=== PATIENT | male | born 1935 | race Caucasian/White ===

== ENCOUNTER 2022-05-08 09:27 | Outpatient (RCR) | payer MEDICARE, OTHER, SELFPAY | END 2022-05-19 23:59 | disposition home or self-care (01) | LOC: CCIC 09:27 | PROVIDERS: PCP Family Medicine; Visit Provider Internal Medicine Hematology & Oncology | DX: D45 Polycythemia vera (principal); C67.9 Malignant neoplasm of bladder, unspecified | CPT/HCPCS: 99212; 99214 ==

== ENCOUNTER 2022-05-30 08:09 | Outpatient (CLI) | payer MEDICARE, OTHER, SELFPAY ==
[2022-05-30 14:01] LABS: Chloride* 105 mmol/L (96-114)
[2022-05-30 14:02] LABS: Albumin* 3.6 g/dL (3.3-5.0); Potassium* 4.9 mmol/L (3.6-5.1); Sodium* 139 mmol/L (135-149)
[2022-05-30 14:04] LABS: Creatinine* 1.1 mg/dL (0.5-1.5); Estimated Glomerular Filt Rate 66 ml/min
[2022-05-30 14:05] LABS: Alanine Aminotransferase* 25 U/L (4-50); Alkaline Phosphatase* 104 U/L (40-150); Aspartate Amino Transferase* 36 U/L (12-35); Bilirubin Total* 0.4 mg/dL (0.1-1.5); Blood Urea Nitrogen* 37 mg/dL (7-30); Calcium* 8.6 mg/dL (8.4-10.6); Carbon Dioxide* 27 mmol/L (20-32); Glucose* 96 mg/dL (60-115); Lactate Dehydrogenase* 739 U/L (313-618)
== END 2022-05-30 08:10 | disposition home or self-care (01) ==
LOC: LKVREF 08:09
PROVIDERS: PCP Family Medicine; Visit Provider Internal Medicine Hematology & Oncology
DX: D45 Polycythemia vera (principal)
CPT/HCPCS: 80053; 83615

== ENCOUNTER 2022-05-31 08:50 | Outpatient (RCR) | payer MEDICARE, OTHER, SELFPAY ==
--- NOTE | 2022-05-30 13:08 | ONC.NURNOTE ---
Noted Hg 7.[address] Edwards today who saw patient in the clinic recommendation for transfusion discussed lasix as patient is currently on 20 mg daily with notable LE edema, O2 sats in his clinic were 90% at rest, history CHF Dr Edwards recommends that he take his lasix in am before coming in for transfusion and bring in a 2nd dose to take after the transfusion Dr Edwards will be contacting patient about changing his current lasix dose orders entered by Rachael Gavin for transfusion tomorrow and lasix to reflect Dr Lopes recommendation This was called to Miesha and mattie made for tomorrow am instructed to take today's dose of lasix and repeat dose again in am before coming for transfusion and to bring a 2nd dose to take after the transfusion Miesha was informed that she would need to manage the urinary catheters while he is here
[2022-05-31 10:11] VITALS: BP 112/52; PULSE 80; TEMP 36.8
[2022-05-31 11:15] VITALS: BP 117/50; PULSE 73; RESP 16; O2SAT 90
[2022-05-31 11:34] VITALS: BP 135/67; PULSE 71; RESP 16; TEMP 36.9; O2SAT 92
[2022-05-31 11:39] VITALS: BP 119/64; PULSE 71; RESP 16; TEMP 36.9
[2022-05-31 12:24] VITALS: BP 129/71; PULSE 71; RESP 16; TEMP 36.9
[2022-05-31 14:15] VITALS: BP 132/68; PULSE 74; RESP 16; TEMP 36.9
[2022-06-06 21:21] LABS: Basophils Absolute Auto 0.06 K/uL (0.00-0.30); Basophils Percent Auto 0.7 % (0.0-3.0); Eosinophils Absolute Auto 0.17 K/uL (0.00-0.50); Eosinophils Percent Auto 2.1 % (0.0-7.0); Hematocrit 30.2 % (37.0-53.0); Hemoglobin* 8.9 gm/dL (13.5-17.5); Immature Granulocytes Abs Auto 0.06 K/uL (0.00-0.30); Lymphocytes Percent Auto 4.5 % (20-44); Mean Corpuscular HGB Conc 30 gm/dL (32-36); Mean Corpuscular Hemoglobin 32 pg (26-34); Mean Corpuscular Volume 107 fL (80-100); Monocytes Percent Auto 4.9 % (0.0-11.0); Neutrophils Percent Auto 87.1 % (42.0-72.0); Platelet Count* 400 K/uL (140-440); RDW Coefficient of Variation % 18.3 % (11.5-15.5); Red Blood Count 2.82 m/uL (4.30-5.90); White Blood Count* 8.23 K/uL (4.50-11.00)
[2022-06-06 21:26] LABS: Slide Review Reflex Yes
[2022-06-06 21:32] LABS: Slide Review Acceptable Review (Acceptable)
--- NOTE | 2022-06-27 10:00 | ONC.NURNOTE ---
Lab results reviewed by Dr Little and called to Miesha no dose changes in Hydrea Hg stable patient saw Dr Edwards yesterday next lab in [facility] for 4 weeks
[2022-08-21 18:22] LABS: Lactate Dehydrogenase* 715 U/L (313-618)
--- NOTE | 2022-09-16 11:34 | ONC.NURNOTE ---
Oncology Transfer: Miesha reports that hospice is not being pursued at this time Miesha wants Henok to continue to follow with cardiology and oncology and states that Henok is doing well Miesha requests to continue with Dr Little as a [place] provider- they currently see other [place] specialists Due for follow up in October and appt made with Dr Allan- and Miesha was informed that Henok will then see Dr Little when he returns for subsequent appts Hydrea will be monitored and refilled as is currently being done at the [facility]
--- NOTE | 2022-10-25 15:00 | ONC.NURNOTE ---
Noted CBC and other labs (per PCP) drawn today Hg 8.1 today with elevated platelets will review with Dr Allan on Friday regarding platelets and hydrea dose confirmed that Henok continues on 1500 mg hydrea/day Henok has a PCP appt on Friday at [facility]- our office will place order for CBC recheck on Friday to be drawn at clinic if Hg is lower and if Henok is symptomatic- will discuss with [facility] provider to order transfusion
--- NOTE | 2022-10-25 16:01 | PC.NURSE ---
Dr. Edwards called back to [facility] in response to CLARA Oliver's VM. was informed that repeat CBC orders were placed and are due to be drawn at his clinic on 10/29/2022. understands. He did inquire about the UA and who the ordering provider was and what the follow-up was for that. RN shared that Dr. Nely William was the ordering provider. will follow-up on those results. CLARA Oliver will follow-up on CBC results next week.
--- NOTE | 2022-10-29 11:21 | ONC.NURNOTE ---
CBC results noted Credit Rating Checker spoke to Miesha: Henok's fatigue has improved since starting on antibiotics on Friday, he does not have any SOB was seen by Dr Edwards today platelets noted will discuss w/provider next lab draw to monitor plts and hg confirmed taking 3 hydrea daily takes a low dose ASA daily will be out of town 11/09/22-11/17/22 Jerry appt 11/19/22
== END 2022-11-27 23:59 | disposition home or self-care (01) ==
LOC: CCIC 08:50
PROVIDERS: PCP Family Medicine; Visit Provider Internal Medicine Hematology & Oncology
DX: D45 Polycythemia vera (principal)
CPT/HCPCS: 36415; 36430; 80048; 83615; 83880; 84439; 84443; 85025; 86850; 86900; 86901; 86922; P9016

== ENCOUNTER 2022-06-06 11:20 | Outpatient (CLI) | payer MEDICARE, OTHER, SELFPAY ==
[2022-06-06 14:00] LABS: Chloride* 99 mmol/L (96-114)
[2022-06-06 14:01] LABS: Potassium* 4.6 mmol/L (3.6-5.1); Sodium* 136 mmol/L (135-149)
[2022-06-06 14:03] LABS: Estimated Glomerular Filt Rate 74 ml/min
[2022-06-06 14:04] LABS: Blood Urea Nitrogen* 29 mg/dL (7-30); Calcium* 8.5 mg/dL (8.4-10.6); Carbon Dioxide* 30 mmol/L (20-32); Glucose* 152 mg/dL (60-115)
== END 2022-06-06 11:21 | disposition home or self-care (01) ==
LOC: LKVREF 11:20
PROVIDERS: PCP Family Medicine; Visit Provider Family Medicine
DX: N18.31 Chronic kidney disease, stage 3a (principal); I50.40 Unspecified combined systolic (congestive) and diastolic (congestive) heart failure; D64.9 Anemia, unspecified
CPT/HCPCS: 80048

== ENCOUNTER 2022-06-19 13:45 | Emergency (ER) | payer MEDICARE, OTHER, SELFPAY ==
[2022-06-19 14:01] VITALS: BP 123/68; PULSE 74; RESP 18; TEMP 36.8; O2SAT 96
--- NOTE | 2022-06-19 14:16 | ED_ITS ---
HPI - General Adult General Time Seen by Provider: 14:16 Date Seen: 06/19/22 Chief complaint: Urogenital Problems, Male Stated complaint: Swollen Penis w Neph Bag Time Seen by Provider: 06/19/22 13:49 Source: patient and family Mode of arrival: ambulatory History of Present Illness HPI narrative: Henok is a 87-year-old male from home past medical history includes recent diagnosis of bladder cancer status post radiation and Villarreal placement, heart failure with preserved ejection fraction, chronic kidney disease stage 3, hypertension diabetes mellitus, polycythemia vera presents emerged department with with a urogenital problem. According to patient and patient had a Villarreal catheter placed last February and was removed on May 20, since then has catheterized him every 6-7 hours, she usually gets 200-300 mL of urine. Patient had a cystoscopy last Friday at [facility], they had a difficulty time forming the cystoscopy and were unable to complete. Patient has had increasing worsening lower extremity edema swelling around the scrotum and penis area. Per she states that it is getting difficult to retract his foreskin due to the edema. She is still able to catheterize him. Swelling is worse during the evening gets better in the morning. Usually takes Lasix 40 mg orally daily. Unsure when his last echocardiogram was. Patient states that his breathing has been stable, he denies any orthopnea, chest pain or shortness of breath. Patient and for concern due to the increasing edema. Related Data Home Medications Medication Instructions Recorded Confirmed acetaminophen 325 mg tablet mg PO PRN 05/08/22 05/08/22 acetaminophen 650 mg 1,300 mg PO BID 05/08/22 05/08/22 tablet,extended release amlodipine 2.5 mg tablet mg PO DAILY 05/08/22 05/08/22 aspirin 81 mg tablet,delayed 81 mg PO QDAY 05/08/22 05/08/22 release (Adult Aspirin Regimen) bupropion HCl 300 mg 24 hr tablet, 300 mg PO DAILY 05/08/22 05/08/22 extended release cholecalciferol (vitamin D3) 50 2,000 unit PO .Every 48 Hours 05/08/22 05/08/22 mcg (2,000 unit) tablet glipizide 10 mg tablet, extended 10 mg PO DAILY 05/08/22 05/08/22 release 24 hr hydroxyurea 500 mg capsule (Hydrea) 1,500 mg PO QDAY 05/08/22 05/08/22 nitroglycerin 0.4 mg sublingual 0.4 mg sublingual PRN 05/08/22 05/08/22 tablet omeprazole 20 mg tablet,delayed 20 mg PO QDAY 05/08/22 05/08/22 release Previous Rx's Medication Instructions Recorded furosemide 20 mg tablet 20 mg PO BID #60 tabs 05/31/22 Allergies Allergy/AdvReac Type Severity Reaction Status Date / Time penicillin V Allergy Unknown Verified 05/30/22 07:56 Beta Best AdvReac Intermediate Bradycardia Uncoded 05/30/22 07:56 Review of Systems Status of ROS: Reports: 10 or more systems reviewed and unremarkable except as noted in History and below [facility] Medical History (Updated 06/19/22 @ 16:24 by Agustin Howard MD) Anemia Back pain Bladder cancer CHF (congestive heart failure) Diabetes Hypertension Polycythemia vera Social History Smoking Status: Never smoker How often do you have a drink containing alcohol: monthly or less AUDIT-C Alcohol total score: 1 Non-prescribed substance use: denies use Exam Narrative: Exam Narrative: General: No obvious distress HEENT: Pupils equal round and reactive to light, no periorbital edema Neck: Supple, no JVD : Lungs mild bibasilar crackles, otherwise normal Heart: Normal sinus rhythm S1-S2 Abdomen: Mildly distended in the lower abdomen, bowel sounds present nontender to palpation, no fluid wave Left flank: Nephrostomy bag in place, draining clear urine Muscle skeletal: +3 pitting edema from his feet to his hips bilateral Urogenital: Increased circumferential edema of the says prepuce, able to retract the foreskin, glans penis normal Scrotum normal Neuro: Alert awake and oriented x3 Const: Vital Signs, click to edit/add: Vital Signs - 24 hr 06/19/22 14:01 06/19/22 15:03 06/19/22 15:15 Temperature 98.2 F Pulse Rate [Right Pulse Oximeter] 74 75 Respiratory Rate 18 24 Blood Pressure [Ri ght Upper Arm] 123/68 137/84 Pulse Oximetry 96 88 96 Oxygen Delivery Me thod Room Air Room Air Nasal Cannula Course Course Hospital Course: 2:30 PM: AIDET performed. Workup will include IV peripheral, CBC, CMP, NT proBNP, XR chest PA and lateral, 20 mg IV Lasix, to look for more worsening heart failure and fluid retention causing his symptoms. Patient and in agreement. No signs of any paraphimosis, symptoms likely due to increased peripheral edema secondary to heart failure. Reevaluation(s) Reevaluation #1: Patient and were updated on his imaging, urinalysis and lab results. XR chest PA and lateral did not show any acute cardiopulmonary process. This was read by myself, hemoglobin stable at 8.0, creatinine normal at 1.0, metabolic panel otherwise unchanged from previous, sodium mildly low at 131. NT proBNP elevated at 4740, consistent with his worsening peripheral edema. He was given IV diuresis 20 mg Lasix and did well, he had good urinary output, his symptoms improved, plan to discharge, followup appointment was made with his primary care provider on 06/21, plan to increase his Lasix 40 mg b.i.d. until that time. Patient's urinalysis was pending, reasons to return were given. vitals were stable on discharge. Time: 16:25 Vital Signs Vital signs: Initial Vital Signs Temperature 98.2 F 06/19/22 14:01 Temperature Source Temporal Artery Scan 06/19/22 14:01 Pulse Rate 74 06/19/22 14:01 Respiratory Rate 18 06/19/22 14:01 Blood Pressure 123/68 06/19/22 14:01 Blood Pressure Mean 86 06/19/22 14:01 Blood Pressure Position Sitting 06/19/22 14:01 Pulse Oximetry 96 06/19/22 14:01 Oxygen Delivery Method 06/19/22 14:01 Vital Signs Temperature 98.2 F 06/19/22 14:01 Pulse Rate 74 06/19/22 14:01 Respiratory Rate 18 06/19/22 14:01 Blood Pressure 123/68 06/19/22 14:01 Pulse Oximetry 96 06/19/22 14:01 Oxygen Delivery Method 06/19/22 14:01 Temperature 98.2 F 06/19/22 14:01 Pulse Rate 75 06/19/22 15:03 Respiratory Rate 24 06/19/22 15:03 Blood Pressure 137/84 06/19/22 15:03 Pulse Oximetry 96 06/19/22 15:15 Oxygen Delivery Method 06/19/22 15:15 Medical Decision Making Lab Data Labs: Lab Results 06/19/22 06/19/22 06/19/22 Range/Units 14:26 14:26 16:05 WBC 7.30 (4.50-11.00) K/uL RBC 2.62 L (4.30-5.90) m/uL Hgb 8.0 L (13.5-17.5) gm/dL Hct 27.2 L (37.0-53.0) % MCV 104 H (80-100) fL MCH 31 (26-34) pg MCHC 29 L (32-36) gm/dL RDW Coeff of Christel 18.0 H (11.5-15.5) % Plt Count 405 (140-440) K/uL Neut % (Auto) 90.2 H (42.0-72.0) % Lymph % (Auto) 3.3 L (20-44) % [place] % (Auto) 3.8 (0.0-11.0) % Eos % (Auto) 1.2 (0.0-7.0) % Baso % (Auto) 0.5 (0.0-3.0) % Neut # (Auto) 6.60 (1.7-7.0) K/uL Lymph # (Auto) 0.20 L (0.90-2.90) K/uL [place] # (Auto) 0.30 (0.00-0.90) K/UL Eos # (Auto) 0.09 (0.00-0.50) K/uL Baso # (Auto) 0.04 (0.00-0.30) K/uL Abs Immat Gran (auto) 0.07 (0.00-0.30) K/uL Sodium 131 L (135-149) mmol/L Potassium 4.6 (3.6-5.1) mmol/L Chloride 98 (96-114) mmol/L Carbon Dioxide 26 (20-32) mmol/L BUN 34 H (7-30) mg/dL Creatinine 1.0 (0.5-1.5) mg/dL Estimated GFR 74 ml/min Glucose 166 H (60-115) mg/dL Calcium 8.2 L (8.4-10.6) mg/dL Total Bilirubin 0.6 (0.1-1.5) mg/dL AST 26 (12-35) U/L ALT 20 (4-50) U/L Alkaline Phosphatase 115 (40-150) U/L NT-Pro-B Natriuret Pep 4740 H (0-450) PG/mL Total Protein 5.9 L (6.0-8.3) g/dL Albumin 3.3 (3.3-5.0) g/dL Urine Color Yellow (Yellow) Urine Appearance Cloudy A (Clear) Urine pH 6.0 (5.0-8.5) Ur Specific [place] 1.015 (1.000-1.030) Urine Protein 1+ A (Negative) Urine Glucose (UA) Negative (Negative) Urine Ketones Negative (Negative) Urine Blood 1+ A (Negative) Urine Nitrite Negative (Negative) Urine Bilirubin Negative (Negative) Urine Urobilinogen 0.2 (0.2-1.0) Ur Leukocyte Esterase 1+ A (Negative) Urine RBC 2-5 A (0-2) Urine WBC 2-5 (0-5) Ur Squamous Epith Cells Few (None-Few) Urine Bacteria Few A (None) Discharge Plan Discharge Clinical Impression: Edema of penis, Bilateral edema of lower extremity, History of CHF (congestive heart failure) Patient Disposition: Home, Self-Care Condition: Improved Instructions: Edema (ED) Additional Instructions: Follow up appointment scheduled at the [facility] on 06/21 with a 9:30am arrival time. To take Lasix 40 mg twice daily until follow up appointment. Activity Level: Activity as Tolerated Prescriptions: No Action nitroglycerin 0.4 mg tablet, sublingual 0.4 mg sublingual PRN hydroxyurea [Hydrea] 500 mg capsule 1,500 mg PO QDAY cholecalciferol (vitamin D3) 50 mcg (2,000 unit) tablet 2,000 unit PO .Every 48 Hours Rx Instructions: EVERY OTHER DAY acetaminophen 650 mg tablet extended release 1,300 mg PO BID omeprazole 20 mg tablet,delayed release (DR/EC) 20 mg PO QDAY aspirin [Adult Aspirin Regimen] 81 mg tablet,delayed release (DR/EC) 81 mg PO QDAY acetaminophen 325 mg tablet PO PRN bupropion HCl 300 mg tablet extended release 24 hr 300 mg PO DAILY amlodipine 2.5 mg tablet PO DAILY glipizide 10 mg tablet extended release 24hr 10 mg PO DAILY furosemide 20 mg tablet 20 mg PO BID Qty: 60 1RF Follow Up/Referrals: Slava Edwards MD [Primary Care Provider] - Stand Alone Forms: [employer] Info Instructions
--- NOTE | 2022-06-19 14:17 | CRLHL7_ITS ---
For Patients: As a result of the Century Cures Act, medical imaging exams and procedure reports are released immediately into your electronic medical record. You may view this report before your referring provider. If you have questions, please contact your health care provider. INDICATION: Worsening heart failure and edema COMPARISON: There are no prior studies for comparison TECHNIQUE: Two views of the chest were acquired FINDINGS: TUBES AND LINES: None. HEART AND MEDIASTINUM: Top normal size cardiac silhouette. LUNGS AND PLEURAL SPACES: No evidence of heart failure. Linear opacities in the right midlung and right base favor atelectasis or scarring over an acute inflammatory process.Probable chronic pleural thickening at the right base. OSSEOUS STRUCTURES: Age-appropriate appearance. No acute focal finding. IMPRESSION: No evidence of heart failure. Opacities in the right midlung and right base favor atelectasis or scarring over an acute inflammatory process. Dictated by Bassam Adams MD @ 06/19/2022 2:49:24 PM (Electronically Signed)
[2022-06-19 14:42] LABS: Basophils Absolute Auto 0.04 K/uL (0.00-0.30); Basophils Percent Auto 0.5 % (0.0-3.0); Eosinophils Absolute Auto 0.09 K/uL (0.00-0.50); Eosinophils Percent Auto 1.2 % (0.0-7.0); Hematocrit 27.2 % (37.0-53.0); Immature Granulocytes Abs Auto 0.07 K/uL (0.00-0.30); Lymphocytes Percent Auto 3.3 % (20-44); Mean Corpuscular HGB Conc 29 gm/dL (32-36); Mean Corpuscular Hemoglobin 31 pg (26-34); Mean Corpuscular Volume 104 fL (80-100); Monocytes Percent Auto 3.8 % (0.0-11.0); Neutrophils Percent Auto 90.2 % (42.0-72.0); Platelet Count* 405 K/uL (140-440); Red Blood Count 2.62 m/uL (4.30-5.90)
[2022-06-19 14:48] LABS: Slide Review Reflex No
[2022-06-19] MEDS: FUROSEMIDE 10 MG/ML inj 20 MG IVP (14:53)
[2022-06-19 15:03] VITALS: BP 137/84; PULSE 75; RESP 24; O2SAT 88
[2022-06-19 15:14] LABS: Albumin* 3.3 g/dL (3.3-5.0); Chloride* 98 mmol/L (96-114); Potassium* 4.6 mmol/L (3.6-5.1); Sodium* 131 mmol/L (135-149)
[2022-06-19 15:15] VITALS: O2SAT 96
[2022-06-19 15:16] LABS: Estimated Glomerular Filt Rate 74 ml/min
[2022-06-19 15:17] LABS: Alanine Aminotransferase* 20 U/L (4-50); Alkaline Phosphatase* 115 U/L (40-150); Aspartate Amino Transferase* 26 U/L (12-35); Bilirubin Total* 0.6 mg/dL (0.1-1.5); Blood Urea Nitrogen* 34 mg/dL (7-30); Carbon Dioxide* 26 mmol/L (20-32); Glucose* 166 mg/dL (60-115); Total Protein* 5.9 g/dL (6.0-8.3)
[2022-06-19 15:18] LABS: Calcium* 8.2 mg/dL (8.4-10.6)
[2022-06-19 15:26] LABS: NT Pro B Type NatriureticPept* 4740 PG/mL (0-450)
--- NOTE | 2022-06-19 15:53 | ED.NURSE ---
pt up to br via wheelchair. pt had bm. did say he peed a small amount but did not get sample. states he does not feel like he needs to be cathed at this time.
--- NOTE | 2022-06-19 15:56 | ED.NURSE ---
1515: pt o2 sats 86-88% RA. states pt has o2 at home but only uses it when he is sob. pt denies sob, pt placed on 1 L o2, sats 96%. pt heartrate decreased to 30's, placed on heart monitor and shows bigemeny. then returned to sr 70's. states it does that. pt asymptomatic. dr. william updated.
--- NOTE | 2022-06-19 16:13 | ED.NURSE ---
Pt voided approx 100mLs into urinal. UA sent to lab.
[2022-06-19 16:21] LABS: Appearance Urine Cloudy (Clear); Bilirubin Urine Negative (Negative); Blood Urine 1+ (Negative); Color Urine Yellow (Yellow); Glucose Urine Negative (Negative); Ketones Urine Negative (Negative); Leukocyte Esterase Urine 1+ (Negative); Nitrite Urine Negative (Negative); Protein Urine 1+ (Negative); Specific Gravity Urine 1.015 (1.000-1.030); Urobilinogen Urine 0.2 (0.2-1.0)
--- NOTE | 2022-06-19 16:34 | ED.NURSE ---
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 states that is getting worse. unable to get 15 FR cath in pt. 12 FR used for 300 cc clear yellow urine. per swelling in penis has improved, no difficulty pushing foreskin back which was having difficulty with.
[2022-06-19 16:35] VITALS: BP 129/78; PULSE 102; O2SAT 90
[2022-06-19 16:39] LABS: Bacteria Urine Few; Squamous Epithelial Cell Urine Few (None-Few)
== END 2022-06-19 16:41 | disposition home or self-care (01) ==
PROVIDERS: Emergency Provider Student in an Organized Health Care Education/Training Program; PCP Family Medicine
DX: N48.89 Other specified disorders of penis (principal); R60.0 Localized edema
CPT/HCPCS: 36415; 71046; 80053; 81003; 81015; 83880; 85025; 87086; 87186; 96374; 99283; 99284; J1940

== ENCOUNTER 2022-06-21 10:05 | Outpatient (CLI) | payer MEDICARE, OTHER, SELFPAY ==
[2022-06-21 14:40] LABS: Chloride* 100 mmol/L (96-114)
[2022-06-21 14:41] LABS: Potassium* 4.5 mmol/L (3.6-5.1); Sodium* 137 mmol/L (135-149)
[2022-06-21 14:43] LABS: Estimated Glomerular Filt Rate 74 ml/min
[2022-06-21 14:44] LABS: Blood Urea Nitrogen* 30 mg/dL (7-30); Calcium* 8.4 mg/dL (8.4-10.6); Carbon Dioxide* 30 mmol/L (20-32); Glucose* 183 mg/dL (60-115)
== END 2022-06-21 10:06 | disposition home or self-care (01) ==
PROVIDERS: PCP Family Medicine; Visit Provider Family Medicine
DX: N39.0 Urinary tract infection, site not specified (principal); I13.0 Hypertensive heart and chronic kidney disease with heart failure and stage 1 through stage 4 chronic kidney disease, or unspecified chronic kidney disease; I50.9 Heart failure, unspecified; N17.9 Acute kidney failure, unspecified; N18.9 Chronic kidney disease, unspecified; D64.9 Anemia, unspecified; E87.1 Hypo-osmolality and hyponatremia; E11.22 Type 2 diabetes mellitus with diabetic chronic kidney disease
CPT/HCPCS: 80048; 87086

== ENCOUNTER 2022-06-27 21:09 | Emergency (ER) | payer MEDICARE, OTHER, SELFPAY ==
[2022-06-27 21:19] VITALS: BP 129/68; PULSE 75; RESP 18; TEMP 37.2; O2SAT 92; BMI 25.4
--- NOTE | 2022-06-27 21:41 | ED.GENADULT ---
HPI - General Adult General Chief complaint: Extremity Pain/Injury, Lower Stated complaint: Groin/leg pain Time Seen by Provider: 06/27/22 21:17 History of Present Illness HPI narrative: This 87-year-old male comes in reporting pain in his left upper in her thigh. This was mild yesterday and he awoke at 4:00 a.m. this morning with rather severe pain. He took methocarbamol and symptoms improved. He ambulated throughout the day with persistent pain but not very intense. Now as evening as coming his pain is intensified. He does not have any injury event or strenuous activity to bring this about. 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 He had radiation in this tumor is shrunk and the flow of urine is restored. He does self-catheterize but denies having any dysuria symptoms. He does not have any abdominal pain or flank pain. He does not report any fevers. Related Data Home Medications Medication Instructions Recorded Confirmed acetaminophen 325 mg tablet mg PO PRN 05/08/22 06/21/22 acetaminophen 650 mg 1,300 mg PO BID 05/08/22 06/27/22 tablet,extended release amlodipine 2.5 mg tablet mg PO DAILY 05/08/22 06/21/22 aspirin 81 mg tablet,delayed 81 mg PO QDAY 05/08/22 06/27/22 release (Adult Aspirin Regimen) bupropion HCl 300 mg 24 hr tablet, 300 mg PO DAILY 05/08/22 06/27/22 extended release cholecalciferol (vitamin D3) 50 2,000 unit PO .Every 48 Hours 05/08/22 06/27/22 mcg (2,000 unit) tablet glipizide 10 mg tablet, extended 10 mg PO DAILY 05/08/22 06/27/22 release 24 hr hydroxyurea 500 mg capsule (Hydrea) 1,500 mg PO QDAY 05/08/22 06/27/22 nitroglycerin 0.4 mg sublingual 0.4 mg sublingual PRN 05/08/22 06/21/22 tablet omeprazole 20 mg tablet,delayed 20 mg PO QDAY 05/08/22 06/27/22 release furosemide 40 mg tablet 40 mg PO BID 06/21/22 06/27/22 finasteride 5 mg tablet mg 06/27/22 methocarbamol 500 mg tablet mg 06/27/22 tamsulosin 0.4 mg capsule mg PO 06/27/22 Previous Rx's Medication Instructions Recorded furosemide 20 mg tablet 20 mg PO BID #60 tabs 05/31/22 sulfamethoxazole 800 1 tab PO BID #14 tabs 06/21/22 mg-trimethoprim 160 mg tablet (Bactrim DS) Allergies Allergy/AdvReac Type Severity Reaction Status Date / Time penicillin V Allergy Unknown Verified 06/27/22 21:22 Beta Best AdvReac Intermediate Bradycardia Uncoded 06/21/22 09:37 Review of Systems Status of ROS: Reports: 10 or more systems reviewed and unremarkable except as noted in History and below Narrative: Constitutional: No fevers, no weight gain or loss. Eyes: No discharge. No vision changes. HENT: No congestion, no sore throat, no ear pain. Cardiovascular: No chest pain, no palpitations. Respiratory: No shortness of breath, no wheezes, no cough. Gastrointestinal: No abdominal pain, no vomiting, no diarrhea. Genitourinary: No dysuria, no hematuria. Musculoskeletal: Normal range of motion. Pain is located in the musculature of the adductors of the left upper leg. Skin: No rashes, no pruritis. Neurological: No dizziness, weakness, sensory change, speech change. Endo/Heme/Allergies: No bruising or bleeding. No polydipsia. Pysch: no suicidality, no anxiety, no insomnia. All other systems reviewed and are negative. [facility] Medical History (Updated 06/27/22 @ 21:50 by Mike Vega MD) Anemia Back pain Bladder cancer CHF (congestive heart failure) Diabetes Hypertension Polycythemia vera Social History Smoking Status: Never smoker How often do you have a drink containing alcohol: monthly or less AUDIT-C Alcohol total score: 1 Non-prescribed substance use: denies use Exam Narrative: Exam Narrative: Constitutional: Well-developed, well-nourished, no acute distress. HEENT: Normocephalic, atraumatic. Neck: Normal range of motion. Nontender. Supple. Heart: Regular. No murmurs. Normal rate. Intact distal pulses. Lungs: Clear to auscultation. No chest discomfort. No wheezes, rhonchi, or rales. Abdomen: Normal bowel sounds. Nontender. No rebound tenderness. No tenderness when palpating over the low abdomen. Genitalia: Deferred. Back: No midline tenderness. Normal range of motion. Extremities: Normal range of motion. No sign of injury. No leg swelling. Tenderness when palpating in the abductors of the left upper leg. No pain or swelling in the inguinal region. Skin: Intact. No rash. Warm. No erythema or pallor. Neurologic: No altered sensation. No weakness. Alert and oriented. Psychiatric: No suicidality. No anxiety or depression. No insomnia. Nursing notes and vitals signs are reviewed. Const: Vital Signs, click to edit/add: Vital Signs - 24 hr 06/27/22 21:19 Temperature 98.9 F Pulse Rate [Right Pulse Oximeter] 75 Respiratory Rate 18 Blood Pressure [Le ft Upper Arm] 129/68 Pulse Oximetry 92 Oxygen Delivery Me thod Room Air Course Vital Signs Vital signs: Initial Vital Signs Temperature 98.9 F 06/27/22 21:19 Temperature Source Temporal Artery Scan 06/27/22 21:19 Pulse Rate 75 06/27/22 21:19 Respiratory Rate 18 06/27/22 21:19 Blood Pressure 129/68 06/27/22 21:19 Blood Pressure Mean 88 06/27/22 21:19 Blood Pressure Position Supine 06/27/22 21:19 Pulse Oximetry 92 06/27/22 21:19 Oxygen Delivery Method 06/27/22 21:19 Vital Signs Temperature 98.9 F 06/27/22 21:19 Pulse Rate 75 06/27/22 21:19 Respiratory Rate 18 06/27/22 21:19 Blood Pressure 129/68 06/27/22 21:19 Pulse Oximetry 92 06/27/22 21:19 Oxygen Delivery Method 06/27/22 21:19 Temperature 98.9 F 06/27/22 21:19 Pulse Rate 75 06/27/22 21:19 Respiratory Rate 18 06/27/22 21:19 Blood Pressure 129/68 06/27/22 21:19 Pulse Oximetry 92 06/27/22 21:19 Oxygen Delivery Method 06/27/22 21:19 Medical Decision Making MDM Narrative Medical decision making narrative: This patient comes in with pain in the musculature of his left upper leg as described above. He does not have any flank pain or abdominal pain. He does not have any signs of dysuria. There was no particular injury event or strenuous activity to bring this about. He is not exhibiting signs or symptoms suspicious for a blood clot. He is not on any anticoagulants. I discussed lab and imaging options with the patient and his and in a process of shared decision making these were declined. He did receive a intramuscular injection of morphine 10 mg. I did also provide a prescription for [place] tablets. I describe signs and symptoms that would indicate a need for return and re-evaluation. Discharge Plan Discharge Clinical Impression: Left leg pain Patient Disposition: Home, Self-Care Condition: Stable Additional Instructions: Take medication as needed and indicated. Follow up with MD or return if persistent or worsening symptoms happen. Prescriptions: No Action nitroglycerin 0.4 mg tablet, sublingual 0.4 mg sublingual PRN hydroxyurea [Hydrea] 500 mg capsule 1,500 mg PO QDAY cholecalciferol (vitamin D3) 50 mcg (2,000 unit) tablet 2,000 unit PO .Every 48 Hours Rx Instructions: EVERY OTHER DAY acetaminophen 650 mg tablet extended release 1,300 mg PO BID omeprazole 20 mg tablet,delayed release (DR/EC) 20 mg PO QDAY aspirin [Adult Aspirin Regimen] 81 mg tablet,delayed release (DR/EC) 81 mg PO QDAY acetaminophen 325 mg tablet PO PRN bupropion HCl 300 mg tablet extended release 24 hr 300 mg PO DAILY amlodipine 2.5 mg tablet PO DAILY glipizide 10 mg tablet extended release 24hr 10 mg PO DAILY furosemide 40 mg tablet 40 mg PO BID sulfamethoxazole-trimethoprim [Bactrim DS] 800-160 mg tablet 1 tab PO BID Qty: 14 0RF methocarbamol 500 mg tablet Label Comments: TAKE 1 TABLET BY MOUTH 4 TIMES DAILY NEEDED tamsulosin 0.4 mg capsule PO Label Comments: TAKE 1 CAPSULE BY MOUTH ONCE DAILY finasteride 5 mg tablet Label Comments: TAKE 1 TABLET BY MOUTH ONCE DAILY furosemide 20 mg tablet 20 mg PO BID Qty: 60 1RF Follow Up/Referrals: Slava Edwards MD [Primary Care Provider] - Stand Alone [email or web address] Info Instructions
[2022-06-27] MEDS: MORPHINE 10 MG/ML inj IM (21:48)
[2022-06-27 22:00] VITALS: BP 124/66
== END 2022-06-27 22:30 | disposition home or self-care (01) ==
PROVIDERS: Emergency Provider Emergency Medicine Emergency Medical Services; PCP Family Medicine
DX: M79.652 Pain in left thigh (principal)
CPT/HCPCS: 96372; 99283; 99284; J2270

== ENCOUNTER 2022-07-12 10:10 | Outpatient (CLI) | payer MEDICARE, SELFPAY ==
[2022-07-12 12:40] LABS: Chloride* 102 mmol/L (96-114); Sodium* 136 mmol/L (135-149)
[2022-07-12 12:43] LABS: Blood Urea Nitrogen* 31 mg/dL (7-30); Carbon Dioxide* 27 mmol/L (20-32); Estimated Glomerular Filt Rate 74 ml/min
[2022-07-12 12:44] LABS: Calcium* 8.6 mg/dL (8.4-10.6); Glucose* 205 mg/dL (60-115)
[2022-07-16 09:44] LABS: Lactate Dehydrogenase* 653 U/L (313-618)
== END 2022-07-12 10:11 | disposition home or self-care (01) ==
LOC: LKVREF 10:12
PROVIDERS: PCP Family Medicine; Visit Provider Family Medicine
DX: E87.1 Hypo-osmolality and hyponatremia (principal); E87.5 Hyperkalemia; I10 Essential (primary) hypertension; N17.9 Acute kidney failure, unspecified; N18.9 Chronic kidney disease, unspecified
CPT/HCPCS: 80048; 83615

== ENCOUNTER 2022-07-31 10:07 | Inpatient (IN) | payer MEDICARE, OTHER, SELFPAY ==
[2022-07-31] VITALS (23 sets, daily range): BP systolic 78–124; BP diastolic 55–106; PULSE 35–82; RESP 16–25; TEMP 36.2–36.7; O2SAT 23–96; BMI 25.4; BMI 27.5
--- NOTE | 2022-07-31 11:03 | ED.GENADULT ---
HPI - General Adult General Time Seen by Provider: 11:04 Date Seen: 07/31/22 Chief complaint: Arrhythmia/Palpitations Stated complaint: Low heartrate Time Seen by Provider: 07/31/22 11:00 Source: patient and RN notes reviewed Mode of arrival: ambulatory Limitations: no limitations History of Present Illness HPI narrative: Patient is an 87-year-old male that was nauseated, short of breath and a low pulse in the 20s to 30s since yesterday. His states that the been having problems with his heart not functioning well and his pulse going anywhere from low to high. She believes this is a complication of the COVID vaccination. She reports he had COVID infection in November and was hospitalized here. They discovered bladder cancer during that hospitalization. He was treated with radiation at [facility] in February for this. He did go home in November with supplemental oxygen after COVID but really has not had to use it since February. He is on Lasix daily, she will sometimes give him an extra 20 mg tablets when she starts notice seen fluid development in the scrotum and penis. She states she started to notice that today. He was complaining of being more short of breath today, noticed seen fluid overload and then stated his stomach did not feel as well. This bothered her. He has had no vomiting. He denies any abdominal pain. He admits that he is feeling short of breath today. At home his pulse was in the 20s and his oxygen was in the 80s. He is in the low 80s to mid 80s on oximetry on arrival here. Denies any chest pain. Related Data Home Medications Medication Instructions Recorded Confirmed acetaminophen 325 mg tablet 650 mg PO PRN 05/08/22 07/15/22 acetaminophen 650 mg 1,300 mg PO BID 05/08/22 07/15/22 tablet,extended release amlodipine 2.5 mg tablet 2.5 mg PO DAILY 05/08/22 07/31/22 aspirin 81 mg tablet,delayed 81 mg PO QDAY 05/08/22 07/31/22 release (Adult Aspirin Regimen) bupropion HCl 300 mg 24 hr tablet, 300 mg PO DAILY 05/08/22 07/31/22 extended release cholecalciferol (vitamin D3) 50 2,000 unit PO .Every 48 Hours 05/08/22 07/31/22 mcg (2,000 unit) tablet glipizide 10 mg tablet, extended 10 mg PO DAILY 05/08/22 07/31/22 release 24 hr nitroglycerin 0.4 mg sublingual 0.4 mg sublingual PRN 05/08/22 07/15/22 tablet omeprazole 20 mg tablet,delayed 20 mg PO QDAY 05/08/22 07/15/22 release finasteride 5 mg tablet 5 mg 06/27/22 07/15/22 methocarbamol 500 mg tablet mg 06/27/22 07/15/22 tamsulosin 0.4 mg capsule 0.4 mg PO 06/27/22 07/15/22 Previous Rx's Medication Instructions Recorded furosemide 20 mg tablet 20 mg PO BID #60 tabs 07/15/22 hydroxyurea 500 mg capsule (Hydrea) 1,500 mg PO QDAY #300 caps 07/17/22 Allergies Allergy/AdvReac Type Severity Reaction Status Date / Time penicillin V Allergy Unknown Verified 07/31/22 10:38 Beta Best AdvReac Intermediate Bradycardia Uncoded 07/15/22 10:49 Review of Systems Status of ROS: Reports: 10 or more systems reviewed and unremarkable except as noted in History and below [facility] Medical History Anemia Back pain Bladder cancer CHF (congestive heart failure) 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 Depression (08/29/11) Diabetes Gout Hearing loss (08/29/11) Hydronephrosis of left kidney Hypertension Hyponatremia Ischemic cardiomyopathy Left hand paresthesia Lightheadedness Major depressive disorder in partial remission Mass of urinary bladder 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 Sundowning Type 2 diabetes mellitus Unsteady gait UTI (urinary tract infection) Wide-complex tachycardia Social History Highest level of school completed/degree received: 12th grade, no diploma Smoking Status: Never smoker Do you use any of these nicotine containing products: None Second hand tobacco smoke exposure: No How often do you have a drink containing alcohol: monthly or less How many standard drinks containing alcohol do you have on a typical day: 1 or 2 How often do you have six or more drinks on one occasion: Never AUDIT-C Alcohol total score: 1 Non-prescribed substance use: denies use Caffeine: Yes (1 pop) service: No Exam Const: Vital Signs, click to edit/add: Vital Signs - 24 hr 07/31/22 11:15 07/31/22 11:30 07/31/22 11:45 Temperature Pulse Rate [Right Pulse Oximeter] 79 73 Pulse Rate [Right Radial] Respiratory Rate 24 23 Blood Pressure [Ri ght Arm] Blood Pressure [Ri ght Upper Arm] 96/70 119/60 Pulse Oximetry 84 L 94 23 L Oxygen Delivery Me thod Room Air Room Air 07/31/22 12:00 07/31/22 12:38 07/31/22 12:50 Temperature Pulse Rate [Right Pulse Oximeter] 82 80 80 Pulse Rate [Right Radial] Respiratory Rate 22 22 21 Blood Pressure [Ri ght Arm] Blood Pressure [Ri ght Upper Arm] 113/55 L 122/106 H 119/74 Pulse Oximetry 95 80 L 95 Oxygen Delivery Me thod Room Air Room Air Room Air 07/31/22 13:00 07/31/22 13:07 07/31/22 16:22 Temperature 97.2 F L Pulse Rate [Right Pulse Oximeter] 78 71 Pulse Rate [Right Radial] 39 L Respiratory Rate 25 H 22 22 Blood Pressure [Ri ght Arm] 124/65 Blood Pressure [Ri ght Upper Arm] 78/58 L 115/62 Pulse Oximetry 96 95 95 Oxygen Delivery Me thod Room Air Room Air Room Air 07/31/22 13:30 07/31/22 14:00 07/31/22 14:30 Temperature Pulse Rate [Right Pulse Oximeter] 38 L 78 39 L Pulse Rate [Right Radial] Respiratory Rate 22 22 Blood Pressure [Ri ght Arm] Blood Pressure [Ri ght Upper Arm] 107/91 H 114/87 122/94 H Pulse Oximetry 95 93 95 Oxygen Delivery Me thod 07/31/22 15:00 07/31/22 16:55 07/31/22 17:00 Temperature Pulse Rate [Right Pulse Oximeter] 38 L Pulse Rate [Right Radial] Respiratory Rate 20 22 Blood Pressure [Ri ght Arm] Blood Pressure [Ri ght Upper Arm] 120/70 Pulse Oximetry 92 95 95 Oxygen Delivery Me thod Room Air Documenting provider has reviewed patient's vital signs: yes Common normals: no apparent distress, average body habitus, oriented x3, no limitations and alert General appearance: cooperative, comfortable, well kempt and frail appearing HENMT: Common normals: normocephalic, head/scalp atraumatic, hearing grossly normal bilaterally (Does have hearing aid), external ears normal, external nose normal, nasal mucous membranes and turbinates normal, moist oral mucous membranes, oropharynx normal, dentition normal and gingiva normal Head and scalp: normocephalic and atraumatic Nose: external nose normal and nasal mucous membranes and turbinates normal External ear: external ears normal Eye: Common normals: PERRL, EOMs intact bilaterally, conjunctivae normal and no scleral icterus Conjunctiva: conjunctiva(e) normal Pupil: PERRL Neck & C-Spine: Common normals: full ROM, no lymphadenopathy, supple, no meningeal signs and thyroid normal Thyroid: thyroid normal Resp: Common normals: normal respiratory effort, no retractions, no use of accessory muscles and clear to auscultation bilaterally Auscultation: clear to auscultation bilaterally Cardio: Common normals: regular rhythm, S1 normal heart sound, S2 normal heart sound, no gallops and no clicks Rate: bradycardic Rhythm: regular rhythm Heart sounds: S1 normal and S2 normal Other: By the time I am examining him, his pulse rate is back to normal in the 70s on the monitor, is showing it in the 70s is nursing staff had him hooked up to cardiac monitoring by that time. However, clinically he still sounds slow. Subsequent EKG looks to be a bigeminy rhythm and likely is responsible for the pulse in the 70s to 80s, perfusing pulse is under 40s by my review. GI: Common normals: Normal to inspection, nondistended, normoactive bowel sounds present, soft to palpation, non-tender, no hepatosplenomegaly and no masses Palpation: soft and no hepatosplenomegaly Extremity: Common normals: full ROM, normal capillary refill, no joint enlargement and no calf tenderness Other: Has about 1 to 2+ pre tibial pitting edema Neuro: Common normals: oriented x3, moves all extremities, no focal motor deficits and no sensory deficits noted Sensorium/orientation: alert Meningeal signs: no meningeal signs Psych: Appearance: well kempt Skin: Narrative: Has some scarring on his face from presumed previous skin cancer removal. No acute lesions or rashes. Course Course Hospital Course: We will have him on cardiac monitoring and pulse oximetry. We did need to give supplemental oxygen 2 L. he has Terence-tachy arrhythmias. He does seem like he is in congestive heart failure. Will get appropriate labs, portable chest x-ray, continue monitoring him on pulse oximetry and cardiac monitoring. It sounds as if they have maybe seen Cardiology at [facility] as well as [place]. I have reviewed with patient and his that the bed status is extremely tenuous throughout [facility]. It is my understanding that [facility] took a recent cardiac patient from us. I did work yesterday and there was truly no availability but will certainly contact places once we have more information. Reevaluation(s) Reevaluation #1: Patient's heart rate still remains low, 30s to 40s on auscultation. Monitor is still showing bigeminy. He is sitting up, does not feel short of breath with the oxygen on. He certainly is in some right heart failure. Will give him 20 mg IV Lasix, his did confirm she gave him 40 oral this morning. ProBNP is elevated at 6000 range. Unfortunately there are no beds in the [facility] system, the [facility] system, [facility], [facility], [facility], no further beds at [facility], thus I am going to try to talk to Cardiology at [facility] per his 's request. Will also confirm that they have looked at [facility] system as well. Time: 13:02 Consultations Consultation #1: Flora ELIZABETH at [facility] has taken a consult request for cardiology. We did fax down EKGs, sent labs and chest x-ray. Did hear back from Dr. Ortiz at 1:48 p.m. from Cardiology. 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 He has a known nonischemic cardiomyopathy. They are able to wait list him as they have no beds at this point. Will put him in our hospital but she requests that if he is decompensating that we let her know so that they can try to accommodate him quicker. She states their CCU beds are quite tight at this point as well. He does not need CCU at this time but we will let her know if it is changing. I have subsequently talked to our hospitalist Dr. Hopson. She will assume care in the interim until [facility] is ready to accept this patient. I will subsequently be letting the patient and his know. Will also check on his urine output status after the IV Lasix. Time: 13:09 Vital Signs Vital signs: Initial Vital Signs Temperature 97.5 F L 07/31/22 10:28 Temperature Source Temporal Artery Scan 07/31/22 10:28 Pulse Rate 39 L 07/31/22 10:28 Respiratory Rate 16 07/31/22 10:28 Blood Pressure 118/55 L 07/31/22 10:28 Blood Pressure Mean 76 07/31/22 10:28 Blood Pressure Position Sitting 07/31/22 10:28 Pulse Oximetry 85 L 07/31/22 10:28 Oxygen Delivery Method 07/31/22 10:28 Vital Signs Temperature 97.5 F L 07/31/22 10:28 Pulse Rate 39 L 07/31/22 10:28 Respiratory Rate 16 07/31/22 10:28 Blood Pressure 118/55 L 07/31/22 10:28 Pulse Oximetry 85 L 07/31/22 10:28 Oxygen Delivery Method 07/31/22 10:28 Temperature 97.6 F 08/01/22 07:00 Pulse Rate 67 08/01/22 07:51 Respiratory Rate 20 08/01/22 07:00 Blood Pressure 118/96 H 08/01/22 07:00 Pulse Oximetry 93 08/01/22 11:00 Oxygen Delivery Method 08/01/22 11:00 Oxygen Flow Rate 2 08/01/22 11:00 Medical Decision Making Lab Data Lab results reviewed: Yes I reviewed the patient's lab results Labs: Lab Results 07/31/22 07/31/22 07/31/22 Range/Units 11:26 11:35 11:35 WBC 8.07 (4.50-11.00) K/uL RBC 2.63 L (4.30-5.90) m/uL Hgb 8.0 L (13.5-17.5) gm/dL Hct 27.4 L (37.0-53.0) % MCV 104 H (80-100) fL MCH 30 (26-34) pg MCHC 29 L (32-36) gm/dL RDW Coeff of Christel 19.7 H (11.5-15.5) % Plt Count 490 H (140-440) K/uL Neut % (Auto) 90.1 H (42.0-72.0) % Lymph % (Auto) 4.3 L (20-44) % Mcculloch % (Auto) 3.7 (0.0-11.0) % Eos % (Auto) 0.9 (0.0-7.0) % Baso % (Auto) 0.5 (0.0-3.0) % Neut # (Auto) 7.30 H (1.7-7.0) K/uL Lymph # (Auto) 0.30 L (0.90-2.90) K/uL Mcculloch # (Auto) 0.30 (0.00-0.90) K/UL Eos # (Auto) 0.07 (0.00-0.50) K/uL Baso # (Auto) 0.04 (0.00-0.30) K/uL Abs Immat Gran (auto) 0.04 (0.00-0.30) K/uL Diff Slide Review Acceptable Review (Acceptable) VBG pH (7.32-7.43) VBG pCO2 (40-50) mmHG VBG pO2 (25-47) mmHG VBG HCO3 (21-28) mmol/L Sodium 136 (135-149) mmol/L Potassium 4.7 (3.6-5.1) mmol/L Chloride 101 (96-114) mmol/L Carbon Dioxide 25 (20-32) mmol/L BUN 45 H (7-30) mg/dL Creatinine 1.4 (0.5-1.5) mg/dL Estimated Creat Clear 38.58 Estimated GFR 49 ml/min Glucose 157 H (60-115) mg/dL Lactate (0.5-1.9) mmol/L Calcium 8.8 (8.4-10.6) mg/dL Magnesium 2.0 (1.5-2.6) mg/dL Total Bilirubin 0.6 (0.1-1.5) mg/dL AST 22 (12-35) U/L ALT 23 (4-50) U/L Alkaline Phosphatase 132 (40-150) U/L C-Reactive Protein < 0.5 L (0.5-1.0) mg/dL NT-Pro-B Natriuret Pep 6600 H (0-450) PG/mL Total Protein 6.3 (6.0-8.3) g/dL Albumin 4.0 (3.3-5.0) g/dL SARS-CoV-2 (PCR) Negative SARS-CoV-2 (Negative) Influenza Type A (PCR) Negative PCR FLU A (Negative) Influenza Type B (PCR) Negative PCR FLU B (Negative) RSV (PCR) Negative PCR RSV (Negative) POC Troponin I (0.01-0.04) ng/ml 07/31/22 07/31/22 Range/Units 11:35 11:35 WBC (4.50-11.00) K/uL RBC (4.30-5.90) m/uL Hgb (13.5-17.5) gm/dL Hct (37.0-53.0) % MCV (80-100) fL MCH (26-34) pg MCHC (32-36) gm/dL RDW Coeff of Christel (11.5-15.5) % Plt Count (140-440) K/uL Neut % (Auto) (42.0-72.0) % Lymph % (Auto) (20-44) % Mcculloch % (Auto) (0.0-11.0) % Eos % (Auto) (0.0-7.0) % Baso % (Auto) (0.0-3.0) % Neut # (Auto) (1.7-7.0) K/uL Lymph # (Auto) (0.90-2.90) K/uL Mcculloch # (Auto) (0.00-0.90) K/UL Eos # (Auto) (0.00-0.50) K/uL Baso # (Auto) (0.00-0.30) K/uL Abs Immat Gran (auto) (0.00-0.30) K/uL Diff Slide Review (Acceptable) VBG pH 7.389 (7.32-7.43) VBG pCO2 45 (40-50) mmHG VBG pO2 54.3 H (25-47) mmHG VBG HCO3 27 (21-28) mmol/L Sodium (135-149) mmol/L Potassium (3.6-5.1) mmol/L Chloride (96-114) mmol/L Carbon Dioxide (20-32) mmol/L BUN (7-30) mg/dL Creatinine (0.5-1.5) mg/dL Estimated Creat Clear Estimated GFR ml/min Glucose (60-115) mg/dL Lactate 1.7 (0.5-1.9) mmol/L Calcium (8.4-10.6) mg/dL Magnesium (1.5-2.6) mg/dL Total Bilirubin (0.1-1.5) mg/dL AST (12-35) U/L ALT (4-50) U/L Alkaline Phosphatase (40-150) U/L C-Reactive Protein (0.5-1.0) mg/dL NT-Pro-B Natriuret Pep (0-450) PG/mL Total Protein (6.0-8.3) g/dL Albumin (3.3-5.0) g/dL SARS-CoV-2 (PCR) (Negative) Influenza Type A (PCR) (Negative) Influenza Type B (PCR) (Negative) RSV (PCR) (Negative) POC Troponin I 0.01 (0.01-0.04) ng/ml Imaging Data Chest x-ray: Attestation: I have reviewed the pertinent imaging results. My impression: A my preliminary review, no acute infiltrate or congestive heart failure seen. Await Radiology over-read. Radiologist's impression: Patient: BLAKE SUTTON Facility:?[facility] Patient ID:?[id number] Site Patient ID:?[id number]. Site :?[id number] Study:?XRay Chest -07/31/2022 11:48:31 AM Ordering Physician:Kong Gomez Final Report: INDICATION: Low heart rate TECHNIQUE: Chest 1 view COMPARISON: 06/19/2022 FINDINGS: Cardiovascular and mediastinum: Cardiac silhouette enlarged. Tortuosity aorta. Central pulmonary vessels are similar. Lungs and pleural spaces: Stable scarring within the left lung base and right midlung zone. No acute infiltrate. No acute CHF or pleural effusion. No pneumothorax. Bones and soft tissues: Degenerative changes. IMPRESSION: No acute findings. Dictated by Luis Miguel Beaver MD @ 07/31/2022 12:04:41 PM (Electronic Signature) ECG Data Attestation: I personally reviewed and interpreted this ECG as follows: (Two EKGs reviewed, sinus bradycardia in a bigeminy, heart rate under 40. QT corrected 490 milliseconds and 486 milliseconds on these EKGs. ) Prior ECG tracings: not available for review Critical Care Time Critical Care Time Critical Care Time: No Discharge Plan Discharge Clinical Impression: Congestive heart failure, Bradycardia Patient Disposition: Admitted As Inpatient Condition: Unchanged
--- NOTE | 2022-07-31 11:26 | CRLHL7_ITS ---
For Patients: As a result of the Cures Act, medical imaging exams and procedure reports are released immediately into your electronic medical record. You may view this report before your referring provider. If you have questions, please contact your health care provider. INDICATION: Low heart rate TECHNIQUE: Chest 1 view COMPARISON: 06/19/2022 FINDINGS: Cardiovascular and mediastinum: Cardiac silhouette enlarged. Tortuosity aorta. Central pulmonary vessels are similar. Lungs and pleural spaces: Stable scarring within the left lung base and right midlung zone. No acute infiltrate. No acute CHF or pleural effusion. No pneumothorax. Bones and soft tissues: Degenerative changes. IMPRESSION: No acute findings. Dictated by Luis Miguel Beaver MD @ 07/31/2022 12:04:41 PM (Electronically Signed)
--- OUTSIDE RECORDS SUMMARY | 2022-07-31 11:32 | XMS_ITS | Encounter Summary ---
:1935 Author Organization [facility] Address [address] [place] [id number] Care Team Providers Name Role Phone Elsewhere, Pcp Primary Care Provider Unavailable Reason for Visit Outpatient (Routine) - Closed Specialty Diagnoses / Procedures Referred By Contact Refer red To Contact Diagnoses Malignant Neoplasm Of Bladder (HCC) Claude Loaiza, [facility], [facility] Procedures Cystoscopy (specific provider) P.AJluis-C. [address] [place] [phone] Referral ID Status Reason Start Date Expiration Date Visits Requ ested Visits Authorized [id number] Closed 06/14/2022 06/14/2023 1 1 Encounter Details Date Type Department Care Team Description 06/14/2022 Procedure visit Department of Urology Gibran Ruvalcabaant Neoplasm Of in Jj Batista M.D. Bladder (HCC) [place] [address] [facility] [id number] [phone] Social History Tobacco Use Types Packs/Day Years Used Date Smoking Tobacco: Never Smokeless Tobacco: Never Alcohol Use Standard Drinks/Week Comments Defer 0 (1 standard drink = 0.6 oz pure alcoho l) Alcohol Habits Answer Date Recorded How often do you have a drink containing alcohol? Monthly or less 05/17/2022 How many drinks containing alcohol do you have on a Patient refused 05/17/2022 typical day when you are drinking? How often do you have six or more drinks on one Patient refu sed 05/17/2022 occasion? Comment: Not asked Social Isolation Answer Date Recorded In a typical week, how many times do you More than three alcides es a week 05/17/2022 talk on the phone with family, friends, or neighbors? How often do you get together with friends Three times a wee k 05/17/2022 or relatives? How often do you attend nondenominational or Patient refused 2021 orthodox services? Do you belong to any clubs or No 05/17/2022 organizations such as nondenominational groups, [employer], [employer] or athletic groups, or school groups? How often do you attend meetings of the Patient refused 05/17/2022 clubs or organizations you belong to? Are you now , , , 05/17/2022 , never or living with a partner? Physical Activity Answer Date Recorded On average, how many days per week do you engage in moderate to 0 days 05/17/2022 strenuous exercise (like walking fast, running, jogging, dancing, swimming, biking, or other activities that cause a light or heavy sweat)? On average, how many minutes do you engage in exercise at th is 0 min 05/17/2022 level? Stress Answer Date Recorded Do you feel stress - tense, restless, nervous, or Only a lit tle 05/17/2022 anxious, or unable to sleep at night because your mind is troubled all the time - these days? Intimate Partner Violence Answer Date Recorded Within the last year, have you been afraid of your partner o r No 05/17/2022 ex-partner? Within the last year, have you been humiliated or emotionall y No 05/17/2022 abused in other ways by your partner or ex-partner? Within the last year, have you been kicked, hit, slapped, or No 05/17/2022 otherwise physically hurt by your partner or ex-partner? Within the last year, have you been raped or forced to have any No 05/17/2022 kind of sexual activity by your partner or ex-partner? Food Insecurity Answer Date Recorded Within the past 12 months, you worried that your food would Never true 05/17/2022 run out before you got money to buy more. Within the past 12 months, the food you bought just didn't N ever true 05/17/2022 last and you didn't have money to get more. Transportation Needs Answer Date Recorded In the past 12 months, has lack of transportation kept No 05/17/2022 you from medical appointments or from getting medications? In the past 12 months, has lack of transportation kept Patie nt refused 05/17/2022 you from meetings, work, or getting things needed for daily living? Housing Stability Answer Date Recorded In the last 12 months, was there a time when you were Patien t refused 05/17/2022 not able to pay the mortgage or rent on time? In the last 12 months, how many places have you lived? 1 05/17/2022 In the last 12 months, was there a time when you did No 05/17/2022 not [address] to sleep or slept in a care home (including now)? Education Answer Date Recorded What is the highest level of school you have completed or 12 th grade 05/17/2022 the highest degree you have received? 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 [address] [place] [phone] (Octavio christensen) 08/20/2022 Appointment Radiology Claude Loaiza MPAS, P.A.-C. [address] [place] [address] [phone] (Octavio christensen) 08/22/2022 Virtual Visit Urology Gibran Ruvalcaba M.D. [address] [place] [address] [phone] (Octavio christensen) documented as of this encounter Procedures Procedure Name Priority Date/Time Associated Comments Diagnosis AR INJ ANTEGRD Routine 06/14/2022 2:29 PM Malignant Neoplasm R esults for this NFROSGRM&/URTGRM CDT Of Bladder (HCC) procedu re are in EXIST the results section. URO CYSTOSCOPY Routine 06/14/2022 2:29 PM Malignant Neoplasm R esults for this (SPECIFIC PROVIDER) CDT Of Bladder (HCC) proc edure are in the results section. documented in this encounter Results URO Nephrostogram (06/14/2022 2:29 PM CDT) Specimen (Source) Anatomical Location Collection Method / Collectio n Time Received Time / Laterality Volume Narrative Gibran Ruvalcaba M.D. - 06/14/2022 2: 50 PM CDT Gibran Ruvalcaba M.D. ? 06/14/2022 ??2:53 PM URO Nephrostogram Date/Time: 06/14/2022 2:50 PM Performed by: Gibran Ruvalcaba M.D. Authorized by: Claude Loaiza MPAS, P.A.-C. Claude ZELAYA, P.A.-C. UROLOGY ORDERABLES Cystoscopy (specific provider) (06/14/2022 2:29 PM CDT) Specimen (Source) Anatomical Location Collection Method / Collectio n Time Received Time / Laterality Volume Narrative Gibran Ruvalcaba M.D. - 06/14/2022 2: 53 PM CDT Gibran Ruvalcaba M.D. ? 06/14/2022 ??2:55 PM Cystoscopy (specific provider) Date/Time: 06/14/2022 2:53 PM Performed by: Gibran Ruvalcaba M.D. Authorized by: Claude Loaiza MPAS, P.A.-C. Claude ZELAYA, P.A.-C. UROLOGY ORDERABLES documented in this encounter Visit Diagnoses Diagnosis Malignant Neoplasm Of Bladder (HCC) Malignant Neoplasm Of Bladder (HCC) - Pr imary documented in this encounter Care Teams Civil Litigation Attorney Relationship Specialty Start Date End Date Elsewhere, Pcp PCP - General Internal Medicine 01/14/22 documented as of this encounter
--- OUTSIDE RECORDS SUMMARY | 2022-07-31 11:32 | XMS_ITS | Encounter Summary ---
:1935 [address] [facility] Address [address] [place] [address] Care Team Providers Name Role Phone Elsewhere, Pcp Primary Care Provider Unavailable Encounter Details Date Type Department Care Team Description 05/17/2022 Hospital Encounter Department of Armida Botello nephrosis; Laboratory Medicine L, FRANCHISE SALES MANAGER, Malignhema t Neoplasm Of Bladder (HCC) and Pathology, C.N.P., [facility] [address] [place] [address] [place] [phone] [place], [place] [phone] (Work) [phone] Social History Tobacco Use Types Packs/Day Years Used Date Smoking Tobacco: Never Smokeless Tobacco: Never Alcohol Habits Answer Date Recorded How often [...] or relatives? How often do you attend religion or Patient refused 2021 worship services? Do you belong to any clubs or No 05/17/2022 organizations such as religion groups, unions, fraternal or athletic groups, or school groups? How [...] place to sleep or slept in a alf (including now)? Education Answer Date Recorded What is the highest level of school you have completed or 12 th grade 05/17/2022 the highest degree you have received? 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 aspirin [address] tablet Take 1 tablet by 0 2015 mouth daily. buPROPion XL (WELLBUTRIN Take 300 mg by mouth 0 XL) 300 mg 24 hr tablet daily. cholecalciferol (VITAMIN Take 50 mcg by mouth 0 D3) 50 mcg (2,000 Unit) daily. tablet furosemide (LASIX) 20 mg Take 40 mg by mouth 0 tablet 2 (two) times a day. glipiZIDE (GLUCOTROL XL) 10 Take 10 mg by mouth 0 mg 24 hr tablet daily with breakfast. hydroxyurea (HYDREA) 500 mg Take 3-4 capsules by mouth daily. 1500 mg on Fri- 0 10/27/2017 capsule 2000 mg on Fri-Fri lisinopriL Take 2.5 mg by mouth 0 (PRINIVIL,ZESTRIL) 2.5 mg daily. tablet methocarbamol (ROBAXIN) 750 TAKE 1 TO 2 TABLETS 3 06/04/2019 mg tablet BY MOUTH EVERY 6 TO 8 HOURS NEEDED FOR MUSCLE SPASM nitroglycerin (NITROSTAT) Place 0.4 mg under 0 0.4 mg SL tablet the tongue every 5 (five) minutes as needed for chest pain. omeprazole (PriLOSEC) 20 mg Take 1 capsule by 0 0 02/12/2016 capsule mouth daily. trospium (SANCTURA) 20 mg Take 1 tablet (20 mg 30 tablet 0 02/22/2022 tablet total) by mouth 2 (two) times a day as needed (bladder spasms). documented as of this encounter Plan of Treatment Upcoming Encounters Date Type Specialty Care Team Description 08/20/2022 Appointment Radiology Claude Loaiza MPAS, P.A.-C. [address] [place], [place] [phone] (Wo rk) 08/20/2022 Appointment Radiology Claude Loaiza MPAS, P.A.-C. [address] [place], [place] [phone] (Wo rk) 08/22/2022 Virtual Visit Urology Gibran Ruvalcaba M.D. [address] [place], [place] [phone] (Wo rk) documented as of this encounter Procedures Procedure Name Priority Date/Time Associated Comments Diagnosis CREATININE WITH Routine 05/17/2022 3:02 PM Hydronephrosi s Results for this EGFR, S/P CDT Malignant Neoplasm procedure are in Of Bladder (HCC) the results section. documented in this encounter Results (ABNORMAL) Creatinine with Estimated GFR (05/17/2022 3:02 PM CDT) athologist Signature Creatinine 1.30 0.74 - 05/17/2022 DTL 1.35 mg/dL 4:03 PM CDT eGFR-Non 50 (L) >=60 05/17/2022 DTL Black/ mL/min/BSA 4:03 PM CDT [place] Islander Comment: ----ADDITIONAL INFORMATION---- Estimated GFR calculated using the 2009 CKD_EPI creatinine equation. eGFR-Black/ 58 (L) >=60 mL/min/BSA 2021 4:03 PM CDT DTL Comment: ----ADDITIONAL INFORMATION---- Estimated GFR calculated using the 2009 CKD_EPI creatinine equation. Specimen Anatomical Collection Method Collection Time Receive d Time (Source) Location / / Volume Laterality Blood (Blood, 05/17/2022 3:02 PM 05/17/20 3:43 Venous) CDT PM CDT Armida Botello APRN, C.N.P., D.N.P. LAB BLOOD ADD-ON Performing Organization Address City/State/ZIP Code Phon e Number [facility] - [address] [place], [place] [address] [facility] [place] [address] [facility] [address] documented in this encounter Visit Diagnoses Diagnosis Hydronephrosis Malignant Neoplasm Of Bladder (HCC) documented in this encounter Care Teams Advertising Sales Manager Relationship Specialty Start Date End Date Elsewhere, Pcp PCP - General Internal Medicine 01/14/22 documented as of this encounter
--- OUTSIDE RECORDS SUMMARY | 2022-07-31 11:32 | XMS_ITS | Encounter Summary ---
:1935 Author Organization [facility] Address [address] [place] [address] Care Team Providers Name Role Phone Elsewhere, Pcp Primary Care Provider Unavailable Reason for Referral Outpatient (Routine) - Closed Specialty Diagnoses / Procedures Referred By Contact Refer red To Contact Radiology Diagnoses Malignant Neoplasm Of Bladder (HCC) Nura David IV [facility] Procedures IR Nephrostomy Tube Exchange Left M.D. 200 [place], [place] [phone] Referral ID Status Reason Start Date Expiration Date Visits Requ ested Visits Authorized [id number] Closed 02/22/2022 02/22/2023 1 1 Reason for Visit Outpatient (Routine) - Closed Specialty Diagnoses / Procedures Referred By Contact Refer red To Contact Radiology Diagnoses Malignant Neoplasm Of Bladder (HCC) Nura David IV [facility] Procedures IR Nephrostomy Tube Exchange Left M.D. 200 [place], [place] [phone] Referral ID Status Reason Start Date Expiration Date Visits Requ ested Visits Authorized [id number] Closed 02/22/2022 02/22/2023 1 1 Encounter Details Date Type Department Care Team Description 05/20/2022 Hospital Encounter Department of Fr diana David IV, M.D. 200 [place] [phone] Malignant Neoplasm Radiology in Bryon Wu M.D., Ph.D. [address] [place] [phone] Of Bladder (HCC) [place], [place] [address] [place] [phone] Social History Tobacco Use Types Packs/Day Years Used Date Smoking Tobacco: Never Smokeless Tobacco: Never Tobacco Cessation: Counseling Given: Not Answered Alcohol Use Standard Drinks/Week Comments Defer 0 [...] or relatives? How often do you attend confucianism or Patient refused 2021 hindu services? Do you belong to any clubs or No 05/17/2022 organizations such as confucianism groups, unions, fraternal or athletic groups, or [...] place to sleep or slept in a halfway (including now)? Education Answer Date Recorded What is the highest level of school you have completed or 12 th grade 05/17/2022 the highest degree you have received? 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 1500 mg on Fri-Th 0 10/27/2017 capsule 2000 mg on Fri-Fri omeprazole (PriLOSEC) 20 mg Take 1 capsule by 0 0 02/12/2016 capsule mouth daily. lisinopriL Take 2.5 mg by mouth 0 (PRINIVIL,ZESTRIL) 2.5 mg daily. tablet methocarbamol (ROBAXIN) 750 TAKE 1 TO 2 TABLETS 3 06/04/2019 mg tablet BY MOUTH EVERY 6 TO 8 HOURS NEEDED FOR MUSCLE SPASM nitroglycerin (NITROSTAT) Place 0.4 mg under 0 0.4 mg SL tablet the tongue every 5 (five) minutes as needed for chest pain. trospium (SANCTURA) 20 mg Take 1 tablet (20 mg 30 tablet 0 02/22/2022 tablet total) by mouth 2 (two) times a day as needed (bladder spasms). documented as of this encounter Procedure Notes Bryon Wu M.D., Ph.D. - 05/20/2022 1:49 PM CDT PATIENT DISPOSITION Return to Outpatient Unit for recovery. Discharge patient when discharge criteria met. POST-PROCEDURE DIAGNOSIS Left nephrostomy tube exchange PROCEDURE PERFORMED AND DESCRIPTION Routine exchange 10F left percutaneous nephrostomy tube. Drain to gravity bag drainage. Routine exchange in 10-12 weeks. PROCEDURE DETAILS See Radiology Report SPECIMENS REMOVED Prior 10F tube in entirety FINDINGS See Report PRIMARY PROCEDURALIST Bryce ASSISTANTS None COMPLICATIONS None. DRAINS None. IMPLANTS None. ANESTHESIA Moderate Sedation. FLUIDS See MAR ESTIMATED BLOOD LOSS <5ml CURRENT MEDICATIONS No Medication Changes FOLLOW-UP LETTER None. MAY RETURN TO WORK Not applicable PATIENT INSTRUCTIONS For your next scheduled appointment documented in this encounter Plan of Treatment Upcoming Encounters Date Type Specialty Care Team Description 08/20/2022 Appointment Radiology Claude Loaiza MPAS, P.A.-C. [address] [place] [phone] (Octavio christensen) 08/20/2022 Appointment Radiology Claude Loaiza MPAS, P.A.-C. [address] [place] [phone] (Octavio christensen) 08/22/2022 Virtual Visit Urology Gibran Ruvalcaba M.D. [address] [place] [phone] (Octavio christensen) documented as of this encounter Procedures Procedure Name Priority Date/Time Associated Comments Diagnosis IR NEPHROSTOMY TUBE RAD - Routine 05/20/2022 12:46 Malignant Res ults for this EXCHANGE LEFT (most inpatients PM CDT Neoplasm Of procedure are in and all Bladder (HCC) the results outpatients) section. documented in this encounter Results IR Nephrostomy Tube Exchange Left (05/20/2022 12:46 PM CDT) Anatomical Region Laterality Modality Genito Urinary, Vascular Interventional RST LOS, Left X-Ray Angiography Vascular Interventional ARZ LOS, Vascular Interventional FLA LOS Specimen (Source) Anatomical Collection Method Collection Time Re ceived Time Location / / Volume Laterality 05/20/2022 4:28 PM CDT Impressions 05/20/2022 5:48 PM CDT Routine exchange 10 Croatian left percutaneous nephrostomy tube. Drain to gravity bag drainage. Routine exchange in 10-12 week s. NR Narrative 05/20/2022 5:48 PM CDT EXAM: IR NEPHROSTOMY TUBE EXCHANGE LEFT CLINICAL HISTORY: 86-year-old male with left nephrostomy tube placed on 02/18/2022. Patient presents for first exchange. TECHNIQUE: Patient placed prone on the f luoroscopy table. Left flank and nephrostomy tube prepped and draped in sterile fashion. 1% lidoca ine used for local anesthesia. Fluoroscopic bank and savings securities trader image demonstrates unchanged position of the l eft 10 Croatian percutaneous nephrostomy tube. Injection of contrast demonstrated a locking loop wit hin the markedly dilated left renal pelvis with high-grade narrowing at the left UPJ. Drain removed in its entirety over a guidewire and a new 10 Croatian locking loop catheter advanced with lock ing loop formed in the left renal pelvis. Completion left nephrostogram demonstrated satisfactory position and function. Drain secured to skin with 2-0 Prolene anchor suture and connected to g ravity bag drainage. Sterile dressing applied. No immediate complication. PREPROCEDURE: Patient seen, evaluated, h istory reviewed, and approved for sedation. Airway, heart, and lung exam satisfactory for sedation. Discussed risks, benefits, alternatives for procedure, and/or sedation. The roles and responsib ilities of care team members, residents, and fellows were discussed. Patient understands informati on and questions answered. Informed consent obtained from the patient. Immediately prior to starti ng the procedure, in the presence of the assisting personnel, a procedural pause was conduc kathleen to verify correct patient identity and verification of procedure to be performed, and as applic able, correct side and site, correct patient position, availability of implants, special equipm ent, or special requirements, and all image and specimen identification data. INTRAPROCEDURE: Moderate sedation was ad ministered by sedation nurse under my supervision. The patient was continuously monitored with real time oxygen saturation, heart rate, ECG rhythm strip and blood pressure throughout administra tion of the sedation and performance of the procedure. The total intra-procedural sedation time was : 5 minutes. Estimated blood loss: minimal.. Procedure Note Bryon Wu M.D., Ph.D. - 022 EXAM: IR NEPHROSTOMY TUBE EXCHANGE LEFT CLINICAL HISTORY: 86-year-old male with left nephrostomy tube placed on 02/18/2022. Patient presents for first exchange. TECHNIQUE: Patient placed prone on the f luoroscopy table. Left flank and nephrostomy tube prepped and draped in sterile fashion. 1% lidoca ine used for local anesthesia. Fluoroscopic bank and savings securities trader image demonstrates unchanged position of the l eft 10 Croatian percutaneous nephrostomy tube. Injection of contrast demonstrated a locking loop wit hin the markedly dilated left renal pelvis with high-grade narrowing at the left UPJ. Drain removed in its entirety over a guidewire and a new 10 Croatian locking loop catheter advanced with lock ing loop formed in the left renal pelvis. Completion left nephrostogram demonstrated satisfactory position and function. Drain secured to skin with 2-0 Prolene anchor suture and connected to g ravity bag drainage. Sterile dressing applied. No immediate complication. PREPROCEDURE: Patient seen, evaluated, h istory reviewed, and approved for sedation. Airway, heart, and lung exam satisfactory for sedation. Discussed risks, benefits, alternatives for procedure, and/or sedation. The roles and responsib ilities of care team members, residents, and fellows were discussed. Patient understands informati on and questions answered. Informed consent obtained from the patient. Immediately prior to starti ng the procedure, in the presence of the assisting personnel, a procedural pause was conduc kathleen to verify correct patient identity and verification of procedure to be performed, and as applic able, correct side and site, correct patient position, availability of implants, special equipm ent, or special requirements, and all image and specimen identification data. INTRAPROCEDURE: Moderate sedation was ad ministered by sedation nurse under my supervision. The patient was continuously monitored with real time oxygen saturation, heart rate, ECG rhythm strip and blood pressure throughout administra tion of the sedation and performance of the procedure. The total intra-procedural sedation time was : 5 minutes. Estimated blood loss: minimal.. IMPRESSION: Routine exchange 10 Croatian left percutan eous nephrostomy tube. Drain to gravity bag drainage. Routine exchange in 10-12 week s. NR Nura David IV, M.D. IMJunie IR PROCEDURES documented in this encounter Visit Diagnoses Diagnosis Malignant Neoplasm Of Bladder (HCC) documented in this encounter Administered Medications Inactive Administered Medications - up to 3 most recent administrations Medication Order MAR Action Action Date Dose Rate Site ciprofloxacin in D5W IVPB 400 New Bag 05/20/2022 12:16 PM 400 mg 200 mL/hr mg (CIPRO) CDT 400 mg, intravenous, at 200 mL/hr, Administer over 60 Minutes, Once, On Fri05/20/22 at 1145, For 1 dose, Preprocedure (RAD), Administer within 2 hours prior to surgical incision, Drug Monitoring Program: Pharmacist to adjust medication dosing based on indication and drug clearance factors., Indications: Prophylaxis, surgical fentaNYL injection 25 mcg (SUBLIMAZE) Given 05/20/2022 12:41 PM CDT 25 mcg 25 mcg, intravenous, Every 2 min PRN, sedation, Administer over 1 minute immediately prior to the procedure. May repeat every 2 minutes to a maximum of 200 mcg, until pain score of 3 or less, or until the patient meets the pain comfort goal, or RASS 0 to -2. Do not give if respiratory rate is less than 8 breaths/minute., Starting on Fri05/20/22 at 1231, Intraprocedure (RAD) iohexoL 300 mg iodine/mL solution (OMNIP AQUE) Given 05/20/2022 12:42 PM CDT 20 mL Code/trauma/sedation medication, Starting on Fri05/20/22 at 1242 lidocaine-sodium bicarbonate (buffered) Given 05/20/2022 12:44 P M CDT 3 mL 0.9%-8.4% injection infiltration, Code/trauma/sedation medication, Starting on Fri05/20/22 at 1244 metroNIDAZOLE in NaCl (iso-osm) New Bag 05/20/2022 12:45 PM CD T 500 mg 200 mL/hr IVPB 500 mg (FLAGYL) 500 mg, intravenous, at 200 mL/hr, Administer over 30 Minutes, Once, On Fri05/20/22 at 1145, For 1 dose, Intraprocedure (RAD), Administer within 1 hour prior to surgical incision, Indications: Prophylaxis, surgical midazolam (PF) injection 0.5 mg (VERSED) Given 05/20/2022 12:40 PM CDT 0.5 mg 0.5 mg, intravenous, Every 2 min PRN, sedation, RASS -1, Starting on Fri05/20/22 at 1231, Intraprocedure (RAD), May repeat every 2 minutes for a maximum of 5 mg. Do not give if respiratory rate is less than 8 breaths/minute. documented in this encounter Active and Recently Administered Medications Times are shown in CDT. Scheduled Medication Order 05/18/2022 05/19/2022 05/20/2022 ciprofloxacin in D5W IVPB 400 mg (CIPRO) (COMPLETED) 1216 (New Bag - Provider: Ramonita Bell R.N.) 400 mg, intravenous, at 200 mL/hr, Admin ister over 60 Minutes, Once, On Fri05/20/22 at 1145, For 1 dose, Preprocedure (RAD), Administer within 2 hours prior to surgical incision, Drug Monitoring Program: Pharmacist to adjust medication dosing based on indication and drug clearance factors., Indications: Prophylaxis, surgical metroNIDAZOLE in NaCl (iso-osm) IVPB 500 mg (FLAGYL) (COMPLETED) 1245 (New Bag - Provider: Bhavana Chow R.N.) 500 mg, intravenous, at 200 mL/hr, Admin ister over 30 Minutes, Once, On Fri05/20/22 at 1145, For 1 dose, Intraprocedure (RAD), Administer within 1 hour prior to surgical incision, Indications: Prophylaxis, surgical PRN Medication Order 05/18/2022 05/19/2022 05/20/2022 fentaNYL injection 25 mcg (SUBLIMAZE) (CANCELED) 1241 (Given - Provider: Bhavnaa Chow R.N.) 25 mcg, intravenous, Every 2 min PRN, se dation, Administer over 1 minute immediately prior to the procedure. May repeat every 2 minutes to a maximum of 200 mcg, until pain score of 3 or less, or until t he patient meets the pain comfort goal, or RASS 0 to -2. Do not give if respiratory rate is less than 8 breaths/minute., Starting on Fri05/20/22 at 1231, Intraprocedure (RAD) iohexoL 300 mg iodine/mL solution (OMNIPAQUE) (COMPLETED) 1242 (Given - Provider: Bryon Wu M.D., Ph.D.) Code/trauma/sedation medication, Starting on Fri05/20/22 at 1242 lidocaine-sodium bicarbonate (buffered) 0.9%-8.4% injection (COM PLETED) 1244 (Given - Provider: Bryon Wu M.D., Ph.D.) infiltration, Code/trauma/sedation medication, Starting on Fri at 1244 midazolam (PF) injection 0.5 mg (VERSED) (CANCELED) 1240 (Given - Provider: Bhavana Chow R.N.) 0.5 mg, intravenous, Every 2 min PRN, se dation, RASS -1, Starting on Fri05/20/22 at 1231, Intraprocedure (RAD), May repeat every 2 minutes for a maximum of 5 mg. Do not give if respiratory rate is less than 8 breaths/minute. documented in this encounter Care Teams Soda Dispenser Relationship Specialty Start Date End Date Elsewhere, Pcp PCP - General Internal Medicine 01/14/22 documented as of this encounter
--- OUTSIDE RECORDS SUMMARY | 2022-07-31 11:32 | XMS_ITS ---
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 Past Plans No past plan information found. Radiation Treatments Plan Last Treated Elapsed Days Fractions Prescribed Prescribed Total On Treated Fraction Dose Dose [id number] 04/19/2022 17 6 of 6 600 cGy 3,600 cGy Reference Point Last Treated On Elapsed Days Session Dose Total Dos e [id number] 04/19/2022 17 600 cGy 3,600 cGy Lifetime Dose Tracking Chemical Lifetime Dose Automatic Entry Manual Entry Radiation 58.28 mGy 58.28 mGy 0 mGy Fluoro Time 3.3 minutes 3.3 minutes 0 minutes DAP (uGy-m2) 625.85 uGy-m2 625.85 uGy-m2 0 uGy-m2
--- OUTSIDE RECORDS SUMMARY | 2022-07-31 11:32 | XMS_ITS | Encounter Summary ---
:1935 Author Organization [facility] Address [address] [place] [address] Care Team Providers Name Role Phone Elsewhere, Pcp Primary Care Provider Unavailable Reason for Visit Reason Comments Appointment Cancelled Encounter Details Date Type Department Care Team Description 05/21/2022 Clinical Communication Department of Adonay Klein Urology in Bassam Ayala M.D. Cancelled [address] [place] [phone] [employer], [place] [phone] (Work) [phone] Social History Tobacco Use Types Packs/Day Years [...] or relatives? How often do you attend presybeterian or Patient refused 2021 baptist services? Do you belong to any clubs or No 05/17/2022 organizations such as presybeterian groups, unions, fraternal or athletic groups, or [...] place to sleep or slept in a fdc (including now)? Education Answer Date Recorded What is the highest level of school you have completed or 12 th grade 05/17/2022 the highest degree you have received? 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 They received a text message saying Mr. Chery missed an appointment on 05/17/22. Patient's said education for cath was provided at the cath appt at 1:15 and nurse told them they did not need to return at 3:30 for the education appointment and it would be cancelled. documented in this encounter Plan of Treatment Upcoming Encounters Date Type Specialty Care Team Description 08/20/2022 Appointment Radiology Claude Loaiza MPAS, P.A.-C. [address] [place] [phone] (Octavio christensen) 08/20/2022 Appointment Radiology Claude Loaiza MPAS, P.A.-C. [address] [place] [phone] (Octavio christensen) 08/22/2022 Virtual Visit Urology Gibran Ruvalcaba M.D. [address] [place] [phone] (Octavio christensen) documented as of this encounter Visit Diagnoses Not on filedocumented in this encounter Care Teams Resp Therapist Relationship Specialty Start Date End Date Elsewhere, Pcp PCP - General Internal Medicine 01/14/22 documented as of this encounter
--- OUTSIDE RECORDS SUMMARY | 2022-07-31 11:32 | XMS_ITS | Encounter Summary ---
:1935 Author Organization [facility] Address [address] [place] [address] Care Team Providers Name Role Phone Elsewhere, Pcp Primary Care Provider Unavailable Reason for Referral Outpatient (Routine) - Authorized Specialty Diagnoses / Procedures Referred By Contact Refer red To Contact Urology Claude Loaiza M PAS, P.A.-C. [facility] [address] [place] [address] Referral ID Status Reason Start Date Expiration Date Visits V isits Requested Authorized [id number] Authorized 06/14/2022 06/13/2025 1 1 Scheduling Instructions Phone visit to discuss results of CTU an d follow up RI/CAT/PET Scan (Routine) - Authorized Specialty Diagnoses / Procedures Referred By Contact Refer red To Contact Radiology Diagnoses Malignant Neoplasm Of Bladder (HCC) Claude Loaiza MPAS, [facility] Procedures CT Urogram without and with IV Contrast PBe. [address] [place] [address] Referral ID Status Reason Start Date Expiration Date Visits V isits Requested Authorized [id number] Authorized 06/14/2022 06/14/2023 1 1 utpatient (Routine) - Authorized Specialty Diagnoses / Procedures Referred By Contact Refer red To Contact Radiology Diagnoses Malignant Neoplasm Of Bladder (HCC) Claude Loaiza MPAS, [facility] Procedures IR Nephrostomy Tube Check Left P.A.-C. [address] [place] [phone] Referral ID Status Reason Start Date Expiration Date Visits V isits Requested Authorized [id number] Authorized 06/14/2022 06/14/2023 1 1 Reason for Visit Outpatient (Routine) - Closed Specialty Diagnoses / Procedures Referred By Contact Refer red To Contact Diagnoses Malignant Neoplasm Of Bladder (HCC) Claude Loaiza MPAS, [facility] Procedures Cystoscopy (specific provider) P.A.-C. [address] [place] [address] Referral ID Status Reason Start Date Expiration Date Visits Requ ested Visits Authorized [id number] Closed 06/14/2022 06/14/2023 1 1 Encounter Details Date Type Department Care Team Description 06/14/2022 Procedure visit Department of Urology Gibran Ruvalcaba Neoplasm [place] Bladder (HCC) (Primary [place] [address] [facility] Dx) [address] [place] [id number] Social History Tobacco Use Types Packs/Day Years [...] or relatives? How often do you attend anabaptist or Patient refused 2021 quaker services? Do you belong to any clubs or No 05/17/2022 organizations such as anabaptist groups, unions, fraternal or athletic groups, or [...] place to sleep or slept in a jail (including now)? Education Answer Date Recorded What is the highest level of school you have completed or 12 th grade 05/17/2022 the highest degree you have received? 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 - 06/14/2022 1:30 PM CDT Patient was seen for a cystoscopy procedure. Cystoscope CYF-VH #[id number] was used during today's cystoscopy procedure. Accessories used: cystoscope reusable (sterilized) stop cock Load number from processing via [employer]: [id number] With Nephrostogram and urethral dilation, consent was obtained. documented in this encounter Procedure Notes Gibran Ruvalcaba M.D. - 06/14/2022 1:30 PM CDTAssociated Order(s): URO Nephrostogram Pre-Procedure Diagnose(s): Malignant Neoplasm Of Bladder (HCC) URO Nephrostogram Date/Time: 06/14/2022 2:50 PM Performed by: Gibran Ruvalcaba M.D. Authorized by: Claude Loaiza, [facility]. Performed a left nephrostogram. Instilled easily contrast into the point where the patient felt ???full. There was not any antegrade flow thus we waited 5 minutes and an additional 5 for total of 10 minutes still do not see any antegrade flow. He did not have any discomfort during this time So I did give the option of leaving the capped and returning in an hour versus hooking the neph bag back and the latter was chosen. I have asked my team to schedule a exchange of the neph tube and attempt another nephrostogram in approximately 3 months. He does not need to see us at the time and we can communicate via phone rather than making them an additional appointment/trip/visit. Periprocedural antibiotics provided Gibran Ruvalcaba M.D. - 06/14/2022 1:30 PM CDTAssociated Order(s): Cystoscopy (specific provider) Pre-Procedure Diagnose(s): Malignant Neoplasm Of Bladder (HCC) Cystoscopy (specific provider) Date/Time: 06/14/2022 2:53 PM Performed by: Gibran Ruvalcaba M.D. Authorized by: Claude Loaiza MPAS, P.A.-C. Attempted cystoscopy. Place appropriate gel. 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 I took the meatal dilator almost to the hub with some discomfort and tried to Repass the flexible scope in the would not traverse. I did give the option of using some urethral sounds and the family elected not to proceed. They will continue with the same CIC regimen and hopefully the prostate medical therapy could help with some spontaneous voiding. Follow up p.r.n. with this documented in this encounter Plan of Treatment Upcoming Encounters Date Type Specialty Care Team Description 08/20/2022 Appointment Radiology Claude Loaiza MPAS, P.A.-C. [address] [place], [place] [phone] ([place] ) 08/20/2022 Appointment Radiology Claude Loaiza MPAS, P.A.-C. [address] [place], [place] [phone] ([facility]) 08/22/2022 Virtual Visit Urology Gibran Ruvalcaba M.D. [address] [place], [place] [phone] ( rk) Scheduled Orders Name Type Priority Associated Order Schedule Diagnoses IR Nephrostomy Tube Imaging RAD - Routine (most Malignant Neop lasm Expected: Check Left inpatients and all Of Bladder (HCC) 08/20, outpatients) Expires: 09/14/2023 CT Urogram without Imaging RAD - Routine (most Malignant Neopl asm Expected: and with IV Contrast inpatients and all Of Bladder (HC C) 08/20/2022, outpatients) Expires: 09/14/2023 Scheduled Referrals Name Type Priority Associated Diagnoses Order [facility] Urology office Outpatient Referral Routine Expect ed: visit (clinic) 08/22/2022 (Approximate), Expires: 09/14/2023 documented as of this encounter Procedures Procedure Name Priority Date/Time Associated Comments Diagnosis URO CYSTOSCOPY Routine 06/14/2022 2:29 PM Malignant Neoplasm R esults for this (SPECIFIC PROVIDER) CDT Of Bladder (HCC) proc edure are in the results section. NE INJ ANTEGRD Routine 06/14/2022 2:29 PM Malignant Neoplasm R esults for this NFROSGRM&/URTGRM CDT Of Bladder (HCC) procedu re are in EXIST the results section. 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
--- OUTSIDE RECORDS SUMMARY | 2022-07-31 11:32 | XMS_ITS | Clinical Summary ---
:1935 Author Organization [facility] Address [address] [place] [id number] Care Team Providers Name Role Phone Elsewhere, Pcp Primary Care Provider Unavailable Source Comments Patient records contain information from all sites at [facility]. For routine questions regarding patient records, call [phone] during business hours, M-F 8:00 AM - 5:00 PM Central Time. Record requests for emergency care only can be directed to [phone] at any time.[facility] Allergies Active Allergy Reactions Severity Noted Date Comments Beta-Blockers Other (see comments) 12/27/2021 Bradyc ardia (Beta-Adrenergic Blocking Agts) Penicillins Anaphylaxis, Other (see High 05/24/2015 comments) Medications Medication Sig Dispensed Refills Start Date End Date Status aspirin [address] tablet Take 1 tablet by 0 6 Active mouth daily. hydroxyurea (HYDREA) Take 3-4 capsules by mouth daily. 1500 mg on - 0 10/27/2017 Active 500 mg capsule 2000 mg on Fri-Fri omeprazole (PriLOSEC) Take 1 capsule 0 02/12/2016 Active 20 mg capsule by mouth daily. methocarbamol (ROBAXIN) TAKE 1 TO 2 3 06/04/2019 Active 750 mg tablet TABLETS BY MOUTH EVERY 6 TO 8 HOURS NEEDED FOR MUSCLE SPASM glipiZIDE (GLUCOTROL Take 10 mg by 0 Active XL) 10 mg 24 hr tablet mouth daily with breakfast. lisinopriL Take 2.5 mg by 0 Acti ve (PRINIVIL,ZESTRIL) 2.5 mouth daily. mg tablet cholecalciferol Take 50 mcg by 0 Active (VITAMIN D3) 50 mcg mouth daily. (2,000 Unit) tablet amLODIPine (NORVASC) Take 2.5 mg by 0 Active 2.5 mg tablet mouth daily. furosemide (LASIX) 20 Take 40 mg by 0 Active mg tablet mouth 2 (two) times a day. nitroglycerin Place 0.4 mg 0 Act giles (NITROSTAT) 0.4 mg SL under the tongue tablet every 5 (five) minutes as needed for chest pain. buPROPion XL Take 300 mg by 0 Ac tive (WELLBUTRIN XL) 300 mg mouth daily. 24 hr tablet trospium (SANCTURA) 20 Take 1 tablet 30 tablet 0 02/22/2022 Active mg tablet (20 mg total) by mouth 2 (two) times a day as needed (bladder spasms). tamsulosin (FLOMAX) 0.4 Take 1 capsule 90 capsule 3 06/14/2022 Active mg 24 hr capsule (0.4 mg total) by mouth daily. finasteride (PROSCAR) 5 Take 1 tablet (5 90 tablet 3 2 Active mg tablet mg total) by mouth daily. 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 Julia Murguia M.D. 07/01/2022 Clinical Urology Gibran Ruvalcaba Communication Ashtyn aGrdner 06/19/2022 Clinical Urology Gibran Ruvalcaba Communication Ashtyn Gardner 06/14/2022 Procedure visit Urology Gibran Ruvalcaba Malignant Ne oplasm Of Ashtyn Gardner Bladder (HCC) (Primary Dx) 06/14/2022 Procedure visit UrologGibran Ash Malignant Ne oplasm Of Ashtyn Gardner Bladder (HCC) 06/14/2022 Comprehensive Visit Urology Gibran Ruvalcaba Malignhema t Neoplasm Of Ashtyn Gardner Bladder (HCC) (Primary Dx) 06/03/2022 Procedure visit Urology Rosmery, Stricture Ur ethral Postoperative Male (Primary Dx); Armida Dubois APRN, Hydronephrosi s; C.N.P., D.N.P. Malignant Neoplasm Of Bladder (HCC) Lo Sewell APRN, C.N.P., D.N.P. 05/23/2022 Hospital Encounter Radiology Rosmery, Hydroneph rosis Armida Dubois APRN, C.N.P., D.N.P. 05/21/2022 Clinical Urology Ernie, Appointment Can celled Communication Bassam Ayala M.D. 05/20/2022 Hospital Encounter Radiology Frankie, Malignant Neoplasm Of Nura A IV, Bladder (HCC) Bryon Romo M.D., Ph.D. 05/20/2022 Orders Only Urology Frankie, Malignant Neopl asm Of Nura A IV, Bladder ([facility]) Ashtyn (Primary Dx) 05/17/2022 Hospital Encounter Laboratory Rosmery, Hydroneph rosis; Medicine Armida Dubois APRN, Malignant Polo plasm Of Bladder (HCC) C.N.P., D.N.P. 05/17/2022 Hospital Encounter Laboratory Rosmery, Hydroneph rosis; Medicine Armida Dubois APRN, Malignant Polo plasm Of Bladder (HCC) C.N.P., D.N.P. 05/17/2022 Procedure visit Urology Rosmery, Hydronephros is; Armida Dubois APRN, Malignant Polo plasm Of Bladder (HCC); C.N.P., D.N.P. Retention Urinary Lalita Dewitt, R.N. 05/17/2022 Office Visit Urology Ernie, Malignant Neopl asm Of Bladder (HCC) (Primary Dx); Bassam Ayala M.D. 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 05/02/2022 Clinical Radiology Dori, Corbin Layton, R.N. from Last 3 Months Social History Tobacco Use Types Packs/Day Years [...] or relatives? How often do you attend sikhism or Patient refused 2021 zoroastrianism services? Do you belong to any clubs or No 05/17/2022 organizations such as sikhism groups, unions, fraternal or athletic groups, or [...] place to sleep or slept in a senior care (including now)? Education Answer Date Recorded What is the highest level of school you have completed or 12 th grade 05/17/2022 the highest degree you have received? 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 Last Filed Vital Signs Vital Sign Reading Time Taken Comments Blood Pressure 98/54 07/02/2022 9:23 AM CDT Pulse 89 07/02/2022 9:38 AM CDT Temperature 36.9 ??C (98.4 ??F) 07/02/2022 8:57 AM CDT Respiratory Rate 26 07/02/2022 9:38 AM CDT Oxygen Saturation 88% 07/02/2022 9:38 AM baseline pe r pt and CDT family Inhaled Oxygen - - Concentration Weight 77.3 kg (170 lb 6.7 07/02/2022 7:23 AM oz) CDT Height 175.3 cm (5' 9.02) 02/19/2022 11:16 AM CDT Body Mass Index 25.15 02/19/2022 11:16 AM CDT Plan of Treatment Upcoming Encounters Date Type Specialty Care Team Description 08/20/2022 Appointment Radiology Claude Loaiza, GARCIA, P.A.-C. [address] [place], [place] [phone] (Wo rk) 08/20/2022 Appointment Radiology Claude Loaiza MPAS P.A.-C. [address] [place], [place] [phone] (Wo rk) 08/22/2022 Virtual Visit Urology Gibran Ruvalcaba M.D. [address] [place], [place] [phone] (Wo rk) Health Maintenance Due Date Last Done Comments Diabetic Office Visit with Foot 1935 Exam Dilated Eye Exam 1935 Hemoglobin A1C 1935 Office Visit for Blood Pressure 1935 Check / Re-check Urine Albumin 1935 Pneumococcal vaccine (65+ years) 1941 (1 - PCV) Zoster Vaccines (1 of 2) 03/30/2014 02/02/2014 DTaP,Tdap,and Td Vaccines (1 - 12/08/2019 12/07/2019 Tdap) COVID-19 Vaccine (3 - Moderna risk 03/09/2021 02/09/2021, 0 01/10/2021 series) Depression Screening (Annual 10/20/2021 PHQ-2) Influenza Vaccine (#1) 2022 07/26/2019, 07/20/2018, 07/15/2017, Additional history exists Potassium Level 02/22/2023 02/22/2022, 02/21/2022, 02/20/2022, Additional history exists Sodium Level 02/22/2023 02/22/2022, 02/21/2022, 02/20/2022, Additional history exists Creatinine Level 05/17/2023 05/17/2022, 02/22/2022, 02/21/2022, Additional history exists Fall Risk Screen (Annual) Completed 07/02/2022 Procedures Procedure Name Priority Date/Time Associated Diagnosis Comme nts IR NEPHROSTOMY RAD - Routine 07/02/2022 8:44 Malignant Neoplasm Res ults for TUBE EXCHANGE LEFT (most inpatients AM CDT Of Bladder ( HCC) this procedure and all Hydronephrosis are in the outpatients) results section. ID INJ ANTEGRD Routine 06/14/2022 2:29 Malignant Neoplasm Resu lts for NFROSGRM&/URTGRM PM CDT Of Bladder (HCC) this pr ocedure EXIST are in the results section. URO CYSTOSCOPY Routine 06/14/2022 2:29 Malignant Neoplasm Resu lts for (SPECIFIC PM CDT Of Bladder (HCC) this proced ure PROVIDER) are in the results section. URO CYSTOSCOPY Routine 06/03/2022 8:51 Hydronephrosis Results for (GENERAL) AM CDT Malignant Neoplasm this proc edure Of Bladder (HCC) are in the results section. CT UROGRAM WITHOUT RAD - Routine 05/23/2022 8:05 Hydronephrosis Res ults for AND WITH IV (most inpatients AM CDT this proced ure CONTRAST and all are in the outpatients) results section. IR NEPHROSTOMY RAD - Routine 05/20/2022 Malignant Neoplasm Result s for TUBE EXCHANGE LEFT (most inpatients 12:46 PM CDT Of Bladder (HCC) t his procedure and all are in the outpatients) results section. CREATININE WITH Routine 05/17/2022 3:02 Hydronephrosis Results for EGFR, S/P PM CDT Malignant Neoplasm this proc edure Of Bladder (HCC) are in the results section. from Last 3 Months Results IR Nephrostomy Tube Exchange Left (07/02/2022 8:44 AM CDT)Only the most recent of2 resultswithin the time period is included. Anatomical Region Laterality Modality Genito Urinary, Vascular Interventional RST LOS, Left X-Ray Angiography Vascular Interventional ARZ LOS, Vascular Interventional FLA LOS Specimen (Source) Anatomical Collection Method Collection Time Re ceived Time Location / / Volume Laterality 07/02/2022 10:08 AM CDT Impressions 07/02/2022 10:11 AM CDT Nephrostomy tube upsize, repositioning and replacement. Hooked to bag drainage. Recommend exchange in 12 weeks. NR Narrative 07/02/2022 10:11 AM CDT EXAM: IR NEPHROSTOMY TUBE EXCHANGE LEFT CLINICAL HISTORY: Nephrostomy tube not d raining. TECHNIQUE: Prone positioning. Fluoroscop ic senior interior designer image demonstrates the likely malpositioning of the left nephrostomy tube. Contrast injectio n refluxes only to the skin. Nephrostomy tube was prepared and draped in sterile fashion. 1 percent lidocaine was used for local anesthesia. Nephrostomy tube was cut and removed over a Glidewire and a Berenstein catheter was used to manipulate back into the kidney. Contrast injection filled a dila kathleen ureter. Over a torque wire, a new 12 St Helenian by 25 cm pigtail catheter was advanced and formed in the left renal pelvis. Contrast injection confirmed positioning and patency. The catheter wa s secured skin with 2-0 Prolene and hooked to bag drainage. No immediate complication. PREPROCEDURE: Patient seen, evaluated, [...] The total intra-procedural sedation time was : 9 minutes. Procedure Note Beatriz Leblanc M.D. - 07/02/2022Format ting of this note might be different from the original. EXAM: IR NEPHROSTOMY TUBE EXCHANGE LEFT CLINICAL HISTORY: Nephrostomy tube not d raining. TECHNIQUE: Prone positioning. Fluoroscop ic senior interior designer image demonstrates the likely malpositioning of the left nephrostomy tube. Contrast injectio n refluxes only to the skin. Nephrostomy tube was prepared and draped in sterile fashion. 1 percent lidocaine was used for local anesthesia. Nephrostomy tube was cut and removed over a Glidewire and a Berenstein catheter was used to manipulate back into the kidney. Contrast injection filled a dila kathleen ureter. Over a torque wire, a new 12 St Helenian by 25 cm pigtail catheter was advanced and formed in the left renal pelvis. Contrast injection confirmed positioning and patency. The catheter wa s secured skin with 2-0 Prolene and hooked to bag drainage. No immediate complication. PREPROCEDURE: Patient seen, evaluated, [...] The total intra-procedural sedation time was : 9 minutes. IMPRESSION: Nephrostomy tube upsize, repositioning a nd replacement. Hooked to bag drainage. Recommend exchange in 12 weeks. NR Gibran Ruvalcaba M.D. IMG IR PROCEDURES Cystoscopy (specific provider) (06/14/2022 2:29 PM CDT) Specimen (Source) Anatomical Location Collection Method / Collectio n Time Received Time / Laterality Volume Narrative Gibran Ruvalcaba M.D. - 06/14/2022 2: 53 PM CDT Gibran Ruvalcaba M.D. ? 06/14/2022 ??2:55 PM Cystoscopy (specific provider) Date/Time: 06/14/2022 2:53 PM Performed by: Gibran Ruvalcaba M.D. Authorized by: Claude Loaiza MPAS, P.A.-C. Claude ZELAYA P.A.-C. UROLOGY ORDERABLES URO Nephrostogram (06/14/2022 2:29 PM CDT) Specimen (Source) Anatomical Location Collection Method / Collectio n Time Received Time / Laterality Volume Narrative Gibran Ruvalcaba M.D. - 06/14/2022 2: 50 PM CDT Gibran Ruvalcaba M.D. ? 06/14/2022 ??2:53 PM URO Nephrostogram Date/Time: 06/14/2022 2:50 PM Performed by: Gibran Ruvalcaba M.D. Authorized by: Claude Loaiza MPAS, P.A.-C. Claude ZELAYA P.A.-C. UROLOGY ORDERABLES URO Cystoscopy (general) (06/03/2022 8:51 AM CDT) Specimen (Source) Anatomical Location Collection Method / Collectio n Time Received Time / Laterality Volume Narrative Lo Sewell APRN, C.N.PJluis, D.N.P. - 06/03/2022 8:51 AM CDT Lo Sewell APRN C.N.PJluis, D.N.P. ? 06/04/2022 ??9:48 AM URO Cystoscopy (general) Date/Time: 06/03/2022 8:51 AM Performed by: Lo Sewell APRN, C .N.P., D.N.P. Authorized by: Armida Botello D.N.P. , R.N. Care team members present 1. Lo Sewell APRN C.N.P., D.N. P. 2. Aby Jackson, L.P.N. Additional procedures performed: cystosc opy ?? PROCEDURE DETAILS The patient was brought to the cystoscop y suite and placed in the lithotomy position. The patient was prep ped and draped in the standard fashion. ??A FLEXIBLE CYSTOSCOPE was ins erted through the urethra. 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 Unable to transverse cystosco pe related to notable discomfort. Given patient discomfort the procedure w as evacuated. Cystoscope was removed. ??He is currently performing in termittent catheterization with 14 St Helenian catheter. IMPRESSION: #[address] ricture PLAN: Recommend continuing intermittent catheterization vs. Indwelling Villarreal catheter. The ordering provider is responsible for reviewing results of the procedure and communicating the f indings to the patient. Consult with Dr. Ruvalcaba 06/14/2022 CONSENT Consent obtained: verbal Consent given by: patient The benefits, risks and alternatives to the procedure and the potential need for sedation or anesthesia as well as the names, roles, and responsibilities of healthcare team memb ers performing significant interventional tasks were discussed with the patient and/or decision maker. UNIVERSAL PROTOCOL All relevant documentation and testing w ere reviewed and available. All required blood products, implants, devic es and or special equipment were made available as applicable. Pre-proced ure verification was conducted and the correct site was marked if required. A fire risk assessment was done as applicable. The procedural time-out t o verify correct patient, correct side/site, and procedure was conducted p rior to performing the procedure and confirmed in a procedural pause. PRE-PROCEDURE DETAILS Procedure purpose: ??Diagnostic Appropriate hand hygiene, gown, cap, mas k, protective eyewear, sterile gloves, skin preparation, sterile drape, and strict aseptic technique were utilized as applicable for the procedure .: yes ?? Site preparation: ??Povidone-iodine SEDATION / ANESTHESIA Anesthesia method: none POST-PROCEDURE DETAILS Procedure completed successfully: yes ?? Complications: no apparent complications ?? Armida Botello APRN, C.N.P., D.N.P. UROLOGY ORDERABL ES CT Urogram without and with IV Contrast (05/23/2022 8:05 AM CDT) Anatomical Region Laterality Modality Abdomen, Pelvis, Abdominal RST LOS, N/A Comp uted Tomography, Computed Abdominal ARZ LOS, Abdominal FLA LOS Solomon ography Specimen (Source) Anatomical Collection Method Collection Time Re ceived Time Location / / Volume Laterality 05/23/2022 7:39 AM CDT Impressions 05/23/2022 9:03 AM CDT 1. Previously noted 8 x 1 cm lesion in the left lateral to posterior wall of the bladder had decreased in size, and now seen as area of mucosal hyperenhancement. 2. New marked circumferential thickening of the upper pole infundibulum in the left kidney. This is probably reactive changes to the nephros samuel and continued follow-up is recommended. 3. No evidence of metastasis in the abdo men or pelvis Narrative 05/23/2022 9:03 AM CDT EXAM: ??CT UROGRAM WITHOUT AND WITH IV CONTRAST COMPARISON: ??CT dated 02/11/2022 FINDINGS: Interval placement placement of left nep hrostomy. Previously noted moderate degree of pyelocaliectasis and ureterectasis on th e left has improved. No urinary calculi. Multiple cysts in both kidneys. The upper pole infundibulum in the left kidney shows marked circumferential thickening measuring 1.7 x 0.6 cm (series 7 image 60, series 13 i mage 37). This is new since prior CT. This is probably reactive changes to the nephrostomy and continued follow-up is recommended. 1.0 cm segment of the left distal ureter including UVJ is circumferentially thickened likely involved by the bladder tumor. This is u nchanged from the prior study. Otherwise left ureter is negative. Right renal collecting system and ureter are negative. Previously noted 8 x 6 x 1 cm enhancing mass in the left lateral to posterior wall of the bladder has decreased in thickness, and now seen as area of increased mucosal enhancement (series 7 image 123). Diffuse bladder wall thickening. P rostatic enlargement. No significant adenopathy in the abdomen or pelvis. The liver shows diffusely heterogeneous enhancement suggestive of diffuse liver parenchymal disease. Spleen measures 13 cm, upper limit of normal. ??Portal vein and hepatic veins are patent. No suspicious focal masses seen in the liver. Gallstone. Stable diffuse thickening of the adrenal glands. Pancreas is unremarkable. Diffuse vascular calcifications. Normal caliber small bowel and colon. Diffuse degenerative changes in the spine. Lumbar curve. Emphysematous changes both lower lungs. Small right pleural effusion. Atelectasis and scarring in both lower lungs. Procedure Note Luis Carlos Hamilton M.D. - 05/23/2022Forma tting of this note might be different from the original. EXAM: CT UROGRAM WITHOUT AND WITH IV CON TRAST COMPARISON: CT dated 02/11/2022 FINDINGS: Interval placement placement of left nep hrostomy. Previously noted moderate degree of pyelocaliectasis and ureterectasis on th e left has improved. No urinary calculi. Multiple cysts in both kidneys. The upper pole infundibulum in the left kidney shows marked circumferential thickening measuring 1.7 x 0.6 cm (series 7 image 60, series 13 i mage 37). This is new since prior CT. This is probably reactive changes to the nephrostomy and continued follow-up is recommended. 1.0 cm segment of the left distal ureter including UVJ is circumferentially thickened likely involved by the bladder tumor. This is u nchanged from the prior study. Otherwise left ureter is negative. Right renal collecting system and ureter are negative. Previously noted 8 x 6 x 1 cm enhancing mass in the left lateral to posterior wall of the bladder has decreased in thickness, and now seen as area of increased mucosal enhancement (series 7 image 123). Diffuse bladder wall thickening. P rostatic enlargement. No significant adenopathy in the abdomen or pelvis. The liver shows diffusely heterogeneous enhancement suggestive of diffuse liver parenchymal disease. Spleen measures 13 cm, upper limit of normal. Portal vein and hepatic veins ar e patent. No suspicious focal masses seen in the liver. Gallstone. Stable diffuse thickening of the adrenal glands. Pancreas is unremarkable. Diffuse vascular calcifications. Normal caliber small bowel and colon. Diffuse degenerative changes in the spine. Lumbar curve. Emphysematous changes both lower lungs. Small right pleural effusion. Atelectasis and scarring in both lower lungs. IMPRESSION: 1. Previously noted 8 x 1 cm lesion in t he left lateral to posterior wall of the bladder had decreased in size, and now seen as area of mucosal hyperenhancement. 2. New marked circumferential thickening of the upper pole infundibulum in the left kidney. This is probably reactive changes to the nephros samuel and continued follow-up is recommended. 3. No evidence of metastasis in the abdo men or pelvis Armida Botello APRN, C.N.P., D.N.P. IMG CT PROCEDURE S (ABNORMAL) Creatinine with Estimated GFR (05/17/2022 3:02 PM CDT) athologist Signature Creatinine 1.30 0.74 - 05/17/2022 DTL 1.35 mg/dL 4:03 PM CDT eGFR-Non 50 (L) >=60 05/17/2022 DTL Black/ mL/min/BSA 4:03 PM CDT Samoan Comment: ----ADDITIONAL INFORMATION---- Estimated GFR calculated using [...] Organization Address City/State/ZIP Code Phon e Number [facility] - [address] [place], [place] [address] [facility] [address] [facility] [address] from Last 3 Months Insurance Payer Benefit Plan / Subscriber ID Effective Phone Address T ype Group Dates MEDICARE MEDICARE A AND [id number] 2002-Prese [id number] [place] [address] [facility] [id number] 2000-Prese [phone] [id number] [place] [address] Advance Directives For more information, please contact: [phone] Latest Code Status on File Code Status Date Activated Date Inactivated Comments DNR/DNI 02/20/2022 1:42 PM 02/22/2022 10:39 PM DNR/DNI 02/20/2022 1:42 PM 02/20/2022 1:42 PM Care Teams Optical Glass Inspector Relationship Specialty Start Date End Date Elsewhere, Pcp PCP - General Internal Medicine 01/14/22
--- OUTSIDE RECORDS SUMMARY | 2022-07-31 11:32 | XMS_ITS | Encounter Summary ---
:1935 Author Organization [facility] Address [address] [place] [address] Care Team Providers Name Role Phone Elsewhere, Pcp Primary Care Provider Unavailable Reason for Visit Outpatient (Routine) - Closed Specialty Diagnoses / Procedures Referred By Contact Refer red To Contact Diagnoses Hydronephrosis Malignant Neoplasm Of Bladder (HCC) Armida Botello APRN, [facility] Procedures URO Cystoscopy (general) C.N.P., D.N.P. [address] [place] [phone] Referral ID Status Reason Start Date Expiration Date Visits Requ ested Visits Authorized [id number] Closed 05/17/2022 05/17/2023 1 1 Encounter Details Date Type Department Care Team Description 06/03/2022 Procedure visit Department of Armida Botello APRN, C.N.P., D.N.P. [address] [place] [phone] Stricture Urethral Postoperative Male (P rimary Dx); Urology in Lo Sewell APRN, C.N.P., D.N.P. [address] [place] [phone] Hydronephrosis; [place], [place] Malignant Neoplasm Of Bladde r (HCC) [address] [place] [phone] Social History Tobacco Use Types Packs/Day Years [...] or relatives? How often do you attend rastafari or Patient refused 2021 mandaeism services? Do you belong to any clubs or No 05/17/2022 organizations such as rastafari groups, unions, fraternal or athletic groups, or [...] place to sleep or slept in a mcc (including now)? Education Answer Date Recorded What is the highest level of school you have completed or 12 th grade 05/17/2022 the highest degree you have received? 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 - 06/03/2022 8:00 AM CDT Patient was seen for a cystoscopy procedure. Cystoscope CYF-VH #[id number] was used during today's cystoscopy procedure. Accessories used: cystoscope reusable (sterilized) stop cock Load number from processing via [employer]: [id number] documented in this encounter Procedure Notes Lo Sewell, EDWARD, C.N.P., D.N.P. - 06/03/2022 8:00 AM CDTAssociated Order(s): URO Cystoscopy (general) Pre-Procedure Diagnose(s): Hydronephrosis; Malignant Neoplasm Of Bladder (HCC) Post-Procedure Diagnose(s): Hydronephrosis; Malignant Neoplasm Of Bladder (HCC) URO Cystoscopy (general) Date/Time: 06/03/2022 8:51 AM Performed by: Lo Sewell APRN, C.N.PJluis, Lanny.N.P. Authorized by: Armida Botello D.N.PJluis, R.N. Care team members present 1. Lo Sewell APRN, C.N.P., Lanny.N.P. 2. Aby Jackson L.P.N. Additional procedures performed: cystoscopy PROCEDURE DETAILS The patient was brought to the cystoscopy suite and placed in the lithotomy position. The patient was prepped and draped in the standard fashion. A FLEXIBLE CYSTOSCOPE was inserted through the urethra.Urethroscopy demonstrated dense #13- #14 Burundian distal penile urethral stricture. Unable to transverse cystoscope related to notable discomfort. Given patient discomfort the procedure was evacuated. Cystoscope was removed. He is currently performing intermittent catheterization with 14 Burundian catheter. IMPRESSION: #1 Distal penile urethral stricture PLAN: Recommend continuing intermittent catheterization vs. Indwelling Villarreal catheter. The ordering provider is responsible for reviewing results of the procedure and communicating the findings to the patient. Consult with Dr. Ruvalcaba 06/14/2022 CONSENT Consent obtained: verbal Consent given by: patient The benefits, risks and alternatives to the procedure and the potential need for sedation or anesthesia as well as the names, roles, and responsibilities of healthcare team members performing significant interventional tasks were discussed with the patient and/or decision maker. UNIVERSAL PROTOCOL All relevant documentation and testing were reviewed and available. All required blood products, implants, devices and or special equipment were made available as applicable. Pre-procedure verificationwas conducted and the correct site was marked if required. A fire risk assessment was done as applicable. The procedural time-out to verify correct patient, correct side/site, and procedure was conducted prior to performing the procedure and confirmed in a procedural pause. PRE-PROCEDURE DETAILS Procedure purpose: Diagnostic Appropriate hand hygiene, gown, cap, mask, protective eyewear, sterile gloves, skin preparation, sterile drape, and strict aseptic technique were utilized as applicable for the procedure.: yes Site preparation: Povidone-iodine SEDATION / ANESTHESIA Anesthesia method: none POST-PROCEDURE DETAILS Procedure completed successfully: yes Complications: no apparent complications documented in this encounter Plan of Treatment Upcoming Encounters Date Type Specialty Care Team Description 08/20/2022 Appointment Radiology Claude Loaiza MPAS, P.A.-C. [address] [place] [phone] (Wo rk) 08/20/2022 Appointment Radiology Claude Loaiza MPAS, P.A.-C. [address] [place] [phone] (Wo rk) 08/22/2022 Virtual Visit Urology Gibran Ruvalcaba M.D. [address] [place] [phone] (Wo rk) documented as of this encounter Procedures Procedure Name Priority Date/Time Associated Comments Diagnosis URO CYSTOSCOPY Routine 06/03/2022 8:51 AM Hydronephrosi s Results for this (GENERAL) CDT Malignant Neoplasm procedure are in Of Bladder (HCC) the results section. documented in this encounter Results URO Cystoscopy (general) (06/03/2022 8:51 AM CDT) Specimen (Source) Anatomical Location Collection Method / Collectio n Time Received Time / Laterality Volume Narrative Lo Sewell APRN, C.N.P., D.N.P. - 06/03/2022 8:51 AM CDT Lo Sewell APRN, C.NJluisPJluis, D.N.P. ? 06/04/2022 ??9:48 AM URO Cystoscopy (general) Date/Time: 06/03/2022 8:51 AM Performed by: Lo Sewell APRN, C .N.P., Lanny.N.P. Authorized by: Armida Botello, Lanny.N.PJluis , R.N. Care team members present 1. Lo Sewell APRN, YolisN.PJluis, Lanny.N. P. 2. Aby Jackson, AlfredoN. Additional procedures performed: cystosc opy ?? PROCEDURE DETAILS The patient was brought to the cystoscop y suite and placed in the lithotomy position. The patient was prep ped and draped in the standard fashion. ??A FLEXIBLE CYSTOSCOPE was ins erted through the urethra. Urethroscopy demonstrated dense #13-#14 Burundian distal penile urethral stricture. Unable to transverse cystosco pe related to notable discomfort. Given patient discomfort the procedure w as evacuated. Cystoscope was removed. ??He is currently performing in termittent catheterization with 14 Burundian catheter. IMPRESSION: #[address] [...] Botello APRN, C.N.P., D.N.P. UROLOGY ORDERABL ES documented in this encounter Visit Diagnoses Diagnosis Stricture Urethral Postoperative Male - Primary Hydronephrosis Malignant Neoplasm Of Bladder (HCC) documented in this encounter Care Teams Filling And Stapling Machine Operator Relationship Specialty Start Date End Date Elsewhere, Pcp PCP - General Internal Medicine 01/14/22 documented as of this encounter
--- OUTSIDE RECORDS SUMMARY | 2022-07-31 11:32 | XMS_ITS | Encounter Summary ---
:1935 Author Organization [facility] Address [address] [place] [address] Care Team Providers Name Role Phone Elsewhere, Pcp Primary Care Provider Unavailable Encounter Details Date Type Department Care Team Description 06/19/2022 Clinical Communication Department of Urology Analisa Ruvalcaba in [facility] lonny Gardner M.D. 200 [facility] 200 [place] [phone] Social History Tobacco Use Types Packs/Day Years [...] or relatives? How often do you attend restoration or Patient refused 2021 sabianist services? Do you belong to any clubs or No 05/17/2022 organizations such as restoration groups, unions, fraternal or athletic groups, or [...] place to sleep or slept in a [facility] (including now)? Education Answer Date Recorded What is the highest level of school you have completed or 12 th grade 05/17/2022 the highest degree you have received? 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 - 06/19/2022 12:46 PM CDT I agree, I looked at his recent nephrostogram and the curl seems to be in an appropriate position Thanks Ajay Telephone Encounter - Bhavana Blum R.N. - 06/19/2022 8:51 AM CDT I called the patient and his . They report no urine drainage from the nephrostomy since 06/18/22 but she's been able to I/O cath with 300, 250 urine output. The patient denies pressure, pain, discomfort, fever/chills/nausea/vomiting. They had a urogram doneon 06/14/22 and were advised the dye might be sticky and encouraged the patient to drink a lot of water and watch for changes in drainage. He denies and tugging/pulling of the tubing, utilizes a diuretic but still no drainage. Miesha had flushes so I had her attempt to flush the the neph line with 3-4mL's NS, she said it went in with no resistance and patient had no pain or discomfort with the instillation. She secured the neph tube to the collection bag and stated nothing drained but there was liquid in the tubing. I advised this might be from the NS she pushed in. With absence of pain or pressure with/without flushing I advised the patient push his water intake over the next few hours, try different positions like walking around/sitting/standing to see if any urine will drain. If after increasing fluids, doing position and dressing changes and still no drainage advised to go to their local ED for further evaluation. Also advised if any pain/pressure develops to go to their local ED. Patient and verbalized understanding and no further questions at this time. Telephone Encounter - Stella Salas - 06/19/2022 7:11 AM CDT Callers Name: Miesha Reason for call: She is calling today because [facility]s Nephrostomy doesn't seem to be draining. She said there has been nothing out of the neph bag since yesterday morning around 10 am. She was able to I/O him and got 300 out of his bladder last night and then this morning she got about 250 out again. She said she noticed his legs were pretty swollen last night. Down a little bit this morning. She is concerned if they should go the [facility] in [place]? Would a nurse be able to return a call to them please? Does caller have Auth on file: Ok to respond via portal: No Best Number to be reached at: [phone] Best time of day to call: Pharmacy info if needed: documented in this encounter Plan of Treatment Upcoming Encounters Date Type Specialty Care Team Description 08/20/2022 Appointment Radiology Claude Loaiza MPAS, P.A.-C. [address] [place] [phone] (Octavio christensen) 08/20/2022 Appointment Radiology Claude Loaiza MPAS, P.A.-C. [address] [place] [phone] (Octavio christensen) 08/22/2022 Virtual Visit Urology Gibran Ruvalcaba M.D. [address] [place] [phone] (Wo rk) documented as of this encounter Visit Diagnoses Not on filedocumented in this encounter Care Teams Optical Instrument Repairer Relationship Specialty Start Date End Date Elsewhere, Pcp PCP - General Internal Medicine 01/14/22 documented as of this encounter
--- OUTSIDE RECORDS SUMMARY | 2022-07-31 11:32 | XMS_ITS | Encounter Summary ---
:1935 Author Organization [facility] Address [address] [place] [phone] Care Team Providers Name Role Phone Elsewhere, Pcp Primary Care Provider Unavailable Encounter Details Date Type Department Care Team Description 05/17/2022 Hospital Encounter Department of Armida Botello nephrosis; Laboratory Medicine L, ORDER MAKE UP CLERK, Malignhema t Neoplasm Of Bladder (HCC) and Pathology, C.N.P., [facility] in [address] [place] [address] [place] [phone] [place], [place] [phone] (Work) [phone] Social History Tobacco Use Types Packs/Day Years [...] you attend confucianism or Patient refused 2021 anglican services? Do you belong to any clubs [...] place to sleep or slept in a long term (including now)? Education Answer Date Recorded What is the highest level of school you have completed or 12 th grade 05/17/2022 the highest degree you have received? 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 [address] [place] [phone] (Wo rk) 08/20/2022 Appointment Radiology Claude Loaiza MPAS, P.A.-C. [address] [place] [phone] (Wo rk) 08/22/2022 Virtual Visit Urology Gibran Ruvalcaba M.D. [address] [place] [phone] (Wo rk) documented as of this encounter Visit Diagnoses Diagnosis Hydronephrosis Malignant Neoplasm Of Bladder (HCC) documented in this encounter Care Teams Haul Cane Brakeman Relationship Specialty Start Date End Date Elsewhere, Pcp PCP - General Internal Medicine 01/14/22 documented as of this encounter
--- OUTSIDE RECORDS SUMMARY | 2022-07-31 11:32 | XMS_ITS | Encounter Summary ---
:1935 Author Organization [facility] Address [address] [place] [address] Care Team Providers Name Role Phone Elsewhere, Pcp Primary Care Provider Unavailable Reason for Visit Reason Comments Urinary Retention Outpatient (Routine) - Closed Specialty Diagnoses / Procedures Referred By Contact Refer red To Contact Diagnoses Hydronephrosis Malignant Neoplasm Of Bladder (HCC) Retention Urinary [facility] Procedures URO Urethral cath removal & voiding trial (UCO/VT) C.N.P., D.N.P. [address] [place] [phone] Referral ID Status Reason Start Date Expiration Date Visits Requ ested Visits Authorized [id number] Closed 05/17/2022 05/17/2023 1 1 Encounter Details Date Type Department Care Team Description 05/17/2022 Procedure visit Department of Urology Armida Botello APRN, C.N.P., D.N.P. [address] [place] [phone] Hydronephrosis; in [place], Lalita Dewitt R.N. [address] [place] [phone] Malignant Neoplasm Of Bladder (HCC); [place] [facility] [address] [place] [phone] Social History Tobacco Use Types Packs/Day Years [...] or relatives? How often do you attend restorationist or Patient refused 2021 yazdanism services? Do you belong to any clubs or No 05/17/2022 organizations such as restorationist groups, unions, [employer] or athletic groups, or school groups? How [...] place to sleep or slept in a nursing home (including now)? Education Answer Date Recorded What is the highest level of school you have completed or 12 th grade 05/17/2022 the highest degree you have received? 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 - 05/17/2022 1:15 PM CDT CHIEF COMPLAINT Reason for visit, urinary catheter removal post: hayward catheter placement by Dr. Bassam Klein on March 22, 2022. IMPRESSION/REPORT/PLAN Nursing Intervention: Patient instilled with 240 mL's sterile normal saline prior to catheter removal. Patient able to void drops mL's pink urine with an ultrasound PVR of 240 mL's. Patient tolerated procedure fairly well. Patient education: Teach patient self catheterization. CHIEF COMPLAINT/REASON FOR VISIT Intermittent self-catheterization teaching IMPRESSION/REPORT/PLAN Patient is here for intermittent self-catheterization teaching as ordered by Dr Bassam Klein. Patient instructed on schedule for intermittent self- catheterization as ordered: Every 6 hours. Supplies sent with patient: Male Self-Catheter Pamplet and Supplies to perform self-catheterization SIC Order Indication: Chronic urinary retention Frequency: 4-6 times per day Duration: Permanently Catheter Size: 14F Catheter Type: Straight, Male Lubricant: 2/month Dispense: 2/month Physician: Your Healthcare Provider documented in this encounter Plan of Treatment Upcoming Encounters Date Type Specialty Care Team Description 08/20/2022 Appointment Radiology Claude Loaiza MPAS, P.A.-C. [address] [place] [phone] (Wo rk) 08/20/2022 Appointment Radiology Claude Loaiza MPAS P.A.-C. [address] [place] [phone] (Wo rk) 08/22/2022 Virtual Visit Urology Gibran Ruvalcaba M.D. [address] [place] [phone] (Wo rk) documented as of this encounter Visit Diagnoses Diagnosis Hydronephrosis Malignant Neoplasm Of Bladder (HCC) Retention Urinary documented in this encounter Care Teams Real Estate Asset Manager Relationship Specialty Start Date End Date Elsewhere, Pcp PCP - General Internal Medicine 01/14/22 documented as of this encounter
--- OUTSIDE RECORDS SUMMARY | 2022-07-31 11:32 | XMS_ITS | Encounter Summary ---
:1935 Author Organization [facility] Address 200 [place] [address] Care Team Providers Name Role Phone Elsewhere, Pcp Primary Care Provider Unavailable Reason for Referral Outpatient (Routine) - Authorized Specialty Diagnoses / Procedures Referred By Contact Refer red To Contact Radiology Diagnoses Malignant Neoplasm Of Bladder (HCC) Nura David IV [facility] Procedures IR Nephrostomy Tube Exchange Left M.D. 200 [place] [phone] Referral ID Status Reason Start Date Expiration Date Visits V isits Requested Authorized [id number] Authorized 05/20/2022 05/20/2023 1 1 Encounter Details Date Type Department Care Team Description 05/20/2022 Orders Only Department of Urology Nura David Malignant Neoplasm Of in [facility] Becky COBIAN M.D. Bladder (HCC) (Primary [place] 200 [facility] Dx) 200 [place] [phone] Social History Tobacco Use Types Packs/Day Years [...] or relatives? How often do you attend denominational or Patient refused 2021 spiritism services? Do you belong to any clubs or No 05/17/2022 organizations such as denominational groups, unions, fraRithmio or athletic groups, or school groups? 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 [address] [place] [phone] (Octavio christensen) 08/20/2022 Appointment Radiology Claude Loaiza MPAS, P.A.-C. [address] [place] [address] [phone] (Octavio christensen) 08/22/2022 Virtual Visit Urology Gibran Ruvalcaba M.D. [address] [place] [address] [phone] (Octavio christensen) Scheduled Orders Name Type Priority Associated Order Schedule Diagnoses IR Nephrostomy Tube Imaging RAD - Routine (most Malignant Neop lasm Expected: Exchange Left inpatients and all Of Bladder (HCC) 10/2021 outpatients) (Approximate), Expires: 08/20/2023 documented as of this encounter Visit Diagnoses Diagnosis Malignant Neoplasm Of Bladder (HCC) - Pr imary documented in this encounter Care Teams Parts And Service Manager Relationship Specialty Start Date End Date Elsewhere, Pcp PCP - General Internal Medicine 01/14/22 documented as of this encounter
--- OUTSIDE RECORDS SUMMARY | 2022-07-31 11:32 | XMS_ITS | Encounter Summary ---
:1935 Author Organization [facility] Address [address] [place] [phone] Care Team Providers Name Role Phone Elsewhere, Pcp Primary Care Provider Unavailable Reason for Visit Outpatient (Routine) - Closed Specialty Diagnoses / Procedures Referred By Contact Refer red To Contact Radiology Diagnoses Malignant Neoplasm Of Bladder (HCC) Hydronephrosis Gibran Ruvalcaba M.D. [facility] Procedures IR Nephrostomy Tube Exchange Left IR Nephrostomy Tube Check Left [address] [place], [place] [phone] Referral ID Status Reason Start Date Expiration Date Visits Requ ested Visits Authorized [id number] Closed 07/01/2022 07/01/2023 1 1 Encounter Details Date Type Department Care Team Description 07/02/2022 Hospital Encounter Department of Gibran Ruvalcaba M.D. [address] [place] [phone] Malignant Neoplasm Of Bladder (HCC); Radiology in Beatriz Leblanc M.D. [address] [place] [phone] Hydronephrosis Blade Batista Madison, M.D. [address] [place] [phone] [id number] [place] [address] Social History Tobacco Use Types Packs/Day Years [...] or relatives? How often do you attend uatsdin or Patient refused 2021 anglican services? Do you belong to any clubs or No 05/17/2022 organizations such as uatsdin groups, unions, [employer] or athletic groups, or school groups? How [...] place to sleep or slept in a residential (including now)? Education Answer Date Recorded What is the highest level of school you have completed or 12 th grade 05/17/2022 the highest degree you have received? 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 - 07/02/2022 9:16 AM CDT Instructions After Sedation or Anesthesia After you have sedation or anesthesia, it is common to have lapses of memory, slowed reaction time and impaired judgment. Do not drive or operate motorized vehicles or equipment for the rest of the day. This is for your safety and the safety of others. Air travel by yourself on the day of your procedure is not advised. For the rest of the day: Rest. Do not return to work or school. Do not take on responsibility for children or anyone who depends on your care. Do not use exercise equipment or take part in rough play or sports. Do not drink alcoholic beverages. Sedation or anesthesia medication also may increase your risk of falling. Use caution and ask for help when you walk or move around. You may want to have someone help you for the rest of the day. You may resume your usual diet when you feel able to do so, unless you are told otherwise. Contact your health care provider if you have: The following side effects longer than 24 hours: Ongoing dizziness. Persistent nausea or repeated vomiting. Signs of infection, which may include: Temperature of 100.4 degrees Fahrenheit (38 degrees Celsius) or higher. Chills. An Increase in swelling, tenderness, or redness at the site. Increased pain or pain not helped by pain medication. A bad-smelling odor from the site New drainage or an increase in drainage coming from the site A change in skin color at the site. This change may be a shade of red, purple or brown, depending onyour skin color. AttachmentsThe following attachments cannot be sent through Care Everywhere.Care of Your Nephrostomy or Nephroureteral Tube (Lao)documented in this encounter Medications at Time of Discharge Medication Sig Dispensed Refills Start Date End Date amLODIPine (NORVASC) 2.5 mg Take 2.5 mg by 0 tablet mouth daily. aspirin [address] tablet Take 1 tablet by 0 2015 mouth daily. furosemide (LASIX) 20 mg Take 40 mg by mouth 0 tablet 2 (two) times a day. glipiZIDE (GLUCOTROL XL) 10 Take 10 mg by mouth 0 mg 24 hr tablet daily with breakfast. lisinopriL Take 2.5 mg by 0 (PRINIVIL,ZESTRIL) 2.5 mg mouth daily. tablet buPROPion XL (WELLBUTRIN Take 300 mg by 0 XL) 300 mg 24 hr tablet mouth daily. cholecalciferol (VITAMIN Take 50 mcg by 0 D3) 50 mcg (2,000 Unit) mouth daily. tablet finasteride (PROSCAR) 5 mg Take 1 tablet (5 mg 90 tablet 3 06/14/2022 tablet total) by mouth daily. hydroxyurea (HYDREA) 500 mg Take 3-4 capsules by mouth daily. 1500 mg on Fri- 0 10/27/2017 capsule 2000 mg on Fri-Fri methocarbamol (ROBAXIN) 750 TAKE 1 TO 2 TABLETS 3 06/04/2019 mg tablet BY MOUTH EVERY 6 TO 8 HOURS NEEDED FOR MUSCLE SPASM nitroglycerin (NITROSTAT) Place 0.4 mg under 0 0.4 mg SL tablet the tongue every 5 (five) minutes as needed for chest pain. omeprazole (PriLOSEC) 20 mg Take 1 capsule by 0 0 02/12/2016 capsule mouth daily. tamsulosin (FLOMAX) 0.4 mg Take 1 capsule (0.4 90 capsule 3 06/14/2022 24 hr capsule mg total) by mouth daily. trospium (SANCTURA) 20 mg Take 1 tablet (20 30 tablet 0 03/2022 tablet mg total) by mouth 2 (two) times a day as needed (bladder spasms). documented as of this encounter Procedure Notes Julia Murguia M.D. - 07/02/2022 8:52 AM CDT PATIENT DISPOSITION Return to Outpatient Unit for recovery. Discharge patient when discharge criteria met. POST-PROCEDURE DIAGNOSIS Left nephrostomy tube exchange PROCEDURE PERFORMED AND DESCRIPTION Exchange and upsize of 10 Fr to 12 Fr left percutaneous nephrostomy tube. PROCEDURE DETAILS See Radiology Report SPECIMENS REMOVED None FINDINGS See radiology report PRIMARY PROCEDURALIST Deana Murguia COMPLICATIONS None. DRAINS As above. IMPLANTS None. ANESTHESIA Moderate Sedation. FLUIDS See MAR ESTIMATED BLOOD LOSS <5ml CURRENT MEDICATIONS No Medication Changes FOLLOW-UP LETTER None. MAY RETURN TO WORK Not applicable PATIENT INSTRUCTIONS Drain to gravity bag drainage. Routine exchange in 10-12 weeks. documented in this encounter Plan of Treatment Upcoming Encounters Date Type Specialty Care Team Description 08/20/2022 Appointment Radiology Claude Loaiza MPAS, P.A.-CJluis [address] [place] [phone] (Wo rk) 08/20/2022 Appointment Radiology Claude Loaiza MPAS, P.A.-C. [address] [place] [phone] (Wo rk) 08/22/2022 Virtual Visit Urology Gibran Ruvalcaba M.D. [address] [place] [phone] (Wo rk) documented as of this encounter Procedures Procedure Name Priority Date/Time Associated Comments Diagnosis IR NEPHROSTOMY TUBE RAD - Routine 07/02/2022 8:44 Malignant Resu lts for this EXCHANGE LEFT (most inpatients AM CDT Neoplasm Of procedure are in and all Bladder (HCC) the results outpatients) Hydronephrosis section. documented in this encounter Results IR Nephrostomy Tube Exchange Left (07/02/2022 8:44 AM CDT) Anatomical Region Laterality Modality Genito Urinary, [...] d raining. TECHNIQUE: Prone positioning. Fluoroscop ic experimental display builder image demonstrates the likely malpositioning of the [...] Over a torque wire, a new 12 Trinidadian by 25 cm pigtail catheter was advanced [...] d raining. TECHNIQUE: Prone positioning. Fluoroscop ic experimental display builder image demonstrates the likely malpositioning of the [...] Over a torque wire, a new 12 Trinidadian by 25 cm pigtail catheter was advanced [...] Recommend exchange in 12 weeks. NR Gibran FRIEDMAN IR PROCEDURES documented in this encounter Visit Diagnoses Diagnosis Malignant Neoplasm Of Bladder (HCC) Hydronephrosis documented in this encounter Administered Medications Inactive Administered Medications - up to 3 most recent administrations Medication Order MAR Action Action Date Dose Rate Site fentaNYL injection 25 mcg Given 07/02/2022 8:40 AM CDT 25 mcg (SUBLIMAZE) 25 mcg, intravenous, Every 2 min PRN, sedation, Administer over 1 minute immediately prior to the procedure. May repeat every 2 minutes to a maximum of 200 mcg, until pain score of 3 or less, or until the patient meets the pain comfort goal, or RASS 0 to -2. Do not give if respiratory rate is less than 8 breaths/minute., Starting on Fri07/02/22 at 0803, Preprocedure (RAD) Given 07/02/2022 8:36 AM CDT 25 mcg Given 07/02/2022 8:35 AM CDT 25 mcg flumazeniL injection 0.2 mg (ROMAZICON) 0.2 mg, intravenous, Once as needed, rev ersal, Starting on Fri07/02/22 at 0803, For 1 dose, Preprocedure (RAD), Administer o nce if patient has a RASS score of -4, -5 and has a respiratory rate less than 8 breaths/minute. iohexoL 300 mg iodine/mL solution (OMNIP AQUE) Given 07/02/2022 8:43 AM CDT 20 mL Code/trauma/sedation medication, Starting on Fri07/02/22 at 0843 levoFLOXacin in D5W IVPB 500 mg New Bag 07/02/2022 8:12 AM CDT 500 mg 100 mL/hr (LEVAQUIN) 500 mg (rounded from 773 mg = 10 mg/kg ? 77.3 kg Dosing weight), intravenous, at 100 mL/hr, Administer over 60 Minutes, Once, On Fri07/02/22 at 0815, For 1 dose, Preprocedure (RAD), Administer within 2 hours prior to surgical incision, Drug Monitoring Program: Pharmacist to adjust medication dosing based on indication and drug clearance factors., Indications: Prophylaxis, surgical lidocaine-sodium bicarbonate (buffered) Given 07/02/2022 8:43 AM CDT 9 mL 0.9%-8.4% injection infiltration, Code/trauma/sedation medication, Starting on Fri07/02/22 at 0843 metroNIDAZOLE in NaCl (iso-osm) New Bag 07/02/2022 8:45 AM CDT 500 mg 200 mL/hr IVPB 500 mg (FLAGYL) 500 mg, intravenous, at 200 mL/hr, Administer over 30 Minutes, Once, On Fri07/02/22 at 0815, For 1 dose, Intraprocedure (RAD), Administer within 1 hour prior to surgical incision, Indications: Prophylaxis, surgical midazolam (PF) injection 0.5 mg (VERSED) Given 07/02/2022 8:36 AM CDT 0.5 mg 0.5 mg, intravenous, Once as needed, sedation, Starting on Fri07/02/22 at 0803, For 1 dose, Preprocedure (RAD) midazolam (PF) injection 0.5 mg (VERSED) Given 07/02/2022 8:36 AM CDT 0.5 mg 0.5 mg, intravenous, Every 2 min PRN, sedation, Starting on Fri07/02/22 at 0803, Preprocedure (RAD), If RASS greater than -3, give additional dose(s) of 0.5 mg IV every 2 minutes for a maximum of 5 mg. Do not give if respiratory rate is less than 8 breaths/minute. NaCl 0.9% infusion 20 mL/hr, intravenous, Once as needed, t o keep vein open, Starting on Fri07/02/22 at 0803, For 1 dose, Preprocedure (RAD) naloxone injection 0.2 mg (NARCAN) 0.2 mg, intravenous, Once as needed, respiratory depre ssion, Starting on Fri07/02/22 at 0803, For 1 dose, Preprocedur e (RAD), Administer once if patient has a RASS score of -4, -5 and has a respiratory rate less t gross 8 breaths/minute. sodium chloride 0.9 % injection 10 mL 10 mL, intravenous, As needed, line care, Starting on Fri07/02/22 at 0803, Preprocedure (RAD), Peripheral Intraveno us Catheter and Rapid Infusion Catheter, prior to blood sampling, post blood transfusion or pos t blood sampling sodium chloride 0.9 % injection 3 mL 3 mL, intravenous, As needed, line care, Starting on T 07/02/22 at 0803, Preprocedure (RAD), Prior to and following infusion an d between multiple consecutive infusions: sodium chloride 0.9 % injection sodium chloride 0.9 % injection 3 mL 3 mL, intravenous, Every 12 hours scheduled, First dos e on Fri07/02/22 at 0900, Preprocedure (RAD), Peripheral Intraveno us Catheter and Rapid Infusion Catheter, when no infusion to maintain patency documented in this encounter Active and Recently Administered Medications Times are shown in CDT. Scheduled Medication Order 06/30/2022 07/01/2022 07/02/2022 levoFLOXacin in D5W IVPB 500 mg (LEVAQUIN) (COMPLETED) 811 (New Bag - Provider: Marla Castaneda R.N.) 500 mg (rounded from 773 mg = 10 mg/kg ? 77.3 kg Dosing weight), intravenous, at 100 mL/hr, Administer over 60 Minutes, Once, On Fri07/02/22 at 0815, For 1 dose, Preprocedure (RAD), Administer within 2 hours prior to surgical incision, Drug Monitoring Program: Pharmacist to adjust medication dosing based on indication and drug clearance factors., Indications: Prophylaxis, surgical metroNIDAZOLE in NaCl (iso-osm) IVPB 500 mg (FLAGYL) (COMPLETED) 0845 (New Bag - Provider: Negrita Persaud R.N.) 500 mg, intravenous, at 200 mL/hr, Admin ister over 30 Minutes, Once, On Fri07/02/22 at 0815, For 1 dose, Intraprocedure (RAD), Administer within 1 hour prior to surgical incision, Indications: Prophylaxis, surgical sodium chloride 0.9 % injection 3 mL 0900 (Due) 3 mL, intravenous, Every 12 hours schedu led, First dose on Fri07/02/22 at 0900, Preprocedure (RAD), Peripheral Intravenous Catheter and Rapid Infusion Catheter, when no infusion to maintain patency PRN Medication Order 06/30/2022 07/01/2022 07/02/2022 fentaNYL injection 25 mcg (SUBLIMAZE) 0835 (Given - Provider: Negrita Persaud R.N.)0836 (Given - Provider: Negrita Persaud R.N.)0840 (Given - Provider: Negrita Persaud R.N.) 25 mcg, intravenous, Every 2 min [...] is less than 8 breaths/minute., Starting on Fri07/02/22 at 0803, Preprocedure (RAD) flumazeniL injection 0.2 mg (ROMAZICON) 0.2 mg, intravenous, Once as needed, rev ersal, Starting on Fri07/02/22 at 0803, For 1 dose, Preprocedure (RAD), Administer once if patient has a RASS score of - 4, -5 and has a respiratory rate less than 8 breaths/minute. iohexoL 300 mg iodine/mL solution (OMNIPAQUE) (COMPLETED) 842 (Given - Provider: Beatriz Leblanc M.D.) Code/trauma/sedation medication, Starting on Fri07/02/22 at 0843 lidocaine-sodium bicarbonate (buffered) 0.9%-8.4% injection (COM PLETED) 842 (Given - Provider: Beatriz Leblanc M.D.) infiltration, Code/trauma/sedation medication, Starting on T 07/02/22 at 0843 midazolam (PF) injection 0.5 mg (VERSED) (COMPLETED) 835 (Given - Provider: Negrita Persaud R.N.) 0.5 mg, intravenous, Once as needed, sed ation, Starting on Fri07/02/22 at 0803, For 1 dose, Preprocedure (RAD) midazolam (PF) injection 0.5 mg (VERSED) 835 (Given - Provider: Negrita Persaud R.N.) 0.5 mg, intravenous, Every 2 min PRN, se dation, Starting on Fri07/02/22 at 0803, Preprocedure (RAD), If RASS greater than -3, give additional dose(s) of 0.5 mg IV every 2 minutes for a maximum of 5 mg. Do not give if respiratory rate is less than 8 breaths/minute. NaCl 0.9% infusion 20 mL/hr, intravenous, Once as needed, t o keep vein open, Starting on Fri07/02/22 at 0803, For 1 dose, Preprocedure (RAD) naloxone injection 0.2 mg (NARCAN) 0.2 mg, intravenous, Once as needed, res piratory depression, Starting on Fri07/02/22 at 08, For 1 dose, Preprocedure (RAD), Administer once if patient has a RASS score of -4, -5 and has a respiratory rate less than 8 breaths/minute. sodium chloride 0.9 % injection 10 mL 10 mL, intravenous, As needed, line care , Starting on Fri07/02/22 at 0803, Preprocedure (RAD), Peripheral Intravenous Catheter and Rapid Infusion Catheter, prior to blood sampling, post blood transfusion or post blood sampling sodium chloride 0.9 % injection 3 mL 3 mL, intravenous, As needed, line care, Starting on Fri07/02/22 at 0803, Preprocedure (RAD), Prior to and following infusion and between multiple consecutive infusions: sodium chloride 0.9 % injection documented in this encounter Care Teams Bereavement Coordinator Relationship Specialty Start Date End Date Elsewhere, Pcp PCP - General Internal Medicine 01/14/22 documented as of this encounter
--- OUTSIDE RECORDS SUMMARY | 2022-07-31 11:32 | XMS_ITS | Encounter Summary ---
:1935 Author Organization [facility] Address [address] [place] [address] Care Team Providers Name Role Phone Elsewhere, Pcp Primary Care Provider Unavailable Reason for Referral MRI/CAT/PET Scan (Routine) - Closed Specialty Diagnoses / Procedures Referred By Contact Refer red To Contact Radiology Diagnoses Hydronephrosis Armida Botello APRNA.[facility] Procedures CT Urogram without and with IV Contrast C.N.P., D.N.P. [address] [place], [place] [address] Referral ID Status Reason Start Date Expiration Date Visits Requ ested Visits Authorized [id number] Closed 05/17/2022 05/17/2023 1 1 Reason for Visit MRI/CAT/PET Scan (Routine) - Closed Specialty Diagnoses / Procedures Referred By Contact Refer red To Contact Radiology Diagnoses Hydronephrosis Armida Botello APRNA.[facility] Procedures CT Urogram without and with IV Contrast C.N.P., D.N.P. [address] [place] [phone] Referral ID Status Reason Start Date Expiration Date Visits Requ ested Visits Authorized [id number] Closed 05/17/2022 05/17/2023 1 1 Encounter Details Date Type Department Care Team Description 05/23/2022 Hospital Encounter Department of Rosmery, Armida Callands nephrosis Radiology, [place] EDWARD Dubois C.N.P., [facility] [place] [address] [facility] [address] [place] [phone] Social History Tobacco Use Types Packs/Day Years [...] you attend restorationist or Patient refused 2021 buddhism services? Do you belong to any clubs or No 05/17/2022 organizations such as restorationist groups, unions, fraternal or athletic groups, or [...] place to sleep or slept in a detention (including now)? Education Answer Date Recorded What is the highest level of school you have completed or 12 th grade 05/17/2022 the highest degree you have received? 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 [address] [place], [place] [phone] (Octavio christensen) 08/20/2022 Appointment Claude Manzanares MPAS, P.A.-C. [address] [place], [place] [phone] (Wo rk) 08/22/2022 Virtual Visit Urology Gibran Ruvalcaba M.D. [address] [place], [place] [phone] (Wo rk) documented as of this encounter Procedures Procedure Name Priority Date/Time Associated Diagnosis Comme nts CT UROGRAM RAD - Routine 05/23/2022 8:05 Hydronephrosis Results f or WITHOUT AND WITH (most inpatients AM CDT this pr ocedure IV CONTRAST and all are in the outpatients) results section. documented in this encounter Results CT Urogram without and with IV Contrast [...] APRN, C.N.P., D.N.P. IMG CT PROCEDURE S documented in this encounter Visit Diagnoses Diagnosis Hydronephrosis documented in this encounter Administered Medications Inactive Administered Medications - up to 3 most recent administrations Medication Order MAR Action Action Date Dose Rate Site iohexoL 350 mg iodine/mL solution Given 05/23/2022 7:38 AM CDT 1 00 mL 100 mL (OMNIPAQUE) 100 mL, intravenous, Once in imaging, contrast, Starting on Lise 05/23/22 at 0738, For 1 dose sodium chloride 0.9 % flush 1-250 mL Given 05/23/2022 7:29 AM CDT 190 mL 1-250 mL, intravenous, Once, On Lise 05/23/22 at 0700, For 1 dose, Imaging Protocol Orders documented in this encounter Care Teams Computer Hardware Technician Relationship Specialty Start Date End Date Elsewhere, Pcp PCP - General Internal Medicine 01/14/22 documented as of this encounter
--- OUTSIDE RECORDS SUMMARY | 2022-07-31 11:32 | XMS_ITS | Encounter Summary ---
:1935 Author Organization [facility] Address [address] [place] [address] Care Team Providers Name Role Phone Elsewhere, Pcp Primary Care Provider Unavailable Reason for Referral Outpatient (Routine) - Closed Specialty Diagnoses / Procedures Referred By Contact Refer red To Contact Diagnoses Malignant Neoplasm Of Bladder (HCC) Claude Loaiza MPAS, [facility] Procedures URO Nephrostogram P.A.-C. [address] [place] [address] Referral ID Status Reason Start Date Expiration Date Visits Requ ested Visits Authorized [id number] Closed 06/14/2022 06/14/2023 1 1 utpatient (Routine) - Closed Specialty Diagnoses / Procedures Referred By Contact Refer red To Contact Diagnoses Malignant Neoplasm Of Bladder (HCC) Claude Loaiza MPAS, [facility] Procedures Cystoscopy (specific provider) P.A.-C. [address] [place], [place] [phone] Referral ID Status Reason Start Date Expiration Date Visits Requ ested Visits Authorized [id number] Closed 06/14/2022 06/14/2023 1 1 Reason for Visit Outpatient (Routine) - Closed Specialty Diagnoses / Procedures Referred By Contact Refer red To Contact Urology Armida Botello, EDWARD, C.N.P., [facility] D.N.P. [address] [place] [address] Referral ID Status Reason Start Date Expiration Date Visits Requ ested Visits Authorized [id number] Closed 05/17/2022 05/17/2023 1 1 Encounter Details Date Type Department Care Team Description 06/14/2022 Comprehensive Visit Department of Gibran Ruvalcaba Neoplasm Urology in [place] Gardner Of Bladder (HCC) [place], [place] 200 [facility] (Primary Dx) [address] [place] [phone] Social History Tobacco Use Types Packs/Day Years [...] or relatives? How often do you attend spiritism or Patient refused 2021 hoahaoism services? 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 - 06/14/2022 9:00 AM CDT SUBJECTIVE REQUESTING PROVIDER Armida Botello D.N.P., R.N. REASON FOR CONSULT Non muscle invasive bladder cancer HISTORY OF PRESENT ILLNESS Mr. Chery is a pleasant 87 y.o. who presents today for further evaluation of their diagnosis of high-grade T1 urothelial carcinoma. 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 Patient was originally evaluated in the emergency department locally on 01/24/2022 for shortness of breath and back pain. Through numerous tests, it was noted that he had a posterior LEFT bladder wall mass with possible obstruction at the LEFT UVJ and moderate hydroureteronephrosis on the LEFT. He wasseen by a local urologist and had a cystoscopy performed which showed a large bladder mass in the LEFT lateral bladder wall that completely covered the LEFT UO. Patient was not a candidate for TURBT given his low ejection fraction and significant comorbidities. The patient met with our chief team on 02/08/2022 for further recommendations. At that time, we feltit was important to completely stage his suspected urothelial carcinoma. We obtained a CT urogram (no evidence of upper tract urothelial lesions or abdominal/pelvic metastatic disease/lymphadenopathy), percutaneous biopsy of the bladder mass, and placed a nephrostomy tube given his LEFT-sided obstruction. Biopsy revealed high-grade T1 with muscle present and uninvolved. Postprocedural course complicated by significant gross hematuria requiring multi day hospital and several blood transfusions. Ultimately hematuria resolved and he was discharged on 02/22/2022. He was dismissed with indwelling Villarreal catheter due to urinary retention. Patient was seen in [facility] clinic forfurther evaluation of this urinary retention and was recommended to see a provider that can perform Rezum to assess whether or not he would be a candidate to improve his bladder emptying. Other outlet procedures were deferred given his significant cardiovascular history and poor candidacy for general anesthesia. Was also recommended to maintain his indwelling urethral catheter and nephrostomy tube. The patient also met with Radiation Oncology on 03/06/2022 for discussion of palliative radiation therapy to his bladder mass. Patient was recommended palliative radiation therapy to the bladder tumor to a dose of 36 Gy in 6 fractions and likely 30 Gy in 5 fractions to the whole bladder and prostate ad ministered either twice weekly are once weekly. The patient did not want to go through with this until they new whether or not he would be a candidate for Rezum therapy. The patient met with Dr. Klein on 03/21/2022 to assess for his candidacy of Rezum. They originallyplanned for a Rezum procedure to be performed on 04/24/2022 depending on the UDS the following day. Unfortunately, the UDS demonstrated an a contractile bladder and was not recommended Rezum given the l ow success rates. Ultimately, he was recommended to proceed with palliative radiotherapy and initiated this on 04/02/2022, finishing it on 04/19/2022. The patient met with Dr. Klein's team again on 05/17/2022 for further discussion of management. They were frustrated that he still had a catheter in place. Given this, patient was recommended to attempt UCO voiding trial with CIC teaching if he was not able to void. Patient was also internally referred with cystoscopy, urine cytology, CT urogram, and office visit for a visit with a bladder cancer provider. Patient was not able to void on UCO, and was taught CIC. Patient had his nephrostomy tube exchanged on 05/20/2022. Cystoscopy on 06/03 was not able to be completed given a urethral stricture. CT urogram demonstratesregression in his previously noted 8 x 1 cm lesion in the bladder that is now seen as an area of mucosal hyperenhancement. No evidence of metastatic disease in the abdomen or pelvis. Patient presents today for further consultation on his bladder cancer. The patient's main concerns today are regarding his LEFT nephrostomy tube, urethral stricture, and what the expectations are for proper follow-up for his bladder cancer after palliative radiation therapy. They want to know whether or not future cystoscopies are necessary/indicated. The following portions of the patient's history were reviewed and updated as appropriate: allergies,current medications, family history, medical history, social history, surgical history, and problem list. REVIEW OF SYSTEMS ENT: Positive for difficulty hearing. Cardiovascular: Positive for swelling in the legs or feet. The following systems were negative: Constitutional, Skin, Eyes, Respiratory, Gastrointestinal, Genitourinary, Hematologic, Musculoskeletal, Neurological, Psychiatric Past Medical History: Diagnosis Date Atherosclerotic Heart Disease Of [place] Coronary Artery Without Angina Pectoris Cardiomyopathy Dilated (HCC) Chronic Kidney Disease Congestive Heart Failure (HCC) Depression Diabetes Mellitus NOS Gout Hypertension Essential Primary Impairment Cognitive Mild Keratosis Actinic Loss Hearing Bilateral Malignant Neoplasm Of Bladder (HCC) Malignant Neoplasm Of Skin Squamous Cell Carcinoma Polycythemia Vera (HCC) Regurgitation Tricuspid Past Surgical History: Procedure Laterality Date MOHS SURGERY OTHER CONVERTED SHX (SEE COMMENT) N/A 02/12/2016 >1. Mohs micrographic surgery with intermediate layered closure. OTHER CONVERTED SHX (SEE COMMENT) N/A 05/24/2015 >1. CO2 laser vaporization. 2. Shave biopsy with curettage and cryotherapy. OTHER CONVERTED SHX (SEE COMMENT) N/A 12/10/2017 >1. Chemical destruction. 2. Liquid nitrogen cryotherapy. OTHER CONVERTED SHX (SEE COMMENT) N/A 10/27/2017 >1. Mohs micrographic surgery with complex layered closure. No family history on file. OBJECTIVE PHYSICAL EXAM General: Well-appearing, in no acute apparent distress. Neuro: Alert and orientated x3. Psych: Maintained eye contact throughout conversation. Skin: No rashes in the areas examined. Eyes: No scleral icterus. Lungs: Normal respiratory effort upon inspiration. Musculoskeletal: Normal gait noted with ambulation. Abdomen: Appears soft, nondistended. LEFT nephrostomy tube in place. LABORATORY Lab Results Component Value Date HGB 7.6 (L) 02/22/2022 CREATININE 1.30 05/17/2022 ALKPHOS 124 02/20/2022 AST 14 02/20/2022 ALT 16 02/20/[address] Urogram without and with IV Contrast Result Date: 05/23/2022 Impression: 1. Previously noted 8 x 1 cm lesion in the left lateral to posterior wall of the bladder had decreased in size, and now seen as area of mucosal hyperenhancement. 2. New marked circumferential thickening of the upper pole infundibulum in the left kidney. This is probably reactive changes to the nephrostomy and continued follow-up is recommended. 3. No evidence of metastasis in the abdomen or pelvis ASSESSMENT / PLAN #1 Malignant Neoplasm Of Bladder (HCC) It was my pleasure to meet Mr. Chery, his , and his ghobechs-[id number] in clinic today in conjunction with Dr. Ruvalcaba. We personally reviewed his most recent laboratory work, imaging, and medical records. We discussed his diagnosis and prognosis in detail. Given that he is not a surgical candidate, we explained to them that the goal of care for him is palliative care by reducing symptomatology and keeping his bladder cancer under control. He has already received palliative radiation and his CT urogram demonstrates improvement of his previously seen bladder tumor. There still appears to be enhancing tissue around the LEFT UO/distal ureter which could represent residual tumor. As of now, the patient is asymptomatic from his bladder, but is complaining of nephrostomy tube discomfort. The main goals that they have are to remove the nephrostomy tube, treat his urethral stricture and potentially perform a cystoscopy, and determine adequate follow-up for him. They have been self catheterizing 3-4 times daily with adequate output, however they do feel as though it is getting more difficult to pass the catheter through the stricture. This is why they would like to have this treated. Weexplained to them that even if we were to do a cystoscopy and look inside the bladder, this ultimately would not change our recommendations for management given that he is not able to undergo any sort of surgery or procedure under anesthesia. They would also like to know if there is anything that they can do to treat his prostate size. To address his nephrostomy tube and urethral stricture, we will have him perform a nephrostogram here in clinic with Dr. Ruvalcaba today in conjunction with a special cystoscopy with urethral dilation. The goal of the nephrostogram will be to assess if his tumor has regressed enough to allow for urine passage through the distal urethra and ureteral orifice. If his nephrostogram demonstrates adequate drainage of urine, then we will cap his nephrostomy tube to assess how his urine drains and consider removal. We are not optimistic that this will work. Regarding the cystoscopy, they would like to do thisfor peace of mind to assess for tumor response after radiation. They are understanding that if we doa cystoscopy, this likely would not change any recommendations regardless of what we see. We explained the risks and benefits of this procedure to the patient in great detail. We explained that he might need to have an indwelling catheter for the short term after having his urethra dilated. We explained that this process might be very uncomfortable while he is awake. He will otherwise continue CIC 3-4 times daily to keep this area patent. We also explained that we will not perform a procedure to place an indwelling ureteral stent given that this would require anesthesia to exchange. It will either be long-term nephrostomy tube exchangesor nephrostomy tube removal if he has adequate urine drainage. Regarding his prostate, we will start him on dual therapy with Flomax as well as finasteride. We hada long discussion with them regarding the potential benefits of this and that these medications verywell may not impact his urinary function at all. I explained the risks/side effects of these medications. I also explained that finasteride can take upwards of 6-12 months to take its full effect to shrink his prostate. The goal of utilize these medications would be to aid in allowing him to spontaneously void and shrink his prostate for better catheter passage. For follow-up, there is no strict follow-up regimen for him as long as he remains asymptomatic and has adequate urine drainage with self catheterization and nephrostomy tube placement/left UO patency. We explained that there would be no role for serial cystoscopies given that we would not surgically treat him anyway. If he were to become symptomatic in the future, we would consider repeating a CT urogram to assess for change. Otherwise, he will continue to self-catheterize as he has been and follow-up with us for routine nephrostomy tube exchanges if this remains in place. All questions were addressed today and the patient has no further concerns. Plan: 1. Special cystoscopy and urethral dilation with Dr. Ruvalcaba. LEFT nephrostogram with this visit in clinic today. One dose of Cipro was ordered prior to this. 2. Initiation of Flomax and finasteride 3. Continue CIC 3-4 times daily. 4. Follow-up with us as needed and for routine nephrostomy tube exchange if indicated. *ADDENDUM* Urethral dilation was unable to be performed today given patient discomfort. LEFT nephrostogram did not show patency down into the bladder, consistent with continued malignant obstruction. Patient was recommended to continue with his nephrostomy tube with interval exchange every 3 months and CIC 3-4 times daily. We will follow-up with a repeat CT urogram when he returns for his nephrostomy tube exchange. We will have the radiologist's cap his nephrostomy tube before/during his CT urogram. They will also perform a nephrostogram at that time by nephrostomy tube exchange. We will call the patient withthe interval results on the repeat CT urogram via phone visit. Signed by: GARCIA Blackman P.A.-C. 06/14/2022 8:12 AM CDT I personally spent 45 minutes in care for the patient today. This includes both kokh-tq-blmb and gkqiblx-gp-bmtj time. documented in this encounter Plan of Treatment Upcoming Encounters Date Type Specialty Care Team Description 08/20/2022 Appointment Radiology Claude Loaiza MPAS, P.A.-C. [address] [place] [phone] (Octavio christensen) 08/20/2022 Appointment Radiology Claude Loaiza MPAS, P.A.-C. [address] [place] [phone] (Wo fermin) 08/22/2022 Virtual Visit Urology Gibran Ruvalcaba M.D. [address] [place] [phone] (Wo fermin) documented as of this encounter Results URO Nephrostogram (06/14/2022 2:29 PM CDT) Specimen (Source) Anatomical Location Collection Method / Collectio n Time Received Time / Laterality Volume Narrative Gibran Ruvalcaba M.D. - 06/14/2022 2: 50 PM CDT Gibran Ruvalcaba M.D. ? 06/14/2022 ??2:53 PM URO Nephrostogram Date/Time: 06/14/2022 2:50 PM Performed by: Gibran Ruvalcaba M.D. Authorized by: Claude Loaiza MPAS, P.A.-C. Ramonita SequeiraAJluis-C. UROLOGY ORDERABLES Cystoscopy (specific provider) (06/14/2022 2:29 PM CDT) Specimen (Source) Anatomical Location Collection Method / Collectio n Time Received Time / Laterality Volume Narrative Gibran Ruvalcaba M.D. - 06/14/2022 2: 53 PM CDT Gibran Ruvalcaba M.D. ? 06/14/2022 ??2:55 PM Cystoscopy (specific provider) Date/Time: 06/14/2022 2:53 PM Performed by: Gibran Ruvalcaba M.D. Authorized by: Claude Loaiza MPAS P.A.-CJluis Claued ZELAYA P.A.-C. UROLOGY ORDERABLES documented in this encounter Visit Diagnoses Diagnosis Malignant Neoplasm Of Bladder (HCC) - Pr imary Malignant Neoplasm Of Bladder (HCC) - Pr imary documented in this encounter Care Teams Air Quality Chemist Relationship Specialty Start Date End Date Elsewhere, Pcp PCP - General Internal Medicine 01/14/22 documented as of this encounter
--- OUTSIDE RECORDS SUMMARY | 2022-07-31 11:32 | XMS_ITS | Encounter Summary ---
:1935 Author Organization [facility] Address [address] [place] [id number] Care Team Providers Name Role Phone Elsewhere, Pcp Primary Care Provider Unavailable Reason for Referral Outpatient (Routine) - Closed Specialty Diagnoses / Procedures Referred By Contact Refer red To Contact Radiology Diagnoses Malignant Neoplasm Of Bladder (HCC) Hydronephrosis Gibran Ruvalcaba M.D. [facility] Procedures IR Nephrostomy Tube Exchange Left IR Nephrostomy Tube Check Left [address] [place] [phone] Referral ID Status Reason Start Date Expiration Date Visits Requ ested Visits Authorized [id number] Closed 07/01/2022 07/01/2023 1 1 Encounter Details Date Type Department Care Team Description 07/01/2022 Clinical Communication Department of Urology Analisa Ruvalcaba in [facility] lonny Gardner M.D. 200 [facility] 200 [place] [phone] Social History Tobacco Use Types Packs/Day Years [...] or relatives? How often do you attend jainism or Patient refused 2021 roman catholic services? Do you belong to any clubs or No 05/17/2022 organizations such as jainism groups, unions, fraTripware or athletic groups, or school groups? How [...] place to sleep or slept in a fpc (including now)? Education Answer Date Recorded What is the highest level of school you have completed or 12 th grade 05/17/2022 the highest degree you have received? 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 - 07/01/2022 9:05 AM CDT Relayed details of patient's appointments to his . Fasting instructions were discussed. The patient and his will contact our team if there are further issues or questions. Telephone Encounter - Melanie Soto R.N. - 07/01/2022 8:29 AM CDT SUBJECTIVE CHIEF COMPLAINT / REASON FOR CALL Neph Tube Issue Information Discussed Mr. Chery has a left nephrostomy tube. This was last exchanged 05/20. His calls today with continuing issues with his nephrostomy tube draining, previous contacted on 06/19. She has flushed the nephrostomy tube without success and notes there has been very minimal urine since . Mr. Chery does not have fever, chills, nausea, vomiting, or worsening pain including back ache. PLAN Disposition/Recommendation: scheduling left nephrostomy tube check , patient will begin fasting until the appointment is scheduled. Information/Education: patient/caller able to teach back Caller agreeable to plan of care: yes The following references were used: nursing clinical judgement Telephone Encounter - Karoline Dumont - 07/01/2022 8:03 AM CDT Patient's , Miesha, called. She stated the neph tube is not running at all and is requesting a call back at [phone]. documented in this encounter Plan of Treatment Upcoming Encounters Date Type Specialty Care Team Description 08/20/2022 Appointment Radiology Claude Loaiza MPAS, P.A.-C. [address] [place] [phone] (Wo rk) 08/20/2022 Appointment Radiology Claude Loaiza MPAS, P.A.-C. [address] [place] [phone] (Wo rk) 08/22/2022 Virtual Visit Urology Gibran Ruvalcaba M.D. [address] [place] [phone] (Wo rk) documented as of this encounter Results IR Nephrostomy Tube Exchange [...] d raining. TECHNIQUE: Prone positioning. Fluoroscop ic marketing automation specialist image demonstrates the likely malpositioning of the [...] Over a torque wire, a new 12 Irish by 25 cm pigtail catheter was advanced [...] d raining. TECHNIQUE: Prone positioning. Fluoroscop ic marketing automation specialist image demonstrates the likely malpositioning of the [...] Over a torque wire, a new 12 Irish by 25 cm pigtail catheter was advanced [...] drainage. Recommend exchange in 12 weeks. NR Gibrna FRIEDMAN IR PROCEDURES documented in this encounter Visit Diagnoses Diagnosis Malignant Neoplasm Of Bladder (HCC) - Pr imary Hydronephrosis Malignant Neoplasm Of Bladder (HCC) Hydronephrosis documented in this encounter Care Teams Bun Panner Relationship Specialty Start Date End Date Elsewhere, Pcp PCP - General Internal Medicine 01/14/22 documented as of this encounter
--- OUTSIDE RECORDS SUMMARY | 2022-07-31 11:33 | XMS_ITS | Encounter Summary ---
:1935 Author Organization [facility] Address [address] [place] [address] Care Team Providers Name Role Phone Elsewhere, Pcp Primary Care Provider Unavailable Encounter Details Date Type Department Care Team Description 03/26/2022 Orders Only Department of [facility] Story N eoplasm Of Bladder (HCC) (Primary Dx); Radiology in A, R.N. Negative COVID-19 Test (Contact With And (Suspected) Exposure To COVID-19); [place], [place] [address] [facility] Encounter For Preprocedural Laboratory E xamination (COVID-19) [address] [place] [id number] Social History Tobacco Use Types Packs/Day Years [...] or relatives? How often do you attend lutheran or Patient refused 2021 gnosticist services? Do you belong to any clubs or No 05/17/2022 organizations such as lutheran groups, unions, fraternal or athletic groups, or [...] slept in a nursing home (including now)? 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 [address] [place] [phone] (Wo rk) 08/20/2022 Appointment Radiology Claude oLaiza MPAS, P.A.-C. [address] [place] [phone] (Wo rk) 08/22/2022 Virtual Visit Urology Gibran Ruvalcaba M.D. [address] [place] [phone] (Wo rk) Scheduled Orders Name Type Priority Associated Diagnoses Order S chedule CBC without Differential Lab Routine Malignant Neopla sm Of Expected: 04/01/2022, Bladder (HCC) Expires: 06/26 Basic Metabolic Panel Lab Routine Malignant Neoplasm Of Expected: 04/01/2022, Bladder (HCC) Expires: 03/26 documented as of this encounter Visit Diagnoses Diagnosis Malignant Neoplasm Of Bladder (HCC) - Pr imary Negative COVID-19 Test (Contact With And (Suspected) Exposure To COVID-19) Encounter For Preprocedural Laboratory E xamination (COVID-19) documented in this encounter Care Teams Guest Experience Representative Relationship Specialty Start Date End Date Elsewhere, Pcp PCP - General Internal Medicine 01/14/22 documented as of this encounter
--- OUTSIDE RECORDS SUMMARY | 2022-07-31 11:33 | XMS_ITS | Encounter Summary ---
:1935 Author Organization [facility] Address [address] [place] [address] Care Team Providers Name Role Phone Elsewhere, Pcp Primary Care Provider Unavailable Encounter Details Date Type Department Care Team Description 04/05/2022 Hospital Encounter Department of Radiation Calin Anderson, Oncology in [address] [place] [address] [phone] Social History Tobacco Use Types Packs/Day Years [...] or relatives? How often do you attend mormon or Patient refused 2021 cheondoism services? Do you belong to any clubs or No 05/17/2022 organizations such as mormon groups, unions, fraternal or athletic groups, or [...] slept in a care home (including now)? 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 [address] [place] [address] [phone] (Wo rk) 08/20/2022 Appointment Radiology Claude Loaiza MPAS, P.A.-C. [address] [place], [place] [address] [phone] (Wo rk) 08/22/2022 Virtual Visit Urology Gibran Ruvalcaba M.D. [address] [place], [place] [address] [phone] (Wo rk) documented as of this encounter Visit Diagnoses Not on filedocumented in this encounter Care Teams Account Installer Relationship Specialty Start Date End Date Elsewhere, Pcp PCP - General Internal Medicine 01/14/22 documented as of this encounter
--- OUTSIDE RECORDS SUMMARY | 2022-07-31 11:33 | XMS_ITS | Encounter Summary ---
:1935 Author Organization [facility] Address [address] [place] [address] Care Team Providers Name Role Phone Elsewhere, Pcp Primary Care Provider Unavailable Reason for Referral Outpatient (Routine) - Authorized Specialty Diagnoses / Procedures Referred By Contact Refer red To Contact Nura David IV, M.D. [facility] 200 [place] [address] Referral ID Status Reason Start Date Expiration Date Visits V isits Requested Authorized [id number] Authorized 04/29/2022 04/29/20[address] Bassam Klein calendar Encounter Details Date Type Department Care Team Description 04/29/2022 Orders Only Department of Urology in [place] David is A [place], [place] Ashtyn COBIAN 200 [facility] 200 [place] [address] [place], [place] [phone] (Wo rk) Social History Tobacco Use Types Packs/Day Years [...] or relatives? How often do you attend zoroastrianism or Patient refused 2021 amish services? Do you belong to any clubs or No 05/17/2022 organizations such as zoroastrianism groups, unions, fraEngrade or athletic groups, or school groups? How [...] place to sleep or slept in a custodial (including now)? 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 [address] [place] [phone] (Wo rk) 08/20/2022 Appointment Radiology Claude Loaiza MPAS, P.A.-C. [address] [place] [phone] (Wo rk) 08/22/2022 Virtual Visit Urology Gibran Ruvalcaba M.D. [address] [place] [address] [phone] (Wo rk) Scheduled Referrals Name Type Priority Associated Diagnoses Order S chedule NonF2F phone Outpatient Referral Routine Expected : visit 04/29/2022 (Approximate), Expires: 2022 documented as of this encounter Visit Diagnoses Not on filedocumented in this encounter Care Teams Grocery Checker Relationship Specialty Start Date End Date Elsewhere, Pcp PCP - General Internal Medicine 01/14/22 documented as of this encounter
--- OUTSIDE RECORDS SUMMARY | 2022-07-31 11:33 | XMS_ITS | Encounter Summary ---
:1935 Author Organization [facility] Address [address] [place] [address] Care Team Providers Name Role Phone Elsewhere, Pcp Primary Care Provider Unavailable Encounter Details Date Type Department Care Team Description 05/02/2022 Clinical Communication Department of Heladio Meadows Radiology, Didier Layton R.N. [facility], in [address] [place] [phone] [place], [place] [phone] (Work) [phone] Social History Tobacco Use Types Packs/Day Years [...] you attend denominational or Patient refused 2021 advent services? Do you belong to any clubs or No 05/17/2022 organizations such as denominational groups, unions, fraternal or athletic groups, or [...] place to sleep or slept in a group home (including now)? 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 - 05/02/2022 9:23 AM CDT We received a notification from [facility] appointment coordinators indicating that Mr. Chery has decided to cancel his scheduled suprapubic catheter placement. I called the [facility] appointment coordinators to verify this information. The procedure is canceled for now. documented in this encounter Plan of Treatment Upcoming Encounters Date Type Specialty Care Team Description 08/20/2022 Appointment Radiology Claude Loaiza MPAS, P.A.-C. [address] [place] [phone] (Wo rk) 08/20/2022 Appointment Radiology Claude Loaiza MPAS, P.A.-C. [address] [place] [phone] (Wo rk) 08/22/2022 Virtual Visit Urology Gibran Ruvalcaba M.D. [address] [place] [phone] (Wo rk) documented as of this encounter Visit Diagnoses Not on filedocumented in this encounter Care Teams Educational Speech Language Clinician Relationship Specialty Start Date End Date Elsewhere, Pcp PCP - General Internal Medicine 01/14/22 documented as of this encounter
--- OUTSIDE RECORDS SUMMARY | 2022-07-31 11:33 | XMS_ITS | Encounter Summary ---
:1935 Author Organization [facility] Address [address] [place] [address] Care Team Providers Name Role Phone Elsewhere, Pcp Primary Care Provider Unavailable Encounter Details Date Type Department Care Team Description 03/26/2022 Orders Only Department of Urology in Kimberly Sethi M .D., [place], [place] Ph.D. 200 [place] [address] Social History Tobacco Use Types Packs/Day Years [...] or relatives? How often do you attend adventist or Patient refused 2021 denominational services? Do you belong to any clubs or No 05/17/2022 organizations such as adventist groups, unions, fraternal or athletic groups, or [...] to sleep or slept in a senior living (including now)? 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 [address] [place] [phone] (Wo rk) 08/20/2022 Appointment Radiology Claude Loaiza MPAS P.A.-C. [address] [place] [phone] (Wo rk) 08/22/2022 Virtual Visit Urology Gibran Ruvalcaba M.D. [address] [place] [phone] (Wo rk) documented as of this encounter Visit Diagnoses Not on filedocumented in this encounter Care Teams Power Press Operator Relationship Specialty Start Date End Date Elsewhere, Pcp PCP - General Internal Medicine 01/14/22 documented as of this encounter
--- OUTSIDE RECORDS SUMMARY | 2022-07-31 11:33 | XMS_ITS | Encounter Summary ---
:1935 Author Organization [facility] Address [address] [place] [address] Care Team Providers Name Role Phone Elsewhere, Pcp Primary Care Provider Unavailable Reason for Visit Reason Comments Procedure Encounter Details Date Type Department Care Team Description 03/27/2022 Clinical Communication Department of Manny Anderson Radiation Oncology giselle Dubois M.D. [facility] [address] [place] [address] [address] [place] [phone] Social History Tobacco Use Types Packs/Day Years [...] or relatives? How often do you attend jehovah's witness or Patient refused 2021 evangelical services? Do you belong to any clubs or No 05/17/2022 organizations such as jehovah's witness groups, unions, fraternal or athletic groups, or [...] place to sleep or slept in a penitentiary (including now)? 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 - 03/27/2022 8:24 AM CDT DIAGNOSIS 1. Malignant Neoplasm Of Bladder (HCC) REASON FOR ENCOUNTER Telephone call. INTERVAL HISTORY Henok Chery is an 86 y.o. male with the above diagnosis. 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 #2??Hematuria secondary to #1?? #3??Urinary obstruction secondary to??#1??requiring Villarreal catheter placement and nephrostomy tube placement?? 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 I had a call from the patient's spouse. She informed me that Urology has scheduled a suprapubic catheter placement for the patient next Friday. Unfortunately, we are ready simulated him yesterday withhis Villarreal catheter in place. This will likely delay his radiotherapy, at a minimum necessitating repe at simulation. We will communicate with the Urology service about timing--whether we proceed with suprapubic catheter placement next week or delay until it after his radiotherapy is complete. We will contact the patient's spouse later today once we have more information. She verbalized satisfaction with this plan. Signed by: Manny Anderson M.D. 03/27/2022 8:27 AM CDT documented in this encounter Plan of Treatment Upcoming Encounters Date Type Specialty Care Team Description 08/20/2022 Appointment Radiology Claude Loaiza, Eduardo ZELAYA [address] [place], [place] [address] [phone] (Wo rk) 08/20/2022 Appointment Radiology Claude Loaiza MPAS, P.A.-C. 200 [place], [place] [phone] (Wo rk) 08/22/2022 Virtual Visit Urology Gibran Ruvalcaba M.D. 200 [place], [place] [phone] (Wo rk) documented as of this encounter Visit Diagnoses Diagnosis Malignant Neoplasm Of Bladder (HCC) - Pr imary documented in this encounter Care Teams Bus Info Consultant Relationship Specialty Start Date End Date Elsewhere, Pcp PCP - General Internal Medicine 01/14/22 documented as of this encounter
--- OUTSIDE RECORDS SUMMARY | 2022-07-31 11:33 | XMS_ITS | Encounter Summary ---
:1935 Author Organization [facility] Address [address] [place] [address] Care Team Providers Name Role Phone Elsewhere, Pcp Primary Care Provider Unavailable Reason for Visit Outpatient (Routine) - Canceled Specialty Diagnoses / Procedures Referred By Contact Refer red To Contact Radiology Diagnoses Retention Urinary Chronic Kimberly Sethi M.D., [facility] Procedures IR Genitourinary Procedure Ph.D. 200 [place] [address] Referral ID Status Reason Start Date Expiration Date Visits V isits Requested Authorized [id number] Canceled 03/25/2022 03/25/2023 1 1 Encounter Details Date Type Department Care Team Description 04/02/2022 Hospital Encounter Department of Kimberly Sethi M.D., Ph.D. Canceled (Patient: Radiology in Shoaib Poe M.D. [address] [place] [phone] Request) [place], [place] [address] [place] [phone] Social History Tobacco Use Types Packs/Day Years [...] or relatives? How often do you attend jewish or Patient refused 2021 lutheran services? Do you belong to any clubs or No 05/17/2022 organizations such as jewish groups, unions, fraternal or athletic groups, or [...] or slept in a alf (including now)? 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 [address] [place], [place] [phone] (Octavio rk) 08/20/2022 Appointment Radiology Claude Loaiza MPAS, P.A.-C. [address] [place], [place] [address] [phone] (Octavio rk) 08/22/2022 Virtual Visit Urology Gibran Ruvalcaba M.D. [address] [place], [place] [address] [phone] (Octavio rk) documented as of this encounter Visit Diagnoses Not on filedocumented in this encounter Care Teams Supervisor In Circuit Testing Relationship Specialty Start Date End Date Elsewhere, Pcp PCP - General Internal Medicine 01/14/22 documented as of this encounter
--- OUTSIDE RECORDS SUMMARY | 2022-07-31 11:33 | XMS_ITS | Encounter Summary ---
:1935 Author Organization [facility] Address [address] [place] [address] Care Team Providers Name Role Phone Elsewhere, Pcp Primary Care Provider Unavailable Encounter Details Date Type Department Care Team Description 04/19/2022 Documentation Department of Radiation [facility]anny Anderson[facility] [address] [place] [phone] (Wo rk) Social History Tobacco Use Types [...] or relatives? How often do you attend religious or Patient refused 2021 denominational services? Do you belong to any clubs or No 05/17/2022 organizations such as religious groups, unions, fraternal or athletic groups, or [...] place to sleep or slept in a intermediate (including now)? 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 - 04/19/2022 11:59 PM CDT DIAGNOSIS: 1. Malignant Neoplasm Of Bladder (HCC) Attending Physician: Manny Anderson M.D. ([id number]) Treatment Intent: Curative Concomitant Therapy: None Single Plan Treatment Course: 1xBladder Plan ID Fractions Dose / Fraction (cGy) Dose Treated (cGy) Dose Planned (cGy) First Treatment Last Treatment Elapsed Days [id number] 3600 04/02/2022 04/19/2022 17 Course Summary 04/02/2022 04/19/2022 17 Radiation Modality: Photons CLINICAL SUMMARY Mr. Henok Chery completed radiation treatment as planned without interruptions. The course oftreatment was tolerated well. The patient experienced zero toxicities during radiation treatment. TREATMENT RESPONSE: Response to treatment will be determined by post-treatment imaging and/or laboratory work. RECOMMENDED FOLLOW UP: Urology. He will follow up with our colleagues in Urology who saw him originally because of his multiple urologic on going needs with respect to nephrostomy tubes and a suprapubic catheter. Signed by: Renetta Koch R.N., 05/03/2022 2:46 PM CDT [facility] [address] [place] [phone] documented in this encounter Plan of Treatment Upcoming Encounters Date Type Specialty Care Team Description 08/20/2022 Appointment Radiology Claude Loaiza, MPAS, P.A.-C. [address] [place], [place] [phone] (Wo rk) 08/20/2022 Appointment Radiology Claude Loaiza MPAS, Eduardo [address] [place], [place] [phone] (Wo rk) 08/22/2022 Virtual Visit Urology Gibran Ruvalcaba M.D. [address] [place], [place] [phone] (Wo rk) documented as of this encounter Visit Diagnoses Diagnosis Malignant Neoplasm Of Bladder (HCC) - Pr imary documented in this encounter Care Teams Chucking Machine Set Up Operator Relationship Specialty Start Date End Date Elsewhere, Pcp PCP - General Internal Medicine 01/14/22 documented as of this encounter
--- OUTSIDE RECORDS SUMMARY | 2022-07-31 11:33 | XMS_ITS | Encounter Summary ---
:1935 Author Organization [facility] Address [address] [place] [address] Care Team Providers Name Role Phone Elsewhere, Pcp Primary Care Provider Unavailable Reason for Referral Outpatient (Routine) - Closed Specialty Diagnoses / Procedures Referred By Contact Refer red To Contact Urology Manny Anderson M .D. Alamiri, Jamal M, M.BJluis, [address] [facility] B.., [place] [address] [address] [facility] [place] [address] Phone: Fax: Referral ID Status Reason Start Date Expiration Date Visits Requ ested Visits Authorized [id number] Closed 04/16/2022 04/16/2023 1 1 Radiation Therapy (Routine) - Authorized Specialty Diagnoses / Procedures Referred By Contact Refer red To Contact Diagnoses Malignant Neoplasm Of Bladder (HCC) Manny Anderson M.D. [facility] Procedures Management Visit [address] [place] [phone] Referral ID Status Reason Start Date Expiration Date Visits V isits Requested Authorized [id number] Authorized 03/05/2022 03/05/2023 10 10 Reason for Visit Radiation Therapy (Routine) - Authorized Specialty Diagnoses / Procedures Referred By Contact Refer red To Contact Diagnoses Malignant Neoplasm Of Bladder (HCC) Manny Anderosn M.D. [facility] Procedures Management Visit [address] [place] [address] Referral ID Status Reason Start Date Expiration Date Visits V isits Requested Authorized [id number] Authorized 03/05/2022 03/05/2023 10 10 Encounter Details Date Type Department Care Team Description 04/16/2022 Hospital Encounter Department of Manny Anderson Neoplasm Radiation Oncology Ashtyn Dubois Of Bladder (HCC) in [place], [address] [place], [place] [address] [facility] [address] [place], [place] [phone] (Work) [phone] Social History Tobacco Use Types Packs/Day Years [...] you attend religion or Patient refused 2021 yarsanism services? 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 documented as of this encounter Progress Notes Manny Anderson M.D. - 04/16/2022 2:30 PM CDT SUBJECTIVE REASON FOR VISIT Evaluation for side effects while receiving radiation treatment for 1. Malignant Neoplasm Of Bladder (HCC) SUPERVISED BY: Dr. Anderson HISTORY OF PRESENT ILLNESS Mr. Henok Chery is an 86 y.o. 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 He is now receiving twice weekly radiation therapy. Treatment Course: 1xBladder Plan ID Fractions Dose / Fraction (cGy) Dose Treated (cGy) Dose Planned (cGy) First Treatment Last Treatment Elapsed Days [id number] 600 2400 3600 04/02/2022 04/16/2022 14 Course Summary 04/02/2022 04/16/2022 14 Oncology History Malignant Neoplasm Of Bladder (HCC) 07/13/2021 Other PSA 1.14 ng/mL 01/24/2022 Other The patient presented to the [facility] ED with a chief complaint of increased shortness of breath and back pain. Laboratory workup showed anemia, 9.7, and creatinine of 1, stable. He had a urinalysis which was concerning for microscopic hematuria. He was admitted for diuresis. 01/24/[address] scan of the abdomen and pelvis demonstrated an irregular soft tissue thickening of the posteriorleft wall of the urinary bladder consistent with a neoplastic process. This was obstructing the leftUVJ resulting in moderate left- sided hydronephrosis. Moderately enlarged prostate gland was protruding into the bladder base. Small right-sided pleural effusion. 01/25/[address] scan of the chest was negative for pulmonary embolism. Emphysema with bulla formation in the lung bases. Small right-sided pleural effusion and tiny left- sided effusion. Mild passive atelectasis inthe left lower lobe due to the pleural effusion as well as subsegmental atelectasis or scarring in both upper lobes. Mild splenomegaly. Cholelithiasis. 01/29/2022 Surgery and Procedures Cystoscopy was performed by Dr. Kurtis Bach at [facility] and demonstrated a large medial lobe of the prostate, 3 cm, with papillary bladder mass, 5 cm, the left bladder wall obstructing the left UO. The patient reported a history of gross hematuria for months and difficulty emptying his bladder. Discussed that the patient ideally would need TURBT and bilateral retrogrades. Patient will need to see his label stitcher for surgical clearance, he is a poor candidate for surgery. 02/08/2022 Other Urology consultation at [facility] with Dr. David Day who recommended proceeding with CT urogram. If CT urogram is positive for pelvic lymphadenopathy, will obtain biopsy of lymph node. If CT urogram was negative for lymphadenopathy, will obtain biopsy of the bladder with nephrostomy tube placement at the same time. 02/11/[address] urogram demonstrated an irregular enhancing mass along the left urinary bladder extending over the left UVJ with upstream moderate left hydronephrosis and ureterectasis. No abnormal enhancement, soft tissue masses, or wall thickening of the left renal collecting system or ureter. No specific CT fin dings to suggest extravesical extension. No adenopathy in the abdomen or pelvis. Bilateral renal cysts. Right renal collecting system and ureter were negative. Prostatic enlargement. Slightly nodular configuration of the liver suggests cirrhosis. 02/18/2022 Biopsy/Pathology CT-guided left bladder mass biopsy was performed. Placement of 10 F left nephrostomy tube was also performed. PATHOLOGY: A. Soft Tissue, Bladder mass, fine needle aspiration (smears/core biopsy): Positive for malignancy. Superficial fragments of high grade papillary urothelial carcinoma with foci suspicious for lamina propria invasion. Muscularis propria is present and uninvolved. 02/18/2022 Other 02/18/2022 through 02/22/2022: Following the procedure the patient was kept inpatient due to decreased hemoglobin and hematuria. Blood transfusions were given. The patient was referred for Radiation Oncology consultation for consideration of palliative radiation therapy. Urology hospital discharge note: Evaluated by Medicine and Cardiology with conclusion being that patient is high- risk surgical candidate due to cardiovascular comorbidities. Patient and family would like to take as conservative approach as possible in terms of avoiding surgery if at all possible. Have expressed desire for DNR/DNI. 02/27/2022 Other Urology appointment with Dr. David. The patient failed voiding trial. Plan to maintain indwelling urethral catheter and nephrostomy tube. Referral to [facility] provider. 03/12/2022 - Radiation Therapy Radiation Therapy Treatment Details (Noted on 03/05/2022) Site: Bladder Technique: No technique specified Goal: Curative Planned Treatment Start Date: 03/12/2022 The patient was seen and examined today with Dr. Anderson. The patient reports no discomfort at tip of penis or with his catheter. He denies clots in his urine. Minimal hematuria is improving overall and none today. He denies fevers or foul smelling discharge from catheter. He continues to notice pain to back near nephrostomy tube placement; this has been present since nephrostomy tube placement. He denies diarrhea, fevers, rectal discomfort or bladder spasms. PATIENT REPORTED SYMPTOM SCREEN FATIGUE (Scale: 0 = no fatigue; 10 = worst fatigue you can imagine): 0 PAIN (Scale: 0 = no pain; 10 = worst pain you can imagine): 0 OVERALL QUALITY OF LIFE (Scale: 0 = as bad as can be; 10 = as good as can be): 5 OBJECTIVE Temp 36.3 ??C (Temporal) Wt 81.3 kg BMI 26.46 kg/m?? PHYSICAL EXAM General: Alert and oriented in no apparent distress. 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 #2??Hematuria secondary to #1?? #3??Urinary obstruction secondary to??#1??requiring Villarreal catheter placement and nephrostomy tube placement?? 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 #6 Intensity modulated radiotherapy to the bladder and prostate initiated on April 02, 2022 and administered twice weekly; anticipated completion on April 19, 2022 The patient is tolerating radiation treatment well overall. Patient is receiving radiation therapy twice a week (on Tuesdays and Fridays). He is scheduled for suprapubic catheter with Interventional Radiology on May 07, 2022. On May 20, 2022 he is scheduled for nephrostomy tube exchange. We will not order formal follow up in Radiation Oncology. We will place return order for Urology follow up on our [facility]. He will contact us with any questions or concerns. We will continue with radiation treatment as planned. Patient and his , Miesha stated a full understanding to the plan of care discussed today. Toxicities reviewed with Dr. Anderson today. Signed by: Renetta Koch R.N. 04/16/2022 3:24 PM CDT I saw and evaluated the patient and participated in the andrade portions of the service. I reviewed the documentation of Renetta Koch R.N. and agree with the findings and plan. The patient appears well onexam. He is tolerating treatment well. He will follow up with our colleagues in Urology who saw him originally because of his multiple urologic on going needs with respect to nephrostomy tubes and a suprapubic catheter. The patient and his verbalized satisfaction with this plan. Signed by: Manny Anderson M.D. 04/16/2022 6:46 PM CDT [facility] [address] [place] [address] documented in this encounter Plan of Treatment Upcoming Encounters Date Type Specialty Care Team Description 08/20/2022 Appointment Radiology Cladue Loaiza MPAS, P.A.-C. [address] [place] [phone] (Wo rk) 08/20/2022 Appointment Radiology Claude Loaiza MPAS, P.A.-C. [address] [place] [phone] (Wo rk) 08/22/2022 Virtual Visit Urology Gibran Ruvalcaba M.D. [address] [place] [phone] (Wo rk) Scheduled Orders Name Type Priority Associated Diagnoses Order S chedule Management Visit Radiation Oncology Routine Malignant Neoplasm Once for 1 Of Bladder (HCC) Occurrences starting 04/16/2022 unti l 04/16/2022 Scheduled Referrals Name Type Priority Associated Diagnoses Order S chedule Return to provider Outpatient Referral Routine Ex pected: in another 04/16/2022 specialty (Approximate), Expires: 07/17/2023 documented as of this encounter Visit Diagnoses Diagnosis Malignant Neoplasm Of Bladder (HCC) documented in this encounter Care Teams Business Agent Relationship Specialty Start Date End Date Elsewhere, Pcp PCP - General Internal Medicine 01/14/22 documented as of this encounter
--- OUTSIDE RECORDS SUMMARY | 2022-07-31 11:33 | XMS_ITS | Encounter Summary ---
:1935 Author Organization [facility] Address [address] [place] [address] Care Team Providers Name Role Phone Elsewhere, Pcp Primary Care Provider Unavailable Reason for Referral Outpatient (Routine) - Closed Specialty Diagnoses / Procedures Referred By Contact Refer red To Contact Radiation Oncology Iris Mishra P.A.-C., ROSA Castellanos [facility] [address] [place] [phone] Referral ID Status Reason Start Date Expiration Date Visits Requ ested Visits Authorized [id number] Closed 03/25/2022 03/25/2023 1 1 Reason for Visit Outpatient (Routine) - Closed Specialty Diagnoses / Procedures Referred By Contact Refer red To Contact Radiation Oncology Iris Mishra P.A.-C., [facility] [address] [place] [phone] Referral ID Status Reason Start Date Expiration Date Visits Requ ested Visits Authorized [id number] Closed 03/25/2022 03/25/2023 1 1 Encounter Details Date Type Department Care Team Description 03/26/2022 Hospital Encounter Department of Manny Anderson Neoplasm Radiation Oncology Ashtyn Dubois Of Bladder (HCC) in [address] (Primary Dx) [place], [place] [address] [facility] [address] [place], [place] [phone] (Work) [phone] Social History Tobacco Use Types Packs/Day Years [...] or relatives? How often do you attend buddhism or Patient refused 2021 islam services? Do you belong to any clubs or No 05/17/2022 organizations such as buddhism groups, unions, [employer] or athletic groups, or school groups? How [...] or slept in a fpc (including now)? 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 - 03/26/2022 2:00 PM CDT RADIATION ONCOLOGY FOLLOW-UP VISIT Supervising Oil Well Perforator Operator: Dr. Manny Anderson Home address: [address] [place] [phone] SUBJECTIVE History of present illness Mr. Henok Chery is a 86 y.o. 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 Please see documentation by me on 03/06/2022 for initial consultation. The patient's oncologic history is as follows: Oncology History Malignant Neoplasm Of Bladder (HCC) 07/13/2021 Other PSA 1.14 ng/mL 01/24/2022 Other The patient presented to the [facility] ED with a chief complaint of increased [...] was performed by Dr. Kurtis Bach at [facility] and demonstrated a large medial lobe of the prostate, 3 cm, with papillary bladder mass, 5 cm, the left bladder wall obstructing the left UO. The patient reported a history of gross hematuria for months and difficulty emptying his bladder. Discussed that the patient ideally would need TURBT and bilateral retrogrades. 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 02/08/2022 Other Urology consultation at [facility] with Dr. David Day who recommended proceeding [...] urethral catheter and nephrostomy tube. Referral to [facility] provider. 03/12/2022 - Radiation Therapy Radiation Therapy Treatment Details (Noted on 03/05/2022) Site: Bladder Technique: No technique specified Goal: Curative Planned Treatment Start Date: 03/12/2022 Prior history of radiation None. Interval history Since the patient was last seen in radiation oncology, he was evaluated by Drs. Bradshaw and Dwayne from urology for consideration of Rezum procedure. He underwent a urodynamic study that demonstrated an acontractile bladder. In the clinic today, Mr. Henok Chery reports no significant change in his symptomatology. He continues to have pink-tinged urine without clots. He continues to have discomfort around the tip of hispenis and yellowish discharge around the outside of the catheter. Patient reported symptom screen Fatigue (scale: 0 = no fatigue; 10 = worst fatigue you can imagine): 4 Pain (scale: 0 = no pain; 10 = worst pain you can imagine): 4 Overall quality of life (scale: 0 = as bad as can be; 10 = as good as can be): 4 Past medical history Pertinent past medical history, past surgical history, medications, allergies, social history, and family history were reviewed. Review of systems Review of systems as noted in HPI. OBJECTIVE Vitals Weight: 79.2 kg, Temperature: 98.2 degrees Farenheit and Blood pressure: 136/51 mmHg Physical exam ECO Constitutional: Pleasant, in no acute distress, normal weight, ambulates without an assistive device. Procedures Urodynamic study on 03/21/2022: No recorded first sensation. Normal bladder capacity and compliance. Voids with Valsalva effort only with no demonstrable detrusor contraction with an elevated postvoid residual. Findings consistent with an acontractile bladder. 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 Henok Chery is a 86 y.o. 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 I have reviewed the pertinent history, laboratory, and imaging studies. The patient was hopeful to complete a Rezum procedure to reduce his prostatic obstruction; however, he is not a good candidate after demonstrating an acontractile bladder on urodynamics study. In this setting, we will proceed with palliative radiation. I reviewed options for multiple palliative regimens ranging from 3 to 20 fractions. The patient was not interested in more aggressive doses that potentially could provide more durable local control. We will plan on treating to 3600 cGy in 6 fractions delivered once or twice per we ek. We would plan on treating the whole bladder and the prostate given the proximity of the tumor tothe prostate and uncertainty within the area. The patient further is interested in pursuing a suprapubic catheter and is in contact with urology. We discussed the logistics of radiation simulation, planning, and daily treatment. We also reviewed the acute and late toxicities associated with treatment. The patient displayed understanding of the risks and benefits and was agreeable to proceed. We will plan for CT simulation today, 03/26/2022, and in itiation of treatment on approximately 03/29/2022. All questions were answered to the patient's satisfaction. Our departmental contact information was provided to the patient who was encouraged to contact the Department of Radiation Oncology with further questions or concerns. Dr. Manny Anderson is the tax consultant; please see attestation for further details. Harrison Lennon M.D., M.S. Associated attestation - Manny Anderson M.D. - 03/26/2022 4:46 PM CDT I saw and evaluated the patient and participated in the andrade portions of the service. I reviewed the documentation of Harrison Lennon M.D. and agree with his findings and plan. In brief, Mr. Henok Chery is an 86 y.o. 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 Unfortunately, the Rezum procedure was deemed unlikely to be successful, so he has not gone forward with that. His is quite frustrated about this and that the resultant delay. 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 We had him scheduled for a planning CT that same day but they chose to wait. They acknowledged this. I again recommend palliative radiotherapy to a dose of 36 Gy in 6 fractions given twice weekly. The patient and his have concerns about follow-up after that. We will figure out if his follow-up visit with me, his primary physician, Dr. Edwards, or with one of our medical oncology colleagues at [facility] at the end of his treatment course. The patient and his spouse verbally stated that they would like to proceed with treatment. The consent form was signed. He will undergo CT simulation today. We will endeavor to begin treatment on April 02, 2022. The patient and his spouse verbalized satisfaction with this plan. I spent a total of 10 minutes with the patient, 10 minutes of which were spent in counseling and coordinating care. Signed by: Manny Anderson M.D. 03/26/2022 4:46 PM CDT [facility] [address] [place] [address] documented in this encounter Plan of Treatment Upcoming Encounters Date Type Specialty Care Team Description 08/20/2022 Appointment Radiology Claude Loaiza MPAS, P.A.-C. [address] [place] [phone] (Octavio christensen) 08/20/2022 Appointment Radiology Claude Loaiza MPAS, P.A.-C. [address] [place] [phone] (Octavio christensen) 08/22/2022 Virtual Visit Urology Gibran Ruvalcaba M.D. [address] [place], [place] [phone] (Octavio christensen) Scheduled Referrals Name Type Priority Associated Order Schedule Diagnoses Radiation Oncology Outpatient Referral Routine On ce for 1 office visit Occurrences sta rting (clinic) 03/26/2022 unti l 03/26/2022 documented as of this encounter Visit Diagnoses Diagnosis Malignant Neoplasm Of Bladder (HCC) - Pr imary documented in this encounter Care Teams Distributor Cleaner Relationship Specialty Start Date End Date Elsewhere, Pcp PCP - General Internal Medicine 01/14/22 documented as of this encounter
--- OUTSIDE RECORDS SUMMARY | 2022-07-31 11:33 | XMS_ITS | Encounter Summary ---
:1935 Author Organization [facility] Address [address] [place] [address] Care Team Providers Name Role Phone Elsewhere, Pcp Primary Care Provider Unavailable Encounter Details Date Type Department Care Team Description 04/19/2022 Hospital Encounter Department of Radiation Calin Anderson, Oncology in [address] [address] [place] [phone] Social History Tobacco Use Types Packs/Day Years [...] you attend buddhism or Patient refused 2021 rastafari services? Do you belong to any clubs or No 05/17/2022 organizations such as buddhism groups, unions, fraternal or athletic groups, or [...] place to sleep or slept in a fci (including now)? 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 [address] [place] [phone] (Wo rk) 08/20/2022 Appointment Radiology Claude Loaiza MPAS, P.A.-C. [address] [place], [place] [phone] (Wo rk) 08/22/2022 Virtual Visit Urology Gibran Ruvalcaba M.D. [address] [place], [place] [phone] (Wo rk) documented as of this encounter Visit Diagnoses Not on filedocumented in this encounter Care Teams Primary Education Professor Relationship Specialty Start Date End Date Elsewhere, Pcp PCP - General Internal Medicine 01/14/22 documented as of this encounter
--- OUTSIDE RECORDS SUMMARY | 2022-07-31 11:33 | XMS_ITS | Encounter Summary ---
:1935 Author Organization [facility] Address [address] [place] [address] Care Team Providers Name Role Phone Elsewhere, Pcp Primary Care Provider Unavailable Encounter Details Date Type Department Care Team Description 04/12/2022 Hospital Encounter Department of Radiation Calin Anderson, Oncology in [address] [place] [address] [id number] [phone] Social History Tobacco Use Types Packs/Day Years [...] or relatives? How often do you attend jain or Patient refused 2021 mu-ism services? Do you belong to any clubs or No 05/17/2022 organizations such as jain groups, unions, fraternal or athletic groups, or [...] place to sleep or slept in a assisted (including now)? 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 [address] [place] [address] [phone] (Wo rk) 08/20/2022 Appointment Radiology Claude Loaiza MPAS, P.A.-C. [address] [place], [place] [phone] (Wo rk) 08/22/2022 Virtual Visit Urology Girban Ruvalcaba M.D. [address] [place], [place] [phone] (Wo rk) documented as of this encounter Visit Diagnoses Not on filedocumented in this encounter Care Teams Doctor Of Dental Medicine Relationship Specialty Start Date End Date Elsewhere, Pcp PCP - General Internal Medicine 01/14/22 documented as of this encounter
--- OUTSIDE RECORDS SUMMARY | 2022-07-31 11:33 | XMS_ITS | Encounter Summary ---
:1935 Author Organization [facility] Address [address] [place] [id number] Care Team Providers Name Role Phone Elsewhere, Pcp Primary Care Provider Unavailable Reason for Visit Reason Comments Neph Tube Question Encounter Details Date Type Department Care Team Description 05/09/2022 Clinical Communication Department of Bassam Knight ph Tube Question [facility], [address] [place] [address] [place] [phone] [place], [place] [phone] (Work) [phone] Social History Tobacco Use Types Packs/Day Years [...] or relatives? How often do you attend temple or Patient refused 2021 voodoo services? Do you belong to any clubs or No 05/17/2022 organizations such as temple groups, unions, fraternal or athletic groups, or [...] slept in a long term (including now)? 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 - 05/09/2022 2:54 PM CDT SUBJECTIVE CHIEF COMPLAINT / REASON FOR CALL Neph Tube Question Information Discussed Left nephrostomy tube. Called and spoke with Zaida, the patient's home health nurse. She states that the patient has been having some sediment in the urine and also some white stringy stuff. Patient does not have fever, chills, foul smelling urine, no drainage at the site, no pain. No blood in the urine or clots. The tubeis draining fine. I advised that the nurse attempt to flush the nephrostomy tube to ensure that it was not potentially going to plug up with mucous or sediment. We reviewed this procedure. I advised that if symptoms change or worsen to let us know. Understanding was indicated. PLAN Disposition/Recommendation: notified provider and awaiting recommendations and recommended continue engagement in self-management activities Information/Education: not applicable Caller agreeable to plan of care: yes The following references were used: Supervised by Shayna Lozada RN ([phone]) Telephone Encounter - Shelley Heath - 05/09/2022 2:34 PM CDT Zaida, a nurse with [facility] called to ask about some sediment that is in Mr. Chery's neph tube bag. She says it's kind of white in color and stringy looking. She's not sure if that's normal or something to be concerned about. She says he doesn't have any signs of any infection. She can be reached at [phone]. Thanks! documented in this encounter Plan of Treatment Upcoming Encounters Date Type Specialty Care Team Description 08/20/2022 Appointment Radiology Claude Loaiza MPAS PJluisA.-C. [address] [place] [address] [phone] (Wo rk) 08/20/2022 Appointment Radiology Claude Loaiza MPAS P.A.-CJluis [address] [place] [address] [phone] (Wo rk) 08/22/2022 Virtual Visit Urology Gibran Ruvalcaba M.D. [address] [place] [address] [phone] (Wo rk) documented as of this encounter Visit Diagnoses Not on filedocumented in this encounter Care Teams Softwood Faller Relationship Specialty Start Date End Date Elsewhere, Pcp PCP - General Internal Medicine 01/14/22 documented as of this encounter
--- OUTSIDE RECORDS SUMMARY | 2022-07-31 11:33 | XMS_ITS | Encounter Summary ---
:1935 Author Organization [facility] Address [address] [place] [address] Care Team Providers Name Role Phone Elsewhere, Pcp Primary Care Provider Unavailable Encounter Details Date Type Department Care Team Description 03/27/2022 Clinical Communication Department of Urology Lisbeth Nguyen in [facility] [phone] [address] [facility] ([facility] [place] [address] Social History Tobacco Use Types Packs/Day Years [...] or relatives? How often do you attend bahai or Patient refused 2021 jewish services? Do you belong to any clubs or No 05/17/2022 organizations such as bahai groups, unions, fraternal or athletic groups, or [...] place to sleep or slept in a usp (including now)? 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 [address] [place] [address] [phone] (Wo rk) 08/20/2022 Appointment Radiology Claude Loaiza MPAS P.AJluis-C. [address] [place] [address] [phone] (Wo rk) 08/22/2022 Virtual Visit Urology Gibran Ruvalcaba M.D. [address] [place] [address] [phone] (Wo rk) documented as of this encounter Visit Diagnoses Not on filedocumented in this encounter Care Teams Field Contact Person Relationship Specialty Start Date End Date Elsewhere, Pcp PCP - General Internal Medicine 01/14/22 documented as of this encounter
--- OUTSIDE RECORDS SUMMARY | 2022-07-31 11:33 | XMS_ITS | Encounter Summary ---
:1935 Author Organization [facility] Address [address] [place] [address] Care Team Providers Name Role Phone Elsewhere, Pcp Primary Care Provider Unavailable Encounter Details Date Type Department Care Team Description 03/26/2022 Clinical Communication Department of Radiology Harmony Starks in [facility] lonny A, R.N. [address] [place] [address] [address] [place] [phone] Social History Tobacco Use Types Packs/Day Years [...] or relatives? How often do you attend episcopal or Patient refused 2021 druze services? Do you belong to any clubs or No 05/17/2022 organizations such as episcopal groups, unions, fraternal or athletic groups, or [...] or slept in a jail (including now)? 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 Sethi to schedule Mr. Chery for Suprapubic catheter placement. I have Mr. Chery scheduled to undergo Suprapubic catheter placement at [facility] with Dr. Poe on 04/02/2022. The patient is scheduled to report to [facility], [facility] Anthony Art MD the morning of the procedure. ??? Patient is not on blood thinners. ??? Patient is diabetic. ??? Villarreal catheter and left nephrostomy tube currently in place. ??? COVID 19 PCR testing to be completed on: 04/01/2022. ??? Urology nurse education scheduled on 04/01/2022. ??? CENTERLESS GRINDER SET UP OPERATOR needed for procedure. This procedure is scheduled as an outpatient procedure. Dr. Sethi's team to notify the patient of these appointments. Labs: 02/22/2022, which may be reviewed in the patient's EMR. New labs scheduled to be drawn 04/01/2022 EC02/18/2022, which may be reviewed in the patient's EMR. Addendum:03/28/22 11:00 AM CDT I received a request from the urology team to reschedule Mr. Chery's suprapubic catheter placement. I have Mr. Chery rescheduled to undergo Suprapubic catheter placement at [facility] with Dr. Wu on 05/07/2022. The patient is scheduled to report to [facility], [facility] Anthony Art MD at 9:00 a.m. the morning of the procedure. ??? COVID 19 PCR testing to be completed on: 05/03/2022. ??? CENTERLESS GRINDER SET UP OPERATOR needed for procedure. documented in this encounter Plan of Treatment Upcoming Encounters Date Type Specialty Care Team Description 08/20/2022 Appointment Radiology Claude Loaiza, GARCIA, P.A.-C. [address] [place] [address] [phone] (Wo rk) 08/20/2022 Appointment Radiology Claude Loaiza MPAS, P.A.-C. [address] [place] [phone] (Wo rk) 08/22/2022 Virtual Visit Urology Gibran Ruvalcaba M.D. [address] [place] [address] [phone] (Wo rk) documented as of this encounter Visit Diagnoses Not on filedocumented in this encounter Care Teams Emergency Services Director Relationship Specialty Start Date End Date Elsewhere, Pcp PCP - General Internal Medicine 01/14/22 documented as of this encounter
--- OUTSIDE RECORDS SUMMARY | 2022-07-31 11:33 | XMS_ITS | Encounter Summary ---
:1935 Author Organization [facility] Address [address] [place] [address] Care Team Providers Name Role Phone Elsewhere, Pcp Primary Care Provider Unavailable Reason for Referral Radiation Therapy (Routine) - Authorized Specialty Diagnoses / Procedures Referred By Contact Refer red To Contact Diagnoses Malignant Neoplasm Of Bladder (HCC) Manny Anderson M.D. [facility] Procedures Management Visit [address] [place] [phone] Referral ID Status Reason Start Date Expiration Date Visits V isits Requested Authorized [id number] Authorized 03/05/2022 03/05/2023 10 10 Reason for Visit Radiation Therapy (Routine) - Authorized Specialty Diagnoses / Procedures Referred By Contact Refer red To Contact Diagnoses Malignant Neoplasm Of Bladder (HCC) [facility]. [facility] Procedures Management Visit [address] [place], [place] [phone] Referral ID Status Reason Start Date Expiration Date Visits V isits Requested Authorized [id number] Authorized 03/05/2022 03/05/2023 10 10 Encounter Details Date Type Department Care Team Description 04/02/2022 Hospital Encounter Department of Manny Anderson Neoplasm Radiation Oncology Ashtyn Dubois Of Bladder (HCC) in [place], [address] [place], [place] 1821 [facility] [address] [place], [place] [phone] (Work) [phone] Social History Tobacco Use Types Packs/Day Years [...] or relatives? How often do you attend orthodox or Patient refused 2021 hindu services? 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 - 04/02/2022 2:30 PM CDT SUBJECTIVE REASON FOR VISIT Evaluation for side effects while receiving radiation treatment for 1. Malignant Neoplasm Of Bladder (HCC) SUPERVISED BY: Manny Anderson M.D. ([id number]) HISTORY OF PRESENT ILLNESS Mr. Henok Chery is an 86 y.o. 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 He is now receiving twice weekly radiation therapy. Treatment Course: 1xBladder Plan ID Fractions Dose / Fraction (cGy) Dose Treated (cGy) Dose Planned (cGy) First Treatment Last Treatment Elapsed Days [id number] 04/02/2022 04/02/2022 0 Course Summary 04/02/2022 04/02/2022 0 The patient was seen and examined today with Dr. Anderson. The patient reports no discomfort at tip of penis or with his catheter. He denies clots in his urine. Minimal hematuria is noted. He denies fevers or foul smelling discharge from catheter. He continuesto have yellow discharge around outside of catheter. He continues to notice pain to back near nephrostomy tube placement; this has been present since nephrostomy tube placement. PATIENT REPORTED SYMPTOM SCREEN FATIGUE (Scale: 0 = no fatigue; 10 = worst fatigue you can imagine): 0 PAIN (Scale: 0 = no pain; 10 = worst pain you can imagine): 0 OVERALL QUALITY OF LIFE (Scale: 0 = as bad as can be; 10 = as good as can be): 5 OBJECTIVE BP (!) 125/39 (BP Location: Right arm, Patient Position: Sitting, Cuff Size: Regular) Temp 36.1 ??C (Temporal) Wt 79.9 kg BMI 26.00 kg/m?? PHYSICAL EXAM General: Alert and oriented [...] twice a week (on Tuesdays and Fridays). We will continue to see him in weekly management visits. He will contact us with any questions or concerns. We will continue with radiation treatment as planned. Signed by: Renetta Koch R.N. 04/02/2022 2:24 PM CDT I saw and evaluated the patient and participated in the andrade portions of the service. I reviewed the documentation of Renetta Koch R.N. and agree with the findings and plan. The patient appears well onexam. He is here today with his Miesha. He tolerated treatment well today. We went over his cone beam CT localization imaging together. He understands that he will see my partner Dr. Glass next week in my absence. I will see him again the following week and arrange for follow-up. He will continue with twice weekly treatment as planned. Signed by: Manny Anderson M.D. 04/02/2022 3:55 PM CDT [facility] [address] [place] [phone] documented in this encounter Plan of Treatment Upcoming Encounters Date Type Specialty Care Team Description 08/20/2022 Appointment Radiology Claude Loaiza MPAS, P.A.-C. [address] [place], [place] [address] [phone] (Octavio christensen) 08/20/2022 Appointment Radiology Claude Loaiza MPAS, P.A.-C. [address] [place], [place] [address] [phone] (Octavio christensen) 08/22/2022 Virtual Visit Urology Gibran Ruvalcaba M.D. [address] [place], [place] 55 [phone] (Octavio christensen) Scheduled Orders Name Type Priority Associated Diagnoses Order S chedule Management Visit Radiation Oncology Routine Malignant Neoplasm Once for 1 Of Bladder (HCC) Occurrences starting 04/02/2022 unti l 04/02/2022 documented as of this encounter Visit Diagnoses Diagnosis Malignant Neoplasm Of Bladder (HCC) documented in this encounter Care Teams Emergency Response Technician Relationship Specialty Start Date End Date Elsewhere, Pcp PCP - General Internal Medicine 01/14/22 documented as of this encounter
--- OUTSIDE RECORDS SUMMARY | 2022-07-31 11:33 | XMS_ITS | Encounter Summary ---
:1935 Author Organization [facility] Address [address] [place] [address] Care Team Providers Name Role Phone Elsewhere, Pcp Primary Care Provider Unavailable Encounter Details Date Type Department Care Team Description 03/27/2022 Clinical Communication Department of Harrison Lennon, Radiation Oncology in [place] [address] [place] [address] 1821 [place] [phone] Social History Tobacco Use Types Packs/Day Years [...] you attend confucianism or Patient refused 2021 nondenominational services? Do you belong to any clubs [...] or slept in a mcfp (including now)? 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 - 03/27/2022 4:49 PM CDT Radiation Oncology 03/27/22 Henok Chery Phone Call: I spoke to the patient's on the phone today. I discussed that Dr. Sethi and I had reviewed the best coordination of the patient's upcoming treatments. We planned for palliative radiation to start 04/02 and finished on 04/19. The patient should then wait 2-4 weeks for healing and undergo suprapubic catheter placement in mid- to late-April. Dr. Sethi will coordinate the suprapubic catheter placement. The patient's was upset that she had arranged appointments for the suprapubic catheter placement already that now needed to be moved. She expressed a possible desire for a second opinion from outside of [place]. I informed her that we will keep the appointments as outlined above but can change them if they desire. Harrison Lennon M.D., M.S. documented in this encounter Plan of Treatment Upcoming Encounters Date Type Specialty Care Team Description 08/20/2022 Appointment Radiology Claude Loaiza MPAS, P.A.-C. [address] [place], [place] 55 [phone] (Octavio christensen) 08/20/2022 Appointment Radiology Claude Loaiza MPAS, P.A.-C. [address] [place], [place] 55 [phone] (Octavio christensen) 08/22/2022 Virtual Visit Urology Gibran Ruvalcaba M.D. [address] [place], [place] [phone] (Wo rk) documented as of this encounter Visit Diagnoses Not on filedocumented in this encounter Care Teams Instructional Facilitator Relationship Specialty Start Date End Date Elsewhere, Pcp PCP - General Internal Medicine 01/14/22 documented as of this encounter
--- OUTSIDE RECORDS SUMMARY | 2022-07-31 11:33 | XMS_ITS | Encounter Summary ---
:1935 Author Organization [facility] Address [address] [place] [address] Care Team Providers Name Role Phone Elsewhere, Pcp Primary Care Provider Unavailable Reason for Referral MRI/CAT/PET Scan (Routine) - Closed Specialty Diagnoses / Procedures Referred By Contact Refer red To Contact Radiology Diagnoses Hydronephrosis Armida Botello APRN, [facility] Procedures CT Urogram without and with IV Contrast C.N.P., D.N.P. [address] [place], [place] [address] Referral ID Status Reason Start Date Expiration Date Visits Requ ested Visits Authorized [id number] Closed 05/17/2022 05/17/2023 1 1 utpatient (Routine) - Closed Specialty Diagnoses / Procedures Referred By Contact Refer red To Contact Diagnoses Hydronephrosis Malignant Neoplasm Of Bladder (HCC) Armida Botello APRN, [facility] Procedures URO Cystoscopy (general) C.N.P., D.N.P. [address] [place] [address] Referral ID Status Reason Start Date Expiration Date Visits Requ ested Visits Authorized [id number] Closed 05/17/2022 05/17/2023 1 1 utpatient (Routine) - Closed Specialty Diagnoses / Procedures Referred By Contact Refer red To Contact Urology Armida Botello APRN, C.N.P., [facility] D.N.P. [address] [place] [phone] Referral ID Status Reason Start Date Expiration Date Visits Requ ested Visits Authorized [id number] Closed 05/17/2022 05/17/2023 1 1 utpatient (Routine) - Closed Specialty Diagnoses / Procedures Referred By Contact Refer red To Contact Diagnoses Hydronephrosis Malignant Neoplasm Of Bladder (HCC) Retention Urinary Armida Botello APRN, [facility] Procedures URO Urethral cath removal & voiding trial (UCO/VT) Aram.N.Ramonita, D.N.P. [address] [place] [phone] Referral ID Status Reason Start Date Expiration Date Visits Requ ested Visits Authorized [id number] Closed 05/17/2022 05/17/2023 1 1 Reason for Visit Outpatient (Routine) - Closed Specialty Diagnoses / Procedures Referred By Contact Refer red To Contact Urology Manny Anderson M .D. Alamiri, Jamal M, M.B., [address] [place] [address] B.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 How often do you attend latter-day or Patient refused 2021 scientologist services? Do you belong to any clubs or No 05/17/2022 organizations such as latter-day groups, unions, fraternal or athletic groups, or [...] or slept in a penitentiary (including now)? Education Answer Date Recorded What is the highest level of school you have completed or 12 th grade 05/17/2022 the highest degree you have received? 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 - 05/17/2022 11:00 AM CDT SUBJECTIVE REQUESTING PROVIDER Manny Anderson M.D. CHIEF COMPLAINT / REASON FOR VISIT Follow-up Patient seen on Dr. Klein's calendar HISTORY OF PRESENT ILLNESS Mr. Chery is a 86 y.o. male who presents today in follow-up. He presents in a wheelchair today accompanied by his and aqgpeemw-rp-gko. This is a patient of the chief Urology Service. 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 At that time it was felt that he was not a candidate for TURBT as his ejection fraction is quite reduced at 20-25%. Post percutaneous biopsy his hospital course was complicated by severe grosshematuria requiring multiple blood transfusions in a prolonged hospital stay. He also underwent percutaneous nephrostomy tube placement on 02/18/2022 as there was left- sided hydroureteronephrosis secondary to presumed obstruction from his bladder tumor. It was recommended he undergo 6 palliative radiotherapy sessions which were completed 04/19/2022. Patient was seen by Dr. Klein and Dr. Bradshaw 03/21/2022 for urinary retention. At that time it was recommended he undergo a formal urodynamic study and possibly Rezum outlet procedure. 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 In review of this with the patient and his family today patient's reports that she does not believe the results of the urodynamic study as he was emptying his bladder well prior to his procedures in February. Patient and his family present today with multiple complaints. They report unclear communication as to what his options and next steps are. They are requesting a trial of voiding to remove his urethralcatheter. Previously patient was set up for an SP tube however they would like to avoid that if at all possible. The urethral catheter is quite uncomfortable for the patient and both his hvnofuir-ln-fsj and report he was able to urinate well on his own prior to his percutaneous biopsy. In addition, they report they are unsure as to how they are supposed to be monitoring the success of radiation therapy. They would be interested in removing his nephrostomy tube in the future. Per their report and my review of the patient's chart there is no evidence of metastatic disease. The following portions of the patient's history were reviewed and updated as appropriate: allergies,current medications, family history, medical history, social history, surgical history and problem list. REVIEW OF SYSTEMS ENT: Positive for difficulty hearing. Cardiovascular: Positive for swelling in the legs or feet. The following systems were negative: Constitutional, Skin, Eyes, Respiratory, Gastrointestinal, Genitourinary, Hematologic, Musculoskeletal, Neurological, Psychiatric OBJECTIVE PHYSICAL EXAMINATION Constitutional: He is oriented to person, place, and time. He appears well-developed. HENT: Head: Normocephalic and atraumatic. Eyes: Conjunctivae are normal. Pulmonary/Chest: Effort normal. Neurological: He is alert and oriented to person, place, and time. Skin: Skin is warm. Psychiatric: He has a normal mood and affect. His behavior is normal. DIAGNOSTICS Laboratory: Lab Results Component Value Date NA 137 02/22/2022 CL 101 02/22/2022 BUN 29 (H) 02/22/2022 HGB 7.6 (L) 02/22/2022 HCT 25.0 (L) 02/22/2022 WBC 9.5 02/22/2022 Lab Results Component Value Date/Time CREATININE 1.38 (H) 02/22/2022 03:59 AM CREATININE 1.42 (H) 02/21/2022 03:46 AM CREATININE 1.35 02/20/2022 03:30 AM CREATININE 1.25 02/19/2022 03:33 AM CREATININE 1.09 02/07/2022 09:26 AM CREATININE 1.01 01/14/2022 05:03 PM Imaging: No results found. ASSESSMENT / PLAN #1 Malignant neoplasm of the bladder #2 Hydroureteronephrosis requiring nephrostomy tube management #3 History of urinary retention Dr. Klein and I met with the patient and his family today in the clinic. Patient and his family were understandably frustrated at today's visit. We apologized for the miscommunication the patient andhis family felt they had encountered. We discussed that he can proceed with a trial of voiding in the clinic today. Discussed that should he not be able to void or is unable to complete self catheterization we would have his urethral catheter replaced. Patient and his family voiced understanding about this and were willing to learn CIC. patti placed orders for voiding trial and CIC education today. In regard to further management of his known bladder cancer. Dr. Klein suggested referral to 1 of the bladder oncologic surgeons within our department. I have placed orders for a cystoscopy, urine cytology, and updated CT urogram after completion of his radiologic therapy and office visit with 1 of our oncologic surgeons per Dr. Klein's recommendation. Scheduling will help us group these in orderfor this to be most convenient for the patient. Discussed that they should talk with the bladder cancer provider they meet about possible removal of the nephrostomy tube. Discussed that that is done inInterventional Radiology. Plan: -uco with void trial and CIC Education today -cystoscopy, urine cytology, CT urogram and office visit with bladder cancer provider Bassam Klein M.D. - 05/17/2022 11:00 AM CDT I have personally reviewed the past medical history, pertinent review of systems, family history, surgical history and physical exam. I have met with and evaluated the patient. I have discussed the case with my clinical team and I agree with the plan and action as outlined by my team documented in this encounter Plan of Treatment Upcoming Encounters Date Type Specialty Care Team Description 08/20/2022 Appointment Radiology Claude Loaiza MPAS P.A.-CJluis [address] [place] [phone] (Octavio christensen) 08/20/2022 Appointment Radiology Claude Loaiza MPAS, P.A.-C. [address] [place] [phone] (Octavio christensen) 08/22/2022 Virtual Visit Urology Gibran Ruvalcaba M.D. [address] [place] [phone] (Octavio christensen) Scheduled Orders Name Type Priority Associated Diagnoses Order S chedule URO Urethral cath Procedure Routine Hydronephrosis Expected: removal & voiding Malignant Neoplasm Of 0 05/17/2022, Expires: trial (UCO/VT) Bladder (HCC) 08/17/2023 Retention Urinary Scheduled Referrals Name Type Priority Associated Diagnoses Order S [facility] Urology office Outpatient Referral Routine Expect ed: visit (clinic) 05/17/2022 (Approximate), Expires: 08/17/2023 documented as of this encounter Results URO Cystoscopy (general) (06/03/2022 8:51 AM CDT) Specimen (Source) Anatomical Location Collection Method / Collectio n Time Received Time / Laterality Volume Narrative Lo Sewell APRN, C.N.P., D.N.P. - 06/03/2022 8:51 AM CDT Lo Sewell APRN, C.N.P., D.N.P. ? 06/04/2022 ??9:48 AM URO Cystoscopy (general) Date/Time: 06/03/2022 8:51 AM Performed by: Lo Sewell APRN, C .N.P., D.N.P. Authorized by: Armida Botello, Lanny.N.P. , R.N. Care team members present 1. Lo Sewell APRN, C.N.P., D.N. P. 2. Aby Jackson, L.P.N. Additional procedures performed: cystosc opy ?? PROCEDURE DETAILS The patient was brought to the cystoscop y suite and placed in the lithotomy position. The patient was prep ped and draped in the standard fashion. ??A FLEXIBLE CYSTOSCOPE was ins erted through the urethra. 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 Unable to transverse cystosco pe related to notable discomfort. Given patient discomfort the procedure w as evacuated. Cystoscope was removed. ??He is currently performing in termittent catheterization with 14 Cameroonian catheter. 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
--- OUTSIDE RECORDS SUMMARY | 2022-07-31 11:33 | XMS_ITS | Encounter Summary ---
:1935 Author Organization [facility] Address [address] [place] [address] Care Team Providers Name Role Phone Elsewhere, Pcp Primary Care Provider Unavailable Reason for Visit Reason Comments Appointment Pre-visit Testing Orders Encounter Details Date Type Department Care Team Description 03/26/2022 Clinical Communication Department of Adonay Sethi; Urology in [place], Pre-visit Test aidee Batista, Ph.D. Orders [place] [address] [place] [address] Social History Tobacco Use Types Packs/Day Years [...] or relatives? How often do you attend worship or Patient refused 2021 anabaptist services? Do you belong to any clubs or No 05/17/2022 organizations such as worship groups, unions, fraternal or athletic groups, or [...] place to sleep or slept in a long-term (including now)? 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 If you can please call her back., Thank you. Telephone Encounter - Jeff Ibarra - 03/26/2022 4:16 PM CDT Pts Lucille calls today very frustrated as pt has been scheduled for appts and an IR procedure for 04/01 & 04/02 unaware this was happening. Pt has an appt to do Radiation Therapy in [place] 04/02. Lucille states they cannot do that all . Lucille would like a call to discuss what is happening @ [phone]. Thank you. documented in this encounter Plan of Treatment Upcoming Encounters Date Type Specialty Care Team Description 08/20/2022 Appointment Radiology Claude Loaiza MPAS, PJluisA.-C. [address] [place], [place] [phone] (Octavio christensen) 08/20/2022 Appointment Radiology Claude Loaiza MPAS, P.A.-C. [address] [place] [phone] (Octavio christensen) 08/22/2022 Virtual Visit Urology Gibran Ruvalcaba M.D. [address] [place], [place] [phone] (Octavio christensen) documented as of this encounter Visit Diagnoses Not on filedocumented in this encounter Care Teams Veneer Sorter Relationship Specialty Start Date End Date Elsewhere, Pcp PCP - General Internal Medicine 01/14/22 documented as of this encounter
--- OUTSIDE RECORDS SUMMARY | 2022-07-31 11:33 | XMS_ITS | Encounter Summary ---
:[address] [facility] Address [address] [place] [address] Care Team Providers Name Role Phone Elsewhere, Pcp Primary Care Provider Unavailable Encounter Details Date Type Department Care Team Description 04/09/2022 Hospital Encounter Department of Radiation Calin Anderson, Oncology in [address] [place] [address] [phone] Social History Tobacco Use Types Packs/Day Years [...] or relatives? How often do you attend mormonism or Patient refused 2021 orthodoxy services? Do you belong to any clubs or No 05/17/2022 organizations such as mormonism groups, unions, fraternal or athletic groups, or [...] place to sleep or slept in a longterm (including now)? 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 [address] [place] [address] [phone] (Wo rk) 08/20/2022 Appointment Radiology Claude Loaiza MPAS, P.A.-C. [address] [place], [place] [phone] (Wo rk) 08/22/2022 Virtual Visit Urology Gibran Ruvalcaba M.D. [address] [place], [place] [phone] (Wo rk) documented as of this encounter Visit Diagnoses Not on filedocumented in this encounter Care Teams Microsoft Architect Relationship Specialty Start Date End Date Elsewhere, Pcp PCP - General Internal Medicine 01/14/22 documented as of this encounter
--- OUTSIDE RECORDS SUMMARY | 2022-07-31 11:33 | XMS_ITS | Encounter Summary ---
:1935 Author Organization [facility] Address [address] [place] [address] Care Team Providers Name Role Phone Elsewhere, Pcp Primary Care Provider Unavailable Encounter Details Date Type Department Care Team Description 04/16/2022 Hospital Encounter Department of Radiation Calin Anderson, Oncology in [address] [place] [phone] Social History Tobacco Use Types Packs/Day Years [...] or relatives? How often do you attend sikh or Patient refused 2021 latter day services? Do you belong to any clubs or No 05/17/2022 organizations such as sikh groups, unions, fraternal or athletic groups, or [...] place to sleep or slept in a [place] [facility] [place] (including now)? 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 [address] [place] [address] [phone] (Wo rk) 08/20/2022 Appointment Radiology Claude Loaiza MPAS, P.A.-C. [address] [place], [place] [phone] (Wo rk) 08/22/2022 Virtual Visit Urology Gibran Ruvalcaba M.D. [address] [place], [place] [phone] (Wo rk) documented as of this encounter Visit Diagnoses Not on filedocumented in this encounter Care Teams Cardiopulmonary Technologist Relationship Specialty Start Date End Date Elsewhere, Pcp PCP - General Internal Medicine 01/14/22 documented as of this encounter
--- OUTSIDE RECORDS SUMMARY | 2022-07-31 11:33 | XMS_ITS | Encounter Summary ---
:1935 Author Organization [facility] Address [address] [place] [address] Care Team Providers Name Role Phone Elsewhere, Pcp Primary Care Provider Unavailable Encounter Details Date Type Department Care Team Description 04/02/2022 Hospital Encounter Department of Radiation Calin Anderson, Oncology in [address] [place] [phone] Social History Tobacco Use Types Packs/Day Years [...] or relatives? How often do you attend hinduism or Patient refused 2021 jain services? 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 [address] [place] [address] [phone] (Wo rk) 08/20/2022 Appointment Radiology Claude Loaiza MPAS, P.A.-C. [address] [place], [place] [phone] (Wo rk) 08/22/2022 Virtual Visit Urology Gibran Ruvalcaba M.D. [address] [place], [place] [phone] (Wo rk) documented as of this encounter Visit Diagnoses Not on filedocumented in this encounter Care Teams Training Development Specialist Relationship Specialty Start Date End Date Elsewhere, Pcp PCP - General Internal Medicine 01/14/22 documented as of this encounter
--- OUTSIDE RECORDS SUMMARY | 2022-07-31 11:33 | XMS_ITS | Encounter Summary ---
:1935 Author Organization [facility] Address [address] [place] [address] Care Team Providers Name Role Phone Elsewhere, Pcp Primary Care Provider Unavailable Reason for Referral Radiation Therapy (Routine) - Closed Specialty Diagnoses / Procedures Referred By Contact Refer red To Contact Diagnoses Malignant Neoplasm Of Bladder (HCC) Manny Anderson M.D. [facility] Region Procedures Initial Rad Onc Treatment Planning CT Simulation Initial Rad Onc Treatment Planning CT Simulation [address] [place] [address] Referral ID Status Reason Start Date Expiration Date Visits Requ ested Visits Authorized [id number] Closed 03/05/2022 03/05/2023 1 1 Reason for Visit Radiation Therapy (Routine) - Closed Specialty Diagnoses / Procedures Referred By Contact Refer red To Contact Diagnoses Malignant Neoplasm Of Bladder (HCC) Manny Anderson M.D. [facility] Region Procedures Initial Rad Onc Treatment Planning CT Simulation Initial Rad Onc Treatment Planning CT Simulation [address] [place], [place] [address] Referral ID Status Reason Start Date Expiration Date Visits Requ ested Visits Authorized [id number] Closed 03/05/2022 03/05/2023 1 1 Encounter Details Date Type Department Care Team Description 03/26/2022 Hospital Encounter Department of Manny Anderson Neoplasm Radiation Oncology L, M.D. Of Bladder (HCC) in [facility] [address] [place], [place] [address] [facility] [address] [place], [place] [phone] (Work) [phone] Social History Tobacco Use Types Packs/Day Years [...] or relatives? How often do you attend gnosticist or Patient refused 2021 quaker services? 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 Authorized by: Manny Anderson M.D. Simulation was performed under physician supervision based on physician order in preparation for radiation therapy. Physician was immediately available to provide assistance and direction throughout the procedure. Written consent for treatment was completed or confirmed. The patient was appropriately identified and placed in the treatment position using the necessary immobilization to ensure a reproducible treatment position. Reference sykes were placed to facilitate marking of isocenter. Area scanned:Pelvis Contrast used for the simulation procedure: None Patient position: Head first supine Custom immobilization: Vac-osorio Motion management: None Bolus: No CT guidance: Following positioning of the patient, a series of slices was obtained to be utilized intreatment planning. CT images were transferred to the [employer] treatment planning system, after a reference isocenter was determined and marked. Segmentation and treatment planning will take place priorto treatment delivery. Patient set up and imaging was appropriate and completed without incident. Process Control Tech use:No documented in this encounter Plan of Treatment Upcoming Encounters Date Type Specialty Care Team Description 08/20/2022 Appointment Radiology Claude Loaiza MPAS, P.A.-CJluis [address] [place] [phone] (Wo rk) 08/20/2022 Appointment Radiology Claude Loaiza MPAS, P.A.-C. [address] [place] [address] [phone] (Wo rk) 08/22/2022 Virtual Visit Urology Gibran Ruvalcaba M.D. [address] [place] [address] [phone] (Wo rk) documented as of this encounter Procedures Procedure Name Priority Date/Time Associated Comments Diagnosis INITIAL RAD ONC Routine 03/26/2022 3:27 PM Malignant Neoplasm Results for this TREATMENT PLANNING CDT Of Bladder (HCC) proce dure are in CT SIMULATION the results section. documented in this encounter Results Initial Rad Onc Treatment Planning CT Simulation (03/26/2022 3:27 PM CDT) Specimen (Source) Anatomical Location Collection Method / Collectio n Time Received Time / Laterality Volume Narrative [place] - 03/26/2022 3:27 PM CDT Manasa Willett, RTT ? 03/26/2022 ??3:29 PM Initial Rad Onc Treatment Planning CT Si mulation Date/Time: 03/26/2022 3:27 PM Performed by: Manny Anderson M.D. Authorized by: Manny Anderson M.D. Manny Anderson M.D. RADIATION ONCOLOGY ORDERABLE S Performing Organization Address City/State/ZIP Code Phon e Number [facility] na documented in this encounter Visit Diagnoses Diagnosis Malignant Neoplasm Of Bladder (HCC) documented in this encounter Care Teams Roof Technician Relationship Specialty Start Date End Date Elsewhere, Pcp PCP - General Internal Medicine 01/14/22 documented as of this encounter
--- OUTSIDE RECORDS SUMMARY | 2022-07-31 11:33 | XMS_ITS | Encounter Summary ---
:1935 Author Organization [facility] Address [address] [place] [address] Care Team Providers Name Role Phone Elsewhere, Pcp Primary Care Provider Unavailable Reason for Referral Radiation Therapy (Routine) - Authorized Specialty Diagnoses / Procedures Referred By Contact Refer red To Contact Diagnoses Malignant Neoplasm Of Bladder (HCC) Manny Anderson M.D. [facility] Procedures Management Visit [address] [place], [place] [address] Referral ID Status Reason Start Date Expiration Date Visits V isits Requested Authorized [id number] Authorized 03/05/2022 03/05/2023 10 10 Reason for Visit Radiation Therapy (Routine) - Authorized Specialty Diagnoses / Procedures Referred By Contact Refer red To Contact Diagnoses Malignant Neoplasm Of Bladder (HCC) Manny Anderson M.D. [facility] Procedures Management Visit [address] [place], [place] [phone] Referral ID Status Reason Start Date Expiration Date Visits V isits Requested Authorized [id number] Authorized 03/05/2022 03/05/2023 10 10 Encounter Details Date Type Department Care Team Description 04/09/2022 Hospital Encounter Department of Isidro Anderson M.D. [address] [place] [phone] Malignant Neoplasm Radiation Oncology Heladio Del Real M.D. [address] [place] [address] Of Bladder (HCC) in [place], [place] [address] [place] [address] Social History Tobacco Use Types Packs/Day Years [...] you attend orthodox or Patient refused 2021 denominational services? 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 - 04/09/2022 9:00 AM CDT SUBJECTIVE REASON FOR VISIT Evaluation for side effects while receiving radiation treatment for 1. Malignant Neoplasm Of Bladder (HCC) SUPERVISED BY: Dr. Del Real HISTORY OF PRESENT ILLNESS Mr. Henok Chery is an 86 y.o. 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 He is now receiving twice weekly radiation therapy. Treatment Course: 1xBladder Plan ID Fractions Dose / Fraction (cGy) Dose Treated (cGy) Dose Planned (cGy) First Treatment Last Treatment Elapsed Days [id number] 04/02/2022 04/09/2022 7 Course Summary 04/02/2022 04/09/2022 7 The patient was seen and examined today with Dr. Del Real. The patient reports no discomfort at tip of penis or with his catheter. He denies clots in his urine. Minimal hematuria is improving overall. He denies fevers or foul smelling discharge from catheter. He continues to notice pain to back near nephrostomy tube placement; this has been present since nephrostomy tube placement. He denies diarrhea or fevers. PATIENT REPORTED SYMPTOM SCREEN FATIGUE (Scale: 0 = no fatigue; 10 = worst fatigue you can imagine): 0 PAIN (Scale: 0 = no pain; 10 = worst pain you can imagine): 0 OVERALL QUALITY OF LIFE (Scale: 0 = as bad as can be; 10 = as good as can be): 5 OBJECTIVE BP (!) 109/45 (BP Location: Right arm, Patient Position: Sitting, Cuff Size: Regular) Pulse (!) 58 Temp 36 ??C (Temporal) Wt 77.5 kg BMI 25.22 kg/m?? PHYSICAL EXAM General: Alert and oriented [...] as planned. Signed by: Renetta Koch R.N. 04/09/2022 9:33 AM CDT I have reviewed the notes of Renetta Koch. I examined the patient. Pertinent findings: None; patient has indwelling catheter. Patient is tolerating treatment extremely well. We will proceed with planned radiation therapy see again next week. Patient advised of the following COVID safety advice from the [facility]: Stay home if you can and avoid any non-essential travel. Avoid social gatherings. Practice social distancing by keeping at least 6 feet -- about two arm lengths -- away from others if you must go out in public. Wash your hands often with soap and water for at least 20 seconds, especially after being in a public place, or after blowingyour nose, coughing or sneezing. If soap and water are not readily available, use a hand quotation clerk with at least 60% alcohol. Avoid touching your eyes, nose and mouth. Clean and disinfect household surfaces daily and high- touch surfaces frequently throughout the day. documented in this encounter Plan of Treatment Upcoming Encounters Date Type Specialty Care Team Description 08/20/2022 Appointment Radiology Claude Loaiza MPAS, P.A.-C. [address] [place] [phone] (Octavio christensen) 08/20/2022 Appointment Radiology Claude Loaiza MPAS PJluisA.-C. [address] [place] [address] [phone] (Octavio christensen) 08/22/2022 Virtual Visit Urology Gibran Ruvalcaba M.D. [address] [place] [address] [phone] (Octavio christensen) Scheduled Orders Name Type Priority Associated Diagnoses Order S chedule Management Visit Radiation Oncology Routine Malignant Neoplasm Once for 1 Of Bladder (HCC) Occurrences starting 04/09/2022 unti l 04/09/2022 documented as of this encounter Visit Diagnoses Diagnosis Malignant Neoplasm Of Bladder (HCC) documented in this encounter Care Teams Farmworker Brooder Farm Relationship Specialty Start Date End Date Elsewhere, Pcp PCP - General Internal Medicine 01/14/22 documented as of this encounter
--- OUTSIDE RECORDS SUMMARY | 2022-07-31 11:34 | XMS_ITS | Encounter Summary ---
:1935 Author Organization [facility] Address [address] [place] [address] Care Team Providers Name Role Phone Elsewhere, Pcp Primary Care Provider Unavailable Reason for Referral Outpatient (Routine) - Authorized Specialty Diagnoses / Procedures Referred By Contact Refer red To Contact Urology Kimberly Sethi M.D., Ph.D. [address] [address] Referral ID Status Reason Start Date Expiration Date Visits V isits Requested Authorized [id number] Authorized 03/25/2022 03/25/2023 1 1 Encounter Details Date Type Department Care Team Description 03/25/2022 Orders Only Department of Urology Kimberly Sethi Rete ntion Urinary in [facility] lonny Chamorro, Ph.D. Chronic (Primary Dx) [address] [place] [phone] Social History Tobacco Use Types Packs/Day Years [...] or relatives? How often do you attend mandaeism or Patient refused 2021 muslim services? Do you belong to any clubs or No 05/17/2022 organizations such as mandaeism groups, unions, fraternal or athletic groups, or [...] slept in a senior care (including now)? 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 [address] [place] [address] [phone] (Wo rk) 08/20/2022 Appointment Radiology Claude Loaiza MPAS, P.A.-C. [address] [place] [address] [phone] (Octavio rk) 08/22/2022 Virtual Visit Urology Gibran Ruvalcaba M.D. 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
--- OUTSIDE RECORDS SUMMARY | 2022-07-31 11:34 | XMS_ITS | Encounter Summary ---
:1935 Author Organization [facility] Address [address] [place] [address] Care Team Providers Name Role Phone Elsewhere, Pcp Primary Care Provider Unavailable Reason for Visit Reason Comments Rx Prior Authorization MARTY DENIED TROSPIUM CHLORIDE 20 MG TAB Encounter Details Date Type Department Care Team Description 03/05/2022 Clinical Communication Pharmacy Prior Vladimir George Rx Prior [phone] Authorization (MARTY DENIED TROSPIUM CHLORIDE 20 MG TAB) Social History Tobacco Use Types Packs/Day Years [...] or relatives? How often do you attend congregation or Patient refused 2021 shinto services? 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 The patient's health insurer has denied prior authorization for TROSPIUM CHLORIDE 20 MG TAB. A quick view of the denial reason is in this communication message. To view the electronic denial message: 1. Go to Snapshot 2. Go to the purple Medications box 3. Click on the blue Prior Authorizations link 4. Under Denied, click on the blue medication link to open and view the attachment. As the prescriber, your options are: ??? Appeal the decision by contacting the insurer directly. We have not received a denial letter containing appeal information at this time. ??? Write a new Rx for an alternative medication therapy. ??? Release the Rx to the pharmacy so the patient can pay out of pocket if they desire. To Release Rx: Open this encounter, go to Meds & Orders, click on the medication, and click the blue ???Release Rx?? button. PLEASE NOTE: If the ???Release Rx?? button is not visible, the Rx has already been released to the pharmacy. If you have questions, please reply via QuickNote to Zuleima STEARNS. Thank you, The [facility] Team documented in this encounter Plan of Treatment Upcoming Encounters Date Type Specialty Care Team Description 08/20/2022 Appointment Radiology Claude Loaiza MPAS, P.A.-C. [address] [place], [place] [phone] (Octavio christensen) 08/20/2022 Appointment Radiology Claude Loaiza MPAS, P.A.-C. [address] [place], [place] [phone] (Octavio christensen) 08/22/2022 Virtual Visit Urology Gibran Ruvalcaba M.D. [address] [place] [address] [phone] (Octavio christensen) documented as of this encounter Visit Diagnoses Not on filedocumented in this encounter Care Teams Cycle Analyst Relationship Specialty Start Date End Date Elsewhere, Pcp PCP - General Internal Medicine 01/14/22 documented as of this encounter
--- OUTSIDE RECORDS SUMMARY | 2022-07-31 11:34 | XMS_ITS | Encounter Summary ---
:1935 Author Organization [facility] Address [address] [place] [address] Care Team Providers Name Role Phone Elsewhere, Pcp Primary Care Provider Unavailable Reason for Referral Outpatient (Routine) - Closed Specialty Diagnoses / Procedures Referred By Contact Refer red To Contact Radiation Oncology Diagnoses Malignant Neoplasm Of Bladder (HCC) Cori Reece M.D. [facility] [address] [place] [phone] Referral ID Status Reason Start Date Expiration Date Visits Requ ested Visits Authorized [id number] Closed 02/26/2022 02/26/2023 1 1 Encounter Details Date Type Department Care Team Description 02/26/2022 Orders Only Department of Urology Cori Reece, Annamaria guzman Urinary (Primary Dx); in [place]ista Malignant Neoplasm Of Bladder (HCC) [place] [address] [facility] [address] [place] [phone] Social History Tobacco Use Types Packs/Day Years [...] or relatives? How often do you attend latter day or Patient refused 2021 anglican services? Do you belong to any clubs or No 05/17/2022 organizations such as latter day groups, unions, [employer]ul [employer]ing. or athletic groups, or school groups? 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 [address] [place] [address] [phone] (Octavio christensen) 08/20/2022 Appointment Radiology Claude Loaiza MPAS, P.A.-C. [address] [place] [address] [phone] (Octavio christensen) 08/22/2022 Virtual Visit Urology Gibran Ruvalcaba M.D. 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
--- OUTSIDE RECORDS SUMMARY | 2022-07-31 11:34 | XMS_ITS | Encounter Summary ---
:1935 Author Organization [facility] Address [address] [place] [address] Care Team Providers Name Role Phone Elsewhere, Pcp Primary Care Provider Unavailable Reason for Referral Radiation Therapy (Routine) - Closed Specialty Diagnoses / Procedures Referred By Contact Refer red To Contact Diagnoses Malignant Neoplasm Of Bladder (HCC) Manny Anderson M.D. [facility] Procedures Initial Rad Onc Treatment Planning CT Simulation Initial Rad Onc Treatment Planning CT Simulation [address] [place] [phone] Referral ID Status Reason Start Date Expiration Date Visits Requ ested Visits Authorized [id number] Closed 03/05/2022 03/05/2023 1 1 Outpatient (Routine) - Authorized Specialty Diagnoses / Procedures Referred By Contact Refer red To Contact Social Work Manny Anderson M .D. [facility] [address] [place] [phone] Referral ID Status Reason Start Date Expiration Date Visits V isits Requested Authorized [id number] Authorized 03/05/2022 03/05/2023 6 6 Outpatient (Routine) - Authorized Specialty Diagnoses / Procedures Referred By Contact Refer red To Contact Radiation Oncology Manny Anderson M .D. [facility] [address] [place] [phone] Referral ID Status Reason Start Date Expiration Date Visits V isits Requested Authorized [id number] Authorized 03/05/2022 03/05/2023 10 10 Radiation Therapy (Routine) - Authorized Specialty Diagnoses / Procedures Referred By Contact Refer red To Contact Diagnoses Malignant Neoplasm Of Bladder (HCC) Manny Anderson M.D. [facility] Procedures Management Visit [address] [place], [place] [phone] Referral ID Status Reason Start Date Expiration Date Visits V isits Requested Authorized [id number] Authorized 03/05/2022 03/05/2023 10 10 Radiation Therapy (Routine) - Authorized Specialty Diagnoses / Procedures Referred By Contact Refer red To Contact Diagnoses Malignant Neoplasm Of Bladder (HCC) Manny Anderson M.D. [facility] Procedures Prior Auth Rad Tx [address] [place], [place] [phone] Referral ID Status Reason Start Date Expiration Date Visits V isits Requested Authorized [id number] Authorized 03/05/2022 03/05/2023 1 1 Encounter Details Date Type Department Care Team Description 03/05/2022 Orders Only Department of Manny Anderson N eoplasm Of Radiation Oncology in [place] Bladder (HCC) (Primary [place] [address] [facility] Dx) [address] [place] [phone] Social History Tobacco Use Types Packs/Day [...] or relatives? How often do you attend gnosticism or Patient refused 2021 nondenominational services? Do you belong to any clubs or No 05/17/2022 organizations such as gnosticism groups, unions, NE[employer] or athletic groups, or school groups? 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 [address] [place] [phone] (Octavio christensen) 08/20/2022 Appointment Radiology Claude Loaiza MPAS, P.A.-CJluis [address] [place] [phone] (Octavio christensen) 08/22/2022 Virtual Visit Urology Gibran Ruvalcaba M.D. [address] [place] [address] [phone] (Octavio christensen) Scheduled Orders Name Type Priority Associated Order Schedule Diagnoses Prior Auth Rad Tx Radiation Oncology Routine Malignant Neoplas m Ordered: 03/05/2022 Of Bladder (HCC) Management Visit Radiation Oncology Routine Malignant Neoplasm 10 Occurrences Of Bladder (HCC) starting until 3 Scheduled Referrals Name Type Priority Associated Order Schedule Diagnoses Radiation Oncology Outpatient Referral Routine 10 Occurrences nurse visit starting 2021 (clinic) until 5 Social Work office Outpatient Referral Routine 6 Occurrences visit (clinic) starting 02/17 until 3 documented as of this encounter Results Initial Rad Onc Treatment Planning CT Simulation (03/26/2022 3:27 PM CDT) Specimen (Source) Anatomical Location Collection Method / Collectio n Time Received Time / Laterality Volume Narrative JAUN DIEGO LAZCANO - 03/26/2022 3:27 PM CDT Manasa Willett, RTT ? 03/26/2022 ??3:29 PM Initial Rad Onc Treatment Planning CT Si mulation Date/Time: 03/26/2022 3:27 PM Performed by: Manny Anderson M.D. Authorized by: Manny Anderson M.D. Manny Anderson M.D. RADIATION ONCOLOGY ORDERABLE S Performing Organization Address City/State/ZIP Code Phon e Number [facility] documented in this encounter Visit Diagnoses Diagnosis Malignant Neoplasm Of Bladder (HCC) - Pr imary Malignant Neoplasm Of Bladder (HCC) documented in this encounter Care Teams Spring Up Supervisor Relationship Specialty Start Date End Date Elsewhere, Pcp PCP - General Internal Medicine 01/14/22 documented as of this encounter
--- OUTSIDE RECORDS SUMMARY | 2022-07-31 11:34 | XMS_ITS | Encounter Summary ---
:1935 Author Organization [facility] Address [address] [place] [address] Care Team Providers Name Role Phone Elsewhere, Pcp Primary Care Provider Unavailable Encounter Details Date Type Department Care Team Description 02/26/2022 Orders Only Pharmacy Prior Auth [address] [phone] Social History Tobacco Use Types Packs/Day Years [...] you attend mormonism or Patient refused 2021 oriental orthodox services? 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 [address] [place] [phone] (Wo rk) 08/20/2022 Appointment Radiology Claude Loaiza MPAS P.A.-C. [address] [place] [address] [phone] (Wo rk) 08/22/2022 Virtual Visit Urology Gibran Ruvalcaba M.D. [address] [place] [address] [phone] (Wo rk) documented as of this encounter Visit Diagnoses Not on filedocumented in this encounter Care Teams Manager Personal Relationship Specialty Start Date End Date Elsewhere, Pcp PCP - General Internal Medicine 01/14/22 documented as of this encounter
--- OUTSIDE RECORDS SUMMARY | 2022-07-31 11:34 | XMS_ITS | Encounter Summary ---
:1935 Author Organization [facility] Address [address] [place] [address] Care Team Providers Name Role Phone Elsewhere, Pcp Primary Care Provider Unavailable Encounter Details Date Type Department Care Team Description 02/25/2022 Clinical Communication Department of Urology Provider, Unknown in [place], [place] [address] [place] [address] Social History Tobacco Use Types Packs/Day Years [...] or relatives? How often do you attend oriental orthodox or Patient refused 2021 religion services? 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 documented in this encounter Plan of Treatment Upcoming Encounters Date Type Specialty Care Team Description 08/20/2022 Appointment Radiology Claude Loaiza MPAS, P.A.-C. [address] [place], [place] [phone] (Wo rk) 08/20/2022 Appointment Radiology Claude Loaiza MPAS, P.A.-C. [address] [place] [address] [phone] (Wo rk) 08/22/2022 Virtual Visit Urology Gibran Ruvalcaba M.D. [address] [place] [phone] (Wo rk) documented as of this encounter Visit Diagnoses Not on filedocumented in this encounter Care Teams Trimming Assembler Relationship Specialty Start Date End Date Elsewhere, Pcp PCP - General Internal Medicine 01/14/22 documented as of this encounter
--- OUTSIDE RECORDS SUMMARY | 2022-07-31 11:34 | XMS_ITS | Encounter Summary ---
:1935 Author Organization [facility] Address [address] [place] [address] Care Team Providers Name Role Phone Elsewhere, Pcp Primary Care Provider Unavailable Encounter Details Date Type Department Care Team Description 03/21/2022 Hospital Encounter Department of Adrian David Urinary; Laboratory Medicine Mirlande Arias IV Neoplasm Of Bladder (HCC) and [facility]ology[facility] [address] [place] [phone] [place] [address] [place], [place] (Work) [phone] Social History Tobacco Use Types Packs/Day [...] or relatives? How often do you attend roman catholic or Patient refused 2021 scientology services? 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 [address] [place] [phone] (Wo rk) 08/20/2022 Appointment Radiology Claude Loaiza, GARCIA, PJluisAJluis-C. [address] [place], [place] [phone] (Wo rk) 08/22/2022 Virtual Visit Urology Gibran Ruvalcaba M.D. [address] [place], [place] [phone] (Wo rk) documented as of this encounter Visit Diagnoses Diagnosis Retention Urinary Malignant Neoplasm Of Bladder (HCC) documented in this encounter Care Teams Tool Crib Supervisor Relationship Specialty Start Date End Date Elsewhere, Pcp PCP - General Internal Medicine 01/14/22 documented as of this encounter
--- OUTSIDE RECORDS SUMMARY | 2022-07-31 11:34 | XMS_ITS | Encounter Summary ---
:1935 Author Organization [facility] Address [address] [place] [phone] Care Team Providers Name Role Phone Elsewhere, Pcp Primary Care Provider Unavailable Reason for Visit Reason Comments Urinary Retention UCO/VT Outpatient (Routine) - Closed Specialty Diagnoses / Procedures Referred By Contact Refer red To Contact Diagnoses Retention Urinary Cori Reece M.D. [facility] Procedures URO Urethral cath removal & voiding trial (UCO/VT) [address] [place] [phone] Referral ID Status Reason Start Date Expiration Date Visits Requ ested Visits Authorized [id number] Closed 02/22/2022 02/22/2023 1 1 Encounter Details Date Type Department Care Team Description 02/27/2022 Procedure visit Department of Urology Bao Reece M.D. [address] [place] [phone] Retention Urinary in [facility] Manasa Justice R.N. [address] [place] [phone] [place] [address] [phone] Social History Tobacco Use Types Packs/Day Years [...] or relatives? How often do you attend synagogue or Patient refused 2021 orthodox services? Do you belong to any clubs or No 05/17/2022 organizations such as synagogue groups, unions, fraThe Bucket [employer] or athletic groups, or school groups? How [...] or slept in a detention (including now)? 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 - 02/27/2022 10:00 AM CDT CHIEF COMPLAINT Reason for visit, urinary catheter removal post: Left nephrostomy tube placement and percutaneous bladder mass biopsy with Interventional Radiology followed by hematuria and retention on February 18, 2022. IMPRESSION/REPORT/PLAN Nursing Intervention: Patient instilled with 250 mL's sterile normal saline prior to catheter removal. Patient able to void 3 mL's clear pink urine with an ultrasound PVR of 579 mL's. To note: patient did have a fair amount of pus at the tip of his penis. Upon assessment, it was noted that there is a small area of macerated tissue on the underside of his penis. Notified service and a UA/UC was ordered and collected. Patient denies fever/chills. Patient tolerated procedure well. CHIEF COMPLAINT Henok Chery is here for indwelling hayward catheter re-insertion following a failed UCO/VT. Spoke with Dr. Conor Lakhani regarding results and he recommends placing a 18 fr coude catheter. IMPRESSION/REPORT/PLAN Nursing Intervention: 18F Coude Red Rubber inserted without difficulty. 10 mL's in balloon. clear pink urine returned. Catheter was connected to leg bag and provided patient with night bag to take home. Secured catheterwith StatLock. See flowsheets for additional details. Plan: Patient has a follow up appointment with Dr. Conor Lakhani this afternoon. The patient was provided with the following: home supplies Patient tolerated visit well. No further questions or concerns at this time. Patient dismissed. documented in this encounter Plan of Treatment Upcoming Encounters Date Type Specialty Care Team Description 08/20/2022 Appointment Radiology Claude Loaiza MPAS P.A.-C. [address] [place] [address] [phone] (Wo rk) 08/20/2022 Appointment Radiology Claude Loaiza MPAS PBe. [address] [place] [address] [phone] (Wo rk) 08/22/2022 Virtual Visit Urology Gibran Ruvalcaba M.D. [address] [place] [address] [phone] (Wo rk) documented as of this encounter Procedures Procedure Name Priority Date/Time Associated Comments Diagnosis DIPSTICK, U Routine 02/27/2022 11:20 Results for this AM CDT procedure are i n the results section. MICROSCOPIC AUTOMATED Routine 02/27/2022 11:20 Re sults for this AM CDT procedure are i n the results section. BACTERIAL CULTURE, Routine 02/27/2022 11:20 Retention Urinary Results for this AEROBIC + SUSC, URINE AM CDT proced ure are in the results section. PH, U Routine 02/27/2022 11:20 Results for this AM CDT procedure are i n the results section. OSMOLALITY, U Routine 02/27/2022 11:20 Results fo r this AM CDT procedure are i n the results section. URINALYSIS WITH Routine 02/27/2022 11:20 Retention Urinary Res ults for this MICROSCOPIC AM CDT procedure are i n the results section. documented in this encounter Results (ABNORMAL) Dipstick, Urine (02/27/2022 11:20 AM CDT) [facility] Method Time Signature Hemoglobin, Large (A) Negative 02/27/2022 DTL QL, U 11:58 AM CDT Leukocyte Moderate (A) Negative 02/27/2022 DTL Esterase, U 11:58 AM CDT Nitrite, U Negative Negative 02/27/2022 DTL 11:58 AM CDT Ketone, U Negative Negative 02/27/2022 DTL mg/dL 11:58 AM CDT Glucose, U Negative Negative 02/27/2022 DTL mg/dL 11:58 AM CDT Specimen Anatomical Collection Method Collection Time Receive d Time (Source) Location / / Volume Laterality Urine 02/27/2022 11:20 02/27/2022 AM CDT 11:29 AM CDT Conor Lakhani M.D. LAB URINE ORDERABLES Performing Organization Address City/State/ZIP Code Phon e Number [facility] - [address] [place] [address] [place] [phone] [facility] pH, Urine (02/27/2022 11:20 AM CDT) athologist Signature pH, U 5.7 4.5 - 8.0 02/27/2022 12:07 DTL PM CDT Specimen Anatomical Collection Method Collection Time Receive d Time (Source) Location / / Volume Laterality Urine 02/27/2022 11:20 02/27/2022 AM CDT 11:29 AM CDT Conor Lakhani M.D. LAB URINE ORDERABLES Performing Organization Address City/State/ZIP Code Phon e Number [facility] - [address] [place], [place] [address] [place] [address] [facility] Osmolality, Urine (02/27/2022 11:20 AM CDT) P athologist Signature Osmolality, U 288 150 - 1150 02/27/2022 DTL mOsm/kg 12:07 PM CDT Specimen Anatomical Collection Method Collection Time Receive d Time (Source) Location / / Volume Laterality Urine 02/27/2022 11:20 02/27/2022 AM CDT 11:29 AM CDT Conor Lakhani M.D. LAB URINE ORDERABLES Performing Organization Address City/[facility] Phon e Number [facility] - [address] [place], [place] [address] [place] [address] [facility] [address] [facility] (ABNORMAL) Microscopic Automated (02/27/2022 11:20 AM CDT) Patholo gist Method Time Signature Microscopy Abnormal 02/27/2022 DTL 11:58 AM CDT RBC >100 (A) <3 /hpf 02/27/2022 DTL 11:58 AM CDT Dysmorphic RBC <25 <25 % 02/27/2022 DTL 11:58 AM CDT WBC 11-20 (A) /hpf 02/27/2022 DTL 11:58 AM CDT Comment: ----REFERENCE VALUE---- 1-3 ??(Males) 1-10 (Females) Specimen Anatomical Collection Method Collection Time Receive d Time (Source) Location / / Volume Laterality Urine 02/27/2022 11:20 02/27/2022 AM CDT 11:29 AM CDT Conor Lakhani M.D. LAB URINE ORDERABLES Performing Organization Address City/[facility] Phon e Number [facility] - 200 [place], [place] [address] [place] [address] [facility] 200 [facility] Bacterial Culture, Aerobic + Susc, Urine (02/27/2022 11:20 AM CDT) [facility] Mobi Tech Method Time Signature Urine Culture No growth 02/28/2022 DTL after 1 day 8:02 AM CDT of incubation. Specimen (Source) Anatomical Collection Method Collection Time Re ceived Time Location / / Volume Laterality Urine (Urine, 02/27/2022 11:20 02/27/2022 Indwelling AM CDT 12:10 PM CDT Catheter) Comment: Specimen Source Site: Urine Conor Gopalakrishna M.D. LAB MICROBIOLOGY - GENERAL O RDERABLES Performing Organization Address City/[facility] Phon e Number [facility] - [address] [place], [place] [address] [facility] [place] [address] [facility] [address] [facility] Urinalysis with Microscopic: Urine, Catheter (02/27/2022 11:20 AM CDT) [facility] gist Method Time Signature Source Urine, Urine, 02/27/2022 DTL Catheter 11:29 AM CDT Color, U Colorless 02/27/2022 DTL 11:29 AM CDT Clarity, U Clear 02/27/2022 DTL 11:29 AM CDT Protein, U 8 <26 mg/dL 02/27/2022 DTL 12:01 PM CDT Protein/Osmol 0.28 <0.42 02/27/2022 DTL ality ratio 12:07 PM CDT Predicted 24 278 mg/24 h 02/27/2022 DTL Hr Protein 12:07 PM CDT Predicted 88-875 mg/24 h 02/27/2022 DTL Range 12:07 PM CDT Specimen Anatomical Collection Method Collection Time Receive d Time (Source) Location / / Volume Laterality Urine (Urine, 02/27/2022 11:20 02/27/2022 Catheter) AM CDT 11:29 AM CDT Conor Lakhani M.D. LAB URINE ORDERABLES Performing Organization Address [facility] Phon e Number [facility] - [address] [place], [place] [address] [facility] [place] [address] [facility] [address] documented in this encounter Visit Diagnoses Diagnosis Retention Urinary documented in this encounter Care Teams Transportation Planner Relationship Specialty Start Date End Date Elsewhere, Pcp PCP - General Internal Medicine 01/14/22 documented as of this encounter
--- OUTSIDE RECORDS SUMMARY | 2022-07-31 11:34 | XMS_ITS | Encounter Summary ---
:1935 Author Organization [facility] Address [address] [place] [address] Care Team Providers Name Role Phone Elsewhere, Pcp Primary Care Provider Unavailable Encounter Details Date Type Department Care Team Description 03/24/2022 Orders Only Department of Urology Kimberly Sethi Rete ntion Urinary in [facility] lonny Chamorro, Ph.D. Chronic (Primary Dx) [address] [place] [phone] Social History Tobacco Use Types Packs/Day Years [...] or relatives? How often do you attend christian or Patient refused 2021 rastafarian services? Do you belong to any clubs or No 05/17/2022 organizations such as christian groups, unions, fraternal or athletic groups, or [...] or slept in a residential (including now)? 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 [address] [place] [address] [phone] (Wo rk) 08/20/2022 Appointment Radiology Claude Loaiza MPAS, P.A.-C. [address] [place] [address] [phone] (Wo rk) 08/22/2022 Virtual Visit Urology Gibran Ruvalcaba M.D. [address] [place], [place] [phone] (Wo rk) Scheduled Orders Name Type Priority Associated Diagnoses Order S chedule Prothrombin Time (PT) Lab Routine Retention Urinary E xpected: 03/24/2022 Chronic (Approximate), Expires: 2022 APTT (Activated Partial Lab Routine Retention Urinary Expected: 03/24/2022 Thromboplastin Time) Chronic (Approx imate), Expires: 2022 CBC without Differential Lab Routine Retention Urinar y Expected: 03/24/2022 Chronic (Approximate), Expires: 2022 Basic Metabolic Panel Lab Routine Retention Urinary E xpected: 03/24/2022 Chronic (Approximate), Expires: 2022 documented as of this encounter Visit Diagnoses Diagnosis Retention Urinary Chronic - Primary documented in this encounter Care Teams Beater And Pulper Feeder Relationship Specialty Start Date End Date Elsewhere, Pcp PCP - General Internal Medicine 01/14/22 documented as of this encounter
--- OUTSIDE RECORDS SUMMARY | 2022-07-31 11:34 | XMS_ITS | Encounter Summary ---
:1935 Author Organization [facility] Address [address] [place] [address] Care Team Providers Name Role Phone Elsewhere, Pcp Primary Care Provider Unavailable Encounter Details Date Type Department Care Team Description 03/22/2022 Clinical Communication Department of Urology Flakita Bradshaw in Sherly Batista M.D. [address] [place] [phone] Social History Tobacco Use Types Packs/Day Years [...] you attend buddhism or Patient refused 2021 rastafarian services? 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 [address] [place] [address] [phone] (Wo rk) 08/20/2022 Appointment Radiology Claude Loaiza MPAS, P.A.-C. [address] [place] [address] [phone] (Wo rk) 08/22/2022 Virtual Visit Urology Gibran Ruvalcaba M.D. [address] [place] [address] [phone] (Wo rk) documented as of this encounter Visit Diagnoses Not on filedocumented in this encounter Care Teams Global Cto Relationship Specialty Start Date End Date Elsewhere, Pcp PCP - General Internal Medicine 01/14/22 documented as of this encounter
--- OUTSIDE RECORDS SUMMARY | 2022-07-31 11:34 | XMS_ITS | Encounter Summary ---
:1935 Author Organization [facility] Address [address] [place] [address] Care Team Providers Name Role Phone Elsewhere, Pcp Primary Care Provider Unavailable Reason for Visit Outpatient (Routine) - Closed Specialty Diagnoses / Procedures Referred By Contact Refer red To Contact Diagnoses Benign Prostatic Hyperplasia Hypertrophy With Obstruction Flakita Bradshaw M.D. Procedures URO Urodynamic study (with flow) [address] [place] [phone] Referral ID Status Reason Start Date Expiration Date Visits Requ ested Visits Authorized [id number] Closed 03/21/2022 03/21/2023 1 1 Encounter Details Date Type Department Care Team Description 03/22/2022 Procedure visit Department of Flakita Bradshaw M.D. [address] [place] [phone] Benign Prostatic Urology in Bassam Klein M.D. [address] [place] [address] [phone] Hyperplasia [place], [place] Kush Dumont [address] [place] [address] [phone] Hypertrophy With [address] [facility] Obstruction [place] [phone] Social History Tobacco Use Types Packs/Day Years [...] or relatives? How often do you attend zoroastrian or Patient refused 2021 presybeterian services? Do you belong to any clubs or No 05/17/2022 organizations such as zoroastrian groups, unions, fraStyloola or athletic groups, or school groups? 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 Flow study prior to procedure: No Amount of urine drained from bladder prior to study: 12 mls Catheter: 6 Czech Position: Sitting Fill rate: 25 ml/min EMG electrodes placed: Yes Abdominal catheter: Rectal Amount of urine drained from bladder post-study: 558 mls Patient tolerated procedure well. documented in this encounter Procedure Notes Bassam Klein M.D. - 03/22/2022 10:30 AM CDTAssociated Order(s): URO URODYNAMIC STUDY (WITH FLOW) REASON FOR VISIT: Urodynamics: The patient here for a complex urodynamics via calibrated electronic equipment and a residual urine check by ultrasound. Prior to the study the patient was catheterized for 12 cc. The patient was filled with a standard fill rate of 50 cc/min. EMG pads were present and functioningappropriately. There was no recorded 1st sensation. The study was stopped as per protocol at 500 cc infused volume Throughout the study the patient was asked to cough Valsalva. These maneuvers did not provoke any uninhibited detrusor contractions nor stress urine incontinence. There was no evidence of detrusor instability throughout the entire study. At 500 cc infused volume the study was stopped as per protocol and the patient was given permission to void. There was no demonstrable detrusor contraction and the patient voided only drops with a postvoid residual recorded at 558 cc. INTERPRETATION & IMPRESSION: 1. No recorded first sensation. 2. Normal bladder capacity. 3. Normal bladder compliance to volumes filled. 4. No evidence of detrusor instability 5. No evidence of stress incontinence. 6. EMG activity reduced appropriately during the voiding phase and there was no evidence for detrusor-sphincter dyssynergia. 7. During the voiding phase the patient voids with a Valsalva effort only with no demonstrable detrusor contraction and was only able to void drops with an elevated postvoid residual on the pressure flow. It should be noted that prior to study the patient presented with a postvoid residual of 12 cc. 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 . documented in this encounter Plan of Treatment Upcoming Encounters Date Type Specialty Care Team Description 08/20/2022 Appointment Radiology Claude Loaiza MPAS PJluisAJluis-C. [address] [place] [address] [phone] (Octavio christensen) 08/20/2022 Appointment Radiology Claude Loaiza MPAS, P.AJluis-C. [address] [place] [address] [phone] (Wo fermin) 08/22/2022 Virtual Visit Urology Gibran Ruvalcaba M.D. [address] [place] [address] [place] [phone] (Wo rk) documented as of this encounter Procedures Procedure Name Priority Date/Time Associated Diagnosis Comme nts URO URODYNAMIC STUDY Routine 03/22/2022 10:30 Benign Prostatic Results for this (WITH FLOW) AM CDT Hyperplasia procedure are i n Hypertrophy With the results Obstruction section. documented in this encounter Results URO Urodynamic study (with flow) (03/22/2022 10:30 AM CDT) Specimen (Source) Anatomical Location Collection Method / Collectio n Time Received Time / Laterality Volume Narrative Bassam Klein M.D. - 03/22/2022 10: 30 AM CDT Bassam Klein M.D. ? 03/22/2022 12:43 PM REASON FOR VISIT: Urodynamics: The patient here for a comp steph urodynamics via calibrated electronic equipment and a re sidual urine check by ultrasound. Prior to the study the patient was nathanael terized for 12 cc. The patient was filled with a standard f ill rate of 50 cc/min. ?? EMG pads were present and functioning ap propriately. ??There was no recorded 1st sensation. ??The study w as stopped as per protocol at 500 cc infused volume Throughout the study the patient was ask ed to cough Valsalva. ?? These maneuvers did not provoke any unin hibited detrusor contractions nor stress urine incontinen ce. There was no evidence of detrusor instab ility throughout the entire study. ?? At 500 cc infused volume the study was s topped as per protocol and the patient was given permission to void. ??There was no demonstrable detrusor contraction and th e patient voided only drops with a postvoid residual recorded at 558 cc. INTERPRETATION & IMPRESSION: ?? 1. ??No recorded first sensation. ?? 2. ??Normal bladder capacity. ?? 3. ??Normal bladder compliance to volume s filled. ?? 4. ??No evidence of detrusor instability 5. ??No evidence of stress incontinence. ?? 6. EMG activity reduced appropriately du ring the voiding phase and there was no evidence for detrusor-s phincter dyssynergia. ?? 7. ??During the voiding phase the patien t voids with a Valsalva effort only with no demonstrable detruso r contraction and was only able to void drops with an elevated postvoid residual on the pressure flow. ??It should be noted that prior to study the patient presented with a postvoid residu al of 12 cc. ??The findings are consistent with an acontrac tile bladder on this study with no evidence of bladder outlet obstruction. . ? Flakita Bradshaw M.D. UROLOGY ORDERABLES documented in this encounter Visit Diagnoses Diagnosis Benign Prostatic Hyperplasia Hypertrophy With Obstruction documented in this encounter Care Teams Portal Developer Relationship Specialty Start Date End Date Elsewhere, Pcp PCP - General Internal Medicine 01/14/22 documented as of this encounter
--- OUTSIDE RECORDS SUMMARY | 2022-07-31 11:34 | XMS_ITS | Encounter Summary ---
:1935 Author Organization [facility] Address [address] [place] [address] Care Team Providers Name Role Phone Elsewhere, Pcp Primary Care Provider Unavailable Encounter Details Date Type Department Care Team Description 03/08/2022 Clinical Communication Department of Harrison Lennon, Radiation Oncology in [place], M.S. [facility] [address] [place] [address] [place] [phone] Social History Tobacco Use Types Packs/Day Years [...] you attend gnosticism or Patient refused 2021 presybeterian services? 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 - 03/08/2022 4:33 PM CDT Radiation Oncology 03/08/22 Henok Chery Phone Call: I spoke to the patient's on the phone today. I discussed multiple conversations that I have hadwith multiple urologists today. I reviewed that the Rezum procedure likely could not be performed after radiation but that the Urolift procedure could. I reviewed the general recommendation that radiation be performed first to stop the bleeding and prevent tumor progression but that it remains an early stage cancer and that palliative radiation could wait. The patient's expressed that they would like to wait to see if the urology appointment could bemoved up to earlier. I reiterated that they could contact us if they change their mind or wish to move radiation sooner. Harrison Lennon M.D., M.S. documented in this encounter Plan of Treatment Upcoming Encounters Date Type Specialty Care Team Description 08/20/2022 Appointment Radiology Claude Loaiza MPAS, P.A.-C. [address] [place] [address] [phone] (Wo rk) 08/20/2022 Appointment Radiology Claude Loaiza MPAS, P.A.-C. [address] [place] [address] [phone] (Wo rk) 08/22/2022 Virtual Visit Urology Gibran Ruvalcaba M.D. [address] [place] [address] [phone] (Wo rk) documented as of this encounter Visit Diagnoses Not on filedocumented in this encounter Care Teams Tool And Die Inspector Relationship Specialty Start Date End Date Elsewhere, Pcp PCP - General Internal Medicine 01/14/22 documented as of this encounter
--- OUTSIDE RECORDS SUMMARY | 2022-07-31 11:34 | XMS_ITS | Encounter Summary ---
:1935 Author Organization [facility] Address [address] [place] [address] Care Team Providers Name Role Phone Elsewhere, Pcp Primary Care Provider Unavailable Encounter Details Date Type Department Care Team Description 02/22/2022 Orders Only Department of Urology Chasidy Lakhani Neoplasm Of in [place], [facility] lonny Perdomo M.D. Bladder (HCC) (Primary [address] [place]x) [place] [id number] Social History Tobacco Use Types Packs/Day Years [...] or relatives? How often do you attend shinto or Patient refused 2021 gnosticism services? 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 [address] [place] [address] [phone] (Wo rk) 08/22/2022 Virtual Visit Urology Gibran Ruvalcaba M.D. 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
--- OUTSIDE RECORDS SUMMARY | 2022-07-31 11:34 | XMS_ITS | Encounter Summary ---
:1935 Author Organization [facility] Address [address] [place] [id number] Care Team Providers Name Role Phone Elsewhere, Pcp Primary Care Provider Unavailable Reason for Referral Outpatient (Routine) - Closed Specialty Diagnoses / Procedures Referred By Contact Refer red To Contact Urology Diagnoses Retention Urinary Nura David IV Hendricks Trupti Chamorro [address] [place] [phone] Referral ID Status Reason Start Date Expiration Date Visits Requ ested Visits Authorized [id number] Closed 02/27/2022 02/27/2023 1 1 Scheduling Instructions PLEASE SCHEDULE WITH JACQUELINE OR PROVIDER WHO CAN DO REZUM CONSULTATION Reason for Visit Reason Comments Post-op Outpatient (Routine) - Closed Specialty Diagnoses / Procedures Referred By Contact Refer justen To Contact Urology Cori Reece M.D . [facility] [address] [place] [phone] Referral ID Status Reason Start Date Expiration Date Visits Requ ested Visits Authorized [id number] Closed 02/22/2022 02/22/2023 1 1 Encounter Details Date Type Department Care Team Description 02/27/2022 Office Visit Department of Urology Lamont Lakhani Urinary in [place] M.D. (Primary Dx) [address] [phone] Social History Tobacco Use Types Packs/Day [...] many times do you More than three alcidse es a week 05/17/2022 talk on the phone with family, friends, or neighbors? How often do you get together with friends Three times a wee k 05/17/2022 or relatives? How often do you attend mandaeism or Patient refused 2021 buddhist services? 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 - 02/27/2022 3:[address] [facility] clinic note Subjective Mr. 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 Postprocedural course complicated by significant gross hematuria requiring multi day hospital and several bloodtransfusions. Ultimately hematuria resolved and he was discharged on 02/22/2022. He was dismissed with indwelling Villarreal catheter due to urinary retention. He returns to clinic today to discuss bladder drainage management options. Earlier today, he failed voiding trial. He voided 3 cc with post void bladder scan 579 cc. An 18 Kazakh coude catheter was replaced. On my visit with the patient, he is accompanied by his and [id number]. He reports overall doing fine. The primary question is what to regarding bladder drainage. Also had a question about some seemingly purulent drainage noted on catheter removal. He denies nausea, vomiting, fevers, chills. Objective On exam, patient is awake, alert, oriented, not in distress. There is an 18 Kazakh Villarreal catheter draining clear thin fruit punch red urine, very small sediment in the tubing. No significant clots. The left-sided nephrostomy tube is draining clear yellow urine. On examination of the penis, patient is uncircumcised. Upon retraction of the foreskin, I do not appreciate any sores on the glans. There is some fibrinous exudate coming around the catheter, but no active nor copious drainage. Assessment Patient overall doing well. Hematuria is within acceptable limits - clear, thin, draining well. Apparently more red than it has been today, likely due to catheter exchange. No concern for urethral infection at this time. I think the discharge they noted was some sloughed off skin combined with moisture beneath the foreskin. I instructed them on catheter hygiene practices.Also instructed them to monitor for systemic infectious symptoms such as fevers, chills, vomiting, altered mental status. Had a long discussion with the patient and his family regarding bladder management options. Given his poor surgical candidacy and their decision to avoid general anesthesia, there were 3 main options: 1) continue indwelling urethral catheter indefinitely 2) transition to suprapubic catheter 3) consultation for consideration of Rezum treatment Did note that SPT would include risk of bleeding, as puncture would need ot be made in bladder. Thisturned them off to the idea of SPT. They were interested in Rezum. I noted that it often does not require anesthesia. I explained he would have an indwelling catheter for at least several days to a couple of weeks after Rezum, and ultimately may not be able to become independent from indwelling catheter despite Rezum. Also noted the irri tative voiding symptoms that occur following Rezum. They are interested in consultation with Rezum provider to learn more. Plan - Maintain indwelling urethral catheter - Maintain nephrostomy tube - Referral to Rezu provider (order placed, scheduling team messaged) documented in this encounter Plan of Treatment Upcoming Encounters Date Type Specialty Care Team Description 08/20/2022 Appointment Radiology Claude Loaiza, GARCIA P.A.-C. [address] [place] [address] [phone] (Wo rk) 08/20/2022 Appointment Radiology Claude Loaiza MPAS P.A.-C. [address] [place] [address] [phone] (Wo rk) 08/22/2022 Virtual Visit Urology Gibran Ruvalcaba M.D. [address] [place] [address] [phone] (Wo rk) Scheduled Referrals Name Type Priority Associated Diagnoses [facility] - General - Outpatient Referral Routine Retention Urin anita Expected: urinary retention 02/27/2022 consult (clinic) (Approximat e), Expires: 05/30/2023 documented as of this encounter Visit Diagnoses Diagnosis Retention Urinary - Primary documented in this encounter Care Teams Liner Worker Relationship Specialty Start Date End Date Elsewhere, Pcp PCP - General Internal Medicine 01/14/22 documented as of this encounter
--- OUTSIDE RECORDS SUMMARY | 2022-07-31 11:34 | XMS_ITS | Encounter Summary ---
:[address] [facility] Address [address] [place] [id number] Care Team Providers Name Role Phone Elsewhere, Pcp Primary Care Provider Unavailable Reason for Visit Reason Comments Treatment Questions Encounter Details Date Type Department Care Team Description 03/12/2022 Clinical Communication Department of [facility] in , Ashtyn Perdomo [place], [place] [address] [place] [phone] Social History Tobacco Use Types Packs/Day Years [...] or relatives? How often do you attend muslim or Patient refused 2021 rastafari services? 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 - 03/12/2022 2:[address] Rosen is unfortunately completely booked as he is preparing for jail. Another [facility] provider may be available sooner though. I'm including the [facility] scheduling team on this chain to see if thisis feasible. Telephone Encounter - Marlene Barlow - 03/12/2022 12:40 PM CDT Mr. Tapia, his , Miesha, and Desiree (friend) call in. They have been in touch with Dr. Anderson's office in Rad Onc. They are being told that he has reached out to someone in Urology via email to figure out a plan for Mr. Chery. They want to do the Rezum procedure prior to Radiation. He's sc heduled to see Dr. Rosen for a consult on 04/15. They do not want to wait this long and are hoping that they can just set up a procedure soon. Please contact them back at [phone] to discuss the plan with them. Thanks! documented in this encounter Plan of Treatment Upcoming Encounters Date Type Specialty Care Team Description 08/20/2022 Appointment Radiology Claude Loaiza MPAS, PJluisA.-C. [address] [place] [address] [phone] (Wo rk) 08/20/2022 Appointment Radiology Claude Loaiza MPAS PTarun-C. [address] [place] [address] [phone] (Wo rk) 08/22/2022 Virtual Visit Urology Gibran Ruvalcaba M.D. [address] [place], [place] [phone] (Wo rk) documented as of this encounter Visit Diagnoses Not on filedocumented in this encounter Care Teams Fulfillment Associate Relationship Specialty Start Date End Date Elsewhere, Pcp PCP - General Internal Medicine 01/14/22 documented as of this encounter
--- OUTSIDE RECORDS SUMMARY | 2022-07-31 11:34 | XMS_ITS | Encounter Summary ---
:1935 Author Organization [facility] Address [address] [place] [address] Care Team Providers Name Role Phone Elsewhere, Pcp Primary Care Provider Unavailable Reason for Referral Outpatient (Routine) - Closed Specialty Diagnoses / Procedures Referred By Contact Refer red To Contact Radiation Oncology Iris Mishra P.A.-C., [facility] [address] [place] [phone] Referral ID Status Reason Start Date Expiration Date Visits Requ ested Visits Authorized [id number] Closed 03/25/2022 03/25/2023 1 1 Encounter Details Date Type Department Care Team Description 03/25/2022 Orders Only Department of Radiation [facility] Of [facility] in [place], Eduardo, M.S. Bladder (HCC) (Primary [place] [address] [facility] Dx) [address] [place] [phone] Social History Tobacco Use Types Packs/Day Years [...] or relatives? How often do you attend baptist or Patient refused 2021 scientology services? 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 [address] [place] [phone] (Octavio christensen) 08/20/2022 Appointment Radiology Claude Loaiza MPAS, P.A.-C. [address] [place] [phone] (Octavio christensen) 08/22/2022 Virtual Visit Urology Gibran Ruvalcaba M.D. [address] [place] [phone] (Octavio christensen) Scheduled Referrals Name Type Priority Associated Diagnoses Order S jermain Radiation Oncology Outpatient Referral Routine Ex pected: office visit 03/26/2022 (clinic) (Approximate), Expires: 03/25/2023 documented as of this encounter Visit Diagnoses Diagnosis Malignant Neoplasm Of Bladder (HCC) - Pr imary documented in this encounter Care Teams Letter Carrier Relationship Specialty Start Date End Date Elsewhere, Pcp PCP - General Internal Medicine 01/14/22 documented as of this encounter
--- OUTSIDE RECORDS SUMMARY | 2022-07-31 11:34 | XMS_ITS | Encounter Summary ---
:1935 Author Organization [facility] Address [address] [place] [address] Care Team Providers Name Role Phone Elsewhere, Pcp Primary Care Provider Unavailable Reason for Referral Outpatient (Routine) - Closed Specialty Diagnoses / Procedures Referred By Contact Refer red To Contact Diagnoses Benign Prostatic Hyperplasia Hypertrophy With Obstruction Flakita Bradshaw M.D. Procedures URO Urodynamic study (with flow) [address] [place] [phone] Referral ID Status Reason Start Date Expiration Date Visits Requ ested Visits Authorized [id number] Closed 03/21/2022 03/21/2023 1 1 Reason for Visit Outpatient (Routine) - Closed Specialty Diagnoses / Procedures Referred By Contact Refer justen To Contact Urology Diagnoses Retention Urinary Nura David IV [facility] Ashtyn [address] [place] [address] Referral ID Status Reason Start Date Expiration Date Visits Requ ested Visits Authorized [id number] Closed 02/27/2022 02/27/2023 1 1 Encounter Details Date Type Department Care Team Description 03/21/2022 Comprehensive Visit Department of Bassam Klein gn Prostatic Hyperplasia Hypertrophy With Obstruction (Primary Dx); Urology in S, M.D. Retention Urinary [place], [address] [place], [place] 200 [facility] [address] [place], [place] [phone] (Work) [phone] Social History Tobacco Use Types Packs/Day Years [...] or relatives? How often do you attend hoahaoism or Patient refused 2021 mandaen services? 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 - 03/21/2022 1:30 PM CDT I have personally reviewed the past medical history, pertinent review of systems, family history, surgical history and physical exam. I have discussed the case with my clinical team and I agree with the plan and action as outlined by my team. AT Flakita Bradshaw M.D. - 03/21/2022 1:30 PM CDT SUBJECTIVE REFERRAL SOURCE The patient is being seen in consultation at the request of Nura David IV, M.D. [address] [place] [address] CHIEF COMPLAINT Urinary retention Supervised by Dr. Klein HISTORY OF PRESENT ILLNESS Mr. Chery is a pleasant 86 y.o. male who presents today for evaluation of urinary retention. He is accompanied today by his and lrynwpeq-rh-erv. For further details regarding his bladder cancer history, please refer to consultation note dated 02/08/2022. Briefly, he was diagnosed with high-grade T1 urothelial carcinoma on percutaneous biopsy from 02/18/2022. He has been evaluated by radiation oncology and will be undergoing palliative radiation therapy. Patient had left-sided hydroureteronephrosis on imaging secondary to obstruction from his bladder tumor. He underwent percutaneous nephrostomy tube placement on 02/18/2022. His postprocedural course was complicated by significant gross hematuria requiring multiple blood transfusions in prolonged hospital stay. Unfortunately, he was unableto void once his catheter was removed and he was dismissed with a catheter in place. Patient denies any prior history of acute urinary retention requiring prolonged catheterization. He denies any sensation of incomplete bladder emptying. He did endorse weak stream, hesitancy, intermittency. Denies any history of urinary incontinence. He currently has a [address] He denied any significant hematuria over the last month. Denies any frequent urinary tract infections. He states that he has been evaluated locally with a cystoscopy in the office for his bladder cancer, which he tolerated well. Never taken any medications for BPH. 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 MEDICATIONS Current Outpatient Medications: ??? amLODIPine (NORVASC) 2.5 mg tablet, Take 2.5 mg by mouth daily., Disp: , Rfl: ??? aspirin [address] tablet, Take 1 tablet by mouth daily., Disp: , Rfl: ??? buPROPion XL (WELLBUTRIN XL) 300 mg 24 hr tablet, Take 300 mg by mouth daily., Disp: , Rfl: ??? cholecalciferol (VITAMIN D3) 50 mcg (2,000 Unit) tablet, Take 50 mcg by mouth daily., Disp: , Rfl: ??? furosemide (LASIX) 20 mg tablet, Take 40 mg by mouth 2 (two) times a day., Disp: , Rfl: ??? glipiZIDE (GLUCOTROL XL) 10 mg 24 hr tablet, Take 10 mg by mouth daily with breakfast., Disp: , Rfl: ??? hydroxyurea (HYDREA) 500 mg capsule, Take 3-4 capsules by mouth daily. 1500 mg on Fri- 2000mg on Fri-Fri, Disp: , Rfl: ??? lisinopriL (PRINIVIL,ZESTRIL) 2.5 mg tablet, Take 2.5 mg by mouth daily., Disp: , Rfl: ??? methocarbamol (ROBAXIN) 750 mg tablet, TAKE 1 TO 2 TABLETS BY MOUTH EVERY 6 TO 8 HOURS NEEDEDFOR MUSCLE SPASM, Disp: , Rfl: 3 ??? nitroglycerin (NITROSTAT) 0.4 mg SL tablet, Place 0.4 mg under the tongue every 5 (five) minutesas needed for chest pain., Disp: , Rfl: ??? omeprazole (PriLOSEC) 20 mg capsule, Take 1 capsule by mouth daily., Disp: , Rfl: ??? trospium (SANCTURA) 20 mg tablet, Take 1 tablet (20 mg total) by mouth 2 (two) times a day as needed (bladder spasms)., Disp: 30 tablet, Rfl: 0 ALLERGIES Allergies Allergen Reactions ??? Penicillins Anaphylaxis and Other (see comments) ??? Beta-Blockers (Beta-Adrenergic Blocking Agts) Other (see comments) Bradycardia SOCIAL HISTORY Social History Socioeconomic History ??? Marital status: Spouse name: Not on file ??? Number of children: Not on file ??? Years of education: Not on file ??? Highest education level: Not on file Occupational History ??? Not on file Tobacco Use ??? Smoking status: Never Smoker ??? Smokeless tobacco: Never Used Substance and Sexual Activity ??? Alcohol use: Not on file ??? Drug use: Not on file ??? Sexual activity: Not on file Other Topics Concern ??? Not on file Social History Narrative ??? Not on file Social Determinants of Health Financial Resource Strain: Not on file Food Insecurity: Not on file Transportation Needs: Not on file Physical Activity: Not on file Stress: Not on file Social Connections: Not on file Intimate Partner Violence: Not on file Housing Stability: Not on file FAMILY HISTORY No family history on file. SYSTEMS REVIEW Constitutional: Positive for fatigue. Genitourinary: Positive for difficulty urinating. The following systems were negative: CV, Respiratory, GI, Musculoskeletal, Neuro OBJECTIVE PHYSICAL EXAMINATION Constitutional: He is oriented to person, place, and time. He appears well-developed. HENT: Head: Normocephalic. Eyes: Conjunctivae are normal. Pulmonary/Chest: Effort normal. Abdominal: Abdomen appears normal. Musculoskeletal: Patient is in a wheelchair. Neurological: He is alert and oriented to person, place, and time. Skin: Skin is warm and dry. Psychiatric: He has a normal mood and affect. His behavior is normal. Genitourinary: Villarreal catheter in place draining aj urine. Left nephrostomy tube draining clear urine. LABS Lab Results Component Value Date NA 137 02/22/2022 CL 101 02/22/2022 BUN 29 (H) 02/22/2022 HGB 7.6 (L) 02/22/2022 HCT 25.0 (L) 02/22/2022 WBC 9.5 02/22/2022 Lab Results Component Value Date/Time CREATININE 1.38 (H) 02/22/2022 03:59 AM CREATININE 1.42 (H) 02/21/2022 03:46 AM CREATININE 1.35 02/20/2022 03:30 AM CREATININE 1.09 02/07/2022 09:26 AM CREATININE 1.01 01/14/2022 05:03 PM No components found for: PSAPSA No results found for: PSA MICROBIOLOGY/CULTURE DATA Microbiology Results (last 30 days) Procedure Component Value - Date/Time Bacterial Culture, Aerobic + Susc, Urine [[id number]] Collected: 02/27/22 1120 Lab Status: Final result Specimen: Urine, Indwelling Catheter Updated: 02/28/22 08 Urine Culture No growth after 1 day of incubation. SARS Coronavirus 2, PCR Rapid, V [[id number]] Collected: 02/20/22 1939 Lab Status: Final result Specimen: Varies Updated: 02/20/222003 SARS CoV-2, PCR, Rapid, V Undetected Comment: ----ADDITIONAL INFORMATION---- This RT-PCR test was performed using the Simran SARS-CoV-2 and Influenza A/B Reagent assay from [employer], which has received Emergency Use Authorization(EUA) by the U.S. Food and Drug Administration. Fact sheets for this Emergency Use Authorization (EUA) assay can be found at the following links: For Healthcare Providers: https://www.fda.gov/media/767259/download For Patients: https://www.PlayerL[employer].gov/media/704079/download SARS Coronavirus 2, Source, Rapid Swab, Nasopharynx Comment: REVISED RESULTS PATHOLOGY No results found for this or any previous visit (from the past 720 hour(s)). IMAGING AND TESTS US Urinary Bladder Result Date: 02/21/2022 Impression: A Villarreal catheter has been placed. Small amount of avascular echogenic material dependently in the bladder posterior to the Villarreal catheter, which likely represents clotted blood. Irregular wall thickening of the bladder most prominent posteriorly on the left consistent with patient's biopsy-proven urothelial carcinoma. Echo Transthoracic (TTE) Result Date: 02/21/2022 Impression: Intravenous Lumason ultrasound enhancement agent(s) administered to enhance endocardial border definition. LEFT VENTRICLE:Severely enlarged left ventricular chamber size. Prominent left ventricular trabeculation. Calculated 2-D biplane volumetric left ventricular ejection fraction 25%. Left ventricular cardiac index 3.3 l/min/m2. Generalized left ventricular hypokinesis with regional variability. Elevated left ventricular filling pressure. RIGHT VENTRICLE:Moderate-severely enlarged rightventricular chamber size. Mild- moderately reduced right ventricular systolic function. Estimated right ventricular systolic pressure 50 mmHg (right atrial pressure of 15 mmHg). Estimated pulmonary artery mean pressure 36 mmHg assuming right atrial pressure of 15 mmHg. ATRIA:Severely enlarged left atrial size. Left atrial volume index 69 ml/m2. Severely enlarged right atrial size by visual estimate. CARDIAC VALVES:Trileaflet aortic valve. Thickened aortic valve. No aortic valve regurgitation. Thickened mitral valve. Mild-moderate mitral valve regurgitation. Normal pulmonary valve. Trivial pulmonary valve regurgitation. Thickened tricuspid valve. Severe tricuspid valve regurgitation. Tricuspid regurgitant volume (PISA) 68 ml. Tricuspid regurgitation ERO (PISA) 0.79 cm2. OTHER ECHO FINDINGS:Enlargedinferior vena cava size with reduced inspiratory collapse (<50%). Doppler evidence of systolic reversal in the hepatic veins. Abdominal aorta incompletely visualized. Normal abdominal aorta Doppler flow pattern. No atrial level shunt by color flow imaging. No intracardiac mass or thrombus, but the left atrial appendage cannot be visualized adequately with transthoracic echo to exclude thrombus in this location. No pericardial effusion. Attempts were made to optimize the echocardiographic images and two or more left ventricular segments were not visualized adequately to evaluate cardiac structure. The patient's current allergies and medications have been screened. Imaging enhancement agent administered per Echocardiography Contrast Administration Protocol Reference Document [id number]. Patient met an inclusion criterion and did not have contraindications in screening sections. LUNG FINDINGS:Lung ultrasound performed. Mild interstitial process (1-3 B-line(s) per zone) in both lungs. For the complete report, see the Order-Level Documents. ASSESSMENT / PLAN IMPRESSION/REPORT/PLAN #1 Retention Urinary #2 Benign Prostatic Hyperplasia Hypertrophy With Obstruction #3 High-grade T1 urothelial carcinoma #4 Left hydronephrosis in the setting of malignant obstruction, now status post percutaneous nephrostomy tube placement #5 CHF w/ EF 20-25% It was my pleasure to meet Mr. Chery, his , and his ersffkeb-ek-sry in clinic today for further discussion of urinary retention. I have personally reviewed his CT imaging and have discussed theresults with the patient. His prostate size based on imaging is approximately 65 cc. There is a small median lobe present. We discussed options for surgical treatment of BPH in the setting of urinary retention. Ultimately, success rates of surgical options are based on bladder function. Given his significant cardiac comorbidities, the patient would not be fit for a general anesthetic, and therefore we narrowed our discussion to office Rezum. The risks and benefits of the Rezum convective water vaportherapy were discussed with the patient. Risks include but are not limited to worsening of urinary symptoms (typically for a few weeks), possible need for catheterization, urinary infection, sepsis, hematuria and dysuria. Chances of de nichole retrograde ejaculation are 10-20%, ED rates thus far have been zero. 85% of men in urinary retention are able to void after the Rezum procedure. Retreatment ratesare 8% at 5 years including medications and surgery. He is aware that he would have a catheter in place for 3-4 weeks after the procedure. In order to best characterize his chance of success with resume, we discussed proceeding with urodynamics testing to assess bladder function. We will call the patient with the results. He is tentatively scheduled for office Rezum with Dr. Villarreal on 04/24/2022. If his urodynamic study demonstrates hypercontractile or a contractile bladder, patient may cancel this appointment and pursue immediate radiation treatment. Otherwise, he would like to delay radiation until after Rezum. PLAN: - UDS - Office Rezum 04/24 - Rezum education Signed by: Flakita Bradshaw M.D. 03/21/2022 3:58 PM CDT documented in this encounter Plan of Treatment Upcoming Encounters Date Type Specialty Care Team Description 08/20/2022 Appointment Radiology Claude Loaiza MPAS P.A.-C. [address] [place], [place] [phone] (Octavio christensen) 08/20/2022 Appointment Radiology Claude Loaiza MPAS P.A.-C. [address] [place] [phone] (Octavio rk) 08/22/2022 Virtual Visit Urology Gibran Ruvalcaba M.D. [address] [place], [place] [phone] (Octavio christensen) documented as of this encounter Results URO Urodynamic study (with [...] Diagnosis Benign Prostatic Hyperplasia Hypertrophy With Obstruction - Primary Retention Urinary Benign Prostatic Hyperplasia Hypertrophy With Obstruction documented in this encounter Care Teams Programmer Operator Numerical Control Relationship Specialty Start Date End Date Elsewhere, Pcp PCP - General Internal Medicine 01/14/22 documented as of this encounter
--- OUTSIDE RECORDS SUMMARY | 2022-07-31 11:34 | XMS_ITS | Encounter Summary ---
:1935 Author Organization [facility] Address [address] [place] [address] Care Team Providers Name Role Phone Elsewhere, Pcp Primary Care Provider Unavailable Encounter Details Date Type Department Care Team Description 03/22/2022 Clinical Communication Department of Urology Flakita Bradshaw in Sherly Batista M.D. [address] [place] [phone] Social History Tobacco Use Types Packs/Day Years [...] you attend gnosticist or Patient refused 2021 temple services? Do you belong to any clubs [...] or slept in a mcc (including now)? 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 - 03/22/2022 3:18 PM CDT I had an extensive discussion with the patient's over the phone regarding his urodynamics testing results. 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 As we had discussed in the office yesterday, with an acontractile bladder, Rezum has a very low likelihood of success in leaving him catheter free. Ultimately the patient's goals are to remove the catheter. Therefore, we will plan to cancel the Rezum and patient will proceed with radiation therapy. Understandably, she was very frustrated with these results. She is interested in a suprapubic catheter as Dr. David had discussed. I informed her that I will send a message to the chief team to coordinate if appropriate. Flakita Bradshaw M.D. documented in this encounter Plan of Treatment Upcoming Encounters Date Type Specialty Care Team Description 08/20/2022 Appointment Radiology Claude Loaiza MPAS, P.A.-CJluis [address] [place] [phone] (Octavio christensen) 08/20/2022 Appointment Radiology Claude Loaiza MPAS, P.A.-C. [address] [place] [phone] (Octavio christensen) 08/22/2022 Virtual Visit Urology Gibran Ruvalcaba M.D. [address] [place] [phone] (Octavio christensen) documented as of this encounter Visit Diagnoses Not on filedocumented in this encounter Care Teams Mine Foreman Relationship Specialty Start Date End Date Elsewhere, Pcp PCP - General Internal Medicine 01/14/22 documented as of this encounter
--- OUTSIDE RECORDS SUMMARY | 2022-07-31 11:34 | XMS_ITS | Encounter Summary ---
:1935 Author Organization [facility] Address [address] [place] [address] Care Team Providers Name Role Phone Elsewhere, Pcp Primary Care Provider Unavailable Encounter Details Date Type Department Care Team Description 03/21/2022 Hospital Encounter Department of Adrian David Urinary; Laboratory Medicine Mirlande Arias IV Neoplasm Of Bladder (HCC) and PathologyAshtyn [address] [place] [address], [address] [facility] [address] [place] [phone] [place] [address] (Work) [place], [place] [phone] (Fax) [phone] Social History Tobacco Use Types Packs/Day Years [...] you attend confucianism or Patient refused 2021 confucianist services? 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 [address] [place], [place] [phone] (Wo rk) 08/20/2022 Appointment Radiology Claude Loaiza MPAS, PBe. [address] [place], [place] [phone] (Wo rk) 08/22/2022 Virtual Visit Urology Gibran Ruvalcaba M.D. [address] [place], [place] [phone] (Wo rk) documented as of this encounter Procedures Procedure Name Priority Date/Time Associated Comments Diagnosis NH OSMOLALITY ASSAY Routine 03/21/2022 12:08 Resu lts for this URINE PM CDT procedure are i n the results section. DIPSTICK, U Routine 03/21/2022 12:08 Results for this PM CDT procedure are i n the results section. PH, RANDOM, U Routine 03/21/2022 12:08 Results fo r this PM CDT procedure are i n the results section. MICROSCOPIC MANUAL Routine 03/21/2022 12:08 Resul ts for this PM CDT procedure are i n the results section. URINALYSIS WITH Routine 03/21/2022 12:08 Retention Urina ry Results for this MICROSCOPIC PM CDT Malignant Neoplasm procedure are in Of Bladder (HCC) the results section. documented in this encounter Results (ABNORMAL) Dipstick, Urine (03/21/2022 12:08 PM CDT) [facility] gist Method Time Signature Hemoglobin, Large (A) Negative 03/21/2022 DTL QL, U 12:14 PM CDT Leukocyte Small (A) Negative 03/21/2022 DTL Esterase, U 12:14 PM CDT Nitrite, U Positive (A) Negative 03/21/2022 DTL 12:14 PM CDT Ketone, U 5 (A) Negative 03/21/2022 DTL mg/dL 12:14 PM CDT Glucose, U Negative Negative 03/21/2022 DTL mg/dL 12:14 PM CDT Specimen Anatomical Collection Method Collection Time Receive d Time (Source) Location / / Volume Laterality Urine 03/21/2022 12:08 03/21/2022 PM CDT 12:08 PM CDT Nura David IV, M.D. LAB URINE ORDERABLES Performing Organization Address City/[facility]/ZIP Code Phon e Number [facility] - [address] Osmolality, Urine (03/21/2022 12:08 PM CDT) P athologist Signature Osmolality, U 429 150 - 1150 03/21/2022 DTL mOsm/kg 12:38 PM CDT Specimen Anatomical Collection Method Collection Time Receive d Time (Source) Location / / Volume Laterality Urine 03/21/2022 12:08 03/21/2022 PM CDT 12:08 PM CDT Nura David IV, M.D. LAB URINE ORDERABLES Performing Organization Address City/[facility]/ZIP Code Phon e Number [facility] - [address] pH, Random, Urine (03/21/2022 12:08 PM CDT) P athologist Signature pH, Random, U 6.7 4.5 - 8.0 03/21/2022 DTL 12:38 PM CDT Specimen Anatomical Collection Method Collection Time Receive d Time (Source) Location / / Volume Laterality Urine 03/21/2022 12:08 03/21/2022 PM CDT 12:08 PM CDT Nura David IV, M.D. LAB URINE ORDERABLES Performing Organization Address City/[facility]/ZIP Code Phon e Number [facility] - [address] (ABNORMAL) Microscopic Manual (03/21/2022 12:08 PM CDT) Analysis Performed At Patho logist Time Signature Microscopy Abnormal 03/21/2022 DTL 1:24 PM CDT RBC >100 (A) <3 /hpf 03/21/2022 DTL 1:24 PM CDT Dysmorphic RBC <25 <25 % 03/21/2022 DTL 1:24 PM CDT WBC 4-10 (A) /hpf 03/21/2022 DTL 1:24 PM CDT Comment: ----REFERENCE VALUE---- 1-3 ??(Males) 1-10 (Females) Renal Epithelial Cells 4-10 (A) /hpf 03/21/2022 1:24 P M CDT DTL Transitional Epithelial Cells 4-10 (A) /hpf 03/21/2022 1:24 PM CDT DTL Bacteria Present (A) 03/21/2022 1:24 PM CDT DTL Specimen Anatomical Collection Method Collection Time Receive d Time (Source) Location / / Volume Laterality Urine 03/21/2022 12:08 03/21/2022 PM CDT 12:08 PM CDT Nura David IV, M.D. LAB URINE ORDERABLES Performing Organization Address City/State/ZIP Code Phon e Number [facility] - [address] [place] [phone] [facility] [place] [address] Laboratories-[facility] [address] [facility] (ABNORMAL) Urinalysis with Microscopic: Urine, Midstream (03/21/2022 12:08 PM CDT) [facility] Method Time Signature Source Urine, Urine, 03/21/2022 DTL Midstream 12:08 PM CDT Color, U Yellow 03/21/2022 DTL 12:08 PM CDT Clarity, U Clear 03/21/2022 DTL 12:08 PM CDT Protein, U 433 (H) <26 mg/dL 03/21/2022 DTL 2:20 PM CDT Protein/Osmol 10.09 (H) <0.42 03/21/2022 DTL ality ratio 2:20 PM CDT Predicted 24 8526 mg/24 h 03/21/2022 DTL Hr Protein 2:20 PM CDT Predicted [id number] mg/24 h 03/21/2022 DTL Range 2:20 PM CDT Specimen Anatomical Collection Method Collection Time Receive d Time (Source) Location / / Volume Laterality Urine (Urine, 03/21/2022 12:08 03/21/2022 Midstream) PM CDT 12:08 PM CDT Nura David IV, M.D. LAB URINE ORDERABLES Performing Organization Address City/State/ZIP Code Phon e Number [facility] - [address] [place], [place] [address] [facility] [place] [address] Laboratories-[facility] [address] documented in this encounter Visit Diagnoses Diagnosis Retention Urinary Malignant Neoplasm Of Bladder (HCC) documented in this encounter Care Teams Community Engagement Representative Relationship Specialty Start Date End Date Elsewhere, Pcp PCP - General Internal Medicine 01/14/22 documented as of this encounter
--- OUTSIDE RECORDS SUMMARY | 2022-07-31 11:34 | XMS_ITS | Encounter Summary ---
:[address] [facility] Address [address] [place] [address] Care Team Providers Name Role Phone Elsewhere, Pcp Primary Care Provider Unavailable Encounter Details Date Type Department Care Team Description 02/26/2022 Clinical Communication Department of Urology Lisbeth Nguyen in [facility] [phone] [address] [facility] (Work) [place] [address] Social History Tobacco Use Types Packs/Day Years [...] you attend nondenominational or Patient refused 2021 jehovah's witness services? Do you belong to any clubs or No 05/17/2022 organizations such as nondenominational groups, unions, fraternal or athletic groups, or [...] or slept in a halfway (including now)? 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 [address] [place] [address] [phone] (Wo rk) 08/20/2022 Appointment Radiology Claude Loaiza MPAS P.AJluis-C. [address] [place] [address] [phone] (Wo rk) 08/22/2022 Virtual Visit Urology Gibran Ruvalcaba M.D. [address] [place] [address] [phone] (Wo rk) documented as of this encounter Visit Diagnoses Not on filedocumented in this encounter Care Teams Rn Field Case Manager Relationship Specialty Start Date End Date Elsewhere, Pcp PCP - General Internal Medicine 01/14/22 documented as of this encounter
--- OUTSIDE RECORDS SUMMARY | 2022-07-31 11:34 | XMS_ITS | Encounter Summary ---
:[address] [facility] Address [address] [place] [address] Care Team Providers Name Role Phone Elsewhere, Pcp Primary Care Provider Unavailable Encounter Details Date Type Department Care Team Description 03/24/2022 Clinical Communication Department of Urology Hector Sethi, in [facility] lonny Chamorro, Ph.D. [address] [place] [phone] Social History Tobacco Use Types Packs/Day Years [...] you attend denominational or Patient refused 2021 zoroastrianism services? 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 - 03/24/2022 8:33 AM CDT Images from the original note were not included. Flakita Bradshaw M.D. 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 They are interested in proceeding with SPT as you had discussed your post hospital follow-up. Please arrange if appropriate. Thanks! Will place order for IR consult with pre-visit labs for consideration of SPT placement. Following visit, if appropriate, we will coordinate timing of SPT placement, urethral catheter removal, and SPT education with our Urology nurses. documented in this encounter Plan of Treatment Upcoming Encounters Date Type Specialty Care Team Description 08/20/2022 Appointment Radiology Claude Loaiza MPAS, P.A.-C. [address] [place] [address] [phone] (Octavio christensen) 08/20/2022 Appointment Radiology Claude Loaiza MPAS, P.A.-C. [address] [place] [address] [phone] (Octavio rk) 08/22/2022 Virtual Visit Urology Gibran Ruvalcaba M.D. [address] [place] [address] [phone] (Octavio christensen) documented as of this encounter Visit Diagnoses Not on filedocumented in this encounter Care Teams Manager Flight Operations Relationship Specialty Start Date End Date Elsewhere, Pcp PCP - General Internal Medicine 01/14/22 documented as of this encounter
--- OUTSIDE RECORDS SUMMARY | 2022-07-31 11:34 | XMS_ITS | Encounter Summary ---
:1935 Author Organization [facility] Address [address] [place] [address] Care Team Providers Name Role Phone Elsewhere, Pcp Primary Care Provider Unavailable Reason for Referral Outpatient (Routine) - Closed Specialty Diagnoses / Procedures Referred By Contact Refer red To Contact Radiology Diagnoses Malignant Neoplasm Of Bladder (HCC) Nura David IV [facility] Procedures IR Nephrostomy Tube Exchange Left M.D. [address] [place] [address] Referral ID Status Reason Start Date Expiration Date Visits Requ ested Visits Authorized [id number] Closed 02/22/2022 02/22/2023 1 1 Encounter Details Date Type Department Care Team Description 02/22/2022 Orders Only Department of Urology Nura Davdi Malignant Neoplasm Of in [facility] Becky COBIAN M.D. Bladder (HCC) (Primary [place] 200 [facility] Dx) [address] [place] [phone] Social History Tobacco Use Types Packs/Day Years [...] or relatives? How often do you attend adventism or Patient refused 2021 jain services? Do you belong to any clubs or No 05/17/2022 organizations such as adventism groups, [employer], fraRaftOut or athletic groups, or school groups? 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 [address] [place] [address] [phone] (Octavio christensen) 08/20/2022 Appointment Radiology Claude Loaiza MPAS, P.A.-C. [address] [place] [address] [phone] (Octavio christensen) 08/22/2022 Virtual Visit Urology Gibran Ruvalcaba M.D. [address] [place] [address] [phone] (Octavio christensen) documented as of this encounter Results IR Nephrostomy Tube Exchange Left (05/20/2022 12:46 PM CDT) Anatomical Region Laterality Modality Genito Urinary, Vascular Interventional RST LOS, Left X-Ray Angiography Vascular Interventional ARZ LOS, Vascular Interventional FLA LOS Specimen (Source) Anatomical Collection Method Collection Time Re ceived Time Location / / Volume Laterality 05/20/2022 4:28 PM CDT Impressions 05/20/2022 5:48 PM CDT Routine exchange 10 Tongan left percutaneous nephrostomy tube. Drain to gravity [...] lidoca ine used for local anesthesia. Fluoroscopic commercial estimator image demonstrates unchanged position of the l eft 10 Tongan percutaneous nephrostomy tube. Injection of contrast demonstrated a locking loop wit hin the markedly dilated left renal pelvis with high-grade narrowing at the left UPJ. Drain removed in its entirety over a guidewire and a new 10 Tongan locking loop catheter advanced with lock ing [...] lidoca ine used for local anesthesia. Fluoroscopic commercial estimator image demonstrates unchanged position of the l eft 10 Tongan percutaneous nephrostomy tube. Injection of contrast demonstrated a locking loop wit hin the markedly dilated left renal pelvis with high-grade narrowing at the left UPJ. Drain removed in its entirety over a guidewire and a new 10 Tongan locking loop catheter advanced with lock ing [...] blood loss: minimal.. IMPRESSION: Routine exchange 10 Tongan left percutan eous nephrostomy tube. Drain to gravity bag drainage. Routine exchange in 10-12 week s. NR Nura David IV, M.D. G IR PROCEDURES documented in this encounter Visit Diagnoses Diagnosis Malignant Neoplasm Of Bladder (HCC) - Pr imary Malignant Neoplasm Of Bladder (HCC) documented in this encounter Care Teams Backend Python Developer Relationship Specialty Start Date End Date Elsewhere, Pcp PCP - General Internal Medicine 01/14/22 documented as of this encounter
--- OUTSIDE RECORDS SUMMARY | 2022-07-31 11:34 | XMS_ITS | Encounter Summary ---
:1935 Author Organization [facility] Address [address] [place] [address] Care Team Providers Name Role Phone Elsewhere, Pcp Primary Care Provider Unavailable Reason for Referral Outpatient (Routine) - Closed Specialty Diagnoses / Procedures Referred By Contact Refer red To Contact Radiation Oncology Diagnoses Malignant Neoplasm Of Bladder (HCC) Cori Reece M.D. [address] [address] Referral ID Status Reason Start Date Expiration Date Visits Requ ested Visits Authorized [id number] Closed 02/26/2022 02/26/2023 1 1 Reason for Visit Outpatient (Routine) - Closed Specialty Diagnoses / Procedures Referred By Contact Refer red To Contact Radiation Oncology Diagnoses Malignant Neoplasm Of Bladder (HCC) Cori Reece M.D. [address] [address] Referral ID Status Reason Start Date Expiration Date Visits Requ ested Visits Authorized [id number] Closed 02/26/2022 02/26/2023 1 1 Encounter Details Date Type Department Care Team Description 03/06/2022 Hospital Encounter Department of Manny Anderson Neoplasm Radiation Oncology Ashtyn Dubois Of Bladder (HCC) in [address] (Primary Dx) [place], [place] [address] [facility] [address] [place], [place] [phone] (Work) [phone] Social History Tobacco Use Types Packs/Day Years [...] or relatives? How often do you attend congregational or Patient refused 2021 sikhism services? Do you belong to any clubs or No 05/17/2022 organizations such as congregational groups, unions, fraFast FiBR or athletic groups, or school groups? 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 documented as of this encounter Consult Notes Harrison Lennon M.D., M.S. - 03/06/2022 9:00 AM CDT RADIATION ONCOLOGY CONSULTATION Supervising Campaign Coordinator: Dr. Manny Anderson Referring Provider: Cori Reece M.D. Primary Care Provider: Dr. Yamila English Home address: [address] [place] [phone] SUBJECTIVE History of present illness Mr. Henok Chery is a 86 y.o. 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 The patient's oncologic history is as follows: Oncology History Malignant Neoplasm Of Bladder (HCC) 07/13/2021 Other PSA 1.14 ng/mL 01/24/2022 Other The patient presented to the [facility] ED with a chief complaint [...] retrogrades. Patient will need to see his childcare director for surgical clearance, he is a poor candidate for surgery. 02/08/2022 Other Urology consultation at [facility] with Dr. David Day who recommended proceeding [...] urethral catheter and nephrostomy tube. Referral to [facility] provider. 03/12/2022 - Radiation Therapy Radiation Therapy Treatment Details (Noted on 03/05/2022) Site: Bladder Technique: No technique specified Goal: Curative Planned Treatment Start Date: 03/12/2022 In the clinic today, Mr. Henok Chery defers most questions and responses to his and [id number]. He reports feeling fine but when prompted describes irritation with the indwelling catheter. The catheter has been draining red-tinged urine since his biopsy. He does not have any fevers or c hills but notices yellowish discharge from around the outside of the tubing. He does have some discomfort at the tip of his penis. He is fairly sedentary at home. Over the last few weeks he has lost about 30 lbs, much of which he suspects from edema of the lower extremities. Patient reported symptom screen Fatigue (scale: 0 = no fatigue; 10 = worst fatigue you can imagine): 0 Pain (scale: 0 = no pain; 10 = worst pain you can imagine): 2 Overall quality of life (scale: 0 = as bad as can be; 10 = as good as can be): 6 Past medical history Pertinent past medical history, past surgical history, medications, allergies, social history, and family history were reviewed. Pertinent past medical history includes hypertension, diabetes, CAD, HFrEF (25% 01/2022), CKD, polycythemia vera, prior cutaneous squamous cell carcinoma. The patient does not have a history of lupus, scleroderma or ulcerative colitis. The patient has no implanted medical devices. Social history is significant for never smoker. Prior history of radiation None. Review of systems Review of systems as noted in HPI. OBJECTIVE Vitals Weight: 77.3 kg, Temperature: 97.0 degrees Farenheit, Pulse: 75 beats per minute and Blood pressure:105/60 mmHg Physical exam ECO Constitutional: Pleasant, in no acute distress, normal weight, ambulates with a walker. Respiratory: CTAB, no r/r/w, normal work of breathing on room air Cardiovascular: Systolic murmur, regular rate and rhythm Musculoskeletal: No ESTEFANY b/l ASSESSMENT AND PLAN #1 Stage I (cT1, cN0, cM0) high-grade papillary urothelial carcinoma, status post biopsy on February 18, 2022 #2 Hematuria secondary to #1 #3 Urinary obstruction secondary to #1 requiring Villarreal catheter placement and nephrostomy tube placement #4 Nonischemic cardiomyopathy with an ejection fraction of 20-25% Mr. Henok Chery is a 86 y.o. 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 I have reviewed the pertinent history, laboratory, and imaging studies. The patient has early stage disease but due to medical comorbidities is not even a candidate for a TURBT. He and his family desire for palliative treatment, seeking to minimize toxicities, including time spent with treatment. In this setting, we recommended treating the bladder to 3600 cGy in 6 fractions delivered once or twice per week. We would plan on treating the whole bladder and the prostate given the proximity of the tumor to the prostate and uncertainty within the area. We discussed the logistics of radiation simulation, planning, and daily treatment. We also reviewed the acute and late toxicities associated with treatment including urinary frequency and urgency, dysuria, possible hematuria, bowel frequency and urgency, diarrhea, gaseous bloating and discomfort,??skin irritation, fatigue, urinary incontinence, stool incontinence, rectal bleeding, rectal narrowing resulting in smaller caliber stools, hip arthritis, dry ejaculate, and a very small risk of secondary malignancy. The patient and his family displayed understanding of the risks and benefits. A concern from the patient was that radiation may preclude him from undergoing a Rezum procedure to potentially alleviate his urinary obstruction. We reviewed that we suspect his urinary obstruction isfrom the bladder tumor and prostatic hypertrophy. We further described that he may not have significant improvement with one or both of the procedures, and he may still have a catheter present for the rest of his life. We identified the patient's active bleeding and tumor obstruction as medically taking preference, but the patient's [id number] wished to hear from urology as to whether radiation is a contraindication to Rezum prior to making any definite decisions regarding radiotherapy. I have reached out to Dr. Rosen from urology as well as his colleagues regarding radiotherapy as acontraindication for Rezum. I will contact the patient regarding the response, and we will plan for CT simulation in the next few days with initiation of treatment a few days after that. We discussed pl anning for treatments on Tuesdays and Fridays, dropping to once weekly if the patient is unable to tolerate the biweekly regimen. At this schedule, the patient would finish in early March. He is scheduled to see Dr. Rosen on April 15. This would herminia several weeks prior to procedural inflammation, allowing the worst of acute inflammation from radiation to subside. All questions were answered to the patient's satisfaction. Our departmental contact information was provided to the patient who was encouraged to contact the Department of Radiation Oncology with further questions or concerns. Dr. Manny Anderson is the hematology oncology consultant; please see attestation for further details. Harrison Lennon M.D., M.S. Associated attestation - Manny Anderson M.D. - 03/06/2022 11:36 PM CDT I saw and evaluated the patient and participated in the andrade portions of the service. I reviewed the documentation of Harrison Lennon M.D. and agree with his findings and plan. In brief, Mr. Henok Chery is an 86 y.o. 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 We areasked by Dr. Reece to evaluate the patient for radiotherapy. His oncologic history is well detailedin Dr. Lennon' note. He has an indwelling Villarreal catheter and nephrostomy tube. The catheter is quite bothersome to him. He is highly motivated to have it removed. He continues to have hematuria. His ECOGperformance status is 2 -3. OBJECTIVE PHYSICAL EXAM General: Patient is awake, alert, and oriented to person, place, and time. No apparent distress. He is here today with his Miesha and his [id number] Patricia. He has a Villarreal catheter in place that is draining pink- tinged urine. DIAGNOSTICS I reviewed the patient's pathology reports and imaging. ASSESSMENT / PLAN #1 Stage I (cT1, cN0, cM0) high-grade papillary urothelial carcinoma, status post biopsy on February 18, 2022 #2 Hematuria secondary to #1 #3 Urinary obstruction secondary to #1 requiring Villarreal catheter placement and nephrostomy tube placement #4 Nonischemic cardiomyopathy with an ejection fraction of 20-25% I had a detailed discussion with the patient and his family members regarding the risks, benefits, and alternatives of radiotherapy in this setting. His has met with Urology and is not considered a satisfactory candidate even for a TURBT because of his high cardiovascular risk. Given this and his renal insufficiency, he also likely not a candidate for concurrent chemotherapy. Hence, I recommend palliative radiotherapy alone to the bladder tumor to a dose of 36 Gy in 6 fractions and likely 30 Gy in 5fractions to the whole bladder and prostate administered either twice weekly or once weekly. I recommend utilization of intensity modulated radiotherapy (IMRT), so as to spare the adjacent small bowel,large bowel, rectum, and hips from high radiation dose. I discussed the logistics as well as the acute and chronic side effects of treatment in detail. For a complete listing of these, please see Dr. Lennon' note. The patient and his family members do not want to proceed with radiotherapy if it will make him ineligible for the Rezum procedure for which he is scheduled to meet with Dr. Rosen on April 15, 2022. We were unable to reach our colleagues in Urology to discuss this further, so the patient will return in the near future for a CT simulation after we have clarified this. My thanks to Drs. Reece and Jerry for the opportunity to participate in this patient's care. I spent a total of 30 minutes with the patient, 30 minutes of which were spent in counseling and coordinating care. Signed by: Manny Anderson M.D. 03/06/2022 11:36 PM CDT [facility] [address] [place] [address] documented in this encounter Miscellaneous Notes Addendum Note - Vicki eHctor C.NTarun - 03/06/2022 9:00 AM CDT Encounter addended by: Vicki Hector C.NTarun on: 03/07/2022 7:09 AM Actions taken: Letter saved documented in this encounter Plan of Treatment Upcoming Encounters Date Type Specialty Care Team Description 08/20/2022 Appointment Radiology Claude Loaiza MPAS, P.A.-C. [address] [place] [address] [phone] (Octavio christensen) 08/20/2022 Appointment Radiology Claude Loaiza MPAS, P.A.-C. [address] [place] [address] [phone] (Octavio christensen) 08/22/2022 Virtual Visit Urology Gibran Ruvalcaba M.D. [address] [place] [address] [phone] (Octavio christensen) Scheduled Referrals Name Type Priority Associated Order Schedule Diagnoses Radiation Oncology Outpatient Referral Routine Malignant Neopl asm Once for 1 - Palliative / Of Bladder (HCC) Occurrenc es metastatic consult starting 03/06/2022 (clinic) until 2 documented as of this encounter Visit Diagnoses Diagnosis Malignant Neoplasm Of Bladder (HCC) - Pr imary documented in this encounter Care Teams Quill Picking Machine Operator Relationship Specialty Start Date End Date Elsewhere, Pcp PCP - General Internal Medicine 01/14/22 documented as of this encounter
--- OUTSIDE RECORDS SUMMARY | 2022-07-31 11:35 | XMS_ITS | Encounter Summary ---
:1935 Author Organization [facility] Address [address] [place] [phone] Care Team Providers Name Role Phone Elsewhere, Pcp Primary Care Provider Unavailable Encounter Details Date Type Department Care Team Description 02/13/2022 Clinical Communication Department of Urology David Aguero in [place], Juan., B.Ch., [place] B.A.O. [address] [facility] [address] [place] [phone] Social History Tobacco Use Types Packs/Day Years [...] or relatives? How often do you attend faith or Patient refused 2021 restorationism services? 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 - 02/14/2022 8:45 AM CDT Addended by: DAVID AGUERO on: 02/14/2022 08:45 AM Modules accepted: Orders Telephone Encounter - David Aguero M.B., Delia, B.A.O. - 02/14/2022 8:44 AM CDT Spoke with over the phone informed her that nephrostomy tube will be in place until his bladdercancer is managed and it has to be exchanged every 3 months. She expressed understanding and had no questions. We are going to schedule the COVID test in [place] documented in this encounter Plan of Treatment Upcoming Encounters Date Type Specialty Care Team Description 08/20/2022 Appointment Radiology Claude Loaiza MPAS, P.A.-C. [address] [place], [place] [phone] (Octavio christensen) 08/20/2022 Appointment Radiology Claude Loaiza MPAS, P.A.-C. [address] [place], [place] [phone] (Octavio christensen) 08/22/2022 Virtual Visit Urology Gibran Ruvalcaba M.D. [address] [place], [place] [phone] (Wo rk) documented as of this encounter Results SARS Coronavirus-2 RNA, V Asymptomatic (02/15/2022 9:22 AM CDT) [facility] Method Time Signature SARS-CoV-2 Swab, 02/15/2022 MKTO Specimen Nasopharynx 10:28 PM Source CDT SARS CoV-2 Undetected Undetected 02/15/2022 MKTO RNA, TMA 10:28 PM CDT Comment: SARS-CoV-2 RNA absent. This result does not rule out COVID-19 in the patient, as the sensitivity of the test depends o n the timing of the specimen collection and the quality of the specim en. Result should be correlated with patient's history and clinical presentat ion. ----ADDITIONAL INFORMATION---- This molecular amplification test was pe rformed using the Aptima SARS-CoV-2 assay ([employer] on the Modebos tem under emergency use authorization (EUA) by the U.S. Food and Drug Administ ration. Fact sheets for this EUA assay can be fo und at the following links: For Healthcare Providers: https://www.fd a.gov/media/166301/download For Patients: https://www.fda.gov/media/ 376868/download Specimen Anatomical Collection Method Collection Time Receive d Time (Source) Location / / Volume Laterality Varies 02/15/2022 9:22 AM 3:08 (Nasopharynx) CDT PM CDT David Sevilla, B.Ch., B.A.O. LAB MICROBIOLOGY - GENERAL ORDERABLES Performing Organization Address City/State/ZIP Code Phon e Number [facility]- [address] [place] [id number] [facility] [place] [address] documented in this encounter Visit Diagnoses Diagnosis Hydronephrosis - Primary Mass Bladder documented in this encounter Care Teams Cytology Technologist Relationship Specialty Start Date End Date Elsewhere, Pcp PCP - General Internal Medicine 01/14/22 documented as of this encounter
--- OUTSIDE RECORDS SUMMARY | 2022-07-31 11:35 | XMS_ITS | Encounter Summary ---
:1935 Author Organization [facility] Address [address] [place] [address] Care Team Providers Name Role Phone Elsewhere, Pcp Primary Care Provider Unavailable Reason for Visit Reason Comments Triage Encounter Details Date Type Department Care Team Description 02/15/2022 Clinical Communication Department of Diamond Cleaner, [facility] Cardiovascular Medicine Ashtyn Kumar in [facility] [address] [place] [phone] Social History Tobacco Use Types Packs/Day [...] you attend denominational or Patient refused 2021 episcopal services? 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 Internal/external: URO surg, [place], [id number] ?? Goal or summary: Schedule in CV ?? Requested date: February ?? Additional comments: Please Review documented in this encounter Plan of Treatment Upcoming Encounters Date Type Specialty Care Team Description 08/20/2022 Appointment Radiology Claude Laoiza MPAS, P.A.-C. [address] [place] [phone] (Wo rk) 08/20/2022 Appointment Radiology Claude Loaiza MPAS, P.A.-C. [address] [place] [phone] (Wo rk) 08/22/2022 Virtual Visit Urology Gibran Ruvalcaba M.D. [address] [place] [phone] (Wo rk) documented as of this encounter Visit Diagnoses Not on filedocumented in this encounter Additional Health Concerns Infection Onset Date Last Indicated Resolved Time COVID19 Pending 02/15/2022 02/15/2022 02/15/2022 10:28 PM CDT COVID19 Pending 02/20/2022 02/20/2022 02/20/2022 8:04 PM CDT documented as of this encounter Care Teams Merchandise Presentation Manager Relationship Specialty Start Date End Date Elsewhere, Pcp PCP - General Internal Medicine 01/14/22 documented as of this encounter
--- OUTSIDE RECORDS SUMMARY | 2022-07-31 11:35 | XMS_ITS | Encounter Summary ---
:1935 Author Organization [facility] Address [address] [place] [address] Care Team Providers Name Role Phone Elsewhere, Pcp Primary Care Provider Unavailable Reason for Referral Outpatient (Routine) - Closed Specialty Diagnoses / Procedures Referred By Contact Refer red To Contact Radiology Diagnoses Hydronephrosis David Day M.B., [facility] Procedures IR Nephrostomy Tube Placement Left B.ChJluis, B.A.O. [address] [place] [address] Referral ID Status Reason Start Date Expiration Date Visits Requ ested Visits Authorized [id number] Closed 02/12/2022 02/12/2023 1 1 Reason for Visit Outpatient (Routine) - Closed Specialty Diagnoses / Procedures Referred By Contact Refer red To Contact Radiology Diagnoses Hydronephrosis David Day M.B., [facility] Procedures IR Nephrostomy Tube Placement Left B.ChJluis, B.A.O. [address] [place], [place] [phone] Referral ID Status Reason Start Date Expiration Date Visits Requ ested Visits Authorized [id number] Closed 02/12/2022 02/12/2023 1 1 Encounter Details Date Type Department Care Team Description 02/18/2022 Hospital Encounter Department of [place] Day M.B., B.Tj., B.A.O. [address] [place] [phone] Hydronephrosis Radiology in Dannielle Gonsalves M.D. [address] [place] [phone] [place], [place] Saeid Stanton M.D. [address] [place] [phone] [address] [place] [address] Social History Tobacco Use Types [...] you attend mormon or Patient refused 2021 christian services? 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 aspirin [address] tablet Take 1 tablet by 0 2015 mouth daily. buPROPion XL (WELLBUTRIN Take 300 mg by 0 XL) 300 mg 24 hr tablet mouth daily. cholecalciferol (VITAMIN Take 50 mcg by 0 D3) 50 mcg (2,000 Unit) mouth daily. tablet furosemide (LASIX) 20 mg Take 40 mg by mouth 0 tablet 2 (two) times a day. glipiZIDE (GLUCOTROL XL) Take 10 mg by mouth 0 10 mg 24 hr tablet daily with breakfast. hydroxyurea (HYDREA) 500 Take 3-4 capsules by mouth daily. 1 500 mg on Fri- 0 10/27/2017 mg capsule 2000 mg on Fri-Fri lisinopriL Take 2.5 mg by 0 (PRINIVIL,ZESTRIL) 2.5 mg mouth daily. tablet methocarbamol (ROBAXIN) TAKE 1 TO 2 TABLETS 3 750 mg tablet BY MOUTH EVERY 6 TO 8 HOURS NEEDED FOR MUSCLE SPASM nitroglycerin (NITROSTAT) Place 0.4 mg under 0 0.4 mg SL tablet the tongue every 5 (five) minutes as needed for chest pain. omeprazole (PriLOSEC) 20 Take 1 capsule by 0 01/19 mg capsule mouth daily. trospium (SANCTURA) 20 mg Take 1 tablet (20 30 tablet 0 03/2022 tablet mg total) by mouth 2 (two) times a day as needed (bladder spasms). sulfamethoxazole-trimethop Take 1 tablet by 6 tablet 0 07/202203/01/2022 rim (BACTRIM DS) 800-160 mouth 2 (two) times mg per tablet a day for 3 days. sulfamethoxazole-trimethop Take 1 tablet by 14 tablet 0 07/202202/22/2022 rim (BACTRIM DS) 800-160 mouth 2 (two) times mg per tablet a day for 3 days. trospium (SANCTURA) 20 mg Take 1 tablet (20 30 tablet 3 03/202202/22/2022 tablet mg total) by mouth 2 (two) times a day before breakfast and dinner. documented as of this encounter Procedure Notes Saeid Stanton M.D. - 02/18/2022 10:00 AM CDT PATIENT DISPOSITION Discharge to home. POST-PROCEDURE DIAGNOSIS Left hydronephrosis PROCEDURE PERFORMED AND DESCRIPTION 10 F Left nephrostomy tube placement PROCEDURE DETAILS See Radiology Report SPECIMENS REMOVED Urine sample sent for laboratory analysis FINDINGS As expected PRIMARY PROCEDURALIST Dr. Dannielle Gonsalves ([id number]) ASSISTANTS Dr. Stanton ([id number]) COMPLICATIONS None. DRAINS Left nephrostomy tube 10F IMPLANTS Reference implant document. ANESTHESIA Moderate Sedation. FLUIDS See MAR ESTIMATED BLOOD LOSS <5ml CURRENT MEDICATIONS No Medication Changes FOLLOW-UP LETTER None. MAY RETURN TO WORK Not applicable PATIENT INSTRUCTIONS For your next scheduled appointment. Nephrostomy tube exchange in 12 weeks. documented in this encounter Plan of Treatment Upcoming Encounters Date Type Specialty Care Team Description 08/20/2022 Appointment Radiology Claude Loaiza MPAS PJluisA.-CJluis [address] [place] [phone] (Octavio christensen) 08/20/2022 Appointment Radiology Claude Loaiza MPAS, P.A.-C. [address] [place] [phone] (Octavio christensen) 08/22/2022 Virtual Visit Urology Gibran Ruvalcaba M.D. [address] [place] [phone] (Octavio christensen) documented as of this encounter Procedures Procedure Name Priority Date/Time Associated Diagnosis Comme nts IR NEPHROSTOMY RAD - Routine 02/18/2022 Hydronephrosis Results fo r TUBE PLACEMENT (most inpatients 10:44 AM CDT this proc edure LEFT and all are in the outpatients) results section. BACTERIAL CULTURE, Timed 02/18/2022 Results f or AEROBIC + SUSC 10:42 AM CDT this procedur e are in the results section. GRAM STAIN Timed 02/18/2022 Results for 10:42 AM CDT this procedure are in the results section. FUNGAL CULTURE, Timed 02/18/2022 Results for ROUTINE 10:42 AM CDT this procedure are in the results section. BACTERIAL CULTURE, Timed 02/18/2022 Results f or ANAEROBIC + SUSC 10:42 AM CDT this proced ure are in the results section. ADULT OXYGEN Routine 02/18/2022 9:52 THERAPY AM CDT documented in this encounter Results IR Nephrostomy Tube Placement Left (02/18/2022 10:44 AM CDT) Anatomical Region Laterality Modality Genito Urinary, Vascular Interventional RST LOS, Left X-Ray Angiography Vascular Interventional ARZ LOS, Vascular Interventional FLA LOS Specimen (Source) Anatomical Collection Method Collection Time Re ceived Time Location / / Volume Laterality 02/18/2022 11:04 AM CDT Impressions 02/18/2022 12:54 PM CDT 1. ??Placement of 10F left nephrostomy tube, connected to bag drainage. 2. ??A small urine sample was sent for t he requested microbiologic analysis. 3. ??Exchange in 12 weeks. ?? EP Narrative 02/18/2022 12:54 PM CDT EXAM: IR NEPHROSTOMY TUBE PLACEMENT LEFT CLINICAL HISTORY: 86-year-old male with history of recently discovered left bladder wall mass and marked left hydronephrosis. TECHNIQUE: Patient placed supine on the fluoroscopy table and the left flank prepped and draped in the usual sterile fashion. Under ultraso und guidance, a 22-gauge needle was advanced into an upper pole calyx. Return of clear urine upon c alyceal entry. Needle entry confirmed with a gentle contrast injection. Contrast flowed down the left ureter. Image stored. An 0.018 wire was then advanced into the renal collecting system. The tract w as then converted with an AccuStick set and the 0.[address] as a safety wire. An 0.035 soft angled Glidewire was advanced down the left ureter. A 10F x 25 cm MCL locking loop catheter wa s then advanced into the left kidney with loop formed in the center of the renal pelvis. Final contra st injection demonstrated satisfactory position and function of the nephrostomy tube. A small sample of urine was collected and sent for requested microbiologic testing. The nephrostomy tube was gently flushed with sterile saline. The tube was then secured to the skin with a single 2-0 Prolene ancho r suture and connected to gravity bag drainage. No immediate complications. PREPROCEDURE: Patient seen, evaluated, h istory reviewed, [...] The total intra-procedural sedation time was : 14 minutes. Procedure Note Dannielle Gonsalves M.D. - 02/18/2022Form atting of this note might be different from the original. EXAM: IR NEPHROSTOMY TUBE PLACEMENT LEFT CLINICAL HISTORY: 86-year-old male with history of recently discovered left bladder wall mass and marked left hydronephrosis. TECHNIQUE: Patient placed supine on the fluoroscopy table and the left flank prepped and draped in the usual sterile fashion. Under ultraso und guidance, a 22-gauge needle was advanced into an upper pole calyx. Return of clear urine upon c alyceal entry. Needle entry confirmed with a gentle contrast injection. Contrast flowed down the left ureter. Image stored. An 0.018 wire was then advanced into the renal collecting system. The tract w as then converted with an AccuStick set and the 0.[address] as a safety wire. An 0.035 soft angled Glidewire was advanced down the left ureter. A 10F x 25 cm MCL locking loop catheter wa s then advanced into the left kidney with loop formed in the center of the renal pelvis. Final contra st injection demonstrated satisfactory position and function of the nephrostomy tube. A small sample of urine was collected and sent for requested microbiologic testing. The nephrostomy tube was gently flushed with sterile saline. The tube was then secured to the skin with a single 2-0 Prolene ancho r suture and connected to gravity bag drainage. No immediate complications. PREPROCEDURE: Patient seen, evaluated, h istory reviewed, [...] The total intra-procedural sedation time was : 14 minutes. IMPRESSION: 1. Placement of 10F left nephrostomy tub e, connected to bag drainage. 2. A small urine sample was sent for the requested microbiologic analysis. 3. Exchange in 12 weeks. EP David Sevilla, B.Tj., B.A.O. IMG IR PROCEDURES Fungal Culture, Routine (02/18/2022 10:42 AM CDT) [facility] Method Time Signature Fungal No growth 03/14/2022 DTL Culture, after 24 1:01 PM CDT Routine days of incubation. Specimen Anatomical Collection Method Collection Time Receive d Time (Source) Location / / Volume Laterality Fluid (Kidney, 02/18/2022 10:42 2 Left) AM CDT 12:34 PM CDT Comment: Specimen Source Site: Fluid Crow KennedyCh., B.A.O. LAB MICROBIOLOGY - GENERAL ORDERABLES Performing Organization Address City/[facility]/ZIP Code Phon e Number [facility] - [address] [place], [place] [address] [facility] [place] [address] Laboratories-[address] Bacterial Culture, Anaerobic + Susc (02/18/2022 10:42 AM CDT) [facility] Method Time Signature Bacterial No growth 03/04/2022 DTL Culture, after 14 11:37 AM CDT Anaerobic + days of Susc incubation. Specimen Anatomical Collection Method Collection Time Receive d Time (Source) Location / / Volume Laterality Fluid (Kidney, 02/18/2022 10:42 2 Left) AM CDT 12:34 PM CDT Comment: Specimen Source Site: Fluid David Sevilla B.Ch., B.A.O. LAB MICROBIOLOGY - GENERAL ORDERABLES Performing Organization Address City/[facility]/ZIP Code Phon e Number [facility] - [address] [place], [place] [address] [facility] [place] [address] Laboratories-[address] Gram Stain (02/18/2022 10:42 AM CDT) [facility] Method Time Signature Gram Stain No organisms 02/18/2022 DTL seen. 2:40 PM CDT Specimen Anatomical Collection Method Collection Time Receive d Time (Source) Location / / Volume Laterality Fluid (Kidney, 02/18/2022 10:42 2 Left) AM CDT 12:34 PM CDT Comment: Specimen Source Site: Fluid Crow KennedyCh., B.A.O. LAB MICROBIOLOGY - GENERAL ORDERABLES Performing Organization Address City/[facility]/ZIP Code Phon e Number [facility] - [address] [place] [address] [phone] [address] Bacterial Culture, Aerobic + Susc (02/18/2022 10:42 AM CDT) [facility] gist Method Time Signature Bacterial No growth 02/23/2022 DT Culture, after 5 8:30 AM CDT Aerobic + Susc days of incubation. Specimen Anatomical Collection Method Collection Time Receive d Time (Source) Location / / Volume Laterality Fluid (Kidney, 02/18/2022 10:42 2 Left) AM CDT 12:34 PM CDT Comment: Specimen Source Site: Fluid David Sevilla, B.Tj., B.A.O. LAB MICROBIOLOGY - GENERAL ORDERABLES Performing Organization Address City/State/ZIP Code Phon e Number [address] [address] documented in this encounter Visit Diagnoses Diagnosis Hydronephrosis documented in this encounter Administered Medications Inactive Administered Medications - up to 3 most recent administrations Medication Order MAR Action Action Date Dose Rate Site acetaminophen tablet 1,000 mg Given 02/18/2022 12:18 PM CDT 1,00 0 mg (TYLENOL) 1,000 mg, oral, Every 6 hours PRN, mild pain or score 1-3 of 10, moderate pain or score 4-6 of 10, Starting on Fri02/18/22 at 0854, (not to exceed 4 grams in 24 hours) fentaNYL injection 25 mcg (SUBLIMAZE) Given 02/18/2022 10:22 AM CDT 25 mcg 25 mcg, intravenous, Every 2 min PRN, sedation, or pain before and during sedation procedure, Starting on Fri02/18/22 at 0952, Intraprocedure (RAD), Administer over 1 minute immediately prior to the procedure. May repeat every 2 minutes to a maximum of 200 mcg, until pain score of 3 or less from baseline. Do not give if respiratory rate is less than 8 breaths/minute iohexoL 300 mg iodine/mL solution (OMNIP AQUE) Given 02/18/2022 10:42 AM CDT 40 mL Code/trauma/sedation medication, Starting on Fri02/18/22 at 1042 lactated ringers New Bag 02/18/2022 10:14 AM CDT 20 mL/hr 20 mL/hr 20 mL/hr, intravenous, Once as needed, to keep vein open, Starting on Fri02/18/22 at 0751, For 1 dose, Intraprocedure (RAD) lidocaine-sodium bicarbonate (buffered) Given 02/18/2022 10:43 A M CDT 5 mL 0.9%-8.4% injection infiltration, Code/trauma/sedation medication, Starting on Fri02/18/22 at 1043 midazolam (PF) injection 0.5 mg (VERSED) Given 02/18/2022 10:23 AM CDT 0.5 mg 0.5 mg, intravenous, Once as needed, sedation, Starting on Fri02/18/22 at 0751, For 1 dose, Intraprocedure (RAD) documented in this encounter Care Teams Marketing Writer Relationship Specialty Start Date End Date Elsewhere, Pcp PCP - General Internal Medicine 01/14/22 documented as of this encounter
--- OUTSIDE RECORDS SUMMARY | 2022-07-31 11:35 | XMS_ITS | Encounter Summary ---
:1935 Author Organization [facility] Address [address] [place] [address] Care Team Providers Name Role Phone Elsewhere, Pcp Primary Care Provider Unavailable Reason for Referral MRI/CAT/PET Scan (Routine) - Closed Specialty Diagnoses / Procedures Referred By Contact Refer red To Contact Radiology Diagnoses Malignant Neoplasm Of Bladder (HCC) David Day M.B., [facility] Procedures CT Urogram without and with IV Contrast B.Ch., B.A.O. 200 [place], [place] [phone] Referral ID Status Reason Start Date Expiration Date Visits Requ ested Visits Authorized [id number] Closed 02/08/2022 02/08/2023 1 1 Reason for Visit MRI/CAT/PET Scan (Routine) - Closed Specialty Diagnoses / Procedures Referred By Contact Refer red To Contact Radiology Diagnoses Malignant Neoplasm Of Bladder (HCC) David Day M.B., [facility] Procedures CT Urogram without and with IV Contrast B.Ch., B.A.O. [address] [place] [phone] Referral ID Status Reason Start Date Expiration Date Visits Requ ested Visits Authorized [id number] Closed 02/08/2022 02/08/2023 1 1 Encounter Details Date Type Department Care Team Description 02/11/2022 Hospital Encounter Department of Barb, David Malign ant Neoplasm Radiology, Juan Bridges., B.Ch., Of [facility] in B[place], [place] 200 [facility] [address] [place] [phone] Social History Tobacco Use Types Packs/Day Years [...] or relatives? How often do you attend cheondoism or Patient refused 2021 quaker services? 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 hydroxyurea (HYDREA) 500 Take 3-4 capsules by mouth daily. 1 500 mg on Mon-Th 0 10/27/2017 mg capsule 2000 mg on Fri-Fri methocarbamol (ROBAXIN) TAKE 1 TO 2 TABLETS 3 750 mg tablet BY MOUTH EVERY 6 TO 8 HOURS NEEDED FOR MUSCLE SPASM omeprazole (PriLOSEC) 20 Take 1 capsule by 0 01/19 mg capsule mouth daily. ammonium lactate Apply sparingly to 140 g 0 02/16/2019 02/18/2022 (AMLACTIN) 12 % cream thickened area on right 3rd finger 1-2 times daily as needed. glipiZIDE (GLUCOTROL XL) daily. 0 05/22/2018 02/18/2022 5 mg 24 hr tablet lisinopril-hydroCHLOROthi daily. 0 03/27/2018 02/18/2022 azide (PRINZIDE,ZESTORETIC) 10-12.5 mg per tablet documented as of this encounter Plan of Treatment Upcoming Encounters Date Type Specialty Care Team Description 08/20/2022 Appointment Radiology Claude Loaiza, GARCIA, P.A.-C. [address] [place] [phone] (Wo rk) 08/20/2022 Appointment Radiology Claude Loaiza MPAS, P.A.-C. [address] [place] [address] [phone] (Wo rk) 08/22/2022 Virtual Visit Urology Gibran Ruvalcaba M.D. [address] [place] [address] [phone] (Wo rk) documented as of this encounter Procedures Procedure Name Priority Date/Time Associated Comments Diagnosis CT UROGRAM RAD - Routine 02/11/2022 4:03 Malignant Results for this WITHOUT AND WITH (most inpatients PM CDT Neoplasm Of procedu re are in IV CONTRAST and all Bladder (HCC) the results outpatients) section. documented in this encounter Results CT Urogram without and with IV Contrast (02/11/2022 4:03 PM CDT) Anatomical Region Laterality Modality Abdomen, Pelvis, Abdominal RST LOS, N/A Comp uted Tomography, Computed Abdominal ARZ LOS, Abdominal FLA LOS Solomon ography Specimen (Source) Anatomical Collection Method Collection Time Re ceived Time Location / / Volume Laterality 02/11/2022 2:59 PM CDT Impressions 02/11/2022 4:11 PM CDT 1. Mass worrisome for urothelial neoplasm along the left bladder wall obstructing the left UVJ with resultant hydronephrosis and ureterectas is. 2. No specific findings to suggest upper tract urothelial neoplasm. 3. Slightly nodular configuration of the liver suggests cirrhosis. 4. Spleen size upper limits of normal. Narrative 02/11/2022 4:11 PM CDT EXAM: ??CT UROGRAM WITHOUT AND WITH IV CONTRAST COMPARISON: ??Outside CT 01/24/2022 FINDINGS: ??Irregular enhancing mass gilda ng the left urinary bladder extending over the left UVJ with upstream moderate left hydronephrosis an d ureterectasis despite delayed imaging, only portions of the dilated left renal collecting system and ureter are opacified. However, there is no abnormal enhancement, soft tissue masses, or wall thickening of the left renal collecting system or ureter. No specific CT findings to suggest extra vesical extension. No adenopathy in the abdomen or pelvis. Bilateral renal cysts. Right renal colle cting system and ureter are negative. Prostatic enlargement. Slightly nodular configuration of the li jaylin suggests cirrhosis. Spleen size upper limits of normal measuring 13 cm in greatest craniocaudal dimension. Emphysematous changes both lower lungs. Small right pleural effusion. Atelectasis and scarring in both lower lungs. Procedure Note Pam Ellison M.D. - 02/11/2022Form atting of this note might be different from the original. EXAM: CT UROGRAM WITHOUT AND WITH IV CON TRAST COMPARISON: Outside CT 01/24/2022 FINDINGS: Irregular enhancing mass along the left urinary bladder extending over the left UVJ with upstream moderate left hydronephrosis an d ureterectasis despite delayed imaging, only portions of the dilated left renal collecting system and ureter are opacified. However, there is no abnormal enhancement, soft tissue masses, or wall thickening of the left renal collecting system or ureter. No specific CT findings to suggest extra vesical extension. No adenopathy in the abdomen or pelvis. Bilateral renal cysts. Right renal colle cting system and ureter are negative. Prostatic enlargement. Slightly nodular configuration of the li jaylin suggests cirrhosis. Spleen size upper limits of normal measuring 13 cm in greatest craniocaudal dimension. Emphysematous changes both lower lungs. Small right pleural effusion. Atelectasis and scarring in both lower lungs. IMPRESSION: 1. Mass worrisome for urothelial neoplas m along the left bladder wall obstructing the left UVJ with resultant hydronephrosis and ureterectas is. 2. No specific findings to suggest upper tract urothelial neoplasm. 3. Slightly nodular configuration of the liver suggests cirrhosis. 4. Spleen size upper limits of normal. David Giovanna Barb Sevilla, Delia, B.A.O. IMG CT PROCEDURES documented in this encounter Visit Diagnoses Diagnosis Malignant Neoplasm Of Bladder (HCC) documented in this encounter Administered Medications Inactive Administered Medications - up to 3 most recent administrations Medication Order MAR Action Action Date Dose Rate Site iohexoL 300 mg iodine/mL solution Given 02/11/2022 2:53 PM CDT 1 40 mL 1-200 mL (OMNIPAQUE) 1-200 mL, intravenous, Once in imaging, contrast, Starting on Fri02/11/22 at 1425, For 1 dose, Imaging Protocol Orders, Dose per Radiant Medication Guidelines sodium chloride 0.9 % flush 1-250 mL Given 02/11/2022 2:53 PM CDT 190 mL 1-250 mL, intravenous, Once, On Fri02/11/22 at 1430, For 1 dose, Imaging Protocol Orders documented in this encounter Care Teams Continuity Coordinator Relationship Specialty Start Date End Date Elsewhere, Pcp PCP - General Internal Medicine 01/14/22 documented as of this encounter
--- OUTSIDE RECORDS SUMMARY | 2022-07-31 11:35 | XMS_ITS | Encounter Summary ---
:1935 Author Organization [facility] Address [address] [place] [phone] Care Team Providers Name Role Phone Elsewhere, Pcp Primary Care Provider Unavailable Encounter Details Date Type Department Care Team Description 02/08/2022 Ancillary Procedure Department of David Day Neoplasm Radiology in M, Roel, B.Ch., Of Bladder ( HCC) [place], [place] B.A.O. [address] [facility] [address] [place] [phone] Social History Tobacco Use Types Packs/Day Years [...] you attend orthodox or Patient refused 2021 scientology services? Do [...] place to sleep or slept in a correction (including now)? 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 [address] [place] [phone] (Wo rk) 08/20/2022 Appointment Radiology Claude Loaiza MPAS, P.A.-C. [address] [place] [phone] (Wo rk) 08/22/2022 Virtual Visit Urology Gibran Ruvalcaba M.D. [address] [place] [phone] (Wo rk) documented as of this encounter Procedures Procedure Name Priority Date/Time Associated Comments Diagnosis INTERPRETATION OF RAD - Routine 02/08/2022 10:09 Malignant Resul ts for OUTSIDE CT CHEST (most inpatients AM CDT Neoplasm Of this pr ocedure and all Bladder (HCC) are in the outpatients) results section. documented in this encounter Results Interpretation of Outside CT Chest (02/08/2022 10:09 AM CDT) Anatomical Region Laterality Modality Chest, Thoracic RST LOS, Thoracic ARZ LOS, Thoracic N/A Computed Tomography FLA LOS, Other, Body Specimen (Source) Anatomical Collection Method Collection Time Re ceived Time Location / / Volume Laterality 02/08/2022 10:14 AM CDT Impressions 02/08/2022 10:29 AM CDT No definite evidence of metastatic disease. Moderate emphysema. Cardiovascular findings may reflect mild congestive failure. Narrative 02/08/2022 10:29 AM CDT EXAM: ??INTERPRETATION OF OUTSIDE CT CHEST COMPARISON: ??None FINDINGS: ??Outside CT examination of th e chest with intravenous contrast from 01/25/2022. No discrete pulmonary nodules are seen. A few small foci of endobronchial plugging are present. Moderate emphysema. Scattered probable p arenchymal scarring. Small right and trace left pleural effus ions. Enlarged cardiac chambers with predominant biatrial enlargement. Aortic and coronary artery vascular calcification. Reflux of contrast into hepatic veins can be seen with poor cardiac func tion. Mild dilatation of the main pulmonary artery. Procedure Note Luis Miguel Jean M.D., Ph.D. - 02/08/2022 EXAM: INTERPRETATION OF OUTSIDE CT CHEST COMPARISON: None FINDINGS: Outside CT examination of the chest with intravenous contrast from 01/25/2022. No discrete pulmonary nodules are seen. A few small foci of endobronchial plugging are present. Moderate emphysema. Scattered probable p arenchymal scarring. Small right and trace left pleural effus ions. Enlarged cardiac chambers with predominant biatrial enlargement. Aortic and coronary artery vascular calcification. Reflux of contrast into hepatic veins can be seen with poor cardiac func tion. Mild dilatation of the main pulmonary artery. IMPRESSION: No definite evidence of metastatic disea se. Moderate emphysema. Cardiovascular findings may reflect mild congestive failure. David Sevilla, B.Ch., B.A.O. 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
--- OUTSIDE RECORDS SUMMARY | 2022-07-31 11:35 | XMS_ITS | Encounter Summary ---
:1935 Author Organization [facility] Address [address] [place] [address] Care Team Providers Name Role Phone Elsewhere, Pcp Primary Care Provider Unavailable Encounter Details Date Type Department Care Team Description 02/15/2022 Clinical Communication Department of Urology David Day in [place], Juan., B.Ch., [place] B.A.O. [address] [place] [address] [address] [place] [phone] Social History Tobacco Use Types Packs/Day Years [...] or relatives? How often do you attend buddhist or Patient refused 2021 muslim services? 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 - 02/15/2022 2:01 PM CDT Spoke with the daughter over the phone. Patient has seen his local ward service supervisor today and he clearedhim for general anesthesia. Informed the patient and his family that if he wants to have the procedure TURBT to be done here at [facility] he will still require to have clearance by our cardiology team given his comorbidities. After discussion. Patient this family elected to continue with planned procedure left nephrostomy tube placement and percutaneous biopsy of the bladder. At the same time, theywould like us to place a consult for Cardiology in anticipation for hopefully clearing him for a procedure in the future based on the biopsy results. I informed them that I will place a urology consultfor clearance for general anesthesia. Telephone Encounter - Nasreen Waller - 02/15/2022 1:46 PM CDT Patient's daughter, Desiree Chery, calls in and said Henok just met with the cardiologists and theyhave new news about him being able to handle a surgical procedure. They would like you to call them to discuss further and possibly cancelling the biopsy scheduled for Friday. Desiree can be reached at [phone]. documented in this encounter Plan of Treatment Upcoming Encounters Date Type Specialty Care Team Description 08/20/2022 Appointment Radiology Kandler, ClaudeGARCIA Esquivel P.A.-C. [address] [place], [place] [phone] (Wo rk) 08/20/2022 Appointment Radiology Claude Loaiza MPAS, P.A.-C. [address] [place], [place] [phone] (Wo rk) 08/22/2022 Virtual Visit Urology Gibran Ruvalcaba M.D. [address] [place], [place] [phone] (Wo rk) documented as of this encounter Visit Diagnoses Diagnosis Hematuria - Primary documented in this encounter Additional Health Concerns Infection Onset Date Last Indicated Resolved Time COVID19 Pending 02/15/2022 02/15/2022 02/15/2022 10:28 PM CDT COVID19 Pending 02/20/2022 02/20/2022 02/20/2022 8:04 PM CDT documented as of this encounter Care Teams Wind Farm Support Specialist Relationship Specialty Start Date End Date Elsewhere, Pcp PCP - General Internal Medicine 01/14/22 documented as of this encounter
--- OUTSIDE RECORDS SUMMARY | 2022-07-31 11:35 | XMS_ITS | Encounter Summary ---
:1935 Author Organization [facility] Address [address] [place] [address] Care Team Providers Name Role Phone Elsewhere, Pcp Primary Care Provider Unavailable Encounter Details Date Type Department Care Team Description 02/15/2022 Hospital Encounter Department of David Day Hydron ephrosis; Laboratory Medicine in Roel Heredia, B.Ch., [facility] B.A.O [address] [facility] [address] [place] [phone] Social History Tobacco Use Types Packs/Day Years [...] you attend religion or Patient refused 2021 shinto services? 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 [address] [place] [phone] (Octavio christensen) 08/20/2022 Appointment Radiology Claude Loaiza MPAS, P.A.-C. [address] [place], [place] 55 [phone] (Octavio christensen) 08/22/2022 Virtual Visit Urology Gibran Ruvalcaba M.D. [address] [place], [place] [phone] (Wo rk) documented as of this encounter Procedures Procedure Name Priority Date/Time Associated Diagnosis Comme nts SARS CORONAVIRUS-2 Routine 02/15/2022 9:22 AM Hydronephr osis Results for this RNA, V CDT Mass Bladder procedure are i n the results section. documented in this encounter Results SARS Coronavirus-2 RNA, V Asymptomatic (02/15/2022 9:22 AM CDT) [facility] Method Time Signature SARS-CoV-2 Swab, 02/15/2022 MKTO [...] pe rformed using the Aptima SARS-CoV-2 assay ([employer] on the [employer] tem under emergency use authorization (EUA) by the U.S. Food and Drug Administ ration. Fact sheets for this EUA assay can be fo und at the following links: For Healthcare Providers: https://www.fd a.gov/media/163340/download For Patients: https://www.fda.gov/media/ 278718/download Specimen Anatomical Collection Method Collection Time Receive d Time (Source) Location / / Volume Laterality Varies 02/15/2022 9:22 AM 3:08 (Nasopharynx) CDT PM CDT David Sevilla BChano., B.A.O. LAB MICROBIOLOGY - GENERAL ORDERABLES Performing Organization Address City/State/ZIP Code Phon e Number [facility]- [address] [place] [id number] [facility] [place] [address] System in [address] documented in this encounter Visit Diagnoses Diagnosis Hydronephrosis Mass Bladder documented in this encounter Additional Health Concerns Infection Onset Date Last Indicated Resolved Time COVID19 Pending 02/15/2022 02/15/2022 02/15/2022 10:28 PM CDT documented as of this encounter Care Teams Manager Marketing Communication Relationship Specialty Start Date End Date Elsewhere, Pcp PCP - General Internal Medicine 01/14/22 documented as of this encounter
--- OUTSIDE RECORDS SUMMARY | 2022-07-31 11:35 | XMS_ITS | Encounter Summary ---
:1935 Author Organization [facility] Address [address] [place] [id number] Care Team Providers Name Role Phone Elsewhere, Pcp Primary Care Provider Unavailable Reason for Referral Medication Prior Authorization - Denied Specialty Diagnoses / Procedures Referred By Contact Refer red To Contact Nura David IV, M.D. [address] [place] [phone] Referral ID Status Reason Start Date Expiration Date Visits Requ ested Visits Authorized [id number] Denied 1 1 Outpatient (Routine) - Closed Specialty Diagnoses / Procedures Referred By Contact Refer red To Contact Diagnoses Retention Urinary Cori Reece M.D. [facility] Procedures URO Urethral cath removal & voiding trial (UCO/VT) [address] [place] [phone] Referral ID Status Reason Start Date Expiration Date Visits Requ ested Visits Authorized [id number] Closed 02/22/2022 02/22/2023 1 1 utpatient (Routine) - Closed Specialty Diagnoses / Procedures Referred By Contact Refer red To Contact Urology Cori Reece M.D . [facility] [address] [place] [phone] Referral ID Status Reason Start Date Expiration Date Visits Requ ested Visits Authorized [id number] Closed 02/22/2022 02/22/2023 1 1 Scheduling Instructions [facility] Reason for Visit MRI/CAT/PET Scan (Routine) - Closed Specialty Diagnoses / Procedures Referred By Contact Refer red To Contact Radiology Diagnoses Mass Bladder David Day M.B., [facility] Procedures CT Abdomen and/or Pelvis Biopsy CT Biopsy Other B.Ch., B.A.O. [address] [place] [phone] Referral ID Status Reason Start Date Expiration Date Visits Requ ested Visits Authorized [id number] Closed 02/12/2022 02/12/2023 1 1 Encounter Details Date Type Department Care Team Description 02/18/2022 - Hospital Encounter [facility] Richmond Day M.B., B.Ch., B.A.O. [address] [place] [phone] Malignant Neoplasm Of Bladder (HCC) (Idalia wolfe Dx); 02/22/2022 [facility] Kevin Prajapati M.D., M.P.H. [address] [place] [phone] Mass Bladder; [facility], Sixth Floor [address] [place] [phone] Social History Tobacco Use Types Packs/Day Years [...] you attend [employer] or Patient refused 2021 worship services? 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 - 02/22/2022 6:48 PM CDT DISCHARGE SUMMARY BRIEF OVERVIEW Hospital: [facility] Discharge Provider: Kevin Villarreal M.D. Primary Team: T Urology Surgery - Chief Becky Calhoun Primary Care Providers: Elsewhere, Pcp (General) No address on file Primary Care Provider Phone Number: None Primary Care Provider Fax Number: None Other Providers: None Admission Date: 02/18/2022 Discharge Date: 02/22/2022 PRINCIPAL DIAGNOSIS Malignant Neoplasm Of Bladder (HCC) SECONDARY DIAGNOSES Principal Problem: Malignant Neoplasm Of Bladder (HCC) Active Problems: Retention Urinary Resolved Problems: * No resolved hospital problems. * DISCHARGE DISPOSITION Home-Health Care [facility] [6] ACTIVE ISSUES REQUIRING FOLLOW UP - [facility] outpatient clinic visit on Tuesday 02/27 with uro flow, and catheter removal with voiding trial.You will be contacted with exact times when these are scheduled. OUTPATIENT FOLLOW UP Scheduled Appointments 03/25/2022 10:30 AM Yolis Prescott M.D. Radiation Oncology For appointment details refer to your Patient Appointment Guide. TEST RESULTS PENDING AT DISCHARGE Pending Labs None DETAILS OF HOSPITAL STAY REASON FOR ADMISSION Mass Bladder Malignant Neoplasm Of Bladder (HCC) HOSPITAL COURSE PROCEDURE: Patient underwent LEFT nephrostomy tube placement and percutaneous bladder mass biopsy with Interventional Radiology in an uncomplicated fashion. HOSPITAL COURSE: S/p left PCN tube placement and percutaneous biopsy of bladder mass with Interventional Radiology 02/18/2022. Path HG T1, muscle present and uninvolved. 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 Kept inpatient due to decreased hemoglobin and hematuria. 5/ Blood transfusion given and CBI started. / significant clot burden irrigated from catheter. Hb remained stable. 02/21 Hb down to 7.1 from 8.8. Transfused. Otherwise stable. Evaluated by Medicine and Cardiology with conclusion being that patient is high- risk surgical candidate due to cardiovascular comorbidities. Patient and family would like to take as conservative approach as possible in terms of avoiding surgery if at all possible. Have expressed desire for DNR/DNI. Fortunately, we were able to wean off CBI on 02/22 without need for further intervention. Patient unable to void spontaneously, so dismissed with indwelling catheter. DISCHARGE EXAM: General: resting comfortably in bed, Alert and oriented x 3 Heart: regular rate Lung: normal respiratory rate; not in respiratory distress Abd: soft, non distended, non tender : left nephrostomy tube draining clear yellow urine. Hayward catheter draining peach clear urine Extremities: warm, well perfused Neuro: no gross deficits DISCHARGE LABS: Hb 7.6 stable Cr 1.3 CONSULTS ORDERED DURING THIS ADMISSION IP CONSULT TO CARDIOLOGY IP CONSULT TO CARE MANAGEMENT CONDITION AT DISCHARGE stable Discharge instructions were provided to the patient and caregiver(s). documented in this encounter Discharge Instructions Discharge Instr - ActivityRajni Hernandez APRN, C.N.Zuleima., M.S.N. - 02/15/2022 3:08 PM CDT Medications: -Hold aspirin 24 hours post-procedure, then resume as indicated. Care for the site: Keep dressing in place over site for 24 hours. 24 hours after procedure, it is okay to shower. Remove the dressing, clean and rinse the puncture site gently with soap and water and dry thoroughly. Reapply a Band-Aid to the puncture site or leave open to air. Do not submerge puncture site in water such as tub bathing or swimming until completely healed. Activity: No vigorous activities for 24-48 hours. Seeking emergency care: Contact your health care provider immediately or seek emergency care for the following symptoms: A temperature of 101 degrees Fahrenheit (38.3 degrees Celsius) or higher Chills Severe abdominal pain Drainage that has blood in it for more than 24 hours. For nonemergent questions or concerns: If you have questions related to the procedure, please contact the [facility] winder contort operator ([phone]) and ask to be connected to the non-vascular interventional radiology fellow diamond saw operator AttachmentsThe following attachments cannot be sent through Care Everywhere. Sulfamethoxazole (By mouth) (Malawian)Trospium (By mouth) (Malawian)documented in this encounter Medications at Time of Discharge Medication Sig Dispensed Refills Start Date End Date aspirin [address] tablet Take 1 tablet by 0 2015 mouth daily. trospium (SANCTURA) 20 mg Take 1 tablet (20 30 tablet 0 03/2022 tablet mg total) by mouth 2 (two) times a day as needed (bladder spasms). amLODIPine (NORVASC) 2.5 Take 2.5 mg by 0 mg tablet mouth daily. buPROPion XL (WELLBUTRIN Take 300 [...] 0 10/27/2017 mg capsule 2000 mg on lisinopriL Take 2.5 mg by 0 (PRINIVIL,ZESTRIL) [...] by 0 01/19 mg capsule mouth daily. sulfamethoxazole-trimethop Take 1 tablet by 6 tablet 0 07/202203/01/2022 rim (BACTRIM DS) 800-160 mouth 2 (two) times mg per tablet a day for 3 days. documented as of this encounter Progress Notes Nura David IV, M.D. - 02/22/2022 2:12 PM CDT Had a long discussion with the patient and his family regarding the patient's diagnosis in next steps. Discussed that his percutaneous bladder mass biopsy demonstrated high-grade T1, muscle present and uninvolved. Did discuss that, while muscle was present and not involved in the specimen, that does notnecessarily guarantee nonmuscle invasive disease, as there are other non-sampled areas that may contain muscle invasion. Nevertheless, would approach this as high-grade T1. We reviewed the patient's and family's wishes to avoid invasive interventions for the treatment of his bladder cancer and hematuria. While the standard initial management for HG T1 bladder cancer wouldbe TURBT, the patient and his family have expressed their strong desire to avoid this treatment modality given the patient's high risk for perioperative complications and even mortality. We did discuss other options for management, mainly palliative radiation therapy. We discussed this would be palliative in nature and that an additional goal would be to treat his gross hematuria. We noted that, with the obstructing bladder mass remaining in place, patient will likely require chronic nephrostomy tube. Discussed this will need exchange every 3 months. Lastly, we did discuss that the patient may have ongoing issues with urinary retention and make required definite Hayward catheterization. The patient and patient's family had an excellent grasp of our discussion. The patient and his family agree have elected to pursue palliative radiation. PLAN - Discharge today with indwelling Hayward catheter due to retention. - Radiation oncology consultation is scheduled for 03/25/2022. - Orders placed for nephrostomy tube exchange in 3 months. - Orders placed for Chief clinic [facility] visit Tuesday 02/27 to touch base and attempt UCO. Florencio David IV, M.D. Ken Gilbert, Pharm.DJluis, R.Ph. - 02/22/2022 9:18 AM CDT Pharmacist Progress Note Reason for admission: Mass Bladder [N32.89] Malignant Neoplasm Of Bladder (HCC) [C67.9] Patient Active Problem List Diagnosis ??? Hypertension And Chronic Kidney Disease Stage 1 To 4 ??? Diabetes Mellitus NOS ??? Malignant Neoplasm Of Bladder (HCC) OBJECTIVE Home medications: ??? Held: amlodipine, aspirin, furosemide, glipizide, lisinopril ??? Changed: omeprazole to pantoprazole Patient own medications: none Prophylaxis: Heparin 5000 units TID LABS: Scr 1.38, other lytes wnl. ASSESSMENT / PLAN 1. CV: BP 120s/50s. Amlodipine, furosemide, lisinopril remain on hold. 2. NEPH: CrCl 44 ml/min. Meds reviewed. Changes to medications anticipated at discharge: SAM Gilbert PharmJluisDJluis, R.Ph. ura Howard IV, M.D. - 02/22/2022 4:47 AM CDT Subjective S/p left PCN tube placement and percutaneous biopsy of bladder mass with Interventional Radiology 02/18/2022. AF VSS overnight on 2 L/min nasal cannula This morning, patient reports having slept well. Urine charted as pink clear with CBI slow rate overnight. Objective AF VSS - bradycardic PO 500 cc 1 unit pRBC Urine CBI BM x3 Exam: - neph tube draining clear yellow urine no clots - abdomen and flanks are unremarkable - urine in hayward catheter draining fruit punch with small clot urine on slow CBI Hemoglobin: 7.6 < 8 < 8 < transfusion 1 unit pRBC < 7.1 < 8.8 < 8.1 < Transfusio n 1 unit pRBC < 7.4 < 7.9 < 9.6 (pre-procedure) White blood cell count 9.4 < 10.4 < 11.7 < 9.3 Creatinine 1.38 < 1.42 < 1.35 < 1.2 Assessment: S/p left PCN tube placement and percutaneous biopsy of bladder mass with Interventional Radiology 02/18/2022. Path HG T1, muscle present and uninvolved. 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 Kept inpatient due to decreased hemoglobin and hematuria. 5/3 Blood transfusion given and CBI started. 5/4 significant clot burden irrigated from catheter. Hb remained stable. 5/5 Hb down to 7.1 from 8.8. Transfused. Otherwise stable. Evaluated by Medicine and Cardiology with conclusion being that patient is high- risk surgical candidate due to cardiovascular comorbidities. Patient and family would like to take as conservative approach as possible in terms of avoiding surgery if at all possible. Have expressed desire for DNR/DNI. Will consider inpatient Radiation Oncology consultation for palliative radiation if unable to control hematuria with CBI. PLAN: - continue CBI as needed - will discuss potential inpatient Radiation Oncology consultation today - trend Hb daily - avoid IVF given risk of fluid overload with low LVEF Diet: regular IVF: saline locked Antibiotics: none Catheter: yes Home meds restarted: hydroxyurea, Wellbutrin, PPI Home meds held: Lasix, Robaxin, ASA 81, nitroglycerin Nura David IV, M.D. - 02/21/2022 3:46 AM CDT Subjective S/p left PCN tube placement and percutaneous biopsy of bladder mass with Interventional Radiology 02/18/2022. AF VSS overnight on 1-2 L/min nasal cannula This morning, patient reports discomfort associated with catheter. Objective AF VSS PO 500 cc IVF 450 cc Urine CBI Exam: - neph tube draining clear peach-colored urine no clots - abdomen and flanks are unremarkable - urine in hayward catheter draining clear fruit punch urine on moderate CBI Hemoglobin: 7.1 < 8.8 < 8.1 < Transfusion 1 unit pRBC < 7.4 < 7.9 < 9.6 (pre-procedure) White blood cell count 10.4 < 11.7 < 9.3 Creatinine 1.42 < 1.35 < 1.2 Assessment: S/p left PCN tube placement and percutaneous biopsy of bladder mass with Interventional Radiology 02/18/2022. 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 Kept inpatient due to decreased hemoglobin and hematuria. 5/3 Blood transfusion given and CBI started. 02/20 significant clot burden irrigated from catheter. Hb remained stable. 02/21 Hb down to 7.1 from 8.8. Otherwise stable. PLAN: - will manually irrigate catheter again today - continue CBI. If he is not off of CBI by 02/21, would consider going to OR 02/21 for palliative cystoscopy, clot evacuation, fulguration, TURBT, possible left ureteral stent, proceed as indicated - trend Hb every 12 hours - gentle IVF while PO intake low Diet: regular IVF: 50 cc/hr Antibiotics: none Catheter: yes Home meds restarted: hydroxyurea, Wellbutrin, PPI Home meds held: Lasix, Robaxin, ASA 81, nitroglycerin AT Nura David IV, M.D. - 02/20/2022 2:49 PM CDT I returned to the patient's bedside for discussion with him and his family. Patient is hemodynamically normal. Urine is now clear light pink with no clots on moderate CBI drip. Hemoglobin returned stable at 8.8. Hepatic function panel and coagulation studies were reassuring may within normal limits. Added nice discussion with the patient's family. The patient was sleeping during this time. We discussed the patient's current status. His hematuria has improved on CBI. His hemoglobin remained stable. We were able to irrigate out a significant amount of clots earlier in the day. At this time, our goal is to continue to manage his hematuria with CBI and hopefully avoid the operating room. We will give him at least another 24 hours on bladder irrigation. If he has not improved on bladder irrigation by tomorrow afternoon, we will plan on operating room for palliative cystoscopy,clot evacuation, transurethral resection of bladder tumor, possible left ureteral stent placement, possible multiple trips to the operating room in the next 90 days, proceed as indicated on Friday02/22/22. He is NPO at midnight tonight only in case his status changes and he requires OR sooner. Regarding goals of care, we did have a discussion about his code status. Specifically, we reviewed his discussion with my Medicine colleagues regarding his DNR/DNI status. The patient's family reinforced their desire for DNR/DNI. I did discuss that this code status would need to be temporarily reversed to full code in the perioperative period, which they understand and agree with. We reviewed what the potential surgical procedure would entail, including resection of bleeding bladder tumor followed by visually complete resection if safe. We did note that general anesthesia with paralysis may be required given the nature of the surgery and the risk for bladder perforation. I noted the significant risk of undergoing anesthesia in the setting of his heart disease and other comorbidities. They acknowledge that it is higher risk and are glad that they had this discussion about goals of care. They agree with the plan as described above. As outlined by my Medicine consult colleagues, patient's wishes via surrogate decision maker include: 1. DNR/DNI ?? 2. No escalation to ICU cares; if illness becomes critical and unsustainable on general care floors - prefer to forgo ICU for life sustaining measures and optimize time being well and not sick ?? 3. If patient did undergo surgery and was unable to be extubated beyond expected operative course, preference to compassionately extubate PLAN: - continue CBI - Hb every 12 hours - if urine not clear on CBI by end of day 02/21, will plan on OR 02/22 for palliative cystoscopy, clot evacuation, transurethral resection of bladder tumor, possible left ureteral stent placement, possiblemultiple trips to the operating room in the next 90 days, proceed as indicated Florencio David IV, M.D. Leonel Forman Pharm.DJluis, R.Ph. - 02/20/2022 1:33 PM CDT Pharmacist Progress Note Reason for admission: Mass Bladder [N32.89] Malignant Neoplasm Of Bladder (HCC) [C67.9] Patient Active Problem List Diagnosis ??? Hypertension And Chronic Kidney Disease Stage 1 To 4 ??? Diabetes Mellitus NOS ??? Malignant Neoplasm Of Bladder (HCC) OBJECTIVE Home medications: ??? Held: amlodipine, aspirin, furosemide, glipizide, lisinopril ??? Changed: omeprazole to pantoprazole Patient own medications: none Prophylaxis: Heparin 5000 units TID ASSESSMENT / PLAN 1. Medications, labs, notes reviewed. Changes to medications anticipated at discharge: TBD Leonel Forman PharmCasey., R.Ph. Nura David IV, M.D. - 02/20/2022 3:49 AM CDT Subjective S/p left PCN tube placement and percutaneous biopsy of bladder mass with Interventional Radiology 02/18/2022. AF VSS overnight on 1-2 L/min nasal cannula This morning, patient reports discomfort associated with catheter. Objective AF VSS PO 600 Urine CBI Exam: - neph tube draining merlot red urine - abdomen and flanks are unremarkable - urine in hayward catheter merlot red Hemoglobin: 8.1 < Transfusion 1 unit pRBC < 7.4 < 7.9 < 9.6 (pre-procedure) White blood cell count 11.7 < 9.3 Creatinine 1.35 < 1.2 Assessment: S/p left PCN tube placement and percutaneous biopsy of bladder mass with Interventional Radiology 02/18/2022. 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 Kept inpatient due to decreased hemoglobin and hematuria. 5/3 Blood transfusion given and CBI started. PLAN: - CBI - we will manually irrigate today - will order SCDs and hold subcu heparin today to see if this helps w/ bleeding - trend Hb BID Diet: regular IVF: saline locked Antibiotics: none Catheter: yes Home meds restarted: hydroxyurea, Wellbutrin, PPI Home meds held: Lasix, Robaxin, ASA 81, nitroglycerin Nura David IV, M.D. - 02/19/2022 7:16 AM CDT Subjective S/p left PCN tube placement and percutaneous biopsy of bladder mass with Interventional Radiology 02/18/2022. Eating a done at this morning. Sitting up in bed. Appears well. Not very conversive. Nurse at bedside reports urine has been bright red. No clots seen. Objective AF VSS Exam: - neph tube draining clear tea-colored urine - no urine is available for my review - abdomen and flanks are unremarkable Hemoglobin: 7.9 from 9.6 White blood cell count 9.3 Creatinine 1.2 Assessment: S/p left PCN tube placement and percutaneous biopsy of bladder mass with Interventional Radiology 02/18/2022. 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 Given report of bright red blood per urine and drop in hemoglobin, will monitor this morning. Will repeat hemoglobin at 9:30 a.m. if hemoglobin is stable and bladder is emptying well and hematuria is acceptable, patient may dismiss. PLAN: - Hb at 0930 AM - monitor vitals and hematuria - possible dismissal this afternoon if Hb stable documented in this encounter H&P Notes Cori Reece M.D. - 02/18/2022 2:24 PM CDT Urology chief service H&P SUBJECTIVE Mr. Chery is a 86 years old gentleman with history of chronic kidney disease, congestive heart failure and cardiomyopathy with reduced ejection fraction of 20%-25%, polycythemia vera, hypertension,hearing loss, squamous cell carcinoma of the skin, depression, obesity, type 2 diabetes, gout. He has a large bladder mass causing obstruction of the left ureteral orifice with severe upstream hydroureteronephrosis. He is now s/p left PCN tube placement and percutaneous biopsy of bladder mass with Interventional Radiology today. Claire-procedural course thus far unremarkable. He denies nausea, vomiting. Pain is well controlled onoral medications. He ordered lunch, and was able to tolerate some of his diet, but states that he isstill not very hungry. OBJECTIVE: Vitals: BP 135/65 Pulse (!) 47 Temp 36.5 ??C (Oral) Resp 15 Ht 175.3 cm Wt 80.1 kg SpO2 98% BMI 26.08 kg/m?? Exam: General: No acute distress, awake, alert, oriented Heart: Regular rate Lungs: Normal effort and respiratory rate Abdomen: Soft, non-tender, non-distended, non-peritonitic. Left nephrostomy tube with dressing in place : Deferred ASSESSMENT: S/p routine left PCN tube placement and percutaneous biopsy of bladder mass with Interventional Radiology today. Periprocedural course thus far unremarkable. Will monitor overnight. Given significant comorbidities, will check AM labs. PLAN: - overnight observation - AM CBC, BMP - home meds restarted: hydroxyurea - home meds held: lisinopril-HCTZ - Future plan: Cardiology consultation pending for preoperative clearance for TURBT Please page Chief Urology at [phone] from 7 AM - 5 PM or at [phone] after hours with any questions/concerns. Cori Reece M.D. documented in this encounter Consult Notes Braden Gan M.D. - 02/21/2022 4:57 PM CDTAssociated Order(s): IP CONSULT TO CARDIOLOGY CARDIOLOGY CONSULT NOTE DEMOGRAPHIC INFORMATION Patient Name: Henok Chery Birthdate: 1935 Age: 86 y.o. Sex: male Address: [address] [place] [phone] CHIEF COMPLAINT/PURPOSE OF VISIT - Pre-operative evaluation HISTORY OF PRESENT ILLNESS Henok Chery is a 86 y.o. 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 Chery was recently diagnosed in December with nonischemic cardiomyopathy. At that time, he had a coronary angiogram done which showed mild left main disease, mild to moderate LAD disease, mild to moderate circ disease, and a small non dominant RCA with moderate severe disease. Right heart catheterization showed a right atrial pressure of 17, PA pressure of 53/29 with a mean pressure of 40, pulmonary capillary wedge pressure of 30, and a cardiac index of 2.53. The patient was then started on diuresis with Lasix. He has not tolerated beta- blockers in the past due to hypotension, has not tolerated YISSEL inhibitors due to renal dysfunction. Cardiology Service was consulted for preoperative evaluation prior to transurethral bladder tumor resection. Mr. Chery underwent percutaneous L nephrostomy tube placement and bladder mass biopsy with Interventional Radiology on February 18, 2022. In speaking with the patient today, he has been asymptomatic froma cardiac perspective. He denies having any chest pain or heart failure symptoms. Of note, the patient received 1 unit of packed RBCs transfusion today. ROS 10-point ROS was done and was negative except for what was mentioned above. HOME CARDIAC MEDICATIONS - Aspirin 81 mg daily - Amlodipine 2.5 mg daily - Lasix 20 mg twice daily ALLERGIES Allergies Allergen Reactions ??? Penicillins Anaphylaxis and Other (see comments) ??? Beta-Blockers (Beta-Adrenergic Blocking Agts) Other (see comments) Bradycardia VITALS Blood pressure (!) 120/49, pulse (!) 42, temperature 36.2 ??C, temperature source Oral, resp.rate 18, height 175.3 cm, weight 78.6 kg, SpO2 94 %. PHYSICAL EXAM General appearance: not in acute distress Neck: elevated JVP Heart: Holosystolic murmur in the left lower sternal border Lungs: bilateral air entry, no crackles or wheezing Abdomen: soft and non-tender Extremities: non-edematous DIAGNOSTICS Results from last 7 days Lab Units 02/21/22 1208 02/21/22 0346 02/20/22 1213 02/20/22 0330 02/19/22 0934 02/19/22 0333 WBC x10(9)/L -- 10.4* -- 11.7* -- 9.3 HEMOGLOBIN g/dL 8.0* 7.1* 8.8* 8.1* < > 7.9* HEMATOCRIT % -- 23.4* -- 25.7* -- 27.2* MCV fL -- 106.4* -- 102.4* -- 107.1* PLATELETS AUTO x10(9)/L -- 366* -- 428* -- 434* < > = values in this interval not displayed. Results from last 7 days Lab Units 02/21/22 0346 02/20/22 0330 02/19/22 0333 CREATININE mg/dL 1.42* 1.35 1.25 TTE (02/21/2022): 1. Severely enlarged left ventricular chamber size, generalized hypokinesis with regional variability, calculated 2-D biplane volumetric ejection fraction 25%. 2. Elevated left ventricular filling pressure. 3. Moderate-severely enlarged right ventricular chamber size, mild-moderately reduced systolic function, estimated right ventricular systolic pressure 50 mmHg (right atrial pressure of 15 mmHg). 4. Severe tricuspid valve regurgitation, ERO (PISA) 0.79 cm2, regurgitant volume (PISA) 68 ml . Tricuspid annulus dilatation. There is also evidence of increased pulmonary vascular resistance. 5. No pericardial effusion. 6. Enlarged inferior vena cava size with reduced inspiratory collapse (<50%). 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 Chery is compensated on physical examination with no increased oxygen requirements, crackles, or lower extremity edema. He has elevated JVP in the setting of severe tricuspid regurgitation. Ejection fraction on transthoracic echocardiography is unchanged as compared to before, 22-25%. He has not tolerated heart failure medications in the past including beta-blockers and YISSEL inhibitors. He is on Lasix 20 mg twice daily as outpatient and has not been on any diuretic while in the hospital. We recommend resumption of diuresis since he has been requiring blood transfusions. Per the ACC/AHA guidelines, although signs and/or symptoms of decompensated HF confer the highest risk, severely decreased (<30%) left ventricular ejection fraction (LVEF) itself is an independent contributor to perioperative outcome and a long-term risk factor for in patients with HF undergoing elevated- risk noncardiac surgery. Survival after surgery for those with a LVEF ?29% is significantly worse than for those with a LVEF >29%. Therefore, we cannot say that the patient is risk-free but he is medically optimized as much as possible to have a non-cardiac procedure done. Case was discussed and staffed with Dr. Louis. Please page the [facility] consult service in case of questions or concerns. Braden Gan M.D. 02/21/22 Damaris Gooden, RJluisN. - 02/21/2022 1:03 PM CDT Discharge Planning Assessment SUBJECTIVE Assessment Information Referral Source: flexible shaft winder Referral Reason: Discharge Planning Primary Language: Malawian Sweeper Driver Services Used: No Person(s) present during interview: Person(s) Present During Interview: patient and Spouse - Yvette Milton- Ralph History of Present Illness #1 Malignant Neoplasm Of Bladder (HCC) Social History Marital Status: Finance/Insurance Primary insurance: MEDICARE A AND B Secondary insurance: [employer] Does the patient have any financial concerns? no benefits: No Advance Directives Advance Directives: N/A Advance Directives Status: N/A OBJECTIVE Baseline Functional Status Baseline Activities of Daily Living Dressing: Independent Feeding: Independent Bathing: Needs assistance Grooming: Independent Toileting: Independent Behavior: Appropriate Communication: Talks, Understands speaking, Understands Malawian Shopping: Needs assistance Transportation: Support from family Medication Management: Needs assistance Housekeeping: Needs assistance Meal Prep: Needs assistance Managing Finances: Needs assistance Assistive Devices: Walker - four wheeled, Scooter Services/Resources: Home health Agency Name: [facility] Provided: retirement, PT Baseline Services/Resources Primary care clinic and provider: ELSEWHERE, PCP Services/Resources: Home health Additional Resources: NA Anticipated Needs Functional Status: None Assistive Devices: Walker - four wheeled, Oxygen, Scooter, Tub/shower chair/bench Services/Resources: Home health Agency Name: [facility] Provided: retirement, PT Transportation Needs: Support from family Does the patient need discharge transport arranged?: No Anticipated Discharge Destination: Home-Health Care [facility] ASSESSMENT / PLAN Plan Assessment: The flexible shaft winder met with Henok Chery to discuss his current hospitalization and home going needs. The patient was accompanied by , Miesha. The patient's was a reliable historian. The role of flexible shaft winder was reviewed. The patient's reviewed his prior level of care and support system. The patient receives support from his and children. The patient's described his living environment as a home with bedroom and bathroom on same floor with level entry. Housekeeping, grocery shopping, meal prep, and other household responsibilities have previously been completed by patient's . flexible shaft winder discussed the patient's potential needs at dismissal based on their home setting, previous needs and responsibilities, homebound status, and relevant assessments with the patient's . The patient will be safe and supported to return home with spouse when medically ready. Support will be provided by . The patient's demonstrated understanding when discussing his home going plans and anticipated needs. Patient's states her and patient live together in a one-story home in [place], [place]. Patient'swife states patient utilizes a walker for longer distances but is able to mobilize independently within the home. Patient's states patient was receiving home healthcare prior to this hospital admission for PT once per week and fci once per week. Patient's states patient is also on home oxygen at baseline. Both of theses services have been reconnected below. Patient's has nofurther questions or concerns regarding discharge at this time. At this time, the care team anticipates the patient requires the following service(s) to be reconnected: home healthcare and oxygen. The patient's identified the following as their current vendor(s): [facility] and home oxygen is provided by [employer]. The patient's reports understanding that he will dismiss from the hospital when medically stable. Pending hospital course and medical readiness, no barriers to dismissal have been identified at this time. Plan: The patient's agrees with the following plan. 1. Patient's anticipated discharge disposition is: Home with Home Healthcare and Home oxygen . Thesehave both been reconnected below. 2. Transportation upon dismissal will be provided by family--. 3. flexible shaft winder recommended reaching out to family, friends, and neighbors for assistance. 4. flexible shaft winder provided information regarding the dismissal process. 5. flexible shaft winder placed or requested the following hospital-based consult orders and/or referrals:None. 6. flexible shaft winder will continue to assess for homegoing needs with the interdisciplinary team. 7. flexible shaft winder encouraged the patient to reach out with any questions/concerns. Patient to discharge with home health care. Home Medical Care - Admitted Since 02/18/2022 Service Provider Selected Services Address Phone Fax Patient Preferred [facility] [address] [facility] [address] [phone] -- Contact: Intake NURSING: - Complete documentation in the Discharge Navigator including Nursing Report Info and Facility/NextLevel of Care Info - Call report and arrange for the patient???s first visit. - Send required packet of dismissal information with patient, including After Visit Summary and advance directive. PRIMARY SERVICE: - Please provide a non-[facility] home health order for resumption of previous services by home health care on the After Visit Summary. If additional services are needed, please provide order. - Communicate with the patient???s local primary care provider by telephone for writing of home care orders. This needs to be done to help prevent discharge delays. A copy of the After Visit Summary needs to be sent there as well. CASE MANAGEMENT: -Reviewed patient's insurance coverage for the services noted above. The Miesha appear(s) to have an understanding of this. -Will continue to follow and assist if needs arise. Oxygen Reconnect: Durable Medical Equipment - Admitted Since 02/18/2022 Service Provider Selected Services Address Phone Fax Patient Preferred [facility] Durable Medical Equipment [address] [id number] -- Contact: Intake Respiratory Equipment : Concentrator and E-tanks Oxygen provider reports patient???s current orders are for 2 liters continuous. NURSING: - Arrange transportation oxygen tank if needed. - If new oxygen requirements are needed, assist primary service with new prescription and fax to provider. PRIMARY SERVICE: - Complete and sign new oxygen prescription if needed. CASE MANAGEMENT: -Reviewed patient's insurance coverage for the services noted above. The Miesha appear(s) to have an understanding of this. -Will continue to follow and assist if needs arise. Signed by: Damaris Gooden R.N. 02/21/2022 documented in this encounter Nursing Notes Shelley Baker R.N. - 02/22/2022 6:34 PM CDT Problem: SAFETY ADULT Goal: Maintain a safe environment Outcome: Adequate for Discharge Problem: SAFETY ADULT - RISK FOR FALL AND OR FALL INJURY Goal: Patient remains free from fall/fall injury Outcome: Adequate for Discharge Problem: PAIN - ADULT Goal: PT VERBALIZES/DEMONSTRATES ADEQUATE COMFORT LEVEL OR BASELINE Outcome: Adequate for Discharge Problem: KNOWLEDGE DEFICIT Goal: Patient/family/caregiver demonstrates understanding of disease process, treatment plan, medications, and discharge instructions Outcome: Adequate for Discharge Problem: INFECTION - ADULT Goal: Absence of infection during hospitalization Outcome: Adequate for Discharge Problem: SKIN/TISSUE INTEGRITY Goal: Skin/Tissue integrity maintained or improved Outcome: Adequate for Discharge Goal: Oral and Nasal mucous membranes remain intact Outcome: Adequate for Discharge Problem: DISCHARGE PLANNING Goal: Patient discharge needs identified Outcome: Adequate for Discharge Shift Goals: Identify possible barriers to meeting goals/advancing plan of care: none End of Shift Summary:Patient discharging home with family. Neph Tube Ed and supplies have been givenand completed. Family has no questions. Has the 24 hour number to call if any questions are to arise. documented in this encounter Miscellaneous Notes Documentation Clarification - Nura David IV, M.D. - 02/20/2022 5:19 PM CDT PROVIDER RESPONSE TEXT: To clarify, the appropriate diagnosis supported by the clinical indicators: Anemia due to Hematuria <LCI> QUERY TEXT: DOCUMENTATION CLARIFICATION REQUEST Please clarify/specify the appropriate diagnosis supported in the clinical indicators below. [[Anemia due to Hematuria]] Other (explain) Clinically unable to determine (explain) Clinical Indicators/Risk Factors/Treatment: S/p left PCN tube placement and percutaneous biopsy of bladder mass with Interventional Radiology 02/18/2022. - PN, 5-[address] David 02/07/22 09:26 -Hemoglobin: 9.6 Admit to Inpatient Order from Outpatient: 5-3 @ 1259 02/19/22 09:34 - 02/20/22 03:30 -Hemoglobin: 7.8 > 7.4 > 8.1 PN, 5-[address] David: Hemoglobin: 8.1 < Transfusion 1 unit pRBC < 7.4 < 7.9 < 9.6 (pre-procedure) Exam: neph tube draining merlot red urine, urine in hayward catheter merlot red Kept inpatient due to decreased hemoglobin and hematuria. Please contact me if you have questions. Thank you, LAURA Iniguez, RN, ENAN, MAGDALENAS, CCS, CRC Clinical Documentation Roller Print Tender Query created by: LAURA Iniguez, RN, CPN, CCDS, CCS, CRC 02/20/2022 08:21 AM CDT </LCI> ACP (Advance Care Planning) - Judy Schumacher M.D., M.S. - 02/20/2022 1:39 PM CDT Advance Care Planning This goals of care conversation involved the following parties: Patient participation: unable to participate, reported delirium Patient medical decision makers: and son at bedside The primary urology team discussed medical considerations for urgent surgery with the Medicine Consult team this afternoon. 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 Medical optimization prior to surgery is not strongly indicated at this time as his volume status appears compensated by clinical and objective assessment. I laid eyes on patient to evaluate what appears to be his baseline volume status (no increase in O2,no significant lower extremity edema, no significant orthopnea). Elevated JVP with known tricuspid valve regurgitation. No indication for optimization of volume status prior to urgent surgery - particularly with significant blood loss anemia and ongoing bleeding. Patient was asleep and unable to participate in our encounter; and son were at bedside. Offered compassionate informed consent of his severe systemic illness in the setting of an ongoing bleed refractory to medical management and the associated medical risk associated with general anesthesia. With the understanding of his ongoing severe systemic illness, offered a framework for risk and benefit discussions with surgical team and encouraged evaluation of all surgical and non surgical options. Therapies offered may be fewer in patient's with unstable illnesses (I.e. friable malignancy with medically refractory blood loss) and may seem overwhelming and challenging to comprehend. Encouraged patient's and son (surrogate medical decision makers) to view this conversation through the le ns of patient personal and quality of life preference rather than medically necessary lens that may be implied by various treatment options. offered that fortunately herself and son were able to have detailed conversations RE medical treatment and quality of life preferences with patient when he was able to participate in discussions with more clarity. On behalf of the patient's previously discussed care preferences - patient's surrogate decision makers stated the followin. DNR/DNI 2. No escalation to ICU cares; if illness becomes critical and unsustainable on general care floors - prefer to forgo ICU for life sustaining measures and optimize time being well and not sick 3. If patient did undergo surgery and was unable to be extubated beyond expected operative course, preference to compassionately extubate Updated urology team. ?? Encourage informed surgical consent be provided + discussions of all treatment options and - if none ideally aligned with patient preferences - reasonable palliative outpatient options. ?? Recommend ongoing discussions RE patient preferences per surgical team through hospital course. ?? Recommend considering epidural vs general anesthesia with anesthesiology team given known heart failure and if this may optimize intraoperative or post- surgical outcomes. ?? Update code status to DNR/DNI We appreciate the opportunity to facilitate care for this patient in challenging illness circumstance and offer framework and guidance for his medical decision making surrogates . Please do not hesitate to contact the medicine consult service if a medicine question arises through his hospital course [phone]. Judy Schumacher MD MS Internal Medicine, PGY3 General Internal Medicine Consults [phone] Hospital Course - Nura David IV, M.D. - 02/18/2022 7:28 AM CDT PROCEDURE: Patient underwent LEFT nephrostomy tube placement and percutaneous bladder mass biopsy with Interventional Radiology in an uncomplicated fashion. HOSPITAL COURSE: S/p left PCN tube placement and percutaneous biopsy of bladder mass with Interventional Radiology 02/18/2022. Path HG T1, muscle present and uninvolved. 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 Kept inpatient due to decreased hemoglobin and hematuria. 5/ Blood transfusion given and CBI started. / significant clot burden irrigated from catheter. Hb remained stable. 02/21 Hb down to 7.1 from 8.8. Transfused. Otherwise stable. Evaluated by Medicine and Cardiology with conclusion being that patient is high- risk surgical candidate due to cardiovascular comorbidities. Patient and family would like to take as conservative approach as possible in terms of avoiding surgery if at all possible. Have expressed desire for DNR/DNI. Fortunately, we were able to wean off CBI on 02/22 without need for further intervention. Patient unable to void spontaneously, so dismissed with indwelling catheter. DISCHARGE EXAM: General: resting comfortably in bed, Alert and oriented x 3 Heart: regular rate Lung: normal respiratory rate; not in respiratory distress Abd: soft, non distended, non tender : left nephrostomy tube draining clear yellow urine. Hayward catheter draining peach clear urine Extremities: warm, well perfused Neuro: no gross deficits DISCHARGE LABS: Hb 7.6 stable Cr 1.3 documented in this encounter Plan of Treatment Upcoming Encounters Date Type Specialty Care Team Description 08/20/2022 Appointment Radiology Claude Loaiza MPAS, P.A.-C. [address] [place] [address] [phone] (Wo rk) 08/20/2022 Appointment Radiology Claude Loaiza MPAS, P.A.-C. [address] [place] [address] [phone] (Wo rk) 08/22/2022 Virtual Visit Urology Gibran Ruvalcaba M.D. [address] [place] [address] [phone] (Wo rk) Pending Results Name Type Priority Associated Diagnoses Date/Ti me Prepare Red Blood Blood Bank Routine 02/19/2022 3:33 PM CDT Cells, 1 Units Prepare Red Blood Blood Bank Routine 02/19/2022 3:33 PM CDT Cells, 1 Units Scheduled Orders Name Type Priority Associated Diagnoses Order S chedule URO Urethral cath Procedure Routine Retention Urinary Expec kathleen: 02/27/2022, removal & voiding Expires: 0 05/25/2023 trial (UCO/VT) Scheduled Referrals Name Type Priority Associated Diagnoses Order S chedule Urology office Outpatient Referral Routine Expect ed: visit (clinic) 02/27/2022, Expires: 05/25/2023 documented as of this encounter Procedures Procedure Name Priority Date/Time Associated Comments Diagnosis GLUCOSE POCT, B Routine 02/22/2022 4:35 Results f or this PM CDT procedure are i n the results section. GLUCOSE POCT, B Routine 02/22/2022 11:26 Results for this AM CDT procedure are i n the results section. GLUCOSE POCT, B Routine 02/22/2022 7:17 Results f or this AM CDT procedure are i n the results section. CBC WITHOUT Routine 02/22/2022 3:59 Results for this DIFFERENTIAL, B AM CDT procedure ar e in the results section. BASIC METABOLIC Routine 02/22/2022 3:59 Results f or this PANEL, S/P AM CDT procedure are i n the results section. GLUCOSE POCT, B Routine 02/21/2022 9:39 Results f or this PM CDT procedure are i n the results section. HEMOGLOBIN, B Timed 02/21/2022 6:21 Results for this PM CDT procedure are i n the results section. GLUCOSE POCT, B Routine 02/21/2022 5:09 Results f or this PM CDT procedure are i n the results section. US URINARY BLADDER RAD - Routine 02/21/2022 2:35 Resul ts for this (most inpatients PM CDT procedure a re in and all the results outpatients) section. HEMOGLOBIN, B Timed 02/21/2022 12:08 Results fo r this PM CDT procedure are i n the results section. GLUCOSE POCT, B Routine 02/21/2022 11:38 Results for this AM CDT procedure are i n the results section. (TTE) 2D ECHO Routine 02/21/2022 10:59 Results fo r this DOPPLER COLOR AND AM CDT procedure are in CONTRAST the results section. GLUCOSE POCT, B Routine 02/21/2022 8:58 Results f or this AM CDT procedure are i n the results section. ADULT OXYGEN Routine 02/21/2022 8:01 THERAPY AM CDT ADULT OXYGEN Routine 02/21/2022 8:01 THERAPY AM CDT TRANSFUSE RED BLOOD Routine 02/21/2022 6:10 CELLS AM CDT CBC WITHOUT Routine 02/21/2022 3:46 Results for this DIFFERENTIAL, B AM CDT procedure ar e in the results section. BASIC METABOLIC Routine 02/21/2022 3:46 Results f or this PANEL, S/P AM CDT procedure are i n the results section. ADULT OXYGEN Routine 02/20/2022 8:01 THERAPY PM CDT ADULT OXYGEN Routine 02/20/2022 8:01 THERAPY PM CDT SARS CORONAVIRUS 2, Routine 02/20/2022 7:39 Resul ts for this PCR RAPID, V PM CDT procedure are i n the results section. GLUCOSE POCT, B Routine 02/20/2022 7:12 Results f or this PM CDT procedure are i n the results section. GLUCOSE POCT, B Routine 02/20/2022 12:19 Results for this PM CDT procedure are i n the results section. HEPATIC FUNCTION Routine 02/20/2022 12:13 Results for this PANEL, S PM CDT procedure are i n the results section. PROTHROMBIN TIME Routine 02/20/2022 12:13 Results for this (PT), P PM CDT procedure are i n the results section. FIBRINOGEN, P Routine 02/20/2022 12:13 Results fo r this PM CDT procedure are i n the results section. HEMOGLOBIN, B Timed 02/20/2022 12:13 Results fo r this PM CDT procedure are i n the results section. GLUCOSE POCT, B Routine 02/20/2022 9:23 Results f or this AM CDT procedure are i n the results section. ADULT OXYGEN Routine 02/20/2022 8:02 THERAPY AM CDT ADULT OXYGEN Routine 02/20/2022 8:02 THERAPY AM CDT CBC WITHOUT Routine 02/20/2022 3:30 Results for this DIFFERENTIAL, B AM CDT procedure ar e in the results section. BASIC METABOLIC Routine 02/20/2022 3:30 Results f or this PANEL, S/P AM CDT procedure are i n the results section. GLUCOSE POCT, B Routine 02/19/2022 9:09 Results f or this PM CDT procedure are i n the results section. ADULT OXYGEN Routine 02/19/2022 8:01 THERAPY PM CDT ADULT OXYGEN Routine 02/19/2022 8:01 THERAPY PM CDT GLUCOSE POCT, B Routine 02/19/2022 5:10 Results f or this PM CDT procedure are i n the results section. TRANSFUSE RED BLOOD Routine 02/19/2022 5:08 CELLS PM CDT HEMOGLOBIN, B Timed 02/19/2022 3:33 Results for this PM CDT procedure are i n the results section. PREPARE RED BLOOD Routine 02/19/2022 3:33 CELLS PM CDT PREPARE RED BLOOD Routine 02/19/2022 3:33 CELLS PM CDT TYPE AND SCREEN Routine 02/19/2022 3:33 Results f or this PM CDT procedure are i n the results section. GLUCOSE POCT, B Routine 02/19/2022 11:21 Results for this AM CDT procedure are i n the results section. HEMOGLOBIN, B Timed 02/19/2022 9:34 Results for this AM CDT procedure are i n the results section. GLUCOSE POCT, B Routine 02/19/2022 8:06 Results f or this AM CDT procedure are i n the results section. CBC WITHOUT Routine 02/19/2022 3:33 Results for this DIFFERENTIAL, B AM CDT procedure ar e in the results section. BASIC METABOLIC Routine 02/19/2022 3:33 Results f or this PANEL, S/P AM CDT procedure are i n the results section. GLUCOSE POCT, B Routine 02/19/2022 1:44 Results f or this AM CDT procedure are i n the results section. ADULT OXYGEN Routine 02/18/2022 8:01 THERAPY PM CDT ADULT OXYGEN Routine 02/18/2022 8:01 THERAPY PM CDT GLUCOSE POCT, B Routine 02/18/2022 5:14 Results f or this PM CDT procedure are i n the results section. ECG STAT 02/18/2022 1:25 Results for this PM CDT procedure are i n the results section. ADULT OXYGEN Routine 02/18/2022 1:19 THERAPY PM CDT ADULT OXYGEN Routine 02/18/2022 1:19 THERAPY PM CDT GLUCOSE POCT, B Routine 02/18/2022 12:39 Results for this PM CDT procedure are i n the results section. CT ABDOMEN AND/OR RAD - Routine 02/18/2022 8:54 Mass Bladder Result s for this PELVIS BIOPSY (most inpatients AM CDT procedure are in and all the results outpatients) section. ADULT OXYGEN Routine 02/18/2022 8:01 THERAPY AM CDT CYTOLOGY FINE Timed 02/18/2022 8:00 Results for this NEEDLE ASPIRATION AM CDT procedure are in (INCLUDES CORE the results BIOPSIES section. ADULT OXYGEN Routine 02/18/2022 7:51 THERAPY AM CDT GLUCOSE POCT, B Routine 02/18/2022 7:25 Results f or this AM CDT procedure are i n the results section. documented in this encounter Results (ABNORMAL) Glucose, POCT (02/22/2022 4:35 PM CDT) Analysis Performed At Patho logist Time Signature Glucose, POCT, 196 (H) 70 - 140 02/22/2022 PCLX B mg/dL 4:37 PM CDT Site Capillary 02/22/2022 PCLX 4:37 PM CDT Last Intake 3-4 hours 02/22/2022 PCLX 4:37 PM CDT Specimen Anatomical Collection Method Collection Time Receive d Time (Source) Location / / Volume Laterality Blood 02/22/2022 4:35 PM 4:37 CDT PM CDT Unknown Provider LAB POCT ORDERABLES-MANUAL Performing Organization Address City/[facility] Phon e Number POC [facility] [address] [place] [address] [place] [address] [place] [facility] [address] (ABNORMAL) Glucose, POCT (02/22/2022 11:26 AM CDT) Analysis Performed At Patho logist Time Signature Glucose, POCT, 190 (H) 70 - 140 02/22/2022 PCLX B mg/dL 11:30 AM CDT Site Capillary 02/22/2022 PCLX 11:30 AM CDT Last Intake 3-4 hours 02/22/2022 PCLX 11:30 AM CDT Specimen Anatomical Collection Method Collection Time Receive d Time (Source) Location / / Volume Laterality Blood 02/22/2022 11:26 02/22/2022 AM CDT 11:30 AM CDT Unknown Provider LAB POCT ORDERABLES-MANUAL Performing Organization Address City/[facility] Phon e Number POC [facility] [address] [place] [address] [place] [address] [place] [facility] [address] Glucose, POCT (02/22/2022 7:17 AM CDT) Analysis Performed At Patho logist Time Signature Glucose, POCT, 125 70 - 140 02/22/2022 PCLX B mg/dL 7:19 AM CDT Site Capillary 02/22/2022 PCLX 7:19 AM CDT Last Intake 3-4 hours 02/22/2022 PCLX 7:19 AM CDT Specimen Anatomical Collection Method Collection Time Receive d Time (Source) Location / / Volume Laterality Blood 02/22/2022 7:17 AM 7:19 CDT AM CDT Unknown Provider LAB POCT ORDERABLES-MANUAL Performing Organization Address City/[facility] Phon e Number [facility] [address] [place] [address] [facility]CLX [facility] [place] [address] [facility] [address] [facility] (ABNORMAL) CBC without Differential (02/22/2022 3:59 AM CDT) Patholo gist Method Time Signature Hemoglobin 7.6 (L) 13.2 - 02/22/2022 DTL 16.6 g/dL 4:44 AM CDT Hematocrit 25.0 (L) 38.3 - 02/22/2022 DTL 48.6 % 4:44 AM CDT Erythrocytes 2.37 (L) 4.35 - 02/22/2022 DTL 5.65 4:44 AM CDT x10(12)/L MCV 105.5 (H) 78.2 - 02/22/2022 DTL 97.9 fL 4:44 AM CDT RBC Distrib Width 21.5 (H) 11.8 - 02/22/2022 DTL 14.5 % 4:44 AM CDT Platelet Count 304 135 - 317 02/22/2022 DTL x10(9)/L 4:44 AM CDT Leukocytes 9.5 3.4 - 9.6 02/22/2022 DTL x10(9)/L 4:44 AM CDT Specimen Anatomical Collection Method Collection Time Receive d Time (Source) Location / / Volume Laterality Blood (Blood, 02/22/2022 3:59 AM 02/23/20 4:30 Venous) CDT AM CDT Cori Reece M.D. LAB BLOOD ADD-ON Performing Organization Address City/State/ZIP Code Phon e Number [facility] - [address] [place], [place] [address] [facility] [place] [place] [address] [facility] [address] [facility] (ABNORMAL) Basic Metabolic Panel (02/22/2022 3:59 AM CDT) Analysis Performed At Patho logist Time Signature Potassium, S 4.6 3.6 - 5.2 02/22/2022 DTL mmol/L 5:02 AM CDT Sodium, S 137 135 - 145 02/22/2022 DTL mmol/L 5:02 AM CDT Chloride, S 101 98 - 107 02/22/2022 DTL mmol/L 5:02 AM CDT Bicarbonate, S 28 22 - 29 02/22/2022 DTL mmol/L 5:02 AM CDT Anion Gap 8 7 - 15 02/22/2022 DTL 5:02 AM CDT BUN (Blood Urea 29 (H) 8 - 24 02/22/2022 DTL Nitrogen), S mg/dL 5:02 AM CDT Creatinine 1.38 (H) 0.74 - 02/22/2022 DTL 1.35 mg/dL 5:02 AM CDT eGFR-Non 47 (L) >=60 02/22/2022 DTL Black/ mL/min/BSA 5:02 AM CDT Maltese Comment: ----ADDITIONAL INFORMATION---- Estimated GFR calculated using the 2009 CKD_EPI creatinine equation. eGFR-Black/ 54 (L) >=60 mL/min/BSA 2021 5:02 AM CDT DTL Comment: ----ADDITIONAL INFORMATION---- Estimated GFR calculated using the 2009 CKD_EPI creatinine equation. Calcium, Total, S 8.7 (L) 8.8 - 10.2 mg/dL 02/22/2022 5:02 AM CDT DTL Glucose, S 129 70 - 140 mg/dL 02/22/2022 5:02 AM CDT D TL Specimen Anatomical Collection Method Collection Time Receive d Time (Source) Location / / Volume Laterality Blood (Blood, 02/22/2022 3:59 AM 02/23/20 4:46 Venous) CDT AM CDT Cori Reece M.D. LAB BLOOD ADD-ON Performing Organization Address City/State/ZIP Code Phon e Number [facility] - [address] [place], [place] [address] [facility] [place] [address] [facility] [address] Glucose, POCT (02/21/2022 9:39 PM CDT) Analysis Performed At Patho logist Time Signature Glucose, POCT, 125 70 - 140 02/21/2022 PCLX B mg/dL 9:44 PM CDT Site Capillary 02/21/2022 PCLX 9:44 PM CDT Last Intake > 4 hours 02/21/2022 PCLX 9:44 PM CDT Specimen Anatomical Collection Method Collection Time Receive d Time (Source) Location / / Volume Laterality Blood 02/21/2022 9:39 PM 9:44 CDT PM CDT Unknown Provider LAB POCT ORDERABLES-MANUAL Performing Organization Address City/[facility] Phon e Number POC [facility] [address] [place] [address] PCLX [facility] [place] [address] [facility] [address] [facility] (ABNORMAL) Hemoglobin (02/21/2022 6:21 PM CDT) athologist Signature Hemoglobin 8.0 (L) 13.2 - 16.6 02/21/2022 DTL g/dL 6:38 PM CDT Specimen Anatomical Collection Method Collection Time Receive d Time (Source) Location / / Volume Laterality Blood (Blood, 02/21/2022 6:21 PM 02/22/20 6:32 Venous) CDT PM CDT Cori Reece M.D. LAB BLOOD ADD-ON Performing Organization Address City/[facility] Phon e Number [facility] - [address] [place] [address] [facility] [place] [address] [facility] [address] (ABNORMAL) Glucose, POCT (02/21/2022 5:09 PM CDT) Analysis Performed At Patho logist Time Signature Glucose, POCT, 205 (H) 70 - 140 02/21/2022 PCLX B mg/dL 5:18 PM CDT Site Capillary 02/21/2022 PCLX 5:18 PM CDT Last Intake 3-4 hours 02/21/2022 PCLX 5:18 PM CDT Specimen Anatomical Collection Method Collection Time Receive d Time (Source) Location / / Volume Laterality Blood 02/21/2022 5:09 PM 5:18 CDT PM CDT Unknown Provider LAB POCT ORDERABLES-MANUAL Performing Organization Address City/[facility]/ZIP Code Phon e Number POC [facility] [address] [place] [address] PCLX [facility] [place] [address] [place] POC [address] [facility] US Urinary Bladder (02/21/2022 2:35 PM CDT) Anatomical Region Laterality Modality Body, Ultrasound RST LOS, Ultrasound ARZ LOS, Ultrasound FLA Ultrasound LOS Specimen (Source) Anatomical Collection Method Collection Time Re ceived Time Location / / Volume Laterality 02/21/2022 3:01 PM CDT Impressions 02/21/2022 3:06 PM CDT A Hayward catheter has been placed. Small amount of avascular echogenic material dependently in the bladder posterior to the Hayward catheter, which likely represents clotted blood. Irregular wall thickening of the bladder most prominent posteriorly on the left consistent with patient's biopsy-proven urothelial carci noma. Narrative 02/21/2022 3:06 PM CDT EXAM: US URINARY BLADDER COMPARISON: CT 02/18/2022 Procedure Note Andrey Mercedes M.D. - 02/21/2022Format ting of this note might be different from the original. EXAM: US URINARY BLADDER COMPARISON: CT 02/18/2022 IMPRESSION: A Hayward catheter has been placed. Small amount of avascular echogenic material dependently in the bladder posterior to the Hayward catheter, which likely represents clotted blood. Irregular wall thickening of the bladder most prominent posteriorly on the left consistent with patient's biopsy-proven urothelial carci noma. Nura David IV, M.D. IMG US PROCEDURES (ABNORMAL) Hemoglobin (02/21/2022 12:08 PM CDT) P athologist Signature Hemoglobin 8.0 (L) 13.2 - 16.6 02/21/2022 DTL g/dL 12:54 PM CDT Specimen Anatomical Collection Method Collection Time Receive d Time (Source) Location / / Volume Laterality Blood (Blood, 02/21/2022 12:08 02/21/2022 Venous) PM CDT 12:45 PM CDT Cori Reece M.D. LAB BLOOD ADD-ON Performing Organization Address City/[facility]/ZIP Code Phon e Number [facility] - [address] [place], [place] [address] [facility] [place] [address] [facility] 200 [facility] (ABNORMAL) Glucose, POCT (02/21/2022 11:38 AM CDT) Analysis Performed At Patho logist Time Signature Glucose, POCT, 166 (H) 70 - 140 02/21/2022 PCLX B mg/dL 11:41 AM CDT Site Capillary 02/21/2022 PCLX 11:41 AM CDT Last Intake 3-4 hours 02/21/2022 PCLX 11:41 AM CDT Specimen Anatomical Collection Method Collection Time Receive d Time (Source) Location / / Volume Laterality Blood 02/21/2022 11:38 02/21/2022 AM CDT 11:41 AM CDT Unknown Provider LAB POCT ORDERABLES-MANUAL Performing Organization Address City/State/ZIP Code Phon e Number POC [facility] [address] [place] [address] PCLX [facility] [place] [address] [place] POC [address] [facility] (TTE) 2D ECHO DOPPLER COLOR AND CONTRAST (02/21/2022 10:59 AM CDT) Patholo gist Method Time Signature Ejection Fraction 25 MC CV EIMS LV Mass Index 131 MC CV EIMS LV End-Diastolic 69 MC CV EIMS Diameter LV End-Systolic 59 MC CV EIMS Diameter LV End-Diastolic 284 MC CV EIMS Volume LV End-Systolic 212 MC CV EIMS Volume MV E Velocity 1.10 MC CV EIMS MV e' Velocity 0.07 MC CV EIMS Medial MV e' Velocity 0.08 MC CV EIMS Lateral MV E/e' Medial 15.70 MC CV EIMS MV E/e' Lateral 13.80 MC CV EIMS Left ventricular 34 MC CV EIMS stroke volume index Cardiac Output 6.47 MC CV EIMS Cardiac Index 3.30 MC CV EIMS LV Interventricular 8 MC CV EIMS Septal Wall Thickness LV Posterior Wall 9 MC CV EIMS Thickness LV Relative Wall 26 MC CV EIMS Thickness TAPSE 22 MC CV EIMS TR Vmax 2.95 MC CV EIMS RA Pressure 15 MC CV EIMS RV Systolic Pressure 50 MC CV EIM S AV mean gradient 6 MC CV EIMS Aortic valve area 2.12 MC CV EIMS Aortic Valve 0.51 MC CV EIMS Dimensionless Index TV Regurgitant 68 MC CV EIMS Volume LA Volume Index 69 MC CV EIMS Aortic Valve 1.60 MC CV EIMS Systolic Peak Velocity Anatomical Region Laterality Modality Echocardiography Specimen (Source) Anatomical Collection Method Collection Time Re ceived Time Location / / Volume Laterality 02/21/2022 9:14 AM CDT Impressions 02/21/2022 4:17 PM CDT Intravenous Lumason ultrasound enhancement agent(s) administered to enhance endocardial border definition. LEFT VENTRICLE:Severely enlarged left ve ntricular chamber size. Prominent left ventricular trabeculation. Calculated 2-D biplane volumetric left ventricular ejection fraction 25%. Left ventricular cardi ac index 3.3 l/min/m2. Generalized left ventricular hypokinesis with regional variability. E levated left ventricular filling pressure. RIGHT VENTRICLE:Moderate-severely enlarg ed right ventricular chamber size. Mild- moderately reduced right ventricular systolic function. Estimated right ventricular systolic pressure 50 mmHg (right atria l pressure of 15 mmHg). Estimated pulmon anita artery mean pressure 36 mmHg assuming right atr ial pressure of 15 mmHg. ATRIA:Severely enlarged left atrial size . Left atrial volume index 69 ml/m2. Severely enlarged right atrial size by visual estimate. CARDIAC VALVES:Trileaflet aortic valve. Thickened aortic valve. No aortic valve regurgitation. Thickened mitral valve. Mild-moderate mitral valve regurgitation. Normal pulmonary valve. Trivial pulmonary valve regurgitation. Thickened tricuspi d valve. Severe tricuspid valve regurgitation. Tr icuspid regurgitant volume (PISA) 68 ml. Tricuspid regurgitation ERO (PISA) 0.79 cm2. OTHER ECHO FINDINGS:Enlarged inferior ve na cava size with reduced inspiratory collapse (<50%). Doppler evidence of systolic reversal in the hepatic veins. Abdominal aorta incompletely visualized. Nor mal abdominal aorta Doppler flow pattern . No atrial level shunt by color flow imaging. No in tracardiac mass or thrombus, but the left atrial appendage cannot be visualized adequately with transthoracic echo to exclude thrombus in this location. No ??claire cardial effusion. Attempts were made to optimize the echocardiographic images and two or more left ventricular segments were not visualized adequately to evaluate cardiac structure. The patient's current allergies and medications have been screened. Imaging enhancement agent administered per Echocardiography Contrast Administration Protocol Reference Document [id number]. Patient met an inclusion criterion and did not have contraindications in screening sections. LUNG FINDINGS:Lung ultrasound performed. Mild interstitial process (1-3 B- line(s) per zone) in both lungs. For the complete report, see the Order-L evel Documents. Narrative 02/21/2022 4:17 PM CDT For the complete report, see the Order-Level Documents. Final Impressions 1. Severely enlarged left ventricular ch aj size, generalized hypokinesis with regional variability, calculated 2-D biplane volumetric ejection fraction 25%. 2. Elevated left ventricular filling pre ssure. 3. Moderate-severely enlarged right vent ricular chamber size, mild-moderately reduced systolic function, estimated right ventricular systolic pressure 50 mmHg (right atrial pressure of 15 mmHg). 4. Severe tricuspid valve regurgitation, ERO (PISA) 0.79 cm2, regurgitant volume (PISA) 68 ml . Tricuspid annulus dilatation. There is also evidence of increased pulmonary vascular resistance. 5. No ??pericardial effusion. 6. Enlarged inferior vena cava size with reduced inspiratory collapse (<50%). Procedure Note Sharonda Aldana M.B.B.S. - 02/21/2022Forma tting of this note might be different from the original. For the complete report, see the Order-L evel Documents. Final Impressions 1. Severely enlarged left ventricular ch aj size, generalized hypokinesis with regional variability, calculated 2-D biplane volumetric ejection fraction 25%. 2. Elevated left ventricular filling pre ssure. 3. Moderate-severely enlarged right vent ricular chamber size, mild-moderately reduced systolic function, estimated right ventricular systolic pressure 50 mmHg (right atrial pressure of 15 mmHg). 4. Severe tricuspid valve regurgitation, ERO (PISA) 0.79 cm2, regurgitant volume (PISA) 68 ml . Tricuspid annulus dilatation. There is also evidence of increased pulmonary vascular resistance. 5. No pericardial effusion. 6. Enlarged inferior vena cava size with reduced inspiratory collapse (<50%). Findings Intravenous Lumason ultrasound enhanceme nt agent(s) administered to enhance endocardial border definition. LEFT VENTRICLE:Severely enlarged left ve ntricular chamber size. Prominent left ventricular trabeculation. Calculated 2-D biplane volumetric left ventricular ejection fraction 25%. Left ventricular cardiac index 3.3 l/min/m2. Generalized left ventricular h ypokinesis with regional variability. Elevated left ventricular filling pressure. RIGHT VENTRICLE:Moderate-severely enlarg ed right ventricular chamber size. Mild- moderately reduced right ventricular systolic function. Estimated right ventricular systolic pressure 50 mmHg (right atrial pressure of 15 mmHg). Estimated pulmonary artery mean p ressure 36 mmHg assuming right atrial pressure of 15 mmHg. ATRIA:Severely enlarged left atrial size . Left atrial volume index 69 ml/m2. Severely enlarged right atrial size by visual estimate. CARDIAC VALVES:Trileaflet aortic valve. Thickened aortic valve. No aortic valve regurgitation. Thickened mitral valve. Mild-moderate mitral valve regurgitation. Normal pulmonary valve. Trivial pulmonary valve regurgitation. Thickened tricuspid valve . Severe tricuspid valve regurgitation. Tricuspid regurgitant volume (PISA) 68 ml. Tricuspid regurgitation ERO (PISA) 0.79 cm2. OTHER ECHO FINDINGS:Enlarged inferior ve na cava size with reduced inspiratory collapse (<50%). Doppler evidence of systolic reversal in the hepatic veins. Abdominal aorta incompletely visualized. Normal abdominal aorta Doppler flow pattern. No atrial le negrita shunt by color flow imaging. No intracardiac mass or thrombus, but the left atrial appendage cannot be visualized adequately with transthoracic echo to exclude thrombus in this location. No pericardial effusion. Attem pts were made to optimize the echocardiographic images and two or more left ventricular segments were not visualized adequately to evaluate cardiac structure. The patient's current allergies and medications have b een screened. Imaging enhancement agent administered per Echocardiography Contrast Administration Protocol Reference Document [id number]. Patient met an inclusion criterion and did not have contraindications in screening sections. LUNG FINDINGS:Lung ultrasound performed. Mild interstitial process (1-3 B- line(s) per zone) in both lungs. For the complete report, see the Order-L evel Documents. Braden Gan M.D. CV ECHO PROCEDURES Transfuse Red Blood Cells : (02/21/2022 9:04 AM CDT) Nura David IV, M.D. BLOOD TRANSFUSION ORDERAB LES Transfuse Red Blood Cells : , 1 Units (02/21/2022 9:04 AM CDT) Nura David IV, M.D. BLOOD TRANSFUSION ORDERAB LES Glucose, POCT (02/21/2022 8:58 AM CDT) Analysis Performed At [facility] Time Signature Glucose, POCT, 119 70 - 140 02/21/2022 PCLX B mg/dL 9:08 AM CDT Site Capillary 02/21/2022 PCLX 9:08 AM CDT Last Intake > 4 hours 02/21/2022 PCLX 9:08 AM CDT Specimen Anatomical Collection Method Collection Time Receive d Time (Source) Location / / Volume Laterality Blood 02/21/2022 8:58 AM 9:08 CDT AM CDT Unknown Provider LAB POCT ORDERABLES-MANUAL Performing Organization Address City/State/ZIP Code Phon e Number POC [facility] [address] [place] [address] PCLX [facility] [place] [address] [place] POC [address] (ABNORMAL) Basic Metabolic Panel (02/21/2022 3:46 AM CDT) Analysis Performed At Patho logist Time Signature Potassium, S 4.8 3.6 - 5.2 02/21/2022 DTL mmol/L 5:14 AM CDT Sodium, S 135 135 - 145 02/21/2022 DTL mmol/L 5:14 AM CDT Chloride, S 98 98 - 107 02/21/2022 DTL mmol/L 5:14 AM CDT Bicarbonate, S 27 22 - 29 02/21/2022 DTL mmol/L 5:14 AM CDT Anion Gap 10 7 - 15 02/21/2022 DTL 5:14 AM CDT BUN (Blood Urea 36 (H) 8 - 24 02/21/2022 DTL Nitrogen), S mg/dL 5:14 AM CDT Creatinine 1.42 (H) 0.74 - 02/21/2022 DTL 1.35 mg/dL 5:14 AM CDT eGFR-Non 45 (L) >=60 02/21/2022 DTL Black/ mL/min/BSA 5:14 AM CDT Maltese Comment: ----ADDITIONAL INFORMATION---- Estimated GFR calculated using the 2009 CKD_EPI creatinine equation. eGFR-Black/ 52 (L) >=60 mL/min/BSA 2021 5:14 AM CDT DTL Comment: ----ADDITIONAL INFORMATION---- Estimated GFR calculated using the 2009 CKD_EPI creatinine equation. Calcium, Total, S 8.9 8.8 - 10.2 mg/dL 02/21/2022 5:14 AM CDT DTL Glucose, S 97 70 - 140 mg/dL 02/21/2022 5:14 AM CDT D TL Specimen Anatomical Collection Method Collection Time Receive d Time (Source) Location / / Volume Laterality Blood (Blood, 02/21/2022 3:46 AM 02/22/20 4:53 Venous) CDT AM CDT Nura David IV, M.D. LAB BLOOD ADD-ON Performing Organization Address City/[facility] Phon e Number [facility] - [address] [place], [place] [address] [facility] [place] [address] [facility] [address] [facility] (ABNORMAL) CBC without Differential (02/21/2022 3:46 AM CDT) [facility] Method Time Signature Hemoglobin 7.1 (L) 13.2 - 02/21/2022 DTL 16.6 g/dL 4:50 AM CDT Hematocrit 23.4 (L) 38.3 - 02/21/2022 DTL 48.6 % 4:50 AM CDT Erythrocytes 2.20 (L) 4.35 - 02/21/2022 DTL 5.65 4:50 AM CDT x10(12)/L MCV 106.4 (H) 78.2 - 02/21/2022 DTL 97.9 fL 4:50 AM CDT RBC Distrib Width 21.7 (H) 11.8 - 02/21/2022 DTL 14.5 % 4:50 AM CDT Platelet Count 366 (H) 135 - 317 02/21/2022 DTL x10(9)/L 4:50 AM CDT Leukocytes 10.4 (H) 3.4 - 9.6 02/21/2022 DTL x10(9)/L 4:50 AM CDT Specimen Anatomical Collection Method Collection Time Receive d Time (Source) Location / / Volume Laterality Blood (Blood, 02/21/2022 3:46 AM 02/22/20 4:40 Venous) CDT AM CDT Nura David IV, M.D. LAB BLOOD ADD-ON Performing Organization Address City/[facility] Phon e Number [facility] - [address] [place], [place] [address] [facility] [place] [id number] [place], [place] [address] [address] [facility] SARS Coronavirus 2, PCR Rapid, V (02/20/2022 7:39 PM CDT) [facility] gist Method Time Signature SARS CoV-2, Undetected Undetected 02/20/2022 [facility] PCR, Rapid, V 8:04 PM CDT Comment: ----ADDITIONAL INFORMATION---- This RT-PCR test was performed using the Simran SARS-CoV-2 and Influenza A/B Reagent assay from [employer], which has received Emergency Use Authori zation(EUA) by the U.S. Food and Drug Administration . Fact sheets for this Emergency Use Autho rization (EUA) assay can be found at the following link s: For Healthcare Providers: https://www.fda.gov/media/799414/downloa d For Patients: https://www.fda.gov/media/470027/downloa d SARS Coronavirus 2, Source, Rapid Swab, Nasopharynx 02/20/2022 7:39 PM CDT [facility] Comment: REVISED RESULTS Specimen Anatomical Collection Method Collection Time Receive d Time (Source) Location / / Volume Laterality Varies 02/20/2022 7:39 PM 7:39 CDT PM CDT Nura David IV, M.D. LAB MICROBIOLOGY - GENERA L ORDERABLES Performing Organization Address City/State/ZIP Code Phon e Number [facility] - [address] [place] [address] [place] [address] [facility] [place] [address] [facility] Glucose, POCT (02/20/2022 7:12 PM CDT) Analysis Performed At Path logist Time Signature Glucose, POCT, 93 70 - 140 02/20/2022 PCLX B mg/dL 7:28 PM CDT Site Capillary 02/20/2022 PCLX 7:28 PM CDT Last Intake > 4 hours 02/20/2022 PCLX 7:28 PM CDT Specimen Anatomical Collection Method Collection Time Receive d Time (Source) Location / / Volume Laterality Blood 02/20/2022 7:12 PM 7:28 CDT PM CDT Unknown Provider LAB POCT ORDERABLES-MANUAL Performing Organization Address City/State/ZIP [facility] Phon e Number POC [facility] [address] [place] [address] [place] [address] [place] P[facility] [address] [facility] (ABNORMAL) Glucose, POCT (02/20/2022 12:19 PM CDT) Analysis Performed At Patho logist Time Signature Glucose, POCT, 186 (H) 70 - 140 02/20/2022 PCLX B mg/dL 12:24 PM CDT Site Capillary 02/20/2022 PCLX 12:24 PM CDT Last Intake 2-3 hours 02/20/2022 PCLX 12:24 PM CDT Specimen Anatomical Collection Method Collection Time Receive d Time (Source) Location / / Volume Laterality Blood 02/20/2022 12:19 02/20/2022 PM CDT 12:24 PM CDT Unknown Provider LAB POCT ORDERABLES-MANUAL Performing Organization Address [facility]/ZIP [facility] Phon e Number [facility] [address] [place] [address] [place] [address] [place] P[place] [address] [facility] Fibrinogen (02/20/2022 12:13 PM CDT) P athologist Signature Fibrinogen, P 287 200 - 393 02/20/2022 DTL mg/dL 1:24 PM CDT Specimen Anatomical Collection Method Collection Time Receive d Time (Source) Location / / Volume Laterality Blood (Blood, 02/20/2022 12:13 02/20/2022 Venous) PM CDT 12:42 PM CDT Nura David IV, M.D. LAB BLOOD ADD-ON Performing Organization Address City/State/ZIP Code Phon e Number [facility] - [address] [place], [place] [address] [facility] [place] [place] [address] [facility] [place] [address] (ABNORMAL) Prothrombin Time (PT) (02/20/2022 12:13 PM CDT) Patholo gist Method Time Signature Prothrombin 15.4 (H) 9.4 - 12.5 02/20/2022 DTL Time, P sec 1:24 PM CDT INR 1.4 0.9 - 1.1 02/20/2022 DTL 1:24 PM CDT Comment: ----ADDITIONAL INFORMATION---- Standard intensity warfarin therapeutic range: 2.0 to 3.0 ?? High intensity warfarin therapeutic rang e: 2.5 to 3.5 Specimen Anatomical Collection Method Collection Time Receive d Time (Source) Location / / Volume Laterality Blood (Blood, 02/20/2022 12:13 02/20/2022 Venous) PM CDT 12:42 PM CDT Nura David IV, M.D. LAB BLOOD ADD-ON Performing Organization Address City/[facility] Phon e Number [facility] - [address] [place], [place] [address] [facility] [place] [address] (ABNORMAL) Hepatic Function Panel (02/20/2022 12:13 PM CDT) [facility] Method Time Signature Bilirubin, Total, S 1.1 <=1.2 02/20/2022 DTL mg/dL 1:06 PM CDT Bilirubin, Direct, S 0.4 (H) 0.0 - 0.3 02/20/2022 DTL mg/dL 1:06 PM CDT Aspartate 14 8 - 48 02/20/2022 DTL Aminotransferase U/L 1:06 PM CDT (AST), S Alanine 16 7 - 55 02/20/2022 DTL Aminotransferase U/L 1:06 PM CDT (ALT), S Alkaline 124 40 - 129 02/20/2022 DTL Phosphatase, S U/L 1:06 PM CDT Albumin, S 4.1 3.5 - 5.0 02/20/2022 DTL g/dL 1:06 PM CDT Protein, Total, S 6.6 6.3 - 7.9 02/20/2022 DTL g/dL 1:06 PM CDT Specimen Anatomical Collection Method Collection Time Receive d Time (Source) Location / / Volume Laterality Blood (Blood, 02/20/2022 12:13 02/20/2022 Venous) PM CDT 12:49 PM CDT Nura David IV, M.D. LAB BLOOD ADD-ON Performing Organization Address City/[facility] Code Phon e Number [facility] - [address] [place], [place] [address] [place] [id number] [place] [address] [address] [facility] (ABNORMAL) Hemoglobin (02/20/2022 12:13 PM CDT) P athologist Signature Hemoglobin 8.8 (L) 13.2 - 16.6 02/20/2022 DTL g/dL 12:56 PM CDT Specimen Anatomical Collection Method Collection Time Receive d Time (Source) Location / / Volume Laterality Blood (Blood, 02/20/2022 12:13 02/20/2022 Venous) PM CDT 12:43 PM CDT Nura David IV, M.D. LAB BLOOD ADD-ON Performing Organization Address City/[facility] Code Phon e Number [facility] - [id number] [place] [address] 200 [facility] (ABNORMAL) Glucose, POCT (02/20/2022 9:23 AM CDT) Analysis Performed At Patho logist Time Signature Glucose, POCT, 193 (H) 70 - 140 02/20/2022 PCLX B mg/dL 9:26 AM CDT Site Capillary 02/20/2022 PCLX 9:26 AM CDT Last Intake 1-2 hours 02/20/2022 PCLX 9:26 AM CDT Specimen Anatomical Collection Method Collection Time Receive d Time (Source) Location / / Volume Laterality Blood 02/20/2022 9:23 AM 9:26 CDT AM CDT Unknown Provider LAB POCT ORDERABLES-MANUAL Performing Organization Address City/[facility] Phon e Number [facility] [address] [place] [address] [place] [address] [place] [facility] [address] [place] [address] (ABNORMAL) Basic Metabolic Panel (02/20/2022 3:30 AM CDT) athologist Signature Potassium, S 4.8 3.6 - 5.2 02/20/2022 DTL mmol/L 4:50 AM CDT Sodium, S 136 135 - 145 02/20/2022 DTL mmol/L 4:50 AM CDT Chloride, S 99 98 - 107 02/20/2022 DTL mmol/L 4:50 AM CDT Bicarbonate, S 25 22 - 29 02/20/2022 DTL mmol/L 4:50 AM CDT Anion Gap 12 7 - 15 02/20/2022 DTL 4:50 AM CDT BUN (Blood Urea 38 (H) 8 - 24 02/20/2022 DTL Nitrogen), S mg/dL 4:50 AM CDT Creatinine 1.35 0.74 - 02/20/2022 DTL 1.35 mg/dL 4:50 AM CDT eGFR-Non 48 (L) >=60 02/20/2022 DTL Black/ mL/min/BSA 4:50 AM CDT M[place]ese Comment: ----ADDITIONAL INFORMATION---- Estimated GFR calculated using the 2009 CKD_EPI creatinine equation. eGFR-Black/ 55 (L) >=60 mL/min/BSA 2021 4:50 AM CDT DTL Comment: ----ADDITIONAL INFORMATION---- Estimated GFR calculated using the 2009 CKD_EPI creatinine equation. Calcium, Total, S 8.9 8.8 - 10.2 mg/dL 02/20/2022 4:50 AM CDT DTL Glucose, S 131 70 - 140 mg/dL 02/20/2022 4:50 AM CDT D TL Specimen Anatomical Collection Method Collection Time Receive d Time (Source) Location / / Volume Laterality Blood (Blood, 02/20/2022 3:30 AM 02/21/20 4:35 Venous) CDT AM CDT Nura David IV, M.D. LAB BLOOD ADD-ON Performing Organization Address City/State/ZIP Code Phon e Number [facility] - [address] [place], [place] [address] [facility] [place] [address] Laboratories-[facility] [place] [address] (ABNORMAL) CBC without Differential (02/20/2022 3:30 AM CDT) [facility] Method Time Signature Hemoglobin 8.1 (L) 13.2 - 02/20/2022 DTL 16.6 g/dL 4:22 AM CDT Hematocrit 25.7 (L) 38.3 - 02/20/2022 DTL 48.6 % 4:22 AM CDT Erythrocytes 2.51 (L) 4.35 - 02/20/2022 DTL 5.65 4:22 AM CDT x10(12)/L MCV 102.4 (H) 78.2 - 02/20/2022 DTL 97.9 fL 4:22 AM CDT RBC Distrib Width 21.8 (H) 11.8 - 02/20/2022 DTL 14.5 % 4:22 AM CDT Platelet Count 428 (H) 135 - 317 02/20/2022 DTL x10(9)/L 4:22 AM CDT Leukocytes 11.7 (H) 3.4 - 9.6 02/20/2022 DTL x10(9)/L 4:22 AM CDT Specimen Anatomical Collection Method Collection Time Receive d Time (Source) Location / / Volume Laterality Blood (Blood, 02/20/2022 3:30 AM 02/21/20 4:15 Venous) CDT AM CDT Nura David IV, M.D. LAB BLOOD ADD-ON Performing Organization Address City/State/[facility] Code Phon e Number [facility] - [address] [place], [place] [address] [facility] [place] [address] [facility] [place] [address] [facility] Transfuse Red Blood Cells : (02/19/2022 9:29 PM CDT) Nura David IV, M.D. BLOOD TRANSFUSION ORDERAB LES Transfuse Red Blood Cells : , 1 Units (02/19/2022 9:29 PM CDT) Nura David IV, M.D. BLOOD TRANSFUSION ORDERAB LES (ABNORMAL) Glucose, POCT (02/19/2022 9:09 PM CDT) Analysis Performed At Patho logist Time Signature Glucose, POCT, 195 (H) 70 - 140 02/19/2022 PCLX B mg/dL 9:13 PM CDT Site Capillary 02/19/2022 PCLX 9:13 PM CDT Last Intake 2-3 hours 02/19/2022 PCLX 9:13 PM CDT Specimen Anatomical Collection Method Collection Time Receive d Time (Source) Location / / Volume Laterality Blood 02/19/2022 9:09 PM 9:13 CDT PM CDT Unknown Provider LAB POCT ORDERABLES-MANUAL Performing Organization Address City/[facility]/ZIP Code Phon e Number POC [facility] [address] [place] [address] PCLX [facility] [place] [address] [place] P[place] [address] [facility] (ABNORMAL) Glucose, POCT (02/19/2022 5:10 PM CDT) Analysis Performed At Patho logist Time Signature Glucose, POCT, 176 (H) 70 - 140 02/19/2022 PCLX B mg/dL 5:13 PM CDT Site Capillary 02/19/2022 PCLX 5:13 PM CDT Last Intake 2-3 hours 02/19/2022 PCLX 5:13 PM CDT Specimen Anatomical Collection Method Collection Time Receive d Time (Source) Location / / Volume Laterality Blood 02/19/2022 5:10 PM 2 5:13 CDT PM CDT Unknown Provider LAB POCT ORDERABLES-MANUAL Performing Organization Address City/[facility] Phon e Number [facility] [address] [place] [address] [place] [address] [place] POC [address] [facility] (ABNORMAL) Hemoglobin (02/19/2022 3:33 PM CDT) P athologist Signature Hemoglobin 7.4 (L) 13.2 - 16.6 02/19/2022 DTL g/dL 4:29 PM CDT Specimen Anatomical Collection Method Collection Time Receive d Time (Source) Location / / Volume Laterality Blood (Blood, 02/19/2022 3:33 PM 02/20/20 22 4:18 Venous) CDT PM CDT Nura David IV, M.D. LAB BLOOD ADD-ON Performing Organization Address City/State/ZIP Code Phon e Number [facility] - [address] [place], [place] [address] [facility] [place] [address] [facility] [place] [address] [facility] Type and Screen (with reflex Antibody ID) (02/19/2022 3:33 PM CDT) Patholo gist Method Time Signature ABORh A Pos Not 02/19/2022 STRM applicable 4:20 PM CDT Antibody Negative Negative 02/19/2022 STRM Screen 4:38 PM CDT Type & Screen 02/22/2022 02/19/2022 STRM Expiration 23:59 4:20 PM CDT Testing Lynne DEFAULT 02/19/2022 STRM Location 3:47 PM CDT Specimen Anatomical Collection Method Collection Time Receive d Time (Source) Location / / Volume Laterality Blood (Blood, 02/19/2022 3:33 PM 02/20/20 3:47 Venous) CDT PM CDT Nura David IV, M.D. LAB BLOOD BANK TEST ORDER RAFFY Performing Organization Address City/[facility]/ZIP [facility] Phon e Number [facility] - [address] [place], [place] [address] [facility] [place] [place] [address] [facility] [address] (ABNORMAL) Glucose, POCT (02/19/2022 11:21 AM CDT) Analysis Performed At Patho logist Time Signature Glucose, POCT, 211 (H) 70 - 140 02/19/2022 PCLX B mg/dL 11:24 AM CDT Site Capillary 02/19/2022 PCLX 11:24 AM CDT Last Intake 2-3 hours 02/19/2022 PCLX 11:24 AM CDT Specimen Anatomical Collection Method Collection Time Receive d Time (Source) Location / / Volume Laterality Blood 02/19/2022 11:21 02/19/2022 AM CDT 11:25 AM CDT Unknown Provider LAB POCT ORDERABLES-MANUAL Performing Organization Address City/[facility]/ZIP [facility] Phon e Number POC [facility] [address] [place] [address] [place] [address] [place] P[place] [address] (ABNORMAL) Hemoglobin (02/19/2022 9:34 AM CDT) P athologist Signature Hemoglobin 7.8 (L) 13.2 - 16.6 02/19/2022 DTL g/dL 11:01 AM CDT Specimen Anatomical Collection Method Collection Time Receive d Time (Source) Location / / Volume Laterality Blood (Blood, 02/19/2022 9:34 AM 02/20/20 22 Venous) CDT 10:00 AM CDT Nura David IV, M.D. LAB BLOOD ADD-ON Performing Organization Address City/[facility]/ZIP Code Phon e Number [facility] - [address] [place], [place] [address] [facility] [place] [address] [facility] [place] [address] [facility] (ABNORMAL) Glucose, POCT (02/19/2022 8:06 AM CDT) Analysis Performed At Patho logist Time Signature Glucose, POCT, 224 (H) 70 - 140 02/19/2022 PCLX B mg/dL 8:10 AM CDT Site Capillary 02/19/2022 PCLX 8:10 AM CDT Last Intake <1 hour 02/19/2022 PCLX 8:10 AM CDT Specimen Anatomical Collection Method Collection Time Receive d Time (Source) Location / / Volume Laterality Blood 02/19/2022 8:06 AM 8:10 CDT AM CDT Unknown Provider LAB POCT ORDERABLES-MANUAL Performing Organization Address [facility] Phon e Number POC [facility] [address] [place] [address] [place] [address] [place] P[place] [address] [facility] (ABNORMAL) CBC without Differential (02/19/2022 3:33 AM CDT) Patholo gist Method Time Signature Hemoglobin 7.9 (L) 13.2 - 02/19/2022 DTL 16.6 g/dL 4:05 AM CDT Hematocrit 27.2 (L) 38.3 - 02/19/2022 DTL 48.6 % 4:05 AM CDT Erythrocytes 2.54 (L) 4.35 - 02/19/2022 DTL 5.65 4:05 AM CDT x10(12)/L MCV 107.1 (H) 78.2 - 02/19/2022 DTL 97.9 fL 4:05 AM CDT RBC Distrib Width 20.6 (H) 11.8 - 02/19/2022 DTL 14.5 % 4:05 AM CDT Platelet Count 434 (H) 135 - 317 02/19/2022 DTL x10(9)/L 4:05 AM CDT Leukocytes 9.3 3.4 - 9.6 02/19/2022 DTL x10(9)/L 4:05 AM CDT Specimen Anatomical Collection Method Collection Time Receive d Time (Source) Location / / Volume Laterality Blood (Blood, 02/19/2022 3:33 AM 02/20/20 3:59 Venous) CDT AM CDT Cori Reece M.D. LAB BLOOD ADD-ON Performing Organization Address City/State/ZIP Code Phon e Number [facility] - [address] [place], [place] [address] [facility] [place] [address] [facility] [place] [address] (ABNORMAL) Basic Metabolic Panel (02/19/2022 3:33 AM CDT) P athologist Signature Potassium, S 4.6 3.6 - 5.2 02/19/2022 DTL mmol/L 4:30 AM CDT Sodium, S 138 135 - 145 02/19/2022 DTL mmol/L 4:30 AM CDT Chloride, S 103 98 - 107 02/19/2022 DTL mmol/L 4:30 AM CDT Bicarbonate, S 28 22 - 29 02/19/2022 DTL mmol/L 4:30 AM CDT Anion Gap 7 7 - 15 02/19/2022 DTL 4:30 AM CDT BUN (Blood Urea 39 (H) 8 - 24 02/19/2022 DTL Nitrogen), S mg/dL 4:30 AM CDT Creatinine 1.25 0.74 - 02/19/2022 DTL 1.35 mg/dL 4:30 AM CDT eGFR-Non 53 (L) >=60 02/19/2022 DTL Black/ mL/min/BSA 4:30 AM CDT Maltese Comment: ----ADDITIONAL INFORMATION---- Estimated GFR calculated using the 2009 CKD_EPI creatinine equation. eGFR-Black/ 61 >=60 mL/min/BSA 2021 4:30 AM CDT DTL Comment: ----ADDITIONAL INFORMATION---- Estimated GFR calculated using the 2009 CKD_EPI creatinine equation. Calcium, Total, S 8.9 8.8 - 10.2 mg/dL 02/19/2022 4:30 AM CDT DTL Glucose, S 145 (H) 70 - 140 mg/dL 02/19/2022 4:30 AM CDT D TL Specimen Anatomical Collection Method Collection Time Receive d Time (Source) Location / / Volume Laterality Blood (Blood, 02/19/2022 3:33 AM 02/20/20 4:14 Venous) CDT AM CDT Cori Reece M.D. LAB BLOOD ADD-ON Performing Organization Address City/[facility] Phon e Number [facility] - [address] [place], [place] [address] [facility] [place] [address] [facility] [address] [facility] (ABNORMAL) Glucose, POCT (02/19/2022 1:44 AM CDT) Analysis Performed At Patho logist Time Signature Glucose, POCT, 157 (H) 70 - 140 02/19/2022 PCLX B mg/dL 1:50 AM CDT Site Capillary 02/19/2022 PCLX 1:50 AM CDT Specimen Anatomical Collection Method Collection Time Receive d Time (Source) Location / / Volume Laterality Blood 02/19/2022 1:44 AM 2 1:51 CDT AM CDT Unknown Provider LAB POCT ORDERABLES-MANUAL Performing Organization Address [facility] Phon e Number POC [facility] [address] [place] [address] [place] [address] [place] [address] [facility] (ABNORMAL) Glucose, POCT (02/18/2022 5:14 PM CDT) Analysis Performed At Patho logist Time Signature Glucose, POCT, 165 (H) 70 - 140 02/18/2022 PCLX B mg/dL 5:20 PM CDT Site Capillary 02/18/2022 PCLX 5:20 PM CDT Last Intake 2-3 hours 02/18/2022 PCLX 5:20 PM CDT Specimen Anatomical Collection Method Collection Time Receive d Time (Source) Location / / Volume Laterality Blood 02/18/2022 5:14 PM 2 5:20 CDT PM CDT Unknown Provider LAB POCT ORDERABLES-MANUAL Performing Organization Address City/[facility] Phon e Number POC [facility] [address] [place] [address] [place] [address] [place] [facility] [address] ECG 12 Lead (02/18/2022 1:25 PM CDT) P athologist Signature Ventricular Rate 69 BPM MUSE ECG/Min FL Interval 168 ms MUSE QRSD Interval 102 ms MUSE QT Interval 454 ms MUSE QTC Interval 486 ms MUSE P [place] 71 degrees MUSE R [place] -8 degrees MUSE T Wave [place] 97 degrees MUSE Specimen Anatomical Collection Method Collection Time Receive d Time (Source) Location / / Volume Laterality 02/18/2022 1:25 PM 1:29 CDT PM CDT Impressions MUSE - 02/18/2022 1:29 PM CDT Sinus rhythm Premature ventricular complexes Nonspecific T wave abnormality Prolonged QT When compared with ECG of 14-JAN-2022 19 :39, Vent. rate has decreased BY ??37 BPM Premature ventricular complexes are no l onger in a series Reviewed by VENKATESH Davalos Narrative This result has an attachment that is no t available. Procedure Note Wade Winston M.D. - 02/18/2022Formatt ing of this note might be different from the original. IMPRESSION: Sinus rhythm Premature ventricular complexes Nonspecific T wave abnormality Prolonged QT When compared with ECG of 14-JAN-2022 19 :39, Vent. rate has decreased BY 37 BPM Premature ventricular complexes are no l onger in a series Reviewed by VENKATESH Davalos Cori Reece M.D. ECG ORDERABLES Performing Organization Address City/State/ZIP Code Phon e Number MUSE MUSE NA Glucose, POCT (02/18/2022 12:39 PM CDT) Analysis Performed At Patho logist Time Signature Glucose, POCT, 117 70 - 140 02/18/2022 PCLX B mg/dL 12:58 PM CDT Site Capillary 02/18/2022 PCLX 12:58 PM CDT Specimen Anatomical Collection Method Collection Time Receive d Time (Source) Location / / Volume Laterality Blood 02/18/2022 12:39 02/18/2022 PM CDT 12:59 PM CDT Unknown Provider LAB POCT ORDERABLES-MANUAL Performing Organization Address City/State/ZIP Code Phon e Number POC [facility] [address] [place] [address] [place] [address] [facility] [address] Abdomen and/or Pelvis Biopsy (02/18/2022 8:54 AM CDT) Anatomical Region Laterality Modality Abdomen, Pelvis, Abdominal RST LOS, Comp uted Tomography, Computed Vascular Interventional ARZ LOS, Tomogra phy Procedure FLA LOS, Abdominal FLA LOS, Procedural Specimen (Source) Anatomical Collection Method Collection Time Re ceived Time Location / / Volume Laterality 02/18/2022 9:11 AM CDT Impressions 02/18/2022 10:[address]-guided left bladder mass biopsy. EP Narrative 02/18/2022 10:29 AM CDT EXAM: CT ABDOMEN AND/OR PELVIS BIOPSY PRE-PROCEDURE: Patient seen, evaluated, history reviewe d, and approved for sedation. Airway, heart, and lung exam satisfactory for sedation. Discussed ris ks, benefits, alternatives for procedure, and/or sedation. The roles and responsibilities of care t eam members, residents, and fellows were discussed. Patient understands information and questions an swered. Informed consent obtained from the patient. Immediately prior to starting the proced ure, in the presence of the assisting personnel, a procedural pause was conducted to verify correct patient identity and verification of procedure to be performed, and as applicable, correct side and site, correct patient position, availability of implants, special equipment, or special requirements, and all image and specimen identification data. INTRAPROCEDURE: Moderate sedation was ad ministered by sedation nurse under my supervision. The patient was continuously monitored with real time oxygen saturation, heart rate, ECG rhythm strip and blood pressure throughout administra tion of the sedation and performance of the procedure. The total intra-procedural sedation time was : 22 minutes. ?? TECHNIQUE: Sterile;1% lidocaine for loca l anesthesia and CT Guidance. The patient was prepared in the supine position. Utilizing coaxial t echnique, a 17-gauge introducer was carefully advanced to the target. 6 samples were taken utilhemanthi shereen an 18-gauge biopsy device. ?? TARGET LOCATION: Left bladder mass BIOPSY INSTRUMENT: intermediate Ba rd NUMBER OF SAMPLES OBTAINED: 6 COMPLICATION: None ? BLOOD LOSS: Minimal PATIENT INSTRUCTIONS: Patient may be dis missed from the radiology department when dismissal criteria met. POST-PROCEDURE DIAGNOSIS: Left bladder m ass Procedure Note Lindsey Ordaz M.D. - 02/18/2022Forma tting of this note might be different from the original. EXAM: CT ABDOMEN AND/OR PELVIS BIOPSY PRE-PROCEDURE: Patient seen, evaluated, history reviewe d, and approved for sedation. Airway, heart, and lung exam satisfactory for sedation. Discussed ris ks, benefits, alternatives for procedure, and/or sedation. The roles and responsibilities of care t eam members, residents, and fellows were discussed. Patient understands information and questions an swered. Informed consent obtained from the patient. Immediately prior to starting the proced ure, in the presence of the assisting personnel, a procedural pause was conducted to verify correct patient identity and verification of procedure to be performed, and as applicable, correct side and site, correct patient position, availability of implants, special equipment, or special requirements, and all image and specimen identification data. INTRAPROCEDURE: Moderate sedation was ad ministered by sedation nurse under my supervision. The patient was continuously monitored with real time oxygen saturation, heart rate, ECG rhythm strip and blood pressure throughout administra tion of the sedation and performance of the procedure. The total intra-procedural sedation time was : 22 minutes. TECHNIQUE: Sterile;1% lidocaine for loca l anesthesia and CT Guidance. The patient was prepared in the supine position. Utilizing coaxial t echnique, a 17-gauge introducer was carefully advanced to the target. 6 samples were taken utilizi ng an 18-gauge biopsy device. TARGET LOCATION: Left bladder mass BIOPSY INSTRUMENT: /[address] NUMBER OF SAMPLES OBTAINED: 6 COMPLICATION: None BLOOD LOSS: Minimal PATIENT INSTRUCTIONS: Patient may be dis missed from the radiology department when dismissal criteria met. POST-PROCEDURE DIAGNOSIS: Left bladder m ass IMPRESSION: CT-guided left bladder mass biopsy. EP David Sevilla, B.Tj., B.A.O. IMG CT PROCEDURES (ABNORMAL) Cytology Fine Needle Aspiration (including core biopsies) (02/18/2022 8:00 AM CDT) Component Value Ref Test Analysis Performed At [facility] [employer] Method Time Signature (A) 02/20/2022 DTL 3:00 PM CDT Report Collin Paz M.D. 02/20/2022 DTL electronically 3:00 PM CDT signed by I verify that I have examined all relevant slides/materials for the specimen(s) and rendered or confirmed the diagnosis. Seen in consultation with: Tess Zhu M.D. (A) Gross Description Received 6 alcohol-fixed smears and tissue. 02/20/2022 DTL 3:00 PM CDT Additionally, received in formalin labeled with the patient's name, medical record number and bladder, mass are three light gr-red soft tissue cores and seven fragments, ranging from 0.1-1.5 cm in length. ??Specimens are submitted en toto in cassette A1. Grossed by DONITA. (A) Source A. Soft Tissue, 02/20/2022 DTL Bladder mass, 3:00 PM CDT fine needle aspiration (A) Interpretation A. Soft Tissue, Bladder mass, fine needle aspiration 02/20/2022 DTL (smears/core biopsy): Positive for malignancy. 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 Muscularis propria is present and uninvolved. Immunostains performed on block A1 show that the tumor cells are positive for GATA3, Uroplakin-2, and P40. (A) Specimen Anatomical Collection Method Collection Time Receive d Time (Source) Location / / Volume Laterality Varies (Bladder) 02/18/2022 8:00 AM 02/18 9:24 CDT AM CDT Narrative This result has an attachment that is no t available. David Sevilla, B.Tj., B.A.O. LAB SURG PATH SHERRI FLORES Performing Organization Address City/State/ZIP Code Phon e Number [facility] - [address] [place], [place] [address] [facility] [place] [address] Laboratories-[facility] [address] Glucose, POCT (02/18/2022 7:25 AM CDT) Analysis Performed At [facility] logis Time Signature Glucose, POCT, 112 70 - 140 02/18/2022 PCLX B mg/dL 12:58 PM CDT Site Capillary 02/18/2022 PCLX 12:58 PM CDT Specimen Anatomical Collection Method Collection Time Receive d Time (Source) Location / / Volume Laterality Blood 02/18/2022 7:25 AM 2 CDT 12:59 PM CDT Unknown Provider LAB POCT ORDERABLES-MANUAL Performing Organization Address City/State/ZIP Code Phon e Number POC [facility] [address] [place] [address] PCLX 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 Given 02/22/2022 9:30 AM CDT 1,000 mg Given 02/20/2022 9:05 AM CDT 1,000 mg alum-mag hydroxide-simeth 200-200-20 mg/ 5 mL suspension 30 mL (MAALOX) 30 mL, oral, 4 times daily PRN, indigestion, Starting on Fri02/18/22 at 1318 belladonna alkaloids-opium 16.2-30 mg Given 02/20/2022 6:46 AM CDT 1 suppository suppository 1 suppository (B&O SUPPRETTS) 1 suppository, rectal, Every 8 hours PRN, bladder spasms, Starting on Fri02/19/22 at 1829 Given 02/19/2022 10:38 PM CDT 1 suppository buPROPion XL 24 hr tablet 300 mg (WELLBUTRIN Given 03/2022 7:42 AM CDT 300 mg XL) 300 mg, oral, Daily, First dose on Fri02/20/22 at 0900, Swallow whole. Do NOT crush, chew, or split tablet. Given 02/21/2022 8:49 AM CDT 300 mg Given 02/20/2022 2:16 PM CDT 300 mg ciprofloxacin in D5W IVPB 400 mg New Bag 02/18/2022 9:49 AM CD T 400 mg 200 mL/hr (CIPRO) 400 mg, intravenous, at 200 mL/hr, Administer over 60 Minutes, Once, On Fri02/18/22 at 0930, For 1 dose, Preprocedure (RAD), Administer within 2 hours prior to surgical incision, Drug Monitoring Program: Pharmacist to adjust medication dosing based on indication and drug clearance factors., Indications: Prophylaxis, surgical diazePAM tablet 2 mg (VALIUM) Given 02/20/2022 4:08 AM CDT 2 mg 2 mg, oral, Once, On Fri02/20/22 at 0415, For 1 dose, Bladder spasm diazePAM tablet 5 mg (VALIUM) Given 02/20/2022 10:38 AM CDT 5 mg 5 mg, oral, Once, On Fri02/20/22 at 1045, For 1 dose fentaNYL injection 25 mcg (SUBLIMAZE) Given 02/18/2022 10:42 AM CDT 25 mcg 25 mcg, intravenous, Every 2 min PRN, sedation, or pain before and during sedation procedure, Starting on Fri02/18/22 at 0751, Intraprocedure (RAD), Administer over 1 minute immediately prior to the procedure. May repeat every 2 minutes to a maximum of 200 mcg, until pain score of 3 or less from baseline. Do not give if respiratory rate is less than 8 breaths/minute Given 02/18/2022 10:27 AM CDT 25 mcg Given 02/18/2022 8:36 AM CDT 25 mcg heparin (porcine) Given 02/20/2022 6:47 AM CDT 5,000 Units Left Upper Arm injection 5,000 Units (Back) 5,000 Units, subcutaneous, Every 8 hours scheduled, First dose on Fri02/18/22 at 1400 Given 02/19/2022 9:02 PM CDT 5,000 Units Left Upper Arm (Back) Given 02/19/2022 3:28 PM CDT 5,000 Units Left Upper Arm (Back) heparin (porcine) Given 02/22/2022 1:14 PM CDT 5,000 Units Left Upper Arm injection 5,000 Units (Back) 5,000 Units, subcutaneous, Every 8 hours scheduled, First dose on Fri02/20/22 at 1400 Given 02/22/2022 6:24 AM CDT 5,000 Units Left Upper Arm (Back) Given 02/21/2022 9:28 PM CDT 5,000 Units Left Upper Arm (Back) hydroxyurea capsule 1,500 mg (HYDREA) Given 02/21/2022 8:52 AM CDT 1,500 mg 1,500 mg, oral, User Specified (Once per day on Fri), First dose (after last reorder) on Fri02/20/22 at 0900, HAZARDOUS - Handle with care. Swallow whole. Do NOT crush, chew or open capsule. Given 02/20/2022 9:05 AM CDT 1,500 mg hydroxyurea capsule 2,000 mg (HYDREA) Given 02/22/2022 7:53 AM CDT 2,000 mg 2,000 mg, oral, User Specified (Once per day on Fri), First dose on Fri02/22/22 at 0900, HAZARDOUS - Handle with care. Swallow whole. Do NOT crush, chew or open capsule. insulin aspart U-100 Given 02/21/2022 5:10 PM CDT 2 Units Right Upper Arm injection 0-7 Units (Back ) (NovoLOG FlexPen) 0-7 Units, subcutaneous, 3 times daily, First dose on Fri02/18/22 at 1700, Insulin Scale: Mild Correction Scale, 180 - 219: 2 units, 220 - 259: 3 units, 260 - 299: 4 units, 300 - 339: 5 units, 340 - 379: 6 units, 380 - 399: 7 units, Greater than 399: Call service writing Insulin orders Given 02/20/2022 1:17 PM CDT 2 Units Left Upper Arm (Back) Given 02/20/2022 9:27 AM CDT 2 Units Left Upper Arm (Back) lactated ringers New Bag 02/20/2022 2:27 PM CDT 50 mL/hr 50 mL/hr 50 mL/hr, intravenous, Continuous, Starting on Fri02/20/22 at 1415, For 10 hours lactated ringers New Bag 02/21/2022 5:35 AM CDT 75 mL/hr 75 mL/hr 50 mL/hr, intravenous, Continuous, Starting on Fri02/21/22 at 0000 New Bag 02/20/2022 11:23 PM CDT 75 mL/hr 75 mL/hr lidocaine 10 mg/mL (1 %) injection Given 02/18/2022 8:53 6 mL Abdominal (XYLOCAINE) AM CDT Tissue Code/trauma/sedation medication, Starting on Fri02/18/22 at 0853 lidocaine HCL 2 % topical jelly 1 Given 02/19/2022 2:29 PM CDT 1 application application (GLYDO) 1 application, urethral, Once, On Fri02/19/22 at 1400, For 1 dose, Urinary System Administration: Surface anesthesia for pediatric urethra: 0.2 mL/kg (maximum 5 mL for females, maximum 15 mL for males) Surface anesthesia of male urethra: 300 mg (15 mL) instilled into urethra or until patient has feeling of tension; may administer another dose of not more than 300 mg (15 mL) for adequate anesthesia. Prior to sounding or cystoscopy, a total dose of 600 mg (30 mL) is usually required. Prior to catheterization, a smaller dose of 100 to 200 mg (5 to 10 mL) is usually sufficient. MAX 600 mg per 12-hour period. Surface anesthesia of female urethra: 60 to 100 mg (3 to 5 mL) instilled into urethra; if desired, additional jelly may be applied with a cotton swab. MAX 600 mg per 12-hour period. melatonin tablet 5 mg 5 mg, oral, Bedtime PRN, sleep, Starting on Fri02/19/22 at 1658 metroNIDAZOLE in NaCl (iso-osm) New Bag 02/18/2022 9:39 AM CDT 500 mg 200 mL/hr IVPB 500 mg (FLAGYL) 500 mg, intravenous, at 200 mL/hr, Administer over 30 Minutes, Once, On Fri02/18/22 at 0930, For 1 dose, Intraprocedure (RAD), Administer within 1 hour prior to surgical incision, Indications: Prophylaxis, surgical midazolam (PF) injection 0.5 mg (VERSED) Given 02/18/2022 10:38 AM CDT 0.5 mg 0.5 mg, intravenous, Every 2 min PRN, sedation, RASS -1, Starting on Fri02/18/22 at 0751, Intraprocedure (RAD), May repeat every 2 minutes for a maximum of 5 mg. Do not give if respiratory rate is less than 8 breaths/minute. Given 02/18/2022 10:29 AM CDT 0.5 mg Given 02/18/2022 8:38 AM CDT 0.5 mg NaCl 0.9 % irrigation solution 3,000 mL New Bag 02/20/2022 2:43 PM CDT 3,000 mL 3,000 mL, irrigation, Continuous, Starting on Fri02/19/22 at 1500, FOR BLADDER IRRIGATION ONLY, NOT FOR IV USE New Bag 02/19/2022 3:27 PM CDT 3,000 mL NaCl 0.9 % irrigation solution 3,000 mL New Bag 02/22/2022 6:58 AM CDT 3,000 mL 3,000 mL, irrigation, Continuous, Starting on Fri02/19/22 at 1500, FOR BLADDER IRRIGATION ONLY, NOT FOR IV USE New Bag 02/21/2022 11:42 AM CDT 3,000 mL New Bag 02/21/2022 11:41 AM CDT 3,000 mL naloxone injection 0.2 mg (NARCAN) 0.2 mg, intravenous, As needed, respirat ory depression, Starting on Fri02/18/22 at 1316, For RASS Score -4 or less, respiratory rate of l ess than 8 breaths/min. Notify provider/service and rapid response team (if av ailable at institution). ondansetron (PF) injection 4 mg (ZOFRAN) 4 mg, intravenous, Every 6 hours PRN, na usea, vomiting, Starting on Fri02/18/22 at 1318 oxyCODONE IR tablet 10 mg (ROXICODONE) Given 02/20/2022 9:13 AM CDT 10 mg 10 mg, oral, Every 4 hours PRN, severe pain or score 7-10 of 10, May use if patient can take oral meds and other analgesics are ineffective, Starting on Fri02/18/22 at 1318 oxyCODONE IR tablet 5 mg (ROXICODONE) 5 mg, oral, Every 4 hours PRN, moderate pain or score 4-6 of 10, May use if patient can take oral meds and other analgesics are ineffective, Starting on Fri02/18/[address] tablet 40 mg (PROTONIX) Given 02/22/2022 6:24 AM CDT 40 mg 40 mg, oral, Daily before breakfast, First dose on Fri02/20/22 at 0700, pantoprazole 40 mg oral daily was interchanged for omeprazole 20 or 40 mg oral daily Swallow whole. Do NOT crush, chew, or split tablet. Given 02/21/2022 7:36 AM CDT 40 mg Given 02/20/2022 6:47 AM CDT 40 mg polyethylene glycol powder packet 17 g Given 02/20/2022 9:04 AM CDT 17 g (MIRALAX) 17 g, oral, Daily PRN, constipation, Starting on Fri02/18/22 at 1318, Ordered sequence of administration: polyethylene glycol, then bisacodyl until BM achieved. Avoid mixing with starch-based thickened liquids. Given 02/19/2022 3:40 PM CDT 17 g sennosides-docusate sodium 8.6-50 mg per Given 02/22/2022 7:42 A M CDT 1 tablet tablet 1 tablet (SENOKOT-S) 1 tablet, oral, 2 times daily, First dose on Fri02/18/22 at 2100, Do not give if patient has diarrhea. Given 02/21/2022 8:49 AM CDT 1 tablet Given 02/20/2022 8:39 PM CDT 1 tablet simethicone chewable tablet 80 mg (MYLIC ON) 80 mg, oral, 4 times daily PRN, flatulence, Starting o n 02/19/22 at 1658 sodium chloride 0.9 % injection 10 mL 10 mL, intravenous, As needed, line care, Starting on Fri02/18/22 at 0918, Preprocedure (RAD), Peripheral Intraveno us Catheter and Rapid Infusion Catheter, prior to blood sampling, post blood transfusion or pos t blood sampling sodium chloride 0.9 % injection 10 mL 10 mL, intravenous, As needed, line care, Starting on Fri02/18/22 at 0918, Preprocedure (RAD), Peripheral Intraveno us Catheter and Rapid Infusion Catheter, prior to blood sampling, post blood transfusion or pos t blood sampling sodium chloride 0.9 % injection 10 mL Given 02/21/2022 8:51 AM CDT 10 mL 10 mL, intravenous, As needed, line care, Starting on Fri02/18/22 at 1316, Peripheral Intravenous Catheter and Rapid Infusion Catheter, prior to blood sampling, post blood transfusion or post blood sampling sodium chloride 0.9 % injection 10 mL Given 02/21/2022 10:39 AM CDT 10 mL 10 mL, intravenous, As needed, line care, Starting on Lise 02/21/22 at 1037, Prior to and following infusion and between multiple consecutive infusions: sodium chloride 0.9 % injection sodium chloride 0.9 % injection 3 mL 3 mL, intravenous, As needed, line care, Starting on M on 02/18/22 at 0918, Preprocedure (RAD), Prior to and following infusion an d between multiple consecutive infusions: sodium chloride 0.9 % injection sodium chloride 0.9 % injection 3 mL Given 02/22/2022 7:48 AM CDT 3 mL 3 mL, intravenous, Every 12 hours scheduled, First dose on Fri02/18/22 at 2100, Preprocedure (RAD), Peripheral Intravenous Catheter and Rapid Infusion Catheter, when no infusion to maintain patency Given 02/21/2022 9:35 PM CDT 3 mL Given 02/21/2022 9:45 AM CDT 3 mL sodium chloride 0.9 % injection 3 mL 3 mL, intravenous, As needed, line care, Starting on M on 02/18/22 at 0918, Preprocedure (RAD), Prior to and following infusion an d between multiple consecutive infusions: sodium chloride 0.9 % injection sodium chloride 0.9 % injection 3 mL Given 02/21/2022 9:35 PM CDT 3 mL 3 mL, intravenous, Every 12 hours scheduled, First dose on Fri02/18/22 at 2100, Preprocedure (RAD), Peripheral Intravenous Catheter and Rapid Infusion Catheter, when no infusion to maintain patency Given 02/20/2022 8:40 PM CDT 3 mL Given 02/18/2022 9:00 PM CDT 3 mL sodium chloride 0.9 % injection 3 mL 3 mL, intravenous, As needed, line care, Starting on Fri02/18/22 at 1316, Prior to and following infusion and between multi ple consecutive infusions: sodium chloride 0.9 % injection sodium chloride 0.9 % injection 3 mL Given 02/21/2022 9:28 PM CDT 3 mL 3 mL, intravenous, Every 12 hours scheduled, First dose on Fri02/18/22 at 2100, Peripheral Intravenous Catheter and Rapid Infusion Catheter, when no infusion to maintain patency Given 02/20/2022 8:39 PM CDT 3 mL Given 02/18/2022 10:00 PM CDT 3 mL sulfur hexafluoride microspheres injection Given 02/21/2022 10:39 AM CDT 2.5 mL (LUMASON) intravenous, As needed, contrast, Starting on Lise 02/21/22 at 1037, See protocol. Reconstitute each 25 mg vial with 5 mL NS. traMADoL tablet 50 mg (ULTRAM) Given 02/22/2022 6:56 PM CDT 50 mg 50 mg, oral, Every 6 hours PRN, moderate pain or score 4-6 of 10, Starting on 02/18/22 at 1318 Given 02/22/2022 12:33 PM CDT 50 mg Given 02/20/2022 10:37 AM CDT 50 mg trospium tablet 20 mg (SANCTURA) Given 02/22/2022 6:56 PM CDT 20 mg 20 mg, oral, 2 times daily PRN, bladder spasms, Starting on Fri02/18/22 at 1318, Administer with water at least 1 hr prior to meals., Restriction Criteria (Pharmacy will review and approve if criteria met): Use in patients 65 years of age or older Given 02/21/2022 9:28 PM CDT 20 mg Given 02/20/2022 2:16 PM CDT 20 mg documented in this encounter Active and Recently Administered Medications Times are shown in CDT. Scheduled Medication Order 02/20/2022 02/21/2022 02/22/2022 buPROPion XL 24 hr tablet 300 mg (WELLBUTRIN XL) 1416 (Given - Provider: Josephine Sánchez RHuong.) 0849 (Given - Provider: Maria D Spencer RHuong.) 0742 (Gi austyn - Provider: Shelley Baker RGuy) 300 mg, oral, Daily, First dose on Fri at 0900, Swallow whole. Do NOT crush, chew, or split tablet. diazePAM tablet 2 mg (VALIUM) (COMPLETED) 0408 (Given - Provider: Kwesi Mortensen R.N.) 2 mg, oral, Once, On Fri02/20/22 at 0415, For 1 dose, Bladder spa sm diazePAM tablet 5 mg (VALIUM) (COMPLETED) 1038 (Given - Provider: Maria D García R.N.) 5 mg, oral, Once, On Fri02/20/22 at 1045, For 1 dose heparin (porcine) injection 5,000 Units (CANCELED) 064 7 (Given - Provider: Kwesi Mortensen R.N.) 5,000 Units, subcutaneous, Every 8 hours scheduled, First dose on Fri02/18/22 at 1400 heparin (porcine) injection 5,000 Units 1417 (Given - Provider: Josephine Sánchez R.N.)2144 (Given - Provider: Josephine Sánchez R.N.) 0849 (Given - Provider: Maria D Spencer R.N.)1522 (Given - Provider: Maria D Spencer R.N.)2128 (Given - Provider: Riley Paiz R.N.) 0624 (Given - Provider: Riley Paiz R.N.)1314 (Given - Provider: Shelley Baker R.N.) 5,000 Units, subcutaneous, Every 8 hours scheduled, First dose on Fri02/20/22 at 1400 hydroxyurea capsule 1,500 mg (HYDREA) 0905 (Given - Pr ovider: Austen Barry R.N.) 0852 (Given - Provider: Maria D Spencer R.N.) 1,500 mg, oral, User Specified (Once per day on Fri), First dose (after last reorder) on Fri02/20/22 at 0900, HAZARDOUS - Handle with care. Swallow whole. Do NOT crush, chew or open capsule. hydroxyurea capsule 2,000 mg (HYDREA) 0753 (Given - Provider: Shelley Baker RJluisNJluis) 2,000 mg, oral, User Specified (Once per day on Fri), First dose on Fri02/22/22 at 0900, HAZARDOUS - Handle with care. Swallow whole. Do NOT crush, chew or open capsule. insulin aspart U-100 injection 0-7 Units (NovoLOG Flex Pen) 0927 (Given - Provider: Austen Barry R.N.)1317 (Given - Provider: Josephine L Sánchez, R.N.)1913 (Not Given - Provider: Josephine Sánchez R.N. - Reason: Other) 0859 (Not Given - Provider: Maria D Spencer R.N. - Reason: Order parameters not met - Comment: RMG 119)1139 (Not Given - Provider: Maria D Spencer R.N. - Reason: Order parameters not met - Comment: RMG 166) 0719 (Not Given - Provider: Shelley Baker R.N. - Reason: Order parameters not met)1130 (Not Given - Provider: Shelley Baker R.N. - Reason: Patient/family refused) 0-7 Units, subcutaneous, 3 times daily, First dose on Fri02/18/22 at 1700, Insulin Scale: Mild Correction Scale, 180 - 219: 2 units, 220 - 259: 3 units, 260 - 299: 4 units, 300 - 339: 5 units, 340 - 379: 171 0 (Given - Provider: Maria D Spencer R.N. - Comment: RMG 205) 1636 (Not Given - Provider: Shelley Baker R.N. - Reason: Patient/family refused) 6 units, 380 - 399: 7 units, Greater th an 399: Call service writing Insulin orders pantoprazole DR tablet 40 mg (PROTONIX) 0647 (Given - Provider: Kwesi Mortensen RGuy) 0736 (Given - Provider: Rio Corral R.N.) 0624 (Given - Provider: Riley Paiz RGuy) 40 mg, oral, Daily before breakfast, Fir st dose on Fri02/20/22 at 0700, pantoprazole 40 mg oral daily was interchanged for omeprazole 20 or 40 mg oral daily Swallow whole. Do NOT crush, chew, or split tablet. sennosides-docusate sodium 8.6-50 mg per tablet 1 tabl et (SENOKOT-S) 0905 (Given - Provider: Austen Barry R.N.)2038 (Given - Provider: Josephine Sánchez R.N.) 0849 (Given - Provider: Maria D Spencer R.N.)2127 (Not Given - Provider: Riley Paiz R.N. - Reason: Patient/family refused) 0742 (Given - Provider: Shelley Baker RJluisNJluis) 1 tablet, oral, 2 times daily, First dos e on Fri02/18/22 at 2100, Do not give if patient has diarrhea. sodium chloride 0.9 % injection 3 mL 0913 (Not Given - Provider: Maria D García RJluisNJluis - Reason: Other)2039 (Given - Provider: Josephine Sánchez R.N.) 0945 (Given - Provider: Maria D Spencer RJluisN.)2134 (Given - Provider: Riley Paiz RJluisNJluis) 0748 (Given - Provider: Shelley Moreno lt R.NJluis) 3 mL, intravenous, Every 12 hours schedu led, First dose on Fri02/18/22 at 2100, Preprocedure (RAD), Peripheral Intravenous Catheter and Rapid Infusion Catheter, when no infusion to maintain patency sodium chloride 0.9 % injection 3 mL (CANCELED) 0913 ( Not Given - Provider: Maria D García RGuy - Reason: Other)2039 (Given - Provider: Josephine Sánchez R.N.) 0900 (Not Given - Provider: Maria D washington RJluisNJluis - Reason: Order parameters not met)2134 (Given - Provider: Riley Paiz R.N.) 3 mL, intravenous, Every 12 hours schedu led, First dose on Fri02/18/22 at 2100, Preprocedure (RAD), Peripheral Intravenous Catheter and Rapid Infusion Catheter, when no infusion to maintain patency sodium chloride 0.9 % injection 3 mL (CANCELED) 0912 ( Not Given - Provider: Maria D García RGuy - Reason: Other)2038 (Given - Provider: Josephine Sánchez R.N.) 1034 (Not Given - Provider: Maria D [place] RJluisN. - Reason: Order parameters not met)2127 (Given - Provider: Riley Paiz RJluisNJluis) 3 mL, intravenous, Every 12 hours schedu led, First dose on Fri02/18/22 at 2100, Peripheral Intravenous Catheter and Rapid Infusion Catheter, when no infusion to maintain patency Continuous Medication Order 02/20/2022 02/21/2022 02/22/2022 lactated ringers () 1427 (New Bag - Provider: Keyonna Sánchez R.N.)2322 (Stopped - Provider: Rio Corral R.N.) 50 mL/hr, intravenous, Continuous, Starting on 02/20 at 1415, For 10 hours lactated ringers (CANCELED) 2323 (New Bag - Provider: Jonna Corral R.N.) 0535 (New Bag - Provider: Sheron Cuevas R.N.)0617 (Stopped - Provider: Sheron Cuevas R.N. - Comment: For blood admin)0644 (Due: Rate/Dose Change) 50 mL/hr, intravenous, Continuous, Starting on Lise 02/21/22 at 000 0 NaCl 0.9 % irrigation solution 3,000 mL (CANCELED) 144 3 (New Bag - Provider: Bassam Sánchez) 3,000 mL, irrigation, Continuous, Starti ng on Fri02/19/22 at 1500, FOR BLADDER IRRIGATION ONLY, NOT FOR IV USE NaCl 0.9 % irrigation solution 3,000 mL (CANCELED) 080 3 (New Bag - Provider: Rolf Tobias)0924 (New Bag - Provider: Rolf Tobias)1151 (New Bag - Provider: Sarah Juan)2200 (New Bag - Provider: Morgan Mccloud) 0146 (New Bag - Provider: Morgan Mccloud)1141 (New Bag - Provider: Rogelio Gil)1142 (New Bag - Provider: Rogelio Gil) 0658 (New Bag - Provider: Rogelio lemus) 3,000 mL, irrigation, Continuous, Starti ng on Fri02/19/22 at 1500, FOR BLADDER IRRIGATION ONLY, NOT FOR IV USE PRN Medication Order 02/20/2022 02/21/2022 02/22/2022 acetaminophen tablet 1,000 mg (TYLENOL) 0206 (Given - Provider: Kwesi Mortensen R.N.)0905 (Given - Provider: Austen Barry R.N.) 0930 (Given - Provider: Shelley Baker R.N.)1856 (Given - Provider: Shelley Baker R.N.) 1,000 mg, oral, Every 6 hours PRN, mild pain or score 1-3 of 10, Starting on Fri02/18/22 at 1318, For mild pain, give acetaminophen before tramadol. alum-mag hydroxide-simeth 200-200-20 mg/5 mL suspension 30 mL (M AALOX) 30 mL, oral, 4 times daily PRN, indigestion, Starting on 02/18 at 1318 belladonna alkaloids-opium 16.2-30 mg suppository 1 charles ppository (B&O SUPPRETTS) 0646 (Given - Provider: Kwesi Mortensen R.N.) 1 suppository, rectal, Every 8 hours PRN , bladder spasms, Starting on Fri02/19/22 at 1829 melatonin tablet 5 mg 5 mg, oral, Bedtime PRN, sleep, Starting on Fri02/19/22 at 1658 naloxone injection 0.2 mg (NARCAN) 0.2 mg, intravenous, As needed, respirat ory depression, Starting on Fri02/18/22 at 1316, For RASS Score -4 or less, respiratory rate of less than 8 breaths/min. Notify provider/service and rapid response team (if available at institution). ondansetron (PF) injection 4 mg (ZOFRAN) 4 mg, intravenous, Every 6 hours PRN, na usea, vomiting, Starting on Fri02/18/22 at 1318 oxyCODONE IR tablet 10 mg (ROXICODONE)(Linked Group 1) 0913 (Given - Provider: Austen Barry R.N.) 10 mg, oral, Every 4 hours PRN, severe p ain or score 7-10 of 10, May use if patient can take oral meds and other analgesics are ineffective, Starting on Fri02/18/22 at 1318 oxyCODONE IR tablet 5 mg (ROXICODONE)(Linked Group 1) 0913 (See Alternative - Provider: Austen Barry R.N.) 5 mg, oral, Every 4 hours PRN, moderate pain or score 4-6 of 10, May use if patient can take oral meds and other analgesics are ineffective, Starting on Fri02/18/22 at 1318 polyethylene glycol powder packet 17 g (MIRALAX) 0904 (Given - Provider: Austen Barry RGuy) 17 g, oral, Daily PRN, constipation, Sta rting on Fri02/18/22 at 1318, Ordered sequence of administration: polyethylene glycol, then bisacodyl until BM achieved. Avoid mixing with starch-based thickened liquids. simethicone chewable tablet 80 mg (MYLICON) 80 mg, oral, 4 times daily PRN, flatulence, Starting on Fri at 1658 sodium chloride 0.9 % injection 10 mL 10 mL, intravenous, As needed, line care , Starting on Fri02/18/22 at 0918, Preprocedure (RAD), Peripheral Intravenous Catheter and Rapid Infusion Catheter, prior to blood sampling, post blood transfusion or post blood sampling sodium chloride 0.9 % injection 10 mL 10 mL, intravenous, As needed, line care , Starting on Fri02/18/22 at 0918, Preprocedure (RAD), Peripheral Intravenous Catheter and Rapid Infusion Catheter, prior to blood sampling, post blood transfusion or post blood sampling sodium chloride 0.9 % injection 10 mL 08 51 (Given - Provider: Maria D Spencer RGuy) 10 mL, intravenous, As needed, line care , Starting on Fri02/18/22 at 1316, Peripheral Intravenous Catheter and Rapid Infusion Catheter, prior to blood sampling, post blood transfusion or post blood sampling sodium chloride 0.9 % injection 10 mL 10 39 (Given - Provider: VENKATESH Roman) 10 mL, intravenous, As needed, line care , Starting on Lise 02/21/22 at 1037, Prior to and following infusion and between multiple consecutive infusions: sodium chloride 0.9 % injection sodium chloride 0.9 % injection 3 mL 3 mL, intravenous, As needed, line care, Starting on Fri02/18/22 at 0918, Preprocedure (RAD), Prior to and following infusion and between multiple consecutive infusions: sodium chloride 0.9 % injection sodium chloride 0.9 % injection 3 mL 3 mL, intravenous, As needed, line care, Starting on Fri02/18/22 at 0918, Preprocedure (RAD), Prior to and following infusion and between multiple consecutive infusions: sodium chloride 0.9 % injection sodium chloride 0.9 % injection 3 mL 3 mL, intravenous, As needed, line care, Starting on Fri02/18/22 at 1316, Prior to and following infusion and between multiple consecutive infusions: sodium chloride 0.9 % injection sulfur hexafluoride microspheres injection (LUMASON) 1039 (Given - Provider: VENKATESH Roman) intravenous, As needed, contrast, Starti ng on Lise 02/21/22 at 1037, See protocol. Reconstitute each 25 mg vial with 5 mL NS. traMADoL tablet 50 mg (ULTRAM) 0207 (Given - Provider: Kwesi Mortensen RJluisN.)1037 (Given - Provider: Maria D García R.N.) 1233 (Given - Provider: Eulalia Suh RJluisNJluis)1856 (Given - Provider: Shelley Baker R.NJluis) 50 mg, oral, Every 6 hours PRN, moderate pain or score 4-6 of 10, Starting on Fri02/18/22 at 1318 trospium tablet 20 mg (SANCTURA) 0206 (Given - Provide r: Kwesi Mortensen RHuong.)1416 (Given - Provider: Josephine Sánchez R.N.) 2128 (Given - Provider: Riley Paiz RJluisNJluis) 1856 (Given - Provider: Shelley Moreno lt R.N.) 20 mg, oral, 2 times daily PRN, bladder spasms, Starting on Fri02/18/22 at 1318, Administer with water at least 1 hr prior to meals., Restriction Criteria (Pharmacy will review and approve if criteria met): Use in patients 65 years of age or older Linked Groups Order Group 1: oxyCODONE IR tablet 5 mg (ROXICODONE)Jump to med 5 mg, oral, Every 4 hours PRN, moderate pain or score 4-6 of 10, May use if patient can take oral meds and other analgesics are ineffective, Starting on Fri02/18/22 at 1318 Or oxyCODONE IR tablet 10 mg (ROXICODONE)Jump to med 10 mg, oral, Every 4 hours PRN, severe p ain or score 7-10 of 10, May use if patient can take oral meds and other analgesics are ineffective, Starting on 02/18/22 at 1318 documented in this encounter Additional Health Concerns Infection Onset Date Last Indicated Resolved Time COVID19 Pending 02/20/2022 02/20/2022 02/20/2022 8:04 PM CDT documented as of this encounter Care Teams 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
--- OUTSIDE RECORDS SUMMARY | 2022-07-31 11:35 | XMS_ITS | Encounter Summary ---
:1935 Author Organization [facility] Address [address] [place] [address] Care Team Providers Name Role Phone Elsewhere, Pcp Primary Care Provider Unavailable Encounter Details Date Type Department Care Team Description 02/07/2022 Hospital Encounter Department of Laboratory Calin Day, Mass Bladder Medicine in [place], Juan., B.Ch., [place] B.A.O. [address] [place] [phone] Social History Tobacco Use Types Packs/Day Years [...] or relatives? How often do you attend christianity or Patient refused 2021 taoism services? Do you belong to any clubs or No 05/17/2022 organizations such as christianity groups, unions, fraternal or athletic groups, or [...] place to sleep or slept in a prison (including now)? 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 [address] [place] [address] [phone] (Wo rk) 08/20/2022 Appointment Radiology Claude Loaiza MPAS, P.A.-C. [address] [place] [address] [phone] (Octavio rk) 08/22/2022 Virtual Visit Urology Gibran Ruvalcaba M.D. [address] [place] [address] [phone] (Wo rk) documented as of this encounter Procedures Procedure Name Priority Date/Time Associated Comments Diagnosis BACTERIAL CULTURE, Routine 02/07/2022 9:26 AM Mass Bladder Res ults for this AEROBIC + SUSC, URINE CDT proced ure are in the results section. URINALYSIS WITH Routine 02/07/2022 9:26 AM Mass Bladder Result s for this MICROSCOPIC CDT procedure are i n the results section. documented in this encounter Results (ABNORMAL) Bacterial Culture, Aerobic + Susc, Urine (02/07/2022 9:26 AM CDT) Analysis Performed At Patho logist Time Signature Urine Culture Mixed 02/08/2022 [facility] jonatan. (A) 11:51 AM CDT Specimen Anatomical Collection Method Collection Time Receive d Time (Source) Location / / Volume Laterality Urine (Urine, 02/07/2022 9:26 AM 02/08/20 3:07 Midstream) CDT PM CDT Comment: Specimen Source Site: Urine David Sevilla, B.Ch., B.A.O. LAB MICROBIOLOGY - GENERAL ORDERABLES Performing Organization Address City/State/ZIP Code Phon e Number [facility]- [address] [place] [address] [place] [address] (ABNORMAL) Urinalysis with Microscopic: Urine, Midstream (02/07/2022 9:26 AM CDT) Analysis Performed At Patho logist Time Signature Source Urine, Urine, 02/07/2022 [facility] Midstream 9:26 AM CDT Clarity Bloody (A) Clear 02/07/2022 [facility] 10:56 AM CDT Color Yellow 02/07/2022 [facility] 10:56 AM CDT Comment: ----REFERENCE VALUE---- Colorless Yellow Deysi Blood Large (A) Negative 02/07/2022 10:56 AM CDT NPCL Nitrite Negative Negative 02/07/2022 10:56 AM CDT NP[facility] Leukocyte Esterase Trace (A) Negative 02/07/2022 10:56 AM C DT NP[facility] Protein 100 (A) mg/dL 02/07/2022 10:56 AM CDT NPCL Comment: ----REFERENCE VALUE---- Negative Trace Glucose Negative Negative mg/dL 02/07/2022 10:56 AM CDT N PCL Ketones, QI(U) Negative Negative mg/dL 02/07/2022 10:56 AM CDT NPCL Bilirubin Negative Negative 02/07/2022 10:56 AM CDT NPCL pH 7.0 5.0 - 8.0 02/07/2022 10:56 AM CDT NPCL Specific [place] 1.020 1.001 - 1.035 02/07/2022 10:56 AM CDT NPCL Urobilinogen 2.0 (A) 0.2 - 1.0 mg/dL 02/07/2022 10:56 AM C DT NPCL White Blood Cells 31-40 (A) /hpf 02/07/2022 10:46 AM CD T NPRG Comment: ----REFERENCE VALUE---- Males: 0-3 Females: 0-10 Unknown: 0-10 Red Blood Cells >100 (A) 0 - 2 /hpf 02/07/2022 10:46 AM CDT NPRG Dysmorphic Red Blood Cells <=25 <=25 % 02/07/2022 10 :46 AM CDT NPRG Squamous Cells Occ-3 /hpf 02/07/2022 10:46 AM CDT N PRG Transitional Cells Occ-3 (A) None Seen /hpf 02/07/2022 10:46 AM CDT NPRG Bacteria Present (A) None Seen 02/07/2022 10:46 AM CDT NPRG Specimen Anatomical Collection Method Collection Time Receive d Time (Source) Location / / Volume Laterality Urine (Urine, 02/07/2022 9:26 AM 02/08/20 9:26 Midstream) CDT AM CDT David Sevilla, B.Tj., B.A.O. LAB URINE ORDERABL ES Performing Organization Address City/State/ZIP Code Phon e Number [facility]- [address] [facility] [place] [facility] [place] [address] [facility] NPCL [facility] [address] [facility] [address] [place] [address] [facility] [address] documented in this encounter Visit Diagnoses Diagnosis Mass Bladder documented in this encounter Care Teams Concrete Tile Machine Operator Relationship Specialty Start Date End Date Elsewhere, Pcp PCP - General Internal Medicine 01/14/22 documented as of this encounter
--- OUTSIDE RECORDS SUMMARY | 2022-07-31 11:35 | XMS_ITS | Encounter Summary ---
:1935 Author Organization [facility] Address [address] [place] [address] Care Team Providers Name Role Phone Elsewhere, Pcp Primary Care Provider Unavailable Reason for Referral MRI/CAT/PET Scan (Routine) - Closed Specialty Diagnoses / Procedures Referred By Contact Refer red To Contact Radiology Diagnoses Malignant Neoplasm Of Bladder (HCC) David Day M.B., [facility] Procedures CT Urogram without and with IV Contrast B.Ch., B.A.O. [address] [place] [address] Referral ID Status Reason Start Date Expiration Date Visits Requ ested Visits Authorized [id number] Closed 02/08/2022 02/08/2023 1 1 Reason for Visit Appointment Request (Routine) - Closed Specialty Diagnoses / Procedures Referred By Contact Refer red To Contact Urology Diagnoses Mass Bladder Referral ID Status Reason Start Date Expiration Date Visits Requ ested Visits Authorized [id number] Closed 01/30/2022 01/30/2023 1 1 Encounter Details Date Type Department Care Team Description 02/08/2022 Comprehensive Visit Department of David Day Neoplasm Urology in Roel Heredia, Of Bladder (HCC ) [place], [place] B.Ch., B.A.O. 200 [facility] 200 [place] [phone] Social History Tobacco Use Types Packs/Day Years [...] or relatives? How often do you attend mu-ism or Patient refused 2021 restoration services? Do you belong to any clubs or No 05/17/2022 organizations such as mu-ism groups, unions, fraPerkHub or athletic groups, or school groups? 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 - 02/08/2022 9:30 AM CDT SUBJECTIVE REQUESTING PROVIDER No ref. provider found REASON FOR CONSULT Urothelial carcinoma HISTORY OF PRESENT ILLNESS Mr. 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 He recently presented to the emergency department on January 24, 2022 with increased shortness of breath, and back pain. Laboratory workup showed anemia 9.7 and creatinine of 1 (stable) Had a urinalysis which was concerning for microscopic hematuria. He was admitted to the hospital for diuresis. He had aCT scan of the chest, abdomen and pelvis given his back pain. This showed right- sided pleural effusion and irregular thickening of the posterior left bladder wall with possible obstruction at the left UVJ with moderate left-sided hydroureteronephrosis. There was ne pelvic lymphadenopathy. CT chest wasnegative for PE. There was emphysematous changes noted. Based on out side report no suspicious pulmonary nodules. He had an MRI of the lumbar spine which showed degenerative disease, spinal canal narrowing. He was seen by a local urologist last week. He had a cystoscopy showed a large bladder mass on the left bladder wall and the left ureteral orifice was not able to be identified. Also he was noted to have gross hematuria that time. She recommended undergoing TURBT however his low ejection fraction and comorbidities she requested to have a cardiology clearance. Patient currently denies any flank pain. Denies any fevers or chills. He denies any constitutional symptoms. He was sitting on a wheelchair acquiring supplemental oxygen. He does have urinary symptoms feel of incomplete bladder emptying however he is not bothersome by it. He does have gross hematuria. He denies any dysuria, urgency, frequency. He had an outside cardiac echo done in December 07, 2021 showed an ejection fraction of 20-25%. He also had COVID infection in the past 6 months., at some point he required oxygen support. He is currently being followed by his local assistant professor and taking Lasix for diuresis. On December 2021 he underwent angiogram. Following this patient developed elevated creatinine of 5.2 this subsequently recovered. UA: Microscopic hematuria, pyuria, Positive for bacteria present Lab: Hb 9.6, Plt 523, Creatinine 1.09 Antiplatelets anticoagulation: Aspirin 81 mg Past medical history: Congestive heart failure with ejection fraction 20-25% CKD Hypertensive cardiac myopathy Hypertension Coronary artery disease Cognitive impairment Depression Type 2 diabetes Polycythemia vera Gout Hearing loss COVID-19 infection Past Surgical hx: None Family history: No family history of malignancy Lower Urinary Symptoms Lower Urinary Sx: hematuria (+) nocturia (+) difficulty urinating (+) General Oncologic Symptoms hematuria (+) ECO - in bed >50% of the day The following portions of the patient's history were reviewed and updated as appropriate: allergies,current medications, family history, medical history, social history, surgical history and problem list. REVIEW OF SYSTEMS Genitourinary: Positive for difficulty urinating and hematuria. OBJECTIVE There were no vitals filed for this visit. PHYSICAL EXAM URO Physical Exam General: resting on a wheel chair requiring oxygen supplementation Head: normocephalic, atraumatic Eyes: extraocular muscles intact with anicteric sclerae Lungs: non-labored respirations on room air Rectum: normal sphincter tone Extremities: no edema Psych: appropriate mood and affect Neuro: ambulates with a normal gait Skin: no obvious skin lesions LABORATORY Lab Results Component Value Date HGB 9.6 (L) 02/07/2022 CREATININE 1.09 02/07/2022 ALKPHOS 152 (H) 02/07/2022 AST 15 01/14/2022 ALT 16 01/14/2022 IMAGING No results found. Testing Cystoscopy: ASSESSMENT / PLAN #1 Left bladder mass #2 Left hydronephrosis #3 Congestive heart failure with ejection fraction 20-25% I had the pleasure meeting Mr. Chery in clinic today for evaluation. I have reviewed his outsidemedical records in detail. He has multiple comorbidities including congestive heart failure with an ejection fraction of 20%. He was found to have a bladder mass with left hydronephrosis. His kidney function is currently stable with a creatinine of 1.0. He has intermittent flank pain however he deniesany signs of infection. I discussed in detail the management bladder mass with patient which would include a transurethral resection of the bladder tumor. However, given his comorbidities and current congestive heart failure requiring oxygen supplementation he is unable to undergo general anesthesia. Therefore, I recommended a CT urogram for accurate staging of urothelial cancer. If this shows positive for pelvic lymphadenopathy we will obtain a perc biopsy of the lymph node. However, if there is nosignificant lymphadenopathy we will obtain a perc biopsy of his bladder. In regards to his left hydronephrosis, he is currently asymptomatic and creatinine stable and likely partially obstructed. I recommending having a nephrostomy tube placed for decompression. Patient would like to defer this until he has his CT urogram obtained, and would like to have his biopsy and nephrostomy tube placed at the s keisha time which is very reasonable. In the meantime, he develops any fevers, chills he understands that he needs to present to the emergency department for evaluation and treatment of a left nephrostomytube. Plan: -CT urogram -If CT urogram positive for pelvic lymphadenopathy, will obtain perc biopsy of lymph node. -If CT Urogram is negative for lymphadenopathy, will obtain per biopsy of the bladder with nephrostomy tube placement at the same time. - Cancel office cystoscopy next week Signed by: Roel Shepard, Delia, B.A.O. 02/07/2022 5:51 PM CDT documented in this encounter Plan of Treatment Upcoming Encounters Date Type Specialty Care Team Description 08/20/2022 Appointment Radiology Claude Loaiza MPAS, P.A.-C. [address] [place] [address] [phone] (Octavio christensen) 08/20/2022 Appointment Radiology Claude Loaiza MPAS, P.A.-C. [address] [place] [address] [phone] (Octavio rk) 08/22/2022 Virtual Visit Urology Gibran Ruvalcaba M.D. [address] [place] [address] [phone] (Octavio christensen) documented as of this encounter Results CT Urogram without and [...] Spleen size upper limits of normal. David Sevilla, Vera., B.A.O. IMG CT PROCEDURES Interpretation of Outside CT Chest (02/08/2022 10:09 [...] may reflect mild congestive failure. David Sevilla, Vera., B.A.O. 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
--- OUTSIDE RECORDS SUMMARY | 2022-07-31 11:35 | XMS_ITS | Encounter Summary ---
:[address] [facility] Address [address] [place] [address] Care Team Providers Name Role Phone Elsewhere, Pcp Primary Care Provider Unavailable Reason for Referral MRI/CAT/PET Scan (Routine) - Closed Specialty Diagnoses / Procedures Referred By Contact Refer red To Contact Radiology Diagnoses Mass Bladder Jeanna Aguero M.B., [facility] Procedures CT Abdomen and/or Pelvis Biopsy CT Biopsy Other B.Ch., B.A.O. [address] [place] [address] Referral ID Status Reason Start Date Expiration Date Visits Requ ested Visits Authorized [id number] Closed 02/12/2022 02/12/2023 1 1 utpatient (Routine) - Closed Specialty Diagnoses / Procedures Referred By Contact Refer red To Contact Radiology Diagnoses Hydronephrosis Jeanna Aguero M.B., [facility] Procedures IR Nephrostomy Tube Placement Left B.Ch., B.A.O. [address] [place] [phone] Referral ID Status Reason Start Date Expiration Date Visits Requ ested Visits Authorized [id number] Closed 02/12/2022 02/12/2023 1 1 Encounter Details Date Type Department Care Team Description 02/12/2022 Clinical Communication Department of Urology Jeanna Aguero in [place], B.Tj., [place] B.A.O. [address] [facility] [address] [place] [phone] Social History Tobacco Use Types Packs/Day Years [...] you attend confucianism or Patient refused 2021 zoroastrian services? Do you belong to any clubs [...] or slept in a fdc (including now)? 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 - 02/12/2022 3:17 PM CDT Addended by: JEANNA AGUERO on: 02/12/2022 03:17 PM Modules accepted: Orders Telephone Encounter - Jeanna Aguero M.B., Delia, B.A.O. - 02/12/2022 3:04 PM CDT Spoke with patient, , and daughter over the phone. I discussed with them the CT urogram results which showed no pelvic lymphadenopathy. There is still the left bladder mass causing partial obstruction of the UVJ with left hydronephrosis. Patient currently has mild intermittent flank pain. At this t [facility], we would recommend patient have a nephrostomy tube placed for the left kidney and obtain a percutaneous biopsy of the bladder wall given that he has an ejection fraction of 20 and he would not be able to tolerate anesthesia. They expressed understanding and they would like to proceed with this recommendation. We are going to schedule his procedure with intervention Radiology next week given thathe has multiple appointments to be done locally by his tree scout this week. They are aware that if he develops any worsening flank pain with fevers or chills he will presented to local emergency department for nephrostomy tube placement. He will also require overnight stay after nephrostomy tube buck cement for observation. They expressed understanding and would like to proceed. Telephone Encounter - Jeanna Aguero M.B., Delia, B.A.O. - 02/12/2022 9:26 AM CDT Can you let them know that I will call them today after 11 am Telephone Encounter - Leslie Edward - 02/12/2022 8:33 AM CDT Pts daughter Viri is calling wanting to schedule a time for a phone call or video visit to go over results from yesterday. Is there a time that you could call or orders that could be placed for a phone or vv? They would like to go over them today or tomorrow after 11AM if possible. Their best callback number is: [phone] Thank you! documented in this encounter Plan of Treatment Upcoming Encounters Date Type Specialty Care Team Description 08/20/2022 Appointment Radiology Claude Loaiza MPAS, P.A.-CJluis [address] [place] [address] [phone] (Wo rk) 08/20/2022 Appointment Radiology Claude Loaiza MPAS, P.A.-Aram. [address] [place] [address] [phone] (Wo rk) 08/22/2022 Virtual Visit Urology Gibran Ruvalcaba M.D. [address] [place] [address] [phone] (Wo rk) documented as of this encounter Results IR Nephrostomy Tube Placement [...] analysis. 3. Exchange in 12 weeks. EP Jeanna Heredia Barb Sevilla, BMi, B.A.O. IMG IR PROCEDURES CT Abdomen and/or Pelvis Biopsy (02/18/2022 8:54 [...] taken utilizi ng an 18-gauge biopsy device. ?? TARGET LOCATION: [...] taken utilhemanthi shereen an 18-gauge biopsy device. TARGET LOCATION: Left bladder mass BIOPSY INSTRUMENT: intermediate Ba rd NUMBER OF SAMPLES OBTAINED: 6 COMPLICATION: None BLOOD LOSS: Minimal PATIENT INSTRUCTIONS: Patient may be dis missed from the radiology department when dismissal criteria met. POST-PROCEDURE DIAGNOSIS: Left bladder m ass IMPRESSION: CT-guided left bladder mass biopsy. EP Jeanna Sevilla, B.Ch., B.A.O. IMG CT PROCEDURES documented in this encounter Visit Diagnoses Diagnosis Hydronephrosis - Primary Mass Bladder Hydronephrosis Malignant Neoplasm Of Bladder (HCC) - Pr imary Mass Bladder Retention Urinary documented in this encounter Care Teams Instructional Technology Coordinator Relationship Specialty Start Date End Date Elsewhere, Pcp PCP - General Internal Medicine 01/14/22 documented as of this encounter
--- OUTSIDE RECORDS SUMMARY | 2022-07-31 11:35 | XMS_ITS | Encounter Summary ---
:1935 Author Organization [facility] Address [address] [place] [address] Care Team Providers Name Role Phone Elsewhere, Pcp Primary Care Provider Unavailable Encounter Details Date Type Department Care Team Description 02/13/2022 Clinical Communication Department of Urology David Day in [place], Juan., B.Ch., [place] B.A.O. [address] [facility] [address] [place] [phone] Social History Tobacco Use Types Packs/Day Years [...] or relatives? How often do you attend voodoo or Patient refused 2021 sabianism services? 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 [address] [place] [address] [phone] (Wo rk) 08/20/2022 Appointment Radiology Claude Loaiza MPAS, P.A.-C. [address] [place] [address] [phone] (Wo rk) 08/22/2022 Virtual Visit Urology Gibran Ruvalcaba M.D. [address] [place] [address] [phone] (Wo rk) documented as of this encounter Visit Diagnoses Diagnosis Hydronephrosis - Primary documented in this encounter Care Teams Architect Manager Relationship Specialty Start Date End Date Elsewhere, Pcp PCP - General Internal Medicine 01/14/22 documented as of this encounter
--- OUTSIDE RECORDS SUMMARY | 2022-07-31 11:35 | XMS_ITS | Encounter Summary ---
:1935 Author Organization [facility] Address [address] [place] [address] Care Team Providers Name Role Phone Elsewhere, Pcp Primary Care Provider Unavailable Encounter Details Date Type Department Care Team Description 02/14/2022 Clinical Communication Department of Urology Lisbeth Nguyen in [facility] [phone] [address] [facility] (Work) [place] [address] Social History Tobacco Use Types Packs/Day Years [...] or relatives? How often do you attend hindu or Patient refused 2021 confucianist services? Do you belong to any clubs or No 05/17/2022 organizations such as hindu groups, unions, fraternal or athletic groups, or [...] SECTION CUTTER documented as of this encounter Plan of Treatment Upcoming Encounters Date Type Specialty Care Team Description 08/20/2022 Appointment Radiology Claude Loaiza MPAS PTarun-C. [address] [place] [address] [phone] (Wo rk) 08/20/2022 Appointment Radiology Claude Loaiza MPAS P.AJluis-C. [address] [place] [address] [phone] (Wo rk) 08/22/2022 Virtual Visit Urology Gibran Ruvalcaba M.D. [address] [place] [address] [phone] (Wo rk) documented as of this encounter Visit Diagnoses Not on filedocumented in this encounter Care Teams Bed Manager Relationship Specialty Start Date End Date Elsewhere, Pcp PCP - General Internal Medicine 01/14/22 documented as of this encounter
--- OUTSIDE RECORDS SUMMARY | 2022-07-31 11:36 | XMS_ITS | Encounter Summary ---
:1935 Author Organization [facility] Address [address] [place] [address] Care Team Providers Name Role Phone Unavailable Primary Care Provider Unavailable Reason for Visit Appointment Request (Routine) - Closed Specialty Diagnoses / Procedures Referred By Contact Refer red To Contact Nephrology and Slava Edwards Hypertension Ashtyn [address] [place] [address] Referral ID Status Reason Start Date Expiration Date Visits Requ ested Visits Authorized [id number] Closed 08/03/2020 08/03/2021 1 1 Encounter Details Date Type Department Care Team Description 08/23/2020 External Outreach Division of Nida Castro on And Nephrology and Ross Chiu Jr., Chronic Kidn ey Hypertension in D.O. Disease Stage 1 To 4 [place], [place] [address] [facility] [address] [place] [phone] Social History Tobacco Use Types Packs/Day Years [...] or relatives? How often do you attend advent or Patient refused 2021 mosque services? 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 - 08/23/2020 4:00 PM CST NO show [place] CKD FIXER documented in this encounter Plan of Treatment Upcoming Encounters Date Type Specialty Care Team Description 08/20/2022 Appointment Radiology Claude Loaiza MPAS, Ulises.-CJluis [address] [place] [address] [phone] (Wo fermin) 08/20/2022 Appointment Radiology Claude Loaiza MPAS, P.A.-CJluis [address] [place] [address] [phone] (Wo rk) 08/22/2022 Virtual Visit Urology Gibrna Ruvalcaba M.D. [address] [place] [address] [phone] (Wo rk) documented as of this encounter Visit Diagnoses Diagnosis Hypertension And Chronic Kidney Disease Stage 1 To 4 documented in this encounter
--- OUTSIDE RECORDS SUMMARY | 2022-07-31 11:36 | XMS_ITS | Encounter Summary ---
:1935 Author Organization [facility] Address [address] [place] [address] Care Team Providers Name Role Phone Unavailable Primary Care Provider Unavailable Reason for Referral Outpatient (Routine) - Closed Specialty Diagnoses / Procedures Referred By Contact Refer red To Contact Dermatology Aashish Pandey M.D . [facility] Region [address] [place] [address] Referral ID Status Reason Start Date Expiration Date Visits Requ ested Visits Authorized [id number] Closed 08/03/2019 08/02/2020 1 1 Reason for Visit Reason Comments Follow-up Appointment Request (Routine) - Closed Specialty Diagnoses / Procedures Referred By Contact Refer red To Contact Dermatology Referral ID Status Reason Start Date Expiration Date Visits Requ ested Visits Authorized [id number] Closed 05/25/2019 05/24/2020 1 Encounter Details Date Type Department Care Team Description 08/03/2019 Office Visit Department of Aashish Pandey, Keratosis Actinic (Primary Dx); Dermatology in [place] Cancer Skin Squamous Cell Personal Histo [place], [place] [address] [place] [phone] Social History Tobacco Use Types Packs/Day Years [...] you attend uatsdin or Patient refused 2021 jainism services? Do you belong to any clubs or No 05/17/2022 organizations such as uatsdin groups, unions, fraJapan Carlife Assist or athletic groups, or school groups? How [...] place to sleep or slept in a skilled nursing (including now)? 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 - 08/03/2019 8:00 AM CDT SUBJECTIVE CHIEF COMPLAINT/REASON FOR VISIT 1. Recheck actinic keratoses 2. Recheck Mohs surgery site for squamous cell carcinoma involving left pre-auricular HISTORY OF THE PRESENT ILLNESS Henok Chery is a pleasant 84 y.o. 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 At our last visit on 06/29/19, we treated 10 actinic keratoses involving the face with liquid nitrogen cryotherapy. 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 Juarez at [facility]. 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 The largest of his squamous cell carcinomas involving his left cheek was initially treated with CO2 laser in [place] and then Mohs surgery thereafter. He also has a history of multiple actinic keratoses involving his face and underwent 40% TCA peel for the actinic keratoses and actinic damage involving his face at [facility] in on 12/10/17??under the care of Dr. Hare. MEDICAL HISTORY 1. 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 Hare??at [facility] on 10/27/17 2. 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 Juarez at [facility] OBJECTIVE PHYSICAL EXAMINATION General: Awake, alert, in no acute distress, and with appropriate affect. Skin: Examination of the left pre-auricular reveals no evidence for recurrence of squamous cell carcinoma. The recent Mohs surgery site is healing well with no evidence for infection. Examination of the face and upper extremities reveals actinic keratoses, including the face x20, right ear helix x2, left ear helix x2, right hand x3, right arm x1 and left hand x1. ASSESSMENT/PLAN #1 Face and upper extremities: Actinic keratosis x29 CONSENT Discussed the risks, benefits, alternatives, and the necessity of other members of the healthcare team participating in the procedure. All questions answered and consent given. PROCEDURE INFORMATION Given the precancerous nature of this lesion(s), treatment is medically indicated. After discussion of the risks, benefits and alternatives to treatment with cryotherapy, informed consent was obtained.We treated a total of 29 lesion(s) with two 28-04-hlchhp freeze-thaw cycles of liquid nitrogen cryoth erapy. The patient tolerated the procedure well. Aftercare instructions were provided in written andverbal form to the patient. Should any of these lesions recur, the patient should return for biopsy or further evaluation. We discussed Efudex cream as another treatment option, the patient defers at this time. Follow up in September for recheck of actinic keratoses. #2 Left pre-auricular: History of invasive well-differentiated squamous cell carcinoma, status post Mohs surgery on 07/27/[address] Juarez at [facility] No clinical evidence of local recurrence today. Recommended monthly self-skin examinations to evaluate for new, changing, symptomatic, or otherwise worrisome lesions. Signs and symptoms of skin cancer discussed. Photoprotection was recommended. We previously discussed the importance of getting annual full skin checks, however the patient has not been interested in getting one. Follow up immediately if any new or changing lesions are noted. PATIENT EDUCATION: Ready to learn. No apparent learning barriers were identified. Learning preferences include listening. Explained diagnosis and treatment plan; patient/guardian of patient expressed understanding of thecontent. By signing my name below, I, Davion Beard, attest that this documentation has been prepared under thedirection and in the presence of Aashish Pandey M.D. Electronically Signed: cookie Kelly. 08/03/2019. 8:14 AM. IAashish M.D., personally performed the services described in this documentation. All medical record entries made by the scribe were at my direction and in my presence. I have reviewed the chart and discharge instructions (if applicable) and agree that the record reflects my personal performance and is accurate and complete. Aashish Pandey M.D. . 08/03/2019. 8:54 AM. documented in this encounter Plan of Treatment Upcoming Encounters Date Type Specialty Care Team Description 08/20/2022 Appointment Radiology Claude Loaiza MPAS, P.A.-C. [address] [place], [place] [phone] (Wo rk) 08/20/2022 Appointment Radiology Claude Loaiza MPAS, P.AJluis-Aram. 200 [place], [place] [phone] (Wo rk) 08/22/2022 Virtual Visit Urology Gibran Ruvalcaba M.D. [address] [place], [place] [phone] (Wo rk) Scheduled Referrals Name Type Priority Associated Order Schedule Diagnoses Dermatology office Outpatient Referral Routine Ex pected: visit (clinic) 08/03/2019 (Approximate), Expires: 08/03/2022 documented as of this encounter Visit Diagnoses Diagnosis Keratosis Actinic - Primary Cancer Skin Squamous Cell Personal Histo ry documented in this encounter
--- OUTSIDE RECORDS SUMMARY | 2022-07-31 11:36 | XMS_ITS | Encounter Summary ---
:1935 Author Organization [facility] Address [address] [place] [address] Care Team Providers Name Role Phone Unavailable Primary Care Provider Unavailable Encounter Details Date Type Department Care Team Description 06/07/2019 Orders Only Department of Aashish Pandey, [place] (Primary Dermatology in [place] ) [address] [address] [phone] Social History Tobacco Use Types Packs/Day Years [...] you attend gnosticism or Patient refused 2021 evangelical services? 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 [address] [place] [address] [phone] (Wo rk) 08/20/2022 Appointment Radiology Claude Loaiza MPAS, P.A.-C. [address] [place] [address] [phone] (Wo rk) 08/22/2022 Virtual Visit Urology Gibran Ruvalcaba M.D. [address] [place] [address] [phone] (Wo rk) Scheduled Orders Name Type Priority Associated Diagnoses Order S chedule Dermatology misc minor Dermatology Routine Lesion Skin Expec kathleen: 06/29/2019 procedure (Approximate), Expires: 2021 documented as of this encounter Visit Diagnoses Diagnosis Lesion Skin - Primary documented in this encounter
--- OUTSIDE RECORDS SUMMARY | 2022-07-31 11:36 | XMS_ITS | Encounter Summary ---
:1935 Author Organization [facility] Address [address] [place] [address] Care Team Providers Name Role Phone Unavailable Primary Care Provider Unavailable Reason for Referral Outpatient (Routine) - Closed Specialty Diagnoses / Procedures Referred By Contact Refer red To Contact Dermatology Aashish Pandey M.D . [facility] Region [address] [place] [phone] Referral ID Status Reason Start Date Expiration Date Visits Requ ested Visits Authorized Closed 05/01/2020 05/01/2021 1 1 Scheduling Instructions Return visit in 2-3 months. 30 minutes Reason for Visit Reason Comments Skin Check Encounter Details Date Type Department Care Team Description 05/01/2020 Office Visit Department of Aashish Pandey, Keratosis Actinic Dermatology in [place] (Primary Dx) [place], [place] [address] [phone] Social History Tobacco Use Types Packs/Day Years [...] you attend hoahaoism or Patient refused 2021 roman catholic services? Do you belong to any clubs or No 05/17/2022 organizations such as hoahaoism groups, unions, fraBlockTrail or athletic groups, or school groups? 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 - 05/01/2020 8:15 AM CDT SUBJECTIVE CHIEF COMPLAINT / REASON FOR VISIT Skin cancer recheck HISTORY OF PRESENT ILLNESS Mr. Henok Chery is a 84 y.o. male who presents today for a full skin cancer screening examination. The patient has a history of multiple nonmelanoma skin cancers involving his face. The patient denies a personal or family history for melanoma. No areas of concern today. Allergies Allergen Reactions ??? Penicillins Anaphylaxis MEDICAL HISTORY 1. 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 Hare??at [facility] on 10/27/17 2. Squamous cell carcinoma in [...] Invasive well-differentiated squamous cell carcinoma involving left pre- auricular, status post Mohs surgery on 07/27/[address] Juarez at [facility] 6. Negative for melanoma FAMILY HISTORY No family history for melanoma. OBJECTIVE PHYSICAL EXAMINATION General: Awake, alert, in no acute distress, and with appropriate affect. Eyes: No scleral injection or icterus. No eyelid abnormalities. Lymph: No lymphadenopathy on examination of head and neck or axilla Skin: Examination of his scalp, face, ears, distal arms and hands were done in clinic today. No evidence for recurrence of his multiple nonmelanoma skin cancers involving his face, ears, or left forearm. Examination of his skin today reveals a total of 57 actinic keratoses including 2 involving the right lateral eyebrow, 3 involving the right upper cheek, 4 involving the right preauricular area, 4 involving the right ear helix, 6 involving the right central cheek, 5 on the nasal bridge, 4 on the forehead, 5 on the left preauricular area, 4 involving the left cheek, 3 on the left jawline, 2 involving the left lateral nasal bridge, 5 involving the left ear helix. He also has 1 AK involving the [id number] dorsal finger and 1 involving the right 4th dorsal finger, 2 involving the left dorsal hand, 1 involving left dorsal 2nd finger, and 3 involving the mustache/vermilion border area and 1 involving the left lateral vermilion border of the upper lip. Otherwise he has multiple benign nevi and lentigines involving his face and distal arms. No evidence for recurrence of previous nonmelanoma skin cancers. ASSESSMENT / PLAN #1 Multiple actinic keratoses CONSENT Discussed the risks, benefits, alternatives, and the necessity of other members of the healthcare team participating in the procedure. All questions answered and consent given. PROCEDURE INFORMATION Given the precancerous nature of this lesion(s), treatment is medically indicated. After discussion of the risks, benefits and alternatives to treatment with cryotherapy, informed consent was obtained.We treated a total of 57 lesion(s) with two 20-second freeze-thaw cycles of liquid nitrogen cryotherapy. The patient tolerated the procedure well. Aftercare instructions were provided in written and verbal form to the patient. Should any of these lesions recur, the patient should return for biopsy or further evaluation. Follow-up in 2-3 months. #2 History of multiple nonmelanoma skin cancers No evidence for recurrence. Follow up in 2-3 months or immediately if any new or changing lesions are noted. PATIENT EDUCATION: Ready to learn. No apparent learning barriers were identified. Learning preferences include listening. Explained diagnosis and treatment plan; patient/guardian of patient expressed understanding of thecontent. documented in this encounter Plan of Treatment Upcoming Encounters Date Type Specialty Care Team Description 08/20/2022 Appointment Radiology Claude Loaiza MPAS, P.A.-C. [address] [place] [address] [phone] (Wo rk) 08/20/2022 Appointment Radiology Claude Loaiza MPAS, P.A.-C. [address] [place] [address] [phone] (Wo rk) 08/22/2022 Virtual Visit Urology Gibran Ruvalcaba M.D. [address] [place] [address] [phone] (Wo rk) Scheduled Referrals Name Type Priority Associated Order Schedule Diagnoses Dermatology office Outpatient Referral Routine Ex pected: visit (clinic) 08/01/2020 (Approximate), Expires: 05/01/2023 documented as of this encounter Visit Diagnoses Diagnosis Keratosis Actinic - Primary documented in this encounter
--- OUTSIDE RECORDS SUMMARY | 2022-07-31 11:36 | XMS_ITS | Encounter Summary ---
:1935 Author Organization [facility] Address [address] [place] [address] Care Team Providers Name Role Phone Unavailable Primary Care Provider Unavailable Reason for Visit Appointment Request (Routine) - Closed Specialty Diagnoses / Procedures Referred By Contact Refer red To Contact Procedures Aashish Pandey M.D. [facility] 1-[address] sites [address] [place] [address] [phone] Referral ID Status Reason Start Date Expiration Date Visits Requ ested Visits Authorized [id number] Closed 07/12/2019 07/11/2020 1 Encounter Details Date Type Department Care Team Description 07/27/2019 Procedure visit Department of Khadar Juarez, Keratosi s Actinic (Primary Dx); Dermatology in M.D. Malignant Neoplasm Of Face Squamous Cell [place], [place] [address] [facility] [address] [place] [phone] Social History Tobacco Use Types Packs/Day Years [...] you attend sikh or Patient refused 2021 caodaism services? 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 - 07/27/2019 8:00 AM CDT PREOP INDICATION: REMOVAL. Date of Surgery: 07/27/2019 Surgeon: Dr. Juarez Circular Knitter Helper: Dr. Heath Location: [facility] Floor:16 Room:[facility] Visit Type: Outpatient PostOp Diagnosis: Invasive well-differentiated squamous cell carcinoma Anatomic Location: Left preauricular cheek Preoperative size: 0.8 x 0.9 cm [facility] number: [id number] Procedure: Mohs micrographic surgery with intermediate layered closure Prior to the procedure, final verification of the patient identity and correct marked surgical site was performed. Procedural pause conducted to verify: correct patient identity, procedure to be performed and as applicable, correct side and site, correct patient position, and availability of implants, special equipment or special requirements. INFORMED CONSENT Discussed the risks, benefits, alternatives, and the necessity of other members of the healthcare team participating in the procedure. All questions answered and consent given. PATIENT EDUCATION Ready to learn, no apparent learning barriers were identified; learning preferences include listening. Explained diagnosis and treatment plan; patient expressed understanding of the content. Preoperative medications: None The anesthesia used was 1% lidocaine and 0.25% bupivacaine with 1:200,000 epinephrine. The skin was prepped in a sterile fashion with Hibiclens. Histologic tumor-free margins were obtained in 1 stages (2 blocks) by standard Mohs micrographic techniques with the Mohs surgeon performing both the surgery and pathology. Postoperative size: 1.0 x 1.0 cm. Anesthesia with 1% lidocaine with 1:200,000 epinephrine and another sterile prep were performed. An intermediate layered closure was planned, and Burow's triangles were excised from opposite poles of the defect in the direction of the skin tension lines. Hemostasis was obtained with electrocoagulation. The wound edges were closed with 5 Monocryl subcutaneous sutures and Dermabond in lieu of skin sutures. Postoperative length: 3.0 cm. Estimated blood loss: Minimal. Complications: None. Wound care: Routine. Postoperative medications: None documented in this encounter Consult Notes Shelley Heath M.D. - 07/27/2019 8:00 AM CDT Referral Aashish Pandey M.D. Chief Complaint Invasive well-differentiated squamous cell carcinoma, left preauricular cheek Supervised by Dr. Juarez HISTORY OF PRESENT ILLNESS is a very pleasant 84 y.o. male who presents today for treatment of an invasive well-differentiated squamous cell carcinoma of the left preauricular cheek. This was initially biopsied in May of 2019, showing a squamous cell carcinoma. He also had a biopsy from the right nasal sidewall which showed a squamous cell carcinoma. When he re-presented to Dr. Pandey in early June, the sites were re-biopsied per patient request. The 1 on the right nasal sidewall showed no residual squamous cell carcinoma and instead showed Demodex folliculitis. The area on the left preauricular cheek however showed invasive well-differentiated squamous cell carcinoma. Would also like us to evaluate other scaly areas on his face. The dermatologic surgery preoperative information sheet was reviewed. He has a prior history multiple nonmelanoma skin cancers, diabetes, hypertension, polycythemia vera. He takes aspirin. He does not use tobacco and occasionally uses alcohol. The patient denies history of heart disease, pacemaker, def ibrillator, lung disease, liver disease, stroke, infectious diseases (including hepatitis B, hepatitis C, or HIV), diabetes, organ transplant, bleeding or health problems. The patient denies artificialjoints or other implants. PHYSICAL EXAM Vitals: BP 112/66, HR 67 General: No acute distress. Pleasant and cooperative. Alert and oriented. Skin: Limited examination was performed per request. On the left preauricular cheek is a 0.8 x 0.9 cm scar. He has scattered diffuse actinic damage on his face particularly the cheeks. Lymph: No palpable lymphadenopathy in the parotid, submandibular, cervical, or supraclavicular regions bilaterally. IMPRESSION/REPORT/PLAN #1 Invasive well-differentiated squamous cell carcinoma, left preauricular cheek We discussed with the patient our recommendation for Mohs micrographic surgery to treat this today. We discussed the risks of pain, infection, bleeding, dysesthesia, lesion recurrence, activity limitations. The patient understands that there will be a scar at this site. We discussed potential reconstru ction/wound healing options. The patient elected to proceed with Mohs surgery today. Please see the operative note for further detail. #2 Diffuse actinic damage Given the diffuse nature of his actinic damage, we recommend field therapy. He had a TCA peel the past with some mild benefit. We recommend consideration of Efudex topically twice daily for 3 weeks to treat the pre cancerous lesions. He will plan to do this under the direction of Dr. Pandey once his Mohs site has healed. PROCEDURAL PAUSE Procedural pause conducted to verify: correct patient identity, procedure to be performed, and as applicable, correct side and site, correct patient position, and availability of implants, special equipment, or special requirements. PATIENT EDUCATION Ready to learn. No apparent learning barriers were identified. Learning preferences include listening. Explained diagnosis and treatment plan; patient/guardian of patient expressed understanding of thecontent. INFORMED CONSENT Discussed the risks, benefits, alternatives, and the necessity of other members of the healthcare team participating in the procedure. All questions answered and consent given. Associated attestation - Khadar Juarez M.D. - 07/27/2019 1:04 PM CDT I was present during all critical and andrade portions of the procedure(s) and immediately available to furnish services the entire duration. See resident note for details. documented in this encounter Plan of Treatment Upcoming Encounters Date Type Specialty Care Team Description 08/20/2022 Appointment Radiology Claude Loaiza MPAS, P.A.-C. [address] [place] [address] [phone] (Wo rk) 08/20/2022 Appointment Radiology Claude Loaiza MPAS, P.A.-C. [address] [place] [address] [phone] (Wo rk) 08/22/2022 Virtual Visit Urology Gibran Ruvalcaba M.D. [address] [place] [address] [phone] (Wo rk) documented as of this encounter Visit Diagnoses Diagnosis Keratosis Actinic - Primary Malignant Neoplasm Of Face Squamous Cell documented in this encounter Administered Medications Inactive Administered Medications - up to 3 most recent administrations Medication Order MAR Action Action Date Dose Rate Site ovdonzbxemj-iuypjeaoa-VTCPLPZovfn Given 07/27/2019 9:35 AM CDT 2 mL 0.25%-1%-1:200,000 injection 2-25 mL 2-25 mL, injection, As needed, may repeat if the patient complains of pain/discomfort at the site up to 50 mL for entire procedure, Starting on Fri07/27/19 at 0837 lidocaine-EPINEPHrine 1%-1:200,000 injection Given 07/27/2019 8: 30 AM CDT 6 mL 2-50 mL (XYLOCAINE W/EPI) 2-50 mL, injection, As needed, may repeat if the patient complains of pain/discomfort at the site up to 50 mL for entire procedure, Starting on Fri07/27/19 at 0837 documented in this encounter
--- OUTSIDE RECORDS SUMMARY | 2022-07-31 11:36 | XMS_ITS | Encounter Summary ---
:1935 Author Organization [facility] Address [address] [place] [address] Care Team Providers Name Role Phone Unavailable Primary Care Provider Unavailable Reason for Referral Appointment Request (Routine) - Closed Specialty Diagnoses / Procedures Referred By Contact Refer red To Contact Procedures Aashish Pandey M.D. 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 Do you belong to any clubs or No 05/17/2022 organizations such as buddhist groups, unions, fraDiningCircle or athletic groups, or school groups? 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 [address] [place] [address] [phone] (Octavio christensen) 08/20/2022 Appointment Radiology Claude Loaiza MPAS, P.A.-C. [address] [place] [address] [phone] (Octavio christensen) 08/22/2022 Virtual Visit Urology Gibran Ruvalcaba M.D. 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
--- OUTSIDE RECORDS SUMMARY | 2022-07-31 11:36 | XMS_ITS | Encounter Summary ---
:1935 Author Organization [facility] Address [address] [place] [address] Care Team Providers Name Role Phone Unavailable Primary Care Provider Unavailable Encounter Details Date Type Department Care Team Description 07/27/2019 Ancillary Procedure Department of Dermatology Social History Tobacco Use Types Packs/Day Years [...] or relatives? How often do you attend tenriism or Patient refused 2021 congregation services? 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 [address] [place] [address] [phone] (Wo rk) 08/20/2022 Appointment Radiology Claude Loaiza MPAS, P.A.-C. [address] [place] [address] [phone] (Wo rk) 08/22/2022 Virtual Visit Urology Gibran Ruvalcaba M.D. [address] [place], [place] [phone] (Wo rk) documented as of this encounter Procedures Procedure Name Priority Date/Time Associated Comments Diagnosis DERMATOLOGY IMAGE Routine 07/27/2019 12:05 Result s for this EXAM PM CDT procedure are i n the results section. documented in this encounter Results cheek, left preauricular 11 Mohs micrographic surgery-Dermatology Image Exam (07/27/2019 12:05 PM CDT) Specimen (Source) Anatomical Collection Method Collection Time Re ceived Time Location / / Volume Laterality 07/27/2019 12:00 PM CDT Narrative [facility] - 07/27/2019 12:21 PM CDT This order has been created and auto-finalized to support the import of images acquired without order. The clini anna documentation to support these images can be found on the encounter thomas t produced images. Provider Not In System IMG NON RAD IMAGING PROCEDUR ES Performing Organization Address City/State/ZIP Code Phon e Number I[facility] NA documented in this encounter Visit Diagnoses Not on filedocumented in this encounter
--- OUTSIDE RECORDS SUMMARY | 2022-07-31 11:36 | XMS_ITS | Encounter Summary ---
:1935 Author Organization [facility] Address [address] [place] [address] Care Team Providers Name Role Phone Unavailable Primary Care Provider Unavailable Encounter Details Date Type Department Care Team Description 06/29/2019 Ancillary Procedure Department of Dermatology Social History [...] you attend spiritism or Patient refused 2021 baptist services? 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 [address] [place] [address] [phone] (Wo rk) 08/20/2022 Appointment Radiology Claude Loaiza MPAS, P.A.-C. [address] [place] [address] [phone] (Wo rk) 08/22/2022 Virtual Visit Urology Gibran Ruvalcaba M.D. [address] [place] [address] [phone] (Wo rk) documented as of this encounter Procedures Procedure Name Priority Date/Time Associated Comments Diagnosis DERMATOLOGY IMAGE Routine 06/29/2019 9:10 AM Resu lts for this EXAM CDT procedure are i n the results section. documented in this encounter Results cheek, left preauricular 11-Dermatology Image Exam (06/29/2019 9:10 AM CDT) Specimen (Source) Anatomical Collection Method Collection Time Re ceived Time Location / / Volume Laterality 06/29/2019 9:05 AM CDT Narrative [facility] - 06/29/2019 9:11 AM CDT This order has been created and [...]
--- OUTSIDE RECORDS SUMMARY | 2022-07-31 11:36 | XMS_ITS | Encounter Summary ---
:1935 Author Organization [facility] Address [address] [place] [address]67 Care Team Providers Name Role Phone Unavailable Primary Care Provider Unavailable Encounter Details Date Type Department Care Team Description 04/19/2019 Ancillary Procedure Department of Dermatology Social History [...] or relatives? How often do you attend scientologist or Patient refused 2021 oriental orthodox services? 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 [address] [place] [address] [phone] (Wo rk) 08/20/2022 Appointment Radiology Claude Loaiza MPAS, P.A.-C. [address] [place] [address] [phone] (Wo rk) 08/22/2022 Virtual Visit Urology Gibran Ruvalcaba M.D. [address] [place] [address] [phone] (Wo rk) documented as of this encounter Procedures Procedure Name Priority Date/Time Associated Comments Diagnosis DERMATOLOGY IMAGE Routine 04/19/2019 9:20 AM Resu lts for this EXAM CDT procedure are i n the results section. documented in this encounter Results nose, right nasal sidewall 18-Dermatology Image Exam (04/19/2019 9:20 AM CDT) Specimen (Source) Anatomical Collection Method Collection Time Re ceived Time Location / / Volume Laterality 04/19/2019 9:20 AM CDT Narrative [facility] - 04/19/2019 9:23 AM CDT This order has been created [...]
--- OUTSIDE RECORDS SUMMARY | 2022-07-31 11:36 | XMS_ITS | Encounter Summary ---
:1935 Author Organization [facility] Address [address] [place] [address] Care Team Providers Name Role Phone Unavailable Primary Care Provider Unavailable Encounter Details Date Type Department Care Team Description 08/02/2019 Clinical Communication Department of Shanta Pena V., Dermatology in [address] [phone] Social History Tobacco Use Types Packs/Day Years [...] or relatives? How often do you attend moravian or Patient refused 2021 christian services? 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 - 08/02/2019 11:37 AM CDT noted Telephone Encounter - aHily Reddy - 08/02/2019 11:00 AM CDT Patient's said that they will be here for the appt tomorrow, 08/03. Telephone Encounter - Shanta Pena R.N. - 08/02/2019 10:27 AM CDT Attempted to call patient to confirm appointment. No answer left voicemail for patient to return phone call. documented in this encounter Plan of Treatment Upcoming Encounters Date Type Specialty Care Team Description 08/20/2022 Appointment Radiology Claude Loaiza MPAS, Karlene-CJluis [address] [place] [address] [phone] (cOtavio christensen) 08/20/2022 Appointment Radiology Claude Loaiza MPAS, P.A.-C. [address] [place] [address] [phone] (Octavio christensen) 08/22/2022 Virtual Visit Urology Gibran Ruvalcaba M.D. [address] [place], [place] [phone] (Octavio christensen) documented as of this encounter Visit Diagnoses Not on filedocumented in this encounter
--- OUTSIDE RECORDS SUMMARY | 2022-07-31 11:36 | XMS_ITS | Encounter Summary ---
:1935 Author Organization [facility] Address [address] [place] [address] Care Team Providers Name Role Phone Unavailable Primary Care Provider Unavailable Encounter Details Date Type Department Care Team Description 07/31/2020 Clinical Communication Department of Aashish Pandey, Dermatology in [place], [place] [address] [place] [phone] Social History Tobacco Use Types Packs/Day Years [...] you attend baptist or Patient refused 2021 latter day services? [...] place to sleep or slept in a chcf (including now)? 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 To secure an appointment, please respond with your appointment time preferences (e.g. day of week, time of day, etc.) that would be close to the expected date that was requested. You can also reach us at your clinic appointment line if you would prefer to schedule this over the phone between 7 am-6 pm, Friday-Friday. [place]: [phone] [place]: [phone] [place]: [phone] [place]: [phone] [place]: [phone] [place]: [phone] [facility]: [phone] Andres Laurent [place], [place], [facility]: [phone] [place]:[phone] [place]: [phone] Thank you for trusting your health care to [facility]. documented in this encounter Plan of Treatment Upcoming Encounters Date Type Specialty Care Team Description 08/20/2022 Appointment Radiology Claude Loaiza MPAS, P.A.-C. [address] [place] [address] [phone] (Octavio christensen) 08/20/2022 Appointment Radiology Claude Loaiza MPAS, P.A.-C. [address] [place] [address] [phone] (Octavio christensen) 08/22/2022 Virtual Visit Urology Girban Ruvalcaba M.D. [address] [place] [address] [phone] (Wo rk) documented as of this encounter Visit Diagnoses Not on filedocumented in this encounter
--- OUTSIDE RECORDS SUMMARY | 2022-07-31 11:36 | XMS_ITS | Encounter Summary ---
:1935 Author Organization [facility] Address [address] [place] [address] Care Team Providers Name Role Phone Unavailable [...] you attend lutheran or Patient refused 2021 baptism services? 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 [address] [place] [address] [phone] (Wo rk) 08/20/2022 Appointment Radiology Claude Loaiza MPAS, P.A.-C. [address] [place] [address] [phone] (Wo rk) 08/22/2022 Virtual Visit Urology Gibran Ruvalcaba M.D. [address] [facility], [place] 55 [phone] (Wo rk) documented as of this encounter Procedures Procedure Name Priority Date/Time Associated Comments Diagnosis DERMATOLOGY IMAGE Routine 07/27/2019 12:00 Result s for this EXAM PM CDT procedure are i n the results section. documented in this encounter Results cheek, left preauricular 11 Mohs micrographic surgery-Dermatology Image Exam (07/27/2019 12:00 PM CDT) Specimen (Source) Anatomical Collection Method Collection Time Re ceived Time Location / / Volume Laterality 07/27/2019 12:00 PM CDT Narrative [facility] - 07/27/2019 12:20 PM CDT This order has been created [...]
--- OUTSIDE RECORDS SUMMARY | 2022-07-31 11:36 | XMS_ITS | Encounter Summary ---
:1935 Author Organization [facility] Address [address] [place] [address] Care Team Providers Name Role Phone Unavailable Primary Care Provider Unavailable Reason for Visit Reason Onset Date Comments biopsy results 06/07/2019 Encounter Details Date Type Department Care Team Description 06/07/2019 Clinical Communication Department of Becky Trinidad biopsy results Medicine, Franck Newby M.D. [facility], in [address] [place] [phone] [place] [address] [place], [place] (Work) [phone] Social History Tobacco Use Types Packs/Day Years [...] you attend sikhism or Patient refused 2021 islam services? 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 Please call her at [phone] documented in this encounter Plan of Treatment Upcoming Encounters Date Type Specialty Care Team Description 08/20/2022 Appointment Radiology Claude Loaiza MPAS, P.A.-C. [address] [place] [address] [phone] (Wo rk) 08/20/2022 Appointment Radiology Claude Loaiza MPAS, P.A.-C. [address] [place] [address] 55 [phone] (Wo rk) 08/22/2022 Virtual Visit Urology Gibran Ruvalcaba M.D. [address] [place] [address] [phone] (Wo rk) documented as of this encounter Visit Diagnoses Not on filedocumented in this encounter
--- OUTSIDE RECORDS SUMMARY | 2022-07-31 11:36 | XMS_ITS | Encounter Summary ---
:1935 Author Organization [facility] Address [address] [place] [address] Care Team Providers Name Role Phone Unavailable Primary Care Provider Unavailable Reason for Visit Reason Comments Biopsy Encounter Details Date Type Department Care Team Description 05/25/2019 Procedure visit Department of Aashish Pandey Tumor Skin Uncertain Behavior (Primary Dx); Dermatology in [place] M.D. Keratosis Actinic; [place], [place] [address] [facility] Keratosis Seborrheic Inflamed [address] [place] [id number] Social History Tobacco Use Types Packs/Day Years [...] or relatives? How often do you attend islam or Patient refused 2021 uatsdin services? 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 - 05/25/2019 10:30 AM CDT SUBJECTIVE CHIEF COMPLAINT/REASON FOR VISIT Return for biopsy of the right mid lateral nasal bridge HISTORY OF THE PRESENT ILLNESS Henok Chery is a pleasant 83 y.o. male accompanied by his who follows up for a shave biopsy of the right mid lateral nasal bridge to rule out basal cell carcinoma versus squamous cell carcinoma. 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 The largest of his squamous cell carcinomas involving his left cheek was initially treated with CO2 laser in [place] and then Mohs surgery thereafter. 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 Hare. Additionally, the patient has concern for an irritated lesion involving the right forehead that he frequently picks at as well as some lesions above the upper lip. MEDICAL HISTORY 1. 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 Hare??at [facility] on 10/27/17 2. 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 OBJECTIVE PHYSICAL EXAMINATION General: Awake, alert, in no acute distress, and with appropriate affect. Skin: Examination of the right mid lateral nasal bridge reveals a 5 mm x 6 mm pearly papule with central erosion and slight telangiectasia. Examination of the right forehead reveals an irritated seborrheic keratosis versus irritated verrucal keratosis. Examination of the face reveals actinic keratosesincluding the right infraorbital x2, left ear helix x1, left amish x1, left upper cheek x2, right nasal tip x2, right ear helix x2, and mustache area above the upper lip x4. Examination of the left preauricular reveals a 4 mm x 5 mm slightly pearly papule. ASSESSMENT/PLAN #1 Right mid lateral nasal bridge/sidewall: Rule out nodular basal cell carcinoma We recommend a shave biopsy of the right mid lateral nasal bridge. Photograph taken 04/19/19 with patient's verbal consent. We will correspond as to the results and if any further treatment is needed. PROCEDURAL PAUSE: Procedural pause conducted to verify: correct patient identity, procedure to be performed, and as applicable, correct side and site, correct patient position, and availability of implants, special equipment, or special requirements. PROCEDURE DETAILS: Shave biopsy. We explained the potential diagnosis and recommended that we obtain a biopsy. The risks and benefitsof the procedure were discussed, and the patient consented to these procedures. The patient denies any allergies to local anesthetics. Using 1% lidocaine with epinephrine for local anesthesia, a shave biopsy was obtained from the right mid lateral nasal bridge. Biopsy submitted to Dermatopathology forH&E. Special stains will be performed as indicated. The bleeding was well controlled with application of aluminum chloride. Dressing was applied, and wound care instructions were explained. Biopsy results and any further recommendations will be communicated to the patient by letter. Patient given pamphlet [id number]. Discussed the risks, benefits, alternatives, and the necessity of other members of the healthcare team participating in the procedure. All questions answered and consent given. #2 Left preauricular: Rule out basal cell carcinoma versus poultry picker's papule We recommend a shave biopsy of the left preauricular. Photograph taken today with patient's verbal consent. We will correspond as to the results and if any further treatment is needed. PROCEDURAL PAUSE: Procedural pause conducted to verify: correct patient identity, procedure to be performed, and as applicable, correct side and site, correct patient position, and availability of implants, special equipment, or special requirements. PROCEDURE DETAILS: Shave biopsy. We explained the potential diagnosis and recommended that we obtain a biopsy. The risks and benefitsof the procedure were discussed, and the patient consented to these procedures. The patient denies any allergies to local anesthetics. Using 1% lidocaine with epinephrine for local anesthesia, a shave biopsy was obtained from the left preauricular. Biopsy submitted to Dermatopathology for H&E. Special stains will be performed as indicated. The bleeding was well controlled with application of aluminum chloride. Dressing was applied, and wound care instructions were explained. Biopsy results and any further recommendations will be communicated to the patient by letter. Patient given pamphlet [id number]. Discussed the risks, benefits, alternatives, and the necessity of other members of the healthcare team participating in the procedure. All questions answered and consent given. #3 Face: Actinic keratosis x14 CONSENT Discussed the risks, benefits, alternatives, and the necessity of other members of the healthcare team participating in the procedure. All questions answered and consent given. PROCEDURE INFORMATION Given the precancerous nature of this lesion(s), treatment is medically indicated. After discussion of the risks, benefits and alternatives to treatment with cryotherapy, informed consent was obtained.We treated a total of 14 lesion(s) with two 34-00-xdlfkl freeze-thaw cycles of liquid nitrogen cryoth erapy. The patient tolerated the procedure well. Aftercare instructions were provided in written andverbal form to the patient. Should any of these lesions recur, the patient should return for biopsy or further evaluation. Follow up in 1-2 months for recheck if these areas do not complete resolve. #4 Right forehead: Irritated seborrheic keratosis versus irritated verrucal keratosis CONSENT Discussed the risks, benefits, alternatives, and the necessity of other members of the healthcare team participating in the procedure. All questions answered and consent given. PROCEDURE INFORMATION After discussion of the risks, benefits and alternatives to treatment with cryotherapy, informed consent was obtained. We treated a total of 1 lesion(s) with two 11-92-jxbzwr freeze-thaw cycles of liquid nitrogen cryotherapy. The patient tolerated the procedure well. Aftercare instructions were provided in written and verbal form to the patient. Should any of these lesions recur, the patient should return for biopsy or further evaluation. Follow up in 1-2 months for recheck if these areas do not complete resolve. PATIENT EDUCATION: Ready to learn. No apparent learning barriers were identified. Learning preferences include listening. Explained diagnosis and treatment plan; patient/guardian of patient expressed understanding of thecontent. By signing my name below, I, Alexus Jesus, attest that this documentation has been prepared under thedirection and in the presence of Aashish Pandey M.D. Electronically Signed: cookie Elena. 05/25/2019. 10:35 AM . IAashish M.D., personally performed the services described in this documentation. All medical record entries made by the scribe were at my direction and in my presence. I have reviewed the chart and discharge instructions (if applicable) and agree that the record reflects my personal performance and is accurate and complete. Aashish Pandey M.D. . 05/25/2019. 11:40 AM. documented in this encounter Miscellaneous Notes Result Encounter Note - Aashish Pandey M.D. - 05/25/2019 10:30 AM CDT I called patient with results of the skin biopsies. I discussed that the skin biopsies taken from the left preauricular area and the right lateral nasal bridge were both read out as squamous cell carcinoma, superficially transected. I have recommended Mohs surgery at [facility]. Patient is very adamant about not going down to [facility] and would like me to treat these lesions. I discussed with him that the optimal treatment is the Mohs surgery and he understands but does not want to go havethis done. Subsequently, he will return to [place] where we will do further shave biopsies on both sites as a debulking measure in if the pathology comes back as amenable to curettage and cryotherapy we will proceed with that treatment. If after the debulking biopsies, the tumor extends deeper then I will refer him for Mohs again. He understands and likes this approach as he is not willing to [place] surgery at this time. [facility]. documented in this encounter Plan of Treatment Upcoming Encounters Date Type Specialty Care Team Description 08/20/2022 Appointment Radiology Claude Loaiza MPAS, P.A.-C. [address] [place] [address] [phone] (Wo rk) 08/20/2022 Appointment Radiology Claude Loaiza MPAS, P.A.-C. [address] [place] [address] [phone] (Wo rk) 08/22/2022 Virtual Visit Urology Gibran Ruvalcaba M.D. [address] [place] [address] [phone] (Wo rk) documented as of this encounter Procedures Procedure Name Priority Date/Time Associated Comments Diagnosis DERMATOPATHOLOGY CONSULT Routine 05/25/2019 10:51 Tumor Skin Results for this AM CDT Uncertain Behavior procedure are in the results section. documented in this encounter Results Dermatopathology Consult (05/25/2019 10:51 AM CDT) Component Value Ref Test Analysis Performed Pathologis t Range Method Time At Signature Gross A: ??Received in formalin labeled with the patient's name, 05/28/2019 Description: medical record number, and left preauricular cheek i s a 5:01 PM CDT 0.7 x 0.6 x 0.1 cm pale estrella skin shave biopsy. ??There is a 0.5 x 0.5 cm pale estrella-brown, slightly raised, firm lesion with irregular borders eccentrically located on the skin surface. ??The specimen is bisected and submitted entirely in cassette A1. Grossed by AV. B: ??Received in formalin labeled with the patient's name, medical record number, and right nasal sidewall, mid lateral nasal bridge is a 0.8 x 0.5 x 0.1 cm pale estrella skin shave biopsy. ??There is a 0.5 x 0.4 cm pale bcz-fdtlze-ixbqa, slightly raised, firm lesion with irregular borders encompassing nearly the entire skin surface. ??The specimen is bisected and submitted entirely in cassette B1. Grossed by AVJluis Report Karissa ZamanJluis 05/28/2019 electronically Macario Cisneros 5:01 PM CDT signed by 05/28/2019 5:01 PM CDT Interpetation FINAL DIAGNOSIS 05/28/2019 A. ??DermPath Consult Wet Tissue; Left preauricular cheek, 5:01 PM CDT Skin shave biopsy: ??Squamous cell carcinoma, superficially transected B. ??DermPath Consult Wet Tissue; Right nasal sidewall, mid lateral nasal bridge, Skin shave biopsy: ??Squamous cell carcinoma, superficially transected Specimen Anatomical Collection Method Collection Time Receive d Time (Source) Location / / Volume Laterality Tissue 05/25/2019 10:51 2019 9:10 AM CDT AM CDT Narrative This result has an attachment that is no t available. Aashish Pandey M.D. LAB PATH DERM ORDERABLES Performing Organization Address City/State/ZIP Code Phon e Number [facility] - [address] documented in this encounter Visit Diagnoses Diagnosis Tumor Skin Uncertain Behavior - Primary Keratosis Actinic Keratosis Seborrheic Inflamed documented in this encounter Administered Medications Inactive Administered Medications - up to 3 most recent administrations Medication Order MAR Action Action Date Dose Rate Site lidocaine-EPINEPHrine 1 %-1:100,000 Given 05/25/2019 11:00 AM CD T 1 mL injection 1 mL (XYLOCAINE W/EPI) 1 mL, infiltration, Once, On Fri05/25/19 at 1100, For 1 dose documented in this encounter
--- OUTSIDE RECORDS SUMMARY | 2022-07-31 11:36 | XMS_ITS | Encounter Summary ---
:1935 Author Organization [facility] Address [address] [place] [id number] Care Team Providers Name Role Phone Unavailable Primary Care Provider Unavailable Reason for Referral Outpatient (Routine) - Closed Specialty Diagnoses / Procedures Referred By Contact Refer red To Contact Dermatology Aashish Pandey M.D . 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 [facility] [address] [place] [phone] Referral ID Status Reason Start Date Expiration Date Visits Requ ested Visits Authorized [id number] Closed 08/03/2019 08/02/2020 1 1 Encounter Details Date Type Department Care Team Description 10/04/2019 Office Visit Department of Aashish Pandey Nevi Multi ple (Primary Dx); Dermatology in [place] Keratosis Actin; [place], [place] [address] [place] [address] Keratosis Seborrheic; [address] [place] [address] Cancer Skin Squamous Cell [place] [phone] Social History Tobacco Use Types Packs/Day Years [...] you attend gnosticist or Patient refused 2021 baptist services? 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 - 10/04/2019 10:00 AM CST SUBJECTIVE CHIEF COMPLAINT/REASON FOR VISIT Recheck actinic keratoses HISTORY OF THE PRESENT ILLNESS Henok Chery is a pleasant 84 y.o. male who presents for a recheck of actinic keratoses. During our last visit on 08/03/19, we treated 29 actinic keratoses involving the face and upper extremities with liquid nitrogen cryotherapy. 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 Juarez at [facility]. He denies a personal or family history for melanoma. The patient has no other concerns today. MEDICAL HISTORY 1. 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 Hare??at [facility] on 10/27/17 2. Squamous cell carcinoma [...] surgery on 07/27/[address] Juarez at [facility] 6. Negative for melanoma FAMILY HISTORY Negative for melanoma OBJECTIVE PHYSICAL EXAMINATION General: Awake, alert, in no acute distress, and with appropriate affect. Skin: Examination of the face and upper extremities reveals actinic keratoses, including the right zoroastrianism x2, right cheek x2, right ear antihelix x3, right ear helix x2, left cheek x7, left infra-orbital x1, left ear helix x1, right 3rd finger x1 and left forearm x1. Examination of the face and upper extremities reveals multiple benign-appearing nevi, lentigines and seborrheic keratoses. Examination underneath the left lower eyelid reveals an actinic keratosis with some irritation and minimal yellowdrainage. His does state he picks at that area with his finger a lot. No lymphadenopathy on examination of head and neck. No recurrence of previous nonmelanoma skin cancers. ASSESSMENT/PLAN #1 Face and upper extremities: Actinic keratosis x20 CONSENT Discussed the risks, benefits, alternatives, and the necessity of other members of the healthcare team participating in the procedure. All questions answered and consent given. PROCEDURE INFORMATION Given the precancerous nature of this lesion(s), treatment is medically indicated. After discussion of the risks, benefits and alternatives to treatment with cryotherapy, informed consent was obtained.We treated a total of 20 lesion(s) with two 07-89-gjlbqn freeze-thaw cycles of liquid nitrogen cryoth erapy. The patient tolerated the procedure well. Aftercare instructions were provided in written andverbal form to the patient. Should any of these lesions recur, the patient should return for biopsy or further evaluation. Follow up in 1-2 months for recheck if these areas do not complete resolve. #2 Underneath left lower eyelid margin: Irritated actinic keratosis with probable early secondary infection from picking This lesion looks like an irritated actinic keratoses was possible early infection from him picking at it. I have advised him not to pick at it and I have started him on Bactroban ointment 3 times daily for 7 days. The importance of avoiding getting it in the I was emphasized and they understand. Theywill apply it sparingly to just inferior to the left eye. The patient was recommended to apply Bactroban over the involved area three times daily for the next five- seven days. Follow up in 1 month for a recheck, immediately if worsening. #3 Face and upper extremities: Multiple nevi and lentigines The ABCDE criteria for melanoma was reviewed with the patient. None of the patient's nevi reach the clinical threshold for biopsy. I recommend continued sun protection, self-skin examinations, and observation. Should any of the patient's nevi change in size, color, texture, or shape or develop symptoms such as itching or bleeding, I recommend an immediate return visit for reassessment. Follow up in 6months or immediately if any new or changing lesions are noted. #4 Face and upper extremities: Seborrheic keratosis The benign nature of the skin lesion(s) was discussed with the patient. No treatment is required. I recommend continued observation. Should symptoms or changes develop related to this condition, I would recommend a return visit for reassessment. PATIENT EDUCATION: Ready to learn. No apparent learning barriers were identified. Learning preferences include listening. Explained diagnosis and treatment plan; patient/guardian of patient expressed understanding of thecontent. By signing my name below, Davion Dubon, attest that this documentation has been prepared under thedirection and in the presence of Aashish Pandey M.D. Electronically Signed: cookie Kelly. 10/04/2019. 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 Aashish Dubon M.D., personally performed the services described in this documentation. All medical record entries made by the scribe were at my direction and in my presence. I have reviewed the chart and discharge instructions (if applicable) and agree that the record reflects my personal performance and is accurate and complete. Aashish Pandey M.D. . 10/04/2019. 10:17 AM CAN FILLING AND CLOSING MACHINE TENDER. 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 [address] [place] [address] [phone] (Wo rk) 08/20/2022 Appointment Radiology Claude Loaiza MPAS, P.A.-C. [address] [place] [address] [phone] (Wo rk) 08/22/2022 Virtual Visit Urology Gibran Ruvalcaba M.D. [address] [place] [address] [phone] (Wo fermin) Scheduled Referrals Name Type Priority Associated Order Schedule Diagnoses Dermatology office Outpatient Referral Routine Ex pected: visit (clinic) 11/02/2019 (Approximate), Expires: 10/04/2022 documented as of this encounter Visit Diagnoses Diagnosis Nevi Multiple - Primary Keratosis Actinic Keratosis Seborrheic Cancer Skin Squamous Cell Personal Histo ry documented in this encounter
--- OUTSIDE RECORDS SUMMARY | 2022-07-31 11:36 | XMS_ITS | Encounter Summary ---
:1935 Author Organization [facility] Address [address] [place] [address] Care Team Providers Name Role Phone Elsewhere, Pcp Primary Care Provider Unavailable Encounter Details Date Type Department Care Team Description 02/07/2022 Hospital Encounter Department of Laboratory Calin Day, Mass Bladder Medicine in [place], Juan., B.Ch., [place] B.A.O. [address] [place] [phone] Social History Tobacco Use Types Packs/Day Years [...] you attend nondenominational or Patient refused 2021 worship services? 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 [address] [place] [address] [phone] (Wo rk) 08/20/2022 Appointment Radiology Claude Loaiza MPAS, P.A.-C. [address] [place] [address] [phone] (Octavio rk) 08/22/2022 Virtual Visit Urology Gibran Ruvalcaba M.D. [address] [place] [address] [phone] (Wo rk) documented as of this encounter Procedures Procedure Name Priority Date/Time Associated Diagnosis Comme nts CBC WITH Routine 02/07/2022 9:26 AM Mass Bladder Results f or this DIFFERENTIAL, B CDT procedure ar e in the results section. ALKALINE Routine 02/07/2022 9:26 AM Mass Bladder Results f or this PHOSPHATASE, S/P CDT procedure a re in the results section. ALBUMIN, S/P Routine 02/07/2022 9:26 AM Mass Bladder Results f or this CDT procedure are i n the results section. BASIC METABOLIC Routine 02/07/2022 9:26 AM Mass Bladder Result s for this PANEL, S/P CDT procedure are i n the results section. documented in this encounter Results (ABNORMAL) Alkaline Phosphatase (02/07/2022 9:26 AM CDT) athologist Signature Alkaline 152 (H) 40 - 129 02/07/2022 NPR[facility] Phosphatase, P U/L 11:13 AM CDT Specimen Anatomical Collection Method Collection Time Receive d Time (Source) Location / / Volume Laterality Blood (Blood, 02/07/2022 9:26 AM 02/08/20 22 Venous) CDT 10:21 AM CDT David Sevilla, B.Ch., B.A.O. LAB BLOOD ADD-ON Performing Organization Address City/State/ZIP Code Phon e Number [facility] [address] [place], [place] [address] [place] [place] [address] [facility] [address] [place] (ABNORMAL) Basic Metabolic Panel (02/07/2022 9:26 AM CDT) athologist Signature Potassium, P 4.5 3.6 - 5.2 02/07/2022 [facility] mmol/L 11:13 AM CDT Sodium, P 139 135 - 145 02/07/2022 [facility] mmol/L 11:13 AM CDT Chloride, P 98 98 - 107 02/07/2022 [facility] mmol/L 11:13 AM CDT Bicarbonate, P 31 (H) 22 - 29 02/07/2022 [facility] mmol/L 11:13 AM CDT Anion Gap, P 10 7 - 15 02/07/2022 [facility] 11:13 AM CDT BUN (Blood Urea 32 (H) 8 - 24 02/07/2022 NPR[facility] Nitrogen), P mg/dL 11:13 AM CDT Creatinine 1.09 0.74 - 02/07/2022 [facility] 1.35 mg/dL 11:13 AM CDT eGFR-Black/Afri 72 >=60 02/07/2022 [facility] can Cambodian mL/min/BSA 11:13 AM CDT Comment: ----ADDITIONAL INFORMATION---- Estimated GFR calculated using the 2009 CKD_EPI creatinine equation. eGFR Non-Black/ 62 >=60 mL/min/BSA 02/07/2022 11:13 AM CDT NPRG Comment: ----ADDITIONAL INFORMATION---- Estimated GFR calculated using the 2009 CKD_EPI creatinine equation. Calcium, Total, P 9.0 8.8 - 10.2 mg/dL 02/07/2022 11:1 3 AM CDT NPRG Glucose, P 201 (H) 70 - 140 mg/dL 02/07/2022 11:13 AM CDT NPRG Specimen Anatomical Collection Method Collection Time Receive d Time (Source) Location / / Volume Laterality Blood (Blood, 02/07/2022 9:26 AM 02/08/20 Venous) CDT 10:21 AM CDT David Sevilla, B.Ch., B.A.O. LAB BLOOD ADD-ON Performing Organization Address City/State/ZIP Code Phon e Number [facility] [address] [place], [place] [address] [place] [address] [place] [address] [facility] [address] Albumin (02/07/2022 9:26 AM CDT) athologist Signature Albumin, P 3.9 3.5 - 5.0 02/07/2022 NPR[facility] g/dL 11:13 AM CDT Specimen Anatomical Collection Method Collection Time Receive d Time (Source) Location / / Volume Laterality Blood (Blood, 02/07/2022 9:26 AM 02/08/20 22 Venous) CDT 10:21 AM CDT David M Barb Sevilla, BChano., B.A.O. LAB BLOOD ADD-ON Performing Organization Address City/State/ZIP Code Phon e Number [facility]- [address] [place], [place] [address] [facility] [place] [address] (ABNORMAL) CBC with Differential, Blood (02/07/2022 9:26 AM CDT) [facility] Method Time Signature Hemoglobin 9.6 (L) 13.2 - 02/07/2022 MKTO 16.6 g/dL 3:23 PM CDT Hematocrit 33.8 (L) 38.3 - 02/07/2022 MKTO 48.6 % 3:23 PM CDT Erythrocytes 3.10 (L) 4.35 - 02/07/2022 MKTO 5.65 3:23 PM CDT x10(12)/L MCV 109.0 (H) 78.2 - 02/07/2022 MKTO 97.9 fL 3:23 PM CDT RBC Distrib Width 20.1 (H) 11.8 - 02/07/2022 MKTO 14.5 % 3:23 PM CDT Platelet Count 523 (H) 135 - 317 02/07/2022 MKTO x10(9)/L 3:23 PM CDT Leukocytes 6.5 3.4 - 9.6 02/07/2022 MKTO x10(9)/L 3:23 PM CDT Neutrophils 5.81 1.56 - 02/07/2022 MKTO 6.45 3:23 PM CDT x10(9)/L Lymphocytes 0.33 (L) 0.95 - 02/07/2022 MKTO 3.07 3:23 PM CDT x10(9)/L Monocytes 0.22 (L) 0.26 - 02/07/2022 MKTO 0.81 3:23 PM CDT x10(9)/L Eosinophils 0.10 0.03 - 02/07/2022 MKTO 0.48 3:23 PM CDT x10(9)/L Basophils 0.04 0.01 - 02/07/2022 MKTO 0.08 3:23 PM CDT x10(9)/L Specimen Anatomical Collection Method Collection Time Receive d Time (Source) Location / / Volume Laterality Blood (Blood, 02/07/2022 9:26 AM 02/08/20 3:09 Venous) CDT PM CDT David Sevilla, B.Tj., B.A.O. LAB BLOOD ADD-ON Performing Organization Address City/State/ZIP Code Phon e Number [facility]- [address] [place] [address] [place] [address] [address] documented in this encounter Visit Diagnoses Diagnosis Mass Bladder documented in this encounter Care Teams Intake Counselor Relationship Specialty Start Date End Date Elsewhere, Pcp PCP - General Internal Medicine 01/14/22 documented as of this encounter
--- OUTSIDE RECORDS SUMMARY | 2022-07-31 11:36 | XMS_ITS | Encounter Summary ---
:1935 Author Organization [facility] Address [address] [place] [address] Care Team Providers Name Role Phone Unavailable [...] or relatives? How often do you attend confucianist or Patient refused 2021 muslim services? 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 [address] [place] [address] [phone] (Wo rk) 08/20/2022 Appointment Radiology Claude Loaiza MPAS, P.A.-C. [address] [place] [address] [phone] (Wo rk) 08/22/2022 Virtual Visit Urology Gibran Ruvalcaba M.D. [address] [place], [place] [phone] (Wo rk) documented as of this encounter Procedures Procedure Name Priority Date/Time Associated Comments Diagnosis DERMATOLOGY IMAGE Routine 07/27/2019 12:15 Result s for this EXAM PM CDT procedure are i n the results section. documented in this encounter Results cheek, left preauricular 11 Mohs micrographic surgery-Dermatology Image Exam (07/27/2019 12:15 PM CDT) Specimen (Source) Anatomical Collection Method [...]
--- OUTSIDE RECORDS SUMMARY | 2022-07-31 11:36 | XMS_ITS | Encounter Summary ---
:1935 Author Organization [facility] Address [address] [place] [address] Care Team Providers Name Role Phone Unavailable [...] you attend congregation or Patient refused 2021 anglican services? 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 [address] [place] [address] [phone] (Wo rk) 08/20/2022 Appointment Radiology Claude Loaiza MPAS, P.A.-C. [address] [place] [address] [phone] (Wo rk) 08/22/2022 Virtual Visit Urology Gibran Ruvalcaba M.D. [address] [place] [address] [phone] (Wo rk) documented as of this encounter Procedures Procedure Name Priority Date/Time Associated Comments Diagnosis DERMATOLOGY IMAGE Routine 06/29/2019 9:05 AM Resu lts for this EXAM CDT procedure are i n the results section. documented in this encounter Results nose, right nasal sidewall 18-Dermatology Image Exam (06/29/2019 9:05 AM CDT) Specimen (Source) Anatomical Collection Method Collection Time Re ceived Time Location / / Volume Laterality 06/29/2019 9:05 AM CDT Narrative [facility] - 06/29/2019 9:07 AM CDT This order has been created [...]
--- OUTSIDE RECORDS SUMMARY | 2022-07-31 11:36 | XMS_ITS | Encounter Summary ---
:1935 Author Organization [facility] Address [address] [place] [address] Care Team Providers Name Role Phone Unavailable [...] or relatives? How often do you attend pentecostal or Patient refused 2021 congregation services? Do you belong to any clubs or No 05/17/2022 organizations such as pentecostal groups, unions, fraternal or athletic groups, or [...] place to sleep or slept in a snf (including now)? 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 [address] [place] [address] [phone] (Wo rk) 08/20/2022 Appointment Radiology Claude Loaiza MPAS, P.A.-C. [address] [place] [address] [phone] (Wo rk) 08/22/2022 Virtual Visit Urology Gibran Ruvalcaba M.D. [address] [place], [place] [phone] (Wo rk) documented as of this encounter Procedures Procedure Name Priority Date/Time Associated Comments Diagnosis DERMATOLOGY IMAGE Routine 07/27/2019 12:10 Result s for this EXAM PM CDT procedure are i n the results section. documented in this encounter Results cheek, left preauricular 11 Mohs micrographic surgery-Dermatology Image Exam (07/27/2019 12:10 PM CDT) Specimen (Source) Anatomical Collection Method [...]
--- OUTSIDE RECORDS SUMMARY | 2022-07-31 11:36 | XMS_ITS | Encounter Summary ---
:1935 Author Organization [facility] Address [address] [place] [address] Care Team Providers Name Role Phone Unavailable Primary Care Provider Unavailable Reason for Visit Reason Comments Biopsy Encounter Details Date Type Department Care Team Description 06/29/2019 Procedure visit Department of Aashish Pandey (Primary Dx); Dermatology in Franck Newby M.D. Keratosis [address] [phone] Social History Tobacco Use Types Packs/Day Years [...] you attend hinduism or Patient refused 2021 advent services? 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 - 06/29/2019 9:00 AM CDT SUBJECTIVE CHIEF COMPLAINT/REASON FOR VISIT Return for biopsies involving right mid lateral nasal bridge and left preauricular area HISTORY OF THE PRESENT ILLNESS Henok Chery is a pleasant 84 y.o. male accompanied by his who presents for repeat shave biopsies involving the right mid lateral nasal bridge and left preauricular. The patient had biopsiesperformed previously on 05/25/19. Dermatopathology report came back as squamous cell carcinomas for both locations, superficially transected. I called the patient with results of skin biopsies and recommended Mohs surgery at [facility]. The patient was very adamant about not going down to [facility] and would like me to treat these lesions. I discussed with him that the optimal treatment is theMohs surgery, and he understands but does not want to go have this done. He is here today for further shave biopsies on both sites as a debulking measure and to get further pathology to see if they areamenable for further treatment with curettage and cryotherapy once pathology comes back. 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 The largest of his squamous cell carcinomas involving his left cheek was initially treated with CO2 laser in [place] and then Mohs surgery thereafter. He also has a history of multiple actinic keratoses involving his face and underwent 40% TCA peel for the actinic keratoses and actinic damage involving his face at [facility] in on 12/10/17??under the care of Dr. Hare. MEDICAL HISTORY 1. 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 Hare??at [facility] on 10/27/17 2. 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 Squamous cell carcinoma involving left preauricular, superficially transected per dermatopathology report 05/28/19 OBJECTIVE PHYSICAL EXAMINATION General: Awake, alert, in no acute distress, and with appropriate affect. Skin: Limited exam performed today. Examination of the right mid lateral nasal bridge reveals a 5 mmx 5 mm shave biopsy scar. No obvious lesion present. Examination of the left preauricular reveals a 3 mm x 3 mm skin-colored slightly firm papule. Examination of the face reveals actinic keratoses, including right infraorbital x2, left infraorbital x3, right upper cheek x2, right upper lip x1 and leftcheek x2. ASSESSMENT/PLAN #1 Right mid lateral nasal bridge/sidewall: Squamous cell carcinoma, superficially transected As discussed above, I had recommended Mohs surgery which he refused to go down to [place] to have this done. Subsequently, we recommend a deep shave biopsy of the right mid lateral nasal bridge for further pathology . Photograph taken today with patient's verbal consent. We will correspond as to theresults and if any further treatment is needed. If the pathology comes back as amenable to cryotherapy and curettage, we will proceed with that treatment. If, after the biopsy the tumor extends deeper,then I will again refer him for Mohs surgery again. The patient understands and likes this approach,as he is not willing to travel to [facility] at this time. PROCEDURAL PAUSE: Procedural pause conducted to verify: [...] lidocaine with epinephrine for local anesthesia, a deep shave biopsy was obtained from the right mid lateral nasal bridge. Biopsy submitted to Dermatopathology for H&E. Special stains will be performed as indicated. The bleeding was well controlled with application of aluminum chloride. Dressing was applied, and wound care instructions were explained. Biopsy results and any further recommendations will be communicated to the patient by letter. Patient given pamphlet [id number]. Discussed the risks, benefits, alternatives, and the necessity of other members of the healthcare team participating in the procedure. All questions answered and consent given. #2 Left preauricular: Squamous cell carcinoma, superficially transected As noted above, we had recommended Mohs surgery for this squamous cell carcinoma. However, he refused to go to [place] to have the Mohs surgery done. Subsequently, we recommend a deep shave biopsy ofthe left preauricular area as a debulking measure and to obtain more pathology. Photograph taken today with patient's verbal consent. We will correspond as to the results and if any further treatment is needed. If the pathology comes back as amenable to cryotherapy and curettage, we will proceed with that treatment. If, after the debulking biopsy the tumor extends deeper, then I will again refer him for Mohs surgery. The patient understands and likes this approach, as he is not willing to travel to [facility] at this time. PROCEDURAL PAUSE: Procedural pause conducted to verify: [...] lidocaine with epinephrine for local anesthesia, a deep shave biopsy was obtained from the left preauricular area. Biopsy submitted to Dermatopathology for H&E. Special stains will be performed as indicated. The bleeding was well controlled with application of aluminum chloride. Dressing was applied, and wound care instructions were explained. Biopsy results and any further recommendations will be communicated to the patient by letter. Patient given pamphlet [id number]. Discussed the risks, benefits, alternatives, and the necessity of other members of the healthcare team participating in the procedure. All questions answered and consent given. #3 Face: Actinic keratosis x10 CONSENT Discussed the risks, benefits, alternatives, and the necessity of other members of the healthcare team participating in the procedure. All questions answered and consent given. PROCEDURE INFORMATION Given the precancerous nature of this lesion(s), treatment is medically indicated. After discussion of the risks, benefits and alternatives to treatment with cryotherapy, informed consent was obtained.We treated a total of 10 lesion(s) with two 10-second freeze-thaw cycles of liquid nitrogen cryotherapy. The [...] Aashish Pandey M.D. Electronically Signed: cookie Kelly. 06/29/2019. 9:08 AM. IAashish M.D., personally performed the services described in this documentation. All medical record entries made by the scribe were at my direction and in my presence. I have reviewed the chart and discharge instructions (if applicable) and agree that the record reflects my personal performance and is accurate and complete. Aashish Pandey M.D. . 06/29/2019. 9:13 AM. documented in this encounter Miscellaneous Notes Result Encounter Note - Aashish Pandey M.D. - 06/29/2019 9:00 AM CDT I spoke to Henok and his regarding the biopsy results. 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 He knowswhat to expect with the Mohs surgery and subsequently I have placed an order to have this done. I have asked him to follow up with me in the next few months and he states he already has an appointment.They requested that the [place] appointment office call them with regards to the Mohs surgery date and time and I told him I would put that on the request. I have asked them to call me if they have not heard back from our appointment office in [place] within a week or if the surgery date is more than 4-6 weeks from now. They are appreciative of the phone call. All questions answered. documented in this encounter Plan of Treatment Upcoming Encounters Date Type Specialty Care Team Description 08/20/2022 Appointment Radiology Claude Loaiza MPAS, PJluisA.-C. [address] [place] [address] [phone] (Otcavio christensen) 08/20/2022 Appointment Radiology Claude Loaiza MPAS P.A.-C. [address] [place] [address] [phone] (Octavio christensen) 08/22/2022 Virtual Visit Urology Gibran Ruvalcaba M.D. [address] [place] [address] [phone] (Octavio christensen) documented as of this encounter Procedures Procedure Name Priority Date/Time Associated Comments Diagnosis DERMATOPATHOLOGY CONSULT Routine 06/29/2019 9:10 Lesion Skin Results for this AM CDT procedure are i n the results section. documented in this encounter Results Dermatopathology Consult (06/29/2019 9:10 AM CDT) Component Value Ref Test Analysis Performed Pathologis t Range Method Time At Signature Gross A: ?? Received in formalin labeled with the patient's name, 07/07/2019 Description: medical record number, and right nasal sidewall is a 0.8 1:53 PM CDT x 0.3 x 0.1 cm pale estrella skin shave biopsy. ??There is a 0.6 x 0.3 cm pale estrella-brown, slightly raised, firm lesion with ill-defined borders encompassing nearly the entire skin surface. The specimen is submitted en toto in cassette A1. Grossed by AV. B: ?? Received in formalin labeled with the patient's name, medical record number, and left pre-auricular cheek is a 0.9 x 0.5 x 0.1 cm pale estrella skin shave biopsy. ??There is a 0.4 x 0.4 cm pale estrella-brown, slightly raised, firm lesion with irregular borders eccentrically located on the skin surface and abutting the periphery. ??The specimen is bisected and submitted entirely in cassette B1. Grossed by AV. Antonio Polk 07/07/2019 electronically Ashtyn Corral 1:53 PM CDT signed by 07/07/2019 1:53 PM CDT Interpetation FINAL DIAGNOSIS 07/07/2019 A. ??DermPath Consult Wet Tissue; Right nasal sidewall , 1:53 PM CDT Skin shave biopsy: ??Demodex folliculitis COMMENT Clinical photo reviewed. ??Multiple tissue levels examined. PAS-D is negative for fungal microorganisms. B. ??DermPath Consult Wet Tissue; Left preauricular cheek , Skin shave biopsy: ??Invasive well-differentiated squamous cell carcinoma, involving deep biopsy border Specimen Anatomical Collection Method Collection Time Receive d Time (Source) Location / / Volume Laterality Tissue 06/29/2019 9:10 AM 9 CDT 10:43 AM CDT Narrative This result has an attachment that is no t available. Aashish Pandey M.D. LAB PATH DERM ORDERABLES Performing Organization Address City/State/ZIP Code Phon e Number [facility] - [address] [place], [place] [address] [facility] documented in this encounter Visit Diagnoses Diagnosis Lesion Skin - Primary Keratosis Actinic documented in this encounter Administered Medications Inactive Administered Medications - up to 3 most recent administrations Medication Order MAR Action Action Date Dose Rate Site lidocaine-EPINEPHrine 1 %-1:100,000 Given 06/29/2019 9:30 AM CDT 1 mL injection 1 mL (XYLOCAINE W/EPI) 1 mL, infiltration, Once, On Fri06/29/19 at 0915, For 1 dose documented in this encounter
--- OUTSIDE RECORDS SUMMARY | 2022-07-31 11:36 | XMS_ITS | Encounter Summary ---
:1935 Author Organization [facility] Address [address] [place] [address] Care Team Providers Name Role Phone Elsewhere, Pcp Primary Care Provider Unavailable Encounter Details Date Type Department Care Team Description 01/14/2022 Documentation Division of Nephrology and Alicia Jeffrey Hypertension in [place], Ashtyn, Ph.D. [address] [place] [phone] (Wo rk) Social History Tobacco Use Types [...] you attend congregational or Patient refused 2021 synagogue services? 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 [address] [place] [address] [phone] (Wo rk) 08/20/2022 Appointment Radiology Claude Loaiza MPAS, P.A.-C. [address] [place] [address] [phone] (Wo rk) 08/22/2022 Virtual Visit Urology Gibran Ruvalcaba M.D. [address] [place] [address] [phone] (Wo rk) documented as of this encounter Visit Diagnoses Not on filedocumented in this encounter Care Teams Buyers' Agent Relationship Specialty Start Date End Date Elsewhere, Pcp PCP - General Internal Medicine 01/14/22 documented as of this encounter
--- OUTSIDE RECORDS SUMMARY | 2022-07-31 11:36 | XMS_ITS | Encounter Summary ---
:1935 Author Organization [facility] Address [address] [place] [address] Care Team Providers Name Role Phone Elsewhere, Pcp Primary Care Provider Unavailable Reason for Visit Reason Comments Abnormal Lab Encounter Details Date Type Department Care Team Description 01/14/2022 Emergency [facility] Samanta Barfield Hema turia (Primary Dx) Emergency Department M.D. [address] [place] [address] [address] [place] [phone] Social History Tobacco Use Types Packs/Day Years [...] you attend mandaeism or Patient refused 2021 confucianism services? 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 - 01/14/2022 7:36 PM CDT Your creatinine here today was normal. As we discussed, your doctor should continue to look into the cause for the blood in your urine. Butthis can be done as an outpatient. Please continue to follow-up with them. If he have any new concerns, please return. documented in this encounter Medications at Time [...] per tablet documented as of this encounter ED Notes Samanta Barfield M.D. - 01/14/2022 7:30 PM CDT SUBJECTIVE CHIEF COMPLAINT/REASON FOR VISIT Abnormal Lab HISTORY OF PRESENT ILLNESS This is an 86-year-old gentleman referred here because of an elevated creatinine that was found using a point of care test at [place]. Patient had an angiogram last Friday without any intervention and subsequently was noted to have an elevated creatinine of 5.2. On Friday. He went back to clinic today and notes that his creatinine was rechecked and it was 5.9. He was referred here for further evaluation. Patient denies any complaints. He states he has been feeling at his baseline. He had the angiogram because of shortness of breath and this has been moderately improved. Notes he has been urinating normally. REVIEW OF SYSTEMS Constitutional: Negative for chills and fever. HENT: Negative for sore throat. Eyes: Negative for visual disturbance. Respiratory: Positive for shortness of breath (At baseline). Negative for cough. Cardiovascular: Negative for chest pain. Gastrointestinal: Negative for abdominal pain, diarrhea and vomiting. Endocrine: Negative for polyuria. Genitourinary: Negative for frequency. Musculoskeletal: Negative for arthralgias. Neurological: Negative for headaches. Hematological: Does not bruise/bleed easily. Psychiatric/Behavioral: Negative for confusion. OBJECTIVE Initial Vitals Temperature Pulse Rate Heart Rate Resp Rate Blood Pressure SpO2 01/14/22 1615 01/14/22 1615 01/14/22 1920 01/14/22 1615 01/14/22 1615 01/14/22 1615 36.8 ??C 78 89 18 136/76 95 % Pain Score -- PHYSICAL EXAMINATION Constitutional: Nursing note and vitals reviewed. No distress. HENT: Head: Atraumatic. Nose: Nose normal. Mouth/Throat: Mucous membranes are moist. Eyes: Conjunctivae are normal. Pupils are equal, round, and reactive to light. Neck: Neck supple. No JVD present. Cardiovascular: Normal rate and regular rhythm. Murmur (Soft holosystolic murmur) heard. Pulmonary/Chest: Effort normal and breath sounds normal. There is normal air entry. No tachypnea. Norespiratory distress. He has no wheezes. He has no rhonchi. He has no rales. Abdominal: Soft. exhibits no distension. There is no abdominal tenderness. Musculoskeletal: General: No deformity. Normal range of motion. Cervical back: Neck supple. Neurological: Alert and oriented to person, place, and time. He has normal sensation and normal strength. He is not disoriented. No cranial nerve deficit. GCS eye subscore is 4. GCS verbal subscore is 5. GCS motor subscore is 6. Normal speech. He exhibits normal muscle tone. Coordination normal. Skin: Skin is warm and dry. Psychiatric: Behavior is normal. ASSESSMENT/PLAN IMPRESSION AND PLAN Patient referred here because of rising creatinine after an angiogram. In intake, the patient had labs drawn and his creatinine was noted to be 1.0. We spoke to the clinic that referred him. They note that the initial lab was checked on a point of care machine. It was subsequently recent to the hospital lab and was noted to be 0.8. I discussed the fact that are creatinine was 1.0. They also noted that he had 3+ blood with microscopic hematuria in his urine. I discussed with them that this could be followed up as an outpatient anddoes not require emergency department evaluation. Who will repeat the creatinine here now in ensure that it is normal. If it is normal, I am reassuring the patient and encouraging him to follow up with his primary provider in [place] where he can continue to have the hematuria workup. ED Course as of 01/14/221950Jan 14, 2022 1950 Family is questioning whether we really need to repeat the labs. This story is consistent with a lab error with a point of care machine that was used given that the hospital result was consistent with a are some with a normal creatinine. Patient will be dismissed. He was noted to have multiple PVCs on as the monitor however the patient is completely asymptomatic. He had an echocardiogram as wellas an angiogram just recently. Family is aware of these and is comfortable with dismissal. Final Diagnoses: as of 01/14/221950 Hematuria Samanta Barfield M.D. 01/14/221933 Samanta Barfield M.D. 01/14/221935 Deysi Kuhn R.N. - 01/14/2022 4:14 PM CDT From ATC note- Pt was seen in clinic by PCP last Friday for f/u from angiogram. Had elevated creatinine at that time, Pt was hydrated over the week, and had a re-check today. Creatinine continues to rise. ?? Deysi Kuhn R.N. 01/14/22 1615 documented in this encounter Plan of Treatment Upcoming Encounters Date Type Specialty Care Team Description 08/20/2022 Appointment Radiology Claude Loaiza MPAS, P.A.-C. [address] [place] [phone] (Octavio rk) 08/20/2022 Appointment Radiology Claude Loaiza MPAS, P.A.-C. [address] [place] [address] [phone] (Octavio rk) 08/22/2022 Virtual Visit Urology Gibran Ruvalcaba M.D. [address] [place] [address] [phone] (Octavio rk) documented as of this encounter Procedures Procedure Name Priority Date/Time Associated Diagnosis Comme nts ECG STAT 01/14/2022 7:39 PM Results f or this CDT procedure are i n the results section. HEPATIC FUNCTION STAT 01/14/2022 5:03 PM Resul ts for this PANEL, S CDT procedure are i n the results section. CBC WITH STAT 01/14/2022 5:03 PM Results f or this DIFFERENTIAL, B CDT procedure ar e in the results section. LIPASE, S/P STAT 01/14/2022 5:03 PM Results f or this CDT procedure are i n the results section. LACTATE, B/P STAT 01/14/2022 5:03 PM Results f or this CDT procedure are i n the results section. BASIC METABOLIC STAT 01/14/2022 5:03 PM Result s for this PANEL, S/P CDT procedure are i n the results section. ECG STAT 01/14/2022 4:25 PM Results f or this CDT procedure are i n the results section. documented in this encounter Results ECG 12 Lead (01/14/2022 7:39 PM CDT) P athologist Signature Ventricular Rate 106 BPM MUSE ECG/Min QRSD Interval 98 ms MUSE QT Interval 354 ms MUSE QTC Interval 470 ms MUSE R [place] -8 degrees MUSE T Wave [place] 111 degrees MUSE Specimen Anatomical Collection Method Collection Time Receive d Time (Source) Location / / Volume Laterality 01/14/2022 7:39 PM 8:02 CDT PM CDT Impressions MUSE - 01/14/2022 8:03 PM CDT Probable Sinus tachycardia with 1st degree A-V block Premature ventricular complexes singly, paired, and in a series Nonspecific ST abnormality When compared with ECG of 14-JAN-2022 16 :25, Vent. rate has increased by 37 BPM Premature ventricular complexes are now present Reviewed by VENKATESH Lizarraga Narrative This result has an attachment that is no t available. Procedure Note Rose Marie Gilbert M.D., Ph.D. - 01/14/2022Fo rmatting of this note might be different from the original. IMPRESSION: Probable Sinus tachycardia with 1st degr ee A-V block Premature ventricular complexes singly, paired, and in a series Nonspecific ST abnormality When compared with ECG of 14-JAN-2022 16 :25, Vent. rate has increased by 37 BPM Premature ventricular complexes are now present Reviewed by VENKATESH Lizarraga Samanta Barfield M.D. ECG ORDERABLES Performing Organization Address City/State/ZIP Code Phon e Number MUSE MUSE NA Lactate (01/14/2022 5:03 PM CDT) P athologist Signature Lactate, P 0.9 0.5 - 2.2 01/14/2022 DTL mmol/L 6:07 PM CDT Specimen Anatomical Collection Method Collection Time Receive d Time (Source) Location / / Volume Laterality Blood (Blood, 01/14/2022 5:03 PM 01/15/20 5:36 Venous) CDT PM CDT Samanta Barfield M.D. LAB BLOOD NON ADD-ON Performing Organization Address City/State/ZIP Code Phon e Number [facility] - [address] [place], [place] [address] [place] [address] [address] (ABNORMAL) CBC with Differential, Blood (01/14/2022 5:03 PM CDT) Patholo gist Method Time Signature Hemoglobin 10.4 (L) 13.2 - 01/14/2022 STMA 16.6 g/dL 5:32 PM CDT Hematocrit 33.7 (L) 38.3 - 01/14/2022 STMA 48.6 % 5:32 PM CDT Erythrocytes 3.22 (L) 4.35 - 01/14/2022 STMA 5.65 5:32 PM CDT x10(12)/L MCV 104.7 (H) 78.2 - 01/14/2022 STMA 97.9 fL 5:32 PM CDT RBC Distrib Width 19.2 (H) 11.8 - 01/14/2022 STMA 14.5 % 5:32 PM CDT Platelet Count 397 (H) 135 - 317 01/14/2022 STMA x10(9)/L 5:32 PM CDT Leukocytes 6.5 3.4 - 9.6 01/14/2022 STMA x10(9)/L 5:32 PM CDT Neutrophils 5.58 1.56 - 01/14/2022 DHPM 6.45 6:10 PM CDT x10(9)/L Lymphocytes 0.41 (L) 0.95 - 01/14/2022 DHPM 3.07 6:10 PM CDT x10(9)/L Monocytes 0.28 0.26 - 01/14/2022 DHPM 0.81 6:10 PM CDT x10(9)/L Eosinophils 0.13 0.03 - 01/14/2022 DHPM 0.48 6:10 PM CDT x10(9)/L Basophils 0.07 0.01 - 01/14/2022 DHPM 0.08 6:10 PM CDT x10(9)/L Specimen Anatomical Collection Method Collection Time Receive d Time (Source) Location / / Volume Laterality Blood (Blood, 01/14/2022 5:03 PM 01/15/20 22 5:21 Venous) CDT PM CDT Samanta Barfield M.D. LAB BLOOD ADD-ON Performing Organization Address City/[facility] Phon e Number [facility] - [address] [place], [place] [address] [address] [place], [place] [id number] [place] [address] DH[facility] [place], [place] [id number] [place] [address] Lipase (01/14/2022 5:03 PM CDT) P athologist Signature Lipase, S 17 13 - 60 U/L 01/14/2022 6:03 DTL PM CDT Specimen Anatomical Collection Method Collection Time Receive d Time (Source) Location / / Volume Laterality Blood (Blood, 01/14/2022 5:03 PM 01/15/20 22 5:37 Venous) CDT PM CDT Samanta Barfield M.D. LAB BLOOD ADD-ON Performing Organization Address City/[facility] Phon e Number [facility] - [address] [place], [place] [address] [address] [place], [place] [phone] [place] [address] (ABNORMAL) Hepatic Function Panel (01/14/2022 5:03 PM CDT) Patholo gist Method Time Signature Bilirubin, Total, S 0.5 <=1.2 01/14/2022 DTL mg/dL 6:03 PM CDT Bilirubin, Direct, S 0.2 0.0 - 0.3 01/14/2022 DTL mg/dL 6:03 PM CDT Aspartate 15 8 - 48 01/14/2022 DTL Aminotransferase U/L 6:03 PM CDT (AST), S Alanine 16 7 - 55 01/14/2022 DTL Aminotransferase U/L 6:03 PM CDT (ALT), S Alkaline 97 40 - 129 01/14/2022 DTL Phosphatase, S U/L 6:03 PM CDT Albumin, S 4.2 3.5 - 5.0 01/14/2022 DTL g/dL 6:03 PM CDT Protein, Total, S 6.1 (L) 6.3 - 7.9 01/14/2022 DTL g/dL 6:03 PM CDT Specimen Anatomical Collection Method Collection Time Receive d Time (Source) Location / / Volume Laterality Blood (Blood, 01/14/2022 5:03 PM 01/15/20 5:37 Venous) CDT PM CDT Samanta Barfield M.D. LAB BLOOD ADD-ON Performing Organization Address City/State/ZIP Code Phon e Number [facility] - [address] [place], [place] [address] [place] [address] [facility] [address] [facility] (ABNORMAL) Basic Metabolic Panel (01/14/2022 5:03 PM CDT) P athologist Signature Potassium, P 4.8 3.6 - 5.2 01/14/2022 DTL mmol/L 6:09 PM CDT Sodium, P 136 135 - 145 01/14/2022 DTL mmol/L 6:09 PM CDT Chloride, P 102 98 - 107 01/14/2022 DTL mmol/L 6:09 PM CDT Bicarbonate, P 25 22 - 29 01/14/2022 DTL mmol/L 6:09 PM CDT Anion Gap, P 9 7 - 15 01/14/2022 DTL 6:09 PM CDT BUN (Blood Urea 22 8 - 24 01/14/2022 DTL Nitrogen), P mg/dL 6:09 PM CDT Creatinine 1.01 0.74 - 01/14/2022 DTL 1.35 mg/dL 6:09 PM CDT eGFR-Black/Afric 79 >=60 01/14/2022 DTL an Pakistani mL/min/BSA 6:09 PM CDT Comment: ----ADDITIONAL INFORMATION---- Estimated GFR calculated using the 2009 CKD_EPI creatinine equation. eGFR Non-Black/ 68 >=60 mL/min/BSA 6:09 PM CDT DTL Comment: ----ADDITIONAL INFORMATION---- Estimated GFR calculated using the 2009 CKD_EPI creatinine equation. Calcium, Total, P 8.4 (L) 8.8 - 10.2 mg/dL 01/14/2022 6:09 PM CDT DTL Glucose, P 166 (H) 70 - 140 mg/dL 01/14/2022 6:09 PM CDT D TL Specimen Anatomical Collection Method Collection Time Receive d Time (Source) Location / / Volume Laterality Blood (Blood, 01/14/2022 5:03 PM 01/15/20 5:36 Venous) CDT PM CDT Samanta Barfield M.D. LAB BLOOD ADD-ON Performing Organization Address City/State/ZIP Code Phon e Number [facility] - [address] [place], [place] [address] [place] [address] [facility] 200 [facility] ECG 12 Lead (01/14/2022 4:25 PM CDT) P athologist Signature Ventricular Rate 69 BPM MUSE ECG/Min ME Interval 238 ms MUSE QRSD Interval 102 ms MUSE QT Interval 428 ms MUSE QTC Interval 459 ms MUSE P [place] 65 degrees MUSE R [place] -3 degrees MUSE T Wave [place] 83 degrees MUSE Specimen Anatomical Collection Method Collection Time Receive d Time (Source) Location / / Volume Laterality 01/14/2022 4:25 PM 4:29 CDT PM CDT Impressions MUSE - 01/14/2022 4:29 PM CDT Normal sinus rhythm with 1st degree A-V block Premature ventricular complexes Nonspecific T wave abnormality No previous ECGs available Reviewed by VENKATESH Ohara Narrative This result has an attachment that is no t available. Procedure Note Rose Marie Gilbert M.D., Ph.D. - 01/14/2022Fo rmatting of this note might be different from the original. IMPRESSION: Normal sinus rhythm with 1st degree A-V block Premature ventricular complexes Nonspecific T wave abnormality No previous ECGs available Reviewed by VENKATESH Ohara Samanta Barfield M.D. ECG ORDERABLES Performing Organization Address City/State/ZIP Code Phon e Number MUSE MUSE NA documented in this encounter Visit Diagnoses Diagnosis Hematuria - Primary documented in this encounter Administered Medications Inactive Administered Medications - up to 3 most recent administrations Medication Order MAR Action Action Date Dose Rate Site sodium chloride 0.9 % injection 10 mL 10 mL, intravenous, As needed, line care, Starting on Fri01/14/22 at 1618, Peripheral Intravenous Catheter and Rapid Infusion Cat heter, prior to blood sampling, post blood transfusion or post blood samplin g sodium chloride 0.9 % injection 3 mL 3 mL, intravenous, As needed, line care, Starting on Fri01/14/22 at 1618, Prior to and following infusion and between multi ple consecutive infusions: sodium chloride 0.9 % injection sodium chloride 0.9 % injection 3 mL 3 mL, intravenous, Every 12 hours scheduled, First dos e on Fri01/14/22 at 2100, Peripheral Intravenous Catheter and Rapi d Infusion Catheter, when no infusion to maintain patency documented in this encounter Active and Recently Administered Medications Times are shown in CDT. Scheduled Medication Order 01/12/2022 01/13/2022 01/14/2022 sodium chloride 0.9 % injection 3 mL 3 mL, intravenous, Every 12 hours schedu led, First dose on Fri01/14/22 at 2100, Peripheral Intravenous Catheter and Rapid Infusion Catheter, when no infusion to maintain patency PRN Medication Order 01/12/2022 01/13/2022 01/14/2022 sodium chloride 0.9 % injection 10 mL 10 mL, intravenous, As needed, line care , Starting on Fri01/14/22 at 1618, Peripheral Intravenous Catheter and Rapid Infusion Catheter, prior to blood sampling, post blood transfusion or post blood sampling sodium chloride 0.9 % injection 3 mL 3 mL, intravenous, As needed, line care, Starting on Fri01/14/22 at 1618, Prior to and following infusion and between multiple consecutive infusions: sodium chloride 0.9 % injection documented in this encounter Care Teams Dag Sprayer Relationship Specialty Start Date End Date Elsewhere, Pcp PCP - General Internal Medicine 01/14/22 documented as of this encounter
--- OUTSIDE RECORDS SUMMARY | 2022-07-31 11:36 | XMS_ITS | Encounter Summary ---
:1935 Author Organization [facility] Address [address] [place] [address] Care Team Providers Name Role Phone Unavailable Primary Care Provider Unavailable Encounter Details Date Type Department Care Team Description 06/05/2021 Orders Only [facility] PCP [facility] Gordon Grant, D.O. [address] [place] [address] (Wo rk) Social History Tobacco Use Types [...] attend roman catholic or Patient refused 2021 yazidi services? 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 [address] [place] [phone] (Wo rk) 08/20/2022 Appointment Radiology Claude Loaiza MPAS, PJluisA.-C. [address] [place] [phone] (Wo rk) 08/22/2022 Virtual Visit Urology Gibran Ruvalcaba M.D. [address] [place] [phone] (Wo rk) documented as of this encounter Visit Diagnoses Not on filedocumented in this encounter
--- OUTSIDE RECORDS SUMMARY | 2022-07-31 11:36 | XMS_ITS | Encounter Summary ---
:1935 Author Organization [facility] Address [address] [place] [address] Care Team Providers Name Role Phone Elsewhere, Pcp Primary Care Provider Unavailable Reason for Referral Outpatient (Routine) - Closed Specialty Diagnoses / Procedures Referred By Contact Refer red To Contact Urology Diagnoses Malignant Neoplasm Of Bladder (HCC) Slava Edwards M.D. [facility] [address] [place] [address] Referral ID Status Reason Start Date Expiration Date Visits Requ ested Visits Authorized [id number] Closed 01/30/2022 01/30/2023 1 1 Encounter Details Date Type Department Care Team Description 01/30/2022 [facility] Slava Edwards ignant Neoplasm Of AND MIRTHA Pena M.D. Bladder (HCC) [address] [place] [address] (Primary Dx) [place] [address] [place], [place] [phone] Social History Tobacco Use Types Packs/Day Years [...] you attend uatsdin or Patient refused 2021 methodist services? Do you belong to any clubs or No 05/17/2022 organizations such as uatsdin groups, unions, fraAltatech or athletic groups, or school groups? 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 [address] [place] [phone] (Octavio christensen) 08/20/2022 Appointment Radiology Claude Loaiza MPAS, P.A.-C. [address] [place] [address] [phone] (Octavio christensen) 08/22/2022 Virtual Visit Urology Gibran Ruvalcaba M.D. [address] [place] [address] [phone] (Octavio christensen) Scheduled Referrals Name Type Priority Associated Diagnoses Order S chedule Urology Referral Outpatient Referral Routine Malignant Neoplas m Of Expected: Bladder (HCC) 01/30/2022 (Approximate), Expires: 05/01/2023 documented as of this encounter Visit Diagnoses Diagnosis Malignant Neoplasm Of Bladder (HCC) - Pr imary documented in this encounter Care Teams Fur Dresser Relationship Specialty Start Date End Date Elsewhere, Pcp PCP - General Internal Medicine 01/14/22 documented as of this encounter
--- OUTSIDE RECORDS SUMMARY | 2022-07-31 11:36 | XMS_ITS | Encounter Summary ---
:[address] [facility] Address [address] [place] [address] Care Team Providers Name Role Phone Elsewhere, Pcp Primary Care Provider Unavailable Encounter Details Date Type Department Care Team Description 01/30/2022 Clinical Communication Department of Urology David Day in [place], Juan., B.Ch., [place] B.A.O. [address] [facility] [address] [place] [phone] Social History Tobacco Use Types Packs/Day Years [...] you attend sikhism or Patient refused 2021 protestant services? 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 [address] [place] [address] [phone] (Wo rk) 08/20/2022 Appointment Radiology Claude Loaiza MPAS, P.A.-C. [address] [place] [address] [phone] (Wo rk) 08/22/2022 Virtual Visit Urology Gibran Ruvalcaba M.D. [address] [place] [address] [phone] (Wo rk) documented as of this encounter Results (ABNORMAL) Alkaline Phosphatase (02/07/2022 9:26 AM CDT) P athologist Signature Alkaline 152 (H) 40 - 129 02/07/2022 NPRG Phosphatase, P U/L 11:13 AM CDT Specimen Anatomical Collection Method Collection Time Receive d Time (Source) Location / / Volume Laterality Blood (Blood, 02/07/2022 9:26 AM 02/08/20 22 Venous) CDT 10:21 AM CDT David Sevilla, B.Ch., B.A.O. LAB BLOOD ADD-ON Performing Organization Address City/State/ZIP Code Phon e Number [facility]- [address] [place], [place] [address] [address] [facility] [place] [address] [facility] [address] (ABNORMAL) Basic Metabolic Panel (02/07/2022 9:26 AM CDT) P athologist Signature Potassium, P 4.5 3.6 - [...] CDT eGFR-Black/Afri 72 >=60 02/07/2022 NPRG can [place] mL/min/BSA 11:13 AM CDT Comment: ----ADDITIONAL INFORMATION---- [...] Address City/State/ZIP Code Phon e Number [facility]- [address] [place], [place] [address] [place] [address] [place] [address] Albumin (02/07/2022 9:26 AM CDT) P athologist Signature Albumin, P 3.9 3.5 - 5.0 02/07/2022 NPRG g/dL 11:13 AM CDT Specimen Anatomical Collection Method Collection Time Receive d Time (Source) Location / / Volume Laterality Blood (Blood, 02/07/2022 9:26 AM 02/08/20 22 Venous) CDT 10:21 AM CDT David Sevilla, B.Ch., B.A.O. LAB BLOOD ADD-ON Performing Organization Address City/State/ZIP Code Phon e Number [facility]- [address] [place] [address] [address] [facility] [place] [address] (ABNORMAL) CBC with Differential, Blood (02/07/2022 9:26 AM CDT) Patholo gist Method Time Signature Hemoglobin 9.6 (L) 13.2 [...] 3:09 Venous) CDT PM CDT David Sevilla, B.Ch., B.A.O. LAB BLOOD ADD-ON Performing Organization Address City/State/ZIP Code Phon e Number [facility]- [address] [place] [address] [place] [address] System in [place] [address] [facility] documented in this encounter Visit Diagnoses Diagnosis Mass Bladder - Primary documented in this encounter Care Teams Storage Solutions Architect Relationship Specialty Start Date End Date Elsewhere, Pcp PCP - General Internal Medicine 01/14/22 documented as of this encounter
--- OUTSIDE RECORDS SUMMARY | 2022-07-31 11:37 | XMS_ITS | Encounter Summary ---
:1935 Author Organization [facility] Address [address] [place] [address] Care Team Providers Name Role Phone Unavailable Primary Care Provider Unavailable Encounter Details Date Type Department Care Team Description 02/12/2016 Hospital Encounter HX RST DERM SURG OP [facility] Ra yandel Hare M.D. [address] [place] [phone] (Wo rk) Social History Tobacco Use Types Packs/Day Years Used Date Smoking Tobacco: Never Assessed Alcohol Habits Answer Date Recorded How often [...] you attend christianity or Patient refused 2021 temple services? 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 Pulse 58 02/12/2016 3:21 PM CDT Vital sign result from Clinical Notes. Temperature - - Respiratory Rate - - Oxygen Saturation - - Inhaled Oxygen Concentration - - Weight - - Height - - Body Mass Index - - documented in this encounter Medications at Time of Discharge Medication Sig Dispensed Refills Start Date End Date aspirin [address] tablet Take 1 tablet by mouth 0 02/12/2016 daily. omeprazole (PriLOSEC) 20 Take 1 capsule by 0 01/19 mg capsule mouth daily. documented as of this encounter Plan of Treatment Upcoming Encounters Date Type Specialty Care Team Description 08/20/2022 Appointment Radiology Claude Loaiza MPAS, P.A.-C. [address] [place] [address] [phone] (Wo rk) 08/20/2022 Appointment Radiology Claude Loaiza MPAS, P.A.-C. [address] [place] [address] [phone] (Wo rk) 08/22/2022 Virtual Visit Urology Gibran Ruvalcaba M.D. [address] [place] [address] [phone] (Wo rk) documented as of this encounter Visit Diagnoses Not on filedocumented in this encounter
--- OUTSIDE RECORDS SUMMARY | 2022-07-31 11:37 | XMS_ITS | Encounter Summary ---
:1935 Author Organization [facility] Address [address] [place] [address] Care Team Providers Name Role Phone Unavailable Primary Care Provider Unavailable Encounter Details Date Type Department Care Team Description 12/10/2017 Telemedicine Department of Dermatology Social History Tobacco Use [...] or relatives? How often do you attend pentecostalism or Patient refused 2021 spiritism services? 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 [address] [place], [place] [phone] (Wo rk) 08/20/2022 Appointment Radiology Claude Loaiza MPAS, P.A.-C. [address] [place], [place] [phone] (Wo rk) 08/22/2022 Virtual Visit Urology Gibran Ruvalcaba M.D. [address] [place], [place] [phone] (Wo rk) documented as of this encounter Procedures Procedure Name Priority Date/Time Associated Comments Diagnosis DERMATOLOGY IMAGE Routine 12/10/2017 12:00 Result s for this EXAM PM RELAY ASSOCIATE procedure are i n the results section. documented in this encounter Results DERMATOLOGY IMAGE EXAM (12/10/2017 12:00 PM RELAY ASSOCIATE) Specimen (Source) Anatomical Collection Method Collection Time Re ceived Time Location / / Volume Laterality 12/10/2017 12:00 PM RELAY ASSOCIATE Narrative IIMS - 12/10/2017 3:55 PM RELAY ASSOCIATE This order has been created and auto-finalized [...]
--- OUTSIDE RECORDS SUMMARY | 2022-07-31 11:37 | XMS_ITS | Encounter Summary ---
:1935 Author Organization [facility] Address [address] [place] [address] Care Team Providers Name Role Phone Unavailable Primary Care Provider Unavailable Encounter Details Date Type Department Care Team Description 10/27/2017 Telemedicine Department of Dermatology Social History Tobacco [...] you attend pentecostalism or Patient refused 2021 mu-ism services? 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 [address] [place], [place] [phone] (Wo rk) 08/20/2022 Appointment Radiology Claude Loaiza MPAS, P.A.-C. [address] [place], [place] [phone] (Wo rk) 08/22/2022 Virtual Visit Urology Gibran Ruvalcaba M.D. [address] [place], [place] [phone] (Wo rk) documented as of this encounter Procedures Procedure Name Priority Date/Time Associated Comments Diagnosis DERMATOLOGY IMAGE Routine 10/27/2017 12:00 Result s for this EXAM PM EPIC AMBULATORY ANALYST procedure are i n the results section. documented in this encounter Results DERMATOLOGY IMAGE EXAM (10/27/2017 12:00 PM EPIC AMBULATORY ANALYST) Specimen (Source) Anatomical Location Collection Method / Collectio n Time Received Time / Laterality Volume Narrative IIMS - 10/27/2017 4:43 PM EPIC AMBULATORY ANALYST This order has been created and auto-finalized [...]
--- OUTSIDE RECORDS SUMMARY | 2022-07-31 11:37 | XMS_ITS | Encounter Summary ---
:1935 Author Organization [facility] Address [address] [place] [address] Care Team Providers Name Role Phone Unavailable Primary Care Provider Unavailable Encounter Details Date Type Department Care Team Description 10/27/2017 Hospital Encounter HX RST DERM SURG OP [facility] Ra yandel Hare M.D. [address] [place] [phone] (Wo rk) Social History Tobacco Use Types [...] you attend zoroastrianism or Patient refused 2021 rastafarian services? 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 Pulse 71 10/27/2017 8:00 AM PROCESS IMPROVEMENT ENGINEER Vital sign result from Clinical Notes. Temperature - - Respiratory Rate - - Oxygen Saturation - - Inhaled Oxygen Concentration - - Weight - - Height - - Body Mass Index - - documented in this encounter Medications at Time of Discharge Medication Sig Dispensed Refills Start Date End Date aspirin [address] tablet Take 1 tablet by mouth 0 02/12/2016 daily. hydroxyurea (HYDREA) 500 Take 3-4 capsules by mouth daily. 1 500 mg on Mon-Th 0 10/27/2017 mg capsule 2000 mg on Fri-Fri omeprazole (PriLOSEC) 20 Take 1 capsule by 0 01/19 mg capsule mouth daily. documented as of this encounter Plan of Treatment Upcoming Encounters Date Type Specialty Care Team Description 08/20/2022 Appointment Radiology Claude Loaiza MPAS, P.A.-C. [address] [place] [phone] (Octavio christensen) 08/20/2022 Appointment Radiology Claude Loaiza MPAS, P.A.-C. [address] [place] [address] [phone] (Octavio christensen) 08/22/2022 Virtual Visit Urology Gibran Ruvalcaba M.D. [address] [place] [address] [phone] (Octavio christensen) documented as of this encounter Visit Diagnoses Not on filedocumented in this encounter
--- OUTSIDE RECORDS SUMMARY | 2022-07-31 11:37 | XMS_ITS | Encounter Summary ---
:1935 Author Organization [facility] Address [address] [place] [address] Care Team Providers Name Role Phone Unavailable [...] or relatives? How often do you attend yazidi or Patient refused 2021 presybeterian services? 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 [address] [place], [place] 55 [phone] (Wo rk) 08/20/2022 Appointment Radiology Claude Loaiza MPAS, P.A.-C. [address] [place], [place] 55 [phone] (Wo rk) 08/22/2022 Virtual Visit Urology Gibran Ruvalcaba M.D. [address] [place], [place] [phone] (Wo rk) documented as of this encounter Procedures Procedure Name Priority Date/Time Associated Comments Diagnosis DERMATOLOGY IMAGE Routine 10/27/2017 12:05 Result s for this EXAM PM TRANSFORMATION ANALYST procedure are i n the results section. documented in this encounter Results DERMATOLOGY IMAGE EXAM (10/27/2017 12:05 PM TRANSFORMATION ANALYST) Specimen (Source) Anatomical Location Collection Method / Collectio n Time Received Time / Laterality Volume Narrative IIMS - 10/27/2017 4:43 PM TRANSFORMATION ANALYST This order has been created and [...]
--- OUTSIDE RECORDS SUMMARY | 2022-07-31 11:37 | XMS_ITS | Encounter Summary ---
:1935 Author Organization [facility] Address [address] [place] [address] Care Team Providers Name Role Phone Unavailable [...] or relatives? How often do you attend mosque or Patient refused 2021 taoism services? 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 [address] [place], [place] [phone] (Wo rk) 08/20/2022 Appointment Radiology Claude Loaiza MPAS, P.A.-C. [address] [place], [place] [phone] (Wo rk) 08/22/2022 Virtual Visit Urology Gibran Ruvalcaba M.D. [address] [place], [place] [phone] (Wo rk) documented as of this encounter Procedures Procedure Name Priority Date/Time Associated Comments Diagnosis DERMATOLOGY IMAGE Routine 10/27/2017 12:15 Result s for this EXAM PM TEXTILE KNITTER procedure are i n the results section. documented in this encounter Results DERMATOLOGY IMAGE EXAM (10/27/2017 12:15 PM TEXTILE KNITTER) Specimen (Source) Anatomical Location Collection Method / Collectio n Time Received Time / Laterality Volume Narrative IIMS - 10/27/2017 4:43 PM TEXTILE KNITTER This order has been created and auto-finalized [...]
--- OUTSIDE RECORDS SUMMARY | 2022-07-31 11:37 | XMS_ITS | Encounter Summary ---
:1935 Author Organization [facility] Address [address] [place] [address] Care Team Providers Name Role Phone Unavailable Primary Care Provider Unavailable Encounter Details Date Type Department Care Team Description 12/10/2017 Hospital Encounter HX RST DERM SURG OP [facility] Ra yandel Hare M.D. [address] [place] [phone] (Wo rk) Social History Tobacco Use Types [...] you attend worship or Patient refused 2021 buddhism services? 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 Pulse 66 12/10/2017 1:15 PM THERAPEUTIC MENTOR Vital sign result from Clinical Notes. Temperature [...] Radiology Claude Loaiza MPAS, P.A.-C. [address] [place] [address] [phone] (Octavio christensen) 08/20/2022 Appointment Radiology Claude Loaiza MPAS, P.A.-C. [address] [place] [address] [phone] (Octavio christensen) 08/22/2022 Virtual Visit Urology Gibran Ruvalcaba M.D. [address] [place] [address] [phone] (Octavio christensen) documented as of this encounter Visit Diagnoses Not on filedocumented in this encounter
--- OUTSIDE RECORDS SUMMARY | 2022-07-31 11:37 | XMS_ITS | Encounter Summary ---
:1935 Author Organization [facility] Address [address] [place] [address] Care Team Providers Name Role Phone Unavailable Primary Care Provider Unavailable Reason for Visit Reason Comments Skin Check Outpatient (Routine) - Closed Specialty Diagnoses / Procedures Referred By Contact Refer red To Contact Dermatology Aashish Pandey M.D . [facility] [address] [place] [phone] Referral ID Status Reason Start Date Expiration Date Visits Requ ested Visits Authorized [id number] Closed 02/16/2019 02/16/2020 1 1 Encounter Details Date Type Department Care Team Description 04/19/2019 Office Visit Department of Aashish Pandey, Tumor Skin Uncertain Behavior (Primary Dx); Dermatology in [place] Keratosis [address] [phone] Social History Tobacco Use Types Packs/Day Years [...] you attend bahai or Patient refused 2021 latter-day services? 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 - 04/19/2019 9:00 AM CDT SUBJECTIVE CHIEF COMPLAINT/REASON FOR VISIT Recheck actinic keratoses HISTORY OF THE PRESENT ILLNESS Henok Chery is a pleasant 83 y.o. male who follows up for recheck of actinic keratoses. During our most recent visit on 11/24/18, I treated 33 actinic keratoses involving his face with liquid nitrogen cryotherapy. 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 Hare. 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 The largest of his squamous cell carcinomas involving his left cheek was initially treated with CO2 laser in [place] and then Mohs surgery thereafter. MEDICAL HISTORY 1. 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 Hare??at [facility] on 10/27/17 2. 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 Skin: Limited skin exam of scalp, face, ears, distal arms and hands done in clinic today. He has 14 actinic keratoses involving his face, 2 involving his nasal bridge, 1 involving his left ear helix, 3involving his right ear helix, 2 above the right upper lip, 3 involving the right dorsal hand in 2 involving the left dorsal hand for a total of 27 actinic keratosis. Examination of the right mid lateral nasal bridge reveals a 4.5 x 4.5 mm pearly papule with slight crusting. ASSESSMENT/PLAN #1 Face, ears and hands: Actinic keratosis x27 lesions. CONSENT Discussed the risks, benefits, alternatives, and the necessity of other members of the healthcare team participating in the procedure. All questions answered and consent given. ?? PROCEDURE INFORMATION Given the precancerous nature of this lesion(s), treatment is medically indicated. After discussion of the risks, benefits and alternatives to treatment with cryotherapy, informed consent was obtained.We treated a total of 27 lesion(s) with two 21-47-ggnbpg freeze-thaw cycles of liquid nitrogen cryoth erapy. The patient tolerated the procedure well. Aftercare instructions were provided in written andverbal form to the patient. Should any of these lesions recur, the patient should return for biopsy or further evaluation. Follow up in 1-2 months for recheck if these do not completely resolve. #2 Right medial??infraorbital area, left eyebrow, right upper cheek, right nasal dorsum, and left dorsal second finger: History of squamous cell carcinoma status post Mohs surgery by Dr. Hare??at [facility] on 10/27/17 ?? No evidence for recurrence of squamous cell carcinoma on clinical exam today. Follow-up immediately if any changes or evidence for recurrence. #3 Right mid lateral nasal bridge: Rule out BCC versus SCC Photograph taken today. He will return to our Procedure Clinic on May 25 for shave biopsy and submission for pathology. PATIENT EDUCATION: Ready to learn. No apparent learning barriers were identified. Learning preferences include listening. Explained diagnosis and treatment plan; patient/guardian of patient expressed understanding of thecontent. documented in this encounter Plan of Treatment Upcoming Encounters Date Type Specialty Care Team Description 08/20/2022 Appointment Radiology Claude Loaiza MPAS P.A.-C. [address] [place], [place] [phone] (Wo rk) 08/20/2022 Appointment Radiology Claude Loaiza MPAS P.A.-C. [address] [place], [place] [phone] (Wo rk) 08/22/2022 Virtual Visit Urology Gibran Ruvalcaba M.D. [address] [place], [place] [phone] (Wo rk) Scheduled Orders Name Type Priority Associated Diagnoses Order S chedule Dermatology misc minor Dermatology Routine Tumor Skin [place] in Expected: procedure Behavior 05/25/2019 (Approximate), Expires: 2021 documented as of this encounter Visit Diagnoses Diagnosis Tumor Skin Uncertain Behavior - Primary Keratosis Actinic documented in this encounter
--- OUTSIDE RECORDS SUMMARY | 2022-07-31 11:37 | XMS_ITS | Encounter Summary ---
:1935 Author Organization [facility] Address [address] [place] [address] Care Team Providers Name Role Phone Unavailable Primary Care Provider Unavailable Reason for Visit Reason Onset Date Comments Derm schedule 09/14/2018 Encounter Details Date Type Department Care Team Description 09/14/2018 Clinical Communication Department of [facility] Becky Pandey [facility], [place] [facility], in [address] [address] [place], [place] [phone] (Work) [phone] Social History Tobacco Use Types Packs/Day Years Used Date Smoking Tobacco: Unknown Smokeless Tobacco: Never Alcohol Habits Answer Date [...] or relatives? How often do you attend judaism or Patient refused 2021 restoration services? Do you belong to any clubs or No 05/17/2022 organizations such as judaism groups, unions, fraternal or athletic groups, or [...] place to sleep or slept in a retirement (including now)? 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 - 09/15/2018 5:48 PM CST Discussed with Dr. Pandey and he would like to open a procedure appointment slot on Friday11/24/18 at 8am to see this patient. Will ask the Appointment Office to reach out to the patient to schedule this appointment. PRESSMAN Telephone Encounter - Brii Heller - 09/14/2018 9:25 AM CST Pt. Was seen by Katherin today 09/14. Says he needs to be seen in 2 to 3 months. But first available isn't until 01/05. Which is about 3 and a half months. Please let me know when to schedule this patient and I will call him to get it scheduled. PRESSMAN documented in this encounter Plan of Treatment Upcoming Encounters Date Type Specialty Care Team Description 08/20/2022 Appointment Radiology Claude Loaiza, MPAS, P.A.-C. [address] [place] [address] [phone] (Wo rk) 08/20/2022 Appointment Radiology Claude Loaiza, GARCIA, PJluisAJluis-Aram. [address] [place], [place] [phone] (Wo rk) 08/22/2022 Virtual Visit Urology Gibran Ruvalcaba M.D. [address] [place], [place] [phone] (Wo rk) documented as of this encounter Visit Diagnoses Not on filedocumented in this encounter
--- OUTSIDE RECORDS SUMMARY | 2022-07-31 11:37 | XMS_ITS | Encounter Summary ---
:1935 Author Organization [facility] Address [address] [place] [address] Care Team Providers Name Role Phone Unavailable Primary Care Provider Unavailable Reason for Referral Outpatient (Routine) - Closed Specialty Diagnoses / Procedures Referred By Contact Refer red To Contact Dermatology Aashish Pandey M.D . [address] [phone] Referral ID Status Reason Start Date Expiration Date Visits Requ ested Visits Authorized [id number] Closed 11/24/2018 11/24/2019 1 1 Scheduling Instructions Recheck a Ks and squamous cell carcinoma FridayFebruary 16 8-830 a.m. 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 [facility] Region [address] [place] [phone] Referral ID Status Reason Start Date Expiration Date Visits Requ ested Visits Authorized [id number] Closed 09/14/2018 09/14/2019 1 1 Encounter Details Date Type Department Care Team Description 11/24/2018 Office Visit Department of Aashish Pandey, Keratosis Actinic (Primary Dx); Dermatology in [place] Keratosis Seborrhe[place]; [place], [place] [address] [place] [address] Cancer Skin Squamous [place] [address] [phone] Social History Tobacco Use Types Packs/Day Years [...] you attend restorationist or Patient refused 2021 sabianist services? 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 - 11/24/2018 8:00 AM CST CHIEF COMPLAINT/REASON FOR VISIT Skin cancer recheck HISTORY OF PRESENT ILLNESS Mr. Henok Chery is a 83 y.o. 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 During our most recent visit on 09/14/18, I treated multiple actinic keratoses involving his face with liquid nitrogen cryotherapy. 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 Hare. During our most recent visit, we discussed that if the actinic keratoses do not resolve with continued treatment with liquid nitrogen cryotherapy, we could consider restarting fluorouracil topical. The patient has used this in the past and tolerated it well. 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 The largest of his squamous cell carcinomas involving his left cheek was initially treated with CO2 laser in [place] and then Mohs surgery thereafter. ?? Allergies Allergen Reactions ??? Penicillins Anaphylaxis PAST MEDICAL HISTORY 1. 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 Hare at [facility] on 10/27/17 2. 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 PHYSICAL EXAM General: Awake, alert, in no acute distress, and with appropriate affect. Skin: Examination of the face and upper extremities reveals actinic keratoses including the foreheadx 4, right cheek x 3, nasal bridge and nose x 8, left upper cheek x 4, left cheek x 6, right ear lobe x 1, left ear x 2, left medial second finger x 1, lower lip x 3, and right upper lip x 1. Examination of the left dorsal second finger reveals no evidence of recurrence of squamous cell carcinoma. Examination of the arms reveals seborrheic keratoses and dry skin. He will be due for his next full skincancer screening examination in May 2019. Lymph: No lymphadenopathy on examination of head and neck today. IMPRESSION/REPORT/PLAN #1 Face and extremities: Actinic keratosis x 33 CONSENT Discussed the risks, benefits, alternatives, and the necessity of other members of the healthcare team participating in the procedure. All questions answered and consent given. ?? PROCEDURE INFORMATION Given the precancerous nature of this lesion(s), treatment is medically indicated. After discussion of the risks, benefits and alternatives to treatment with cryotherapy, informed consent was obtained.We treated a total of 33 lesion(s) with two 76-20-tvomti freeze-thaw cycles of liquid nitrogen cryoth erapy, with the exception of those actinic keratoses involving the lips which were treated with two 5-10-second freeze-thaw cycles of liquid nitrogen cryotherapy in consideration of location. The patient tolerated the procedure well. Aftercare instructions were provided in written and verbal form to the patient. Should any of these lesions recur, the patient should return for biopsy or further evaluation. Follow up in 1-2 months for recheck if these do not completely resolve. Otherwise, follow up inon 02/16/19 for recheck of actinic keratoses. No evidence for skin cancers today. #2 Arms: Seborrheic Keratosis The benign nature of the skin lesion(s) was discussed with the patient. No treatment is required. I recommend continued observation. Should symptoms or changes develop related to this condition, I would recommend a return visit for reassessment. #3 Right medial infraorbital area, left eyebrow, right upper cheek, right nasal dorsum, and left dorsal second finger: History of squamous cell carcinoma status post Mohs surgery by Dr. Hare at [facility] on 10/27/17 No evidence for recurrence of squamous cell carcinoma on clinical exam today. Follow-up immediately if any changes or evidence for recurrence. PATIENT EDUCATION Ready to learn. No apparent learning barriers were identified. Learning preferences include listening. Explained diagnosis and treatment plan; patient/guardian of patient expressed understanding of thecontent. By signing my name below, I, Alexus Lee, attest that this documentation has been prepared under thedirection and in the presence of Aashish Pandey M.D.. Electronically Signed: cookie Elena. 11/24/2018. 8:14 AM . Aashish Dubon M.D., personally performed the services described in this documentation. All medical record entries made by the scribe were at my direction and in my presence. I have reviewed the chart and discharge instructions (if applicable) and agree that the record reflects my personal performance and is accurate and complete. Aashish Pandey M.D. . 11/24/2018. 8:32 AM. E CRUSHER OPERATOR documented in this encounter Plan of Treatment Upcoming Encounters Date Type Specialty Care Team Description 08/20/2022 Appointment Radiology Claude Loaiza, GARCIA, P.A.-C. [address] [place] [phone] (Wo rk) 08/20/2022 Appointment Radiology Claude Loaiza MPAS, P.A.-C. [address] [place] [address] [phone] (Wo rk) 08/22/2022 Virtual Visit Urology Gibran Ruvalcaba M.D. [address] [place] [phone] (Wo rk) Scheduled Referrals Name Type Priority Associated Order Schedule Diagnoses Dermatology office Outpatient Referral Routine Ex pected: visit (clinic) 02/16/2019 (Approximate), Expires: 11/24/2021 documented as of this encounter Visit Diagnoses Diagnosis Keratosis Actinic - Primary Keratosis Seborrheic Cancer Skin Squamous Cell Personal Histo ry documented in this encounter
--- OUTSIDE RECORDS SUMMARY | 2022-07-31 11:37 | XMS_ITS | Encounter Summary ---
:1935 Author Organization [facility] Address [address] [place] [address] Care Team Providers Name Role Phone Unavailable Primary Care Provider Unavailable Reason for Visit Reason Comments Skin Check Encounter Details Date Type Department Care Team Description 06/02/2018 Office Visit Department of Aashish Pandey, Keratosis Actinic (Primary Dx); Dermatology in [place] Multiple; [place], [place] [address] [facility] Keratosis Seborrheic; [address] [place] [address] Cancer Skin Squamous [place] [phone] Social History Tobacco Use Types Packs/Day Years [...] you attend tenriism or Patient refused 2021 restorationist services? 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 - 06/02/2018 3:15 PM CDT CHIEF COMPLAINT Skin cancer screening exam HISTORY OF THE PRESENT ILLNESS Henok Chery is a pleasant 83 y.o. male with a history of multiple squamous cell carcinomas and actinic keratoses involving his face who presents for a skin cancer screening exam. 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 Hare. 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 The squamous cell carcinoma involving his left cheek was treated initially with CO2 laser in [place] and then Mohs surgery thereafter. He also has a history of squamous cell carcinomas involving his right infraorbital area, left eyebrow, and right nasal dorsum, all treated with Mohs surgery at [facility] in October 2017. Today he has one area behind his left ear which he wanted examined. His remarked the patienthas a lesion on the second digit of his right hand which he picks at frequently. He also has a history for squamous cell carcinoma involving his left index finger. He denies any personal or family history for melanoma. He does not use sunscreen. 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 Skin: I have examined the scalp, face, neck, chest, abdomen, back, bilateral upper extremities, and bilateral lower extremities. Examination reveals multiple actinic keratoses involving the right preauricular x 2, right ear helix x 3, right cheek x 2, right lateral nasal bridge x 2, left lateral nasalbridge x 2, left cheek x 3, left preauricular x 1, left ear helix x 2, right upper central border oflip x 1. Examination of the face reveals no evidence for recurrence of previous non-melanoma skin cancer. Examination of the right dorsal second finger near MCP joint reveals an actinic keratosis versus callus. He does pick at the lesion a lot. Examination of the arms, chest and back reveals multiple benign nevi and pigmented seborrheic keratoses. IMPRESSION AND PLAN #1 Face: Actinic keratosis CONSENT Discussed the risks, benefits, alternatives, and the necessity of other members of the healthcare team participating in the procedure. All questions answered and consent given. ?? PROCEDURE INFORMATION Given the precancerous nature of this lesion(s), treatment is medically indicated. After discussion of the risks, benefits and alternatives to treatment with cryotherapy, informed consent was obtained.We treated a total of 18 lesion(s) with two 20-second freeze-thaw cycles of liquid nitrogen cryotherapy. The patient tolerated the procedure well. Aftercare instructions were provided in written and verbal form to the patient. Should any of these lesions recur, the patient should return for biopsy or further evaluation. Follow up in 1-2 months for recheck if these do not completely resolve. #2 Right dorsal second finger: actinic keratosis versus callus I will treat this as an actinic keratosis. It is probably made worse by the patient picking at this lesion. CONSENT Discussed the risks, benefits, alternatives, and the necessity of other members of the healthcare team participating in the procedure. All questions answered and consent given. ?? PROCEDURE INFORMATION Given this mostly likely represents a precancerous lesion, treatment is medically indicated. After discussion of the risks, benefits and alternatives to treatment with cryotherapy, informed consent wasobtained. We treated a total of 1 lesion with two 20-second freeze-thaw cycles of liquid nitrogen cryotherapy. The patient tolerated the procedure well. Aftercare instructions were provided in written and verbal form to the patient. Should any of these lesions recur, the patient should return for biopsy or further evaluation. Follow up in 1-2 months for recheck if these do not completely resolve. Otherwise return in three months. #3 Multiple nevi The ABCDE criteria for melanoma was reviewed with the patient. None of the patient's nevi reach the clinical threshold for biopsy. I recommend continued sun protection, self-skin examinations, and observation. Should any of the patient's nevi change in size, color, texture, or shape or develop symptoms such as itching or bleeding, I recommend an immediate return visit for reassessment. Otherwise return in three months. #4 Arms, chest and back: Seborrheic Keratosis The benign nature of the skin lesion(s) was discussed with the patient. No treatment is required. I recommend continued observation. Should symptoms or changes develop related to this condition, I would recommend a return visit for reassessment. #5 Face: History of multiple squamous cell carcinomas No evidence for recurrence of squamous cell carcinomas on examination today. Follow-up immediately if any evidence for recurrence. PATIENT EDUCATION Ready to learn. No apparent learning barriers were identified. Learning preferences include listening. Explained diagnosis and treatment plan; patient/guardian of patient expressed understanding of thecontent. By signing my name below, I, Sathya Jackson, attest that this documentation has been prepared underthe direction and in the presence of Aashish Pandey M.D.. Electronically Signed: cookie Tafoya. 06/02/2018. 1:29 PM . I, Aashish Pandey M.D., personally performed the services described in this documentation. All medical record entries made by the scribe were at my direction and in my presence. I have reviewed the chart and discharge instructions (if applicable) and agree that the record reflects my personal performance and is accurate and complete. Aashish Pandey M.D. . 06/02/2018. 4:01 PM. documented in this encounter Plan of Treatment Upcoming Encounters Date Type Specialty Care Team Description 08/20/2022 Appointment Radiology Claude Loaiza MPAS, P.A.-C. 200 [place], [place] [phone] (Wo rk) 08/20/2022 Appointment Radiology Claude Loaiza MPAS, P.A.-C. [address] [place], [place] [phone] (Wo rk) 08/22/2022 Virtual Visit Urology Gibran Ruvalcaba M.D. [address] [place], [place] [phone] (Wo rk) documented as of this encounter Visit Diagnoses Diagnosis Keratosis Actinic - Primary Nevi Multiple Keratosis Seborrheic Cancer Skin Squamous Cell Personal Histo ry documented in this encounter
--- OUTSIDE RECORDS SUMMARY | 2022-07-31 11:37 | XMS_ITS | Encounter Summary ---
:1935 Author Organization [facility] Address [address] [place] [address] Care Team Providers Name Role Phone Unavailable Primary Care Provider Unavailable Reason for Referral Outpatient (Routine) - Closed Specialty Diagnoses / Procedures Referred By Contact Refer red To Contact Dermatology Aashish Pandey M.D . [address] [phone] Referral ID Status Reason Start Date Expiration Date Visits Requ ested Visits Authorized [id number] Closed 02/16/2019 02/16/2020 1 1 Reason for Visit Reason Comments Follow-up AK's on face and arms Outpatient (Routine) - Closed Specialty Diagnoses / Procedures Referred By Contact Refer red To Contact Dermatology Aashish Pandey M.D . [facility] Region [address] [place] [phone] Referral ID Status Reason Start Date Expiration Date Visits Requ ested Visits Authorized [id number] Closed 11/24/2018 11/24/2019 1 1 Encounter Details Date Type Department Care Team Description 02/16/2019 Office Visit Department of Aashish Pandey, Cancer [place] Squamous Cell Personal History (Primary Dx); Dermatology in [place] Keratosis [address] [phone] Social History Tobacco Use Types Packs/Day Years [...] you attend zoroastrianism or Patient refused 2021 jain services? Do you belong to any clubs or No 05/17/2022 organizations such as zoroastrianism groups, unions, fraWebalo or athletic groups, or school groups? 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 - 02/16/2019 8:00 AM CDT CHIEF COMPLAINT Recheck actinic keratoses HISTORY OF THE PRESENT ILLNESS Henok Chery is a pleasant 83 y.o. male accompanied by his who follows up for recheck of actinic keratoses. During our most recent visit on 11/24/18, I treated 33 actinic keratoses involving his face with liquid nitrogen cryotherapy. 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 Hare. 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 The largest of his squamous cell carcinomas involving his left cheek was initially treated with CO2 laser in [place] and then Mohs surgery thereafter. PAST MEDICAL HISTORY 1. 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 Hare at [facility] on 10/27/17 2. 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 Skin: Examination of the face and scalp reveals actinic keratoses including the right cheek x 6, right ear helix x 2, right ear pre helix x 1, nose x 4, right glabellar forehead x 1, left cheek x 7, and left ear helix x 1. Examination of the lower left ear reveals a pigmented actinic keratosis. Examination of the right third finger MCP joint reveals a 1 cm x 0.7 cm lichenified plaque. The patient picks at this frequently. Examination of the left cheek reveals scar with no evidence of recurrence of squamous cell carcinoma. Examination of the right nasal dorsum reveals no evidence of recurrence of squamous cell carcinoma.Examination of the left dorsal second finger reveals no evidence of recurrence of squamous cell carcinoma. Examination of the face otherwise reveals no evidence of recurrence of squamous cell carcinoma. IMPRESSION AND PLAN #1 Face and scalp: Actinic keratosis x 23 On clinical examination, the patient has a lichenified plaque involving the right third finger MCP joint, which he frequently picks at. 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 I recommend treatment with liquid nitrogen cryotherapy today, followed by starting Lac- Hydrin cream to involved areas 1 to 2 times daily. CONSENT Discussed the risks, benefits, alternatives, and the necessity of other members of the healthcare team participating in the procedure. All questions answered and consent given. ?? PROCEDURE INFORMATION Given the precancerous nature of this lesion(s), treatment is medically indicated. After discussion of the risks, benefits and alternatives to treatment with cryotherapy, informed consent was obtained.We treated a total of 23 lesion(s) with two 01-08-nrvdsn freeze-thaw cycles of liquid nitrogen cryoth erapy. The patient tolerated the procedure well. Aftercare instructions were provided in written andverbal form to the patient. Should any of these lesions recur, the patient should return for biopsy or further evaluation. Follow up in 1-2 months for recheck if these do not completely resolve. Otherwise recheck in 2 months. #2 Right medial infraorbital area, left eyebrow, right upper cheek, right nasal dorsum, and left dorsal second finger: History of squamous cell carcinoma status post Mohs surgery by Dr. Hare at [facility] on 10/27/17 No evidence for recurrence [...] Aashish Pandey M.D. Electronically Signed: cookie Elena. 02/16/2019. 8:06 AM . IAashish M.D., personally performed the services described in this documentation. All medical record entries made by the scribe were at my direction and in my presence. I have reviewed the chart and discharge instructions (if applicable) and agree that the record reflects my personal performance and is accurate and complete. Aashish Pandey M.D. . 02/16/2019. 8:53 AM. documented in this encounter Plan of Treatment Upcoming Encounters Date Type Specialty Care Team Description 08/20/2022 Appointment Radiology Claude Loaiza, GARCIA, P.A.-C. [address] [place], [place] [phone] (Wo rk) 08/20/2022 Appointment Radiology Claude Loaiza, GARCIA, P.A.-C. [address] [place], [place] [phone] (Wo rk) 08/22/2022 Virtual Visit Urology Gibran Ruvalcaba M.D. [address] [place], [place] [phone] (Wo rk) Scheduled Referrals Name Type Priority Associated Order Schedule Diagnoses Dermatology office Outpatient Referral Routine Ex pected: visit (clinic) 02/16/2019 (Approximate), Expires: 02/16/2022 documented as of this encounter Visit Diagnoses Diagnosis Cancer Skin Squamous Cell Personal Histo ry - Primary Keratosis Actinic documented in this encounter
--- OUTSIDE RECORDS SUMMARY | 2022-07-31 11:37 | XMS_ITS | Encounter Summary ---
:1935 Author Organization [facility] Address [address] [place] [address] Care Team Providers Name Role Phone Unavailable [...] or relatives? How often do you attend amish or Patient refused 2021 druze services? 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 [address] [place], [place] [phone] (Wo rk) 08/20/2022 Appointment Radiology Claude Loaiza MPAS, P.A.-C. [address] [place], [place] 55 [phone] (Wo rk) 08/22/2022 Virtual Visit Urology Gibran Ruvalcaba M.D. [address] [place], [place] 55 [phone] (Wo rk) documented as of this encounter Procedures Procedure Name Priority Date/Time Associated Comments Diagnosis DERMATOLOGY IMAGE Routine 10/27/2017 12:20 Result s for this EXAM PM MEDICAL PHOTOGRAPHER procedure are i n the results section. documented in this encounter Results DERMATOLOGY IMAGE EXAM (10/27/2017 12:20 PM MEDICAL PHOTOGRAPHER) Specimen (Source) Anatomical Location Collection Method / Collectio n Time Received Time / Laterality Volume Narrative IIMS - 10/27/2017 4:43 PM MEDICAL PHOTOGRAPHER This order has been created and auto-finalized [...]
--- OUTSIDE RECORDS SUMMARY | 2022-07-31 11:37 | XMS_ITS | Encounter Summary ---
:1935 Author Organization [facility] Address [address] [place] [address] Care Team Providers Name Role Phone Unavailable [...] you attend nondenominational or Patient refused 2021 pentecostalism services? 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 [address] [place], [place] [phone] (Wo rk) 08/20/2022 Appointment Radiology Claude Loaiza MPAS, P.A.-C. [address] [place], [place] [phone] (Wo rk) 08/22/2022 Virtual Visit Urology Gibran Ruvalcaba M.D. [address] [place], [place] [phone] (Wo rk) documented as of this encounter Procedures Procedure Name Priority Date/Time Associated Comments Diagnosis DERMATOLOGY IMAGE Routine 10/27/2017 12:10 Result s for this EXAM PM BRIQUETTE OPERATOR procedure are i n the results section. documented in this encounter Results DERMATOLOGY IMAGE EXAM (10/27/2017 12:10 PM BRIQUETTE OPERATOR) Specimen (Source) Anatomical Location Collection Method / Collectio n Time Received Time / Laterality Volume Narrative IIMS - 10/27/2017 4:43 PM BRIQUETTE OPERATOR This order has been created and auto-finalized [...]
--- OUTSIDE RECORDS SUMMARY | 2022-07-31 11:37 | XMS_ITS | Encounter Summary ---
:1935 Author Organization [facility] Address [address] [place] [address] Care Team Providers Name Role Phone Unavailable Primary Care Provider Unavailable Encounter Details Date Type Department Care Team Description 04/13/2019 Clinical Communication Department of Shanta Pena V., Dermatology in [address] [phone] Social History Tobacco Use Types Packs/Day Years [...] you attend christianity or Patient refused 2021 episcopalian services? 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 - 04/13/2019 5:37 PM CDT Attempted to call patient to see if patient would be willing to change the time of their appointment. Spoke with patient and they would like to keep their appointment time. documented in this encounter Plan of Treatment Upcoming Encounters Date Type Specialty Care Team Description 08/20/2022 Appointment Radiology Claude Loaiza MPAS, P.A.-C. [address] [place] [phone] (Octavio christensen) 08/20/2022 Appointment Radiology Claude Loaiza MPAS, P.A.-C. [address] [place] [phone] (Octavio christensen) 08/22/2022 Virtual Visit Urology Gibran Ruvalcaba M.D. [address] [place] [phone] (Octavio christensen) documented as of this encounter Visit Diagnoses Not on filedocumented in this encounter
--- OUTSIDE RECORDS SUMMARY | 2022-07-31 11:37 | XMS_ITS | Encounter Summary ---
:1935 Author Organization [facility] Address [address] [place] [address] Care Team Providers Name Role Phone Unavailable Primary Care Provider Unavailable Encounter Details Date Type Department Care Team Description 05/24/2015 Hospital Encounter HX RST DERM SURG OP REPLACED BY [facility] Ra yandel Hare M.D. [address] [place] [phone] (Wo rk) Social History Tobacco Use Types [...] you attend baptist or Patient refused 2021 restorationism services? 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 Pulse 69 05/24/2015 7:55 AM CDT Vital sign result from Clinical Notes. Temperature - - Respiratory Rate - - Oxygen Saturation - - Inhaled Oxygen Concentration - - Weight - - Height - - Body Mass Index - - documented in this encounter Plan of Treatment Upcoming Encounters Date Type Specialty Care Team Description 08/20/2022 Appointment Radiology Claude Loaiza MPAS, P.A.-C. [address] [place] [phone] (Wo rk) 08/20/2022 Appointment Radiology Claude Loaiza MPAS, P.A.-C. [address] [place] [phone] (Wo rk) 08/22/2022 Virtual Visit Urology Gibran Ruvalcaba M.D. [address] [place] [phone] (Wo rk) documented as of this encounter Visit Diagnoses Not on filedocumented in this encounter
--- OUTSIDE RECORDS SUMMARY | 2022-07-31 11:37 | XMS_ITS | Encounter Summary ---
:1935 Author Organization [facility] Address [address] [place] [address] Care Team Providers Name Role Phone Unavailable [...] you attend hinduism or Patient refused 2021 rastafarian services? 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 [address] [place], [place] [phone] (Wo rk) 08/20/2022 Appointment Radiology Claude Loaiza MPAS, P.A.-C. [address] [place], [place] [phone] (Wo rk) 08/22/2022 Virtual Visit Urology Gibran Ruvalcaba M.D. [address] [place], [place] [phone] (Wo rk) documented as of this encounter Procedures Procedure Name Priority Date/Time Associated Comments Diagnosis DERMATOLOGY IMAGE Routine 10/27/2017 12:25 Result s for this EXAM PM INTERACTIVE DESIGNER procedure are i n the results section. documented in this encounter Results DERMATOLOGY IMAGE EXAM (10/27/2017 12:25 PM INTERACTIVE DESIGNER) Specimen (Source) Anatomical Location Collection Method / Collectio n Time Received Time / Laterality Volume Narrative IIMS - 10/27/2017 4:45 PM INTERACTIVE DESIGNER This order has been created and auto-finalized [...]
--- OUTSIDE RECORDS SUMMARY | 2022-07-31 11:37 | XMS_ITS | Encounter Summary ---
:1935 Author Organization [facility] Address [address] [place] [address] Care Team Providers Name Role Phone Unavailable Primary Care Provider Unavailable Reason for Referral Outpatient (Routine) - Closed Specialty Diagnoses / Procedures Referred By Contact Refer red To Contact Dermatology Aashish Pandey M.D . [facility] Region [address] [place] [address] Referral ID Status Reason Start Date Expiration Date Visits Requ ested Visits Authorized [id number] Closed 09/14/2018 09/14/2019 1 1 R MANAGER Reason for Visit Reason Comments Actinic Keratosis Encounter Details Date Type Department Care Team Description 09/14/2018 Office Visit Department of Aashish Pandey, Keratosis Actinic (Primary Dx); Dermatology in [place] Keratosis Seborrheic; [place], [place] [address] [facility] Cancer Skin Squamous Cell Personal Histo ry [address] [place] [phone] Social History Tobacco Use Types Packs/Day Years [...] you attend pentecostalism or Patient refused 2021 christianity services? Do you belong to any clubs or No 05/17/2022 organizations such as pentecostalism groups, unions, fraZipdial or athletic groups, or school groups? 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 - 09/14/2018 8:00 AM CST CHIEF COMPLAINT Actinic keratoses involving face HISTORY OF THE PRESENT ILLNESS Henok Chery is a pleasant 83 y.o. 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 During our most recent visit on 06/02/18, I treated multiple actinic keratoses involving his face with liquid nitrogen cryotherapy. 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 Hare. 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 The patient does not use sunscreen. The largest of his squamous cell carcinomas involving his left cheek was initially treated with CO2 laser in [place] and then Mohs surgery thereafter. He has also had squamous cell carcinomas as noted above involving his face and more specifically the right infraorbital area, left eyebrow, and right nasal dorsum all treated with Mohs surgery [place] in October 2017. PAST MEDICAL HISTORY 1. 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 Lymph: No lymphadenopathy. Skin: Examination of the face and hands reveals multiple actinic keratoses including the right ear x2, left ear x 4, face x 15, nose x 4, left index finger near PIP joint x 2, right third finger near PIP joint x 1, right fifth finger x 1. Examination of the left ear reveals an seborrheic keratosis versus pigmented actinic keratosis. Examination of the right second finger at the PIP joint reveals a 4.5 x 5 mm slightly hyperkeratotic papule. No evidence of recurrence for squamous cell carcinoma involving the face or finger. Examination of the arms reveals some benign nevi, seborrheic keratoses, and dry skin. IMPRESSION AND PLAN #1 Face: Actinic keratosis [...] a total of 29 lesion(s) with two 15-second freeze-thaw cycles of liquid nitrogen cryotherapy. In consideration of location, one lesions underneath the right infraorbital and two lesions underneath the left infraorbital were treated with two 10-second freeze-thaw cycles of liquid nitrogen cryotherapy. The patient tolerated the procedure well. Aftercare instructions were provided in written and verbal form to the patient. Should any of these lesions recur, the patient should return for biopsy or further evaluation. Follow up in 1-2 months for recheck if these do not completely resolve. Follow up in 2-3 months for recheck of actinic keratoses. We discussed that if the actinic keratoses do not resolve with continued treatment with liquid nitrogen cryotherapy, we can consider restarting fluorouracil topical in the future. The patient has used this in the past and tolerated it well. We discussed side effects including but not limited to increased irritation. #2 Face: Seborrheic Keratosis The benign nature of the skin lesion(s) was discussed with the patient. No treatment is required. I recommend continued observation. Should symptoms or changes develop related to this condition, I would recommend a return visit for reassessment. #3 Multiple nevi The ABCDE criteria for melanoma was reviewed with the patient. None of the patient's nevi reach the clinical threshold for biopsy. I recommend continued sun protection, self-skin examinations, and observation. Should any of the patient's nevi change in size, color, texture, or shape or develop symptoms such as itching or bleeding, I recommend an immediate return visit for reassessment. #4 Face, left index finger: History of multiple squamous cell carcinomas ?? No evidence for recurrence of squamous cell carcinomas on examination today. Follow-up immediately if any evidence for recurrence. PATIENT EDUCATION Ready to learn. No apparent learning barriers were identified. Learning preferences include listening. Explained diagnosis and treatment plan; patient/guardian of patient expressed understanding of thecontent. By signing my name below, I, Alexus Lee, attest that this documentation has been prepared under the direction and in the presence of Aashish Pandey M.D.. Electronically Signed: cookie Boo. 09/14/2018. 8:03 AM . I, Aashish Pandey M.D., personally performed the services described in this documentation. All medical record entries made by the scribe were at my direction and in my presence. I have reviewed the chart and discharge instructions (if applicable) and agree that the record reflects my personal performance and is accurate and complete. Aashish Pandey M.D. . 09/14/2018. 8:26 AM. R MANAGER documented in this encounter Plan of Treatment Upcoming Encounters Date Type Specialty Care Team Description 08/20/2022 Appointment Radiology Claude Loaiza MPAS, P.A.-C. [address] [place] [phone] (Wo rk) 08/20/2022 Appointment Radiology Claude Loaiza MPAS, P.A.-C. [address] [place] [phone] (Wo rk) 08/22/2022 Virtual Visit Urology Gibran Ruvalcaba M.D. [address] [place], [place] [phone] (Wo rk) Scheduled Referrals Name Type Priority Associated Order Schedule Diagnoses Dermatology office Outpatient Referral Routine Ex pected: visit (clinic) 12/15/2018 (Approximate), Expires: 09/14/2021 documented as of this encounter Visit Diagnoses Diagnosis Keratosis Actinic - Primary Keratosis Seborrheic Cancer Skin Squamous Cell Personal Histo ry documented in this encounter
--- OUTSIDE RECORDS SUMMARY | 2022-07-31 11:39 | XMS_ITS | Clinical Summary ---
:1935 [facility] Address [address] [place] [address] Care Team Providers Name Role Phone Yamila English MD Primary Care Provider Source Comments You are receiving this document as you are listed as the primary care provider,follow-up provider, or the patient has been referred to you for consultation.This is in compliance with the Medicare and Medicaid EHR Incentive Program,which states Providers who transition their patient to another setting of careor provider of care or refers their patient to another provider of care shouldprovide summarycare record for each transition of care or referral. [employer] Allergies Active Allergy Reactions Severity Noted Date Comments Penicillins 05/02/2019 Medications Medication Sig Dispensed Refills Start Date End Date Status ammonium lactate 0 02/16/2019 Ac tive (AMLACTIN) 12 % cream GLIPIZIDE XL 5 MG 24 Take 5 mg by 2 03/23/2019 Active hour release tablet mouth daily. hydroxyurea (HYDREA) 0 03/01/2019 Active 500 MG capsule lisinopril-hydrochlorot Take 1 Tablet by 2 9 Active hiazide mouth daily. (PRINZIDE;ZESTORETIC) 10-12.5 MG tablet Active Problems No known active problems Social History Tobacco Use Types Packs/Day Years Used Date Smoking Tobacco: Never Smokeless Tobacco: Never Sex Assigned at Date Recorded Not on file Last Filed Vital Signs Vital Sign Reading Time Taken Comments Blood Pressure 130/79 05/02/2019 4:34 PM CDT Pulse - - Temperature 36.4 ??C (97.5 ??F) 05/02/2019 4:34 PM CDT Respiratory Rate - - Oxygen Saturation - - Inhaled Oxygen Concentration - - Weight 87.5 kg (193 lb) 05/02/2019 4:34 PM CDT Height 177.8 cm (5' 10) 05/02/2019 4:34 PM CDT Body Mass Index 27.69 05/02/2019 4:34 PM CDT Plan of Treatment Health Maintenance Due Date Last Done Comments Medicare Annual Wellness 1935 Visit COVID-19 Vaccine (#1) 1935 Pneumococcal 65+ Yrs (1 - 2002 PCV) Zoster/Shingles (2 of 3) 03/30/2014 02/02/2014 DTaP/Tdap/Td (1 - Tdap) 12/08/2019 12/07/2019 Influenza (#1) 2022 07/26/2019, 07/20/2018, 07/15/2017, Additional history exists HepA Aged Out 08/24/2014, 02/02/2014 No longer eligible based on patient 's age to complete this topic HepB Aged Out No longer eligib le based on patient 's age to complete this topic Hib Aged Out No longer eligib le based on patient 's age to complete this topic IPV (Polio) Aged Out No longer eligib le based on patient 's age to complete this topic MCV4 Aged Out No longer eligib le based on patient 's age to complete this topic Insurance Payer Benefit Plan / Subscriber ID Effective Phone Address T ype Group Dates MEDICARE MEDICARE [id number] 2012-Prese Med icare nt MISC INS [facility] [place] [place] COMMERCIAL [id number] 2012-Prese [employer] [place] [address] Care Teams 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
--- OUTSIDE RECORDS SUMMARY | 2022-07-31 11:39 | XMS_ITS | Clinical Summary ---
:1935 Author Organization [facility] [place] [address] Care Team Providers Name Role Phone Slava Edwards MD Primary Care Provider Allergies Active Allergy Reactions Severity Noted Date Comments Beta-Blockers (Beta-Adrenergic Blocking Bradycardia 0 12/27/2021 Agts) Penicillins *Unknown 12/27/2021 Medications Medication Sig Dispensed Refills Start Date End Date Status HYDROXYUREA ORAL Take 1,500-2,000 0 Active mg by mouth once daily. 2000 mg Friday, Friday, Friday; 1500 mg Friday, Friday, Friday, aspirin chewable 81 mg Chew 81 mg by 0 Active chewable tablet mouth once daily with a meal. omeprazole 20 mg tablet Take 20 mg by 0 Active mouth once daily. glipiZIDE (GLUCOTROL) Take 10 mg by 0 Active 10 mg tablet mouth once daily before a meal. cholecalciferol, Take 2,000 mg by 0 Active vitamin D3, (VITAMIN D3 mouth once every ORAL) other day. buPROPion (WELLBUTRIN Take 300 mg by 0 Active XL) 300 mg mouth every Extended-Release tablet morning. nitroglycerin Place 1 Tablet 25 Tablet 3 01/08/2022 Active (NITROSTAT) 0.4 mg (0.4 mg) under sublingual the tongue every tabletIndications: 5 minutes if Hyperlipidemia LDL goal needed for Chest <70 Pain. furosemide (LASIX) 20 Take 1 Tablet (20 30 Tablet 3 03/08/2022 Active mg tabletIndications: mg) by mouth once Acute systolic heart daily if needed. failure (HC) amLODIPine (NORVASC) Take 1 Tablet 90 Tablet 0 03/08/2022 Active 2.5 mg (2.5 mg) by mouth tabletIndications: once daily. 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 01/08/2022 Dilated cardiomyopathy 12/07/2021 Overview: LVEF 20-25% per TTE 12/07/2021 - etiology unclear Moderate tricuspid regurgitation 12/07/2021 Social History Tobacco Use Types Packs/Day Years Used Date Never Assessed Sex Assigned at Date Recorded Not on file Obstetrics History Last Filed Vital Signs Vital Sign Reading Time Taken Comments Blood Pressure 105/51 03/08/2022 3:13 PM CDT Pulse 63 03/08/2022 3:13 PM CDT Temperature 36.6 ??C (97.9 ??F) 01/08/2022 3:30 PM CDT Respiratory Rate 14 03/08/2022 3:13 PM CDT Oxygen Saturation 92% 01/08/2022 3:30 PM CDT Inhaled Oxygen Concentration - - Weight 76.2 kg (168 lb) 03/08/2022 3:13 PM CDT Height 175.3 cm (5' 9) 01/08/2022 9:00 AM CDT Body Mass Index 24.81 01/08/2022 9:00 AM CDT Plan of Treatment Health Maintenance Due Date Last Done Comments Pneumococcal series for age 65+ (1 - PCV) 1943 Tdap 1948 Depression screening for age 12+ 1949 BMI (ht and wt on same day) for age 18+ 1955 Zoster (shingles) series for age 50+ (1 of 1956 2) Tetanus booster 1957 Medicare Wellness for age 65+ 2002 COVID-19 vaccine series (3 - Moderna risk 03/09/20212020, 01/10/2021 series) Influenza for age 65+ 06/20/2022 Results Not on filefrom Last 3 Months Insurance Payer Benefit Plan / Subscriber ID Effective Dates Phone Addre ss Type Group MEDICARE PART B MEDICARE PART B [id number] 2002-Present ATTN: CLAIMS - HB USE ONLY HB ONLY [address] [place] [address] MEDICARE - PB MEDICARE PB [id number] 2002-Present ATT N: CLAIMS USE ONLY ONLY [address] [facility] [place] [address] [employer] [id number] 2015-Presen [address] [place] [address] Advance Directives Documents on File Type Date Recorded 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
--- OUTSIDE RECORDS SUMMARY | 2022-07-31 11:39 | XMS_ITS | Encounter Summary ---
:1935 Author [facility] Address [address] [place] [address] Care Team Providers Name Role Phone Yamila English MD Primary Care Provider Reason for Visit Procedure/Equipment (Routine) - Incomplete Specialty Diagnoses / Procedures Referred By Contact Refer red To Contact Diagnoses Pain of right hip joint Right knee pain, unspecified chronicity Bryon Richardson MD Procedures XR Pelvis W Rt Lateral Hip [address] [place] [address] Referral ID Status Reason Start Date Expiration Date Visits V isits Requested Authorized [id number] Incomplete 05/02/2019 07/31/2020 1 1 Encounter Details Date Type Department Care Team Description 05/02/2019 Ancillary [facility] Radiology Bryon Richardson, Pain of right hip joint; Procedure [address] Right knee pain, unspecified chronicity Drive [address] [address] [phone] Social History Tobacco Use Types Packs/Day Years Used Date Smoking Tobacco: Never Smokeless Tobacco: Never Sex Assigned at Date Recorded Not on file documented as of this encounter Plan of Treatment Not on filedocumented as of this encounter Procedures Procedure Name Priority Date/Time Associated Diagnosis Comme nts XR PELVIS W RT Routine 05/02/2019 5:19 PM Pain of right hip Re sults for this LATERAL HIP CDT joint procedure are in Right knee pain, the results unspecified section. chronicity documented in this encounter Results XR Pelvis W Rt Lateral Hip (05/02/2019 5:19 PM CDT) Anatomical Region Laterality Modality Pelvis, Hip Digital Radiography Specimen (Source) Anatomical Collection Method Collection Time Re ceived Time Location / / Volume Laterality 05/02/2019 4:56 PM CDT Impressions 05/02/2019 5:26 PM CDT COMPARISON: ??None. FINDINGS: ??AP view the pelvis and singl e view of the right hip. No significant joint space narrowing or degenerative change in either hip or the SI joints. Moderate to severe degenerative change in the visualized lower lumbar spine with prob able scoliosis. No acute osseous abnormality. Procedure Note Bryon Olvera MD - 05/02/2019Format ting of this note might be different from the original. IMPRESSION COMPARISON: None. FINDINGS: AP view the pelvis and single view of the right hip. No significant joint space narrowing or degenerative change in either hip or the SI joints. Moderate to severe degenerative change in the visualized lower lumbar spine with probable scolios is. No acute osseous abnormality. Bryon Richardson MD RAD GD documented in this encounter Visit Diagnoses Diagnosis Pain of right hip joint Right knee pain, unspecified chronicity documented in this encounter Care Teams Media Specialist Relationship Specialty Start Date End Date Yamila English MD PCP - General 10/11/[address] [place] [address] documented as of this encounter
--- OUTSIDE RECORDS SUMMARY | 2022-07-31 11:40 | XMS_ITS | Encounter Summary ---
:1935 Author Organization [facility] Address [address] [place] [address] Care Team Providers Name Role Phone Yamila English MD Primary Care Provider Reason for Visit Procedure/Equipment (Routine) - Incomplete Specialty Diagnoses / Procedures Referred By Contact Refer red To Contact Diagnoses Pain of right hip joint Right knee pain, unspecified chronicity Bryon Richardson MD Procedures XR Knee Rt 3 Views [address] [facility] [facility] [address] [place] [address] Referral ID Status Reason Start Date Expiration Date Visits V isits Requested Authorized [id number] Incomplete 05/02/2019 07/31/2020 1 1 Encounter Details Date Type Department Care Team Description 05/02/2019 Ancillary [facility] Bryon Richardson, Pain of right hip joint; Procedure [address] Right knee pain, unspecified chronicity Drive [address] [facility] [place] [address] [phone] Social History Tobacco Use Types Packs/Day Years Used Date Smoking Tobacco: Never Smokeless Tobacco: Never Sex Assigned at Date Recorded Not on file documented as of this encounter Plan of Treatment Not on filedocumented as of this encounter Procedures Procedure Name Priority Date/Time Associated Diagnosis Comme nts XR KNEE LT 1-2 VIEWS Routine 05/02/2019 5:19 PM Pain of right hip Results for this COMPARISON CDT joint procedure are in Right knee pain, the results unspecified section. chronicity XR KNEE RT 3 VIEWS Routine 05/02/2019 5:19 PM Pain of right hi p Results for this CDT joint procedure are in Right knee pain, the results unspecified section. chronicity documented in this encounter Results XR Knee Lt 1-2 Views Comparison (05/02/2019 5:19 PM CDT) Anatomical Region Laterality Modality Lower Extremity, Knee Digital Radiograph y Specimen (Source) Anatomical Collection Method Collection Time Re ceived Time Location / / Volume Laterality 05/02/2019 4:55 PM CDT Impressions 05/02/2019 5:24 PM CDT COMPARISON: ??10/11/2013. FINDINGS: ?? Right knee: 3 views. Severe lateral comp artment degenerative change with joint space narrowing, xuki-ti-zxfl articulation and osteophyte formation, similar. Mild joint space narrowing and osteophyte for mation the medial compartment, similar. Mild undersurface patellar spur formation without significant patellofemoral degenerative change. No significant joint effusion. No acute osseous abnormality. Left knee: 2 views. Mild joint space yelitza rowing in the medial and lateral compartments with osteophyte formation, similar. No significant patellofemoral joint space narrowing. No acute osseous abnormality. Procedure Note Bryon Olvera MD - 05/02/2019Format ting of this note might be different from the original. IMPRESSION COMPARISON: 10/11/2013. FINDINGS: Right knee: 3 views. Severe lateral comp artment degenerative change with joint space narrowing, xnpc-we-eosr articulation and osteophyte formation, similar. Mild joint space narrowing and osteophyte formation the medial compartment, similar. Mild undersurface patellar spur formation without significant patellofemoral degenerative change. No significant joint effusion. No acute osseous abnormality. Left knee: 2 views. Mild joint space yelitza rowing in the medial and lateral compartments with osteophyte formation, similar. No significant patellofemoral joint space narrowing. No acute osseous abnormality. Bryon Richardson MD RAD GD XR Knee Rt 3 Views (05/02/2019 5:19 PM CDT) Anatomical Region Laterality Modality Lower Extremity, Knee Digital Radiograph y Specimen (Source) Anatomical Collection Method Collection Time Re ceived Time Location / / Volume Laterality 05/02/2019 4:55 PM CDT Impressions 05/02/2019 5:24 PM CDT COMPARISON: ??10/11/2013. FINDINGS: ?? Right knee: 3 views. Severe lateral comp artment degenerative change with joint space narrowing, haet-my-oodw articulation and osteophyte formation, similar. Mild joint space narrowing and osteophyte for mation the medial compartment, similar. Mild undersurface patellar spur formation without significant patellofemoral degenerative change. No significant joint effusion. No acute osseous abnormality. Left knee: 2 views. Mild joint space yelitza rowing in the medial and lateral compartments with osteophyte formation, similar. No significant patellofemoral joint space narrowing. No acute osseous abnormality. Procedure Note Bryon Olvera MD - 05/02/2019Format ting of this note might be different from the original. IMPRESSION COMPARISON: 10/11/2013. FINDINGS: Right knee: 3 views. Severe lateral comp artment degenerative change with joint space narrowing, vvao-cf-oigk articulation and osteophyte formation, similar. Mild joint space narrowing and osteophyte formation the medial compartment, similar. Mild undersurface patellar spur formation without significant patellofemoral degenerative change. No significant joint effusion. No acute osseous abnormality. Left knee: 2 views. Mild joint space yelitza rowing in the medial and lateral compartments with osteophyte formation, similar. No significant patellofemoral joint space narrowing. No acute osseous abnormality. Bryon Richardson MD RAD GD documented in this encounter Visit Diagnoses Diagnosis Pain of right hip joint Right knee pain, unspecified chronicity documented in this encounter Care Teams Revenue Field Agent Relationship Specialty Start Date End Date Yamila English MD PCP - General 10/11/[address] [place] [address] documented as of this encounter
--- OUTSIDE RECORDS SUMMARY | 2022-07-31 11:40 | XMS_ITS | Encounter Summary ---
:1935 Author Organization [facility] Address [address] [place] [address] Care Team Providers Name Role Phone Yamila English MD Primary Care Provider Encounter Details Date Type Department Care Team Description 10/11/2013 Imaging [facility] Knee pain [address] [place], [place] [address] Social History Tobacco Use Types Packs/Day Years Used Date Smoking Tobacco: Never Assessed Sex Assigned at Date Recorded Not on file documented as of this encounter Plan of Treatment Not on filedocumented as of this encounter Procedures Procedure Name Priority Date/Time Associated Comments Diagnosis XR KNEE LT 1-2 VIEWS Routine 10/11/2013 12:05 PM Knee pain Results for this COMPARISON RELOCATION MANAGER procedure are i n the results section. XR KNEE RT 3 VIEWS Routine 10/11/2013 12:05 PM Knee pain Re sults for this RELOCATION MANAGER procedure are i n the results section. documented in this encounter Results XR Knee Lt 1-2 Views Comparison (10/11/2013 12:05 PM RELOCATION MANAGER) Anatomical Region Laterality Modality Lower Extremity, Knee Other Specimen (Source) Anatomical Location Collection Method / Collectio n Time Received Time / Laterality Volume Narrative 10/14/2013 8:05 PM RELOCATION MANAGER Three views of the right knee: INDICATION: Pain. FINDINGS: Lateral compartment and patell ofemoral compartment joint space narrowing and osteophyte formation. Two views of the left knee: INDICATION: Pain. FINDINGS: Patellofemoral compartment massiel nt space narrowing. Procedure Note David Francisco MD - 04/06/2016Formatt ing of this note might be different from the original. Three views of the right knee: INDICATION: Pain. FINDINGS: Lateral compartment and patell ofemoral compartment joint space narrowing and osteophyte formation. Two views of the left knee: INDICATION: Pain. FINDINGS: Patellofemoral compartment massiel nt space narrowing. David CHOE XR Knee Rt 3 Views (10/11/2013 12:05 PM RELOCATION MANAGER) Anatomical Region Laterality Modality Lower Extremity, Knee Other Specimen (Source) Anatomical Location Collection Method / Collectio n Time Received Time / Laterality Volume Narrative 10/14/2013 8:05 PM RELOCATION MANAGER Three views of the right knee: INDICATION: Pain. FINDINGS: Lateral compartment and patell ofemoral compartment joint space narrowing and osteophyte formation. Two views of the left knee: INDICATION: Pain. FINDINGS: Patellofemoral compartment massiel nt space narrowing. Procedure Note David Francisco MD - 04/06/2016Formatt ing of this note might be different from the original. Three views of the right knee: INDICATION: Pain. FINDINGS: Lateral compartment and patell ofemoral compartment joint space narrowing and osteophyte formation. Two views of the left knee: INDICATION: Pain. FINDINGS: Patellofemoral compartment massiel nt space narrowing. David CHOE documented in this encounter Visit Diagnoses Diagnosis Knee pain Pain in joint, lower leg documented in this encounter Care Teams Double End Production Grinder Relationship Specialty Start Date End Date Yamila English MD PCP - General 10/11/[address] [place] [address] documented as of this encounter
--- OUTSIDE RECORDS SUMMARY | 2022-07-31 11:40 | XMS_ITS | Encounter Summary ---
:1935 Author Organization [facility] Address [address] [place] [address] Care Team Providers Name Role Phone Yamila English MD Primary Care Provider Reason for Referral Procedure/Equipment (Routine) - Incomplete Specialty Diagnoses / Procedures Referred By Contact Refer red To Contact Diagnoses Pain of right hip joint Right knee pain, unspecified chronicity Bryon Richardson MD Procedures XR Pelvis W Rt Lateral Hip [address] [facility] [address] [place] [address] Referral ID Status Reason Start Date Expiration Date Visits V isits Requested Authorized [id number] Incomplete 05/02/2019 07/31/2020 1 1 Procedure/Equipment (Routine) - Incomplete Specialty Diagnoses / Procedures Referred By Contact Refer red To Contact Diagnoses Pain of right hip joint Right knee pain, unspecified chronicity Bryon Richardson MD Procedures XR Knee Lt 1-2 Views Comparison [address] [facility] [address] [place] [address] Referral ID Status Reason Start Date Expiration Date Visits V isits Requested Authorized [id number] Incomplete 05/02/2019 07/31/2020 1 1 Procedure/Equipment (Routine) - Incomplete Specialty Diagnoses / Procedures Referred By Contact Refer red To Contact Diagnoses Pain of right hip joint Right knee pain, unspecified chronicity Bryon Richardson MD Procedures XR Knee Rt 3 Views [address] [facility] [place] [address] Referral ID Status Reason Start Date Expiration Date Visits V isits Requested Authorized [id number] Incomplete 05/02/2019 07/31/2020 1 1 Reason for Visit Reason Comments Knee Pain or Injury right Encounter Details Date Type Department Care Team Description 05/02/2019 Office Visit [facility] Bryon Richardson, Low [place] k pain radiating to right leg (Primary Dx); Urgent Care MD Pain of right hip joint; [address] [facility] Right knee pain, unspecified chronicity; [place] [address] [facility] [place] Posterior right knee pain; [phone] Hip injury, right, initial encounter [phone] (Wo rk) Social History Tobacco Use Types Packs/Day Years Used Date Smoking Tobacco: Never Smokeless Tobacco: Never Sex Assigned at Date Recorded Not on file documented as of this encounter Last Filed [...] Mass Index 27.69 05/02/2019 4:34 PM CDT documented in this encounter Patient Instructions Patient InstructionsLejagjit, Bertin Chaves, MA - 05/02/2019 4:[address] Bryon Richardson MD Sports & Orthopaedic Medicine [facility] Medication Requests: Prescriptions are not filled on Weekends or on Weekdays after 3:00PM For all medication refills: Request a refill using MyChart or contact your Pharmacy [facility] Nurse Line: Please contact [facility] Nurse line for all medical requests and questions at [phone] MRI Scheduling: To schedule an MRI at [facility] please call [phone] Paperwork Requests: Questions regarding FMLA or disability paperwork please call [phone] Phone lines are answered 8AM to 5PM Friday - Friday Workers??? Compensation: Please contact our department for any Work Comp concerns at Email: [email or web address] Right osteo arthritis knee Make appointment for injection in may Right lumbar radiculopathy Call back for MRI documented in this encounter Progress Notes Bryon Richardson MD - 05/02/2019 12:00 PM CDT NAME: BLAKE SUTTON MR#: [id number] CSN: [id number] AUTHENTICATING CLINICIAN: Bryon Richardson MD CONFIRM #: [id number] LOC: 711 CLINIC PROGRESS NOTE DATE OF VISIT: 05/02/2019 : 1935 SUBJECTIVE: This is an 83-year-old male who was brought in by his family for pain along the back of his right hip which radiates into the back of his right knee and lower leg after he stumbled when he tripped a couple of days ago. He has known lateral compartment osteoarthritis of the right knee and has had previous cortisone in February of this year. He is getting some numbness and tingling and pain that radiates from the back of his hip into his right leg. REVIEW OF SYSTEMS: No fevers, chills, joint pain or swelling in other joints. He continues getting some numbness and tingling in the right leg but no bowel or bladder incontinence. CURRENT MEDICATIONS/ALLERGIES: Reviewed on EMR. PAST MEDICAL HISTORY: Right knee osteoarthritis, polycythemia vera, diabetes, skin cancer. SOCIAL HISTORY: He is retired. He does not exercise regularly but does walk and ride a bike occasionally. He denies tobacco. PHYSICAL EXAMINATION: VITAL SIGNS: Temperature 97.5, height 5 feet 10 inches, weight 193 pounds. Blood pressure is 130/79.Pain 7 to 8 OUT OF 10. GENERAL: He is alert and pleasant, in no acute distress. Musculoskeletal: He ambulates favoring his right knee and leg. On inspection of the right knee, there are no overlying skin changes. He has tenderness mainly posteriorly and laterally. Motion is somewhat limited secondary to pain over these areas. On inspection of his low back, there are no overlying skin changes or alignment abnormalities. He has tenderness along the paraspinous muscles of the SI joint and sciatic notch. Motion is somewhat limited with flexion, extension, lateral bending, and axial rotation. Straight leg raise is positive for pain but no numbness or tingling. He has normal sensation and deep tendon reflexes. RADIOLOGY REVIEW: X-rays, 3 views of the right knee with 2 views of the left for comparison compared to 10/11/2013, studies are read as severe lateral compartment degenerative changes with joint space narrowing, ahsh-ro-migd articulation and osteophyte formation, similar. Mild joint space narrowing and osteophyte format ion of the medial compartment, similar. Mild undersurface patellar spur formation without significant patellofemoral degenerative change. No significant joint effusion. No osseous abnormality. Left knee mild joint space narrowing in the medial and lateral compartments with osteophyte formation, similar. No significant patellofemoral joint space narrowing. No acute osseous abnormality. This was read by Bryon Olvera MD. X-rays, AP of the pelvis and right lateral hip series, are read as no significant joint space narrowing or degenerative change in either hip or the SI joints. Moderate to severe degenerative change in the visualized lower lumbar spine with probable scoliosis. No acute osseous abnormality. This is read by Bryon Olvera MD. ASSESSMENT: Right low back hip and leg symptoms exacerbated from a trip but no fall earlier this week, consistent with lumbar radiculopathy in a patient with underlying knee and hip osteoarthritis. PLAN: Reviewed the x-ray findings and diagnoses with the patient and his and son. We discussed the possibility of advanced imaging with an MRI of the lumbar spine to evaluate for disk disease leading tonerve root impingement. He will consider this. He also will consider repeating a cortisone injectionfor his right knee. He just had one 2 months ago, so we will wait on this for another month. He is here with his family, understands the plan. He will continue with other symptomatic management as he has been in the meantime. BILL:CHRISTINA C: R:05/02/19 18:12 CONFIRM#:[id number] documented in this encounter Plan of Treatment Not on filedocumented as of this encounter Results XR Pelvis W Rt [...] Bryon Richardson MD RAD GD XR Knee Lt 1-2 Views Comparison (05/02/2019 5:19 PM CDT) Anatomical Region Laterality Modality Lower Extremity, Knee Digital Radiograph y Specimen (Source) Anatomical Collection Method Collection Time Re ceived Time Location / / Volume Laterality 05/02/2019 4:55 PM CDT Impressions 05/02/2019 5:24 PM CDT COMPARISON: ??10/11/2013. FINDINGS: ?? Right knee: 3 views. Severe lateral comp artment degenerative change with joint space narrowing, ggdn-mq-irql articulation and osteophyte formation, similar. Mild joint [...] artment degenerative change with joint space narrowing, scps-dz-xont articulation and osteophyte formation, similar. Mild joint [...] artment degenerative change with joint space narrowing, gynz-bw-gbcg articulation and osteophyte formation, similar. Mild joint [...] artment degenerative change with joint space narrowing, iorg-el-lcrn articulation and osteophyte formation, similar. Mild joint [...] documented in this encounter Visit Diagnoses Diagnosis Low back pain radiating to right leg - P rimary Lumbago Pain of right hip joint Right knee pain, unspecified chronicity Posterior right knee pain Hip injury, right, initial encounter Pain of right hip joint Right knee pain, unspecified chronicity Pain of right hip joint Right knee pain, unspecified chronicity documented in this encounter Care Teams Housekeeper Relationship Specialty Start Date End Date Yamila English MD PCP - General 10/11/[address] [place] [address] documented as of this encounter
--- OUTSIDE RECORDS SUMMARY | 2022-07-31 11:40 | XMS_ITS | Encounter Summary ---
:1935 Author Organization [facility] Address [address] [address] Care Team Providers Name Role Phone Yaneth English MD Primary Care Provider Reason for Visit Reason Comments INJURY, HIP Back Pain INJURY, KNEE Encounter Details Date Type Department Care Team Description 10/11/2013 Office Visit [facility] David Francisco, Emeka finn joint disease of knee (Primary Dx); Urgent Care Knee pain [address] [facility] [address] [place] [address] [place], [place] [address] [phone] (Wo rk) Social History Tobacco Use Types Packs/Day Years Used Date Smoking Tobacco: Never Assessed Sex Assigned at Date Recorded Not on file documented as of this encounter Last Filed Vital Signs Vital Sign Reading Time Taken Comments Blood Pressure 120/86 10/11/2013 11:23 AM PLATE DRYING MACHINE TENDER Pulse - - Temperature 37.1 ??C (98.8 ??F) 10/11/2013 11:23 AM PLATE DRYING MACHINE TENDER Respiratory Rate - - Oxygen Saturation - - Inhaled Oxygen Concentration - - Weight 93.9 kg (207 lb) 10/11/2013 11:23 AM PLATE DRYING MACHINE TENDER Height 168.9 cm (5' 6.5) 10/11/2013 11:23 AM PLATE DRYING MACHINE TENDER Body Mass Index 32.91 10/11/2013 11:23 AM PLATE DRYING MACHINE TENDER documented in this encounter Patient Instructions Patient InstructionsLiberty Cedeño - 10/11/2013 1:[address] David Francisco MD Sports & Orthopaedic Medicine [facility] Senior Accounting Analyst: Colette Loges Please fax all paperwork correspondence to [phone] [facility] Nurse Line: [phone] Please contact [facility] Nurse line for all requests and questions. Please contact your Pharmacy for all medication refill requests E DRYING MACHINE TENDER documented in this encounter Progress Notes David Francisco MD - 10/11/2013 9:46 PM CST Progress Notes signed by David Francisco MD at 10/14/132013 Author: David Francisco MD Service: (none) Author Type: Physician Filed: 10/14/132013 Note Time: 10/12/13828 Status: Signed Raw Finish Mill Operator: David Francisco MD (Physician) NAME: BLAKE SUTTON MR#: [id number] CSN: [id number] AUTHENTICATING CLINICIAN: David Francisco MD CONFIRM #: [id number] LOC: 711 CLINIC PROGRESS NOTE DATE OF VISIT: 10/11/2013 : 1935 CHIEF COMPLAINT: Knee pain. HISTORY OF PRESENT ILLNESS: This 78-year-old male presents for evaluation of knee pain that has been on and off for years, he thinks maybe 2-10 years. There was no recent trauma or injury. He has recently been to a chiropractor. He has got some pain with walking. REVIEW OF SYSTEMS: No fever, rash, numbness or tingling. PAST MEDICAL HISTORY: Negative for diabetes. PAST SURGICAL HISTORY: No surgery on his knee. SOCIAL HISTORY: He is a nonsmoker. PHYSICAL EXAM: Temperature 97.9. Skin normal. Capillary refill normal. Neurologic normal. Evaluation of his right knee reveals a knee effusion. Tender to palpation along the patellar retinaculum and lateral joint line. The extensor mechanism is intact. Range of motion is 120 degrees of knee flexion to 0 degrees of knee extension. Ligamentous exam is normal. IMAGING: Three views of the right knee were obtained. INDICATION: Pain. FINDINGS: Lateral compartment and patellofemoral compartment joint space narrowing and osteophyte formation. Two views of the left knee: INDICATION: Pain. FINDINGS: Patellofemoral compartment joint space narrowing. ASSESSMENT: Right knee osteoarthritis. PLAN: Educated the patient regarding his condition and management. After a discussion of the risks and benefits he wished to proceed with a cortisone injection. PROCEDURE: His right knee was prepped in the normal sterile fashion using aseptic technique and 9 mL of 1% lidocaine and 40 mg triamcinolone were injected into his right knee without difficulty. There were no immediate complications. He can followup on an as needed basis. He was given some instructions on activity modifications and symptomatic treatment. He verbalized understanding. CWM:URIEL C: R:10/11/13 21:57 CONFIRM#:[id number] E DRYING MACHINE TENDER documented in this encounter Plan of Treatment Not on filedocumented as of this encounter Visit Diagnoses Diagnosis Degenerative joint disease of knee - Idalia yaneth Osteoarthrosis, unspecified whether gene ralized or localized, lower leg Knee pain Pain in joint, lower leg documented in this encounter Care Teams Extension Associate Relationship Specialty Start Date End Date Yaneth English MD PCP - General 10/11/[address] [place] [address] documented as of this encounter
--- OUTSIDE RECORDS SUMMARY | 2022-07-31 11:40 | XMS_ITS | Encounter Summary ---
:1935 Author Organization [facility] Address [address], [place] [address] Care Team Providers Name Role Phone Unavailable Primary Care Provider Unavailable Reason for Visit Reason Onset Date Comments Refill 02/13/2011 Encounter Details Date Type Department Care Team Description 02/13/2011 [facility]ill [facility] Bryon Villatoro MD Refill [facility] [address] [facility] [place] [address] [place] [address] [phone] Social History Tobacco Use Types Packs/Day Years Used Date Smoking Tobacco: Never Assessed Sex Assigned at Date Recorded Not on file documented as of this encounter Plan of Treatment Not on filedocumented as of this encounter Visit Diagnoses Not on filedocumented in this encounter
[2022-07-31 11:45] LABS: HCO3 VBG 27 mmol/L (21-28); Lactate* 1.7 mmol/L (0.5-1.9); PCO2 VBG 45 mmHG (40-50); PO2 VBG 54.3 mmHG (25-47); pH VBG 7.389 (7.32-7.43)
[2022-07-31 11:47] LABS: Basophils Absolute Auto 0.04 K/uL (0.00-0.30); Basophils Percent Auto 0.5 % (0.0-3.0); Eosinophils Absolute Auto 0.07 K/uL (0.00-0.50); Eosinophils Percent Auto 0.9 % (0.0-7.0); Hematocrit 27.4 % (37.0-53.0); Immature Granulocytes Abs Auto 0.04 K/uL (0.00-0.30); Lymphocytes Percent Auto 4.3 % (20-44); Mean Corpuscular HGB Conc 29 gm/dL (32-36); Mean Corpuscular Hemoglobin 30 pg (26-34); Mean Corpuscular Volume 104 fL (80-100); Monocytes Percent Auto 3.7 % (0.0-11.0); Neutrophils Percent Auto 90.1 % (42.0-72.0); Platelet Count* 490 K/uL (140-440); RDW Coefficient of Variation % 19.7 % (11.5-15.5); Red Blood Count 2.63 m/uL (4.30-5.90); Slide Review Reflex Yes; White Blood Count* 8.07 K/uL (4.50-11.00)
[2022-07-31 11:48] LABS: Slide Review Acceptable Review (Acceptable)
[2022-07-31 12:13] LABS: Chloride* 101 mmol/L (96-114)
[2022-07-31 12:14] LABS: Potassium* 4.7 mmol/L (3.6-5.1); Sodium* 136 mmol/L (135-149)
[2022-07-31 12:16] LABS: Aspartate Amino Transferase* 22 U/L (12-35); Bilirubin Total* 0.6 mg/dL (0.1-1.5); Carbon Dioxide* 25 mmol/L (20-32); Creatinine* 1.4 mg/dL (0.5-1.5); Est. Creatinine Clearance* 38.58; Estimated Glomerular Filt Rate 49 ml/min; Total Protein* 6.3 g/dL (6.0-8.3); Troponin, Point-of-Care* 0.01 ng/ml (0.01-0.04)
[2022-07-31 12:17] LABS: Alanine Aminotransferase* 23 U/L (4-50); Alkaline Phosphatase* 132 U/L (40-150); Blood Urea Nitrogen* 45 mg/dL (7-30); Calcium* 8.8 mg/dL (8.4-10.6); Glucose* 157 mg/dL (60-115)
[2022-07-31 12:25] LABS: PCR FLU A Negative PCR FLU A (Negative); PCR FLU B Negative PCR FLU B (Negative); PCR RSV Negative PCR RSV (Negative); SARS PCR* Negative SARS-CoV-2 (Negative)
[2022-07-31 12:25] LABS: NT Pro B Type NatriureticPept* 6600 PG/mL (0-450)
[2022-07-31 12:34] LABS: C Reactive Protein* < 0.5 mg/dL (0.5-1.0)
[2022-07-31] MEDS: FUROSEMIDE 10 MG/ML inj 20 MG IVP (14:14)
--- NOTE | 2022-07-31 14:20 | ED.NURSE ---
angelica powell rn aware of admission. and petra aware of need to transfer. did get iv lasix.
--- NOTE | 2022-07-31 14:46 | ED.NURSE ---
heart rate has been counting his bigeminal pvcs. perfusion-pulse oximeter was 1/2 of his heart rate. bp has been stable. deies pain.
--- NOTE | 2022-07-31 14:52 | W.PC.EDHO ---
Primary Language: Preferred Language: Orientation Status: [] Alert & Oriented [] Slight Confusion [] Known Dx Dementia Transfers By: [] Assist of 1 [] Assist of 2 [] Lift Active Medications Discontinued Medications Generic Name Dose Route Start Last Admin Trade Name Eric PRN Reason Stop Dose Admin Furosemide 20 mg 07/31/22 12:48 07/31/22 14:14 Furosemide 10 Mg/Ml Inj IVP 07/31/22 12:49 20 mg ONCE ONE Administration Description of Symptoms ED Triage Present Problem patient has been having heart rate going low as 29 Description and is all over. feeling sob, tired, and pulse ox 80's% room air. placed O2 on which has at home helped to recover. 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 COVID and pnx in February sent home with O2 ED Triage Date of Onset of 07/31/22 Symptoms IV Insertion/Site Date of IV Line Insertion [ 07/31/22 Left Forearm] Oxygen Administration Pulse Oximetry 95 Pulse Oximetry 96 Pulse Oximetry 95 Pulse Oximetry 80 Pulse Oximetry 95 Pulse Oximetry 23 Pulse Oximetry 94 Pulse Oximetry 84 Pulse Oximetry 85 Oxygen Delivery Method Room Air Oxygen Delivery Method Room Air Oxygen Delivery Method Room Air Oxygen Delivery Method Room Air Oxygen Delivery Method Room Air Oxygen Delivery Method Room Air Oxygen Delivery Method Room Air Oxygen Delivery Method Room Air Cardiac Monitoring EKG Method SpaceLabs EKG Method 12 Lead Cardiac Ectopy Frequent PVCs,Bigeminal PVCs
--- OUTSIDE RECORDS SUMMARY | 2022-07-31 15:44 | XMS_ITS | Clinical Summary ---
:[address] [facility] Address [address] [place] [address] Care Team Providers Name Role Phone Elsewhere, Pcp Primary Care Provider Unavailable Source Comments Patient records contain information from all sites at [facility]. For routine questions regarding patient records, call [phone] during business hours, M-F 8:00 AM - 5:00 PM Central Time. Record requests for emergency care only can be directed to [phone] at any time.[facility] Allergies Active Allergy Reactions Severity Noted Date [...] Encounters Date Type Specialty Care Team Description 07/31/2022 Hospital Encounter Michelle Ortiz M.D. 07/02/2022 Hospital Encounter Radiology Gibran Ruvalcaba Malignant Neoplasm Of Bladder (HCC); Ashtyn Gardner Hydronephrosis Beatriz Leblanc M.D. [place], [place], M.D. 07/01/2022 Clinical Urology Gibran Ruvalcaba Communication Ashtyn Gardner 06/19/2022 Clinical Urology Gibran Ruvalcaba Communication Ashtyn Gardner 06/14/2022 Procedure visit Urology Gibran Ruvalcaba Malignant Ne oplasm Of Ashtyn Gardner Bladder (HCC) (Primary Dx) 06/14/2022 Procedure visit Urology Gibran Ruvalcaba Malignant Ne oplasm Of Ashtyn Gardner Bladder ([facility]) 06/14/2022 Comprehensive Visit Urology Gibran Ruvalcaba t Neoplasm Of Ashtyn Gardner Bladder ([facility]) (Primary Dx) 06/03/2022 Procedure visit Urology Armida Botello Stricture Urethral Postoperative Male (Primary Dx); L, AMORTIZATION SCHEDULE CLERK, Hydronephrosis; C.N.P., D.N.P. Malignant Neoplasm Of Bladder (HCC) Lo Sewell S, AMORTIZATION SCHEDULE CLERK, C.N.P., D.N.P. 05/23/2022 Hospital Encounter Radiology Armida Botello Hydron ephrosis L, AMORTIZATION SCHEDULE CLERK, C.N.P., D.N.P. 05/21/2022 Clinical Urology Bassam Klein Appointment Cancelled Communication Ashtyn Ayala 05/20/2022 Hospital Encounter Radiology Frankie, Malignant Neoplasm Of Nura A IV, Bladder ([facility]) Bryon Romo M.D., Ph.D. 05/20/2022 Orders Only Urology Frankie, Malignant Neopl asm Of Nura A IV, Bladder ([facility]) Ashtyn (Primary Dx) 05/17/2022 Hospital Encounter Laboratory Armida Botello Hydron ephrosis; Medicine L, AMORTIZATION SCHEDULE CLERK, Malignant Neopl asm Of Bladder (HCC) C.N.P., D.N.P. 05/17/2022 Hospital Encounter Laboratory Armida Botello Hydron ephrosis; Medicine L, AMORTIZATION SCHEDULE CLERK, Malignant Neopl asm Of Bladder ([facility]) C.N.P., D.N.P. 05/17/2022 Procedure visit Urology Armida Botello Hydroneph rosis; L, AMORTIZATION SCHEDULE CLERK, Malignant Neopl asm Of Bladder (HCC); C.N.P., D.N.P. Retention Urinary Lalita Dewitt R.N. 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 from Last 3 Months Social History [...] you attend moravian or Patient refused 2021 jew services? Do you belong to any clubs [...] or slept in a retirement (including now)? Education Answer Date Recorded What is the highest level of school you have completed or 12 th grade 05/17/2022 the highest degree you have received? Sex Assigned at Date Recorded Male 09/10/2018 8:41 AM CPAS Last Filed Vital Signs Vital Sign Reading [...] Description 08/20/2022 Appointment Radiology Claude Loaiza MPAS PJluisAJluis-CJluis [address] [place], [place] [phone] (Wo rk) 08/20/2022 Appointment Radiology Claude Loaiza MPAS, P.AJluis-C. [address] [place] [phone] (Wo rk) 08/22/2022 Virtual Visit Urology Gibran Ruvalcaba M.D. [address] [place], [place] [phone] (Wo rk) Health Maintenance [...] Name Priority Date/Time Associated Diagnosis Comme nts OUTSIDE DX CHEST Routine 07/31/2022 Results for 11:55 AM CDT this procedure are in the results section. IR NEPHROSTOMY RAD - Routine 07/02/2022 8:44 Malignant Neoplasm Res ults for TUBE EXCHANGE LEFT (most inpatients AM CDT Of Bladder ( HCC) this procedure and all Hydronephrosis are in the outpatients) results section. OUTSIDE DX CHEST Routine 06/19/2022 2:30 Results for PM CDT this procedure are in the results section. [place] INJ ANTEGRD Routine 06/14/2022 2:29 Malignant Neoplasm [...] results section. from Last 3 Months Results XR chest 1V portable-Outside Chest Xray (07/31/2022 11:55 AM CDT)Only the most recent of2 resultswithin the time period is included. Specimen (Source) Anatomical Collection Method Collection Time Re ceived Time Location / / Volume Laterality 07/31/2022 11:52 AM CDT Narrative [facility] - 07/31/2022 1:11 PM CDT This order has been created and auto-finalized to support the import of outside images. If available, original i nterpretation can be found on the Media Tab in Chart Review, in Document V iewer, or as an image in QREADS. If a re-interpretation or overread is re quired please follow defined workflow. ?? Provider Not In System IMG DIAGNOSTIC IMAGING [facility] Performing Organization Address City/State/ZIP Code Phon e Number I[facility] NA IR Nephrostomy Tube Exchange Left (07/02/2022 8:44 [...] d raining. TECHNIQUE: Prone positioning. Fluoroscop ic drier take off tender image demonstrates the likely malpositioning of the [...] Over a torque wire, a new 12 [place] by 25 cm pigtail catheter was advanced [...] d raining. TECHNIQUE: Prone positioning. Fluoroscop ic drier take off tender image demonstrates the likely malpositioning of the [...] Over a torque wire, a new 12 [place] by 25 cm pigtail catheter was advanced [...] Ruvalcaba M.D. Authorized by: Claude Loaiza MPAS, P.A.-CJluis Claude ZELAYA P.A.-C. UROLOGY ORDERABLES URO Cystoscopy (general) (06/03/2022 8:51 AM CDT) Specimen (Source) Anatomical Location Collection Method / Collectio n Time Received Time / Laterality Volume Narrative Lo Sewell APRN, C.NRichelle, EdwigeN.P. - 06/03/2022 8:51 AM CDT Lo Sewell APRN, C.N.P., EdwigeNUrsula. ? 06/04/2022 ??9:48 AM URO Cystoscopy (general) Date/Time: 06/03/2022 8:51 AM Performed by: Lo Sewell APRN, C .N.P., EdwigeNJluisP. Authorized by: Armida Botello D.N.PJluis , R.N. Care team members present 1. Lo Sewell APRN, C.N.P., EdwigeNJluis Dewey. 2. Aby Jackson, LJluisPJluisN. Additional procedures performed: cystosc opy ?? PROCEDURE DETAILS The patient was brought to the cystoscop y suite and placed in the lithotomy position. The patient was prep ped and draped in the standard fashion. ??A FLEXIBLE CYSTOSCOPE was ins erted through the urethra. 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 Unable to transverse cystosco pe related to notable discomfort. Given patient discomfort the procedure w as evacuated. Cystoscope was removed. ??He is currently performing in termittent catheterization with 14 Citizen [place] catheter. IMPRESSION: #[address] [...] metastasis in the abdo men or pelvis Aram Guthrie APRN.N.PJluis, D.N.P. IMG CT PROCEDURE S (ABNORMAL) Creatinine with Estimated GFR (05/17/2022 3:02 PM CDT) athologist Signature Creatinine 1.30 0.74 - 05/17/2022 DTL 1.35 mg/dL 4:03 PM CDT eGFR-Non 50 (L) >=60 05/17/2022 DTL Black/ mL/min/BSA 4:03 PM CDT Lithuanian Comment: ----ADDITIONAL INFORMATION---- Estimated GFR calculated using the 2009 CKD_EPI creatinine equation. eGFR-Black/ 58 (L) >=60 mL/min/BSA 2021 4:03 PM CDT DTL Comment: ----ADDITIONAL INFORMATION---- Estimated GFR calculated using the 2009 CKD_EPI creatinine equation. Specimen Anatomical Collection Method Collection Time Receive d Time (Source) Location / / Volume Laterality Blood (Blood, 05/17/2022 3:02 PM 05/17/20 3:43 Venous) CDT PM CDT Aram Guthrie APRN.N.P., D.N.P. LAB BLOOD ADD-ON Performing Organization Address City/State/ZIP Code Phon e Number [facility] - [address] [place], [place] [address] [facility] [place] [address] Laboratories-[facility] [address] from Last 3 Months Insurance Payer Benefit Plan / Subscriber ID Effective Phone Address T ype Group Dates MEDICARE MEDICARE A AND [id number] 2002-Prese [id number] [place] [address] [employer] [id number] 2002-Prese [phone] [id number] [place] [address] Advance Directives For more information, please contact: [phone] Latest Code Status on File Code Status Date Activated Date Inactivated Comments DNR/DNI 02/20/2022 1:42 PM 02/22/2022 10:39 PM DNR/DNI 02/20/2022 1:42 PM 02/20/2022 1:42 PM Care Teams Electrical Experimental Mechanic Relationship Specialty Start Date End Date Elsewhere, Pcp PCP - General Internal Medicine 01/14/22
--- OUTSIDE RECORDS SUMMARY | 2022-07-31 15:44 | XMS_ITS ---
:1935 Author Organization [facility] Address [address] [place] [address] Care Team Providers Name Role Phone Elsewhere, [...] Prescribed Total On Treated Fraction Dose Dose [id number] 04/19/2022 17 6 of 6 600 cGy 3,600 cGy Reference Point Last Treated On Elapsed Days Session Dose Total Dos e [id number] 04/19/2022 17 600 cGy 3,600 cGy Lifetime Dose Tracking Chemical Lifetime Dose Automatic Entry Manual Entry Radiation 58.28 mGy 58.28 mGy 0 mGy Fluoro Time 3.3 minutes 3.3 minutes 0 minutes DAP (uGy-m2) 625.85 uGy-m2 625.85 uGy-m2 0 uGy-m2
--- OUTSIDE RECORDS SUMMARY | 2022-07-31 15:45 | XMS_ITS | Encounter Summary ---
:1935 Author Organization [facility] Address [address] [place] [address] Care Team Providers Name Role Phone Elsewhere, Pcp Primary Care Provider Unavailable Encounter Details Date Type Department Care Team Description 06/19/2022 Clinical Communication Department of Urology Analisa Ruvalcaba in [facility] lonny Gardner M.D. 200 [facility] [address] [place] [phone] Social History Tobacco Use Types Packs/Day Years [...] or relatives? How often do you attend sabianism or Patient refused 2021 taoist services? Do you belong to any clubs or No 05/17/2022 organizations such as sabianism groups, unions, fraternal or athletic groups, or [...] a [place] [facility] (including now)? Education Answer Date Recorded What is the highest level of school you have completed or 12 th grade 05/17/2022 the highest degree you have received? 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 Would a nurse be able to return a call to them please? Does caller have Auth on file: Ok to respond via portal: No Best Number to be reached at: [phone] Best time of day to call: Pharmacy info if needed: documented in this encounter Plan of Treatment Upcoming Encounters Date Type Specialty Care Team Description 08/20/2022 Appointment Radiology Claude Loaiza MPAS, P.A.-C. [address] [place] [phone] (Octavio christensen) 08/20/2022 Appointment Radiology Claude Loaiza MPAS, P.A.-C. [address] [place] [phone] (Octavio christensen) 08/22/2022 Virtual Visit Urology Gibran Ruvalcaba M.D. [address] [place] [phone] (Wo rk) documented as of this encounter Visit Diagnoses Not on filedocumented in this encounter Care Teams Salon Leader Relationship Specialty Start Date End Date Elsewhere, Pcp PCP - General Internal Medicine 01/14/22 documented as of this encounter
--- OUTSIDE RECORDS SUMMARY | 2022-07-31 15:45 | XMS_ITS | Encounter Summary ---
:1935 Author Organization [facility] Address [address] [place] [address] Care Team Providers Name Role Phone Elsewhere, Pcp Primary Care Provider Unavailable Reason for Visit Outpatient (Routine) - Closed Specialty Diagnoses / Procedures Referred By Contact Refer red To Contact Diagnoses Malignant Neoplasm Of Bladder (HCC) Claude Loaiza, [facility], [facility] Procedures Cystoscopy (specific provider) P.AJluis-C. [address] [place] [phone] Referral ID Status Reason Start Date Expiration Date Visits Requ ested Visits Authorized [id number] Closed 06/14/2022 06/14/2023 1 1 Encounter Details Date Type Department Care Team Description 06/14/2022 Procedure visit Department of Urology Gibran Ruvalcabaant Neoplasm Of in Jj Batista M.D. Bladder (HCC) [place] [address] [facility] [place] [phone] Social History Tobacco Use Types Packs/Day Years [...] you attend jewish or Patient refused 2021 shinto services? Do you belong to any clubs or No 05/17/2022 organizations such as jewish groups, [employer], [employer] or athletic groups, or school groups? 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 [address] [place] [phone] (Octavio christensen) 08/20/2022 Appointment Radiology Claude Loaiza MPAS, P.A.-C. [address] [place] [phone] (Octavio christensen) 08/22/2022 Virtual Visit Urology Gibran Ruvalcaba M.D. [address] [place] [phone] (Octavio christensen) documented as of this encounter Procedures Procedure Name Priority Date/Time Associated Comments Diagnosis [place] INJ ANTEGRD Routine 06/14/2022 2:29 PM Malignant [...] imary documented in this encounter Care Teams Cloth Measurer Relationship Specialty Start Date End Date Elsewhere, Pcp PCP - General Internal Medicine 01/14/22 documented as of this encounter
--- OUTSIDE RECORDS SUMMARY | 2022-07-31 15:45 | XMS_ITS | Encounter Summary ---
:1935 Author Organization [facility] Address [address] [place] [address] Care Team Providers Name Role Phone Elsewhere, Pcp Primary Care Provider Unavailable Reason for Referral Outpatient (Routine) - Closed Specialty Diagnoses / Procedures Referred By Contact Refer red To Contact Urology Manny Anderson M .D. Alamiri, Jamal M, M.BJluis, [address] [facility] [address], [place] [address] [address] [facility] [place] [address] Phone: Fax: Referral ID Status Reason Start Date Expiration Date Visits Requ ested Visits Authorized [id number] Closed 04/16/2022 04/16/2023 1 1 Radiation Therapy (Routine) - Authorized Specialty Diagnoses / Procedures Referred By Contact Refer red To Contact Diagnoses Malignant Neoplasm Of Bladder (HCC) Manny Anderson M.D. [facility] Procedures Management Visit [address] [place] [phone] Referral ID Status Reason Start Date Expiration Date Visits V isits Requested Authorized [id number] Authorized 03/05/2022 03/05/2023 10 10 Reason for Visit Radiation Therapy (Routine) - Authorized Specialty Diagnoses / Procedures Referred By Contact Refer red To Contact Diagnoses Malignant Neoplasm Of Bladder (HCC) Manny Anderson M.D. [facility] Procedures Management Visit [address] [place] [address] Referral ID Status Reason Start Date Expiration Date Visits V isits Requested Authorized [id number] Authorized 03/05/2022 03/05/2023 10 10 Encounter Details Date Type Department Care Team Description 04/16/2022 Hospital Encounter Department of Manny Anderson Neoplasm Radiation Oncology Ashtyn Dubois Of Bladder (HCC) in [place], [address] [place], [place] [address] [facility] [address] [place], [place] [phone] (Work) [phone] Social History Tobacco Use Types Packs/Day Years [...] you attend mu-ism or Patient refused 2021 uatsdin services? 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 Kurtis Bach at [facility] and demonstrated a large medial lobe of the prostate, 3 cm, with papillary bladder mass, 5 cm, the left bladder wall obstructing the left UO. The patient reported a history of gross hematuria for months and difficulty emptying his bladder. Discussed that the patient ideally would need TURBT and bilateral retrogrades. Patient will need to see his opthalmic tech for surgical clearance, he is a poor candidate for surgery. 02/08/2022 Other Urology consultation at [facility] with Dr. David Day who recommended proceeding [...] urethral catheter and nephrostomy tube. Referral to [facility] provider. 03/12/2022 - Radiation Therapy Radiation [...] order for Urology follow up on our [facility]. He will contact us with any questions [...] Manny Anderson M.D. 04/16/2022 6:46 PM CDT [facility] [address] [place] [address] documented in this encounter Plan of Treatment Upcoming Encounters Date Type Specialty Care Team Description 08/20/2022 Appointment Radiology Claude Loaiza MPAS, P.A.-C. [address] [place] [phone] (Wo rk) 08/20/2022 Appointment Radiology Claude Loaiza MPAS, P.A.-C. [address] [place] [phone] (Wo rk) 08/22/2022 Virtual Visit Urology Gibran Ruvalcaba M.D. [address] [place] [phone] (Wo rk) Scheduled Orders Name [...] (HCC) documented in this encounter Care Teams Solution Analyst Relationship Specialty Start Date End Date Elsewhere, Pcp PCP - General Internal Medicine 01/14/22 documented as of this encounter
--- OUTSIDE RECORDS SUMMARY | 2022-07-31 15:45 | XMS_ITS | Encounter Summary ---
:1935 Author Organization [facility] Address [address] [place] [address] Care Team Providers Name Role Phone Elsewhere, Pcp Primary Care Provider Unavailable Encounter Details Date Type Department Care Team Description 05/17/2022 Hospital Encounter Department of Armida Botello nephrosis; Laboratory Medicine L, AUTOMOBILE BUMPER STRAIGHTENER, Malignhema t Neoplasm Of Bladder (HCC) and Pathology, C.N.P., D.N.PFormerly [facility] in [address] [place] [address] [place] [phone] [place], [place] [phone] (Work) [phone] Social History Tobacco Use Types Packs/Day Years [...] or relatives? How often do you attend jew or Patient refused 2021 confucianist services? Do you belong to any clubs or No 05/17/2022 organizations such as jew groups, unions, fraternal or athletic groups, or [...] at Date Recorded Male 09/10/2018 8:41 AM MEDIA INTERN documented as of this encounter Medications at [...] Radiology Claude Loaiza MPAS, P.A.-C. [address] [place], [place] [phone] (Wo rk) 08/20/2022 Appointment Radiology Claude Loaiza MPAS, P.A.-C. [address] [place], [place] [phone] (Wo rk) 08/22/2022 Virtual Visit Urology Gibran Ruvalcaba M.D. [address] [place], [place] [phone] (Wo rk) documented as [...] 05/17/2022 DTL Black/ mL/min/BSA 4:03 PM CDT Mozambican Comment: ----ADDITIONAL INFORMATION---- Estimated GFR calculated using [...] Organization Address City/State/ZIP Code Phon e Number [facility] - [address] [place], [place] [address] [facility] [place] [address] Laboratories-[facility] [address] documented in this encounter Visit Diagnoses Diagnosis Hydronephrosis Malignant Neoplasm Of Bladder (HCC) documented in this encounter Care Teams Cage/Vault Supervisor Relationship Specialty Start Date End Date Elsewhere, Pcp PCP - General Internal Medicine 01/14/22 documented as of this encounter
--- OUTSIDE RECORDS SUMMARY | 2022-07-31 15:45 | XMS_ITS | Encounter Summary ---
:1935 Author Organization [facility] Address [address] [place] [address] Care Team Providers Name Role Phone Elsewhere, Pcp Primary Care Provider Unavailable Reason for Referral Outpatient (Routine) - Authorized Specialty Diagnoses / Procedures Referred By Contact Refer red To Contact Urology Claude Loaiza M PAS, P.A.-C. [facility] [address] [place] [address] Referral ID Status Reason Start Date Expiration Date Visits V isits Requested Authorized [id number] Authorized 06/14/2022 06/13/2025 1 1 Scheduling Instructions Phone visit to discuss results of CTU an d follow up RI/CAT/PET Scan (Routine) - Authorized Specialty Diagnoses / Procedures Referred By Contact Refer red To Contact Radiology Diagnoses Malignant Neoplasm Of Bladder (HCC) Claude Loaiza MPAS, [facility] Procedures CT Urogram without and with IV Contrast PBe. [address] [place] [address] Referral ID Status Reason Start Date Expiration Date Visits V isits Requested Authorized [id number] Authorized 06/14/2022 06/14/2023 1 1 utpatient (Routine) - Authorized Specialty Diagnoses / Procedures Referred By Contact Refer red To Contact Radiology Diagnoses Malignant Neoplasm Of Bladder (HCC) Claude Loaiza MPAS, [facility] Procedures IR Nephrostomy Tube Check Left P.A.-C. [address] [place] [phone] Referral ID Status Reason Start Date Expiration Date Visits V isits Requested Authorized [id number] Authorized 06/14/2022 06/14/2023 1 1 Reason for Visit Outpatient (Routine) - Closed Specialty Diagnoses / Procedures Referred By Contact Refer red To Contact Diagnoses Malignant Neoplasm Of Bladder (HCC) Claude Loaiza MPAS, [facility] Procedures Cystoscopy (specific provider) P.A.-C. [address] [place] [address] Referral ID Status Reason Start Date Expiration Date Visits Requ ested Visits Authorized [id number] Closed 06/14/2022 06/14/2023 1 1 Encounter Details Date Type Department Care Team Description 06/14/2022 Procedure visit Department of Urology Gibran Ruvalcaba Neoplasm Of in [place] Bladder (HCC) (Primary [place] 200 [facility] Dx) 200 [place] [phone] Social History Tobacco Use Types Packs/Day Years [...] you attend religion or Patient refused 2021 mormonism services? 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 - 06/14/2022 1:30 PM CDT Patient was seen for a cystoscopy procedure. Cystoscope CYF-VH #[id number] was used during today's cystoscopy procedure. Accessories used: cystoscope reusable (sterilized) stop cock Load number from processing via [employer]: [id number] With Nephrostogram and urethral dilation, consent was obtained. documented in this encounter Procedure Notes Gibran Ruvalcaba M.D. - 06/14/2022 1:30 PM CDTAssociated Order(s): URO Nephrostogram Pre-Procedure Diagnose(s): Malignant Neoplasm Of Bladder (HCC) URO Nephrostogram Date/Time: 06/14/2022 2:50 PM Performed by: Gibran Ruvalcaba M.D. Authorized by: Claude Loaiza, [facility], P.A.-C. Performed a left nephrostogram. Instilled easily [...] patient is receiving CIC with a 14 Swazi straight will continue this. I took the [...] Claude Loaiza MPAS, P.A.-C. [address] [place], [place] [phone] (Wo ) 08/20/2022 Appointment Radiology Claude Loaiza MPAS, P.A.-C. [address] [place], [place] [phone] ([facility]) 08/22/2022 Virtual Visit Urology Gibran Ruvalcaba M.D. [address] [place], [place] [phone] ( rk) Scheduled Orders [...] Name Type Priority Associated Diagnoses Order S [facility] Urology office Outpatient Referral Routine Expect ed: visit (clinic) 08/22/2022 (Approximate), Expires: 09/14/2023 documented as of this encounter Procedures Procedure Name Priority Date/Time Associated Comments Diagnosis URO CYSTOSCOPY Routine 06/14/2022 2:29 PM Malignant Neoplasm R esults for this (SPECIFIC PROVIDER) CDT Of Bladder (HCC) proc edure are in the results section. DE INJ ANTEGRD Routine 06/14/2022 2:29 PM Malignant [...] dose documented in this encounter Care Teams Battery Tester Relationship Specialty Start Date End Date Elsewhere, Pcp PCP - General Internal Medicine 01/14/22 documented as of this encounter
--- OUTSIDE RECORDS SUMMARY | 2022-07-31 15:45 | XMS_ITS | Encounter Summary ---
:1935 Author Organization [facility] Address [address] [place] [address] Care Team Providers Name Role Phone Elsewhere, Pcp Primary Care Provider Unavailable Reason for Referral MRI/CAT/PET Scan (Routine) - Closed Specialty Diagnoses / Procedures Referred By Contact Refer red To Contact Radiology Diagnoses Hydronephrosis Armida Botello APRN, [facility] Procedures CT Urogram without and with IV Contrast C.N.P., D.N.P. [address] [place], [place] [phone] Referral ID Status Reason Start Date Expiration Date Visits Requ ested Visits Authorized [id number] Closed 05/17/2022 05/17/2023 1 1 utpatient (Routine) - Closed Specialty Diagnoses / Procedures Referred By Contact Refer red To Contact Diagnoses Hydronephrosis Malignant Neoplasm Of Bladder (HCC) Armida Botello APRN, [facility] Procedures URO Cystoscopy (general) C.N.P., D.N.P. [address] [place] [address] Referral ID Status Reason Start Date Expiration Date Visits Requ ested Visits Authorized [id number] Closed 05/17/2022 05/17/2023 1 1 utpatient (Routine) - Closed Specialty Diagnoses / Procedures Referred By Contact Refer red To Contact Urology Armida Botello APRN, C.N.P., [facility] D.N.P. [address] [place] [phone] Referral ID Status Reason Start Date Expiration Date Visits Requ ested Visits Authorized [id number] Closed 05/17/2022 05/17/2023 1 1 utpatient (Routine) - Closed Specialty Diagnoses / Procedures Referred By Contact Refer red To Contact Diagnoses Hydronephrosis Malignant Neoplasm Of Bladder (HCC) Retention Urinary Armida Botello APRN, [facility] Procedures URO Urethral cath removal & voiding trial (UCO/VT) Aram.N.Ramonita, D.N.P. [address] [place] [phone] Referral ID Status Reason Start Date Expiration Date Visits Requ ested Visits Authorized [id number] Closed 05/17/2022 05/17/2023 1 1 Reason for Visit Outpatient (Routine) - Closed Specialty Diagnoses / Procedures Referred By Contact Refer red To Contact Urology Manny [place] M .D. Alamiri, Jamal M, M.B., [address] [place] [address] [place] [address] [address] [place] [address] [place] [phone] Phone: Fax: Referral ID Status Reason Start Date Expiration Date Visits Requ ested Visits Authorized [id number] Closed 04/16/2022 04/16/2023 1 1 Encounter Details Date Type Department Care Team Description 05/17/2022 Office Visit Department of Urology Bassam Klein ignant Neoplasm Of Bladder (HCC) (Primary Dx); in [place], Ashtyn Ayala Hydronephrosis; [place] [address] [facility] Retention Urinary; [address] [place], [place] Diabetes Mellitus Type 2 Wit h Other Diabetic Kidney Complication Hyperglycemic (HCC) [place] [phone] Social History Tobacco Use Types Packs/Day Years [...] you attend bahai or Patient refused 2021 catholic services? 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 - 05/17/2022 11:00 AM CDT SUBJECTIVE REQUESTING PROVIDER Manny [place] M.D. CHIEF COMPLAINT / REASON FOR VISIT Follow-up Patient seen on Dr. Klein's calendar HISTORY OF PRESENT ILLNESS Mr. Chery is a 86 y.o. male who presents today in follow-up. He presents in a wheelchair today accompanied by his and bpaqxstu-zb-dmh. This is a patient of the chief [...] uncomfortable for the patient and both his ujztyltx-sm-gpu and report he was able to urinate [...] Appointment Radiology Claude Loaiza MPAS P.A.-CJluis [address] [place] [phone] (Octavio christensen) 08/20/2022 Appointment Radiology Claude Loaiza MPAS, P.A.-C. [address] [place] [phone] (Octavio christensen) 08/22/2022 Virtual Visit Urology Gibran Ruvalcaba M.D. [address] [place] [phone] (Octavio christensen) Scheduled Orders Name Type Priority Associated Diagnoses Order S chedule URO Urethral cath Procedure Routine Hydronephrosis Expected: removal & voiding Malignant Neoplasm Of 0 05/17/2022, Expires: trial (UCO/VT) Bladder (HCC) 08/17/2023 Retention Urinary Scheduled Referrals Name Type Priority Associated Diagnoses Order S [facility] Urology office Outpatient Referral Routine Expect ed: visit (clinic) 05/17/2022 (Approximate), Expires: 08/17/2023 documented as of this encounter Results URO Cystoscopy (general) (06/03/2022 8:51 AM CDT) Specimen (Source) Anatomical Location Collection Method / Collectio n Time Received Time / Laterality Volume Narrative Lo eSwell APRN, C.N.P., D.N.P. - 06/03/2022 8:51 AM [...] through the urethra. 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 Unable to transverse cystosco pe related to notable discomfort. Given patient discomfort the procedure w as evacuated. Cystoscope was removed. ??He is currently performing in termittent catheterization with 14 Georgian catheter. 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
--- OUTSIDE RECORDS SUMMARY | 2022-07-31 15:45 | XMS_ITS | Encounter Summary ---
:[address] [facility] Address [address] [place] [address] Care Team Providers Name Role Phone Elsewhere, Pcp Primary Care Provider Unavailable Reason for Referral MRI/CAT/PET Scan (Routine) - Closed Specialty Diagnoses / Procedures Referred By Contact Refer red To Contact Radiology Diagnoses [facility] CT Urogram without and with IV Contrast C.N.P., D.N.P. [address] [place], [place] [phone] Referral ID Status Reason Start Date Expiration Date Visits Requ ested Visits Authorized [id number] Closed 05/17/2022 05/17/2023 1 1 Reason for Visit MRI/CAT/PET Scan (Routine) - Closed Specialty Diagnoses / Procedures Referred By Contact Refer red To Contact Radiology Diagnoses [facility]rosis [facility] CT Urogram without and with IV Contrast C.N.P., D.N.P. [address] [place] [phone] Referral ID Status Reason Start Date Expiration Date Visits Requ ested Visits Authorized [id number] Closed 05/17/2022 05/17/2023 1 1 Encounter Details Date Type Department Care Team Description 05/23/2022 Hospital Encounter Department of Rosmery, Armida Hague nephrosis Radiology, Trevett EDWARD Dubois C.N.P., [facility] [place] [address] [facility] [address] [place] [phone] Social History Tobacco Use Types Packs/Day Years [...] you attend uatsdin or Patient refused 2021 gnosticist services? Do you belong to any clubs or No 05/17/2022 organizations such as uatsdin groups, unions, fraternal or athletic groups, or [...] or slept in a fci (including now)? Education Answer Date Recorded What is the highest level of school you have completed or 12 th grade 05/17/2022 the highest degree you have received? 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 [address] [place], [place] [phone] (Octavio christensen) 08/20/2022 Appointment Claude Manzanares MPAS, P.A.-C. [address] [place], [place] [phone] (Wo rk) 08/22/2022 Virtual Visit Urology Gibran Ruvalcaba M.D. [address] [place], [place] [phone] (Wo rk) documented as [...] Orders documented in this encounter Care Teams Set Off Press Operator Relationship Specialty Start Date End Date Elsewhere, Pcp PCP - General Internal Medicine 01/14/22 documented as of this encounter
--- OUTSIDE RECORDS SUMMARY | 2022-07-31 15:45 | XMS_ITS | Encounter Summary ---
:1935 Author Organization [facility] Address [address] [place] [phone] Care Team Providers Name Role Phone Elsewhere, Pcp Primary Care Provider Unavailable Reason for Visit Reason Comments Urinary Retention Outpatient (Routine) - Closed Specialty Diagnoses / Procedures Referred By Contact Refer red To Contact Diagnoses Hydronephrosis Malignant Neoplasm Of Bladder (HCC) Retention Urinary [facility] Procedures URO Urethral cath removal & voiding trial (UCO/VT) C.N.P., D.N.P. [address] [place] [phone] Referral ID Status Reason Start Date Expiration Date Visits Requ ested Visits Authorized [id number] Closed 05/17/2022 05/17/2023 1 1 Encounter Details Date Type Department Care Team Description 05/17/2022 Procedure visit Department of Urology Armida Botello APRN, C.N.P., D.N.P. [address] [place] [phone] Hydronephrosis; in [place], Lalita Dewitt R.N. [address] [place] [phone] Malignant Neoplasm Of Bladder (HCC); [place] Retention Urinary [address] [place] [phone] Social History Tobacco Use Types Packs/Day Years [...] you attend worship or Patient refused 2021 taoist services? Do you belong to any clubs or No 05/17/2022 organizations such as worship groups, unions, [employer] or athletic groups, or school groups? How [...] or slept in a prison (including now)? Education Answer Date Recorded What is the highest level of school you have completed or 12 th grade 05/17/2022 the highest degree you have received? 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 [address] [place] [phone] (Wo rk) 08/20/2022 Appointment Radiology Claude Loaiza MPAS P.A.-C. [address] [place] [phone] (Wo rk) 08/22/2022 Virtual Visit Urology Gibran Ruvalcaba M.D. [address] [place] [phone] (Wo rk) documented as of this encounter Visit Diagnoses Diagnosis Hydronephrosis Malignant Neoplasm Of Bladder (HCC) Retention Urinary documented in this encounter Care Teams Superintendent Track Relationship Specialty Start Date End Date Elsewhere, Pcp PCP - General Internal Medicine 01/14/22 documented as of this encounter
--- OUTSIDE RECORDS SUMMARY | 2022-07-31 15:45 | XMS_ITS | Encounter Summary ---
:1935 Author Organization [facility] Address [address] [place] [address] Care Team Providers Name Role Phone Elsewhere, Pcp Primary Care Provider Unavailable Encounter Details Date Type Department Care Team Description 05/02/2022 Clinical Communication Department of Heladio Meadows Radiology, Didier Layton R.N. [facility], in [address] [place] [phone] [place], [place] [phone] (Work) [phone] Social History Tobacco Use Types Packs/Day Years [...] you attend shinto or Patient refused 2021 worship services? 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 - 05/02/2022 9:23 AM CDT We received a notification from [facility] appointment coordinators indicating that Mr. Chery has decided to cancel his scheduled suprapubic catheter placement. I called the [facility] appointment coordinators to verify this information. The procedure is canceled for now. documented in this encounter Plan of Treatment Upcoming Encounters Date Type Specialty Care Team Description 08/20/2022 Appointment Radiology Claude Loaiza MPAS, P.A.-C. [address] [place] [phone] (Wo rk) 08/20/2022 Appointment Radiology Claude Loaiza MPAS, P.A.-C. [address] [place] [phone] (Wo rk) 08/22/2022 Virtual Visit Urology Gibran Ruvalcaba M.D. [address] [place] [phone] (Wo rk) documented as of this encounter Visit Diagnoses Not on filedocumented in this encounter Care Teams Sales Operations Relationship Specialty Start Date End Date Elsewhere, Pcp PCP - General Internal Medicine 01/14/22 documented as of this encounter
--- OUTSIDE RECORDS SUMMARY | 2022-07-31 15:45 | XMS_ITS | Encounter Summary ---
:1935 Author Organization [facility] Address [address] [place] [address] Care Team Providers Name Role Phone Elsewhere, Pcp Primary Care Provider Unavailable Encounter Details Date Type Department Care Team Description 04/19/2022 Documentation Department of Radiation Manny Anedrson[facility] [address] [place] [phone] (Wo rk) Social History Tobacco Use Types [...] you attend tenriism or Patient refused 2021 zoroastrianism services? 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 - 04/19/2022 11:59 PM CDT DIAGNOSIS: 1. Malignant Neoplasm Of Bladder (HCC) Attending Physician: Manny [place] M.D. ([phone]) Treatment Intent: Curative Concomitant Therapy: None Single Plan Treatment Course: 1xBladder Plan ID Fractions Dose / Fraction (cGy) Dose Treated (cGy) Dose Planned (cGy) First Treatment Last Treatment Elapsed Days [id number] 04/02/2022 04/19/2022 17 Course [...] Renetta Koch R.N., 05/03/2022 2:46 PM CDT [facility] [address] [place] [phone] documented in this encounter Plan of Treatment Upcoming Encounters Date Type Specialty Care Team Description 08/20/2022 Appointment Radiology Claude Loaiza, MPAS, P.A.-C. [address] [place], [place] [phone] (Wo rk) 08/20/2022 Appointment Radiology Claude Loaiza MPAS, Eduardo [address] [place], [place] [phone] (Wo rk) 08/22/2022 Virtual Visit Urology Gibran Ruvalcaba M.D. [address] [place], [place] [phone] (Wo rk) documented as of this encounter Visit Diagnoses Diagnosis Malignant Neoplasm Of Bladder (HCC) - Pr imary documented in this encounter Care Teams Professor Of Marketing Relationship Specialty Start Date End Date Elsewhere, Pcp PCP - General Internal Medicine 01/14/22 documented as of this encounter
--- OUTSIDE RECORDS SUMMARY | 2022-07-31 15:45 | XMS_ITS | Encounter Summary ---
:1935 Author Organization [facility] Address [address] [place] [address] Care Team Providers Name Role Phone Elsewhere, Pcp Primary Care Provider Unavailable Reason for Visit Outpatient (Routine) - Closed Specialty Diagnoses / Procedures Referred By Contact Refer red To Contact Diagnoses Hydronephrosis Malignant Neoplasm Of Bladder (HCC) Armida Botello APRN, [facility] Procedures URO Cystoscopy (general) C.N.P., D.N.P. [address] [place] [phone] Referral ID Status Reason Start Date Expiration Date Visits Requ ested Visits Authorized [id number] Closed 05/17/2022 05/17/2023 1 1 Encounter Details Date Type Department Care Team Description 06/03/2022 Procedure visit Department of Armida Botello APRN, C.N.P., D.N.P. [address] [place] [phone] Stricture Urethral Postoperative Male (P rimary Dx); Urology in [place] APRN, C.N.P., D.N.P. [address] [place] [phone] Hydronephrosis; [place], [place] Malignant Neoplasm Of Bladde r (HCC) [address] [place] [phone] Social History Tobacco Use Types Packs/Day Years [...] you attend gnosticism or Patient refused 2021 religion services? 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 - 06/03/2022 8:00 AM CDT Patient was seen for a cystoscopy procedure. Cystoscope CYF-VH #[id number] was used during today's cystoscopy procedure. Accessories used: cystoscope reusable (sterilized) stop cock Load number from processing via [employer]: [id number] documented in this encounter Procedure Notes Lo [...] through the urethra.Urethroscopy demonstrated dense #13- #14 Tajik distal penile urethral stricture. Unable to transverse cystoscope related to notable discomfort. Given patient discomfort the procedure was evacuated. Cystoscope was removed. He is currently performing intermittent catheterization with 14 Tajik catheter. IMPRESSION: #1 Distal penile urethral stricture [...] Appointment Radiology Claude Loaiza MPAS, P.A.-C. [address] [place] [phone] (Wo rk) 08/20/2022 Appointment Radiology Claude Loaiza MPAS, P.A.-C. [address] [place] [phone] (Wo rk) 08/22/2022 Virtual Visit Urology Gibran Ruvalcaba M.D. [address] [place] [phone] (Wo rk) documented as of [...] through the urethra. Urethroscopy demonstrated dense #13-#14 Tajik distal penile urethral stricture. Unable to transverse cystosco pe related to notable discomfort. Given patient discomfort the procedure w as evacuated. Cystoscope was removed. ??He is currently performing in termittent catheterization with 14 Tajik catheter. IMPRESSION: #[address] [...] (HCC) documented in this encounter Care Teams Loading Checker Relationship Specialty Start Date End Date Elsewhere, Pcp PCP - General Internal Medicine 01/14/22 documented as of this encounter
--- OUTSIDE RECORDS SUMMARY | 2022-07-31 15:45 | XMS_ITS | Encounter Summary ---
:1935 Author Organization [facility] Address 200 [place] [address] Care Team Providers Name Role Phone Elsewhere, Pcp Primary Care Provider Unavailable Reason for Referral Outpatient (Routine) - Closed Specialty Diagnoses / Procedures Referred By Contact Refer red To Contact Radiology Diagnoses Malignant Neoplasm Of Bladder (HCC) Nura David IV [facility] Procedures IR Nephrostomy Tube Exchange Left M.D. 200 [place], [place] [address] Referral ID Status Reason Start Date Expiration Date Visits Requ ested Visits Authorized [id number] Closed 02/22/2022 02/22/2023 1 1 Reason for Visit Outpatient (Routine) - Closed Specialty Diagnoses / Procedures Referred By Contact Refer red To Contact Radiology Diagnoses Malignant Neoplasm Of Bladder (HCC) Nura David IV [facility] Procedures IR Nephrostomy Tube Exchange Left M.D. 200 [place], [place] [address] Referral ID Status Reason Start Date Expiration Date Visits Requ ested Visits Authorized [id number] Closed 02/22/2022 02/22/2023 1 1 Encounter Details Date Type Department Care Team Description 05/20/2022 Hospital Encounter Department of Fr diana David IV, M.D. 200 [place] [phone] Malignant Neoplasm Radiology in Bryon Wu M.D., Ph.D. [address] [place] [address] Of Bladder (HCC) [place], [place] [address] [place] [phone] Social History Tobacco Use Types Packs/Day Years [...] or relatives? How often do you attend protestant or Patient refused 2021 yazdanism services? Do you belong to any clubs or No 05/17/2022 organizations such as protestant groups, unions, fraternal or athletic groups, or [...] slept in a skilled nursing (including now)? Education Answer Date Recorded What is the highest level of school you have completed or 12 th grade 05/17/2022 the highest degree you have received? 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 [address] [place] [phone] (Octavio christensen) 08/20/2022 Appointment Radiology Claude Loaiza MPAS, P.A.-C. [address] [place] [address] [phone] (Octavio christensen) 08/22/2022 Virtual Visit Urology Gibran Ruvalcaba M.D. [address] [place] [phone] (Octavio christensen) documented as of [...] 05/20/2022 5:48 PM CDT Routine exchange 10 Niuean left percutaneous nephrostomy tube. Drain to gravity [...] lidoca ine used for local anesthesia. Fluoroscopic scout leaser image demonstrates unchanged position of the l eft 10 Niuean percutaneous nephrostomy tube. Injection of contrast demonstrated a locking loop wit hin the markedly dilated left renal pelvis with high-grade narrowing at the left UPJ. Drain removed in its entirety over a guidewire and a new 10 Niuean locking loop catheter advanced with lock ing [...] lidoca ine used for local anesthesia. Fluoroscopic scout leaser image demonstrates unchanged position of the l eft 10 Niuean percutaneous nephrostomy tube. Injection of contrast demonstrated a locking loop wit hin the markedly dilated left renal pelvis with high-grade narrowing at the left UPJ. Drain removed in its entirety over a guidewire and a new 10 Niuean locking loop catheter advanced with lock ing [...] blood loss: minimal.. IMPRESSION: Routine exchange 10 Niuean left percutan eous nephrostomy tube. Drain to [...] mcg (SUBLIMAZE) (CANCELED) 1241 (Given - Provider: Bhavana Chow R.N.) 25 mcg, intravenous, Every 2 [...] breaths/minute. documented in this encounter Care Teams Log Processor Operator Relationship Specialty Start Date End Date Elsewhere, Pcp PCP - General Internal Medicine 01/14/22 documented as of this encounter
--- OUTSIDE RECORDS SUMMARY | 2022-07-31 15:45 | XMS_ITS | Encounter Summary ---
:1935 Author Organization [facility] Address [address] [place] [address] Care Team Providers Name Role Phone Elsewhere, Pcp Primary Care Provider Unavailable Reason for Visit Outpatient (Routine) - Closed Specialty Diagnoses / Procedures Referred By Contact Refer red To Contact Radiology Diagnoses Malignant Neoplasm Of Bladder (HCC) Hydronephrosis Gibran Ruvalcaba M.D. [facility] Procedures IR Nephrostomy Tube Exchange Left IR Nephrostomy Tube Check Left 200 [place], [place] [phone] Referral ID Status Reason Start Date Expiration Date Visits Requ ested Visits Authorized [id number] Closed 07/01/2022 07/01/2023 1 1 Encounter Details Date Type Department Care Team Description 07/02/2022 Hospital Encounter Department of Gibran Ruvalcaba M.D. 200 [place] [phone] Malignant Neoplasm Of Bladder (HCC); Radiology in Beatriz Leblanc M.D. 200 [place] [address] Hydronephrosis Blade Batista Madison, M.D. 200 [place] [address] [place] [address] [place] [address] Social History Tobacco Use Types [...] or relatives? How often do you attend quaker or Patient refused 2021 mosque services? Do you belong to any clubs or No 05/17/2022 organizations such as quaker groups, unions, fraOpenNews or athletic groups, or school groups? 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 [address] [place] [address] [phone] (Wo rk) 08/22/2022 Virtual Visit Urology Gibran Ruvalcaba M.D. [address] [place] [phone] (Wo rk) documented as of [...] d raining. TECHNIQUE: Prone positioning. Fluoroscop ic plastic die maker apprentice image demonstrates the likely malpositioning of the [...] Over a torque wire, a new 12 Mongolian by 25 cm pigtail catheter was advanced [...] d raining. TECHNIQUE: Prone positioning. Fluoroscop ic plastic die maker apprentice image demonstrates the likely malpositioning of the [...] Over a torque wire, a new 12 Mongolian by 25 cm pigtail catheter was advanced [...] injection documented in this encounter Care Teams Assisted Living Assistant Relationship Specialty Start Date End Date Elsewhere, Pcp PCP - General Internal Medicine 01/14/22 documented as of this encounter
--- OUTSIDE RECORDS SUMMARY | 2022-07-31 15:45 | XMS_ITS | Encounter Summary ---
:1935 Author Organization [facility] Address 200 [place] [address] Care Team Providers Name Role Phone Elsewhere, Pcp Primary Care Provider Unavailable Reason for Referral Outpatient (Routine) - Authorized Specialty Diagnoses / Procedures Referred By Contact Refer red To Contact Radiology Diagnoses Malignant Neoplasm Of Bladder (HCC) Nura David IV [facility] Procedures IR Nephrostomy Tube Exchange Left M.D. 200 [place] [address] Referral ID Status Reason Start Date Expiration Date Visits V isits Requested Authorized [id number] Authorized 05/20/2022 05/20/2023 1 1 Encounter Details Date Type Department Care Team Description 05/20/2022 Orders Only Department of Urology Nura David Malignant Neoplasm Of in [facility] Becky COBIAN M.D. Bladder (HCC) (Primary [place] 200 [facility] D[facility]) 200 [place] [address] [phone] Social History Tobacco Use Types Packs/Day Years [...] attend latter day or Patient refused 2021 adventist services? Do you belong to any clubs or No 05/17/2022 organizations such as latter day groups, unions, fraTRIA Beauty or athletic groups, or school groups? 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 [address] [place] [phone] (Octavio christensen) 08/20/2022 Appointment Radiology Claude Loaiza MPAS, P.A.-C. [address] [place] [phone] (Octavio christensen) 08/22/2022 Virtual Visit Urology Gibran Ruvalcaba M.D. [address] [place] [phone] (Octavio christensen) Scheduled Orders Name Type Priority Associated Order Schedule Diagnoses IR Nephrostomy Tube Imaging RAD - Routine (most Malignant Neop lasm Expected: Exchange Left inpatients and all Of Bladder (HCC) 10/2021 outpatients) (Approximate), Expires: 08/20/2023 documented as of this encounter Visit Diagnoses Diagnosis Malignant Neoplasm Of Bladder (HCC) - Pr imary documented in this encounter Care Teams Program Director/Morning Show Host Relationship Specialty Start Date End Date Elsewhere, Pcp PCP - General Internal Medicine 01/14/22 documented as of this encounter
--- OUTSIDE RECORDS SUMMARY | 2022-07-31 15:45 | XMS_ITS | Encounter Summary ---
:1935 Author Organization [facility] Address [address] [place] [address] Care Team Providers Name Role Phone Elsewhere, Pcp Primary Care Provider Unavailable Reason for Referral Outpatient (Routine) - Authorized Specialty Diagnoses / Procedures Referred By Contact Refer red To Contact Nura David IV, M.D. [facility] 200 [place] [address] Referral ID Status Reason Start Date Expiration Date Visits V isits Requested Authorized [id number] Authorized 04/29/2022 04/29/2023 [address] Bassam Klein calendar Encounter Details Date Type Department Care Team Description 04/29/2022 Orders Only Department of Urology in [place] David is [place], [place] Ashtyn COBIAN 200 [facility] 200 [place] [address] [place], [place] [phone] (Wo rk) Social History Tobacco Use Types [...] you attend mosque or Patient refused 2021 lutheran services? Do you belong to any clubs or No 05/17/2022 organizations such as mosque groups, unions, fraripplrr inc or athletic groups, or school groups? 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 [address] [place] [phone] (Wo rk) 08/20/2022 Appointment Radiology Claude Loaiza MPAS, P.A.-C. [address] [place] [address] [phone] (Wo rk) 08/22/2022 Virtual Visit Urology Gibran Ruvalcaba M.D. [address] [place] [phone] (Wo rk) Scheduled Referrals Name Type Priority Associated Diagnoses Order S chedule NonF2F phone Outpatient Referral Routine Expected : visit 04/29/2022 (Approximate), Expires: 2022 documented as of this encounter Visit Diagnoses Not on filedocumented in this encounter Care Teams Manager Distribution Relationship Specialty Start Date End Date Elsewhere, Pcp PCP - General Internal Medicine 01/14/22 documented as of this encounter
--- OUTSIDE RECORDS SUMMARY | 2022-07-31 15:45 | XMS_ITS | Encounter Summary ---
:1935 Author Organization [facility] Address [address] [place] [address] Care Team Providers Name Role Phone Elsewhere, Pcp Primary Care Provider Unavailable Encounter Details Date Type Department Care Team Description 07/31/2022 Hospital Encounter [facility] Bed Planning Selvin Ortiz M.D. [address] [place] [address] (Wo rk) Social History Tobacco Use Types [...] you attend anabaptist or Patient refused 2021 jainism services? Do [...] place to sleep or slept in a half-way (including now)? Education Answer Date Recorded What is the highest level of school you have completed or 12 th grade 05/17/2022 the highest degree you have received? 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 [address] [place], [place] [phone] (Wo rk) 08/20/2022 Appointment Radiology Claude Loaiza MPAS, P.A.-C. [address] [place], [place] [phone] (Wo rk) 08/22/2022 Virtual Visit Urology Gibran Ruvalcaba M.D. [address] [place] [phone] (Wo rk) documented as of this encounter Visit Diagnoses Not on filedocumented in this encounter Care Teams Security Manager Relationship Specialty Start Date End Date Elsewhere, Pcp PCP - General Internal Medicine 01/14/22 documented as of this encounter
--- OUTSIDE RECORDS SUMMARY | 2022-07-31 15:45 | XMS_ITS | Encounter Summary ---
:1935 Author Organization [facility] Address [address] [place] [address] Care Team Providers Name Role Phone Elsewhere, Pcp Primary Care Provider Unavailable Encounter Details Date Type Department Care Team Description 04/19/2022 Hospital Encounter Department of Radiation Calin Anderson, Oncology in [address] [place] [phone] Social History Tobacco Use Types Packs/Day Years [...] or relatives? How often do you attend orthodoxy or Patient refused 2021 catholic services? 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 [address] [place] [phone] (Wo rk) 08/20/2022 Appointment Radiology Claude Loaiza MPAS, P.A.-C. [address] [place], [place] [phone] (Wo rk) 08/22/2022 Virtual Visit Urology Gibran Ruvalcaba M.D. [address] [place], [place] [phone] (Wo rk) documented as of this encounter Visit Diagnoses Not on filedocumented in this encounter Care Teams Safety Representative Relationship Specialty Start Date End Date Elsewhere, Pcp PCP - General Internal Medicine 01/14/22 documented as of this encounter
--- OUTSIDE RECORDS SUMMARY | 2022-07-31 15:45 | XMS_ITS | Encounter Summary ---
:1935 Author Organization [facility] Address [address] [place] [address] Care Team Providers Name Role Phone Elsewhere, Pcp Primary Care Provider Unavailable Reason for Visit Reason Comments Neph Tube Question Encounter Details Date Type Department Care Team Description 05/09/2022 Clinical Communication Department of Bassam Knight ph Tube [facility] [address] [place] [address] [place] [address] [place], [place] [phone] (Work) [phone] Social History Tobacco Use Types Packs/Day Years [...] you attend gnosticism or Patient refused 2021 roman catholic services? 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 Chery's neph tube bag. She says it's kind of white in color and stringy looking. She's not sure if that's normal or something to be concerned about. She says he doesn't have any signs of any infection. She can be reached at [phone]. Thanks! documented in this encounter Plan of Treatment Upcoming Encounters Date Type Specialty Care Team Description 08/20/2022 Appointment Radiology Claude Loaiza MPAS PJluisA.-C. [address] [place] [phone] (Wo rk) 08/20/2022 Appointment Radiology Claude Loaiza MPAS P.A.-CJluis [address] [place] [phone] (Wo rk) 08/22/2022 Virtual Visit Urology Gibran Ruvalcaba M.D. [address] [place] [phone] (Wo rk) documented as of this encounter Visit Diagnoses Not on filedocumented in this encounter Care Teams Airplane Pilot Helper Relationship Specialty Start Date End Date Elsewhere, Pcp PCP - General Internal Medicine 01/14/22 documented as of this encounter
--- OUTSIDE RECORDS SUMMARY | 2022-07-31 15:45 | XMS_ITS | Encounter Summary ---
:[address] [facility] Address [address] [place] [address] Care Team Providers Name Role Phone Elsewhere, Pcp Primary Care Provider Unavailable Reason for Referral Outpatient (Routine) - Closed Specialty Diagnoses / Procedures Referred By Contact Refer red To Contact Radiology Diagnoses Malignant Neoplasm Of Bladder (HCC) Hydronephrosis Gibran Ruvalcaba M.D. [facility] Procedures IR Nephrostomy Tube Exchange Left IR Nephrostomy Tube Check Left 200 [place] [address] Referral ID Status Reason Start Date Expiration Date Visits Requ ested Visits Authorized [id number] Closed 07/01/2022 07/01/2023 1 1 Encounter Details Date Type Department Care Team Description 07/01/2022 Clinical Communication Department of Urology Analisa Ruvalcaba in [facility] lonny Gardner M.D. 200 [facility] 200 [place] [phone] Social History Tobacco Use Types Packs/Day Years [...] you attend hindu or Patient refused 2021 taoism services? Do you belong to any clubs or No 05/17/2022 organizations such as hindu groups, unions, fraCellectis or athletic groups, or school groups? 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 documented in this encounter Plan of Treatment Upcoming Encounters Date Type Specialty Care Team Description 08/20/2022 Appointment Radiology Claude Loaiza MPAS, P.A.-C. [address] [place] [address] [phone] (Wo rk) 08/20/2022 Appointment Radiology Claude Loaiza MPAS, P.A.-C. [address] [place] [address] 55 [phone] (Wo rk) 08/22/2022 Virtual Visit Urology Gibran Ruvalcaba M.D. [address] [place] [address] [phone] (Wo rk) documented as of [...] d raining. TECHNIQUE: Prone positioning. Fluoroscop ic boat builder image demonstrates the likely malpositioning of [...] Over a torque wire, a new 12 Malagasy by 25 cm pigtail catheter was advanced [...] d raining. TECHNIQUE: Prone positioning. Fluoroscop ic boat builder image demonstrates the likely malpositioning of [...] Over a torque wire, a new 12 Malagasy by 25 cm pigtail catheter was advanced [...] Hydronephrosis documented in this encounter Care Teams Motorcycle Designer Relationship Specialty Start Date End Date Elsewhere, Pcp PCP - General Internal Medicine 01/14/22 documented as of this encounter
--- OUTSIDE RECORDS SUMMARY | 2022-07-31 15:45 | XMS_ITS | Encounter Summary ---
:1935 Author Organization [facility] Address [address] [place] [address] Care Team Providers Name Role Phone Elsewhere, Pcp Primary Care Provider Unavailable Reason for Referral Outpatient (Routine) - Closed Specialty Diagnoses / Procedures Referred By Contact Refer red To Contact Diagnoses Malignant Neoplasm Of Bladder (HCC) Claude Loaiza MPAS, [facility] Procedures URO Nephrostogram P.A.-C. 200 [place] [address] Referral ID Status Reason Start Date Expiration Date Visits Requ ested Visits Authorized [id number] Closed 06/14/2022 06/14/2023 1 1 utpatient (Routine) - Closed Specialty Diagnoses / Procedures Referred By Contact Refer red To Contact Diagnoses Malignant Neoplasm Of Bladder (HCC) Claude Loaiza MPAS, [facility] Procedures Cystoscopy (specific provider) P.A.-C. 200 [place], [place] [address] Referral ID Status Reason Start Date Expiration Date Visits Requ ested Visits Authorized [id number] Closed 06/14/2022 06/14/2023 1 1 Reason for Visit Outpatient (Routine) - Closed Specialty Diagnoses / Procedures Referred By Contact Refer red To Contact Urology Armida Botello, EDWARD, C.N.P., [facility] D.N.P. [address] [place] [address] Referral ID Status Reason Start Date Expiration Date Visits Requ ested Visits Authorized [id number] Closed 05/17/2022 05/17/2023 1 1 Encounter Details Date Type Department Care Team Description 06/14/2022 Comprehensive Visit Department of Gibran Ruvlacaba Neoplasm Urology in Ashtyn Gardner Of Bladder (HCC) [place], [place] 200 [facility] (Primary Dx) 200 [place] [phone] Social History Tobacco Use Types Packs/Day [...] you attend sabianism or Patient refused 2021 protestant services? 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 Chery, his , and his hwubbvww-rn-pug in clinic today in conjunction with Dr. [...] for the patient today. This includes both injs-jq-omok and ebxyevg-ab-mvee time. documented in this encounter Plan of Treatment Upcoming Encounters Date Type Specialty Care Team Description 08/20/2022 Appointment Radiology Claude Loaiza MPAS, P.A.-C. [address] [place] [phone] (Octavio christensen) 08/20/2022 Appointment Radiology Claude Loaiza MPAS, P.A.-C. [address] [place] [address] [phone] (Wo fermin) 08/22/2022 Virtual Visit Urology Gibran Ruvalcaba M.D. [address] [place] [address] [phone] (Wo fermin) documented as of [...] M.D. Authorized by: Claude Loaiza MPAS P.A.-CJluis Claude ZELAYA P.A.-C. UROLOGY ORDERABLES documented in this encounter Visit Diagnoses Diagnosis Malignant Neoplasm Of Bladder (HCC) - Pr imary Malignant Neoplasm Of Bladder (HCC) - Pr imary documented in this encounter Care Teams Customer Experience Analyst Relationship Specialty Start Date End Date Elsewhere, Pcp PCP - General Internal Medicine 01/14/22 documented as of this encounter
--- OUTSIDE RECORDS SUMMARY | 2022-07-31 15:45 | XMS_ITS | Encounter Summary ---
:1935 Author Organization [facility] Address [address] [place] [address] Care Team Providers Name Role Phone Elsewhere, Pcp Primary Care Provider Unavailable Encounter Details Date Type Department Care Team Description 05/17/2022 Hospital Encounter Department of Armida Botello nephrosis; Laboratory Medicine L, RN DISCHARGE, Malignhema t Neoplasm Of Bladder (HCC) and Pathology, C.N.P., D[facility] in [address] [place] [address] [place] [address] [place], [place] [phone] (Work) [phone] Social History Tobacco Use Types Packs/Day Years [...] or relatives? How often do you attend caodaism or Patient refused 2021 samaritan services? Do you belong to any clubs or No 05/17/2022 organizations such as caodaism groups, unions, fraternal or athletic groups, or [...] or slept in a custodial (including now)? Education Answer Date Recorded What is the highest level of school you have completed or 12 th grade 05/17/2022 the highest degree you have received? 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 [address] [place] [phone] (Wo rk) 08/20/2022 Appointment Radiology Claude Loaiza MPAS, P.A.-C. [address] [place] [address] [phone] (Wo rk) 08/22/2022 Virtual Visit Urology Gibran Ruvalcaba M.D. [address] [place] [address] [phone] (Wo rk) documented as of this encounter Visit Diagnoses Diagnosis Hydronephrosis Malignant Neoplasm Of Bladder (HCC) documented in this encounter Care Teams Security Systems Technician Relationship Specialty Start Date End Date Elsewhere, Pcp PCP - General Internal Medicine 01/14/22 documented as of this encounter
--- OUTSIDE RECORDS SUMMARY | 2022-07-31 15:45 | XMS_ITS | Encounter Summary ---
:1935 Author Organization [facility] Address [address] [place] [address] Care Team Providers Name Role Phone Elsewhere, Pcp Primary Care Provider Unavailable Reason for Visit Reason Comments Appointment Cancelled Encounter Details Date Type Department Care Team Description 05/21/2022 Clinical Communication Department of Adonay Klein Urology in Bassam Ayala M.D. Cancelled [address] [place] [phone] [place], [place] [phone] (Work) [phone] Social History Tobacco Use Types Packs/Day Years [...] you attend pentecostal or Patient refused 2021 jew services? 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 [address] [place] [address] [phone] (Octavio christensen) 08/20/2022 Appointment Radiology Claude Loaiza MPAS, P.A.-C. [address] [place] [address] [phone] (Octavio christensen) 08/22/2022 Virtual Visit Urology Gibran Ruvalcaba M.D. [address] [place] [address] [phone] (Octavio christensen) documented as of this encounter Visit Diagnoses Not on filedocumented in this encounter Care Teams Psychologist Developmental Relationship Specialty Start Date End Date Elsewhere, Pcp PCP - General Internal Medicine 01/14/22 documented as of this encounter
--- OUTSIDE RECORDS SUMMARY | 2022-07-31 15:46 | XMS_ITS | Encounter Summary ---
:1935 Author Organization [facility] Address [address] [place] [address] Care Team Providers Name Role Phone Elsewhere, Pcp Primary Care Provider Unavailable Encounter Details Date Type Department Care Team Description 03/26/2022 Orders Only Department of Urology in Kimberly Sethi M .D., [place], [place] Ph.D. [address] [place] [phone] Social History Tobacco Use Types Packs/Day [...] you attend restoration or Patient refused 2021 taoism services? 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 [address] [place] [address] [phone] (Wo rk) 08/20/2022 Appointment Radiology Claude Loaiza MPAS P.A.-C. [address] [place] [address] [phone] (Wo rk) 08/22/2022 Virtual Visit Urology Gibran Ruvalcaba M.D. [address] [place] [address] [phone] (Wo rk) documented as of this encounter Visit Diagnoses Not on filedocumented in this encounter Care Teams Barn And Property Manager Relationship Specialty Start Date End Date Elsewhere, Pcp PCP - General Internal Medicine 01/14/22 documented as of this encounter
--- OUTSIDE RECORDS SUMMARY | 2022-07-31 15:46 | XMS_ITS | Encounter Summary ---
:1935 Author Organization [facility] Address [address] [place] [address] Care Team Providers Name Role Phone Elsewhere, Pcp Primary Care Provider Unavailable Reason for Visit Outpatient (Routine) - Canceled Specialty Diagnoses / Procedures Referred By Contact Refer red To Contact Radiology Diagnoses Retention Urinary Chronic Kimberly Sethi M.D., [facility] Procedures IR Genitourinary Procedure Ph.D. 200 [place] [address] Referral ID Status Reason Start Date Expiration Date Visits V isits Requested Authorized [id number] Canceled 03/25/2022 03/25/2023 1 1 Encounter Details Date Type Department Care Team Description 04/02/2022 Hospital Encounter Department of Kimberly Sethi M.D., Ph.D. Canceled (Patient: Radiology in Shoaib Poe M.D. [address] [place] [phone] Request) [place], [place] [address] [place] [phone] Social History Tobacco Use Types Packs/Day Years [...] attend oriental orthodox or Patient refused 2021 taoism services? 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 [address] [place], [place] 55 [phone] (Octavio rk) 08/20/2022 Appointment Radiology Claude Loaiza MPAS, P.A.-C. [address] [place], [place] 55 [phone] (Octavio rk) 08/22/2022 Virtual Visit Urology Gibran Ruvalcaba M.D. [address] [place], [place] 55 [phone] (Octavio rk) documented as of this encounter Visit Diagnoses Not on filedocumented in this encounter Care Teams Rail Loader Relationship Specialty Start Date End Date Elsewhere, Pcp PCP - General Internal Medicine 01/14/22 documented as of this encounter
--- OUTSIDE RECORDS SUMMARY | 2022-07-31 15:46 | XMS_ITS | Encounter Summary ---
:1935 Author Organization [facility] Address [address] [place] [address] Care Team Providers Name Role Phone Elsewhere, Pcp Primary Care Provider Unavailable Reason for Referral Outpatient (Routine) - Closed Specialty Diagnoses / Procedures Referred By Contact Refer red To Contact Radiation Oncology Iris Mishra P.A.-C., [facility] [address] [place] [phone] Referral ID Status Reason Start Date Expiration Date Visits Requ ested Visits Authorized [id number] Closed 03/25/2022 03/25/2023 1 1 Reason for Visit Outpatient (Routine) - Closed Specialty Diagnoses / Procedures Referred By Contact Refer red To Contact Radiation Oncology Iris Mishra P.A.-C., [facility] [address] [place] [phone] Referral ID Status Reason Start Date Expiration Date Visits Requ ested Visits Authorized [id number] Closed 03/25/2022 03/25/2023 1 1 Encounter Details Date Type Department Care Team Description 03/26/2022 Hospital Encounter Department of Manny Anderson Neoplasm Radiation Oncology Ashtyn Dubois Of Bladder (HCC) in [address] (Primary Dx) [place], [place] 1821 [facility] [address] [place], [place] [phone] (Work) [phone] Social History Tobacco Use Types Packs/Day Years [...] many times do you More than three alcieds es a week 05/17/2022 talk on the phone with family, friends, or neighbors? How often do you get together with friends Three times a wee k 05/17/2022 or relatives? How often do you attend baptist or Patient refused 2021 mosque services? Do you belong to any clubs or No 05/17/2022 organizations such as baptist groups, unions, fraIperia or athletic groups, or school groups? How [...] at Date Recorded Male 09/10/2018 8:41 AM CLIENT SUCCESS MANAGER documented as of this encounter Last [...] PM CDT RADIATION ONCOLOGY FOLLOW-UP VISIT Supervising Semiconductor Engineer: Dr. Manny Anderson Home address: [address] [place] [phone] SUBJECTIVE History of present illness Mr. Henok [...] 01/24/2022 Other The patient presented to the [facility] ED with a chief complaint of [...] was performed by Dr. Kurtis Bach at [facility] and demonstrated a large medial lobe of the prostate, 3 cm, with papillary bladder mass, 5 cm, the left bladder wall obstructing the left UO. The patient reported a history of gross hematuria for months and difficulty emptying his bladder. Discussed that the patient ideally would need TURBT and bilateral retrogrades. 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 02/08/2022 Other Urology consultation at [facility] with Dr. David Day who recommended proceeding [...] or concerns. Dr. Manny Anderson is the energy consultant; please see attestation for further details. [...] one of our medical oncology colleagues at [facility] at the end of his [...] Manny Anderson M.D. 03/26/2022 4:46 PM CDT [facility] [address] [place] [address] documented in this encounter Plan of Treatment Upcoming Encounters Date Type Specialty Care Team Description 08/20/2022 Appointment Radiology Claude Loaiza MPAS, P.A.-C. [address] [place] [address] [phone] (Octavio christensen) 08/20/2022 Appointment Radiology Claude Loaiza MPAS, P.A.-C. [address] [place] [address] [phone] (Octavio christensen) 08/22/2022 Virtual Visit Urology Gibran Ruvalcaba M.D. 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
--- OUTSIDE RECORDS SUMMARY | 2022-07-31 15:46 | XMS_ITS | Encounter Summary ---
:1935 Author Organization [facility] Address [address] [place] [address] Care Team Providers Name Role Phone Elsewhere, Pcp Primary Care Provider Unavailable Encounter Details Date Type Department Care Team Description 03/22/2022 Clinical Communication Department of Urology Flakita Bardshaw in Sherly Batista M.D. [address] [place] [phone] Social History Tobacco Use Types Packs/Day Years [...] you attend baptist or Patient refused 2021 rastafarian services? 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MINISTRATOR documented as of this encounter Miscellaneous Notes [...] Appointment Radiology Claude Loaiza MPAS, P.A.-CJluis [address] [place] [address] [phone] (Octavio christensen) 08/20/2022 Appointment Radiology Claude Loaiza MPAS, P.A.-C. [address] [place] [address] [phone] (Octavio christensen) 08/22/2022 Virtual Visit Urology Gibran Ruvalcaba M.D. [address] [place] [address] [phone] (Octavio christensen) documented as of this encounter Visit Diagnoses Not on filedocumented in this encounter Care Teams Provider Scribe Relationship Specialty Start Date End Date Elsewhere, Pcp PCP - General Internal Medicine 01/14/22 documented as of this encounter
--- OUTSIDE RECORDS SUMMARY | 2022-07-31 15:46 | XMS_ITS | Encounter Summary ---
:[address] [facility] Address [address] [place] [address] Care Team Providers Name Role Phone Elsewhere, Pcp Primary Care Provider Unavailable Encounter Details Date Type Department Care Team Description 03/22/2022 Clinical Communication Department of Urology Flakita Bradshaw in Sherly Batista M.D. [address] [place] [phone] Social History Tobacco Use Types Packs/Day Years [...] or relatives? How often do you attend druze or Patient refused 2021 samaritan services? 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 [address] [place] [address] [phone] (Wo rk) 08/20/2022 Appointment Radiology Claude Loaiza MPAS, P.A.-C. [address] [place] [address] [phone] (Wo rk) 08/22/2022 Virtual Visit Urology Gibran Ruvalcaba M.D. [address] [place] [address] [phone] (Wo rk) documented as of this encounter Visit Diagnoses Not on filedocumented in this encounter Care Teams Help Desk Support Relationship Specialty Start Date End Date Elsewhere, Pcp PCP - General Internal Medicine 01/14/22 documented as of this encounter
--- OUTSIDE RECORDS SUMMARY | 2022-07-31 15:46 | XMS_ITS | Encounter Summary ---
:1935 Author Organization [facility] Address [address] [place] [address] Care Team Providers Name Role Phone Elsewhere, Pcp Primary Care Provider Unavailable Reason for Referral Outpatient (Routine) - Authorized Specialty Diagnoses / Procedures Referred By Contact Refer red To Contact Urology Kimberly Sethi M.D., Ph.D. [address] [phone] Referral ID Status Reason Start Date Expiration Date Visits V isits Requested Authorized [id number] Authorized 03/25/2022 03/25/2023 1 1 Encounter Details Date Type Department Care Team Description 03/25/2022 Orders Only Department of Urology Kimberly Sethi Rete ntion Urinary in [facility] lonny Chamorro, Ph.D. Chronic (Primary Dx) [address] [place] [phone] Social History Tobacco Use Types Packs/Day Years [...] you attend orthodox or Patient refused 2021 pentecostal services? Do you belong to any clubs [...] at Date Recorded Male 09/10/2018 8:41 AM ANALYTICAL LEAD documented as of this encounter Plan of Treatment Upcoming Encounters Date Type Specialty Care Team Description 08/20/2022 Appointment Radiology Claude Loaiza, GARCIA, P.A.-C. [address] [place] [address] [phone] (Wo rk) 08/20/2022 Appointment Radiology Claude Loaiza MPAS, P.A.-C. [address] [place] [address] [phone] (Octavio rk) 08/22/2022 Virtual Visit Urology Gibran Ruvalcaba M.D. [address] [place] [address] [phone] (Octavio rk) Scheduled Referrals Name Type Priority Associated Diagnoses Order S jermain Urology nurse Outpatient Referral Routine Expecte d: visit (clinic) 03/25/2022 (Approximate), Expires: 06/25/2023 documented as of this encounter Visit Diagnoses Diagnosis Retention Urinary Chronic - Primary documented in this encounter Care Teams Wool Hat Hydraulicker Relationship Specialty Start Date End Date Elsewhere, Pcp PCP - General Internal Medicine 01/14/22 documented as of this encounter
--- OUTSIDE RECORDS SUMMARY | 2022-07-31 15:46 | XMS_ITS | Encounter Summary ---
:1935 Author Organization [facility] Address [address] [place] [address] Care Team Providers Name Role Phone Elsewhere, Pcp Primary Care Provider Unavailable Encounter Details Date Type Department Care Team Description 04/16/2022 Hospital Encounter Department of Radiation Calin Anderson, Oncology in [address] [place] [phone] Social History Tobacco Use Types Packs/Day Years [...] you attend zoroastrian or Patient refused 2021 catholic services? 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 [address] [place] [address] [phone] (Wo rk) 08/20/2022 Appointment Radiology Claude Loaiza MPAS, P.A.-C. [address] [place], [place] 55 [phone] (Wo rk) 08/22/2022 Virtual Visit Urology Gibran Ruvalcaba M.D. [address] [place], [place] 55 [phone] (Wo rk) documented as of this encounter Visit Diagnoses Not on filedocumented in this encounter Care Teams Racing Secretary Relationship Specialty Start Date End Date Elsewhere, Pcp PCP - General Internal Medicine 01/14/22 documented as of this encounter
--- OUTSIDE RECORDS SUMMARY | 2022-07-31 15:46 | XMS_ITS | Encounter Summary ---
:1935 Author Organization [facility] Address [address] [place] [address] Care Team Providers Name Role Phone Elsewhere, Pcp Primary Care Provider Unavailable Encounter Details Date Type Department Care Team Description 04/09/2022 Hospital Encounter Department of Radiation Calin Anderson, Oncology in [address] [place] [phone] Social History Tobacco Use Types Packs/Day Years [...] or relatives? How often do you attend yazdanism or Patient refused 2021 evangelical services? Do you belong to any clubs or No 05/17/2022 organizations such as yazdanism groups, unions, fraternal or athletic groups, or [...] at Date Recorded Male 09/10/2018 8:41 AM RIVETER HAND documented as of this encounter Medications at [...] Radiology Claude Loaiza, MPAS, P.A.-C. [address] [place] [address] [phone] (Wo rk) 08/20/2022 Appointment Radiology Claude Loaiza MPAS, P.A.-C. [address] [place], [place] 55 [phone] (Wo rk) 08/22/2022 Virtual Visit Urology Gibran Ruvalcaba M.D. [address] [place], [place] 55 [phone] (Wo rk) documented as of this encounter Visit Diagnoses Not on filedocumented in this encounter Care Teams Ecommerce Project Manager Relationship Specialty Start Date End Date Elsewhere, Pcp PCP - General Internal Medicine 01/14/22 documented as of this encounter
--- OUTSIDE RECORDS SUMMARY | 2022-07-31 15:46 | XMS_ITS | Encounter Summary ---
:1935 Author Organization [facility] Address [address] [place] [address] Care Team Providers Name Role Phone Elsewhere, Pcp Primary Care Provider Unavailable Reason for Visit Reason Comments Appointment Pre-visit Testing Orders Encounter Details Date Type Department Care Team Description 03/26/2022 Clinical Communication Department of Adonay Sethi; Urology in Ashtyn Harris, Pre-visit Test aidee Batista, Ph.D. Orders [place] [id number] [place] [address] Social History Tobacco Use Types Packs/Day Years [...] you attend denominational or Patient refused 2021 orthodoxy services? 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 UNCLAIMED PROPERTY MANAGER documented as of this encounter Miscellaneous [...] an appt to do Radiation Therapy in [place] 04/02. Lucille states they cannot do that all . Lucille would like a call to discuss what is happening @ [phone]. Thank you. documented in this encounter Plan of Treatment Upcoming Encounters Date Type Specialty Care Team Description 08/20/2022 Appointment Radiology Claude Loaiza MPAS, PJluisA.-C. [address] [place], [place] 55 [phone] (Octavio christensen) 08/20/2022 Appointment Radiology Claude Loaiza MPAS, P.A.-C. [address] [place] [address] [phone] (Octavio christensen) 08/22/2022 Virtual Visit Urology Gibran Ruvalcaba M.D. [address] [place], [place] 55 [phone] (Octavio christensen) documented as of this encounter Visit Diagnoses Not on filedocumented in this encounter Care Teams Litigation Legal Assistant Relationship Specialty Start Date End Date Elsewhere, Pcp PCP - General Internal Medicine 01/14/22 documented as of this encounter
--- OUTSIDE RECORDS SUMMARY | 2022-07-31 15:46 | XMS_ITS | Encounter Summary ---
:1935 Author Organization [facility] Address [address] [place] [address] Care Team Providers Name Role Phone Elsewhere, Pcp Primary Care Provider Unavailable Encounter Details Date Type Department Care Team Description 03/24/2022 Clinical Communication Department of Urology Hector Sethi, in [facility] lonny Chamorro, Ph.D. [address] [place] [phone] Social History Tobacco Use Types Packs/Day Years [...] you attend confucianism or Patient refused 2021 church services? Do you belong to any clubs [...] at Date Recorded Male 09/10/2018 8:41 AM PERCHER documented as of this encounter Miscellaneous Notes [...] Appointment Radiology Claude Loaiza MPAS, P.A.-C. [address] [place] [address] [phone] (Octavio christensen) 08/20/2022 Appointment Radiology Claude Loaiza MPAS, P.A.-C. [address] [place] [address] [phone] (Octavio rk) 08/22/2022 Virtual Visit Urology Gibran Ruvalcaba M.D. [address] [place] [address] 55 [phone] (Octavio christensen) documented as of this encounter Visit Diagnoses Not on filedocumented in this encounter Care Teams Squadron Worker Relationship Specialty Start Date End Date Elsewhere, Pcp PCP - General Internal Medicine 01/14/22 documented as of this encounter
--- OUTSIDE RECORDS SUMMARY | 2022-07-31 15:46 | XMS_ITS | Encounter Summary ---
:1935 Author Organization [facility] Address [address] [place] [address] Care Team Providers Name Role Phone Elsewhere, Pcp Primary Care Provider Unavailable Encounter Details Date Type Department Care Team Description 03/27/2022 Clinical Communication Department of Harrison Lennon, Radiation Oncology in [place], [facility] [address] [place] [address] 1821 [place] [phone] Social History Tobacco Use Types Packs/Day Years [...] or relatives? How often do you attend yazidism or Patient refused 2021 voodoo services? Do you belong to any clubs or No 05/17/2022 organizations such as yazidism groups, unions, fraternal or athletic groups, or [...] at Date Recorded Male 09/10/2018 8:41 AM SLURRY TANK TENDER documented as of this encounter Miscellaneous [...] for a second opinion from outside of [place]. I informed her that we will keep the appointments as outlined above but can change them if they desire. Harrison Lennon M.D., M.S. documented in this encounter Plan of Treatment Upcoming Encounters Date Type Specialty Care Team Description 08/20/2022 Appointment Radiology Claude Loaiza MPAS, P.A.-C. [address] [place], [place] 55 [phone] (Octavio christensen) 08/20/2022 Appointment Radiology Claude Loaiza MPAS, P.A.-C. [address] [place], [place] 55 [phone] (Octavio christensen) 08/22/2022 Virtual Visit Urology Gibran Ruvalcaba M.D. [address] [place], [place] 55 [phone] (Wo rk) documented as of this encounter Visit Diagnoses Not on filedocumented in this encounter Care Teams Supervisor Beam Department Relationship Specialty Start Date End Date Elsewhere, Pcp PCP - General Internal Medicine 01/14/22 documented as of this encounter
--- OUTSIDE RECORDS SUMMARY | 2022-07-31 15:46 | XMS_ITS | Encounter Summary ---
:1935 Author Organization [facility] Address [address] [place] [address] Care Team Providers Name Role Phone Elsewhere, Pcp Primary Care Provider Unavailable Encounter Details Date Type Department Care Team Description 03/26/2022 Orders Only Department of Harmony Story N eoplasm Of Bladder (HCC) (Primary Dx); Radiology in A, R.N. Negative COVID-19 Test (Contact With And (Suspected) Exposure To COVID-19); [place], [place] [address] [facility] Encounter For Preprocedural Laboratory E xamination (COVID-19) [address] [place] [phone] Social History Tobacco Use Types Packs/Day Years [...] or relatives? How often do you attend baptism or Patient refused 2021 latter-day services? 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 [address] [place] [address] [phone] (Wo rk) 08/20/2022 Appointment Radiology Claude Loaiza MPAS, P.A.-C. [address] [place] [address] [phone] (Wo rk) 08/22/2022 Virtual Visit Urology Gibran Ruvalcaba M.D. [address] [place] [address] [phone] (Wo rk) Scheduled Orders Name [...] (COVID-19) documented in this encounter Care Teams Sports Coordinator Relationship Specialty Start Date End Date Elsewhere, Pcp PCP - General Internal Medicine 01/14/22 documented as of this encounter
--- OUTSIDE RECORDS SUMMARY | 2022-07-31 15:46 | XMS_ITS | Encounter Summary ---
:1935 Author Organization [facility] Address [address] [place] [address] Care Team Providers Name Role Phone Elsewhere, Pcp Primary Care Provider Unavailable Encounter Details Date Type Department Care Team Description 03/24/2022 Orders Only Department of Urology Kimberly Sethi Rete ntion Urinary in [facility] lonny Chamorro, Ph.D. Chronic (Primary Dx) [address] [place] [phone] Social History Tobacco Use Types Packs/Day Years [...] you attend hindu or Patient refused 2021 scientology services? 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 ROOM WORKER documented as of this encounter Plan of Treatment Upcoming Encounters Date Type Specialty Care Team Description 08/20/2022 Appointment Radiology Claude Loaiza, GARCIA, P.A.-C. [address] [place] [address] [phone] (Wo rk) 08/20/2022 Appointment Radiology Claude Loaiza MPAS, P.A.-C. [address] [place] [address] [phone] (Wo rk) 08/22/2022 Virtual Visit Urology Gibran Ruvalcaba M.D. [address] [place], [place] [phone] (Wo rk) Scheduled Orders [...] Primary documented in this encounter Care Teams Products Mechanical Design Engineer Relationship Specialty Start Date End Date Elsewhere, Pcp PCP - General Internal Medicine 01/14/22 documented as of this encounter
--- OUTSIDE RECORDS SUMMARY | 2022-07-31 15:46 | XMS_ITS | Encounter Summary ---
:1935 Author Organization [facility] Address [address] [place] [address] Care Team Providers Name Role Phone Elsewhere, Pcp Primary Care Provider Unavailable Encounter Details Date Type Department Care Team Description 04/05/2022 Hospital Encounter Department of Radiation Calin Anderson, Oncology in [address] [place] [phone] Social History Tobacco Use Types Packs/Day Years [...] or relatives? How often do you attend scientology or Patient refused 2021 latter-day services? Do you belong to any clubs or No 05/17/2022 organizations such as scientology groups, unions, fraternal or athletic groups, or [...] at Date Recorded Male 09/10/2018 8:41 AM SIMONIZER documented as of this encounter Medications at [...] Loaiza, MPAS, P.A.-C. [address] [place] [address] [phone] (Wo rk) 08/20/2022 Appointment Radiology Claude Loaiza MPAS, P.A.-C. [address] [place], [place] [phone] (Wo rk) 08/22/2022 Virtual Visit Urology Gibran Ruvalcaba M.D. [address] [place], [place] [phone] (Wo rk) documented as of this encounter Visit Diagnoses Not on filedocumented in this encounter Care Teams Helpdesk Technician Relationship Specialty Start Date End Date Elsewhere, Pcp PCP - General Internal Medicine 01/14/22 documented as of this encounter
--- OUTSIDE RECORDS SUMMARY | 2022-07-31 15:46 | XMS_ITS | Encounter Summary ---
:1935 Author Organization [facility] Address [address] [place] [address] Care Team Providers Name Role Phone Elsewhere, Pcp Primary Care Provider Unavailable Reason for Referral Radiation Therapy (Routine) - Authorized Specialty Diagnoses / Procedures Referred By Contact Refer red To Contact Diagnoses Malignant Neoplasm Of Bladder (HCC) Manny Anderson M.D. [facility] Procedures Management Visit [address] [place], [place] [phone] Referral ID Status Reason Start Date Expiration Date Visits V isits Requested Authorized [id number] Authorized 03/05/2022 03/05/2023 10 10 Reason for Visit Radiation Therapy (Routine) - Authorized Specialty Diagnoses / Procedures Referred By Contact Refer red To Contact Diagnoses Malignant Neoplasm Of Bladder (HCC) Manny Anderson M.D. [facility] Procedures Management Visit [address] [place], [place] [address] Referral ID Status Reason Start Date Expiration Date Visits V isits Requested Authorized [id number] Authorized 03/05/2022 03/05/2023 10 10 Encounter Details Date Type Department Care Team Description 04/09/2022 Hospital Encounter Department of Isidro Anderson M.D. [address] [place] [phone] Malignant Neoplasm Radiation Oncology Heladio Del Real M.D. [address] [place] [address] Of Bladder (HCC) in [place], [place] [address] [place] [address] Social History Tobacco Use Types [...] you attend moravian or Patient refused 2021 christianity services? 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 Avoid touching your eyes, nose and mouth. Clean and disinfect household surfaces daily and high- touch surfaces frequently throughout the day. documented in this encounter Plan of Treatment Upcoming Encounters Date Type Specialty Care Team Description 08/20/2022 Appointment Radiology Claude Loaiza MPAS, P.A.-C. [address] [place] [address] [phone] (Octavio christensen) 08/20/2022 Appointment Radiology Claude Loaiza MPAS PJluisA.-C. [address] [place] [address] [phone] (Octavio christensen) 08/22/2022 Virtual Visit Urology Gibran Ruvalcaba M.D. [address] [place] [address] [phone] (Octavio christensen) Scheduled Orders Name Type Priority Associated Diagnoses Order S chedule Management Visit Radiation Oncology Routine Malignant Neoplasm Once for 1 Of Bladder (HCC) Occurrences starting 04/09/2022 unti l 04/09/2022 documented as of this encounter Visit Diagnoses Diagnosis Malignant Neoplasm Of Bladder (HCC) documented in this encounter Care Teams Youth Specialist Relationship Specialty Start Date End Date Elsewhere, Pcp PCP - General Internal Medicine 01/14/22 documented as of this encounter
--- OUTSIDE RECORDS SUMMARY | 2022-07-31 15:46 | XMS_ITS | Encounter Summary ---
:1935 Author Organization [facility] Address [address] [place] [address] Care Team Providers Name Role Phone Elsewhere, Pcp Primary Care Provider Unavailable Reason for Referral Radiation Therapy (Routine) - Authorized Specialty Diagnoses / Procedures Referred By Contact Refer red To Contact Diagnoses Malignant Neoplasm Of Bladder (HCC) Manny Anderson M.D. [facility] Procedures Management Visit [address] [place] [phone] Referral ID Status Reason Start Date Expiration Date Visits V isits Requested Authorized [id number] Authorized 03/05/2022 03/05/2023 10 10 Reason for Visit Radiation Therapy (Routine) - Authorized Specialty Diagnoses / Procedures Referred By Contact Refer red To Contact Diagnoses Malignant Neoplasm Of Bladder (HCC) [facility]. [facility] Procedures Management Visit [address] [place], [place] [phone] Referral ID Status Reason Start Date Expiration Date Visits V isits Requested Authorized [id number] Authorized 03/05/2022 03/05/2023 10 10 Encounter Details Date Type Department Care Team Description 04/02/2022 Hospital Encounter Department of Manny Anderson Neoplasm Radiation Oncology Ashtyn Dubois Of Bladder (HCC) in [place], [address] [place], [place] [address] [facility] [address] [place], [place] [phone] (Work) [phone] Social History Tobacco Use Types Packs/Day Years [...] you attend worship or Patient refused 2021 church services? 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 ([id number]) HISTORY OF PRESENT ILLNESS Mr. Henok Chery is an 86 y.o. 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 He is now receiving twice weekly radiation therapy. Treatment Course: 1xBladder Plan ID Fractions Dose / Fraction (cGy) Dose Treated (cGy) Dose Planned (cGy) First Treatment Last Treatment Elapsed Days [id number] [phone] 04/02/2022 04/02/2022 0 Course Summary 04/02/2022 04/02/2022 [...] Manny Anderson M.D. 04/02/2022 3:55 PM CDT [facility] [address] [place] [phone] documented in this encounter Plan of Treatment Upcoming Encounters Date Type Specialty Care Team Description 08/20/2022 Appointment Radiology Claude Loaiza MPAS, P.A.-C. [address] [place], [place] [phone] (Octavio christensen) 08/20/2022 Appointment Radiology Claude Loaiza MPAS, P.A.-C. [address] [place], [place] [phone] (Octavio christensen) 08/22/2022 Virtual Visit Urology Gibran Ruvalcaba M.D. [address] [place], [place] [phone] (Octavio christensen) Scheduled Orders Name Type Priority Associated Diagnoses Order S chedule Management Visit Radiation Oncology Routine Malignant Neoplasm Once for 1 Of Bladder (HCC) Occurrences starting 04/02/2022 unti l 04/02/2022 documented as of this encounter Visit Diagnoses Diagnosis Malignant Neoplasm Of Bladder (HCC) documented in this encounter Care Teams Manager Quality Improvement Relationship Specialty Start Date End Date Elsewhere, Pcp PCP - General Internal Medicine 01/14/22 documented as of this encounter
--- OUTSIDE RECORDS SUMMARY | 2022-07-31 15:46 | XMS_ITS | Encounter Summary ---
:1935 Author Organization [facility] Address [address] [place] [address] Care Team Providers Name Role Phone Elsewhere, Pcp Primary Care Provider Unavailable Encounter Details Date Type Department Care Team Description 03/27/2022 Clinical Communication Department of Urology Lisbeth Nguyen in [facility] [phone] [address] [facility] (Work) [place] [address] Social History Tobacco Use Types Packs/Day Years [...] you attend pentecostalism or Patient refused 2021 church services? 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 [address] [place] [address] [phone] (Wo rk) 08/20/2022 Appointment Radiology Claude Loaiza MPAS P.AJluis-C. [address] [place] [address] [phone] (Wo rk) 08/22/2022 Virtual Visit Urology Gibran Ruvalcaba M.D. [address] [place] [address] [phone] (Wo rk) documented as of this encounter Visit Diagnoses Not on filedocumented in this encounter Care Teams Ancillary Services Manager Relationship Specialty Start Date End Date Elsewhere, Pcp PCP - General Internal Medicine 01/14/22 documented as of this encounter
--- OUTSIDE RECORDS SUMMARY | 2022-07-31 15:46 | XMS_ITS | Encounter Summary ---
:1935 Author Organization [facility] Address [address] [place] [address] Care Team Providers Name Role Phone Elsewhere, Pcp Primary Care Provider Unavailable Reason for Referral Outpatient (Routine) - Closed Specialty Diagnoses / Procedures Referred By Contact Refer red To Contact Radiation Oncology Iris Mishra P.A.-C., [facility] [address] [place] [phone] Referral ID Status Reason Start Date Expiration Date Visits Requ ested Visits Authorized [id number] Closed 03/25/2022 03/25/2023 1 1 Encounter Details Date Type Department Care Team Description 03/25/2022 Orders Only Department of Radiation [facility] Of Oncology in [place], Eduardo, M.S. Bladder (HCC) (Primary [place] [address] [place] Dx) [address] [place] [phone] Social History Tobacco Use Types Packs/Day Years [...] you attend jainism or Patient refused 2021 buddhism services? Do you belong to any clubs or No 05/17/2022 organizations such as jainism groups, unions, fraternal or athletic groups, or [...] Date Recorded Male 09/10/2018 8:41 AM CLINICAL VETERINARIAN documented as of this encounter Plan of Treatment Upcoming Encounters Date Type Specialty Care Team Description 08/20/2022 Appointment Radiology Claude Loaiza MPAS, P.A.-C. [address] [place] [address] [phone] (Octavio christensen) 08/20/2022 Appointment Radiology Claude Loaiza MPAS, P.A.-C. [address] [place] [address] [phone] (Octavio christensen) 08/22/2022 Virtual Visit Urology Gibran Ruvalcaba M.D. [address] [place] [address] [phone] (Octavio christensen) Scheduled Referrals Name Type Priority Associated Diagnoses Order S jermain Radiation Oncology Outpatient Referral Routine Ex pected: office visit 03/26/2022 (clinic) (Approximate), Expires: 03/25/2023 documented as of this encounter Visit Diagnoses Diagnosis Malignant Neoplasm Of Bladder (HCC) - Pr imary documented in this encounter Care Teams Research Clerk Relationship Specialty Start Date End Date Elsewhere, Pcp PCP - General Internal Medicine 01/14/22 documented as of this encounter
--- OUTSIDE RECORDS SUMMARY | 2022-07-31 15:46 | XMS_ITS | Encounter Summary ---
:1935 Author Organization [facility] Address [address] [place] [address] Care Team Providers Name Role Phone Elsewhere, Pcp Primary Care Provider Unavailable Encounter Details Date Type Department Care Team Description 03/26/2022 Clinical Communication Department of Radiology Harmony Starks in [facility] lonny A, R.N. [address] [place] [address] [address] [place] [phone] Social History Tobacco Use Types Packs/Day Years [...] you attend jain or Patient refused 2021 methodist services? 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 Sethi to schedule Mr. Chery for Suprapubic catheter placement. I have Mr. Chery scheduled to undergo Suprapubic catheter placement at [facility] with Dr. Poe on 04/02/2022. The patient is scheduled to report to [facility], [facility] Anthony Art MD the morning of the procedure. ??? Patient is not on blood thinners. ??? Patient is diabetic. ??? Villarreal catheter and left nephrostomy tube currently in place. ??? COVID 19 PCR testing to be completed on: 04/01/2022. ??? Urology nurse education scheduled on 04/01/2022. ??? AUTO DISMANTLER needed for procedure. This procedure is scheduled [...] rescheduled to undergo Suprapubic catheter placement at [facility] with Dr. Wu on 05/07/2022. The patient is scheduled to report to [facility], [facility] Anthony Art MD at 9:00 a.m. the morning of the procedure. ??? COVID 19 PCR testing to be completed on: 05/03/2022. ??? AUTO DISMANTLER needed for procedure. documented in this encounter Plan of Treatment Upcoming Encounters Date Type Specialty Care Team Description 08/20/2022 Appointment Radiology Claude Loaiza, GARCIA, P.A.-C. [address] [place] [address] [phone] (Wo rk) 08/20/2022 Appointment Radiology Claude Loaiza MPAS, P.A.-C. [address] [place] [address] [phone] (Wo rk) 08/22/2022 Virtual Visit Urology Gibran Ruvalcaba M.D. [address] [place] [address] [phone] (Wo rk) documented as of this encounter Visit Diagnoses Not on filedocumented in this encounter Care Teams Mixing Plant Dumper Relationship Specialty Start Date End Date Elsewhere, Pcp PCP - General Internal Medicine 01/14/22 documented as of this encounter
--- OUTSIDE RECORDS SUMMARY | 2022-07-31 15:46 | XMS_ITS | Encounter Summary ---
:1935 Author Organization [facility] Address [address] [place] [address] Care Team Providers Name Role Phone Elsewhere, Pcp Primary Care Provider Unavailable Encounter Details Date Type Department Care Team Description 04/12/2022 Hospital Encounter Department of Radiation Calin Anderson, Oncology in [address] [place] [phone] Social History Tobacco Use Types Packs/Day Years [...] you attend druze or Patient refused 2021 sikhism services? 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 [address] [place] [address] [phone] (Wo rk) 08/20/2022 Appointment Radiology Claude Laoiza MPAS, P.A.-C. [address] [place], [place] [phone] (Wo rk) 08/22/2022 Virtual Visit Urology Gibran Ruvalcaba M.D. [address] [place], [place] [phone] (Wo rk) documented as of this encounter Visit Diagnoses Not on filedocumented in this encounter Care Teams Management Lecturer Relationship Specialty Start Date End Date Elsewhere, Pcp PCP - General Internal Medicine 01/14/22 documented as of this encounter
--- OUTSIDE RECORDS SUMMARY | 2022-07-31 15:46 | XMS_ITS | Encounter Summary ---
:1935 Author Organization [facility] Address [address] [place] [address] Care Team Providers Name Role Phone Elsewhere, Pcp Primary Care Provider Unavailable Encounter Details Date Type Department Care Team Description 04/02/2022 Hospital Encounter Department of Radiation Calin Anderson, Oncology in [address] [place] [phone] Social History Tobacco Use Types Packs/Day Years [...] you attend latter-day or Patient refused 2021 sabianism services? Do [...] or slept in a half-way (including now)? Sex Assigned at Date Recorded Male 09/10/2018 8:41 AM PLATE PREPARER documented as of this encounter Medications at [...] Radiology Claude Loaiza, MPAS, P.A.-C. [address] [place] [address] [phone] (Wo rk) 08/20/2022 Appointment Radiology Claude Loaiza MPAS, P.A.-C. [address] [place], [place] [phone] (Wo rk) 08/22/2022 Virtual Visit Urology Gibran Ruvalcaba M.D. [address] [place], [place] [phone] (Wo rk) documented as of this encounter Visit Diagnoses Not on filedocumented in this encounter Care Teams Re Recording Mixer Relationship Specialty Start Date End Date Elsewhere, Pcp PCP - General Internal Medicine 01/14/22 documented as of this encounter
--- OUTSIDE RECORDS SUMMARY | 2022-07-31 15:46 | XMS_ITS | Encounter Summary ---
:1935 Author Organization [facility] Address [address] [place] [address] Care Team Providers Name Role Phone Elsewhere, Pcp Primary Care Provider Unavailable Reason for Visit Outpatient (Routine) - Closed Specialty Diagnoses / Procedures Referred By Contact Refer red To Contact Diagnoses Benign Prostatic Hyperplasia Hypertrophy With Obstruction Flakita Bradshaw M.D. Procedures URO Urodynamic study (with flow) [address] [place] [phone] Referral ID Status Reason Start Date Expiration Date Visits Requ ested Visits Authorized [id number] Closed 03/21/2022 03/21/2023 1 1 Encounter Details Date Type Department Care Team Description 03/22/2022 Procedure visit Department of Flakita Bradshaw M.D. [address] [place] [phone] Benign Prostatic Urology in Bassam Klein M.D. [address] [place] [address] [phone] Hyperplasia [place] Kush Dumont [address] [place] [phone] Hypertrophy With [address] [facility] Obstruction [place] [phone] Social History Tobacco Use Types Packs/Day Years [...] or relatives? How often do you attend episcopalian or Patient refused 2021 moravian services? Do you belong to any clubs or No 05/17/2022 organizations such as episcopalian groups, unions, fraAVIA or athletic groups, or school groups? 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 Flow study prior to procedure: No Amount of urine drained from bladder prior to study: 12 mls Catheter: 6 Korean Position: Sitting Fill rate: 25 ml/min EMG [...] Appointment Radiology Claude Loaiza MPAS PJluisAJluis-C. [address] [place] [address] [phone] (Octavio christensen) 08/20/2022 Appointment Radiology Claude Loaiza MPAS, P.AJluis-C. [address] [place] [address] [phone] (Wo fermin) 08/22/2022 Virtual Visit Urology Gibran Ruvalcaba M.D. [address] [place] [address] [place] [phone] (Wo rk) documented as [...] Obstruction documented in this encounter Care Teams Dye Weigher Helper Relationship Specialty Start Date End Date Elsewhere, Pcp PCP - General Internal Medicine 01/14/22 documented as of this encounter
--- OUTSIDE RECORDS SUMMARY | 2022-07-31 15:46 | XMS_ITS | Encounter Summary ---
:1935 Author Organization [facility] Address [address] [place] [address] Care Team Providers Name Role Phone Elsewhere, Pcp Primary Care Provider Unavailable Reason for Visit Reason Comments Procedure Encounter Details Date Type Department Care Team Description 03/27/2022 Clinical Communication Department of Manny Anderson Radiation Oncology giselle Dubois M.D. [facility] [address] [place] [address] 1821 [place] [phone] Social History Tobacco Use Types Packs/Day Years [...] you attend latter-day or Patient refused 2021 hinduism services? 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 200 [place], [place] [phone] (Wo rk) 08/22/2022 Virtual Visit Urology Gibran Ruvalcaba M.D. 200 [place], [place] [phone] (Wo rk) documented as of this encounter Visit Diagnoses Diagnosis Malignant Neoplasm Of Bladder (HCC) - Pr imary documented in this encounter Care Teams Artificial Flowers Dyer Relationship Specialty Start Date End Date Elsewhere, Pcp PCP - General Internal Medicine 01/14/22 documented as of this encounter
--- OUTSIDE RECORDS SUMMARY | 2022-07-31 15:46 | XMS_ITS | Encounter Summary ---
:1935 Author Organization [facility] Address [address] [place] [address] Care Team Providers Name Role Phone Elsewhere, Pcp Primary Care Provider Unavailable Reason for Referral Radiation Therapy (Routine) - Closed Specialty Diagnoses / Procedures Referred By Contact Refer red To Contact Diagnoses Malignant Neoplasm Of Bladder (HCC) Manny Anderson M.D. [facility] Region Procedures Initial Rad Onc Treatment Planning CT Simulation Initial Rad Onc Treatment Planning CT Simulation [address] [place] [address] Referral ID Status Reason Start Date Expiration Date Visits Requ ested Visits Authorized [id number] Closed 03/05/2022 03/05/2023 1 1 Reason for Visit Radiation Therapy (Routine) - Closed Specialty Diagnoses / Procedures Referred By Contact Refer red To Contact Diagnoses Malignant Neoplasm Of Bladder (HCC) Manny Anderson M.D. [facility] Region Procedures Initial Rad Onc Treatment Planning CT Simulation Initial Rad Onc Treatment Planning CT Simulation [address] [place], [place] [address] Referral ID Status Reason Start Date Expiration Date Visits Requ ested Visits Authorized [id number] Closed 03/05/2022 03/05/2023 1 1 Encounter Details Date Type Department Care Team Description 03/26/2022 Hospital Encounter Department of Manny Anderson Neoplasm Radiation Oncology L, M.D. Of Bladder (HCC) in [facility] [address] [place], [place] [address] [facility] [address] [place], [place] [phone] [address] (Work) [phone] Social History Tobacco Use Types Packs/Day Years [...] you attend faith or Patient refused 2021 uatsdin services? 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 CT images were transferred to the [employer] treatment planning system, after a reference isocenter was determined and marked. Segmentation and treatment planning will take place priorto treatment delivery. Patient set up and imaging was appropriate and completed without incident. Real Estate Manager use:No documented in this encounter Plan of Treatment Upcoming Encounters Date Type Specialty Care Team Description 08/20/2022 Appointment Radiology Claude Loaiza MPAS, P.A.-CJluis [address] [place] [address] [phone] (Wo rk) 08/20/2022 Appointment Radiology Claude Loaiza MPAS, P.A.-C. [address] [place] [address] [phone] (Wo rk) 08/22/2022 Virtual Visit Urology Gibran Ruvalcaba M.D. [address] [place] [address] [phone] (Wo rk) documented as of [...] Time Received Time / Laterality Volume Narrative [facility] - 03/26/2022 3:27 PM CDT Manasa Willett, RTT ? 03/26/2022 ??3:29 PM Initial Rad Onc Treatment Planning CT Si mulation Date/Time: 03/26/2022 3:27 PM Performed by: Manny Anderson M.D. Authorized by: Manny Anderson M.D. Manny Anderson M.D. RADIATION ONCOLOGY ORDERABLE S Performing Organization Address City/State/ZIP Code Phon e Number [facility] na documented in this encounter Visit Diagnoses Diagnosis Malignant Neoplasm Of Bladder (HCC) documented in this encounter Care Teams Horticultural Therapist Relationship Specialty Start Date End Date Elsewhere, Pcp PCP - General Internal Medicine 01/14/22 documented as of this encounter
--- OUTSIDE RECORDS SUMMARY | 2022-07-31 15:47 | XMS_ITS | Encounter Summary ---
:1935 Author Organization [facility] Address [address] [place] [address] Care Team Providers Name Role Phone Elsewhere, Pcp Primary Care Provider Unavailable Reason for Referral Outpatient (Routine) - Closed Specialty Diagnoses / Procedures Referred By Contact Refer red To Contact Radiation Oncology Diagnoses Malignant Neoplasm Of Bladder (HCC) Cori Reece M.D. [address] [address] Referral ID Status Reason Start Date Expiration Date Visits Requ ested Visits Authorized [id number] Closed 02/26/2022 02/26/2023 1 1 Reason for Visit Outpatient (Routine) - Closed Specialty Diagnoses / Procedures Referred By Contact Refer red To Contact Radiation Oncology Diagnoses Malignant Neoplasm Of Bladder (HCC) Cori Reece M.D. [address] [address] Referral ID Status Reason Start Date Expiration Date Visits Requ ested Visits Authorized [id number] Closed 02/26/2022 02/26/2023 1 1 Encounter Details Date Type Department Care Team Description 03/06/2022 Hospital Encounter Department of Manny Anderson Neoplasm Radiation Oncology Ashtyn Dubois Of Bladder (HCC) in [address] (Primary Dx) [place], [place] [address]21 [facility] [address] [place], [place] [phone] (Work) [phone] Social History Tobacco Use Types Packs/Day Years [...] you attend synagogue or Patient refused 2021 zoroastrian services? Do you belong to any clubs or No 05/17/2022 organizations such as synagogue groups, unions, [employer] or athletic groups, or school groups? 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 Manny Anderson Referring Provider: Cori Reece M.D. Primary Care Provider: Dr. Yamila English Home address: [address] [place] [phone] SUBJECTIVE History of present illness Mr. Henok [...] 01/24/2022 Other The patient presented to the [facility] ED with a chief complaint of [...] performed by Dr. Kurtis Bach at [facility] and demonstrated a large medial lobe of the prostate, 3 cm, with papillary bladder mass, 5 cm, the left bladder wall obstructing the left UO. The patient reported a history of gross hematuria for months and difficulty emptying his bladder. Discussed that the patient ideally would need TURBT and bilateral retrogrades. 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 02/08/2022 Other Urology consultation at [facility] with Dr. David Day who recommended proceeding [...] most questions and responses to his and ezycofoq-ov-uhw. He reports feeling fine but when prompted [...] as medically taking preference, but the patient's plxwyxes-wn-rck wished to hear from urology as to [...] or concerns. Dr. Manny Anderson is the commercial sales consultant; please see attestation for further details. [...] here today with his Miesha and his eyribvsh-xp-frr Patricia. He has a Villarreal catheter in [...] Manny Anderson M.D. 03/06/2022 11:36 PM CDT [facility] [address] [place] [address] documented in this encounter Miscellaneous Notes Addendum Note - Vicki Hector C.NTarun - 03/06/2022 9:00 AM CDT Encounter addended by: Vicki Hector C.NTarun on: 03/07/2022 7:09 AM Actions taken: Letter saved documented in this encounter Plan of Treatment Upcoming Encounters Date Type Specialty Care Team Description 08/20/2022 Appointment Radiology Claude Loaiza MPAS, P.A.-C. [address] [place] [address] [phone] (Octavio christensen) 08/20/2022 Appointment Radiology Claude Loaiza MPAS, P.A.-C. [address] [place] [address] [phone] (Octavio christensen) 08/22/2022 Virtual Visit Urology Gibran Ruvalcaba M.D. [address] [place] [address] [phone] (Octavio christensen) Scheduled Referrals Name Type Priority Associated Order Schedule Diagnoses Radiation Oncology Outpatient Referral Routine Malignant Neopl asm Once for 1 - Palliative / Of Bladder (HCC) Occurrenc es metastatic consult starting 03/06/2022 (clinic) until 2 documented as of this encounter Visit Diagnoses Diagnosis Malignant Neoplasm Of Bladder (HCC) - Pr imary documented in this encounter Care Teams Crossbar Frame Wirer Relationship Specialty Start Date End Date Elsewhere, Pcp PCP - General Internal Medicine 01/14/22 documented as of this encounter
--- OUTSIDE RECORDS SUMMARY | 2022-07-31 15:47 | XMS_ITS | Encounter Summary ---
:1935 Author Organization [facility] Address [address] [place] [address] Care Team Providers Name Role Phone Elsewhere, Pcp Primary Care Provider Unavailable Encounter Details Date Type Department Care Team Description 02/25/2022 Clinical Communication Department of Urology Provider, Unknown in [place], [place] [address] [place] [address] Social History Tobacco Use Types Packs/Day Years [...] you attend uatsdin or Patient refused 2021 jewish services? 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 documented in this encounter Plan of Treatment Upcoming Encounters Date Type Specialty Care Team Description 08/20/2022 Appointment Radiology Claude Loaiza MPAS, P.A.-C. [address] [place], [place] 55 [phone] (Wo rk) 08/20/2022 Appointment Radiology Claude Loaiza MPAS, P.A.-C. [address] [place] [address] [phone] (Wo rk) 08/22/2022 Virtual Visit Urology Gibran Ruvalcaba M.D. [address] [place] [address] [phone] (Wo rk) documented as of this encounter Visit Diagnoses Not on filedocumented in this encounter Care Teams Journeyman Molder Relationship Specialty Start Date End Date Elsewhere, Pcp PCP - General Internal Medicine 01/14/22 documented as of this encounter
--- OUTSIDE RECORDS SUMMARY | 2022-07-31 15:47 | XMS_ITS | Encounter Summary ---
:1935 Author Organization [facility] Address [address] [place] [address] Care Team Providers Name Role Phone Elsewhere, Pcp Primary Care Provider Unavailable Reason for Referral Outpatient (Routine) - Closed Specialty Diagnoses / Procedures Referred By Contact Refer red To Contact Urology Diagnoses Retention Urinary Nura David IV [place] Trupti Chamorro [address] [place] [address] Referral ID Status Reason Start Date Expiration Date Visits Requ ested Visits Authorized [id number] Closed 02/27/2022 02/27/2023 1 1 Scheduling Instructions PLEASE SCHEDULE WITH JACQUELINE OR PROVIDER WHO CAN DO REZUM CONSULTATION Reason for Visit Reason Comments Post-op Outpatient (Routine) - Closed Specialty Diagnoses / Procedures Referred By Contact Refer justen To Contact Urology Cori Reece M.D . [facility] [address] [place] [phone] Referral ID Status Reason Start Date Expiration Date Visits Requ ested Visits Authorized [id number] Closed 02/22/2022 02/22/2023 1 1 Encounter Details Date Type Department Care Team Description 02/27/2022 Office Visit Department of Urology Lamont Lakhani Urinary in [place] (Primary Dx) [address] [address] Social History Tobacco Use Types [...] or relatives? How often do you attend taoism or Patient refused 2021 nondenominational services? 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 - 02/27/2022 3:00 PM CDT Urology [facility] clinic note Subjective Mr. Chery is an [...] void bladder scan 579 cc. An 18 Moroccan coude catheter was replaced. On my visit with the patient, he is accompanied by his and zmifpfxh-bg-pwj. He reports overall doing fine. The primary question is what to regarding bladder drainage. Also had a question about some seemingly purulent drainage noted on catheter removal. He denies nausea, vomiting, fevers, chills. Objective On exam, patient is awake, alert, oriented, not in distress. There is an 18 Moroccan Villarreal catheter draining clear thin fruit punch [...] Appointment Radiology Claude Loaiza, GARCIA P.A.-C. [address] [place] [address] [phone] (Wo rk) 08/20/2022 Appointment Radiology Claude Loaiza MPAS P.A.-C. [address] [place] [address] [phone] (Wo rk) 08/22/2022 Virtual Visit Urology Gibran Ruvalcaba M.D. [address] [place] [address] [phone] (Wo rk) Scheduled Referrals Name Type Priority Associated Diagnoses [facility] - General - Outpatient Referral Routine Retention Urin anita Expected: urinary retention 02/27/2022 consult (clinic) (Approximat e), Expires: 05/30/2023 documented as of this encounter Visit Diagnoses Diagnosis Retention Urinary - Primary documented in this encounter Care Teams Death Claim Examiner Relationship Specialty Start Date End Date Elsewhere, Pcp PCP - General Internal Medicine 01/14/22 documented as of this encounter
--- OUTSIDE RECORDS SUMMARY | 2022-07-31 15:47 | XMS_ITS | Encounter Summary ---
:1935 Author Organization [facility] Address [address] [place] [address] Care Team Providers Name Role Phone Elsewhere, Pcp Primary Care Provider Unavailable Reason for Visit Reason Comments Treatment Questions Encounter Details Date Type Department Care Team Description 03/12/2022 Clinical Communication Department of [facility] in , Ashtyn Perdomo [place], [place] [address] [place] [phone] Social History Tobacco Use Types Packs/Day Years [...] you attend yazdanism or Patient refused 2021 jainism services? 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 - 03/12/2022 2:[address] Rosen is unfortunately completely booked as he is preparing for long term. Another OPC provider may be available sooner [...] procedure soon. Please contact them back at [phone] to discuss the plan with them. Thanks! documented in this encounter Plan of Treatment Upcoming Encounters Date Type Specialty Care Team Description 08/20/2022 Appointment Radiology Claude Loaiza MPAS, PJluisA.-C. [address] [place] [address] [phone] (Wo rk) 08/20/2022 Appointment Radiology Claude Loaiza MPAS PTarun-C. [address] [place] [address] [phone] (Wo rk) 08/22/2022 Virtual Visit Urology Gibran Ruvalcaba M.D. [address] [place], [place] 55 [phone] (Wo rk) documented as of this encounter Visit Diagnoses Not on filedocumented in this encounter Care Teams Rn Advice Relationship Specialty Start Date End Date Elsewhere, Pcp PCP - General Internal Medicine 01/14/22 documented as of this encounter
--- OUTSIDE RECORDS SUMMARY | 2022-07-31 15:47 | XMS_ITS | Encounter Summary ---
:1935 Author Organization [facility] Address [address] [place] [address] Care Team Providers Name Role Phone Elsewhere, Pcp Primary Care Provider Unavailable Encounter Details Date Type Department Care Team Description 02/26/2022 Orders Only Pharmacy Prior Auth [address] [phone] Social History Tobacco Use Types Packs/Day Years [...] you attend quaker or Patient refused 2021 gnosticism services? 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 [address] [place] [phone] (Wo rk) 08/20/2022 Appointment Radiology Claude Loaiza MPAS P.A.-C. [address] [place] [address] [phone] (Wo rk) 08/22/2022 Virtual Visit Urology Gibran Ruvalcaba M.D. [address] [place] [address] [phone] (Wo rk) documented as of this encounter Visit Diagnoses Not on filedocumented in this encounter Care Teams Enrollment Coordinator Relationship Specialty Start Date End Date Elsewhere, Pcp PCP - General Internal Medicine 01/14/22 documented as of this encounter
--- OUTSIDE RECORDS SUMMARY | 2022-07-31 15:47 | XMS_ITS | Encounter Summary ---
:1935 Author Organization [facility] Address [address] [place] [address] Care Team Providers Name Role Phone Elsewhere, Pcp Primary Care Provider Unavailable Encounter Details Date Type Department Care Team Description 03/21/2022 Hospital Encounter Department of Adrian David Urinary; Laboratory Medicine Mirlande Arias IV Neoplasm Of Bladder (HCC) and PathologyAshtyn [address] [place] [address], [address] [facility] [address] [place] [phone] [place] [address] (Work) [place], [place] [phone] (Fax) [phone] Social History Tobacco Use Types Packs/Day Years [...] or relatives? How often do you attend restorationism or Patient refused 2021 jain services? 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 [address] [place], [place] 55 [phone] (Wo rk) 08/20/2022 Appointment Radiology Claude Loaiza MPAS, PBe. [address] [place], [place] 55 [phone] (Wo rk) 08/22/2022 Virtual Visit Urology Gibran Ruvalcaba M.D. [address] [place], [place] 55 [phone] (Wo rk) documented as of this encounter Procedures Procedure Name Priority Date/Time Associated Comments Diagnosis OH OSMOLALITY ASSAY Routine 03/21/2022 12:08 Resu lts [...] (ABNORMAL) Dipstick, Urine (03/21/2022 12:08 PM CDT) [facility] gist Method Time Signature Hemoglobin, Large [...] M.D. LAB URINE ORDERABLES Performing Organization Address City/[facility]/ZIP Code Phon e Number [facility] - [address] Osmolality, Urine (03/21/2022 12:08 PM CDT) P athologist Signature Osmolality, U 429 150 - 1150 03/21/2022 DTL mOsm/kg 12:38 PM CDT Specimen Anatomical Collection Method Collection Time Receive d Time (Source) Location / / Volume Laterality Urine 03/21/2022 12:08 03/21/2022 PM CDT 12:08 PM CDT Nura David IV, M.D. LAB URINE ORDERABLES Performing Organization Address City/[facility]/ZIP Code Phon e Number [facility] - [address] pH, Random, Urine (03/21/2022 12:08 PM CDT) P athologist Signature pH, Random, U 6.7 4.5 - 8.0 03/21/2022 DTL 12:38 PM CDT Specimen Anatomical Collection Method Collection Time Receive d Time (Source) Location / / Volume Laterality Urine 03/21/2022 12:08 03/21/2022 PM CDT 12:08 PM CDT Nura David IV, M.D. LAB URINE ORDERABLES Performing Organization Address City/[facility]/ZIP Code Phon e Number [facility] - [address] (ABNORMAL) Microscopic Manual (03/21/2022 12:08 PM [...] Number [facility] - [address] [place] [address] [facility] [place] [address] Laboratories-[facility] [address] [facility] (ABNORMAL) Urinalysis with Microscopic: Urine, Midstream (03/21/2022 12:08 PM CDT) [facility] Method Time Signature Source Urine, Urine, 03/21/2022 DTL Midstream 12:08 PM CDT Color, U Yellow 03/21/2022 DTL 12:08 PM CDT Clarity, U Clear 03/21/2022 DTL 12:08 PM CDT Protein, U 433 (H) <26 mg/dL 03/21/2022 DTL 2:20 PM CDT Protein/Osmol 10.09 (H) <0.42 03/21/2022 DTL ality ratio 2:20 PM CDT Predicted 24 8526 mg/24 h 03/21/2022 DTL Hr Protein 2:20 PM CDT Predicted 2706-05813 mg/24 h 03/21/2022 DTL Range 2:20 PM CDT Specimen Anatomical Collection Method Collection Time Receive d Time (Source) Location / / Volume Laterality Urine (Urine, 03/21/2022 12:08 03/21/2022 Midstream) PM CDT 12:08 PM CDT Nura David IV, M.D. LAB URINE ORDERABLES Performing Organization Address City/State/ZIP Code Phon e Number [facility] - [address] [place], [place] [address] [facility] [place] [address] Laboratories-[facility] [address] documented in this encounter Visit Diagnoses Diagnosis Retention Urinary Malignant Neoplasm Of Bladder (HCC) documented in this encounter Care Teams Senior Research Consultant Relationship Specialty Start Date End Date Elsewhere, Pcp PCP - General Internal Medicine 01/14/22 documented as of this encounter
--- OUTSIDE RECORDS SUMMARY | 2022-07-31 15:47 | XMS_ITS | Encounter Summary ---
:1935 Author Organization [facility] Address [address] [place] [address] Care Team Providers Name Role Phone Elsewhere, Pcp Primary Care Provider Unavailable Encounter Details Date Type Department Care Team Description 02/26/2022 Clinical Communication Department of Urology Lisbeth Nguyen in [facility] [phone] [address] [facility] (Work) [place] [address] Social History Tobacco Use Types Packs/Day Years [...] you attend muslim or Patient refused 2021 islam services? 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 [address] [place] [address] [phone] (Wo rk) 08/20/2022 Appointment Radiology Claude Loaiza MPAS P.AJluis-C. [address] [place] [address] 55 [phone] (Wo rk) 08/22/2022 Virtual Visit Urology Gibran Ruvalcaba M.D. [address] [place] [address] [phone] (Wo rk) documented as of this encounter Visit Diagnoses Not on filedocumented in this encounter Care Teams Automobile Drivers Relationship Specialty Start Date End Date Elsewhere, Pcp PCP - General Internal Medicine 01/14/22 documented as of this encounter
--- OUTSIDE RECORDS SUMMARY | 2022-07-31 15:47 | XMS_ITS | Encounter Summary ---
:1935 Author Organization [facility] Address [address] [place] [address] Care Team Providers Name Role Phone Elsewhere, Pcp Primary Care Provider Unavailable Reason for Referral Outpatient (Routine) - Closed Specialty Diagnoses / Procedures Referred By Contact Refer red To Contact Radiology Diagnoses Malignant Neoplasm Of Bladder (HCC) Nura David IV [facility] Procedures IR Nephrostomy Tube Exchange Left M.D. [address] [place] [address] Referral ID Status Reason Start Date Expiration Date Visits Requ ested Visits Authorized [id number] Closed 02/22/2022 02/22/2023 1 1 Encounter Details Date Type Department Care Team Description 02/22/2022 Orders Only Department of Urology Nura David Malignant Neoplasm Of in [facility] Becky COBIAN M.D. Bladder (HCC) (Primary [place] 200 [facility] Dx) [address] [place] [phone] Social History Tobacco Use Types Packs/Day Years [...] No 05/17/2022 organizations such as jew groups, [employer], fraSoompi or athletic groups, or school groups? 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 [address] [place] [phone] (Octavio christensen) 08/20/2022 Appointment Radiology Claude Loaiza MPAS, P.A.-C. [address] [place] [address] [phone] (Octavio christensen) 08/22/2022 Virtual Visit Urology Gibran Ruvalcaba M.D. [address] [place] [address] [phone] (Octavio christensen) documented as of [...] 05/20/2022 5:48 PM CDT Routine exchange 10 Bahamian left percutaneous nephrostomy tube. Drain to gravity [...] lidoca ine used for local anesthesia. Fluoroscopic infectious disease physician image demonstrates unchanged position of the l eft 10 Bahamian percutaneous nephrostomy tube. Injection of contrast demonstrated a locking loop wit hin the markedly dilated left renal pelvis with high-grade narrowing at the left UPJ. Drain removed in its entirety over a guidewire and a new 10 Bahamian locking loop catheter advanced with lock ing [...] lidoca ine used for local anesthesia. Fluoroscopic infectious disease physician image demonstrates unchanged position of the l eft 10 Bahamian percutaneous nephrostomy tube. Injection of contrast demonstrated a locking loop wit hin the markedly dilated left renal pelvis with high-grade narrowing at the left UPJ. Drain removed in its entirety over a guidewire and a new 10 Bahamian locking loop catheter advanced with lock ing [...] blood loss: minimal.. IMPRESSION: Routine exchange 10 Bahamian left percutan eous nephrostomy tube. Drain to gravity bag drainage. Routine exchange in 10-12 week s. NR Nura David IV, M.D. G IR PROCEDURES documented in this encounter Visit Diagnoses Diagnosis Malignant Neoplasm Of Bladder (HCC) - Pr imary Malignant Neoplasm Of Bladder (HCC) documented in this encounter Care Teams Clerical Receptionist Relationship Specialty Start Date End Date Elsewhere, Pcp PCP - General Internal Medicine 01/14/22 documented as of this encounter
--- OUTSIDE RECORDS SUMMARY | 2022-07-31 15:47 | XMS_ITS | Encounter Summary ---
:1935 Author Organization [facility] Address [address] [place] [address] Care Team Providers Name Role Phone Elsewhere, Pcp Primary Care Provider Unavailable Reason for Referral Outpatient (Routine) - Closed Specialty Diagnoses / Procedures Referred By Contact Refer red To Contact Radiation Oncology Diagnoses Malignant Neoplasm Of Bladder (HCC) Cori Reece M.D. [facility] [address] [place] [phone] Referral ID Status Reason Start Date Expiration Date Visits Requ ested Visits Authorized [id number] Closed 02/26/2022 02/26/2023 1 1 Encounter Details Date Type Department Care Team Description 02/26/2022 Orders Only Department of Urology Cori Reece, Annamaria guzman Urinary (Primary Dx); in Ashtyn Batista Malignant Neoplasm Of Bladder (HCC) [place] [address] [facility] [address] [place] [phone] [phone] Social History Tobacco Use Types Packs/Day Years [...] you attend christian or Patient refused 2021 anabaptist services? Do you belong to any clubs or No 05/17/2022 organizations such as christian groups, unions, fraChairish or athletic groups, or school groups? 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 [address] [place] [address] [phone] (Octavio christensen) 08/20/2022 Appointment Radiology Claude Loaiza MPAS, P.A.-C. [address] [place] [address] [phone] (Octavio christensen) 08/22/2022 Virtual Visit Urology Gibran Ruvalcaba M.D. 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
--- OUTSIDE RECORDS SUMMARY | 2022-07-31 15:47 | XMS_ITS | Encounter Summary ---
:1935 Author Organization [facility] Address [address] [place] [address] Care Team Providers Name Role Phone Elsewhere, Pcp Primary Care Provider Unavailable Reason for Referral Outpatient (Routine) - Closed Specialty Diagnoses / Procedures Referred By Contact Refer red To Contact Diagnoses Benign Prostatic Hyperplasia Hypertrophy With Obstruction Flakita Bradshaw M.D. Procedures URO Urodynamic study (with flow) [address] [place] [phone] Referral ID Status Reason Start Date Expiration Date Visits Requ ested Visits Authorized [id number] Closed 03/21/2022 03/21/2023 1 1 Reason for Visit Outpatient (Routine) - Closed Specialty Diagnoses / Procedures Referred By Contact Refer justen To Contact Urology Diagnoses Retention Urinary Nura David IV [facility] Ashtyn [address] [place] [address] Referral ID Status Reason Start Date Expiration Date Visits Requ ested Visits Authorized [id number] Closed 02/27/2022 02/27/2023 1 1 Encounter Details Date Type Department Care Team Description 03/21/2022 Comprehensive Visit Department of Bassam Klein gn Prostatic Hyperplasia Hypertrophy With Obstruction (Primary Dx); Urology in S, M.D. Retention Urinary [place], [address] [place], [place] 200 [facility] [address] [place], [place] [phone] (Work) [phone] Social History Tobacco Use Types Packs/Day Years [...] you attend amish or Patient refused 2021 baptist services? 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 [address] [place] [address] CHIEF COMPLAINT Urinary retention Supervised by Dr. Klein HISTORY OF PRESENT ILLNESS Mr. Chery is a pleasant 86 y.o. male who presents today for evaluation of urinary retention. He is accompanied today by his and [id number]. For further details regarding his bladder cancer [...] urinary incontinence. He currently has a 16 Citizen [place] catheter in place. He denied any significant [...] Date/Time Bacterial Culture, Aerobic + Susc, Urine [[id number]] Collected: 02/27/22 1120 Lab Status: Final result Specimen: Urine, Indwelling Catheter Updated: 02/28/22 08 Urine Culture No growth after 1 day of incubation. SARS Coronavirus 2, PCR Rapid, V [[id number]] Collected: 02/20/22 1939 Lab Status: Final result [...] at the following links: For Healthcare Providers: https://www.fda.gov/media/225881/download For Patients: https://www.SecureWaters.gov/media/932026/download SARS Coronavirus 2, Source, Rapid Swab, Nasopharynx [...] per Echocardiography Contrast Administration Protocol Reference Document [id number]. Patient met an inclusion criterion and did [...] meet Mr. Chery, his , and his [id number] in clinic today for further discussion of [...] Radiology Claude Loaiza MPAS P.A.-C. [address] [place], [place] [phone] (Octavio christensen) 08/20/2022 Appointment Radiology Claude Loaiza MPAS P.A.-C. [address] [place] [address] [phone] (Octavio rk) 08/22/2022 Virtual Visit Urology Gibran Ruvalcaba M.D. [address] [place], [place] 55 [phone] (Octavio christensen) documented as [...] Obstruction documented in this encounter Care Teams Pocket Builder Relationship Specialty Start Date End Date Elsewhere, Pcp PCP - General Internal Medicine 01/14/22 documented as of this encounter
--- OUTSIDE RECORDS SUMMARY | 2022-07-31 15:47 | XMS_ITS | Encounter Summary ---
:1935 Author Organization [facility] Address [address] [place] [address] Care Team Providers Name Role Phone Elsewhere, Pcp Primary Care Provider Unavailable Reason for Visit Reason Comments Rx Prior Authorization MARTY DENIED TROSPIUM CHLORIDE 20 MG TAB Encounter Details Date Type Department Care Team Description 03/05/2022 Clinical Communication Pharmacy Prior Vladimir [facility] Rx Prior [phone] Authorization (MARTY DENIED TROSPIUM CHLORIDE 20 MG [...] or relatives? How often do you attend mandaen or Patient refused 2021 temple services? 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 [address] [place], [place] [phone] (Octavio christensen) 08/20/2022 Appointment Radiology Claude Loaiza MPAS, P.A.-C. [address] [place], [place] [phone] (Octavio christensen) 08/22/2022 Virtual Visit Urology Gibran Ruvalcaba M.D. [address] [place] [phone] (Octavio christensen) documented as of this encounter Visit Diagnoses Not on filedocumented in this encounter Care Teams Svp Digital Ad Sales Relationship Specialty Start Date End Date Elsewhere, Pcp PCP - General Internal Medicine 01/14/22 documented as of this encounter
--- OUTSIDE RECORDS SUMMARY | 2022-07-31 15:47 | XMS_ITS | Encounter Summary ---
:1935 Author Organization [facility] Address [address] [place] [address] Care Team Providers Name Role Phone Elsewhere, Pcp Primary Care Provider Unavailable Encounter Details Date Type Department Care Team Description 02/22/2022 Orders Only Department of Urology Chasidy Lakhani Neoplasm Of in [place], [facility] lonny Perdomo M.D. Bladder (HCC) (Primary [address] [place] [phone] Social History Tobacco Use Types Packs/Day Years [...] you attend quaker or Patient refused 2021 uatsdin services? 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 [address] [place] [address] [phone] (Wo rk) 08/22/2022 Virtual Visit Urology Gibran Ruvalcaba M.D. [address] [place] [phone] (Wo rk) documented as of this encounter Visit Diagnoses Diagnosis Malignant Neoplasm Of Bladder (HCC) - Pr imary documented in this encounter Care Teams Utilities Estimator And Drafter Relationship Specialty Start Date End Date Elsewhere, Pcp PCP - General Internal Medicine 01/14/22 documented as of this encounter
--- OUTSIDE RECORDS SUMMARY | 2022-07-31 15:47 | XMS_ITS | Encounter Summary ---
:1935 [address] [facility] Address [address] [place] [address] Care Team Providers Name Role Phone Elsewhere, Pcp Primary Care Provider Unavailable Reason for Referral Radiation Therapy (Routine) - Closed Specialty Diagnoses / Procedures Referred By Contact Refer red To Contact Diagnoses Malignant Neoplasm Of Bladder (HCC) Manny Anderson M.D. [facility] Procedures Initial Rad Onc Treatment Planning CT Simulation Initial Rad Onc Treatment Planning CT Simulation [address] [place] [phone] Referral ID Status Reason Start Date Expiration Date Visits Requ ested Visits Authorized [id number] Closed 03/05/2022 03/05/2023 1 1 Outpatient (Routine) - Authorized Specialty Diagnoses / Procedures Referred By Contact Refer red To Contact Social Work Manny Anderson M .D. [facility] [address] [place] [phone] Referral ID Status Reason Start Date Expiration Date Visits V isits Requested Authorized [id number] Authorized 03/05/2022 03/05/2023 6 6 Outpatient (Routine) - Authorized Specialty Diagnoses / Procedures Referred By Contact Refer red To Contact Radiation Oncology Manny Anderson M .D. [facility] [address] [place] [phone] Referral ID Status Reason Start Date Expiration Date Visits V isits Requested Authorized [id number] Authorized 03/05/2022 03/05/2023 10 10 Radiation Therapy (Routine) - Authorized Specialty Diagnoses / Procedures Referred By Contact Refer red To Contact Diagnoses Malignant Neoplasm Of Bladder (HCC) Manny Anderson M.D. [facility] Procedures Management Visit [address] [place], [place] [phone] Referral ID Status Reason Start Date Expiration Date Visits V isits Requested Authorized [id number] Authorized 03/05/2022 03/05/2023 10 10 Radiation Therapy (Routine) - Authorized Specialty Diagnoses / Procedures Referred By Contact Refer red To Contact Diagnoses Malignant Neoplasm Of Bladder (HCC) Manny Anderson M.D. [facility] Procedures Prior Auth Rad Tx [address] [place], [place] [address] Referral ID Status Reason Start Date Expiration Date Visits V isits Requested Authorized [id number] Authorized 03/05/2022 03/05/2023 1 1 Encounter Details Date Type Department Care Team Description 03/05/2022 Orders Only Department of Manny Anderson N eoplasm Of Radiation Oncology in Ashtyn Dubois Bladder (HCC) (Primary [place], [place] [address] [facility] Dx) [address] [place] [phone] Social History Tobacco Use Types Packs/Day [...] you attend restoration or Patient refused 2021 rastafari services? Do you belong to any clubs or No 05/17/2022 organizations such as restoration groups, unions, Hupu or athletic groups, or school groups? 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 [address] [place] [phone] (Octavio christensen) 08/20/2022 Appointment Radiology Claude Loaiza MPAS, P.A.-CJluis [address] [place] [phone] (Octavio christensen) 08/22/2022 Virtual Visit Urology Gibran Ruvalcaba M.D. [address] [place] [address] [phone] (Octavio christensen) Scheduled Orders Name [...] Time Received Time / Laterality Volume Narrative JUAN DIEGO LAZCANO - 03/26/2022 3:27 PM CDT Manasa Willett, RTT ? 03/26/2022 ??3:29 PM Initial Rad Onc Treatment Planning CT Si mulation Date/Time: 03/26/2022 3:27 PM Performed by: Manny Anderson M.D. Authorized by: Manny Anderson M.D. Manny Anderson M.D. RADIATION ONCOLOGY ORDERABLE S Performing Organization Address City/State/ZIP Code Phon e Number [facility] documented in this encounter Visit Diagnoses Diagnosis Malignant Neoplasm Of Bladder (HCC) - Pr imary Malignant Neoplasm Of Bladder (HCC) documented in this encounter Care Teams Grease Refining Supervisor Relationship Specialty Start Date End Date Elsewhere, Pcp PCP - General Internal Medicine 01/14/22 documented as of this encounter
--- OUTSIDE RECORDS SUMMARY | 2022-07-31 15:47 | XMS_ITS | Encounter Summary ---
:1935 Author Organization [facility] Address [address] [place] [address] Care Team Providers Name Role Phone Elsewhere, Pcp Primary Care Provider Unavailable Encounter Details Date Type Department Care Team Description 03/08/2022 Clinical Communication Department of Harrison Lennon, Radiation Oncology in [place], [facility]. [facility] [address] [place] [address] [address] [place] [phone] Social History Tobacco Use Types Packs/Day Years [...] you attend adventist or Patient refused 2021 faith services? 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 [address] [place] [phone] (Wo rk) 08/20/2022 Appointment Radiology Claude Loaiza MPAS, P.A.-C. [address] [place] [phone] (Wo rk) 08/22/2022 Virtual Visit Urology Gibran Ruvalcaba M.D. [address] [place] [phone] (Wo rk) documented as of this encounter Visit Diagnoses Not on filedocumented in this encounter Care Teams Cripple Chaser Relationship Specialty Start Date End Date Elsewhere, Pcp PCP - General Internal Medicine 01/14/22 documented as of this encounter
--- OUTSIDE RECORDS SUMMARY | 2022-07-31 15:47 | XMS_ITS | Encounter Summary ---
:1935 Author Organization [facility] Address [address] [place] [address] Care Team Providers Name Role Phone Elsewhere, Pcp Primary Care Provider Unavailable Encounter Details Date Type Department Care Team Description 03/21/2022 Hospital Encounter Department of Adrian David Urinary; Laboratory Medicine Mirlande Arias IV Neoplasm Of Bladder (HCC) and PathologyAshtyn [facility] in [address] [place] [phone] [place] [address] [place], [place] (Work) [phone] Social History Tobacco Use [...] you attend presybeterian or Patient refused 2021 sikh services? 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 [address] [place] [phone] (Wo rk) 08/20/2022 Appointment Radiology Claude Loaiza, GARCIA, PJluisAJluis-C. [address] [place], [place] [phone] (Wo rk) 08/22/2022 Virtual Visit Urology Gibran Ruvalcaba M.D. [address] [place], [place] [phone] (Wo rk) documented as of this encounter Visit Diagnoses Diagnosis Retention Urinary Malignant Neoplasm Of Bladder (HCC) documented in this encounter Care Teams Material Assistant Relationship Specialty Start Date End Date Elsewhere, Pcp PCP - General Internal Medicine 01/14/22 documented as of this encounter
--- OUTSIDE RECORDS SUMMARY | 2022-07-31 15:47 | XMS_ITS | Encounter Summary ---
:1935 Author Organization [facility] Address [address] [place] [address] Care Team Providers Name Role Phone Elsewhere, Pcp Primary Care Provider Unavailable Reason for Visit Reason Comments Urinary Retention UCO/VT Outpatient (Routine) - Closed Specialty Diagnoses / Procedures Referred By Contact Refer red To Contact Diagnoses Retention Urinary Cori Reece M.D. [facility] Procedures URO Urethral cath removal & voiding trial (UCO/VT) [address] [place] [phone] Referral ID Status Reason Start Date Expiration Date Visits Requ ested Visits Authorized [id number] Closed 02/22/2022 02/22/2023 1 1 Encounter Details Date Type Department Care Team Description 02/27/2022 Procedure visit Department of Urology Bao Reece M.D. [address] [place] [phone] Retention Urinary in [facility] Manasa Justice R.N. [address] [place] [phone] [place] [address] [phone] Social History Tobacco Use Types Packs/Day Years [...] you attend jainism or Patient refused 2021 mandaen services? Do you belong to any clubs or No 05/17/2022 organizations such as jainism groups, unions, fraWallarm or athletic groups, or school groups? 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 [address] [place] [address] [phone] (Wo rk) 08/20/2022 Appointment Radiology Claude Loaiza MPAS PBe. [address] [place] [address] [phone] (Wo rk) 08/22/2022 Virtual Visit Urology Gibran Ruvalcaba M.D. [address] [place] [address] [phone] (Wo rk) documented as of [...] (ABNORMAL) Dipstick, Urine (02/27/2022 11:20 AM CDT) [facility] gist Method Time Signature Hemoglobin, Large (A) [...] Organization Address City/State/ZIP Code Phon e Number [facility] - [address] [place] [address] [place] [address] [facility] pH, Urine (02/27/2022 11:20 AM CDT) athologist Signature pH, U 5.7 4.5 - 8.0 02/27/2022 12:07 DTL PM CDT Specimen Anatomical Collection Method Collection Time Receive d Time (Source) Location / / Volume Laterality Urine 02/27/2022 11:20 02/27/2022 AM CDT 11:29 AM CDT Conor Lakhani M.D. LAB URINE ORDERABLES Performing Organization Address City/State/ZIP Code Phon e Number [facility] - [address] [place], [place] [address] [place] [address] [facility] Osmolality, Urine (02/27/2022 11:20 AM CDT) P athologist Signature Osmolality, U 288 150 - 1150 02/27/2022 DTL mOsm/kg 12:07 PM CDT Specimen Anatomical Collection Method Collection Time Receive d Time (Source) Location / / Volume Laterality Urine 02/27/2022 11:20 02/27/2022 AM CDT 11:29 AM CDT Conor Lakhani M.D. LAB URINE ORDERABLES Performing Organization Address City/[facility] Phon e Number [facility] - [address] [place], [place] [address] [place] [address] Laboratories-[facility] [address] [facility] (ABNORMAL) Microscopic Automated (02/27/2022 11:20 [...] M.D. LAB URINE ORDERABLES Performing Organization Address City/[facility] Phon e Number [facility] - 200 [place], [place] [address] [place] [address] Laboratories-[facility] 200 [facility] Bacterial Culture, Aerobic + Susc, Urine (02/27/2022 11:20 AM CDT) [facility] [employer] Method Time Signature Urine Culture No growth 02/28/2022 DTL after 1 day 8:02 AM CDT of incubation. Specimen (Source) Anatomical Collection Method Collection Time Re ceived Time Location / / Volume Laterality Urine (Urine, 02/27/2022 11:20 02/27/2022 Indwelling AM CDT 12:10 PM CDT Catheter) Comment: Specimen Source Site: Urine Conor Gopalakrishna M.D. LAB MICROBIOLOGY - GENERAL O RDERABLES Performing Organization Address City/[facility] Phon e Number [facility] - [address] [place], [place] [address] [facility] [place] [address] Laboratories-[facility] [address] [facility] Urinalysis with Microscopic: Urine, Catheter (02/27/2022 11:20 AM CDT) [facility] gist Method Time Signature Source Urine, [...] M.D. LAB URINE ORDERABLES Performing Organization Address [facility] Phon e Number [facility] - [address] [place], [place] [address] [facility] [place] [address] Laboratories-[facility] [address] documented in this encounter Visit Diagnoses Diagnosis Retention Urinary documented in this encounter Care Teams Applications Support Specialist Relationship Specialty Start Date End Date Elsewhere, Pcp PCP - General Internal Medicine 01/14/22 documented as of this encounter
--- OUTSIDE RECORDS SUMMARY | 2022-07-31 15:48 | XMS_ITS | Encounter Summary ---
:1935 Author Organization [facility] Address [address] [place] [address] Care Team Providers Name Role Phone Elsewhere, Pcp Primary Care Provider Unavailable Encounter Details Date Type Department Care Team Description 01/14/2022 Documentation Division of Nephrology and Alicia Jeffrey Hypertension in [place], Ashtyn, Ph.D. [address] [place] [phone] (Wo rk) Social History Tobacco Use Types [...] you attend mandaeism or Patient refused 2021 jew services? 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 [address] [place] [address] [phone] (Wo rk) 08/20/2022 Appointment Radiology Claude Loaiza MPAS, P.A.-C. [address] [place] [address] [phone] (Wo rk) 08/22/2022 Virtual Visit Urology Gibran Ruvalcaba M.D. [address] [place] [address] [phone] (Wo rk) documented as of this encounter Visit Diagnoses Not on filedocumented in this encounter Care Teams Golf Club Weigher Relationship Specialty Start Date End Date Elsewhere, Pcp PCP - General Internal Medicine 01/14/22 documented as of this encounter
--- OUTSIDE RECORDS SUMMARY | 2022-07-31 15:48 | XMS_ITS | Encounter Summary ---
:1935 Author Organization [facility] Address [address] [place] [address] Care Team Providers Name Role Phone Elsewhere, Pcp Primary Care Provider Unavailable Encounter Details Date Type Department Care Team Description 02/07/2022 Hospital Encounter Department of Laboratory Calin Day, Mass Bladder Medicine in [place], Juan., B.Ch., [place] B.A.O. [address] [place] [phone] Social History Tobacco Use Types Packs/Day Years [...] you attend buddhism or Patient refused 2021 adventist services? 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 RN COMPLEX CARE documented as of this encounter Medications at [...] Appointment Radiology Claude Loaiza MPAS, P.A.-C. [address] [place] [address] [phone] (Wo rk) 08/20/2022 Appointment Radiology Claude Loaiza MPAS, P.A.-C. [address] [place] [address] [phone] (Octavio rk) 08/22/2022 Virtual Visit Urology Gibran Ruvalcaba M.D. [address] [place] [address] [phone] (Wo rk) documented as of this [...] Organization Address City/State/ZIP Code Phon e Number [facility]- [address] [place], [place] [address] [place] [address] [facility] [address] [place] (ABNORMAL) Basic Metabolic Panel (02/07/2022 9:26 AM [...] CDT eGFR-Black/Afri 72 >=60 02/07/2022 NPRG can Algerian mL/min/BSA 11:13 AM CDT Comment: ----ADDITIONAL INFORMATION---- [...] Organization Address City/State/ZIP Code Phon e Number [facility]- [address] [place], [place] [address] [place] [address] [place] [address] [facility] [address] Albumin (02/07/2022 [...] Organization Address City/State/ZIP Code Phon e Number [facility]- [address] [place], [place] [address] [address] [place] [facility] [address] [place] [address] (ABNORMAL) CBC with Differential, Blood (02/07/2022 9:26 AM CDT) [facility] Method Time Signature Hemoglobin 9.6 (L) 13.2 [...] Organization Address City/State/ZIP Code Phon e Number [facility]- [address] [place] [address] [place] [address] System [address] documented in this encounter Visit Diagnoses Diagnosis Mass Bladder documented in this encounter Care Teams Tannery Gummer Relationship Specialty Start Date End Date Elsewhere, Pcp PCP - General Internal Medicine 01/14/22 documented as of this encounter
--- OUTSIDE RECORDS SUMMARY | 2022-07-31 15:48 | XMS_ITS | Encounter Summary ---
:1935 Author Organization [facility] Address [address] [place] [address] Care Team Providers Name Role Phone Elsewhere, Pcp Primary Care Provider Unavailable Encounter Details Date Type Department Care Team Description 02/13/2022 Clinical Communication Department of Urology David Aguero in [place], Juan., B.Ch., [place] B.A.O. [address] [facility] [address] [place] [phone] Social History Tobacco Use Types Packs/Day Years [...] you attend yazidi or Patient refused 2021 buddhist services? 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 [address] [place], [place] [phone] (Octavio christensen) 08/20/2022 Appointment Radiology Claude Loaiza MPAS, P.A.-C. [address] [place], [place] [phone] (Octavio christensen) 08/22/2022 Virtual Visit Urology Gibran Ruvalcaba M.D. [address] [place], [place] [phone] (Wo rk) documented as of this encounter Results SARS Coronavirus-2 RNA, V Asymptomatic (02/15/2022 9:22 AM CDT) [facility] Method Time Signature SARS-CoV-2 Swab, 02/15/2022 [...] pe rformed using the Aptima SARS-CoV-2 assay ([employer] on the Catmojis tem under emergency use authorization (EUA) by the U.S. Food and Drug Administ ration. Fact sheets for this EUA assay can be fo und at the following links: For Healthcare Providers: https://www.fd a.gov/media/586267/download For Patients: https://www.fda.gov/media/ 772674/download Specimen Anatomical Collection Method Collection Time Receive d Time (Source) Location / / Volume Laterality Varies 02/15/2022 9:22 AM 3:08 (Nasopharynx) CDT PM CDT David Sevilla, B.Ch., B.A.O. LAB MICROBIOLOGY - GENERAL ORDERABLES Performing Organization Address City/State/ZIP Code Phon e Number [facility]- [address] [place] [address] [place] [address] [address] documented in this encounter Visit Diagnoses Diagnosis Hydronephrosis - Primary Mass Bladder documented in this encounter Care Teams Bow Maker Relationship Specialty Start Date End Date Elsewhere, Pcp PCP - General Internal Medicine 01/14/22 documented as of this encounter
--- OUTSIDE RECORDS SUMMARY | 2022-07-31 15:48 | XMS_ITS | Encounter Summary ---
:1935 Author Organization [facility] Address [address] [place] [address] Care Team Providers Name Role Phone Elsewhere, Pcp Primary Care Provider Unavailable Encounter Details Date Type Department Care Team Description 02/13/2022 Clinical Communication Department of Urology David Day in [place], Juan., B.Ch., [place] B.A.O. [address] [facility] [address] [place] [phone] Social History Tobacco Use Types Packs/Day Years [...] you attend mormon or Patient refused 2021 muslim services? 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 [address] [place] [address] [phone] (Wo rk) 08/20/2022 Appointment Radiology Claude Loaiza MPAS, P.A.-C. [address] [place] [address] [phone] (Wo rk) 08/22/2022 Virtual Visit Urology Gibran Ruvalcaba M.D. [address] [place] [address] [phone] (Wo rk) documented as of this encounter Visit Diagnoses Diagnosis Hydronephrosis - Primary documented in this encounter Care Teams Photography Assistant Relationship Specialty Start Date End Date Elsewhere, Pcp PCP - General Internal Medicine 01/14/22 documented as of this encounter
--- OUTSIDE RECORDS SUMMARY | 2022-07-31 15:48 | XMS_ITS | Encounter Summary ---
:[address] [facility] Address [address] [place] [address] Care Team Providers Name Role Phone Elsewhere, Pcp Primary Care Provider Unavailable Reason for Referral Outpatient (Routine) - Closed Specialty Diagnoses / Procedures Referred By Contact Refer red To Contact Urology Diagnoses Malignant Neoplasm Of Bladder (HCC) Slava Edwards M.D. [facility] [address] [place] [address] Referral ID Status Reason Start Date Expiration Date Visits Requ ested Visits Authorized [id number] Closed 01/30/2022 01/30/2023 1 1 Encounter Details Date Type Department Care Team Description 01/30/2022 Community [facility] Slava Edwards ignant Neoplasm Of AND MIRTHA Pena M.D. Bladder (HCC) [address] [place] [address] (Primary Dx) [place] [address] [place], [place] [phone] Social History Tobacco Use Types Packs/Day Years [...] you attend gnosticism or Patient refused 2021 shinto services? Do you belong to any clubs or No 05/17/2022 organizations such as gnosticism groups, unions, fraAllon Therapeutics or athletic groups, or school groups? 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 [address] [place] [address] [phone] (Octavio christensen) 08/20/2022 Appointment Radiology Claude Loaiza MPAS, P.A.-C. [address] [place] [address] [phone] (Octavio christensen) 08/22/2022 Virtual Visit Urology Gibran Ruvalcaba M.D. [address] [place] [address] [phone] (Octavio christensen) Scheduled Referrals Name Type Priority Associated Diagnoses Order S chedule Urology Referral Outpatient Referral Routine Malignant Neoplas m Of Expected: Bladder (HCC) 01/30/2022 (Approximate), Expires: 05/01/2023 documented as of this encounter Visit Diagnoses Diagnosis Malignant Neoplasm Of Bladder (HCC) - Pr imary documented in this encounter Care Teams Pad Assembler Relationship Specialty Start Date End Date Elsewhere, Pcp PCP - General Internal Medicine 01/14/22 documented as of this encounter
--- OUTSIDE RECORDS SUMMARY | 2022-07-31 15:48 | XMS_ITS | Encounter Summary ---
:1935 Author Organization [facility] Address [address] [place] [address] Care Team Providers Name Role Phone Elsewhere, Pcp Primary Care Provider Unavailable Reason for Referral Outpatient (Routine) - Closed Specialty Diagnoses / Procedures Referred By Contact Refer red To Contact Radiology Diagnoses Hydronephrosis David Day M.B., [facility] Procedures IR Nephrostomy Tube Placement Left B.ChJluis, B.A.O. 200 [place] [address] Referral ID Status Reason Start Date Expiration Date Visits Requ ested Visits Authorized [id number] Closed 02/12/2022 02/12/2023 1 1 Reason for Visit Outpatient (Routine) - Closed Specialty Diagnoses / Procedures Referred By Contact Refer red To Contact Radiology Diagnoses Hydronephrosis David Day M.B., [facility] Procedures IR Nephrostomy Tube Placement Left B.ChJluis, B.A.O. 200 [place], [place] [phone] Referral ID Status Reason Start Date Expiration Date Visits Requ ested Visits Authorized [id number] Closed 02/12/2022 02/12/2023 1 1 Encounter Details Date Type Department Care Team Description 02/18/2022 Hospital Encounter Department of [place] Day M.B., B.Tj., B.A.O. 200 [place] [phone] Hydronephrosis Radiology in Dannielle Gonsalves M.D. 200 [place] [phone] [place], [place] Saeid Stanton M.D. 200 [place] [phone] 1216 [place] [address] Social History Tobacco Use Types [...] you attend temple or Patient refused 2021 tenriism services? 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 - 02/18/2022 10:00 AM CDT PATIENT DISPOSITION Discharge to home. POST-PROCEDURE DIAGNOSIS Left hydronephrosis PROCEDURE PERFORMED AND DESCRIPTION 10 F Left nephrostomy tube placement PROCEDURE DETAILS See Radiology Report SPECIMENS REMOVED Urine sample sent for laboratory analysis FINDINGS As expected PRIMARY PROCEDURALIST Dr. Dannielle Gonsalves ([id number]) ASSISTANTS Dr. Stanton ([id number]) COMPLICATIONS None. DRAINS Left nephrostomy tube 10F [...] Appointment Radiology Claude Loaiza MPAS PJluisA.-CJluis [address] [place] [address] [phone] (Octavio christensen) 08/20/2022 Appointment Radiology Claude Loaiza MPAS, P.A.-C. [address] [place] [address] [phone] (Octavio christensen) 08/22/2022 Virtual Visit Urology Gibran Ruvalcaba M.D. [address] [place] [address] [phone] (Octavio christensen) documented as of [...] Fungal Culture, Routine (02/18/2022 10:42 AM CDT) [facility] Method Time Signature Fungal No growth 03/14/2022 DTL Culture, after 24 1:01 PM CDT Routine days of incubation. Specimen Anatomical Collection Method Collection Time Receive d Time (Source) Location / / Volume Laterality Fluid (Kidney, 02/18/2022 10:42 2 Left) AM CDT 12:34 PM CDT Comment: Specimen Source Site: Fluid Crow KennedyCh., B.A.O. LAB MICROBIOLOGY - GENERAL ORDERABLES Performing Organization Address City/[facility]/ZIP Code Phon e Number [facility] - 200 [place], [place] [address] [facility] [place] [address] Laboratories-[address] Bacterial Culture, Anaerobic + Susc (02/18/2022 10:42 AM CDT) [facility] Method Time Signature Bacterial No growth 03/04/2022 DTL Culture, after 14 11:37 AM CDT Anaerobic + days of Susc incubation. Specimen Anatomical Collection Method Collection Time Receive d Time (Source) Location / / Volume Laterality Fluid (Kidney, 02/18/2022 10:42 2 Left) AM CDT 12:34 PM CDT Comment: Specimen Source Site: Fluid David Sevilla B.Ch., B.A.O. LAB MICROBIOLOGY - GENERAL ORDERABLES Performing Organization Address City/[facility]/ZIP Code Phon e Number [facility] - 200 [place], [place] [address] [facility] [place] [address] Laboratories[address] Gram Stain (02/18/2022 10:42 AM CDT) [facility] Method Time Signature Gram Stain No organisms 02/18/2022 DTL seen. 2:40 PM CDT Specimen Anatomical Collection Method Collection Time Receive d Time (Source) Location / / Volume Laterality Fluid (Kidney, 02/18/2022 10:42 2 Left) AM CDT 12:34 PM CDT Comment: Specimen Source Site: Fluid Crow KennedyCh., B.A.O. LAB MICROBIOLOGY - GENERAL ORDERABLES Performing Organization Address City/[facility]/ZIP Code Phon e Number [facility] - [address] [place] [address] Bacterial Culture, Aerobic + Susc (02/18/2022 10:42 AM CDT) [facility] gist Method Time Signature Bacterial No [...] Organization Address City/State/ZIP Code Phon e Number [address] documented in this encounter Visit Diagnoses [...] (RAD) documented in this encounter Care Teams Bench Worker Apprentice Relationship Specialty Start Date End Date Elsewhere, Pcp PCP - General Internal Medicine 01/14/22 documented as of this encounter
--- OUTSIDE RECORDS SUMMARY | 2022-07-31 15:48 | XMS_ITS | Encounter Summary ---
:1935 Author Organization [facility] Address [address] [place] [address] Care Team Providers Name Role Phone Elsewhere, Pcp Primary Care Provider Unavailable Encounter Details Date Type Department Care Team Description 02/07/2022 Hospital Encounter Department of Laboratory Calin Day, Mass Bladder Medicine in [place], Juan., B.Ch., [place] B.A.O. [address] [place] [phone] Social History Tobacco Use Types Packs/Day Years [...] or relatives? How often do you attend evangelical or Patient refused 2021 religion services? 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 [address] [place] [address] [phone] (Wo rk) 08/20/2022 Appointment Radiology Claude Loaiza MPAS, P.A.-C. [address] [place] [address] [phone] (Octavio rk) 08/22/2022 Virtual Visit Urology Gibran Ruvalcaba M.D. [address] [place] [address] [phone] (Wo rk) documented as of this [...] logist Time Signature Urine Culture Mixed 02/08/2022 [facility] jonatan. (A) 11:51 AM CDT Specimen Anatomical Collection Method Collection Time Receive d Time (Source) Location / / Volume Laterality Urine (Urine, 02/07/2022 9:26 AM 02/08/20 3:07 Midstream) CDT PM CDT Comment: Specimen Source Site: Urine David Sevilla, B.Ch., B.A.O. LAB MICROBIOLOGY - GENERAL ORDERABLES Performing Organization Address City/State/ZIP Code Phon e Number [facility]- [address] [place] [address] [place] [address] (ABNORMAL) Urinalysis with Microscopic: Urine, Midstream [...] 8.0 02/07/2022 10:56 AM CDT NPCL Specific [place] 1.020 1.001 - 1.035 02/07/2022 10:56 AM [...] Organization Address City/State/ZIP Code Phon e Number [facility]- [address] [facility] [place] [address] [facility] [place] NPCL [facility] [place] [address] [facility] [address] [place] [address] [facility] [address] documented in this encounter Visit Diagnoses Diagnosis Mass Bladder documented in this encounter Care Teams Hospital Security Officer Relationship Specialty Start Date End Date Elsewhere, Pcp PCP - General Internal Medicine 01/14/22 documented as of this encounter
--- OUTSIDE RECORDS SUMMARY | 2022-07-31 15:48 | XMS_ITS | Encounter Summary ---
:1935 Author Organization [facility] Address [address] [place] [address] Care Team Providers Name Role Phone Elsewhere, Pcp Primary Care Provider Unavailable Reason for Referral MRI/CAT/PET Scan (Routine) - Closed Specialty Diagnoses / Procedures Referred By Contact Refer red To Contact Radiology Diagnoses Malignant Neoplasm Of Bladder (HCC) David Day M.B., [facility] Procedures CT Urogram without and with IV Contrast B.Ch., B.A.O. 200 [place] [address] Referral ID Status Reason Start Date Expiration Date Visits Requ ested Visits Authorized [id number] Closed 02/08/2022 02/08/2023 1 1 Reason for Visit Appointment Request (Routine) - Closed Specialty Diagnoses / Procedures Referred By Contact Refer red To Contact Urology Diagnoses Mass Bladder Referral ID Status Reason Start Date Expiration Date Visits Requ ested Visits Authorized [id number] Closed 01/30/2022 01/30/2023 1 1 Encounter Details Date Type Department Care Team Description 02/08/2022 Comprehensive Visit Department of David Day Neoplasm Urology in Roel Heredia, Of Bladder (HCC ) [place], [place] B.Ch., B.A.O. 200 [facility] 200 [place] [phone] [phone] Social History Tobacco Use Types Packs/Day Years [...] you attend islam or Patient refused 2021 oriental orthodox services? Do you belong to any clubs or No 05/17/2022 organizations such as islam groups, unions, [employer]ational Services Institute or athletic groups, or school groups? 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 On December [...] Radiology Claude Loaiza MPAS, P.A.-C. [address] [place] [address] [phone] (Octavio christensen) 08/20/2022 Appointment Radiology Claude Loaiza MPAS, P.A.-C. [address] [place] [address] [phone] (Octavio rk) 08/22/2022 Virtual Visit Urology Gibran Ruvalcaba M.D. [address] [place] [address] [phone] (Octavio chrisetnsen) documented as of this encounter Results CT [...] (HCC) documented in this encounter Care Teams Ski Edge Painter Relationship Specialty Start Date End Date Elsewhere, Pcp PCP - General Internal Medicine 01/14/22 documented as of this encounter
--- OUTSIDE RECORDS SUMMARY | 2022-07-31 15:48 | XMS_ITS | Encounter Summary ---
:1935 Author Organization [facility] Address [address] [place] [address] Care Team Providers Name Role Phone Elsewhere, Pcp Primary Care Provider Unavailable Encounter Details Date Type Department Care Team Description 02/15/2022 Hospital Encounter Department of David Day Hydron ephrosis; Laboratory Medicine in [place] Heredia, B.Ch., [facility] B.A.O [address] [facility] [address] [place] [phone] [phone] Social History Tobacco Use Types Packs/Day Years [...] you attend sikh or Patient refused 2021 yazidism services? 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 [address] [place] [address] [phone] (Octavio christensen) 08/20/2022 Appointment Radiology Claude Loaiza MPAS, P.A.-C. [address] [place], [place] [phone] (Octavio christensen) 08/22/2022 Virtual Visit Urology Gibran Ruvalcaba M.D. [address] [place], [place] [phone] (Wo rk) documented as of this encounter Procedures Procedure Name Priority Date/Time Associated Diagnosis Comme nts SARS CORONAVIRUS-2 Routine 02/15/2022 9:22 AM Hydronephr osis Results for this RNA, V CDT Mass Bladder procedure are i n the results section. documented in this encounter Results SARS Coronavirus-2 RNA, V Asymptomatic (02/15/2022 9:22 AM CDT) [facility] Method Time Signature SARS-CoV-2 Swab, 02/15/2022 [...] pe rformed using the Aptima SARS-CoV-2 assay ([employer] on the Targeted Growths tem under emergency use authorization (EUA) by the U.S. Food and Drug Administ ration. Fact sheets for this EUA assay can be fo und at the following links: For Healthcare Providers: https://www.fd a.gov/media/584064/download For Patients: https://www.fda.gov/media/ 153898/download Specimen Anatomical Collection Method Collection Time Receive d Time (Source) Location / / Volume Laterality Varies 02/15/2022 9:22 AM 3:08 (Nasopharynx) CDT PM CDT David Sevilla BChano., B.A.O. LAB MICROBIOLOGY - GENERAL ORDERABLES Performing Organization Address City/State/ZIP Code Phon e Number [facility]- [address] [place] [address] [facility] [place] [address] [address] documented in this encounter Visit Diagnoses Diagnosis Hydronephrosis Mass Bladder documented in this encounter Additional Health Concerns Infection Onset Date Last Indicated Resolved Time COVID19 Pending 02/15/2022 02/15/2022 02/15/2022 10:28 PM CDT documented as of this encounter Care Teams Rn Bone Marrow Transplant Relationship Specialty Start Date End Date Elsewhere, Pcp PCP - General Internal Medicine 01/14/22 documented as of this encounter
--- OUTSIDE RECORDS SUMMARY | 2022-07-31 15:48 | XMS_ITS | Encounter Summary ---
:1935 Author Organization [facility] Address [address] [place] [address] Care Team Providers Name Role Phone Elsewhere, Pcp Primary Care Provider Unavailable Reason for Visit Reason Comments Abnormal Lab Encounter Details Date Type Department Care Team Description 01/14/2022 Emergency [facility] Samanta Barfield Hema turia (Primary Dx) Emergency Department M.D. [address] [place] [address] [address] [place] [phone] Social History Tobacco Use Types Packs/Day Years [...] you attend caodaism or Patient refused 2021 sabianist services? 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 Patient had an angiogram last Friday without [...] follow up with his primary provider in [place] where he can continue to have the [...] Radiology Claude Loaiza MPAS, P.A.-C. [address] [place] [address] [phone] (Octavio rk) 08/20/2022 Appointment Radiology Claude Loaiza MPAS, P.A.-C. [address] [place] [address] [phone] (Octavio rk) 08/22/2022 Virtual Visit Urology Gibran Ruvalcaba M.D. [address] [place] [address] [phone] (Octavio rk) documented as of [...] MUSE QTC Interval 470 ms MUSE R Lyman -8 degrees MUSE T Wave Lyman 111 degrees MUSE Specimen Anatomical Collection Method [...] Organization Address City/State/ZIP Code Phon e Number [facility] - 200 [place], [place] [address] [facility] [place] [address] Laboratories-[facility] [address] (ABNORMAL) CBC with Differential, [...] M.D. LAB BLOOD ADD-ON Performing Organization Address City/[facility] Phon e Number [facility] - 200 [place], [place] [address] [facility] [place], [place] [phone] [place] [address] DHPM [place], [place] [phone] [place] [address] Lipase (01/14/2022 5:03 PM CDT) P athologist Signature Lipase, S 17 13 - 60 U/L 01/14/2022 6:03 DTL PM CDT Specimen Anatomical Collection Method Collection Time Receive d Time (Source) Location / / Volume Laterality Blood (Blood, 01/14/2022 5:03 PM 01/15/20 22 5:37 Venous) CDT PM CDT Samanta Barfield M.D. LAB BLOOD ADD-ON Performing Organization Address City/[facility] Phon e Number [facility] - 200 [place], [place] [address] [facility] D[facility] [place], [place] [phone] [place] [address] (ABNORMAL) Hepatic Function Panel (01/14/2022 5:03 PM [...] Organization Address City/State/ZIP Code Phon e Number [facility] - 200 [place], [place] [address] [facility] [place] [address] [facility] [address] [facility] (ABNORMAL) Basic Metabolic Panel (01/14/2022 5:03 [...] CDT eGFR-Black/Afric 79 >=60 01/14/2022 DTL an Venezuelan mL/min/BSA 6:09 PM CDT Comment: ----ADDITIONAL INFORMATION---- [...] Organization Address City/State/ZIP Code Phon e Number [facility] - 200 [place], [place] [address] [facility] [place] [address] [facility] 200 [facility] ECG 12 Lead (01/14/2022 4:25 PM CDT) P athologist Signature Ventricular Rate 69 BPM MUSE ECG/Min DE Interval 238 ms MUSE QRSD Interval 102 ms MUSE QT Interval 428 ms MUSE QTC Interval 459 ms MUSE P Lyman 65 degrees MUSE R Lyman -3 degrees MUSE T Wave Lyman 83 degrees MUSE Specimen Anatomical Collection Method [...] injection documented in this encounter Care Teams Ecotherapist Relationship Specialty Start Date End Date Elsewhere, Pcp PCP - General Internal Medicine 01/14/22 documented as of this encounter
--- OUTSIDE RECORDS SUMMARY | 2022-07-31 15:48 | XMS_ITS | Encounter Summary ---
:1935 Author Organization [facility] Address [address] [place] [address] Care Team Providers Name Role Phone Elsewhere, Pcp Primary Care Provider Unavailable Reason for Referral MRI/CAT/PET Scan (Routine) - Closed Specialty Diagnoses / Procedures Referred By Contact Refer red To Contact Radiology Diagnoses Malignant Neoplasm Of Bladder (HCC) David Day M.B., [facility] Procedures CT Urogram without and with IV Contrast B.Ch., B.A.O. 200 [place], [place] [phone] Referral ID Status Reason Start Date Expiration Date Visits Requ ested Visits Authorized [id number] Closed 02/08/2022 02/08/2023 1 1 Reason for Visit MRI/CAT/PET Scan (Routine) - Closed Specialty Diagnoses / Procedures Referred By Contact Refer red To Contact Radiology Diagnoses Malignant Neoplasm Of Bladder (HCC) David Day M.B., [facility] Procedures CT Urogram without and with IV Contrast B.Ch., B.A.O. [address] [place] [phone] Referral ID Status Reason Start Date Expiration Date Visits Requ ested Visits Authorized [id number] Closed 02/08/2022 02/08/2023 1 1 Encounter Details Date Type Department Care Team Description 02/11/2022 Hospital Encounter Department of Barb, David Malign ant Neoplasm Radiology, Juan Bridges., B.Ch., Of [facility] in B.A.O. [place], [place] 200 [facility] [address] [place] [phone] [phone] Social History Tobacco Use Types Packs/Day Years [...] you attend orthodox or Patient refused 2021 christianity services? 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 [address] [place] [phone] (Wo rk) 08/20/2022 Appointment Radiology Claude Loaiza MPAS, P.A.-C. [address] [place] [phone] (Wo rk) 08/22/2022 Virtual Visit Urology Gibran Ruvalcaba M.D. [address] [place] [phone] (Wo rk) documented as of [...] Orders documented in this encounter Care Teams Manager Enrollment Relationship Specialty Start Date End Date Elsewhere, Pcp PCP - General Internal Medicine 01/14/22 documented as of this encounter
--- OUTSIDE RECORDS SUMMARY | 2022-07-31 15:48 | XMS_ITS | Encounter Summary ---
:1935 Author Organization [facility] Address [address] [place] [address] Care Team Providers Name Role Phone Elsewhere, Pcp Primary Care Provider Unavailable Reason for Referral Medication Prior Authorization - Denied Specialty Diagnoses / Procedures Referred By Contact Refer red To Contact Nura David IV, M.D. [address] [place] [address] Referral ID Status Reason Start Date Expiration Date Visits Requ ested Visits Authorized [id number] Denied 1 1 Outpatient (Routine) - Closed Specialty Diagnoses / Procedures Referred By Contact Refer red To Contact Diagnoses Retention Urinary Cori Reece M.D. [facility] Procedures URO Urethral cath removal & voiding trial (UCO/VT) 200 [place] [address] Referral ID Status Reason Start Date Expiration Date Visits Requ ested Visits Authorized [id number] Closed 02/22/2022 02/22/2023 1 1 utpatient (Routine) - Closed Specialty Diagnoses / Procedures Referred By Contact Refer red To Contact Urology Cori Reece M.D . [facility] [address] [place] [address] Referral ID Status Reason Start Date Expiration Date Visits Requ ested Visits Authorized [id number] Closed 02/22/2022 02/22/2023 1 1 Scheduling Instructions [facility] Reason for Visit MRI/CAT/PET Scan (Routine) - Closed Specialty Diagnoses / Procedures Referred By Contact Refer red To Contact Radiology Diagnoses Mass Bladder David Day M.B., [facility] Procedures CT Abdomen and/or Pelvis Biopsy CT Biopsy Other B.Ch., B.A.O. [address] [place] [phone] Referral ID Status Reason Start Date Expiration Date Visits Requ ested Visits Authorized [id number] Closed 02/12/2022 02/12/2023 1 1 Encounter Details Date Type Department Care Team Description 02/18/2022 - Hospital Encounter [facility] Richmond Day M.B., B.Ch., B.A.O. 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 [address] [place] [phone] Mass Bladder; [facility], Sixth Floor [address] [place] [phone] Social History Tobacco Use Types Packs/Day Years [...] you attend mandaen or Patient refused 2021 judaism services? 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 Primary [...] hospital problems. * DISCHARGE DISPOSITION Home-Health Care [facility] [6] ACTIVE ISSUES REQUIRING FOLLOW UP - [facility] outpatient clinic visit on Tuesday 02/27 with [...] related to the procedure, please contact the [facility] squaring shear operator ([phone]) and ask to be connected to the non-vascular interventional radiology fellow die maker electronic AttachmentsThe following attachments cannot be sent through Care Everywhere. Sulfamethoxazole (By mouth) (Haitian)Trospium (By mouth) (Haitian)documented in this encounter Medications at Time of [...] for TURBT Please page Chief Urology at [phone] from 7 AM - 5 PM or at [phone] after hours with any questions/concerns. Cori Reece M.D. documented in this encounter Consult Notes Braden Gan M.D. - 02/21/2022 4:57 PM CDTAssociated Order(s): IP CONSULT TO CARDIOLOGY CARDIOLOGY CONSULT NOTE DEMOGRAPHIC INFORMATION Patient Name: Henok Chery Birthdate: 1935 Age: 86 y.o. Sex: male Address: [address] [place] [phone] CHIEF COMPLAINT/PURPOSE OF VISIT - Pre-operative evaluation [...] staffed with Dr. Louis. Please page the [facility] consult service in case of questions or concerns. Braden Gan M.D. 02/21/22 Damaris Gooden, RJluisN. - 02/21/2022 1:03 PM CDT Discharge Planning Assessment SUBJECTIVE Assessment Information Referral Source: driver operator Referral Reason: Discharge Planning Primary Language: Haitian Behavioral Scientist Services Used: No Person(s) present during interview: Person(s) Present During Interview: patient and Spouse - Yvette [place]- Ralph History of Present Illness #1 Malignant Neoplasm Of Bladder (HCC) Social History Marital Status: Finance/Insurance Primary insurance: MEDICARE A AND B Secondary insurance: [employer] Does the patient have any financial concerns? no benefits: No Advance Directives Advance Directives: N/A Advance Directives Status: N/A OBJECTIVE Baseline Functional Status Baseline Activities of Daily Living Dressing: Independent Feeding: Independent Bathing: Needs assistance Grooming: Independent Toileting: Independent Behavior: Appropriate Communication: Talks, Understands speaking, Understands Haitian Shopping: Needs assistance Transportation: Support from family Medication Management: Needs assistance Housekeeping: Needs assistance Meal Prep: Needs assistance Managing Finances: Needs assistance Assistive Devices: Walker - four wheeled, Scooter Services/Resources: Home health Agency Name: [facility] Services Provided: senior living, PT Baseline Services/Resources Primary care clinic and provider: ELSEWHERE, PCP Services/Resources: Home health Additional Resources: NA Anticipated Needs Functional Status: None Assistive Devices: Walker - four wheeled, Oxygen, Scooter, Tub/shower chair/bench Services/Resources: Home health Agency Name: [facility] Services Provided: senior living, PT Transportation Needs: Support from family Does the patient need discharge transport arranged?: No Anticipated Discharge Destination: Home-Health Care [facility] ASSESSMENT / PLAN Plan Assessment: The driver operator met with Henok Chery to discuss his current hospitalization and home going needs. The patient was accompanied by , Miesha. The patient's was a reliable historian. The role of driver operator was reviewed. The patient's reviewed his prior level of care and support system. The patient receives support from his and children. The patient's described his living environment as a home with bedroom and bathroom on same floor with level entry. Housekeeping, grocery shopping, meal prep, and other household responsibilities have previously been completed by patient's . driver operator discussed the patient's potential needs at dismissal [...] live together in a one-story home in [place], [place]. Patient'swife states patient utilizes a walker for longer distances but is able to mobilize independently within the home. Patient's states patient was receiving home healthcare prior to this hospital admission for PT once per week and half-way once per week. Patient's states patient is [...] Homecare and home oxygen is provided by [employer]. The patient's reports understanding that he will [...] dismissal will be provided by family--. 3. driver operator recommended reaching out to family, friends, and neighbors for assistance. 4. driver operator provided information regarding the dismissal process. 5. driver operator placed or requested the following hospital-based consult orders and/or referrals:None. 6. driver operator will continue to assess for homegoing needs with the interdisciplinary team. 7. driver operator encouraged the patient to reach out with any questions/concerns. Patient to discharge with home health care. Home Medical Care - Admitted Since 02/18/2022 Service Provider Selected Services Address Phone Fax Patient Preferred [facility] [address] [facility] [address] [phone] -- Contact: Intake NURSING: - Complete documentation in the Discharge Navigator including Nursing Report Info and Facility/NextLevel of Care Info - Call report and arrange for the patient???s first visit. - Send required packet of dismissal information with patient, including After Visit Summary and advance directive. PRIMARY SERVICE: - Please provide a non[place] home health order for resumption of previous [...] Selected Services Address Phone Fax Patient Preferred [facility] [address] [address] -- Contact: Intake Respiratory Equipment [...] RN, ENAN, MAGDALENAS, CCS, CRC Clinical Documentation Intake Manager Query created by: LAURA Iniguez, RN, CPN, [...] medicine question arises through his hospital course [phone]. Judy Schumacher MD MS Internal Medicine, PGY3 General Internal Medicine Consults [phone] Hospital Course - Nura David IV, M.D. [...] Radiology Claude Loaiza MPAS, P.A.-C. [address] [place] [phone] (Wo rk) 08/20/2022 Appointment Radiology Claude Loaiza MPAS, P.A.-C. [address] [place] [phone] (Wo rk) 08/22/2022 Virtual Visit Urology Gibran Ruvalcaba M.D. [address] [place] [phone] (Wo rk) Pending Results Name [...] Provider LAB POCT ORDERABLES-MANUAL Performing Organization Address City/[facility] Phon e Number POC [facility] [address] [place] [address] [place] [address] [place] [facility] [address] (ABNORMAL) Glucose, POCT [...] Provider LAB POCT ORDERABLES-MANUAL Performing Organization Address City/[facility] Phon e Number POC [facility] [address] [place] [address] [place] [address] [place] [facility] [address] Glucose, POCT (02/22/2022 [...] Provider LAB POCT ORDERABLES-MANUAL Performing Organization Address City/[facility] Phon e Number [facility] [address] [place] [address] [facility] [place] [address] [facility] [address] [facility] (ABNORMAL) CBC without Differential (02/22/2022 3:59 AM [...] City/State/ZIP Code Phon e Number [facility] - [address] [place], [place] [address] [facility] [place] [address] [facility] [address] [facility] (ABNORMAL) Basic Metabolic Panel (02/22/2022 3:59 AM [...] 02/22/2022 DTL Black/ mL/min/BSA 5:02 AM CDT Solomon Islander Comment: ----ADDITIONAL INFORMATION---- Estimated GFR calculated [...] City/State/ZIP Code Phon e Number [facility] - [address] [place], [place] [address] [facility] [place] [address] Laboratories-[facility] [address] Glucose, POCT (02/21/2022 9:39 [...] Provider LAB POCT ORDERABLES-MANUAL Performing Organization Address City/[facility] Phon e Number POC [facility] [address] [place] [address] [facility] [place] [address] [facility] 200 [facility] (ABNORMAL) Hemoglobin (02/21/2022 6:21 PM CDT) athologist Signature Hemoglobin 8.0 (L) 13.2 - 16.6 02/21/2022 DTL g/dL 6:38 PM CDT Specimen Anatomical Collection Method Collection Time Receive d Time (Source) Location / / Volume Laterality Blood (Blood, 02/21/2022 6:21 PM 02/22/20 6:32 Venous) CDT PM CDT Cori Reece M.D. LAB BLOOD ADD-ON Performing Organization Address City/[facility] Phon e Number [facility] - [address] [place], [place] [address] [facility] [place] [address] Laboratories-[facility] [address] (ABNORMAL) Glucose, POCT (02/21/2022 [...] Provider LAB POCT ORDERABLES-MANUAL Performing Organization Address City/[facility]/ZIP Code Phon e Number POC [facility] [address] [place] [address] [facility] [place] [address] [place] [facility] [address] [facility] [place] Urinary Bladder (02/21/2022 2:35 PM CDT) [...] M.D. LAB BLOOD ADD-ON Performing Organization Address City/[facility]/ZIP Code Phon e Number [facility] - 200 [place] [address] [facility] [place] [address] Laboratories-[facility] 200 [facility] (ABNORMAL) Glucose, POCT (02/21/2022 11:38 AM CDT) [...] Address City/State/ZIP Code Phon e Number POC [facility] 200 [place] [address] [facility] [place] [address] [place] [facility] 200 [facility] (TTE) 2D ECHO DOPPLER COLOR AND CONTRAST [...] per Echocardiography Contrast Administration Protocol Reference Document [id number]. Patient met an inclusion criterion and did [...] per Echocardiography Contrast Administration Protocol Reference Document [id number]. Patient met an inclusion criterion and did [...] (02/21/2022 8:58 AM CDT) Analysis Performed At [facility] Time Signature Glucose, POCT, 119 70 - [...] Address City/State/ZIP Code Phon e Number POC [facility] [address] [place] [address] [facility] [place] [address] [place] [facility] [address] (ABNORMAL) Basic [...] 02/21/2022 DTL Black/ mL/min/BSA 5:14 AM CDT Solomon Islander Comment: ----ADDITIONAL INFORMATION---- Estimated GFR calculated [...] M.D. LAB BLOOD ADD-ON Performing Organization Address City/[facility] Phon e Number [facility] - 200 [place], [place] [address] [facility] [place] [address] [facility] 200 [facility] (ABNORMAL) CBC without Differential (02/21/2022 3:46 AM CDT) [facility] Method Time Signature Hemoglobin 7.1 (L) [...] M.D. LAB BLOOD ADD-ON Performing Organization Address City/[facility] Phon e Number [facility] - 200 [place], [place] [address] [facility] [place] [id number] [place], [place] [address] 200 [facility] SARS Coronavirus 2, PCR Rapid, V (02/20/2022 7:39 PM CDT) [facility] gist Method Time Signature SARS CoV-2, Undetected Undetected 02/20/2022 [facility] PCR, Rapid, V 8:04 PM CDT Comment: ----ADDITIONAL INFORMATION---- This RT-PCR test was performed using the Simran SARS-CoV-2 and Influenza A/B Reagent assay from [employer], which has received Emergency Use Authori zation(EUA) by the U.S. Food and Drug Administration . Fact sheets for this Emergency Use Autho rization (EUA) assay can be found at the following link s: For Healthcare Providers: https://www.fda.gov/media/302108/downloa d For Patients: https://www.fda.gov/media/020561/downloa d SARS Coronavirus 2, Source, Rapid Swab, Nasopharynx 02/20/2022 7:39 PM CDT [facility] Comment: REVISED RESULTS Specimen Anatomical Collection Method Collection Time Receive d Time (Source) Location / / Volume Laterality Varies 02/20/2022 7:39 PM 7:39 CDT PM CDT Nura Davdi IV, M.D. LAB MICROBIOLOGY - GENERA L ORDERABLES Performing Organization Address City/State/ZIP Code Phon e Number [facility] - [address] [place] [address] [place] [address] [facility] 200 [facility] Glucose, POCT (02/20/2022 7:12 PM CDT) Analysis [...] LAB POCT ORDERABLES-MANUAL Performing Organization Address City/State/ZIP [facility] Phon e Number POC [facility] [address] [place] [address] [place] [address] [place] [facility] [address] [facility] (ABNORMAL) Glucose, POCT (02/20/2022 12:19 PM CDT) [...] Provider LAB POCT ORDERABLES-MANUAL Performing Organization Address [facility]/ZIP [facility] Phon e Number [facility] [address] [place] [address] [place] [address] [place] [facility] [address] [facility] Fibrinogen (02/20/2022 12:13 PM CDT) P athologist Signature Fibrinogen, P 287 200 - 393 02/20/2022 DTL mg/dL 1:24 PM CDT Specimen Anatomical Collection Method Collection Time Receive d Time (Source) Location / / Volume Laterality Blood (Blood, 02/20/2022 12:13 02/20/2022 Venous) PM CDT 12:42 PM CDT Nura David IV, M.D. LAB BLOOD ADD-ON Performing Organization Address City/State/ZIP Code Phon e Number [facility] - [address] [place] [address] [facility] [place] [address] [facility] [address] (ABNORMAL) Prothrombin Time (PT) [...] M.D. LAB BLOOD ADD-ON Performing Organization Address City/[facility] Phon e Number [facility] - 200 [place], [place] [address] [facility] [place] [address] (ABNORMAL) Hepatic Function Panel (02/20/2022 12:13 PM CDT) [facility] Method Time Signature Bilirubin, Total, S [...] M.D. LAB BLOOD ADD-ON Performing Organization Address City/[facility] Code Phon e Number [facility] - 200 [place], [place] [address] [place] [id number] [place] [address] 200 [facility] (ABNORMAL) Hemoglobin (02/20/2022 12:13 PM CDT) P athologist Signature Hemoglobin 8.8 (L) 13.2 - 16.6 02/20/2022 DTL g/dL 12:56 PM CDT Specimen Anatomical Collection Method Collection Time Receive d Time (Source) Location / / Volume Laterality Blood (Blood, 02/20/2022 12:13 02/20/2022 Venous) PM CDT 12:43 PM CDT Nura David IV, M.D. LAB BLOOD ADD-ON Performing Organization Address City/[facility] Code Phon e Number [facility] - [id number] [place] [address] 200 [facility] (ABNORMAL) Glucose, POCT (02/20/2022 9:23 AM CDT) [...] Provider LAB POCT ORDERABLES-MANUAL Performing Organization Address City/[facility] Phon e Number [facility] 200 [place] [address] [place] [address] [place] [facility] [address] [place] [address] (ABNORMAL) Basic Metabolic Panel (02/20/2022 3:30 AM [...] 02/20/2022 DTL Black/ mL/min/BSA 4:50 AM CDT [place] Islander Comment: ----ADDITIONAL INFORMATION---- Estimated GFR calculated [...] City/State/ZIP Code Phon e Number [facility] - [address] [place], [place] [address] [facility] [place] [address] Laboratories-[facility] [address] (ABNORMAL) CBC without Differential (02/20/2022 3:30 AM CDT) [facility] Method Time Signature Hemoglobin 8.1 (L) [...] M.D. LAB BLOOD ADD-ON Performing Organization Address City/State/[facility] Code Phon e Number [facility] - [address] [place], [place] [address] [facility] [place] [address] Laboratories-[facility] 200 [facility] Transfuse Red Blood Cells : (02/19/2022 9:29 [...] Provider LAB POCT ORDERABLES-MANUAL Performing Organization Address City/[facility]/ZIP Code Phon e Number POC [facility] [address] [place] [address] [facility] [place] [address] [place] [facility] [address] [facility] (ABNORMAL) Glucose, POCT (02/19/2022 5:10 PM CDT) [...] Provider LAB POCT ORDERABLES-MANUAL Performing Organization Address City/[facility] Phon e Number [facility] [address] [place] [address] [place] [address] [place] [facility] [address] [facility] (ABNORMAL) Hemoglobin (02/19/2022 3:33 PM CDT) P [...] Address City/State/ZIP Code Phon e Number [facility] - 200 [place], [place] [address] [facility] [place] [place] [address] [facility] 200 [facility] Type and Screen (with reflex Antibody ID) [...] BANK TEST ORDER RAFFY Performing Organization Address City/[facility]/ZIP [facility] Phon e Number [facility] - [address] [place], [place] [address] [facility] [place] [address] [facility] [address] (ABNORMAL) Glucose, POCT (02/19/2022 [...] Provider LAB POCT ORDERABLES-MANUAL Performing Organization Address City/[facility]/ZIP [facility] Phon e Number POC [facility] [address] [place] [address] [place] [address] [place] [facility] [address] (ABNORMAL) Hemoglobin (02/19/2022 9:34 AM CDT) P athologist Signature Hemoglobin 7.8 (L) 13.2 - 16.6 02/19/2022 DTL g/dL 11:01 AM CDT Specimen Anatomical Collection Method Collection Time Receive d Time (Source) Location / / Volume Laterality Blood (Blood, 02/19/2022 9:34 AM 02/20/20 22 Venous) CDT 10:00 AM CDT Nura David IV, M.D. LAB BLOOD ADD-ON Performing Organization Address City/[facility]/ZIP Code Phon e Number [facility] - 200 [place] [address] [facility] [place] [address] [facility] 200 [facility] (ABNORMAL) Glucose, POCT (02/19/2022 8:06 AM CDT) [...] Provider LAB POCT ORDERABLES-MANUAL Performing Organization Address [facility] Phon e Number POC [facility] 200 [place] [address] [place] [address] [place] [facility] 200 [facility] (ABNORMAL) CBC without Differential (02/19/2022 3:33 AM [...] City/State/ZIP Code Phon e Number [facility] - 200 [place], [place] [address] [facility] [place] [place] [address] Laboratories-[facility] [address] (ABNORMAL) Basic Metabolic Panel [...] 02/19/2022 DTL Black/ mL/min/BSA 4:30 AM CDT [place] Islander Comment: ----ADDITIONAL INFORMATION---- Estimated GFR calculated [...] M.D. LAB BLOOD ADD-ON Performing Organization Address City/[facility] [facility] Phon e Number [facility] - 200 [place], [place] [address] [facility] [place] [place] [address] [facility] 200 [facility] (ABNORMAL) Glucose, POCT (02/19/2022 1:44 AM CDT) [...] Provider LAB POCT ORDERABLES-MANUAL Performing Organization Address [facility] Phon e Number [facility] [address] [place] [address] [place] [address] [place] POC 200 [facility] (ABNORMAL) Glucose, POCT (02/18/2022 5:14 PM CDT) [...] Provider LAB POCT ORDERABLES-MANUAL Performing Organization Address City/[facility] Phon e Number POC [facility] [address] [place] [address] [place] [address] [place] [facility] [address] ECG 12 Lead (02/18/2022 1:25 PM CDT) P athologist Signature Ventricular Rate 69 BPM MUSE ECG/Min HI Interval 168 ms MUSE QRSD Interval 102 ms MUSE QT Interval 454 ms MUSE QTC Interval 486 ms MUSE P [place] 71 degrees MUSE R [place] -8 degrees MUSE T Wave [place] 97 degrees MUSE Specimen Anatomical Collection Method [...] Address City/State/ZIP Code Phon e Number POC [facility] [address] [place] [address] [place] [address] [facility] [address] Abdomen [...] Component Value Ref Test Analysis Performed At [facility] Herotainment Method Time Signature (A) 02/20/2022 DTL 3:00 [...] City/State/ZIP Code Phon e Number [facility] - [address] [place], [place] [address] [facility] [place] [address] [facility] [address] Glucose, POCT (02/18/2022 7:25 AM CDT) Analysis Performed At [facility] logis Time Signature Glucose, POCT, 112 70 - 140 02/18/2022 PCLX B mg/dL 12:58 PM CDT Site Capillary 02/18/2022 PCLX 12:58 PM CDT Specimen Anatomical Collection Method Collection Time Receive d Time (Source) Location / / Volume Laterality Blood 02/18/2022 7:25 AM 2 CDT 12:59 PM CDT Unknown Provider LAB POCT ORDERABLES-MANUAL Performing Organization Address City/State/ZIP Code Phon e Number POC [facility] [address] [place] [address] [facility] [place] [address] [place] P[facility] [address] documented in [...] (VALIUM) (COMPLETED) 0408 (Given - Provider: Kwesi oMrtensen R.N.) 2 mg, oral, Once, On Fri02/20/22 [...] Provider: Rolf Tobias)1151 (New Bag - Provider: Sraah Juan)2200 (New Bag - Provider: Morgan Mccloud) [...] documented as of this encounter Care Teams Forensics Analyst Relationship Specialty Start Date End Date Elsewhere, Pcp PCP - General Internal Medicine 01/14/22 documented as of this encounter
--- OUTSIDE RECORDS SUMMARY | 2022-07-31 15:48 | XMS_ITS | Encounter Summary ---
:1935 Author Organization [facility] Address [address] [place] [address] Care Team Providers Name Role Phone Elsewhere, Pcp Primary Care Provider Unavailable Encounter Details Date Type Department Care Team Description 02/08/2022 Ancillary Procedure Department of David Day Neoplasm Radiology in [place], Roel, B.Ch., Of Bladder ( HCC) [place], [place] B.A.O. [address] [facility] [address] [place] [phone] Social History Tobacco Use Types Packs/Day Years [...] you attend confucianist or Patient refused 2021 yazidi services? 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 [address] [place] [phone] (Wo rk) 08/20/2022 Appointment Radiology Claude Loaiza MPAS, P.A.-C. [address] [place] [address] [phone] (Wo rk) 08/22/2022 Virtual Visit Urology Gibran Ruvalcaba M.D. [address] [place] [address] [phone] (Wo rk) documented as of [...] (HCC) documented in this encounter Care Teams Rubber Thread Spooler Relationship Specialty Start Date End Date Elsewhere, Pcp PCP - General Internal Medicine 01/14/22 documented as of this encounter
--- OUTSIDE RECORDS SUMMARY | 2022-07-31 15:48 | XMS_ITS | Encounter Summary ---
:1935 Author Organization [facility] Address [address] [place] [address] Care Team Providers Name Role Phone Elsewhere, Pcp Primary Care Provider Unavailable Encounter Details Date Type Department Care Team Description 02/15/2022 Clinical Communication Department of Urology David Day in [place], Juan., B.Ch., [place] B.A.O. [address] [place] [address] [address] [place] [phone] Social History Tobacco Use Types Packs/Day Years [...] you attend buddhist or Patient refused 2021 latter day services? 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 - 02/15/2022 2:01 PM CDT Spoke with the daughter over the phone. Patient has seen his local perinatal nurse today and he clearedhim for general anesthesia. Informed the patient and his family that if he wants to have the procedure TURBT to be done here at [facility] he will still require to have clearance [...] for Friday. Desiree can be reached at [phone]. documented in this encounter Plan of Treatment Upcoming Encounters Date Type Specialty Care Team Description 08/20/2022 Appointment Radiology Kandler, ClaudeGARCIA Esquivel P.A.-C. [address] [place], [place] [phone] (Wo rk) 08/20/2022 Appointment Radiology Claude Loaiza MPAS, P.A.-C. [address] [place], [place] [phone] (Wo rk) 08/22/2022 Virtual Visit Urology Gibran Ruvalcaba M.D. [address] [place], [place] [phone] (Wo rk) documented as of this encounter Visit Diagnoses Diagnosis Hematuria - Primary documented in this encounter Additional Health Concerns Infection Onset Date Last Indicated Resolved Time COVID19 Pending 02/15/2022 02/15/2022 02/15/2022 10:28 PM CDT COVID19 Pending 02/20/2022 02/20/2022 02/20/2022 8:04 PM CDT documented as of this encounter Care Teams Mathematical Statistician Relationship Specialty Start Date End Date Elsewhere, Pcp PCP - General Internal Medicine 01/14/22 documented as of this encounter
--- OUTSIDE RECORDS SUMMARY | 2022-07-31 15:48 | XMS_ITS | Encounter Summary ---
:1935 Author Organization [facility] Address [address] [place] [address] Care Team Providers Name Role Phone Elsewhere, Pcp Primary Care Provider Unavailable Reason for Referral MRI/CAT/PET Scan (Routine) - Closed Specialty Diagnoses / Procedures Referred By Contact Refer red To Contact Radiology Diagnoses Mass Bladder Jeanna Aguero M.B., [facility] Procedures CT Abdomen and/or Pelvis Biopsy CT Biopsy Other B.Ch., B.A.O. 200 [place] [address] Referral ID Status Reason Start Date Expiration Date Visits Requ ested Visits Authorized [id number] Closed 02/12/2022 02/12/2023 1 1 utpatient (Routine) - Closed Specialty Diagnoses / Procedures Referred By Contact Refer red To Contact Radiology Diagnoses Hydronephrosis Jeanna Aguero M.B., [facility] Procedures IR Nephrostomy Tube Placement Left B.Ch., B.A.O. [address] [place] [phone] Referral ID Status Reason Start Date Expiration Date Visits Requ ested Visits Authorized [id number] Closed 02/12/2022 02/12/2023 1 1 Encounter Details Date Type Department Care Team Description 02/12/2022 Clinical Communication Department of Urology Jeanna Aguero in [place], B.Tj., [place] B.A.O. [address] [facility] [address] [place] [phone] Social History Tobacco Use Types Packs/Day Years [...] you attend jainism or Patient refused 2021 scientology services? 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 At this t [facility], we would recommend patient have a nephrostomy [...] appointments to be done locally by his fire truck driver this week. They are aware that if [...] if possible. Their best callback number is: [phone] Thank you! documented in this encounter Plan of Treatment Upcoming Encounters Date Type Specialty Care Team Description 08/20/2022 Appointment Radiology Claude Loaiza MPAS, P.A.-CJluis [address] [place] [address] [phone] (Wo rk) 08/20/2022 Appointment Radiology Claude Loaiza MPAS, P.A.-Aram. [address] [place] [address] [phone] (Wo rk) 08/22/2022 Virtual Visit Urology Gibran Ruvalcaba M.D. [address] [place] [address] [phone] (Wo rk) documented as of [...] Urinary documented in this encounter Care Teams Television Tube Inspector Relationship Specialty Start Date End Date Elsewhere, Pcp PCP - General Internal Medicine 01/14/22 documented as of this encounter
--- OUTSIDE RECORDS SUMMARY | 2022-07-31 15:48 | XMS_ITS | Encounter Summary ---
:1935 Author Organization [facility] Address [address] [place] [address] Care Team Providers Name Role Phone Elsewhere, Pcp Primary Care Provider Unavailable Encounter Details Date Type Department Care Team Description 02/14/2022 Clinical Communication Department of Urology Lisbeth Nguyen in [facility] [phone] [address] [facility] (Work) [place] [address] Social History Tobacco Use Types Packs/Day Years [...] you attend evangelical or Patient refused 2021 yazdanism services? 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 [address] [place] [phone] (Wo rk) 08/20/2022 Appointment Radiology Claude Loaiza MPAS P.AJlusi-C. [address] [place] [phone] (Wo rk) 08/22/2022 Virtual Visit Urology Gibran Ruvalcaba M.D. [address] [place] [phone] (Wo rk) documented as of this encounter Visit Diagnoses Not on filedocumented in this encounter Care Teams Master Merchandiser Relationship Specialty Start Date End Date Elsewhere, Pcp PCP - General Internal Medicine 01/14/22 documented as of this encounter
--- OUTSIDE RECORDS SUMMARY | 2022-07-31 15:48 | XMS_ITS | Encounter Summary ---
:1935 Author Organization [facility] Address [address] [place] [address] Care Team Providers Name Role Phone Elsewhere, Pcp Primary Care Provider Unavailable Reason for Visit Reason Comments Triage Encounter Details Date Type Department Care Team Description 02/15/2022 Clinical Communication Department of Stick Inserter, [facility] Cardiovascular Medicine Ashtyn Kumar in [facility] lonny [address] [place] [phone] Social History Tobacco Use Types Packs/Day [...] you attend spiritism or Patient refused 2021 presybeterian services? 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 Internal/external: URO surg, [place], [id number] ?? Goal or summary: Schedule in CV ?? Requested date: February ?? Additional comments: Please Review documented in this encounter Plan of Treatment Upcoming Encounters Date Type Specialty Care Team Description 08/20/2022 Appointment Radiology Claude Loaiza MPAS, P.A.-C. [address] [place] [phone] (Wo rk) 08/20/2022 Appointment Radiology Claude Loaiza MPAS, P.A.-C. [address] [place] [address] [phone] (Wo rk) 08/22/2022 Virtual Visit Urology Gibran Ruvalcaba M.D. [address] [place] [address] [phone] (Wo rk) documented as of this encounter Visit Diagnoses Not on filedocumented in this encounter Additional Health Concerns Infection Onset Date Last Indicated Resolved Time COVID19 Pending 02/15/2022 02/15/2022 02/15/2022 10:28 PM CDT COVID19 Pending 02/20/2022 02/20/2022 02/20/2022 8:04 PM CDT documented as of this encounter Care Teams Loin Puller Relationship Specialty Start Date End Date Elsewhere, Pcp PCP - General Internal Medicine 01/14/22 documented as of this encounter
--- OUTSIDE RECORDS SUMMARY | 2022-07-31 15:48 | XMS_ITS | Encounter Summary ---
:1935 Author Organization [facility] Address [address] [place] [address] Care Team Providers Name Role Phone Elsewhere, Pcp Primary Care Provider Unavailable Encounter Details Date Type Department Care Team Description 01/30/2022 Clinical Communication Department of Urology David Day in [place], Juan., B.Ch., [place] B.A.O. 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 [address] [place] [address] [phone] (Wo rk) 08/20/2022 Appointment Radiology Claude Loaiza MPAS, P.A.-C. [address] [place] [address] [phone] (Wo rk) 08/22/2022 Virtual Visit Urology Gibran Ruvalcaba M.D. [address] [place] [address] [phone] (Wo rk) documented as of [...] Organization Address City/State/ZIP Code Phon e Number [facility]- [address] [place], [place] [address] [place] [address] [facility] [address] (ABNORMAL) [...] CDT eGFR-Black/Afri 72 >=60 02/07/2022 NPRG can [place] mL/min/BSA 11:13 AM CDT Comment: ----ADDITIONAL INFORMATION---- [...] Organization Address City/State/ZIP Code Phon e Number [facility]- [address] [place], [place] [address] [place] [address] [place] [address] Albumin (02/07/2022 9:26 AM CDT) P athologist Signature Albumin, P 3.9 3.5 - 5.0 02/07/2022 NPRG g/dL 11:13 AM CDT Specimen Anatomical Collection Method Collection Time Receive d Time (Source) Location / / Volume Laterality Blood (Blood, 02/07/2022 9:26 AM 02/08/20 22 Venous) CDT 10:21 AM CDT David Sevilla, B.Ch., B.A.O. LAB BLOOD ADD-ON Performing Organization Address City/State/ZIP Code Phon e Number [facility]- [address] [place] [address] [facility] [place] [address] (ABNORMAL) CBC with Differential, Blood (02/07/2022 [...] Organization Address City/State/ZIP Code Phon e Number [facility]- [address] [place] [address] [place] [address] System in [place] 10[address] [facility] documented in this encounter Visit Diagnoses Diagnosis Mass Bladder - Primary documented in this encounter Care Teams Collection Development Librarian Relationship Specialty Start Date End Date Elsewhere, Pcp PCP - General Internal Medicine 01/14/22 documented as of this encounter
--- OUTSIDE RECORDS SUMMARY | 2022-07-31 15:49 | XMS_ITS | Encounter Summary ---
:1935 Author Organization [facility] Address [address] [place] [address] Care Team Providers Name Role Phone Unavailable Primary Care Provider Unavailable Reason for Visit Reason Comments Skin Check Encounter Details Date Type Department Care Team Description 06/02/2018 Office Visit Department of Aashish Pandey, Keratosis Actinic (Primary Dx); Dermatology in [place] Nevi Multiple; [place], [place] [address] [facility] Keratosis Seborrheic; [address] [place] [address] Cancer Skin Squamous [place] [phone] Social History Tobacco Use Types Packs/Day Years [...] you attend baptism or Patient refused 2021 caodaism services? 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 Hare. 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 The squamous cell carcinoma involving his left cheek was treated initially with CO2 laser in [place] and then Mohs surgery thereafter. 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 Today he has one [...] dorsum all treated with Mohs surgery at [facility] in October 2017 PHYSICAL EXAM General: Awake, [...] Appointment Radiology Claude Loaiza MPAS, P.A.-C. 200 [place], [place] [phone] (Wo rk) 08/20/2022 Appointment Radiology Claude Loaiza MPAS, P.A.-C. [address] [place], [place] [address] [phone] (Wo rk) 08/22/2022 Virtual Visit Urology Gibran Ruvalcaba M.D. 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
--- OUTSIDE RECORDS SUMMARY | 2022-07-31 15:49 | XMS_ITS | Encounter Summary ---
:1935 Author Organization [facility] Address [address] [place] [address] Care Team Providers Name Role Phone Unavailable Primary Care Provider Unavailable Reason for Visit Reason Comments Biopsy Encounter Details Date Type Department Care Team Description 05/25/2019 Procedure visit Department of Aashish Pandey Tumor Skin Uncertain Behavior (Primary Dx); Dermatology in [place] M.D. Keratosis Actinic; [place], [place] [address] [facility] Keratosis Seborrheic Inflamed [address] [place] [phone] Social History Tobacco Use Types Packs/Day Years [...] you attend pentecostal or Patient refused 2021 buddhist services? 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 SOCIAL SERVICES documented as of this encounter Progress Notes [...] dorsum all treated with Mohs surgery at [facility] on 10/27/17. The largest of his squamous cell carcinomas involving his left cheek was initially treated with CO2 laser in [place] and then Mohs surgery thereafter. 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 [...] status post Mohs surgery by Dr. Hare??at [facility] on 10/27/17 2. Squamous cell carcinoma [...] infraorbital x2, left ear helix x1, left scientologist x1, left upper cheek x2, right nasal [...] the patient by letter. Patient given pamphlet [id number]. Discussed the risks, benefits, alternatives, and the necessity of other members of the healthcare team participating in the procedure. All questions answered and consent given. #2 Left preauricular: Rule out basal cell carcinoma versus green chain worker's papule We recommend a shave biopsy of [...] the patient by letter. Patient given pamphlet [id number]. Discussed the risks, benefits, alternatives, and the [...] a total of 14 lesion(s) with two 93-68-tojjsp freeze-thaw cycles of liquid nitrogen cryoth erapy. [...] a total of 1 lesion(s) with two 48-29-xymnwl freeze-thaw cycles of liquid nitrogen cryotherapy. The [...] transected. I have recommended Mohs surgery at [facility]. Patient is very adamant about not going down to [facility] and would like me to treat these lesions. I discussed with him that the optimal treatment is the Mohs surgery and he understands but does not want to go havethis done. Subsequently, he will return to [place] where we will do further shave biopsies [...] surgery at this time. An appointment for [facility] was placed today. documented in this encounter Plan of Treatment Upcoming Encounters Date Type Specialty Care Team Description 08/20/2022 Appointment Radiology Claude Loaiza MPAS, P.A.-C. [address] [place] [phone] (Wo rk) 08/20/2022 Appointment Radiology Claude Loaiza MPAS, P.A.-C. [address] [place] [phone] (Wo rk) 08/22/2022 Virtual Visit Urology Gibran Ruvalcaba M.D. [address] [place] [phone] (Wo rk) documented as of [...] is a 0.5 x 0.4 cm pale rtm-cjicyu-tdaxh, slightly raised, firm lesion with irregular borders [...] Code Phon e Number [facility] - [address] documented in this encounter Visit Diagnoses [...]
--- OUTSIDE RECORDS SUMMARY | 2022-07-31 15:49 | XMS_ITS | Encounter Summary ---
:1935 Author Organization [facility] Address [address] [place] [address] Care Team Providers Name Role Phone Unavailable [...] you attend mormonism or Patient refused 2021 bahai services? 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 [address] [place] [phone] (Wo rk) 08/20/2022 Appointment Radiology Claude Loaiza MPAS, P.A.-C. [address] [place] [address] [phone] (Wo rk) 08/22/2022 Virtual Visit Urology Gibran Ruvalcaba M.D. [address] [place], [place] [phone] (Wo rk) documented as [...]
--- OUTSIDE RECORDS SUMMARY | 2022-07-31 15:49 | XMS_ITS | Encounter Summary ---
:1935 Author Organization [facility] Address [address] [place] [address] Care Team Providers Name Role Phone Unavailable Primary Care Provider Unavailable Encounter Details Date Type Department Care Team Description 07/31/2020 Clinical Communication Department of Aashish Pandey, Dermatology in [place], [place] [address] [place] [phone] Social History Tobacco Use Types Packs/Day Years [...] or relatives? How often do you attend yarsani or Patient refused 2021 baptist services? 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 [place]: [phone] [place]: [phone] [place]: [phone] [place]: [phone] [place]: [phone] [place]: [phone] [facility] [place]: [phone] Andres Laurent [place], [place], [facility]: [phone] [place]:[phone] [place]: [phone] Thank you for trusting your health care to [facility]. documented in this encounter Plan of Treatment Upcoming Encounters Date Type Specialty Care Team Description 08/20/2022 Appointment Radiology Claude Loaiza MPAS, P.A.-C. [address] [place] [address] [phone] (Octavio christensen) 08/20/2022 Appointment Radiology Claude Loaiza MPAS, P.A.-C. [address] [place] [address] [phone] (Octavio christensen) 08/22/2022 Virtual Visit Urology Gibran Ruvalcaba M.D. [address] [place] [address] [phone] (Wo rk) documented as of this encounter Visit Diagnoses Not on filedocumented in this encounter
--- OUTSIDE RECORDS SUMMARY | 2022-07-31 15:49 | XMS_ITS | Encounter Summary ---
:1935 Author Organization [facility] Address [address] [place] [address] Care Team Providers Name Role Phone Unavailable Primary Care Provider Unavailable Reason for Referral Outpatient (Routine) - Closed Specialty Diagnoses / Procedures Referred By Contact Refer red To Contact Dermatology Aashish Pandey M.D . [facility] Region [address] [place] [address] Referral ID Status Reason Start Date Expiration Date Visits Requ ested Visits Authorized [id number] Closed 08/03/2019 08/02/2020 1 1 Reason for Visit Reason Comments Follow-up Appointment Request (Routine) - Closed Specialty Diagnoses / Procedures Referred By Contact Refer red To Contact Dermatology Referral ID Status Reason Start Date Expiration Date Visits Requ ested Visits Authorized [id number] Closed 05/25/2019 05/24/2020 1 Encounter Details Date Type Department Care Team Description 08/03/2019 Office Visit Department of Aashish Pandey, Keratosis Actinic (Primary Dx); Dermatology in [place] Cancer Skin Squamous Cell Personal Histo [place], [place] [address] [place] [phone] Social History Tobacco Use Types Packs/Day Years [...] you attend advent or Patient refused 2021 holiness services? Do you belong to any clubs or No 05/17/2022 organizations such as advent groups, unions, fraLogicLoop or athletic groups, or school groups? 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 Juarez at [facility]. 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 The largest of his squamous cell carcinomas involving his left cheek was initially treated with CO2 laser in [place] and then Mohs surgery thereafter. 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 Hare. MEDICAL HISTORY 1. 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 Hare??at [facility] on 10/27/17 2. Squamous cell carcinoma [...] surgery on 07/27/[address] Juarez at [facility] OBJECTIVE PHYSICAL EXAMINATION General: Awake, alert, [...] a total of 29 lesion(s) with two 33-31-xisqox freeze-thaw cycles of liquid nitrogen cryoth erapy. [...] surgery on 07/27/[address] Juarez at [facility] No clinical evidence of local recurrence [...] Electronically Signed: cookie Kelly. 08/03/2019. 8:14 AM. IAsahish M.D., personally performed the services described in [...] Radiology Claude Loaiza MPAS, P.A.-C. [address] [place], [place] [phone] (Wo rk) 08/20/2022 Appointment Radiology Claude Loaiza MPAS, P.AJluis-Aram. [address] [place], [place] [phone] (Wo rk) 08/22/2022 Virtual Visit Urology Gibran Ruvalcaba M.D. [address] [place], [place] [phone] (Wo rk) Scheduled Referrals Name Type Priority Associated Order Schedule Diagnoses Dermatology office Outpatient Referral Routine Ex pected: visit (clinic) 08/03/2019 (Approximate), Expires: 08/03/2022 documented as of this encounter Visit Diagnoses Diagnosis Keratosis Actinic - Primary Cancer Skin Squamous Cell Personal Histo ry documented in this encounter
--- OUTSIDE RECORDS SUMMARY | 2022-07-31 15:49 | XMS_ITS | Encounter Summary ---
:1935 Author Organization [facility] Address [address] [place] [address] Care Team Providers Name Role Phone Unavailable Primary Care Provider Unavailable Reason for Visit Appointment Request (Routine) - Closed Specialty Diagnoses / Procedures Referred By Contact Refer red To Contact Procedures Aashish Pandey M.D. [facility] 1-[address] sites [address] [place] [phone] Referral ID Status Reason Start Date Expiration Date Visits Requ ested Visits Authorized [id number] Closed 07/12/2019 07/11/2020 1 Encounter Details Date Type Department Care Team Description 07/27/2019 Procedure visit Department of Khadar Juarez, Keratosi s Actinic (Primary Dx); Dermatology in [place]. 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 Juarez Edge Roller: Dr. Heath Location: 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 Padney once his Mohs site has healed. PROCEDURAL [...] Radiology Claude Loaiza MPAS, P.A.-C. [address] [place] [phone] (Wo rk) 08/20/2022 Appointment Radiology Claude Loaiza MPAS, P.A.-C. [address] [place] [phone] (Wo rk) 08/22/2022 Virtual Visit Urology Gibran Ruvalcaba M.D. [address] [place] [phone] (Wo rk) documented as of this encounter Visit Diagnoses Diagnosis Keratosis Actinic - Primary Malignant Neoplasm Of Face Squamous Cell documented in this encounter Administered Medications Inactive Administered Medications - up to 3 most recent administrations Medication Order MAR Action Action Date Dose Rate Site bxoeulxpszu-wfnyyomce-YICEUBAcodz Given 07/27/2019 9:35 AM CDT 2 mL [...]
--- OUTSIDE RECORDS SUMMARY | 2022-07-31 15:49 | XMS_ITS | Encounter Summary ---
:1935 Author Organization [facility] Address [address] [place] [address] Care Team Providers Name Role Phone Unavailable Primary Care Provider Unavailable Reason for Referral Appointment Request (Routine) - Closed Specialty Diagnoses / Procedures Referred By Contact Refer red To Contact Procedures Aashish Pandey M.D. [facility] 1-4 sites [address] [place] [phone] Referral ID Status Reason Start Date Expiration Date Visits Requ ested Visits Authorized [id number] Closed 07/12/2019 07/11/2020 1 Encounter Details Date Type Department Care Team Description 07/12/2019 Orders Only Department of Aashish Pandey, Malignant Neoplasm Of Dermatology in [place] Face Squamous Cell [address] (Primary Dx) [address] [phone] Social History Tobacco Use Types Packs/Day Years [...] you attend lutheran or Patient refused 2021 congregational services? Do you belong to any clubs or No 05/17/2022 organizations such as lutheran groups, unions, fraRuiYi or athletic groups, or school groups? 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 [address] [place] [phone] (Octavio christensen) 08/20/2022 Appointment Radiology Claude Loaiza MPAS, P.A.-C. [address] [place] [phone] (Octavio christensen) 08/22/2022 Virtual Visit Urology Gibran Ruvalcaba M.D. 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
--- OUTSIDE RECORDS SUMMARY | 2022-07-31 15:49 | XMS_ITS | Encounter Summary ---
:1935 Author Organization [facility] Address [address] [place] [address] Care Team Providers Name Role Phone Unavailable Primary Care Provider Unavailable Encounter Details Date Type Department Care Team Description 06/07/2019 Orders Only Department of Aashish Pandey, Law [place] (Primary Dermatology in [place] ) [address] [address] [phone] Social History Tobacco Use Types Packs/Day Years [...] you attend yarsani or Patient refused 2021 sabianist services? 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 [address] [place] [phone] (Wo rk) 08/20/2022 Appointment Radiology Claude Loaiza MPAS, P.A.-C. [address] [place] [phone] (Wo rk) 08/22/2022 Virtual Visit Urology Gibran Ruvalcaba M.D. [address] [place] [phone] (Wo rk) Scheduled Orders Name Type Priority Associated Diagnoses Order S chedule Dermatology misc minor Dermatology Routine Lesion Skin Expec kathlene: 06/29/2019 procedure (Approximate), Expires: 2021 documented as of this encounter Visit Diagnoses Diagnosis Lesion Skin - Primary documented in this encounter
--- OUTSIDE RECORDS SUMMARY | 2022-07-31 15:49 | XMS_ITS | Encounter Summary ---
:1935 Author Organization [facility] Address [address] [place] [address] Care Team Providers Name Role Phone Unavailable [...] or relatives? How often do you attend methodist or Patient refused 2021 oriental orthodox services? 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 [address] [place] [phone] (Wo rk) 08/20/2022 Appointment Radiology Claude Loaiza MPAS, P.A.-C. [address] [place] [phone] (Wo rk) 08/22/2022 Virtual Visit Urology Gibran Ruvalcaba M.D. [address] [place] [phone] (Wo rk) documented as of [...]
--- OUTSIDE RECORDS SUMMARY | 2022-07-31 15:49 | XMS_ITS | Encounter Summary ---
:1935 Author Organization [facility] Address 200 [place] [address] Care Team Providers Name Role Phone Unavailable Primary Care Provider Unavailable Reason for Referral Outpatient (Routine) - Closed Specialty Diagnoses / Procedures Referred By Contact Refer red To Contact Dermatology Aashish Pandey M.D . [facility] Region 200 [place] [phone] Referral ID Status Reason Start Date Expiration Date Visits Requ ested Visits Authorized [id number] Closed 09/14/2018 09/14/2019 1 1 CLERK Reason for Visit Reason Comments Actinic Keratosis Encounter Details Date Type Department Care Team Description 09/14/2018 Office Visit Department of Aashish Pandey, Keratosis Actinic (Primary Dx); Dermatology in [place] Keratosis Seborrheic; [place], [place] [address] [facility] Cancer Skin Squamous Cell Personal Histo ry [address] [place] [phone] Social History Tobacco Use Types Packs/Day Years [...] you attend pentecostalism or Patient refused 2021 latter-day services? Do you belong to any clubs or No 05/17/2022 organizations such as pentecostalism groups, unions, fraAgenda or athletic groups, or school groups? 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 Hare. 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 The patient does not use sunscreen. The largest of his squamous cell carcinomas involving his left cheek was initially treated with CO2 laser in [place] and then Mohs surgery thereafter. He has also had squamous cell carcinomas as noted above involving his face and more specifically the right infraorbital area, left eyebrow, and right nasal dorsum all treated with Mohs surgery [place] in October 2017. PAST MEDICAL HISTORY 1. 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 Squamous [...] Aashish Pandey M.D. . 09/14/2018. 8:26 AM. CLERK documented in this encounter Plan of Treatment Upcoming Encounters Date Type Specialty Care Team Description 08/20/2022 Appointment Radiology Claude Loaiza MPAS, P.A.-C. [address] [place] [phone] (Wo rk) 08/20/2022 Appointment Radiology Claude Loaiza MPAS, P.A.-C. [address] [place] [phone] (Wo rk) 08/22/2022 Virtual Visit Urology Gibran Ruvalcaba M.D. 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
--- OUTSIDE RECORDS SUMMARY | 2022-07-31 15:49 | XMS_ITS | Encounter Summary ---
:1935 Author Organization [facility] Address [address] [place] [address] Care Team Providers Name Role Phone Unavailable Primary Care Provider Unavailable Reason for Visit Reason Comments Skin Check Outpatient (Routine) - Closed Specialty Diagnoses / Procedures Referred By Contact Refer red To Contact Dermatology Aashish Pandey M.D . [facility] Region [address] [place] [phone] Referral ID Status Reason Start Date Expiration Date Visits Requ ested Visits Authorized [id number] Closed 02/16/2019 02/16/2020 1 1 Encounter Details Date Type Department Care Team Description 04/19/2019 Office Visit Department of Aashish Pandey, Tumor Skin Uncertain Behavior (Primary Dx); Dermatology in [place] Keratosis [address] [phone] Social History Tobacco Use Types Packs/Day Years [...] you attend mormon or Patient refused 2021 alevism services? 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 Hare. 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 The largest of his squamous cell carcinomas involving his left cheek was initially treated with CO2 laser in [place] and then Mohs surgery thereafter. MEDICAL HISTORY 1. 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 Hare??at [facility] on 10/27/17 2. Squamous cell carcinoma [...] a total of 27 lesion(s) with two 10-82-evvsdc freeze-thaw cycles of liquid nitrogen cryoth erapy. [...] status post Mohs surgery by Dr. Hare??at [facility] on 10/27/17 ?? No evidence for [...] Radiology Claude Loaiza MPAS P.A.-C. [address] [place], [place] [phone] (Wo rk) 08/20/2022 Appointment Radiology Claude Loaiza MPAS P.A.-C. [address] [place], [place] [phone] (Wo rk) 08/22/2022 Virtual Visit Urology Gibran Ruvalcaba M.D. [address] [place], [place] [phone] (Wo rk) Scheduled Orders Name Type Priority Associated Diagnoses Order S chedule Dermatology misc minor Dermatology Routine Tumor Skin Uncerta in Expected: procedure Behavior 05/25/2019 (Approximate), Expires: 2021 documented as of this encounter Visit Diagnoses Diagnosis Tumor Skin Uncertain Behavior - Primary Keratosis Actinic documented in this encounter
--- OUTSIDE RECORDS SUMMARY | 2022-07-31 15:49 | XMS_ITS | Encounter Summary ---
:1935 Author Organization [facility] Address [address] [place] [address] Care Team Providers Name Role Phone Unavailable Primary Care Provider Unavailable Reason for Visit Appointment Request (Routine) - Closed Specialty Diagnoses / Procedures Referred By Contact Refer red To Contact Nephrology and Slava Edwards Hypertension [place] [address] [place] [address] Referral ID Status Reason Start Date Expiration Date Visits Requ ested Visits Authorized [id number] Closed 08/03/2020 08/03/2021 1 1 Encounter Details Date Type Department Care Team Description 08/23/2020 External Outreach Division of Nida Castro on And Nephrology and Ross Chiu Jr., Chronic Kidn ey Hypertension in D.O. Disease Stage 1 To 4 [place], [place] [address] [facility] [address] [place] [phone] Social History Tobacco Use Types Packs/Day Years [...] you attend congregation or Patient refused 2021 druze services? 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 - 08/23/2020 4:00 PM CST NO show [place] CKD CH MAKER documented in this encounter Plan of Treatment Upcoming Encounters Date Type Specialty Care Team Description 08/20/2022 Appointment Radiology Claude Loaiza MPAS, Ulises.-CJluis [address] [place] [phone] (Wo fermin) 08/20/2022 Appointment Radiology Claude Loaiza MPAS, P.A.-CJluis [address] [place] [phone] (Wo rk) 08/22/2022 Virtual Visit Urology Gibran Ruvalcaba M.D. [address] [place] [address] [phone] (Wo rk) documented as of this encounter Visit Diagnoses Diagnosis Hypertension And Chronic Kidney Disease Stage 1 To 4 documented in this encounter
--- OUTSIDE RECORDS SUMMARY | 2022-07-31 15:49 | XMS_ITS | Encounter Summary ---
:1935 Author Organization [facility] Address [address] [place] [address] Care Team Providers Name Role Phone Unavailable [...] you attend buddhist or Patient refused 2021 pentecostalism services? 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 [address] [place] [phone] (Wo rk) 08/20/2022 Appointment Radiology Claude Loaiza MPAS, P.A.-C. [address] [place] [phone] (Wo rk) 08/22/2022 Virtual Visit Urology Gibran Ruvalcaba M.D. [address] [place] [phone] (Wo rk) documented as of [...]
--- OUTSIDE RECORDS SUMMARY | 2022-07-31 15:49 | XMS_ITS | Encounter Summary ---
:1935 Author Organization [facility] Address [address] [place] [address] Care Team Providers Name Role Phone Unavailable [...] you attend taoism or Patient refused 2021 lutheran services? 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 [address] [place] [phone] (Wo rk) 08/20/2022 Appointment Radiology Claude Loaiza MPAS, P.A.-C. [address] [place] [address] [phone] (Wo rk) 08/22/2022 Virtual Visit Urology Gibran Ruvalcaba M.D. [address] [place] [address] [phone] (Wo rk) documented as of [...]
--- OUTSIDE RECORDS SUMMARY | 2022-07-31 15:49 | XMS_ITS | Encounter Summary ---
:1935 Author Organization [facility] Address [address] [place] [address] Care Team Providers Name Role Phone Unavailable Primary Care Provider Unavailable Reason for Referral Outpatient (Routine) - Closed Specialty Diagnoses / Procedures Referred By Contact Refer red To Contact Dermatology Aashish Pandey M.D . [address] [phone] Referral ID Status Reason Start Date Expiration Date Visits Requ ested Visits Authorized [id number] Closed 11/24/2018 11/24/2019 1 1 Scheduling Instructions Recheck a Ks and squamous cell carcinoma FridayFebruary 16 8-830 a.m. 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 [facility] Region [address] [place] [phone] Referral ID Status Reason Start Date Expiration Date Visits Requ ested Visits Authorized [id number] Closed 09/14/2018 09/14/2019 1 1 Encounter Details Date Type Department Care Team Description 11/24/2018 Office Visit Department of Aashish Pandey, Keratosis Actinic (Primary Dx); Dermatology in [place] Keratosis Seborrheijuarez; [place], [place] [address] [place] [address] Cancer Skin [place] [address] [address] [phone] Social History Tobacco Use Types Packs/Day Years [...] you attend advent or Patient refused 2021 uatsdin services? 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 The largest of his squamous cell carcinomas involving his left cheek was initially treated with CO2 laser in [place] and then Mohs surgery thereafter. ?? Allergies Allergen Reactions ??? Penicillins Anaphylaxis PAST MEDICAL HISTORY 1. 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 Hare at [facility] on 10/27/17 2. Squamous cell carcinoma in [...] a total of 33 lesion(s) with two 11-95-wkhbkf freeze-thaw cycles of liquid nitrogen cryoth erapy, [...] post Mohs surgery by Dr. Hare at [facility] on 10/27/17 No evidence for recurrence [...] Aashish Pandey M.D. . 11/24/2018. 8:32 AM. R LINE REPAIRER documented in this encounter Plan of Treatment Upcoming Encounters Date Type Specialty Care Team Description 08/20/2022 Appointment Radiology Claude Loaiza, GARCIA, P.A.-C. [address] [place] [phone] (Wo rk) 08/20/2022 Appointment Radiology Claude Loaiza MPAS, P.A.-C. [address] [place] [address] [phone] (Wo rk) 08/22/2022 Virtual Visit Urology Gibran Ruvalcaba M.D. 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
--- OUTSIDE RECORDS SUMMARY | 2022-07-31 15:49 | XMS_ITS | Encounter Summary ---
:1935 Author Organization [facility] Address [address] [place] [address] Care Team Providers Name Role Phone Unavailable [...] or relatives? How often do you attend samaritan or Patient refused 2021 cheondoism services? 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 [address] [place] [address] [phone] (Wo rk) 08/20/2022 Appointment Radiology Claude Loaiza MPAS, P.A.-C. [address] [place] [address] [phone] (Wo rk) 08/22/2022 Virtual Visit Urology Gibran Ruvalcaba M.D. [address] [place], [place] [phone] (Wo rk) documented as [...]
--- OUTSIDE RECORDS SUMMARY | 2022-07-31 15:49 | XMS_ITS | Encounter Summary ---
:1935 Author Organization [facility] Address [address] [place] [address] Care Team Providers Name Role Phone Unavailable Primary Care Provider Unavailable Reason for Referral Outpatient (Routine) - Closed Specialty Diagnoses / Procedures Referred By Contact Refer red To Contact Dermatology Aashish Pandey M.D . [address] [phone] Referral ID Status Reason Start Date Expiration Date Visits Requ ested Visits Authorized [id number] Closed 02/16/2019 02/16/2020 1 1 Reason for Visit Reason Comments Follow-up AK's on face and arms Outpatient (Routine) - Closed Specialty Diagnoses / Procedures Referred By Contact Refer red To Contact Dermatology Aashish Pandey M.D . [facility] Region [address] [place] [phone] Referral ID Status Reason Start Date Expiration Date Visits Requ ested Visits Authorized [id number] Closed 11/24/2018 11/24/2019 1 1 Encounter Details Date Type Department Care Team Description 02/16/2019 Office Visit Department of Aashish Pandey, Cancer [place] mel[place] Squamous Cell Personal History (Primary Dx); Dermatology in [place] Keratosis [address] [phone] [phone] Social History Tobacco Use Types Packs/Day Years [...] you attend gnosticism or Patient refused 2021 lutheran services? Do you belong to any clubs or No 05/17/2022 organizations such as gnosticism groups, unions, fraMamboCar or athletic groups, or school groups? 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 Hare. 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 The largest of his squamous cell carcinomas involving his left cheek was initially treated with CO2 laser in [place] and then Mohs surgery thereafter. PAST MEDICAL HISTORY 1. 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 Hare at [facility] on 10/27/17 2. Squamous cell carcinoma [...] this could represent an actinic keratosis or tack picker's papule. I recommend treatment with liquid nitrogen [...] a total of 23 lesion(s) with two 80-80-ymjzyg freeze-thaw cycles of liquid nitrogen cryoth erapy. [...] post Mohs surgery by Dr. Hare at [facility] on 10/27/17 No evidence for recurrence [...] Radiology Claude Loaiza, GARCIA, P.A.-C. [address] [place], [place] [address] [phone] (Wo rk) 08/20/2022 Appointment Radiology Claude Loaiza, GARCIA, P.A.-C. [address] [place], [place] [address] [phone] (Wo rk) 08/22/2022 Virtual Visit Urology Gibran Ruvalcaba M.D. [address] [place], [place] 55 [phone] (Wo rk) Scheduled Referrals Name Type Priority Associated Order Schedule Diagnoses Dermatology office Outpatient Referral Routine Ex pected: visit (clinic) 02/16/2019 (Approximate), Expires: 02/16/2022 documented as of this encounter Visit Diagnoses Diagnosis Cancer Skin Squamous Cell Personal Histo ry - Primary Keratosis Actinic documented in this encounter
--- OUTSIDE RECORDS SUMMARY | 2022-07-31 15:49 | XMS_ITS | Encounter Summary ---
:1935 Author Organization [facility] Address [address] [place] [address] Care Team Providers Name Role Phone Unavailable Primary Care Provider Unavailable Reason for Referral Outpatient (Routine) - Closed Specialty Diagnoses / Procedures Referred By Contact Refer red To Contact Dermatology Aashish Pandey M.D . [address] [phone] Referral ID Status Reason Start Date Expiration Date Visits Requ ested Visits Authorized [id number] Closed 10/04/2019 10/03/2020 1 1 Scheduling Instructions 915 am recheck lesion NTORY REPRESENTATIVE Reason for Visit Reason Comments Actinic Keratosis Recheck Outpatient (Routine) - Closed Specialty Diagnoses / Procedures Referred By Contact Refer red To Contact Dermatology Aashish Pandey M.D . [facility] Region [address] [place] [phone] Referral ID Status Reason Start Date Expiration Date Visits Requ ested Visits Authorized [id number] Closed 08/03/2019 08/02/2020 1 1 Encounter Details Date Type Department Care Team Description 10/04/2019 Office Visit Department of Aashish Pandey Nevi Multi ple (Primary Dx); Dermatology in [place] Keratosis Actin; [place], [place] [address] [place] [address] Keratosis Seborrheic; [address] [place] [address] Cancer Skin Squamous [place] [address] [phone] Social History Tobacco Use Types Packs/Day Years [...] you attend episcopal or Patient refused 2021 bahai services? 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 Juarez at [facility]. He denies a personal or family history for melanoma. The patient has no other concerns today. MEDICAL HISTORY 1. 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 Hare??at [facility] on 10/27/17 2. Squamous cell carcinoma [...] surgery on 07/27/[address] Juarez at [facility] 6. Negative for melanoma FAMILY HISTORY Negative for melanoma OBJECTIVE PHYSICAL EXAMINATION General: Awake, alert, in no acute distress, and with appropriate affect. Skin: Examination of the face and upper extremities reveals actinic keratoses, including the right sabianism x2, right cheek x2, right ear antihelix [...] a total of 20 lesion(s) with two 26-72-kaqbxg freeze-thaw cycles of liquid nitrogen cryoth erapy. [...] Electronically Signed: cookie Kelly. 10/04/2019. 9:59 AM INVENTORY REPRESENTATIVE. Aashish Dubon M.D., personally performed the services described in this documentation. All medical record entries made by the scribe were at my direction and in my presence. I have reviewed the chart and discharge instructions (if applicable) and agree that the record reflects my personal performance and is accurate and complete. Aashish Pandey M.D. . 10/04/2019. 10:17 AM INVENTORY REPRESENTATIVE. NTORY REPRESENTATIVE documented in this encounter Plan of Treatment Upcoming Encounters Date Type Specialty Care Team Description 08/20/2022 Appointment Radiology Claude Loaiza MPAS, P.A.-C. [address] [place] [address] [phone] (Wo rk) 08/20/2022 Appointment Radiology Claude Loaiza MPAS, P.A.-C. [address] [place] [address] [phone] (Wo rk) 08/22/2022 Virtual Visit Urology Gibran Ruvalcaba M.D. [address] [place] [address] [phone] (Wo fermin) Scheduled Referrals Name Type Priority Associated Order Schedule Diagnoses Dermatology office Outpatient Referral Routine Ex pected: visit (clinic) 11/02/2019 (Approximate), Expires: 10/04/2022 documented as of this encounter Visit Diagnoses Diagnosis Nevi Multiple - Primary Keratosis Actinic Keratosis Seborrheic Cancer Skin Squamous Cell Personal Histo ry documented in this encounter
--- OUTSIDE RECORDS SUMMARY | 2022-07-31 15:49 | XMS_ITS | Encounter Summary ---
:1935 Author Organization [facility] Address [address] [place] [address] Care Team Providers Name Role Phone Unavailable Primary Care Provider Unavailable Encounter Details Date Type Department Care Team Description 06/05/2021 Orders Only [facility] MNT Gordon Grant, D.O. [address] [place] [address] (Wo rk) Social History Tobacco [...] you attend mandaeism or Patient refused 2021 sikh services? Do [...] Date Recorded Male 09/10/2018 8:41 AM HAND SANDER documented as of this encounter Plan of Treatment Upcoming Encounters Date Type Specialty Care Team Description 08/20/2022 Appointment Radiology Claude Loaiza MPAS PJluisAJluis-C. [address] [place] [address] [phone] (Wo rk) 08/20/2022 Appointment Radiology Claude Loaiza MPAS, PJluisA.-C. [address] [place] [address] [phone] (Wo rk) 08/22/2022 Virtual Visit Urology Gibran Ruvalcaba M.D. [address] [place] [address] [phone] (Wo rk) documented as of this encounter Visit Diagnoses Not on filedocumented in this encounter
--- OUTSIDE RECORDS SUMMARY | 2022-07-31 15:49 | XMS_ITS | Encounter Summary ---
:1935 Author Organization [facility] Address [address] [place] [address] Care Team Providers Name Role Phone Unavailable Primary Care Provider Unavailable Encounter Details Date Type Department Care Team Description 08/02/2019 Clinical Communication Department of Shanta Pena V., Dermatology in [address] [phone] Social History Tobacco Use Types Packs/Day Years [...] you attend buddhism or Patient refused 2021 adventism services? 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 - 08/02/2019 11:37 AM CDT noted Telephone Encounter - Haily Reddy - 08/02/2019 11:00 AM CDT Patient's [...] Appointment Radiology Claude Loaiza MPAS, Karlene-CJluis [address] [place] [address] [phone] (Octavio christensen) 08/20/2022 Appointment Radiology Claude Loaiza MPAS, P.A.-C. [address] [place] [phone] (Octavio christensen) 08/22/2022 Virtual Visit Urology Gibran Ruvalcaba M.D. [address] [place], [place] [phone] (Octavio christensen) documented as of this encounter Visit Diagnoses Not on filedocumented in this encounter
--- OUTSIDE RECORDS SUMMARY | 2022-07-31 15:49 | XMS_ITS | Encounter Summary ---
:1935 Author Organization [facility] Address [address] [place] [address] Care Team Providers Name Role Phone Unavailable Primary Care Provider Unavailable Reason for Visit Reason Comments Biopsy Encounter Details Date Type Department Care Team Description 06/29/2019 Procedure visit Department of Aashish Pandey (Primary Dx); Dermatology in [place] M.D. Keratosis [address] [phone] Social History Tobacco Use Types Packs/Day Years [...] you attend anabaptist or Patient refused 2021 sabianist services? 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 The patient was very adamant about not going down to [facility] and would like me to treat these [...] dorsum all treated with Mohs surgery at [facility] on10/27/17. The largest of his squamous cell carcinomas involving his left cheek was initially treated with CO2 laser in [place] and then Mohs surgery thereafter. 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 in on 12/10/17??under the care of Dr. Hare. MEDICAL HISTORY 1. 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 Hare??at [facility] on 10/27/17 2. Squamous cell carcinoma in [...] which he refused to go down to [place] to have this done. Subsequently, we recommend [...] he is not willing to travel to [facility] at this time. PROCEDURAL PAUSE: Procedural pause [...] the patient by letter. Patient given pamphlet [id number]. Discussed the risks, benefits, alternatives, and the necessity of other members of the healthcare team participating in the procedure. All questions answered and consent given. #2 Left preauricular: Squamous cell carcinoma, superficially transected As noted above, we had recommended Mohs surgery for this squamous cell carcinoma. However, he refused to go to [place] to have the Mohs surgery done. Subsequently, [...] he is not willing to travel to [facility] at this time. PROCEDURAL PAUSE: Procedural pause [...] the patient by letter. Patient given pamphlet [id number]. Discussed the risks, benefits, alternatives, and the [...] require further treatment with Mohs surgery in [place]. He knowswhat to expect with the Mohs surgery and subsequently I have placed an order to have this done. I have asked him to follow up with me in the next few months and he states he already has an appointment.They requested that the [facility] appointment office call them with regards to the Mohs surgery date and time and I told him I would put that on the request. I have asked them to call me if they have not heard back from our appointment office in [place] within a week or if the surgery date is more than 4-6 weeks from now. They are appreciative of the phone call. All questions answered. documented in this encounter Plan of Treatment Upcoming Encounters Date Type Specialty Care Team Description 08/20/2022 Appointment Radiology Claude Loaiza MPAS, PJluisA.-C. [address] [place] [phone] (Octavio christensen) 08/20/2022 Appointment Radiology Claude Loaiza MPAS P.A.-C. [address] [place] [address] [phone] (Octavio christensen) 08/22/2022 Virtual Visit Urology Gibran Ruvalcaba M.D. [address] [place] [address] [phone] (Ocatvio christensen) documented as of this encounter Procedures [...] Organization Address City/State/ZIP Code Phon e Number [facility] - [address] [place], [place] [address] [facility] documented in this encounter Visit Diagnoses Diagnosis [...]
--- OUTSIDE RECORDS SUMMARY | 2022-07-31 15:49 | XMS_ITS | Encounter Summary ---
:1935 Author Organization [facility] Address [address] [place] [address] Care Team Providers Name Role Phone Unavailable Primary Care Provider Unavailable Reason for Visit Reason Onset Date Comments Derm schedule 09/14/2018 Encounter Details Date Type Department Care Team Description 09/14/2018 Clinical Communication Department of [facility] Becky Pandey [facility] Medicine, [place] Ashtyn Newby [facility], in [address] [address] [place], [place] [phone] (Work) [phone] Social History Tobacco Use Types Packs/Day Years [...] you attend adventism or Patient refused 2021 uatsdin services? 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 - 09/15/2018 5:48 PM CST Discussed with Dr. Pandey and he would like to open a procedure appointment slot on Friday11/24/18 at 8am to see this patient. Will ask the Appointment Office to reach out to the patient to schedule this appointment. OR SOFTWARE DEVELOPER Telephone Encounter - Brii Heller - 09/14/2018 9:25 AM CST Pt. Was seen by Katherin today 09/14. Says he needs to be seen in 2 to 3 months. But first available isn't until 01/05. Which is about 3 and a half months. Please let me know when to schedule this patient and I will call him to get it scheduled. OR SOFTWARE DEVELOPER documented in this encounter Plan of Treatment Upcoming Encounters Date Type Specialty Care Team Description 08/20/2022 Appointment Radiology Claude Loaiza, MPAS, P.A.-C. [address] [place] [phone] (Wo rk) 08/20/2022 Appointment Radiology Claude Loaiza, GARCIA, PJluisAJluis-Aram. [address] [place], [place] [phone] (Wo rk) 08/22/2022 Virtual Visit Urology Gibran Ruvalcaba M.D. [address] [place], [place] [phone] (Wo rk) documented as of this encounter Visit Diagnoses Not on filedocumented in this encounter
--- OUTSIDE RECORDS SUMMARY | 2022-07-31 15:49 | XMS_ITS | Encounter Summary ---
:1935 Author Organization [facility] Address [address] [place] [address] Care Team Providers Name Role Phone Unavailable Primary Care Provider Unavailable Encounter Details Date Type Department Care Team Description 12/10/2017 Hospital Encounter HX RST DERM SURG OP [facility] Ra yandel Hare M.D. [address] [place] [phone] (Wo rk) Social History Tobacco Use Types [...] you attend shinto or Patient refused 2021 denominational services? 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 Pulse 66 12/10/2017 1:15 PM MEDICAL BILLING ASSOCIATE Vital sign result from Clinical Notes. Temperature [...] Radiology Claude Loaiza MPAS, P.A.-C. [address] [place] [address] [phone] (Octavio christensen) 08/20/2022 Appointment Radiology Claude Loaiza MPAS, P.A.-C. [address] [place] [address] 55 [phone] (Octavio christensen) 08/22/2022 Virtual Visit Urology Gibran Ruvalcaba M.D. [address] [place] [address] [phone] (Octavio christensen) documented as of this encounter Visit Diagnoses Not on filedocumented in this encounter
--- OUTSIDE RECORDS SUMMARY | 2022-07-31 15:49 | XMS_ITS | Encounter Summary ---
:1935 Author Organization [facility] Address [address] [place] [address] Care Team Providers Name Role Phone Unavailable [...] you attend mu-ism or Patient refused 2021 anglican services? Do [...] Date Recorded Male 09/10/2018 8:41 AM FIELD SERVICE REP documented as of this encounter Plan of Treatment Upcoming Encounters Date Type Specialty Care Team Description 08/20/2022 Appointment Radiology Claude Loaiza MPAS, P.A.-C. [address] [place] [address] [phone] (Wo rk) 08/20/2022 Appointment Radiology Claude Loaiza MPAS, P.A.-C. [address] [place] [address] [phone] (Wo rk) 08/22/2022 Virtual Visit Urology Gibran Ruvalcaba M.D. [address] [place], [place] [phone] (Wo rk) documented as [...]
--- OUTSIDE RECORDS SUMMARY | 2022-07-31 15:49 | XMS_ITS | Encounter Summary ---
:1935 Author Organization [facility] Address [address] [place] [address] Care Team Providers Name Role Phone Unavailable [...] you attend druze or Patient refused 2021 yazidi services? 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 [address] [place] [address] [phone] (Wo rk) 08/20/2022 Appointment Radiology Claude Loaiza MPAS, P.A.-C. [address] [place] [address] 55 [phone] (Wo rk) 08/22/2022 Virtual Visit Urology Gibran Ruvalcaba M.D. [address] [place], [place] [phone] (Wo rk) documented as [...]
--- OUTSIDE RECORDS SUMMARY | 2022-07-31 15:49 | XMS_ITS | Encounter Summary ---
:1935 Author Organization [facility] Address [address] [place] [address] Care Team Providers Name Role Phone Unavailable Primary Care Provider Unavailable Encounter Details Date Type Department Care Team Description 04/13/2019 Clinical Communication Department of Shanta Pena V., Dermatology in [address] [phone] Social History Tobacco Use Types Packs/Day Years [...] you attend mosque or Patient refused 2021 methodist services? 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 [address] [place] [address] 55 [phone] (Octavio christensen) 08/20/2022 Appointment Radiology Claude Loaiza MPAS, P.A.-C. [address] [place] [address] 55 [phone] (Octavio christensen) 08/22/2022 Virtual Visit Urology Gibran Ruvalcaba M.D. [address] [place] [address] [phone] (Octavio christensen) documented as of this encounter Visit Diagnoses Not on filedocumented in this encounter
--- OUTSIDE RECORDS SUMMARY | 2022-07-31 15:49 | XMS_ITS | Encounter Summary ---
:1935 Author Organization [facility] Address [address] [place] [address] Care Team Providers Name Role Phone Unavailable Primary Care Provider Unavailable Reason for Visit Reason Onset Date Comments biopsy results 06/07/2019 Encounter Details Date Type Department Care Team Description 06/07/2019 Clinical Communication Department of Becky Trinidad biopsy results Medicine, [place] New[place] M.D. [facility], in [address] [place] [phone] [place] [address] [place], [place] (Work) [phone] Social History Tobacco Use [...] you attend scientologist or Patient refused 2021 buddhist services? 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 MEAT SMOKER documented as of this encounter Miscellaneous Notes Telephone Encounter - Blanca Dickens - 06/07/2019 3:10 PM CDT Pt called and would like a call back regarding biopsy results. Please call her at [phone] documented in this encounter Plan of Treatment Upcoming Encounters Date Type Specialty Care Team Description 08/20/2022 Appointment Radiology Claude Loaiza MPAS, P.A.-C. [address] [place] [phone] (Wo rk) 08/20/2022 Appointment Radiology Claude Loaiza MPAS, P.A.-C. [address] [place] [address] [phone] (Wo rk) 08/22/2022 Virtual Visit Urology Gibran Ruvalcaba M.D. [address] [place] [address] [phone] (Wo rk) documented as of this encounter Visit Diagnoses Not on filedocumented in this encounter
--- OUTSIDE RECORDS SUMMARY | 2022-07-31 15:49 | XMS_ITS | Encounter Summary ---
:1935 Author Organization [facility] Address [address] [place] [address] Care Team Providers Name Role Phone Unavailable [...] you attend muslim or Patient refused 2021 congregation services? 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 [address] [place], [place] [phone] (Wo rk) 08/20/2022 Appointment Radiology Claude Loaiza MPAS, P.A.-C. [address] [place], [place] [phone] (Wo rk) 08/22/2022 Virtual Visit Urology Gibran Ruvalcaba M.D. [address] [place], [place] [phone] (Wo rk) documented as of this encounter Procedures Procedure Name Priority Date/Time Associated Comments Diagnosis DERMATOLOGY IMAGE Routine 12/10/2017 12:00 Result s for this EXAM PM ELECTRIC OPERATOR procedure are i n the results section. documented in this encounter Results DERMATOLOGY IMAGE EXAM (12/10/2017 12:00 PM ELECTRIC OPERATOR) Specimen (Source) Anatomical Collection Method Collection Time Re ceived Time Location / / Volume Laterality 12/10/2017 12:00 PM ELECTRIC OPERATOR Narrative IIMS - 12/10/2017 3:55 PM ELECTRIC OPERATOR This order has been created and [...]
--- OUTSIDE RECORDS SUMMARY | 2022-07-31 15:49 | XMS_ITS | Encounter Summary ---
:1935 Author Organization [facility] Address [address] [place] [address] Care Team Providers Name Role Phone Unavailable Primary Care Provider Unavailable Reason for Referral Outpatient (Routine) - Closed Specialty Diagnoses / Procedures Referred By Contact Refer red To Contact Dermatology Aashish Pandey M.D . [facility] Region [address] [place] [phone] Referral ID Status Reason Start Date Expiration Date Visits Requ ested Visits Authorized Closed 05/01/2020 05/01/2021 1 1 Scheduling Instructions Return visit in 2-3 months. 30 minutes Reason for Visit Reason Comments Skin Check Encounter Details Date Type Department Care Team Description 05/01/2020 Office Visit Department of Aashish Pandey, Keratosis [facility] D[facility] in [place] (Primary Dx) [place], [place] [address] [phone] Social History Tobacco Use Types Packs/Day Years [...] you attend jain or Patient refused 2021 mormon services? Do you belong to any clubs or No 05/17/2022 organizations such as jain groups, unions, fraPango or athletic groups, or school groups? 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 Hare??at [facility] on 10/27/17 2. Squamous cell carcinoma in [...] surgery on 07/27/[address] Juarez at [facility] 6. Negative for melanoma FAMILY HISTORY No [...] He also has 1 AK involving the uhopb0dt dorsal finger and 1 involving the right [...] Radiology Claude Loaiza MPAS, P.A.-C. [address] [place] [phone] (Wo rk) 08/20/2022 Appointment Radiology Claude Loaiza MPAS, P.A.-C. [address] [place] [phone] (Wo rk) 08/22/2022 Virtual Visit Urology Gibran Ruvalcaba M.D. [address] [place] [phone] (Wo rk) Scheduled Referrals Name Type Priority Associated Order Schedule Diagnoses Dermatology office Outpatient Referral Routine Ex pected: visit (clinic) 08/01/2020 (Approximate), Expires: 05/01/2023 documented as of this encounter Visit Diagnoses Diagnosis Keratosis [facility]inic - Primary documented in this encounter
--- OUTSIDE RECORDS SUMMARY | 2022-07-31 15:50 | XMS_ITS | Encounter Summary ---
:1935 Author Organization [facility] Address [address] [place] [address] Care Team Providers Name Role Phone Unavailable Primary Care Provider Unavailable Encounter Details Date Type Department Care Team Description 10/27/2017 Hospital Encounter HX RST DERM SURG OP [facility] Ra yandel Hare M.D. [address] [place] [phone] (Wo rk) Social History Tobacco Use Types [...] you attend yazidism or Patient refused 2021 cheondoism services? 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 Pulse 71 10/27/2017 8:00 AM TECHNICAL MAINTENANCE SPECIALIST Vital sign result from Clinical Notes. Temperature [...] Appointment Radiology Claude Loaiza MPAS, P.A.-C. [address] [place] [phone] (Octavio christensen) 08/20/2022 Appointment Radiology Claude Loaiza MPAS, P.A.-C. [address] [place] [phone] (Octavio christensen) 08/22/2022 Virtual Visit Urology Gibran Ruvalcaba M.D. [address] [place] [phone] (Octavio christensen) documented as of this encounter Visit Diagnoses Not on filedocumented in this encounter
--- OUTSIDE RECORDS SUMMARY | 2022-07-31 15:50 | XMS_ITS | Encounter Summary ---
:1935 Author Organization [facility] Address [address] [place] [address] Care Team Providers Name Role Phone Unavailable [...] you attend restorationist or Patient refused 2021 faith services? 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 MENTAL HEALTH THERAPIST documented as of this encounter Plan of Treatment Upcoming Encounters Date Type Specialty Care Team Description 08/20/2022 Appointment Radiology Claude Loaiza MPAS, P.A.-C. [address] [place], [place] [phone] (Wo rk) 08/20/2022 Appointment Radiology Claude Loaiza MPAS, P.A.-C. [address] [place], [place] [phone] (Wo rk) 08/22/2022 Virtual Visit Urology Gibran Ruvalcaba M.D. [address] [place], [place] [phone] (Wo rk) documented as of this encounter Procedures Procedure Name Priority Date/Time Associated Comments Diagnosis DERMATOLOGY IMAGE Routine 10/27/2017 12:00 Result s for this EXAM PM MENTAL HEALTH THERAPIST procedure are i n the results section. documented in this encounter Results DERMATOLOGY IMAGE EXAM (10/27/2017 12:00 PM MENTAL HEALTH THERAPIST) Specimen (Source) Anatomical Location Collection Method / Collectio n Time Received Time / Laterality Volume Narrative IIMS - 10/27/2017 4:43 PM MENTAL HEALTH THERAPIST This order has been created and auto-finalized [...]
--- OUTSIDE RECORDS SUMMARY | 2022-07-31 15:50 | XMS_ITS | Encounter Summary ---
:1935 Author Organization [facility] Address [address] [place] [address] Care Team Providers Name Role Phone Unavailable Primary Care Provider Unavailable Encounter Details Date Type Department Care Team Description 05/24/2015 Hospital Encounter HX [facility] Ra yandel Hare M.D. [address] [place] [phone] (Wo rk) Social History Tobacco Use Types [...] you attend congregation or Patient refused 2021 mormon services? 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 [address] [place] [phone] (Wo rk) 08/20/2022 Appointment Radiology Claude Loaiza MPAS, P.A.-C. [address] [place] [phone] (Wo rk) 08/22/2022 Virtual Visit Urology Gibran Ruvalcaba M.D. [address] [place] [phone] (Wo rk) documented as of this encounter Visit Diagnoses Not on filedocumented in this encounter
--- OUTSIDE RECORDS SUMMARY | 2022-07-31 15:50 | XMS_ITS | Encounter Summary ---
:1935 Author Organization [facility] Address [address] [place] [address] Care Team Providers Name Role Phone Unavailable Primary Care Provider Unavailable Encounter Details Date Type Department Care Team Description 02/12/2016 Hospital Encounter HX RST DERM SURG OP [facility] Ra yandel Hare M.D. [address] [place] [phone] (Wo rk) Social History Tobacco Use Types [...] you attend caodaism or Patient refused 2021 druze services? 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 [address] [place] [phone] (Wo rk) 08/20/2022 Appointment Radiology Claude Loaiza MPAS, P.A.-C. [address] [place] [phone] (Wo rk) 08/22/2022 Virtual Visit Urology Gibran Ruvalcaba M.D. [address] [place] [phone] (Wo rk) documented as of this encounter Visit Diagnoses Not on filedocumented in this encounter
--- OUTSIDE RECORDS SUMMARY | 2022-07-31 15:50 | XMS_ITS | Encounter Summary ---
:1935 Author Organization [facility] Address [address] [place] [address] Care Team Providers Name Role Phone Unavailable [...] you attend judaism or Patient refused 2021 restorationist services? 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 [address] [place], [place] [phone] (Wo rk) 08/20/2022 Appointment Radiology Claude Loaiza MPAS, P.A.-C. [address] [place], [place] [phone] (Wo rk) 08/22/2022 Virtual Visit Urology Gibran Ruvalcaba M.D. [address] [place], [place] [phone] (Wo rk) documented as of this encounter Procedures Procedure Name Priority Date/Time Associated Comments Diagnosis DERMATOLOGY IMAGE Routine 10/27/2017 12:25 Result s for this EXAM PM EXPERIMENTAL WORKER procedure are i n the results section. documented in this encounter Results DERMATOLOGY IMAGE EXAM (10/27/2017 12:25 PM EXPERIMENTAL WORKER) Specimen (Source) Anatomical Location Collection Method / Collectio n Time Received Time / Laterality Volume Narrative IIMS - 10/27/2017 4:45 PM EXPERIMENTAL WORKER This order has been created and auto-finalized [...]
--- OUTSIDE RECORDS SUMMARY | 2022-07-31 15:50 | XMS_ITS | Encounter Summary ---
:1935 Author Organization [facility] Address [address] [place] [address] Care Team Providers Name Role Phone Unavailable [...] attend roman catholic or Patient refused 2021 jain services? 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 [address] [place], [place] [phone] (Wo rk) 08/20/2022 Appointment Radiology Claude Loaiza MPAS, P.A.-C. [address] [place], [place] [phone] (Wo rk) 08/22/2022 Virtual Visit Urology Gibran Ruvalcaba M.D. [address] [place], [place] [phone] (Wo rk) documented as of this encounter Procedures Procedure Name Priority Date/Time Associated Comments Diagnosis DERMATOLOGY IMAGE Routine 10/27/2017 12:10 Result s for this EXAM PM GAS INSPECTOR procedure are i n the results section. documented in this encounter Results DERMATOLOGY IMAGE EXAM (10/27/2017 12:10 PM GAS INSPECTOR) Specimen (Source) Anatomical Location Collection Method / Collectio n Time Received Time / Laterality Volume Narrative IIMS - 10/27/2017 4:43 PM GAS INSPECTOR This order has been created and auto-finalized [...]
--- OUTSIDE RECORDS SUMMARY | 2022-07-31 15:50 | XMS_ITS | Encounter Summary ---
:1935 Author Organization [facility] Address [address] [place] [address] Care Team Providers Name Role Phone Unavailable [...] you attend confucianist or Patient refused 2021 oriental orthodox services? 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 [address] [place], [place] [phone] (Wo rk) 08/20/2022 Appointment Radiology Claude Loaiza MPAS, P.A.-C. [address] [place], [place] [phone] (Wo rk) 08/22/2022 Virtual Visit Urology Gibran Ruvalcaba M.D. [address] [place], [place] [phone] (Wo rk) documented as of this encounter Procedures Procedure Name Priority Date/Time Associated Comments Diagnosis DERMATOLOGY IMAGE Routine 10/27/2017 12:05 Result s for this EXAM PM ELEVATED WORK PLATFORM OPERATOR procedure are i n the results section. documented in this encounter Results DERMATOLOGY IMAGE EXAM (10/27/2017 12:05 PM ELEVATED WORK PLATFORM OPERATOR) Specimen (Source) Anatomical Location Collection Method / Collectio n Time Received Time / Laterality Volume Narrative IIMS - 10/27/2017 4:43 PM ELEVATED WORK PLATFORM OPERATOR This order has been created and [...]
--- OUTSIDE RECORDS SUMMARY | 2022-07-31 15:50 | XMS_ITS | Encounter Summary ---
:1935 Author Organization [facility] Address [address] [place] [address] Care Team Providers Name Role Phone Unavailable [...] or relatives? How often do you attend rastafarian or Patient refused 2021 anabaptist services? 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 [address] [place], [place] [phone] (Wo rk) 08/20/2022 Appointment Radiology Claude Loaiza MPAS, P.A.-C. [address] [place], [place] [phone] (Wo rk) 08/22/2022 Virtual Visit Urology Gibran Ruvalcaba M.D. [address] [place], [place] [phone] (Wo rk) documented as of this encounter Procedures Procedure Name Priority Date/Time Associated Comments Diagnosis DERMATOLOGY IMAGE Routine 10/27/2017 12:20 Result s for this EXAM PM GATE TENDER procedure are i n the results section. documented in this encounter Results DERMATOLOGY IMAGE EXAM (10/27/2017 12:20 PM GATE TENDER) Specimen (Source) Anatomical Location Collection Method / Collectio n Time Received Time / Laterality Volume Narrative IIMS - 10/27/2017 4:43 PM GATE TENDER This order has been created and auto-finalized [...]
--- OUTSIDE RECORDS SUMMARY | 2022-07-31 15:50 | XMS_ITS | Encounter Summary ---
:1935 Author Organization [facility] Address [address] [place] [address] Care Team Providers Name Role Phone Unavailable [...] you attend yazidism or Patient refused 2021 catholic services? 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 [address] [place], [place] [phone] (Wo rk) 08/20/2022 Appointment Radiology Claude Loaiza MPAS, P.A.-C. [address] [place], [place] [phone] (Wo rk) 08/22/2022 Virtual Visit Urology Gibran Ruvalcaba M.D. [address] [place], [place] [phone] (Wo rk) documented as of this encounter Procedures Procedure Name Priority Date/Time Associated Comments Diagnosis DERMATOLOGY IMAGE Routine 10/27/2017 12:15 Result s for this EXAM PM PLASTIC TECHNICIAN procedure are i n the results section. documented in this encounter Results DERMATOLOGY IMAGE EXAM (10/27/2017 12:15 PM PLASTIC TECHNICIAN) Specimen (Source) Anatomical Location Collection Method / Collectio n Time Received Time / Laterality Volume Narrative IIMS - 10/27/2017 4:43 PM PLASTIC TECHNICIAN This order has been created and auto-finalized [...]
--- OUTSIDE RECORDS SUMMARY | 2022-07-31 15:52 | XMS_ITS | Encounter Summary ---
:1935 Author Organization [facility] Address [address], [place] [address] Care Team Providers Name Role Phone Yaneth English MD Primary Care Provider Reason for Visit Reason Comments INJURY, HIP Back Pain INJURY, KNEE Encounter Details Date Type Department Care Team Description 10/11/2013 Office Visit [facility] David Francisco, Emeka finn joint disease of knee (Primary Dx); Urgent Care Knee pain [address] [place] [address] [place], [place] [address] [phone] (Wo rk) Social History Tobacco Use Types Packs/Day Years Used Date Smoking Tobacco: Never Assessed Sex Assigned at Date Recorded Not on file documented as of this encounter Last Filed Vital Signs Vital Sign Reading Time Taken Comments Blood Pressure 120/86 10/11/2013 11:23 AM MORTGAGE LOAN REVIEWER Pulse - - Temperature 37.1 ??C (98.8 ??F) 10/11/2013 11:23 AM MORTGAGE LOAN REVIEWER Respiratory Rate - - Oxygen Saturation - - Inhaled Oxygen Concentration - - Weight 93.9 kg (207 lb) 10/11/2013 11:23 AM MORTGAGE LOAN REVIEWER Height 168.9 cm (5' 6.5) 10/11/2013 11:23 AM MORTGAGE LOAN REVIEWER Body Mass Index 32.91 10/11/2013 11:23 AM MORTGAGE LOAN REVIEWER documented in this encounter Patient Instructions Patient InstructionsLiberty Cedeño - 10/11/2013 1:[address] David Francisco MD Sports & Orthopaedic Medicine [facility] Piano Builder: Colette Loges Please fax all paperwork correspondence to [phone] [facility] Nurse Line: [phone] Please contact [facility] Nurse line for all requests and questions. Please contact your Pharmacy for all medication refill requests GAGE LOAN REVIEWER documented in this encounter Progress Notes David Francisco MD - 10/11/2013 9:46 PM CST Progress Notes signed by David Francisco MD at 10/14/132013 Author: David Francisco MD Service: (none) Author Type: Physician Filed: 10/14/132013 Note Time: 10/12/13828 Status: Signed Corporate Quality Manager: David Francisco MD (Physician) NAME: BLAKE SUTTON MR#: [id number] CSN: [id number] AUTHENTICATING CLINICIAN: David Francisco MD CONFIRM #: [...] verbalized understanding. CWM:URIEL C: R:10/11/13 21:57 CONFIRM#:[id number] GAGE LOAN REVIEWER documented in this encounter Plan of Treatment Not on filedocumented as of this encounter Visit Diagnoses Diagnosis Degenerative joint disease of knee - Idalia yaneth Osteoarthrosis, unspecified whether gene ralized or localized, lower leg Knee pain Pain in joint, lower leg documented in this encounter Care Teams Room Service Bellhop Relationship Specialty Start Date End Date Yaneth English MD PCP - General 10/11/[address] [place] [address] documented as of this encounter
--- OUTSIDE RECORDS SUMMARY | 2022-07-31 15:52 | XMS_ITS | Encounter Summary ---
:1935 Author Organization [facility] Address [address] [place] [address] Care Team Providers Name Role Phone Yamila English MD Primary Care Provider Reason for Visit Procedure/Equipment (Routine) - Incomplete Specialty Diagnoses / Procedures Referred By Contact Refer red To Contact Diagnoses Pain of right hip joint Right knee pain, unspecified chronicity Bryon Richardson MD Procedures XR Pelvis W Rt Lateral Hip [address] [place] [address] Referral ID Status Reason Start Date Expiration Date Visits V isits Requested Authorized [id number] Incomplete 05/02/2019 07/31/2020 1 1 Encounter Details Date Type Department Care Team Description 05/02/2019 Ancillary [facility] Bryon Richardson, Pain of right hip joint; Procedure [address] Right knee pain, unspecified chronicity Drive [address] [address] [phone] Social History Tobacco Use Types Packs/Day Years [...] chronicity documented in this encounter Care Teams Rn Imcu Relationship Specialty Start Date End Date Yamila English MD PCP - General 10/11/[address] [place] [address] documented as of this encounter
--- OUTSIDE RECORDS SUMMARY | 2022-07-31 15:52 | XMS_ITS | Clinical Summary ---
:1935 Author Organization [facility] Address [address] [place] [address] Care Team Providers Name Role Phone Yamila [...] for each transition of care or referral. [employer] Allergies Active Allergy Reactions Severity Noted Date [...] Address T ype Group Dates MEDICARE MEDICARE [id number] 2012-Prese Med icare nt [facility] [place] [facility] [place] [facility] [id number] 2012-[employer] [address] Care Teams Bulk Delivery Driver Relationship Specialty Start Date End Date Yamila English MD PCP - General 10/11/[address] [place] [address]
--- OUTSIDE RECORDS SUMMARY | 2022-07-31 15:52 | XMS_ITS | Encounter Summary ---
:1935 [facility] Address [address] [place] [address] Care Team Providers Name Role Phone Yamila English MD Primary Care Provider Reason for Referral Procedure/Equipment (Routine) - Incomplete Specialty Diagnoses / Procedures Referred By Contact Refer red To Contact Diagnoses Pain of right hip joint Right knee pain, unspecified chronicity Bryon Richardson MD Procedures XR Pelvis W Rt Lateral Hip [address] [place] [address] Referral ID Status Reason Start Date Expiration Date Visits V isits Requested Authorized [id number] Incomplete 05/02/2019 07/31/2020 1 1 Procedure/Equipment (Routine) - Incomplete Specialty Diagnoses / Procedures Referred By Contact Refer red To Contact Diagnoses Pain of right hip joint Right knee pain, unspecified chronicity Bryon Richardson MD Procedures XR Knee Lt 1-2 Views Comparison [address] [place] [address] Referral ID Status Reason Start Date Expiration Date Visits V isits Requested Authorized [id number] Incomplete 05/02/2019 07/31/2020 1 1 Procedure/Equipment (Routine) - Incomplete Specialty Diagnoses / Procedures Referred By Contact Refer red To Contact Diagnoses Pain of right hip joint Right knee pain, unspecified chronicity Bryon Richardson MD Procedures XR Knee Rt 3 Views [address] [facility] [place] [address] Referral ID Status Reason Start Date Expiration Date Visits V isits Requested Authorized [id number] Incomplete 05/02/2019 07/31/2020 1 1 Reason for Visit Reason Comments Knee Pain or Injury right Encounter Details Date Type Department Care Team Description 05/02/2019 Office Visit [facility] Bryon Richardson, [place] k pain radiating to right leg (Primary Dx); Urgent Care MD Pain of right hip joint; [address] [facility] [address] [facility] Right knee pain, unspecified chronicity; [place] [address] [address] [facility] [place] Posterior right knee pain; [phone] [id number] Hip injury, right, initial encounter [phone] (Wo rk) Social History Tobacco Use Types [...] in this encounter Patient Instructions Patient InstructionsLejagjit, Bretin Chaves, MA - 05/02/2019 4:[address] Bryon Richardson MD Sports & Orthopaedic Medicine [facility] Medication Requests: Prescriptions are not filled on Weekends or on Weekdays after 3:00PM For all medication refills: Request a refill using MyChart or contact your Pharmacy Acute [facility] Nurse Line: Please contact Acute Injury Clinic Nurse line for all medical requests and questions at [phone] MRI Scheduling: To schedule an MRI at [facility] please call [phone] Paperwork Requests: Questions regarding FMLA or disability paperwork please call [phone] Phone lines are answered 8AM to 5PM Friday - Friday Workers??? Compensation: Please contact our department for any Work Comp concerns at Email: [email or web address] Right osteo arthritis knee Make appointment for injection in may Right lumbar radiculopathy Call back for MRI documented in this encounter Progress Notes Bryon Richardson MD - 05/02/2019 12:00 PM CDT NAME: BLAKE SUTTON MR#: [id number] CSN: [id number] AUTHENTICATING CLINICIAN: Bryon Richardson MD CONFIRM #: [...] compartment degenerative changes with joint space narrowing, rkiv-kr-zyca articulation and osteophyte formation, similar. Mild joint [...] artment degenerative change with joint space narrowing, iipi-wh-hrnn articulation and osteophyte formation, similar. Mild joint [...] artment degenerative change with joint space narrowing, gczf-il-yhnr articulation and osteophyte formation, similar. Mild joint [...] artment degenerative change with joint space narrowing, awhl-wv-hokc articulation and osteophyte formation, similar. Mild joint [...] artment degenerative change with joint space narrowing, thvh-ji-qavb articulation and osteophyte formation, similar. Mild joint [...] chronicity documented in this encounter Care Teams Strategy Director Relationship Specialty Start Date End Date Yamila English MD PCP - General 10/11/[address] [place] [address] documented as of this encounter
--- OUTSIDE RECORDS SUMMARY | 2022-07-31 15:52 | XMS_ITS | Encounter Summary ---
:1935 Author Organization [facility] Address [address], [place] [address] Care Team Providers Name Role Phone Unavailable Primary Care Provider Unavailable Reason for Visit Reason Onset Date Comments Refill 02/13/2011 Encounter Details Date Type Department Care Team Description 02/13/2011 [facility]ill [facility] Bryon Villatoro MD Refill [facility] [address] [place] [address] [place] [address] [phone] Social History Tobacco Use Types Packs/Day Years Used Date Smoking Tobacco: Never Assessed Sex Assigned at Date Recorded Not on file documented as of this encounter Plan of Treatment Not on filedocumented as of this encounter Visit Diagnoses Not on filedocumented in this encounter
--- OUTSIDE RECORDS SUMMARY | 2022-07-31 15:52 | XMS_ITS | Clinical Summary ---
:1935 Author Organization [facility] [place] [address] Care Team Providers Name Role Phone Slava [...] Group MEDICARE PART B MEDICARE PART B [id number] 2002-Present ATTN: CLAIMS - HB USE ONLY HB ONLY [address] [place] [address] MEDICARE - PB MEDICARE PB [id number] 2002-Present ATT N: CLAIMS USE ONLY ONLY [address] [place] [address] [employer] [id number] 2015-Presen [address] [place] [address] Advance Directives Documents on File Type Date Recorded Patient Extrusion Die Corrector Explanati on Healthcare Directive 08/02/2021 08/02/2021 Latest Code Status on File Code Status Date Activated Date Inactivated Comments Full Code 01/08/2022 11:08 AM 01/08/2022 6:14 PM Code Status Discussion: Reviewed Preferences Care Teams Hydrogen Cell Tender Relationship Specialty Start Date End Date Slava Edwards MD PCP - General Family Practice 12/12/21 [address] [place] [address]
--- OUTSIDE RECORDS SUMMARY | 2022-07-31 15:52 | XMS_ITS | Encounter Summary ---
:1935 Author Organization [facility] Address [address] [place] [address] Care Team Providers Name Role Phone Yamila English MD Primary Care Provider Reason for Visit Procedure/Equipment (Routine) - Incomplete Specialty Diagnoses / Procedures Referred By Contact Refer red To Contact Diagnoses Pain of right hip joint Right knee pain, unspecified chronicity Bryon Richardson MD Procedures XR Knee Rt 3 Views [address] [place] [address] Referral ID Status Reason Start Date Expiration Date Visits V isits Requested Authorized [id number] Incomplete 05/02/2019 07/31/2020 1 1 Encounter Details Date Type Department Care Team Description 05/02/2019 Ancillary [facility] Bryon Richardson, Pain of right hip joint; Procedure [address] Right knee pain, unspecified chronicity Drive [address] [place] [address] [phone] Social History Tobacco Use Types Packs/Day Years [...] artment degenerative change with joint space narrowing, rgiv-pf-eees articulation and osteophyte formation, similar. Mild joint [...] artment degenerative change with joint space narrowing, cavt-fb-dgua articulation and osteophyte formation, similar. Mild joint [...] artment degenerative change with joint space narrowing, ycth-mo-qmny articulation and osteophyte formation, similar. Mild joint [...] artment degenerative change with joint space narrowing, qkmj-rh-hwjk articulation and osteophyte formation, similar. Mild joint [...] chronicity documented in this encounter Care Teams Project Asst Relationship Specialty Start Date End Date Yamila English MD PCP - General 10/11/[address] [place] [address] documented as of this encounter
--- OUTSIDE RECORDS SUMMARY | 2022-07-31 15:52 | XMS_ITS | Encounter Summary ---
:1935 Author Organization [facility] Address [address] [place] [address] Care Team Providers Name Role Phone Yamila English MD Primary Care Provider Encounter Details Date Type Department Care Team Description 10/11/2013 Imaging [facility] Knee pain [address] [place], [place] [address] Social History Tobacco Use Types Packs/Day Years Used Date Smoking Tobacco: Never Assessed Sex Assigned at Date Recorded Not on file documented as of this encounter Plan of Treatment Not on filedocumented as of this encounter Procedures Procedure Name Priority Date/Time Associated Comments Diagnosis XR KNEE LT 1-2 VIEWS Routine 10/11/2013 12:05 PM Knee pain Results for this COMPARISON PIPE ORGAN TECHNICIAN procedure are i n the results section. XR KNEE RT 3 VIEWS Routine 10/11/2013 12:05 PM Knee pain Re sults for this PIPE ORGAN TECHNICIAN procedure are i n the results section. documented in this encounter Results XR Knee Lt 1-2 Views Comparison (10/11/2013 12:05 PM PIPE ORGAN TECHNICIAN) Anatomical Region Laterality Modality Lower Extremity, Knee Other Specimen (Source) Anatomical Location Collection Method / Collectio n Time Received Time / Laterality Volume Narrative 10/14/2013 8:05 PM PIPE ORGAN TECHNICIAN Three views of the right knee: INDICATION: [...] Knee Rt 3 Views (10/11/2013 12:05 PM PIPE ORGAN TECHNICIAN) Anatomical Region Laterality Modality Lower Extremity, Knee Other Specimen (Source) Anatomical Location Collection Method / Collectio n Time Received Time / Laterality Volume Narrative 10/14/2013 8:05 PM PIPE ORGAN TECHNICIAN Three views of the right knee: INDICATION: [...] leg documented in this encounter Care Teams Emergency Communications Dispatcher Relationship Specialty Start Date End Date Yamila English MD PCP - General 10/11/[address] [place] [address] documented as of this encounter
--- NOTE | 2022-07-31 17:26 | P.IMHP_ITS ---
Hospitalist- H&P: HPI History of Present Illness Time Seen by Provider: 15:30 Date Seen: 07/31/22 Chief complaint: Low heartrate Narrative: Henok Chery is a 87 year old man who presents with the 24-36 hour history nausea, increasing dyspnea with exertion, and heart rates at home measured by his in the upper 20s to mid 30s. While bradycardia is not entirely new to the patient, he has had bouts of this often on for some time, in fact he has had bradycardia and tachycardia, this episode is not resolving as it has in the past and thus his brings him to the emergency department for further assessment. He denies any chest heaviness or pressure. Denies any syncope or near-syncope. Acknowledges increasing dyspnea with exertion over the last day or so. Denies dyspnea at rest. Denies paroxysmal nocturnal dyspnea or orthopnea. Denies cough. Has had intermittent nausea without vomiting, which is new. Denies abdominal pain. Denies constipation or diarrhea. Denies palpitations. Denies fevers, rigors, or diaphoresis. Denies claudication. Has struggled with lower extremity edema as well as edema in the scrotum and penis. Ordinarily takes furosemide 20 mg twice daily. According to the she has received instructions from the patient's doctor that she can give him an extra furosemide when he has increasing edema either in the lower extremities or the scrotum or penis. She did give him an extra dose of furosemide last night. She noticed increased urine output. He has a nephrostomy tube on the left with a bag and has noted increased urine output with the increased dose of the furosemide. Sometimes is able to produce urine through the penis as well. Denies dysuria, hematuria, urgency, frequency. Review of Systems Status of ROS: Reports: 10 or more systems reviewed and unremarkable except as noted in History and below Narrative: In addition to what I specify above, it is important to note that patient does not speak much when I attempt to speak with him. He looks to his to do most of the speaking for him. acknowledges that his cognition is not the same as what it used to be. She is not able to give me a good timeline on this although it has been sometime. She states for some time he has had sundowning at night. When either she or another family member is with him [place] are able to redirect him when he does have the sundowning episodes. She mentions all of this matter of factly, in such a manner as to suggest this is been going on for some time in the family has simply adapted. Recently found to have a bladder cancer and received palliative radiation therapy for the same. She is upset about the clinicians at the [facility] in [place], [place], indicating that he is not a candidate for other additional interventions including surgery and otherwise. She tells me that he has a repeat, follow-up assessment in August of this year For both the bladder cancer as well as the nephrostomy tube cares. No focal motor neurologic deficits. Ambulates with assistance and the use of an assistive device. Need support with a lot of decisions and self cares. Family has been meeting these needs and is seemingly willing to continue to do so. Patient able to clearly indicate that his is his power of divorce attorney for health. He and his indicate that he has a DNR DNI resuscitation status in the event of cardiopulmonary demise. 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 Sundowning Type 2 diabetes mellitus Unsteady gait UTI (urinary tract infection) Wide-complex tachycardia Social History Highest level of school completed/degree received: 12th grade, no diploma Smoking Status: Never smoker Do you use any of these nicotine containing products: None Second hand tobacco smoke exposure: No How often do you have a drink containing alcohol: monthly or less How many standard drinks containing alcohol do you have on a typical day: 1 or 2 How often do you have six or more drinks on one occasion: Never AUDIT-C Alcohol total score: 1 Non-prescribed substance use: denies use Caffeine: Yes (1 pop) service: No Meds Home Medications and Allergies Home Medications Medication Instructions Recorded Confirmed Type acetaminophen 325 mg tablet 650 mg PO PRN 05/08/22 07/15/22 History acetaminophen 650 mg 1,300 mg PO BID 05/08/22 07/15/22 History tablet,extended release amlodipine 2.5 mg tablet 2.5 mg PO DAILY 05/08/22 07/31/22 History aspirin 81 mg tablet,delayed 81 mg PO QDAY 05/08/22 07/31/22 History release (Adult Aspirin Regimen) bupropion HCl 300 mg 24 hr tablet, 300 mg PO DAILY 05/08/22 07/31/22 History extended release cholecalciferol (vitamin D3) 50 2,000 unit PO .Every 48 Hours 05/08/22 07/31/22 History mcg (2,000 unit) tablet glipizide 10 mg tablet, extended 10 mg PO DAILY 05/08/22 07/31/22 History release 24 hr nitroglycerin 0.4 mg sublingual 0.4 mg sublingual PRN 05/08/22 07/15/22 History tablet omeprazole 20 mg tablet,delayed 20 mg PO QDAY 05/08/22 07/15/22 History release finasteride 5 mg tablet 5 mg 06/27/22 07/15/22 History methocarbamol 500 mg tablet mg 06/27/22 07/15/22 History tamsulosin 0.4 mg capsule 0.4 mg PO 06/27/22 07/15/22 History Allergies Allergy/AdvReac Type Severity Reaction Status Date / Time penicillin V Allergy Unknown Verified 07/31/22 10:38 Beta Best AdvReac Intermediate Bradycardia Uncoded 07/15/22 10:49 Exam Narrative: Exam Narrative: He appears comfortable at rest. Has no acute distress. Very hard of hearing. Does not engage in substantive dialogue or conversation, seemingly because of decreased ability to comprehend the nature of the questions even though they are very directed in simple. It seems that his cognitive impairment is greater than what is delineated in his medical records. indicates this is not new or different for him today. Alert, oriented to self, place, not so much to time or situation. Has a blank stare. Looks to his to speak on his behalf most of the time. Hardly ever answers my questions directly but rather looks at his as if to ask her to answer on his behalf. Anxious to go home. Knows he is not home. Asks more than once why he cannot return home. Needs to be reminded that he is not doing well and that he is in the hospital. Vision is preserved. His dentition is in fair repair. Midline trachea. Normal thyroid. Sitting upright he has jugular venous distention snf up his neck. Has hepatojugular reflux while sitting up. No carotid bruits. No lymphadenopathy. Decreased breath sounds in the bases otherwise lungs are clear to auscultation without wheezing, rhonchi, or rales. No CVA tenderness. Has a nephrostomy tube on the left that is draining clear urine. Nephrostomy insertion site is clean and dry. Heart tones are bradycardic. Heart tones are distant. Regular rhythm with occasional extra beat. No murmur, gallop, or rub. PMI is not laterally displaced. Abdomen with active bowel sounds, soft, nontender. Ambulates with wheeled walker with standby assist of his . direct somewhere to walk. Has increasing dyspnea with walking efforts. Able to walk to the bathroom and then when done in the bathroom he walks back to the exam room in the emergency department. Has edema pedally, pretibially, in his thighs, in scrotum and penis, and presac ral area of the back. Skin is dry and intact. Areas of ecchymosis of lower extremities number extremities. No jaundice or icterus. No cyanosis. No rashes. Telemetry demonstrates ventricular bigeminy. As I palpate his pulses, he is perfusing about 50-75% of the electrical complexes. Const: Vital Signs, click to edit/add: Vital Signs - 24 hr 07/31/22 10:28 07/31/22 11:15 07/31/22 11:30 Temperature 97.5 F L Pulse Rate [Right Pulse Oximeter] 39 L 79 Pulse Rate [Right Radial] Respiratory Rate 16 24 Blood Pressure [Ri ght Arm] Blood Pressure [Ri ght Upper Arm] 118/55 L 96/70 Pulse Oximetry 85 L 84 L 94 Oxygen Delivery Me thod Room Air Room Air 07/31/22 11:45 07/31/22 12:00 07/31/22 12:38 Temperature Pulse Rate [Right Pulse Oximeter] 73 82 80 Pulse Rate [Right Radial] Respiratory Rate 23 22 22 Blood Pressure [Ri ght Arm] Blood Pressure [Ri ght Upper Arm] 119/60 113/55 L 122/106 H Pulse Oximetry 23 L 95 80 L Oxygen Delivery Me thod Room Air Room Air Room Air 07/31/22 12:50 07/31/22 13:00 07/31/22 13:07 Temperature Pulse Rate [Right Pulse Oximeter] 80 78 71 Pulse Rate [Right Radial] Respiratory Rate 21 25 H 22 Blood Pressure [Ri ght Arm] Blood Pressure [Ri ght Upper Arm] 119/74 78/58 L 115/62 Pulse Oximetry 95 96 95 Oxygen Delivery Me thod Room Air Room Air Room Air 07/31/22 16:22 07/31/22 13:30 07/31/22 14:00 Temperature 97.2 F L Pulse Rate [Right Pulse Oximeter] 38 L 78 Pulse Rate [Right Radial] 39 L Respiratory Rate 22 22 Blood Pressure [Ri ght Arm] 124/65 Blood Pressure [Ri ght Upper Arm] 107/91 H 114/87 Pulse Oximetry 95 95 93 Oxygen Delivery Me thod Room Air 07/31/22 14:30 07/31/22 15:00 07/31/22 16:55 Temperature Pulse Rate [Right Pulse Oximeter] 39 L 38 L Pulse Rate [Right Radial] Respiratory Rate 22 20 Blood Pressure [Ri ght Arm] Blood Pressure [Ri ght Upper Arm] 122/94 H 120/70 Pulse Oximetry 95 92 95 Oxygen Delivery Me thod 07/31/22 17:00 Temperature Pulse Rate [Right Pulse Oximeter] Pulse Rate [Right Radial] Respiratory Rate 22 Blood Pressure [Ri ght Arm] Blood Pressure [Ri ght Upper Arm] Pulse Oximetry 95 Oxygen Delivery Me thod Room Air Hospitalist - H&P: Result Labs Labs: Short CBC 07/31/22 Range/Units 11:35 WBC 8.07 (4.50-11.00) K/uL Hgb 8.0 L (13.5-17.5) gm/dL Hct 27.4 L (37.0-53.0) % Plt Count 490 H (140-440) K/uL BMP 07/31/22 11:35 Sodium 136 Potassium 4.7 Chloride 101 Carbon Dioxide 25 BUN 45 H Creatinine 1.4 Glucose 157 H Calcium 8.8 Liver Function 07/31/22 Range/Units 11:35 Total Bilirubin 0.6 (0.1-1.5) mg/dL AST 22 (12-35) U/L ALT 23 (4-50) U/L Alkaline Phosphatase 132 (40-150) U/L Albumin 4.0 (3.3-5.0) g/dL ECG Attestation: I personally reviewed and interpreted this ECG as follows: ECG interpretation date: 07/31/22 ECG interpretation time: 16:00 Interpretation: Ventricular bigeminy. Electrical rate of 88 beats per minute. Imaging Chest x-ray: Attestation: I have reviewed the pertinent imaging results. Radiologist's impression: No acute process. I note that he does indeed have mild cardiomegaly. Assessment and Plan Assessment and plan (1) Ventricular bigeminy: Status: Acute (2) Bradycardia: Problem comment: Only peripheries in every other beat when he has ventricular bigeminy. This seems to be exacerbating his heart failure. Status: Acute (3) Acute on chronic congestive heart failure: Status: Acute (4) Tachy-reyna syndrome: Status: Acute (5) Ischemic cardiomyopathy: Status: Acute (6) Congestive heart failure due to cardiomyopathy: Status: Acute (7) Coronary artery disease: Status: Acute (8) Combined systolic and diastolic congestive heart failure, NYHA class 3: Status: Acute (9) Combined systolic and diastolic ACC/AHA stage C congestive heart failure: Status: Acute (10) Cardiomyopathy due to hypertension: Status: Acute (11) Hydronephrosis of left kidney: Problem comment: Left nephrostomy in place Status: Acute (12) Bladder cancer: Status: Acute (13) Type 2 diabetes mellitus: Status: Acute (14) Stage 3a chronic kidney disease: Status: Acute (15) Unsteady gait: Status: Acute (16) At risk for falls: Status: Acute (17) Cognitive deficit with impaired psychomotor function: Status: Acute (18) Hypertension: Status: Acute (19) Polycythemia vera: Problem comment: Treated with hydroxyurea. Status: Acute (20) Anemia: Problem comment: At least in part due to chronic hydroxyurea, but may be multifactorial Status: Acute Plan 1. Our emergency department physician's have been trying to arrange for patient to be transported to a tertiary care medical facility that can provide him with a level of cares that he needs including the possibility of a permanent pacemaker implantation. There are literally no beds available across the entire state [facility] at this time that are able to provide him with this level of service and care. [facility], [place], [place], has place the patient on a waiting list to be admitted to their hospital. Dr. Ortiz, insecticide mixer, has tentatively accepted the patient in transfer when a bed becomes available. 2. Meanwhile he is admitted to our hospital for close monitoring. Will be ready with the possibility of applying external pace maker pads and such should that be required. Should that indeed be required than his conditional become more critical at which time we could potentially arrange for transfer to hospital that has more critical beds available at that time. 3. Continue with increased diuresis efforts while in hospital. 4. Patient is on a suboptimal medication regimen for his cardiomyopathy and heart failure. Reportedly there has been potential complications associated with the use of various medications in the past. His primary care physician and insecticide mixer have try to work with him and his in this regard but have been met with resistance. Should we be able to get a permanent pacemaker implantation we might be able to introduce beta blockers again subsequently. One of the previous reported adverse consequences was bradycardia with use of even low-dose beta-blockers. His insecticide mixer has recommended initiation of low-dose YISSEL-inhibitor as well. 5. Continue with efforts to keep him stable in so far as his bladder cancer and left hydronephrosis. Has follow-up at [facility] in this regard. 6. Consider additional in-home services to assist family with meeting his needs given his fairly significant cognitive and psychomotor impairments. 7. Sliding scale insulin while in hospital. 8. Reviewed the above with the patient and his . Patient does not have much to say other than he agrees with his . is agreeable with above stated plans and recommendations. 9. Will hold his hydroxyurea while in hospital at this time.
[2022-07-31] MEDS: FUROSEMIDE 20 MG TABLET PO (18:26)
[2022-07-31 18:41] LABS: Glucose, Point-of-Care* 119 mg/dl (60-115)
--- NOTE | 2022-07-31 19:31 | PC.NURSE ---
End of shift. pt was admitted from ED via cart. Pt HR is 30-40. no pain. he is on 2L nc he is SOB. he is up with walker and 02 0n @ 2L nc. SL is patent. he is eating and drinking, he has a urostomy it had 300. he straights cath 2 times a day. he is waiting to transfer to [place] for a pace maker.
[2022-08-01] VITALS (12 sets, daily range): BP systolic 106–119; BP diastolic 53–96; PULSE 36–87; RESP 18–24; TEMP 36.4–36.7; O2SAT 92–97
--- NOTE | 2022-08-01 06:39 | PC.NURSE ---
Shift note: The pt has been pleasant and cooperative. He has been denying chest pain , dizzy and other distress throughout the shift. The pt has been on 2L of oxygen via NC with Spo2 in the 90s. HR gloria been in 30s, 40s , and 50s. Nephrostomy tube site has been covered with dressing ; C/D/I. The pt is urinating small amount. He stated the he will self straight cath later in the morning. Pt's daughter in law present at the bedside throughout the night ; appeared loving and supporting the pt.
[2022-08-01] MEDS: OMEPRAZOLE 20 MG CAPSULE DR PO (07:04)
[2022-08-01 09:37] LABS: HCO3 VBG 31 mmol/L (21-28); Ionized Calcium* 1.16 mmol/L (1.11-1.30); PCO2 VBG 52 mmHG (40-50)
[2022-08-01 09:46] LABS: Basophils Absolute Auto 0.05 K/uL (0.00-0.30); Basophils Percent Auto 0.7 % (0.0-3.0); Eosinophils Absolute Auto 0.12 K/uL (0.00-0.50); Eosinophils Percent Auto 1.7 % (0.0-7.0); Hematocrit 26.3 % (37.0-53.0); Immature Granulocytes Abs Auto 0.03 K/uL (0.00-0.30); Lymphocytes Percent Auto 3.5 % (20-44); Mean Corpuscular HGB Conc 29 gm/dL (32-36); Mean Corpuscular Hemoglobin 30 pg (26-34); Mean Corpuscular Volume 105 fL (80-100); Monocytes Percent Auto 4.4 % (0.0-11.0); Neutrophils Percent Auto 89.3 % (42.0-72.0); Platelet Count* 439 K/uL (140-440); RDW Coefficient of Variation % 19.7 % (11.5-15.5); White Blood Count* 7.22 K/uL (4.50-11.00)
[2022-08-01 09:50] LABS: Hemoglobin* 7.6 gm/dL (13.5-17.5); Slide Review Reflex Yes
[2022-08-01] MEDS: AMLODIPINE 5 MG TABLET 2.5 MG PO (10:00)
[2022-08-01] MEDS: HYDROXYUREA 500 MG CAPSULE 1500 MG PO (10:00)
[2022-08-01] MEDS: SENNOSIDES/DOCUSATE TABLET 1 TAB PO (10:00)
[2022-08-01] MEDS: FUROSEMIDE 20 MG TABLET PO (10:01)
[2022-08-01] MEDS: buPROPion XL 150 MG TABLET 300 MG PO (10:01)
[2022-08-01] MEDS: FINASTERIDE 5 MG TABLET PO (10:01)
[2022-08-01] MEDS: TAMSULOSIN HCL 0.4 MG CAPSULE PO (10:02)
[2022-08-01] MEDS: glipiZIDE XL 5 MG TAB 10 MG PO (10:02)
[2022-08-01 10:03] LABS: Chloride* 100 mmol/L (96-114)
[2022-08-01 10:04] LABS: Albumin* 3.9 g/dL (3.3-5.0); Sodium* 137 mmol/L (135-149)
[2022-08-01 10:06] LABS: Creatinine* 1.6 mg/dL (0.5-1.5); Est. Creatinine Clearance* 33.75; Estimated Glomerular Filt Rate 42 ml/min
[2022-08-01 10:07] LABS: Alanine Aminotransferase* 21 U/L (4-50); Alkaline Phosphatase* 124 U/L (40-150); Aspartate Amino Transferase* 21 U/L (12-35); Bilirubin Total* 0.8 mg/dL (0.1-1.5); Blood Urea Nitrogen* 44 mg/dL (7-30); Carbon Dioxide* 29 mmol/L (20-32); Glucose* 94 mg/dL (60-115); Total Protein* 6.3 g/dL (6.0-8.3)
[2022-08-01 10:08] LABS: Magnesium* 2.2 mg/dL (1.5-2.6)
[2022-08-01 10:14] LABS: C Reactive Protein* < 0.5 mg/dL (0.5-1.0)
[2022-08-01 10:17] LABS: Slide Review Acceptable Review (Acceptable)
[2022-08-01 10:21] LABS: Troponin I* < 0.01 ng/mL (0.01-0.04)
[2022-08-01 10:24] LABS: Procalcitonin* 0.17 ng/mL (<0.50)
[2022-08-01] MEDS: ACETAMINOPHEN 325 MG TABLET 650 MG PO (11:15)
[2022-08-01 11:51] LABS: INR 1.35 (0.91-1.10); Prothrombin Time 17.1 Seconds
[2022-08-01] MEDS: FUROSEMIDE 10 MG/ML inj 40 MG IVP (12:03)
--- NOTE | 2022-08-01 13:59 | P.IMPN_ITS ---
Progress Note: A&P Assessment and plan (1) Combined systolic and diastolic congestive heart failure, NYHA class 3: Problem details: Ongoing diuresis, however he is developing an JAMILAH. This is not unexpected. A balance between the stress on the kidneys verses supporting his cardiovascular status is tenuous. We are awaiting transfer to the cardiology service, [facility], for implantable pacemaker and or further imaging and testing. Status: Acute (2) Bradycardia: Problem details: Only perfuses in every other beat when he has ventricular bigeminy. This seems to be exacerbating his heart failure. Status: Acute (3) Ventricular bigeminy: Problem details: Noted. Status: Acute (4) Tachy-reyna syndrome: Problem details: Symptomatic leak, clinically worsened. Status: Acute (5) Ischemic cardiomyopathy: Problem details: Known. Status: Acute (6) Congestive heart failure due to cardiomyopathy: Problem details: Known. Status: Acute (7) Coronary artery disease: Status: Acute (8) Hydronephrosis of left kidney: Problem details: Left nephrostomy in place Status: Acute (9) Bladder cancer: Status: Acute (10) Type 2 diabetes mellitus: Status: Acute (11) Stage 3a chronic kidney disease: Status: Acute (12) Unsteady gait: Status: Acute (13) At risk for falls: Status: Acute (14) Cognitive deficit with impaired psychomotor function: Status: Acute (15) Hypertension: Status: Acute (16) Polycythemia vera: Problem details: Treated with hydroxyurea. Status: Acute (17) Anemia: Problem details: At least in part due to chronic hydroxyurea, but may be multifactorial Status: Acute Subjective Date Seen: 08/01/22 Interval history: Daily Progress Note - Hospital Medicine Day #: 2 CC: bradycardia; CHF; waiting for [facility] to have a bed. OVERNIGHT UPDATES FROM STAFF & MED, LAB, IMAGING UPDATES Diuresing is going well with IV furosemide. The patient is down two kg. He is able to walk with his walker. Is on oxygen maintaining sats between 88 90%. No syncope. His heart rate has been in the 40s. His hemoglobin is dropping. He is being transfused today. His blood pressure is staying above 100 systolic. His pulse has ranged 38-48. He is on 2 L per nasal cannula. CBC reflects a hemoglobin dropping from 8-7.6. Hematocrit is 26 MCV 105 Platelet count is normal, white blood cell count is normal INR 1.35 PH is normal this morning Creatinine is climbing to 1.6 from his baseline 1.0, BUN is elevated at 44. Rest of his electrolytes are stable. His troponin remains undetectable. His CRP is undetectable. His BNP is increasing from [id number], this is not unexpected. Review of Systems: See subjective Cardiac: No new chest pain/pressure/palpitations. Respiratory: Stable severe dyspnea. GI: No abdominal bloating Objective: Looks tired. He does not say much but did chronic couple of jokes. He defers to his for all explanations and talking. Vitals: see above Lungs: Scattered crackles Cardiac: Regular bradycardic Disposition/Potential discharge - Likely to transfer to [facility] for implantable pacemaker Total time is 35 minutes with greater than 50% spent in counseling and coordination of care. Exam Const: Vital Signs, click to edit/add: Vital Signs - 24 hr 07/31/22 16:22 07/31/22 14:00 07/31/22 14:30 Temperature 97.2 F L Pulse Rate Pulse Rate [Right Pulse Oximeter] 78 39 L Pulse Rate [Right Radial] 39 L Respiratory Rate 22 22 22 Blood Pressure [Ri ght Arm] 124/65 Blood Pressure [Ri ght Upper Arm] 114/87 122/94 H Pulse Oximetry 95 93 95 Oxygen Delivery Me thod Room Air Oxygen Flow Rate 07/31/22 15:00 07/31/22 16:55 07/31/22 17:00 Temperature Pulse Rate Pulse Rate [Right Pulse Oximeter] 38 L Pulse Rate [Right Radial] Respiratory Rate 20 22 Blood Pressure [Ri ght Arm] Blood Pressure [Ri ght Upper Arm] 120/70 Pulse Oximetry 92 95 95 Oxygen Delivery Me thod Room Air Oxygen Flow Rate 07/31/22 17:38 07/31/22 17:40 07/31/22 17:40 Temperature 97.2 F L Pulse Rate 35 L Pulse Rate [Right Pulse Oximeter] Pulse Rate [Right Radial] 40 L Respiratory Rate 18 Blood Pressure [Ri ght Arm] 124/65 Blood Pressure [Ri ght Upper Arm] Pulse Oximetry 94 94 Oxygen Delivery Me thod Nasal Cannula Nasal Cannula Oxygen Flow Rate 2.0 2.0 07/31/22 17:43 07/31/22 17:47 07/31/22 17:47 Temperature Pulse Rate 35 L Pulse Rate [Right Pulse Oximeter] Pulse Rate [Right Radial] 35 L Respiratory Rate 18 Blood Pressure [Ri ght Arm] 121/66 Blood Pressure [Ri ght Upper Arm] Pulse Oximetry 93 94 Oxygen Delivery Me thod Nasal Cannula Oxygen Flow Rate 2.0 07/31/22 17:47 07/31/22 18:37 07/31/22 19:00 Temperature 98.1 F Pulse Rate Pulse Rate [Right Pulse Oximeter] Pulse Rate [Right Radial] 40 L 41 L Respiratory Rate 18 18 Blood Pressure [Ri ght Arm] 123/59 L 115/60 Blood Pressure [Ri ght Upper Arm] Pulse Oximetry 93 93 93 Oxygen Delivery Me thod Nasal Cannula Nasal Cannula Nasal Cannula Oxygen Flow Rate 2.0 2.0 2.5 07/31/22 21:45 08/01/22 01:29 08/01/22 01:29 Temperature 97.8 F Pulse Rate Pulse Rate [Right Pulse Oximeter] Pulse Rate [Right Radial] 42 L 42 L Respiratory Rate 18 18 18 Blood Pressure [Ri ght Arm] 106/76 Blood Pressure [Ri ght Upper Arm] Pulse Oximetry 93 94 Oxygen Delivery Me thod Nasal Cannula Nasal Cannula Oxygen Flow Rate 2 2 08/01/22 01:29 08/01/22 02:05 08/01/22 02:05 Temperature Pulse Rate 87 Pulse Rate [Right Pulse Oximeter] Pulse Rate [Right Radial] Respiratory Rate 18 Blood Pressure [Ri ght Arm] Blood Pressure [Ri ght Upper Arm] Pulse Oximetry 94 94 Oxygen Delivery Me thod Nasal Cannula Oxygen Flow Rate 2 08/01/22 03:30 08/01/22 05:24 08/01/22 07:00 Temperature 97.8 F 97.6 F Pulse Rate Pulse Rate [Right Pulse Oximeter] Pulse Rate [Right Radial] 55 L 40 L Respiratory Rate 24 20 20 Blood Pressure [Ri ght Arm] 119/61 118/96 H Blood Pressure [Ri ght Upper Arm] Pulse Oximetry 94 94 97 Oxygen Delivery Me thod Nasal Cannula Nasal Cannula Nasal Cannula Oxygen Flow Rate 2 2 3 08/01/22 10:00 08/01/22 07:51 08/01/22 11:00 Temperature Pulse Rate 67 Pulse Rate [Right Pulse Oximeter] Pulse Rate [Right Radial] Respiratory Rate Blood Pressure [Ri ght Arm] Blood Pressure [Ri ght Upper Arm] Pulse Oximetry 97 93 Oxygen Delivery Me thod Nasal Cannula Oxygen Flow Rate 2 08/01/22 07:00 08/01/22 11:00 Temperature 97.8 F Pulse Rate Pulse Rate [Right Pulse Oximeter] Pulse Rate [Right Radial] 40 L 38 L Respiratory Rate 20 18 Blood Pressure [Ri ght Arm] 110/63 Blood Pressure [Ri ght Upper Arm] Pulse Oximetry 92 Oxygen Delivery Me thod Nasal Cannula Oxygen Flow Rate 2 Labs Labs: Laboratory Results - last 24 hr 07/31/22 08/01/22 08/01/22 18:34 09:33 09:33 WBC 7.22 RBC 2.50 L Hgb 7.6 L* Hct 26.3 L MCV 105 H MCH 30 MCHC 29 L RDW Coeff of Christel 19.7 H Plt Count 439 Neut % (Auto) 89.3 H Lymph % (Auto) 3.5 L [place] % (Auto) 4.4 Eos % (Auto) 1.7 Baso % (Auto) 0.7 Neut # (Auto) 6.40 Lymph # (Auto) 0.30 L [place] # (Auto) 0.30 Eos # (Auto) 0.12 Baso # (Auto) 0.05 Abs Immat Gran (auto) 0.03 Diff Slide Review Acceptable Review INR VBG pH VBG pCO2 VBG pO2 VBG HCO3 Sodium 137 Potassium 4.0 Chloride 100 Carbon Dioxide 29 BUN 44 H Creatinine 1.6 H Estimated Creat Clear 33.75 Estimated GFR 42 Glucose 94 Calcium 9.0 Ionized Calcium Nikhil Magnesium 2.2 Total Bilirubin 0.8 AST 21 ALT 21 Alkaline Phosphatase 124 Troponin I < 0.01 L C-Reactive Protein < 0.5 L Total Protein 6.3 Albumin 3.9 Procalcitonin 0.17 POC Glucose 119 H 08/01/22 08/01/22 09:33 11:26 WBC RBC Hgb Hct MCV MCH MCHC RDW Coeff of Christel Plt Count Neut % (Auto) Lymph % (Auto) [place] % (Auto) Eos % (Auto) Baso % (Auto) Neut # (Auto) Lymph # (Auto) [place] # (Auto) Eos # (Auto) Baso # (Auto) Abs Immat Gran (auto) Diff Slide Review INR 1.35 H VBG pH 7.380 VBG pCO2 52 H VBG pO2 28.0 VBG HCO3 31 H Sodium Potassium Chloride Carbon Dioxide BUN Creatinine Estimated Creat Clear Estimated GFR Glucose Calcium Ionized Calcium Nikhil 1.16 Magnesium Total Bilirubin AST ALT Alkaline Phosphatase Troponin I C-Reactive Protein Total Protein Albumin Procalcitonin POC Glucose
--- NOTE | 2022-08-01 15:44 | PC.NURSE ---
End of shift-- Cooperative, alert patient is oriented to person and place and stated that it was 2019. VSS, though bradycardic with HR as low as 30s, and pt is afebrile. SPO2 maintained >90% with 2L O2 per n.c. He denied any pain, chest pain or dizziness. Pt did become mildly SOB with exertion. Telemetry shows NSR with bigeminal PVCs, though at times PVCs are consecutive. LS clear but diminished. He denied nausea and ate 75-100% of a regular diet for 2 meals today without difficulty. Blood glucose 97 and 129 and no additional insulin was given. Nephrostomy tube is patent and drained adequate amounts of clear, yellow urine today. Site cares provided by patient's this morning at bedside. Pt was also straight cathed for an additional 200ml. He was up to the chair, BR and for a short walk with SBA and tolerated it well. Nurse to nurse report given to Aby at [place] and also to CLARA Killian and all questions were answered.
--- NOTE | 2022-08-01 17:16 | PC.NURSE ---
Addendum entered by Maria D Pittman RN 08/01/22 19:08: Blood transfusion continuing upon transfer. Original Note: Discharge Summary: Patient pleasant and cooperative. Afebrile. Denies pain. O2 sats 94% on 2L NC. Blood transfusion started at 1555. No s/s of transfusion reaction noted. Straight cath x1 prior to transfer per patient request. Patient transferred to [facility] at [address] [facility] with all personal belongings accompanied by family. Updated Aby at [place] when patient departed.
== END 2022-08-01 16:30 | disposition short-term general hospital (02) | DRG 291 ==
LOC: ED 14:14 → MEDSURG 15:42
PROVIDERS: Family Medicine; Admitting Provider Internal Medicine; Emergency Provider Family Medicine; PCP Family Medicine; Visit Provider Internal Medicine
DX: I13.0 Hypertensive heart and chronic kidney disease with heart failure and stage 1 through stage 4 chronic kidney disease, or unspecified chronic kidney disease (principal); I50.43 Acute on chronic combined systolic (congestive) and diastolic (congestive) heart failure; N13.30 Unspecified hydronephrosis; C67.9 Malignant neoplasm of bladder, unspecified; N18.31 Chronic kidney disease, stage 3a; I25.10 Atherosclerotic heart disease of native coronary artery without angina pectoris; Z93.6 Other artificial openings of urinary tract status; R00.8 Other abnormalities of heart beat; I49.5 Sick sinus syndrome; I08.1 Rheumatic disorders of both mitral and tricuspid valves; R26.81 Unsteadiness on feet; D45 Polycythemia vera; D64.9 Anemia, unspecified; R41.843 Psychomotor deficit; M10.9 Gout, unspecified; F32.4 Major depressive disorder, single episode, in partial remission; Z85.828 Personal history of other malignant neoplasm of skin
CPT/HCPCS: 36415; 36430; 51702; 71045; 80053; 82330; 82803; 82947; 83605; 83735; 83880; 84145; 84484; 85025; 85610; 86140; 86850; 86900; 86901; 86922; 87502; 87634; 87635; 93005; 94761; 99284; 99285; A9270; J1940; P9016; S0176

== ENCOUNTER 2022-08-01 16:12 | Outpatient (CLI) | payer MEDICARE, OTHER, SELFPAY ==
--- OUTSIDE RECORDS SUMMARY | 2022-09-02 13:15 | XMS_ITS | Encounter Summary ---
:1935 Author Organization [facility] Address [address] [place] [address] Care Team Providers Name Role Phone Elsewhere, Pcp Primary Care Provider Unavailable Reason for Referral Outpatient (Routine) - Authorized Specialty Diagnoses / Procedures Referred By Contact Refer red To Contact Radiology Diagnoses Malignant Neoplasm Of Bladder (HCC) Bassam Broderick M.D. [facility] Procedures IR Nephrostomy Tube Exchange Left [address] [place] [address] Referral ID Status Reason Start Date Expiration Date Visits V isits Requested Authorized [id number] Authorized 08/22/2022 08/22/2023 1 1 utpatient (Routine) - Authorized Specialty Diagnoses / Procedures Referred By Contact Refer red To Contact Urology Bassam Broderick M.D . [facility] [address] [place] [address] Referral ID Status Reason Start Date Expiration Date Visits V isits Requested Authorized [id number] Authorized 08/22/2022 08/21/2025 1 1 utpatient (Routine) - Authorized Specialty Diagnoses / Referred By Contact Referred To Contact Procedures Cardiovascular Diseases / Diagnoses Malignant Neoplasm Of Bladder (HCC) Bassam Broderick [facility] Cardiovascular Disease M.D. [address] [place] [address] Referral ID Status Reason Start Date Expiration Date Visits V isits Requested Authorized [id number] Authorized 08/22/2022 08/22/2023 1 1 Reason for Visit Outpatient (Routine) - Closed Specialty Diagnoses / Procedures Referred By Contact Refer red To Contact Urology Claude Loaiza M PAS, PJluisAJluis-Aram. [facility] [address] [place] [address] Referral ID Status Reason Start Date Expiration Date Visits Requ ested Visits Authorized [id number] Closed 06/14/2022 06/13/2025 1 1 Encounter Details Date Type Department Care Team Description 08/22/2022 Virtual Visit Department of Urology Gibran Ruvalcaba Neoplasm Of [place] M[place]. Bladder (HCC) (Primary [place] [address] [facility] Dx) [address] [place] [phone] Social History Tobacco Use Types Packs/Day Years [...] you attend jewish or Patient refused 2021 jew services? 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 - 08/22/2022 1:00 PM CDT SUBJECTIVE CHIEF COMPLAINT/REASON FOR VISIT No chief complaint on file. HISTORY OF PRESENT ILLNESS Consult conducted via real-time audio/video technology by Bassam Broderick MD in [facility] to the patient in patient's home. Mr. Chery is an 87 year old male with high-grade urothelial carcinoma of the bladder who I spoketo on the phone today regarding management of his left UPJ obstruction. Overall the patient is doingvery well. He was recently seen in the ER for cardiac issues for which he is requesting follow-up with Cardiology here at [place]. His nephrostomy tube is extremely bothersome to [...] patient's request to establish care here at [facility] after being seen in the ER for [...] Waller M.D. [address] [place], [place] [phone] (Wo rk) Scheduled Orders Name Type Priority Associated Order Schedule Diagnoses IR Nephrostomy Tube Imaging RAD - Routine (most Malignant Neop lasm Expected: Exchange Left inpatients and all Of Bladder (HCC) 12/2022 outpatients) (Approximate), Expires: 11/22/2023 Scheduled Referrals Name Type Priority Associated Order Schedule Diagnoses Cardiovascular Disease Outpatient Referral Routine Malignant N eoplasm Expected: - Heart failure consult Of Bladder ([facility]) 08/22/2022 (clinic) (Approximate), Expires: 11/22/2023 Urology office visit Outpatient Referral Routine Expected: (clinic) 08/22/2022 (Approximate), Expires: 11/22/2023 documented as of this encounter Visit Diagnoses Diagnosis Malignant Neoplasm Of Bladder (HCC) - Pr imary documented in this encounter Care Teams Door Liner Relationship Specialty Start Date End Date Elsewhere, Pcp PCP - General Internal Medicine 01/14/22 documented as of this encounter
--- OUTSIDE RECORDS SUMMARY | 2022-09-02 13:15 | XMS_ITS | Encounter Summary ---
:1935 Author Organization [facility] Address [address] [place] [address] Care Team Providers Name Role Phone Elsewhere, Pcp Primary Care Provider Unavailable Reason for Referral Outpatient (Routine) - Authorized Specialty Diagnoses / Procedures Referred By Contact Refer red To Contact Diagnoses Congestive Heart Failure (HCC) Bradycardia Sinus Marielena Alfaro APRN, [facility] [address] [place] [address] [address] [place] [address] [place] [address] Phone: [phone] Fax: Referral ID Status Reason Start Expiration Visits Visits Date Date Requested Authorized [id number] Authorized Continuity of 08/02/2023 1 1 Care 2 Encounter Details Date Type Department Care Team Description 08/01/2022 - Hospital Encounter [facility] Kajal Molina M.D., Ph.D. [address] [place] [phone] Congestive Heart Failure (HCC) (Primary Dx); 08/02/2022 [facility] Phoenix Zapata M.D., M.P.H. [address] [place] [phone] Tachycardia; [facility], [facility], Roel LazaroB.S. [address] [place] [address] Bradycardia Sinus [facility], Sixth Floor [address] [place] [phone] Social History Tobacco Use Types Packs/Day Years [...] you attend mormon or Patient refused 2021 yazdanism services? 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 Urology For appointment details refer to your Patient Appointment Guide. HOSPITAL COURSE Admission Weight: 82.1 kg Dismissal Weight: 82.1 kg BMI: Body mass index is 26.72 kg/m??. Mr. Chery is a 87 y.o. male who presented as a direct admission from [facility] for further evaluation of sinus bradycardia. He [...] several doses of intravenous Lasix yesterday in [facility] that his scrotal edema and lower extremity [...] did have frequent PACs and PVCs. 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 He was aggressively diuresed at the [facility] and appears euvolemic. Given right-sided heart failure [...] L fluid restriction PRIMARY PROVIDER: No care steam and gas turbines assembler to display Primary Care Providers: Elsewhere, Pcp [...] paperwork with you to your appointments. * [place], [place] Tuesday August 09, 2022: 12:[address] Edwards, primary care provider, hospital follow up visit, at the clinic. RECOMMENDATIONS: * BMP [facility] [place], [place] You may have outpatient appointments at [facility] that changed during your hospitalization. Refer to your [facility] Patient Visit Guide (PVG) for the most current schedule of appointments and details instructions of tests / procedures. Call [phone] if you did not receive a PVG or need to CANCEL any [facility] appointment(s). AttachmentsThe following attachments cannot be sent through Care Everywhere. Levothyroxine (By mouth) (Serbian)Torsemide (By mouth) (Serbian)documented in this encounter Medications at Time of [...] DNR/DNI. Aftab Viera. CT CT Job ID: [id number] Marielena Alfaro APRN, C.N.PJluis - 08/01/2022 7:14 PM CDT CARDIOLOGY INPATIENT ADMISSION NOTE CHIEF COMPLAINT/REASON FOR VISIT Bradycardia Collaborating physician: Dr. Ramos Admitting service: RST CARD 3 HISTORY OF PRESENT ILLNESS Mr. Chery is a 87 y.o. male who presented as a direct admission from [facility] for further evaluation of bradycardia. Per patient's [...] several doses of intravenous Lasix yesterday in [facility] that his scrotal edema and lower extremity [...] had a significant cardiac evaluation at the [facility] in [place]. He has medical comorbidities including, but not [...] History: Diagnosis Date Atherosclerotic Heart Disease Of [place] Coronary Artery Without Angina Pectoris Cardiomyopathy Dilated [...] Normal lungs. Normal aorta. 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 Patient has noted previous bradycardia secondary to beta blockers. He presented to the [facility] with volume overload and was diuresed with [...] with reassessment on a day-to-day basis. 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 no benefits: No Advance Directives Legal Decision Maker: Self Advance Directives: N/A Advance Directives Status: N/A OBJECTIVE Baseline Functional Status Baseline Activities of Daily Living Mobility: Independent Dressing: Independent Feeding: Independent Bathing: Independent Grooming: Independent Toileting: Independent Behavior: Appropriate, Pleasant, Calm, Cooperative Communication: Talks, Understands speaking, Understands Serbian Shopping: Independent Transportation: Support from family Medication Management: Independent Housekeeping: Needs assistance Meal Prep: Needs assistance Managing Finances: Independent Assistive Devices: Eyeglasses, Dentures, Oxygen Home Oxygen Company: [employer] Services/Resources: Home health Agency Name: [facility] Health Services Provided: USP, PT Baseline Services/Resources Primary care clinic and provider: ELSEWHERE, PCP Services/Resources: Home health Anticipated Needs Functional Status: None Assistive Devices: Walker - front wheeled, Oxygen, Eyeglasses Services/Resources: Home health Agency Name: [facility] Provided: USP, PT Anticipated Modifications to the Patient's Home: None Transportation Needs: Support from family Does the patient need discharge transport arranged?: No Phone Number for Ride/Caregiver: [phone]/Miesha - and grandson Anticipated Discharge Destination: Home or Self Care ASSESSMENT / PLAN Assessment: The cleaning laborer met with Henok Chery to discuss his current hospitalization and home going needs. The patient was accompanied by , Miesha . The patient was a reliable historian. The role of cleaning laborer was reviewed. The patient and patient's reviewed his prior level of care and support system. The patient receives support from his . The patient and patient's described his living environment as a single level home with level entry. Housekeeping, grocery shopping, meal prep, and other household responsibilities have previously been completed by patient and patient's . cleaning laborer discussed the patient's potential needsat dismissal based [...] questions. provided name of HH provider of [facility] and [facility] for Home Oxygen supplies. At this time, the care team anticipates the patient requires the following services to be reconnected: home healthcare and oxygen. The patient's identified the following as their current vendor(s): [facility] and [facility] [employer]. The team also shared the patient will potentiallyrequire the following service(s) to be set up: home healthcare and oxygen. After reviewing the patient's chart and meeting with the patient's , the cleaning laborer deemed the LACE+/readmission questions were appropriate. The [...] admission could not have been prevented. The cleaning laborer will share this information with the care team. The patient's reports understanding that he will dismiss from the hospital TODAY this afternoon. Pending hospital course and medical readiness, no barriers to dismissal have been identified at this time. Plan: The patient's agrees with the following plan. Patient's anticipated discharge disposition is: Home with Home Healthcare Reconnected: [facility] Home Health and [facility] for Oxygen Transportation upon dismissal will be provided by family--Grandson . cleaning laborer recommended nothing at this time. cleaning laborer provided information regarding the dismissal process. cleaning laborer placed or requested the following hospital-based consult orders and/or referrals: None. cleaning laborer will continue to assess for homegoing needs with the interdisciplinary team. cleaning laborer encouraged the patient to reach out with any questions/concerns. Oxygen Reconnect: Durable Medical Equipment - Admitted Since 08/01/2022 Service Provider Selected Services Address Phone Fax Patient Preferred [facility] Durable Medical Equipment [address], [facility] [address] -- Contact: Staff Respiratory Equipment : Portable concentrator, 02 concepts, [place] adaptor Oxygen provider reports patient???s current orders [...] Selected Services Address Phone Fax Patient Preferred [facility] [address] [place] [address] [phone] -- Contact: Staff NURSING: - Complete documentation in the Discharge Navigator including Nursing Report Info and Facility/NextLevel of Care Info - Call report and arrange for the patient???s first visit. - Send required packet of dismissal information with patient, including After Visit Summary and advance directive. PRIMARY SERVICE: - Please provide a non-[place] home health order for resumption of previous [...] to home self care; [facility], an updated oxygen prescription and a [...] who presented as a direct admission from [facility] for further evaluation of sinus bradycardia. He [...] several doses of intravenous Lasix yesterday in [facility] that his scrotal edema and lower extremity [...] did have frequent PACs and PVCs. 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 He was aggressively diuresed at the [facility] and appears euvolemic. Given right-sided heart failure [...] M.D. [address] [place] [phone] (Wo ) Scheduled Referrals Name Type Priority Associated Diagnoses Order S [facility] Outpatient Referral Routine Congestive Heart Ord [...] Duration 0 sec duration INFOBIONIC MOME AF [place] 0% percent INFOBIONIC MOME [place] Runs 1114 [...] The patient reported no symptomatic e vents. Senior Wind Turbine Technician: VENKATESH Perrin / VENKATESH Devine Procedure Note [...] The patient reported no symptomatic e vents. Senior Wind Turbine Technician: VENKATESH Perrin / VENKATESH Devine Marielena Alfaro [...] Address City/State/ZIP Code Phon e Number POC [facility] [address] [place] [address] [place] [address] [place] [facility] [address] DX Chest [...] C.N.P. LAB BLOOD ADD-ON Performing Organization Address City/[facility]/ZIP Code Phon e Number [facility] [address] [place], [place] [address] [place] [id number] [place] [address] [place] (ABNORMAL) T4 (Thyroxine), Free (08/02/2022 [...] YolisN.P. LAB BLOOD ADD-ON Performing Organization Address City/[facility]/ZIP Code Phon e Number [facility] - [address] Thyroperoxidase (TPO) Antibodies, Serum (08/02/2022 6:07 AM CDT) Patholo gist Method Time Signature Thyroperoxidase Ab, <0.3 <9.0 08/02/2022 DTL S IU/mL 9:20 AM CDT Specimen Anatomical Collection Method Collection Time Receive d Time (Source) Location / / Volume Laterality Blood 08/02/2022 6:07 AM 6:45 CDT AM CDT Marielena Alfaro APRN, C.N.P. LAB BLOOD NON ADD-ON Performing Organization Address City/[facility]/ZIP Code Phon e Number [facility] - [address] [place], [place] [address] [facility] [address] (ABNORMAL) T4 (Thyroxine), Free, Serum (08/02/2022 [...] Address City/State/ZIP Code Phon e Number [facility] - [address] [place] [address] [facility] [place] [place] [address] [facility] 200 [facility] Lipid Panel (08/02/2022 6:07 AM CDT) P [...] =220 mg/dL Fasting (8 HR or more) [id number] 08/02/2022 6:45 A M CDT DT Specimen Anatomical Collection Method Collection Time Receive d Time (Source) Location / / Volume Laterality Blood (Blood, 08/02/2022 6:07 AM 08/02/20 6:45 Venous) CDT AM CDT Marielena Alfaro APRN, Aram.N.P. LAB BLOOD ADD-ON Performing Organization Address City/[facility]/ZIP Code Phon e Number [facility] - [id number] [place] [address] (ABNORMAL) Hemoglobin A1c (08/02/2022 6:07 AM CDT) athologist Signature Hemoglobin A1c, 6.3 (H) 4.0 - 5.6 08/02/2022 [facility] B % 7:07 AM CDT Comment: Hemoglobin [...] C.N.P. LAB BLOOD ADD-ON Performing Organization Address City/[facility]/ZIP Code Phon e Number [facility] - [id number] [place] [address] (ABNORMAL) Thyroid Function [place] (08/02/2022 6:07 AM CDT) athologist Signature TSH, Sensitive 21.0 (H) 0.3 - 4.2 08/02/2022 DT mIU/L 7:17 AM CDT Specimen Anatomical Collection Method Collection Time Receive d Time (Source) Location / / Volume Laterality Blood (Blood, 08/02/2022 6:07 AM 08/02/20 6:45 Venous) CDT AM CDT Marielena Alfaro APRN, C.N.P. LAB BLOOD ADD-ON Performing Organization Address City/State/ZIP Code Phon e Number [facility] - [address] [place] [address] [facility] [place] [place] [address] [facility] 200 [facility] Type and Screen (with reflex Antibody ID) (08/02/2022 6:07 AM CDT) [facility] Method Time Signature ABORh A Pos [...] BANK TEST SHERRI FLORES Performing Organization Address City/[facility] Code Phon e Number [facility] - [address] [place] [address] [place] [address] Laboratories-[address] (ABNORMAL) CBC without Differential (08/02/2022 6:07 AM CDT) [facility] Method Time Signature Hemoglobin 8.1 (L) [...] Address City/State/ZIP Code Phon e Number [facility] - [address] [place], [place] [address] [facility] [place] [place] [address] [facility] [address] (ABNORMAL) Comprehensive Metabolic Panel [...] Address City/State/ZIP Code Phon e Number [facility] - 200 [place], [place] [address] [facility] [place] [address] [facility] 200 [facility] ECG 12 Lead (08/01/2022 7:54 PM CDT) P athologist Signature Ventricular Rate 75 BPM MUSE ECG/Min [place] Interval 170 ms MUSE QRSD Interval 96 ms MUSE QT Interval 418 ms MUSE QTC Interval 466 ms MUSE P Seg[place] 80 degrees MUSE R Seguin -25 degrees MUSE T Wave [place] 100 degrees MUSE Specimen Anatomical Collection Method [...] Address City/State/ZIP Code Phon e Number [facility] - 200 [place], [place] [address] [place] [address] [place] [address] Laboratories-[address] (ABNORMAL) NT-Pro B-Type Natriuretic Peptide (BNP) [...] Address City/State/ZIP Code Phon e Number [facility] - 200 [place], [place] [address] [place] [address] [facility]-[address] (ABNORMAL) CBC with Differential, Blood (08/01/2022 [...] Address City/State/ZIP Code Phon e Number [facility] - [address] [place] [address] [facility] [place] [place] [address] Laboratories-[address] ECG 12 Lead (08/01/2022 6:38 PM CDT) P athologist Signature Ventricular Rate 72 BPM MUSE ECG/Min [place] Interval 182 ms MUSE QRSD Interval 98 ms MUSE QT Interval 406 ms MUSE QTC Interval 444 ms MUSE P [place] 69 degrees MUSE R Seguin -19 degrees MUSE T Wave [place] 96 degrees MUSE Specimen Anatomical Collection Method [...] mg of calcium, oral, Every 2 hour [place] N, indigestion, Not to exceed 12 tablets [...] injection documented in this encounter Care Teams Scorekeeper Relationship Specialty Start Date End Date Elsewhere, Pcp PCP - General Internal Medicine 01/14/22 documented as of this encounter
--- OUTSIDE RECORDS SUMMARY | 2022-09-02 13:15 | XMS_ITS | Encounter Summary ---
:1935 Author Organization [facility] Address [address] [place] [address] Care Team Providers Name Role Phone Elsewhere, Pcp Primary Care Provider Unavailable Encounter Details Date Type Department Care Team Description 08/02/2022 Hospital Encounter Division of Marielena Alfaro, Cardiovascular Diseases SODA TESTER, C. N.P. in [facility] [address] [place] [address] [phone] Social History Tobacco Use Types Packs/Day Years [...] you attend sikhism or Patient refused 2021 hoahaoism services? 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 [address] [place] [phone] (Wo rk) documented as of this [...] Duration 0 sec duration INFOBIONIC MOME AF [place] 0% percent INFOBIONIC MOME [place] Runs 1114 [...] The patient reported no symptomatic e vents. Consumer Marketing Analyst: VENKATESH Perrin / VENKATESH Devine Procedure Note [...] The patient reported no symptomatic e vents. Consumer Marketing Analyst: VENKATESH Perrin / VENKATESH Devine Marielena Alfaro APRN, C.N.P. CV CARDIAC SERVICES PROC EDURES Performing Organization Address City/State/ZIP Code Phon e Number INFOBIONIC MOME INFOBIONIC MOME NA documented in this encounter Visit Diagnoses Not on filedocumented in this encounter Care Teams Photovoltaic Installer Relationship Specialty Start Date End Date Elsewhere, Pcp PCP - General Internal Medicine 01/14/22 documented as of this encounter
--- OUTSIDE RECORDS SUMMARY | 2022-09-02 13:15 | XMS_ITS | Encounter Summary ---
:1935 Author Organization [facility] Address [address] [place] [address] Care Team Providers Name Role Phone Elsewhere, Pcp Primary Care Provider Unavailable Reason for Referral MRI/CAT/PET Scan (Routine) - Closed Specialty Diagnoses / Procedures Referred By Contact Refer red To Contact Radiology Diagnoses Malignant Neoplasm Of Bladder (HCC) Claude Loaiza MPAS, [facility] Procedures CT Urogram without and with IV Contrast P.A.-C. [address] [place], [place] [address] Referral ID Status Reason Start Date Expiration Date Visits Requ ested Visits Authorized [id number] Closed 06/14/2022 06/14/2023 1 1 Reason for Visit MRI/CAT/PET Scan (Routine) - Closed Specialty Diagnoses / Procedures Referred By Contact Refer red To Contact Radiology Diagnoses Malignant Neoplasm Of Bladder (HCC) Claude Loaiza MPAS, [facility] Procedures CT Urogram without and with IV Contrast P.A.-C. 200 [place], [place] [address] Referral ID Status Reason Start Date Expiration Date Visits Requ ested Visits Authorized [id number] Closed 06/14/2022 06/14/2023 1 1 Encounter Details Date Type Department Care Team Description 08/20/2022 Hospital Encounter Department of Claude Loaiza Neoplasm Radiology, [facility], [facility], Of Bladder ( HCC) Building, in P.A.-C. [place], [place] [address] [place] [phone] Social History Tobacco Use Types Packs/Day Years [...] you attend uatsdin or Patient refused 2021 confucianism services? 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 documented in this encounter Plan of Treatment Upcoming Encounters Date Type Specialty Care Team Description 09/03/2022 Telemedicine Urology Albert Waller M.D. [address] [place] [phone] (Wo rk) documented as of this [...] Orders documented in this encounter Care Teams Java J2Ee Technical Lead Relationship Specialty Start Date End Date Elsewhere, Pcp PCP - General Internal Medicine 01/14/22 documented as of this encounter
--- OUTSIDE RECORDS SUMMARY | 2022-09-02 13:15 | XMS_ITS ---
:1935 Author Organization [facility] Address [address] [place] [address] Care Team Providers Name Role Phone Elsewhere, [...] Prescribed Total On Treated Fraction Dose Dose [id number] 04/19/2022 17 6 of 6 600 cGy 3,600 cGy Reference Point Last Treated On Elapsed Days Session Dose Total Dos e [id number] 04/19/2022 17 600 cGy 3,600 cGy Lifetime Dose Tracking Chemical Lifetime Dose Automatic Entry Manual Entry Radiation 213.28 mGy 213.28 mGy 0 mGy Fluoro Time 10.5 minutes 10.5 minutes 0 minutes DAP (uGy-m2) 3,896.46 uGy-m2 3,896.46 uGy-m2 0 uGy-m2
--- OUTSIDE RECORDS SUMMARY | 2022-09-02 13:15 | XMS_ITS | Encounter Summary ---
:1935 Author Organization [facility] Address [address] [place] [address] Care Team Providers Name Role Phone Elsewhere, Pcp Primary Care Provider Unavailable Reason for Visit Outpatient (Routine) - Closed Specialty Diagnoses / Procedures Referred By Contact Refer red To Contact Radiology Diagnoses Malignant Neoplasm Of Bladder (HCC) Hydronephrosis Gibran Ruvalcaba M.D. [facility] Procedures IR Nephrostomy Tube Exchange Left IR Nephrostomy Tube Check Left [address] [place] [address] Referral ID Status Reason Start Date Expiration Date Visits Requ ested Visits Authorized [id number] Closed 07/01/2022 07/01/2023 1 1 Encounter Details Date Type Department Care Team Description 07/02/2022 Hospital Encounter Department of Gibran Ruvalcaba M.D. [address] [place] [address] Malignant Neoplasm Of Bladder (HCC); Radiology in Beatriz Leblanc M.D. [address] [place] [address] Hydronephrosis Blade Batista Madison, M.D. [address] [place] [address] [address] [place] [address] Social History Tobacco Use Types [...] you attend yazidism or Patient refused 2021 amish services? Do you belong to any clubs or No 05/17/2022 organizations such as yazidism groups, unions, [employer]FireHost or athletic groups, or school groups? 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 [address] [place] [address] (Wo rk) documented as of this [...] d raining. TECHNIQUE: Prone positioning. Fluoroscop ic director presales image demonstrates the likely malpositioning of the [...] Over a torque wire, a new 12 Japanese by 25 cm pigtail catheter was advanced [...] d raining. TECHNIQUE: Prone positioning. Fluoroscop ic director presales image demonstrates the likely malpositioning of the [...] Over a torque wire, a new 12 Japanese by 25 cm pigtail catheter was advanced [...] injection documented in this encounter Care Teams Corral Boss Relationship Specialty Start Date End Date Elsewhere, Pcp PCP - General Internal Medicine 01/14/22 documented as of this encounter
--- OUTSIDE RECORDS SUMMARY | 2022-09-02 13:15 | XMS_ITS | Encounter Summary ---
:1935 Author Organization [facility] Address [address] [place] [address] Care Team Providers Name Role Phone Elsewhere, Pcp Primary Care Provider Unavailable Reason for Referral Outpatient (Routine) - Closed Specialty Diagnoses / Procedures Referred By Contact Refer red To Contact Radiology Diagnoses Malignant Neoplasm Of Bladder (HCC) Nura David IV [facility] Procedures IR Nephrostomy Tube Exchange Left M.D. [address] [place] [address] Referral ID Status Reason Start Date Expiration Date Visits Requ ested Visits Authorized [id number] Closed 05/20/2022 05/20/2023 1 1 Outpatient (Routine) - Closed Specialty Diagnoses / Procedures Referred By Contact Refer red To Contact Radiology Diagnoses Malignant Neoplasm Of Bladder (HCC) Claude Loaiza MPAS, [facility] Procedures IR Nephrostomy Tube Check Left P.A.-C. [address] [place] [address] Referral ID Status Reason Start Date Expiration Date Visits Requ ested Visits Authorized [id number] Closed 06/14/2022 06/14/2023 1 1 Reason for Visit Outpatient (Routine) - Closed Specialty Diagnoses / Procedures Referred By Contact Refer red To Contact Radiology Diagnoses Malignant Neoplasm Of Bladder (HCC) Claude Loaiza MPAS, [facility] Procedures IR Nephrostomy Tube Check Left P.A.-C. [address] [place] [address] Referral ID Status Reason Start Date Expiration Date Visits Requ ested Visits Authorized [id number] Closed 06/14/2022 06/14/2023 1 1 Encounter Details Date Type Department Care Team Description 08/20/2022 Hospital Encounter Department of Mar Loaiza MPAS, Eduardo [address] [place] [phone] Malignant Neoplasm Radiology, Jamir Lorenzana M.D. [address] [place] [phone] Of Bladder (HCC) [facility], in [place], [place] [address] [place] [address] Social History Tobacco Use Types Packs/Day Years [...] you attend alevism or Patient refused 2021 temple services? 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 [address] [place] [address] (Wo ) documented as of [...] nephrostomy tube was removed and a [address] aced. A glide head [...] nephrostomy tube was removed and a [address] Colombian [address] pl aced. A glide head [...] nephrostomy tube was removed and a 6 Colombian sheath was pl aced. A glide head [...] nephrostomy tube was removed and a 6 Colombian [address] was pl aced. A glide head [...] injection documented in this encounter Care Teams Bar Roller Relationship Specialty Start Date End Date Elsewhere, Pcp PCP - General Internal Medicine 01/14/22 documented as of this encounter
--- OUTSIDE RECORDS SUMMARY | 2022-09-02 13:15 | XMS_ITS | Clinical Summary ---
:1935 Author Organization [facility] Address [address] [place] [address] Care Team Providers Name Role Phone Elsewhere, Pcp Primary Care Provider Unavailable Source Comments Patient records contain information from all sites at [facility]. For routine questions regarding patient records, call [phone] during business hours, M-F 8:00 AM - 5:00 PM Central Time. Record requests for emergency care only can be directed to [phone] at any time.[facility] Allergies Active Allergy Reactions Severity Noted Date Comments Beta-Blockers Other (see comments) 12/27/2021 Bradyc ardia (Beta-Adrenergic Blocking Agts) Penicillins Anaphylaxis, Other (see High 05/24/2015 comments) Medications Medication Sig Dispensed Refills Start Date End Date Status aspirin [address] Take 1 tablet 0 02/12/2016 Active tablet by mouth daily. hydroxyurea (HYDREA) Take 3-4 capsules by mouth daily. 1500 mg on - 0 10/27/2017 Active 500 mg capsule 2000 mg on Fri-Fri omeprazole (PriLOSEC) Take 1 capsule 0 02/12/2016 Active 20 mg capsule by mouth daily. glipiZIDE (GLUCOTROL Take 10 mg by 0 Active XL) 10 mg 24 hr tablet mouth daily with breakfast. cholecalciferol Take 50 mcg by 0 Active (VITAMIN D3) 50 mcg mouth daily. (2,000 Unit) tablet amLODIPine (NORVASC) Take 2.5 mg by 0 Active 2.5 mg tablet mouth daily. nitroglycerin Place 0.4 mg 0 Act giles (NITROSTAT) 0.4 mg SL under the tablet tongue every 5 (five) minutes as needed for chest pain. buPROPion XL Take 300 mg by 0 Ac tive (WELLBUTRIN XL) 300 mg mouth daily. 24 hr tablet trospium (SANCTURA) 20 Take 1 tablet 30 tablet 0 02/22/2022 Active mg tablet (20 mg total) by mouth 2 (two) times a day as needed (bladder spasms). tamsulosin (FLOMAX) Take 1 capsule 90 capsule 3 06/14/2022 Active 0.4 mg 24 hr capsule (0.4 mg total) by mouth daily. finasteride (PROSCAR) Take 1 tablet 90 tablet 3 06/14/2022 Active 5 mg tablet (5 mg total) by mouth daily. levothyroxine Take 1 tablet 30 tablet 3 08/02/2022 08/02/2023 Active (SYNTHROID, (125 mcg total) LEVOTHROID) 125 mcg by mouth every tablet morning before breakfast. torsemide (DEMADEX) 20 Take 1 tablet 30 tablet 3 08/02/2022 Active mg tablet (20 mg total) by mouth daily. sulfamethoxazole-trime Take 1 tablet 0 06/21/2022 Active thoprim (BACTRIM DS) by mouth 2 800-160 mg per tablet (two) times a day. ciprofloxacin (CIPRO) 0 06/14/2022 Active 500 mg tablet HYDROcodone-acetaminop 0 06/27/2022 Active hen (NORCO) 5-325 mg per tablet METHOCARBAMOL ORAL 0 06/27/2022 Active FUROSEMIDE ORAL 20 mg 2 (two) 0 07/15/2022 Active times a day. ACETAMINOPHEN ORAL 1,300 mg 2 0 05/08/2022 Active (two) times a day. ciprofloxacin (CIPRO) TAKE 1 TABLET 1 tablet 0 06/14/2022 Active 500 mg tablet BY MOUTH DAILY FOR ONE TIME Active Problems Problem Noted Date Hypothyroidism 08/02/2022 [...] Neoplasm Claude C, Of Bladder (HCC ) GARCIA, P.A.-C. Jamir Hinds M.D. 08/20/2022 Hospital Encounter Radiology Josse, Malignant Neoplasm Claude C, Of Bladder (HCC ) GARCIA, P.A.-C. 08/02/2022 Hospital Encounter Cardiovascular Lenser, Disease Marielenashabbir Jewell APRN, C.N.P. 08/01/2022 Hospital Encounter Kajal Molina Congestiv e Heart Failure (HCC) (Primary Dx); Jade Chiu M.D., Ph.D. Tachycardia; 08/02/2022 Carter Zapataa Bradycardia Si min Carlson M.D., M.P.H. Brigido Ramos, M.B.B.S. 07/02/2022 Hospital Encounter Radiology Gibran Ruvalcaba Malignant Neoplasm Of Bladder (HCC); Ashtyn Gardner Hydronephrosis Beatriz Leblanc M.D. Julia Murguia M.D. 07/01/2022 Clinical Urology Gibran Ruvalcaba Communication Ashtyn Gardner 06/19/2022 Clinical Urology Gibran Ruvalcaba Communication Ashtyn Gardner 06/14/2022 Procedure visit Urology Gibran Ruvalcaba Malignant Ne walt Gardner M.D. Of Bladder (HC C) (Primary Dx) 06/14/2022 Procedure visit Urology Gibran Ruvalcaba Malignant Ne krissyasm Ashtyn Gardner Of Bladder (HC C) 06/14/2022 Comprehensive Visit Urology Gibran Ruvalcaba Malignan t Neoplasm Ashtyn Gardner Of Bladder (HC C) (Primary Dx) 06/14/2022 Orders Only Urology Claude Loaiza, MPAS, P.A.-C. 06/03/2022 Procedure visit Urology Rosmery, Stricture Ur ethral Postoperative Male (Primary Dx); Armida Dubois APRN, Hydronephrosi s; C.N.P., D.N.P. Malignant Neoplasm Of Bladder (HCC) Lo Sewell, EDWARD, C.N.P., D.N.P. from Last 3 Months Immunizations [...] you attend yazdanism or Patient refused 2021 catholic services? Do [...] or slept in a usp (including now)? Education Answer Date Recorded What is the highest level of school you have completed or 12 th grade 05/17/2022 the highest degree you have received? 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 [address] [place] [phone] (Wo rk) Health Maintenance Due Date [...] this procedure are in the results section. [place] INJ ANTEGRD Routine 06/14/2022 2:29 Malignant Results [...] nephrostomy tube was removed and a 6 Puerto [place]ican sheath was pl aced. A glide head [...] nephrostomy tube was removed and a 6 [place]ican sheath was pl aced. A glide head [...] nephrostomy tube was removed and a 6 [place] Rican sheath was pl aced. A glide head [...] nephrostomy tube was removed and a 6 [place]ican sheath was pl aced. A glide head [...] demonstrates a UPJ stenosis. NR Claude ZELAYA, PJluisAArely. IMG IR PROCEDURES CT Urogram without and [...] IPMN. Claude ZELAYA, P.A.-C. IMG CT PROCEDURES ECG AMBULATORY REAL TIME [...] Duration 0 sec duration INFOBIONIC MOME AF [place] 0% percent INFOBIONIC MOME [place] Runs 1114 [...] The patient reported no symptomatic e vents. Rate Quoting Operator: VENKATESH Prerin / VENKATESH Devine Procedure Note Emanuel Bush [...] The patient reported no symptomatic e vents. Rate Quoting Operator: VENKATESH Perrin / VENKATESH Devine Marielena Alfaro [...] Address City/State/ZIP Code Phon e Number POC [facility] [address] [place] [address] PCLX [facility] [place] [address] [place] [facility] [address] DX Chest [...] Organization Address City/State/ZIP Code Phon e Number [facility] - [address] [place], [place] [address] [facility] [place] [address] Laboratories-[facility] [address] (ABNORMAL) T4 (Thyroxine), Free, Serum (08/02/2022 6:07 AM CDT) P athologist Signature T4 0.7 (L) 0.9 - 1.7 08/02/2022 DTL (Thyroxine), ng/dL 7:37 AM CDT Free, S Specimen Anatomical Collection Method Collection Time Receive d Time (Source) Location / / Volume Laterality Blood 08/02/2022 6:07 AM 6:45 CDT AM CDT Yolis Champion APRNNRichelle LAB BLOOD ADD-ON Performing Organization Address City/State/ZIP Code Phon e Number [facility] - [address] [place], [place] [address] [facility] [place] [address] Laboratories-[facility] [address] [facility] Lipid Panel (08/02/2022 6:07 AM CDT) [...] =220 mg/dL Fasting (8 HR or more) [id number] 08/02/2022 6:45 A M CDT DTL Specimen Anatomical Collection Method Collection Time Receive d Time (Source) Location / / Volume Laterality Blood (Blood, 08/02/2022 6:07 AM 08/02/20 6:45 Venous) CDT AM CDT Marielena Alfaro APRN, C.N.P. LAB BLOOD ADD-ON Performing Organization Address City/[facility] Phon e Number [facility] - [address] (ABNORMAL) Thyroid Function [place] (08/02/2022 6:07 AM CDT) P athologist Signature TSH, Sensitive 21.0 (H) 0.3 - 4.2 08/02/2022 DTL mIU/L 7:17 AM CDT Specimen Anatomical Collection Method Collection Time Receive d Time (Source) Location / / Volume Laterality Blood (Blood, 08/02/2022 6:07 AM 08/02/20 6:45 Venous) CDT AM CDT Marielena Alfaro APRN, C.N.P. LAB BLOOD ADD-ON Performing Organization Address [facility] Phon e Number [facility] - [address] (ABNORMAL) CBC without Differential (08/02/2022 6:07 [...] Organization Address City/State/ZIP Code Phon e Number [facility] - [address] [place], [place] [address] [facility] [place] [place] [address] [facility] 200 [facility] Type and Screen (with reflex [...] BANK TEST ORDE RABLES Performing Organization Address City/[facility] Code Phon e Number [facility] - [address] [place], [place] [address] [facility] [place] [address] Laboratories-[facility] 200 [facility] (ABNORMAL) T3 (Triiodothyronine), Free (08/02/2022 6:07 AM [...] Organization Address City/State/ZIP Code Phon e Number [facility] [address] [place], [place] [address] [place] [address] [facility] [address] [place] (ABNORMAL) T4 (Thyroxine), Free (08/02/2022 6:07 AM CDT) athologist Signature T4 0.7 (L) 0.9 - 1.7 08/02/2022 DTL (Thyroxine), ng/dL 10:04 AM CDT Free, S Specimen Anatomical Collection Method Collection Time Receive d Time (Source) Location / / Volume Laterality Blood (Blood, 08/02/2022 6:07 AM 08/02/20 8:22 Venous) CDT AM CDT Yolis Champion APRNNRichelle LAB BLOOD ADD-ON Performing Organization Address City/[facility] Phon e Number [facility] [address] 200 [facility] (ABNORMAL) Hemoglobin A1c (08/02/2022 6:07 AM CDT) [...] AM 08/02/20 6:31 Venous) CDT AM CDT Yolis Champion APRNN.PJluis LAB BLOOD ADD-ON Performing Organization Address City/[facility]/ZIP Code Phon e Number [facility] - [address] [place], [place] [address] [place] [id number] Laboratories-[facility] [address] (ABNORMAL) Comprehensive Metabolic Panel (08/02/2022 6:07 AM [...] Organization Address City/State/ZIP Code Phon e Number [facility] - [address] [place], [place] [address] [facility] [place] [place] [address] [facility] 200 [facility] ECG 12 Lead (08/01/2022 7:54 PM CDT)Only the most recent of2 resultswithin the time period is included. P athologist Signature Ventricular Rate 75 BPM MUSE ECG/Min [place] Interval 170 ms MUSE QRSD Interval 96 ms MUSE QT Interval 418 ms MUSE QTC Interval 466 ms MUSE P Jerome 80 degrees MUSE R Jerome -25 degrees MUSE T Wave [place] 100 degrees MUSE Specimen Anatomical Collection Method [...] APRN, C.N.P. ECG ORDERABLES Performing Organization Address City/[facility]/ZIP Code Phon e Number MUSE MUSE NA [...] Organization Address City/State/ZIP Code Phon e Number [facility] - [address] [place] [address] [facility] [place] [place] [address] [facility] 200 [facility] (ABNORMAL) CBC with Differential, Blood (08/01/2022 6:50 [...] Organization Address City/State/ZIP Code Phon e Number [facility] - [address] [place] [address] [facility] [place] [place] [address] [facility] 200 [facility] (ABNORMAL) Basic Metabolic Panel (08/01/2022 [...] C.N.P. LAB BLOOD ADD-ON Performing Organization Address City/[facility]/ZIP Code Phon e Number [facility] - [address] [place] [address] [facility] [place] [address] [facility] 200 [facility] XR chest 1V portable-Outside Chest Xray (07/31/2022 [...] Organization Address City/State/ZIP Code Phon e Number [facility] NA Cystoscopy (specific provider) (06/14/2022 2:29 PM CDT) Specimen (Source) Anatomical Location Collection Method / Collectio n Time Received Time / Laterality Volume Narrative Gibran Ruvalcaba M.D. - 06/14/2022 2: 53 PM CDT Gibran Ruvalcaba M.D. ? 06/14/2022 ??2:55 PM Cystoscopy (specific provider) Date/Time: 06/14/2022 2:53 PM Performed by: Gibran Ruvalcaba M.D. Authorized by: Claude Loaiza MPAS, P.A.-CJluis Zuleima Sequeira.A.-C. UROLOGY ORDERABLES URO Nephrostogram (06/14/2022 2:29 PM [...] 06/03/2022 8:51 AM CDT Lo Sewell APRN C.N.P., D.N.P. ? 06/04/2022 ??9:48 AM URO [...] through the urethra. 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 Unable to transverse cystosco pe related to notable discomfort. Given patient discomfort the procedure w as evacuated. Cystoscope was removed. ??He is currently performing in termittent catheterization with 14 Puerto Rican catheter. IMPRESSION: #[address] [...] ype Group Dates MEDICARE MEDICARE A AND [id number] 2002-Prese [id number] [place] [address] STATE [facility] STATE FARM [id number] 2002-Prese [phone] [id number] [place] [address] Advance Directives For more information, please contact: [phone] Latest Code Status on File Code Status Date Activated Date Inactivated Comments DNR/DNI 08/01/2022 7:14 PM 08/02/2022 4:03 PM Code Status History Code Status Date Activated Date Inactivated Comments Full Code 08/01/2022 6:20 PM 08/01/2022 7:14 PM Question Answer Comments Full Code: Discussed DNR/DNI 02/20/2022 1:42 PM 02/22/2022 10:39 PM DNR/DNI 02/20/2022 1:42 PM 02/20/2022 1:42 PM Care Teams Steam Powerplant Supervisor Relationship Specialty Start Date End Date Elsewhere, Pcp PCP - General Internal Medicine 01/14/22
--- OUTSIDE RECORDS SUMMARY | 2022-09-02 13:16 | XMS_ITS | Encounter Summary ---
:1935 Author Organization [facility] Address [address] [place] [address] Care Team Providers Name Role Phone Elsewhere, Pcp Primary Care Provider Unavailable Encounter Details Date Type Department Care Team Description 05/17/2022 Hospital Encounter Department of Armida Botello nephrosis; Laboratory Medicine L, RAIL EXPRESS CLERK, Tavia t Neoplasm Of Bladder (HCC) and Pathology, C.N.P., D.N.[facility] [address] [place] [address] [place] [address] [place], [place] [phone] [address] (Work) [phone] Social History Tobacco Use Types Packs/Day Years [...] you attend presybeterian or Patient refused 2021 amish services? 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 [address] [place], [place] [phone] (Wo rk) documented as of this encounter Visit Diagnoses Diagnosis Hydronephrosis Malignant Neoplasm Of Bladder (HCC) documented in this encounter Care Teams Product Marketing Executive Relationship Specialty Start Date End Date Elsewhere, Pcp PCP - General Internal Medicine 01/14/22 documented as of this encounter
--- OUTSIDE RECORDS SUMMARY | 2022-09-02 13:16 | XMS_ITS | Encounter Summary ---
:1935 Author Organization [facility] Address [address] [place] [address] Care Team Providers Name Role Phone Elsewhere, Pcp Primary Care Provider Unavailable Reason for Visit Reason Comments Neph Tube Question Encounter Details Date Type Department Care Team Description 05/09/2022 Clinical Communication Department of Bassam Knight ph Tube Question [facility] [address] [place], [place] [address] [place] [address] [place], [place] [phone] (Work) [phone] Social History Tobacco Use Types Packs/Day Years [...] you attend sabianist or Patient refused 2021 yazidi services? 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 Chery's neph tube bag. She says it's kind of white in color and stringy looking. She's not sure if that's normal or something to be concerned about. She says he doesn't have any signs of any infection. She can be reached at [phone]. Thanks! documented in this encounter Plan of Treatment Upcoming Encounters Date Type Specialty Care Team Description 09/03/2022 Telemedicine Urology Albert Waller M.D. [address] [place] [address] (Wo rk) documented as of this encounter Visit Diagnoses Not on filedocumented in this encounter Care Teams Ceramic Plater Relationship Specialty Start Date End Date Elsewhere, Pcp PCP - General Internal Medicine 01/14/22 documented as of this encounter
--- OUTSIDE RECORDS SUMMARY | 2022-09-02 13:16 | XMS_ITS | Encounter Summary ---
:1935 Author Organization [facility] Address 200 [place] [address] Care Team Providers Name Role Phone Elsewhere, Pcp Primary Care Provider Unavailable Reason for Visit Reason Comments Urinary Retention Outpatient (Routine) - Closed Specialty Diagnoses / Procedures Referred By Contact Refer red To Contact Diagnoses Hydronephrosis Malignant Neoplasm Of Bladder (HCC) Retention Urinary Armida Botello APRN, [facility] Procedures URO Urethral cath removal & voiding trial (UCO/VT) C.N.P., D.N.P. [address] [place] [phone] Referral ID Status Reason Start Date Expiration Date Visits Requ ested Visits Authorized [id number] Closed 05/17/2022 05/17/2023 1 1 Encounter Details Date Type Department Care Team Description 05/17/2022 Procedure visit Department of Urology Armida Botello APRN, C.N.P., D.N.P. [address] [place] [phone] Hydronephrosis; in [place], Lalita Dewitt R.N. 200 [place] [address] Malignant Neoplasm Of Bladder (HCC); [place] Ret[facility] [address] [place] [phone] Social History Tobacco Use Types Packs/Day Years [...] you attend alevism or Patient refused 2021 christian services? Do you belong to any clubs or No 05/17/2022 organizations such as alevism groups, unions, [employer] or athletic groups, or school groups? 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 [address] [place] [address] (Wo rk) documented as of this encounter Visit Diagnoses Diagnosis Hydronephrosis Malignant Neoplasm Of Bladder (HCC) Retention Urinary documented in this encounter Care Teams Food Counselor Relationship Specialty Start Date End Date Elsewhere, Pcp PCP - General Internal Medicine 01/14/22 documented as of this encounter
--- OUTSIDE RECORDS SUMMARY | 2022-09-02 13:16 | XMS_ITS | Encounter Summary ---
:1935 Author Organization [facility] Address [address] [place] [address] Care Team Providers Name Role Phone Elsewhere, Pcp Primary Care Provider Unavailable Encounter Details Date Type Department Care Team Description 06/19/2022 Clinical Communication Department of Urology Analisa Ruvalcaba in [facility] lonny Gardner M.D. 200 [facility] 200 [place] [address] [phone] Social History Tobacco Use Types Packs/Day Years [...] you attend congregation or Patient refused 2021 jehovah's witness services? 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 Would a nurse be able to return a call to them please? Does caller have Auth on file: Ok to respond via portal: No Best Number to be reached at: [phone] Best time of day to call: Pharmacy info if needed: documented in this encounter Plan of Treatment Upcoming Encounters Date Type Specialty Care Team Description 09/03/2022 Telemedicine Urology Albert Waller M.D. [address] [place] [phone] (Wo rk) documented as of this encounter Visit Diagnoses Not on filedocumented in this encounter Care Teams Silverware Etcher Relationship Specialty Start Date End Date Elsewhere, Pcp PCP - General Internal Medicine 01/14/22 documented as of this encounter
--- OUTSIDE RECORDS SUMMARY | 2022-09-02 13:16 | XMS_ITS | Encounter Summary ---
:1935 Author Organization [facility] Address [address] [place] [address] Care Team Providers Name Role Phone Elsewhere, Pcp Primary Care Provider Unavailable Reason for Referral MRI/CAT/PET Scan (Routine) - Closed Specialty Diagnoses / Procedures Referred By Contact Refer red To Contact Radiology Diagnoses Hy[facility] Urogram without and with IV Contrast C.N.P., D.N.P. 200 [place] [address] Referral ID Status Reason Start Date Expiration Date Visits Requ ested Visits Authorized [id number] Closed 05/17/2022 05/17/2023 1 1 Reason for Visit MRI/CAT/PET Scan (Routine) - Closed Specialty Diagnoses / Procedures Referred By Contact Refer red To Contact Radiology Diagnoses [facility]phrosis [facility] CT Urogram without and with IV Contrast C.N.P., D.N.P. 200 [place] [address] Referral ID Status Reason Start Date Expiration Date Visits Requ ested Visits Authorized [id number] Closed 05/17/2022 05/17/2023 1 1 Encounter Details Date Type Department Care Team Description 05/23/2022 Hospital Encounter Department of [place], Armida [place] nephrosis Radiology, José Dubois APRN, C.N.P., Building, in [facility] EdwigeN.P. [place] [address] [facility] [address] [place] [phone] Social History Tobacco Use Types Packs/Day Years [...] you attend faith or Patient refused 2021 muslim services? 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 [address] [place] [phone] (Wo rk) documented as of this [...] Orders documented in this encounter Care Teams Aquatic Biologist Relationship Specialty Start Date End Date Elsewhere, Pcp PCP - General Internal Medicine 01/14/22 documented as of this encounter
--- OUTSIDE RECORDS SUMMARY | 2022-09-02 13:16 | XMS_ITS | Encounter Summary ---
:1935 Author Organization [facility] Address 200 [place] [address] Care Team Providers Name Role Phone Elsewhere, Pcp Primary Care Provider Unavailable Reason for Referral Outpatient (Routine) - Closed Specialty Diagnoses / Procedures Referred By Contact Refer red To Contact Radiology Diagnoses Malignant Neoplasm Of Bladder (HCC) Nura David IV [facility] Procedures IR Nephrostomy Tube Exchange Left M.D. 200 [place] [address] Referral ID Status Reason Start Date Expiration Date Visits Requ ested Visits Authorized [id number] Closed 05/20/2022 05/20/2023 1 1 Encounter Details Date Type Department Care Team Description 05/20/2022 Orders Only Department of Urology Nura David Malignant Neoplasm Of in Becky Batista IV, M.D. Bladder (HCC) (Primary [place] 200 [facility] Dx) 200 [place] [phone] Social History Tobacco Use Types Packs/Day Years [...] you attend baptism or Patient refused 2021 restorationism services? Do you belong to any clubs or No 05/17/2022 organizations such as baptism groups, unions, [employer] or athletic groups, or school groups? 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 [address] [place] [address] (Wo rk) documented as of this [...] nephrostomy tube was removed and a [address] aced. A glide head [...] nephrostomy tube was removed and a [address] aced. A glide head [...] (HCC) documented in this encounter Care Teams Carbon Brushes Assembler Relationship Specialty Start Date End Date Elsewhere, Pcp PCP - General Internal Medicine 01/14/22 documented as of this encounter
--- OUTSIDE RECORDS SUMMARY | 2022-09-02 13:16 | XMS_ITS | Encounter Summary ---
:1935 Author Organization [facility] Address [address] [place] [address] Care Team Providers Name Role Phone Elsewhere, Pcp Primary Care Provider Unavailable Encounter Details Date Type Department Care Team Description 05/02/2022 Clinical Communication Department of Heladio Meadows Radiology, Didier Layton R.N. [facility], in [address] [place] [address] [place] [address] [place], [place] [phone] (Work) [phone] Social History Tobacco Use Types Packs/Day Years [...] you attend congregational or Patient refused 2021 zoroastrian services? 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 - 05/02/2022 9:23 AM CDT We received a notification from [facility] appointment coordinators indicating that Mr. Chery has decided to cancel his scheduled suprapubic catheter placement. I called the [facility] appointment coordinators to verify this information. The procedure is canceled for now. documented in this encounter Plan of Treatment Upcoming Encounters Date Type Specialty Care Team Description 09/03/2022 Telemedicine Urology Albert Waller M.D. [address] [place] [phone] (Wo rk) documented as of this encounter Visit Diagnoses Not on filedocumented in this encounter Care Teams Housekeeping/Laundry Supervisor Relationship Specialty Start Date End Date Elsewhere, Pcp PCP - General Internal Medicine 01/14/22 documented as of this encounter
--- OUTSIDE RECORDS SUMMARY | 2022-09-02 13:16 | XMS_ITS | Encounter Summary ---
:1935 Author Organization [facility] Address [address] [place] [address] Care Team Providers Name Role Phone Elsewhere, Pcp Primary Care Provider Unavailable Reason for Referral Outpatient (Routine) - Closed Specialty Diagnoses / Procedures Referred By Contact Refer red To Contact Radiology Diagnoses Malignant Neoplasm Of Bladder (HCC) Hydronephrosis Gibran Ruvalcaba M.D. [facility] Procedures IR Nephrostomy Tube Exchange Left IR Nephrostomy Tube Check Left 200 [place] [address] Referral ID Status Reason Start Date Expiration Date Visits Requ ested Visits Authorized [id number] Closed 07/01/2022 07/01/2023 1 1 Encounter Details Date Type Department Care Team Description 07/01/2022 Clinical Communication Department of Urology Analisa Ruvalcaba in [facility] lonny Gardner M.D. 200 [facility] 200 [place] [address] [phone] Social History Tobacco Use Types Packs/Day Years [...] you attend temple or Patient refused 2021 jehovah's witness services? Do you belong to any clubs or No 05/17/2022 organizations such as temple groups, unions, [employer] or athletic groups, or school groups? 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 documented in this encounter Plan of Treatment Upcoming Encounters Date Type Specialty Care Team Description 09/03/2022 Telemedicine Urology Albert Waller M.D. [address] [place] [address] (Wo rk) documented as of this [...] d raining. TECHNIQUE: Prone positioning. Fluoroscop ic scouts image demonstrates the likely malpositioning of the [...] Over a torque wire, a new 12 Icelandic by 25 cm pigtail catheter was advanced [...] d raining. TECHNIQUE: Prone positioning. Fluoroscop ic scouts image demonstrates the likely malpositioning of the [...] Over a torque wire, a new 12 Icelandic by 25 cm pigtail catheter was advanced [...] Hydronephrosis documented in this encounter Care Teams Roof Panel Hanger Relationship Specialty Start Date End Date Elsewhere, Pcp PCP - General Internal Medicine 01/14/22 documented as of this encounter
--- OUTSIDE RECORDS SUMMARY | 2022-09-02 13:16 | XMS_ITS | Encounter Summary ---
:1935 Author Organization [facility] Address [address] [place] [address] Care Team Providers Name Role Phone Elsewhere, Pcp Primary Care Provider Unavailable Reason for Referral MRI/CAT/PET Scan (Routine) - Closed Specialty Diagnoses / Procedures Referred By Contact Refer red To Contact Radiology Diagnoses Hydronephrosis Armida Botello APRN, [facility] Procedures CT Urogram without and with IV Contrast C.N.P., D.N.P. 200 [place] [address] Referral ID Status Reason Start Date Expiration Date Visits Requ ested Visits Authorized [id number] Closed 05/17/2022 05/17/2023 1 1 utpatient (Routine) - Closed Specialty Diagnoses / Procedures Referred By Contact Refer red To Contact Diagnoses Hydronephrosis Malignant Neoplasm Of Bladder (HCC) Armida Botello APRN, [facility] Procedures URO Cystoscopy (general) C.N.P., D.N.P. 200 [place] [address] Referral ID Status Reason Start Date Expiration Date Visits Requ ested Visits Authorized [id number] Closed 05/17/2022 05/17/2023 1 1 utpatient (Routine) - Closed Specialty Diagnoses / Procedures Referred By Contact Refer red To Contact Urology Amrida Botello APRN, C.N.PJluis, [facility] D.N.P. [address] [place] [phone] Referral ID Status Reason Start Date Expiration Date Visits Requ ested Visits Authorized [id number] Closed 05/17/2022 05/17/2023 1 1 utpatient (Routine) - Closed Specialty Diagnoses / Procedures Referred By Contact Refer red To Contact Diagnoses Hydronephrosis Malignant Neoplasm Of Bladder (HCC) Retention Urinary Armida Botello APRN, [facility] Procedures URO Urethral cath removal & voiding trial (UCO/VT) YolisNRichelle, D.N.P. [address] [place] [phone] Referral ID Status Reason Start Date Expiration Date Visits Requ ested Visits Authorized [id number] Closed 05/17/2022 05/17/2023 1 1 Reason for Visit Outpatient (Routine) - Closed Specialty Diagnoses / Procedures Referred By Contact Refer red To Contact Urology Manny Anderson M .D. Alamiri, Jamal M, M.B., [address] [place] [address] B.., [place] [address] [address] [place] [address] [place] [address] Phone: Fax: Referral ID Status Reason Start Date Expiration Date Visits Requ ested Visits Authorized [id number] Closed 04/16/2022 04/16/2023 1 1 Encounter Details Date Type Department Care Team Description 05/17/2022 Office Visit Department of Urology Bassam Klein Neoplasm Of Bladder (HCC) (Primary Dx); in [place], [place]yn Hydronephrosis; [place] [address] [facility] Retention Urinary; [address] [place], [place] Diabetes Mellitus Type 2 Wit h Other Diabetic Kidney Complication Hyperglycemic ([place]CC) [place] [address] [phone] Social History Tobacco Use Types Packs/Day Years [...] you attend yazidism or Patient refused 2021 jehovah's witness services? 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 - 05/17/2022 11:00 AM CDT SUBJECTIVE REQUESTING PROVIDER Manny Anderson M.D. CHIEF COMPLAINT / REASON FOR VISIT Follow-up Patient seen on Dr. Klein's calendar HISTORY OF PRESENT ILLNESS Mr. Chery is a 86 y.o. male who presents today in follow-up. He presents in a wheelchair today accompanied by his and wkutjlfe-nf-ktx. This is a patient of the chief [...] uncomfortable for the patient and both his xwfgqarl-tv-zfj and report he was able to urinate [...] Waller M.D. [address] [place] [address] (Wo rk) Scheduled Orders Name Type [...] through the urethra. 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 Unable to transverse cystosco pe related to notable discomfort. Given patient discomfort the procedure w as evacuated. Cystoscope was removed. ??He is currently performing in termittent catheterization with 14 Guyanese catheter. IMPRESSION: #[address] [...] 05/17/2022 DTL Black/ mL/min/BSA 4:03 PM CDT Trinidadian Comment: ----ADDITIONAL INFORMATION---- Estimated GFR calculated using [...] Address City/State/ZIP Code Phon e Number [facility] - [address] [place], [place] [address] [facility] [place] [address] [facility] [employer] [facility] [address] documented in this encounter Visit Diagnoses Diagnosis Malignant Neoplasm Of Bladder (HCC) - Pr imary Hydronephrosis Retention Urinary 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
--- OUTSIDE RECORDS SUMMARY | 2022-09-02 13:16 | XMS_ITS | Encounter Summary ---
:1935 Author Organization [facility] Address [address] [place] [address] Care Team Providers Name Role Phone Elsewhere, Pcp Primary Care Provider Unavailable Encounter Details Date Type Department Care Team Description 04/19/2022 Documentation Department of Radiation Manny Anderson, Oncology in [place] [address] [address] [facility] [address] [place] [phone] (Wo rk) Social History Tobacco Use Types [...] you attend caodaism or Patient refused 2021 mandaeism services? 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 - 04/19/2022 11:59 PM CDT DIAGNOSIS: 1. Malignant Neoplasm Of Bladder (HCC) Attending Physician: Manny Anderson M.D. ([phone]) Treatment Intent: Curative Concomitant Therapy: None Single Plan Treatment Course: 1xBladder Plan ID Fractions Dose / Fraction (cGy) Dose Treated (cGy) Dose Planned (cGy) First Treatment Last Treatment Elapsed Days [id number] 3600 04/02/2022 04/19/2022 17 Course [...] Koch R.N., 05/03/2022 2:46 PM CDT [facility] [address] [place] [address] documented in this encounter Plan of Treatment Upcoming Encounters Date Type Specialty Care Team Description 09/03/2022 Telemedicine Urology Albert Waller M.D. [address] [place] [phone] (Wo rk) documented as of this encounter Visit Diagnoses Diagnosis Malignant Neoplasm Of Bladder (HCC) - Pr imary documented in this encounter Care Teams Toy Department Manager Relationship Specialty Start Date End Date Elsewhere, Pcp PCP - General Internal Medicine 01/14/22 documented as of this encounter
--- OUTSIDE RECORDS SUMMARY | 2022-09-02 13:16 | XMS_ITS | Encounter Summary ---
:1935 Author Organization [facility] Address [address] [place] [address] Care Team Providers Name Role Phone Elsewhere, Pcp Primary Care Provider Unavailable Reason for Referral Outpatient (Routine) - Closed Specialty Diagnoses / Procedures Referred By Contact Refer red To Contact Diagnoses Malignant Neoplasm Of Bladder (HCC) Claude Loaiza MPAS, [facility] Procedures URO Nephrostogram P.A.-C. 200 [place], [place] [phone] Referral ID Status Reason Start Date Expiration Date Visits Requ ested Visits Authorized [id number] Closed 06/14/2022 06/14/2023 1 1 utpatient (Routine) - Closed Specialty Diagnoses / Procedures Referred By Contact Refer red To Contact Diagnoses Malignant Neoplasm Of Bladder (HCC) Claude Loaiza MPAS, [facility] Procedures Cystoscopy (specific provider) P.A.-C. 200 [place], [place] [address] Referral ID Status Reason Start Date Expiration Date Visits Requ ested Visits Authorized [id number] Closed 06/14/2022 06/14/2023 1 1 Reason for Visit Outpatient (Routine) - Closed Specialty Diagnoses / Procedures Referred By Contact Refer red To Contact Urology Armida Botello, EDWARD, C.N.P., [facility] D.N.P. 200 [place] [address] Referral ID Status Reason Start Date Expiration Date Visits Requ ested Visits Authorized [id number] Closed 05/17/2022 05/17/2023 1 1 Encounter Details Date Type Department Care Team Description 06/14/2022 Comprehensive Visit Department of Gibran Ruvalcaba Neoplasm Urology in [place] Gardner Of Bladder ([facility]) [place], [place] 200 [facility] (Primary Dx) 200 [place] [phone] Social History Tobacco Use Types Packs/Day Years [...] you attend hindu or Patient refused 2021 islam services? 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 Patient was 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 Chery, his , and his pwzcwooh-bh-wlh in clinic today in conjunction with Dr. [...] for the patient today. This includes both coqn-hb-pgex and kcegshs-uu-cszt time. documented in this encounter Plan of Treatment Upcoming Encounters Date Type Specialty Care Team Description 09/03/2022 Telemedicine Urology Albert Waller M.D. [address] [place] [address] (Wo rk) documented as of this [...] imary documented in this encounter Care Teams Wood Router Hand Relationship Specialty Start Date End Date Elsewhere, Pcp PCP - General Internal Medicine 01/14/22 documented as of this encounter
--- OUTSIDE RECORDS SUMMARY | 2022-09-02 13:16 | XMS_ITS | Encounter Summary ---
:1935 Author Organization [facility] Address [address] [place] [address] Care Team Providers Name Role Phone Elsewhere, Pcp Primary Care Provider Unavailable Reason for Referral Outpatient (Routine) - Closed Specialty Diagnoses / Procedures Referred By Contact Refer red To Contact Urology Claude Loaiza M PAS, P.A.-C. [facility] [address] [place] [address] Referral ID Status Reason Start Date Expiration Date Visits Requ ested Visits Authorized [id number] Closed 06/14/2022 06/13/2025 1 1 Scheduling Instructions Phone visit to discuss results of CTU an d follow up RI/CAT/PET Scan (Routine) - Closed Specialty Diagnoses / Procedures Referred By Contact Refer red To Contact Radiology Diagnoses Malignant Neoplasm Of Bladder (HCC) Claude Loaiza MPAS, [facility] Procedures CT Urogram without and with IV Contrast PVic [address] [place] [address] Referral ID Status Reason Start Date Expiration Date Visits Requ ested Visits Authorized [id number] Closed 06/14/2022 06/14/2023 1 1 utpatient (Routine) - Closed Specialty Diagnoses / Procedures Referred By Contact Refer red To Contact Radiology Diagnoses Malignant Neoplasm Of Bladder (HCC) Claude Loaiza MPAS, [facility] Procedures IR Nephrostomy Tube Check Left PVic [address] [place] [address] Referral ID Status Reason Start Date Expiration Date Visits Requ ested Visits Authorized [id number] Closed 06/14/2022 06/14/2023 1 1 Reason for Visit Outpatient (Routine) - Closed Specialty Diagnoses / Procedures Referred By Contact Refer red To Contact Diagnoses Malignant Neoplasm Of Bladder (HCC) Claude Loaiza MPAS, [facility] Procedures Cystoscopy (specific provider) P.Becky.-CJluis [address] [place] [address] Referral ID Status Reason Start Date Expiration Date Visits Requ ested Visits Authorized [id number] Closed 06/14/2022 06/14/2023 1 1 Encounter Details Date Type Department Care Team Description 06/14/2022 Procedure visit Department of Urology Gibran Ruvalcaba Neoplasm Of in Jj Batista M.D. Bladder (HCC) (Primary [place] 200 [facility] D[facility]) 200 [place] [address] [phone] Social History Tobacco Use Types Packs/Day Years [...] you attend moravian or Patient refused 2021 mormon services? 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 - 06/14/2022 1:30 PM CDT Patient was seen for a cystoscopy procedure. Cystoscope CYF-VH #[id number] was used during today's cystoscopy procedure. Accessories used: cystoscope reusable (sterilized) stop cock Load number from processing via [employer]: [id number] With Nephrostogram and urethral dilation, consent was obtained. documented in this encounter Procedure Notes Gibran Ruvalcaba M.D. - 06/14/2022 1:30 PM CDTAssociated Order(s): URO Nephrostogram Pre-Procedure Diagnose(s): Malignant Neoplasm Of Bladder (HCC) URO Nephrostogram Date/Time: 06/14/2022 2:50 PM Performed by: Gibran Ruvalcaba M.D. Authorized by: Claude Loaiza, [facility], P.A.-C. Performed a left nephrostogram. [...] patient is receiving CIC with a 14 Iraqi straight will continue this. I took the [...] M.D. [address] [place] [address] (Wo rk) Scheduled Referrals Name Type [...] proc edure are in the results section. [place] INJ ANTEGRD Routine 06/14/2022 2:29 PM Malignant [...] nephrostomy tube was removed and a [address] aced. A glide head [...] nephrostomy tube was removed and a [address] aced. A glide head [...] demonstrates a UPJ stenosis. NR Claude ZELAYA, PBe. IMG IR PROCEDURES CT Urogram [...] dose documented in this encounter Care Teams Court Bailiff Relationship Specialty Start Date End Date Elsewhere, Pcp PCP - General Internal Medicine 01/14/22 documented as of this encounter
--- OUTSIDE RECORDS SUMMARY | 2022-09-02 13:16 | XMS_ITS | Encounter Summary ---
:1935 Author Organization [facility] Address [address] [place] [address] Care Team Providers Name Role Phone Elsewhere, Pcp Primary Care Provider Unavailable Reason for Visit Outpatient (Routine) - Closed Specialty Diagnoses / Procedures Referred By Contact Refer red To Contact Diagnoses Malignant Neoplasm Of Bladder (HCC) Claude Loaiza, [facility], [facility] Procedures Cystoscopy (specific provider) P.A.-C. 200 [place] [address] Referral ID Status Reason Start Date Expiration Date Visits Requ ested Visits Authorized [id number] Closed 06/14/2022 06/14/2023 1 1 Encounter Details Date Type Department Care Team Description 06/14/2022 Procedure visit Department of Urology Gibran Ruvalcabaant Neoplasm Of in Jj Batista M.D. Bladder (HCC) [place] 200 [facility] 200 [place] [phone] Social History Tobacco Use Types Packs/Day Years [...] you attend evangelical or Patient refused 2021 temple services? Do you belong to any clubs or No 05/17/2022 organizations such as evangelical groups, unions, fraDustcloud or athletic groups, or school groups? 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 [address] [place] [address] (Wo rk) documented as of this encounter Procedures Procedure Name Priority Date/Time Associated Comments Diagnosis MD INJ ANTEGRD Routine 06/14/2022 2:29 PM Malignant [...] imary documented in this encounter Care Teams Digester Cook Relationship Specialty Start Date End Date Elsewhere, Pcp PCP - General Internal Medicine 01/14/22 documented as of this encounter
--- OUTSIDE RECORDS SUMMARY | 2022-09-02 13:16 | XMS_ITS | Encounter Summary ---
:1935 Author Organization [facility] Address [address] [place] [address] Care Team Providers Name Role Phone Elsewhere, Pcp Primary Care Provider Unavailable Encounter Details Date Type Department Care Team Description 05/17/2022 Hospital Encounter Department of Armida Botello nephrosis; Laboratory Medicine L, CIVIL TRANSPORTATION ENGINEER, Tavia t Neoplasm Of Bladder (HCC) and Pathology, C.N.P., D.N.PFormerly [facility] in [address] [place] [address] [place] [address] [place], [place] [phone] (Work) [phone] Social History Tobacco Use Types Packs/Day Years [...] you attend taoist or Patient refused 2021 presybeterian services? 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 [address] [place] [address] (Wo rk) documented as of this [...] 05/17/2022 DTL Black/ mL/min/BSA 4:03 PM CDT Slovak Comment: ----ADDITIONAL INFORMATION---- Estimated GFR calculated using [...] Address City/State/ZIP Code Phon e Number [facility] - [address] [place], [place] [address] [facility] [place] [address] [facility] [address] documented in this encounter Visit Diagnoses Diagnosis Hydronephrosis Malignant Neoplasm Of Bladder (HCC) documented in this encounter Care Teams Racehorse Trainer Relationship Specialty Start Date End Date Elsewhere, Pcp PCP - General Internal Medicine 01/14/22 documented as of this encounter
--- OUTSIDE RECORDS SUMMARY | 2022-09-02 13:16 | XMS_ITS | Encounter Summary ---
:1935 Author Organization [facility] Address [address] [place] [address] Care Team Providers Name Role Phone Elsewhere, Pcp Primary Care Provider Unavailable Reason for Visit Reason Comments Appointment Cancelled Encounter Details Date Type Department Care Team Description 05/21/2022 Clinical Communication Department of Adonay Klein Urology in Bassam Ayala M.D. Cancelled [place], [facility] [address] [place], [place] [address] [facility] [address] [place], [place] [phone] (Work) [phone] Social History Tobacco Use Types Packs/Day Years [...] you attend adventist or Patient refused 2021 religion services? 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 [address] [place], [place] [address] (Wo rk) documented as of this encounter Visit Diagnoses Not on filedocumented in this encounter Care Teams Environmental Planner Relationship Specialty Start Date End Date Elsewhere, Pcp PCP - General Internal Medicine 01/14/22 documented as of this encounter
--- OUTSIDE RECORDS SUMMARY | 2022-09-02 13:16 | XMS_ITS | Encounter Summary ---
:1935 Author Organization [facility] Address [address] [place] [address] Care Team Providers Name Role Phone Elsewhere, Pcp Primary Care Provider Unavailable Encounter Details Date Type Department Care Team Description 06/14/2022 Orders Only Department of Urology in [place], [place] GARCIA PEmaC. 200 [facility] 200 [place] [address] [place], [place] [phone] (Wo rk) Social History Tobacco Use Types [...] you attend adventist or Patient refused 2021 scientology services? 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 [address] [place] [address] (Wo rk) documented as of this encounter Visit Diagnoses Not on filedocumented in this encounter Care Teams Csm Consultant Relationship Specialty Start Date End Date Elsewhere, Pcp PCP - General Internal Medicine 01/14/22 documented as of this encounter
--- OUTSIDE RECORDS SUMMARY | 2022-09-02 13:16 | XMS_ITS | Encounter Summary ---
:1935 Author Organization [facility] Address [address] [place] [address] Care Team Providers Name Role Phone Elsewhere, Pcp Primary Care Provider Unavailable Reason for Referral Outpatient (Routine) - Authorized Specialty Diagnoses / Procedures Referred By Contact Refer red To Contact Nura David IV, M.D. [facility] 200 [place], [place] [phone] Referral ID Status Reason Start Date Expiration Date Visits V isits Requested Authorized [id number] Authorized 04/29/2022 04/29/2023 [address] Bassam Klein calendar Encounter Details Date Type Department Care Team Description 04/29/2022 Orders Only Department of Urology in [place] David is A [place], [place] Ashtyn COBIAN 200 [facility] 200 [place] [address] [place], [place] [phone] (Wo rk) Social History Tobacco Use Types [...] you attend anabaptist or Patient refused 2021 spiritism services? Do you belong to any clubs or No 05/17/2022 organizations such as anabaptist groups, unions, fraPluristem [employer]rapeutics or athletic groups, or school groups? 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 [address] [place] [address] (Wo rk) Scheduled Referrals Name Type Priority Associated Diagnoses Order S chedule NonF2F phone Outpatient Referral Routine Expected : visit 04/29/2022 (Approximate), Expires: 2022 documented as of this encounter Visit Diagnoses Not on filedocumented in this encounter Care Teams Campaign Management Specialist Relationship Specialty Start Date End Date Elsewhere, Pcp PCP - General Internal Medicine 01/14/22 documented as of this encounter
--- OUTSIDE RECORDS SUMMARY | 2022-09-02 13:16 | XMS_ITS | Encounter Summary ---
:1935 Author Organization [facility] Address [address] [place] [address] Care Team Providers Name Role Phone Elsewhere, Pcp Primary Care Provider Unavailable Reason for Referral Outpatient (Routine) - Closed Specialty Diagnoses / Procedures Referred By Contact Refer red To Contact Urology Manny Anderson M .D. Alamiri, Jamal M, M.B., [address] [facility] [place].., [place] [address] [address] [place] [address] Phone: Fax: Referral ID Status Reason Start Date Expiration Date Visits Requ ested Visits Authorized [id number] Closed 04/16/2022 04/16/2023 1 1 Radiation Therapy (Routine) - Authorized Specialty Diagnoses / Procedures Referred By Contact Refer red To Contact Diagnoses Malignant Neoplasm Of Bladder (HCC) Manny Anderson M.D. [facility] Procedures Management Visit [address] [place] [address] Referral ID Status Reason Start Date Expiration Date Visits V isits Requested Authorized [id number] Authorized 03/05/2022 03/05/2023 10 10 Reason for Visit Radiation Therapy (Routine) - Authorized Specialty Diagnoses / Procedures Referred By Contact Refer red To Contact Diagnoses Malignant Neoplasm Of Bladder (HCC) Manny Anderson M.D. [facility] Procedures Management Visit [address] [place], [place] [address] Referral ID Status Reason Start Date Expiration Date Visits V isits Requested Authorized [id number] Authorized 03/05/2022 03/05/2023 10 10 Encounter Details Date Type Department Care Team Description 04/16/2022 Hospital Encounter Department of Manny Anderson Neoplasm Radiation Oncology Ashtyn Dubois Of Bladder (HCC) in [place], [address] [place], [place] [address] [facility] [address] [place], [place] [phone] (Work) [phone] Social History Tobacco Use Types Packs/Day Years [...] you attend denominational or Patient refused 2021 anabaptist services? 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 Henok Chrey is an 86 y.o. 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 He is now receiving twice weekly radiation therapy. Treatment Course: 1xBladder Plan ID Fractions Dose / Fraction (cGy) Dose Treated (cGy) Dose Planned (cGy) First Treatment Last Treatment Elapsed Days [id number] 3600 04/02/2022 04/16/2022 14 Course Summary 04/02/2022 04/16/2022 14 Oncology History Malignant Neoplasm Of Bladder (HCC) 07/13/2021 Other PSA 1.14 ng/mL 01/24/2022 Other The patient presented to the [facility] ED with a chief complaint [...] was performed by Dr. Kurtis Bach at [facility] and demonstrated a large medial lobe of the prostate, 3 cm, with papillary bladder mass, 5 cm, the left bladder wall obstructing the left UO. The patient reported a history of gross hematuria for months and difficulty emptying his bladder. Discussed that the patient ideally would need TURBT and bilateral retrogrades. Patient will need to see his director of architecture for surgical clearance, he is a poor candidate for surgery. 02/08/2022 Other Urology consultation at [facility] with Dr. David Day who [...] urethral catheter and nephrostomy tube. Referral to [facility] provider. 03/12/2022 - Radiation Therapy [...] for Urology follow up on our [facility]. He will contact us with any [...] Manny Anderson M.D. 04/16/2022 6:46 PM CDT [facility] [address] [place] [address] documented in this encounter Plan of Treatment Upcoming Encounters Date Type Specialty Care Team Description 09/03/2022 Telemedicine Urology Albert Waller M.D. [address] [place] [address] (Wo rk) Scheduled Orders Name Type [...] documented in this encounter Care Teams Manager Inpatient Relationship Specialty Start Date End Date Elsewhere, Pcp PCP - General Internal Medicine 01/14/22 documented as of this encounter
--- OUTSIDE RECORDS SUMMARY | 2022-09-02 13:16 | XMS_ITS | Encounter Summary ---
:1935 Author Organization [facility] Address [address] [place] [address] Care Team Providers Name Role Phone Elsewhere, Pcp Primary Care Provider Unavailable Reason for Referral Outpatient (Routine) - Closed Specialty Diagnoses / Procedures Referred By Contact Refer red To Contact Radiology Diagnoses Malignant Neoplasm Of Bladder (HCC) Nura David IV, [facility] Procedures IR Nephrostomy Tube Exchange Left M.D. [address] [place], [place] [address] Referral ID Status Reason Start Date Expiration Date Visits Requ ested Visits Authorized [id number] Closed 02/22/2022 02/22/2023 1 1 Reason for Visit Outpatient (Routine) - Closed Specialty Diagnoses / Procedures Referred By Contact Refer red To Contact Radiology Diagnoses Malignant Neoplasm Of Bladder (HCC) Nura David IV [facility] Procedures IR Nephrostomy Tube Exchange Left M.D. 200 [place] [address] Referral ID Status Reason Start Date Expiration Date Visits Requ ested Visits Authorized [id number] Closed 02/22/2022 02/22/2023 1 1 Encounter Details Date Type Department Care Team Description 05/20/2022 Hospital Encounter Department of Fr diana David IV, M.D. 200 [place] [phone] Malignant Neoplasm Radiology in Bryon Wu M.D., Ph.D. [address] [place] [address] Of Bladder (HCC) [place], [place] [address] [place] [phone] Social History Tobacco Use Types Packs/Day Years [...] you attend adventism or Patient refused 2021 islam services? 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 [address] [place] [address] (Wo rk) documented as of this [...] 05/20/2022 5:48 PM CDT Routine exchange 10 Canadian left percutaneous nephrostomy tube. Drain to gravity [...] lidoca ine used for local anesthesia. Fluoroscopic audiology doctor image demonstrates unchanged position of the l eft 10 Canadian percutaneous nephrostomy tube. Injection of contrast demonstrated a locking loop wit hin the markedly dilated left renal pelvis with high-grade narrowing at the left UPJ. Drain removed in its entirety over a guidewire and a new 10 Canadian locking loop catheter advanced with lock ing [...] lidoca ine used for local anesthesia. Fluoroscopic audiology doctor image demonstrates unchanged position of the l eft 10 Canadian percutaneous nephrostomy tube. Injection of contrast demonstrated a locking loop wit hin the markedly dilated left renal pelvis with high-grade narrowing at the left UPJ. Drain removed in its entirety over a guidewire and a new 10 Canadian locking loop catheter advanced with lock ing [...] blood loss: minimal.. IMPRESSION: Routine exchange 10 Canadian left percutan eous nephrostomy tube. Drain to [...] breaths/minute. documented in this encounter Care Teams Section Crews Activities Clerk Relationship Specialty Start Date End Date Elsewhere, Pcp PCP - General Internal Medicine 01/14/22 documented as of this encounter
--- OUTSIDE RECORDS SUMMARY | 2022-09-02 13:16 | XMS_ITS | Encounter Summary ---
:1935 Author Organization [facility] Address [address] [place] [address] Care Team Providers Name Role Phone Elsewhere, Pcp Primary Care Provider Unavailable Encounter Details Date Type Department Care Team Description 04/19/2022 Hospital Encounter Department of Radiation Calin Anderson, [facility] [place] [address] [place] [phone] [phone] Social History Tobacco Use Types Packs/Day Years [...] you attend christian or Patient refused 2021 hinduism services? 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 [address] [place] [address] (Wo rk) documented as of this encounter Visit Diagnoses Not on filedocumented in this encounter Care Teams Book Agent Relationship Specialty Start Date End Date Elsewhere, Pcp PCP - General Internal Medicine 01/14/22 documented as of this encounter
--- OUTSIDE RECORDS SUMMARY | 2022-09-02 13:16 | XMS_ITS | Encounter Summary ---
:[address] [facility] Address [address] [place] [address] Care Team Providers Name Role Phone Elsewhere, Pcp Primary Care Provider Unavailable Reason for Visit Outpatient (Routine) - Closed Specialty Diagnoses / Procedures Referred By Contact Refer red To Contact Diagnoses Hydronephrosis Malignant Neoplasm Of Bladder (HCC) Armida Botello APRN, [facility] Procedures URO Cystoscopy (general) C.N.P., D.N.P. [address] [place] [phone] Referral ID Status Reason Start Date Expiration Date Visits Requ ested Visits Authorized [id number] Closed 05/17/2022 05/17/2023 1 1 Encounter Details Date Type Department Care Team Description 06/03/2022 Procedure visit Department of Armida Botello APRN, C.N.P., D.N.P. [address] [place] [address] Stricture Urethral Postoperative Male (P rimary Dx); Urology in Lo Sewell APRN, C.N.P., D.N.P. [address] [place] [phone] Hydronephrosis; [place], [place] Malignant Neoplasm Of Bladde r (HCC) [address] [place] [phone] Social History Tobacco Use Types Packs/Day Years [...] you attend muslim or Patient refused 2021 advent services? 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 - 06/03/2022 8:00 AM CDT Patient was seen for a cystoscopy procedure. Cystoscope CYF-VH #[id number] was used during today's cystoscopy procedure. 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 Unable to transverse cystoscope related to notable discomfort. Given patient discomfort the procedure was evacuated. Cystoscope was removed. He is currently performing intermittent catheterization with 14 Togolese catheter. IMPRESSION: #1 Distal penile urethral stricture [...] Waller M.D. [address] [place] [address] (Wo rk) documented as of [...] through the urethra. 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 Unable to transverse cystosco pe related to notable discomfort. Given patient discomfort the procedure w as evacuated. Cystoscope was removed. ??He is currently performing in termittent catheterization with 14 Togolese catheter. IMPRESSION: #[address] [...] (HCC) documented in this encounter Care Teams Ergonomic Specialist Relationship Specialty Start Date End Date Elsewhere, Pcp PCP - General Internal Medicine 01/14/22 documented as of this encounter
--- OUTSIDE RECORDS SUMMARY | 2022-09-02 13:17 | XMS_ITS | Encounter Summary ---
:1935 Author Organization [facility] Address [address] [place] [address] Care Team Providers Name Role Phone Elsewhere, Pcp Primary Care Provider Unavailable Reason for Visit Reason Comments Appointment Pre-visit Testing Orders Encounter Details Date Type Department Care Team Description 03/26/2022 Clinical Communication Department of Adonay Sethi; Urology in [place] Harris, Pre-visit Test aidee Batista, Ph.D. Orders [place] [address] [place] [address] Social History Tobacco Use Types Packs/Day Years [...] or relatives? How often do you attend yarsanism or Patient refused 2021 yarsanism services? Do you belong to any clubs or No 05/17/2022 organizations such as yarsanism groups, unions, fraternal or athletic groups, or [...] at Date Recorded Male 09/10/2018 8:41 AM SUEDE CLEANER documented as of this encounter Miscellaneous Notes [...] an appt to do Radiation Therapy in [place] 04/02. Lucille states they cannot do that all . Lucille would like a call to discuss what is happening @ [phone]. Thank you. documented in this encounter Plan of Treatment Upcoming Encounters Date Type Specialty Care Team Description 09/03/2022 Telemedicine Urology Albert Waller M.D. [address] [place] [phone] (Wo ) documented as of this encounter Visit Diagnoses Not on filedocumented in this encounter Care Teams Proofsheet Corrector Relationship Specialty Start Date End Date Elsewhere, Pcp PCP - General Internal Medicine 01/14/22 documented as of this encounter
--- OUTSIDE RECORDS SUMMARY | 2022-09-02 13:17 | XMS_ITS | Encounter Summary ---
:1935 Author Organization [facility] Address [address] [place] [address] Care Team Providers Name Role Phone Elsewhere, Pcp Primary Care Provider Unavailable Reason for Referral Radiation Therapy (Routine) - Authorized Specialty Diagnoses / Procedures Referred By Contact Refer red To Contact Diagnoses Malignant Neoplasm Of Bladder (HCC) Manny Anderson M.D. [facility] Procedures Management Visit [address] [place], [place] [address] Referral ID Status Reason Start Date Expiration Date Visits V isits Requested Authorized [id number] Authorized 03/05/2022 03/05/2023 10 10 Reason for Visit Radiation Therapy (Routine) - Authorized Specialty Diagnoses / Procedures Referred By Contact Refer red To Contact Diagnoses Malignant Neoplasm Of Bladder (HCC) Manny Anderson M.D. [facility] Procedures Management Visit [address] [place], [place] [address] Referral ID Status Reason Start Date Expiration Date Visits V isits Requested Authorized [id number] Authorized 03/05/2022 03/05/2023 10 10 Encounter Details Date Type Department Care Team Description 04/09/2022 Hospital Encounter Department of Isidro Anderson M.D. [address] [place] [phone] Malignant Neoplasm Radiation Oncology Heladio Del Real M.D. [address] [place] [address] Of Bladder (HCC) in [place], [place] [address] [place] [address] Social History Tobacco Use Types [...] you attend yarsanism or Patient refused 2021 jain services? 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 Avoid touching your eyes, nose and mouth. Clean and disinfect household surfaces daily and high- touch surfaces frequently throughout the day. documented in this encounter Plan of Treatment Upcoming Encounters Date Type Specialty Care Team Description 09/03/2022 Telemedicine Urology Albert Waller M.D. [address] [place] [phone] (Wo ) Scheduled Orders Name Type Priority Associated Diagnoses Order S chedule Management Visit Radiation Oncology Routine Malignant Neoplasm Once for 1 Of Bladder (HCC) Occurrences starting 04/09/2022 unti l 04/09/2022 documented as of this encounter Visit Diagnoses Diagnosis Malignant Neoplasm Of Bladder (HCC) documented in this encounter Care Teams Roving Sizer Relationship Specialty Start Date End Date Elsewhere, Pcp PCP - General Internal Medicine 01/14/22 documented as of this encounter
--- OUTSIDE RECORDS SUMMARY | 2022-09-02 13:17 | XMS_ITS | Encounter Summary ---
:1935 Author Organization [facility] Address [address] [place] [address] Care Team Providers Name Role Phone Elsewhere, Pcp Primary Care Provider Unavailable Reason for Visit Outpatient (Routine) - Canceled Specialty Diagnoses / Procedures Referred By Contact Refer red To Contact Radiology Diagnoses Retention Urinary Chronic Kimberly Sethi M.D., [facility] Procedures IR Genitourinary Procedure Ph.D. [address] [place] [address] Referral ID Status Reason Start Date Expiration Date Visits V isits Requested Authorized [id number] Canceled 03/25/2022 03/25/2023 1 1 Encounter Details Date Type Department Care Team Description 04/02/2022 Hospital Encounter Department of Kimberly Sethi M.D., Ph.D. Canceled (Patient: Radiology in Shoaib Poe M.D. 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 [address] [place] [address] (Wo rk) documented as of this encounter Visit Diagnoses Not on filedocumented in this encounter Care Teams Still Operator Gin Relationship Specialty Start Date End Date Elsewhere, Pcp PCP - General Internal Medicine 01/14/22 documented as of this encounter
--- OUTSIDE RECORDS SUMMARY | 2022-09-02 13:17 | XMS_ITS | Encounter Summary ---
:1935 Author Organization [facility] Address [address] [place] [address] Care Team Providers Name Role Phone Elsewhere, Pcp Primary Care Provider Unavailable Encounter Details Date Type Department Care Team Description 04/05/2022 Hospital Encounter Department of Radiation Calin Anderson, [facility] [place] [facility] [place] [address] [place] [address] [phone] Social History Tobacco Use Types Packs/Day Years [...] you attend religious or Patient refused 2021 confucianist services? 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 [address] [place] [address] (Wo rk) documented as of this encounter Visit Diagnoses Not on filedocumented in this encounter Care Teams Night Manager Relationship Specialty Start Date End Date Elsewhere, Pcp PCP - General Internal Medicine 01/14/22 documented as of this encounter
--- OUTSIDE RECORDS SUMMARY | 2022-09-02 13:17 | XMS_ITS | Encounter Summary ---
:1935 Author Organization [facility] Address [address] [place] [address] Care Team Providers Name Role Phone Elsewhere, Pcp Primary Care Provider Unavailable Encounter Details Date Type Department Care Team Description 03/26/2022 Clinical Communication Department of Radiology Harmony Starks in [facility] lonny A, RJluisN. [address] [place] [address] [address] [place] [phone] Social History Tobacco Use Types Packs/Day Years [...] attend oriental orthodox or Patient refused 2021 mandaen services? 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 ??? Patient is not on blood thinners. ??? Patient is diabetic. ??? Villarreal catheter and left nephrostomy tube currently in place. ??? COVID 19 PCR testing to be completed on: 04/01/2022. ??? Urology nurse education scheduled on 04/01/2022. ??? SURVEYOR needed for procedure. This procedure is scheduled [...] [facility]W on 05/07[facility]22. The patient is scheduled to report to [facility] Anthony Art MD at 9:00 a.m. the morning of the procedure. ??? COVID 19 PCR testing to be completed on: 05/03/2022. ??? SURVEYOR needed for procedure. documented in this encounter Plan of Treatment Upcoming Encounters Date Type Specialty Care Team Description 09/03/2022 Telemedicine Urology Albert Waller M.D. [address] [place], [place] [phone] (Wo rk) documented as of this encounter Visit Diagnoses Not on filedocumented in this encounter Care Teams Printing Assistant Relationship Specialty Start Date End Date Elsewhere, Pcp PCP - General Internal Medicine 01/14/22 documented as of this encounter
--- OUTSIDE RECORDS SUMMARY | 2022-09-02 13:17 | XMS_ITS | Encounter Summary ---
:1935 Author Organization [facility] Address [address] [place] [address] Care Team Providers Name Role Phone Elsewhere, Pcp Primary Care Provider Unavailable Encounter Details Date Type Department Care Team Description 03/26/2022 Orders Only Department of [place]ony [place] N eoplasm Of Bladder (HCC) (Primary Dx); Radiology in A, R.N. Negative COVID-19 Test (Contact With And (Suspected) Exposure To COVID-19); [place], [place] [address] [facility] Encounter For Preprocedural Laboratory E xamination (COVID-19) [address] [place] [address] [phone] Social History Tobacco Use Types Packs/Day Years [...] you attend baptist or Patient refused 2021 religion services? 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 [address] [place] [address] (Wo rk) documented as of this encounter Visit Diagnoses Diagnosis Malignant Neoplasm Of Bladder (HCC) - Pr imary Negative COVID-19 Test (Contact With And (Suspected) Exposure To COVID-19) Encounter For Preprocedural Laboratory E xamination (COVID-19) documented in this encounter Care Teams Terrazzo Journeyman Relationship Specialty Start Date End Date Elsewhere, Pcp PCP - General Internal Medicine 01/14/22 documented as of this encounter
--- OUTSIDE RECORDS SUMMARY | 2022-09-02 13:17 | XMS_ITS | Encounter Summary ---
:1935 Author Organization [facility] Address [address] [place] [address] Care Team Providers Name Role Phone Elsewhere, Pcp Primary Care Provider Unavailable Encounter Details Date Type Department Care Team Description 03/26/2022 Orders Only Department of Urology in Kimberly Sethi M .D., [place], [place] Ph.D. [address] [place] [address] Social History Tobacco Use Types Packs/Day [...] you attend congregation or Patient refused 2021 mormonism services? 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 [address] [place] [address] (Wo rk) documented as of this encounter Visit Diagnoses Not on filedocumented in this encounter Care Teams Telesales Supervisor Relationship Specialty Start Date End Date Elsewhere, Pcp PCP - General Internal Medicine 01/14/22 documented as of this encounter
--- OUTSIDE RECORDS SUMMARY | 2022-09-02 13:17 | XMS_ITS | Encounter Summary ---
:1935 Author Organization [facility] Address [address] [place] [address] Care Team Providers Name Role Phone Elsewhere, Pcp Primary Care Provider Unavailable Reason for Referral Outpatient (Routine) - Closed Specialty Diagnoses / Procedures Referred By Contact Refer red To Contact Radiation Oncology Iris Mishra P.A.-C., [facility] [address] [place] [phone] Referral ID Status Reason Start Date Expiration Date Visits Requ ested Visits Authorized [id number] Closed 03/25/2022 03/25/2023 1 1 Reason for Visit Outpatient (Routine) - Closed Specialty Diagnoses / Procedures Referred By Contact Refer red To Contact Radiation Oncology Iris Mishra P.A.-C., [facility] [address] [place] [phone] Referral ID Status Reason Start Date Expiration Date Visits Requ ested Visits Authorized [id number] Closed 03/25/2022 03/25/2023 1 1 Encounter Details Date Type Department Care Team Description 03/26/2022 Hospital Encounter Department of Manny Anderson Neoplasm Radiation Oncology Ashtyn [place] Of Bladder (HCC) in [place] [address] [facility] (Primary Dx) [place], [place] [address] [facility] [address] [place], [place] [phone] [address] (Work) [phone] Social History Tobacco Use Types Packs/Day Years [...] attend roman catholic or Patient refused 2021 jehovah's witness services? 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 Manny Anderson Home [address]: [address] [place] [phone] SUBJECTIVE History of present illness Mr. Henok [...] 01/24/2022 Other The patient presented to the [facility] ED with a chief complaint of increased [...] retrogrades. Patient will need to see his vice president risk management for surgical clearance, he is a poor candidate for surgery. 02/08/2022 Other [facility] with Dr. David Day who recommended proceeding [...] or concerns. Dr. Manny Anderson is the decorating consultant; please see attestation for further details. [...] one of our medical oncology colleagues at [facility] at the end of [...] Manny Anderson M.D. 03/26/2022 4:46 PM CDT [facility] [address] [place] [address] documented in this encounter Plan of Treatment Upcoming Encounters Date Type Specialty Care Team Description 09/03/2022 Telemedicine Urology Albert Waller M.D. [address] [place] [address] (Wo rk) Scheduled Referrals Name Type Priority Associated Order Schedule Diagnoses Radiation Oncology Outpatient Referral Routine On ce for 1 office visit Occurrences sta rting (clinic) 03/26/2022 unti l 03/26/2022 documented as of this encounter Visit Diagnoses Diagnosis Malignant Neoplasm Of Bladder (HCC) - Pr imary documented in this encounter Care Teams Dry Cleaning Manager Relationship Specialty Start Date End Date Elsewhere, Pcp PCP - General Internal Medicine 01/14/22 documented as of this encounter
--- OUTSIDE RECORDS SUMMARY | 2022-09-02 13:17 | XMS_ITS | Encounter Summary ---
:1935 Author Organization [facility] Address [address] [place] [address] Care Team Providers Name Role Phone Elsewhere, Pcp Primary Care Provider Unavailable Reason for Referral Outpatient (Routine) - Closed Specialty Diagnoses / Procedures Referred By Contact Refer red To Contact Radiation Oncology Iris Mishra P.A.-C., [facility] [address] [place] [phone] Referral ID Status Reason Start Date Expiration Date Visits Requ ested Visits Authorized [id number] Closed 03/25/2022 03/25/2023 1 1 Encounter Details Date Type Department Care Team Description 03/25/2022 Orders Only Department of Radiation Iris Mishra [facility] Neoplasm Of Oncology in [place], Eduardo, M.S. Bladder (HCC) (Primary [place] [address] [facility] Dx) [address] [place] [phone] Social History Tobacco Use Types Packs/Day Years [...] you attend hindu or Patient refused 2021 roman catholic services? Do you belong to any clubs or No 05/17/2022 organizations such as hindu groups, unions, [employer]Cash[employer] or athletic groups, or school groups? 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 [address] [place] [address] (Wo rk) Scheduled Referrals Name Type Priority Associated Diagnoses Order S chedule Radiation Oncology Outpatient Referral Routine Ex pected: office visit 03/26/2022 (clinic) (Approximate), Expires: 03/25/2023 documented as of this encounter Visit Diagnoses Diagnosis Malignant Neoplasm Of Bladder (HCC) - Pr imary documented in this encounter Care Teams Refrigerator Repair Technician Relationship Specialty Start Date End Date Elsewhere, Pcp PCP - General Internal Medicine 01/14/22 documented as of this encounter
--- OUTSIDE RECORDS SUMMARY | 2022-09-02 13:17 | XMS_ITS | Encounter Summary ---
:1935 Author Organization [facility] Address [address] [place] [address] Care Team Providers Name Role Phone Elsewhere, Pcp Primary Care Provider Unavailable Encounter Details Date Type Department Care Team Description 04/16/2022 Hospital Encounter Department of Radiation Calin Anderson, [facility] [place] [facility] [place] [address] [place] [address] [phone] Social History Tobacco Use Types Packs/Day Years [...] you attend lutheran or Patient refused 2021 scientologist services? 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 [address] [place] [address] (Wo rk) documented as of this encounter Visit Diagnoses Not on filedocumented in this encounter Care Teams Electrical Prospecting Observer Relationship Specialty Start Date End Date Elsewhere, Pcp PCP - General Internal Medicine 01/14/22 documented as of this encounter
--- OUTSIDE RECORDS SUMMARY | 2022-09-02 13:17 | XMS_ITS | Encounter Summary ---
:1935 Author Organization [facility] Address [address] [place] [address] Care Team Providers Name Role Phone Elsewhere, Pcp Primary Care Provider Unavailable Encounter Details Date Type Department Care Team Description 03/22/2022 Clinical Communication Department of Urology Flakita Bradshaw in Sherly Batista M.D. [address] [place] [address] [phone] Social History Tobacco Use Types Packs/Day Years [...] you attend muslim or Patient refused 2021 hoahaoism services? 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 [address] [place] [address] (Wo rk) documented as of this encounter Visit Diagnoses Not on filedocumented in this encounter Care Teams Cloth Classer Relationship Specialty Start Date End Date Elsewhere, Pcp PCP - General Internal Medicine 01/14/22 documented as of this encounter
--- OUTSIDE RECORDS SUMMARY | 2022-09-02 13:17 | XMS_ITS | Encounter Summary ---
:1935 Author Organization [facility] Address [address] [place] [address] Care Team Providers Name Role Phone Elsewhere, Pcp Primary Care Provider Unavailable Encounter Details Date Type Department Care Team Description 04/12/2022 Hospital Encounter Department of Radiation Calin Anderson, [facility] [place] [facility] [place] [address] [place] [address] [phone] Social History Tobacco Use Types Packs/Day Years [...] you attend religious or Patient refused 2021 scientology services? 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 [address] [place] [address] (Wo rk) documented as of this encounter Visit Diagnoses Not on filedocumented in this encounter Care Teams Bake Room Worker Relationship Specialty Start Date End Date Elsewhere, Pcp PCP - General Internal Medicine 01/14/22 documented as of this encounter
--- OUTSIDE RECORDS SUMMARY | 2022-09-02 13:17 | XMS_ITS | Encounter Summary ---
:1935 Author Organization [facility] Address [address] [place] [address] Care Team Providers Name Role Phone Elsewhere, Pcp Primary Care Provider Unavailable Reason for Visit Reason Comments Procedure Encounter Details Date Type Department Care Team Description 03/27/2022 Clinical Communication Department of Manny Anderson [facility] [address] [facility] [address] [place] [phone] Social History Tobacco Use Types Packs/Day Years [...] you attend uatsdin or Patient refused 2021 amish services? 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 [address] [place] [address] (Wo rk) documented as of this encounter Visit Diagnoses Diagnosis Malignant Neoplasm Of Bladder (HCC) - Pr imary documented in this encounter Care Teams Phlebotomist Supervisor/Instructor Relationship Specialty Start Date End Date Elsewhere, Pcp PCP - General Internal Medicine 01/14/22 documented as of this encounter
--- OUTSIDE RECORDS SUMMARY | 2022-09-02 13:17 | XMS_ITS | Encounter Summary ---
:1935 Author Organization [facility] Address [address] [place] [address] Care Team Providers Name Role Phone Elsewhere, Pcp Primary Care Provider Unavailable Encounter Details Date Type Department Care Team Description 03/22/2022 Clinical Communication Department of Urology Flakita Bradshaw in Sherly Batista M.D. [address] [place] [address] [phone] Social History Tobacco Use Types Packs/Day Years [...] you attend presybeterian or Patient refused 2021 anglican services? 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 [address] [place] [address] (Wo ) documented as of this encounter Visit Diagnoses Not on filedocumented in this encounter Care Teams Copper Miner Relationship Specialty Start Date End Date Elsewhere, Pcp PCP - General Internal Medicine 01/14/22 documented as of this encounter
--- OUTSIDE RECORDS SUMMARY | 2022-09-02 13:17 | XMS_ITS | Encounter Summary ---
:1935 Author Organization [facility] Address [address] [place] [address] Care Team Providers Name Role Phone Elsewhere, Pcp Primary Care Provider Unavailable Encounter Details Date Type Department Care Team Description 04/09/2022 Hospital Encounter Department of Radiation Calin Anderson, [facility] [place] [facility] [place] [address] [place] [address] [phone] Social History Tobacco Use Types Packs/Day Years [...] you attend hindu or Patient refused 2021 confucianism services? Do [...] Date Recorded Male 09/10/2018 8:41 AM SEWER AND INSPECTOR documented as of this encounter Medications [...] M.D. [address] [place] [address] (Wo rk) documented as of this encounter Visit Diagnoses Not on filedocumented in this encounter Care Teams Machine Washer Relationship Specialty Start Date End Date Elsewhere, Pcp PCP - General Internal Medicine 01/14/22 documented as of this encounter
--- OUTSIDE RECORDS SUMMARY | 2022-09-02 13:17 | XMS_ITS | Encounter Summary ---
:1935 Author Organization [facility] Address [address] [place] [address] Care Team Providers Name Role Phone Elsewhere, Pcp Primary Care Provider Unavailable Reason for Referral Radiation Therapy (Routine) - Authorized Specialty Diagnoses / Procedures Referred By Contact Refer red To Contact Diagnoses Malignant Neoplasm Of Bladder (HCC) Manny Anderson M.D. [facility] Procedures Management Visit [address] [place], [place] [address] Referral ID Status Reason Start Date Expiration Date Visits V isits Requested Authorized [id number] Authorized 03/05/2022 03/05/2023 10 10 Reason for Visit Radiation Therapy (Routine) - Authorized Specialty Diagnoses / Procedures Referred By Contact Refer red To Contact Diagnoses Malignant Neoplasm Of Bladder (HCC) Manny Anderson M.D. [facility] Procedures Management Visit [address] [place] [address] Referral ID Status Reason Start Date Expiration Date Visits V isits Requested Authorized [id number] Authorized 03/05/2022 03/05/2023 10 10 Encounter Details Date Type Department Care Team Description 04/02/2022 Hospital Encounter Department of Manny Anderson Neoplasm Radiation Oncology Ashtyn Dubois Of Bladder (HCC) in [place], [address] [place], [place] [address] [facility] [address] [place], [place] [phone] (Work) [phone] Social History Tobacco Use Types Packs/Day Years [...] you attend caodaism or Patient refused 2021 jewish services? Do you belong to any clubs or No 05/17/2022 organizations such as caodaism groups, unions, fraMXP4 or athletic groups, or school groups? How [...] Date Recorded Male 09/10/2018 8:41 AM SUPERVISOR OPERATIONS documented as of this encounter Last Filed [...] Bladder (HCC) SUPERVISED BY: Manny Anderson M.D. ([id number]) HISTORY OF PRESENT ILLNESS Mr. Henok Chery is an 86 y.o. 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 He is now receiving twice weekly radiation therapy. Treatment Course: 1xBladder Plan ID Fractions Dose / Fraction (cGy) Dose Treated (cGy) Dose Planned (cGy) First Treatment Last Treatment Elapsed Days [id number] [phone] 04/02/2022 04/02/2022 0 Course Summary 04/02/2022 04/02/2022 [...] Manny Anderson M.D. 04/02/2022 3:55 PM CDT [facility] [address] [place] [address] documented in this encounter Plan of Treatment Upcoming Encounters Date Type Specialty Care Team Description 09/03/2022 Telemedicine Urology Albert Waller M.D. [address] [place] [address] (Wo rk) Scheduled Orders Name Type Priority Associated Diagnoses Order S chedule Management Visit Radiation Oncology Routine Malignant Neoplasm Once for 1 Of Bladder (HCC) Occurrences starting 04/02/2022 unti l 04/02/2022 documented as of this encounter Visit Diagnoses Diagnosis Malignant Neoplasm Of Bladder (HCC) documented in this encounter Care Teams Senior International Tax Manager Relationship Specialty Start Date End Date Elsewhere, Pcp PCP - General Internal Medicine 01/14/22 documented as of this encounter
--- OUTSIDE RECORDS SUMMARY | 2022-09-02 13:17 | XMS_ITS | Encounter Summary ---
:1935 Author Organization [facility] Address [address] [place] [address] Care Team Providers Name Role Phone Elsewhere, Pcp Primary Care Provider Unavailable Encounter Details Date Type Department Care Team Description 04/02/2022 Hospital Encounter Department of Radiation Calin Anderson, [facility] [place] [facility] [place] [address] [place] [phone] Social History Tobacco Use Types Packs/Day Years [...] you attend hindu or Patient refused 2021 taoist services? 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 [address] [place] [address] (Wo rk) documented as of this encounter Visit Diagnoses Not on filedocumented in this encounter Care Teams Stock Handler Relationship Specialty Start Date End Date Elsewhere, Pcp PCP - General Internal Medicine 01/14/22 documented as of this encounter
--- OUTSIDE RECORDS SUMMARY | 2022-09-02 13:17 | XMS_ITS | Encounter Summary ---
:1935 Author Organization [facility] Address [address] [place] [address] Care Team Providers Name Role Phone Elsewhere, Pcp Primary Care Provider Unavailable Encounter Details Date Type Department Care Team Description 03/24/2022 Orders Only Department of Urology Kimberly Sethi Rete ntion Urinary in [facility] lonny Chamorro, Ph.D. Chronic (Primary Dx) [address] [place] [address] Social History Tobacco Use Types Packs/Day Years [...] you attend congregational or Patient refused 2021 latter day services? [...] at Date Recorded Male 09/10/2018 8:41 AM ACIDIZER WATER WELL documented as of this encounter Plan of Treatment Upcoming Encounters Date Type Specialty Care Team Description 09/03/2022 Telemedicine Urology Albert Waller M.D. [address] [place] [address] (Wo rk) documented as of this encounter Visit Diagnoses Diagnosis Retention Urinary Chronic - Primary documented in this encounter Care Teams Brand Ambassadors Promotional Sales Relationship Specialty Start Date End Date Elsewhere, Pcp PCP - General Internal Medicine 01/14/22 documented as of this encounter
--- OUTSIDE RECORDS SUMMARY | 2022-09-02 13:17 | XMS_ITS | Encounter Summary ---
:1935 Author Organization [facility] Address [address] [place] [address] Care Team Providers Name Role Phone Elsewhere, Pcp Primary Care Provider Unavailable Encounter Details Date Type Department Care Team Description 03/27/2022 Clinical Communication Department of Harrison Lennon, Radiation Oncology in [place], M.S[facility] [address] [place] [address] [place] [phone] [phone] Social History Tobacco Use Types Packs/Day Years [...] you attend hindu or Patient refused 2021 buddhism services? Do [...] at Date Recorded Male 09/10/2018 8:41 AM CERTIFIED SURGICAL ASSISTANT documented as of this encounter Miscellaneous [...] for a second opinion from outside of [facility]. I informed her that we will keep the appointments as outlined above but can change them if they desire. Harrison Lennon M.D., M.S. documented in this encounter Plan of Treatment Upcoming Encounters Date Type Specialty Care Team Description 09/03/2022 Telemedicine Urology Albert Waller M.D. [address] [place] [address] (Wo rk) documented as of this encounter Visit Diagnoses Not on filedocumented in this encounter Care Teams Black Studies Professor Relationship Specialty Start Date End Date Elsewhere, Pcp PCP - General Internal Medicine 01/14/22 documented as of this encounter
--- OUTSIDE RECORDS SUMMARY | 2022-09-02 13:17 | XMS_ITS | Encounter Summary ---
:1935 Author Organization [facility] Address [address] [place] [address] Care Team Providers Name Role Phone Elsewhere, Pcp Primary Care Provider Unavailable Reason for Referral Radiation Therapy (Routine) - Closed Specialty Diagnoses / Procedures Referred By Contact Refer red To Contact Diagnoses Malignant Neoplasm Of Bladder (HCC) Manny Anderson M.D. [facility] Region Procedures Initial Rad Onc Treatment Planning CT Simulation Initial Rad Onc Treatment Planning CT Simulation [address] [place], [place] [address] Referral ID Status Reason Start Date Expiration Date Visits Requ ested Visits Authorized [id number] Closed 03/05/2022 03/05/2023 1 1 Reason for Visit Radiation Therapy (Routine) - Closed Specialty Diagnoses / Procedures Referred By Contact Refer red To Contact Diagnoses Malignant Neoplasm Of Bladder (HCC) Manny Anderson M.D. [facility] Region Procedures Initial Rad Onc Treatment Planning CT Simulation Initial Rad Onc Treatment Planning CT Simulation [address] [place] [address] Referral ID Status Reason Start Date Expiration Date Visits Requ ested Visits Authorized [id number] Closed 03/05/2022 03/05/2023 1 1 Encounter Details Date Type Department Care Team Description 03/26/2022 Hospital Encounter Department of Manny Anderson Neoplasm Radiation Oncology L, M.D. Of Bladder (HCC) in [place], [facility] [address] [place], [place] [address] [facility] [address] [place], [place] [phone] (Work) [phone] Social History Tobacco Use Types Packs/Day Years [...] you attend denominational or Patient refused 2021 oriental orthodox services? [...] Date Recorded Male 09/10/2018 8:41 AM SUPERVISOR WIRE ROPE FABRICATION documented as of this encounter Medications at [...] planning. CT images were transferred to the [employer] treatment planning system, after a reference isocenter was determined and marked. Segmentation and treatment planning will take place priorto treatment delivery. Patient set up and imaging was appropriate and completed without incident. Dyslexia Teacher use:No documented in this encounter Plan of Treatment Upcoming Encounters Date Type Specialty Care Team Description 09/03/2022 Telemedicine Urology Albert Waller M.D. [address] [place] [address] (Wo rk) documented as of this [...] Time Received Time / Laterality Volume Narrative [facility] - 03/26/2022 3:27 PM CDT Manasa Willett, RTT ? 03/26/2022 ??3:29 PM Initial Rad Onc Treatment Planning CT Si mulation Date/Time: 03/26/2022 3:27 PM Performed by: Manny Anderson M.D. Authorized by: Manny Anderson M.D. Manny Anderson M.D. RADIATION ONCOLOGY ORDERABLE S Performing Organization Address City/State/ZIP Code Phon e Number [facility] na documented in this encounter Visit Diagnoses Diagnosis Malignant Neoplasm Of Bladder (HCC) documented in this encounter Care Teams School Crossing Guard Relationship Specialty Start Date End Date Elsewhere, Pcp PCP - General Internal Medicine 01/14/22 documented as of this encounter
--- OUTSIDE RECORDS SUMMARY | 2022-09-02 13:17 | XMS_ITS | Encounter Summary ---
:1935 Author Organization [facility] Address [address] [place] [address] Care Team Providers Name Role Phone Elsewhere, Pcp Primary Care Provider Unavailable Encounter Details Date Type Department Care Team Description 03/24/2022 Clinical Communication Department of Urology Hector Sethi, in [facility] lonny Chamorro, Ph.D. [address] [place] [address] Social History Tobacco Use Types Packs/Day Years [...] you attend evangelical or Patient refused 2021 pentecostalism services? 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 - 03/24/2022 8:33 AM CDT [...] M.D. [address] [place] [phone] (Wo rk) documented as of this encounter Visit Diagnoses Not on filedocumented in this encounter Care Teams Nylon Mender Relationship Specialty Start Date End Date Elsewhere, Pcp PCP - General Internal Medicine 01/14/22 documented as of this encounter
--- OUTSIDE RECORDS SUMMARY | 2022-09-02 13:17 | XMS_ITS | Encounter Summary ---
:1935 Author Organization [facility] Address [address] [place] [address] Care Team Providers Name Role Phone Elsewhere, Pcp Primary Care Provider Unavailable Reason for Visit Outpatient (Routine) - Closed Specialty Diagnoses / Procedures Referred By Contact Refer red To Contact Diagnoses Benign Prostatic Hyperplasia Hypertrophy With Obstruction Flakita Bradshaw M.D. Procedures URO Urodynamic study (with flow) [address] [place] [phone] Referral ID Status Reason Start Date Expiration Date Visits Requ ested Visits Authorized [id number] Closed 03/21/2022 03/21/2023 1 1 Encounter Details Date Type Department Care Team Description 03/22/2022 Procedure visit Department of Flakita Bradshaw M.D. [address] [place] [address] Benign Prostatic Urology in Bassam Klein M.D. [address] [place] [address] Hyperplasia [place], [place] Kush Dumont [address] [place] [phone] Hypertrophy With [address] [facility] [place] [phone] Social History Tobacco Use Types Packs/Day Years [...] you attend jain or Patient refused 2021 judaism services? Do you belong to any clubs or No 05/17/2022 organizations such as jain groups, unions, fraParamit Corporation or athletic groups, or school groups? 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 Flow study prior to procedure: No Amount of urine drained from bladder prior to study: 12 mls Catheter: 6 Irish Position: Sitting Fill rate: 25 ml/min EMG [...] Urology Albert Waller M.D. [address] [place] [address] (Wo rk) documented as of this [...] Obstruction documented in this encounter Care Teams Pulp Roller Relationship Specialty Start Date End Date Elsewhere, Pcp PCP - General Internal Medicine 01/14/22 documented as of this encounter
--- OUTSIDE RECORDS SUMMARY | 2022-09-02 13:17 | XMS_ITS | Encounter Summary ---
:1935 Author Organization [facility] Address [address] [place] [address] Care Team Providers Name Role Phone Elsewhere, Pcp Primary Care Provider Unavailable Encounter Details Date Type Department Care Team Description 03/25/2022 Orders Only Department of Urology Kimberly Sethi Rete ntion Urinary in [facility] lonny Chamorro, Ph.D. Chronic (Primary Dx) [address] [place] [phone] Social History Tobacco Use Types Packs/Day Years [...] you attend episcopalian or Patient refused 2021 mormon services? 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
--- OUTSIDE RECORDS SUMMARY | 2022-09-02 13:17 | XMS_ITS | Encounter Summary ---
:1935 Author Organization [facility] Address [address] [place] [address] Care Team Providers Name Role Phone Elsewhere, Pcp Primary Care Provider Unavailable Encounter Details Date Type Department Care Team Description 03/27/2022 Clinical Communication Department of Urology Lisbeth Nguyen in [facility] [phone] [address] [facility] (Work) [place] [address] Social History Tobacco Use Types Packs/Day Years [...] attend latter day or Patient refused 2021 druze services? 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 [address] [place] [address] (Wo rk) documented as of this encounter Visit Diagnoses Not on filedocumented in this encounter Care Teams Pool Table Mechanic Relationship Specialty Start Date End Date Elsewhere, Pcp PCP - General Internal Medicine 01/14/22 documented as of this encounter
--- OUTSIDE RECORDS SUMMARY | 2022-09-02 13:18 | XMS_ITS | Encounter Summary ---
:1935 Author Organization [facility] Address [address] [place] [address] Care Team Providers Name Role Phone Elsewhere, Pcp Primary Care Provider Unavailable Reason for Referral Outpatient (Routine) - Closed Specialty Diagnoses / Procedures Referred By Contact Refer red To Contact Urology Diagnoses Retention Urinary Nura David IV [place] Trupti Chamorro [address] [place] [phone] Referral ID Status Reason Start Date Expiration Date Visits Requ ested Visits Authorized [id number] Closed 02/27/2022 02/27/2023 1 1 Scheduling Instructions PLEASE SCHEDULE WITH JACQUELINE OR PROVIDER WHO CAN DO REZUM CONSULTATION Reason for Visit Reason Comments Post-op Outpatient (Routine) - Closed Specialty Diagnoses / Procedures Referred By Contact Refer red To Contact Urology Cori Reece M.D . [address] [phone] Referral ID Status Reason Start Date Expiration Date Visits Requ ested Visits Authorized [id number] Closed 02/22/2022 02/22/2023 1 1 Encounter Details Date Type Department Care Team Description 02/27/2022 Office Visit Department of Urology Lamont Lakhani Urinary in [place] M[place] (Primary Dx) [address] [phone] Social History Tobacco Use Types Packs/Day Years [...] you attend spiritism or Patient refused 2021 mosque services? 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 - 02/27/2022 3:00 PM CDT Urology [facility] clinic note Subjective Mr. Chery is an [...] void bladder scan 579 cc. An 18 Anguillan coude catheter was replaced. On my visit with the patient, he is accompanied by his and [id number]. He reports overall doing fine. The primary question is what to regarding bladder drainage. Also had a question about some seemingly purulent drainage noted on catheter removal. He denies nausea, vomiting, fevers, chills. Objective On exam, patient is awake, alert, oriented, not in distress. There is an 18 Anguillan Villarreal catheter draining clear thin fruit punch [...] M.D. [address] [place] [address] (Wo rk) Scheduled Referrals Name Type Priority Associated Diagnoses Order [facility] - General - Outpatient Referral Routine Retention Urin anita Expected: urinary retention 02/27/2022 consult (clinic) (Approximat e), Expires: 05/30/2023 documented as of this encounter Visit Diagnoses Diagnosis Retention Urinary - Primary documented in this encounter Care Teams Mint Wafer Depositor Relationship Specialty Start Date End Date Elsewhere, Pcp PCP - General Internal Medicine 01/14/22 documented as of this encounter
--- OUTSIDE RECORDS SUMMARY | 2022-09-02 13:18 | XMS_ITS | Encounter Summary ---
:1935 Author Organization [facility] Address [address] [place] [address] Care Team Providers Name Role Phone Elsewhere, Pcp Primary Care Provider Unavailable Reason for Visit Reason Comments Urinary Retention UCO/VT Outpatient (Routine) - Closed Specialty Diagnoses / Procedures Referred By Contact Refer red To Contact Diagnoses Retention Urinary Cori Reece M.D. [facility] Procedures URO Urethral cath removal & voiding trial (UCO/VT) [address] [place] [phone] Referral ID Status Reason Start Date Expiration Date Visits Requ ested Visits Authorized [id number] Closed 02/22/2022 02/22/2023 1 1 Encounter Details Date Type Department Care Team Description 02/27/2022 Procedure visit Department of Urology Bao Reece M.D. [address] [place] [phone] Retention Urinary in [facility] Manasa Justice, RJluisNJluis [address] [place] [phone] [place] [phone] Social History Tobacco Use Types Packs/Day Years [...] you attend restorationism or Patient refused 2021 anglican services? Do you belong to any clubs or No 05/17/2022 organizations such as restorationism groups, unions, fraVocab or athletic groups, or school groups? 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 [address] [place] [address] (Wo rk) documented as of this [...] (ABNORMAL) Dipstick, Urine (02/27/2022 11:20 AM CDT) [facility] Method Time Signature Hemoglobin, Large (A) Negative [...] Organization Address City/State/ZIP Code Phon e Number [facility] - [address] [place], [place] [address] [place] [address] [facility] [address] pH, Urine (02/27/2022 11:20 AM CDT) P athologist Signature pH, U 5.7 4.5 - 8.0 02/27/2022 12:07 DTL PM CDT Specimen Anatomical Collection Method Collection Time Receive d Time (Source) Location / / Volume Laterality Urine 02/27/2022 11:20 02/27/2022 AM CDT 11:29 AM CDT Conor Lakhani M.D. LAB URINE ORDERABLES Performing Organization Address City/State/ZIP Code Phon e Number [facility] - [address] [place], [place] [address] [place] [address] [facility] [address] Osmolality, Urine (02/27/2022 11:20 AM CDT) P athologist Signature Osmolality, U 288 150 - [address] 02/27/2022 DTL mOsm/kg 12:07 PM CDT Specimen Anatomical Collection Method Collection Time Receive d Time (Source) Location / / Volume Laterality Urine 02/27/2022 11:20 02/27/2022 AM CDT 11:29 AM CDT Conor Lakhani M.D. LAB URINE ORDERABLES Performing Organization Address City/State/ZIP Code Phon e Number [facility] - [address] [place], [place] [address] [facility] [address] [facility] [address] (ABNORMAL) Microscopic Automated (02/27/2022 11:20 AM CDT) [facility] Method Time Signature Microscopy Abnormal 02/27/2022 DTL [...] M.D. LAB URINE ORDERABLES Performing Organization Address [facility] Phon e Number [facility] - [address] [place] [address] [facility] [address] [facility] Bacterial Culture, Aerobic + Susc, Urine (02/27/2022 11:20 AM CDT) [facility] Method Time Signature Urine Culture No growth 02/28/2022 DT after 1 day 8:02 AM CDT of incubation. Specimen (Source) Anatomical Collection Method Collection Time Re ceived Time Location / / Volume Laterality Urine (Urine, 02/27/2022 11:20 02/27/2022 Indwelling AM CDT 12:10 PM CDT Catheter) Comment: Specimen Source Site: Urine Conor Lakhani M.D. LAB MICROBIOLOGY - GENERAL O RDERABLES Performing Organization Address City/[facility] Phon e Number [facility] - [address] [place] [address] [place] [address]-[place] [address] Urinalysis with Microscopic: Urine, Catheter (02/27/2022 11:20 AM CDT) [facility] Method Time Signature Source Urine, Urine, 02/27/2022 [...] Organization Address City/State/ZIP Code Phon e Number [facility] - [address] [place], [place] [address] [facility] [address] [facility] [address] documented in this encounter Visit Diagnoses Diagnosis Retention Urinary documented in this encounter Care Teams Slubber Machine Operator Relationship Specialty Start Date End Date Elsewhere, Pcp PCP - General Internal Medicine 01/14/22 documented as of this encounter
--- OUTSIDE RECORDS SUMMARY | 2022-09-02 13:18 | XMS_ITS | Encounter Summary ---
:1935 Author Organization [facility] Address [address] [place] [address] Care Team Providers Name Role Phone Elsewhere, Pcp Primary Care Provider Unavailable Reason for Visit Reason Comments Rx Prior Authorization PA DENIED TROSPIUM CHLORIDE 20 MG TAB Encounter Details Date Type Department Care Team Description 03/05/2022 Clinical Communication Pharmacy Prior Vladimir George Rx Prior RO [phone] Authorization (MARTY DENIED TROSPIUM CHLORIDE 20 MG [...] you attend worship or Patient refused 2021 protestant services? 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 [address] [place] [phone] (Wo rk) documented as of this encounter Visit Diagnoses Not on filedocumented in this encounter Care Teams Weight Loss Sales Consultant Relationship Specialty Start Date End Date Elsewhere, Pcp PCP - General Internal Medicine 01/14/22 documented as of this encounter
--- OUTSIDE RECORDS SUMMARY | 2022-09-02 13:18 | XMS_ITS | Encounter Summary ---
:1935 Author Organization [facility] Address [address] [place] [address] Care Team Providers Name Role Phone Elsewhere, Pcp Primary Care Provider Unavailable Reason for Referral Outpatient (Routine) - Closed Specialty Diagnoses / Procedures Referred By Contact Refer red To Contact Radiation Oncology Diagnoses Malignant Neoplasm Of Bladder (HCC) Cori Reece M.D. [address] [address] Referral ID Status Reason Start Date Expiration Date Visits Requ ested Visits Authorized [id number] Closed 02/26/2022 02/26/2023 1 1 Reason for Visit Outpatient (Routine) - Closed Specialty Diagnoses / Procedures Referred By Contact Refer red To Contact Radiation Oncology Diagnoses Malignant Neoplasm Of Bladder (HCC) Cori Reece M.D. [address] [address] Referral ID Status Reason Start Date Expiration Date Visits Requ ested Visits Authorized [id number] Closed 02/26/2022 02/26/2023 1 1 Encounter Details Date Type Department Care Team Description 03/06/2022 Hospital Encounter Department of Manny Anderson Radiation Oncology [place] Dubois Of Bladder (HCC) in [address] (Primary Dx) [place], [place] [address] [facility] [address] [place], [place] [phone] [address] (Work) [phone] Social History Tobacco Use Types Packs/Day Years [...] you attend confucianism or Patient refused 2021 presybeterian services? Do you belong to any clubs or No 05/17/2022 organizations such as confucianism groups, unions, fraFlipora or athletic groups, or school groups? 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 Manny Anderson Referring Provider: Cori Reece M.D. Primary Care Provider: Dr. Yamila English Home address: [address] [place] [phone] SUBJECTIVE History of present illness Mr. Henok [...] 01/24/2022 Other The patient presented to the [facility] ED with a chief complaint [...] was performed by Dr. Kurtis Bach at [facility] and demonstrated a large medial lobe of the prostate, 3 cm, with papillary bladder mass, 5 cm, the left bladder wall obstructing the left UO. The patient reported a history of gross hematuria for months and difficulty emptying his bladder. Discussed that the patient ideally would need TURBT and bilateral retrogrades. Patient will need to see his strategy analyst for surgical clearance, he is a poor candidate for surgery. 02/08/2022 Other Urology consultation at [facility] with Dr. David Day who [...] urethral catheter and nephrostomy tube. Referral to [facility] provider. 03/12/2022 - Radiation Therapy Radiation Therapy Treatment Details (Noted on 03/05/2022) Site: Bladder Technique: No technique specified Goal: Curative Planned Treatment Start Date: 03/12/2022 In the clinic today, Mr. Henok Chery defers most questions and responses to his and cjgyjvkt-jv-gtp. He reports feeling fine but when prompted [...] as medically taking preference, but the patient's gntjwfyj-oc-hbr wished to hear from urology as to [...] or concerns. Dr. Manny Anderson is the oracle endeca consultant; please see attestation for further details. [...] bleeding and obstruction. We areasked by Dr. Recee to evaluate the patient for radiotherapy. His [...] here today with his Miesha and his jdhuojei-jn-bdu Patricia. He has a Villarreal catheter in [...] Manny Anderson M.D. 03/06/2022 11:36 PM CDT [facility] [address] [place] [address] documented in this encounter Miscellaneous Notes Addendum Note - Vicki Hector, C.N.A. - 03/06/2022 9:00 AM CDT Encounter addended by: Vicki Hector C.N.A. on: 03/07/2022 7:09 AM Actions taken: Letter saved documented in this encounter Plan of Treatment Upcoming Encounters Date Type Specialty Care Team Description 09/03/2022 Telemedicine Urology Albert Waller M.D. [address] [place] [phone] (Wo rk) Scheduled Referrals Name Type Priority Associated Order Schedule Diagnoses Radiation Oncology Outpatient Referral Routine Malignant Neopl asm Once for 1 - Palliative / Of Bladder (HCC) Occurrenc es metastatic consult starting 03/06/2022 (clinic) until 2 documented as of this encounter Visit Diagnoses Diagnosis Malignant Neoplasm Of Bladder (HCC) - Pr imary documented in this encounter Care Teams District Engineer Relationship Specialty Start Date End Date Elsewhere, Pcp PCP - General Internal Medicine 01/14/22 documented as of this encounter
--- OUTSIDE RECORDS SUMMARY | 2022-09-02 13:18 | XMS_ITS | Encounter Summary ---
:1935 Author Organization [facility] Address [address] [place] [address] Care Team Providers Name Role Phone Elsewhere, Pcp Primary Care Provider Unavailable Encounter Details Date Type Department Care Team Description 02/26/2022 Clinical Communication Department of Urology Lisbeth Nguyen in [facility] [phone] [address] [facility] (Work) [place] [address] Social History Tobacco Use Types Packs/Day Years [...] you attend mosque or Patient refused 2021 buddhist services? 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 [address] [place] [phone] (Wo rk) documented as of this encounter Visit Diagnoses Not on filedocumented in this encounter Care Teams Bleacher Lard Relationship Specialty Start Date End Date Elsewhere, Pcp PCP - General Internal Medicine 01/14/22 documented as of this encounter
--- OUTSIDE RECORDS SUMMARY | 2022-09-02 13:18 | XMS_ITS | Encounter Summary ---
:1935 Author Organization [facility] Address [address] [place] [address] Care Team Providers Name Role Phone Elsewhere, Pcp Primary Care Provider Unavailable Encounter Details Date Type Department Care Team Description 02/22/2022 Orders Only Department of Urology Chasidy Lakhani Neoplasm Of in [place], [facility] lonny Perdomo M.D. Bladder (HCC) (Primary [address] Dx) [place] [address] Social History Tobacco Use Types [...] you attend nondenominational or Patient refused 2021 confucianist services? 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 [address] [place] [phone] (Wo rk) documented as of this encounter Visit Diagnoses Diagnosis Malignant Neoplasm Of Bladder (HCC) - Pr imary documented in this encounter Care Teams Watch And Clock Repair Clerk Relationship Specialty Start Date End Date Elsewhere, Pcp PCP - General Internal Medicine 01/14/22 documented as of this encounter
--- OUTSIDE RECORDS SUMMARY | 2022-09-02 13:18 | XMS_ITS | Encounter Summary ---
:1935 Author Organization [facility] Address [address] [place] [address] Care Team Providers Name Role Phone Elsewhere, Pcp Primary Care Provider Unavailable Encounter Details Date Type Department Care Team Description 02/26/2022 Orders Only Pharmacy Prior Auth [address] [phone] Social History Tobacco Use Types Packs/Day Years [...] you attend taoism or Patient refused 2021 mormonism services? 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 [address] [place] [address] (Wo rk) documented as of this encounter Visit Diagnoses Not on filedocumented in this encounter Care Teams Certified Welder Relationship Specialty Start Date End Date Elsewhere, Pcp PCP - General Internal Medicine 01/14/22 documented as of this encounter
--- OUTSIDE RECORDS SUMMARY | 2022-09-02 13:18 | XMS_ITS | Encounter Summary ---
:1935 Author Organization [facility] Address [address] [place] [address] Care Team Providers Name Role Phone Elsewhere, Pcp Primary Care Provider Unavailable Encounter Details Date Type Department Care Team Description 03/21/2022 Hospital Encounter Department of Adrian David Urinary; Laboratory Medicine Mirlande Arias IV Neoplasm Of Bladder (HCC) and PathologyAshtyn [address] [place] [address], in [facility] [address] [place] [phone] [place] [address] (Work) [place], [place] [phone] [address] (Fax) [phone] Social History Tobacco Use Types Packs/Day Years [...] you attend jewish or Patient refused 2021 baptist services? Do [...] at Date Recorded Male 09/10/2018 8:41 AM DIE TESTER documented as of this encounter Medications [...] M.D. [address] [place], [place] [phone] (Wo rk) documented as of this encounter Procedures Procedure Name Priority Date/Time Associated Comments Diagnosis UT OSMOLALITY ASSAY Routine 03/21/2022 12:08 Resu lts [...] (ABNORMAL) Dipstick, Urine (03/21/2022 12:08 PM CDT) [facility] gist Method Time Signature Hemoglobin, Large [...] Phon e Number [facility] - [address] [place], [place] [address] [facility] [place] [address] [facility] [address] Osmolality, Urine (03/21/2022 12:08 PM CDT) athologist Signature Osmolality, U 429 150 - 1150 03/21/2022 DT mOsm/kg 12:38 PM CDT Specimen Anatomical Collection Method Collection Time Receive d Time (Source) Location / / Volume Laterality Urine 03/21/2022 12:08 03/21/2022 PM CDT 12:08 PM CDT Nura David IV, M.D. LAB URINE ORDERABLES Performing Organization Address City/[facility] Phon e Number [facility] - [address] [place] [address] pH, Random, Urine (03/21/2022 12:08 PM CDT) athologist Signature pH, Random, U 6.7 4.5 - 8.0 03/21/2022 DTL 12:38 PM CDT Specimen Anatomical Collection Method Collection Time Receive d Time (Source) Location / / Volume Laterality Urine 03/21/2022 12:08 03/21/2022 PM CDT 12:08 PM CDT Nura David IV, M.D. LAB URINE ORDERABLES Performing Organization Address City/[facility] Phon e Number [facility] - [address] (ABNORMAL) Microscopic Manual (03/21/2022 12:08 PM [...] M.D. LAB URINE ORDERABLES Performing Organization Address City/[facility]/ZIP Code Phon e Number [facility] [address] [place] [address] (ABNORMAL) Urinalysis with Microscopic: Urine, Midstream (03/21/2022 12:08 PM CDT) [facility] Method Time Signature Source Urine, Urine, [...] DTL Hr Protein 2:20 PM CDT Predicted [id number] mg/24 h 03/21/2022 DTL Range 2:20 PM CDT Specimen Anatomical Collection Method Collection Time Receive d Time (Source) Location / / Volume Laterality Urine (Urine, 03/21/2022 12:08 03/21/2022 Midstream) PM CDT 12:08 PM CDT Nura David IV, M.D. LAB URINE ORDERABLES Performing Organization Address City/[facility] Code Phon e Number [facility] [address] [place], [place] [phone] [place] [address] documented in this encounter Visit Diagnoses Diagnosis Retention Urinary Malignant Neoplasm Of Bladder (HCC) documented in this encounter Care Teams Racing Secretary And Handicapper Relationship Specialty Start Date End Date Elsewhere, Pcp PCP - General Internal Medicine 01/14/22 documented as of this encounter
--- OUTSIDE RECORDS SUMMARY | 2022-09-02 13:18 | XMS_ITS | Encounter Summary ---
:1935 Author Organization [facility] Address [address] [place] [address] Care Team Providers Name Role Phone Elsewhere, Pcp Primary Care Provider Unavailable Reason for Referral Radiation Therapy (Routine) - Closed Specialty Diagnoses / Procedures Referred By Contact Refer red To Contact Diagnoses Malignant Neoplasm Of Bladder (HCC) Manny Anderson M.D. [facility] Procedures Initial Rad Onc Treatment Planning CT Simulation Initial Rad Onc Treatment Planning CT Simulation [address] [place] [address] Referral ID Status Reason Start Date Expiration Date Visits Requ ested Visits Authorized [id number] Closed 03/05/2022 03/05/2023 1 1 Outpatient (Routine) - Authorized Specialty Diagnoses / Procedures Referred By Contact Refer red To Contact Social Work Manny Andersno M .D. [facility] [address] [place] [address] Referral ID Status Reason Start Date Expiration Date Visits V isits Requested Authorized [id number] Authorized 03/05/2022 03/05/2023 6 6 Outpatient (Routine) - Authorized Specialty Diagnoses / Procedures Referred By Contact Refer red To Contact Radiation Oncology Manny Anderson M .D. [facility] Region [address] [place] [address] Referral ID Status Reason Start Date Expiration Date Visits V isits Requested Authorized [id number] Authorized 03/05/2022 03/05/2023 10 10 Radiation Therapy (Routine) - Authorized Specialty Diagnoses / Procedures Referred By Contact Refer red To Contact Diagnoses Malignant Neoplasm Of Bladder (HCC) Manny Anderson M.D. [facility] Procedures Management Visit [address] [place], [place] [address] Referral ID Status Reason Start Date Expiration Date Visits V isits Requested Authorized [id number] Authorized 03/05/2022 03/05/2023 10 10 Radiation Therapy (Routine) - Authorized Specialty Diagnoses / Procedures Referred By Contact Refer red To Contact Diagnoses Malignant Neoplasm Of Bladder (HCC) Manny Anderson M.D. [facility] Procedures Prior Auth Rad Tx [address] [place], [place] [address] Referral ID Status Reason Start Date Expiration Date Visits V isits Requested Authorized [id number] Authorized 03/05/2022 03/05/2023 1 1 Encounter Details Date Type Department Care Team Description 03/05/2022 Orders Only Department of Manny Anderson N eoplasm Of Radiation Oncology in [place] Dub[place] Bladder (HCC) (Primary [place] [address] [facility] Dx) [address] [place] [phone] Social History Tobacco Use Types Packs/Day Years [...] you attend caodaism or Patient refused 2021 christian services? Do you belong to any clubs or No 05/17/2022 organizations such as caodaism groups, unions, [employer] Other Guys or athletic groups, or school groups? 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 [address] [place] [address] (Wo rk) Scheduled Orders Name Type [...] Organization Address City/State/ZIP Code Phon e Number [facility] na documented in this encounter Visit Diagnoses Diagnosis Malignant Neoplasm Of Bladder (HCC) - Pr imary Malignant Neoplasm Of Bladder (HCC) documented in this encounter Care Teams Manipulator Operator Relationship Specialty Start Date End Date Elsewhere, Pcp PCP - General Internal Medicine 01/14/22 documented as of this encounter
--- OUTSIDE RECORDS SUMMARY | 2022-09-02 13:18 | XMS_ITS | Encounter Summary ---
:1935 Author Organization [facility] Address [address] [place] [address] Care Team Providers Name Role Phone Elsewhere, Pcp Primary Care Provider Unavailable Encounter Details Date Type Department Care Team Description 02/25/2022 Clinical Communication Department of Urology Provider, Unknown in [place], [place] [address] [place] [address] Social History Tobacco Use Types Packs/Day Years [...] you attend mormon or Patient refused 2021 scientology services? Do [...] at Date Recorded Male 09/10/2018 8:41 AM COUNTERINTELLIGENCE AGENT documented as of this encounter Miscellaneous Notes Telephone Encounter - Cristy Heller - 02/25/2022 8:53 AM CDT Prior authorization for Trospium Rx. documented in this encounter Plan of Treatment Upcoming Encounters Date Type Specialty Care Team Description 09/03/2022 Telemedicine Urology Albert Waller M.D. [address] [place] [phone] (Wo rk) documented as of this encounter Visit Diagnoses Not on filedocumented in this encounter Care Teams Draftsperson Relationship Specialty Start Date End Date Elsewhere, Pcp PCP - General Internal Medicine 01/14/22 documented as of this encounter
--- OUTSIDE RECORDS SUMMARY | 2022-09-02 13:18 | XMS_ITS | Encounter Summary ---
:1935 Author Organization [facility] Address [address] [place] [address] Care Team Providers Name Role Phone Elsewhere, Pcp Primary Care Provider Unavailable Reason for Referral Outpatient (Routine) - Closed Specialty Diagnoses / Procedures Referred By Contact Refer red To Contact Radiation Oncology Diagnoses Malignant Neoplasm Of Bladder (HCC) Cori Reece M.D. [facility] [address] [place] [address] Referral ID Status Reason Start Date Expiration Date Visits Requ ested Visits Authorized [id number] Closed 02/26/2022 02/26/2023 1 1 Encounter Details Date Type Department Care Team Description 02/26/2022 Orders Only Department of Urology Cori Reece, Annamaria guzman Urinary (Primary Dx); in [place] Batista Malignant Neoplasm Of Bladder (HCC) [address] [place] [phone] Social History Tobacco Use Types Packs/Day Years [...] you attend episcopal or Patient refused 2021 scientologist services? Do you belong to any clubs or No 05/17/2022 organizations such as episcopal groups, unions, fraMinyanville or athletic groups, or school groups? How [...] at Date Recorded Male 09/10/2018 8:41 AM FILE CLERK documented as of this encounter Plan of Treatment Upcoming Encounters Date Type Specialty Care Team Description 09/03/2022 Telemedicine Urology Albert Waller M.D. 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
--- OUTSIDE RECORDS SUMMARY | 2022-09-02 13:18 | XMS_ITS | Encounter Summary ---
:1935 Author Organization [facility] Address [address] [place] [address] Care Team Providers Name Role Phone Elsewhere, Pcp Primary Care Provider Unavailable Encounter Details Date Type Department Care Team Description 03/21/2022 Hospital Encounter Department of Adrian David Urinary; Laboratory Medicine Mirlande Arias IV Neoplasm Of Bladder (HCC) and Pathology, [place] [facility], in [address] [place] [phone] 200 [facility] [phone] [place], [place] (Work) [phone] Social History Tobacco Use [...] you attend mandaen or Patient refused 2021 pentecostal services? Do [...] at Date Recorded Male 09/10/2018 8:41 AM RESISTOR TESTER documented as of this encounter Medications [...] Aceves M.D. [address] [place] [address] (Wo rk) documented as of this encounter Visit Diagnoses Diagnosis Retention Urinary Malignant Neoplasm Of Bladder (HCC) documented in this encounter Care Teams Gas Station Attendant Relationship Specialty Start Date End Date Elsewhere, Pcp PCP - General Internal Medicine 01/14/22 documented as of this encounter
--- OUTSIDE RECORDS SUMMARY | 2022-09-02 13:18 | XMS_ITS | Encounter Summary ---
:1935 Author Organization [facility] Address [address] [place] [address] Care Team Providers Name Role Phone Elsewhere, Pcp Primary Care Provider Unavailable Reason for Referral Outpatient (Routine) - Closed Specialty Diagnoses / Procedures Referred By Contact Refer red To Contact Radiology Diagnoses Malignant Neoplasm Of Bladder (HCC) Nura David IV [facility] Procedures IR Nephrostomy Tube Exchange Left M.D. [address] [place], [place] [address] Referral ID Status Reason Start Date Expiration Date Visits Requ ested Visits Authorized [id number] Closed 02/22/2022 02/22/2023 1 1 Encounter Details Date Type Department Care Team Description 02/22/2022 Orders Only Department of Urology Nura David Malignant Neoplasm Of in Becky Batista IV, M.D. Bladder (HCC) (Primary [place] 200 [facility] Dx) [address] [place] [phone] Social History Tobacco Use Types Packs/Day Years [...] you attend christianity or Patient refused 2021 denominational services? Do you belong to any clubs or No 05/17/2022 organizations such as christianity groups, unions, [employer] or athletic groups, or school groups? How [...] at Date Recorded Male 09/10/2018 8:41 AM SHUCKER documented as of this encounter Plan of Treatment Upcoming Encounters Date Type Specialty Care Team Description 09/03/2022 Telemedicine Urology Albert Waller M.D. [address] [place] [address] (Wo rk) documented as of this [...] 05/20/2022 5:48 PM CDT Routine exchange 10 Albanian left percutaneous nephrostomy tube. Drain to gravity [...] lidoca ine used for local anesthesia. Fluoroscopic nougat candy maker helper image demonstrates unchanged position of the l eft 10 Albanian percutaneous nephrostomy tube. Injection of contrast demonstrated a locking loop wit hin the markedly dilated left renal pelvis with high-grade narrowing at the left UPJ. Drain removed in its entirety over a guidewire and a new 10 Albanian locking loop catheter advanced with lock ing [...] lidoca ine used for local anesthesia. Fluoroscopic nougat candy maker helper image demonstrates unchanged position of the l eft 10 Albanian percutaneous nephrostomy tube. Injection of contrast demonstrated a locking loop wit hin the markedly dilated left renal pelvis with high-grade narrowing at the left UPJ. Drain removed in its entirety over a guidewire and a new 10 Albanian locking loop catheter advanced with lock ing [...] blood loss: minimal.. IMPRESSION: Routine exchange 10 Albanian left percutan eous nephrostomy tube. Drain to gravity bag drainage. Routine exchange in 10-12 week s. NR Nura David IV, M.D. IMJunie IR PROCEDURES documented in this encounter Visit Diagnoses Diagnosis Malignant Neoplasm Of Bladder (HCC) - Pr imary Malignant Neoplasm Of Bladder (HCC) documented in this encounter Care Teams Orthopaedic General Relationship Specialty Start Date End Date Elsewhere, Pcp PCP - General Internal Medicine 01/14/22 documented as of this encounter
--- OUTSIDE RECORDS SUMMARY | 2022-09-02 13:18 | XMS_ITS | Encounter Summary ---
:1935 Author Organization [facility] Address [address] [place] [address] Care Team Providers Name Role Phone Elsewhere, Pcp Primary Care Provider Unavailable Encounter Details Date Type Department Care Team Description 03/08/2022 Clinical Communication Department of Harrison Lennon, Radiation Oncology in [place], M.S. [facility] [address] [place] [address] [address] [place] [phone] Social History Tobacco Use Types Packs/Day Years [...] you attend episcopal or Patient refused 2021 zoroastrianism services? Do [...] Date Recorded Male 09/10/2018 8:41 AM WATCH PARTS GRINDER documented as of this encounter Miscellaneous Notes [...] M.D. [address] [place] [address] (Wo rk) documented as of this encounter Visit Diagnoses Not on filedocumented in this encounter Care Teams Curriculum Specialist Relationship Specialty Start Date End Date Elsewhere, Pcp PCP - General Internal Medicine 01/14/22 documented as of this encounter
--- OUTSIDE RECORDS SUMMARY | 2022-09-02 13:18 | XMS_ITS | Encounter Summary ---
:1935 Author Organization [facility] Address [address] [place] [address] Care Team Providers Name Role Phone Elsewhere, Pcp Primary Care Provider Unavailable Reason for Referral Outpatient (Routine) - Closed Specialty Diagnoses / Procedures Referred By Contact Refer red To Contact Diagnoses Benign Prostatic Hyperplasia Hypertrophy With Obstruction Flakita Bradshaw M.D. Procedures URO Urodynamic study (with flow) [address] [place] [phone] Referral ID Status Reason Start Date Expiration Date Visits Requ ested Visits Authorized [id number] Closed 03/21/2022 03/21/2023 1 1 Reason for Visit Outpatient (Routine) - Closed Specialty Diagnoses / Procedures Referred By Contact Refer red To Contact Urology Diagnoses Retention Urinary Nura David IV [facility] Ashtyn [address] [place] [address] Referral ID Status Reason Start Date Expiration Date Visits Requ ested Visits Authorized [id number] Closed 02/27/2022 02/27/2023 1 1 Encounter Details Date Type Department Care Team Description 03/21/2022 Comprehensive Visit Department of Bassam Klein gn Prostatic Hyperplasia Hypertrophy With Obstruction (Primary Dx); Urology in S, M.D. Retention Urinary [place], 200 [place], [place] 200 [facility] [address] [place], [place] [phone] (Work) [phone] Social History Tobacco Use Types Packs/Day Years [...] you attend restoration or Patient refused 2021 denominational services? Do [...] at Date Recorded Male 09/10/2018 8:41 AM MED SURG NURSE documented as of this encounter Consult Notes Bassam Klein M.D. - 03/21/2022 1:30 PM CDT I have personally reviewed the past medical history, pertinent review of systems, family history, surgical history and physical exam. I have discussed the case with my clinical team and I agree with the plan and action as outlined by my team. AT Falkita Bradshaw M.D. - 03/21/2022 1:30 PM CDT SUBJECTIVE REFERRAL SOURCE The patient is being seen in consultation at the request of Nura David IV, M.D. [address] [place] [address] CHIEF COMPLAINT Urinary retention Supervised by Dr. Klein HISTORY OF PRESENT ILLNESS Mr. Chery is a pleasant 86 y.o. male who presents today for evaluation of urinary retention. He is accompanied today by his and [id number]. For further details regarding his bladder cancer [...] urinary incontinence. He currently has a [address] He denied any significant [...] Date/Time Bacterial Culture, Aerobic + Susc, Urine [[id number]] Collected: 02/27/22 1120 Lab Status: Final result Specimen: Urine, Indwelling Catheter Updated: 02/28/22 08 Urine Culture No growth after 1 day of incubation. SARS Coronavirus 2, PCR Rapid, V [[id number]] Collected: 02/20/22 1939 Lab Status: Final result [...] at the following links: For Healthcare Providers: https://www.fda.gov/media/306307/download For Patients: https://www.Bright.md.gov/media/991001/download SARS Coronavirus 2, Source, Rapid Swab, Nasopharynx [...] per Echocardiography Contrast Administration Protocol Reference Document [id number]. Patient met an inclusion criterion and did [...] meet Mr. Chery, his , and his [id number] in clinic today for further discussion of [...] Waller M.D. [address] [place] [address] (Wo rk) documented as of this [...] Obstruction documented in this encounter Care Teams Concert Pianist Relationship Specialty Start Date End Date Elsewhere, Pcp PCP - General Internal Medicine 01/14/22 documented as of this encounter
--- OUTSIDE RECORDS SUMMARY | 2022-09-02 13:18 | XMS_ITS | Encounter Summary ---
:1935 Author Organization [facility] Address [address] [place] [address] Care Team Providers Name Role Phone Elsewhere, Pcp Primary Care Provider Unavailable Reason for Visit Reason Comments Treatment Questions Encounter Details Date Type Department Care Team Description 03/12/2022 Clinical Communication Department of [facility] in , Ashtyn Perdomo [place], [place] [address] [place] [address] Social History Tobacco Use Types Packs/Day Years [...] you attend zoroastrian or Patient refused 2021 synagogue services? Do [...] Date Recorded Male 09/10/2018 8:41 AM BRASS BUFFER documented as of this encounter Miscellaneous Notes Telephone Encounter - Ashley Duran M.D., M.B.A. - 03/12/2022 2:[address] Rosen is unfortunately completely booked as he is preparing for half-way. Another OPC provider may be available sooner [...] procedure soon. Please contact them back at [phone] to discuss the plan with them. Thanks! documented in this encounter Plan of Treatment Upcoming Encounters Date Type Specialty Care Team Description 09/03/2022 Telemedicine Urology Albert Waller M.D. [address] [place] [address] (Wo rk) documented as of this encounter Visit Diagnoses Not on filedocumented in this encounter Care Teams Axminster Rug Setter Relationship Specialty Start Date End Date Elsewhere, Pcp PCP - General Internal Medicine 01/14/22 documented as of this encounter
--- OUTSIDE RECORDS SUMMARY | 2022-09-02 13:19 | XMS_ITS | Encounter Summary ---
:1935 Author Organization [facility] Address [address] [place] [address] Care Team Providers Name Role Phone Elsewhere, Pcp Primary Care Provider Unavailable Encounter Details Date Type Department Care Team Description 02/13/2022 Clinical Communication Department of Urology David Day, in [facility] Juan., B.Ch., [place] B.A.O. [address] [facility] [address] [place] [address] [phone] Social History Tobacco Use Types Packs/Day Years [...] you attend advent or Patient refused 2021 jehovah's witness services? [...] at Date Recorded Male 09/10/2018 8:41 AM GLOBAL COMMODITY MANAGER documented as of this encounter Plan of Treatment Upcoming Encounters Date Type Specialty Care Team Description 09/03/2022 Telemedicine Urology Albert Waller M.D. [address] [place] [address] (Wo rk) documented as of this encounter Visit Diagnoses Diagnosis Hydronephrosis - Primary documented in this encounter Care Teams Causticiser Relationship Specialty Start Date End Date Elsewhere, Pcp PCP - General Internal Medicine 01/14/22 documented as of this encounter
--- OUTSIDE RECORDS SUMMARY | 2022-09-02 13:19 | XMS_ITS | Encounter Summary ---
:1935 Author Organization [facility] Address [address] [place] [address] Care Team Providers Name Role Phone Elsewhere, Pcp Primary Care Provider Unavailable Reason for Referral Outpatient (Routine) - Closed Specialty Diagnoses / Procedures Referred By Contact Refer red To Contact Radiology Diagnoses Hydronephrosis David Day M.B., [facility] Procedures IR Nephrostomy Tube Placement Left B.Ch., B.A.O. [address] [place], [place] [address] Referral ID Status Reason Start Date Expiration Date Visits Requ ested Visits Authorized [id number] Closed 02/12/2022 02/12/2023 1 1 Reason for Visit Outpatient (Routine) - Closed Specialty Diagnoses / Procedures Referred By Contact Refer red To Contact Radiology Diagnoses Hydronephrosis David Day M.B., [facility] Procedures IR Nephrostomy Tube Placement Left B.Ch., B.A.O. [address] [place], [place] [address] Referral ID Status Reason Start Date Expiration Date Visits Requ ested Visits Authorized [id number] Closed 02/12/2022 02/12/2023 1 1 Encounter Details Date Type Department Care Team Description 02/18/2022 Hospital Encounter Department of [place] Day M.B., B.Ch., B.A.O. [address] [place] [phone] Hydronephrosis Radiology in Dannielle Gonsalves M.D. [address] [place] [phone] [place], [place] Saeid Stanton M.D. 200 [place] [phone] [address] [place] [address] Social History Tobacco Use Types [...] you attend holiness or Patient refused 2021 yazidism services? Do [...] at Date Recorded Male 09/10/2018 8:41 AM INFECTION CONTROL MANAGER documented as of this encounter Last [...] As expected PRIMARY PROCEDURALIST Dr. Dannielle Gonsalves ([id number]) ASSISTANTS Dr. Stanton ([id number]) COMPLICATIONS None. DRAINS Left nephrostomy tube 10F [...] Fungal Culture, Routine (02/18/2022 10:42 AM CDT) [facility] Method Time Signature Fungal No growth [...] City/State/ZIP Code Phon e Number [facility] - [address] [place], [place] [address] [place] [address] [facility] 200 [facility] Bacterial Culture, Anaerobic + Susc (02/18/2022 10:42 AM CDT) [facility] [employer] Method Time Signature Bacterial No growth 03/04/2022 DTL Culture, after 14 11:37 AM CDT Anaerobic + days of Susc incubation. Specimen Anatomical Collection Method Collection Time Receive d Time (Source) Location / / Volume Laterality Fluid (Kidney, 02/18/2022 10:42 2 Left) AM CDT 12:34 PM CDT Comment: Specimen Source Site: Fluid David Sevilla B.Ch., B.A.O. LAB MICROBIOLOGY - GENERAL ORDERABLES Performing Organization Address City/[facility]/ZIP Code Phon e Number [facility] - [address] [place], [place] [address] [place] [address] [facility] [address] [facility] Gram Stain (02/18/2022 10:42 AM CDT) [facility] Method Time Signature Gram Stain No organisms 02/18/2022 DTL seen. 2:40 PM CDT Specimen Anatomical Collection Method Collection Time Receive d Time (Source) Location / / Volume Laterality Fluid (Kidney, 02/18/2022 10:42 2 Left) AM CDT 12:34 PM CDT Comment: Specimen Source Site: Fluid David Sevilla, CrowCh., B.A.O. LAB MICROBIOLOGY - GENERAL ORDERABLES Performing Organization Address City/[facility]/ZIP Code Phon e Number [facility] - [address] [place], [place] [address] [place], [place] [id number] [place] [address] 200 [facility] Bacterial Culture, Aerobic + Susc (02/18/2022 10:42 AM CDT) [facility] [employer] Method Time Signature Bacterial No growth 02/23/2022 [...] City/State/ZIP Code Phon e Number [facility] - [address] [place], [place] [address] [facility] [place] [place] [address] [facility] [address] documented in [...] (RAD) documented in this encounter Care Teams Computer Networker Relationship Specialty Start Date End Date Elsewhere, Pcp PCP - General Internal Medicine 01/14/22 documented as of this encounter
--- OUTSIDE RECORDS SUMMARY | 2022-09-02 13:19 | XMS_ITS | Encounter Summary ---
:1935 Author Organization [facility] Address [address] [place] [address] Care Team Providers Name Role Phone Elsewhere, Pcp Primary Care Provider Unavailable Encounter Details Date Type Department Care Team Description 02/15/2022 Clinical Communication Department of Urology David Day, in [facility] Juan., B.Ch., [place] B.A.O. 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 - 02/15/2022 2:01 PM CDT Spoke with the daughter over the phone. Patient has seen his local analyzer sales today and he clearedhim for general anesthesia. Informed the patient and his family that if he wants to have the procedure TURBT to be done here at [facility] he will still require to have clearance [...] for Friday. Desiree can be reached at [phone]. documented in this encounter Plan of Treatment Upcoming Encounters Date Type Specialty Care Team Description 09/03/2022 Telemedicine Urology Albert Waller M.D. [address] [place] [address] (Wo rk) documented as of this encounter Visit Diagnoses Diagnosis Hematuria - Primary documented in this encounter Additional Health Concerns Infection Onset Date Last Indicated Resolved Time COVID19 Pending 02/15/2022 02/15/2022 02/15/2022 10:28 PM CDT COVID19 Pending 02/20/2022 02/20/2022 02/20/2022 8:04 PM CDT documented as of this encounter Care Teams Vp & General Counsel Relationship Specialty Start Date End Date Elsewhere, Pcp PCP - General Internal Medicine 01/14/22 documented as of this encounter
--- OUTSIDE RECORDS SUMMARY | 2022-09-02 13:19 | XMS_ITS | Encounter Summary ---
:1935 Author Organization [facility] Address [address] [place] [address] Care Team Providers Name Role Phone Elsewhere, Pcp Primary Care Provider Unavailable Encounter Details Date Type Department Care Team Description 01/30/2022 Clinical Communication Department of Urology David Day, in [facility] Juan., B.Ch., [place] B.A.O. [address] [facility] [address] [place] [phone] [phone] Social History Tobacco Use Types Packs/Day Years [...] you attend mu-ism or Patient refused 2021 restorationist services? 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 [address] [place] [address] (Wo rk) documented as of this [...] Organization Address City/State/ZIP Code Phon e Number [address] [address] [facility] [place] [address] (ABNORMAL) Basic Metabolic Panel (02/07/2022 9:26 [...] CDT eGFR-Black/Afri 72 >=60 02/07/2022 NPRG can Icelandic mL/min/BSA 11:13 AM CDT Comment: ----ADDITIONAL INFORMATION---- [...] Organization Address City/State/ZIP Code Phon e Number [facility]- [address] [place], [place] [address] [place] [address] [place] [address] [facility] [address] Albumin [...] Organization Address City/State/ZIP Code Phon e Number [facility]- [address] [place], [place] [address] [facility] [place] [address] (ABNORMAL) CBC with Differential, Blood (02/07/2022 9:26 AM CDT) [facility] Method Time Signature Hemoglobin 9.6 (L) 13.2 [...] Organization Address City/State/ZIP Code Phon e Number [facility]- [address] [place] [address] [place] [address] System in [place] 10[address] [facility] documented in this encounter Visit Diagnoses Diagnosis Mass Bladder - Primary documented in this encounter Care Teams Manager Regional Relationship Specialty Start Date End Date Elsewhere, Pcp PCP - General Internal Medicine 01/14/22 documented as of this encounter
--- OUTSIDE RECORDS SUMMARY | 2022-09-02 13:19 | XMS_ITS | Encounter Summary ---
:1935 Author Organization [facility] Address [address] [place] [address] Care Team Providers Name Role Phone Elsewhere, Pcp Primary Care Provider Unavailable Reason for Visit Reason Comments Triage Encounter Details Date Type Department Care Team Description 02/15/2022 Clinical Communication Department of Gang Supervisor, [facility] Cardiovascular Medicine Ashtyn Kumar in [facility] rotary shear operator [address] [place] [address] Social History Tobacco Use Types Packs/Day [...] you attend religious or Patient refused 2021 latter-day services? 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 Internal/external: URO surg, [place], [id number] ?? Goal or summary: Schedule in CV ?? Requested date: February ?? Additional comments: Please Review documented in this encounter Plan of Treatment Upcoming Encounters Date Type Specialty Care Team Description 09/03/2022 Telemedicine Urology Albert Waller M.D. [address] [place] [address] (Wo rk) documented as of this encounter Visit Diagnoses Not on filedocumented in this encounter Additional Health Concerns Infection Onset Date Last Indicated Resolved Time COVID19 Pending 02/15/2022 02/15/2022 02/15/2022 10:28 PM CDT COVID19 Pending 02/20/2022 02/20/2022 02/20/2022 8:04 PM CDT documented as of this encounter Care Teams Asset Availability Leader Relationship Specialty Start Date End Date Elsewhere, Pcp PCP - General Internal Medicine 01/14/22 documented as of this encounter
--- OUTSIDE RECORDS SUMMARY | 2022-09-02 13:19 | XMS_ITS | Encounter Summary ---
:1935 Author Organization [facility] Address [address] [place] [address] Care Team Providers Name Role Phone Elsewhere, Pcp Primary Care Provider Unavailable Encounter Details Date Type Department Care Team Description 02/08/2022 Ancillary Procedure Department of David Day Neoplasm Radiology in M, Juan., B.Ch., Of Bladder ( HCC) [place], [place] B.A.O. [address] [facility] [address] [place] [phone] Social History Tobacco Use Types Packs/Day Years [...] you attend orthodox or Patient refused 2021 temple services? 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 [address] [place] [address] (Wo rk) documented as of this [...] (HCC) documented in this encounter Care Teams Box Storage Worker Relationship Specialty Start Date End Date Elsewhere, Pcp PCP - General Internal Medicine 01/14/22 documented as of this encounter
--- OUTSIDE RECORDS SUMMARY | 2022-09-02 13:19 | XMS_ITS | Encounter Summary ---
:1935 Author Organization [facility] Address [address] [place] [address] Care Team Providers Name Role Phone Elsewhere, Pcp Primary Care Provider Unavailable Encounter Details Date Type Department Care Team Description 02/07/2022 Hospital Encounter Department of Laboratory Calin Day, Mass Bladder Medicine in [place], Juan., B.Ch., [place] B.A.O. [address] [place] [address] [phone] Social History Tobacco Use Types Packs/Day Years [...] you attend mandaen or Patient refused 2021 bahai services? 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 [address] [place], [place] [phone] (Wo rk) documented as of this [...] (02/07/2022 9:26 AM CDT) Analysis Performed At [facility] Time Signature Urine Culture Mixed 02/08/2022 [facility] jonatan. (A) 11:51 AM CDT Specimen Anatomical Collection Method Collection Time Receive d Time (Source) Location / / Volume Laterality Urine (Urine, 02/07/2022 9:26 AM 02/08/20 3:07 Midstream) CDT PM CDT Comment: Specimen Source Site: Urine David Sevilla, B.Ch., B.A.O. LAB MICROBIOLOGY - GENERAL ORDERABLES Performing Organization Address City/State/ZIP Code Phon e Number [facility]- [address] [place] [address] [place] [address] (ABNORMAL) Urinalysis with Microscopic: Urine, Midstream (02/07/2022 9:26 AM CDT) Analysis Performed At [facility] Signature Source Urine, Urine, 02/07/2022 NPCL Midstream [...] 8.0 02/07/2022 10:56 AM CDT NPCL Specific [place] 1.020 1.001 - 1.035 02/07/2022 10:56 AM [...] Organization Address City/State/ZIP Code Phon e Number [facility]- [address] [place], [place] [address] [place] [address] [facility] [address] [place] [address] documented in this encounter Visit Diagnoses Diagnosis Mass Bladder documented in this encounter Care Teams Medical Hospital Sales Relationship Specialty Start Date End Date Elsewhere, Pcp PCP - General Internal Medicine 01/14/22 documented as of this encounter
--- OUTSIDE RECORDS SUMMARY | 2022-09-02 13:19 | XMS_ITS | Encounter Summary ---
:1935 Author Organization [facility] Address [address] [place] [address] Care Team Providers Name Role Phone Elsewhere, Pcp Primary Care Provider Unavailable Encounter Details Date Type Department Care Team Description 02/07/2022 Hospital Encounter Department of Laboratory Calin Day, Mass Bladder Medicine in [place], Juan., B.Ch., [place] B.A.O. [address] [place] [phone] [phone] Social History Tobacco Use Types Packs/Day Years [...] you attend caodaism or Patient refused 2021 orthodoxy services? 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 [address] [place], [place] [phone] (Wo rk) documented as of this [...] Organization Address City/State/ZIP Code Phon e Number [facility]- [facility] [address] [place], [place] [address] [facility] [place] [address] [facility] [address] [place] (ABNORMAL) Basic Metabolic Panel (02/07/2022 9:26 AM [...] CDT eGFR-Black/Afri 72 >=60 02/07/2022 NPRG can Zimbabwean mL/min/BSA 11:13 AM CDT Comment: ----ADDITIONAL INFORMATION---- [...] B.A.O. LAB BLOOD ADD-ON Performing Organization Address City/[facility] Phon e Number [address] LAB NPRG [address] Albumin (02/07/2022 9:26 AM CDT) P athologist Signature Albumin, P 3.9 3.5 - 5.0 02/07/2022 NPRG g/dL 11:13 AM CDT Specimen Anatomical Collection Method Collection Time Receive d Time (Source) Location / / Volume Laterality Blood (Blood, 02/07/2022 9:26 AM 02/08/20 Venous) CDT 10:21 AM CDT David Sevilla, CrowCh., B.A.O. LAB BLOOD ADD-ON Performing Organization Address City/[facility] Phon e Number [place] [address] [place] [facility] [address] (ABNORMAL) CBC with Differential, Blood (02/07/2022 9:26 AM CDT) [facility] gist Method Time Signature Hemoglobin 9.6 (L) [...] Organization Address City/State/ZIP Code Phon e Number [facility]- [address] [place] [address] [place] [address] System in [place] [address] [facility] documented in this encounter Visit Diagnoses Diagnosis Mass Bladder documented in this encounter Care Teams Television News Photographer Relationship Specialty Start Date End Date Elsewhere, Pcp PCP - General Internal Medicine 01/14/22 documented as of this encounter
--- OUTSIDE RECORDS SUMMARY | 2022-09-02 13:19 | XMS_ITS | Encounter Summary ---
:1935 Author Organization [facility] Address [address] [place] [address] Care Team Providers Name Role Phone Elsewhere, Pcp Primary Care Provider Unavailable Encounter Details Date Type Department Care Team Description 02/15/2022 Hospital Encounter Department of David Day Hydron ephrosis; Laboratory Medicine in [place] Hered[place], B.Ch., Ma Bladder [place], [facility] a B.A.O. [address] [place] [address] [address] [place] [address] [phone] Social History Tobacco Use Types Packs/Day Years [...] you attend judaism or Patient refused 2021 muslim services? 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 [address] [place] [address] (Wo rk) documented as of this [...] pe rformed using the Aptima SARS-CoV-2 assay ([employer] on the [employer] tem under emergency use authorization (EUA) by the U.S. Food and Drug Administ ration. Fact sheets for this EUA assay can be fo und at the following links: For Healthcare Providers: https://www.fd a.gov/media/788248/download For Patients: https://www.fda.gov/media/ 875623/download Specimen Anatomical Collection Method Collection Time Receive d Time (Source) Location / / Volume Laterality Varies 02/15/2022 9:22 AM 3:08 (Nasopharynx) CDT PM CDT David Sevilla, B.Ch., B.A.O. LAB MICROBIOLOGY - GENERAL ORDERABLES Performing Organization Address City/State/ZIP Code Phon e Number [facility]- [address] [place] [address] [place] [address] System in [address] documented in this encounter Visit Diagnoses Diagnosis Hydronephrosis Mass Bladder documented in this encounter Additional Health Concerns Infection Onset Date Last Indicated Resolved Time COVID19 Pending 02/15/2022 02/15/2022 02/15/2022 10:28 PM CDT documented as of this encounter Care Teams Literary Agent Relationship Specialty Start Date End Date Elsewhere, Pcp PCP - General Internal Medicine 01/14/22 documented as of this encounter
--- OUTSIDE RECORDS SUMMARY | 2022-09-02 13:19 | XMS_ITS | Encounter Summary ---
:1935 Author Organization [facility] Address [address] [place] [address] Care Team Providers Name Role Phone Elsewhere, Pcp Primary Care Provider Unavailable Reason for Referral MRI/CAT/PET Scan (Routine) - Closed Specialty Diagnoses / Procedures Referred By Contact Refer red To Contact Radiology Diagnoses Mass Bladder Jeanna Aguero M.B., [facility] Procedures CT Abdomen and/or Pelvis Biopsy CT Biopsy Other B.Ch., B.A.O. [address] [place] [address] Referral ID Status Reason Start Date Expiration Date Visits Requ ested Visits Authorized [id number] Closed 02/12/2022 02/12/2023 1 1 utpatient (Routine) - Closed Specialty Diagnoses / Procedures Referred By Contact Refer red To Contact Radiology Diagnoses Hydronephrosis Jeanna Aguero M.B., [facility] Procedures IR Nephrostomy Tube Placement Left B.Ch., B.A.O. [address] [place] [address] Referral ID Status Reason Start Date Expiration Date Visits Requ ested Visits Authorized [id number] Closed 02/12/2022 02/12/2023 1 1 Encounter Details Date Type Department Care Team Description 02/12/2022 Clinical Communication Department of Urology Jeanna Aguero, in [place], [place], [place] B.A.O. [address] [facility] [address] [place] [address] [phone] Social History Tobacco Use Types Packs/Day Years [...] you attend gnosticist or Patient refused 2021 yazdanism services? 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 At this t [facility], we would recommend patient have [...] appointments to be done locally by his comfort filler this week. They are aware that if [...] if possible. Their best callback number is: [phone] Thank you! documented in this encounter Plan of Treatment Upcoming Encounters Date Type Specialty Care Team Description 09/03/2022 Telemedicine Urology Albert Waller M.D. [address] [place] [phone] (Wo rk) documented as of this [...] Left bladder m ass Procedure Note Lindsey Ordza M.D. - 02/18/2022Forma tting of this note [...] Urinary documented in this encounter Care Teams Digitizer Operator Relationship Specialty Start Date End Date Elsewhere, Pcp PCP - General Internal Medicine 01/14/22 documented as of this encounter
--- OUTSIDE RECORDS SUMMARY | 2022-09-02 13:19 | XMS_ITS | Encounter Summary ---
:[address] [facility] Address [address] [place] [address] Care Team Providers Name Role Phone Elsewhere, Pcp Primary Care Provider Unavailable Reason for Referral Outpatient (Routine) - Closed Specialty Diagnoses / Procedures Referred By Contact Refer red To Contact Urology Diagnoses Malignant Neoplasm Of Bladder (HCC) Slava Edwards M.D. [facility] [address] [place] [address] Referral ID Status Reason Start Date Expiration Date Visits Requ ested Visits Authorized [id number] Closed 01/30/2022 01/30/2023 1 1 Encounter Details Date Type Department Care Team Description 01/30/2022 Community [facility] Slava Edwards ignant Neoplasm Of AND MIRTHA Pena M.D. Bladder (HCC) [address] [place] [id number] [facility] (Primary Dx) [place] [address] [place], [place] [phone] Social History Tobacco Use Types Packs/Day Years [...] you attend jainism or Patient refused 2021 zoroastrian services? Do you belong to any clubs or No 05/17/2022 organizations such as jainism groups, unions, [employer] or athletic groups, or school groups? 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 [address] [place], [place] [phone] (Wo rk) Scheduled Referrals Name Type Priority Associated Diagnoses [facility] Referral Outpatient Referral Routine Malignant Neoplas m Of Expected: Bladder (HCC) 01/30/2022 (Approximate), Expires: 05/01/2023 documented as of this encounter Visit Diagnoses Diagnosis Malignant Neoplasm Of Bladder (HCC) - Pr imary documented in this encounter Care Teams Escort Blind Relationship Specialty Start Date End Date Elsewhere, Pcp PCP - General Internal Medicine 01/14/22 documented as of this encounter
--- OUTSIDE RECORDS SUMMARY | 2022-09-02 13:19 | XMS_ITS | Encounter Summary ---
:1935 Author Organization [facility] Address [address] [place] [address] Care Team Providers Name Role Phone Elsewhere, Pcp Primary Care Provider Unavailable Encounter Details Date Type Department Care Team Description 02/14/2022 Clinical Communication Department of Urology Lisbeth Nguyen in [facility] [phone] [address] [facility] ([place]) [place] [address] Social History Tobacco Use Types Packs/Day Years [...] you attend caodaism or Patient refused 2021 oriental orthodox services? 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 [address] [place] [phone] (Wo rk) documented as of this encounter Visit Diagnoses Not on filedocumented in this encounter Care Teams Wet Process Miller Head Assistant Relationship Specialty Start Date End Date Elsewhere, Pcp PCP - General Internal Medicine 01/14/22 documented as of this encounter
--- OUTSIDE RECORDS SUMMARY | 2022-09-02 13:19 | XMS_ITS | Encounter Summary ---
:1935 Author Organization [facility] Address [address] [place] [address] Care Team Providers Name Role Phone Elsewhere, Pcp Primary Care Provider Unavailable Reason for Referral MRI/CAT/PET Scan (Routine) - Closed Specialty Diagnoses / Procedures Referred By Contact Refer red To Contact Radiology Diagnoses Malignant Neoplasm Of Bladder (HCC) David Day M.B., [facility] Procedures CT Urogram without and with IV Contrast B.Ch., B.A.O. [address] [place] [address] Referral ID Status Reason Start Date Expiration Date Visits Requ ested Visits Authorized [id number] Closed 02/08/2022 02/08/2023 1 1 Reason for Visit Appointment Request (Routine) - Closed Specialty Diagnoses / Procedures Referred By Contact Refer red To Contact Urology Diagnoses Mass Bladder Referral ID Status Reason Start Date Expiration Date Visits Requ ested Visits Authorized [id number] Closed 01/30/2022 01/30/2023 1 1 Encounter Details Date Type Department Care Team Description 02/08/2022 Comprehensive Visit Department of David Day Neoplasm Urology in [place] Heredia, Of Bladder (HCC ) [place], [place] B.Ch., B.A.O. [address] [facility] [address] [place] [address] [phone] Social History Tobacco Use Types Packs/Day Years [...] you attend gnosticism or Patient refused 2021 jain services? Do you belong to any clubs or No 05/17/2022 organizations such as gnosticism groups, unions, [employer]as[employer] or athletic groups, or school groups? 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 On December [...] M.D. [address] [place] [phone] (Wo rk) documented as of this [...] (HCC) documented in this encounter Care Teams Fashion Styling Intern Relationship Specialty Start Date End Date Elsewhere, Pcp PCP - General Internal Medicine 01/14/22 documented as of this encounter
--- OUTSIDE RECORDS SUMMARY | 2022-09-02 13:19 | XMS_ITS | Encounter Summary ---
:1935 Author Organization [facility] Address [address] [place] [address] Care Team Providers Name Role Phone Elsewhere, Pcp Primary Care Provider Unavailable Reason for Referral MRI/CAT/PET Scan (Routine) - Closed Specialty Diagnoses / Procedures Referred By Contact Refer red To Contact Radiology Diagnoses Malignant Neoplasm Of Bladder (HCC) David Day M.B., [facility] Procedures CT Urogram without and with IV Contrast B.Ch., B.A.O. [address] [place], [place] [address] Referral ID Status Reason Start Date Expiration Date Visits Requ ested Visits Authorized [id number] Closed 02/08/2022 02/08/2023 1 1 Reason for Visit MRI/CAT/PET Scan (Routine) - Closed Specialty Diagnoses / Procedures Referred By Contact Refer red To Contact Radiology Diagnoses Malignant Neoplasm Of Bladder (HCC) David Day M.B., [facility] Procedures CT Urogram without and with IV Contrast B.Ch., B.A.O. [address] [place], [place] [address] Referral ID Status Reason Start Date Expiration Date Visits Requ ested Visits Authorized [id number] Closed 02/08/2022 02/08/2023 1 1 Encounter Details Date Type Department Care Team Description 02/11/2022 Hospital Encounter Department of David Day Malign ant Neoplasm Radiology, Juan Bridges., B.Ch., Of [facility] in B.A.O. [place], [place] [address] [place] [address] [phone] Social History Tobacco Use Types Packs/Day Years [...] you attend yarsanism or Patient refused 2021 buddhism services? Do [...] Date Recorded Male 09/10/2018 8:41 AM CHIEF OF INTERNAL MEDICINE documented as of this encounter Medications at [...] M.D. [address] [place], [place] [phone] (Wo rk) documented as of this [...] Orders documented in this encounter Care Teams Assembly Manager Relationship Specialty Start Date End Date Elsewhere, Pcp PCP - General Internal Medicine 01/14/22 documented as of this encounter
--- OUTSIDE RECORDS SUMMARY | 2022-09-02 13:19 | XMS_ITS | Encounter Summary ---
:1935 Author Organization [facility] Address [address] [place] [address] Care Team Providers Name Role Phone Elsewhere, Pcp Primary Care Provider Unavailable Encounter Details Date Type Department Care Team Description 02/13/2022 Clinical Communication Department of Urology David Aguero, in [facility] Juan., B.Ch., [place] B.A.O. [address] [facility] [address] [place] [address] [phone] Social History Tobacco Use Types Packs/Day Years [...] you attend yarsanism or Patient refused 2021 mormonism services? 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 [address] [place] [phone] (Wo rk) documented as of this encounter Results SARS Coronavirus-2 RNA, V Asymptomatic (02/15/2022 9:22 AM CDT) [facility] Method Time Signature SARS-CoV-2 Swab, 02/15/2022 MKTO [...] pe rformed using the Aptima SARS-CoV-2 assay ([employer] on the [employer] tem under emergency use authorization (EUA) by the U.S. Food and Drug Administ ration. Fact sheets for this EUA assay can be fo und at the following links: For Healthcare Providers: https://www.MyUS.com a.gov/media/311852/download For Patients: https://www.fda.gov/media/ 272631/download Specimen Anatomical Collection Method Collection Time Receive d Time (Source) Location / / Volume Laterality Varies 02/15/2022 9:22 AM 3:08 (Nasopharynx) CDT PM CDT David Sevilla, B.Tj., B.A.O. LAB MICROBIOLOGY - GENERAL ORDERABLES Performing Organization Address City/State/ZIP Code Phon e Number [facility]- [address] [place] [address] [place] [address] System [address] documented in this encounter Visit Diagnoses Diagnosis Hydronephrosis - Primary Mass Bladder documented in this encounter Care Teams Sleeper Cutter Relationship Specialty Start Date End Date Elsewhere, Pcp PCP - General Internal Medicine 01/14/22 documented as of this encounter
--- OUTSIDE RECORDS SUMMARY | 2022-09-02 13:19 | XMS_ITS | Encounter Summary ---
:1935 Author Organization [facility] Address [address] [place] [address] Care Team Providers Name Role Phone Elsewhere, Pcp Primary Care Provider Unavailable Reason for Referral Medication Prior Authorization - Denied Specialty Diagnoses / Procedures Referred By Contact Refer red To Contact Nura David IV, M.D. [address] [place] [address] Referral ID Status Reason Start Date Expiration Date Visits Requ ested Visits Authorized [id number] Denied 1 1 Outpatient (Routine) - Closed Specialty Diagnoses / Procedures Referred By Contact Refer red To Contact Diagnoses Retention Urinary Cori Reece M.D. [facility] Procedures URO Urethral cath removal & voiding trial (UCO/VT) [address] [place] [phone] Referral ID Status Reason Start Date Expiration Date Visits Requ ested Visits Authorized [id number] Closed 02/22/2022 02/22/2023 1 1 utpatient (Routine) - Closed Specialty Diagnoses / Procedures Referred By Contact Refer red To Contact Urology Cori Reece M.D . [facility] [address] [place] [address] Referral ID Status Reason Start Date Expiration Date Visits Requ ested Visits Authorized [id number] Closed 02/22/2022 02/22/2023 1 1 Scheduling Instructions [facility] Reason for Visit MRI/CAT/PET Scan (Routine) - Closed Specialty Diagnoses / Procedures Referred By Contact Refer red To Contact Radiology Diagnoses Mass Bladder David Day M.B., [facility] Procedures CT Abdomen and/or Pelvis Biopsy CT Biopsy Other B.Ch., B.A.O. [address] [place] [phone] Referral ID Status Reason Start Date Expiration Date Visits Requ ested Visits Authorized [id number] Closed 02/12/2022 02/12/2023 1 1 Encounter Details Date Type Department Care Team Description 02/18/2022 - Hospital Encounter [facility] [place] Day M.B., B.Ch., B.A.O. 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 [address] [place] [phone] Mass Bladder; [facility], Sixth Floor [address] [place] [phone] Social History Tobacco Use Types Packs/Day Years [...] you attend worship or Patient refused 2021 yazdanism services? Do [...] Date Recorded Male 09/10/2018 8:41 AM [employer] documented as of this encounter Last [...] PM CDT DISCHARGE SUMMARY BRIEF OVERVIEW Hospital: [facility] Discharge Provider: Kevin Villarreal M.D. Primary Team: [...] hospital problems. * DISCHARGE DISPOSITION [place] [facility] [place]] ACTIVE ISSUES REQUIRING FOLLOW UP - [facility] outpatient clinic visit on Tuesday 02/27 [...] related to the procedure, please contact the [facility] decorating machine operator ([phone]) and ask to be connected to the non-vascular interventional radiology fellow network relations consultant AttachmentsThe following attachments cannot be sent through Care Everywhere. Sulfamethoxazole (By mouth) (Bulgarian)Trospium (By mouth) (Bulgarian)documented in this encounter Medications at Time of [...] for TURBT Please page Chief Urology at [phone] from 7 AM - 5 PM or at [phone] after hours with any questions/concerns. Cori Reece M.D. documented in this encounter Consult Notes Braden Gan M.D. - 02/21/2022 4:57 PM CDTAssociated Order(s): IP CONSULT TO CARDIOLOGY CARDIOLOGY CONSULT NOTE DEMOGRAPHIC INFORMATION Patient Name: Henok Chery Birthdate: 1935 Age: 86 y.o. Sex: male Address: [address] [place] [phone] CHIEF COMPLAINT/PURPOSE OF VISIT - Pre-operative evaluation [...] staffed with Dr. Louis. Please page the [facility] consult service in case of questions or concerns. Braden Gan M.D. 02/21/22 Damaris Gooden RJluisN. - 02/21/2022 1:03 PM CDT Discharge Planning Assessment SUBJECTIVE Assessment Information Referral Source: belt tender Referral Reason: Discharge Planning Primary Language: Bulgarian Surgical Consultant Services Used: No Person(s) present during interview: Person(s) Present During Interview: patient and Spouse - Yvette Milton- Ralph History of Present Illness #1 Malignant Neoplasm Of Bladder (HCC) Social History Marital Status: Finance/Insurance Primary insurance: MEDICARE A AND B Secondary insurance: [employer] Does the patient have any financial concerns? no benefits: No Advance Directives Advance Directives: N/A Advance Directives Status: N/A OBJECTIVE Baseline Functional Status Baseline Activities of Daily Living Dressing: Independent Feeding: Independent Bathing: Needs assistance Grooming: Independent Toileting: Independent Behavior: Appropriate Communication: Talks, Understands speaking, Understands Bulgarian Shopping: Needs assistance Transportation: Support from family Medication Management: Needs assistance Housekeeping: Needs assistance Meal Prep: Needs assistance Managing Finances: Needs assistance Assistive Devices: Walker - four wheeled, Scooter Services/Resources: Home health Agency Name: [facility] Provided: alf, PT Baseline Services/Resources Primary care clinic and provider: ELSEWHERE, PCP Services/Resources: Home health Additional Resources: NA Anticipated Needs Functional Status: None Assistive Devices: Walker - four wheeled, Oxygen, Scooter, Tub/shower chair/bench Services/Resources: Home health Agency Name: [facility] Provided: alf, PT Transportation Needs: Support from family Does the patient need discharge transport arranged?: No Anticipated Discharge Destination: [place] [facility] [place] / PLAN Plan Assessment: The belt tender met with Henok Chery to discuss his current hospitalization and home going needs. The patient was accompanied by , Miesha. The patient's was a reliable historian. The role of belt tender was reviewed. The patient's reviewed his prior level of care and support system. The patient receives support from his and children. The patient's described his living environment as a home with bedroom and bathroom on same floor with level entry. Housekeeping, grocery shopping, meal prep, and other household responsibilities have previously been completed by patient's . belt tender discussed the patient's potential needs at dismissal [...] live together in a one-story home in [place], [place]. Patient'swife states patient utilizes a walker [...] Homecare and home oxygen is provided by [employer]. The patient's reports understanding that he will [...] dismissal will be provided by family--. 3. belt tender recommended reaching out to family, friends, and neighbors for assistance. 4. belt tender provided information regarding the dismissal process. 5. belt tender placed or requested the following hospital-based consult orders and/or referrals:None. 6. belt tender will continue to assess for homegoing needs with the interdisciplinary team. 7. belt tender encouraged the patient to reach out with any questions/concerns. Patient to discharge with home health care. Home Medical Care - Admitted Since 02/18/2022 Service Provider Selected Services Address Phone Fax Patient Preferred [facility] [address] [facility] [phone] -- Contact: Intake NURSING: - Complete documentation in the Discharge Navigator including Nursing Report Info and Facility/NextLevel of Care Info - Call report and arrange for the patient???s first visit. - Send required packet of dismissal information with patient, including After Visit Summary and advance directive. PRIMARY SERVICE: - Please provide a non-[place] home health order for resumption of previous [...] Selected Services Address Phone Fax [facility] [address] [phone] -- Contact: Intake Respiratory [...] RN, ENAN, MAGDALENAS, CCS, CRC Clinical Documentation Media Monitor Query created by: LAURA Iniguez, RN, CPN, [...] medicine question arises through his hospital course [phone]. Judy Schumacher MD MS Internal Medicine, PGY3 General Internal Medicine Consults [phone] Hospital Course - Nura David IV, M.D. [...] M.D. [address] [place] [phone] (Wo rk) Pending Results Name Type [...] Address City/State/ZIP Code Phon e Number POC [facility] [address] [place] [address] [place] [address] [place] [facility] [address] (ABNORMAL) Glucose, POCT [...] Provider LAB POCT ORDERABLES-MANUAL Performing Organization Address City/[facility] Phon e Number POC [facility] [address] [place] [address] [place] [address] [place] [facility] [address] [facility] Glucose, POCT (02/22/2022 7:17 AM CDT) [...] Provider LAB POCT ORDERABLES-MANUAL Performing Organization Address City/[facility]/ZIP Code Phon e Number POC [facility] [address] [place] [address] [place] [address] [facility] 200 [facility] (ABNORMAL) CBC without Differential (02/22/2022 3:59 [...] City/State/ZIP Code Phon e Number [facility] - [address] [place] [address] [address] [place] [place] [address] Laboratories-[address] (ABNORMAL) Basic Metabolic Panel (02/22/2022 3:59 [...] 02/22/2022 DTL Black/ mL/min/BSA 5:02 AM CDT Maldivian Comment: ----ADDITIONAL INFORMATION---- Estimated GFR calculated using [...] City/State/ZIP Code Phon e Number [facility] - [address] [place], [place] [address] [place] [address] Laboratories-[facility] [address] [...] Provider LAB POCT ORDERABLES-MANUAL Performing Organization Address [facility]/ZIP [facility] Phon e Number [facility] [address] [place] [address] [place], [place] [phone] [place] [address] 200 [facility] (ABNORMAL) Hemoglobin (02/21/2022 6:21 PM CDT) P athologist Signature Hemoglobin 8.0 (L) 13.2 - 16.6 02/21/2022 DTL g/dL 6:38 PM CDT Specimen Anatomical Collection Method Collection Time Receive d Time (Source) Location / / Volume Laterality Blood (Blood, 02/21/2022 6:21 PM 02/22/20 6:32 Venous) CDT PM CDT Cori Reece M.D. LAB BLOOD ADD-ON Performing Organization Address [facility] Phon e Number [facility] - [address] [place], [place] [address] [facility] [place], [place] [id number] [place] [address]-[facility] 200 [facility] (ABNORMAL) Glucose, POCT (02/21/2022 5:09 PM [...] Provider LAB POCT ORDERABLES-MANUAL Performing Organization Address [facility]/ZIP [facility] Phon e Number POC [facility] [address] [place] [address] [place] [address] [place] Urinary Bladder (02/21/2022 2:35 PM [...] City/State/ZIP Code Phon e Number [facility] - [address] [place], [place] [address] [place] [address] Laboratories-[facility] [address] (ABNORMAL) Glucose, POCT [...] Address City/State/ZIP Code Phon e Number POC [facility] [address] [place] [address] [facility] [place] [address] [place] [facility] [address] (TTE) 2D ECHO DOPPLER COLOR AND CONTRAST (02/21/2022 10:59 AM CDT) [facility] Method Time Signature Ejection Fraction 25 [...] per Echocardiography Contrast Administration Protocol Reference Document [id number]. Patient met an inclusion criterion and did [...] per Echocardiography Contrast Administration Protocol Reference Document [id number]. Patient met an inclusion criterion and did [...] Address City/State/ZIP Code Phon e Number POC [facility] [address] [place] [address] [facility] [place] [address] [place] [facility] 200 [facility] (ABNORMAL) Basic Metabolic Panel (02/21/2022 3:46 AM [...] 02/21/2022 DTL Black/ mL/min/BSA 5:14 AM CDT Maldivian Comment: ----ADDITIONAL INFORMATION---- Estimated GFR calculated using [...] City/State/ZIP Code Phon e Number [facility] - [address] [place], [place] [address] [place] [address] Laboratories-[facility] 200 [facility] (ABNORMAL) CBC without Differential (02/21/2022 3:46 AM CDT) [facility] ProtoGeo Method Time Signature Hemoglobin 7.1 (L) 13.2 [...] 02/22/20 22 4:40 Venous) CDT AM CDT Nrua David IV, M.D. LAB BLOOD ADD-ON Performing Organization Address City/State/ZIP Code Phon e Number [facility] - [address] [place], [place] [address] [place] [address] Laboratories-[facility] 200 [facility] SARS Coronavirus 2, PCR Rapid, V (02/20/2022 7:39 PM CDT) [facility] ProtoGeo Method Time Signature SARS CoV-2, Undetected Undetected 02/20/2022 STMA PCR, Rapid, V 8:04 PM CDT Comment: ----ADDITIONAL INFORMATION---- This RT-PCR test was performed using the Simran SARS-CoV-2 and Influenza A/B Reagent assay from [employer], which has received Emergency Use Authori zation(EUA) by the U.S. Food and Drug Administration . Fact sheets for this Emergency Use Autho rization (EUA) assay can be found at the following link s: For Healthcare Providers: https://www.fda.gov/media/677587/downloa d For Patients: https://www.fda.gov/media/973698/downloa d SARS Coronavirus 2, Source, Rapid Swab, Nasopharynx 02/20/2022 7:39 PM CDT [facility] Comment: REVISED RESULTS Specimen Anatomical Collection Method Collection Time Receive d Time (Source) Location / / Volume Laterality Varies 02/20/2022 7:39 PM 2 7:39 CDT PM CDT Nura David IV, M.D. LAB MICROBIOLOGY - GENERA L ORDERABLES Performing Organization Address City/[facility] Phon e Number [facility] - [address] [place] [address] [address] [facility] [place], [place] [phone] [place] [address] 200 [facility] Glucose, POCT (02/20/2022 7:12 PM CDT) [...] Provider LAB POCT ORDERABLES-MANUAL Performing Organization Address City/[facility]/ZIP [facility] Phon e Number POC [facility] [address] [place] [address] [place] [address] [facility] 200 [facility] (ABNORMAL) Glucose, POCT (02/20/2022 12:19 [...] Provider LAB POCT ORDERABLES-MANUAL Performing Organization Address City/[facility] Phon e Number POC [facility] [address] [place] [address] [facility] [place] [address] [place] [facility] 200 [facility] Fibrinogen (02/20/2022 12:13 PM CDT) P athologist Signature Fibrinogen, P [phone] - 393 02/20/2022 DTL mg/dL 1:24 PM CDT Specimen Anatomical Collection Method Collection Time Receive d Time (Source) Location / / Volume Laterality Blood (Blood, 02/20/2022 12:13 02/20/2022 Venous) PM CDT 12:42 PM CDT Nura David IV, M.D. LAB BLOOD ADD-ON Performing Organization Address City/[facility] Phon e Number [facility] - [address] [place], [place] [address] [place] [address] Laboratories-[facility] 200 [facility] (ABNORMAL) Prothrombin Time (PT) (02/20/2022 [...] M.D. LAB BLOOD ADD-ON Performing Organization Address [facility] Phon e Number [facility] - [address] [place], [place] [address] [facility] [place] [phone] [place] [address] (ABNORMAL) Hepatic Function Panel (02/20/2022 12:13 PM [...] M.D. LAB BLOOD ADD-ON Performing Organization Address City/State/[facility] Code Phon e Number [facility] - [address] [place], [place] [address] [address] [facility] [place], [place] [id number] [place] [address] (ABNORMAL) Hemoglobin (02/20/2022 12:13 PM CDT) P athologist Signature Hemoglobin 8.8 (L) 13.2 - 16.6 02/20/2022 DTL g/dL 12:56 PM CDT Specimen Anatomical Collection Method Collection Time Receive d Time (Source) Location / / Volume Laterality Blood (Blood, 02/20/2022 12:13 02/20/2022 Venous) PM CDT 12:43 PM CDT Nura David IV, M.D. LAB BLOOD ADD-ON Performing Organization Address City/[facility]/ZIP [facility] Phon e Number [facility] - [address] [place], [place] [address] [place] [address] [facility] [address] [facility] (ABNORMAL) Glucose, POCT (02/20/2022 9:23 AM [...] Provider LAB POCT ORDERABLES-MANUAL Performing Organization Address [facility] Phon e Number POC [facility] [address] [place] [address] [facility] [place] [address] [facility] 200 [facility] (ABNORMAL) Basic Metabolic Panel (02/20/2022 3:30 AM [...] 02/20/2022 DTL Black/ mL/min/BSA 4:50 AM CDT Maldivian Comment: ----ADDITIONAL INFORMATION---- Estimated GFR calculated using [...] City/State/ZIP Code Phon e Number [facility] - [address] [place] [address] [place] [address] Laboratories-[facility] 200 [facility] (ABNORMAL) CBC without Differential (02/20/2022 3:30 AM CDT) [facility] gist Method Time Signature Hemoglobin 8.1 [...] M.D. LAB BLOOD ADD-ON Performing Organization Address City/State/[facility] Phon e Number [facility] - [address] [place], [place] [address] [place] [address] [facility] [address] [facility] Transfuse Red Blood Cells : (02/19/2022 9:29 PM CDT) Nura David IV, M.D. BLOOD TRANSFUSION ORDERAB LES Transfuse Red Blood Cells : , 1 Units (02/19/2022 9:29 PM CDT) Nura David IV, M.D. BLOOD TRANSFUSION ORDERAB LES (ABNORMAL) Glucose, POCT (02/19/2022 9:09 PM CDT) Analysis Performed At [facility] Time Signature Glucose, POCT, 195 (H) [...] Provider LAB POCT ORDERABLES-MANUAL Performing Organization Address City/[facility] Phon e Number POC [facility] [address] [place] [address] [facility] [place] [address] [place] [facility] [address] [facility] (ABNORMAL) Glucose, POCT (02/19/2022 5:10 PM CDT) Analysis Performed At [facility] logis Time Signature Glucose, POCT, 176 (H) [...] Address City/State/ZIP Code Phon e Number POC [facility] [address] [place] [address] [facility] [place] [address] [place] [facility] 200 [facility] (ABNORMAL) Hemoglobin (02/19/2022 3:33 PM CDT) P athologist Signature Hemoglobin 7.4 (L) 13.2 - 16.6 02/19/2022 DTL g/dL 4:29 PM CDT Specimen Anatomical Collection Method Collection Time Receive d Time (Source) Location / / Volume Laterality Blood (Blood, 02/19/2022 3:33 PM 02/20/20 22 4:18 Venous) CDT PM CDT Nura David IV, M.D. LAB BLOOD ADD-ON Performing Organization Address City/[facility] Code Phon e Number [facility] - [address] [place], [place] [address] [place] [address] Laboratories-[facility] 200 [facility] Type and Screen (with reflex Antibody ID) (02/19/2022 3:33 PM CDT) Patholo gist Method Time Signature ABORh A Pos Not 02/19/2022 STRM applicable 4:20 PM CDT Antibody Negative Negative 02/19/2022 STRM Screen 4:38 PM CDT Type & Screen 02/22/2022 02/19/2022 STRM Expiration 23:59 4:20 PM CDT Testing [place] DEFAULT 02/19/2022 STRM Location 3:47 PM CDT Specimen Anatomical Collection Method Collection Time Receive d Time (Source) Location / / Volume Laterality Blood (Blood, 02/19/2022 3:33 PM 02/20/20 22 3:47 Venous) CDT PM CDT Nura David IV, M.D. LAB BLOOD BANK TEST ORDER RAFFY Performing Organization Address City/State/ZIP Code Phon e Number [facility] - [address] [place], [place] [address] [place] [address] Laboratories-[facility] [address] (ABNORMAL) Glucose, POCT (02/19/2022 [...] Organization Address City/State/ZIP Code Phon e Number [facility] [address] [place] [address] [facility] [place] [address] [place] [facility] [address] (ABNORMAL) Hemoglobin (02/19/2022 9:34 AM CDT) P athologist Signature Hemoglobin 7.8 (L) 13.2 - 16.6 02/19/2022 DTL g/dL 11:01 AM CDT Specimen Anatomical Collection Method Collection Time Receive d Time (Source) Location / / Volume Laterality Blood (Blood, 02/19/2022 9:34 AM 02/20/20 22 Venous) CDT 10:00 AM CDT Nura David IV, M.D. LAB BLOOD ADD-ON Performing Organization Address City/[facility]/ZIP Code Phon e Number [facility] - [address] [place], [place] [address] [place] [address] [facility] [address] (ABNORMAL) Glucose, POCT (02/19/2022 [...] Provider LAB POCT ORDERABLES-MANUAL Performing Organization Address City/State/[facility] Phon e Number POC [facility] [address] [place] [address] [facility] [place] [address] [place] [facility] [address] [facility] (ABNORMAL) CBC without Differential (02/19/2022 3:33 AM CDT) [facility] Method Time Signature Hemoglobin 7.9 (L) [...] City/State/ZIP Code Phon e Number [facility] - [address] [place], [place] [address] [place] [address] Laboratories-[facility] [address] [...] 02/19/2022 DTL Black/ mL/min/BSA 4:30 AM CDT Maldivian Comment: ----ADDITIONAL INFORMATION---- Estimated GFR calculated using [...] City/State/ZIP Code Phon e Number [facility] - [address] [place], [place] [address] [place] [address] Laboratories-[facility] [address] (ABNORMAL) Glucose, POCT (02/19/2022 [...] Address City/State/ZIP Code Phon e Number POC [facility] [address] [place] [address] [place] [address] [place] [facility] [address] [facility] (ABNORMAL) Glucose, POCT (02/18/2022 5:14 PM [...] LAB POCT ORDERABLES-MANUAL Performing Organization Address City/State/ZIP [facility] Phon e Number [facility] [address] [place] [address] [place] [address] [place] [facility] [address] [facility] ECG 12 Lead (02/18/2022 1:25 PM CDT) P athologist Signature Ventricular Rate 69 BPM MUSE ECG/Min [place] Interval 168 ms MUSE QRSD Interval 102 ms MUSE QT Interval 454 ms MUSE QTC Interval 486 ms MUSE P [place] 71 degrees MUSE R [place] -8 degrees MUSE T Wave [place] 97 degrees MUSE Specimen Anatomical Collection Method [...] Address City/State/ZIP Code Phon e Number POC [facility] [address] [place] [address] PCLX [facility] [place] [address] [place] [facility] [address] Abdomen and/or [...] Component Value Ref Test Analysis Performed At [facility] Range Method Time Signature (A) 02/20/2022 [...] City/State/ZIP Code Phon e Number [facility] - [address] [place], [place] [address] [facility] [place], [place] [address] [place] [address] Glucose, POCT (02/18/2022 7:25 AM CDT) Analysis Performed At [facility] logist Time Signature Glucose, POCT, 112 70 - 140 02/18/2022 PCLX B mg/dL 12:58 PM CDT Site Capillary 02/18/2022 PCLX 12:58 PM CDT Specimen Anatomical Collection Method Collection Time Receive d Time (Source) Location / / Volume Laterality Blood 02/18/2022 7:25 AM 2 CDT 12:59 PM CDT Unknown Provider LAB POCT ORDERABLES-MANUAL Performing Organization Address City/State/ZIP Code Phon e Number POC [facility] [address] [place] [address] [place], [place] [phone] [place] [address] documented in this [...] (Not Given - Provider: Maria D washington RJluisNJulis - Reason: Order parameters not met)2127 (Given - Provider: Riley Paiz RlJuisNJluis) 3 mL, intravenous, Every 12 hours schedu [...] documented as of this encounter Care Teams Honey Blender Relationship Specialty Start Date End Date Elsewhere, Pcp PCP - General Internal Medicine 01/14/22 documented as of this encounter
--- OUTSIDE RECORDS SUMMARY | 2022-09-02 13:20 | XMS_ITS | Encounter Summary ---
:1935 Author Organization [facility] Address [address] [place] [address] Care Team Providers Name Role Phone Unavailable Primary Care Provider Unavailable Reason for Referral Outpatient (Routine) - Closed Specialty Diagnoses / Procedures Referred By Contact Refer red To Contact Dermatology Aashish Pandey M.D . [facility] Region [address] [place] [address] Referral ID Status Reason Start Date Expiration Date Visits Requ ested Visits Authorized [id number] Closed 08/03/2019 08/02/2020 1 1 Reason for Visit Reason Comments Follow-up Appointment Request (Routine) - Closed Specialty Diagnoses / Procedures Referred By Contact Refer red To Contact Dermatology Referral ID Status Reason Start Date Expiration Date Visits Requ ested Visits Authorized [id number] Closed 05/25/2019 05/24/2020 1 Encounter Details Date Type Department Care Team Description 08/03/2019 Office Visit Department of Aashish Pandey, Keratosis Actinic (Primary Dx); Dermatology in [place] Cancer Skin Squamous Cell Personal Histo [place], [place] [address] [place] [phone] Social History Tobacco Use Types Packs/Day Years [...] you attend orthodox or Patient refused 2021 sikhism services? Do you belong to any clubs or No 05/17/2022 organizations such as orthodox groups, unions, [employer] or athletic groups, or school groups? 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 - 08/03/2019 8:00 AM CDT [...] surgery on 07/27/[address] Juarez at [facility]. 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 The largest of his squamous cell carcinomas involving his left cheek was initially treated with CO2 laser in [place] and then Mohs surgery thereafter. He also [...] status post Mohs surgery by Dr. Hare??at [facility] on 10/27/17 2. Squamous cell carcinoma in [...] surgery on 07/27/[address] Juarez at [facility] OBJECTIVE PHYSICAL EXAMINATION General: Awake, alert, in [...] a total of 29 lesion(s) with two 57-74-vqzbjp freeze-thaw cycles of liquid nitrogen cryoth erapy. [...] surgery on 07/27/[address] Juarez at [facility] No clinical evidence of local recurrence today. [...] Urology Albert Waller M.D. [address] [place] [phone] (Wo rk) Scheduled Referrals Name Type Priority Associated Order Schedule Diagnoses Dermatology office Outpatient Referral Routine Ex pected: visit (clinic) 08/03/2019 (Approximate), Expires: 08/03/2022 documented as of this encounter Visit Diagnoses Diagnosis Keratosis Actinic - Primary Cancer Skin Squamous Cell Personal Histo ry documented in this encounter
--- OUTSIDE RECORDS SUMMARY | 2022-09-02 13:20 | XMS_ITS | Encounter Summary ---
:1935 Author Organization [facility] Address [address] [place] [address] Care Team Providers Name Role Phone Unavailable Primary Care Provider Unavailable Encounter Details Date Type Department Care Team Description 06/05/2021 Orders Only [facility] MNGordon Henderson, D.OJluis [address] [place] [address] (Wo rk) Social History Tobacco [...] you attend lutheran or Patient refused 2021 restoration services? 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 [address] [place] [phone] (Wo rk) documented as of this encounter Visit Diagnoses Not on filedocumented in this encounter
--- OUTSIDE RECORDS SUMMARY | 2022-09-02 13:20 | XMS_ITS | Encounter Summary ---
:1935 Author Organization [facility] Address [address] [place] [address] Care Team Providers Name Role Phone Unavailable [...] you attend worship or Patient refused 2021 episcopalian services? 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 [address] [place] [phone] (Wo rk) documented as of this [...]
--- OUTSIDE RECORDS SUMMARY | 2022-09-02 13:20 | XMS_ITS | Encounter Summary ---
:1935 Author Organization [facility] Address [address] [place] [address] Care Team Providers Name Role Phone Unavailable [...] you attend restorationist or Patient refused 2021 baptist services? 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 [address] [place] [phone] (Wo rk) documented as of this [...]
--- OUTSIDE RECORDS SUMMARY | 2022-09-02 13:20 | XMS_ITS | Encounter Summary ---
:1935 Author Organization [facility] Address [address] [place] [address] Care Team Providers Name Role Phone Elsewhere, Pcp Primary Care Provider Unavailable Reason for Visit Reason Comments Abnormal Lab Encounter Details Date Type Department Care Team Description 01/14/2022 Emergency [facility] Samanta Barfield, Pablo colón (Primary Dx) Emergency Department M.D. [address] [place] [address] [address] [place] [phone] [phone] Social History Tobacco Use Types Packs/Day Years [...] you attend mormon or Patient refused 2021 christianity services? 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 Patient had an angiogram last Friday without [...] follow up with his primary provider in [place] where he can continue to have the [...] M.D. [address] [place] [phone] (Wo rk) documented as of this [...] MUSE QTC Interval 470 ms MUSE R Bolig[place] -8 degrees MUSE T Wave [place] 111 degrees MUSE Specimen Anatomical Collection Method [...] City/State/ZIP Code Phon e Number [facility] - [address] [place], [place] [address] [facility] [place] [address] [facility] [place] 200 [facility] (ABNORMAL) CBC with Differential, Blood (01/14/2022 5:03 PM CDT) [facility] Method Time Signature Hemoglobin 10.4 (L) 13.2 [...] LAB BLOOD ADD-ON Performing Organization Address City/State/[facility] Code Phon e Number [facility] - 200 [place], [place] [address] [facility] [place] [address] Laboratories-[address] [place] [address] Lipase (01/14/2022 5:03 PM CDT) P athologist Signature Lipase, S 17 13 - 60 U/L 01/14/2022 6:03 DTL PM CDT Specimen Anatomical Collection Method Collection Time Receive d Time (Source) Location / / Volume Laterality Blood (Blood, 01/14/2022 5:03 PM 01/15/20 5:37 Venous) CDT PM CDT Samanta Barfield M.D. LAB BLOOD ADD-ON Performing Organization Address City/State/[facility] Code Phon e Number [facility] - 200 [place], [place] [address] [facility] [place] [address] Laboratories-[address] (ABNORMAL) Hepatic Function Panel (01/14/2022 5:03 [...] City/State/ZIP Code Phon e Number [facility] - 200 [place], [place] [address] [facility] [place] [address] [facility] 200 [facility] (ABNORMAL) Basic Metabolic Panel (01/14/2022 5:03 PM [...] CDT eGFR-Black/Afric 79 >=60 01/14/2022 DTL an Trinidadian mL/min/BSA 6:09 PM CDT Comment: ----ADDITIONAL INFORMATION---- [...] City/State/ZIP Code Phon e Number [facility] - 200 [place], [place] [address] [facility] [place] [address] [facility] [place] [address] ECG 12 Lead (01/14/2022 4:25 PM CDT) P athologist Signature Ventricular Rate 69 BPM MUSE ECG/Min SC Interval 238 ms MUSE QRSD Interval 102 ms MUSE QT Interval 428 ms MUSE QTC Interval 459 ms MUSE P [place] 65 degrees MUSE R [place] -3 degrees MUSE T Wave [place] 83 degrees MUSE Specimen Anatomical Collection Method [...] injection documented in this encounter Care Teams Ec Teacher Relationship Specialty Start Date End Date Elsewhere, Pcp PCP - General Internal Medicine 01/14/22 documented as of this encounter
--- OUTSIDE RECORDS SUMMARY | 2022-09-02 13:20 | XMS_ITS | Encounter Summary ---
:1935 Author Organization [facility] Address [address] [place] [address] Care Team Providers Name Role Phone Unavailable Primary Care Provider Unavailable Reason for Referral Outpatient (Routine) - Closed Specialty Diagnoses / Procedures Referred By Contact Refer red To Contact Dermatology Aashish Pandey M.D . [address] [address] Referral ID Status Reason Start Date Expiration Date Visits Requ ested Visits Authorized [id number] Closed 10/04/2019 10/03/2020 1 1 Scheduling Instructions 915 am recheck lesion S AND SERVICE TECHNICIAN Reason for Visit Reason Comments Actinic Keratosis Recheck Outpatient (Routine) - Closed Specialty Diagnoses / Procedures Referred By Contact Refer red To Contact Dermatology [facility] M.D . [facility] [address] [address] Referral ID Status Reason Start Date Expiration Date Visits Requ ested Visits Authorized [id number] Closed 08/03/2019 08/02/2020 1 1 Encounter Details Date Type Department Care Team Description 10/04/2019 Office Visit Department of Aashish Pandey Nevi Multi ple (Primary Dx); Dermatology in [place] Keratosis Actinic; [address] Keratosis Seborrheic; [address] [place], [place] Cancer Skin Squamous [place] [address] [phone] Social History Tobacco Use Types Packs/Day Years [...] you attend hindu or Patient refused 2021 restorationist services? Do you belong to any clubs or No 05/17/2022 organizations such as hindu groups, unions, fraUnited Pharmacy Partners ([employer]) or athletic groups, or school groups? 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 Juarez at [facility]. He denies a personal or family history for melanoma. The patient has no other concerns today. MEDICAL HISTORY 1. 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 Hare??at [facility] on 10/27/17 2. Squamous cell carcinoma [...] surgery on 07/27/[address] Juarez at [facility] 6. Negative for melanoma FAMILY HISTORY Negative for melanoma OBJECTIVE PHYSICAL EXAMINATION General: Awake, alert, in no acute distress, and with appropriate affect. Skin: Examination of the face and upper extremities reveals actinic keratoses, including the right hindu x2, right cheek x2, right ear antihelix [...] a total of 20 lesion(s) with two 68-34-zlaoze freeze-thaw cycles of liquid nitrogen cryoth erapy. [...] Electronically Signed: cookie Kelly. 10/04/2019. 9:59 AM SALES AND SERVICE TECHNICIAN. Aashish Dubon M.D., personally performed the services described in this documentation. All medical record entries made by the scribe were at my direction and in my presence. I have reviewed the chart and discharge instructions (if applicable) and agree that the record reflects my personal performance and is accurate and complete. Aashish Pandey M.D. . 10/04/2019. 10:17 AM SALES AND SERVICE TECHNICIAN. S AND SERVICE TECHNICIAN documented in this encounter Plan of Treatment Upcoming Encounters Date Type Specialty Care Team Description 09/03/2022 Telemedicine Urology Albert Waller M.D. 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
--- OUTSIDE RECORDS SUMMARY | 2022-09-02 13:20 | XMS_ITS | Encounter Summary ---
:1935 Author Organization [facility] Address [address] [place] [address] Care Team Providers Name Role Phone Unavailable Primary Care Provider Unavailable Reason for Visit Appointment Request (Routine) - Closed Specialty Diagnoses / Procedures Referred By Contact Refer red To Contact Nephrology and Slava Edwards Hypertension [place] [address] [place] [address] Referral ID Status Reason Start Date Expiration Date Visits Requ ested Visits Authorized [id number] Closed 08/03/2020 08/03/2021 1 1 Encounter Details Date Type Department Care Team Description 08/23/2020 External Outreach Division of Nida Castro on And Nephrology and Ross Chiu Jr., Chronic Kidn ey Hypertension in D.O. Disease Stage 1 To 4 [place], [place] [address] [facility] [address] [place] [address] [phone] Social History Tobacco Use Types Packs/Day Years [...] you attend gnosticist or Patient refused 2021 taoism services? 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 D.O. - 08/23/2020 4:00 PM CST NO show [place] CKD H MAKER HAND documented in this encounter Plan of Treatment Upcoming Encounters Date Type Specialty Care Team Description 09/03/2022 Telemedicine Urology Albert Waller M.D. [address] [place] [phone] (Wo rk) documented as of this encounter Visit Diagnoses Diagnosis Hypertension And Chronic Kidney Disease Stage 1 To 4 documented in this encounter
--- OUTSIDE RECORDS SUMMARY | 2022-09-02 13:20 | XMS_ITS | Encounter Summary ---
:1935 Author Organization [facility] Address [address] [place] [address] Care Team Providers Name Role Phone Unavailable Primary Care Provider Unavailable Encounter Details Date Type Department Care Team Description 07/31/2020 Clinical Communication Department of Aashish Pandey, Dermatology in [place], [place] [address] [place] [address] [phone] Social History Tobacco Use Types Packs/Day Years [...] attend roman catholic or Patient refused 2021 baptism services? 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 Friend: [phone] [place]: [phone] [place]: [phone] [place]: [phone] [place]: [phone] [place]: [phone] Jenaro Headley [facility]: [phone] Andres Laurent [place], [place], or [facility]: [phone] [place]:[phone] [place]: [phone] Thank you for trusting your health care to [facility]. documented in this encounter Plan of Treatment Upcoming Encounters Date Type Specialty Care Team Description 09/03/2022 Telemedicine Urology Albert Waller M.D. [address] [place] [phone] (Wo rk) documented as of this encounter Visit Diagnoses Not on filedocumented in this encounter
--- OUTSIDE RECORDS SUMMARY | 2022-09-02 13:20 | XMS_ITS | Encounter Summary ---
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 [address] [place] [phone] (Wo rk) documented as of this encounter Visit Diagnoses Not on filedocumented in this encounter
--- OUTSIDE RECORDS SUMMARY | 2022-09-02 13:20 | XMS_ITS | Encounter Summary ---
:1935 Author Organization [facility] Address [address] [place] [address] Care Team Providers Name Role Phone Elsewhere, Pcp Primary Care Provider Unavailable Encounter Details Date Type Department Care Team Description 01/14/2022 Documentation Division of Nephrology and Alicia Jeffrey, Hypertension in [place], [place], Ph.D. [address] [place] [phone] [phone] (Wo rk) Social History Tobacco Use Types [...] you attend mu-ism or Patient refused 2021 latter-day services? 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 [address] [place] [address] (Wo rk) documented as of this encounter Visit Diagnoses Not on filedocumented in this encounter Care Teams Cracking And Fanning Machine Operator Relationship Specialty Start Date End Date Elsewhere, Pcp PCP - General Internal Medicine 01/14/22 documented as of this encounter
--- OUTSIDE RECORDS SUMMARY | 2022-09-02 13:20 | XMS_ITS | Encounter Summary ---
:1935 Author Organization [facility] Address [address] [place] [address] Care Team Providers Name Role Phone Unavailable Primary Care Provider Unavailable Reason for Referral Outpatient (Routine) - Closed Specialty Diagnoses / Procedures Referred By Contact Refer red To Contact Dermatology Aashish Pandey M.D . [facility] Region [address] [place] [phone] Referral ID Status Reason Start Date Expiration Date Visits Requ ested Visits Authorized Closed 05/01/2020 05/01/2021 1 1 Scheduling Instructions Return visit in 2-3 months. 30 minutes Reason for Visit Reason Comments Skin Check Encounter Details Date Type Department Care Team Description 05/01/2020 Office Visit Department of Aashish Pandey, Keratosis Actinic Dermatology in [place] (Primary Dx) [place], [place] [address] [phone] Social History Tobacco Use Types Packs/Day Years [...] attend jehovah's witness or Patient refused 2021 rastafari services? Do you belong to any clubs or No 05/17/2022 organizations such as jehovah's witness groups, unions, fraVibrant Energy or athletic groups, or school groups? 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 Hare??at [facility] on 10/27/17 2. Squamous cell [...] surgery on 07/27/[address] Juarez at [facility] 6. Negative for melanoma FAMILY [...] He also has 1 AK involving the ntkmd0th dorsal finger and 1 involving the right [...] Waller M.D. [address] [place] [phone] (Wo rk) Scheduled Referrals Name Type Priority Associated Order Schedule Diagnoses Dermatology office Outpatient Referral Routine Ex pected: visit (clinic) 08/01/2020 (Approximate), Expires: 05/01/2023 documented as of this encounter Visit Diagnoses Diagnosis Keratosis Actinic - Primary documented in this encounter
--- OUTSIDE RECORDS SUMMARY | 2022-09-02 13:20 | XMS_ITS | Encounter Summary ---
:1935 Author Organization [facility] Address [address] [place] [address] Care Team Providers Name Role Phone Unavailable [...] you attend yarsanism or Patient refused 2021 holiness services? 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 [address] [place] [phone] (Wo rk) documented as of this [...]
--- OUTSIDE RECORDS SUMMARY | 2022-09-02 13:20 | XMS_ITS | Encounter Summary ---
:1935 Author Organization [facility] Address [address] [place] [address] Care Team Providers Name Role Phone Unavailable [...] you attend scientology or Patient refused 2021 synagogue services? 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 [address] [place] [phone] (Wo rk) documented as of this [...]
--- OUTSIDE RECORDS SUMMARY | 2022-09-02 13:21 | XMS_ITS | Encounter Summary ---
:1935 Author Organization [facility] Address [address] [place] [address] Care Team Providers Name Role Phone Unavailable Primary Care Provider Unavailable Reason for Visit Reason Onset Date Comments Derm schedule 09/14/2018 Encounter Details Date Type Department Care Team Description 09/14/2018 Clinical Communication Department of Becky Trinidad [facility] Medicine, [place] Ashtyn Newby [facility], in [address] [address] [place], [place] [phone] (Work) [phone] Social History Tobacco Use Types Packs/Day Years [...] you attend denominational or Patient refused 2021 religion services? 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 - 09/15/2018 5:48 PM CST Discussed with Dr. Pandey and he would like to open a procedure appointment slot on Friday11/24/18 at 8am to see this patient. Will ask the Appointment Office to reach out to the patient to schedule this appointment. DCAST PROGRAM DIRECTOR Telephone Encounter - Brii Heller - 09/14/2018 9:25 AM CST Pt. Was seen by Katherin today 09/14. Says he needs to be seen in 2 to 3 months. But first available isn't until 01/05. Which is about 3 and a half months. Please let me know when to schedule this patient and I will call him to get it scheduled. DCAST PROGRAM DIRECTOR documented in this encounter Plan of Treatment Upcoming Encounters Date Type Specialty Care Team Description 09/03/2022 Telemedicine Urology Albert Waller M.D. [address] [place] [phone] (Wo rk) documented as of this encounter Visit Diagnoses Not on filedocumented in this encounter
--- OUTSIDE RECORDS SUMMARY | 2022-09-02 13:21 | XMS_ITS | Encounter Summary ---
:1935 Author Organization [facility] Address [address] [place] [address] Care Team Providers Name Role Phone Unavailable [...] you attend rastafarian or Patient refused 2021 christian services? 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 [address] [place], [place] [phone] (Wo rk) documented as of this encounter Procedures Procedure Name Priority Date/Time Associated Comments Diagnosis DERMATOLOGY IMAGE Routine 10/27/2017 12:10 Result s for this EXAM PM STOVE MECHANIC procedure are i n the results section. documented in this encounter Results DERMATOLOGY IMAGE EXAM (10/27/2017 12:10 PM STOVE MECHANIC) Specimen (Source) Anatomical Location Collection Method / Collectio n Time Received Time / Laterality Volume Narrative IIMS - 10/27/2017 4:43 PM STOVE MECHANIC This order has been created and auto-finalized [...]
--- OUTSIDE RECORDS SUMMARY | 2022-09-02 13:21 | XMS_ITS | Encounter Summary ---
:1935 Author Organization [facility] Address [address] [place] [address] Care Team Providers Name Role Phone Unavailable [...] you attend restorationist or Patient refused 2021 rastafari services? Do [...] Date Recorded Male 09/10/2018 8:41 AM RN DELIVERY documented as of this encounter Plan of Treatment Upcoming Encounters Date Type Specialty Care Team Description 09/03/2022 Telemedicine Urology Albert Waller M.D. [address] [place] [phone] (Wo rk) documented as of this [...]
--- OUTSIDE RECORDS SUMMARY | 2022-09-02 13:21 | XMS_ITS | Encounter Summary ---
:1935 Author Organization [facility] Address [address] [place] [address] Care Team Providers Name Role Phone Unavailable Primary Care Provider Unavailable Reason for Referral Outpatient (Routine) - Closed Specialty Diagnoses / Procedures Referred By Contact Refer red To Contact Dermatology Aashish Pandey M.D . 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 [facility] Region [address] [place] [phone] Referral ID Status Reason Start Date Expiration Date Visits Requ ested Visits Authorized [id number] Closed 09/14/2018 09/14/2019 1 1 Encounter Details Date Type Department Care Team Description 11/24/2018 Office Visit Department of Aashish Pandey, Keratosis Actinic (Primary Dx); Dermatology in [place] Keratosis Seborrheic; [place], [place] [address] [place] [address] Cancer Skin Squamous Cell [place] [address] [phone] Social History Tobacco Use Types Packs/Day [...] you attend hindu or Patient refused 2021 latter-day services? 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 The largest of his squamous cell carcinomas involving his left cheek was initially treated with CO2 laser in [place] and then Mohs surgery thereafter. ?? Allergies Allergen Reactions ??? Penicillins Anaphylaxis PAST MEDICAL HISTORY 1. 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 Hare at [facility] on 10/27/17 2. Squamous [...] a total of 33 lesion(s) with two 35-21-rwlrtu freeze-thaw cycles of liquid nitrogen cryoth erapy, [...] post Mohs surgery by Dr. Hare at [facility] on 10/27/17 No evidence for recurrence [...] Aashish Pandey M.D. . 11/24/2018. 8:32 AM. 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
--- OUTSIDE RECORDS SUMMARY | 2022-09-02 13:21 | XMS_ITS | Encounter Summary ---
:1935 Author Organization [facility] Address [address] [place] [address] Care Team Providers Name Role Phone Unavailable Primary Care Provider Unavailable Reason for Referral Appointment Request (Routine) - Closed Specialty Diagnoses / Procedures Referred By Contact Refer red To Contact Procedures Aashish Pandey M.D. [facility] 1-[address] sites [address] [place] [phone] Referral ID Status Reason Start Date Expiration Date Visits Requ ested Visits Authorized [id number] Closed 07/12/2019 07/11/2020 1 Encounter Details Date Type Department Care Team Description 07/12/2019 Orders Only Department of Aashish Pandey, Malignant Neoplasm Of Dermatology in [place] Face Squamous Cell [address] (Primary Dx) [address] [place] [phone] Social History Tobacco Use Types Packs/Day Years [...] you attend pentecostal or Patient refused 2021 faith services? Do you belong to any clubs or No 05/17/2022 organizations such as pentecostal groups, unions, [employer] or athletic groups, or school groups? 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 [address] [place] [phone] (Wo rk) Scheduled Orders Name Type Priority Associated Diagnoses [facility] 1-4 sites Dermatology Routine Malignant Neoplasm Of Expected: 07/12/2019 Face Squamous Cell (Approxim ate), Expires: 2021 documented as of this encounter Visit Diagnoses Diagnosis Malignant Neoplasm Of Face Squamous Cell - Primary documented in this encounter
--- OUTSIDE RECORDS SUMMARY | 2022-09-02 13:21 | XMS_ITS | Encounter Summary ---
:1935 Author Organization [facility] Address [address] [place] [address] Care Team Providers Name Role Phone Unavailable Primary Care Provider Unavailable Reason for Visit Reason Comments Skin Check Encounter Details Date Type Department Care Team Description 06/02/2018 Office Visit Department of Aashish Pandey, Keratosis Actinic (Primary Dx); Dermatology in [place] [facility]; [place], [place] [address] [facility] Keratosis Seborrheic; [address] [place] [address] Cancer Skin Squamous [place] [phone] Social History Tobacco Use Types Packs/Day [...] you attend uatsdin or Patient refused 2021 sikhism services? 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 Hare. 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 The squamous cell carcinoma involving his left cheek was treated initially with CO2 laser in [place] and then Mohs surgery thereafter. He also has a history of squamous cell carcinomas involving his right infraorbital area, left eyebrow, and right nasal dorsum, all treated with Mohs surgery at [facility] in October 2017. Today he has [...] dorsum all treated with Mohs surgery at [facility] in October 2017 PHYSICAL EXAM General: [...] direction and in the presence of Aashish Padney M.D.. Electronically Signed: cookie Tafoya. 06/02/2018. 1:29 [...] Albert Waller M.D. [address] [place] [phone] (Wo rk) documented as of this encounter Visit Diagnoses Diagnosis Keratosis Actinic - Primary Nevi Multiple Keratosis Seborrheic Cancer Skin Squamous Cell Personal Histo ry documented in this encounter
--- OUTSIDE RECORDS SUMMARY | 2022-09-02 13:21 | XMS_ITS | Encounter Summary ---
:1935 Author Organization [facility] Address [address] [place] [address] Care Team Providers Name Role Phone Unavailable [...] you attend sikhism or Patient refused 2021 religion services? 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 [address] [place] [phone] (Wo rk) documented as of this [...]
--- OUTSIDE RECORDS SUMMARY | 2022-09-02 13:21 | XMS_ITS | Encounter Summary ---
:1935 Author Organization [facility] Address [address] [place] [address] Care Team Providers Name Role Phone Unavailable [...] you attend moravian or Patient refused 2021 synagogue services? 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 [address] [place] [phone] (Wo rk) documented as of this encounter Procedures Procedure Name Priority Date/Time Associated Comments Diagnosis DERMATOLOGY IMAGE Routine 10/27/2017 12:00 Result s for this EXAM PM LOW EMISSION AUTOMOBILE DESIGNER procedure are i n the results section. documented in this encounter Results DERMATOLOGY IMAGE EXAM (10/27/2017 12:00 PM LOW EMISSION AUTOMOBILE DESIGNER) Specimen (Source) Anatomical Location Collection Method / Collectio n Time Received Time / Laterality Volume Narrative IIMS - 10/27/2017 4:43 PM LOW EMISSION AUTOMOBILE DESIGNER This order has been created and [...]
--- OUTSIDE RECORDS SUMMARY | 2022-09-02 13:21 | XMS_ITS | Encounter Summary ---
:1935 Author Organization [facility] Address [address] [place] [address] Care Team Providers Name Role Phone Unavailable Primary Care Provider Unavailable Encounter Details Date Type Department Care Team Description 04/13/2019 Clinical Communication Department of Shanta Pena V., Dermatology in [address] [phone] Social History Tobacco Use Types Packs/Day Years [...] you attend spiritism or Patient refused 2021 zoroastrianism services? 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 [address] [place] [phone] (Wo ) documented as of this encounter Visit Diagnoses Not on filedocumented in this encounter
--- OUTSIDE RECORDS SUMMARY | 2022-09-02 13:21 | XMS_ITS | Encounter Summary ---
:1935 Author Organization [facility] Address [address] [place] [address] Care Team Providers Name Role Phone Unavailable Primary Care Provider Unavailable Reason for Visit Reason Comments Biopsy Encounter Details Date Type Department Care Team Description 06/29/2019 Procedure visit Department of Aashish Pandey (Primary Dx); Dermatology in [place] M.D. Keratosis [place], [place] [address] [place] [phone] Social History Tobacco Use Types Packs/Day Years [...] you attend christian or Patient refused 2021 druze services? 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 The patient was very adamant about not going down to [facility] and would like me to treat [...] dorsum all treated with Mohs surgery at [facility] on10/27/17. The largest of his squamous cell carcinomas involving his left cheek was initially treated with CO2 laser in [place] and then Mohs surgery thereafter. 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 Hare. MEDICAL HISTORY 1. 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 Hare??at [facility] on 10/27/17 2. Squamous cell [...] which he refused to go down to [place] to have this done. Subsequently, we recommend [...] he is not willing to travel to [facility] at this time. PROCEDURAL PAUSE: Procedural [...] the patient by letter. Patient given pamphlet [id number]. Discussed the risks, benefits, alternatives, and the necessity of other members of the healthcare team participating in the procedure. All questions answered and consent given. #2 Left preauricular: Squamous cell carcinoma, superficially transected As noted above, we had recommended Mohs surgery for this squamous cell carcinoma. However, he refused to go to [place] to have the Mohs surgery done. Subsequently, [...] he is not willing to travel to [facility] at this time. PROCEDURAL PAUSE: Procedural [...] the patient by letter. Patient given pamphlet [id number]. Discussed the risks, benefits, alternatives, and the [...] require further treatment with Mohs surgery in [place]. He knowswhat to expect with the Mohs surgery and subsequently I have placed an order to have this done. I have asked him to follow up with me in the next few months and he states he already has an appointment.They requested that the [place] appointment office call them with regards to the Mohs surgery date and time and I told him I would put that on the request. I have asked them to call me if they have not heard back from our appointment office in [place] within a week or if the surgery date is more than 4-6 weeks from now. They are appreciative of the phone call. All questions answered. documented in this encounter Plan of Treatment Upcoming Encounters Date Type Specialty Care Team Description 09/03/2022 Telemedicine Urology Albert Waller M.D. [address] [place] [phone] (Wo rk) documented as of [...] Code Phon e Number [facility] - [address] documented in this encounter Visit Diagnoses [...]
--- OUTSIDE RECORDS SUMMARY | 2022-09-02 13:21 | XMS_ITS | Encounter Summary ---
:1935 Author Organization [facility] Address [address] [place] [address] Care Team Providers Name Role Phone Unavailable [...] you attend rastafarian or Patient refused 2021 jain services? 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 [address] [place], [place] [phone] (Wo rk) documented as of this encounter Procedures Procedure Name Priority Date/Time Associated Comments Diagnosis DERMATOLOGY IMAGE Routine 10/27/2017 12:20 Result s for this EXAM PM INTERLIBRARY LOAN SPECIALIST procedure are i n the results section. documented in this encounter Results DERMATOLOGY IMAGE EXAM (10/27/2017 12:20 PM INTERLIBRARY LOAN SPECIALIST) Specimen (Source) Anatomical Location Collection Method / Collectio n Time Received Time / Laterality Volume Narrative IIMS - 10/27/2017 4:43 PM INTERLIBRARY LOAN SPECIALIST This order has been created and [...]
--- OUTSIDE RECORDS SUMMARY | 2022-09-02 13:21 | XMS_ITS | Encounter Summary ---
:1935 Author Organization [facility] Address [address] [place] [address] Care Team Providers Name Role Phone Unavailable Primary Care Provider Unavailable Encounter Details Date Type Department Care Team Description 02/12/2016 Hospital Encounter HX RST DERM SURG OP [facility] Ra yandel Hare M.D. [address] [place] [phone] (Wo rk) Social History Tobacco Use Types [...] you attend baptism or Patient refused 2021 samaritan services? 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 [address] [place] [phone] (Wo rk) documented as of this encounter Visit Diagnoses Not on filedocumented in this encounter
--- OUTSIDE RECORDS SUMMARY | 2022-09-02 13:21 | XMS_ITS | Encounter Summary ---
:1935 Author Organization [facility] Address [address] [place] [address] Care Team Providers Name Role Phone Unavailable Primary Care Provider Unavailable Reason for Referral Outpatient (Routine) - Closed Specialty Diagnoses / Procedures Referred By Contact Refer red To Contact Dermatology Aashish Pandey M.D . 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 Do you belong to any clubs or No 05/17/2022 organizations such as mormon groups, unions, [facility] or athletic groups, or school groups? 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 Hare. 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 The patient does not use sunscreen. The largest of his squamous cell carcinomas involving his left cheek was initially treated with CO2 laser in [place] and then Mohs surgery thereafter. He has also had squamous cell carcinomas as noted above involving his face and more specifically the right infraorbital area, left eyebrow, and right nasal dorsum all treated with Mohs surgery [place] in October 2017. PAST MEDICAL HISTORY 1. Multiple squamous cell carcinomas involving his left cheek, right infraorbital area, left eyebrow, and right nasal dorsum all treated with Mohs surgery at [facility] in October 2017 2. Squamous cell carcinoma [...] Aashish Pandey M.D. . 09/14/2018. 8:26 AM. TED STRING INSTRUMENT REPAIRER documented in this encounter Plan of Treatment Upcoming Encounters Date Type Specialty Care Team Description 09/03/2022 Telemedicine Urology Albert Waller M.D. 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
--- OUTSIDE RECORDS SUMMARY | 2022-09-02 13:21 | XMS_ITS | Encounter Summary ---
:1935 Author Organization [facility] Address [address] [place] [address] Care Team Providers Name Role Phone Unavailable [...] you attend synagogue or Patient refused 2021 judaism services? 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 [address] [place], [place] [phone] (Wo rk) documented as of this encounter Procedures Procedure Name Priority Date/Time Associated Comments Diagnosis DERMATOLOGY IMAGE Routine 10/27/2017 12:15 Result s for this EXAM PM GRE INSTRUCTOR procedure are i n the results section. documented in this encounter Results DERMATOLOGY IMAGE EXAM (10/27/2017 12:15 PM GRE INSTRUCTOR) Specimen (Source) Anatomical Location Collection Method / Collectio n Time Received Time / Laterality Volume Narrative IIMS - 10/27/2017 4:43 PM GRE INSTRUCTOR This order has been created and auto-finalized [...]
--- OUTSIDE RECORDS SUMMARY | 2022-09-02 13:21 | XMS_ITS | Encounter Summary ---
:1935 Author Organization [facility] Address [address] [place] [address] Care Team Providers Name Role Phone Unavailable Primary Care Provider Unavailable Reason for Visit Reason Comments Biopsy Encounter Details Date Type Department Care Team Description 05/25/2019 Procedure visit Department of Aashish Pandey Tumor Skin Uncertain Behavior (Primary Dx); Dermatology in [place] New[place] M.D. Keratosis Actinic; [place], [place] [address] [facility] Keratosis Seborrheic Inflamed [address] [place] [phone] Social History Tobacco Use Types Packs/Day Years [...] you attend religion or Patient refused 2021 scientologist services? 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 on 10/27/17. The largest of his squamous cell carcinomas involving his left cheek was initially treated with CO2 laser in [place] and then Mohs surgery thereafter. 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 Hare??at [facility] on 10/27/17 2. Squamous cell carcinoma [...] the patient by letter. Patient given pamphlet [id number]. Discussed the risks, benefits, alternatives, and the necessity of other members of the healthcare team participating in the procedure. All questions answered and consent given. 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 Patient given pamphlet [id number]. Discussed the risks, benefits, alternatives, and the [...] a total of 14 lesion(s) with two 48-73-wjymjo freeze-thaw cycles of liquid nitrogen cryoth erapy. [...] a total of 1 lesion(s) with two 79-33-sojmvb freeze-thaw cycles of liquid nitrogen cryotherapy. The [...] of Aashish Pandey M.D. Electronically Signed: cookie Elnea. 05/25/2019. 10:35 AM . IAashish M.D., personally [...] transected. I have recommended Mohs surgery at [facility]. Patient is very adamant about not going down to [facility] and would like me to treat these lesions. I discussed with him that the optimal treatment is the Mohs surgery and he understands but does not want to go havethis done. Subsequently, he will return to [place] where we will do further shave biopsies [...] surgery at this time. An appointment for [facility] was placed today. documented in this encounter Plan of Treatment Upcoming Encounters Date Type Specialty Care Team Description 09/03/2022 Telemedicine Urology Albert Waller M.D. [address] [place] [phone] (Wo rk) documented as of this [...] is a 0.5 x 0.4 cm pale iov-edwdhc-jcsgd, slightly raised, firm lesion with irregular borders [...] Organization Address City/State/ZIP Code Phon e Number [facility] - [address] documented in this encounter Visit Diagnoses [...]
--- OUTSIDE RECORDS SUMMARY | 2022-09-02 13:21 | XMS_ITS | Encounter Summary ---
:1935 Author Organization [facility] Address [address] [place] [address] Care Team Providers Name Role Phone Unavailable Primary Care Provider Unavailable Reason for Visit Reason Comments Skin Check Outpatient (Routine) - Closed Specialty Diagnoses / Procedures Referred By Contact Refer red To Contact Dermatology Aashish Pandey M.D . [facility] [address] [place] [phone] Referral ID Status Reason Start Date Expiration Date Visits Requ ested Visits Authorized [id number] Closed 02/16/2019 02/16/2020 1 1 Encounter Details Date Type Department Care Team Description 04/19/2019 Office Visit Department of Aashish Pandey, Tumor Skin Uncertain Behavior (Primary Dx); Dermatology in [place] Chamorro Keratosis [place], [place] [address] [place] [phone] Social History Tobacco Use Types Packs/Day Years [...] you attend rastafarian or Patient refused 2021 gnosticism services? 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 Hare. He also has a history of multiple squamous cell carcinomas involving his left cheek, right infraorbital area, left eyebrow, and right nasal dorsum all treated with Mohs surgery at [facility] on 10/27/17. The largest of his squamous cell carcinomas involving his left cheek was initially treated with CO2 laser in [place] and then Mohs surgery thereafter. MEDICAL HISTORY 1. 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 Hare??at [facility] on 10/27/17 2. Squamous cell carcinoma [...] a total of 27 lesion(s) with two 88-60-hibmaq freeze-thaw cycles of liquid nitrogen cryoth erapy. [...] status post Mohs surgery by Dr. Hare??at [facility] on 10/27/17 ?? No evidence for [...] Waller M.D. [address] [place] [address] (Wo rk) Scheduled Orders Name Type Priority Associated Diagnoses Order S chedule Dermatology misc minor Dermatology Routine Tumor Skin Uncerta in Expected: procedure Behavior 05/25/2019 (Approximate), Expires: 2021 documented as of this encounter Visit Diagnoses Diagnosis Tumor Skin Uncertain Behavior - Primary Keratosis Actinic documented in this encounter
--- OUTSIDE RECORDS SUMMARY | 2022-09-02 13:21 | XMS_ITS | Encounter Summary ---
:[address] [facility] Address [address] [place] [address] Care Team Providers Name Role Phone Unavailable Primary Care Provider Unavailable Encounter Details Date Type Department Care Team Description 10/27/2017 Hospital Encounter HX RST DERM SURG OP [facility] Ra yandel Hare M.D. [address] [place] [phone] (Wo rk) Social History Tobacco Use Types [...] you attend islam or Patient refused 2021 scientology services? 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 Pulse 71 10/27/2017 8:00 AM MINIATURE SET DESIGNER Vital sign result from Clinical Notes. Temperature [...] M.D. [address] [place], [place] [phone] (Wo rk) documented as of this encounter Visit Diagnoses Not on filedocumented in this encounter
--- OUTSIDE RECORDS SUMMARY | 2022-09-02 13:21 | XMS_ITS | Encounter Summary ---
:1935 Author Organization [facility] Address [address] [place] [address] Care Team Providers Name Role Phone Unavailable Primary Care Provider Unavailable Reason for Visit Appointment Request (Routine) - Closed Specialty Diagnoses / Procedures Referred By Contact Refer red To Contact Procedures Aashish Pandey M.D. [facility] 1-[address] [place] [phone] Referral ID Status Reason Start Date Expiration Date Visits Requ ested Visits Authorized [id number] Closed 07/12/2019 07/11/2020 1 Encounter Details Date Type Department Care Team Description 07/27/2019 Procedure visit Department of Khadar Juarez, Keratosi s Actinic (Primary Dx); Dermatology in M.D. Malignant Neoplasm Of Face Squamous Cell [place], [place] [address] [facility] [address] [place] [phone] [phone] Social History Tobacco Use Types Packs/Day Years [...] you attend methodist or Patient refused 2021 restorationism services? 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 Juarez Car Carder: Dr. 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 [address] [place] [phone] (Wo rk) documented as of this encounter Visit Diagnoses Diagnosis Keratosis Actinic - Primary Malignant Neoplasm Of Face Squamous Cell documented in this encounter Administered Medications Inactive Administered Medications - up to 3 most recent administrations Medication Order MAR Action Action Date Dose Rate Site [id number] Given 07/27/2019 9:35 AM CDT 2 mL [...]
--- OUTSIDE RECORDS SUMMARY | 2022-09-02 13:21 | XMS_ITS | Encounter Summary ---
:1935 Author Organization [facility] Address [address] [place] [address] Care Team Providers Name Role Phone Unavailable [...] you attend cheondoism or Patient refused 2021 holiness services? Do [...] at Date Recorded Male 09/10/2018 8:[address] FOREMAN documented as of this encounter Plan of Treatment Upcoming Encounters Date Type Specialty Care Team Description 09/03/2022 Telemedicine Urology Albert Waller M.D. [address] [place], [place] [phone] (Wo rk) documented as of this encounter Procedures Procedure Name Priority Date/Time Associated Comments Diagnosis DERMATOLOGY IMAGE Routine 10/27/2017 12:25 Result s for this EXAM PM GENERAL ROAD FOREMAN procedure are i n the results section. documented in this encounter Results DERMATOLOGY IMAGE EXAM (10/27/2017 12:[address] FOREMAN) Specimen (Source) Anatomical Location Collection Method / Collectio n Time Received Time / Laterality Volume Narrative IIMS - 10/27/2017 4:[address] FOREMAN This order has been created and auto-finalized [...]
--- OUTSIDE RECORDS SUMMARY | 2022-09-02 13:21 | XMS_ITS | Encounter Summary ---
:1935 Author Organization [facility] Address [address] [place] [address] Care Team Providers Name Role Phone Unavailable Primary Care Provider Unavailable Reason for Visit Reason Onset Date Comments biopsy results 06/07/2019 Encounter Details Date Type Department Care Team Description 06/07/2019 Clinical Communication Department of Becky Trinidad biopsy results Medicine, Franck Newby M.D. [facility], in [address] [place] [phone] [place] [address] [place], [place] (Work) [phone] Social History Tobacco Use [...] you attend druze or Patient refused 2021 oriental orthodox services? 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 Please call her at [phone] documented in this encounter Plan of Treatment Upcoming Encounters Date Type Specialty Care Team Description 09/03/2022 Telemedicine Urology Albert Waller M.D. [address] [place] [phone] (Wo rk) documented as of this encounter Visit Diagnoses Not on filedocumented in this encounter
--- OUTSIDE RECORDS SUMMARY | 2022-09-02 13:21 | XMS_ITS | Encounter Summary ---
:1935 Author Organization [facility] Address [address] [place] [address] Care Team Providers Name Role Phone Unavailable Primary Care Provider Unavailable Encounter Details Date Type Department Care Team Description 06/07/2019 Orders Only Department of Aashish Pandey, [place] (Primary Dermatology in [place]am[place] ) [address] [phone] [phone] Social History Tobacco Use Types Packs/Day Years [...] you attend alevism or Patient refused 2021 religion services? 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 [address] [place] [phone] (Wo rk) Scheduled Orders Name Type Priority Associated Diagnoses Order S chedule Dermatology misc minor Dermatology Routine Lesion Skin Expec kathleen: 06/29/2019 procedure (Approximate), Expires: 2021 documented as of this encounter Visit Diagnoses Diagnosis Lesion Skin - Primary documented in this encounter
--- OUTSIDE RECORDS SUMMARY | 2022-09-02 13:21 | XMS_ITS | Encounter Summary ---
:1935 Author Organization [facility] Address [address] [place] [address] Care Team Providers Name Role Phone Unavailable Primary Care Provider Unavailable Reason for Referral Outpatient (Routine) - Closed Specialty Diagnoses / Procedures Referred By Contact Refer red To Contact Dermatology Aashish Pandey M.D . [facility] [address] [place] [phone] Referral ID Status Reason Start Date Expiration Date Visits Requ ested Visits Authorized [id number] Closed 02/16/2019 02/16/2020 1 1 Reason for Visit Reason Comments Follow-up AK's on face and arms Outpatient (Routine) - Closed Specialty Diagnoses / Procedures Referred By Contact Refer red To Contact Dermatology Aashish Pandey M.D . [address] [phone] Referral ID Status Reason Start Date Expiration Date Visits Requ ested Visits Authorized [id number] Closed 11/24/2018 11/24/2019 1 1 Encounter Details Date Type Department Care Team Description 02/16/2019 Office Visit Department of Aashish Pandey, Cancer [place] Squamous Cell Personal History (Primary Dx); Dermatology in [place]am[place] Keratosis [address] [phone] [phone] Social History Tobacco Use Types Packs/Day Years [...] you attend buddhist or Patient refused 2021 presybeterian services? Do you belong to any clubs or No 05/17/2022 organizations such as buddhist groups, unions, fraStukent or athletic groups, or school groups? 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 Hare. He also has a history of multiple squamous cell carcinomas involving his left cheek, right infraorbital area, left eyebrow, and right nasal dorsum all treated with Mohs surgery at [facility] on 10/27/17. The largest of his squamous cell carcinomas involving his left cheek was initially treated with CO2 laser in [place] and then Mohs surgery thereafter. PAST MEDICAL HISTORY 1. 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 Hare at [facility] on 10/27/17 2. Squamous cell [...] this could represent an actinic keratosis or machine pecan picker's papule. I recommend treatment with liquid [...] a total of 23 lesion(s) with two 62-96-mrdlun freeze-thaw cycles of liquid nitrogen cryoth erapy. [...] post Mohs surgery by Dr. Hare at [facility] on 10/27/17 No evidence for recurrence [...] Albert Waller M.D. [address] [place] [phone] (Wo rk) Scheduled Referrals Name Type Priority Associated Order Schedule Diagnoses Dermatology office Outpatient Referral Routine Ex pected: visit (clinic) 02/16/2019 (Approximate), Expires: 02/16/2022 documented as of this encounter Visit Diagnoses Diagnosis Cancer Skin Squamous Cell Personal Histo ry - Primary Keratosis Actinic documented in this encounter
--- OUTSIDE RECORDS SUMMARY | 2022-09-02 13:21 | XMS_ITS | Encounter Summary ---
:1935 Author Organization [facility] Address [address] [place] [address] Care Team Providers Name Role Phone Unavailable [...] you attend hoahaoism or Patient refused 2021 orthodox services? 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 [address] [place] [phone] (Wo rk) documented as of this [...]
--- OUTSIDE RECORDS SUMMARY | 2022-09-02 13:21 | XMS_ITS | Encounter Summary ---
:1935 Author Organization [facility] Address [address] [place] [address] Care Team Providers Name Role Phone Unavailable [...] you attend faith or Patient refused 2021 taoism services? 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 [address] [place] [phone] (Wo rk) documented as of this encounter Procedures Procedure Name Priority Date/Time Associated Comments Diagnosis DERMATOLOGY IMAGE Routine 10/27/2017 12:05 Result s for this EXAM PM TOOL DISTRIBUTOR procedure are i n the results section. documented in this encounter Results DERMATOLOGY IMAGE EXAM (10/27/2017 12:05 PM TOOL DISTRIBUTOR) Specimen (Source) Anatomical Location Collection Method / Collectio n Time Received Time / Laterality Volume Narrative IIMS - 10/27/2017 4:43 PM TOOL DISTRIBUTOR This order has been created and auto-finalized [...]
--- OUTSIDE RECORDS SUMMARY | 2022-09-02 13:21 | XMS_ITS | Encounter Summary ---
:1935 Author Organization [facility] Address [address] [place] [address] Care Team Providers Name Role Phone Unavailable Primary Care Provider Unavailable Encounter Details Date Type Department Care Team Description 12/10/2017 Hospital Encounter HX RST DERM SURG OP [facility] Ra yandel Hare M.D. [address] [place] [phone] (Wo rk) Social History Tobacco Use Types [...] you attend yarsanism or Patient refused 2021 advent services? 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 Pulse 66 12/10/2017 1:15 PM SINGLE PASS SOIL STABILIZER OPERATOR Vital sign result from Clinical Notes. Temperature [...] M.D. [address] [place], [place] [phone] (Wo rk) documented as of this encounter Visit Diagnoses Not on filedocumented in this encounter
--- OUTSIDE RECORDS SUMMARY | 2022-09-02 13:21 | XMS_ITS | Encounter Summary ---
:1935 Author Organization [facility] Address [address] [place] [address] Care Team Providers Name Role Phone Unavailable Primary Care Provider Unavailable Encounter Details Date Type Department Care Team Description 05/24/2015 Hospital Encounter HX RST DERM SURG OP [facility] Ra yandel Hare M.D. [address] [place] [phone] (Wo rk) Social History Tobacco Use Types [...] you attend temple or Patient refused 2021 mosque services? 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 [address] [place] [phone] (Wo rk) documented as of this encounter Visit Diagnoses Not on filedocumented in this encounter
--- OUTSIDE RECORDS SUMMARY | 2022-09-02 13:21 | XMS_ITS | Encounter Summary ---
:1935 Author Organization [facility] Address [address] [place] [address] Care Team Providers Name Role Phone Unavailable [...] you attend judaism or Patient refused 2021 holiness services? 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 [address] [place] [phone] (Wo rk) documented as of this encounter Procedures Procedure Name Priority Date/Time Associated Comments Diagnosis DERMATOLOGY IMAGE Routine 12/10/2017 12:00 Result s for this EXAM PM POLE CLASSIFIER procedure are i n the results section. documented in this encounter Results DERMATOLOGY IMAGE EXAM (12/10/2017 12:00 PM POLE CLASSIFIER) Specimen (Source) Anatomical Collection Method Collection Time Re ceived Time Location / / Volume Laterality 12/10/2017 12:00 PM POLE CLASSIFIER Narrative IIMS - 12/10/2017 3:55 PM POLE CLASSIFIER This order has been created and auto-finalized [...]
--- OUTSIDE RECORDS SUMMARY | 2022-09-02 13:25 | XMS_ITS | Encounter Summary ---
:1935 Author Organization [facility] Address [address] [place] [address] Care Team Providers Name Role Phone Unavailable Primary Care Provider Unavailable Reason for Visit Reason Onset Date Comments Refill 02/13/2011 Encounter Details Date Type Department Care Team Description 02/13/2011 Refill [facility] Bryon Villatoro MD Refill [facility] [address] [facility] [address] [facility] [place] [address] [place], [place] [id number] [phone] Social History Tobacco Use Types Packs/Day Years Used Date Smoking Tobacco: Never Assessed Sex Assigned at Date Recorded Not on file documented as of this encounter Plan of Treatment Not on filedocumented as of this encounter Visit Diagnoses Not on filedocumented in this encounter
--- OUTSIDE RECORDS SUMMARY | 2022-09-02 13:25 | XMS_ITS | Encounter Summary ---
:1935 Author Organization [facility] Address [address], [place] [address] Care Team Providers Name Role Phone Yamila English MD Primary Care Provider Reason for Visit Procedure/Equipment (Routine) - Incomplete Specialty Diagnoses / Procedures Referred By Contact Refer red To Contact Diagnoses Pain of right hip joint Right knee pain, unspecified chronicity Bryon Richardson MD Procedures XR Pelvis W Rt Lateral Hip [address] [facility] [address] [place] [address] Referral ID Status Reason Start Date Expiration Date Visits V isits Requested Authorized [id number] Incomplete 05/02/2019 07/31/2020 1 1 Encounter Details Date Type Department Care Team Description 05/02/2019 Ancillary [facility] Bryon Richardson, Pain of right hip joint; Procedure [address] Right knee pain, unspecified chronicity Drive [address] [facility] [place] [address] [phone] Social History Tobacco Use Types Packs/Day Years [...] chronicity documented in this encounter Care Teams Hand Laminator Relationship Specialty Start Date End Date Yamila English MD PCP - General 10/11/[address] [place] [address] documented as of this encounter
--- OUTSIDE RECORDS SUMMARY | 2022-09-02 13:25 | XMS_ITS | Encounter Summary ---
:1935 Author Organization [facility] Address [address] [place] [address] Care Team Providers Name Role Phone Yaneth English MD Primary Care Provider Reason for Visit Reason Comments INJURY, HIP Back Pain INJURY, KNEE Encounter Details Date Type Department Care Team Description 10/11/2013 Office Visit [facility] David Francisco, Emeka finn joint disease of knee (Primary Dx); Urgent Care MD Knee pain [address] [place] [address] [place] [address] [phone] (Wo rk) Social History Tobacco Use Types Packs/Day Years Used Date Smoking Tobacco: Never Assessed Sex Assigned at Date Recorded Not on file documented as of this encounter Last Filed Vital Signs Vital Sign Reading Time Taken Comments Blood Pressure 120/86 10/11/2013 11:23 AM SMOKE TESTER Pulse - - Temperature 37.1 ??C (98.8 ??F) 10/11/2013 11:23 AM SMOKE TESTER Respiratory Rate - - Oxygen Saturation - - Inhaled Oxygen Concentration - - Weight 93.9 kg (207 lb) 10/11/2013 11:23 AM SMOKE TESTER Height 168.9 cm (5' 6.5) 10/11/2013 11:23 AM SMOKE TESTER Body Mass Index 32.91 10/11/2013 11:23 AM SMOKE TESTER documented in this encounter Patient Instructions Patient InstructionsLiberty Cedeño - 10/11/2013 1:[address] David Francisco MD Sports & Orthopaedic Medicine [facility] Electric Meter Repairer Helper: Colette Loges Please fax all paperwork correspondence to [phone] [facility] Nurse Line: [phone] Please contact [facility] Nurse line for all requests and questions. Please contact your Pharmacy for all medication refill requests E TESTER documented in this encounter Progress Notes David Francisco MD - 10/11/2013 9:46 PM CST Progress Notes signed by David Francisco MD at 10/14/132013 Author: David Francisco MD Service: (none) Author Type: Physician Filed: 10/14/132013 Note Time: 10/12/13828 Status: Signed Customs Patrol Officer: David Francisco MD (Physician) NAME: BLAKE SUTTON MR#: [id number] CSN: [id number] AUTHENTICATING CLINICIAN: David Francisco MD CONFIRM #: [...] understanding. CWM:URIEL C: R:10/11/13 21:57 CONFIRM#:228 E TESTER documented in this encounter Plan of Treatment Not on filedocumented as of this encounter Visit Diagnoses Diagnosis Degenerative joint disease of knee - Idalia yaneth Osteoarthrosis, unspecified whether gene ralized or localized, lower leg Knee pain Pain in joint, lower leg documented in this encounter Care Teams Campaign Advisor Relationship Specialty Start Date End Date Yaneth English MD PCP - General 10/11/[address] [place] [address] documented as of this encounter
--- OUTSIDE RECORDS SUMMARY | 2022-09-02 13:25 | XMS_ITS | Encounter Summary ---
:1935 Author Organization [facility] Address [address], [place] [address] Care Team Providers Name Role Phone Yamila English MD Primary Care Provider Encounter Details Date Type Department Care Team Description 10/11/2013 Imaging [facility] Knee pain [address] [place], [place] [address] Social History Tobacco Use Types Packs/Day Years Used Date Smoking Tobacco: Never Assessed Sex Assigned at Date Recorded Not on file documented as of this encounter Plan of Treatment Not on filedocumented as of this encounter Procedures Procedure Name Priority Date/Time Associated Comments Diagnosis XR KNEE LT 1-2 VIEWS Routine 10/11/2013 12:05 PM Knee pain Results for this COMPARISON MEDICAL DELIVERY TECHNICIAN procedure are i n the results section. XR KNEE RT 3 VIEWS Routine 10/11/2013 12:05 PM Knee pain Re sults for this MEDICAL DELIVERY TECHNICIAN procedure are i n the results section. documented in this encounter Results XR Knee Lt 1-2 Views Comparison (10/11/2013 12:05 PM MEDICAL DELIVERY TECHNICIAN) Anatomical Region Laterality Modality Lower Extremity, Knee Other Specimen (Source) Anatomical Location Collection Method / Collectio n Time Received Time / Laterality Volume Narrative 10/14/2013 8:05 PM MEDICAL DELIVERY TECHNICIAN Three views of the right knee: [...] Knee Rt 3 Views (10/11/2013 12:05 PM MEDICAL DELIVERY TECHNICIAN) Anatomical Region Laterality Modality Lower Extremity, Knee Other Specimen (Source) Anatomical Location Collection Method / Collectio n Time Received Time / Laterality Volume Narrative 10/14/2013 8:05 PM MEDICAL DELIVERY TECHNICIAN Three views of the right knee: [...] leg documented in this encounter Care Teams Sludge Control Operator Relationship Specialty Start Date End Date Yamila Enlgish MD PCP - General 10/11/[address] [place] [address] documented as of this encounter
--- OUTSIDE RECORDS SUMMARY | 2022-09-02 13:25 | XMS_ITS | Clinical Summary ---
:1935 Author Organization [facility] Address [address], [place] [address] Care Team Providers Name Role Phone Yamila [...] for each transition of care or referral. [employer] Allergies Active Allergy Reactions Severity Noted [...] Address T ype Group Dates MEDICARE MEDICARE [id number] 2012-Prese Med icare nt MISC [place] [facility] [id number] 2012-K [employer] [place] [address] Care Teams Billiard Table Repairer Relationship Specialty Start Date End Date Yamila English MD PCP - General 10/11/[address] [place] [address]
--- OUTSIDE RECORDS SUMMARY | 2022-09-02 13:25 | XMS_ITS | Clinical Summary ---
:1935 Author Organization [facility] [place] [address] Care Team Providers Name Role Phone Slava [...] Encounters Date Type Specialty Care Team Description 09/01/2022 Refill Luis Miguel Lanier MD Refill Request (Amlodipine) 08/23/2022 Office Visit Patti Zaman MD CV Gene ral Cardiology Est (Hospital F/U / Congestive Heart Failure ( HCC)?? /Bradycardia Si nus//PCP: Slava Edwards MD) 08/23/2022 Travel 08/19/2022 Orders Only Scanner <No scans attac hed> 08/02/2022 Orders Only Scanner <No scans attac hed> from Last 3 Months Social History Tobacco [...] day) for age 18+ 08/23/2023 08/23/20 22 Procedures Procedure Name Priority Date/Time Associated Diagnosis Comme nts SCAN-LABORATORY 08/19/2022 12:00 AM Resul ts for this REPORT CDT procedure are i n the results section. SCAN-EVENT MONITOR 08/02/2022 12:00 AM Re sults for this CDT procedure are i n the results section. from Last 3 Months Results SCAN-LABORATORY REPORT (08/19/2022 12:00 AM CDT) Narrative This result has an attachment that is no t available. Scanner OTHER SCAN-EVENT MONITOR (08/02/2022 12:00 AM CDT) Narrative This result has an attachment that is no t available. Scanner OTHER from Last 3 Months Insurance Payer Benefit Plan / Subscriber ID Effective Dates Phone Addre ss Type Group MEDICARE PART B MEDICARE PART B [id number] 2002-Present ATTN: CLAIMS - HB USE ONLY HB ONLY [address] [place] [address] MEDICARE - PB MEDICARE PB [id number] 2002-Present ATT N: CLAIMS USE ONLY ONLY [address] [place] [address] [employer] [id number] 2015-Presen [address] [place] [address] Advance Directives Documents on File Type Date Recorded Patient Janitor And Cleaner Explanati on Healthcare Directive 08/02/2021 08/02/2021 Latest Code Status on File Code Status Date Activated Date Inactivated Comments Full Code 01/08/2022 11:08 AM 01/08/2022 6:14 PM Code Status Discussion: Reviewed Preferences Care Teams Coating Operator Relationship Specialty Start Date End Date Slava Edwards MD PCP - General Family Practice 12/12/[address] [place] [address]
--- OUTSIDE RECORDS SUMMARY | 2022-09-02 13:25 | XMS_ITS | Encounter Summary ---
:1935 [facility] Address [address] [address] Care Team Providers Name Role Phone Yamila English MD Primary Care Provider Reason for Referral Procedure/Equipment (Routine) - Incomplete Specialty Diagnoses / Procedures Referred By Contact Refer red To Contact Diagnoses Pain of right hip joint Right knee pain, unspecified chronicity Bryon Richardson MD Procedures XR Pelvis W Rt Lateral Hip [address] [place], [place] [address] Referral ID Status Reason Start Date Expiration Date Visits V isits Requested Authorized [id number] Incomplete 05/02/2019 07/31/2020 1 1 Procedure/Equipment (Routine) - Incomplete Specialty Diagnoses / Procedures Referred By Contact Refer red To Contact Diagnoses Pain of right hip joint Right knee pain, unspecified chronicity Bryon Richardson MD Procedures XR Knee Lt 1-2 Views Comparison [address] [place] [address] Referral ID Status Reason Start Date Expiration Date Visits V isits Requested Authorized [id number] Incomplete 05/02/2019 07/31/2020 1 1 Procedure/Equipment (Routine) - Incomplete Specialty Diagnoses / Procedures Referred By Contact Refer red To Contact Diagnoses Pain of right hip joint Right knee pain, unspecified chronicity Bryon Richardson MD Procedures XR Knee Rt 3 Views [address] [facility] [place] [address] Referral ID Status Reason Start Date Expiration Date Visits V isits Requested Authorized [id number] Incomplete 05/02/2019 07/31/2020 1 1 Reason for Visit Reason Comments Knee Pain or Injury right Encounter Details Date Type Department Care Team Description 05/02/2019 Office Visit [facility] Bryon Richardson, Low [place] k pain radiating to right leg (Primary Dx); Urgent Care MD Pain of right hip joint; [address] [facility] [address] Right knee pain, unspecified chronicity; [place], [place] [address] [place], [place] Posterior right knee pain; [phone] Hip injury, right, initial encounter [phone] (Wo rk) Social History Tobacco Use Types [...] for all medical requests and questions at [phone] MRI Scheduling: To schedule an MRI at [facility] please call [phone] Paperwork Requests: Questions regarding FMLA or disability paperwork please call [phone] Phone lines are answered 8AM to 5PM Friday - Friday Workers??? Compensation: Please contact our department for any Work Comp concerns at Email: [email or web address] Right osteo arthritis knee Make appointment for injection in may Right lumbar radiculopathy Call back for MRI documented in this encounter Progress Notes Bryon Richardson MD - 05/02/2019 12:00 PM CDT NAME: BLAKE SUTTON MR#: [id number] CSN: [id number] AUTHENTICATING CLINICIAN: Bryon Richardson MD CONFIRM #: [...] compartment degenerative changes with joint space narrowing, rjgg-zk-lcsp articulation and osteophyte formation, similar. Mild joint [...] artment degenerative change with joint space narrowing, yrbj-ue-fxdd articulation and osteophyte formation, similar. Mild joint [...] artment degenerative change with joint space narrowing, dwld-oo-ndbf articulation and osteophyte formation, similar. Mild joint [...] artment degenerative change with joint space narrowing, idke-oe-nxhi articulation and osteophyte formation, similar. Mild joint [...] artment degenerative change with joint space narrowing, rpys-ez-zfxa articulation and osteophyte formation, similar. Mild joint [...] chronicity documented in this encounter Care Teams Supervisor Line Department Relationship Specialty Start Date End Date Yamila English MD PCP - General 10/11/[address] [place], [place] [phone] documented as of this encounter
--- OUTSIDE RECORDS SUMMARY | 2022-09-02 13:25 | XMS_ITS | Encounter Summary ---
:1935 Author Organization [facility] Address [address], [place] [address] Care Team Providers Name Role Phone Yamila English MD Primary Care Provider Reason for Visit Procedure/Equipment (Routine) - Incomplete Specialty Diagnoses / Procedures Referred By Contact Refer red To Contact Diagnoses Pain of right hip joint Right knee pain, unspecified chronicity Bryon Richardson MD Procedures XR Knee Rt [address] [facility] [facility] [address] [place] [address] Referral ID Status Reason Start Date Expiration Date Visits V isits Requested Authorized [id number] Incomplete 05/02/2019 07/31/2020 1 1 Encounter Details Date Type Department Care Team Description 05/02/2019 Ancillary [facility] Bryon Richardson, Pain of right hip joint; Procedure [address] Right knee pain, unspecified chronicity Drive [address] [facility] [address] [address] [phone] Social History Tobacco Use Types Packs/Day Years [...] artment degenerative change with joint space narrowing, isob-dj-blug articulation and osteophyte formation, similar. Mild joint [...] artment degenerative change with joint space narrowing, pvbc-dj-prho articulation and osteophyte formation, similar. Mild joint [...] artment degenerative change with joint space narrowing, zxdc-il-heug articulation and osteophyte formation, similar. Mild joint [...] artment degenerative change with joint space narrowing, tuwe-um-jnno articulation and osteophyte formation, similar. Mild joint [...] chronicity documented in this encounter Care Teams Curriculum And Assessment Director Relationship Specialty Start Date End Date Yamila English MD PCP - General 10/11/[address] [place] [id number] documented as of this encounter
== END 2022-08-01 16:13 | disposition home or self-care (01) ==
LOC: AMB 09-02 13:13
PROVIDERS: PCP Family Medicine; Visit Provider Family Medicine
DX: I49.9 Cardiac arrhythmia, unspecified (principal); R00.1 Bradycardia, unspecified
CPT/HCPCS: A0425; A0426

== ENCOUNTER 2022-08-09 13:35 | Outpatient (CLI) | payer MEDICARE, OTHER, SELFPAY ==
--- OUTSIDE RECORDS SUMMARY | 2022-08-09 13:38 | XMS_ITS | Clinical Summary ---
:1935 Author Organization [facility] Address [address] [place] [id number] Care Team Providers Name Role Phone Elsewhere, Pcp Primary Care Provider Unavailable Source Comments Patient records contain information from all sites at [facility]. For routine questions regarding patient records, call [phone] during business hours, M-F 8:00 AM - 5:00 PM Central Time. Record requests for emergency care only can be directed to [phone] at any time.[facility] Allergies Active Allergy Reactions Severity Noted Date Comments Beta-Blockers Other (see comments) 12/27/2021 Bradyc ardia (Beta-Adrenergic Blocking Agts) Penicillins Anaphylaxis, Other (see High 05/24/2015 comments) Medications Medication Sig Dispensed Refills Start End Date Status Date aspirin [address] Take 1 tablet 0 Active tablet by mouth 6 daily. hydroxyurea (HYDREA) Take 3-4 capsules by mouth daily. 1500 mg on - 0 Active 500 mg capsule 2000 mg on Fri-Fri 8 omeprazole Take 1 0 Active (PriLOSEC) 20 mg capsule by 6 capsule mouth daily. glipiZIDE (GLUCOTROL Take 10 mg by 0 Active XL) 10 mg 24 hr mouth daily tablet with breakfast. cholecalciferol Take 50 mcg 0 Ac tive (VITAMIN D3) 50 mcg by mouth (2,000 Unit) tablet daily. amLODIPine (NORVASC) Take 2.5 mg 0 Active 2.5 mg tablet by mouth daily. nitroglycerin Place 0.4 mg 0 Act giles (NITROSTAT) 0.4 mg under the SL tablet tongue every 5 (five) minutes as needed for chest pain. buPROPion XL Take 300 mg 0 Activ e (WELLBUTRIN XL) 300 by mouth mg 24 hr tablet daily. trospium (SANCTURA) Take 1 tablet 30 tablet 0 Active 20 mg tablet (20 mg total) 2 by mouth 2 (two) times a day as needed (bladder spasms). tamsulosin (FLOMAX) Take 1 90 capsule 3 Active 0.4 mg 24 hr capsule capsule (0.4 2 mg total) by mouth daily. finasteride Take 1 tablet 90 tablet 3 Acti ve (PROSCAR) 5 mg (5 mg total) 2 tablet by mouth daily. levothyroxine Take 1 tablet 30 tablet 3 08/02/20 Ac tive (SYNTHROID, (125 mcg 2 23 LEVOTHROID) 125 mcg total) by tablet mouth every morning before breakfast. torsemide (DEMADEX) Take 1 tablet 30 tablet 3 Active 20 mg tablet (20 mg total) 2 23 by mouth daily. methocarbamol TAKE 1 TO 2 3 08/01/20 Disc ontinued (ROBAXIN) 750 mg TABLETS BY 9 22 (E rror) tablet MOUTH EVERY 6 TO 8 HOURS NEEDED FOR MUSCLE SPASM lisinopriL Take 2.5 mg 0 08/01/20 Discont inued (PRINIVIL,ZESTRIL) by mouth 22 ( Error) 2.5 mg tablet daily. furosemide (LASIX) Take 40 mg by 0 0 Discontinued 20 mg tablet mouth 2 (two) 22 (St op Taking at times a day. 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 08/01/2022 Hospital Encounter Kajal Molina Congestiv e Heart Failure (HCC) (Primary Dx); Jade Chiu M.D., Ph.D. Tachycardia; 08/02/2022 [place], [place] Bradycardia Si min Carlson M.D., M.P.H. Brigido Ramos M.B.B.S. 07/02/2022 Hospital Encounter Radiology Gibran Ruvalcaba Malignant Neoplasm Of Bladder (HCC); Ashtyn Gardner Hydronephrosis Beatriz Leblanc M.D. Breiland, [place], M.D. 07/01/2022 Clinical Urology Gibran Ruvalcaba M.D. 06/19/2022 Clinical Urology Gibran Ruvalcaba M.D. 06/14/2022 Procedure visit Gibran Herrera Malignant Ne walt Gardner M.D. Of Bladder (HC C) (Primary Dx) 06/14/2022 Procedure visit Gibran Herrera Malignant Ne walt Gardner M.D. Of Bladder (HC C) 06/14/2022 Comprehensive Visit Gibran Herrera Malignan t Neoplasm Ashtyn Gardner Of Bladder (HC C) (Primary Dx) 06/03/2022 Procedure visit Urology Rosmery, Stricture Ur ethral Postoperative Male (Primary Dx); Armida Dubois APRN, Hydronephrosi s; C.N.P., D.N.P. Malignant Neoplasm Of Bladder (HCC) Lo Sewell APRN, C.N.P., D.N.P. 05/23/2022 Hospital Encounter Radiology Rosmery, Hydroneph rosis Armida Dubois APRN, C.N.P., D.N.P. 05/21/2022 Clinical Urology Ernie, Appointment Communication Bassam Ayala M.D. Cancelled 05/20/2022 Hospital Encounter Radiology Frankie, Malignant Neoplasm Nura A IV, Of Bladder (HC C) Bryon Romo M.D., Ph.D. 05/20/2022 Orders Only Urology Frankie, Malignant Neopl asm Nura A IV, Of Bladder (HC C) Ashtyn (Primary Dx) 05/17/2022 Hospital Encounter Laboratory Medicine Rosmery, Hy dronephrosis; Armida Dubois APRN, Malignant Polo plasm Of Bladder (HCC) C.N.P., D.N.P. 05/17/2022 Hospital Encounter Laboratory Medicine Rosmery, Hy dronephrosis; Armida Dubois APRN, Malignant Polo plasm Of Bladder (HCC) C.N.P., D.N.P. 05/17/2022 Procedure visit Urology Rosmery, Hydronephros is; Armida Dubois APRN, Malignant Polo plasm Of Bladder (HCC); C.N.P., D.N.P. Retention Urinary Lalita Dewitt R.N. 05/17/2022 Office Visit Urology Ernie, Malignant Neopl asm Of Bladder (HCC) (Primary Dx); Bassam Ayala M.D. 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 from Last 3 Months Immunizations Name Administration Dates Next Due Influenza high dose QV(65 years or 08/02/2022 (Deferred: Pat ient Refused - older) (PF) will do outpatient) Social History Tobacco Use Types Packs/Day Years [...] on one Patient refu sed 05/17/2022 occasion? Social Isolation Answer Date Recorded In a typical week, how many times do you More than three alcides es a week 05/17/2022 talk on the phone with family, friends, or neighbors? How often do you get together with friends Three times a wee k 05/17/2022 or relatives? How often do you attend voodoo or Patient refused 2021 denominational services? 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 [address] [place], [place] [phone] (Wo rk) 08/20/2022 Appointment Radiology Claude Loaiza MPAS, P.A.-C. [address] [place], [place] [phone] (Wo rk) 08/22/2022 Virtual Visit Urology Gibran Ruvalcaba M.D. [address] [place], [place] [phone] (Wo rk) Health Maintenance Due Date Last Done Comments Depression Monitoring (PHQ-9) 1935 Diabetic Office Visit with Foot 1935 Exam Dilated Eye Exam 1935 Urine Albumin 1935 Pneumococcal vaccine (65+ years) 1941 (1 - PCV) Zoster Vaccines (1 of 2) 03/30/2014 02/02/2014 DTaP,Tdap,and Td Vaccines (1 - 12/08/2019 12/07/2019 Tdap) COVID-19 Vaccine (3 - Moderna risk 03/09/2021 02/09/2021, 0 01/10/2021 series) Influenza Vaccine (#1) 2022 07/26/2019, 07/20/2018, 07/15/2017, Additional history exists Hemoglobin A1C 01/31/2023 08/02/2022 Office Visit for Blood Pressure 08/01/2023 08/01/2022 Check / Re-check Creatinine Level 08/02/2023 08/02/2022, 08/01/2022, 05/17/2022, Additional history exists Potassium Level 08/02/2023 08/02/2022, 08/01/2022, 02/22/2022, Additional history exists Sodium Level 08/02/2023 08/02/2022, 08/01/2022, 02/22/2022, Additional history exists Thyroid Stimulating Hormone (TSH) 08/02/2023 08/02/2022 test for thyroid function Fall Risk Screen (Annual) Completed 07/02/2022 Procedures Procedure Name Priority Date/Time Associated Diagnosis Comme nts ECG AMBULATORY REAL Routine 08/02/2022 Bradycardia Sinus TIME CARDIAC 12:34 PM CDT MONITORING - HOSPITAL HOOKUP GLUCOSE POCT, B Routine 08/02/2022 8:25 Results f or AM CDT this procedure are in the results section. DX CHEST AP OR PA RAD - Routine 08/02/2022 7:54 Result s for AND LATERAL 2 VIEWS (most inpatients AM CDT this procedure and all are in the outpatients) results section. T3 Routine 08/02/2022 6:07 Results for (TRIIODOTHYRONINE), AM CDT this pro cedure FREE, S are in the results section. T4 (THYROXINE), Routine 08/02/2022 6:07 Results f or FREE, S AM CDT this procedure are in the results section. HC MICROSOMAL AB Timed 08/02/2022 6:07 Results for EA/TPO AM CDT this procedure are in the results section. HC T4 FREE Timed 08/02/2022 6:07 Results for AM CDT this procedure are in the results section. LIPID PANEL, S Timed 08/02/2022 6:07 Results fo r AM CDT this procedure are in the results section. HEMOGLOBIN A1C, B Timed 08/02/2022 6:07 Results for AM CDT this procedure are in the results section. THYROID FUNCTION Timed 08/02/2022 6:07 Results for CASCADE, S AM CDT this procedure are in the results section. TYPE AND SCREEN Timed 08/02/2022 6:07 Results f or AM CDT this procedure are in the results section. CBC WITHOUT Timed 08/02/2022 6:07 Results for DIFFERENTIAL, B AM CDT this procedu re are in the results section. COMPREHENSIVE Timed 08/02/2022 6:07 Results for METABOLIC PANEL, AM CDT this proced ure S/P are in the results section. ECG Routine 08/01/2022 7:54 Results for PM CDT this procedure are in the results section. BASIC METABOLIC Timed 08/01/2022 6:50 Results f or PANEL, S/P PM CDT this procedure are in the results section. NT-PRO B-TYPE Timed 08/01/2022 6:50 Results for NATRIURETIC PEPTIDE PM CDT this pro cedure (BNP), S are in the results section. CBC WITH Timed 08/01/2022 6:50 Results for DIFFERENTIAL, B PM CDT this procedu re are in the results section. ECG Routine 08/01/2022 6:38 Results for PM CDT this procedure are in the results section. ADULT OXYGEN Routine 08/01/2022 6:20 THERAPY PM CDT ADULT OXYGEN Routine 08/01/2022 6:20 THERAPY PM CDT ADULT OXYGEN Routine 08/01/2022 6:20 THERAPY PM CDT OUTSIDE DX CHEST Routine 07/31/2022 Results for 11:55 AM CDT this procedure are in the results section. IR NEPHROSTOMY TUBE RAD - Routine 07/02/2022 8:44 Malignant Neoplas m Results for EXCHANGE LEFT (most inpatients AM CDT Of Bladder (HCC ) this procedure and all Hydronephrosis are in the outpatients) results section. OUTSIDE DX CHEST Routine 06/19/2022 2:30 Results for PM CDT this procedure are in the results section. [place] INJ ANTEGRD Routine 06/14/2022 2:29 Malignant Neoplasm Resu lts for NFROSGRM&/URTGRM PM CDT Of Bladder (HCC) this pr ocedure EXIST are in the results section. URO CYSTOSCOPY Routine 06/14/2022 2:29 Malignant Neoplasm Resu lts for (SPECIFIC PROVIDER) PM CDT Of Bladder (HCC) this procedure are in the results section. URO CYSTOSCOPY Routine 06/03/2022 8:51 Hydronephrosis Results for (GENERAL) AM CDT Malignant Neoplasm this proc edure Of Bladder (HCC) are in the results section. CT UROGRAM WITHOUT RAD - Routine 05/23/2022 8:05 Hydronephrosis Res ults for AND WITH IV (most inpatients AM CDT this proced ure CONTRAST and all are in the outpatients) results section. IR NEPHROSTOMY TUBE RAD - Routine 05/20/2022 Malignant Neoplasm R esults for EXCHANGE LEFT (most inpatients 12:46 PM CDT Of Bladder (HCC) this p rocedure and all are in the outpatients) results section. CREATININE WITH Routine 05/17/2022 3:02 Hydronephrosis Results for EGFR, S/P PM CDT Malignant Neoplasm this proc edure Of Bladder (HCC) are in the results section. from Last 3 Months Results Glucose, POCT (08/02/2022 8:25 AM CDT) Analysis Performed At Patho logist Time Signature Glucose, POCT, 96 70 - 140 08/02/2022 PCLX B mg/dL 8:29 AM CDT Site Capillary 08/02/2022 PCLX 8:29 AM CDT Last Intake NPO 08/02/2022 PCLX 8:29 AM CDT Specimen Anatomical Collection Method Collection Time Receive d Time (Source) Location / / Volume Laterality Blood 08/02/2022 8:25 AM 8:29 CDT AM CDT Unknown Provider LAB POCT ORDERABLES-MANUAL Performing Organization Address City/State/ZIP Code Phon e Number POC [facility] [address] [place] [address] PCLX [facility] [place] [address] [place] [facility] [address] DX Chest AP or PA and Lateral 2 Views (08/02/2022 7:54 AM CDT) Anatomical Region Laterality Modality Chest, Thoracic RST LOS, Thoracic ARZ LOS, Thoracic N/A Digital Radiography FLA LOS Specimen (Source) Anatomical Collection Method Collection Time Re ceived Time Location / / Volume Laterality 08/02/2022 9:12 AM CDT Impressions 08/02/2022 9:18 AM CDT Diffuse interstitial changes of pulmonary edema, increased compared to the prior study with increased atelectasis in the right lung base. Trace right pleural effusion. Moderate cardiomegaly. Atherosclerotic calcificat ion of the intrathoracic aorta with ectasia. No pneumothorax. Mild degenerative changes of the spine and shoulders. Narrative 08/02/2022 9:18 AM CDT EXAM: ??DX CHEST AP OR PA AND LATERAL 2 VIEWS Procedure Note Cori Golden M.D. - 08/02/2022Formatt ing of this note might be different from the original. EXAM: DX CHEST AP OR PA AND LATERAL 2 EWS IMPRESSION: Diffuse interstitial changes of pulmonar y edema, increased compared to the prior study with increased atelectasis in the right lung base. Trace right pleural effusion. Moderate cardiomegaly. Atherosclerotic calcificat ion of the intrathoracic aorta with ectasia. No pneumothorax. Mild degenerative changes of the spine and shoulders. Aram Champion APRN.N.P. IMG DIAGNOSTIC IMAGING P ROCEDURES Thyroperoxidase (TPO) Antibodies, Serum (08/02/2022 6:07 AM CDT) Patholo gist Method Time Signature Thyroperoxidase Ab, <0.3 <9.0 08/02/2022 DTL S IU/mL 9:20 AM CDT Specimen Anatomical Collection Method Collection Time Receive d Time (Source) Location / / Volume Laterality Blood 08/02/2022 6:07 AM 2 6:45 CDT AM CDT Aram Champion APRN.N.P. LAB BLOOD NON ADD-ON Performing Organization Address City/[facility] Phon e Number [facility] - [id number] [place] [address] (ABNORMAL) T4 (Thyroxine), Free, Serum (08/02/2022 6:07 AM CDT) athologist Signature T4 0.7 (L) 0.9 - 1.7 08/02/2022 DTL (Thyroxine), ng/dL 7:37 AM CDT Free, S Specimen Anatomical Collection Method Collection Time Receive d Time (Source) Location / / Volume Laterality Blood 08/02/2022 6:07 AM 2 6:45 CDT AM CDT Marielena Alfaro APRN, Aram.N.P. LAB BLOOD ADD-ON Performing Organization Address City/State/[facility] Phon e Number [facility] - [address] [place], [place] [address] [place] [address] Lipid Panel (08/02/2022 6:07 AM CDT) athologist Signature Triglycerides 41 mg/dL 08/02/2022 DTL 7:17 AM CDT Comment: ----REFERENCE VALUE---- Normal: <150 mg/dL Borderline High: 150-199 mg/dL High: 200-499 mg/dL Very High: > or =500 mg/dL Cholesterol, Total 104 mg/dL 08/02/2022 7:17 AM CD T DTL Comment: ----REFERENCE VALUE---- Desirable: < 200 mg/dL Borderline High: 200 - 239 mg/dL High: > or = 240 mg/dL Cholesterol, LDL, Calculated 53 mg/dL 08/02/2022 7:17 AM CDT DTL Comment: ----REFERENCE VALUE---- Desirable: <100 mg/dL Above Desirable: 100-129 mg/dL Borderline High: 130-159 mg/dL High: 160-189 mg/dL Very High: >=190 mg/dL ----ADDITIONAL INFORMATION---- LDL cholesterol calculated using the Travis/NIH equation. Cholesterol, HDL, S 40 >=40 mg/dL 08/02/2022 7:17 AM CDT DTL Cholesterol, Non-HDL, Calculated 64 mg/dL 7:17 AM CDT DTL Comment: ----REFERENCE VALUE---- Desirable: <130 mg/dL Above Desirable: 130-159 mg/dL Borderline High: 160-189 mg/dL High: 190-219 mg/dL Very High: > or =220 mg/dL Fasting (8 HR or more) [id number] 08/02/2022 6:45 A M CDT DTL Specimen Anatomical Collection Method Collection Time Receive d Time (Source) Location / / Volume Laterality Blood (Blood, 08/02/2022 6:07 AM 08/02/20 6:45 Venous) CDT AM CDT Marielena Alfaro APRN, C.N.P. LAB BLOOD ADD-ON Performing Organization Address City/State/ZIP Code Phon e Number [facility] - [address] [place], [place] [address] [facility] [place] [address] [facility] [address] (ABNORMAL) Thyroid Function [place] (08/02/2022 6:07 AM CDT) P athologist Signature TSH, Sensitive 21.0 (H) 0.3 - 4.2 08/02/2022 DTL mIU/L 7:17 AM CDT Specimen Anatomical Collection Method Collection Time Receive d Time (Source) Location / / Volume Laterality Blood (Blood, 08/02/2022 6:07 AM 08/02/20 6:45 Venous) CDT AM CDT Marielena Alfaro APRN, Aram.N.P. LAB BLOOD ADD-ON Performing Organization Address [facility] Phon e Number [facility] - [address] [place], [place] [phone] [place] [address] (ABNORMAL) CBC without Differential (08/02/2022 6:07 AM CDT) [facility] gist Method Time Signature Hemoglobin 8.1 (L) 13.2 - 08/02/2022 DTL 16.6 g/dL 6:40 AM CDT Hematocrit 28.1 (L) 38.3 - 08/02/2022 DTL 48.6 % 6:40 AM CDT Erythrocytes 2.71 (L) 4.35 - 08/02/2022 DTL 5.65 6:40 AM CDT x10(12)/L MCV 103.7 (H) 78.2 - 08/02/2022 DTL 97.9 fL 6:40 AM CDT RBC Distrib Width 20.2 (H) 11.8 - 08/02/2022 DTL 14.5 % 6:40 AM CDT Platelet Count 379 (H) 135 - 317 08/02/2022 DTL x10(9)/L 6:40 AM CDT Leukocytes 6.5 3.4 - 9.6 08/02/2022 DTL x10(9)/L 6:40 AM CDT Specimen Anatomical Collection Method Collection Time Receive d Time (Source) Location / / Volume Laterality Blood (Blood, 08/02/2022 6:07 AM 08/02/20 22 6:31 Venous) CDT AM CDT Marielena Alfaro APRN, C.N.P. LAB BLOOD ADD-ON Performing Organization Address City/[facility] Code Phon e Number [facility] - [address] [place], [place] [address] [facility] [place] [address] Type and Screen (with reflex Antibody ID) (08/02/2022 6:07 AM CDT) [facility] gist Method Time Signature ABORh A Pos Not 08/02/2022 STRM applicable 6:44 AM CDT Antibody Negative Negative 08/02/2022 STR Screen 6:58 AM CDT Type & Screen 08/05/2022 08/02/2022 STRM Expiration 23:59 6:44 AM CDT Testing [place] DEFAULT 08/02/2022 STRM Location 6:22 AM CDT Specimen Anatomical Collection Method Collection Time Receive d Time (Source) Location / / Volume Laterality Blood (Blood, 08/02/2022 6:07 AM 08/02/20 6:22 Venous) CDT AM CDT Marielena Alfaro APRN, C.N.P. LAB BLOOD BANK TEST ORDE RABLES Performing Organization Address City/[facility] Phon e Number [address] [address] [place] [address] (ABNORMAL) T3 (Triiodothyronine), Free (08/02/2022 6:07 AM CDT) athologist Signature T3 2.2 (L) 2.8 - 4.4 08/02/2022 [facility] (Triiodothyron pg/mL 12:00 PM CDT ine), Free, S Specimen Anatomical Collection Method Collection Time Receive d Time (Source) Location / / Volume Laterality Blood (Blood, 08/02/2022 6:07 AM 08/02/20 Venous) CDT 11:03 AM CDT Marielena Alfaro APRN, C.N.P. LAB BLOOD ADD-ON Performing Organization Address City/[facility]/ZIP [facility] Phon e Number [facility] [address] [place], [place] [address] [facility] [place] [address] [facility] [address] [place] (ABNORMAL) T4 (Thyroxine), Free (08/02/2022 6:07 AM CDT) athologist Signature T4 0.7 (L) 0.9 - 1.7 08/02/2022 DTL (Thyroxine), ng/dL 10:04 AM CDT Free, S Specimen Anatomical Collection Method Collection Time Receive d Time (Source) Location / / Volume Laterality Blood (Blood, 08/02/2022 6:07 AM 08/02/20 8:22 Venous) CDT AM CDT Aram Champion APRN.N.P. LAB BLOOD ADD-ON Performing Organization Address [facility] Phon e Number [facility] - [address] [place] [address] (ABNORMAL) Hemoglobin A1c (08/02/2022 6:07 AM CDT) P athologist Signature Hemoglobin A1c, 6.3 (H) 4.0 - 5.6 08/02/2022 DTL B % 7:07 AM CDT Comment: Hemoglobin A1c values of 5.7-6.4 percent indicate an increased risk for developing diabetes m ellitus. In diabetic patients, HbA1c goals should be discussed with healthcare provider. Specimen Anatomical Collection Method Collection Time Receive d Time (Source) Location / / Volume Laterality Blood (Blood, 08/02/2022 6:07 AM 08/02/20 6:31 Venous) CDT AM CDT Marielena lAfaro APRN, Aram.N.P. LAB BLOOD ADD-ON Performing Organization Address City/[facility] Phon e Number [facility] - [address] (ABNORMAL) Comprehensive Metabolic Panel (08/02/2022 6:07 AM CDT) Analysis Performed At Patho logist Time Signature Potassium, S 4.5 3.6 - 5.2 08/02/2022 DTL mmol/L 7:17 AM CDT Sodium, S 142 135 - 145 08/02/2022 DTL mmol/L 7:17 AM CDT Chloride, S 104 98 - 107 08/02/2022 DTL mmol/L 7:17 AM CDT Bicarbonate, S 29 22 - 29 08/02/2022 DTL mmol/L 7:17 AM CDT Anion Gap 9 7 - 15 08/02/2022 DTL 7:17 AM CDT BUN (Blood Urea 42 (H) 8 - 24 08/02/2022 DTL Nitrogen), S mg/dL 7:17 AM CDT Creatinine 1.61 (H) 0.74 - 08/02/2022 DTL 1.35 mg/dL 7:17 AM CDT Estimated GFR 42 (L) >=60 08/02/2022 DTL (eGFR) mL/min/BSA 7:17 AM CDT Comment: Estimated GFR calculated using the 2020 CKD_EPI creatinine equation. Calcium, Total, S 8.8 8.8 - 10.2 mg/dL 08/02/2022 7:17 AM CDT DTL Glucose, S 105 70 - 140 mg/dL 08/02/2022 7:17 AM CDT D TL Protein, Total, S 5.7 (L) 6.3 - 7.9 g/dL 08/02/2022 7:17 A M CDT DTL Albumin, S 3.9 3.5 - 5.0 g/dL 08/02/2022 7:17 AM CDT D TL Aspartate Aminotransferase 15 8 - 48 U/L 08/02/2022 7 :17 AM CDT DTL (AST), S Alkaline Phosphatase, S 135 (H) 40 - 129 U/L 08/02/2022 7: 17 AM CDT DTL Alanine Aminotransferase 20 7 - 55 U/L 08/02/2022 7:1 7 AM CDT DTL (ALT), S Bilirubin, Total, S 0.7 <=1.2 mg/dL 08/02/2022 7:17 AM CDT DTL Specimen Anatomical Collection Method Collection Time Receive d Time (Source) Location / / Volume Laterality Blood (Blood, 08/02/2022 6:07 AM 08/02/20 6:45 Venous) CDT AM CDT Marielena Alfaro APRN, C.N.P. LAB BLOOD ADD-ON Performing Organization Address City/State/ZIP Code Phon e Number [facility] - [address] [place], [place] [address] [facility] [place] [address] [facility] [address] ECG 12 Lead (08/01/2022 7:54 PM CDT)Only the most recent of2 resultswithin the time period is included. P athologist Signature Ventricular Rate 75 BPM MUSE ECG/Min [place] Interval 170 ms MUSE QRSD Interval 96 ms MUSE QT Interval 418 ms MUSE QTC Interval 466 ms MUSE P [place] 80 degrees MUSE R [place] -25 degrees MUSE T Wave [place] 100 degrees MUSE Specimen Anatomical Collection Method Collection Time Receive d Time (Source) Location / / Volume Laterality 08/01/2022 7:54 PM 8:02 CDT PM CDT Impressions MUSE - 08/01/2022 8:02 PM CDT Sinus rhythm Premature ventricular complexes in a pat tern of bigeminy Low voltage QRS Nonspecific T wave abnormality When compared with ECG of 01-AUG-2022 18 :38, No significant change was found Reviewed by VENKATESH Ryan Narrative This result has an attachment that is no t available. Procedure Note Rolf Rojas M.D. - 08/01/2022Form atting of this note might be different from the original. IMPRESSION: Sinus rhythm Premature ventricular complexes in a pat tern of bigeminy Low voltage QRS Nonspecific T wave abnormality When compared with ECG of 01-AUG-2022 18 :38, No significant change was found Reviewed by VENKATESH Ryan Marielena Alfaro APRN, C.N.P. ECG ORDERABLES Performing Organization Address City/State/ZIP Code Phon e Number MUSE MUSE NA (ABNORMAL) NT-Pro B-Type Natriuretic Peptide (BNP) (08/01/2022 6:50 PM CDT) athologist Signature NT-Pro BNP 5384 (H) <=540 pg/mL 08/02/2022 DTL 1:45 AM CDT Comment: NT-proBNP values less than 300 pg/mL hav e a 99% negative predictive value for excluding acute con gestive heart failure. A cutoff of 1200 pg/mL for haylee ents with an eGFR<60 yields a diagnostic sensitivity and spec ificity of 89% and 72% for acute congestive heart failure. A diagnostic NT-proBNP cutoff of 1800 pg/mL has been suggested in adults over 75 years of age in the absence of r enal failure. Specimen Anatomical Collection Method Collection Time Receive d Time (Source) Location / / Volume Laterality Blood (Blood, 08/01/2022 6:50 PM 08/01/20 7:28 Venous) CDT PM CDT Yolis Champion APRNNJluisPJluis LAB BLOOD ADD-ON Performing Organization Address City/State/ZIP Code Phon e Number [facility] - [address] [place], [place] [address] [facility] [place] [address] [facility] [address] [facility] (ABNORMAL) CBC with Differential, Blood (08/01/2022 6:50 PM CDT) [facility] Method Time Signature Hemoglobin 8.3 (L) 13.2 - 08/01/2022 DTL 16.6 g/dL 7:23 PM CDT Hematocrit 28.5 (L) 38.3 - 08/01/2022 DTL 48.6 % 7:23 PM CDT Erythrocytes 2.74 (L) 4.35 - 08/01/2022 DTL 5.65 7:23 PM CDT x10(12)/L MCV 104.0 (H) 78.2 - 08/01/2022 DTL 97.9 fL 7:23 PM CDT RBC Distrib Width 20.1 (H) 11.8 - 08/01/2022 DTL 14.5 % 7:23 PM CDT Platelet Count 424 (H) 135 - 317 08/01/2022 DTL x10(9)/L 7:23 PM CDT Leukocytes 6.8 3.4 - 9.6 08/01/2022 DTL x10(9)/L 7:23 PM CDT Neutrophils 6.01 1.56 - 08/01/2022 DTL 6.45 7:23 PM CDT x10(9)/L Lymphocytes 0.30 (L) 0.95 - 08/01/2022 DTL 3.07 7:23 PM CDT x10(9)/L Monocytes 0.32 0.26 - 08/01/2022 DTL 0.81 7:23 PM CDT x10(9)/L Eosinophils 0.13 0.03 - 08/01/2022 DTL 0.48 7:23 PM CDT x10(9)/L Basophils 0.04 0.01 - 08/01/2022 DTL 0.08 7:23 PM CDT x10(9)/L Specimen Anatomical Collection Method Collection Time Receive d Time (Source) Location / / Volume Laterality Blood (Blood, 08/01/2022 6:50 PM 08/01/20 7:17 Venous) CDT PM CDT Yolis Champion APRNNJluisPJluis LAB BLOOD ADD-ON Performing Organization Address City/State/ZIP Code Phon e Number [facility] - [address] [place] [phone] [facility] [place] [address] [facility] 200 [facility] (ABNORMAL) Basic Metabolic Panel (08/01/2022 6:50 PM CDT) Analysis Performed At Patho logist Time Signature Potassium, S 4.9 3.6 - 5.2 08/01/2022 DTL mmol/L 9:32 PM CDT Sodium, S 142 135 - 145 08/01/2022 DTL mmol/L 9:32 PM CDT Chloride, S 102 98 - 107 08/01/2022 DTL mmol/L 9:32 PM CDT Bicarbonate, S 26 22 - 29 08/01/2022 DTL mmol/L 9:32 PM CDT Anion Gap 14 7 - 15 08/01/2022 DTL 9:32 PM CDT BUN (Blood Urea 42 (H) 8 - 24 08/01/2022 DTL Nitrogen), S mg/dL 9:32 PM CDT Creatinine 1.74 (H) 0.74 - 08/01/2022 DTL 1.35 mg/dL 9:32 PM CDT Estimated GFR 38 (L) >=60 08/01/2022 DTL (eGFR) mL/min/BSA 9:32 PM CDT Comment: Estimated GFR calculated using the 2020 CKD_EPI creatinine equation. Calcium, Total, S 8.9 8.8 - 10.2 mg/dL 08/01/2022 9:32 PM CDT DTL Glucose, S 109 70 - 140 mg/dL 08/01/2022 9:32 PM CDT D TL Specimen Anatomical Collection Method Collection Time Receive d Time (Source) Location / / Volume Laterality Blood (Blood, 08/01/2022 6:50 PM 08/01/20 22 7:28 Venous) CDT PM CDT Yolis Champion APRNNRichelle LAB BLOOD ADD-ON Performing Organization Address City/State/ZIP Code Phon e Number [facility] - [address] [place], [place] [address] [facility] [place] [address] [facility] [address] [facility] XR chest 1V portable-Outside Chest Xray (07/31/2022 [...] Provider Not In System IMG DIAGNOSTIC IMAGING PROCE SHAKIR Performing Organization Address City/State/ZIP Code Phon e [...] d raining. TECHNIQUE: Prone positioning. Fluoroscop ic national basketball association scout image demonstrates the likely malpositioning of the [...] Over a torque wire, a new 12 Tongan by 25 cm pigtail catheter was advanced [...] d raining. TECHNIQUE: Prone positioning. Fluoroscop ic national basketball association scout image demonstrates the likely malpositioning of the [...] Over a torque wire, a new 12 Tongan by 25 cm pigtail catheter was advanced [...] by: Claude Loaiza MPAS, P.A.-C. Claude ZELAYA PJluisA.-C. UROLOGY ORDERABLES URO Nephrostogram (06/14/2022 2:29 PM CDT) Specimen (Source) Anatomical Location Collection Method / Collectio n Time Received Time / Laterality Volume Gibran Acharya M.D. - 06/14/2022 2: 50 PM CDT Gibran Ruvalcaba M.D. ? 06/14/2022 ??2:53 PM URO Nephrostogram Date/Time: 06/14/2022 2:50 PM Performed by: Gibran Ruvalcaba M.D. Authorized by: Claude Loaiza MPAS, P.A.-C. Claude ZELAYA P.A.-C. UROLOGY ORDERABLES URO Cystoscopy (general) (06/03/2022 8:51 AM CDT) Specimen (Source) Anatomical Location Collection Method / Collectio n Time Received Time / Laterality Volume Narrative Lo Sewell APRN C.N.P., D.N.P. - 06/03/2022 8:51 AM CDT Lo Sewell APRN, C.N.Ramonita, D.N.P. ? 06/04/2022 ??9:48 AM URO Cystoscopy [...] through the urethra. 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 Unable to transverse cystosco pe related to notable discomfort. Given patient discomfort the procedure w as evacuated. Cystoscope was removed. ??He is currently performing in termittent catheterization with 14 Tongan catheter. IMPRESSION: #[address] [...] 05/17/2022 DTL Black/ mL/min/BSA 4:03 PM CDT [place]se Comment: ----ADDITIONAL INFORMATION---- Estimated GFR calculated using [...] Address City/State/ZIP Code Phon e Number [facility] - [address] [place], [place] [address] [facility] [place] [address] [facility] [address] from Last 3 Months Insurance Payer Benefit Plan / Subscriber ID Effective Phone Address T ype Group Dates MEDICARE MEDICARE A AND [id number] 2002-Prese [id number] [place] [address] [employer] [id number] 2002-Prese [phone] [id number] [place] [address] Advance Directives For more information, please contact: [phone] Latest Code Status on File Code Status Date Activated Date Inactivated Comments DNR/DNI 08/01/2022 7:14 PM 08/02/2022 4:03 PM Code Status History Code Status Date Activated Date Inactivated Comments Full Code 08/01/2022 6:20 PM 08/01/2022 7:14 PM Question Answer Comments Full Code: Discussed DNR/DNI 02/20/2022 1:42 PM 02/22/2022 10:39 PM DNR/DNI 02/20/2022 1:42 PM 02/20/2022 1:42 PM Care Teams Block Making Machine Operator Relationship Specialty Start Date End Date Elsewhere, Pcp PCP - General Internal Medicine 01/14/22
--- OUTSIDE RECORDS SUMMARY | 2022-08-09 13:38 | XMS_ITS | Encounter Summary ---
:1935 Author Organization [facility] Address [address] [place] [address] Care Team Providers Name Role Phone Elsewhere, Pcp Primary Care Provider Unavailable Reason for Referral Outpatient (Routine) - Closed Specialty Diagnoses / Procedures Referred By Contact Refer red To Contact Radiology Diagnoses Malignant Neoplasm Of Bladder (HCC) Hydronephrosis Gibran Ruvalcaba M.D. [facility] Procedures IR Nephrostomy Tube Exchange Left IR Nephrostomy Tube Check Left 200 [place] [address] Referral ID Status Reason Start Date Expiration Date Visits Requ ested Visits Authorized [id number] Closed 07/01/2022 07/01/2023 1 1 Encounter Details Date Type Department Care Team Description 07/01/2022 Clinical Communication Department of Urology Analisa Ruvalcaba in [facility] lonny Gardner M.D. 200 [facility] 200 [place] [phone] Social History Tobacco Use Types Packs/Day Years [...] you attend orthodoxy or Patient refused 2021 spiritism services? Do you belong to any clubs or No 05/17/2022 organizations such as orthodoxy groups, unions, fraCloudtop or athletic groups, or school groups? How [...] or slept in a snf (including now)? Education Answer Date Recorded What is the highest level of school you have completed or 12 th grade 05/17/2022 the highest degree you have received? 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 documented in this encounter Plan of Treatment Upcoming Encounters Date Type Specialty Care Team Description 08/20/2022 Appointment Radiology Claude Loaiza MPAS, P.A.-C. [address] [place] [phone] (Wo rk) 08/20/2022 Appointment Radiology Claude Loaiza MPAS, P.A.-C. [address] [place] [phone] (Wo rk) 08/22/2022 Virtual Visit Urology Gibran Ruvalcaba M.D. [address] [place] [phone] (Wo rk) documented as of [...] d raining. TECHNIQUE: Prone positioning. Fluoroscop ic adon image demonstrates the likely malpositioning of the [...] Over a torque wire, a new 12 Lao by 25 cm pigtail catheter was advanced [...] d raining. TECHNIQUE: Prone positioning. Fluoroscop ic adon image demonstrates the likely malpositioning of the [...] Over a torque wire, a new 12 Lao by 25 cm pigtail catheter was advanced [...] Hydronephrosis documented in this encounter Care Teams Client Strategist Relationship Specialty Start Date End Date Elsewhere, Pcp PCP - General Internal Medicine 01/14/22 documented as of this encounter
--- OUTSIDE RECORDS SUMMARY | 2022-08-09 13:38 | XMS_ITS | Encounter Summary ---
:1935 Author Organization [facility] Address [address] [place] [address] Care Team Providers Name Role Phone Elsewhere, Pcp Primary Care Provider Unavailable Reason for Visit Outpatient (Routine) - Closed Specialty Diagnoses / Procedures Referred By Contact Refer red To Contact Diagnoses Hydronephrosis Malignant Neoplasm Of Bladder (HCC) Armida Botello APRN, [facility] Procedures URO Cystoscopy (general) C.N.P., D.N.P. [address] [place] [phone] Referral ID Status Reason Start Date Expiration Date Visits Requ ested Visits Authorized [id number] Closed 05/17/2022 05/17/2023 1 1 Encounter Details Date Type Department Care Team Description 06/03/2022 Procedure visit Department of Armida Botello APRN, C.N.P., D.N.P. [address] [place] [phone] Stricture Urethral Postoperative Male (P rimary Dx); Urology in Lo Sewell APRN, C.N.P., D.N.P. [address] [place] [phone] Hydronephrosis; [place], [place] Malignant Neoplasm Of Bladde r (HCC) [address] [place] [phone] Social History Tobacco Use Types Packs/Day Years [...] you attend buddhist or Patient refused 2021 mormon services? 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 - 06/03/2022 8:00 AM CDT Patient was seen for a cystoscopy procedure. Cystoscope CYF-VH #[id number] was used during today's cystoscopy procedure. Accessories used: cystoscope reusable (sterilized) stop cock Load number from processing via [employer]: [id number] documented in this encounter Procedure Notes Lo [...] through the urethra.Urethroscopy demonstrated dense #13- #14 Croatian distal penile urethral stricture. Unable to transverse cystoscope related to notable discomfort. Given patient discomfort the procedure was evacuated. Cystoscope was removed. He is currently performing intermittent catheterization with 14 Croatian catheter. IMPRESSION: #1 Distal penile urethral stricture [...] Radiology Claude Loaiza MPAS, P.A.-C. [address] [place] [phone] (Wo rk) 08/20/2022 Appointment Radiology Claude Loaiza MPAS, P.A.-C. [address] [place] [phone] (Wo rk) 08/22/2022 Virtual Visit Urology Gibran Ruvalcaba M.D. [address] [place] [phone] (Wo rk) documented as of [...] through the urethra. 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 Unable to transverse cystosco pe related to notable discomfort. Given patient discomfort the procedure w as evacuated. Cystoscope was removed. ??He is currently performing in termittent catheterization with 14 Croatian catheter. IMPRESSION: #[address] [...] (HCC) documented in this encounter Care Teams Laundry Routeman Relationship Specialty Start Date End Date Elsewhere, Pcp PCP - General Internal Medicine 01/14/22 documented as of this encounter
--- OUTSIDE RECORDS SUMMARY | 2022-08-09 13:38 | XMS_ITS ---
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 Past Plans No past plan information found. Radiation Treatments Plan Last Treated Elapsed Days Fractions Prescribed Prescribed Total On Treated Fraction Dose Dose [id number] 04/19/2022 17 6 of 6 600 cGy 3,600 cGy Reference Point Last Treated On Elapsed Days Session Dose Total Dos e [id number] 04/19/2022 17 600 cGy 3,600 cGy Lifetime Dose Tracking Chemical Lifetime Dose Automatic Entry Manual Entry Radiation 58.28 mGy 58.28 mGy 0 mGy Fluoro Time 3.3 minutes 3.3 minutes 0 minutes DAP (uGy-m2) 625.85 uGy-m2 625.85 uGy-m2 0 uGy-m2
--- OUTSIDE RECORDS SUMMARY | 2022-08-09 13:38 | XMS_ITS | Encounter Summary ---
:1935 Author Organization [facility] Address [address] [place] [address] Care Team Providers Name Role Phone Elsewhere, Pcp Primary Care Provider Unavailable Reason for Referral Outpatient (Routine) - Closed Specialty Diagnoses / Procedures Referred By Contact Refer red To Contact Diagnoses Malignant Neoplasm Of Bladder (HCC) Claude Loaiza MPAS, [facility] Procedures URO Nephrostogram P.A.-C. 200 [place], [place] [address] Referral ID Status Reason Start Date Expiration Date Visits Requ ested Visits Authorized [id number] Closed 06/14/2022 06/14/2023 1 1 utpatient (Routine) - Closed Specialty Diagnoses / Procedures Referred By Contact Refer red To Contact Diagnoses Malignant Neoplasm Of Bladder (HCC) Claude Loaiza MPAS, [facility] Procedures Cystoscopy (specific provider) P.A.-C. 200 [place], [place] [phone] Referral ID Status Reason Start Date Expiration Date Visits Requ ested Visits Authorized [id number] Closed 06/14/2022 06/14/2023 1 1 Reason for Visit Outpatient (Routine) - Closed Specialty Diagnoses / Procedures Referred By Contact Refer red To Contact Urology Armida Botello, EDWARD, C.N.P., [facility] D.N.P. 200 [place] [address] Referral ID Status Reason Start Date Expiration Date Visits Requ ested Visits Authorized [id number] Closed 05/17/2022 05/17/2023 1 1 Encounter Details Date Type Department Care Team Description 06/14/2022 Comprehensive Visit Department of Gibran Ruvalcaba Neoplasm Urology in [place] Gardner Of Bladder ([facility]) [place], [place] 200 [facility] (Primary Dx) 200 [place] [phone] Social History Tobacco Use Types Packs/Day Years [...] you attend buddhism or Patient refused 2021 hinduism services? Do [...] slept in a senior living (including now)? Education Answer Date Recorded What is the highest level of school you have completed or 12 th grade 05/17/2022 the highest degree you have received? 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 Chery, his , and his ohmwyxqk-vn-wgh in clinic today in conjunction with Dr. [...] for the patient today. This includes both edwf-qn-arzy and fvskyut-ys-uzpb time. documented in this encounter Plan of Treatment Upcoming Encounters Date Type Specialty Care Team Description 08/20/2022 Appointment Radiology Claude Loaiza MPAS, P.A.-C. [address] [place] [phone] (Octavio christensen) 08/20/2022 Appointment Radiology Claude Loaiza MPAS, P.A.-C. [address] [place] [phone] (Wo fermin) 08/22/2022 Virtual Visit Urology Gibran Ruvalcaba M.D. [address] [place] [phone] (Wo fermin) documented as of [...] imary documented in this encounter Care Teams Cleaning Associate Relationship Specialty Start Date End Date Elsewhere, Pcp PCP - General Internal Medicine 01/14/22 documented as of this encounter
--- OUTSIDE RECORDS SUMMARY | 2022-08-09 13:38 | XMS_ITS | Encounter Summary ---
:1935 Author Organization [facility] Address [address] [place] [address] Care Team Providers Name Role Phone Elsewhere, Pcp Primary Care Provider Unavailable Encounter Details Date Type Department Care Team Description 06/19/2022 Clinical Communication Department of Urology Analisa Ruvalcaba in [facility] lonny Gardner M.D. 200 [facility] 200 [place] [phone] Social History Tobacco Use Types Packs/Day Years [...] you attend zoroastrianism or Patient refused 2021 zoroastrianism services? Do [...] or slept in a assisted (including now)? Education Answer Date Recorded What is the highest level of school you have completed or 12 th grade 05/17/2022 the highest degree you have received? 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 Would a nurse be able to return a call to them please? Does caller have Auth on file: Ok to respond via portal: No Best Number to be reached at: [phone] Best time of day to call: Pharmacy info if needed: documented in this encounter Plan of Treatment Upcoming Encounters Date Type Specialty Care Team Description 08/20/2022 Appointment Radiology Claude Loaiza MPAS, P.A.-C. [address] [place] [phone] (Octavio christensen) 08/20/2022 Appointment Radiology Claude Loaiza MPAS, P.A.-C. [address] [place] [phone] (Octavio christensen) 08/22/2022 Virtual Visit Urology Gibran Ruvalcaba M.D. [address] [place] [phone] (Wo rk) documented as of this encounter Visit Diagnoses Not on filedocumented in this encounter Care Teams Envelope Fold Operator Relationship Specialty Start Date End Date Elsewhere, Pcp PCP - General Internal Medicine 01/14/22 documented as of this encounter
--- OUTSIDE RECORDS SUMMARY | 2022-08-09 13:38 | XMS_ITS | Encounter Summary ---
:1935 Author Organization [facility] Address [address] [place] [address] Care Team Providers Name Role Phone Elsewhere, Pcp Primary Care Provider Unavailable Encounter Details Date Type Department Care Team Description 08/02/2022 Hospital Encounter Division of Marielena Alfaro Arr ived Cardiovascular Diseases BRIDGE ENGINEER, C. N.P. in [facility] lonny [address] [facility] [address] [place] [phone] Social History Tobacco Use Types Packs/Day Years [...] you attend hinduism or Patient refused 2021 druze services? 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 glipiZIDE (GLUCOTROL XL) Take 10 mg by 0 10 mg 24 hr tablet mouth daily with breakfast. hydroxyurea (HYDREA) 500 Take 3-4 capsules by mouth daily. 1 500 mg on Fri- 0 10/27/2017 mg capsule 2000 mg on Fri-Fri levothyroxine (SYNTHROID, Take 1 tablet (125 30 tablet 3 08/02/2023 LEVOTHROID) 125 mcg tablet mcg total) by mouth every morning before breakfast. nitroglycerin (NITROSTAT) Place 0.4 mg under 0 0.4 mg SL tablet the tongue every 5 (five) minutes as needed for chest pain. omeprazole (PriLOSEC) 20 Take 1 capsule by 0 01/19 mg capsule mouth daily. tamsulosin (FLOMAX) 0.4 mg Take 1 capsule 90 capsule 3 06/14 24 hr capsule (0.4 mg total) by mouth daily. torsemide (DEMADEX) 20 mg Take 1 tablet (20 30 tablet 3 08/02/2023 tablet mg total) by mouth daily. trospium (SANCTURA) 20 mg Take 1 tablet (20 30 tablet 0 03/2022 tablet mg total) by mouth 2 (two) times a day as needed (bladder spasms). documented as of this encounter Plan of Treatment Upcoming Encounters Date Type Specialty Care Team Description 08/20/2022 Appointment Radiology Claude Loaiza MPAS PTarun-CJluis [address] [place] [phone] (Wo rk) 08/20/2022 Appointment Radiology Claude Loaiza MPAS, P.AJluis-CJluis [address] [place] [phone] (Wo rk) 08/22/2022 Virtual Visit Urology Gibran Ruvalcaba M.D. [address] [place] [phone] (Wo rk) Pending Results Name Type Priority Associated Diagnoses Date/Ti id ECG Ambulatory Real Cardiac Services Routine Bradycardia Sinus 08/02/2022 12:34 Time Cardiac PM CDT Monitoring documented as of this encounter Procedures Procedure Name Priority Date/Time Associated Diagnosis Comme nts ECG AMBULATORY REAL TIME Routine 08/02/2022 12:34 PM Bradycard ia Sinus CARDIAC MONITORING - CDT [facility] documented in this encounter Visit Diagnoses Not on filedocumented in this encounter Care Teams Mechanical Design Engineer Facilities Relationship Specialty Start Date End Date Elsewhere, Pcp PCP - General Internal Medicine 01/14/22 documented as of this encounter
--- OUTSIDE RECORDS SUMMARY | 2022-08-09 13:38 | XMS_ITS | Encounter Summary ---
:1935 Author Organization [facility] Address [address] [place] [id number] Care Team Providers Name Role Phone Elsewhere, Pcp Primary Care Provider Unavailable Reason for Visit Outpatient (Routine) - Closed Specialty Diagnoses / Procedures Referred By Contact Refer red To Contact Diagnoses Malignant Neoplasm Of Bladder (HCC) Claude Loaiza, [facility], [facility] Procedures Cystoscopy (specific provider) P.A.-C. [address] [place] [phone] Referral ID Status Reason Start Date Expiration Date Visits Requ ested Visits Authorized [id number] Closed 06/14/2022 06/14/2023 1 1 Encounter Details Date Type Department Care Team Description 06/14/2022 Procedure visit Department of Urology Gibran Ruvalcabaant Neoplasm Of in Jj Batista M.D. Bladder (HCC) [place] [address] [facility] 200 [place] [id number] Social History Tobacco Use Types Packs/Day Years [...] you attend cheondoism or Patient refused 2021 mosque services? Do you belong to any clubs or No 05/17/2022 organizations such as cheondoism groups, unions, [employer] or athletic groups, or school groups? 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 [address] [place] [phone] (Octavio christensen) 08/20/2022 Appointment Radiology Claude Loaiza MPAS, P.A.-C. [address] [place] [address] [phone] (Octavio christensen) 08/22/2022 Virtual Visit Urology Gibran Ruvalcaba M.D. [address] [place] [address] [phone] (Octavio christensen) documented as of this encounter Procedures Procedure Name Priority Date/Time Associated Comments Diagnosis MT INJ ANTEGRD Routine 06/14/2022 2:29 PM Malignant [...] imary documented in this encounter Care Teams Recovery Auditor Relationship Specialty Start Date End Date Elsewhere, Pcp PCP - General Internal Medicine 01/14/22 documented as of this encounter
--- OUTSIDE RECORDS SUMMARY | 2022-08-09 13:38 | XMS_ITS | Encounter Summary ---
:1935 Author Organization [facility] Address [address] [place] [id number] Care Team Providers Name Role Phone Elsewhere, Pcp Primary Care Provider Unavailable Reason for Referral Outpatient (Routine) - Authorized Specialty Diagnoses / Procedures Referred By Contact Refer red To Contact Diagnoses Congestive Heart Failure (HCC) Bradycardia Sinus Marielena Alfaro APRN, [facility] [address] [place] [address] [address] [place] [address] [place] [address] Phone: [phone] Fax: Referral ID Status Reason Start Expiration Visits Visits Date Date Requested Authorized [id number] Authorized Continuity of 08/02/2023 1 1 Care 2 Encounter Details Date Type Department Care Team Description 08/01/2022 - Hospital Encounter [facility] Kajal Molina M.D., Ph.D. [address] [place] [phone] Congestive Heart Failure (HCC) (Primary Dx); 08/02/2022 [facility] Phoenix Zapata M.D., M.P.H. [address] [place] [phone] Tachycardia; [facility], [facility], Roel LazaroB.S. [address] [place] [address] [facility], Sixth Floor [address] [place] [phone] Social History Tobacco Use Types Packs/Day Years [...] you attend scientology or Patient refused 2021 spiritism services? 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 [employer] documented as of this encounter Last Filed [...] Mass Index 26.72 08/02/2022 7:00 AM CDT documented in this encounter Discharge Summaries Marielena Alfaro, EDWARD, C.N.P. - 08/02/2022 10:37 AM CDT CARDIOLOGY HOSPITAL DISCHARGE SUMMARY DATE OF ADMISSION: 08/01/2022 DATE OF DISCHARGE: 08/02/2022 Discharge Provider: Brigido Ramos M.B.B.S. 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 #14 Urinary retention requiring in and out straight catheterization #15 Dementia RECOMMENDATIONS FOR FOLLOW-UP APPOINTMENTS: -- recheck TSH in 2 weeks and 4 weeks --adjust levothyroxine dose as needed --patient discharged with continuous cardiac ECG monitoring --patient was switched to torsemide to improve diuresis, please titrate as needed --please check a BNP within 7 days RESTRICTIONS: (Driving/work) no driving FOLLOW-UP APPOINTMENTS: Scheduled Appointments 08/20/2022 8:[address] KYA [facility] 831 Radiology 08/20/2022 10:30 AM RITCHIE Matta [facility] Radiology 08/22/2022 1:00 PM Gibran Ruvalcaba M.D. Urology For appointment details refer to your Patient Appointment Guide. HOSPITAL COURSE Admission Weight: 82.1 kg Dismissal Weight: 82.1 kg BMI: Body mass index is 26.72 kg/m??. Mr. Chery is a 87 y.o. male who presented as a direct admission from [facility] for further evaluation of sinus bradycardia. 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 His reported that on Friday she noticed him to be more fatigued, pale, and short of breath withexertion. Upon checking his vital signs she noted that his heart rate was 44 beats per minute. He also had worsening hypoxia. He noted significant lower extremity and scrotal edema. His reported that after receiving several doses of intravenous Lasix yesterday in [facility] that his scrotal edema and lower extremity edema have improved. He has a history of nonischemic dilated cardiomyopathy with an ejection fraction of 27% with severe tricuspid regurgitation. In the past he has been intolerant to beta-blockers due to bradycardia. He was monitored on telemetry overnight. There was no significant AV block noted. He maintained on normal sinus rhythm with a heart rate greater than 30 but did have frequent PACs and PVCs. MOME telemetry monitor was placed prior to discharge and to be worn for 14 days. Patient does unwell with ECG leads on his skin so would be satisfied to gather as much data as possible. Heart rate monitoring with pulse oximeter or blood pressure cuff likely would be challenging due to the frequent APCs. He has no indication for pacemaker implantation at this time. Oxygen levels were assessed at rest and with activity and documented. He has an existing oxygen prescription that he is to wear at night. Prescription was updated. He was aggressively diuresed at the [facility] and appears euvolemic. Given right-sided heart failure symptoms related to the severe tricuspid regurgitation and dilated cardiomyopathy he likely would respond better to torsemide than furosemide. Torsemide 20 mg by mouth once daily was initiated and likely will need further titration as an outpatient based on renal function and weight. TSH was noted to be elevated at 21 with a T4 of 0.7. TPO antibodies were negative. He was initiated on Levothyroxine 125 mg p.o. once daily. He will need follow-up with a TSH recheck in 2 weeks and 4 weeks, with further dose adjustment by his primary care provider. TEST RESULTS PENDING AT DISCHARGE: Pending Labs Order Current Status T3 (Triiodothyronine), Free Collected (08/02/22 0607) DISCHARGE DISPOSITION: Home or Self Care [1] CONDITION ON DISCHARGE: Stable. DIET AT DISCHARGE: Low-sodium 2 L fluid restriction PRIMARY PROVIDER: No care marine steam fitter to display Primary Care Providers: Elsewhere, Pcp (General) No address on file Primary Care Provider Phone Number: None Primary Care Provider Fax Number: None documented in this encounter Discharge Instructions Discharge InstructionsBrigitte Mckenzie - 08/02/2022 6:48 AM CDT You were discharged from the [facility] 3 Service. Please identify this service name if you call with questions after hospitalization. AppointmentsBrigitte Mckenzie - 08/02/2022 10:36 AM CDT * Take a copy of your dismissal paperwork with you to your appointments. * [place], [place] Tuesday August 09, 2022: 12:[address] Edwards, primary care provider, hospital follow up visit, at the clinic. RECOMMENDATIONS: * [facility] [place], [place] You may have outpatient appointments at [facility] that changed during your hospitalization. Refer to your [facility] Patient Visit Guide (PVG) for the most current schedule of appointments and details instructions of tests / procedures. Call [phone] if you did not receive a PVG or need to CANCEL any [facility] appointment(s). AttachmentsThe following attachments cannot be sent through Care Everywhere. Levothyroxine (By mouth) ([place])Torsemide (By mouth) ([place])documented in this encounter Medications at Time of [...] total) by mouth every morning before breakfast. omeprazole (PriLOSEC) 20 Take 1 capsule by 0 01/19 mg capsule mouth daily. tamsulosin (FLOMAX) 0.4 mg Take 1 capsule 90 capsule 3 06/14 24 hr capsule (0.4 mg total) by mouth daily. torsemide (DEMADEX) 20 mg Take 1 tablet (20 30 tablet 3 08/02/2023 tablet mg total) by mouth daily. nitroglycerin (NITROSTAT) Place 0.4 mg under 0 0.4 mg SL tablet the tongue every 5 (five) minutes as needed for chest pain. trospium (SANCTURA) 20 mg Take 1 tablet (20 30 tablet 0 03/2022 tablet mg total) by mouth 2 (two) times a day as needed (bladder spasms). documented as of this encounter H&P Notes Brigido Ramos M.B.B.S. - 08/02/2022 1:53 PM CDT SUBJECTIVE This is a late entry. HISTORY OF PRESENT ILLNESS Mr. Chery is an 87-year-old gentleman who was admitted with a prior history of significant cardiomyopathy, end-stage dementia, sundowning, and hearing loss who was noted to be bradycardic on his pulse ox monitor at home. This is in setting of frequent PVCs. In this setting, he was admitted for further management. During his hospitalization, he was monitored on telemetry. No bradycardia episodes noted. I suspect most of them have been because of pauses. We reviewed his prior testing including hisrecent evaluation in the Cardiology Clinic. EF remains 25%. In setting of nonischemic cardiomyopathy, patient is DNR/DNI. We noted his TSH was significantly elevated at 22. ASSESSMENT / PLAN Mr. Chery is an 87-year-old gentleman with end-stage cardiomyopathy who prefers only supportive care at this point. No true bradycardia or AV block noted to warrant urgent pacing. In this setting, we will continue with current medical management. We will treat his hypothyroidism to see if that canalso help some of his symptoms of being drowsy and bradycardia. All of his questions were answered. The patient's would like to take him home as she feels more comfortable at home which is very reasonable. We will get his paperwork done and get him discharged. Patient is DNR/DNI. Aftab Viera. CT CT Job ID: [id number] Marielena Alfaro APRN, C.NRichelle - 08/01/2022 7:14 PM CDT CARDIOLOGY INPATIENT ADMISSION NOTE CHIEF COMPLAINT/REASON FOR VISIT Bradycardia Collaborating physician: Dr. Ramos Admitting service: [facility] 3 HISTORY OF PRESENT ILLNESS Mr. Chery is a 87 y.o. male who presented as a direct admission from [facility] for further evaluation of bradycardia. Per patient's he has significant dementia with . He also has significant hearing loss. All history was completed with his . She reports that on Friday she noticed him to be more fatigued, pale, and short of breath with exertion. Upon checking his vital signs she noted that his heart rate was 44 beats per minute. He also hadworsening hypoxia. His weight had increased to approximately 186 lb on Friday, previous weight was 174 lb. He noted significant lower extremity and scrotal edema. His reports that after receiving several doses of intravenous Lasix yesterday in [facility] that his scrotal edema and lower extremity edema have improved. Previous weight noted on chart review: 168 lb 02/15/2022; it was noted at this time that he had been losing weight. He has a history of nonischemic dilated cardiomyopathy with an ejection fraction of 27% with severe tricuspid regurgitation. In the past he has been intolerant to beta-blockers due to bradycardia. There were no true heart block has been documented. He is had a significant cardiac evaluation at the [facility] in [place]. 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 The following portions of the patient's history were reviewed and updated as appropriate: allergies,current medications, family history, medical history, social history, surgical history and problem list. PAST MEDICAL HISTORY Past Medical History: Diagnosis Date Atherosclerotic Heart Disease Of [place] Coronary Artery Without Angina Pectoris Cardiomyopathy Dilated [...] Mohs micrographic surgery with complex layered closure. REVIEW OF SYSTEMS A complete 10 point review of systems was completed and negative except for as mentioned in the HPI. ALLERGIES Allergies Allergen Reactions Penicillins Anaphylaxis and Other (see comments) Beta-Blockers (Beta-Adrenergic Blocking Agts) Other (see comments) Bradycardia HOME MEDICATIONS Active Home Medications Medication Sig Taking amLODIPine (NORVASC) 2.5 mg tablet Take 2.5 mg by mouth daily. aspirin [address] tablet Take 1 tablet by mouth daily. buPROPion XL (WELLBUTRIN XL) 300 mg 24 hr tablet Take 300 mg by mouth daily. cholecalciferol (VITAMIN D3) 50 mcg (2,000 Unit) tablet Take 50 mcg by mouth daily. finasteride (PROSCAR) 5 mg tablet Take 1 tablet (5 mg total) by mouth daily. furosemide (LASIX) 20 mg tablet Take 40 mg by mouth 2 (two) times a day. glipiZIDE (GLUCOTROL XL) 10 mg 24 hr tablet Take 10 mg by mouth daily with breakfast. hydroxyurea (HYDREA) 500 mg capsule Take 3-4 capsules by mouth daily. 1500 mg on Fri- 2000 mg on Fri-Fri lisinopriL (PRINIVIL,ZESTRIL) 2.5 mg tablet Take 2.5 mg by mouth daily. methocarbamol (ROBAXIN) 750 mg tablet TAKE 1 TO 2 TABLETS BY MOUTH EVERY 6 TO 8 HOURS NEEDED FOR MUSCLE SPASM nitroglycerin (NITROSTAT) 0.[address] 0.4 mg under the tongue every 5 (five) minutes as needed for chest pain. omeprazole (PriLOSEC) 20 mg capsule Take 1 capsule by mouth daily. tamsulosin (FLOMAX) 0.4 mg 24 hr capsule Take 1 capsule (0.4 mg total) by mouth daily. trospium (SANCTURA) 20 mg tablet Take 1 tablet (20 mg total) by mouth 2 (two) times a day as needed (bladder spasms). SOCIAL HISTORY reports that he has never smoked. He has never used smokeless tobacco. Alcohol use questions deferred to the physician. Drug use questions deferred to the physician. Lives at home with his . is primary caregiver for all activities of daily living. No alcohol use. FAMILY HISTORY Reviewed without changes. OBJECTIVE VITAL SIGNS: There is no height or weight on file to calculate BMI. PHYSICAL EXAMINATION General: Mr. Chery is a 87 y.o. male. He is well developed and in no acute distress. Heart: Irregular rate and rhythm, he has a systolic murmur heard best at the left nipple. Positive peripheral pulses. Peripheral extremity edema: +1 pitting edema bilateral, right is slightly greater than left. Lungs: Clear to auscultation bilaterally and diminished. No cough. Wearing 2 L via nasal cannula Abdomen: Soft, non-distended, non-tender to palpation throughout. No rebound tenderness, guarding, CVA tenderness. Positive bowel sounds. Musculoskeletal/Joints: Bilateral upper and lower extremity strength 5/5, full ROM. No joint erythema, swelling, tenderness. Mental: Alert and oriented to person only. Cooperative with his . Deteriorated historian. Skin: He has facial skin alterations of skin thinning around his eyes. He is noted to frequently be scratching his upper arms bilaterally and removing his legs frequently. Eyes: PERRLA, EOM intact, no scleral icterus. ENT: Mucous membranes moist, no oral lesions. Poor dentition. Dentures: No. Lymph: No cervical, supraclavicular, or axillary adenopathy. DIAGNOSTICS 08/01/2022 12 lead ECG Pending 08/02/2022 0700 chest x-ray PA and lateral Pending 02/21/2022 12 lead ECG Sinus rhythm Premature ventricular complexes Nonspecific T wave abnormality Prolonged QT 02/21/2022 Transthoracic echocardiogram: 1. Severely enlarged left ventricular chamber size, [...] cava size with reduced inspiratory collapse (<50%). 02/14/2022 cardiac MRI outside hospital Severe left ventricular systolic dysfunction, LVEF 24%. Prominent increase in LV volumes and diffuse hypokinesis. Mild increase in mass - eccentric LVH. Severe right ventricular systolic dysfunction, RVEF 28%. Prominent increase in RV volumes (similar to the increase present in LV volumes). Mid myocardial basilar miles- and inferoseptal fibrosis. Increased cardiac risk. Severe biatrial enlargement. Mild to moderate increase in ECV 34% - not consistent with amyloidosis as a cause of LV dysfunction. Normal pericardium. Normal lungs. Normal aorta. 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 Chery is a 87 y.o. male who presented [facility]. Patient has noted previous bradycardia secondary to beta blockers. He presented to the [facility] with volume overload and was diuresed with intravenous Lasix. PLAN: --observe heart rate and heart rhythm overnight --NPO after midnight for consideration of pacemaker implantation --it seems possible that after having the pacemaker implanted beta-beata could be used to suppressventricular ectopy --sliding scale insulin with glucose q.i.d. --bladder scan t.i.d. with straight catheterization t.i.d. as needed for retention (patient's straight cath him b.i.d. at home) --sleep enhancement --avoid any medication that may cause worsening of his baseline dementia --service supports presence of family overnight with reassessment on a day-to-day basis. Patient [id number]-py-mot has offered to stay with the patient overnight while patient's is able to rest adequately at the hotel. Both patient and his family feels that this will offer the patient has significant reassurance and may reduce the level of delirium VTE: anti-coagulation held due to possible procedure GI: Pantoprazole Code Status: DNR/DNI Discuss code status with both the patient and his . His reports that he would not want aggressive measures to sustain life. She would not want CPR started or intubation here in the hospital. In the event of bradycardia that seems reversible she would support placement of a temporary pacemaker. Disposition: Uncertain Marielena Alfaro APRN, C.N.P. 08/01/22 documented in this encounter Consult Notes Suzan Man R.N. - 08/02/2022 12:20 PM CDTAssociated Order(s): IP CONSULT TO CARE MANAGEMENT; IP CONSULT TO CARE MANAGEMENT Discharge Planning Assessment SUBJECTIVE Assessment Information Referral Source: Case Screening Referral Reason: Discharge Planning Primary Language: [place] Business Management Analyst Services Used: No Person(s) present during interview: Person(s) Present During Interview: patient and spouse Miesha History of Present Illness #1 Hypertension And Chronic Kidney Disease Stage 1 To 4 #2 Malignant Neoplasm Of Bladder (HCC) #3 Congestive Heart Failure (HCC) #4 Hypothyroidism #5 Bradycardia Sinus #6 Beat Premature Ventricular Social History Patient's Home Environment: [place] Finance/Insurance Primary insurance: MEDICARE A AND B Secondary insurance: [employer] Does the patient have any financial concerns? no benefits: No Advance Directives Legal Decision Maker: Self Advance Directives: N/A Advance Directives Status: N/A OBJECTIVE Baseline Functional Status Baseline Activities of Daily Living Mobility: Independent Dressing: Independent Feeding: Independent Bathing: Independent Grooming: Independent Toileting: Independent Behavior: Appropriate, Pleasant, Calm, Cooperative Communication: Talks, Understands speaking, Understands [place] Shopping: Independent Transportation: Support from family Medication Management: Independent Housekeeping: Needs assistance Meal Prep: Needs assistance Managing Finances: Independent Assistive Devices: Eyeglasses, Dentures, Oxygen Home Oxygen Company: [employer]/Resources: Home health Agency Name: [facility] Provided: [facility], PT Baseline Services/Resources Primary care clinic and provider: ELSEWHERE, PCP Services/Resources: Home health Anticipated Needs Functional Status: None Assistive Devices: Walker - front wheeled, Oxygen, Eyeglasses Services/Resources: Home health Agency Name: [facility] Provided: [facility], PT Anticipated Modifications to the Patient's Home: None Transportation Needs: Support from family Does the patient need discharge transport arranged?: No Phone Number for Ride/Caregiver: [phone]/Miesha - and grandson Anticipated Discharge Destination: Home or Self Care ASSESSMENT / PLAN Assessment: The residential recycle driver met with Henok Chery to discuss his current hospitalization and home going needs. The patient was accompanied by , Miesha . The patient was a reliable historian. The role of residential recycle driver was reviewed. The patient and patient's reviewed his prior level of care and support system. The patient receives support from his . The patient and patient's described his living environment as a single level home with level entry. Housekeeping, grocery shopping, meal prep, and other household responsibilities have previously been completed by patient and patient's . residential recycle driver discussed the patient's potential needsat dismissal based on their home setting, previous needs and responsibilities, homebound status, andrelevant assessments with the patient and patient's . The patient will be safe and supported to return home with spouse/S.O. when medically ready. Support will be provided by family. The patient and patient's demonstrated understanding when discussing his home going plans and anticipated needs. RN CM to room 6 [facility] 844 to discuss discharge needs. Patient sitting in chair awaiting discharge papers with at bedside. Due to patient not being able to hear while portable oxygen in place, answered assessment questions. provided name of HH provider of [facility] and [facility] for Home Oxygen supplies. At this time, the care team anticipates the patient requires the following services to be reconnected: home healthcare and oxygen. The patient's identified the following as their current vendor(s): [facility] and [employer]. The team also shared the patient will potentiallyrequire the following service(s) to be set up: home healthcare and oxygen. After reviewing the patient's chart and meeting with the patient's , the residential recycle driver deemed the LACE+/readmission questions were appropriate. The patient's explained that his current admission was due to Shortness of breath.The patient's stated that he had no difficulty obtaining, und erstanding, or using his medications as directed. The patient reports no other concerns regarding his medications. A primary care provider has been identified; Primary Care Providers: Elsewhere, Pcp (General) No address on file The patient's stated his current admission could not have been prevented. The residential recycle driver will share this information with the care team. The patient's reports understanding that he will dismiss from the hospital TODAY this afternoon. Pending hospital course and medical readiness, no barriers to dismissal have been identified at this time. Plan: The patient's agrees with the following plan. Patient's anticipated discharge disposition is: Home with Home Healthcare Reconnected: [facility] and [facility] for Oxygen Transportation upon dismissal will be provided by family--Celeste . residential recycle driver recommended nothing at this time. residential recycle driver provided information regarding the dismissal process. residential recycle driver placed or requested the following hospital-based consult orders and/or referrals: None. residential recycle driver will continue to assess for homegoing needs with the interdisciplinary team. residential recycle driver encouraged the patient to reach out with any questions/concerns. Oxygen Reconnect: Durable Medical Equipment - Admitted Since 08/01/2022 Service Provider Selected Services Address Phone Fax Patient Preferred [facility] Durable Medical Equipment [address] [facility] [phone] -- Contact: Staff Respiratory Equipment : Portable concentrator, 02 concepts, Mahtomedi adaptor Oxygen provider reports patient???s current orders are for 2 liters. NURSING: - Arrange transportation oxygen tank if needed. - If new oxygen requirements are needed, assist primary service with new prescription and fax to provider. PRIMARY SERVICE: - Complete and sign new oxygen prescription if needed. CASE MANAGEMENT: -Reviewed patient's insurance coverage for the services noted above. The patient and Miesha appear(s) to have an understanding of this. -Will continue to follow and assist if needs arise. Patient to discharge with home health care. Home Medical Care - Admitted Since 08/01/2022 Service Provider Selected Services Address Phone Fax Patient Preferred [facility] Home health Home Health Services [address] [place] [address] [phone] -- Contact: Staff NURSING: - Complete documentation in the Discharge Navigator including Nursing Report Info and Facility/NextLevel of Care Info - Call report and arrange for the patient???s first visit. - Send required packet of dismissal information with patient, including After Visit Summary and advance directive. PRIMARY SERVICE: - Please provide a non-[place] home health order for resumption of previous [...] coverage for the services noted above. The patient and Miesha appear(s) to have an understanding of this. -Will continue to follow and assist if needs arise. Signed by: Suzan Man R.N. 08/02/2022 documented in this encounter Nursing Notes Maria D Andrews R.N. - 08/02/2022 12:35 PM CDT Shift Goals: Clinical Goals for the Shift: Henok will remain stable and develop a plan for the day. Identify possible barriers to meeting goals/advancing plan of care: none End of Shift Summary: Henok remained stable and discharged to home self care; [facility] prescription and a MOME monitor. Maria D Andrews R.N. - 08/02/2022 12:27 PM CDT 08/02/22 1145 Oxygen Therapy SpO2 92 % Home Oxygen Assessment Rest/Awake Room Air SpO2 90 Percent Exercise/Activity Room Air SpO2 85 Percent Exercise/Activity with Oxygen SpO2 90 Percent (1L NC) Patient required 1L NC with activity. documented in this encounter Miscellaneous Notes Hospital Course - Marielena Alfaro APRN, C.NJluisP. - 08/01/2022 5:51 PM CDT Mr. Chery is a 87 y.o. male who presented as a direct admission from [facility] for further evaluation of sinus bradycardia. 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 His reported that on Friday she noticed him to be more fatigued, pale, and short of breath withexertion. Upon checking his vital signs she noted that his heart rate was 44 beats per minute. He also had worsening hypoxia. He noted significant lower extremity and scrotal edema. His reported that after receiving several doses of intravenous Lasix yesterday in [facility] that his scrotal edema and lower extremity edema have improved. He has a history of nonischemic dilated cardiomyopathy with an ejection fraction of 27% with severe tricuspid regurgitation. In the past he has been intolerant to beta-blockers due to bradycardia. He was monitored on telemetry overnight. There was no significant AV block noted. He maintained on normal sinus rhythm with a heart rate greater than 30 but did have frequent PACs and PVCs. MOME telemetry monitor was placed prior to discharge and to be worn for 14 days. Patient does unwell with ECG leads on his skin so would be satisfied to gather as much data as possible. Heart rate monitoring with pulse oximeter or blood pressure cuff likely would be challenging due to the frequent APCs. He has no indication for pacemaker implantation at this time. Oxygen levels were assessed at rest and with activity and documented. He has an existing oxygen prescription that he is to wear at night. Prescription was updated. He was aggressively diuresed at the [facility] and appears euvolemic. Given right-sided heart failure symptoms related to the severe tricuspid regurgitation and dilated cardiomyopathy he likely would respond better to torsemide than furosemide. Torsemide 20 mg by mouth once daily was initiated and likely will need further titration as an outpatient based on renal function and weight. TSH was noted to be elevated at 21 with a T4 of 0.7. TPO antibodies were negative. He was initiated on Levothyroxine 125 mg p.o. once daily. He will need follow-up with a TSH recheck in 2 weeks and 4 weeks, with further dose adjustment by his primary care provider. documented in this encounter Plan of Treatment Upcoming Encounters Date Type Specialty Care Team Description 08/20/2022 Appointment Radiology Claude Loaiza MPAS, P.A.-C. [address] [place] [address] [phone] (Octavio christensen) 08/20/2022 Appointment Radiology Claude Loaiza MPAS, P.A.-C. [address] [place] [address] [phone] (Octavio rk) 08/22/2022 Virtual Visit Urology Gibran Ruvalcaba M.D. [address] [place] [address] [phone] (Octavio christensen) Pending Results Name Type Priority Associated Diagnoses Date/Ti in ECG Ambulatory Real Cardiac Services Routine Bradycardia Sinus 08/02/2022 12:34 Time Cardiac PM CDT Monitoring Scheduled Referrals Name Type Priority Associated Diagnoses Order [facility] Ref[facility] Routine Congestive Heart Ord ered: Health referral Failure (HCC) 08/02/2022 Bradycardia Sinus documented as of this encounter Procedures Procedure Name Priority Date/Time Associated Comments Diagnosis ECG AMBULATORY REAL Routine 08/02/2022 12:34 Bradycardia Sinus TIME CARDIAC PM CDT MONITORING - HOSPITAL HOOKUP GLUCOSE POCT, B Routine 08/02/2022 8:25 Results f or AM CDT this procedure are in the results section. DX CHEST AP OR PA RAD - Routine 08/02/2022 7:54 Result s for AND LATERAL 2 VIEWS (most inpatients AM CDT this procedure and all are in the outpatients) results section. HC MICROSOMAL AB Timed 08/02/2022 [...] procedu re are in the results section. TYPE AND SCREEN Timed 08/02/2022 6:07 Results f or AM CDT this procedure are in the results section. T3 Routine 08/02/2022 6:07 Results for (TRIIODOTHYRONINE), AM CDT this pro cedure FREE, S are in the results section. T4 (THYROXINE), Routine 08/02/2022 6:07 Results f or FREE, S AM CDT this procedure are in the results section. HEMOGLOBIN A1C, B Timed 08/02/2022 6:07 Results for AM CDT this procedure are in the results section. COMPREHENSIVE Timed 08/02/2022 6:07 Results for METABOLIC PANEL, S/P AM CDT this pr ocedure are in the results section. ECG Routine 08/01/2022 7:54 Results for PM CDT this procedure are in the results section. NT-PRO B-TYPE Timed 08/01/2022 6:50 Results for NATRIURETIC PEPTIDE PM CDT this pro cedure (BNP), S are in the results section. CBC WITH Timed 08/01/2022 6:50 Results for DIFFERENTIAL, B PM CDT this procedu re are in the results section. BASIC METABOLIC Timed 08/01/2022 6:50 Results f or PANEL, S/P PM CDT this procedure are in the results section. ECG Routine 08/01/2022 6:38 Results for PM CDT this procedure are in the results section. ADULT OXYGEN THERAPY Routine 08/01/2022 6:20 PM CDT ADULT OXYGEN THERAPY Routine 08/01/2022 6:20 PM CDT ADULT OXYGEN THERAPY Routine 08/01/2022 6:20 PM CDT documented in this encounter Results Glucose, POCT (08/02/2022 8:25 AM CDT) [...] Address City/State/ZIP Code Phon e Number POC [facility] [address] [place] [address] PCL[facility] [place] [address] [place] P[facility] [address] DX Chest [...] degenerative changes of the spine and shoulders. Marielena Alfaro APRN, Aram.N.P. IMG DIAGNOSTIC IMAGING P ROCEDURES (ABNORMAL) T3 (Triiodothyronine), Free (08/02/2022 6:07 AM CDT) athologist Signature T3 2.2 (L) 2.8 - 4.4 08/02/2022 [facility] (Triiodothyron pg/mL 12:00 PM CDT ine), Free, S Specimen Anatomical Collection Method Collection Time Receive d Time (Source) Location / / Volume Laterality Blood (Blood, 08/02/2022 6:07 AM 08/02/20 Venous) CDT 11:03 AM CDT Marielena Alfaro APRN, Aram.N.P. LAB BLOOD ADD-ON Performing Organization Address City/[facility]/ZIP Code Phon e Number [facility] [address] [place], [place] [address] [place] [id number] [place] [address] Dr. LAZO (ABNORMAL) T4 (Thyroxine), Free (08/02/2022 6:07 AM CDT) athologist Signature T4 0.7 (L) 0.9 - 1.7 08/02/2022 D[place] (Thyroxine), ng/dL 10:04 AM CDT Free, S Specimen Anatomical Collection Method Collection Time Receive d Time (Source) Location / / Volume Laterality Blood (Blood, 08/02/2022 6:07 AM 08/02/20 8:22 Venous) CDT AM CDT Marielena Alfaro APRN, C.N.P. LAB BLOOD ADD-ON Performing Organization Address City/State/ZIP Code Phon e Number [facility] - [facility] [address] [place], [place] [address] [address] [place], [place] [id number] [place] [address]-[facility] [address] [facility] Thyroperoxidase (TPO) Antibodies, Serum (08/02/2022 6:07 AM CDT) [facility] gist Method Time Signature Thyroperoxidase Ab, <0.3 <9.0 08/02/2022 DTL S IU/mL 9:20 AM CDT Specimen Anatomical Collection Method Collection Time Receive d Time (Source) Location / / Volume Laterality Blood 08/02/2022 6:07 AM 2 6:45 CDT AM CDT Marielena Alfaro APRN, C.N.P. LAB BLOOD NON ADD-ON Performing Organization Address City/[facility] Phon e Number [facility] - 200 [place], [place] [address] [facility] [place] [address] Laboratories-[address] (ABNORMAL) T4 (Thyroxine), Free, Serum (08/02/2022 6:07 AM CDT) athologist Signature T4 0.7 (L) 0.9 - 1.7 08/02/2022 DTL (Thyroxine), ng/dL 7:37 AM CDT Free, S Specimen Anatomical Collection Method Collection Time Receive d Time (Source) Location / / Volume Laterality Blood 08/02/2022 6:07 AM 2 6:45 CDT AM CDT Marielena Alfaro APRN, C.N.P. LAB BLOOD ADD-ON Performing Organization Address City/[facility] Phon e Number [facility] - [address] [place], [place] [address] [place] [address] [place] [address] Laboratories-[address] Lipid Panel (08/02/2022 6:07 AM CDT) athologist [...] =220 mg/dL Fasting (8 HR or more) [id number] 08/02/2022 6:45 A M CDT DTL Specimen Anatomical Collection Method Collection Time Receive d Time (Source) Location / / Volume Laterality Blood (Blood, 08/02/2022 6:07 AM 08/02/20 6:45 Venous) CDT AM CDT Marielena Alfaro APRN, C.N.P. LAB BLOOD ADD-ON Performing Organization Address City/State/ZIP Code Phon e Number [facility] - [address] [place], [place] [address] [facility] [place] [address] Laboratories-[facility] [address] [facility] (ABNORMAL) Hemoglobin A1c (08/02/2022 6:07 AM CDT) P athologist Signature Hemoglobin A1c, 6.3 (H) 4.0 - 5.6 08/02/2022 DTL B % 7:07 AM CDT Comment: Hemoglobin A1c values of 5.7-6.4 percent indicate an increased risk for developing diabetes mariana lamar. In diabetic patients, HbA1c goals should be discussed with healthcare provider. Specimen Anatomical Collection Method Collection Time Receive d Time (Source) Location / / Volume Laterality Blood (Blood, 08/02/2022 6:07 AM 08/02/20 6:31 Venous) CDT AM CDT Marielena Alfaro APRN, C.N.P. LAB BLOOD ADD-ON Performing Organization Address City/[facility]/ZIP Code Phon e Number [facility] - [address] [place], [place] [address] [place] [address] (ABNORMAL) Thyroid Function [place] (08/02/2022 6:07 AM CDT) P athologist Signature TSH, Sensitive 21.0 (H) 0.3 - 4.2 08/02/2022 DTL mIU/L 7:17 AM CDT Specimen Anatomical Collection Method Collection Time Receive d Time (Source) Location / / Volume Laterality Blood (Blood, 08/02/2022 6:07 AM 08/02/20 6:45 Venous) CDT AM CDT Marielena Alfaro APRN, C.N.P. LAB BLOOD ADD-ON Performing Organization Address City/[facility]/ZIP Code Phon e Number [facility] - [address] [place], [place] [address] [place] [address] Type and Screen (with reflex Antibody ID) (08/02/2022 6:07 AM CDT) Patholo gist Method Time Signature ABORh A Pos Not 08/02/2022 STRM applicable 6:44 AM CDT Antibody Negative Negative 08/02/2022 STRM Screen 6:58 AM CDT Type & Screen 08/05/2022 08/02/2022 STRM Expiration 23:59 6:44 AM CDT Testing [place] DEFAULT 08/02/2022 STRM Location 6:22 AM CDT Specimen Anatomical Collection Method Collection Time Receive d Time (Source) Location / / Volume Laterality Blood (Blood, 08/02/2022 6:07 AM 08/02/20 6:22 Venous) CDT AM CDT Marielena Alfaro APRN, C.N.P. LAB BLOOD BANK TEST ORDE RABLES Performing Organization Address City/State/ZIP Code Phon e Number [facility] - [address] [place], [place] [address] [address] [facility] [place] [address] (ABNORMAL) CBC without Differential (08/02/2022 6:07 AM CDT) Patholo gist Method Time Signature Hemoglobin 8.1 (L) [...] 08/02/20 6:31 Venous) CDT AM CDT Marielena Alfaro APRN, C.N.P. LAB BLOOD ADD-ON Performing Organization Address City/State/ZIP Code Phon e Number [facility] - [address] [place] [address] [facility] [place] [address] Laboratories-[facility] [address] [facility] (ABNORMAL) Comprehensive Metabolic Panel (08/02/2022 6:07 AM [...] Address City/State/ZIP Code Phon e Number [facility] - [address] [place], [place] [address] [facility] [place] [address] Laboratories-[facility] [address] ECG 12 Lead (08/01/2022 7:54 PM CDT) P athologist Signature Ventricular Rate 75 BPM MUSE ECG/Min DE Interval 170 ms MUSE QRSD Interval 96 ms MUSE QT Interval 418 ms MUSE QTC Interval 466 ms MUSE P Casanova 80 degrees MUSE R Casanova -25 degrees MUSE T Wave Casanova 100 degrees MUSE Specimen Anatomical Collection Method [...] Phon e Number MUSE MUSE NA (ABNORMAL) Basic Metabolic Panel (08/01/2022 6:50 PM [...] PM 08/01/20 7:28 Venous) CDT PM CDT Marielena Alfaro APRN, C.N.P. LAB BLOOD ADD-ON Performing Organization Address City/[facility]/ZIP Code Phon e Number [facility] - [address] [place] [address] [facility] [place] [address] Laboratories-[address] (ABNORMAL) NT-Pro B-Type Natriuretic Peptide (BNP) (08/01/2022 6:50 PM CDT) P athologist Signature NT-Pro BNP 5384 (H) <=540 [...] PM 08/01/20 7:28 Venous) CDT PM CDT Marielena Alfaro APRN, C.N.P. LAB BLOOD ADD-ON Performing Organization Address City/State/ZIP Code Phon e Number [facility] - [address] [place] [address] [facility] [place] [address] Laboratories-[facility] [address] [facility] (ABNORMAL) CBC with Differential, Blood (08/01/2022 6:50 PM CDT) [facility] Method Time Signature Hemoglobin 8.3 (L) 13.2 [...] 7:17 Venous) CDT PM CDT Yolis Champion APRNN.P. LAB BLOOD ADD-ON Performing Organization Address City/State/ZIP Code Phon e Number [facility] - [address] [place], [place] [address] [facility] [place] [address] Laboratories-[facility] [address] [facility] ECG 12 Lead (08/01/2022 6:38 PM CDT) P athologist Signature Ventricular Rate 72 BPM MUSE ECG/Min DE Interval 182 ms MUSE QRSD Interval 98 ms MUSE QT Interval 406 ms MUSE QTC Interval 444 ms MUSE P Casanova 69 degrees MUSE R Casanova -19 degrees MUSE T Wave Casanova 96 degrees MUSE Specimen Anatomical Collection Method Collection Time Receive d Time (Source) Location / / Volume Laterality 08/01/2022 6:38 PM 7:02 CDT PM CDT Impressions MUSE - 08/01/2022 6:57 PM CDT Sinus rhythm Premature ventricular complexes singly, paired, and in a series Low voltage QRS Nonspecific T wave abnormality When compared with ECG of 18-FEB-2022 13 :25, No significant change was found Revised Report Narrative This result has an attachment that is no t available. Procedure Note Rolf Rojas M.D. - 08/01/2022Form atting of this note might be different from the original. IMPRESSION: Sinus rhythm Premature ventricular complexes singly, paired, and in a series Low voltage QRS Nonspecific T wave abnormality When compared with ECG of 18-FEB-2022 13 :25, No significant change was found Revised Report Marielena Alfaro APRN, Aram.N.P. ECG ORDERABLES Performing Organization Address City/State/ZIP Code Phon e Number MUSE MUSE NA documented in this encounter Visit Diagnoses Diagnosis Congestive Heart Failure (HCC) - Primary Congestive Heart Failure (HCC) Tachycardia Bradycardia Sinus Hypertension And Chronic Kidney Disease Stage 1 To 4 Malignant Neoplasm Of Bladder (HCC) Hypothyroidism Bradycardia Sinus Beat Premature Ventricular documented in this encounter Admitting Diagnoses Diagnosis Congestive Heart Failure (HCC) documented in this encounter Administered Medications Inactive Administered Medications - up to 3 most recent administrations Medication Order MAR Action Action Date Dose Rate Site amLODIPine tablet 2.5 mg (NORVASC) Given 08/02/2022 8:17 AM CDT 2.5 mg 2.5 mg, oral, Daily, First dose on Fri08/02/[address] tablet 81 mg Given 08/02/2022 8:17 AM CDT 81 mg 81 mg, oral, Daily, First dose on Fri08/02/22 at 0900, Swallow whole. Do NOT crush, chew, or split tablet. buPROPion XL 24 hr tablet 300 mg (WELLBUTRIN Given 8:17 AM CDT 300 mg XL) 300 mg, oral, Daily, First dose on Fri08/02/22 at 0900, Swallow whole. Do NOT crush, chew, or split tablet. cholecalciferol (vitamin D3) tablet 25 m cg Given 08/02/2022 8:17 AM CDT 25 mcg 25 mcg, oral, Daily, First dose on Fri08/02/22 at 0900, cholecalciferol (vitamin D3) orderable was interchanged for cholecalciferol (vitamin D3) tablet/capsule finasteride tablet 5 mg (PROSCAR) Given 08/02/2022 8:17 AM CDT 5 mg 5 mg, oral, Daily, First dose on Fri08/02/22 at 0900, See tube feeding guidelines for tube feeding administration instructions. hydroxyurea capsule 1,500 mg (HYDREA) 1,500 mg, oral, Daily, First dose (after last modifica tion) on Fri08/03/22 at 0900, HAZARDOUS - Handle with care. Swallow whole. Do NOT crush, chew or open capsule. hydroxyurea capsule 2,000 mg (HYDREA) Given 08/02/2022 8:18 AM CDT 1,500 mg 2,000 mg, oral, Daily, First dose (after last reorder) on Fri08/02/22 at 0900, For 3 doses, HAZARDOUS - Handle with care. Swallow whole. Do NOT crush, chew or open capsule. insulin aspart U-100 injection 0-7 Units (NovoLOG FlexPen) 0-7 Units, subcutaneous, 3 times daily, First dose on Fri08/02/22 at 0800, Insulin Scale: Mild Correction Scale, 180 - 219: 2 units, 220 - 259: 3 units, 260 - 299: 4 units, 300 - 339: 5 units, 340 - 379: 6 units, 380 - 3 99: 7 units, Greater than 399: Call service writing Insulin orders levothyroxine tablet 125 mcg (SYNTHROID, Given 08/02/2022 11:04 AM CDT 125 mcg LEVOTHROID) 125 mcg, oral, Daily before breakfast, First dose on Fri08/02/[address] tablet 40 mg (PROTONIX) Given 08/02/2022 8:17 AM CDT 40 mg 40 mg, oral, Daily before breakfast, First dose on Fri08/02/22 at 0700, pantoprazole 40 mg oral daily was interchanged for omeprazole 20 or 40 mg oral daily Swallow whole. Do NOT crush, chew, or split tablet. sodium chloride 0.9 % injection 3 mL Given 08/02/2022 8:00 AM CDT 3 mL 3 mL, intravenous, Every 12 hours scheduled, First dose on Lise 08/01/22 at 2100, Peripheral Intravenous Catheter and Rapid Infusion Catheter, when no infusion to maintain patency Given 08/01/2022 8:55 PM CDT 3 mL tamsulosin 24 hr capsule 0.4 mg (FLOMAX) Given 08/02/2022 8:17 AM CDT 0.4 mg 0.4 mg, oral, Daily, First dose on Fri08/02/22 at 0900, Swallow whole. Do NOT crush, chew or open capsule. torsemide tablet 20 mg (DEMADEX) Given 08/02/2022 11:04 AM CDT 20 mg 20 mg, oral, Daily, First dose (after last modification) on Fri08/02/22 at 1015 documented in this encounter Active and Recently Administered Medications Times are shown in CDT. Scheduled Medication Order 07/31/2022 08/01/2022 08/02/2022 amLODIPine tablet 2.5 mg (NORVASC) 816 (Given - Provider: Maria D Andrews RJluisN.) 2.5 mg, oral, Daily, First dose on Fri08/02/[address] tablet 81 mg 816 (Gi austyn - Provider: Maria D Andrews RHuong.) 81 mg, oral, Daily, First dose on Fri at 0900, Swallow whole. Do NOT crush, chew, or split tablet. buPROPion XL 24 hr tablet 300 mg (WELLBUTRIN XL) 816 (Given - Provider: Maria D Andrews R.N.) 300 mg, oral, Daily, First dose on Fri at 0900, Swallow whole. Do NOT crush, chew, or split tablet. cholecalciferol (vitamin D3) tablet 25 mcg 0817 (Given - Provider: Maria D Andrews RJluisNJluis) 25 mcg, oral, Daily, First dose on Fri at 0900, cholecalciferol (vitamin D3) orderable was interchanged for cholecalciferol (vitamin D3) tablet/capsule finasteride tablet 5 mg (PROSCAR) 0817 (Given - Provider: Gibran HuaNJluis) 5 mg, oral, Daily, First dose on Fri at 0900, See tube feeding guidelines for tube feeding administration instructions. hydroxyurea capsule 1,500 mg (HYDREA) 1,500 mg, oral, Daily, First dose (after last modification) on Fri08/03/22 at 0900, HAZARDOUS - Handle with care. Swallow whole. Do NOT crush, chew or open capsule. hydroxyurea capsule 2,000 mg (HYDREA) (CANCELED) 0818 (Given - Provider: Maria D Andrews RJluisNJluis) 2,000 mg, oral, Daily, First dose (after last reorder) on Fri08/02/22 at 0900, For 3 doses, HAZARDOUS - Handle with care. Swallow whole. Do NOT crush, chew or open capsule. insulin aspart U-100 injection 0-7 Units (NovoLOG FlexPen) 0825 (Not Given - Provider: Maria D Andrews RJluisN. - Reason: Order parameters not met)1229 (Not Given - Provider: Maria D Andrews R.N. - Reason: Patient/family refused) 0-7 Units, subcutaneous, 3 times daily, First dose on Fri08/02/22 at 0800, Insulin Scale: Mild Correction Scale, 180 - 219: 2 units, 220 - 259: 3 units, 260 - 299: 4 units, 300 - 339: 5 units, 340 - 37 9: 6 units, 380 - 399: 7 units, Greater than 399: Call service writing Insulin orders levothyroxine tablet 125 mcg (SYNTHROID, LEVOTHROID) 1104 (Given - Provider: Maria D Andrews RJluisNJluis) 125 mcg, oral, Daily before breakfast, First dose on Fri [address] tablet 40 mg (PROTONIX) 0817 (Given - Provider: Maria D Andrews RJluisNJluis) 40 mg, oral, Daily before breakfast, Fir st dose on Fri08/02/22 at 0700, pantoprazole 40 mg oral daily was interchanged for omeprazole 20 or 40 mg oral daily Swallow whole. Do NOT crush, chew, or split tablet. sodium chloride 0.9 % injection 3 mL 205 5 (Given - Provider: Priya Grewal RGuy) 0800 (Given - Provider: Maria D Andrews RGuy) 3 mL, intravenous, Every 12 hours schedu led, First dose on Fri08/01/22 at 2100, Peripheral Intravenous Catheter and Rapid Infusion Catheter, when no infusion to maintain patency tamsulosin 24 hr capsule 0.4 mg (FLOMAX) 0817 (Given - Provider: MariaD Andrews R.N.) 0.4 mg, oral, Daily, First dose on Fri at 0900, Swallow whole. Do NOT crush, chew or open capsule. torsemide tablet 20 mg (DEMADEX) 1104 (Given - Provider: Maria D Andrews RGuy) 20 mg, oral, Daily, First dose (after la st modification) on Fri08/02/22 at 1015 PRN Medication Order 07/31/2022 08/01/2022 08/02/2022 acetaminophen tablet 1,000 mg (TYLENOL) 1,000 mg, oral, Every 6 hours PRN, mild pain or score 1-3 of 10, fever, Notify sevice prior to first administration for fever, Starting on Fri08/01/22 at 1819 calcium carbonate chewable tablet 400 mg of calcium (TUMS) 400 mg of calcium, oral, Every 2 hour DE N, indigestion, Not to exceed 12 tablets in 24 hours, Starting on Fri08/01/22 at 1819, Doses listed are in mg of elemental calcium. Take with food. 500 mg calciu m carbonate contains 200 mg of elemental calcium. docusate sodium capsule 100 mg (COLACE) 100 mg, oral, 2 times daily PRN, constip ation, Starting on Fri08/01/22 at 1817, Do NOT crush or chew. sodium chloride 0.9 % injection 10 mL 10 mL, intravenous, As needed, line care , Starting on Lise 08/01/22 at 1817, Peripheral Intravenous Catheter and Rapid Infusion Catheter, prior to blood sampling, post blood transfusion or post blood sampling sodium chloride 0.9 % injection 3 mL 3 mL, intravenous, As needed, line care, Starting on Lise 08/01/22 at 1817, Prior to and following infusion and between multiple consecutive infusions: sodium chloride 0.9 % injection documented in this encounter Care Teams Rubber Goods Inspector Tester Relationship Specialty Start Date End Date Elsewhere, Pcp PCP - General Internal Medicine 01/14/22 documented as of this encounter
--- OUTSIDE RECORDS SUMMARY | 2022-08-09 13:38 | XMS_ITS | Encounter Summary ---
:1935 Author Organization [facility] Address [address] [place] [address] Care Team Providers Name Role Phone Elsewhere, Pcp Primary Care Provider Unavailable Reason for Visit Outpatient (Routine) - Closed Specialty Diagnoses / Procedures Referred By Contact Refer red To Contact Radiology Diagnoses Malignant Neoplasm Of Bladder (HCC) Hydronephrosis Gibran Ruvalcaba M.D. [facility] Procedures IR Nephrostomy Tube Exchange Left IR Nephrostomy Tube Check Left [address] [place] [address] Referral ID Status Reason Start Date Expiration Date Visits Requ ested Visits Authorized [id number] Closed 07/01/2022 07/01/2023 1 1 Encounter Details Date Type Department Care Team Description 07/02/2022 Hospital Encounter Department of Gibran Ruvalcaba M.D. [address] [place] [address] Malignant Neoplasm Of Bladder (HCC); Radiology in Beatriz Leblanc M.D. [address] [place] [address] Hydronephrosis Blade Batista [place], M.D. [address] [place] [address] [address] [place] [address] Social History Tobacco Use Types [...] you attend taoism or Patient refused 2021 church services? Do you belong to any clubs or No 05/17/2022 organizations such as taoism groups, unions, [employer] or athletic groups, or school groups? 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 aspirin [address] tablet Take 1 tablet by 0 2015 mouth daily. glipiZIDE (GLUCOTROL XL) Take 10 mg by 0 10 mg 24 hr tablet mouth daily with breakfast. buPROPion XL (WELLBUTRIN Take 300 mg by 0 XL) 300 mg 24 hr tablet mouth daily. cholecalciferol (VITAMIN Take 50 mcg by 0 D3) 50 mcg (2,000 Unit) mouth daily. tablet finasteride (PROSCAR) 5 mg Take 1 tablet (5 90 tablet 3 tablet mg total) by mouth daily. hydroxyurea (HYDREA) 500 Take 3-4 capsules by mouth daily. 1 500 mg on Fri- 0 10/27/2017 mg capsule 2000 mg on Fri-Fri nitroglycerin (NITROSTAT) Place 0.4 mg under 0 [...] times a day as needed (bladder spasms). furosemide (LASIX) 20 mg Take 40 mg by 0 08/02/2022 tablet mouth 2 (two) times a day. lisinopriL Take 2.5 mg by 0 08/01/2022 (PRINIVIL,ZESTRIL) 2.5 mg mouth daily. tablet methocarbamol (ROBAXIN) TAKE 1 TO 2 3 06/04/2019 08/01/2022 750 mg tablet TABLETS BY MOUTH EVERY 6 TO 8 HOURS NEEDED FOR MUSCLE SPASM documented as of this encounter Procedure Notes [...] Appointment Radiology Claude Loaiza MPAS P.A.-C. [address] [place] [phone] (Wo rk) 08/20/2022 Appointment Radiology Claude Loaiza MPAS, P.AJluis-C. [address] [place] [phone] (Wo rk) 08/22/2022 Virtual Visit Urology Gibran Ruvalcaba M.D. [address] [place] [phone] (Wo rk) documented as of [...] d raining. TECHNIQUE: Prone positioning. Fluoroscop ic integration developer image demonstrates the likely malpositioning of the [...] Over a torque wire, a new 12 Sudanese by 25 cm pigtail catheter was advanced [...] d raining. TECHNIQUE: Prone positioning. Fluoroscop ic integration developer image demonstrates the likely malpositioning of the [...] Over a torque wire, a new 12 Sudanese by 25 cm pigtail catheter was advanced [...] (SUBLIMAZE) 0835 (Given - Provider: Negrita Persaud RHuong.)0836 (Given - Provider: Negrita Persaud R.N.)0840 (Given - Provider: Negrita Persaud RGuy) 25 mcg, intravenous, Every 2 min PRN, [...] Leblanc M.D.) infiltration, Code/trauma/sedation medication, Starting on 07/02/22 at 0843 midazolam (PF) injection 0.5 [...] res piratory depression, Starting on Fri07/02/22 at 0803, For 1 [...] injection documented in this encounter Care Teams Lawyer Probate Relationship Specialty Start Date End Date Elsewhere, Pcp PCP - General Internal Medicine 01/14/22 documented as of this encounter
--- OUTSIDE RECORDS SUMMARY | 2022-08-09 13:38 | XMS_ITS | Encounter Summary ---
:1935 Author Organization [facility] Address [address] [place] [address] Care Team Providers Name Role Phone Elsewhere, Pcp Primary Care Provider Unavailable Reason for Referral Outpatient (Routine) - Authorized Specialty Diagnoses / Procedures Referred By Contact Refer red To Contact Urology Claude Loaiza M PAS, P.A.-C. [facility] [address] [place] [address] Referral ID Status Reason Start Date Expiration Date Visits V isits Requested Authorized [id number] Authorized 06/14/2022 06/13/2025 1 1 Scheduling Instructions Phone visit to discuss results of CTU an d follow up RI/CAT/PET Scan (Routine) - Authorized Specialty Diagnoses / Procedures Referred By Contact Refer red To Contact Radiology Diagnoses Malignant Neoplasm Of Bladder (HCC) Claude Loaiza MPAS, [facility] Procedures CT Urogram without and with IV Contrast PBe. [address] [place], [place] [address] Referral ID Status Reason Start Date Expiration Date Visits V isits Requested Authorized [id number] Authorized 06/14/2022 06/14/2023 1 1 utpatient (Routine) - Authorized Specialty Diagnoses / Procedures Referred By Contact Refer red To Contact Radiology Diagnoses Malignant Neoplasm Of Bladder (HCC) Claude Loaiza MPAS, [facility] Procedures IR Nephrostomy Tube Check Left P.Annamaria. [address] [place] [address] Referral ID Status Reason Start Date Expiration Date Visits V isits Requested Authorized [id number] Authorized 06/14/2022 06/14/2023 1 1 Reason for Visit Outpatient (Routine) - Closed Specialty Diagnoses / Procedures Referred By Contact Refer red To Contact Diagnoses Malignant Neoplasm Of Bladder (HCC) Claude Loaiza MPAS, [facility] Procedures Cystoscopy (specific provider) P.A.-C. [address] [place] [address] Referral ID Status Reason Start Date Expiration Date Visits Requ ested Visits Authorized [id number] Closed 06/14/2022 06/14/2023 1 1 Encounter Details Date Type Department Care Team Description 06/14/2022 Procedure visit Department of Urology Gibran Ruvalcaba Neoplasm Of in Jj Batista M.D. Bladder (HCC) (Primary [place] 200 [facility] Dx) 200 [place] [address] [phone] Social History Tobacco Use Types Packs/Day Years [...] you attend bahai or Patient refused 2021 baptist services? 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 - 06/14/2022 1:30 PM CDT Patient was seen for a cystoscopy procedure. Cystoscope CYF-VH #[id number] was used during today's cystoscopy procedure. Accessories used: cystoscope reusable (sterilized) stop cock Load number from processing via [employer]: [id number] With Nephrostogram and urethral dilation, consent was obtained. documented in this encounter Procedure Notes Gibran Ruvalcaba M.D. - 06/14/2022 1:30 PM CDTAssociated Order(s): URO Nephrostogram Pre-Procedure Diagnose(s): Malignant Neoplasm Of Bladder (HCC) URO Nephrostogram Date/Time: 06/14/2022 2:50 PM Performed by: Gibran Ruvalcaba M.D. Authorized by: Claude Loaiza, [facility], P.A.-C. Performed a left nephrostogram. Instilled easily [...] patient is receiving CIC with a 14 Gibraltarian straight will continue this. I took the [...] Claude Loaiza MPAS, P.A.-C. [address] [place], [place] [phone] (Wo ) 08/20/2022 Appointment Radiology Claude Loaiza MPAS, P.A.-C. [address] [place], [place] [phone] ([facility]) 08/22/2022 Virtual Visit Urology Gibran Ruvalcaba M.D. [address] [place], [place] [phone] ( rk) Scheduled Orders [...] Type Priority Associated Diagnoses Order [facility] Urology office Outpatient Referral Routine Expect ed: visit (clinic) 08/22/2022 (Approximate), Expires: 09/14/2023 documented as of this encounter Procedures Procedure Name Priority Date/Time Associated Comments Diagnosis URO CYSTOSCOPY Routine 06/14/2022 2:29 PM Malignant Neoplasm R esults for this (SPECIFIC PROVIDER) CDT Of Bladder (HCC) proc edure are in the results section. ID INJ ANTEGRD Routine 06/14/2022 2:29 PM Malignant [...] dose documented in this encounter Care Teams Musical String Maker Relationship Specialty Start Date End Date Elsewhere, Pcp PCP - General Internal Medicine 01/14/22 documented as of this encounter
--- OUTSIDE RECORDS SUMMARY | 2022-08-09 13:39 | XMS_ITS | Encounter Summary ---
:1935 Author Organization [facility] Address [address] [place] [address] Care Team Providers Name Role Phone Elsewhere, Pcp Primary Care Provider Unavailable Encounter Details Date Type Department Care Team Description 05/17/2022 Hospital Encounter Department of Armida Btoello nephrosis; Laboratory Medicine L, PRODUCT OWNER, Tavia t Neoplasm Of Bladder (HCC) and Pathology, C.N.P., [facility] [address] [place] [address] [place] [address] [place], [place] [phone] (Work) [phone] Social History Tobacco Use Types Packs/Day Years [...] you attend synagogue or Patient refused 2021 orthodoxy services? 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 tablet glipiZIDE (GLUCOTROL XL) Take 10 mg by [...] mg Take 40 mg by mouth 0 08/02/2022 tablet 2 (two) times a day. lisinopriL Take 2.5 mg by 0 08/01/2022 (PRINIVIL,ZESTRIL) 2.5 mg mouth daily. tablet methocarbamol (ROBAXIN) TAKE 1 TO 2 TABLETS 3 08/ 08/01/2022 750 mg tablet BY MOUTH EVERY 6 TO 8 HOURS NEEDED FOR MUSCLE SPASM documented as of this encounter Plan of Treatment Upcoming Encounters Date Type Specialty Care Team Description 08/20/2022 Appointment Radiology Claude Loaiza MPAS, P.A.-C. [address] [place] [phone] (Wo rk) 08/20/2022 Appointment Radiology Claude Loaiza MPAS, P.A.-C. [address] [place] [phone] (Wo rk) 08/22/2022 Virtual Visit Urology Gibran Ruvalcaba M.D. [address] [place] [phone] (Wo rk) documented as of [...] Organization Address City/State/ZIP Code Phon e Number [facility] - [address] [place], [place] [address] [facility] [place] [address] [facility] [address] documented in this encounter Visit Diagnoses Diagnosis Hydronephrosis Malignant Neoplasm Of Bladder (HCC) documented in this encounter Care Teams Systems Technologist Relationship Specialty Start Date End Date Elsewhere, Pcp PCP - General Internal Medicine 01/14/22 documented as of this encounter
--- OUTSIDE RECORDS SUMMARY | 2022-08-09 13:39 | XMS_ITS | Encounter Summary ---
:1935 Author Organization [facility] Address [address] [place] [address] Care Team Providers Name Role Phone Elsewhere, Pcp Primary Care Provider Unavailable Reason for Visit Reason Comments Neph Tube Question Encounter Details Date Type Department Care Team Description 05/09/2022 Clinical Communication Department of Bassam Knight ph Tube Question [facility] [address] [place], [place] [address] [place] [address] [place], [place] [phone] (Work) [phone] Social History Tobacco Use Types Packs/Day Years [...] you attend druze or Patient refused 2021 gnosticism services? 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 Chery's neph tube bag. She says it's kind of white in color and stringy looking. She's not sure if that's normal or something to be concerned about. She says he doesn't have any signs of any infection. She can be reached at [phone]. Thanks! documented in this encounter Plan of Treatment Upcoming Encounters Date Type Specialty Care Team Description 08/20/2022 Appointment Radiology Claude Loaiza MPAS PJluisA.-C. [address] [place] [phone] (Wo rk) 08/20/2022 Appointment Radiology Claude Loaiza MPAS P.A.-CJluis [address] [place] [phone] (Wo rk) 08/22/2022 Virtual Visit Urology Gibran Ruvalcaba M.D. [address] [place] [phone] (Wo rk) documented as of this encounter Visit Diagnoses Not on filedocumented in this encounter Care Teams Airplane Pilot Photogrammetry Relationship Specialty Start Date End Date Elsewhere, Pcp PCP - General Internal Medicine 01/14/22 documented as of this encounter
--- OUTSIDE RECORDS SUMMARY | 2022-08-09 13:39 | XMS_ITS | Encounter Summary ---
:1935 Author Organization [facility] Address [address] [place] [address] Care Team Providers Name Role Phone Elsewhere, Pcp Primary Care Provider Unavailable Encounter Details Date Type Department Care Team Description 04/09/2022 Hospital Encounter Department of Radiation Calin Anderson, [facility] [address] [place] [address] [phone] Social History Tobacco Use Types Packs/Day Years [...] you attend moravian or Patient refused 2021 tenriism services? 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 [address] [place], [place] [phone] (Wo rk) 08/20/2022 Appointment Radiology Claude Loaiza, GARCIA, P.A.-C. [address] [place], [place] [phone] (Wo rk) 08/22/2022 Virtual Visit Urology Gibran Ruvalcaba M.D. [address] [place], [place] [phone] (Wo rk) documented as of this encounter Visit Diagnoses Not on filedocumented in this encounter Care Teams Technical Services Manager Relationship Specialty Start Date End Date Elsewhere, Pcp PCP - General Internal Medicine 01/14/22 documented as of this encounter
--- OUTSIDE RECORDS SUMMARY | 2022-08-09 13:39 | XMS_ITS | Encounter Summary ---
:1935 Author Organization [facility] Address [address] [place] [address] Care Team Providers Name Role Phone Elsewhere, Pcp Primary Care Provider Unavailable Encounter Details Date Type Department Care Team Description 05/17/2022 Hospital Encounter Department of Armida Botello nephrosis; Laboratory Medicine L, ACETYLENE TORCH OPERATOR, Tavia t Neoplasm Of Bladder (HCC) and Pathology, C.N.P., [facility] [address] [place] [address] [place] [address] [place], [place] [phone] (Work) [phone] Social History Tobacco Use Types Packs/Day Years [...] you attend amish or Patient refused 2021 hinduism services? Do [...] or slept in a long-term (including now)? Education Answer Date Recorded What is the highest level of school you have completed or 12 th grade 05/17/2022 the highest degree you have received? 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 [address] [place] [phone] (Wo rk) 08/20/2022 Appointment Radiology Claude Loaiza MPAS, P.A.-CJluis [address] [place] [phone] (Wo rk) 08/22/2022 Virtual Visit Urology Gibran Ruvalcaba M.D. [address] [place] [phone] (Wo rk) documented as of this encounter Visit Diagnoses Diagnosis Hydronephrosis Malignant Neoplasm Of Bladder (HCC) documented in this encounter Care Teams Nanosystems Engineer Relationship Specialty Start Date End Date Elsewhere, Pcp PCP - General Internal Medicine 01/14/22 documented as of this encounter
--- OUTSIDE RECORDS SUMMARY | 2022-08-09 13:39 | XMS_ITS | Encounter Summary ---
:1935 Author Organization [facility] Address [address] [place] [address] Care Team Providers Name Role Phone Elsewhere, Pcp Primary Care Provider Unavailable Reason for Referral Outpatient (Routine) - Closed Specialty Diagnoses / Procedures Referred By Contact Refer red To Contact Radiology Diagnoses Malignant Neoplasm Of Bladder (HCC) Nura David IV, [facility] Procedures IR Nephrostomy Tube Exchange Left M.D. [address] [place], [place] [address] Referral ID Status Reason Start Date Expiration Date Visits Requ ested Visits Authorized [id number] Closed 02/22/2022 02/22/2023 1 1 Reason for Visit Outpatient (Routine) - Closed Specialty Diagnoses / Procedures Referred By Contact Refer red To Contact Radiology Diagnoses Malignant Neoplasm Of Bladder (HCC) Nura David IV [facility] Procedures IR Nephrostomy Tube Exchange Left M.D. [address] [place] [address] Referral ID Status Reason Start Date Expiration Date Visits Requ ested Visits Authorized [id number] Closed 02/22/2022 02/22/2023 1 1 Encounter Details Date Type Department Care Team Description 05/20/2022 Hospital Encounter Department of Fr diana David IV, M.D. [address] [place] [phone] Malignant Neoplasm Radiology in Bryon Wu M.D., Ph.D. [address] [place] [address] Of Bladder (HCC) [place], [place] [address] [place] [phone] Social History Tobacco Use Types Packs/Day Years [...] you attend hindu or Patient refused 2021 anglican services? 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 nitroglycerin (NITROSTAT) Place 0.4 mg [...] in entirety FINDINGS See Report PRIMARY PROCEDURALIST Wu ASSISTANTS None COMPLICATIONS None. DRAINS None. IMPLANTS None. ANESTHESIA Moderate Sedation. FLUIDS See MAR ESTIMATED BLOOD LOSS <5ml CURRENT MEDICATIONS No Medication Changes FOLLOW-UP LETTER None. MAY RETURN TO WORK Not applicable PATIENT INSTRUCTIONS For your next scheduled appointment documented in this encounter Plan of Treatment Upcoming Encounters Date Type Specialty Care Team Description 08/20/2022 Appointment Radiology Claude Loaiza MPAS, P.A.-C. [address] [place] [phone] (Octavio christensen) 08/20/2022 Appointment Radiology Claude Loaiza MPAS, P.A.-C. [address] [place] [phone] (Octavio christensen) 08/22/2022 Virtual Visit Urology Gibran Ruvalcaba M.D. [address] [place] [phone] (Octavio christensen) documented as of [...] 05/20/2022 5:48 PM CDT Routine exchange 10 Malawian left percutaneous nephrostomy tube. Drain to gravity [...] lidoca ine used for local anesthesia. Fluoroscopic deputy brand inspector image demonstrates unchanged position of the l eft 10 Malawian percutaneous nephrostomy tube. Injection of contrast demonstrated a locking loop wit hin the markedly dilated left renal pelvis with high-grade narrowing at the left UPJ. Drain removed in its entirety over a guidewire and a new 10 Malawian locking loop catheter advanced with lock ing [...] lidoca ine used for local anesthesia. Fluoroscopic deputy brand inspector image demonstrates unchanged position of the l eft 10 Malawian percutaneous nephrostomy tube. Injection of contrast demonstrated a locking loop wit hin the markedly dilated left renal pelvis with high-grade narrowing at the left UPJ. Drain removed in its entirety over a guidewire and a new 10 Malawian locking loop catheter advanced with lock ing [...] blood loss: minimal.. IMPRESSION: Routine exchange 10 Malawian left percutan eous nephrostomy tube. Drain to gravity bag drainage. Routine exchange in 10-12 week s. NR Ashtyn Buck IVG IR PROCEDURES documented in this encounter Visit [...] breaths/minute. documented in this encounter Care Teams Electronic Equipment Trades Worker Relationship Specialty Start Date End Date Elsewhere, Pcp PCP - General Internal Medicine 01/14/22 documented as of this encounter
--- OUTSIDE RECORDS SUMMARY | 2022-08-09 13:39 | XMS_ITS | Encounter Summary ---
:1935 Author Organization [facility] Address [address] [place] [address] Care Team Providers Name Role Phone Elsewhere, Pcp Primary Care Provider Unavailable Reason for Referral Outpatient (Routine) - Closed Specialty Diagnoses / Procedures Referred By Contact Refer red To Contact Urology Manny Anderson M .D. Alamiri, Jamal M, M.B., [address] [facility] B.., [place] [address] [address] [facility] [place] [address] Phone: Fax: Referral ID Status Reason Start Date Expiration Date Visits Requ ested Visits Authorized [id number] Closed 04/16/2022 04/16/2023 1 1 Radiation Therapy (Routine) - Authorized Specialty Diagnoses / Procedures Referred By Contact Refer red To Contact Diagnoses Malignant Neoplasm Of Bladder (HCC) Manny Anderson M.D. [facility] Procedures Management Visit [address] [place] [phone] Referral ID Status Reason Start Date Expiration Date Visits V isits Requested Authorized [id number] Authorized 03/05/2022 03/05/2023 10 10 Reason for Visit Radiation Therapy (Routine) - Authorized Specialty Diagnoses / Procedures Referred By Contact Refer red To Contact Diagnoses Malignant Neoplasm Of Bladder (HCC) Manny Anderson M.D. [facility] Procedures Management Visit [address] [place], [place] [address] Referral ID Status Reason Start Date Expiration Date Visits V isits Requested Authorized [id number] Authorized 03/05/2022 03/05/2023 10 10 Encounter Details Date Type Department Care Team Description 04/16/2022 Hospital Encounter Department of Manny Anderson Neoplasm Radiation Oncology Ashtyn Dubois Of Bladder (HCC) in [place], [address] [place], [place] 1821 [facility] [id number] [place], [place] [phone] (Work) [phone] Social History Tobacco Use Types Packs/Day Years [...] you attend yazidi or Patient refused 2021 advent services? 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 Kurtis Bach at [facility] and demonstrated a large medial lobe of the prostate, 3 cm, with papillary bladder mass, 5 cm, the left bladder wall obstructing the left UO. The patient reported a history of gross hematuria for months and difficulty emptying his bladder. Discussed that the patient ideally would need TURBT and bilateral retrogrades. Patient will need to see his guide winder for surgical clearance, he is a poor candidate for surgery. 02/08/2022 Other [facility] David Day who recommended proceeding [...] urethral catheter and nephrostomy tube. Referral to [facility] provider. 03/12/2022 - Radiation Therapy Radiation [...] order for Urology follow up on our [facility]. He will contact us with [...] Manny Anderson M.D. 04/16/2022 6:46 PM CDT [facility] [address] [place] [address] documented in this encounter Plan of Treatment Upcoming Encounters Date Type Specialty Care Team Description 08/20/2022 Appointment Radiology Claude Loaiza MPAS, P.A.-C. [address] [place] [phone] (Octavio christensen) 08/20/2022 Appointment Radiology Claude Loaiza MPAS, P.A.-C. [address] [place] [address] [phone] (Octavio christensen) 08/22/2022 Virtual Visit Urology Gibran Ruvalcaba M.D. [address] [place] [address] [phone] (Octavio christensen) Scheduled Orders Name [...] (HCC) documented in this encounter Care Teams Chief Relay Tester Relationship Specialty Start Date End Date Elsewhere, Pcp PCP - General Internal Medicine 01/14/22 documented as of this encounter
--- OUTSIDE RECORDS SUMMARY | 2022-08-09 13:39 | XMS_ITS | Encounter Summary ---
:1935 Author Organization [facility] Address [address] [place] [address] Care Team Providers Name Role Phone Elsewhere, Pcp Primary Care Provider Unavailable Reason for Referral MRI/CAT/PET Scan (Routine) - Closed Specialty Diagnoses / Procedures Referred By Contact Refer red To Contact Radiology Diagnoses Hydronephrosis Armida Botello [facility]NUnited [facility] Services Procedures CT Urogram without and with IV Contrast C.N.P., D.N.P. 200 [place] [address] Referral ID Status Reason Start Date Expiration Date Visits Requ ested Visits Authorized [id number] Closed 05/17/2022 05/17/2023 1 1 Reason for Visit MRI/CAT/PET Scan (Routine) - Closed Specialty Diagnoses / Procedures Referred By Contact Refer red To Contact Radiology Diagnoses Hydronephrosis Armida Botello APRNUnited Health Services Procedures CT Urogram without and with IV Contrast C.N.P., D.N.P. 200 [place] [address] Referral ID Status Reason Start Date Expiration Date Visits Requ ested Visits Authorized [id number] Closed 05/17/2022 05/17/2023 1 1 Encounter Details Date Type Department Care Team Description 05/23/2022 Hospital Encounter Department of Rosmery, Armida [place] nephrosis Radiology, José Dubois APRN, C.N.P., Building, in [facility]P. [place] [address] [facility] [address] [place] [phone] Social History Tobacco Use Types Packs/Day Years [...] you attend hinduism or Patient refused 2021 spiritism services? Do [...] or slept in a intermediate (including now)? Education Answer Date Recorded What is the highest level of school you have completed or 12 th grade 05/17/2022 the highest degree you have received? 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 [address] [place] [address] [place] [phone] (Wo rk) 08/22/2022 Virtual Visit Urology Gibran Ruvalcaba M.D. [address] [place], [place] 55 [phone] (Wo rk) documented as [...] the abdo men or pelvis Armida Botello APRN C.N.P., D.N.P. IMG CT PROCEDURE S documented [...] Orders documented in this encounter Care Teams Call Center Coordinator Relationship Specialty Start Date End Date Elsewhere, Pcp PCP - General Internal Medicine 01/14/22 documented as of this encounter
--- OUTSIDE RECORDS SUMMARY | 2022-08-09 13:39 | XMS_ITS | Encounter Summary ---
:1935 Author Organization [facility] Address [address] [place] [address] Care Team Providers Name Role Phone Elsewhere, Pcp Primary Care Provider Unavailable Encounter Details Date Type Department Care Team Description 04/19/2022 Hospital Encounter Department of Radiation Calin Anderson, [facility] [place] [facility] [place] [address] [place] [phone] [phone] Social History Tobacco Use Types Packs/Day Years [...] you attend judaism or Patient refused 2021 yazidism services? 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 [address] [place], [place] [phone] (Wo rk) 08/20/2022 Appointment Radiology Claude Loaiza, GARCIA, P.A.-C. [address] [place], [place] 55 [phone] (Wo rk) 08/22/2022 Virtual Visit Urology Gibran Ruvalcaba M.D. [address] [place], [place] 55 [phone] (Wo rk) documented as of this encounter Visit Diagnoses Not on filedocumented in this encounter Care Teams Retirement Actuary Relationship Specialty Start Date End Date Elsewhere, Pcp PCP - General Internal Medicine 01/14/22 documented as of this encounter
--- OUTSIDE RECORDS SUMMARY | 2022-08-09 13:39 | XMS_ITS | Encounter Summary ---
:1935 Author Organization [facility] Address [address] [place] [address] Care Team Providers Name Role Phone Elsewhere, Pcp Primary Care Provider Unavailable Encounter Details Date Type Department Care Team Description 04/12/2022 Hospital Encounter Department of Radiation Calin Anderson, [facility] [place] [facility] [place] [address] [place] [address] [phone] Social History Tobacco Use Types Packs/Day Years [...] you attend buddhism or Patient refused 2021 advent services? 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 [address] [place], [place] 55 [phone] (Wo rk) 08/20/2022 Appointment Radiology Claude Loaiza, GARCIA, P.A.-C. [address] [place], [place] 55 [phone] (Wo rk) 08/22/2022 Virtual Visit Urology Gibran Ruvalcaba M.D. [address] [place], [place] 55 [phone] (Wo rk) documented as of this encounter Visit Diagnoses Not on filedocumented in this encounter Care Teams Developing Machine Operator Relationship Specialty Start Date End Date Elsewhere, Pcp PCP - General Internal Medicine 01/14/22 documented as of this encounter
--- OUTSIDE RECORDS SUMMARY | 2022-08-09 13:39 | XMS_ITS | Encounter Summary ---
:1935 Author Organization [facility] Address [address] [place] [address] Care Team Providers Name Role Phone Elsewhere, Pcp Primary Care Provider Unavailable Encounter Details Date Type Department Care Team Description 05/02/2022 Clinical Communication Department of Heladio Meadows Radiology, Didier Layton R.N. [facility], in [address] [place] [address] [place] [address] [place], [place] [phone] (Work) [phone] Social History Tobacco Use Types Packs/Day Years [...] you attend baptist or Patient refused 2021 jainism services? 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 - 05/02/2022 9:23 AM CDT We received a notification from [facility] appointment coordinators indicating that Mr. Chery has decided to cancel his scheduled suprapubic catheter placement. I called the [facility] appointment coordinators to verify this information. The procedure is canceled for now. documented in this encounter Plan of Treatment Upcoming Encounters Date Type Specialty Care Team Description 08/20/2022 Appointment Radiology Claude Loaiza MPAS, P.A.-C. [address] [place] [address] [phone] (Wo rk) 08/20/2022 Appointment Radiology Claude Loaiza MPAS, P.A.-C. [address] [place] [address] [phone] (Wo rk) 08/22/2022 Virtual Visit Urology Gibran Ruvalcaba M.D. [address] [place] [address] [phone] (Wo rk) documented as of this encounter Visit Diagnoses Not on filedocumented in this encounter Care Teams Outpatient Coding Specialist Relationship Specialty Start Date End Date Elsewhere, Pcp PCP - General Internal Medicine 01/14/22 documented as of this encounter
--- OUTSIDE RECORDS SUMMARY | 2022-08-09 13:39 | XMS_ITS | Encounter Summary ---
:1935 Author Organization [facility] Address [address] [place] [address] Care Team Providers Name Role Phone Elsewhere, Pcp Primary Care Provider Unavailable Reason for Referral Radiation Therapy (Routine) - Authorized Specialty Diagnoses / Procedures Referred By Contact Refer red To Contact Diagnoses Malignant Neoplasm Of Bladder (HCC) Manny Anderson M.D. [facility] Procedures Management Visit [address] [place], [place] [address] Referral ID Status Reason Start Date Expiration Date Visits V isits Requested Authorized [id number] Authorized 03/05/2022 03/05/2023 10 10 Reason for Visit Radiation Therapy (Routine) - Authorized Specialty Diagnoses / Procedures Referred By Contact Refer red To Contact Diagnoses Malignant Neoplasm Of Bladder (HCC) Manny Anderson M.D. [facility] Procedures Management Visit [address] [place], [place] [address] Referral ID Status Reason Start Date Expiration Date Visits V isits Requested Authorized [id number] Authorized 03/05/2022 03/05/2023 10 10 Encounter Details Date Type Department Care Team Description 04/09/2022 Hospital Encounter Department of Isidro Anderson M.D. [address] [place] [phone] Malignant Neoplasm Radiation Oncology Heladio Del Real M.D. [address] [place] [address] Of Bladder (HCC) in [place], [place] [address] [place] [address] Social History Tobacco Use Types [...] you attend lutheran or Patient refused 2021 samaritan services? 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 Avoid touching your eyes, nose and mouth. Clean and disinfect household surfaces daily and high- touch surfaces frequently throughout the day. documented in this encounter Plan of Treatment Upcoming Encounters Date Type Specialty Care Team Description 08/20/2022 Appointment Radiology Claude Loaiza MPAS, P.A.-C. [address] [place] [address] [phone] (Octavio christensen) 08/20/2022 Appointment Radiology Claude Loaiza MPAS, P.A.-CJluis [address] [place] [address] [phone] (Octavio christensen) 08/22/2022 Virtual Visit Urology Gibran Ruvalcaba M.D. [address] [place] [address] [phone] (Octavio christensen) Scheduled Orders Name Type Priority Associated Diagnoses Order S chedule Management Visit Radiation Oncology Routine Malignant Neoplasm Once for 1 Of Bladder (HCC) Occurrences starting 04/09/2022 sharon crowder 04/09/2022 documented as of this encounter Visit Diagnoses Diagnosis Malignant Neoplasm Of Bladder (HCC) documented in this encounter Care Teams Pasteurizing Supervisor Relationship Specialty Start Date End Date Elsewhere, Pcp PCP - General Internal Medicine 01/14/22 documented as of this encounter
--- OUTSIDE RECORDS SUMMARY | 2022-08-09 13:39 | XMS_ITS | Encounter Summary ---
:1935 Author Organization [facility] Address [address] [place] [address] Care Team Providers Name Role Phone Elsewhere, Pcp Primary Care Provider Unavailable Encounter Details Date Type Department Care Team Description 04/16/2022 Hospital Encounter Department of Radiation Calin Anderson, [facility]cology [facility] [place] [facility] [place] [address] [place] [address] [phone] Social History Tobacco Use Types Packs/Day Years [...] you attend bahai or Patient refused 2021 holiness services? 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 [address] [place], [place] [phone] (Wo rk) 08/20/2022 Appointment Radiology Claude Loaiza, GARCIA, P.A.-C. [address] [place], [place] 55 [phone] (Wo rk) 08/22/2022 Virtual Visit Urology Gibran Ruvalcaba M.D. [address] [place], [place] 55 [phone] (Wo rk) documented as of this encounter Visit Diagnoses Not on filedocumented in this encounter Care Teams Replenishment Specialist Relationship Specialty Start Date End Date Elsewhere, Pcp PCP - General Internal Medicine 01/14/22 documented as of this encounter
--- OUTSIDE RECORDS SUMMARY | 2022-08-09 13:39 | XMS_ITS | Encounter Summary ---
:1935 Author Organization [facility] Address [address] [place] [address] Care Team Providers Name Role Phone Elsewhere, Pcp Primary Care Provider Unavailable Reason for Visit Reason Comments Appointment Cancelled Encounter Details Date Type Department Care Team Description 05/21/2022 Clinical Communication Department of Adonay Klein Urology in [place] Ayala M.D. Cancelled [place], [facility] [place] [address] [place], [place] [address] [facility] [address] [place], [place] [phone] (Work) [phone] Social History Tobacco Use Types Packs/Day Years [...] attend oriental orthodox or Patient refused 2021 sikh services? 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 [address] [place] [address] [phone] (Octavio christensen) 08/20/2022 Appointment Radiology Claude Loaiza MPAS, P.A.-C. [address] [place] [address] [phone] (Octavio christensen) 08/22/2022 Virtual Visit Urology Gibran Ruvalcaba M.D. [address] [place] [address] [phone] (Octavio christensen) documented as of this encounter Visit Diagnoses Not on filedocumented in this encounter Care Teams Emergency Manager Relationship Specialty Start Date End Date Elsewhere, Pcp PCP - General Internal Medicine 01/14/22 documented as of this encounter
--- OUTSIDE RECORDS SUMMARY | 2022-08-09 13:39 | XMS_ITS | Encounter Summary ---
:1935 Author Organization [facility] Address [address] [place] [address] Care Team Providers Name Role Phone Elsewhere, Pcp Primary Care Provider Unavailable Reason for Referral Outpatient (Routine) - Authorized Specialty Diagnoses / Procedures Referred By Contact Refer red To Contact Nura David IV, M.D. [facility] 200 [place], [place] [phone] Referral ID Status Reason Start Date Expiration Date Visits V isits Requested Authorized [id number] Authorized 04/29/2022 04/29/2023 [address] Bassam Klein calendar Encounter Details Date Type Department Care Team Description 04/29/2022 Orders Only Department of Urology in [place] David is A [place], [place] Ashtyn COBIAN 200 [facility] 200 [place] [address] [place], [place] [phone] (Wo rk) Social History Tobacco Use Types [...] you attend buddhist or Patient refused 2021 denominational services? Do you belong to any clubs or No 05/17/2022 organizations such as buddhist groups, unions, fraTranscribeMe or athletic groups, or school groups? 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 [address] [place] [address] [phone] (Wo rk) 08/20/2022 Appointment Radiology Claude Loaiza MPAS, P.A.-C. [address] [place] [address] [phone] (Wo rk) 08/22/2022 Virtual Visit Urology Gibran Ruvalcaba M.D. [address] [place] [address] [phone] (Wo rk) Scheduled Referrals Name Type Priority Associated Diagnoses Order S chedule NonF2F phone Outpatient Referral Routine Expected : visit 04/29/2022 (Approximate), Expires: 2022 documented as of this encounter Visit Diagnoses Not on filedocumented in this encounter Care Teams Director Statistical Programming Relationship Specialty Start Date End Date Elsewhere, Pcp PCP - General Internal Medicine 01/14/22 documented as of this encounter
--- OUTSIDE RECORDS SUMMARY | 2022-08-09 13:39 | XMS_ITS | Encounter Summary ---
:1935 Author Organization [facility] Address [address] [place] [address] Care Team Providers Name Role Phone Elsewhere, Pcp Primary Care Provider Unavailable Encounter Details Date Type Department Care Team Description 04/19/2022 Documentation Department of Radiation Manny Anderson, Oncology in [place] [address] [address] [facility] [address] [place] [phone] [phone] (Wo rk) Social History Tobacco Use Types [...] you attend jewish or Patient refused 2021 taoism services? 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 - 04/19/2022 11:59 PM CDT DIAGNOSIS: 1. Malignant Neoplasm Of Bladder (HCC) Attending Physician: Manny Anderson M.D. ([id number]) Treatment Intent: Curative Concomitant Therapy: None Single Plan Treatment Course: 1xBladder Plan ID Fractions Dose / Fraction (cGy) Dose Treated (cGy) Dose Planned (cGy) First Treatment Last Treatment Elapsed Days [id number] 600 3600 3600 04/02/2022 04/19/2022 17 Course [...] Renetta Koch R.N., 05/03/2022 2:46 PM CDT [facility] [address] [place] [address] documented in this encounter Plan of Treatment Upcoming Encounters Date Type Specialty Care Team Description 08/20/2022 Appointment Radiology Claude Loaiza, MPAS, P.A.-C. [address] [place], [place] 55 [phone] (Wo rk) 08/20/2022 Appointment Radiology Claude Loaiza MPAS, Eduardo [address] [place], [place] 55 [phone] (Wo rk) 08/22/2022 Virtual Visit Urology Gibran Ruvalcaba M.D. [address] [place], [place] 55 [phone] (Wo rk) documented as of this encounter Visit Diagnoses Diagnosis Malignant Neoplasm Of Bladder (HCC) - Pr imary documented in this encounter Care Teams Loading Dock Helper Relationship Specialty Start Date End Date Elsewhere, Pcp PCP - General Internal Medicine 01/14/22 documented as of this encounter
--- OUTSIDE RECORDS SUMMARY | 2022-08-09 13:39 | XMS_ITS | Encounter Summary ---
:1935 Author Organization [facility] Address [address] [place] [address] Care Team Providers Name Role Phone Elsewhere, Pcp Primary Care Provider Unavailable Encounter Details Date Type Department Care Team Description 04/05/2022 Hospital Encounter Department of Radiation Calin Anderson, [facility]cology in [place] [facility] [place] [address] [place] [address] [phone] Social History Tobacco Use Types Packs/Day Years [...] you attend sabianism or Patient refused 2021 caodaism services? 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 [address] [place], [place] [phone] (Wo rk) 08/20/2022 Appointment Radiology Claude Loaiza, GARCIA, P.A.-C. [address] [place], [place] 55 [phone] (Wo rk) 08/22/2022 Virtual Visit Urology Gibran Ruvalcaba M.D. [address] [place], [place] 55 [phone] (Wo rk) documented as of this encounter Visit Diagnoses Not on filedocumented in this encounter Care Teams Body Team Member Relationship Specialty Start Date End Date Elsewhere, Pcp PCP - General Internal Medicine 01/14/22 documented as of this encounter
--- OUTSIDE RECORDS SUMMARY | 2022-08-09 13:39 | XMS_ITS | Encounter Summary ---
:1935 Author Organization [facility] Address [address] [place] [address] Care Team Providers Name Role Phone Elsewhere, Pcp Primary Care Provider Unavailable Reason for Referral Radiation Therapy (Routine) - Authorized Specialty Diagnoses / Procedures Referred By Contact Refer red To Contact Diagnoses Malignant Neoplasm Of Bladder (HCC) Manny Anderson M.D. [facility] Procedures Management Visit [address] [place], [place] [address] Referral ID Status Reason Start Date Expiration Date Visits V isits Requested Authorized [id number] Authorized 03/05/2022 03/05/2023 10 10 Reason for Visit Radiation Therapy (Routine) - Authorized Specialty Diagnoses / Procedures Referred By Contact Refer red To Contact Diagnoses Malignant Neoplasm Of Bladder (HCC) Manny Anderson M.D. [facility] Procedures Management Visit [address] [place] [address] Referral ID Status Reason Start Date Expiration Date Visits V isits Requested Authorized [id number] Authorized 03/05/2022 03/05/2023 10 10 Encounter Details Date Type Department Care Team Description 04/02/2022 Hospital Encounter Department of Manny Anderson Neoplasm Radiation Oncology Ashtyn Dubois Of Bladder (HCC) in [place], [address] [place], [place] [address] [facility] [address] [place], [place] [phone] (Work) [phone] Social History Tobacco Use Types Packs/Day Years [...] you attend moravian or Patient refused 2021 church services? Do you belong to any clubs or No 05/17/2022 organizations such as moravian groups, unions, fraPeach Payments or athletic groups, or school groups? 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 ([id number]) HISTORY OF PRESENT ILLNESS Mr. Henok Chery is an 86 y.o. 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 He is now receiving twice weekly radiation therapy. Treatment Course: 1xBladder Plan ID Fractions Dose / Fraction (cGy) Dose Treated (cGy) Dose Planned (cGy) First Treatment Last Treatment Elapsed Days [phone] 04/02/2022 04/02/2022 0 Course Summary 04/02/2022 04/02/2022 [...] Manny Anderson M.D. 04/02/2022 3:55 PM CDT [facility] [address] [place] [address] documented in this encounter Plan of Treatment Upcoming Encounters Date Type Specialty Care Team Description 08/20/2022 Appointment Radiology Claude Loaiza MPAS, P.A.-C. [address] [place] [address] [phone] (Wo rk) 08/20/2022 Appointment Radiology Claude Loaiza MPAS, P.A.-C. [address] [place] [address] [phone] (Wo rk) 08/22/2022 Virtual Visit Urology Gibran Ruvalcaba M.D. [address] [place] [address] [phone] (Wo rk) Scheduled Orders Name Type Priority Associated Diagnoses Order S chedule Management Visit Radiation Oncology Routine Malignant Neoplasm Once for 1 Of Bladder (HCC) Occurrences starting 04/02/2022 unti l 04/02/2022 documented as of this encounter Visit Diagnoses Diagnosis Malignant Neoplasm Of Bladder (HCC) documented in this encounter Care Teams Stenotype Operator Relationship Specialty Start Date End Date Elsewhere, Pcp PCP - General Internal Medicine 01/14/22 documented as of this encounter
--- OUTSIDE RECORDS SUMMARY | 2022-08-09 13:39 | XMS_ITS | Encounter Summary ---
:1935 Author Organization [facility] Address [address] [place] [address] Care Team Providers Name Role Phone Elsewhere, Pcp Primary Care Provider Unavailable Reason for Referral Outpatient (Routine) - Authorized Specialty Diagnoses / Procedures Referred By Contact Refer red To Contact Radiology Diagnoses Malignant Neoplasm Of Bladder (HCC) Nura David IV [facility] Procedures IR Nephrostomy Tube Exchange Left M.D. 200 [place] [address] Referral ID Status Reason Start Date Expiration Date Visits V isits Requested Authorized [id number] Authorized 05/20/2022 05/20/2023 1 1 Encounter Details Date Type Department Care Team Description 05/20/2022 Orders Only Department of Urology Nura David Malignant Neoplasm Of in Becky Batista IV, M.D. Bladder (HCC) (Primary [place] 200 [facility] Dx) 200 [place] [phone] Social History Tobacco Use Types Packs/Day Years [...] you attend zoroastrianism or Patient refused 2021 anabaptism services? Do you belong to any clubs or No 05/17/2022 organizations such as zoroastrianism groups, unions, fraRemotium or athletic groups, or school groups? 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 [address] [place] [address] [phone] (Octavio christensen) 08/20/2022 Appointment Radiology Claude Loaiza MPAS, P.A.-C. [address] [place] [address] [phone] (Octavio christensen) 08/22/2022 Virtual Visit Urology Gibran Ruvalcaba M.D. [address] [place] [address] [phone] (Octavio christensen) Scheduled Orders Name Type Priority Associated Order Schedule Diagnoses IR Nephrostomy Tube Imaging RAD - Routine (most Malignant Neop lasm Expected: Exchange Left inpatients and all Of Bladder (HCC) 10/2021 outpatients) (Approximate), Expires: 08/20/2023 documented as of this encounter Visit Diagnoses Diagnosis Malignant Neoplasm Of Bladder (HCC) - Pr imary documented in this encounter Care Teams Fork Assembler Relationship Specialty Start Date End Date Elsewhere, Pcp PCP - General Internal Medicine 01/14/22 documented as of this encounter
--- OUTSIDE RECORDS SUMMARY | 2022-08-09 13:39 | XMS_ITS | Encounter Summary ---
:1935 Author Organization [facility] Address 200 [place] [address] Care Team Providers Name Role Phone Elsewhere, Pcp Primary Care Provider Unavailable Reason for Visit Reason Comments Urinary Retention Outpatient (Routine) - Closed Specialty Diagnoses / Procedures Referred By Contact Refer red To Contact Diagnoses Hydronephrosis Malignant Neoplasm Of Bladder (HCC) Retention Urinary Armida Botello APRN, [facility] Procedures URO Urethral cath removal & voiding trial (UCO/VT) C.N.P., D.N.P. [address] [place] [phone] Referral ID Status Reason Start Date Expiration Date Visits Requ ested Visits Authorized [id number] Closed 05/17/2022 05/17/2023 1 1 Encounter Details Date Type Department Care Team Description 05/17/2022 Procedure visit Department of Urology Armida Botello APRN, C.N.P., D.N.P. [address] [place] [phone] Hydronephrosis; in [place], Lalita Dewitt R.N. 200 [place] [address] Malignant Neoplasm Of Bladder (HCC); [place] Retention Urinary [address] [place] [phone] Social History Tobacco Use Types Packs/Day Years [...] you attend protestant or Patient refused 2021 anglican services? Do you belong to any clubs or No 05/17/2022 organizations such as protestant groups, unions, IOCS or athletic groups, or school groups? 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 [address] [place] [address] [phone] (Wo rk) 08/20/2022 Appointment Radiology Claude Loaiza MPAS P.A.-C. [address] [place] [address] [phone] (Wo rk) 08/22/2022 Virtual Visit Urology Gibran Ruvalcaba M.D. [address] [place] [address] [phone] (Wo rk) documented as of this encounter Visit Diagnoses Diagnosis Hydronephrosis Malignant Neoplasm Of Bladder (HCC) Retention Urinary documented in this encounter Care Teams Shopper'S Aide Relationship Specialty Start Date End Date Elsewhere, Pcp PCP - General Internal Medicine 01/14/22 documented as of this encounter
--- OUTSIDE RECORDS SUMMARY | 2022-08-09 13:39 | XMS_ITS | Encounter Summary ---
:1935 Author Organization [facility] Address [address] [place] [address] Care Team Providers Name Role Phone Elsewhere, Pcp Primary Care Provider Unavailable Reason for Referral MRI/CAT/PET Scan (Routine) - Closed Specialty Diagnoses / Procedures Referred By Contact Refer red To Contact Radiology Diagnoses Hydronephrosis Armida Botello APRN, [facility] Procedures CT Urogram without and with IV Contrast C.N.P., D.N.P. 200 [place] [address] Referral ID Status Reason Start Date Expiration Date Visits Requ ested Visits Authorized [id number] Closed 05/17/2022 05/17/2023 1 1 utpatient (Routine) - Closed Specialty Diagnoses / Procedures Referred By Contact Refer red To Contact Diagnoses Hydronephrosis Malignant Neoplasm Of Bladder (HCC) Armida Botello APRN, [facility] Procedures URO Cystoscopy (general) C.N.P., D.N.P. [address] [place] [address] Referral ID Status Reason Start Date Expiration Date Visits Requ ested Visits Authorized [id number] Closed 05/17/2022 05/17/2023 1 1 utpatient (Routine) - Closed Specialty Diagnoses / Procedures Referred By Contact Refer red To Contact Urology Armida Botello APRN, C.N.PJluis, [facility] D.N.P. [address] [place] [phone] Referral ID Status Reason Start Date Expiration Date Visits Requ ested Visits Authorized [id number] Closed 05/17/2022 05/17/2023 1 1 utpatient (Routine) - Closed Specialty Diagnoses / Procedures Referred By Contact Refer red To Contact Diagnoses Hydronephrosis Malignant Neoplasm Of Bladder (HCC) Retention Urinary Armida Botello APRN, [facility] Procedures URO Urethral cath removal & voiding trial (UCO/VT) YolisNRichelle, D.N.P. [address] [place] [phone] Referral ID Status Reason Start Date Expiration Date Visits Requ ested Visits Authorized [id number] Closed 05/17/2022 05/17/2023 1 1 Reason for Visit Outpatient (Routine) - Closed Specialty Diagnoses / Procedures Referred By Contact Refer red To Contact Urology Manny Anderson M .D. Alamiri, Jamal M, M.B., [address] [place] [address] B.., [place] [address] [address] [place] [address] [place] [address] Phone: Fax: Referral ID Status Reason Start Date Expiration Date Visits Requ ested Visits Authorized [id number] Closed 04/16/2022 04/16/2023 1 1 Encounter Details Date Type Department Care Team Description 05/17/2022 Office Visit Department of Urology Bassam Klein Neoplasm Of Bladder (HCC) (Primary Dx); in [place], Ashtyn Hydronephrosis; [place] [address] [facility] Retention Urinary; [address] [place], [place] Diabetes Mellitus Type 2 Wit h Other Diabetic Kidney Complication Hyperglycemic (HCC) [place] [phone] Social History Tobacco Use Types Packs/Day Years [...] you attend lutheran or Patient refused 2021 buddhist services? 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 - 05/17/2022 11:00 AM CDT SUBJECTIVE REQUESTING PROVIDER Manny Anderson M.D. CHIEF COMPLAINT / REASON FOR VISIT Follow-up Patient seen on Dr. Klein's calendar HISTORY OF PRESENT ILLNESS Mr. Chery is a 86 y.o. male who presents today in follow-up. He presents in a wheelchair today accompanied by his and cnimwlyt-qy-hwh. This is a patient of the chief [...] uncomfortable for the patient and both his ocvjrsfs-uq-hnb and report he was able to urinate [...] Appointment Radiology Claude Loaiza MPAS P.A.-CJluis [address] [place] [address] [phone] (Octavio christensen) 08/20/2022 Appointment Radiology Claude Loaiza MPAS, P.A.-C. [address] [place] [address] [phone] (Octavio christensen) 08/22/2022 Virtual Visit Urology Gibran Ruvalcaba M.D. [address] [place] [address] [phone] (Octavio christensen) Scheduled Orders Name Type Priority Associated Diagnoses Order S chedule URO Urethral cath Procedure Routine Hydronephrosis Expected: removal & voiding Malignant Neoplasm Of 0 05/17/2022, Expires: trial (UCO/VT) Bladder (HCC) 08/17/2023 Retention Urinary Scheduled Referrals Name Type Priority Associated Diagnoses Order S [facility] Urology office Outpatient Referral Routine Expect [...] through the urethra. 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 Unable to transverse cystosco pe related to notable discomfort. Given patient discomfort the procedure w as evacuated. Cystoscope was removed. ??He is currently performing in termittent catheterization with 14 Russian catheter. IMPRESSION: #[address] [...] 05/17/2022 DTL Black/ mL/min/BSA 4:03 PM CDT Bahamian Comment: ----ADDITIONAL INFORMATION---- Estimated GFR calculated using [...] Address City/State/ZIP Code Phon e Number [facility] - [address] [place], [place] [address] [facility] [place] [address] Laboratories-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
--- OUTSIDE RECORDS SUMMARY | 2022-08-09 13:40 | XMS_ITS | Encounter Summary ---
:1935 Author Organization [facility] Address [address] [place] [address] Care Team Providers Name Role Phone Elsewhere, Pcp Primary Care Provider Unavailable Encounter Details Date Type Department Care Team Description 03/22/2022 Clinical Communication Department of Urology Flakita Bradshaw in Sherly Batista M.D. 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 [address] [place] [address] [phone] (Octavio christensen) 08/22/2022 Virtual Visit Urology Gibran Ruvalcaba M.D. [address] [place] [address] [phone] (Octavio christensen) documented as of this encounter Visit Diagnoses Not on filedocumented in this encounter Care Teams Photoengraving Helper Relationship Specialty Start Date End Date Elsewhere, Pcp PCP - General Internal Medicine 01/14/22 documented as of this encounter
--- OUTSIDE RECORDS SUMMARY | 2022-08-09 13:40 | XMS_ITS | Encounter Summary ---
:1935 Author Organization [facility] Address [address] [place] [address] Care Team Providers Name Role Phone Elsewhere, Pcp Primary Care Provider Unavailable Reason for Visit Reason Comments Treatment Questions Encounter Details Date Type Department Care Team Description 03/12/2022 Clinical Communication Department of Kar Whipple Urology in , Ashtyn Perdomo [place], [place] [address] [place] [address] Social History Tobacco Use Types Packs/Day Years [...] you attend jain or Patient refused 2021 samaritan services? 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 - 03/12/2022 2:[address] Rosen is unfortunately completely booked as he is preparing for group home. Another OPC provider may be available sooner [...] procedure soon. Please contact them back at [phone] to discuss the plan with them. Thanks! documented in this encounter Plan of Treatment Upcoming Encounters Date Type Specialty Care Team Description 08/20/2022 Appointment Radiology Claude Loaiza MPAS, PJluisA.-C. [address] [place] [address] [phone] (Wo rk) 08/20/2022 Appointment Radiology Claude Loaiza MPAS PTarun-C. [address] [place] [address] [phone] (Wo rk) 08/22/2022 Virtual Visit Urology Gibran Ruvalcaba M.D. [address] [place], [place] [phone] (Wo rk) documented as of this encounter Visit Diagnoses Not on filedocumented in this encounter Care Teams Director Of Application Development Relationship Specialty Start Date End Date Elsewhere, Pcp PCP - General Internal Medicine 01/14/22 documented as of this encounter
--- OUTSIDE RECORDS SUMMARY | 2022-08-09 13:40 | XMS_ITS | Encounter Summary ---
:1935 Author Organization [facility] Address [address] [place] [address] Care Team Providers Name Role Phone Elsewhere, Pcp Primary Care Provider Unavailable Encounter Details Date Type Department Care Team Description 03/21/2022 Hospital Encounter Department of [place] [facility]; Laboratory Medicine Mirlande Arias IV Neoplasm Of Bladder (HCC) and PathologyAshtyn [address] [place] [address], in [facility] [address] [place] [phone] [place] [address] (Work) [place], [place] [phone] (Fax) [phone] Social History Tobacco Use Types Packs/Day Years [...] or relatives? How often do you attend sabianist or Patient refused 2021 latter day services? 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 [address] [place], [place] [phone] (Wo rk) 08/20/2022 Appointment Radiology Claude Loaiza MPAS, P.A.-C. [address] [place], [place] [phone] (Wo rk) 08/22/2022 Virtual Visit Urology Gibran Ruvalcaba M.D. [address] [place], [place] [phone] (Wo rk) documented as of this encounter Procedures Procedure Name Priority Date/Time Associated Comments Diagnosis CO OSMOLALITY ASSAY Routine 03/21/2022 12:08 Resu lts [...] (ABNORMAL) Dipstick, Urine (03/21/2022 12:08 PM CDT) [facility] gist Method Time Signature Hemoglobin, Large [...] M.D. LAB URINE ORDERABLES Performing Organization Address City/[facility]/ZIP Code Phon e Number [facility] - [address] [place], [place] [address] [facility] [place] [address] Osmolality, Urine (03/21/2022 12:08 PM CDT) P athologist Signature Osmolality, U 429 150 - 1150 03/21/2022 DTL mOsm/kg 12:38 PM CDT Specimen Anatomical Collection Method Collection Time Receive d Time (Source) Location / / Volume Laterality Urine 03/21/2022 12:08 03/21/2022 PM CDT 12:08 PM CDT Nura David IV, M.D. LAB URINE ORDERABLES Performing Organization Address City/[facility]/ZIP Code Phon e Number [facility] - [address] [place], [place] [address] [place] [address] pH, Random, Urine (03/21/2022 12:08 PM CDT) P athologist Signature pH, Random, U 6.7 4.5 - 8.0 03/21/2022 DTL 12:38 PM CDT Specimen Anatomical Collection Method Collection Time Receive d Time (Source) Location / / Volume Laterality Urine 03/21/2022 12:08 03/21/2022 PM CDT 12:08 PM CDT Nura David IV, M.D. LAB URINE ORDERABLES Performing Organization Address City/[facility]/ZIP Code Phon e Number [facility] - 200 [place], [place] [address] [place] [address] (ABNORMAL) Microscopic Manual (03/21/2022 12:08 PM [...] City/State/ZIP Code Phon e Number [facility] - [address] [place] [address] [facility] [place] [address] Laboratories-[facility] [address] [facility] (ABNORMAL) Urinalysis with Microscopic: Urine, Midstream (03/21/2022 12:08 PM CDT) [facility] Method Time Signature Source Urine, Urine, [...] DTL Hr Protein 2:20 PM CDT Predicted [id number] mg/24 h 03/21/2022 DTL Range 2:20 PM CDT Specimen Anatomical Collection Method Collection Time Receive d Time (Source) Location / / Volume Laterality Urine (Urine, 03/21/2022 12:08 03/21/2022 Midstream) PM CDT 12:08 PM CDT Nura David IV, M.D. LAB URINE ORDERABLES Performing Organization Address City/State/ZIP Code Phon e Number [facility] - [address] [place], [place] [address] [facility] [place] [address] Laboratories-[facility] [address] documented in this encounter Visit Diagnoses Diagnosis Retention Urinary Malignant Neoplasm Of Bladder (HCC) documented in this encounter Care Teams Farm Worker Relationship Specialty Start Date End Date Elsewhere, Pcp PCP - General Internal Medicine 01/14/22 documented as of this encounter
--- OUTSIDE RECORDS SUMMARY | 2022-08-09 13:40 | XMS_ITS | Encounter Summary ---
:1935 Author Organization [facility] Address [address] [place] [address] Care Team Providers Name Role Phone Elsewhere, Pcp Primary Care Provider Unavailable Encounter Details Date Type Department Care Team Description 03/27/2022 Clinical Communication Department of Urology Lisbeth Nguyen in [facility] [phone] [address] [facility] ([place]) [place] [address] Social History Tobacco Use Types Packs/Day Years [...] or relatives? How often do you attend catholic or Patient refused 2021 mormon services? 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 [address] [place] [address] [phone] (Wo rk) 08/20/2022 Appointment Radiology Claude Loaiza MPAS P.AJluis-C. [address] [place] [address] [phone] (Wo rk) 08/22/2022 Virtual Visit Urology Gibran Ruvalcaba M.D. [address] [place] [address] [phone] (Wo rk) documented as of this encounter Visit Diagnoses Not on filedocumented in this encounter Care Teams Health Care Sanitary Technician Relationship Specialty Start Date End Date Elsewhere, Pcp PCP - General Internal Medicine 01/14/22 documented as of this encounter
--- OUTSIDE RECORDS SUMMARY | 2022-08-09 13:40 | XMS_ITS | Encounter Summary ---
:1935 Author Organization [facility] Address [address] [place] [address] Care Team Providers Name Role Phone Elsewhere, Pcp Primary Care Provider Unavailable Reason for Visit Reason Comments Appointment Pre-visit Testing Orders Encounter Details Date Type Department Care Team Description 03/26/2022 Clinical Communication Department of Adonay Sethi; Urology in [place] Harris, Pre-visit Test aidee Batista, Ph.D. Orders [place] [address] [place] [address] Social History Tobacco Use Types Packs/Day Years [...] you attend sabianist or Patient refused 2021 adventism services? 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 Lucille states they cannot do that all . Lucille would like a call to discuss what is happening @ [phone]. Thank you. documented in this encounter Plan of Treatment Upcoming Encounters Date Type Specialty Care Team Description 08/20/2022 Appointment Radiology Claude Loaiza MPAS, PJluisA.-C. [address] [place], [place] [phone] (Octavio christensen) 08/20/2022 Appointment Radiology Claude Loaiza MPAS, P.A.-C. [address] [place] [phone] (Octavio christensen) 08/22/2022 Virtual Visit Urology Gibran Ruvalcaba M.D. [address] [place], [place] [phone] (Octavio christensen) documented as of this encounter Visit Diagnoses Not on filedocumented in this encounter Care Teams Information Security Relationship Specialty Start Date End Date Elsewhere, Pcp PCP - General Internal Medicine 01/14/22 documented as of this encounter
--- OUTSIDE RECORDS SUMMARY | 2022-08-09 13:40 | XMS_ITS | Encounter Summary ---
:1935 Author Organization [facility] Address [address] [place] [address] Care Team Providers Name Role Phone Elsewhere, Pcp Primary Care Provider Unavailable Reason for Visit Reason Comments Procedure Encounter Details Date Type Department Care Team Description 03/27/2022 Clinical Communication Department of Manny Anderson [facility] [address] [facility] [address] [place] [phone] [phone] Social History Tobacco Use Types Packs/Day Years [...] or relatives? How often do you attend holiness or Patient refused 2021 lutheran services? 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 200 [place], [place] [phone] (Wo rk) 08/22/2022 Virtual Visit Urology Gibran Ruvalcaba M.D. 200 [place], [place] [phone] (Wo rk) documented as of this encounter Visit Diagnoses Diagnosis Malignant Neoplasm Of Bladder (HCC) - Pr imary documented in this encounter Care Teams Material Cutter Relationship Specialty Start Date End Date Elsewhere, Pcp PCP - General Internal Medicine 01/14/22 documented as of this encounter
--- OUTSIDE RECORDS SUMMARY | 2022-08-09 13:40 | XMS_ITS | Encounter Summary ---
:1935 Author Organization [facility] Address [address] [place] [address] Care Team Providers Name Role Phone Elsewhere, Pcp Primary Care Provider Unavailable Reason for Visit Outpatient (Routine) - Closed Specialty Diagnoses / Procedures Referred By Contact Refer red To Contact Diagnoses Benign Prostatic Hyperplasia Hypertrophy With Obstruction Flakita Bradshaw M.D. Procedures URO Urodynamic study (with flow) [address] [place] [phone] Referral ID Status Reason Start Date Expiration Date Visits Requ ested Visits Authorized [id number] Closed 03/21/2022 03/21/2023 1 1 Encounter Details Date Type Department Care Team Description 03/22/2022 Procedure visit Department of Flakita Bradshaw M.D. 200 [place] [phone] Benign Prostatic Urology in Bassam Klein M.D. [address] [place] [phone] Hyperplasia [place], [place] Kush Dumont [address] [place] [phone] Hypertrophy With [address] [facility] [phone] Social History Tobacco Use Types Packs/Day Years [...] attend roman catholic or Patient refused 2021 protestant services? Do you belong to any clubs or No 05/17/2022 organizations such as roman catholic groups, unions, fraSerious Parody or athletic groups, or school groups? 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 Flow study prior to procedure: No Amount of urine drained from bladder prior to study: 12 mls Catheter: 6 Maori Position: Sitting Fill rate: 25 ml/min EMG [...] Appointment Radiology Claude Loaiza MPAS PJluisAJluis-C. [address] [place] [phone] (Octavio christensen) 08/20/2022 Appointment Radiology Claude Loaiza MPAS, P.AJluis-C. [address] [place] [phone] (Wo fermin) 08/22/2022 Virtual Visit Urology Gibran Ruvalcaba M.D. [address] [place] [address] [place] [phone] (Wo rk) documented as [...] Obstruction documented in this encounter Care Teams Electronic Organ Technician Relationship Specialty Start Date End Date Elsewhere, Pcp PCP - General Internal Medicine 01/14/22 documented as of this encounter
--- OUTSIDE RECORDS SUMMARY | 2022-08-09 13:40 | XMS_ITS | Encounter Summary ---
:1935 Author Organization [facility] Address [address] [place] [address] Care Team Providers Name Role Phone Elsewhere, Pcp Primary Care Provider Unavailable Encounter Details Date Type Department Care Team Description 03/26/2022 Clinical Communication Department of Radiology Harmony Starks in [facility] lonny A, RJluisN. [address] [place] [address] [address] [place] [phone] Social History Tobacco Use Types Packs/Day Years [...] you attend temple or Patient refused 2021 amish services? 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 Sethi to schedule Mr. Chery for Suprapubic catheter placement. I have Mr. Chery scheduled to undergo Suprapubic catheter placement at [facility] with Dr. Poe on 04/02/2022. The patient is scheduled to report to [facility], [facility] Anthony Art MD the morning of the procedure. ??? Patient is not on blood thinners. ??? Patient is diabetic. ??? Villarreal catheter and left nephrostomy tube currently in place. ??? COVID 19 PCR testing to be completed on: 04/01/2022. ??? Urology nurse education scheduled on 04/01/2022. ??? INSTRUMENT REPAIRER HELPER needed for procedure. This procedure is scheduled [...] rescheduled to undergo Suprapubic catheter placement at [facility] with Dr. Wu on 05/07/2022. The patient is scheduled to report to [facility], [facility] Anthony Art MD at 9:00 a.m. the morning of the procedure. ??? COVID 19 PCR testing to be completed on: 05/03/2022. ??? INSTRUMENT REPAIRER HELPER needed for procedure. documented in this encounter Plan of Treatment Upcoming Encounters Date Type Specialty Care Team Description 08/20/2022 Appointment Radiology Claude Loaiza, GARCIA, P.A.-C. [address] [place] [phone] (Wo rk) 08/20/2022 Appointment Radiology Claude Loaiza MPAS, P.A.-C. [address] [place] [address] [phone] (Wo rk) 08/22/2022 Virtual Visit Urology Gibran Ruvalcaba M.D. [address] [place] [phone] (Wo rk) documented as of this encounter Visit Diagnoses Not on filedocumented in this encounter Care Teams Tag Marker Relationship Specialty Start Date End Date Elsewhere, Pcp PCP - General Internal Medicine 01/14/22 documented as of this encounter
--- OUTSIDE RECORDS SUMMARY | 2022-08-09 13:40 | XMS_ITS | Encounter Summary ---
:1935 Author Organization [facility] Address [address] [place] [address] Care Team Providers Name Role Phone Elsewhere, Pcp Primary Care Provider Unavailable Encounter Details Date Type Department Care Team Description 03/22/2022 Clinical Communication Department of Urology Flakita Bradshaw in Sherly Batista M.D. [address] [place] [phone] Social History Tobacco Use Types Packs/Day Years [...] you attend islam or Patient refused 2021 presybeterian services? 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 [address] [place] [phone] (Wo rk) 08/20/2022 Appointment Radiology Claude Loaiza MPAS, P.A.-C. [address] [place] [phone] (Wo rk) 08/22/2022 Virtual Visit Urology Gibran Ruvalcaba M.D. [address] [place] [phone] (Wo rk) documented as of this encounter Visit Diagnoses Not on filedocumented in this encounter Care Teams Oil Burner Journeyman Relationship Specialty Start Date End Date Elsewhere, Pcp PCP - General Internal Medicine 01/14/22 documented as of this encounter
--- OUTSIDE RECORDS SUMMARY | 2022-08-09 13:40 | XMS_ITS | Encounter Summary ---
:1935 Author Organization [facility] Address [address] [place] [address] Care Team Providers Name Role Phone Elsewhere, Pcp Primary Care Provider Unavailable Encounter Details Date Type Department Care Team Description 03/21/2022 Hospital Encounter Department of Adrian David Urinary; Laboratory Medicine Mirlande Arias IV Neoplasm Of Bladder (HCC) and Pathology, [facility], in [address] [place] [phone] 200 [facility] [phone] [place], [place] (Work) [phone] Social History Tobacco Use [...] Date Recorded Male 09/10/2018 8:41 AM RN RADIATION ONCOLOGY documented as of this encounter Medications at [...] Radiology Claude Loaiza MPAS, P.A.-C. [address] [place], [place] [phone] (Wo rk) 08/20/2022 Appointment Radiology Claude Loaiza MPAS, P.A.-C. [address] [place], [place] [phone] (Wo rk) 08/22/2022 Virtual Visit Urology Gibran Ruvalcaba M.D. 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
--- OUTSIDE RECORDS SUMMARY | 2022-08-09 13:40 | XMS_ITS | Encounter Summary ---
:1935 Author Organization [facility] Address [address] [place] [address] Care Team Providers Name Role Phone Elsewhere, Pcp Primary Care Provider Unavailable Reason for Referral Outpatient (Routine) - Authorized Specialty Diagnoses / Procedures Referred By Contact Refer red To Contact Urology Kimberly Sethi M.D., Ph.D. [address] [phone] Referral ID Status Reason Start Date Expiration Date Visits V isits Requested Authorized [id number] Authorized 03/25/2022 03/25/2023 1 1 Encounter Details Date Type Department Care Team Description 03/25/2022 Orders Only Department of Urology Kimberly Sethi Rete ntion Urinary in [facility] lonny Chamorro, Ph.D. Chronic (Primary Dx) [address] [place] [phone] Social History Tobacco Use Types Packs/Day Years [...] you attend advent or Patient refused 2021 christian services? 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 [address] [place] [phone] (Wo rk) 08/20/2022 Appointment Radiology Claude Loaiza MPAS, P.A.-C. [address] [place] [phone] (Octavio rk) 08/22/2022 Virtual Visit Urology Gibran Ruvalcaba M.D. 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
--- OUTSIDE RECORDS SUMMARY | 2022-08-09 13:40 | XMS_ITS | Encounter Summary ---
:1935 Author Organization [facility] Address [address] [place] [address] Care Team Providers Name Role Phone Elsewhere, Pcp Primary Care Provider Unavailable Reason for Referral Outpatient (Routine) - Closed Specialty Diagnoses / Procedures Referred By Contact Refer red To Contact Radiation Oncology Iris Mishra P.A.-C., [facility] [address] [place] [phone] Referral ID Status Reason Start Date Expiration Date Visits Requ ested Visits Authorized [id number] Closed 03/25/2022 03/25/2023 1 1 Encounter Details Date Type Department Care Team Description 03/25/2022 Orders Only Department of Radiation Iris Mishra [facility] Neoplasm Of Oncology in [place], Eduardo, M.S. Bladder (HCC) (Primary [place] [address] [facility] Dx) [address] [place] [phone] Social History Tobacco Use Types Packs/Day Years [...] you attend jew or Patient refused 2021 catholic services? Do you belong to any clubs or No 05/17/2022 organizations such as jew groups, unions, fraCloudCar or athletic groups, or school groups? 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 [address] [place] [phone] (Octavio christensen) 08/20/2022 Appointment Radiology Claude Loaiza MPAS, P.A.-C. [address] [place] [phone] (Octavio christensen) 08/22/2022 Virtual Visit Urology Gibran Ruvalcaba M.D. [address] [place] [phone] (Octavio christensen) Scheduled Referrals Name Type Priority Associated Diagnoses Order S jermain Radiation Oncology Outpatient Referral Routine Ex pected: office visit 03/26/2022 (clinic) (Approximate), Expires: 03/25/2023 documented as of this encounter Visit Diagnoses Diagnosis Malignant Neoplasm Of Bladder (HCC) - Pr imary documented in this encounter Care Teams Cable Tool Operator Relationship Specialty Start Date End Date Elsewhere, Pcp PCP - General Internal Medicine 01/14/22 documented as of this encounter
--- OUTSIDE RECORDS SUMMARY | 2022-08-09 13:40 | XMS_ITS | Encounter Summary ---
:1935 Author Organization [facility] Address [address] [place] [address] Care Team Providers Name Role Phone Elsewhere, Pcp Primary Care Provider Unavailable Encounter Details Date Type Department Care Team Description 03/24/2022 Clinical Communication Department of Urology Hector Sethi, in [facility] lonny Chamorro, Ph.D. [address] [place] [address] Social History Tobacco Use Types Packs/Day Years [...] you attend sabianist or Patient refused 2021 alevism services? 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 - 03/24/2022 8:33 AM CDT [...] Appointment Radiology Claude Loaiza MPAS, P.A.-C. [address] [place] [phone] (Octavio christensen) 08/20/2022 Appointment Radiology Claude Loaiza MPAS, P.A.-C. [address] [place] [phone] (Octavio rk) 08/22/2022 Virtual Visit Urology Gibran Ruvalcaba M.D. [address] [place] [phone] (Octavio christensen) documented as of this encounter Visit Diagnoses Not on filedocumented in this encounter Care Teams Publicity Consultant Relationship Specialty Start Date End Date Elsewhere, Pcp PCP - General Internal Medicine 01/14/22 documented as of this encounter
--- OUTSIDE RECORDS SUMMARY | 2022-08-09 13:40 | XMS_ITS | Encounter Summary ---
:1935 Author Organization [facility] Address [address] [place] [address] Care Team Providers Name Role Phone Elsewhere, Pcp Primary Care Provider Unavailable Encounter Details Date Type Department Care Team Description 03/27/2022 Clinical Communication Department of Harrison Lennon, Radiation Oncology in [place], M.S. [facility] [address] [place] [address] [address] [place] [phone] Social History Tobacco Use Types Packs/Day Years [...] you attend shinto or Patient refused 2021 christianity services? 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 I informed her that we will keep the appointments as outlined above but can change them if they desire. Harrison Lennon M.D., M.S. documented in this encounter Plan of Treatment Upcoming Encounters Date Type Specialty Care Team Description 08/20/2022 Appointment Radiology Claude Loaiza MPAS, P.A.-C. [address] [place], [place] [phone] (Octavio christensen) 08/20/2022 Appointment Radiology Claude Loaiza MPAS, P.A.-C. [address] [place], [place] [phone] (Octavio christensen) 08/22/2022 Virtual Visit Urology Gibran Ruvalcaba M.D. [address] [place], [place] [phone] (Wo rk) documented as of this encounter Visit Diagnoses Not on filedocumented in this encounter Care Teams Director Health Relationship Specialty Start Date End Date Elsewhere, Pcp PCP - General Internal Medicine 01/14/22 documented as of this encounter
--- OUTSIDE RECORDS SUMMARY | 2022-08-09 13:40 | XMS_ITS | Encounter Summary ---
:[address] [facility] Address [address] [place] [address] Care Team Providers Name Role Phone Elsewhere, Pcp Primary Care Provider Unavailable Encounter Details Date Type Department Care Team Description 04/02/2022 Hospital Encounter Department of Radiation Calin [place], [facility] [place] [facility] [place] [address] [place] [phone] Social History Tobacco Use Types Packs/Day Years [...] you attend yazidi or Patient refused 2021 yazidism services? 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 [address] [place], [place] [phone] (Wo rk) 08/20/2022 Appointment Radiology Claude Loaiza, GARCIA, P.A.-C. [address] [place], [place] [phone] (Wo rk) 08/22/2022 Virtual Visit Urology Gibran Ruvalcaba M.D. [address] [place], [place] [phone] (Wo rk) documented as of this encounter Visit Diagnoses Not on filedocumented in this encounter Care Teams Premium Auditor Relationship Specialty Start Date End Date Elsewhere, Pcp PCP - General Internal Medicine 01/14/22 documented as of this encounter
--- OUTSIDE RECORDS SUMMARY | 2022-08-09 13:40 | XMS_ITS | Encounter Summary ---
:1935 Author Organization [facility] Address [address] [place] [address] Care Team Providers Name Role Phone Elsewhere, Pcp Primary Care Provider Unavailable Encounter Details Date Type Department Care Team Description 03/26/2022 Orders Only Department of Urology in Kimberly Sethi M .D., [place], [place] Ph.D. [address] [place] [phone] Social History Tobacco Use Types Packs/Day [...] you attend voodoo or Patient refused 2021 caodaism services? 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 [address] [place] [phone] (Wo rk) 08/20/2022 Appointment Radiology Claude Loaiza MPAS P.A.-C. [address] [place] [phone] (Wo rk) 08/22/2022 Virtual Visit Urology Gibran Ruvalcaba M.D. [address] [place] [phone] (Wo rk) documented as of this encounter Visit Diagnoses Not on filedocumented in this encounter Care Teams Professor Of Sociology Relationship Specialty Start Date End Date Elsewhere, Pcp PCP - General Internal Medicine 01/14/22 documented as of this encounter
--- OUTSIDE RECORDS SUMMARY | 2022-08-09 13:40 | XMS_ITS | Encounter Summary ---
:1935 Author Organization [facility] Address [address] [place] [address] Care Team Providers Name Role Phone Elsewhere, Pcp Primary Care Provider Unavailable Reason for Referral Outpatient (Routine) - Closed Specialty Diagnoses / Procedures Referred By Contact Refer red To Contact Radiation Oncology Iris Mishra P.A.-C., [facility] [address] [place] [phone] Referral ID Status Reason Start Date Expiration Date Visits Requ ested Visits Authorized [id number] Closed 03/25/2022 03/25/2023 1 1 Reason for Visit Outpatient (Routine) - Closed Specialty Diagnoses / Procedures Referred By Contact Refer red To Contact Radiation Oncology Iris Mishra P.A.-C., [facility] [address] [place] [phone] Referral ID Status Reason Start Date Expiration Date Visits Requ ested Visits Authorized [id number] Closed 03/25/2022 03/25/2023 1 1 Encounter Details Date Type Department Care Team Description 03/26/2022 Hospital Encounter Department of Manny Anderson Neoplasm Radiation Oncology Ashtyn Dubois Of Bladder (HCC) in [place] [address] [facility] (Primary Dx) [place], [place] [address] [facility] [address] [place], [place] [phone] (Work) [phone] Social History Tobacco Use Types Packs/Day Years [...] you attend orthodoxy or Patient refused 2021 mormon services? 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 Manny Anderson Home address: [address] [place] [phone] SUBJECTIVE History of present illness Mr. Henok [...] 01/24/2022 Other The patient presented to the [facility] ED with a chief complaint of [...] was performed by Dr. Kurtis Bach at [facility] and demonstrated a large medial lobe of the prostate, 3 cm, with papillary bladder mass, 5 cm, the left bladder wall obstructing the left UO. The patient reported a history of gross hematuria for months and difficulty emptying his bladder. Discussed that the patient ideally would need TURBT and bilateral retrogrades. 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 02/08/2022 Other Urology consultation at [facility] with Dr. David Day who recommended proceeding [...] or concerns. Dr. Manny Anderson is the account consultant; please see attestation for further details. [...] one of our medical oncology colleagues at [facility] at the end of his treatment course. [...] Manny Anderson M.D. 03/26/2022 4:46 PM CDT [facility] [address] [place] [address] documented in this encounter Plan of Treatment Upcoming Encounters Date Type Specialty Care Team Description 08/20/2022 Appointment Radiology Claude Loaiza MPAS, P.A.-C. [address] [place] [phone] (Wo rk) 08/20/2022 Appointment Radiology Claude Loaiza MPAS, P.A.-C. [address] [place] [address] [phone] (Wo rk) 08/22/2022 Virtual Visit Urology Gibran Ruvalcaba M.D. [address] [place] [address] [phone] (Wo rk) Scheduled Referrals Name Type Priority Associated Order Schedule Diagnoses Radiation Oncology Outpatient Referral Routine On ce for 1 office visit Occurrences sta rting (clinic) 03/26/2022 unti l 03/26/2022 documented as of this encounter Visit Diagnoses Diagnosis Malignant Neoplasm Of Bladder (HCC) - Pr imary documented in this encounter Care Teams Route Supervisor Relationship Specialty Start Date End Date Elsewhere, Pcp PCP - General Internal Medicine 01/14/22 documented as of this encounter
--- OUTSIDE RECORDS SUMMARY | 2022-08-09 13:40 | XMS_ITS | Encounter Summary ---
:1935 Author Organization [facility] Address [address] [place] [address] Care Team Providers Name Role Phone Elsewhere, Pcp Primary Care Provider Unavailable Encounter Details Date Type Department Care Team Description 03/24/2022 Orders Only Department of Urology Kimberly Sethi Rete ntion Urinary in [facility] lonny Chamorro, Ph.D. Chronic (Primary Dx) [address] [place] [address] Social History Tobacco Use Types Packs/Day Years [...] you attend baptism or Patient refused 2021 buddhist services? 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 [address] [place] [address] [phone] (Wo rk) 08/20/2022 Appointment Radiology Claude Loaiza MPAS, P.A.-C. [address] [place] [phone] (Wo rk) 08/22/2022 Virtual Visit Urology Gibran Ruvalcaba M.D. [address] [place], [place] 55 [phone] (Wo rk) Scheduled Orders [...] Primary documented in this encounter Care Teams Menhaden Fishing Crew Member Relationship Specialty Start Date End Date Elsewhere, Pcp PCP - General Internal Medicine 01/14/22 documented as of this encounter
--- OUTSIDE RECORDS SUMMARY | 2022-08-09 13:40 | XMS_ITS | Encounter Summary ---
:1935 Author Organization [facility] Address [address] [place] [address] Care Team Providers Name Role Phone Elsewhere, Pcp Primary Care Provider Unavailable Reason for Referral Radiation Therapy (Routine) - Closed Specialty Diagnoses / Procedures Referred By Contact Refer red To Contact Diagnoses Malignant Neoplasm Of Bladder (HCC) Manny Anderson [facility]. [facility] Region Procedures Initial Rad Onc Treatment Planning CT Simulation Initial Rad Onc Treatment Planning CT Simulation [address] [place], [place] [address] Referral ID Status Reason Start Date Expiration Date Visits Requ ested Visits Authorized [id number] Closed 03/05/2022 03/05/2023 1 1 Reason for Visit Radiation Therapy (Routine) - Closed Specialty Diagnoses / Procedures Referred By Contact Refer red To Contact Diagnoses Malignant Neoplasm Of Bladder (HCC) Manny Anderson M.D. [facility] Region Procedures Initial Rad Onc Treatment Planning CT Simulation Initial Rad Onc Treatment Planning CT Simulation [address] [place] [address] Referral ID Status Reason Start Date Expiration Date Visits Requ ested Visits Authorized [id number] Closed 03/05/2022 03/05/2023 1 1 Encounter Details Date Type Department Care Team Description 03/26/2022 Hospital Encounter Department of Manny Anderson Neoplasm Radiation Oncology L, M.D. Of Bladder (HCC) in [place], [facility] [address] [place], [place] [address] [facility] [address] [place], [place] [phone] (Work) [phone] Social History Tobacco Use Types Packs/Day Years [...] you attend bahai or Patient refused 2021 christianity services? 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 1 500 mg on Fri-Th 0 10/27/2017 mg capsule 2000 mg on [...] planning. CT images were transferred to the Nov[employer] treatment planning system, after a reference isocenter was determined and marked. Segmentation and treatment planning will take place priorto treatment delivery. Patient set up and imaging was appropriate and completed without incident. Glass Installer Technician use:No documented in this encounter Plan of Treatment Upcoming Encounters Date Type Specialty Care Team Description 08/20/2022 Appointment Radiology Claude Loaiza MPAS, P.A.-CJluis [address] [place] [address] [phone] (Wo rk) 08/20/2022 Appointment Radiology Claude Loaiza MPAS, P.A.-C. [address] [place] [address] [phone] (Wo rk) 08/22/2022 Virtual Visit Urology Gibran Ruvalcaba M.D. [address] [place] [address] [phone] (Wo rk) documented as of [...] Organization Address City/State/ZIP Code Phon e Number JUAN DIEGO [place]O [place] N[place] documented in this encounter Visit Diagnoses Diagnosis Malignant Neoplasm Of Bladder (HCC) documented in this encounter Care Teams Therapeutic Activities Services Worker Relationship Specialty Start Date End Date Elsewhere, Pcp PCP - General Internal Medicine 01/14/22 documented as of this encounter
--- OUTSIDE RECORDS SUMMARY | 2022-08-09 13:40 | XMS_ITS | Encounter Summary ---
:1935 Author Organization [facility] Address [address] [place] [address] Care Team Providers Name Role Phone Elsewhere, Pcp Primary Care Provider Unavailable Reason for Referral Outpatient (Routine) - Closed Specialty Diagnoses / Procedures Referred By Contact Refer red To Contact Diagnoses Benign Prostatic Hyperplasia Hypertrophy With Obstruction Flakita Bradshaw M.D. Procedures URO Urodynamic study (with flow) [address] [place] [phone] Referral ID Status Reason Start Date Expiration Date Visits Requ ested Visits Authorized [id number] Closed 03/21/2022 03/21/2023 1 1 Reason for Visit Outpatient (Routine) - Closed Specialty Diagnoses / Procedures Referred By Contact Refer red To Contact Urology Diagnoses Retention Urinary Nura David IV [facility] Ashtyn 200 [place] [address] Referral ID Status Reason Start Date Expiration Date Visits Requ ested Visits Authorized [id number] Closed 02/27/2022 02/27/2023 1 1 Encounter Details Date Type Department Care Team Description 03/21/2022 Comprehensive Visit Department of Bassam Klein gn Prostatic Hyperplasia Hypertrophy With Obstruction (Primary Dx); Urology in S, M.D. Retention Urinary [place], 200 [place], [place] 200 [facility] [address] [place], [place] [phone] (Work) [phone] Social History Tobacco Use Types Packs/Day Years [...] attend jehovah's witness or Patient refused 2021 nondenominational services? 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 [address] [place] [address] CHIEF COMPLAINT Urinary retention Supervised by Dr. Klein HISTORY OF PRESENT ILLNESS Mr. Chery is a pleasant 86 y.o. male who presents today for evaluation of urinary retention. He is accompanied today by his and [id number]. For further details regarding his bladder cancer [...] urinary incontinence. He currently has a [address] He denied any significant [...] Date/Time Bacterial Culture, Aerobic + Susc, Urine [[id number]] Collected: 02/27/22 1120 Lab Status: Final result Specimen: Urine, Indwelling Catheter Updated: 02/28/22 08 Urine Culture No growth after 1 day of incubation. SARS Coronavirus 2, PCR Rapid, V [[id number]] Collected: 02/20/22 1939 Lab Status: Final result [...] at the following links: For Healthcare Providers: https://www.fda.gov/media/390565/download For Patients: https://www.Getbazza.gov/media/044955/download SARS Coronavirus 2, Source, Rapid Swab, Nasopharynx [...] per Echocardiography Contrast Administration Protocol Reference Document [id number]. Patient met an inclusion criterion and did [...] meet Mr. Chery, his , and his [id number]-afe in clinic today for further discussion of [...] Radiology Claude Loaiza MPAS P.A.-C. [address] [place], [place] 55 [phone] (Octavio christensen) 08/20/2022 Appointment Radiology Claude Loaiza MPAS P.A.-C. [address] [place] [phone] (Octavio rk) 08/22/2022 Virtual Visit Urology Gibran Ruvalcaba M.D. [address] [place], [place] [phone] (Octavio christensen) documented as [...] Obstruction documented in this encounter Care Teams Legal Billing Clerk Relationship Specialty Start Date End Date Elsewhere, Pcp PCP - General Internal Medicine 01/14/22 documented as of this encounter
--- OUTSIDE RECORDS SUMMARY | 2022-08-09 13:40 | XMS_ITS | Encounter Summary ---
:1935 Author Organization [facility] Address [address] [place] [address] Care Team Providers Name Role Phone Elsewhere, Pcp Primary Care Provider Unavailable Encounter Details Date Type Department Care Team Description 03/26/2022 Orders Only Department of Harmony Story N eoplasm Of Bladder (HCC) (Primary Dx); Radiology in A, R.N. Negative COVID-19 Test (Contact With And (Suspected) Exposure To COVID-19); [place], [place] [address] [facility] Encounter For Preprocedural Laboratory E xamination (COVID-19) [address] [place] [phone] Social History Tobacco Use Types Packs/Day Years [...] you attend jew or Patient refused 2021 orthodox services? 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 [address] [place] [phone] (Wo rk) 08/20/2022 Appointment Radiology Claude Loaiza MPAS, P.A.-C. [address] [place] [address] [phone] (Wo rk) 08/22/2022 Virtual Visit Urology Gibran Ruvalcaba M.D. [address] [place] [phone] (Wo rk) Scheduled Orders Name [...] (COVID-19) documented in this encounter Care Teams Manager Ecommerce Relationship Specialty Start Date End Date Elsewhere, Pcp PCP - General Internal Medicine 01/14/22 documented as of this encounter
--- OUTSIDE RECORDS SUMMARY | 2022-08-09 13:40 | XMS_ITS | Encounter Summary ---
:1935 Author Organization [facility] Address [address] [place] [address] Care Team Providers Name Role Phone Elsewhere, Pcp Primary Care Provider Unavailable Reason for Visit Outpatient (Routine) - Canceled Specialty Diagnoses / Procedures Referred By Contact Refer red To Contact Radiology Diagnoses Retention Urinary Chronic Kimberly Sethi M.D., [facility] Procedures IR Genitourinary Procedure Ph.D. 200 [place] [address] Referral ID Status Reason Start Date Expiration Date Visits V isits Requested Authorized [id number] Canceled 03/25/2022 03/25/2023 1 1 Encounter Details Date Type Department Care Team Description 04/02/2022 Hospital Encounter Department of Kimberly Sethi M.D., Ph.D. Canceled (Patient: Radiology in Shoaib Poe M.D. [address] [place] [phone] Request) [place], [place] [address] [place] [phone] Social History Tobacco Use Types Packs/Day Years [...] or relatives? How often do you attend anabaptism or Patient refused 2021 worship services? 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 [address] [place] [address] [phone] (Wo rk) 08/20/2022 Appointment Radiology Claude Loaiza MPAS, P.A.-C. [address] [place] [address] [phone] (Wo rk) 08/22/2022 Virtual Visit Urology Gibran Ruvalcaba M.D. [address] [place], [place] 55 [phone] (Wo rk) documented as of this encounter Visit Diagnoses Not on filedocumented in this encounter Care Teams Clock And Watch Hands Painter Relationship Specialty Start Date End Date Elsewhere, Pcp PCP - General Internal Medicine 01/14/22 documented as of this encounter
--- OUTSIDE RECORDS SUMMARY | 2022-08-09 13:41 | XMS_ITS | Encounter Summary ---
:1935 Author Organization [facility] Address [address] [place] [address] Care Team Providers Name Role Phone Elsewhere, Pcp Primary Care Provider Unavailable Encounter Details Date Type Department Care Team Description 03/08/2022 Clinical Communication Department of Harrison Lennon, Radiation Oncology in [place], M.S. [facility] [address] [place] [address] [address] [place] [phone] Social History Tobacco Use Types Packs/Day Years [...] attend oriental orthodox or Patient refused 2021 hinduism services? 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 [address] [place] [address] [phone] (Wo rk) 08/20/2022 Appointment Radiology Claude Loaiza MPAS, P.A.-C. [address] [place] [address] [phone] (Wo rk) 08/22/2022 Virtual Visit Urology Gibran Ruvalcaba M.D. [address] [place] [address] 55 [phone] (Wo rk) documented as of this encounter Visit Diagnoses Not on filedocumented in this encounter Care Teams Lithographer Helper Relationship Specialty Start Date End Date Elsewhere, Pcp PCP - General Internal Medicine 01/14/22 documented as of this encounter
--- OUTSIDE RECORDS SUMMARY | 2022-08-09 13:41 | XMS_ITS | Encounter Summary ---
:[address] [facility] Address [address] [place] [address] Care Team Providers Name Role Phone Elsewhere, Pcp Primary Care Provider Unavailable Encounter Details Date Type Department Care Team Description 02/25/2022 Clinical Communication Department of Urology Provider, Unknown in [place], [place] [address] [place] [address] Social History Tobacco Use Types Packs/Day Years [...] you attend faith or Patient refused 2021 holiness services? 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 documented in this encounter Plan of Treatment Upcoming Encounters Date Type Specialty Care Team Description 08/20/2022 Appointment Radiology Claude Loaiza MPAS, P.A.-C. [address] [place], [place] [phone] (Wo rk) 08/20/2022 Appointment Radiology Claude Loaiza MPAS, P.A.-C. [address] [place] [address] [phone] (Wo rk) 08/22/2022 Virtual Visit Urology Gibran Ruvalcaba M.D. [address] [place] [address] [phone] (Wo rk) documented as of this encounter Visit Diagnoses Not on filedocumented in this encounter Care Teams Acetylene Torch Solderer Relationship Specialty Start Date End Date Elsewhere, Pcp PCP - General Internal Medicine 01/14/22 documented as of this encounter
--- OUTSIDE RECORDS SUMMARY | 2022-08-09 13:41 | XMS_ITS | Encounter Summary ---
:1935 Author Organization [facility] Address [address] [place] [address] Care Team Providers Name Role Phone Elsewhere, Pcp Primary Care Provider Unavailable Reason for Referral Outpatient (Routine) - Closed Specialty Diagnoses / Procedures Referred By Contact Refer red To Contact Radiology Diagnoses Malignant Neoplasm Of Bladder (HCC) Nura David IV [facility] Procedures IR Nephrostomy Tube Exchange Left M.D. 200 [place], [place] [address] Referral ID Status Reason Start Date Expiration Date Visits Requ ested Visits Authorized [id number] Closed 02/22/2022 02/22/2023 1 1 Encounter Details Date Type Department Care Team Description 02/22/2022 Orders Only Department of Urology Nura David Malignant Neoplasm Of in Becky Batista IV, M.D. Bladder (HCC) (Primary [place] 200 [facility] Dx) [address] [place] [phone] Social History Tobacco Use Types Packs/Day Years [...] you attend restorationist or Patient refused 2021 episcopalian services? Do you belong to any clubs or No 05/17/2022 organizations such as restorationist groups, unions, [employer] or athletic groups, or school groups? 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 [address] [place] [phone] (Octavio christensen) 08/20/2022 Appointment Radiology Claude Loaiza MPAS, P.A.-C. [address] [place] [address] 55 [phone] (Octavio christensen) 08/22/2022 Virtual Visit Urology Gibran Ruvalcaba M.D. [address] [place] [phone] (Octavio christensen) documented as of [...] 05/20/2022 5:48 PM CDT Routine exchange 10 Beninese left percutaneous nephrostomy tube. Drain to gravity [...] lidoca ine used for local anesthesia. Fluoroscopic field organizer image demonstrates unchanged position of the l eft 10 Beninese percutaneous nephrostomy tube. Injection of contrast demonstrated a locking loop wit hin the markedly dilated left renal pelvis with high-grade narrowing at the left UPJ. Drain removed in its entirety over a guidewire and a new 10 Beninese locking loop catheter advanced with lock ing [...] lidoca ine used for local anesthesia. Fluoroscopic field organizer image demonstrates unchanged position of the l eft 10 Beninese percutaneous nephrostomy tube. Injection of contrast demonstrated a locking loop wit hin the markedly dilated left renal pelvis with high-grade narrowing at the left UPJ. Drain removed in its entirety over a guidewire and a new 10 Beninese locking loop catheter advanced with lock ing [...] blood loss: minimal.. IMPRESSION: Routine exchange 10 Beninese left percutan eous nephrostomy tube. Drain to gravity bag drainage. Routine exchange in 10-12 week s. NR Nura David IV, M.D. G IR PROCEDURES documented in this encounter Visit Diagnoses Diagnosis Malignant Neoplasm Of Bladder (HCC) - Pr imary Malignant Neoplasm Of Bladder (HCC) documented in this encounter Care Teams Manager E Learning Relationship Specialty Start Date End Date Elsewhere, Pcp PCP - General Internal Medicine 01/14/22 documented as of this encounter
--- OUTSIDE RECORDS SUMMARY | 2022-08-09 13:41 | XMS_ITS | Encounter Summary ---
:[address] [facility] Address [address] [place] [address] Care Team Providers Name Role Phone Elsewhere, Pcp Primary Care Provider Unavailable Encounter Details Date Type Department Care Team Description 02/26/2022 Orders Only Pharmacy Prior Auth [address] [phone] Social History Tobacco Use Types Packs/Day Years [...] you attend mu-ism or Patient refused 2021 hindu services? 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 [address] [place] [address] [phone] (Wo rk) 08/20/2022 Appointment Radiology Claude Loaiza MPAS P.A.-C. [address] [place] [address] [phone] (Wo rk) 08/22/2022 Virtual Visit Urology Gibran Ruvalcaba M.D. [address] [place] [address] [phone] (Wo rk) documented as of this encounter Visit Diagnoses Not on filedocumented in this encounter Care Teams Underwriting Director Relationship Specialty Start Date End Date Elsewhere, Pcp PCP - General Internal Medicine 01/14/22 documented as of this encounter
--- OUTSIDE RECORDS SUMMARY | 2022-08-09 13:41 | XMS_ITS | Encounter Summary ---
:1935 Author Organization [facility] Address [address] [place] [address] Care Team Providers Name Role Phone Elsewhere, Pcp Primary Care Provider Unavailable Reason for Visit Reason Comments Triage Encounter Details Date Type Department Care Team Description 02/15/2022 Clinical Communication Department of Draw Hand, [facility] Cardiovascular Medicine Ashtyn Kumar in [facility] rotary surface grinder [address] [place] [phone] Social History Tobacco Use Types Packs/Day [...] attend oriental orthodox or Patient refused 2021 yarsanism services? 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 Internal/external: URO surg, [place], [id number] ?? Goal or summary: Schedule in CV ?? Requested date: February ?? Additional comments: Please Review documented in this encounter Plan of Treatment Upcoming Encounters Date Type Specialty Care Team Description 08/20/2022 Appointment Radiology Claude Loaiza MPAS, P.A.-C. [address] [place] [phone] (Wo rk) 08/20/2022 Appointment Radiology Claude Loaiza MPAS, P.A.-C. [address] [place] [phone] (Wo rk) 08/22/2022 Virtual Visit Urology Gibran Ruvalcaba M.D. [address] [place] [phone] (Wo rk) documented as of this encounter Visit Diagnoses Not on filedocumented in this encounter Additional Health Concerns Infection Onset Date Last Indicated Resolved Time COVID19 Pending 02/15/2022 02/15/2022 02/15/2022 10:28 PM CDT COVID19 Pending 02/20/2022 02/20/2022 02/20/2022 8:04 PM CDT documented as of this encounter Care Teams Riding Teacher Relationship Specialty Start Date End Date Elsewhere, Pcp PCP - General Internal Medicine 01/14/22 documented as of this encounter
--- OUTSIDE RECORDS SUMMARY | 2022-08-09 13:41 | XMS_ITS | Encounter Summary ---
:1935 Author Organization [facility] Address [address] [place] [address] Care Team Providers Name Role Phone Elsewhere, Pcp Primary Care Provider Unavailable Reason for Visit Reason Comments Urinary Retention UCO/[facility] Outpatient (Routine) - Closed Specialty Diagnoses / Procedures Referred By Contact Refer red To Contact Diagnoses Retention Urinary Cori Reece M.D. [facility] Procedures URO Urethral cath removal & voiding trial (UCO/VT) [address] [place] [phone] Referral ID Status Reason Start Date Expiration Date Visits Requ ested Visits Authorized [id number] Closed 02/22/2022 02/22/2023 1 1 Encounter Details Date Type Department Care Team Description 02/27/2022 Procedure visit Department of Urology Bao Reece M.D. [address] [place] [phone] Retention Urinary in [facility] Manasa Justice, RJluisNJluis [address] [place] [phone] [place] [phone] Social History Tobacco Use Types Packs/Day Years [...] you attend zoroastrian or Patient refused 2021 quaker services? Do you belong to any clubs or No 05/17/2022 organizations such as zoroastrian groups, unions, [employer] or athletic groups, or school groups? 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 [address] [place] [phone] (Wo rk) 08/20/2022 Appointment Radiology Claude Loaiza MPAS PBe. [address] [place] [address] [phone] (Wo rk) 08/22/2022 Virtual Visit Urology Gibran Ruvalcaba M.D. [address] [place] [address] [phone] (Wo rk) documented as of [...] (ABNORMAL) Dipstick, Urine (02/27/2022 11:20 AM CDT) [facility] Method Time Signature Hemoglobin, Large (A) [...] Address City/State/ZIP Code Phon e Number [facility] - [address] [place] [address] [place] [address] [address] [facility] pH, Urine (02/27/2022 11:20 AM CDT) athologist Signature pH, U 5.7 4.5 - 8.0 02/27/2022 12:07 DTL PM CDT Specimen Anatomical Collection Method Collection Time Receive d Time (Source) Location / / Volume Laterality Urine 02/27/2022 11:20 02/27/2022 AM CDT 11:29 AM CDT Conor Lakhani M.D. LAB URINE ORDERABLES Performing Organization Address City/State/ZIP Code Phon e Number [facility] - [address] [place] [address] [place] [address] [facility] Osmolality, Urine (02/27/2022 11:20 AM CDT) P athologist Signature Osmolality, U 288 150 - 1150 02/27/2022 DTL mOsm/kg 12:07 PM CDT Specimen Anatomical Collection Method Collection Time Receive d Time (Source) Location / / Volume Laterality Urine 02/27/2022 11:20 02/27/2022 AM CDT 11:29 AM CDT Conor Lakhani M.D. LAB URINE ORDERABLES Performing Organization Address City/[facility] Phon e Number [facility] - [address] [place], [place] [address] [place] [address] [facility] [address] [facility] (ABNORMAL) Microscopic Automated (02/27/2022 11:20 AM CDT) [...] M.D. LAB URINE ORDERABLES Performing Organization Address City/[facility] Phon e Number [facility] - [address] [place], [place] [address] [place] [address] [facility] 200 [facility] Bacterial Culture, Aerobic + Susc, Urine (02/27/2022 11:20 AM CDT) [facility] Method Time Signature Urine Culture No growth 02/28/2022 DTL after 1 day 8:02 AM CDT of incubation. Specimen (Source) Anatomical Collection Method Collection Time Re ceived Time Location / / Volume Laterality Urine (Urine, 02/27/2022 11:20 02/27/2022 Indwelling AM CDT 12:10 PM CDT Catheter) Comment: Specimen Source Site: Urine Conor Gopalakrishna M.D. LAB MICROBIOLOGY - GENERAL O RDERABLES Performing Organization Address City/[facility] Phon e Number [facility] - [address] [place], [place] [address] [place] [address] [facility] [address] [facility] Urinalysis with Microscopic: Urine, Catheter (02/27/2022 11:20 AM CDT) [facility] gist Method Time Signature Source Urine, [...] M.D. LAB URINE ORDERABLES Performing Organization Address [facility] Phon e Number [facility] - [address] [place], [place] [address] [place] [address] [facility] [address] documented in this encounter Visit Diagnoses Diagnosis Retention Urinary documented in this encounter Care Teams Casing In Line Feeder Relationship Specialty Start Date End Date Elsewhere, Pcp PCP - General Internal Medicine 01/14/22 documented as of this encounter
--- OUTSIDE RECORDS SUMMARY | 2022-08-09 13:41 | XMS_ITS | Encounter Summary ---
:1935 Author Organization [facility] Address [address] [place] [address] Care Team Providers Name Role Phone Elsewhere, Pcp Primary Care Provider Unavailable Reason for Referral Radiation Therapy (Routine) - Closed Specialty Diagnoses / Procedures Referred By Contact Refer red To Contact Diagnoses Malignant Neoplasm Of Bladder (HCC) Manny Anderson M.D. [facility] Procedures Initial Rad Onc Treatment Planning CT Simulation Initial Rad Onc Treatment Planning CT Simulation [address] [place] [phone] Referral ID Status Reason Start Date Expiration Date Visits Requ ested Visits Authorized [id number] Closed 03/05/2022 03/05/2023 1 1 Outpatient (Routine) - Authorized Specialty Diagnoses / Procedures Referred By Contact Refer red To Contact Social Work Manny Anderson M .D. [facility] Region [address] [place] [phone] Referral ID Status Reason Start Date Expiration Date Visits V isits Requested Authorized [id number] Authorized 03/05/2022 03/05/2023 6 6 Outpatient (Routine) - Authorized Specialty Diagnoses / Procedures Referred By Contact Refer red To Contact Radiation Oncology Manny Anderson M .D. [facility] Region [address] [place] [phone] Referral ID Status Reason Start Date Expiration Date Visits V isits Requested Authorized [id number] Authorized 03/05/2022 03/05/2023 10 10 Radiation Therapy (Routine) - Authorized Specialty Diagnoses / Procedures Referred By Contact Refer red To Contact Diagnoses Malignant Neoplasm Of Bladder (HCC) Manny Anderson M.D. [facility] Procedures Management Visit [address] [place], [place] [phone] Referral ID Status Reason Start Date Expiration Date Visits V isits Requested Authorized [id number] Authorized 03/05/2022 03/05/2023 10 10 Radiation Therapy (Routine) - Authorized Specialty Diagnoses / Procedures Referred By Contact Refer red To Contact Diagnoses Malignant Neoplasm Of Bladder (HCC) Manny Anderson M.D. [facility] Procedures Prior Auth Rad Tx [address] [place], [place] [phone] Referral ID Status Reason Start Date Expiration Date Visits V isits Requested Authorized [id number] Authorized 03/05/2022 03/05/2023 1 1 Encounter Details Date Type Department Care Team Description 03/05/2022 Orders Only Department of Manny Anderson N eoplasm Of Radiation Oncology in Ashtyn [place] Bladder (HCC) (Primary [place] [address] [facility] Dx) [address] [place] [phone] Social History Tobacco Use Types Packs/Day Years [...] you attend orthodox or Patient refused 2021 baptist services? Do you belong to any clubs or No 05/17/2022 organizations such as orthodox groups, unions, [employer] or athletic groups, or school groups? 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 [address] [place] [phone] (Octavio christensen) 08/20/2022 Appointment Radiology Claude Loaiza MPAS, P.A.-CJluis [address] [place] [phone] (Octavio christensen) 08/22/2022 Virtual Visit Urology Gibran Ruvalcaba M.D. [address] [place] [phone] (Octavio christensen) Scheduled Orders Name [...] Organization Address City/State/ZIP Code Phon e Number [facility] documented in this encounter Visit Diagnoses Diagnosis Malignant Neoplasm Of Bladder (HCC) - Pr imary Malignant Neoplasm Of Bladder (HCC) documented in this encounter Care Teams Commercial Baker Helper Relationship Specialty Start Date End Date Elsewhere, Pcp PCP - General Internal Medicine 01/14/22 documented as of this encounter
--- OUTSIDE RECORDS SUMMARY | 2022-08-09 13:41 | XMS_ITS | Encounter Summary ---
:1935 Author Organization [facility] Address [address] [place] [phone] Care Team Providers Name Role Phone Elsewhere, Pcp Primary Care Provider Unavailable Reason for Referral Outpatient (Routine) - Closed Specialty Diagnoses / Procedures Referred By Contact Refer red To Contact Urology Diagnoses Retention Urinary Nura David IV [place] Trupti Chamorro [address] [place] [phone] Referral ID Status Reason Start Date Expiration Date Visits Requ ested Visits Authorized [id number] Closed 02/27/2022 02/27/2023 1 1 Scheduling Instructions PLEASE SCHEDULE WITH JACQUELINE OR PROVIDER WHO CAN DO REZUM CONSULTATION Reason for Visit Reason Comments Post-op Outpatient (Routine) - Closed Specialty Diagnoses / Procedures Referred By Contact Refer red To Contact Urology Cori Reece M.D . [address] [phone] Referral ID Status Reason Start Date Expiration Date Visits Requ ested Visits Authorized [id number] Closed 02/22/2022 02/22/2023 1 1 Encounter Details Date Type Department Care Team Description 02/27/2022 Office Visit Department of Urology Lamont Lakhani [place] (Primary Dx) [address] [phone] Social History Tobacco Use Types Packs/Day Years [...] you attend temple or Patient refused 2021 sikh services? 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 - 02/27/2022 3:[address] [facility] clinic note Subjective Mr. Chery is an [...] void bladder scan 579 cc. An 18 Micronesian coude catheter was replaced. On my visit with the patient, he is accompanied by his and [id number]. He reports overall doing fine. The primary question is what to regarding bladder drainage. Also had a question about some seemingly purulent drainage noted on catheter removal. He denies nausea, vomiting, fevers, chills. Objective On exam, patient is awake, alert, oriented, not in distress. There is an 18 Micronesian Villarreal catheter draining clear thin fruit punch [...] Appointment Radiology Claude Loaiza, GARCIA P.A.-C. [address] [place] [phone] (Wo rk) 08/20/2022 Appointment Radiology Claude Loaiza MPAS P.A.-C. [address] [place] [phone] (Wo rk) 08/22/2022 Virtual Visit Urology Gibran Ruvalcaba M.D. [address] [place] [phone] (Wo rk) Scheduled Referrals Name Type Priority Associated Diagnoses [facility] - General - Outpatient Referral Routine Retention Urin anita Expected: urinary retention 02/27/2022 consult (clinic) (Approximat e), Expires: 05/30/2023 documented as of this encounter Visit Diagnoses Diagnosis Retention Urinary - Primary documented in this encounter Care Teams Culinary Worker Relationship Specialty Start Date End Date Elsewhere, Pcp PCP - General Internal Medicine 01/14/22 documented as of this encounter
--- OUTSIDE RECORDS SUMMARY | 2022-08-09 13:41 | XMS_ITS | Encounter Summary ---
:1935 Author Organization [facility] Address [address] [place] [address] Care Team Providers Name Role Phone Elsewhere, Pcp Primary Care Provider Unavailable Reason for Referral Medication Prior Authorization - Denied Specialty Diagnoses / Procedures Referred By Contact Refer red To Contact Nura David IV, M.D. [address] [place] [phone] Referral ID Status Reason Start Date Expiration Date Visits Requ ested Visits Authorized [id number] Denied 1 1 Outpatient (Routine) - Closed Specialty Diagnoses / Procedures Referred By Contact Refer red To Contact Diagnoses Retention Urinary Cori Reece M.D. [facility] Procedures URO Urethral cath removal & voiding trial (UCO/VT) [address] [place] [phone] Referral ID Status Reason Start Date Expiration Date Visits Requ ested Visits Authorized [id number] Closed 02/22/2022 02/22/2023 1 1 utpatient (Routine) - Closed Specialty Diagnoses / Procedures Referred By Contact Refer red To Contact Urology Cori Reece M.D . [facility] [address] [place] [address] Referral ID Status Reason Start Date Expiration Date Visits Requ ested Visits Authorized [id number] Closed 02/22/2022 02/22/2023 1 1 Scheduling Instructions [facility] Reason for Visit MRI/CAT/PET Scan (Routine) - Closed Specialty Diagnoses / Procedures Referred By Contact Refer red To Contact Radiology Diagnoses Mass Bladder David Day M.B., [facility] Procedures CT Abdomen and/or Pelvis Biopsy CT Biopsy Other B.Ch., B.A.O. [address] [place] [phone] Referral ID Status Reason Start Date Expiration Date Visits Requ ested Visits Authorized [id number] Closed 02/12/2022 02/12/2023 1 1 Encounter Details Date Type Department Care Team Description 02/18/2022 - Hospital Encounter [facility] Richmond Day M.B., B.Ch., B.A.O. 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 [address] [place] [phone] Mass Bladder; [facility], Sixth Floor [address] [place] [phone] Social History Tobacco Use Types Packs/Day Years [...] you attend protestant or Patient refused 2021 restoration services? 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 Primary Team: [...] hospital problems. * DISCHARGE DISPOSITION Home-Health Care [facility] [6] ACTIVE ISSUES REQUIRING FOLLOW UP - [facility] outpatient clinic visit on Tuesday 02/27 [...] related to the procedure, please contact the [facility] fuel yard operator ([phone]) and ask to be connected to the non-vascular interventional radiology fellow prescription clerk AttachmentsThe following attachments cannot be sent through Care Everywhere. Sulfamethoxazole (By mouth) (Martiniquais)Trospium (By mouth) (Martiniquais)documented in this encounter Medications at Time of [...] per tablet a day for 3 days. furosemide (LASIX) 20 mg Take 40 mg [...] UCO. Florencio David IV, M.D. Ken Gilbert, PharmJluisDJluis, R.Ph. - 02/22/2022 9:18 AM CDT Pharmacist [...] to medications anticipated at discharge: SAM Gilbert Pharm.D., R.Ph. Nura David IV, M.D. - 02/22/2022 4:47 AM CDT [...] inpatient due to decreased hemoglobin and hematuria. / Blood transfusion given and CBI started. 02/20 [...] 81, nitroglycerin Nura David IV, M.D. - 02/20/2022 2:49 [...] indicated Florencio David IV, M.D. Leonel Forman PharmAdalberto, R.Ph. - 02/20/2022 1:33 PM CDT Pharmacist [...] medications anticipated at discharge: TBD Leonel Forman PharmAdalberto, R.Ph. Nura David IV, M.D. - 02/20/2022 [...] for TURBT Please page Chief Urology at [phone] from 7 AM - 5 PM or at [phone] after hours with any questions/concerns. Cori Reece M.D. documented in this encounter Consult Notes Braden Gan M.D. - 02/21/2022 4:57 PM CDTAssociated Order(s): IP CONSULT TO CARDIOLOGY CARDIOLOGY CONSULT NOTE DEMOGRAPHIC INFORMATION Patient Name: Henok Chery Birthdate: 1935 Age: 86 y.o. Sex: male Address: [address] [place] [phone] CHIEF COMPLAINT/PURPOSE OF VISIT - Pre-operative evaluation [...] medications in the past including beta-blockers and YISSLE inhibitors. He is on Lasix 20 mg [...] staffed with Dr. Louis. Please page the [facility] consult service in case of questions or concerns. Braden Gan M.D. 02/21/22 Damaris Gooden RJluisN. 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 no benefits: No Advance Directives Advance Directives: N/A Advance Directives Status: N/A OBJECTIVE Baseline Functional Status Baseline Activities of Daily Living Dressing: Independent Feeding: Independent Bathing: Needs assistance Grooming: Independent Toileting: Independent Behavior: Appropriate Communication: Talks, Understands speaking, Understands Martiniquais Shopping: Needs assistance Transportation: Support from family Medication Management: Needs assistance Housekeeping: Needs assistance Meal Prep: Needs assistance Managing Finances: Needs assistance Assistive Devices: Walker - four wheeled, Scooter Services/Resources: Home health Agency Name: [facility] Provided: long term, PT Baseline Services/Resources Primary care clinic and provider: ELSEWHERE, PCP Services/Resources: Home health Additional Resources: NA Anticipated Needs Functional Status: None Assistive Devices: Walker - four wheeled, Oxygen, Scooter, Tub/shower chair/bench Services/Resources: Home health Agency Name: [facility] Provided: long term, PT Transportation Needs: Support from family Does the patient need discharge transport arranged?: No Anticipated Discharge Destination: Home-Health Care [facility] ASSESSMENT / PLAN Plan Assessment: The console assembler met with Henok Chery to discuss his current hospitalization and home going needs. The patient was accompanied by , Miesha. The patient's was a reliable historian. The role of console assembler was reviewed. The patient's reviewed his prior level of care and support system. The patient receives support from his and children. The patient's described his living environment as a home with bedroom and bathroom on same floor with level entry. Housekeeping, grocery shopping, meal prep, and other household responsibilities have previously been completed by patient's . console assembler discussed the patient's potential needs at dismissal [...] live together in a one-story home in [place], [place]. Patient'swife states patient utilizes a walker for longer distances but is able to mobilize independently within the home. Patient's states patient was receiving home healthcare prior to this hospital admission for PT once per week and prison once per week. Patient's states patient is [...] Homecare and home oxygen is provided by [employer]. The patient's reports understanding that he will [...] dismissal will be provided by family--. 3. console assembler recommended reaching out to family, friends, and neighbors for assistance. 4. console assembler provided information regarding the dismissal process. 5. console assembler placed or requested the following hospital-based consult orders and/or referrals:None. 6. console assembler will continue to assess for homegoing needs with the interdisciplinary team. 7. console assembler encouraged the patient to reach out with any questions/concerns. Patient to discharge with home health care. Home Medical Care - Admitted Since 02/18/2022 Service Provider Selected Services Address Phone Fax Patient Preferred [facility] Health - [facility] [address] [phone] -- Contact: Intake NURSING: - Complete documentation in the Discharge Navigator including Nursing Report Info and Facility/NextLevel of Care Info - Call report and arrange for the patient???s first visit. - Send required packet of dismissal information with patient, including After Visit Summary and advance directive. PRIMARY SERVICE: - Please provide a non-[place] home health order for resumption of previous [...] Selected Services Address Phone Fax Patient Preferred [facility] D[facility] Medical Equipment [address] [phone] -- Contact: Intake Respiratory Equipment : [...] RN, ENAN, MAGDALENAS, CCS, CRC Clinical Documentation Online Merchant Query created by: LAURA Iniguez, RN, CPN, MAGDALENAS, CCS, CRC 02/20/2022 08:21 AM CDT </LCI> [...] medicine question arises through his hospital course [phone]. Judy Schumacher MD MS Internal Medicine, PGY3 General Internal Medicine Consults [phone] Hospital Course - Nura David IV, M.D. [...] 5/ Blood transfusion given and CBI started. 02/20 [...] Radiology Claude Loaiza MPAS, P.A.-C. [address] [place] [phone] (Wo rk) 08/20/2022 Appointment Radiology Claude Loaiza MPAS, P.A.-C. [address] [place] [phone] (Wo rk) 08/22/2022 Virtual Visit Urology Gibran Ruvalcaba M.D. [address] [place] [phone] (Wo rk) Pending Results Name [...] Provider LAB POCT ORDERABLES-MANUAL Performing Organization Address City/[facility] Phon e Number POC [facility] LAB SERVICES [address] [place] [address] [place], [place] [phone] [place] [address] POC 200 [facility] (ABNORMAL) Glucose, POCT (02/22/2022 11:26 AM CDT) Analysis Performed At [facility] Time Signature Glucose, POCT, 190 (H) 70 [...] Provider LAB POCT ORDERABLES-MANUAL Performing Organization Address City/[facility] Phon e Number POC [facility] LAB SERVICES [address] [place] [address] [place], [place] [phone] [place] [address] POC 200 [facility] Glucose, POCT (02/22/2022 7:17 AM CDT) Analysis Performed At [facility] Time Signature Glucose, POCT, 125 70 - 140 02/22/2022 [facility] B mg/dL 7:19 AM CDT Site Capillary 02/22/2022 [facility] 7:19 AM CDT Last Intake 3-4 hours 02/22/2022 [facility] 7:19 AM CDT Specimen Anatomical Collection Method Collection Time Receive d Time (Source) Location / / Volume Laterality Blood 02/22/2022 7:17 AM 7:19 CDT AM CDT Unknown Provider LAB POCT ORDERABLES-MANUAL Performing Organization Address City/[facility] Phon e Number POC [facility] LAB SERVICES [address] [place] [address] PCLX [facility] [place] [address] [facility] 200 [facility] (ABNORMAL) CBC without Differential (02/22/2022 3:59 AM CDT) [facility] Method Time Signature Hemoglobin 7.6 (L) 13.2 [...] Laterality Blood (Blood, 02/22/2022 3:59 AM 02/23/20 22 4:30 Venous) CDT AM CDT Cori Reece M.D. LAB BLOOD ADD-ON Performing Organization Address City/State/ZIP Code Phon e Number [facility] - [address] [place], [place] [address] [facility] [place] [address] Formerly [facility] [address] [facility] (ABNORMAL) Basic Metabolic Panel (02/22/2022 3:59 AM [...] 02/22/2022 DTL Black/ mL/min/BSA 5:02 AM CDT Panamanian Comment: ----ADDITIONAL INFORMATION---- Estimated GFR calculated using [...] City/State/ZIP Code Phon e Number [facility] - [address] [place], [place] [address] [facility] [address] Laboratories-[facility] [address] Glucose, POCT [...] Provider LAB POCT ORDERABLES-MANUAL Performing Organization Address City/[facility] Phon e Number [facility] LAB SERVICES [address] [place] [address] [place] [address] [facility] 200 [facility] (ABNORMAL) Hemoglobin (02/21/2022 6:21 PM CDT) P athologist Signature Hemoglobin 8.0 (L) 13.2 - 16.6 02/21/2022 DTL g/dL 6:38 PM CDT Specimen Anatomical Collection Method Collection Time Receive d Time (Source) Location / / Volume Laterality Blood (Blood, 02/21/2022 6:21 PM 02/22/20 6:32 Venous) CDT PM CDT Cori Reece M.D. LAB BLOOD ADD-ON Performing Organization Address City/[facility] Phon e Number [facility] - [address] [place], [place] [address] [facility] [address] Formerly [facility] 200 [facility] (ABNORMAL) Glucose, POCT (02/21/2022 5:09 PM CDT) Analysis Performed At Patho [facility]ist Time Signature Glucose, POCT, 205 (H) 70 - 140 02/21/2022 [facility] B mg/dL 5:18 PM CDT Site Capillary 02/21/2022 P[facility] 5:18 PM CDT Last Intake 3-4 hours 02/21/2022 [facility] 5:18 PM CDT Specimen Anatomical Collection Method Collection Time Receive d Time (Source) Location / / Volume Laterality Blood 02/21/2022 5:09 PM 2 5:18 CDT PM CDT Unknown Provider LAB POCT ORDERABLES-MANUAL Performing Organization Address City/State/ZIP Code Phon e Number POC [facility] LAB SERVICES [address] [place] [address] PCLX [facility] [place] [address] [place] POC [address] [facility] US Urinary Bladder (02/21/2022 2:35 PM CDT) [...] City/State/ZIP Code Phon e Number [facility] - [address] [place], [place] [address] [facility] [place] [address] Laboratories-[facility] 200 [facility] (ABNORMAL) Glucose, POCT (02/21/2022 11:38 AM [...] Provider LAB POCT ORDERABLES-MANUAL Performing Organization Address [facility] Code Phon e Number POC [facility] LAB SERVICES [address] [place] [address] [facility]CL[facility] [place] [address] [place] [facility] 200 [facility] (TTE) 2D ECHO DOPPLER COLOR AND [...] per Echocardiography Contrast Administration Protocol Reference Document [id number]. Patient met an inclusion criterion and did not have contraindications in screening sections. LUNG FINDINGS:Lung ultrasound performed. Mild interstitial process (1-3 B- line(s) per zone) in both lungs. For the complete report, see the [facility] Documents. Narrative 02/21/2022 4:17 PM CDT For [...] For the complete report, see the [facility] Documents. Final Impressions 1. Severely enlarged left [...] per Echocardiography Contrast Administration Protocol Reference Document [id number]. Patient met an inclusion criterion and did [...] (02/21/2022 8:58 AM CDT) Analysis Performed At [facility] Time Signature Glucose, POCT, 119 70 [...] Address City/State/ZIP Code Phon e Number POC [facility] LAB SERVICES [address] [place] [address] PCLX [facility] [place] [address] [place] [facility] [address] (ABNORMAL) Basic [...] 02/21/2022 DTL Black/ mL/min/BSA 5:14 AM CDT Panamanian Comment: ----ADDITIONAL INFORMATION---- Estimated GFR calculated using [...] M.D. LAB BLOOD ADD-ON Performing Organization Address City/[facility] Phon e Number [facility] - [address] [place], [place] [address] [facility] [address] Laboratories-[facility] 200 [facility] (ABNORMAL) CBC without Differential (02/21/2022 3:46 AM CDT) [facility] Method Time Signature Hemoglobin 7.1 (L) 13.2 [...] M.D. LAB BLOOD ADD-ON Performing Organization Address City/[facility] Code Phon e Number [facility] - [address] [place], [place] [address] [facility] [place] [address] Laboratories-[address] SARS Coronavirus 2, PCR Rapid, V (02/20/2022 7:39 PM CDT) [facility] Method Time Signature SARS CoV-2, Undetected Undetected 02/20/2022 [facility] PCR, Rapid, V 8:04 PM CDT Comment: ----ADDITIONAL INFORMATION---- This RT-PCR test was performed using the Simran SARS-CoV-2 and Influenza A/B Reagent assay from [employer], which has received Emergency Use Authori zation(EUA) by the U.S. Food and Drug Administration . Fact sheets for this Emergency Use Autho rization (EUA) assay can be found at the following link s: For Healthcare Providers: https://www.fda.gov/media/533670/downloa d For Patients: https://www.fda.gov/media/035865/downloa d SARS Coronavirus 2, Source, Rapid Swab, Nasopharynx 02/20/2022 7:39 PM CDT [facility] Comment: REVISED RESULTS Specimen Anatomical Collection Method Collection Time Receive d Time (Source) Location / / Volume Laterality Varies 02/20/2022 7:39 PM 7:39 CDT PM CDT Nura David IV, M.D. LAB MICROBIOLOGY - GENERA L ORDERABLES Performing Organization Address City/State/ZIP Code Phon e Number [facility] - [address] [place], [place] [address] [place] [address] Laboratories-[address] Glucose, POCT (02/20/2022 7:12 PM CDT) Analysis Performed At Patho logist Time Signature Glucose, POCT, 93 70 [...] Provider LAB POCT ORDERABLES-MANUAL Performing Organization Address City/[facility]/ZIP Code Phon e Number POC [facility] LAB SERVICES [address] [place] [address] [place] [address] [place] [facility] [address] [facility] (ABNORMAL) Glucose, POCT (02/20/2022 12:19 PM CDT) [...] Provider LAB POCT ORDERABLES-MANUAL Performing Organization Address City/[facility] Phon e Number [facility] LAB SERVICES [address] [place] [address] [place] [address] [place] [facility] [address] [facility] Fibrinogen (02/20/2022 12:13 PM CDT) P athologist Signature Fibrinogen, P 287 200 - 393 02/20/2022 DTL mg/dL 1:24 PM CDT Specimen Anatomical Collection Method Collection Time Receive d Time (Source) Location / / Volume Laterality Blood (Blood, 02/20/2022 12:13 02/20/2022 Venous) PM CDT 12:42 PM CDT Nura David IV, M.D. LAB BLOOD ADD-ON Performing Organization Address City/[facility]/ZIP [facility] Phon e Number [facility] - [address] [place] [address] [facility] [address] [facility] [address] [facility] (ABNORMAL) Prothrombin Time (PT) (02/20/2022 12:13 PM [...] 02/20/2022 Venous) PM CDT 12:42 PM CDT Nuar David IV, M.D. LAB BLOOD ADD-ON Performing Organization Address City/[facility] Phon e Number [facility] - [address] [place] [address] [facility] [place] [address] Laboratories-[facility] 200 [facility] (ABNORMAL) Hepatic Function Panel (02/20/2022 12:13 PM CDT) [facility] Method Time Signature Bilirubin, Total, S 1.1 [...] M.D. LAB BLOOD ADD-ON Performing Organization Address City/[facility]/ZIP Code Phon e Number [facility] - [address] [place], [place] [address] [place] [address] [facility] 200 [facility] (ABNORMAL) Hemoglobin (02/20/2022 12:13 PM CDT) P athologist Signature Hemoglobin 8.8 (L) 13.2 - 16.6 02/20/2022 DTL g/dL 12:56 PM CDT Specimen Anatomical Collection Method Collection Time Receive d Time (Source) Location / / Volume Laterality Blood (Blood, 02/20/2022 12:13 02/20/2022 Venous) PM CDT 12:43 PM CDT Nura David IV, M.D. LAB BLOOD ADD-ON Performing Organization Address [facility] Phon e Number [facility] - [address] [place], [place] [address] [place] [address] [facility] 200 [facility] (ABNORMAL) Glucose, POCT (02/20/2022 9:23 AM [...] Provider LAB POCT ORDERABLES-MANUAL Performing Organization Address City/[facility] Phon e Number POC [facility] LAB SERVICES [address] [place] [address] [place] [address] (ABNORMAL) Basic Metabolic Panel (02/20/2022 3:30 AM CDT) P athologist Signature Potassium, S 4.8 3.6 - [...] 02/20/2022 DTL Black/ mL/min/BSA 4:50 AM CDT Panamanian Comment: ----ADDITIONAL INFORMATION---- Estimated GFR calculated using [...] City/State/ZIP Code Phon e Number [facility] - [address] [place], [place] [address] [facility] [place] [address] Laboratories-[facility] [address] (ABNORMAL) CBC without Differential (02/20/2022 3:30 AM CDT) [facility] Method Time Signature Hemoglobin 8.1 (L) 13.2 [...] M.D. LAB BLOOD ADD-ON Performing Organization Address City/State/[facility] Code Phon e Number [facility] - [address] [place], [place] [address] [facility] [place] [address] Formerly [facility] 200 [facility] Transfuse Red Blood Cells : (02/19/2022 [...] / Volume Laterality Blood 02/19/2022 9:09 PM 2 9:13 CDT PM CDT Unknown Provider LAB POCT ORDERABLES-MANUAL Performing Organization Address City/State/ZIP Code Phon e Number POC [facility] LAB SERVICES [address] [place] [address] [place] [address] [place] [facility] [address] (ABNORMAL) Glucose, POCT (02/19/2022 5:10 PM CDT) [...] Organization Address City/State/ZIP Code Phon e Number [facility] LAB SERVICES [address] [place] [address] [place] [address] [place] [facility] [address] (ABNORMAL) Hemoglobin (02/19/2022 3:33 PM CDT) P athologist Signature Hemoglobin 7.4 (L) 13.2 - 16.6 02/19/2022 DTL g/dL 4:29 PM CDT Specimen Anatomical Collection Method Collection Time Receive d Time (Source) Location / / Volume Laterality Blood (Blood, 02/19/2022 3:33 PM 02/20/20 4:18 Venous) CDT PM CDT Nura David IV, M.D. LAB BLOOD ADD-ON Performing Organization Address City/State/ZIP Code Phon e Number [facility] - [address] [place], [place] [address] [facility] [address] Formerly [facility] [facility] [address] Type and Screen (with reflex Antibody [...] BANK TEST ORDER RAFFY Performing Organization Address City/[facility]/ZIP [facility] Phon e Number [facility] - [address] [place], [place] [address] [facility] [place] [address] [facility] [address] (ABNORMAL) Glucose, POCT [...] LAB POCT ORDERABLES-MANUAL Performing Organization Address City/State/ZIP [facility] Phon e Number [facility] [address] [place] [address] PCLX [facility] [place] [address] [place] [facility] [address] (ABNORMAL) Hemoglobin (02/19/2022 9:34 AM CDT) P athologist Signature Hemoglobin 7.8 (L) 13.2 - 16.6 02/19/2022 DTL g/dL 11:01 AM CDT Specimen Anatomical Collection Method Collection Time Receive d Time (Source) Location / / Volume Laterality Blood (Blood, 02/19/2022 9:34 AM 02/20/20 22 Venous) CDT 10:00 AM CDT Nura David IV, M.D. LAB BLOOD ADD-ON Performing Organization Address City/[facility]/ZIP Code Phon e Number [facility] - [address] [place], [place] [address] [facility] [address] [facility] 200 [facility] (ABNORMAL) Glucose, POCT (02/19/2022 8:06 AM [...] Provider LAB POCT ORDERABLES-MANUAL Performing Organization Address City/[facility] Phon e Number [facility] SERVICES [address] [place] [address] [facility] [place] [address] [place] [facility] [address] [facility] (ABNORMAL) CBC without Differential (02/19/2022 3:33 [...] City/State/ZIP Code Phon e Number [facility] - [address] [place], [place] [address] [facility] [place], [place] [address] [facility] [address] (ABNORMAL) Basic [...] 02/19/2022 DTL Black/ mL/min/BSA 4:30 AM CDT Panamanian Comment: ----ADDITIONAL INFORMATION---- Estimated GFR calculated using [...] M.D. LAB BLOOD ADD-ON Performing Organization Address City/[facility]/ZIP Code Phon e Number [facility] - 200 [place], [place] [address] [facility] [place] [address] [facility] 200 [facility] (ABNORMAL) Glucose, POCT (02/19/2022 1:44 AM [...] Provider LAB POCT ORDERABLES-MANUAL Performing Organization Address City/[facility] Phon e Number POC [facility] LAB SERVICES [address] [place] [address] [facility] [place] [address] [place] [facility] 200 [facility] (ABNORMAL) Glucose, POCT (02/18/2022 5:14 PM [...] Provider LAB POCT ORDERABLES-MANUAL Performing Organization Address City/[facility]/ZIP Code Phon e Number POC [facility] SERVICES [address] [place] [address] [facility] [place] [address] [place] [facility] 200 [facility] ECG 12 Lead (02/18/2022 1:25 PM CDT) P athologist Signature Ventricular Rate 69 BPM MUSE ECG/Min ME Interval 168 ms MUSE QRSD Interval 102 ms MUSE QT Interval 454 ms MUSE QTC Interval 486 ms MUSE P [place] 71 degrees MUSE R [place] -8 degrees MUSE T Wave [place] 97 degrees MUSE Specimen Anatomical Collection Method [...] Address City/State/ZIP Code Phon e Number POC [facility] LAB SERVICES [address] [place] [address] [place] [address] [place] [facility] [address] Abdomen and/or Pelvis Biopsy (02/18/2022 8:54 [...] the target. 6 samples were taken utilhemanthi ng an 18-gauge biopsy device. TARGET LOCATION: [...] Component Value Ref Test Analysis Performed At [facility] Method Time Signature (A) 02/20/2022 DTL 3:00 [...] that is no t available. David Sevilla, B.Ch., B.A.O. LAB SURG PATH SHERRI FLORES Performing Organization Address City/State/ZIP Code Phon e Number [facility] - [address] [place], [place] [address] [facility] [place] [address] [facility] [address] Glucose, POCT (02/18/2022 7:25 AM CDT) Analysis Performed At Patho logist Time Signature Glucose, POCT, 112 70 - 140 02/18/2022 PCLX B mg/dL 12:58 PM CDT Site Capillary 02/18/2022 PCLX 12:58 PM CDT Specimen Anatomical Collection Method Collection Time Receive d Time (Source) Location / / Volume Laterality Blood 02/18/2022 7:25 AM CDT 12:59 PM CDT Unknown Provider LAB POCT ORDERABLES-MANUAL Performing Organization Address City/State/ZIP Code Phon e Number POC 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 Do NOT crush, chew, or split tablet. diazePAM tablet 2 mg (VALIUM) (COMPLETED) 0408 (Given - Provider: Kwesi Mortensen R.NJluis) 2 mg, oral, Once, On Fri02/20/22 at 0415, For 1 dose, Bladder spa sm diazePAM tablet 5 mg (VALIUM) (COMPLETED) 1038 (Given - Provider: Maria D García R.N.) 5 mg, oral, Once, On Fri02/20/22 at 1045, For 1 dose heparin (porcine) injection 5,000 Units (CANCELED) 064 7 (Given - Provider: Gibran JaraNJluis) 5,000 Units, subcutaneous, Every 8 hours scheduled, First dose on Fri02/18/22 at 1400 heparin (porcine) injection 5,000 Units 1417 (Given - Provider: Josephine Sánchez R.N.)2144 (Given - Provider: Josephine Sánchez R.N.) 0849 (Given - Provider: Gibran GarciaNJluis)1522 (Given - Provider: Maria D Spencer R.N.)2128 (Given - Provider: Riley Paiz R.N.) 0624 (Given - Provider: Gibran RiberaNJluis)1314 (Given - Provider: Shelley Baker R.N.) 5,000 [...] (HYDREA) 0753 (Given - Provider: Shelley Baker R.N.) 2,000 mg, oral, User Specified (Once per day on Fri), First dose on Fri02/22/22 at 0900, HAZARDOUS - Handle with care. Swallow whole. Do NOT crush, chew or open capsule. insulin aspart U-100 injection 0-7 Units (NovoLOG Flex Pen) 0927 (Given - Provider: Austen Barry R.N.)1317 (Given - Provider: Josephine Sánchez R.N.)1913 (Not Given - Provider: Josephine Sánchez [...] parameters not met)1130 (Not Given - Provider: Gibran PeirreNJluis - Reason: Patient/family refused) 0-7 Units, subcutaneous, [...] 1636 (Not Given - Provider: Shelley Baker RJluisNJluis - Reason: Patient/family refused) 6 units, 380 - 399: 7 units, Greater th an 399: Call service writing Insulin orders pantoprazole DR tablet 40 mg (PROTONIX) 0647 (Given - Provider: Kwesi Mortensen RJluisNJluis) 0736 (Given - Provider: [place] R.N.) 0624 (Given - Provider: Riley Paiz RJluisNJluis) 40 mg, oral, Daily before breakfast, Fir st dose on Fri02/20/22 at 0700, pantoprazole 40 mg oral daily was interchanged for omeprazole 20 or 40 mg oral daily Swallow whole. Do NOT crush, chew, or split tablet. sennosides-docusate sodium 8.6-50 mg per tablet 1 tabl et (SENOKOT-S) 0905 (Given - Provider: Austen Barry R.N.)203 (Given - Provider: Josephine Sánchez R.N.) 0849 (Given - Provider: Maria D Spencer R.N.)2127 (Not Given - Provider: Riley Paiz R.N. - Reason: Patient/family refused) 0742 (Given - Provider: Gibran PierreNJluis) 1 tablet, oral, 2 times daily, First dos e on Fri02/18/22 at 2100, Do not give if patient has diarrhea. sodium chloride 0.9 % injection 3 mL 0913 (Not Given - Provider: Maria D García R.N. - Reason: Other)2039 (Given - Provider: Josephine Sánchez R.N.) 0945 (Given - Provider: Maria D Spencer R.N.)2134 (Given - Provider: Riley Paiz R.N.) 0748 (Given - Provider: Shelley Moreno lt RJluisNJluis) 3 mL, intravenous, Every 12 hours schedu led, First dose on Fri02/18/22 at 2100, Preprocedure (RAD), Peripheral Intravenous Catheter and Rapid Infusion Catheter, when no infusion to maintain patency sodium chloride 0.9 % injection 3 mL (CANCELED) 0913 ( Not Given - Provider: Maria D García R.N. - Reason: Other)2039 (Given - Provider: Josephine Sánchez R.N.) 0900 (Not Given - Provider: Maria D [place] RJluisNJluis - Reason: Order parameters not met)2134 (Given - Provider: Riley Paiz RJluisNJluis) 3 mL, intravenous, Every 12 hours schedu led, First dose on Fri02/18/22 at 2100, Preprocedure (RAD), Peripheral Intravenous Catheter and Rapid Infusion Catheter, when no infusion to maintain patency sodium chloride 0.9 % injection 3 mL (CANCELED) 0912 ( Not Given - Provider: Maria D García R.N. - Reason: Other)2038 (Given - Provider: Josephine Sánchez R.N.) 1034 (Not Given - Provider: Maria D [place] RJluisNJluis - Reason: Order parameters not met)2127 (Given - Provider: Riley Paiz RGuy) 3 mL, intravenous, Every 12 hours schedu led, First dose on Fri02/18/22 at 2100, Peripheral Intravenous Catheter and Rapid Infusion Catheter, when no infusion to maintain patency Continuous Medication Order 02/20/2022 02/21/2022 02/22/2022 lactated ringers () 1427 (New Bag - Provider: Keyonna Sánchez RGuy)2322 (Stopped - Provider: [place] R.N.) 50 [...] (MIRALAX) 0904 (Given - Provider: Austen Barry R.N.) 17 g, oral, Daily PRN, constipation, Sta [...] RJluisN.)1037 (Given - Provider: Maria D García RJluisNJluis) 1233 (Given - Provider: Eulalia Suh RJluisNJluis)1856 (Given - Provider: Shelley Baker R.NJluis) 50 mg, oral, Every 6 hours PRN, moderate pain or score 4-6 of 10, Starting on Fri02/18/22 at 1318 trospium tablet 20 mg (SANCTURA) 0206 (Given - Provide r: Kwesi Mortensen R.N.)1416 (Given - Provider: Josephine Sánchez R.N.) 2128 [...] documented as of this encounter Care Teams Workers' Compensation Hearings Officer Relationship Specialty Start Date End Date Elsewhere, Pcp PCP - General Internal Medicine 01/14/22 documented as of this encounter
--- OUTSIDE RECORDS SUMMARY | 2022-08-09 13:41 | XMS_ITS | Encounter Summary ---
:1935 Author Organization [facility] Address [address] [place] [address] Care Team Providers Name Role Phone Elsewhere, Pcp Primary Care Provider Unavailable Reason for Referral Outpatient (Routine) - Closed Specialty Diagnoses / Procedures Referred By Contact Refer red To Contact Radiation Oncology Diagnoses Malignant Neoplasm Of Bladder (HCC) Cori Reece M.D. [facility] [address] [place] [phone] Referral ID Status Reason Start Date Expiration Date Visits Requ ested Visits Authorized [id number] Closed 02/26/2022 02/26/2023 1 1 Encounter Details Date Type Department Care Team Description 02/26/2022 Orders Only Department of Urology Cori Reece, Annamaria guzman Urinary (Primary Dx); in Ashtyn Batista Malignant Neoplasm Of Bladder (HCC) [address] [place] [phone] Social History Tobacco Use Types Packs/Day Years [...] you attend scientologist or Patient refused 2021 gnosticism services? Do you belong to any clubs or No 05/17/2022 organizations such as scientologist groups, unions, [employer] or athletic groups, or school groups? 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 [address] [place] [phone] (Octavio christensen) 08/20/2022 Appointment Radiology Claude Loaiza MPAS, P.A.-C. [address] [place] [phone] (Octavio christensen) 08/22/2022 Virtual Visit Urology Gibran Ruvalcaba M.D. 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
--- OUTSIDE RECORDS SUMMARY | 2022-08-09 13:41 | XMS_ITS | Encounter Summary ---
:1935 Author Organization [facility] Address [address] [place] [address] Care Team Providers Name Role Phone Elsewhere, Pcp Primary Care Provider Unavailable Encounter Details Date Type Department Care Team Description 02/26/2022 Clinical Communication Department of Urology Lisbeth Nguyen in [facility] [phone] [address] [facility] (Work) [place] [address] Social History Tobacco Use Types Packs/Day Years [...] attend roman catholic or Patient refused 2021 orthodoxy services? 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 [address] [place] [phone] (Wo rk) 08/20/2022 Appointment Radiology Claude Loaiza MPAS P.AJluis-C. [address] [place] [phone] (Wo rk) 08/22/2022 Virtual Visit Urology Gibran Ruvalcaba M.D. [address] [place] [phone] (Wo rk) documented as of this encounter Visit Diagnoses Not on filedocumented in this encounter Care Teams Conveyancer Relationship Specialty Start Date End Date Elsewhere, Pcp PCP - General Internal Medicine 01/14/22 documented as of this encounter
--- OUTSIDE RECORDS SUMMARY | 2022-08-09 13:41 | XMS_ITS | Encounter Summary ---
:1935 Author Organization [facility] Address [address] [place] [address] Care Team Providers Name Role Phone Elsewhere, Pcp Primary Care Provider Unavailable Reason for Referral Outpatient (Routine) - Closed Specialty Diagnoses / Procedures Referred By Contact Refer red To Contact Radiology Diagnoses Hydronephrosis David Day M.B., [facility] Procedures IR Nephrostomy Tube Placement Left B.Ch., B.A.O. [address] [place], [place] [phone] Referral ID Status Reason Start Date Expiration Date Visits Requ ested Visits Authorized [id number] Closed 02/12/2022 02/12/2023 1 1 Reason for Visit Outpatient (Routine) - Closed Specialty Diagnoses / Procedures Referred By Contact Refer red To Contact Radiology Diagnoses Hydronephrosis David Day M.B., [facility] Procedures IR Nephrostomy Tube Placement Left B.Ch., B.A.O. [address] [place], [place] [phone] Referral ID Status Reason Start Date Expiration Date Visits Requ ested Visits Authorized [id number] Closed 02/12/2022 02/12/2023 1 1 Encounter Details Date Type Department Care Team Description 02/18/2022 Hospital Encounter Department of [place] Day M.B., B.Ch., B.A.O. [address] [place] [phone] Hydronephrosis Radiology in Dannielle Gonsalves M.D. [address] [place] [phone] [place], [place] Saeid Stanton M.D. 200 [place] [phone] [address] [place] [address] Social History Tobacco Use Types [...] you attend methodist or Patient refused 2021 christian services? 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 Dannielle Gonsalves ([id number]) ASSISTANTS Dr. Stanton ([id number]) COMPLICATIONS None. DRAINS Left nephrostomy tube 10F [...] Radiology Claude Loaiza MPAS, P.A.-C. [address] [place] [phone] (Octavio christensen) 08/20/2022 Appointment Radiology Claude Loaiza MPAS, P.A.-C. [address] [place] [address] [phone] (Octavio christensen) 08/22/2022 Virtual Visit Urology Gibran Ruvalcaba M.D. [address] [place] [address] [phone] (Octavio christensen) documented as of [...] Exchange in 12 weeks. EP David Sevilla, BMi, B.A.O. IMG IR PROCEDURES Fungal Culture, Routine (02/18/2022 10:42 AM CDT) Patholo gist Method Time Signature Fungal No growth 03/14/2022 DTL Culture, after 24 1:01 PM CDT Routine days of incubation. Specimen Anatomical Collection Method Collection Time Receive d Time (Source) Location / / Volume Laterality Fluid (Kidney, 02/18/2022 10:42 2 Left) AM CDT 12:34 PM CDT Comment: Specimen Source Site: Fluid David Sevilla B.Ch., B.A.O. LAB MICROBIOLOGY - GENERAL ORDERABLES Performing Organization Address City/[facility] Phon e Number [facility] - [address] [place], [place] [address] [facility] [place] [address] Bacterial Culture, Anaerobic + Susc (02/18/2022 10:42 AM CDT) [facility] Method Time Signature Bacterial No growth 03/04/2022 DTL Culture, after 14 11:37 AM CDT Anaerobic + days of Susc incubation. Specimen Anatomical Collection Method Collection Time Receive d Time (Source) Location / / Volume Laterality Fluid (Kidney, 02/18/2022 10:42 2 Left) AM CDT 12:34 PM CDT Comment: Specimen Source Site: Fluid David Sevilla B.Ch., B.A.O. LAB MICROBIOLOGY - GENERAL ORDERABLES Performing Organization Address City/[facility] Phon e Number [facility] - [address] [place], [place] [address] [facility] [place] [address] Gram Stain (02/18/2022 10:42 AM CDT) [facility] gist Method Time Signature Gram Stain No organisms 02/18/2022 DTL seen. 2:40 PM CDT Specimen Anatomical Collection Method Collection Time Receive d Time (Source) Location / / Volume Laterality Fluid (Kidney, 02/18/2022 10:42 2 Left) AM CDT 12:34 PM CDT Comment: Specimen Source Site: Fluid David Sevilla B.Ch., B.A.O. LAB MICROBIOLOGY - GENERAL ORDERABLES Performing Organization Address City/[facility] Phon e Number [facility] [id number] [place] [address] Bacterial Culture, Aerobic + Susc (02/18/2022 10:42 AM CDT) [facility] gist Method Time Signature Bacterial No growth 02/23/2022 DTL Culture, after 5 8:30 AM CDT Aerobic + Susc days of incubation. Specimen Anatomical Collection Method Collection Time Receive d Time (Source) Location / / Volume Laterality Fluid (Kidney, 02/18/2022 10:42 2 Left) AM CDT 12:34 PM CDT Comment: Specimen Source Site: Fluid David Sevilla, B.Ch., B.A.O. LAB MICROBIOLOGY - GENERAL ORDERABLES Performing Organization Address [facility] Phon e Number [facility] - [address] [place] [id number] [place] [address] documented in this encounter Visit Diagnoses Diagnosis [...] (RAD) documented in this encounter Care Teams Warehouse Stocker Relationship Specialty Start Date End Date Elsewhere, Pcp PCP - General Internal Medicine 01/14/22 documented as of this encounter
--- OUTSIDE RECORDS SUMMARY | 2022-08-09 13:41 | XMS_ITS | Encounter Summary ---
:1935 Author Organization [facility] Address [address] [place] [address] Care Team Providers Name Role Phone Elsewhere, Pcp Primary Care Provider Unavailable Reason for Visit Reason Comments Rx Prior Authorization PA DENIED TROSPIUM CHLORIDE 20 MG TAB Encounter Details Date Type Department Care Team Description 03/05/2022 Clinical Communication Pharmacy Prior Vladimir George Rx Prior RO [phone] Authorization (MARTY DENIED TROSPIUM CHLORIDE 20 MG [...] many times do you More than three aclides es a week 05/17/2022 talk on the phone with family, friends, or neighbors? How often do you get together with friends Three times a wee k 05/17/2022 or relatives? How often do you attend judaism or Patient refused 2021 methodist services? 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 [address] [place], [place] [phone] (Octavio christensen) 08/20/2022 Appointment Radiology Claude Loaiza MPAS, P.A.-C. [address] [place], [place] [phone] (Octavio christensen) 08/22/2022 Virtual Visit Urology Gibran Ruvalcaba M.D. [address] [place] [phone] (Octavio christensen) documented as of this encounter Visit Diagnoses Not on filedocumented in this encounter Care Teams X Ray Nurse Relationship Specialty Start Date End Date Elsewhere, Pcp PCP - General Internal Medicine 01/14/22 documented as of this encounter
--- OUTSIDE RECORDS SUMMARY | 2022-08-09 13:41 | XMS_ITS | Encounter Summary ---
:[address] [facility] Address [address] [place] [address] Care Team Providers Name Role Phone Elsewhere, Pcp Primary Care Provider Unavailable Encounter Details Date Type Department Care Team Description 02/22/2022 Orders Only Department of Urology Chasidy Lakhani Neoplasm Of in [place], [facility] lonny Perdomo M.D. Bladder (HCC) (Primary [address] Dx) [place] [address] Social History Tobacco Use Types [...] you attend restorationism or Patient refused 2021 religion services? 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 [address] [place] [address] [phone] (Wo rk) 08/22/2022 Virtual Visit Urology Gibran Ruvalcaba M.D. [address] [place] [address] [phone] (Wo rk) documented as of this encounter Visit Diagnoses Diagnosis Malignant Neoplasm Of Bladder (HCC) - Pr imary documented in this encounter Care Teams Canal Lock Tender Chief Operator Relationship Specialty Start Date End Date Elsewhere, Pcp PCP - General Internal Medicine 01/14/22 documented as of this encounter
--- OUTSIDE RECORDS SUMMARY | 2022-08-09 13:41 | XMS_ITS | Encounter Summary ---
:1935 Author Organization [facility] Address [address] [place] [id number] Care Team Providers Name Role Phone Elsewhere, Pcp Primary Care Provider Unavailable Reason for Referral Outpatient (Routine) - Closed Specialty Diagnoses / Procedures Referred By Contact Refer red To Contact Radiation Oncology Diagnoses Malignant Neoplasm Of Bladder (HCC) Cori Reece M.D. [address] [address] Referral ID Status Reason Start Date Expiration Date Visits Requ ested Visits Authorized [id number] Closed 02/26/2022 02/26/2023 1 1 Reason for Visit Outpatient (Routine) - Closed Specialty Diagnoses / Procedures Referred By Contact Refer red To Contact Radiation Oncology Diagnoses Malignant Neoplasm Of Bladder (HCC) Cori Reece M.D. [address] [address] Referral ID Status Reason Start Date Expiration Date Visits Requ ested Visits Authorized [id number] Closed 02/26/2022 02/26/2023 1 1 Encounter Details Date Type Department Care Team Description 03/06/2022 Hospital Encounter Department of Manny Anderson Radiation Oncology Ashtyn Dubois Of Bladder (HCC) in [address] (Primary Dx) [place], [place] [address] [facility] [address] [place], [place] [phone] (Work) [phone] Social History Tobacco Use Types Packs/Day Years [...] you attend yazidism or Patient refused 2021 episcopal services? Do you belong to any clubs or No 05/17/2022 organizations such as yazidism groups, unions, [employer] or athletic groups, or school groups? 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 - 03/06/2022 9:00 AM CDT RADIATION ONCOLOGY CONSULTATION Supervising Color Expert: Dr. Manny Anderson Referring Provider: Cori Reece M.D. Primary Care Provider: Dr. Yamila English Home address: [address] [place] [phone] SUBJECTIVE History of present illness Mr. Henok [...] 01/24/2022 Other The patient presented to the [facility] ED with a chief complaint of increased [...] was performed by Dr. Kurtis Bach at [facility] and demonstrated a large medial lobe of the prostate, 3 cm, with papillary bladder mass, 5 cm, the left bladder wall obstructing the left UO. The patient reported a history of gross hematuria for months and difficulty emptying his bladder. Discussed that the patient ideally would need TURBT and bilateral retrogrades. Patient will need to see his change management administrator for surgical clearance, he is a poor candidate for surgery. 02/08/2022 Other Urology consultation at [facility] with Dr. David Day who recommended [...] urethral catheter and nephrostomy tube. Referral to [facility] provider. 03/12/2022 - Radiation Therapy Radiation Therapy Treatment Details (Noted on 03/05/2022) Site: Bladder Technique: No technique specified Goal: Curative Planned Treatment Start Date: 03/12/2022 In the clinic today, Mr. Henok Chery defers most questions and responses to his and hwrsrful-kl-ehs. He reports feeling fine but when prompted [...] as medically taking preference, but the patient's hyrshnjx-kj-rnr wished to hear from urology as to [...] or concerns. Dr. Manny Anderson is the professional housing consultant; please see attestation for further details. Harrison Lennon M.D., M.S. Associated attestation - Manny Anderson M.D. - 03/06/2022 11:36 PM CDT I saw and evaluated the patient and participated in the andrade portions of the service. I reviewed the documentation of Harrison Gits, M.D. and agree with his findings and [...] here today with his Miesha and his pgdbpnfz-fn-cmp Patricia. He has a Villarreal catheter in [...] Manny Anderson M.D. 03/06/2022 11:36 PM CDT [facility] [address] [place] [address] documented in this encounter Miscellaneous Notes Addendum Note - Vicki Hector C.N.AJluis - 03/06/2022 9:00 AM CDT Encounter addended by: Vicki Hector C.NTarun on: 03/07/2022 7:09 AM Actions taken: Letter saved documented in this encounter Plan of Treatment Upcoming Encounters Date Type Specialty Care Team Description 08/20/2022 Appointment Radiology Claude Loaiza MPAS, P.A.JadeCJluis [address] [place] [phone] (Octavio christensen) 08/20/2022 Appointment Radiology Claude Loaiza MPAS, P.A.-C. [address] [place] [phone] (Octavio christensen) 08/22/2022 Virtual Visit Urology Gibran Ruvalcaba M.D. [address] [place] [phone] (Octavio christensen) Scheduled Referrals Name Type Priority Associated Order Schedule Diagnoses Radiation Oncology Outpatient Referral Routine Malignant Neopl asm Once for 1 - Palliative / Of Bladder (HCC) Occurrenc es metastatic consult starting 03/06/2022 (clinic) until 2 documented as of this encounter Visit Diagnoses Diagnosis Malignant Neoplasm Of Bladder (HCC) - Pr imary documented in this encounter Care Teams Business Reporting Developer Relationship Specialty Start Date End Date Elsewhere, Pcp PCP - General Internal Medicine 01/14/22 documented as of this encounter
--- OUTSIDE RECORDS SUMMARY | 2022-08-09 13:42 | XMS_ITS | Encounter Summary ---
:1935 Author Organization [facility] Address [address] [place] [address] Care Team Providers Name Role Phone Elsewhere, Pcp Primary Care Provider Unavailable Encounter Details Date Type Department Care Team Description 02/13/2022 Clinical Communication Department of Urology David Day, in [facility] Juan., B.Ch., [place] B.A.O. [address] [facility] [address] [place] [phone] Social History Tobacco Use Types Packs/Day Years [...] you attend tenriism or Patient refused 2021 christianity services? 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 [address] [place] [phone] (Wo rk) 08/20/2022 Appointment Radiology Claude Loaiza MPAS, P.A.-C. [address] [place] [phone] (Wo rk) 08/22/2022 Virtual Visit Urology Gibran Ruvalcaba M.D. [address] [place] [phone] (Wo rk) documented as of this encounter Visit Diagnoses Diagnosis Hydronephrosis - Primary documented in this encounter Care Teams Umbrella Tipper Hand Relationship Specialty Start Date End Date Elsewhere, Pcp PCP - General Internal Medicine 01/14/22 documented as of this encounter
--- OUTSIDE RECORDS SUMMARY | 2022-08-09 13:42 | XMS_ITS | Encounter Summary ---
:1935 Author Organization [facility] Address [address] [place] [address] Care Team Providers Name Role Phone Elsewhere, Pcp Primary Care Provider Unavailable Encounter Details Date Type Department Care Team Description 02/15/2022 Hospital Encounter Department of David Day Hydron ephrosis; Laboratory Medicine in Roel Heredia, B.Ch., Ma Bladder [place], [facility] a B.A.O. [address] [place] [address] [address] [place] [phone] [phone] Social History Tobacco Use Types Packs/Day Years [...] you attend synagogue or Patient refused 2021 gnosticist services? 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 [address] [place], [place] [phone] (Octavio christensen) 08/20/2022 Appointment Radiology Claude Loaiza MPAS, P.A.-C. [address] [place], [place] [phone] (Octavio christensen) 08/22/2022 Virtual Visit Urology Gibran Ruvalcaba M.D. [address] [place], [place] [phone] (Wo rk) documented as of this encounter Procedures Procedure Name Priority Date/Time Associated Diagnosis Comme nts SARS CORONAVIRUS-2 Routine 02/15/2022 9:22 AM Hydronephr osis Results for this RNA, V CDT Mass Bladder procedure are i n the results section. documented in this encounter Results SARS Coronavirus-2 RNA, V Asymptomatic (02/15/2022 9:22 AM CDT) [facility] Method Time Signature SARS-CoV-2 Swab, 02/15/2022 [...] pe rformed using the Aptima SARS-CoV-2 assay ([employer] on the [employer]Its tem under emergency use authorization (EUA) by the U.S. Food and Drug Administ herman. Fact sheets for this EUA assay can be fo und at the following links: For Healthcare Providers: https://www.fd a.gov/media/528279/download For Patients: https://www.fda.gov/media/ 487689/download Specimen Anatomical Collection Method Collection Time Receive d Time (Source) Location / / Volume Laterality Varies 02/15/2022 9:22 AM 3:08 (Nasopharynx) CDT PM CDT David eSvilla, B.Ch., B.A.O. LAB MICROBIOLOGY - GENERAL ORDERABLES Performing Organization Address City/State/ZIP Code Phon e Number [facility]- [address] [place] [address] [place] [address] [address] documented in this encounter Visit Diagnoses Diagnosis Hydronephrosis Mass Bladder documented in this encounter Additional Health Concerns Infection Onset Date Last Indicated Resolved Time COVID19 Pending 02/15/2022 02/15/2022 02/15/2022 10:28 PM CDT documented as of this encounter Care Teams Apron Man Relationship Specialty Start Date End Date Elsewhere, Pcp PCP - General Internal Medicine 01/14/22 documented as of this encounter
--- OUTSIDE RECORDS SUMMARY | 2022-08-09 13:42 | XMS_ITS | Encounter Summary ---
:1935 Author Organization [facility] Address [address] [place] [address] Care Team Providers Name Role Phone Unavailable Primary Care Provider Unavailable Encounter Details Date Type Department Care Team Description 06/05/2021 Orders Only [facility] PCP [facility] MNGordon Henderson, D.OJluis [address] [place] [address] (Wo rk) Social History Tobacco [...] you attend latter-day or Patient refused 2021 protestant services? 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 [address] [place] [phone] (Wo rk) 08/20/2022 Appointment Radiology Claude Loaiza MPAS, PJluisA.-C. [address] [place] [phone] (Wo rk) 08/22/2022 Virtual Visit Urology Gibran Ruvalcaba M.D. [address] [place] [phone] (Wo rk) documented as of this encounter Visit Diagnoses Not on filedocumented in this encounter
--- OUTSIDE RECORDS SUMMARY | 2022-08-09 13:42 | XMS_ITS | Encounter Summary ---
:1935 Author Organization [facility] Address [address] [place] [address] Care Team Providers Name Role Phone Elsewhere, Pcp Primary Care Provider Unavailable Encounter Details Date Type Department Care Team Description 02/14/2022 Clinical Communication Department of Urology Lisbeth Nguyen in [facility] [phone] [address] [facility] ([place]) [place] [address] Social History Tobacco Use Types Packs/Day Years [...] you attend baptist or Patient refused 2021 baptism services? 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 [address] [place] [phone] (Wo rk) 08/20/2022 Appointment Radiology Claude Loaiza MPAS P.AJluis-C. [address] [place] [address] [phone] (Wo rk) 08/22/2022 Virtual Visit Urology Gibran Ruvalcaba M.D. [address] [place] [address] [phone] (Wo rk) documented as of this encounter Visit Diagnoses Not on filedocumented in this encounter Care Teams Filer Metal Patterns Relationship Specialty Start Date End Date Elsewhere, Pcp PCP - General Internal Medicine 01/14/22 documented as of this encounter
--- OUTSIDE RECORDS SUMMARY | 2022-08-09 13:42 | XMS_ITS | Encounter Summary ---
:1935 Author Organization [facility] Address [address] [place] [address] Care Team Providers Name Role Phone Elsewhere, Pcp Primary Care Provider Unavailable Encounter Details Date Type Department Care Team Description 02/15/2022 Clinical Communication Department of Urology David Day, in [facility] Juan., B.Ch., [place] B.A.O. [address] [facility] [address] [place] [phone] Social History Tobacco Use Types Packs/Day Years [...] you attend confucianist or Patient refused 2021 latter day services? 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 - 02/15/2022 2:01 PM CDT Spoke with the daughter over the phone. Patient has seen his local metal treater today and he clearedhim for general anesthesia. Informed the patient and his family that if he wants to have the procedure TURBT to be done here at [facility] he will still require to have clearance [...] for Friday. Desiree can be reached at [phone]. documented in this encounter Plan of Treatment Upcoming Encounters Date Type Specialty Care Team Description 08/20/2022 Appointment Radiology Kandler, ClaudeGARCIA Esquivel P.A.-C. [address] [place], [place] [phone] (Wo rk) 08/20/2022 Appointment Radiology Claude Loaiza MPAS, P.A.-C. [address] [place], [place] 55 [phone] (Wo rk) 08/22/2022 Virtual Visit Urology Gibran Ruvalcaba M.D. [address] [place], [place] 55 [phone] (Wo rk) documented as of this encounter Visit Diagnoses Diagnosis Hematuria - Primary documented in this encounter Additional Health Concerns Infection Onset Date Last Indicated Resolved Time COVID19 Pending 02/15/2022 02/15/2022 02/15/2022 10:28 PM CDT COVID19 Pending 02/20/2022 02/20/2022 02/20/2022 8:04 PM CDT documented as of this encounter Care Teams Research Chef Relationship Specialty Start Date End Date Elsewhere, Pcp PCP - General Internal Medicine 01/14/22 documented as of this encounter
--- OUTSIDE RECORDS SUMMARY | 2022-08-09 13:42 | XMS_ITS | Encounter Summary ---
:1935 Author Organization [facility] Address [address] [place] [address] Care Team Providers Name Role Phone Unavailable Primary Care Provider Unavailable Reason for Visit Appointment Request (Routine) - Closed Specialty Diagnoses / Procedures Referred By Contact Refer red To Contact Nephrology and Slava Edwards Hypertension Ashtyn [address] [place] [address] Referral ID Status Reason Start Date Expiration Date Visits Requ ested Visits Authorized [id number] Closed 08/03/2020 08/03/2021 1 1 Encounter Details Date Type Department Care Team Description 08/23/2020 External Outreach Division of Nida Castro on And Nephrology and Ross Chiu Jr., Chronic Kidn ey Hypertension in D.O. Disease Stage 1 To 4 [place], [place] [address] [facility] [address] [place] [address] [phone] Social History Tobacco Use Types Packs/Day Years [...] you attend uatsdin or Patient refused 2021 anabaptist services? 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 - 08/23/2020 4:00 PM CST NO show [place] CKD S COUNTER CLERK documented in this encounter Plan of Treatment Upcoming Encounters Date Type Specialty Care Team Description 08/20/2022 Appointment Radiology Claude Loaiza MPAS, Ulises.-CJluis [address] [place] [address] [phone] (Wo fermin) 08/20/2022 Appointment Radiology Claude Loaiza MPAS, P.A.-CJluis [address] [place] [address] [phone] (Wo rk) 08/22/2022 Virtual Visit Urology Gibran Ruvalcaba M.D. [address] [place] [address] [phone] (Wo rk) documented as of this encounter Visit Diagnoses Diagnosis Hypertension And Chronic Kidney Disease Stage 1 To 4 documented in this encounter
--- OUTSIDE RECORDS SUMMARY | 2022-08-09 13:42 | XMS_ITS | Encounter Summary ---
:1935 Author Organization [facility] Address [address] [place] [address] Care Team Providers Name Role Phone Unavailable Primary Care Provider Unavailable Reason for Referral Outpatient (Routine) - Closed Specialty Diagnoses / Procedures Referred By Contact Refer red To Contact Dermatology Aashish Pandey M.D . [facility] [address] [place] [address] Referral ID Status Reason Start Date Expiration Date Visits Requ ested Visits Authorized [id number] Closed 08/03/2019 08/02/2020 1 1 Reason for Visit Reason Comments Follow-up Appointment Request (Routine) - Closed Specialty Diagnoses / Procedures Referred By Contact Refer red To Contact Dermatology Referral ID Status Reason Start Date Expiration Date Visits Requ ested Visits Authorized [id number] Closed 05/25/2019 05/24/2020 1 Encounter Details Date Type Department Care Team Description 08/03/2019 Office Visit Department of Aashish Pandey, Keratosis Actinic (Primary Dx); Dermatology in [facility] Cancer Skin Squamous Cell Personal Histo [place], [place] [address] [place] [phone] Social History Tobacco Use Types Packs/Day Years [...] you attend evangelical or Patient refused 2021 buddhist services? Do you belong to any clubs or No 05/17/2022 organizations such as evangelical groups, unions, fraWorld[employer] or athletic groups, or school groups? 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 Juarez at [facility]. 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 The largest of his squamous cell carcinomas involving his left cheek was initially treated with CO2 laser in [place] and then Mohs surgery thereafter. 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 Hare. MEDICAL HISTORY 1. 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 Hare??at [facility] on 10/27/17 2. Squamous cell carcinoma in [...] surgery on 07/27/[address] Juarez at [facility] OBJECTIVE PHYSICAL EXAMINATION General: Awake, alert, in [...] a total of 29 lesion(s) with two 47-51-qzoesn freeze-thaw cycles of liquid nitrogen cryoth erapy. [...] surgery on 07/27/[address] Juarez at [facility] No clinical evidence of local recurrence today. [...] Radiology Claude Loaiza MPAS, P.A.-C. [address] [place], [place] [phone] (Wo rk) 08/20/2022 Appointment Radiology Claude Loaiza MPAS, P.AJluis-Aram. 200 [place], [place] 55 [phone] (Wo rk) 08/22/2022 Virtual Visit Urology Gibran Ruvalcaba M.D. 200 [place], [place] [phone] (Wo rk) Scheduled Referrals Name Type Priority Associated Order Schedule Diagnoses Dermatology office Outpatient Referral Routine Ex pected: visit (clinic) 08/03/2019 (Approximate), Expires: 08/03/2022 documented as of this encounter Visit Diagnoses Diagnosis Keratosis Actinic - Primary Cancer Skin Squamous Cell Personal Histo ry documented in this encounter
--- OUTSIDE RECORDS SUMMARY | 2022-08-09 13:42 | XMS_ITS | Encounter Summary ---
:1935 Author Organization [facility] Address [address] [place] [address] Care Team Providers Name Role Phone Unavailable [...] you attend baptism or Patient refused 2021 yarsani services? 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 [address] [place] [phone] (Wo rk) 08/20/2022 Appointment Radiology Claude Loaiza MPAS, P.A.-C. [address] [place] [phone] (Wo rk) 08/22/2022 Virtual Visit Urology Gibran Ruvalcaba M.D. [address] [place], [place] 55 [phone] (Wo rk) documented as [...]
--- OUTSIDE RECORDS SUMMARY | 2022-08-09 13:42 | XMS_ITS | Encounter Summary ---
:1935 Author Organization [facility] Address [address] [place] [address] Care Team Providers Name Role Phone Elsewhere, Pcp Primary Care Provider Unavailable Reason for Visit Reason Comments Abnormal Lab Encounter Details Date Type Department Care Team Description 01/14/2022 Emergency [facility] Samanta Barfield, Pablo colón (Primary Dx) Emergency Department M.D. [address] [place] [address] [address] [place] [address] [phone] Social History Tobacco Use Types Packs/Day Years [...] you attend temple or Patient refused 2021 sabianism services? 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 - 01/14/2022 7:30 PM CDT SUBJECTIVE CHIEF COMPLAINT/REASON FOR VISIT Abnormal Lab HISTORY OF PRESENT ILLNESS This is an 86-year-old gentleman referred here because of an elevated creatinine that was found using a point of care test at [place]. Patient had an angiogram last Friday without [...] 01/14/22 1920 01/14/22 1615 01/14/22 1615 01/14/22 161 36.8 ??C 78 89 18 136/76 95 [...] follow up with his primary provider in [place] where he can continue to have the [...] of 01/14/221950 Hematuria Samanta Barfield M.D. 01/14/221933 Samnata Barfield M.D. 01/14/221935 Deysi Kuhn R.N. - [...] Radiology Claude Loaiza MPAS, P.A.-C. [address] [place] [address] [phone] (Octavio christensen) 08/20/2022 Appointment Radiology Claude Loaiza MPAS P.A.-C. [address] [place] [address] [phone] (Octavio christensen) 08/22/2022 Virtual Visit Urology Gibran Ruvalcaab M.D. [address] [place] [address] [phone] (Octavio rk) documented as of [...] MUSE QTC Interval 470 ms MUSE R [place] -8 degrees MUSE T Wave [place] 111 degrees MUSE Specimen Anatomical Collection Method [...] City/State/ZIP Code Phon e Number [facility] - [address] [place], [place] [address] [facility] [place] [address] [facility] [address] (ABNORMAL) CBC with [...] M.D. LAB BLOOD ADD-ON Performing Organization Address City/[facility] Phon e Number [facility] - [address] [place], [place] [address] [facility] [place] [address] [place] [address] Lipase (01/14/2022 5:03 PM CDT) P athologist Signature Lipase, S 17 13 - 60 U/L 01/14/2022 6:03 DTL PM CDT Specimen Anatomical Collection Method Collection Time Receive d Time (Source) Location / / Volume Laterality Blood (Blood, 01/14/2022 5:03 PM 01/15/20 22 5:37 Venous) CDT PM CDT Samanta Barfield M.D. LAB BLOOD ADD-ON Performing Organization Address City/State/[facility] Phon e Number [facility] - [address] [place], [place] [address] [facility] [place] [address] (ABNORMAL) Hepatic Function Panel (01/14/2022 5:03 PM [...] M.D. LAB BLOOD ADD-ON Performing Organization Address City/State/[facility] Code Phon e Number [facility] - [address] [place], [place] [address] [facility] [place] [address] [facility] 200 [facility] (ABNORMAL) Basic Metabolic Panel (01/14/2022 5:03 [...] CDT eGFR-Black/Afric 79 >=60 01/14/2022 DTL an Luxembourger mL/min/BSA 6:09 PM CDT Comment: ----ADDITIONAL INFORMATION---- [...] City/State/ZIP Code Phon e Number [facility] - [address] [place], [place] [address] [facility] [place] [address] [facility] 200 [facility] ECG 12 Lead (01/14/2022 4:25 PM CDT) P athologist Signature Ventricular Rate 69 BPM MUSE ECG/Min [place] Interval 238 ms MUSE QRSD Interval 102 ms MUSE QT Interval 428 ms MUSE QTC Interval 459 ms MUSE P [place] 65 degrees MUSE R [place] -3 degrees MUSE T Wave [place] 83 degrees MUSE Specimen Anatomical Collection Method [...] injection documented in this encounter Care Teams Diamond Cutter Relationship Specialty Start Date End Date Elsewhere, Pcp PCP - General Internal Medicine 01/14/22 documented as of this encounter
--- OUTSIDE RECORDS SUMMARY | 2022-08-09 13:42 | XMS_ITS | Encounter Summary ---
:1935 Author Organization [facility] Address [address] [place] [address] Care Team Providers Name Role Phone Elsewhere, Pcp Primary Care Provider Unavailable Encounter Details Date Type Department Care Team Description 02/07/2022 Hospital Encounter Department of Laboratory Calin Day, Mass Bladder Medicine in [place], Juan., B.Ch., [place] B.A.O. [address] [place] [address] [phone] Social History Tobacco Use Types Packs/Day Years [...] you attend latter-day or Patient refused 2021 christian services? 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 [address] [place], [place] [phone] (Octavio christensen) 08/20/2022 Appointment Radiology Claude Loaiza MPAS, P.A.-C. [address] [place], [place] 55 [phone] (Octavio christensen) 08/22/2022 Virtual Visit Urology Gibran Ruvalcaba M.D. [address] [place], [place] 55 [phone] (Wo rk) documented as [...] (02/07/2022 9:26 AM CDT) [facility] At [facility] Time Signature Urine Culture Mixed 02/08/2022 [facility] jonatan. (A) 11:51 AM CDT Specimen Anatomical Collection Method Collection Time Receive d Time (Source) Location / / Volume Laterality Urine (Urine, 02/07/2022 9:26 AM 02/08/20 3:07 Midstream) CDT PM CDT Comment: Specimen Source Site: Urine David Sevilla, B.Ch., B.A.O. LAB MICROBIOLOGY - GENERAL ORDERABLES Performing Organization Address City/State/ZIP Code Phon e Number [facility]- [address] [place] [address] [place] [address] [address] (ABNORMAL) Urinalysis with Microscopic: Urine, Midstream (02/07/2022 9:26 AM CDT) Analysis Performed At [facility] Time Signature Source Urine, Urine, 02/07/2022 NPCL [...] 8.0 02/07/2022 10:56 AM CDT NPCL Specific [place] 1.020 1.001 - 1.035 02/07/2022 10:56 AM [...] 02/08/20 9:26 Midstream) CDT AM CDT David Sevilla B.Tj., B.A.O. LAB URINE ORDERABL ES Performing Organization Address City/State/ZIP Code Phon e Number [facility]- [address] [place], [place] [address] [facility] NPCL [facility] [place] [address] [place] [address] [address] [facility] [address] [facility] [place] [address] documented in this encounter Visit Diagnoses Diagnosis Mass Bladder documented in this encounter Care Teams Apartment Maintenance Worker Relationship Specialty Start Date End Date Elsewhere, Pcp PCP - General Internal Medicine 01/14/22 documented as of this encounter
--- OUTSIDE RECORDS SUMMARY | 2022-08-09 13:42 | XMS_ITS | Encounter Summary ---
:1935 Author Organization [facility] Address [address] [place] [address] Care Team Providers Name Role Phone Elsewhere, Pcp Primary Care Provider Unavailable Encounter Details Date Type Department Care Team Description 02/13/2022 Clinical Communication Department of Urology David Aguero, in [facility] Juan., B.Ch., [place] B.A.O. [address] [facility] [address] [place] [phone] [phone] Social History Tobacco Use Types Packs/Day Years [...] you attend congregational or Patient refused 2021 oriental orthodox services? 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 [address] [place], [place] [phone] (Octavio christensen) 08/20/2022 Appointment Radiology Claude Loaiza MPAS, P.A.-C. [address] [place], [place] [phone] (Octavio christensen) 08/22/2022 Virtual Visit Urology Gibran Ruvalcaba M.D. [address] [place], [place] [phone] (Wo rk) documented as of this encounter Results SARS Coronavirus-2 RNA, V Asymptomatic (02/15/2022 9:22 AM CDT) [facility] Method Time Signature SARS-CoV-2 Swab, 02/15/2022 [...] pe rformed using the Aptima SARS-CoV-2 assay ([employer] on the Ama[employer] tem under emergency use authorization (EUA) by the U.S. Food and Drug Administ ration. Fact sheets for this EUA assay can be fo und at the following links: For Healthcare Providers: https://www.fd a.gov/media/412134/download For Patients: https://www.fda.gov/media/ 407505/download Specimen Anatomical Collection Method Collection Time Receive d Time (Source) Location / / Volume Laterality Varies 02/15/2022 9:22 AM 3:08 (Nasopharynx) CDT PM CDT David Sevilla, B.Ch., B.A.O. LAB MICROBIOLOGY - GENERAL ORDERABLES Performing Organization Address City/State/ZIP Code Phon e Number [facility]- [address] [place] [address] [place] [address] System [address] documented in this encounter Visit Diagnoses Diagnosis Hydronephrosis - Primary Mass Bladder documented in this encounter Care Teams Daub Color Mixer Relationship Specialty Start Date End Date Elsewhere, Pcp PCP - General Internal Medicine 01/14/22 documented as of this encounter
--- OUTSIDE RECORDS SUMMARY | 2022-08-09 13:42 | XMS_ITS | Encounter Summary ---
:[address] [facility] Address [address] [place] [address] Care Team Providers Name Role Phone Unavailable Primary Care Provider Unavailable Encounter Details Date Type Department Care Team Description 07/31/2020 Clinical Communication Department of Aashish Pandey, Dermatology in [place], [place] [address] [place] [phone] Social History Tobacco Use Types Packs/Day Years [...] attend latter day or Patient refused 2021 faith services? 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 [place]: [phone] [place]: [phone] [place]: [phone] [place]: [phone] [place]: [phone] [place]: [phone] [facility]: [phone] Andres Laurent [place], [place], [facility]: [phone] [place]:[phone] [place]: [phone] Thank you for trusting your health care to [facility]. documented in this encounter Plan of Treatment Upcoming Encounters Date Type Specialty Care Team Description 08/20/2022 Appointment Radiology Claude Loaiza MPAS, P.A.-C. [address] [place] [address] [phone] (Octavio christensen) 08/20/2022 Appointment Radiology Claude Loaiza MPAS, P.A.-C. [address] [place] [address] [phone] (Octavio christensen) 08/22/2022 Virtual Visit Urology Gibran Ruvalcaba M.D. [address] [place] [address] [phone] (Wo rk) documented as of this encounter Visit Diagnoses Not on filedocumented in this encounter
--- OUTSIDE RECORDS SUMMARY | 2022-08-09 13:42 | XMS_ITS | Encounter Summary ---
:1935 Author Organization [facility] Address [address] [place] [address] Care Team Providers Name Role Phone Elsewhere, Pcp Primary Care Provider Unavailable Encounter Details Date Type Department Care Team Description 01/14/2022 Documentation Division of Nephrology and Alicia Jeffrey, Hypertension in [place], Ashtyn, Ph.D. [address] [place] [phone] (Wo rk) Social History Tobacco Use Types [...] you attend zoroastrianism or Patient refused 2021 religion services? 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 [address] [place] [address] [phone] (Wo rk) 08/20/2022 Appointment Radiology Claude Loaiza MPAS, P.A.-C. [address] [place] [address] [phone] (Wo rk) 08/22/2022 Virtual Visit Urology Gibran Ruvalcaba M.D. [address] [place] [address] [phone] (Wo rk) documented as of this encounter Visit Diagnoses Not on filedocumented in this encounter Care Teams Wash Oil Cooler Operator Relationship Specialty Start Date End Date Elsewhere, Pcp PCP - General Internal Medicine 01/14/22 documented as of this encounter
--- OUTSIDE RECORDS SUMMARY | 2022-08-09 13:42 | XMS_ITS | Encounter Summary ---
:1935 Author Organization [facility] Address [address] [place] [address] Care Team Providers Name Role Phone Elsewhere, Pcp Primary Care Provider Unavailable Reason for Referral MRI/CAT/PET Scan (Routine) - Closed Specialty Diagnoses / Procedures Referred By Contact Refer red To Contact Radiology Diagnoses Malignant Neoplasm Of Bladder (HCC) David Day M.B., [facility] Procedures CT Urogram without and with IV Contrast B.Ch., B.A.O. 200 [place], [place] [address] Referral ID Status Reason Start Date Expiration Date Visits Requ ested Visits Authorized [id number] Closed 02/08/2022 02/08/2023 1 1 Reason for Visit MRI/CAT/PET Scan (Routine) - Closed Specialty Diagnoses / Procedures Referred By Contact Refer red To Contact Radiology Diagnoses Malignant Neoplasm Of Bladder (HCC) David Day M.B., [facility] Procedures CT Urogram without and with IV Contrast B.Ch., B.A.O. 200 [place], [place] [address] Referral ID Status Reason Start Date Expiration Date Visits Requ ested Visits Authorized [id number] Closed 02/08/2022 02/08/2023 1 1 Encounter Details Date Type Department Care Team Description 02/11/2022 Hospital Encounter Department of David Day Malign ant Neoplasm Radiology, Juan Bridges., B.Ch., Of [facility] ER in [place], [place] [address] [place] [phone] Social History Tobacco Use Types Packs/Day Years [...] you attend lutheran or Patient refused 2021 mandaen services? 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 [address] [place] [address] [phone] (Wo rk) 08/20/2022 Appointment Radiology Claude Loaiza MPAS, P.A.-C. [address] [place] [address] [phone] (Octavio rk) 08/22/2022 Virtual Visit Urology Gibran Ruvalcaba M.D. [address] [place] [address] [phone] (Wo rk) documented as of [...] limits of normal. David Giovanna Barb Sevilla, BChano., B.A.O. IMG CT PROCEDURES documented in this [...] Orders documented in this encounter Care Teams Job Estimator Relationship Specialty Start Date End Date Elsewhere, Pcp PCP - General Internal Medicine 01/14/22 documented as of this encounter
--- OUTSIDE RECORDS SUMMARY | 2022-08-09 13:42 | XMS_ITS | Encounter Summary ---
:[address] [facility] Address [address] [place] [address] Care Team Providers Name Role Phone Elsewhere, Pcp Primary Care Provider Unavailable Encounter Details Date Type Department Care Team Description 02/08/2022 Ancillary Procedure Department of David Day Neoplasm Radiology in M, Juan., B.Ch., Of Bladder ( HCC) Mary D, [place] B.A.O. [address] [facility] [address] [place] [phone] Social History Tobacco Use Types Packs/Day Years [...] you attend episcopal or Patient refused 2021 yazdanism services? 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 [address] [place] [address] [phone] (Wo rk) 08/20/2022 Appointment Radiology Claude Loaiza MPAS, P.A.-C. [address] [place] [address] [phone] (Wo rk) 08/22/2022 Virtual Visit Urology Gibran Ruvalcaba M.D. [address] [place] [address] [phone] (Wo rk) documented as of [...] (HCC) documented in this encounter Care Teams Director Of Field Service Relationship Specialty Start Date End Date Elsewhere, Pcp PCP - General Internal Medicine 01/14/22 documented as of this encounter
--- OUTSIDE RECORDS SUMMARY | 2022-08-09 13:42 | XMS_ITS | Encounter Summary ---
:1935 Author Organization [facility] Address [address] [place] [address] Care Team Providers Name Role Phone Unavailable Primary Care Provider Unavailable Reason for Referral Outpatient (Routine) - Closed Specialty Diagnoses / Procedures Referred By Contact Refer red To Contact Dermatology Aashish Pandey M.D . [facility] [address] [place] [phone] Referral ID Status Reason Start Date Expiration Date Visits Requ ested Visits Authorized Closed 05/01/2020 05/01/2021 1 1 Scheduling Instructions Return visit in 2-3 months. 30 minutes Reason for Visit Reason Comments Skin Check Encounter Details Date Type Department Care Team Description 05/01/2020 Office Visit Department of Aashish Pandey, Keratosis Actinic Dermatology in [place] (Primary Dx) [place], [place] [address] [phone] Social History Tobacco Use Types Packs/Day Years [...] you attend mandaen or Patient refused 2021 christian services? Do you belong to any clubs or No 05/17/2022 organizations such as mandaen groups, unions, fraComply Serve or athletic groups, or school groups? 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 Hare??at [facility] on 10/27/17 2. Squamous cell carcinoma [...] 07/27/[address] Juarez at [facility] 6. Negative for melanoma FAMILY HISTORY No [...] He also has 1 AK involving the [id number] dorsal finger and 1 involving the right [...] Radiology Claude Loaiza MPAS, P.A.-C. [address] [place] [address] [phone] (Wo rk) 08/20/2022 Appointment Radiology Claude Loaiza MPAS, P.A.-C. [address] [place] [address] [phone] (Wo rk) 08/22/2022 Virtual Visit Urology Gibran Ruvalcaba M.D. [address] [place] [address] [phone] (Wo rk) Scheduled Referrals Name Type Priority Associated Order Schedule Diagnoses Dermatology office Outpatient Referral Routine Ex pected: visit (clinic) 08/01/2020 (Approximate), Expires: 05/01/2023 documented as of this encounter Visit Diagnoses Diagnosis Keratosis Actinic - Primary documented in this encounter
--- OUTSIDE RECORDS SUMMARY | 2022-08-09 13:42 | XMS_ITS | Encounter Summary ---
:1935 Author Organization [facility] Address [address] [place] [address] Care Team Providers Name Role Phone Elsewhere, Pcp Primary Care Provider Unavailable Reason for Referral MRI/CAT/PET Scan (Routine) - Closed Specialty Diagnoses / Procedures Referred By Contact Refer red To Contact Radiology Diagnoses Malignant Neoplasm Of Bladder (HCC) David Day M.B., [facility] Procedures CT Urogram without and with IV Contrast B.Ch., B.A.O. 200 [place] [address] Referral ID Status Reason Start Date Expiration Date Visits Requ ested Visits Authorized [id number] Closed 02/08/2022 02/08/2023 1 1 Reason for Visit Appointment Request (Routine) - Closed Specialty Diagnoses / Procedures Referred By Contact Refer red To Contact Urology Diagnoses Mass Bladder Referral ID Status Reason Start Date Expiration Date Visits Requ ested Visits Authorized [id number] Closed 01/30/2022 01/30/2023 1 1 Encounter Details Date Type Department Care Team Description 02/08/2022 Comprehensive Visit Department of David Day Neoplasm Urology in [place], Of Bladder (HCC ) [place], [place] B.Ch., B.A.O. 200 [facility] 200 [place] [phone] [phone] Social History Tobacco Use Types Packs/Day Years [...] you attend presybeterian or Patient refused 2021 cheondoism services? Do you belong to any clubs or No 05/17/2022 organizations such as presybeterian groups, unions, fraIntellution or athletic groups, or school groups? 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 On December [...] Radiology Claude Loaiza MPAS, P.A.-C. [address] [place] [address] [phone] (Octavio christensen) 08/20/2022 Appointment Radiology Claude Loaiza MPAS, P.A.-C. [address] [place] [address] [phone] (Octavio rk) 08/22/2022 Virtual Visit Urology Gibran Ruvalcaba M.D. [address] [place] [address] [phone] (Octavio christensen) documented as of [...] (HCC) documented in this encounter Care Teams Clinical Coordinator Relationship Specialty Start Date End Date Elsewhere, Pcp PCP - General Internal Medicine 01/14/22 documented as of this encounter
--- OUTSIDE RECORDS SUMMARY | 2022-08-09 13:42 | XMS_ITS | Encounter Summary ---
:1935 Author Organization [facility] Address [address] [place] [address] Care Team Providers Name Role Phone Unavailable [...] or relatives? How often do you attend alevism or Patient refused 2021 muslim services? 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 [address] [place] [phone] (Wo rk) 08/20/2022 Appointment Radiology Claude Loaiza MPAS, P.A.-C. [address] [place] [address] [phone] (Wo rk) 08/22/2022 Virtual Visit Urology Gibran Ruvalcaba M.D. [address] [place], [place] [phone] (Wo rk) documented as [...]
--- OUTSIDE RECORDS SUMMARY | 2022-08-09 13:42 | XMS_ITS | Encounter Summary ---
:1935 Author Organization [facility] Address [address] [place] [address] Care Team Providers Name Role Phone Unavailable Primary Care Provider Unavailable Reason for Referral Outpatient (Routine) - Closed Specialty Diagnoses / Procedures Referred By Contact Refer red To Contact Dermatology Aashish Pandey M.D . [address] [address] Referral ID Status Reason Start Date Expiration Date Visits Requ ested Visits Authorized [id number] Closed 10/04/2019 10/03/2020 1 1 Scheduling Instructions 915 am recheck lesion HETIC CHEMIST Reason for Visit Reason Comments Actinic Keratosis Recheck Outpatient (Routine) - Closed Specialty Diagnoses / Procedures Referred By Contact Refer red To Contact Dermatology [facility] . [facility] [address] [phone] Referral ID Status Reason Start Date Expiration Date Visits Requ ested Visits Authorized [id number] Closed 08/03/2019 08/02/2020 1 1 Encounter Details Date Type Department Care Team Description 10/04/2019 Office Visit Department of Aashish Pandey Nevi Multi ple (Primary Dx); Dermatology in [place] Keratosis Actinic; [address] Keratosis Seborrheic; [address] [place], [place] Cancer Skin Squamous Cell [place] [address] [phone] Social History Tobacco Use Types Packs/Day Years [...] you attend temple or Patient refused 2021 episcopalian services? Do you belong to any clubs or No 05/17/2022 organizations such as temple groups, unions, fraMBS HOLDINGS or athletic groups, or school groups? 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 Juarez at [facility]. He denies a personal or family history for melanoma. The patient has no other concerns today. MEDICAL HISTORY 1. 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 Hare??at [facility] on 10/27/17 2. Squamous cell carcinoma [...] surgery on 07/27/[address] Juarez at [facility] 6. Negative for melanoma FAMILY HISTORY Negative for melanoma OBJECTIVE PHYSICAL EXAMINATION General: Awake, alert, in no acute distress, and with appropriate affect. Skin: Examination of the face and upper extremities reveals actinic keratoses, including the right adventist x2, right cheek x2, right ear antihelix [...] a total of 20 lesion(s) with two 13-06-evghun freeze-thaw cycles of liquid nitrogen cryoth erapy. [...] Electronically Signed: cookie Kelly. 10/04/2019. 9:59 AM SYNTHETIC CHEMIST. Aashish Dubon M.D., personally performed the services described in this documentation. All medical record entries made by the scribe were at my direction and in my presence. I have reviewed the chart and discharge instructions (if applicable) and agree that the record reflects my personal performance and is accurate and complete. Aashish Pandey M.D. . 10/04/2019. 10:17 AM SYNTHETIC CHEMIST. HETIC CHEMIST documented in this encounter Plan of Treatment Upcoming Encounters Date Type Specialty Care Team Description 08/20/2022 Appointment Radiology Claude Loaiza MPAS, P.A.-C. [address] [place] [phone] (Wo rk) 08/20/2022 Appointment Radiology Claude Loaiza MPAS, P.A.-C. [address] [place] [phone] (Wo rk) 08/22/2022 Virtual Visit Urology Gibran Ruvalcaba M.D. [address] [place] [phone] (Wo fermin) Scheduled Referrals Name Type Priority Associated Order Schedule Diagnoses Dermatology office Outpatient Referral Routine Ex pected: visit (clinic) 11/02/2019 (Approximate), Expires: 10/04/2022 documented as of this encounter Visit Diagnoses Diagnosis Nevi Multiple - Primary Keratosis Actinic Keratosis Seborrheic Cancer Skin Squamous Cell Personal Histo ry documented in this encounter
--- OUTSIDE RECORDS SUMMARY | 2022-08-09 13:42 | XMS_ITS | Encounter Summary ---
:1935 Author Organization [facility] Address [address] [place] [address] Care Team Providers Name Role Phone Elsewhere, Pcp Primary Care Provider Unavailable Encounter Details Date Type Department Care Team Description 02/07/2022 Hospital Encounter Department of Laboratory Calin Day, Mass Bladder Medicine in [place], Juan., B.Ch., [place] B.A.O. [address] [place] [phone] Social History Tobacco Use Types Packs/Day Years [...] you attend nondenominational or Patient refused 2021 hinduism services? 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 [address] [place], [place] [phone] (Octavio christensen) 08/20/2022 Appointment Radiology Claude Loaiza MPAS, P.A.-C. [address] [place], [place] [phone] (Octavio christensen) 08/22/2022 Virtual Visit Urology Gibran Ruvalcaba M.D. [address] [place], [place] [phone] (Wo rk) documented as [...] Code Phon e Number [facility]- [address] LAB NPRG [place] [address] [facility] [address] (ABNORMAL) Basic Metabolic Panel (02/07/2022 9:26 AM [...] CDT eGFR-Black/Afri 72 >=60 02/07/2022 NPRG can Guamanian mL/min/BSA 11:13 AM CDT Comment: ----ADDITIONAL INFORMATION---- [...] Code Phon e Number [facility]- [address] [place], [place] [address] [place] [address] [place] [address] [facility] [address] Albumin (02/07/2022 9:26 AM CDT) athologist Signature Albumin, P 3.9 3.5 - 5.0 02/07/2022 NPRG g/dL 11:13 AM CDT Specimen Anatomical Collection Method Collection Time Receive d Time (Source) Location / / Volume Laterality Blood (Blood, 02/07/2022 9:26 AM 02/08/20 22 Venous) CDT 10:21 AM CDT David Sevilla, BChano., B.A.O. LAB BLOOD ADD-ON Performing Organization Address City/State/ZIP Code Phon e Number [facility]- [address] [place] [address] [place] [facility] NPRG [facility] [place] [address] (ABNORMAL) CBC with Differential, Blood (02/07/2022 9:26 AM CDT) [facility] Method Time Signature Hemoglobin 9.6 (L) 13.2 [...] Code Phon e Number [facility]- [address] [place] [address] [place] [address] [address] documented in this encounter Visit Diagnoses Diagnosis Mass Bladder documented in this encounter Care Teams Laryngologist Relationship Specialty Start Date End Date Elsewhere, Pcp PCP - General Internal Medicine 01/14/22 documented as of this encounter
--- OUTSIDE RECORDS SUMMARY | 2022-08-09 13:42 | XMS_ITS | Encounter Summary ---
:1935 Author Organization [facility] Address [address] [place] [address] Care Team Providers Name Role Phone Elsewhere, Pcp Primary Care Provider Unavailable Reason for Referral MRI/CAT/PET Scan (Routine) - Closed Specialty Diagnoses / Procedures Referred By Contact Refer red To Contact Radiology Diagnoses Mass Bladder Jeanna Aguero M.B., [facility] Procedures CT Abdomen and/or Pelvis Biopsy CT Biopsy Other B.Ch., B.A.O. 200 [place] [address] Referral ID Status Reason Start Date Expiration Date Visits Requ ested Visits Authorized [id number] Closed 02/12/2022 02/12/2023 1 1 utpatient (Routine) - Closed Specialty Diagnoses / Procedures Referred By Contact Refer red To Contact Radiology Diagnoses Hydronephrosis Jeanna Aguero M.B., [facility] Procedures IR Nephrostomy Tube Placement Left B.Ch., B.A.O. 200 [place] [address] Referral ID Status Reason Start Date Expiration Date Visits Requ ested Visits Authorized [id number] Closed 02/12/2022 02/12/2023 1 1 Encounter Details Date Type Department Care Team Description 02/12/2022 Clinical Communication Department of Urology Jeanna Aguero, in [place] Batista, Delia, [place] B.A.O. [address] [facility] [address] [place] [address] [phone] Social History Tobacco Use Types Packs/Day Years [...] you attend confucianism or Patient refused 2021 temple services? 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 At this t [facility], we would recommend patient have a nephrostomy [...] appointments to be done locally by his honing job setter this week. They are aware that if [...] if possible. Their best callback number is: [phone] Thank you! documented in this encounter Plan of Treatment Upcoming Encounters Date Type Specialty Care Team Description 08/20/2022 Appointment Radiology Claude Loaiza MPAS, P.A.-CJluis [address] [place] [address] 55 [phone] (Wo rk) 08/20/2022 Appointment Radiology Claude Loaiza MPAS, P.A.-Aram. [address] [place] [address] 55 [phone] (Wo rk) 08/22/2022 Virtual Visit Urology Gibran Ruvalcaba M.D. [address] [place] [address] [phone] (Wo rk) documented as of [...] Urinary documented in this encounter Care Teams Technical Operations Vice President Relationship Specialty Start Date End Date Elsewhere, Pcp PCP - General Internal Medicine 01/14/22 documented as of this encounter
--- OUTSIDE RECORDS SUMMARY | 2022-08-09 13:42 | XMS_ITS | Encounter Summary ---
:1935 Author Organization [facility] Address [address] [place] [address] Care Team Providers Name Role Phone Elsewhere, Pcp Primary Care Provider Unavailable Reason for Referral Outpatient (Routine) - Closed Specialty Diagnoses / Procedures Referred By Contact Refer red To Contact Urology Diagnoses Malignant Neoplasm Of Bladder (HCC) Slava Edwards M.D. [facility] [address] [place] [address] Referral ID Status Reason Start Date Expiration Date Visits Requ ested Visits Authorized [id number] Closed 01/30/2022 01/30/2023 1 1 Encounter Details Date Type Department Care Team Description 01/30/2022 Community [facility] Slava Edwards ignant Neoplasm Of AND MIRTHA Pena M.D. Bladder (HCC) [address] [id number] [facility] (Primary [place]) [place] [address] [place], [place] [phone] Social History Tobacco Use Types Packs/Day Years [...] you attend methodist or Patient refused 2021 church services? Do you belong to any clubs or No 05/17/2022 organizations such as methodist groups, unions, fra[employer]ena Solutions or athletic groups, or school groups? 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 [address] [place] [address] [phone] (Octavio christensen) 08/20/2022 Appointment Radiology Claude Loaiza MPAS, P.A.-C. [address] [place] [address] [phone] (Octavio christensen) 08/22/2022 Virtual Visit Urology Gibran Ruvalcaba M.D. [address] [place] [address] [phone] (Octavio christensen) Scheduled Referrals Name Type Priority Associated Diagnoses Order S chedule Urology Referral Outpatient Referral Routine Malignant Neoplas m Of Expected: Bladder (HCC) 01/30/2022 (Approximate), Expires: 05/01/2023 documented as of this encounter Visit Diagnoses Diagnosis Malignant Neoplasm Of Bladder (HCC) - Pr imary documented in this encounter Care Teams Concentrator Operator Relationship Specialty Start Date End Date Elsewhere, Pcp PCP - General Internal Medicine 01/14/22 documented as of this encounter
--- OUTSIDE RECORDS SUMMARY | 2022-08-09 13:42 | XMS_ITS | Encounter Summary ---
:1935 Author Organization [facility] Address [address] [place] [address] Care Team Providers Name Role Phone Unavailable Primary Care Provider Unavailable Encounter Details Date Type Department Care Team Description 08/02/2019 Clinical Communication Department of Shanta Pena V., Dermatology in [address] [phone] Social History Tobacco Use Types Packs/Day Years [...] you attend scientologist or Patient refused 2021 baptist services? 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 [address] [place] [address] [phone] (Octavio christensen) 08/22/2022 Virtual Visit Urology Gibran Ruvalcaba M.D. [address] [place], [place] [phone] (Octavio christensen) documented as of this encounter Visit Diagnoses Not on filedocumented in this encounter
--- OUTSIDE RECORDS SUMMARY | 2022-08-09 13:42 | XMS_ITS | Encounter Summary ---
:1935 Author Organization [facility] Address [address] [place] [address] Care Team Providers Name Role Phone Elsewhere, Pcp Primary Care Provider Unavailable Encounter Details Date Type Department Care Team Description 01/30/2022 Clinical Communication Department of Urology David Day, in [facility] Juan., B.Ch., [place] B.A.O. [address] [place] [phone] [phone] Social History Tobacco Use Types Packs/Day Years [...] you attend sabianist or Patient refused 2021 yarsanism services? 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 [address] [place] [address] [phone] (Wo rk) 08/20/2022 Appointment Radiology Claude Loaiza MPAS, P.A.-C. [address] [place] [address] 55 [phone] (Wo rk) 08/22/2022 Virtual Visit Urology Gibran Ruvalcaba M.D. [address] [place] [address] [phone] (Wo rk) documented as of [...] Code Phon e Number [facility]- [address] [place], [place] [address] [place] [address] [facility] [address] (ABNORMAL) Basic Metabolic [...] CDT eGFR-Black/Afri 72 >=60 02/07/2022 NPRG can [place] Sudanese mL/min/BSA 11:13 AM CDT Comment: ----ADDITIONAL INFORMATION---- [...] Code Phon e Number [facility]- [address] [place], [place] [address] [place] [address] [place] [address] Albumin (02/07/2022 9:26 AM CDT) P [...] Code Phon e Number [facility]- [address] [place] [address] [place] [facility] NPRG [facility] [address] (ABNORMAL) CBC with Differential, Blood (02/07/2022 [...] Code Phon e Number [facility]- [address] [place] [address] [place] [address] System in [place] [address] [facility] documented in this encounter Visit Diagnoses Diagnosis Mass Bladder - Primary documented in this encounter Care Teams Efficiency Miner Blasting Relationship Specialty Start Date End Date Elsewhere, Pcp PCP - General Internal Medicine 01/14/22 documented as of this encounter
--- OUTSIDE RECORDS SUMMARY | 2022-08-09 13:43 | XMS_ITS | Encounter Summary ---
:1935 Author Organization [facility] Address [address] [place] [address] Care Team Providers Name Role Phone Unavailable Primary Care Provider Unavailable Reason for Visit Reason Comments Skin Check Outpatient (Routine) - Closed Specialty Diagnoses / Procedures Referred By Contact Refer red To Contact Dermatology Aashish Pandey M.D . [facility] [address] [place] [address] Referral ID Status Reason Start Date Expiration Date Visits Requ ested Visits Authorized [id number] Closed 02/16/2019 02/16/2020 1 1 Encounter Details Date Type Department Care Team Description 04/19/2019 Office Visit Department of Aashish Pandey, Tumor Skin Uncertain Behavior (Primary Dx); Dermatology in [place] Chamorro Keratosis [place], [place] [address] [place] [phone] Social History Tobacco Use Types Packs/Day Years [...] you attend caodaism or Patient refused 2021 restorationist services? 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 Hare. 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 The largest of his squamous cell carcinomas involving his left cheek was initially treated with CO2 laser in [place] and then Mohs surgery thereafter. MEDICAL HISTORY 1. 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 Hare??at [facility] on 10/27/17 2. Squamous cell carcinoma [...] a total of 27 lesion(s) with two 88-46-sllxin freeze-thaw cycles of liquid nitrogen cryoth erapy. [...] status post Mohs surgery by Dr. Hare??at [facility] on 10/27/17 ?? No evidence for [...] Radiology Claude Loaiza MPAS P.A.-C. [address] [place], [place] [phone] (Wo rk) 08/20/2022 Appointment Radiology Claude Loaiza MPAS P.A.-C. [address] [place], [place] [phone] (Wo rk) 08/22/2022 Virtual Visit Urology Gibran Ruvalcaba M.D. 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
--- OUTSIDE RECORDS SUMMARY | 2022-08-09 13:43 | XMS_ITS | Encounter Summary ---
:1935 Author Organization [facility] Address [address] [place] [address] Care Team Providers Name Role Phone Unavailable [...] you attend uatsdin or Patient refused 2021 voodoo services? 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 [address] [place] [address] [phone] (Wo rk) 08/20/2022 Appointment Radiology Claude Loaiza MPAS, P.A.-C. [address] [place] [address] [phone] (Wo rk) 08/22/2022 Virtual Visit Urology Gibran Ruvalcaba M.D. [address] [place] [phone] (Wo rk) documented as of [...]
--- OUTSIDE RECORDS SUMMARY | 2022-08-09 13:43 | XMS_ITS | Encounter Summary ---
:1935 Author Organization [facility] Address [address] [place] [address] Care Team Providers Name Role Phone Unavailable Primary Care Provider Unavailable Reason for Visit Appointment Request (Routine) - Closed Specialty Diagnoses / Procedures Referred By Contact Refer red To Contact Procedures Aashish Pandey M.D. [facility] 1-[address] sites [address] [place] [phone] Referral ID Status Reason Start Date Expiration Date Visits Requ ested Visits Authorized [id number] Closed 07/12/2019 07/11/2020 1 Encounter Details Date Type Department Care Team Description 07/27/2019 Procedure visit Department of Khadar Juarez, Keratosi s Actinic (Primary Dx); Dermatology in M.D. Malignant Neoplasm Of Face Squamous Cell [place], [place] [address] [facility] [address] [place] [phone] [phone] Social History Tobacco Use Types Packs/Day Years [...] you attend jewish or Patient refused 2021 restorationist services? 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 Juarez Yarn Tester: Dr. 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 [address] [place] [phone] (Wo rk) 08/20/2022 Appointment Radiology Claude Loaiza MPAS, P.A.-C. [address] [place] [address] [phone] (Wo rk) 08/22/2022 Virtual Visit Urology Gibran Ruvalcaba M.D. [address] [place] [address] [phone] (Wo rk) documented as of this encounter Visit Diagnoses Diagnosis Keratosis Actinic - Primary Malignant Neoplasm Of Face Squamous Cell documented in this encounter Administered Medications Inactive Administered Medications - up to 3 most recent administrations Medication Order MAR Action Action Date Dose Rate Site [id number] Given 07/27/2019 9:35 AM CDT 2 mL [...]
--- OUTSIDE RECORDS SUMMARY | 2022-08-09 13:43 | XMS_ITS | Encounter Summary ---
:1935 Author Organization [facility] Address [address] [place] [address] Care Team Providers Name Role Phone Unavailable [...] you attend baptist or Patient refused 2021 jewish services? 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 [address] [place] [address] [phone] (Wo rk) 08/20/2022 Appointment Radiology Claude Loaiza MPAS, P.A.-C. [address] [place] [address] 55 [phone] (Wo rk) 08/22/2022 Virtual Visit Urology Gibran Ruvalcaba M.D. [address] [place] [address] 55 [phone] (Wo rk) documented as of [...]
--- OUTSIDE RECORDS SUMMARY | 2022-08-09 13:43 | XMS_ITS | Encounter Summary ---
:1935 Author Organization [facility] Address [address] [place] [address] Care Team Providers Name Role Phone Unavailable Primary Care Provider Unavailable Encounter Details Date Type Department Care Team Description 02/12/2016 Hospital Encounter HX RST DERM SURG OP [facility] Ra yandel Hare M.D. [address] [place] [address] (Wo rk) Social History Tobacco Use Types [...] you attend cheondoism or Patient refused 2021 orthodox services? 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 CCO documented as of this encounter Last Filed [...] Radiology Claude Loaiza MPAS, P.A.-C. [address] [place] [address] [phone] (Wo rk) 08/20/2022 Appointment Radiology Claude Loaiza MPAS, P.A.-C. [address] [place] [address] 55 [phone] (Wo rk) 08/22/2022 Virtual Visit Urology Gibran Ruvalcaba M.D. [address] [place] [address] 55 [phone] (Wo rk) documented as of this encounter Visit Diagnoses Not on filedocumented in this encounter
--- OUTSIDE RECORDS SUMMARY | 2022-08-09 13:43 | XMS_ITS | Encounter Summary ---
:1935 Author Organization [facility] Address [address] [place] [address] Care Team Providers Name Role Phone Unavailable [...] you attend hinduism or Patient refused 2021 episcopalian services? 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 [address] [place] [address] [phone] (Wo rk) 08/20/2022 Appointment Radiology Claude Loaiza MPAS, P.A.-C. [address] [place] [address] [phone] (Wo rk) 08/22/2022 Virtual Visit Urology Gibran Ruvalcaba M.D. [address] [place], [place] [phone] (Wo rk) documented as [...]
--- OUTSIDE RECORDS SUMMARY | 2022-08-09 13:43 | XMS_ITS | Encounter Summary ---
:1935 Author Organization [facility] Address [address] [place] [address] Care Team Providers Name Role Phone Unavailable [...] you attend mandaen or Patient refused 2021 holiness services? 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 [address] [place] [address] [phone] (Wo rk) 08/20/2022 Appointment Radiology Claude Loaiza MPAS, P.A.-C. [address] [place] [address] [phone] (Wo rk) 08/22/2022 Virtual Visit Urology Gibran Ruvalcaba M.D. [address] [place] [address] [phone] (Wo rk) documented as of [...]
--- OUTSIDE RECORDS SUMMARY | 2022-08-09 13:43 | XMS_ITS | Encounter Summary ---
:1935 Author Organization [facility] Address [address] [place] [address] Care Team Providers Name Role Phone Unavailable Primary Care Provider Unavailable Reason for Visit Reason Comments Skin Check Encounter Details Date Type Department Care Team Description 06/02/2018 Office Visit Department of Aashish Pandey, Keratosis Actinic (Primary Dx); Dermatology in [place] [facility]; [place], [place] [address] [facility] Keratosis Seborrheic; [address] [place] [address] Cancer Skin Squamous Cell [place] [phone] Social History Tobacco Use Types Packs/Day [...] you attend moravian or Patient refused 2021 restoration services? 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 in November 2017 under the care of Dr. Hare. 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 The squamous cell carcinoma involving his left cheek was treated initially with CO2 laser in [place] and then Mohs surgery thereafter. He also has a history of squamous cell carcinomas involving his right infraorbital area, left eyebrow, and right nasal dorsum, all treated with Mohs surgery at [facility] in October 2017. Today he has one [...] dorsum all treated with Mohs surgery at [facility] in October 2017 PHYSICAL EXAM General: Awake, [...] Appointment Radiology Claude Loaiza MPAS, P.A.-C. 200 [place], [place] [phone] (Wo rk) 08/20/2022 Appointment Radiology Claude Loaiza MPAS, P.A.-C. [address] [place], [place] [phone] (Wo rk) 08/22/2022 Virtual Visit Urology Gibran Ruvalcaba M.D. [address] [place], [place] [phone] (Wo rk) documented as of this encounter Visit Diagnoses Diagnosis Keratosis Actinic - Primary Nevi Multiple Keratosis Seborrheic Cancer Skin Squamous Cell Personal Histo ry documented in this encounter
--- OUTSIDE RECORDS SUMMARY | 2022-08-09 13:43 | XMS_ITS | Encounter Summary ---
:1935 Author Organization [facility] Address [address] [place] [address] Care Team Providers Name Role Phone Unavailable Primary Care Provider Unavailable Reason for Referral Outpatient (Routine) - Closed Specialty Diagnoses / Procedures Referred By Contact Refer red To Contact Dermatology Aashish Pandey M.D . [facility] [address] [place] [phone] Referral ID Status Reason Start Date Expiration Date Visits Requ ested Visits Authorized [id number] Closed 02/16/2019 02/16/2020 1 1 Reason for Visit Reason Comments Follow-up AK's on face and arms Outpatient (Routine) - Closed Specialty Diagnoses / Procedures Referred By Contact Refer red To Contact Dermatology Aashish Pandey M.D . [address] [phone] Referral ID Status Reason Start Date Expiration Date Visits Requ ested Visits Authorized [id number] Closed 11/24/2018 11/24/2019 1 1 Encounter Details Date Type Department Care Team Description 02/16/2019 Office Visit Department of Aashish Pandey, Cancer [place] Squamous Cell Personal History (Primary Dx); Dermatology in [place] Keratosis [address] [phone] Social History Tobacco Use Types Packs/Day Years [...] you attend zoroastrianism or Patient refused 2021 sikhism services? Do you belong to any clubs or No 05/17/2022 organizations such as zoroastrianism groups, unions, [email or web address] or athletic groups, or school groups? 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 Hare. 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 The largest of his squamous cell carcinomas involving his left cheek was initially treated with CO2 laser in [place] and then Mohs surgery thereafter. PAST MEDICAL HISTORY 1. 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 Hare at [facility] on 10/27/17 2. Squamous cell carcinoma [...] this could represent an actinic keratosis or agricultural produce sorter's papule. I recommend treatment with liquid nitrogen [...] a total of 23 lesion(s) with two 09-20-ejqico freeze-thaw cycles of liquid nitrogen cryoth erapy. [...] post Mohs surgery by Dr. Hare at [facility] on 10/27/17 No evidence for recurrence [...] Radiology Claude Loaiza, GARCIA, P.A.-C. [address] [place], [place] [phone] (Wo rk) 08/20/2022 Appointment Radiology Claude Loaiza, GARCIA, P.A.-C. [address] [place], [place] 55 [phone] (Wo rk) 08/22/2022 Virtual Visit Urology Gibran Ruvalcaba M.D. [address] [place], [place] 55 [phone] (Wo rk) Scheduled Referrals Name Type Priority Associated Order Schedule Diagnoses Dermatology office Outpatient Referral Routine Ex pected: visit (clinic) 02/16/2019 (Approximate), Expires: 02/16/2022 documented as of this encounter Visit Diagnoses Diagnosis Cancer Skin Squamous Cell Personal Histo ry - Primary Keratosis Actinic documented in this encounter
--- OUTSIDE RECORDS SUMMARY | 2022-08-09 13:43 | XMS_ITS | Encounter Summary ---
:1935 Author Organization [facility] Address [address] [place] [address] Care Team Providers Name Role Phone Unavailable Primary Care Provider Unavailable Reason for Referral Outpatient (Routine) - Closed Specialty Diagnoses / Procedures Referred By Contact Refer red To Contact Dermatology Aashish Pandey M.D . [address] [phone] Referral ID Status Reason Start Date Expiration Date Visits Requ ested Visits Authorized [id number] Closed 11/24/2018 11/24/2019 1 1 Scheduling Instructions Recheck a Ks and squamous cell carcinoma FridayFebruary 16 8-830 a.m. RVISOR SALVAGE Reason for Visit Reason Comments Skin Check face and arms Outpatient (Routine) - Closed Specialty Diagnoses / Procedures Referred By Contact Refer red To Contact Dermatology Aashish Pandey M.D . [facility] [address] [place] [phone] Referral ID Status Reason Start Date Expiration Date Visits Requ ested Visits Authorized [id number] Closed 09/14/2018 09/14/2019 1 1 Encounter Details Date Type Department Care Team Description 11/24/2018 Office Visit Department of Aashish Pandey, Keratosis Actinic (Primary Dx); Dermatology in [place] Keratosis Seborrheic; [place], [place] [address] [place] [address] Cancer Skin Squ[place] [address] [phone] Social History Tobacco Use Types Packs/Day [...] you attend mormon or Patient refused 2021 quaker services? 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 The largest of his squamous cell carcinomas involving his left cheek was initially treated with CO2 laser in [place] and then Mohs surgery thereafter. ?? Allergies Allergen Reactions ??? Penicillins Anaphylaxis PAST MEDICAL HISTORY 1. 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 Hare at [facility] on 10/27/17 2. Squamous cell carcinoma [...] a total of 33 lesion(s) with two 85-79-awkhvb freeze-thaw cycles of liquid nitrogen cryoth erapy, [...] post Mohs surgery by Dr. Hare at [facility] on 10/27/17 No evidence for [...] Aashish Pandey M.D. . 11/24/2018. 8:32 AM. RVISOR SALVAGE documented in this encounter Plan of Treatment Upcoming Encounters Date Type Specialty Care Team Description 08/20/2022 Appointment Radiology Claude Loaiza, GARCIA, P.A.-C. [address] [place] [address] [phone] (Wo rk) 08/20/2022 Appointment Radiology Claude Loaiza MPAS, P.A.-C. [address] [place] [address] [phone] (Wo rk) 08/22/2022 Virtual Visit Urology Gibran Ruvalcaba M.D. [address] [place] [address] [phone] (Wo rk) Scheduled Referrals Name Type Priority Associated Order Schedule Diagnoses Dermatology office Outpatient Referral Routine Ex pected: visit (clinic) 02/16/2019 (Approximate), Expires: 11/24/2021 documented as of this encounter Visit Diagnoses Diagnosis Keratosis Actinic - Primary Keratosis Seborrheic Cancer Skin Squamous Cell Personal Histo ry documented in this encounter
--- OUTSIDE RECORDS SUMMARY | 2022-08-09 13:43 | XMS_ITS | Encounter Summary ---
:1935 Author Organization [facility] Address [address] [place] [address] Care Team Providers Name Role Phone Unavailable Primary Care Provider Unavailable Encounter Details Date Type Department Care Team Description 04/13/2019 Clinical Communication Department of Shanta Pena V., Dermatology in [address] [phone] Social History Tobacco Use Types Packs/Day Years [...] you attend scientology or Patient refused 2021 buddhist services? 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 [address] [place] [address] [phone] (Octavio christensen) 08/20/2022 Appointment Radiology Claude Loaiza MPAS, P.A.-C. [address] [place] [address] [phone] (Octavio christensen) 08/22/2022 Virtual Visit Urology Gibran Ruvalcaba M.D. [address] [place] [address] [phone] (Octavio christensen) documented as of this encounter Visit Diagnoses Not on filedocumented in this encounter
--- OUTSIDE RECORDS SUMMARY | 2022-08-09 13:43 | XMS_ITS | Encounter Summary ---
:1935 Author Organization [facility] Address [address] [place] [address] Care Team Providers Name Role Phone Unavailable [...] you attend catholic or Patient refused 2021 jainism services? 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 [address] [place], [place] 55 [phone] (Wo rk) 08/20/2022 Appointment Radiology Claude Loaiza MPAS, P.A.-C. [address] [place], [place] 55 [phone] (Wo rk) 08/22/2022 Virtual Visit Urology Gibran Ruvalcaba M.D. [address] [place], [place] [phone] (Wo rk) documented as of this encounter Procedures Procedure Name Priority Date/Time Associated Comments Diagnosis DERMATOLOGY IMAGE Routine 10/27/2017 12:00 Result s for this EXAM PM TOWER ERECTOR procedure are i n the results section. documented in this encounter Results DERMATOLOGY IMAGE EXAM (10/27/2017 12:00 PM TOWER ERECTOR) Specimen (Source) Anatomical Location Collection Method / Collectio n Time Received Time / Laterality Volume Narrative IIMS - 10/27/2017 4:43 PM TOWER ERECTOR This order has been created and auto-finalized [...]
--- OUTSIDE RECORDS SUMMARY | 2022-08-09 13:43 | XMS_ITS | Encounter Summary ---
:1935 Author Organization [facility] Address [address] [place] [address] Care Team Providers Name Role Phone Unavailable Primary Care Provider Unavailable Reason for Referral Appointment Request (Routine) - Closed Specialty Diagnoses / Procedures Referred By Contact Refer red To Contact Procedures Aashish Pandey M.D. [facility] 1-4 sites [address] [place] [phone] Referral ID Status Reason Start Date Expiration Date Visits Requ ested Visits Authorized [id number] Closed 07/12/2019 07/11/2020 1 Encounter Details Date Type Department Care Team Description 07/12/2019 Orders Only Department of Aashish Pandey, Malignant Neoplasm Of Dermatology in [place] Face Squamous Cell [address] (Primary Dx) [address] [place] [phone] Social History Tobacco Use Types Packs/Day Years [...] you attend latter-day or Patient refused 2021 bahai services? Do you belong to any clubs or No 05/17/2022 organizations such as latter-day groups, unions, [employer] or athletic groups, or school groups? 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 [address] [place] [address] [phone] (Octavio christensen) 08/20/2022 Appointment Radiology Claude Loaiza MPAS, P.A.-C. [address] [place] [address] [phone] (Octavio christensen) 08/22/2022 Virtual Visit Urology Gibran Ruvalcaba M.D. [address] [place] [address] [phone] (Octavio christensen) Scheduled Orders Name Type Priority Associated Diagnoses Order S jermain [facility] 1-4 sites Dermatology Routine Malignant Neoplasm Of Expected: 07/12/2019 Face Squamous Cell (Approxim ate), Expires: 2021 documented as of this encounter Visit Diagnoses Diagnosis Malignant Neoplasm Of Face Squamous Cell - Primary documented in this encounter
--- OUTSIDE RECORDS SUMMARY | 2022-08-09 13:43 | XMS_ITS | Encounter Summary ---
:1935 Author Organization [facility] Address [address] [place] [address] Care Team Providers Name Role Phone Unavailable Primary Care Provider Unavailable Encounter Details Date Type Department Care Team Description 12/10/2017 Hospital Encounter HX RST DERM SURG OP [facility] Ra yandel Hare M.D. [address] [place] [phone] (Wo rk) Social History Tobacco Use Types [...] attend jehovah's witness or Patient refused 2021 lutheran services? 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 Pulse 66 12/10/2017 1:15 PM MERCHANDISE COLLECTOR Vital sign result from Clinical Notes. Temperature [...] Appointment Radiology Claude Loaiza MPAS, P.A.-C. [address] [place] [address] [phone] (Octavio christensen) 08/20/2022 Appointment Radiology Claude Loaiza MPAS, P.A.-C. [address] [place] [address] [phone] (Octavio christensen) 08/22/2022 Virtual Visit Urology Gibran Ruvalcaba M.D. [address] [place] [address] [phone] (Octavio christensen) documented as of this encounter Visit Diagnoses Not on filedocumented in this encounter
--- OUTSIDE RECORDS SUMMARY | 2022-08-09 13:43 | XMS_ITS | Encounter Summary ---
:1935 Author Organization [facility] Address [address] [place] [address] Care Team Providers Name Role Phone Unavailable [...] you attend adventist or Patient refused 2021 protestant services? 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 [address] [place] [address] [phone] (Wo rk) 08/20/2022 Appointment Radiology Claude Loaiza MPAS, P.A.-C. [address] [place] [address] [phone] (Wo rk) 08/22/2022 Virtual Visit Urology Gibran Ruvalcaba M.D. [address] [place], [place] [phone] (Wo rk) documented as [...]
--- OUTSIDE RECORDS SUMMARY | 2022-08-09 13:43 | XMS_ITS | Encounter Summary ---
:1935 Author Organization [facility] Address [address] [place] [address] Care Team Providers Name Role Phone Unavailable Primary Care Provider Unavailable Encounter Details Date Type Department Care Team Description 06/07/2019 Orders Only Department of Aashish Pandey, [place] (Primary Dermatology in [place] ) [address] [phone] [phone] Social History Tobacco Use Types Packs/Day Years [...] you attend mosque or Patient refused 2021 church services? 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 [address] [place] [address] [phone] (Wo rk) 08/20/2022 Appointment Radiology Claude Loaiza MPAS, P.A.-C. [address] [place] [address] [phone] (Wo rk) 08/22/2022 Virtual Visit Urology Gibran Ruvalcaba M.D. [address] [place] [address] [phone] (Wo rk) Scheduled Orders Name Type Priority Associated Diagnoses Order S chedule Dermatology misc minor Dermatology Routine Lesion Skin Expec kathleen: 06/29/2019 procedure (Approximate), Expires: 2021 documented as of this encounter Visit Diagnoses Diagnosis Lesion Skin - Primary documented in this encounter
--- OUTSIDE RECORDS SUMMARY | 2022-08-09 13:43 | XMS_ITS | Encounter Summary ---
:1935 Author Organization [facility] Address [address] [place] [address] Care Team Providers Name Role Phone Unavailable Primary Care Provider Unavailable Encounter Details Date Type Department Care Team Description 10/27/2017 Hospital Encounter HX RST DERM SURG OP [facility] Ra yandel Hare M.D. [address] [place] [phone] (Wo rk) Social History Tobacco Use Types [...] you attend judaism or Patient refused 2021 baptist services? 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 Pulse 71 10/27/2017 8:00 AM HEAD OF LOSS PREVENTION Vital sign result from Clinical Notes. Temperature [...] Radiology Claude Loaiza MPAS, P.A.-C. [address] [place] [address] [phone] (Octavio christensen) 08/20/2022 Appointment Radiology Claude Loaiza MPAS, P.A.-C. [address] [place] [address] [phone] (Octavio christensen) 08/22/2022 Virtual Visit Urology Gibran Ruvalcaba M.D. [address] [place] [address] [phone] (Octavio christensen) documented as of this encounter Visit Diagnoses Not on filedocumented in this encounter
--- OUTSIDE RECORDS SUMMARY | 2022-08-09 13:43 | XMS_ITS | Encounter Summary ---
:1935 Author Organization [facility] Address [address] [place] [address] Care Team Providers Name Role Phone Unavailable Primary Care Provider Unavailable Reason for Visit Reason Comments Biopsy Encounter Details Date Type Department Care Team Description 05/25/2019 Procedure visit Department of Aashish Pandey Tumor Skin Uncertain Behavior (Primary Dx); Dermatology in [place] New[place] M.D. Keratosis Actinic; [place], [place] [address] [facility] Keratosis Seborrheic Inflamed [address] [place] [phone] Social History Tobacco Use Types Packs/Day Years [...] you attend temple or Patient refused 2021 gnosticism services? 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 [...] Mohs surgery by Dr. Hare??at [facility] on 10/27/17 2. Squamous cell carcinoma [...] infraorbital x2, left ear helix x1, left christian x1, left upper cheek x2, right nasal [...] the patient by letter. Patient given pamphlet [id number]. Discussed the risks, benefits, alternatives, and the necessity of other members of the healthcare team participating in the procedure. All questions answered and consent given. #2 Left preauricular: Rule out basal cell carcinoma versus molded goods spot picker's papule We recommend a shave biopsy [...] the patient by letter. Patient given pamphlet [id number]. Discussed the risks, benefits, alternatives, and the [...] a total of 14 lesion(s) with two 60-68-qbbnbm freeze-thaw cycles of liquid nitrogen cryoth erapy. [...] a total of 1 lesion(s) with two 43-17-zpvpat freeze-thaw cycles of liquid nitrogen cryotherapy. The [...] transected. I have recommended Mohs surgery at [facility]. Patient is very adamant about not going down to [facility] and would like me to treat these lesions. I discussed with him that the optimal treatment is the Mohs surgery and he understands but does not want to go havethis done. Subsequently, he will return to [place] where we will do further shave biopsies [...] surgery at this time. An appointment for [facility] was placed today. documented in this encounter Plan of Treatment Upcoming Encounters Date Type Specialty Care Team Description 08/20/2022 Appointment Radiology Claude Loaiza MPAS, P.A.-C. [address] [place] [address] [phone] (Wo rk) 08/20/2022 Appointment Radiology Claude Loaiza MPAS, P.A.-C. [address] [place] [address] [phone] (Wo rk) 08/22/2022 Virtual Visit Urology Gibran Ruvalcaba M.D. [address] [place] [address] [phone] (Wo rk) documented as of [...] is a 0.5 x 0.4 cm pale zit-[id number]-vhzxd, slightly raised, firm lesion with irregular borders [...] City/State/ZIP Code Phon e Number [facility] - [address] documented in this encounter Visit Diagnoses [...]
--- OUTSIDE RECORDS SUMMARY | 2022-08-09 13:43 | XMS_ITS | Encounter Summary ---
:1935 Author Organization [facility] Address [address] [place] [address] Care Team Providers Name Role Phone Unavailable Primary Care Provider Unavailable Reason for Visit Reason Onset Date Comments biopsy results 06/07/2019 Encounter Details Date Type Department Care Team Description 06/07/2019 Clinical Communication Department of Becky Trinidad biopsy results Medicine, Franck Newby M.D. [facility], in [address] [place] [phone] [place] [address] [place], [place] (Work) [phone] Social History Tobacco Use [...] you attend scientologist or Patient refused 2021 muslim services? 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 Please call her at [phone] documented in this encounter Plan of Treatment Upcoming Encounters Date Type Specialty Care Team Description 08/20/2022 Appointment Radiology Claude Loaiza MPAS, P.A.-C. [address] [place] [address] [phone] (Wo rk) 08/20/2022 Appointment Radiology Claude Loaiza MPAS, P.A.-C. [address] [place] [address] [phone] (Wo rk) 08/22/2022 Virtual Visit Urology Gibran Ruvalcaba M.D. [address] [place] [address] [phone] (Wo rk) documented as of this encounter Visit Diagnoses Not on filedocumented in this encounter
--- OUTSIDE RECORDS SUMMARY | 2022-08-09 13:43 | XMS_ITS | Encounter Summary ---
:1935 Author Organization [facility] Address 200 [place] [address] Care Team Providers Name Role Phone Unavailable Primary Care Provider Unavailable Reason for Referral Outpatient (Routine) - Closed Specialty Diagnoses / Procedures Referred By Contact Refer red To Contact Dermatology Aashish Pandey M.D . 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 Do you belong to any clubs or No 05/17/2022 organizations such as sabianism groups, unions, fraEthonova or athletic groups, or school groups? 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 Hare. 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 The patient does not use sunscreen. 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 He has also had squamous cell carcinomas as noted above involving his face and more specifically the right infraorbital area, left eyebrow, and right nasal dorsum all treated with Mohs surgery [place] in October 2017. PAST MEDICAL HISTORY 1. 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 Squamous cell carcinoma [...] Aashish Pandey M.D. . 09/14/2018. 8:26 AM. SCAPE ARCHITECT AND PLANNER documented in this encounter Plan of Treatment Upcoming Encounters Date Type Specialty Care Team Description 08/20/2022 Appointment Radiology Claude Loaiza MPAS, P.A.-C. [address] [place] [address] [phone] (Wo rk) 08/20/2022 Appointment Radiology Claude Loaiza MPAS, P.A.-C. [address] [place] [address] [phone] (Wo rk) 08/22/2022 Virtual Visit Urology Gibran Ruvalcaba M.D. [address] [place], [place] 55 [phone] (Wo rk) Scheduled Referrals Name Type Priority Associated Order Schedule Diagnoses Dermatology office Outpatient Referral Routine Ex pected: visit (clinic) 12/15/2018 (Approximate), Expires: 09/14/2021 documented as of this encounter Visit Diagnoses Diagnosis Keratosis Actinic - Primary Keratosis Seborrheic Cancer Skin Squamous Cell Personal Histo ry documented in this encounter
--- OUTSIDE RECORDS SUMMARY | 2022-08-09 13:43 | XMS_ITS | Encounter Summary ---
:1935 Author Organization [facility] Address [address] [place] [address] Care Team Providers Name Role Phone Unavailable [...] you attend methodist or Patient refused 2021 confucianism services? 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 [address] [place], [place] 55 [phone] (Wo rk) 08/20/2022 Appointment Radiology Claude Loaiza MPAS, P.A.-C. [address] [place], [place] 55 [phone] (Wo rk) 08/22/2022 Virtual Visit Urology Gibran Ruvalcaba M.D. [address] [place], [place] 55 [phone] (Wo rk) documented as of this encounter Procedures Procedure Name Priority Date/Time Associated Comments Diagnosis DERMATOLOGY IMAGE Routine 10/27/2017 12:20 Result s for this EXAM PM LEAD PERSON procedure are i n the results section. documented in this encounter Results DERMATOLOGY IMAGE EXAM (10/27/2017 12:20 PM LEAD PERSON) Specimen (Source) Anatomical Location Collection Method / Collectio n Time Received Time / Laterality Volume Narrative IIMS - 10/27/2017 4:43 PM LEAD PERSON This order has been created and auto-finalized [...]
--- OUTSIDE RECORDS SUMMARY | 2022-08-09 13:43 | XMS_ITS | Encounter Summary ---
:1935 Author Organization [facility] Address [address] [place] [address] Care Team Providers Name Role Phone Unavailable Primary Care Provider Unavailable Encounter Details Date Type Department Care Team Description 05/24/2015 Hospital Encounter HX [facility] Ra yandel Hare M.D. [address] [place] [phone] (Wo rk) Social History Tobacco Use Types [...] you attend zoroastrian or Patient refused 2021 tenriism services? 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 [address] [place] [address] [phone] (Wo rk) 08/20/2022 Appointment Radiology Claude Loaiza MPAS, P.A.-C. [address] [place] [address] [phone] (Wo rk) 08/22/2022 Virtual Visit Urology Gibran Ruvalcaba M.D. [address] [place] [address] [phone] (Wo rk) documented as of this encounter Visit Diagnoses Not on filedocumented in this encounter
--- OUTSIDE RECORDS SUMMARY | 2022-08-09 13:43 | XMS_ITS | Encounter Summary ---
:1935 Author Organization [facility] Address [address] [place] [address] Care Team Providers Name Role Phone Unavailable [...] you attend holiness or Patient refused 2021 druze services? 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 [address] [place], [place] 55 [phone] (Wo rk) 08/20/2022 Appointment Radiology Claude Loaiza MPAS, P.A.-C. [address] [place], [place] 55 [phone] (Wo rk) 08/22/2022 Virtual Visit Urology Gibran Ruvalcaba M.D. [address] [place], [place] 55 [phone] (Wo rk) documented as of this encounter Procedures Procedure Name Priority Date/Time Associated Comments Diagnosis DERMATOLOGY IMAGE Routine 10/27/2017 12:05 Result s for this EXAM PM SOLAR SALES SPECIALIST procedure are i n the results section. documented in this encounter Results DERMATOLOGY IMAGE EXAM (10/27/2017 12:05 PM SOLAR SALES SPECIALIST) Specimen (Source) Anatomical Location Collection Method / Collectio n Time Received Time / Laterality Volume Narrative IIMS - 10/27/2017 4:43 PM SOLAR SALES SPECIALIST This order has been created and auto-finalized [...]
--- OUTSIDE RECORDS SUMMARY | 2022-08-09 13:43 | XMS_ITS | Encounter Summary ---
:1935 Author Organization [facility] Address [address] [place] [address] Care Team Providers Name Role Phone Unavailable [...] you attend congregational or Patient refused 2021 confucianism services? 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 [address] [place], [place] 55 [phone] (Wo rk) 08/20/2022 Appointment Radiology Claude Loaiza MPAS, P.A.-C. [address] [place], [place] 55 [phone] (Wo rk) 08/22/2022 Virtual Visit Urology Gibran Ruvalcaba M.D. [address] [place], [place] 55 [phone] (Wo rk) documented as of this encounter Procedures Procedure Name Priority Date/Time Associated Comments Diagnosis DERMATOLOGY IMAGE Routine 10/27/2017 12:10 Result s for this EXAM PM SCIENTIFIC GLASS BLOWER procedure are i n the results section. documented in this encounter Results DERMATOLOGY IMAGE EXAM (10/27/2017 12:10 PM SCIENTIFIC GLASS BLOWER) Specimen (Source) Anatomical Location Collection Method / Collectio n Time Received Time / Laterality Volume Narrative IIMS - 10/27/2017 4:43 PM SCIENTIFIC GLASS BLOWER This order has been created and auto-finalized [...]
--- OUTSIDE RECORDS SUMMARY | 2022-08-09 13:43 | XMS_ITS | Encounter Summary ---
:1935 Author Organization [facility] Address [address] [place] [address] Care Team Providers Name Role Phone Unavailable Primary Care Provider Unavailable Reason for Visit Reason Comments Biopsy Encounter Details Date Type Department Care Team Description 06/29/2019 Procedure visit Department of Aashish Pandey (Primary Dx); Dermatology in Fran[place] Newby M.D. Keratosis [place], [place] [address] [place] [phone] Social History Tobacco Use Types Packs/Day Years [...] you attend nondenominational or Patient refused 2021 scientologist services? 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 The patient was very adamant about not going down to [facility] and would like me to treat [...] dorsum all treated with Mohs surgery at [facility] on10/27/17. 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 Hare. MEDICAL HISTORY 1. 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 Hare??at [facility] on 10/27/17 2. Squamous cell carcinoma [...] which he refused to go down to [place] to have this done. Subsequently, we recommend [...] he is not willing to travel to [facility] at this time. PROCEDURAL PAUSE: Procedural pause [...] the patient by letter. Patient given pamphlet [id number]. Discussed the risks, benefits, alternatives, and the necessity of other members of the healthcare team participating in the procedure. All questions answered and consent given. #2 Left preauricular: Squamous cell carcinoma, superficially transected As noted above, we had recommended Mohs surgery for this squamous cell carcinoma. However, he refused to go to [place] to have the Mohs surgery done. Subsequently, [...] he is not willing to travel to [facility] at this time. PROCEDURAL PAUSE: Procedural pause [...] the patient by letter. Patient given pamphlet [id number]. Discussed the risks, benefits, alternatives, and the [...] require further treatment with Mohs surgery in [place]. He knowswhat to expect with the Mohs surgery and subsequently I have placed an order to have this done. I have asked him to follow up with me in the next few months and he states he already has an appointment.They requested that the [place] appointment office call them with regards to the Mohs surgery date and time and I told him I would put that on the request. I have asked them to call me if they have not heard back from our appointment office in [place] within a week or if the surgery date is more than 4-6 weeks from now. They are appreciative of the phone call. All questions answered. documented in this encounter Plan of Treatment Upcoming Encounters Date Type Specialty Care Team Description 08/20/2022 Appointment Radiology Claude Loaiza MPAS, PJluisA.-C. [address] [place] [address] [phone] (Octavio christensen) 08/20/2022 Appointment Radiology Claude Loaiza MPAS P.A.-C. [address] [place] [address] [phone] (Octavio christensen) 08/22/2022 Virtual Visit Urology Gibran Ruvalcaba M.D. [address] [place] [address] [phone] (Octavio christensen) documented as of [...] City/State/ZIP Code Phon e Number [facility] - [address] [place], [place] [address] [facility] documented in this encounter Visit Diagnoses [...]
--- OUTSIDE RECORDS SUMMARY | 2022-08-09 13:43 | XMS_ITS | Encounter Summary ---
:1935 Author Organization [facility] Address [address] [place] [address] Care Team Providers Name Role Phone Unavailable [...] you attend spiritism or Patient refused 2021 baptism services? 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 [address] [place], [place] 55 [phone] (Wo rk) 08/20/2022 Appointment Radiology Claude Loaiza MPAS, P.A.-C. [address] [place], [place] 55 [phone] (Wo rk) 08/22/2022 Virtual Visit Urology Gibran Ruvalcaba M.D. [address] [place], [place] 55 [phone] (Wo rk) documented as of this encounter Procedures Procedure Name Priority Date/Time Associated Comments Diagnosis DERMATOLOGY IMAGE Routine 10/27/2017 12:25 Result s for this EXAM PM PARACHUTE MANUFACTURING SUPERVISOR procedure are i n the results section. documented in this encounter Results DERMATOLOGY IMAGE EXAM (10/27/2017 12:25 PM PARACHUTE MANUFACTURING SUPERVISOR) Specimen (Source) Anatomical Location Collection Method / Collectio n Time Received Time / Laterality Volume Narrative IIMS - 10/27/2017 4:45 PM PARACHUTE MANUFACTURING SUPERVISOR This order has been created and auto-finalized [...]
--- OUTSIDE RECORDS SUMMARY | 2022-08-09 13:43 | XMS_ITS | Encounter Summary ---
:[address] [facility] Address [address] [place] [address] Care Team Providers Name Role Phone Unavailable [...] attend jehovah's witness or Patient refused 2021 gnosticism services? 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 [address] [place], [place] [phone] (Wo rk) 08/20/2022 Appointment Radiology Claude Loaiza MPAS, P.A.-C. [address] [place], [place] 55 [phone] (Wo rk) 08/22/2022 Virtual Visit Urology Gibran Ruvalcaba M.D. [address] [place], [place] 55 [phone] (Wo rk) documented as of this encounter Procedures Procedure Name Priority Date/Time Associated Comments Diagnosis DERMATOLOGY IMAGE Routine 10/27/2017 12:15 Result s for this EXAM PM SERVICE DESK ASSOCIATE procedure are i n the results section. documented in this encounter Results DERMATOLOGY IMAGE EXAM (10/27/2017 12:15 PM SERVICE DESK ASSOCIATE) Specimen (Source) Anatomical Location Collection Method / Collectio n Time Received Time / Laterality Volume Narrative IIMS - 10/27/2017 4:43 PM SERVICE DESK ASSOCIATE This order has been created and [...]
--- OUTSIDE RECORDS SUMMARY | 2022-08-09 13:43 | XMS_ITS | Encounter Summary ---
:1935 Author Organization [facility] Address [address] [place] [address] Care Team Providers Name Role Phone Unavailable Primary Care Provider Unavailable Reason for Visit Reason Onset Date Comments Derm schedule 09/14/2018 Encounter Details Date Type Department Care Team Description 09/14/2018 Clinical Communication Department of Becky Trinidad [facility] Medicine, [place] Ashtyn [place] [facility], in [address] [address] [place], [place] [phone] (Work) [phone] Social History Tobacco Use Types Packs/Day Years [...] or relatives? How often do you attend anglican or Patient refused 2021 yarsani services? 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 - 09/15/2018 5:48 PM CST Discussed with Dr. Pandey and he would like to open a procedure appointment slot on Friday11/24/18 at 8am to see this patient. Will ask the Appointment Office to reach out to the patient to schedule this appointment. MO CEMENTING FOLDER OPERATOR Telephone Encounter - Brii Heller - 09/14/2018 9:25 AM CST Pt. Was seen by Katherin today 09/14. Says he needs to be seen in 2 to 3 months. But first available isn't until 01/05. Which is about 3 and a half months. Please let me know when to schedule this patient and I will call him to get it scheduled. MO CEMENTING FOLDER OPERATOR documented in this encounter Plan of Treatment Upcoming Encounters Date Type Specialty Care Team Description 08/20/2022 Appointment Radiology Claude Loaiza, MPAS, P.A.-C. [address] [place] [phone] (Wo rk) 08/20/2022 Appointment Radiology Claude Loaiza, GARCIA, PJluisAJluis-Aram. [address] [place], [place] [phone] (Wo rk) 08/22/2022 Virtual Visit Urology Gibran Ruvalcaba M.D. [address] [place], [place] 55 [phone] (Wo rk) documented as of this encounter Visit Diagnoses Not on filedocumented in this encounter
--- OUTSIDE RECORDS SUMMARY | 2022-08-09 13:43 | XMS_ITS | Encounter Summary ---
:1935 Author Organization [facility] Address [address] [place] [address] Care Team Providers Name Role Phone Unavailable [...] attend oriental orthodox or Patient refused 2021 shinto services? 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 [address] [place], [place] [phone] (Wo rk) 08/20/2022 Appointment Radiology Claude Loaiza MPAS, P.A.-C. [address] [place], [place] [phone] (Wo rk) 08/22/2022 Virtual Visit Urology Gibran Ruvalcaba M.D. [address] [place], [place] [phone] (Wo rk) documented as of this encounter Procedures Procedure Name Priority Date/Time Associated Comments Diagnosis DERMATOLOGY IMAGE Routine 12/10/2017 12:00 Result s for this EXAM PM DIAMOND SETTER APPRENTICE procedure are i n the results section. documented in this encounter Results DERMATOLOGY IMAGE EXAM (12/10/2017 12:00 PM DIAMOND SETTER APPRENTICE) Specimen (Source) Anatomical Collection Method Collection Time Re ceived Time Location / / Volume Laterality 12/10/2017 12:00 PM DIAMOND SETTER APPRENTICE Narrative [facility] - 12/10/2017 3:55 PM DIAMOND SETTER APPRENTICE This order has been created and auto-finalized [...]
--- OUTSIDE RECORDS SUMMARY | 2022-08-09 13:44 | XMS_ITS | Encounter Summary ---
:1935 Author Organization [facility] Address [address], [place] [address] Care Team Providers Name Role Phone Yaneth English MD Primary Care Provider Reason for Visit Reason Comments INJURY, HIP Back Pain INJURY, KNEE Encounter Details Date Type Department Care Team Description 10/11/2013 Office Visit [facility] David Francisco, Emeka finn joint disease of knee (Primary Dx); Urgent Care Knee pain [address] [place] [address] Fred, [place] [address] [phone] (Wo rk) Social History Tobacco Use Types Packs/Day Years Used Date Smoking Tobacco: Never Assessed Sex Assigned at Date Recorded Not on file documented as of this encounter Last Filed Vital Signs Vital Sign Reading Time Taken Comments Blood Pressure 120/86 10/11/2013 11:23 AM GANG DRILL PRESS OPERATOR Pulse - - Temperature 37.1 ??C (98.8 ??F) 10/11/2013 11:23 AM GANG DRILL PRESS OPERATOR Respiratory Rate - - Oxygen Saturation - - Inhaled Oxygen Concentration - - Weight 93.9 kg (207 lb) 10/11/2013 11:23 AM GANG DRILL PRESS OPERATOR Height 168.9 cm (5' 6.5) 10/11/2013 11:23 AM GANG DRILL PRESS OPERATOR Body Mass Index 32.91 10/11/2013 11:23 AM GANG DRILL PRESS OPERATOR documented in this encounter Patient Instructions Patient InstructionsLiberty Cedeño - 10/11/2013 1:[address] David Francisco MD Sports & Orthopaedic Medicine Acute [facility] Waiter/Waitress Third Class: Colette Loges Please fax all paperwork correspondence to [phone] Acute [facility] Nurse Line: [phone] Please contact Acute Injury Clinic Nurse line for all requests and questions. Please contact your Pharmacy for all medication refill requests DRILL PRESS OPERATOR documented in this encounter Progress Notes David Francisco MD - 10/11/2013 9:46 PM CST Progress Notes signed by David Francisco MD at 10/14/132013 Author: David Francisco MD Service: (none) Author Type: Physician Filed: 10/14/132013 Note Time: 10/12/13828 Status: Signed Electronic Engineering Technician: David Francisco MD (Physician) NAME: BLAKE SUTTON MR#: [id number] CSN: [id number] AUTHENTICATING CLINICIAN: David Francisco MD CONFIRM #: [...] verbalized understanding. CWM:URIEL C: R:10/11/13 21:57 CONFIRM#:[id number] DRILL PRESS OPERATOR documented in this encounter Plan of Treatment Not on filedocumented as of this encounter Visit Diagnoses Diagnosis Degenerative joint disease of knee - Idalia yaneth Osteoarthrosis, unspecified whether gene ralized or localized, lower leg Knee pain Pain in joint, lower leg documented in this encounter Care Teams Inspector General Relationship Specialty Start Date End Date Yaneth English MD PCP - General 10/11/[address] [place] [address] documented as of this encounter
--- OUTSIDE RECORDS SUMMARY | 2022-08-09 13:44 | XMS_ITS | Encounter Summary ---
:1935 Author Organization [facility] Address [address] [place] [address] Care Team Providers Name Role Phone Yamila English MD Primary Care Provider Reason for Visit Procedure/Equipment (Routine) - Incomplete Specialty Diagnoses / Procedures Referred By Contact Refer red To Contact Diagnoses Pain of right hip joint Right knee pain, unspecified chronicity Bryon Richardson MD Procedures XR Knee Rt 3 Views [address] [place] [address] Referral ID Status Reason Start Date Expiration Date Visits V isits Requested Authorized [id number] Incomplete 05/02/2019 07/31/2020 1 1 Encounter Details Date Type Department Care Team Description 05/02/2019 Ancillary [facility] Bryon Richardson, Pain of right hip joint; Procedure [address] Right knee pain, unspecified chronicity Drive [address] [place] [address] [phone] Social History Tobacco Use Types Packs/Day Years [...] artment degenerative change with joint space narrowing, mlqz-po-ngch articulation and osteophyte formation, similar. Mild joint [...] artment degenerative change with joint space narrowing, lata-vn-empq articulation and osteophyte formation, similar. Mild joint [...] artment degenerative change with joint space narrowing, emqr-hj-fvup articulation and osteophyte formation, similar. Mild joint [...] artment degenerative change with joint space narrowing, uzic-sv-ctsr articulation and osteophyte formation, similar. Mild joint [...] chronicity documented in this encounter Care Teams Fisheries Specialist Relationship Specialty Start Date End Date Yamila English MD PCP - General 10/11/[address] [place] [address] documented as of this encounter
--- OUTSIDE RECORDS SUMMARY | 2022-08-09 13:44 | XMS_ITS | Clinical Summary ---
:1935 Author Organization [facility] Address [address] [place] [address] Care Team Providers Name Role Phone Yamila [...] for each transition of care or referral. [facility] Allergies Active Allergy Reactions Severity Noted Date [...] Address T ype Group Dates MEDICARE MEDICARE [id number] 2012-Prese Med icare nt [employer] [facility] [facility] [id number] 2012-Prese [employer] [place] [address] Care Teams Razor Sharpener Relationship Specialty Start Date End Date Yamila English MD PCP - General 10/11/[address] [place] [address]
--- OUTSIDE RECORDS SUMMARY | 2022-08-09 13:44 | XMS_ITS | Encounter Summary ---
:1935 Author Organization [facility] Address [address] [place] [address] Care Team Providers Name Role Phone Yamila English MD Primary Care Provider Reason for Visit Procedure/Equipment (Routine) - Incomplete Specialty Diagnoses / Procedures Referred By Contact Refer red To Contact Diagnoses Pain of right hip joint Right knee pain, unspecified chronicity Bryon Richardson MD Procedures XR Pelvis W Rt Lateral Hip [address] [address] [place] [address] Referral ID Status Reason Start Date Expiration Date Visits V isits Requested Authorized [id number] Incomplete 05/02/2019 07/31/2020 1 1 Encounter Details Date Type Department Care Team Description 05/02/2019 Ancillary [facility] Bryon Richardson, Pain of right hip joint; Procedure [address] Right knee pain, unspecified chronicity Drive [address] [place] [address] [phone] Social History Tobacco Use Types Packs/Day Years [...] chronicity documented in this encounter Care Teams Mobile Paint Specialist Relationship Specialty Start Date End Date Yamila English MD PCP - General 10/11/[address] [place] [address] documented as of this encounter
--- OUTSIDE RECORDS SUMMARY | 2022-08-09 13:44 | XMS_ITS | Encounter Summary ---
:1935 Author Organization [facility] Address [address], [place] [address] Care Team Providers Name Role Phone Unavailable Primary Care Provider Unavailable Reason for Visit Reason Onset Date Comments Refill 02/13/2011 Encounter Details Date Type Department Care Team Description 02/13/2011 Refill [facility] Bryon Villatoro MD Refill [facility] [address] [place] [address] [place] [address] [phone] Social History Tobacco Use Types Packs/Day Years Used Date Smoking Tobacco: Never Assessed Sex Assigned at Date Recorded Not on file documented as of this encounter Plan of Treatment Not on filedocumented as of this encounter Visit Diagnoses Not on filedocumented in this encounter
--- OUTSIDE RECORDS SUMMARY | 2022-08-09 13:44 | XMS_ITS | Encounter Summary ---
:1935 Author Organization [facility] Address [address] [place] [address] Care Team Providers Name Role Phone Yamila English MD Primary Care Provider Reason for Referral Procedure/Equipment (Routine) - Incomplete Specialty Diagnoses / Procedures Referred By Contact Refer red To Contact Diagnoses Pain of right hip joint Right knee pain, unspecified chronicity Bryon Richardson MD Procedures XR Pelvis W Rt Lateral Hip [address] [facility] [address] [address] [place] [address] Referral ID Status Reason Start Date Expiration Date Visits V isits Requested Authorized [id number] Incomplete 05/02/2019 07/31/2020 1 1 Procedure/Equipment (Routine) - Incomplete Specialty Diagnoses / Procedures Referred By Contact Refer red To Contact Diagnoses Pain of right hip joint Right knee pain, unspecified chronicity Bryon Richardson MD Procedures XR Knee Lt 1-2 Views Comparison [address] [facility] [place] [address] [place] [address] Referral ID Status Reason Start Date Expiration Date Visits V isits Requested Authorized [id number] Incomplete 05/02/2019 07/31/2020 1 1 Procedure/Equipment (Routine) - Incomplete Specialty Diagnoses / Procedures Referred By Contact Refer red To Contact Diagnoses Pain of right hip joint Right knee pain, unspecified chronicity Bryon Richardson MD Procedures XR Knee Rt 3 Views [address] [facility] [place] [address] Referral ID Status Reason Start Date Expiration Date Visits V isits Requested Authorized [id number] Incomplete 05/02/2019 07/31/2020 1 1 Reason for Visit Reason Comments Knee Pain or Injury right Encounter Details Date Type Department Care Team Description 05/02/2019 Office Visit [facility] Bryon Richardson, [place] k pain radiating to right leg (Primary Dx); Urgent Care MD Pain of right hip joint; [address] [facility] Right knee pain, unspecified chronicity; [place] [address] [facility] [place] Posterior right knee pain; [phone] [address] Hip injury, right, initial encounter [phone] (Wo rk) Social History Tobacco Use Types [...] for all medical requests and questions at [phone] MRI Scheduling: To schedule an MRI at [facility] please call [phone] Paperwork Requests: Questions regarding FMLA or disability paperwork please call [phone] Phone lines are answered 8AM to 5PM Friday - Friday Workers??? Compensation: Please contact our department for any Work Comp concerns at Email: [email or web address] Right osteo arthritis knee Make appointment for injection in may Right lumbar radiculopathy Call back for MRI documented in this encounter Progress Notes Bryon Richardson MD - 05/02/2019 12:00 PM CDT NAME: BLAKE SUTTON MR#: [id number] CSN: [id number] AUTHENTICATING CLINICIAN: Bryon Richardson MD CONFIRM #: [...] compartment degenerative changes with joint space narrowing, zqzd-ft-ubfr articulation and osteophyte formation, similar. Mild joint [...] artment degenerative change with joint space narrowing, zvnp-mc-fudu articulation and osteophyte formation, similar. Mild joint [...] artment degenerative change with joint space narrowing, gyhd-qv-tdyz articulation and osteophyte formation, similar. Mild joint [...] artment degenerative change with joint space narrowing, want-sv-jztb articulation and osteophyte formation, similar. Mild joint [...] artment degenerative change with joint space narrowing, tjer-fd-mfcn articulation and osteophyte formation, similar. Mild joint [...] chronicity documented in this encounter Care Teams Mixing Supervisor Relationship Specialty Start Date End Date Yamila English MD PCP - General 10/11/[address] [place] [address] documented as of this encounter
--- OUTSIDE RECORDS SUMMARY | 2022-08-09 13:44 | XMS_ITS | Encounter Summary ---
:1935 Author Organization [employer] Address [address] [place] [address] Care Team Providers Name Role Phone Yamila English MD Primary Care Provider Encounter Details Date Type Department Care Team Description 10/11/2013 Imaging [facility] Knee pain [address] [place], [place] [address] Social History Tobacco Use Types Packs/Day Years Used Date Smoking Tobacco: Never Assessed Sex Assigned at Date Recorded Not on file documented as of this encounter Plan of Treatment Not on filedocumented as of this encounter Procedures Procedure Name Priority Date/Time Associated Comments Diagnosis XR KNEE LT 1-2 VIEWS Routine 10/11/2013 12:05 PM Knee pain Results for this COMPARISON LABORATORY TECHNICAL SPECIALIST procedure are i n the results section. XR KNEE RT 3 VIEWS Routine 10/11/2013 12:05 PM Knee pain Re sults for this LABORATORY TECHNICAL SPECIALIST procedure are i n the results section. documented in this encounter Results XR Knee Lt 1-2 Views Comparison (10/11/2013 12:05 PM LABORATORY TECHNICAL SPECIALIST) Anatomical Region Laterality Modality Lower Extremity, Knee Other Specimen (Source) Anatomical Location Collection Method / Collectio n Time Received Time / Laterality Volume Narrative 10/14/2013 8:05 PM LABORATORY TECHNICAL SPECIALIST Three views of the right knee: INDICATION: [...] Knee Rt 3 Views (10/11/2013 12:05 PM LABORATORY TECHNICAL SPECIALIST) Anatomical Region Laterality Modality Lower Extremity, Knee Other Specimen (Source) Anatomical Location Collection Method / Collectio n Time Received Time / Laterality Volume Narrative 10/14/2013 8:05 PM LABORATORY TECHNICAL SPECIALIST Three views of the right knee: INDICATION: [...] leg documented in this encounter Care Teams Hazard Waste Handler Relationship Specialty Start Date End Date Yamila English MD PCP - General 10/11/[address] [place] [address] documented as of this encounter
--- OUTSIDE RECORDS SUMMARY | 2022-08-09 13:44 | XMS_ITS | Clinical Summary ---
:1935 Author Organization [employer] [facility] [place] [address] Care Team Providers Name Role Phone Slava [...] Group MEDICARE PART B MEDICARE PART B [id number] 2002-Present ATTN: CLAIMS - HB USE ONLY HB ONLY [address] [place] [address] MEDICARE - PB MEDICARE PB [id number] 2002-Present ATT N: CLAIMS USE ONLY ONLY [address] [facility] [place] [address] [employer] [id number] 2015-Presen [address] [place] [address] Advance Directives Documents on File Type Date Recorded Patient Cancer Registry Coordinator Explanati on Healthcare Directive 08/02/2021 08/02/2021 Latest Code Status on File Code Status Date Activated Date Inactivated Comments Full Code 01/08/2022 11:08 AM 01/08/2022 6:14 PM Code Status Discussion: Reviewed Preferences Care Teams History Department Chair Relationship Specialty Start Date End Date Slava Edwards MD PCP - General Family Practice 12/12/21 [address] [place] [address]
[2022-08-09 15:26] LABS: Chloride* 99 mmol/L (96-114)
[2022-08-09 15:27] LABS: Potassium* 4.1 mmol/L (3.6-5.1); Sodium* 136 mmol/L (135-149)
[2022-08-09 15:29] LABS: Creatinine* 1.4 mg/dL (0.5-1.5); Estimated Glomerular Filt Rate 49 ml/min
[2022-08-09 15:30] LABS: Blood Urea Nitrogen* 44 mg/dL (7-30); Calcium* 8.6 mg/dL (8.4-10.6); Carbon Dioxide* 33 mmol/L (20-32); Glucose* 180 mg/dL (60-115)
== END 2022-08-09 13:36 | disposition home or self-care (01) ==
PROVIDERS: PCP Family Medicine; Visit Provider Family Medicine
DX: I50.9 Heart failure, unspecified (principal)
CPT/HCPCS: 80048

== ENCOUNTER 2022-08-19 14:33 | Outpatient (CLI) | payer MEDICARE, OTHER, SELFPAY ==
--- OUTSIDE RECORDS SUMMARY | 2022-08-19 08:58 | XMS_ITS | Encounter Summary ---
:1935 Author Organization [facility] Address [address] [place] [address] Care Team Providers Name Role Phone Unavailable Primary Care Provider Unavailable Encounter Details Date Type Department Care Team Description 02/12/2016 Hospital Encounter HX RST DERM SURG OP [facility] Ra ayndel Hare M.D. [address] [place] [address] (Wo rk) Social History Tobacco Use Types [...] you attend moravian or Patient refused 2021 nondenominational services? 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 [address] [place] [phone] (Wo rk) 08/20/2022 Appointment Radiology Claude Loaiza MPAS, P.A.-C. [address] [place] [phone] (Wo rk) 08/22/2022 Virtual Visit Urology Gibran Ruvalcaba M.D. [address] [place] [phone] (Wo rk) documented as of this encounter Visit Diagnoses Not on filedocumented in this encounter
[2022-08-19 14:18] LABS: Chloride* 100 mmol/L (96-114); Potassium* 4.7 mmol/L (3.6-5.1); Sodium* 139 mmol/L (135-149)
[2022-08-19 14:21] LABS: Blood Urea Nitrogen* 38 mg/dL (7-30); Carbon Dioxide* 32 mmol/L (20-32); Creatinine* 1.4 mg/dL (0.5-1.5); Estimated Glomerular Filt Rate 49 ml/min
[2022-08-19 14:22] LABS: Calcium* 8.7 mg/dL (8.4-10.6); Glucose* 130 mg/dL (60-115)
[2022-08-19 14:30] LABS: NT Pro B Type NatriureticPept* 9580 PG/mL (0-450)
[2022-08-19 16:54] LABS: Free T4 Free Thyroxine* 1.38 ng/dL (0.70-1.85)
== END 2022-08-19 14:34 | disposition home or self-care (01) ==
PROVIDERS: PCP Family Medicine; Visit Provider Family Medicine
DX: I50.40 Unspecified combined systolic (congestive) and diastolic (congestive) heart failure (principal); I50.9 Heart failure, unspecified; E03.9 Hypothyroidism, unspecified; E11.9 Type 2 diabetes mellitus without complications; I10 Essential (primary) hypertension
CPT/HCPCS: 80048; 83880; 84439; 84443

== ENCOUNTER 2022-08-23 10:02 | Outpatient (CLI) | payer MEDICARE, OTHER, SELFPAY ==
[2022-08-23 13:07] LABS: Chloride* 98 mmol/L (96-114); Potassium* 4.2 mmol/L (3.6-5.1); Sodium* 138 mmol/L (135-149)
[2022-08-23 13:10] LABS: Blood Urea Nitrogen* 40 mg/dL (7-30); Calcium* 8.2 mg/dL (8.4-10.6); Carbon Dioxide* 32 mmol/L (20-32); Creatinine* 1.2 mg/dL (0.5-1.5); Estimated Glomerular Filt Rate 59 ml/min; Glucose* 196 mg/dL (60-115)
[2022-08-23 13:17] LABS: NT Pro B Type NatriureticPept* 9590 PG/mL (0-450)
== END 2022-08-23 10:03 | disposition home or self-care (01) ==
LOC: LKVREF 10:02
PROVIDERS: PCP Family Medicine; Visit Provider Family Medicine
DX: D64.9 Anemia, unspecified (principal); I50.40 Unspecified combined systolic (congestive) and diastolic (congestive) heart failure; I50.9 Heart failure, unspecified
CPT/HCPCS: 80048; 83880

== ENCOUNTER 2022-08-29 17:38 | Outpatient (CLI) | payer MEDICARE, OTHER, SELFPAY ==
--- OUTSIDE RECORDS SUMMARY | 2022-08-29 08:55 | XMS_ITS | Clinical Summary ---
:1935 Author Organization [facility] Address [address] [place] [id number] Care Team Providers Name Role Phone Elsewhere, Pcp Primary Care Provider Unavailable Source Comments Patient records contain information from all sites at [facility]. For routine questions regarding patient records, call [phone] during business hours, M-F 8:00 AM - 5:00 PM Central Time. Record requests for emergency care only can be directed to [phone] at any time.[facility] Allergies Active Allergy Reactions Severity Noted Date [...] mg total) 2 23 by mouth daily. sulfamethoxazole-tri Take 1 tablet 0 Active methoprim (BACTRIM by mouth 2 2 DS) 800-160 mg per (two) times a tablet day. ciprofloxacin 0 Active (CIPRO) 500 mg 2 tablet HYDROcodone-acetamin 0 Active ophen (NORCO) 5-325 2 mg per tablet METHOCARBAMOL ORAL 0 A ctive 2 FUROSEMIDE ORAL 20 mg 2 (two) 0 Active times a day. 2 ACETAMINOPHEN ORAL 1,300 mg 2 0 Active (two) times a 2 day. ciprofloxacin TAKE 1 TABLET 1 tablet 0 06/14/20 Ac tive (CIPRO) 500 mg BY MOUTH 2 23 tablet DAILY FOR ONE TIME methocarbamol TAKE 1 TO 2 3 08/01/20 [...] op Taking at times a day. Dischar brionna) Active Problems Problem Noted Date Hypothyroidism 08/02/2022 [...] Encounters Date Type Specialty Care Team Description 08/22/2022 Virtual Visit Urology Gibran Ruvalcaba Malignant Neop robert Gardner M.D. Of Bladder (HC C) (Primary Dx) 08/20/2022 Hospital Encounter Radiology Josse, Malignant Neoplasm Claude C, Of Bladder (HCC ) GARCIA P.A.-Aram. Jamir Hinds M.D. 08/20/2022 Hospital Encounter Radiology Josse, Malignant Neoplasm Claude C, Of Bladder (HCC ) GARCIA P.A.-C. 08/02/2022 Hospital Encounter Cardiovascular Lenser, Disease Marielena Jewell APRN, C.N.P. 08/01/2022 Hospital Encounter Kajal Molina Congestiv e Heart Failure (HCC) (Primary Dx); Jade Chiu M.D., Ph.D. Tachycardia; 08/02/2022 [place] Zapata Si, M.D., M.P.H. Brigido Ramos M.B.B.S. 07/02/2022 Hospital Encounter Radiology Gibran Ruvalcaba Malignant Neoplasm Of Bladder (HCC); Ashtyn Gardner Hydronephrosis Beatriz Leblanc M.D. Bre[place]and, [place], M.D. 07/01/2022 Clinical Urology Gibran Ruvalcaab Communication Ashtyn Gardner 06/19/2022 Clinical Urology Gibran Ruvalcaba M.D. 06/14/2022 Procedure visit Urology Gibran Ruvalcaba Malignant Ne walt Gardner M.D. Of Bladder (HC C) (Primary Dx) 06/14/2022 Procedure visit Urology Gibran Ruvalcaba Malignant Ne walt Gardner M.D. Of Bladder (HC C) 06/14/2022 Comprehensive Visit Urology Gibran Ruvalcaba Malignan t Neoplasm Ashtyn Gardner Of Bladder (HC C) (Primary Dx) 06/14/2022 Orders Only Urology Claude Loaiza, MPAS, P.A.-C. 06/03/2022 Procedure visit Urology Rosmery, Stricture Ur ethral Postoperative Male (Primary Dx); Armida Dubois APRN, Hydronephrosi s; C.N.P., D.N.P. Malignant Neoplasm Of Bladder (HCC) Lo Sewell SEDWARD, C.N.P., D.N.P. from Last 3 Months Immunizations Name Administration [...] you attend scientology or Patient refused 2021 restorationism services? Do you belong to any clubs or No 05/17/2022 organizations such as scientology groups, unions, fraRawbots or athletic groups, or school groups? How [...] or slept in a longterm (including now)? Education Answer Date Recorded What is the highest level of school you have completed or 12 th grade 05/17/2022 the highest degree you have received? 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 [address] [phone] (Wo rk) Health Maintenance Due Date Last [...] thyroid function Fall Risk Screen (Annual) Completed 08/20/2022 Procedures Procedure Name Priority Date/Time Associated Comments Diagnosis IR NEPHROSTOMY TUBE RAD - Routine 08/20/2022 Malignant Results for EXCHANGE LEFT (most inpatients 12:17 PM CDT Neoplasm Of this proce dure and all Bladder (HCC) are in the outpatients) results section. IR NEPHROSTOMY TUBE RAD - Routine 08/20/2022 Malignant Results for CHECK LEFT (most inpatients 12:17 PM CDT Neoplasm Of this proced ure and all Bladder (HCC) are in the outpatients) results section. CT UROGRAM WITHOUT AND RAD - Routine 08/20/2022 Malignant Resu lts for WITH IV CONTRAST (most inpatients 10:19 AM CDT Neoplasm Of this pr ocedure and all Bladder (HCC) are in the outpatients) results section. ECG AMBULATORY REAL Routine 08/15/2022 8:00 Bradycardia Sinus Results for TIME CARDIAC PM CDT this procedure MONITORING - HOSPITAL are in the [facility] results section. GLUCOSE POCT, B Routine 08/02/2022 8:25 Results f or AM CDT this procedure are in the results section. DX CHEST AP OR PA AND RAD - Routine 08/02/2022 7:54 Re sults for LATERAL 2 VIEWS (most inpatients AM CDT this pro cedure and all are in the outpatients) results section. T3 (TRIIODOTHYRONINE), Routine 08/02/2022 6:07 Re sults for FREE, S AM CDT this procedure are in the results section. T4 (THYROXINE), FREE, Routine 08/02/2022 6:07 Res ults for S AM CDT this procedure are in the results section. THYROPEROXIDASE AB, S Timed 08/02/2022 6:07 Res ults for AM CDT this procedure are in [...] are in the results section. BASIC METABOLIC PANEL, Timed 08/01/2022 6:50 Re sults for S/P PM CDT this procedure are in the results section. NT-PRO B-TYPE Timed 08/01/2022 6:50 Results for NATRIURETIC PEPTIDE PM CDT this pro cedure (BNP), S are in the results section. CBC WITH DIFFERENTIAL, Timed 08/01/2022 6:50 Re sults for B PM CDT this procedure are in the results section. ECG Routine 08/01/2022 6:38 Results for PM CDT this procedure are in the results section. ADULT OXYGEN THERAPY Routine 08/01/2022 6:20 PM CDT ADULT OXYGEN THERAPY Routine 08/01/2022 6:20 PM CDT ADULT OXYGEN THERAPY Routine 08/01/2022 6:20 PM CDT OUTSIDE DX CHEST Routine 07/31/2022 Results for 11:55 AM CDT this procedure are in the results section. IR NEPHROSTOMY TUBE RAD - Routine 07/02/2022 8:44 Malignant Resu lts for EXCHANGE LEFT (most inpatients AM CDT Neoplasm Of this proce dure and all Bladder (HCC) are in the outpatients) Hydronephrosis results section. OUTSIDE DX CHEST Routine 06/19/2022 2:30 Results for PM CDT this procedure are in the results section. SD INJ ANTEGRD Routine 06/14/2022 2:29 Malignant Results fo r NFROSGRM&/URTGRM EXIST PM CDT Neoplasm Of this procedure Bladder (HCC) are in the results section. URO CYSTOSCOPY Routine 06/14/2022 2:29 Malignant Results fo r (SPECIFIC PROVIDER) PM CDT Neoplasm Of this pro cedure Bladder (HCC) are in the results section. URO CYSTOSCOPY Routine 06/03/2022 8:51 Hydronephrosis Results for (GENERAL) AM CDT Malignant this procedure Neoplasm Of are in the Bladder (HCC) results section. from Last 3 Months Results IR Nephrostomy Tube Exchange Left (08/20/2022 12:17 PM CDT)Only the most recent of2 resultswithin the time period is included. Anatomical Region Laterality Modality Genito Urinary, Vascular Interventional RST LOS, Left X-Ray Angiography Vascular Interventional ARZ LOS, Vascular Interventional FLA LOS Specimen (Source) Anatomical Collection Method Collection Time Re ceived Time Location / / Volume Laterality 08/20/2022 12:46 PM CDT Impressions 08/20/2022 12:49 PM CDT Successful successful exchange of the left nephrostomy tube. Antegrade nephrostogram demonstrates a UPJ stenosis. NR Narrative 08/20/2022 12:49 PM CDT EXAM: IR NEPHROSTOMY TUBE CHECK LEFT, IR NEPHROSTOMY TUBE EXCHANGE LEFT CLINICAL HISTORY: Patient here for nephr ostomy tube exchange with antegrade nephrostogram. TECHNIQUE: Patient was placed on his abd omen. The left flank was prepped and draped usual sterile fashion. The nephrostomy tube was inject ed. There is a narrowing at the UPJ. The nephrostomy tube was removed and a 6 Burmese [address] aced. A glide head was then placed into the ureter. Unable to advance the glide head to the distal ureter inject contrast into the bladder. Next a new nephrostomy tube was placed on the left. This was sutured to skin with 2-0 Prolene. PREPROCEDURE: Patient seen, evaluated, h istory reviewed, [...] The total intra-procedural sedation time was : 12 minutes. Estimated blood loss: none.. Procedure Note Jamir Hinds M.D. - 08/20/2022Formatti ng of this note might be different from the original. EXAM: IR NEPHROSTOMY TUBE CHECK LEFT, IR NEPHROSTOMY TUBE EXCHANGE LEFT CLINICAL HISTORY: Patient here for nephr ostomy tube exchange with antegrade nephrostogram. TECHNIQUE: Patient was placed on his abd omen. The left flank was prepped and draped usual sterile fashion. The nephrostomy tube was inject ed. There is a narrowing at the UPJ. The nephrostomy tube was removed and a 6 Burmese [address] aced. A glide head was then placed into the ureter. Unable to advance the glide head to the distal ureter inject contrast into the bladder. Next a new nephrostomy tube was placed on the left. This was sutured to skin with 2-0 Prolene. PREPROCEDURE: Patient seen, evaluated, h istory reviewed, [...] The total intra-procedural sedation time was : 12 minutes. Estimated blood loss: none.. IMPRESSION: Successful successful exchange of the le ft nephrostomy tube. Antegrade nephrostogram demonstrates a UPJ stenosis. NR Nura David IV, M.D. IMG IR PROCEDURES IR Nephrostomy Tube Check Left (08/20/2022 12:17 PM CDT) Anatomical Region Laterality Modality Genito Urinary, Vascular Interventional RST LOS, Left X-Ray Angiography Vascular Interventional ARZ LOS, Vascular Interventional FLA LOS Specimen (Source) Anatomical Collection Method Collection Time Re ceived Time Location / / Volume Laterality 08/20/2022 12:46 PM CDT Impressions 08/20/2022 12:49 PM CDT Successful successful exchange of the left nephrostomy tube. Antegrade nephrostogram demonstrates a UPJ stenosis. NR Narrative 08/20/2022 12:49 PM CDT EXAM: IR NEPHROSTOMY TUBE CHECK LEFT, IR NEPHROSTOMY TUBE EXCHANGE LEFT CLINICAL HISTORY: Patient here for nephr ostomy tube exchange with antegrade nephrostogram. TECHNIQUE: Patient was placed on his abd omen. The left flank was prepped and draped usual sterile fashion. The nephrostomy tube was inject ed. There is a narrowing at the UPJ. The nephrostomy tube was removed and a 6 Burmese sheath was pl aced. A glide head was then placed into the ureter. Unable to advance the glide head to the distal ureter inject contrast into the bladder. Next a new nephrostomy tube was placed on the left. This was sutured to skin with 2-0 Prolene. PREPROCEDURE: Patient seen, evaluated, h istory reviewed, [...] The total intra-procedural sedation time was : 12 minutes. Estimated blood loss: none.. Procedure Note Jamir Hinds M.D. - 08/20/2022Formatti ng of this note might be different from the original. EXAM: IR NEPHROSTOMY TUBE CHECK LEFT, IR NEPHROSTOMY TUBE EXCHANGE LEFT CLINICAL HISTORY: Patient here for nephr ostomy tube exchange with antegrade nephrostogram. TECHNIQUE: Patient was placed on his abd omen. The left flank was prepped and draped usual sterile fashion. The nephrostomy tube was inject ed. There is a narrowing at the UPJ. The nephrostomy tube was removed and a 6 Burmese [address] aced. A glide head was then placed into the ureter. Unable to advance the glide head to the distal ureter inject contrast into the bladder. Next a new nephrostomy tube was placed on the left. This was sutured to skin with 2-0 Prolene. PREPROCEDURE: Patient seen, evaluated, h istory reviewed, [...] The total intra-procedural sedation time was : 12 minutes. Estimated blood loss: none.. IMPRESSION: Successful successful exchange of the le ft nephrostomy tube. Antegrade nephrostogram demonstrates a UPJ stenosis. NR Claude ZELAYA, P.A.-C. IMG IR PROCEDURES CT Urogram without and with IV Contrast (08/20/2022 10:19 AM CDT) Anatomical Region Laterality Modality Abdomen, Pelvis, Abdominal RST LOS, N/A Comp uted Tomography, Computed Abdominal ARZ LOS, Abdominal FLA LOS Solomon ography Specimen (Source) Anatomical Collection Method Collection Time Re ceived Time Location / / Volume Laterality 08/20/2022 9:13 AM CDT Impressions 08/20/2022 12:40 PM CDT 1. Left nephrostomy tube with likely sandhya ctive wall thickening of left renal collecting system, overall stable. Moderate pelviectasis le ft kidney with narrowing at left UPJ suggesting some degree of UPJ obstruction possibly from a cross ing gonadal vessel. The distal left ureter is opacified, minimally dilated without filling defect s or obstruction. 2. Moderately thick-walled and trabecula kathleen bladder likely due to bladder outlet obstruction from marked enlarged prostate gland. No focal abnormal bladder wall enhancement seen. 3. Heterogeneous enhancement of liver wi th surface nodularity likely sequelae of passive hepatic congestion from underlying cardiomyopath y. No focal hepatic lesions seen. Splenomegaly likely secondary to portal hypertension. 4. New perihepatic free fluid and subcut aneous edema likely from fluid overload. Small right pleural effusion. 5. 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 Narrative 08/20/2022 12:40 PM CDT EXAM: ??CT UROGRAM WITHOUT AND WITH IV CONTRAST COMPARISON: ??CT urogram 02/11/2022. FINDINGS: ?? findings: Stable multiple bilateral renal cysts, largest measuring 6.4 cm in the lower pole left kidney. Both kidneys demonstra te bilateral symmetric nephrograms following contrast administration. Delayed excretory urogram seen within th e right kidney with adequate opacification of right ureter. Left nephrostomy tube with likely reacti ve wall thickening of left renal collecting system, overall stable. Moderate pelviectasis left kidne y with narrowing at left UPJ suggesting some degree of UPJ obstruction possibly from a crossing allan smith vessel. The distal left ureter is opacified, minimally dilated without filling defects or obstr uction. The bladder is distended, moderately thi ck-walled and trabeculated likely secondary to obstructive uropathy from moderately enlarged prosta te gland. Other findings: Nodular surface of liver seen with heterogeneous enhancement, likely underlying cirrhotic morphology with passive hepati c congestion from known cardiomyopathy. The portal vein appears patent. The hepatic veins are fa intly opacified, likely patent. Spleen is enlarged without focal lesion. Cholelithiasis. The pancreas is atrophic with several cystic lesions, the largest measuring 2. 7 cm within pancreas tail (series 9, image 41), previously 1.4 cm diameter. Both adrenal glands are minimally thickened and nodular without discrete nodules. The GI tract is within normal limits. No significant adenopathy ascites. Normal caliber abdominal aorta with dens e scattered atherosclerotic calcification and patent branch vessels. IVC portal vein and SMV patent. Moderate subcutaneous edema. Moderate de generative changes thoracolumbar vertebrae without destructive lesions. Mild right pleural effusion with bilateral atelectatic changes. Cardiomegaly. Procedure Note Bulmaro Ni M.B.B.S., MCasey. - 2 EXAM: CT UROGRAM WITHOUT AND WITH IV CON TRAST COMPARISON: CT urogram 02/11/2022. FINDINGS: findings: Stable multiple b ilateral renal cysts, largest measuring 6.4 cm in the lower pole left kidney. Both kidneys demonstra te bilateral symmetric nephrograms following contrast administration. Delayed excretory urogram seen within th e right kidney with adequate opacification of right ureter. Left nephrostomy tube with likely reacti ve wall thickening of left renal collecting system, overall stable. Moderate pelviectasis left kidne y with narrowing at left UPJ suggesting some degree of UPJ obstruction possibly from a crossing allan smith vessel. The distal left ureter is opacified, minimally dilated without filling defects or obstr uction. The bladder is distended, moderately thi ck-walled and trabeculated likely secondary to obstructive uropathy from moderately enlarged prosta te gland. Other findings: Nodular surface of liver seen with heterogeneous enhancement, likely underlying cirrhotic morphology with passive hepati c congestion from known cardiomyopathy. The portal vein appears patent. The hepatic veins are fa intly opacified, likely patent. Spleen is enlarged without focal lesion. Cholelithiasis. The pancreas is atrophic with several cystic lesions, the largest measuring 2. 7 cm within pancreas tail (series 9, image 41), previously 1.4 cm diameter. Both adrenal glands are minimally thickened and nodular without discrete nodules. The GI tract is within normal limits. No significant adenopathy ascites. Normal caliber abdominal aorta with dens e scattered atherosclerotic calcification and patent branch vessels. IVC portal vein and SMV patent. Moderate subcutaneous edema. Moderate de generative changes thoracolumbar vertebrae without destructive lesions. Mild right pleural effusion with bilateral atelectatic changes. Cardiomegaly. IMPRESSION: 1. Left nephrostomy tube with likely sandhya ctive wall thickening of left renal collecting system, overall stable. Moderate pelviectasis le ft kidney with narrowing at left UPJ suggesting some degree of UPJ obstruction possibly from a cross ing gonadal vessel. The distal left ureter is opacified, minimally dilated without filling defect s or obstruction. 2. Moderately thick-walled and trabecula kathleen bladder likely due to bladder outlet obstruction from marked enlarged prostate gland. No focal abnormal bladder wall enhancement seen. 3. Heterogeneous enhancement of liver wi th surface nodularity likely sequelae of passive hepatic congestion from underlying cardiomyopath y. No focal hepatic lesions seen. Splenomegaly likely secondary to portal hypertension. 4. New perihepatic free fluid and subcut aneous edema likely from fluid overload. Small right pleural effusion. 5. 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 Claude ZELAYA, Eliecer. IMG CT PROCEDURES ECG AMBULATORY REAL TIME CARDIAC MONITORING - [facility] (08/15/2022 8:00 PM CDT) P athologist Signature Min Heart Rate 62 bpm [facility] Max Heart Rate 114 bpm [facility] Mean Heart 82 bpm INFOBIONIC Rate MOME VE Total Beats 242,481 count [facility] MOME VE Percent 17.36% percent INFOBIONIC Beats MOME SVE Total 9866 count INFOBIONIC Beats MOME SVE Percent <1% percent INFOBIONIC Beats MOME Holter Pauses 0 count [facility] AF Count 0 count [facility] AF Duration 0 sec duration [facility]OME AF [place] 0% percent INFO[facility] MOME VT Runs 1114 count [facility] MOME SVT Runs 10 count [facility] Symptom Count 0 count INFO[facility] MOME Specimen (Source) Anatomical Collection Method Collection Time Re ceived Time Location / / Volume Laterality 08/02/2022 12:34 PM CDT Narrative [facility] - 08/16/2022 8:47 AM CDT 1. The patient was monitored from 08/02/2022 to 08/15/2022 with a total monitoring time of 11 days 5 hours 55 minutes. The baseline rhythm wa s sinus. The heart rate varied from 62 to 114 BPM. The average heart rate was 82 BPM. 2. There were 242,481 PVCs seen singly, fused, in pairs and in a bigeminal pattern and trigeminal pattern with a PVC burden of 17.36%. There were 1,114 ventricular tachycardia events greater than 3 beats with the longest duration being 6 beats. The maximum VT heart rate is 157 BPM. There were 10 episodes of accelerated idioventricular rhythm with the longest duration being 7 beats. 3. There were 9,866 PACs seen singly and in a trigeminal pattern with a PAC burden of <1%. There were 10 runs of supraventricular tachycardia observed with the longest duration being 11 beats. The maximum SVT heart rate was 154 BPM. 4. The patient reported no symptomatic e vents. Cafe Or Restaurant Manager: VENKATESH Perrin / VENKATESH Devine Procedure Note Emanuel Bush Jr., M.D. - 08/16/2022For matting of this note might be different from the original. 1. The patient was monitored from 2021 to 08/15/2022 with a total monitoring time of 11 days 5 hours 55 minutes. The baseline rhythm was sinus. The heart rate varied from 62 to 114 BPM. The average heart rate was 82 BPM. 2. There were 242,481 PVCs seen singly, fused, in pairs and in a bigeminal pattern and trigeminal pattern with a PVC burden of 17.36%. There were 1,114 ventricular tachycardia events greater than 3 beats with the longest duration being 6 beats. The maximum VT heart rate is 157 BPM. There were 10 episodes of accelerated idioventricular rhythm with the longest duration being 7 beats. 3. There were 9,866 PACs seen singly and in a trigeminal pattern with a PAC burden of <1%. There were 10 runs of supraventricular tachycardia observed with the longest duration being 11 beats. The maximum SVT heart rate was 154 BPM. 4. The patient reported no symptomatic e vents. Cafe Or Restaurant Manager: VENKATESH Perrin / VENKATESH Devine Marielena Alfaro APRN C.N.P. CV CARDIAC SERVICES PROC EDURES Performing Organization Address City/State/ZIP Code Phon e Number [facility] NA Glucose, POCT (08/02/2022 8:25 AM CDT) Analysis [...] Address City/State/ZIP Code Phon e Number POC [facility] [address] [place] [address] PCLX [facility] [address] [place] [facility] [address] DX Chest [...] the spine and shoulders. Marielena Alfaro APRN, C.N.P. IMG DIAGNOSTIC IMAGING P ROCEDURES Thyroperoxidase (TPO) Antibodies, Serum (08/02/2022 6:07 AM CDT) Patholo gist Method Time Signature Thyroperoxidase Ab, <0.3 <9.0 08/02/2022 DTL S IU/mL 9:20 AM CDT Specimen Anatomical Collection Method Collection Time Receive d Time (Source) Location / / Volume Laterality Blood 08/02/2022 6:07 AM 6:45 CDT AM CDT Marielena Alfaro APRN, C.N.P. LAB BLOOD NON ADD-ON Performing Organization Address City/State/ZIP Code Phon e Number [facility] - [address] [place], [place] [address] [place] [address] Laboratories-[address] (ABNORMAL) T4 (Thyroxine), Free, Serum (08/02/2022 6:07 AM CDT) athologist Signature T4 0.7 (L) 0.9 - 1.7 08/02/2022 DTL (Thyroxine), ng/dL 7:37 AM CDT Free, S Specimen Anatomical Collection Method Collection Time Receive d Time (Source) Location / / Volume Laterality Blood 08/02/2022 6:07 AM 6:45 CDT AM CDT Marielena Alfaro APRN, C.N.P. LAB BLOOD ADD-ON Performing Organization Address City/State/ZIP Code Phon e Number [facility] - [address] [place] [address] [place] [id number] [facility]-[address] Lipid Panel (08/02/2022 6:07 AM CDT) [...] CDT DTL Cholesterol, Non-HDL, Calculated 64 mg/dL 022 7:17 AM CDT DTL Comment: ----REFERENCE VALUE---- Desirable: <130 mg/dL Above Desirable: 130-159 mg/dL Borderline High: 160-189 mg/dL High: 190-219 mg/dL Very High: > or =220 mg/dL Fasting (8 HR or more) [id number] 08/02/2022 6:45 A M CDT DTL Specimen Anatomical Collection Method Collection Time Receive d Time (Source) Location / / Volume Laterality Blood (Blood, 08/02/2022 6:07 AM 08/02/20 6:45 Venous) CDT AM CDT Marielena Alfaro APRN, C.N.P. LAB BLOOD ADD-ON Performing Organization Address City/[facility] Phon e Number [facility] - [address] (ABNORMAL) Thyroid Function [place] (08/02/2022 6:07 AM CDT) P athologist Signature TSH, Sensitive 21.0 (H) 0.3 - 4.2 08/02/2022 DTL mIU/L 7:17 AM CDT Specimen Anatomical Collection Method Collection Time Receive d Time (Source) Location / / Volume Laterality Blood (Blood, 08/02/2022 6:07 AM 08/02/20 6:45 Venous) CDT AM CDT Marielena Alfaro APRN, C.N.P. LAB BLOOD ADD-ON Performing Organization Address City/[facility] Phon e Number [facility] - [address] [place], [place] [address] [place] [address] (ABNORMAL) CBC without Differential (08/02/2022 6:07 [...] Organization Address City/State/ZIP Code Phon e Number [facility] - [address] [place], [place] [address] [facility] [place] [address] [facility] 200 [facility] Type and Screen (with reflex Antibody ID) (08/02/2022 6:07 AM CDT) [facility] Method Time Signature ABORh A Pos Not 08/02/2022 STRM applicable 6:44 AM CDT Antibody Negative Negative 08/02/2022 STRM Screen 6:58 AM CDT Type & Screen 08/05/2022 08/02/2022 STRM Expiration 23:59 6:44 AM CDT Testing [place] DEFAULT 08/02/2022 STRM Location 6:22 AM CDT Specimen Anatomical Collection Method Collection Time Receive d Time (Source) Location / / Volume Laterality Blood (Blood, 08/02/2022 6:07 AM 08/02/20 6:22 Venous) CDT AM CDT Marielena Alfaro APRN, C.N.P. LAB BLOOD BANK TEST ORDE MARK Performing Organization Address City/[facility]/ZIP Code Phon e Number [facility] - [address] [place], [place] [address] [facility] [place] [address] [facility] [address] [facility] (ABNORMAL) T3 (Triiodothyronine), Free (08/02/2022 6:07 AM CDT) athologist Signature T3 2.2 (L) 2.8 - 4.4 08/02/2022 [facility] (Triiodothyron pg/mL 12:00 PM CDT ine), Free, S Specimen Anatomical Collection Method Collection Time Receive d Time (Source) Location / / Volume Laterality Blood (Blood, 08/02/2022 6:07 AM 08/02/20 Venous) CDT 11:03 AM CDT Marielena Alfaro APRN, C.N.P. LAB BLOOD ADD-ON Performing Organization Address City/State/ZIP Code Phon e Number [facility] [address] [place], [place] [address] [place] [address] [place] (ABNORMAL) T4 (Thyroxine), Free (08/02/2022 [...] Address City/State/ZIP Code Phon e Number [facility] - [address] [place], [place] [address] [facility] [place] [address] [facility] [address] [facility] (ABNORMAL) Hemoglobin A1c (08/02/2022 6:07 AM CDT) athologist Signature Hemoglobin A1c, 6.3 (H) 4.0 - 5.6 08/02/2022 D[facility] B % 7:07 AM CDT Comment: Hemoglobin A1c values of 5.7-6.4 percent indicate an increased risk for developing diabetes m brianda. In diabetic patients, HbA1c goals should be discussed with healthcare provider. Specimen Anatomical Collection Method Collection Time Receive d Time (Source) Location / / Volume Laterality Blood (Blood, 08/02/2022 6:07 AM 08/02/20 6:31 Venous) CDT AM CDT Marielena Alfaro APRN, C.N.P. LAB BLOOD ADD-ON Performing Organization Address City/State/ZIP Code Phon e Number [facility] - [address] [place], [place] [address] [facility] [place] [address] [facility] [address] (ABNORMAL) Comprehensive Metabolic Panel (08/02/2022 6:07 [...] Organization Address City/State/ZIP Code Phon e Number [facility] - [address] [place], [place] [address] [facility] [place] [address] [facility] 200 [facility] ECG 12 Lead (08/01/2022 7:54 PM CDT)Only the most recent of2 resultswithin the time period is included. P athologist Signature Ventricular Rate 75 BPM MUSE ECG/Min SD Interval 170 ms MUSE QRSD Interval 96 ms MUSE QT Interval 418 ms MUSE QTC Interval 466 ms MUSE P [place] 80 degrees MUSE R [place] -25 degrees MUSE T Wave [place] 100 degrees MUSE Specimen Anatomical Collection Method [...] 08/01/20 22 7:28 Venous) CDT PM CDT Marielena Alfaro APRN, C.N.P. LAB BLOOD ADD-ON Performing Organization Address City/State/ZIP Code Phon e Number [facility] - [address] [place], [place] [address] [facility] [place] [address] [facility] [address] (ABNORMAL) CBC with Differential, Blood (08/01/2022 6:50 PM CDT) Patholo gist Method Time Signature Hemoglobin 8.3 (L) 13.2 [...] PM 08/01/20 7:17 Venous) CDT PM CDT Marielena Alfaro APRN, C.N.P. LAB BLOOD ADD-ON Performing Organization Address City/State/ZIP Code Phon e Number [facility] - [facility] [address] [place], [place] [address] [facility] [place] [address] [facility] [address] [facility] (ABNORMAL) Basic Metabolic Panel (08/01/2022 6:50 PM [...] Organization Address City/State/ZIP Code Phon e Number [facility] - [address] [place], [place] [address] [facility] [place] [address] [facility] [address] XR chest 1V portable-Outside Chest Xray (07/31/2022 [...] defined workflow. ?? Provider Not In System [facility] Organization Address City/State/ZIP Code Phon e Number IIMS IIMS NA Cystoscopy (specific provider) (06/14/2022 2:29 PM CDT) Specimen (Source) Anatomical Location Collection Method / Collectio n Time Received Time / Laterality Volume Narrative Gibran Ruvalcaba M.D. - 06/14/2022 2: 53 PM CDT Gibran Ruvalcaba M.D. ? 06/14/2022 ??2:55 PM Cystoscopy (specific provider) Date/Time: 06/14/2022 2:53 PM Performed by: Gibran Ruvalcaba M.D. Authorized by: Claude Loaiza MPAS, P.A.-C. Claude ZELAYA, P.A.-CJluis UROLOGY ORDERABLES URO Nephrostogram (06/14/2022 2:29 PM CDT) Specimen (Source) Anatomical Location Collection Method / Collectio n Time Received Time / Laterality Volume Narrative Gibran Ruvalcaba M.D. - 06/14/2022 2: 50 PM CDT Gibran Ruvalcaba M.D. ? 06/14/2022 ??2:53 PM URO Nephrostogram Date/Time: 06/14/2022 2:50 PM Performed by: Gibran Ruvalcaba M.D. Authorized by: Claude Loiaza MPAS, P.A.-C. Claude ZELAYA, P.A.-C. UROLOGY ORDERABLES URO Cystoscopy (general) (06/03/2022 8:51 AM CDT) Specimen (Source) Anatomical Location Collection Method / Collectio n Time Received Time / Laterality Volume Narrative Lo Sewell APRN, C.N.P., D.N.P. - 06/03/2022 8:51 AM CDT Lo Sewell APRN C.N.PJluis, Lanny.N.P. ? 06/04/2022 ??9:48 AM URO Cystoscopy (general) Date/Time: 06/03/2022 8:51 AM Performed by: Lo Sewell APRN, C .N.P., D.N.P. Authorized by: Armida Botello, Lanny.N.PJluis , R.N. Care team members present 1. Lo Sewell APRN C.N.P., D.N. P. 2. Aby Jackson L.PJluisN. Additional procedures performed: cystosc opy ?? PROCEDURE DETAILS The patient was brought to the cystoscop y suite and placed in the lithotomy position. The patient was prep ped and draped in the standard fashion. ??A FLEXIBLE CYSTOSCOPE was ins erted through the urethra. 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 Unable to transverse cystosco pe related to notable discomfort. Given patient discomfort the procedure w as evacuated. Cystoscope was removed. ??He is currently performing in termittent catheterization with 14 Burmese catheter. IMPRESSION: #[address] [...] Botello APRN, C.N.P., D.N.P. UROLOGY ORDERABL ES from Last 3 Months Insurance Payer Benefit Plan / Subscriber ID Effective Phone Address T ype Group Dates MEDICARE MEDICARE A AND [id number] 2002-Prese [id number] [place] [address] [employer] [id number] 2002-Prese [phone] [id number] [place] [address] Advance Directives For more information, please contact: [phone] Latest Code Status on File Code Status Date Activated Date Inactivated Comments DNR/DNI 08/01/2022 7:14 PM 08/02/2022 4:03 PM Code Status History Code Status Date Activated Date Inactivated Comments Full Code 08/01/2022 6:20 PM 08/01/2022 7:14 PM Question Answer Comments Full Code: Discussed DNR/DNI 02/20/2022 1:42 PM 02/22/2022 10:39 PM DNR/DNI 02/20/2022 1:42 PM 02/20/2022 1:42 PM Care Teams Wildlife Control Agent Relationship Specialty Start Date End Date Elsewhere, Pcp PCP - General Internal Medicine 01/14/22
--- OUTSIDE RECORDS SUMMARY | 2022-08-29 08:55 | XMS_ITS | Encounter Summary ---
:1935 Author Organization [facility] Address [address] [place] [address] Care Team Providers Name Role Phone Elsewhere, Pcp Primary Care Provider Unavailable Reason for Referral Outpatient (Routine) - Authorized Specialty Diagnoses / Procedures Referred By Contact Refer red To Contact Radiology Diagnoses Malignant Neoplasm Of Bladder (HCC) Bassam Broderick M.D. [facility] Procedures IR Nephrostomy Tube Exchange Left [address] [place] [address] Referral ID Status Reason Start Date Expiration Date Visits V isits Requested Authorized [id number] Authorized 08/22/2022 08/22/2023 1 1 utpatient (Routine) - Authorized Specialty Diagnoses / Procedures Referred By Contact Refer red To Contact Urology Bassam Broderick M.D . [facility] [address] [place] [address] Referral ID Status Reason Start Date Expiration Date Visits V isits Requested Authorized [id number] Authorized 08/22/2022 08/21/2025 1 1 utpatient (Routine) - Authorized Specialty Diagnoses / Referred By Contact Referred To Contact Procedures Cardiovascular Diseases / Diagnoses Malignant Neoplasm Of Bladder (HCC) Bassam Broderick [facility] Cardiovascular Disease M.D. [address] [place] [address] Referral ID Status Reason Start Date Expiration Date Visits V isits Requested Authorized [id number] Authorized 08/22/2022 08/22/2023 1 1 Reason for Visit Outpatient (Routine) - Closed Specialty Diagnoses / Procedures Referred By Contact Refer red To Contact Urology Claude Loaiza M PAS, PJluisAJluis-Aram. [facility] [address] [place] [address] Referral ID Status Reason Start Date Expiration Date Visits Requ ested Visits Authorized [id number] Closed 06/14/2022 06/13/2025 1 1 Encounter Details Date Type Department Care Team Description 08/22/2022 Virtual Visit Department of Urology Gibran Ruvalcaba Ne[place] Bladder (HCC) (Primary [place] [address] [facility] Dx) [address] [place] [id number] Social History Tobacco Use Types Packs/Day Years [...] you attend orthodox or Patient refused 2021 orthodoxy services? 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 - 08/22/2022 1:00 PM CDT SUBJECTIVE CHIEF COMPLAINT/REASON FOR VISIT No chief complaint on file. HISTORY OF PRESENT ILLNESS Consult conducted via real-time audio/video technology by Bassam Broderick MD in [facility] to the patient in patient's home. Mr. Chery is an 87 year old male with high-grade urothelial carcinoma of the bladder who I spoketo on the phone today regarding management of his left UPJ obstruction. Overall the patient is doingvery well. He was recently seen in the ER for cardiac issues for which he is requesting follow-up with Cardiology here at [place]. His nephrostomy tube is extremely bothersome to him and he would like to pursue options to be tube free as possible. He denies fever, chills, weight loss, gross hematuria, flank pain, abdominal pain, shortness of breath, and chest pain. Brief Clinical History: -01/24/22: evaluated for back pain and SOB - found to have L baldder wall mass at L UVJ -not a surgical candidate for TURBT given cardiac comorbidities -02/11/22: CTU - L UVJ mass with hydronephrosis, nodular liver (cirrhosis) -02/18/22L L Nephrostomy tube placement, percutaneous biopsy of bladder mass - HG T1 (mp present and uninvolved) -04/02/22: received XRT treatment of bladder lesion (finished 04/19/22) -05/17/22: Seen by Dr. Galindo - UDS showed contractile bladder (recommended against bladder outlet procedure) -05/23/22: CTU - bladder mass decreased in size -06/14/22: cystoscopy attempted and aborted due to navicular stricture which was dilated; started on self dilation with CIC BID, L ant nephrostogram suggesting UPJO -08/20/22: L antegrade nephrostogram suggesting L UPJO, nephrostomy tube exchanged CTU - no bladder mass, bladd wall thickening, possible crossing vessel at L UPJ PMH: CKD, CHF (EF 20-25%), PV, HTN, MDD, obesity, DMII, gout REVIEW OF SYSTEMS The following systems were negative: Constitutional, Skin, Eyes, ENT, Respiratory, Cardiovascular, Gastrointestinal, Genitourinary, Hematologic, Musculoskeletal, Neurological, Psychiatric OBJECTIVE There were no vitals filed for this visit. 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 I discussed that there is potential for an endoscopic management of this whichcould result in the ability to remove his nephrostomy tube. He is very interested in this as his tube is extremely bothersome. I did stress that given his comorbidities it may be impossible to undergo this type of surgery. Also explained that there is the chance of failure with that type of treatment as well. They are interested in at least exploring this option with 1 of our specialists. I have placed a referral to Dr. Waller for further evaluation. I have also placed orders for nephrostomy tubeexchange in 3 months. Finally I placed a referral to Cardiology per the patient's request to establish care here at [facility] after being seen in the ER for cardiac issues. Regarding the patient's bladder cancer imaging today is promising showing the evidence of the initially identified mass. The patient is voiding much better and continues to intermittently catheterize twice a day. Signed by: Mitchell Broderick M.D. 08/22/2022 5:26 PM CDT documented in this encounter Plan of Treatment Upcoming Encounters Date Type Specialty Care Team Description 09/03/2022 Telemedicine Urology Albert Waller M.D. [address] [place], [place] [phone] (Wo rk) Scheduled Orders Name Type Priority Associated Order Schedule Diagnoses IR Nephrostomy Tube Imaging RAD - Routine (most Malignant Neop lasm Expected: Exchange Left inpatients and all Of Bladder (HCC) 12/2022 outpatients) (Approximate), Expires: 11/22/2023 Scheduled Referrals Name Type Priority Associated Order Schedule Diagnoses Cardiovascular Disease Outpatient Referral Routine Malignant N eoplasm Expected: - Heart failure consult Of Bladder ([facility]) 08/22/2022 (clinic) (Approximate), Expires: 11/22/2023 Urology office visit Outpatient Referral Routine Expected: (clinic) 08/22/2022 (Approximate), Expires: 11/22/2023 documented as of this encounter Visit Diagnoses Diagnosis Malignant Neoplasm Of Bladder (HCC) - Pr imary documented in this encounter Care Teams Head And Neck Surgeon Relationship Specialty Start Date End Date Elsewhere, Pcp PCP - General Internal Medicine 01/14/22 documented as of this encounter
--- OUTSIDE RECORDS SUMMARY | 2022-08-29 08:55 | XMS_ITS ---
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
--- OUTSIDE RECORDS SUMMARY | 2022-08-29 08:56 | XMS_ITS | Encounter Summary ---
:1935 Author Organization [facility] Address [address] [place] [address] Care Team Providers Name Role Phone Elsewhere, Pcp Primary Care Provider Unavailable Reason for Referral MRI/CAT/PET Scan (Routine) - Closed Specialty Diagnoses / Procedures Referred By Contact Refer red To Contact Radiology Diagnoses Malignant Neoplasm Of Bladder (HCC) Claude Loaiza MPAS, [facility] Procedures CT Urogram without and with IV Contrast P.A.-C. [address] [place], [place] [address] Referral ID Status Reason Start Date Expiration Date Visits Requ ested Visits Authorized [id number] Closed 06/14/2022 06/14/2023 1 1 Reason for Visit MRI/CAT/PET Scan (Routine) - Closed Specialty Diagnoses / Procedures Referred By Contact Refer red To Contact Radiology Diagnoses Malignant Neoplasm Of Bladder (HCC) Claude Loaiza MPAS, [facility] Procedures CT Urogram without and with IV Contrast P.A.-C. [address] [place], [place] [address] Referral ID Status Reason Start Date Expiration Date Visits Requ ested Visits Authorized [id number] Closed 06/14/2022 06/14/2023 1 1 Encounter Details Date Type Department Care Team Description 08/20/2022 Hospital Encounter Department of Claude Loaiza Neoplasm Radiology, [facility], [facility], Of Bladder ( HCC) Building, in P.A.-C. [place], [place] [address] [place] [phone] Social History Tobacco Use Types Packs/Day Years [...] you attend judaism or Patient refused 2021 restorationism services? 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 amLODIPine (NORVASC) 2.5 Take 2.5 mg by 0 mg tablet mouth daily. aspirin [address] tablet Take 1 tablet by 0 2015 mouth daily. buPROPion XL (WELLBUTRIN Take 300 mg by 0 XL) 300 mg 24 hr tablet mouth daily. cholecalciferol (VITAMIN Take 50 mcg by 0 D3) 50 mcg (2,000 Unit) mouth daily. tablet ciprofloxacin (CIPRO) 500 0 06/14/2022 mg tablet ciprofloxacin (CIPRO) 500 TAKE 1 TABLET BY 1 tablet 0 05/2106/14/2023 mg tablet MOUTH DAILY FOR ONE TIME finasteride (PROSCAR) 5 mg Take 1 tablet (5 90 tablet 3 tablet mg total) by mouth daily. FUROSEMIDE ORAL 20 mg 2 (two) 0 07/15/2022 times a day. glipiZIDE (GLUCOTROL XL) Take 10 mg by 0 10 mg 24 hr tablet mouth daily with breakfast. HYDROcodone-acetaminophen 0 06/27/2022 (NORCO) 5-325 mg per tablet hydroxyurea (HYDREA) 500 Take 3-4 capsules by mouth daily. 1 500 mg on Fri- 0 10/27/2017 mg capsule 2000 mg on Fri-Fri levothyroxine (SYNTHROID, Take 1 tablet (125 30 tablet 3 08/02/2023 LEVOTHROID) 125 mcg tablet mcg total) by mouth every morning before breakfast. METHOCARBAMOL ORAL 0 06/27/2022 nitroglycerin (NITROSTAT) Place 0.4 mg under 0 0.4 mg SL tablet the tongue every 5 (five) minutes as needed for chest pain. omeprazole (PriLOSEC) 20 Take 1 capsule by 0 01/19 mg capsule mouth daily. sulfamethoxazole-trimethop Take 1 tablet by 0 11/2021 rim (BACTRIM DS) 800-160 mouth 2 (two) mg per tablet times a day. tamsulosin (FLOMAX) 0.4 mg Take 1 capsule [...] (bladder spasms). documented as of this encounter Nursing Notes Kathryn Najera R.N. - 08/20/2022 8:45 AM CDT Outpatient, keeping PIV in for later exam or refused to keep in for later exam requiring PIV: Is PIV being left in? YES Why is PIV being left in? Another procedure/exam scheduled for today which requires a PIV Name and role of person notified in receiving area: [place] [id number] IR (Jaye) Spoke to Jaye from [place] [id number] IR about patient status on continuous oxygen and family members stated hehas been decreasing in his heart and oxygen levels as of recent. documented in this encounter Plan of Treatment Upcoming Encounters Date Type Specialty Care Team Description 09/03/2022 Telemedicine Urology Albert Waller M.D. [address] [place] [phone] (Wo rk) documented as of this encounter Procedures Procedure Name Priority Date/Time Associated Comments Diagnosis CT UROGRAM RAD - Routine 08/20/2022 10:19 Malignant Results fo r this WITHOUT AND WITH (most inpatients AM CDT Neoplasm Of procedu re are in [...] changes. Cardiomegaly. Procedure Note Bulmaro Ni M.B.B.S., M.D. 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 Claude ZELAYA, P.A.-C. IMG CT PROCEDURES documented in this encounter Visit Diagnoses Diagnosis Malignant Neoplasm Of Bladder (HCC) documented in this encounter Administered Medications Inactive Administered Medications - up to 3 most recent administrations Medication Order MAR Action Action Date Dose Rate Site iohexoL 350 mg iodine/mL solution Given 08/20/2022 9:13 AM CDT 1 00 mL 100 mL (OMNIPAQUE) 100 mL, intravenous, Once in imaging, contrast, Starting on Fri08/20/22 at 0913, For 1 dose sodium chloride 0.9 % flush 1-250 mL Given 08/20/2022 9:15 AM CDT 190 mL 1-250 mL, intravenous, Once, On Fri08/20/22 at 0845, For 1 dose, Imaging Protocol Orders documented in this encounter Care Teams Airport Operations Specialist Relationship Specialty Start Date End Date Elsewhere, Pcp PCP - General Internal Medicine 01/14/22 documented as of this encounter
--- OUTSIDE RECORDS SUMMARY | 2022-08-29 08:56 | XMS_ITS | Encounter Summary ---
:1935 Author Organization [facility] Address [address] [place] [address] Care Team Providers Name Role Phone Elsewhere, Pcp Primary Care Provider Unavailable Reason for Referral Outpatient (Routine) - Closed Specialty Diagnoses / Procedures Referred By Contact Refer red To Contact Diagnoses Malignant Neoplasm Of Bladder (HCC) Claude Loaiza MPAS, [facility] Procedures URO Nephrostogram P.A.-C. [address] [place], [place] [phone] Referral ID Status Reason Start Date Expiration Date Visits Requ ested Visits Authorized [id number] Closed 06/14/2022 06/14/2023 1 1 utpatient (Routine) - Closed Specialty Diagnoses / Procedures Referred By Contact Refer red To Contact Diagnoses Malignant Neoplasm Of Bladder (HCC) Claude Loaiza MPAS, [facility] Procedures Cystoscopy (specific provider) P.A.-C. [address] [place], [place] [phone] Referral ID Status Reason Start Date Expiration Date Visits Requ ested Visits Authorized [id number] Closed 06/14/2022 06/14/2023 1 1 Reason for Visit Outpatient (Routine) - Closed Specialty Diagnoses / Procedures Referred By Contact Refer red To Contact Urology Armida Botello, EDWARD, C.N.P., [facility] D.N.P. 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 Chery, his , and his [id number] in clinic today in conjunction with Dr. [...] for the patient today. This includes both [id number] and mdyylto-cq-bpgy time. documented in this encounter Plan of Treatment Upcoming Encounters Date Type Specialty Care Team Description 09/03/2022 Telemedicine Urology Albert Waller M.D. [address] [place] [phone] (Wo rk) documented as of this encounter Results URO Nephrostogram (06/14/2022 2:29 PM CDT) Specimen (Source) Anatomical Location Collection Method / Collectio n Time Received Time / Laterality Volume Narrative Gibran Ruvalcaba M.D. - 06/14/2022 2: 50 PM CDT Gibran Ruvalcaba M.D. ? 06/14/2022 ??2:53 PM URO Nephrostogram Date/Time: 06/14/2022 2:50 PM Performed by: Gibran Ruvalcaba M.D. Authorized by: Claude Loaiza MPAS, P.AMamiCJluis Claude ZELAYA P.A.-C. UROLOGY ORDERABLES Cystoscopy (specific provider) (06/14/2022 [...] imary documented in this encounter Care Teams Food Quality Technician Relationship Specialty Start Date End Date Elsewhere, Pcp PCP - General Internal Medicine 01/14/22 documented as of this encounter
--- OUTSIDE RECORDS SUMMARY | 2022-08-29 08:56 | XMS_ITS | Encounter Summary ---
:1935 Author Organization [facility] Address [address] [place] [phone] Care Team Providers Name Role Phone Elsewhere, Pcp Primary Care Provider Unavailable Reason for Referral Outpatient (Routine) - Authorized Specialty Diagnoses / Procedures Referred By Contact Refer red To Contact Diagnoses Congestive Heart Failure (HCC) Bradycardia Sinus Marielena Alfaro APRN, [facility] [address] [place] [address] [place] [address] [place] [address] Phone: [phone] Fax: Referral ID Status Reason Start Expiration Visits Visits Date Date Requested Authorized [id number] Authorized Continuity of 08/02/2023 1 1 Care 2 Encounter Details Date Type Department Care Team Description 08/01/2022 - Hospital Encounter [facility] Kajal Molina M.D., Ph.D. [address] [place] [phone] Congestive Heart Failure (HCC) (Primary Dx); 08/02/2022 [facility] Phoenix Zapata M.D., M.P.H. [address] [place] [phone] Tachycardia; [facility], [facility], Roel LazaroB.S. [address] [place] [address] [facility], Sixth Floor [address] [place] [phone] Social History Tobacco Use Types Packs/Day Years [...] you attend sikhism or Patient refused 2021 christian services? 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 Urology For appointment details refer to your Patient Appointment Guide. HOSPITAL COURSE Admission Weight: 82.1 kg Dismissal Weight: 82.1 kg BMI: Body mass index is 26.72 kg/m??. Mr. Chery is a 87 y.o. male who presented as a direct admission from [facility] for further evaluation of sinus bradycardia. He [...] several doses of intravenous Lasix yesterday in [facility] that his scrotal edema and lower extremity [...] did have frequent PACs and PVCs. MOME rn cardiac was placed prior to discharge and to [...] updated. He was aggressively diuresed at the [facility] and appears euvolemic. Given right-sided heart failure [...] L fluid restriction PRIMARY PROVIDER: No care meat team lead to display Primary Care Providers: Elsewhere, Pcp [...] paperwork with you to your appointments. * [place], [place] Tuesday August 09, 2022: 12:[address] Edwards, primary care provider, hospital follow up visit, at the clinic. RECOMMENDATIONS: * [facility] [place], [place] You may have outpatient appointments at [facility] that changed during your hospitalization. Refer to your [facility] Patient Visit Guide (PVG) for the most current schedule of appointments and details instructions of tests / procedures. Call [phone] if you did not receive a PVG or need to CANCEL any [facility] appointment(s). AttachmentsThe following attachments cannot be sent through Care Everywhere. Levothyroxine (By mouth) (Iraqi)Torsemide (By mouth) (Iraqi)documented in this encounter Medications at Time of [...] 08/02/2023 tablet mg total) by mouth daily. ACETAMINOPHEN ORAL 1,300 mg 2 (two) 0 05/08/2022 times a day. ciprofloxacin (CIPRO) 500 0 06/14/2022 mg tablet ciprofloxacin (CIPRO) 500 TAKE 1 TABLET BY 1 tablet 0 05/2106/14/2023 mg tablet MOUTH DAILY FOR ONE TIME FUROSEMIDE ORAL 20 mg 2 (two) 0 07/15/2022 times a day. HYDROcodone-acetaminophen 0 06/27/2022 (NORCO) 5-325 mg per tablet METHOCARBAMOL ORAL 0 06/27/2022 nitroglycerin (NITROSTAT) Place 0.4 mg under 0 0.4 mg SL tablet the tongue every 5 (five) minutes as needed for chest pain. sulfamethoxazole-trimethop Take 1 tablet by 0 11/2021 rim (BACTRIM DS) 800-160 mouth 2 (two) mg per tablet times a day. trospium (SANCTURA) 20 mg Take 1 tablet [...] DNR/DNI. Aftab Viera. CT CT Job ID: [id number] Marielena Alfaro APRN, C.N.PJluis - 08/01/2022 7:14 PM CDT CARDIOLOGY INPATIENT ADMISSION NOTE CHIEF COMPLAINT/REASON FOR VISIT Bradycardia Collaborating physician: Dr. Ramos Admitting service: RST CARD 3 HISTORY OF PRESENT ILLNESS Mr. Chery is a 87 y.o. male who presented as a direct admission from [facility] for further evaluation of bradycardia. Per patient's [...] several doses of intravenous Lasix yesterday in [facility] that his scrotal edema and lower extremity [...] had a significant cardiac evaluation at the [place] [facility] in [place]. He has medical comorbidities including, but not [...] History: Diagnosis Date Atherosclerotic Heart Disease Of [place] Coronary Artery Without Angina Pectoris Cardiomyopathy Dilated [...] capsules by mouth daily. 1500 mg on Fri-Thurs 2000 mg on Fri-Fri lisinopriL (PRINIVIL,ZESTRIL) 2.5 [...] Normal lungs. Normal aorta. 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 Patient has noted previous bradycardia secondary to beta blockers. He presented to the [facility] with volume overload and was diuresed with [...] with reassessment on a day-to-day basis. 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 no benefits: No Advance Directives Legal Decision Maker: Self Advance Directives: N/A Advance Directives Status: N/A OBJECTIVE Baseline Functional Status Baseline Activities of Daily Living Mobility: Independent Dressing: Independent Feeding: Independent Bathing: Independent Grooming: Independent Toileting: Independent Behavior: Appropriate, Pleasant, Calm, Cooperative Communication: Talks, Understands speaking, Understands Iraqi Shopping: Independent Transportation: Support from family Medication Management: Independent Housekeeping: Needs assistance Meal Prep: Needs assistance Managing Finances: Independent Assistive Devices: Eyeglasses, Dentures, Oxygen Home Oxygen Company: [employer] Services/Resources: Home health Agency Name: [facility] Provided: alf, PT Baseline Services/Resources Primary care clinic and provider: ELSEWHERE, PCP Services/Resources: Home health Anticipated Needs Functional Status: None Assistive Devices: Walker - front wheeled, Oxygen, Eyeglasses Services/Resources: Home health Agency Name: [facility] Provided: alf, PT Anticipated Modifications to the Patient's Home: None Transportation Needs: Support from family Does the patient need discharge transport arranged?: No Phone Number for Ride/Caregiver: [phone]/Miesha - and grandson Anticipated Discharge Destination: Home or Self Care ASSESSMENT / PLAN Assessment: The supervisor poultry hatchery met with Henok Chery to discuss his current hospitalization and home going needs. The patient was accompanied by , Miesha . The patient was a reliable historian. The role of supervisor poultry hatchery was reviewed. The patient and patient's reviewed his prior level of care and support system. The patient receives support from his . The patient and patient's described his living environment as a single level home with level entry. Housekeeping, grocery shopping, meal prep, and other household responsibilities have previously been completed by patient and patient's . supervisor poultry hatchery discussed the patient's potential needsat dismissal based on their home setting, previous needs and responsibilities, homebound status, andrelevant assessments with the patient and patient's . The patient will be safe and supported to return home with spouse/S.O. when medically ready. Support will be provided by family. The patient and patient's demonstrated understanding when discussing his home going plans and anticipated needs. CLARA CM to room NT 6 Pcu 844 to discuss discharge needs. Patient sitting in chair awaiting discharge papers with at bedside. Due to patient not being able to hear while portable oxygen in place, answered assessment questions. provided name of HH provider of [facility] for Home Oxygen supplies. At this time, the care team anticipates the patient requires the following services to be reconnected: home healthcare and oxygen. The patient's identified the following as their current vendor(s): [facility] and [facility] [employer]. The team also shared the patient will potentiallyrequire the following service(s) to be set up: home healthcare and oxygen. After reviewing the patient's chart and meeting with the patient's , the supervisor poultry hatchery deemed the LACE+/readmission questions were appropriate. The [...] admission could not have been prevented. The supervisor poultry hatchery will share this information with the care team. The patient's reports understanding that he will dismiss from the hospital TODAY this afternoon. Pending hospital course and medical readiness, no barriers to dismissal have been identified at this time. Plan: The patient's agrees with the following plan. Patient's anticipated discharge disposition is: Home with Home Healthcare Reconnected: [facility] for Oxygen Transportation upon dismissal will be provided by family--Grandson . supervisor poultry hatchery recommended nothing at this time. supervisor poultry hatchery provided information regarding the dismissal process. supervisor poultry hatchery placed or requested the following hospital-based consult orders and/or referrals: None. supervisor poultry hatchery will continue to assess for homegoing needs with the interdisciplinary team. supervisor poultry hatchery encouraged the patient to reach out with any questions/concerns. Oxygen Reconnect: Durable Medical Equipment - Admitted Since 08/01/2022 Service Provider Selected Services Address Phone Fax Patient Preferred [facility] Durable Medical Equipment [address], [facility] [address] -- Contact: Staff Respiratory Equipment : Portable concentrator, 02 concepts, [place] adaptor Oxygen provider reports patient???s current orders [...] Selected Services Address Phone Fax Patient Preferred [facility] [address] [place] [address] [phone] -- Contact: Staff NURSING: - Complete documentation in the Discharge Navigator including Nursing Report Info and Facility/NextLevel of Care Info - Call report and arrange for the patient???s first visit. - Send required packet of dismissal information with patient, including After Visit Summary and advance directive. PRIMARY SERVICE: - Please provide a non-[facility] home health order for resumption of previous [...] to home self care; [facility], an updated oxygen prescription and [...] Notes Hospital Course - Marielena Alfaro APRN, C.N.P. - 08/01/2022 5:51 PM CDT Mr. Chery is a 87 y.o. male who presented as a direct admission from [facility] for further evaluation of sinus bradycardia. He [...] several doses of intravenous Lasix yesterday in [facility] that his scrotal edema and lower extremity [...] did have frequent PACs and PVCs. MOME rn cardiac was placed prior to discharge and to [...] updated. He was aggressively diuresed at the [facility] and appears euvolemic. Given right-sided heart failure [...] M.D. [address] [place] [phone] (Wo ) Scheduled Referrals Name Type Priority Associated Diagnoses Order S [facility] Outpatient Referral Routine Congestive Heart Ord ered: Health referral Failure (HCC) 08/02/2022 Bradycardia Sinus documented as of this encounter Procedures Procedure Name Priority Date/Time Associated Comments Diagnosis ECG AMBULATORY REAL Routine 08/15/2022 8:00 Bradycardia [...] all are in the outpatients) results section. THYROPEROXIDASE AB, S Timed 08/02/2022 [...] procedure are in the results section. T3 (TRIIODOTHYRONINE), Routine 08/02/2022 6:07 [...] PM CDT documented in this encounter Results ECG AMBULATORY REAL TIME CARDIAC MONITORING - [...] Duration 0 sec duration INFOBIONIC MOME AF [place] 0% percent INFOBIONIC MOME [place] Runs 1114 [...] The patient reported no symptomatic e vents. Usability Engineer: VENKATESH Perrin / VENKATESH Devine Procedure Note [...] The patient reported no symptomatic e vents. Usability Engineer: VENKATESH Perrin / VENKATESH Devine Marielena Alfaro [...] Address City/State/ZIP Code Phon e Number POC [facility] [address] [place] [address] [place] [address] [place] [facility] [address] DX Chest [...] APRN, C.N.P. IMG DIAGNOSTIC IMAGING P ROCEDURES (ABNORMAL) T3 (Triiodothyronine), Free (08/02/2022 6:07 AM CDT) P athologist Signature T3 2.2 (L) 2.8 - 4.4 08/02/2022 SDSC (Triiodothyron pg/mL 12:00 PM CDT ine), Free, S Specimen Anatomical Collection Method Collection Time Receive d Time (Source) Location / / Volume Laterality Blood (Blood, 08/02/2022 6:07 AM 08/02/20 22 Venous) CDT 11:03 AM CDT Marielena Alfaro APRN, C.N.P. LAB BLOOD ADD-ON Performing Organization Address City/[facility]/ZIP Code Phon e Number [facility] [address] [place], [place] [address] [place] [id number] [place] [address] [place] (ABNORMAL) T4 (Thyroxine), Free (08/02/2022 6:07 AM CDT) P athologist Signature T4 0.7 (L) 0.9 - 1.7 08/02/2022 DTL (Thyroxine), ng/dL 10:04 AM CDT Free, S Specimen Anatomical Collection Method Collection Time Receive d Time (Source) Location / / Volume Laterality Blood (Blood, 08/02/2022 6:07 AM 08/02/20 8:22 Venous) CDT AM CDT Marielena Alfaro APRN, YolisN.P. LAB BLOOD ADD-ON Performing Organization Address City/[facility]/ZIP Code Phon e Number [facility] - [address] Thyroperoxidase (TPO) Antibodies, Serum (08/02/2022 6:07 AM CDT) Patholo gist Method Time Signature Thyroperoxidase Ab, <0.3 <9.0 08/02/2022 DTL S IU/mL 9:20 AM CDT Specimen Anatomical Collection Method Collection Time Receive d Time (Source) Location / / Volume Laterality Blood 08/02/2022 6:07 AM 6:45 CDT AM CDT Marielena Alfaro APRN, C.N.P. LAB BLOOD NON ADD-ON Performing Organization Address City/[facility]/ZIP Code Phon e Number [facility] - [address] [place], [place] [address] [facility] [address] (ABNORMAL) T4 (Thyroxine), Free, Serum (08/02/2022 [...] Organization Address City/State/ZIP Code Phon e Number [facility] - [address] [place] [phone] [facility] [place] [address] Laboratories-[facility] 200 [facility] Lipid Panel (08/02/2022 6:07 AM CDT) P athologist Signature Triglycerides 41 mg/dL 08/02/2022 DTL [...] =220 mg/dL Fasting (8 HR or more) [id number] 08/02/2022 6:45 A M CDT DT Specimen Anatomical Collection Method Collection Time Receive d Time (Source) Location / / Volume Laterality Blood (Blood, 08/02/2022 6:07 AM 08/02/20 6:45 Venous) CDT AM CDT Marielena Alfaro APRN, Aram.N.P. LAB BLOOD ADD-ON Performing Organization Address City/[facility]/ZIP Code Phon e Number [facility] - [id number] [place] [address] (ABNORMAL) Hemoglobin A1c (08/02/2022 6:07 AM CDT) athologist Signature Hemoglobin A1c, 6.3 (H) 4.0 - 5.6 08/02/2022 [facility] B % 7:07 AM CDT Comment: Hemoglobin [...] C.N.P. LAB BLOOD ADD-ON Performing Organization Address City/[facility]/ZIP Code Phon e Number [facility] - [phone] [place] [address] (ABNORMAL) Thyroid Function [place] (08/02/2022 6:07 AM CDT) athologist Signature TSH, Sensitive 21.0 (H) 0.3 - 4.2 08/02/2022 DT mIU/L 7:17 AM CDT Specimen Anatomical Collection Method Collection Time Receive d Time (Source) Location / / Volume Laterality Blood (Blood, 08/02/2022 6:07 AM 08/02/20 6:45 Venous) CDT AM CDT Marielena Alfaro APRN, C.N.P. LAB BLOOD ADD-ON Performing Organization Address City/State/ZIP Code Phon e Number [facility] - [address] [place] [address] [facility] [place] [address] Laboratories-[facility] 200 [facility] Type and Screen (with reflex Antibody ID) (08/02/2022 6:07 AM CDT) [facility] Method Time Signature ABORh A Pos Not 08/02/2022 STRM applicable 6:44 AM CDT Antibody Negative Negative 08/02/2022 STRM Screen 6:58 AM CDT Type & Screen 08/05/2022 08/02/2022 STRM Expiration 23:59 6:44 AM CDT Testing Lynne DEFAULT 08/02/2022 STRM Location 6:22 AM CDT Specimen Anatomical Collection Method Collection Time Receive d Time (Source) Location / / Volume Laterality Blood (Blood, 08/02/2022 6:07 AM 08/02/20 6:22 Venous) CDT AM CDT Marielena Alfaro APRN, C.N.P. LAB BLOOD BANK TEST SHERRI FLORES Performing Organization Address City/[facility] Code Phon e Number [facility] - [address] [place] [address] [place] [address] Laboratories-[address] (ABNORMAL) CBC without Differential (08/02/2022 6:07 AM CDT) [facility] Method Time Signature Hemoglobin 8.1 (L) [...] Organization Address City/State/ZIP Code Phon e Number [facility] - [address] [place], [place] [address] [facility] [place] [address] [facility] [address] (ABNORMAL) Comprehensive Metabolic Panel [...] Organization Address City/State/ZIP Code Phon e Number [facility] - 200 [place], [place] [address] [facility] [place] [address] [facility] 200 [facility] ECG 12 Lead (08/01/2022 7:54 PM CDT) P athologist Signature Ventricular Rate 75 BPM MUSE ECG/Min [place] Interval 170 ms MUSE QRSD Interval 96 ms MUSE QT Interval 418 ms MUSE QTC Interval 466 ms MUSE P [place] 80 degrees MUSE R [place] -25 degrees MUSE T Wave [place] 100 degrees MUSE Specimen Anatomical Collection Method [...] that is no t available. Procedure Note Rofl Rojas M.D. - 08/01/2022Form atting of this [...] Organization Address City/State/ZIP Code Phon e Number [facility] - 200 [place], [place] [address] [place] [address] [place] [address] Laboratories-[address] (ABNORMAL) NT-Pro B-Type Natriuretic Peptide (BNP) [...] e Number [facility] - [address] [place], [place] [address] [place] [id number] [facility]-[address] (ABNORMAL) CBC with Differential, Blood (08/01/2022 6:50 [...] Organization Address City/State/ZIP Code Phon e Number [facility] - [address] [place] [address] [facility] [place] [address] Laboratories-[address] ECG 12 Lead (08/01/2022 6:38 PM CDT) P athologist Signature Ventricular Rate 72 BPM MUSE ECG/Min [place] Interval 182 ms MUSE QRSD Interval 98 ms MUSE QT Interval 406 ms MUSE QTC Interval 444 ms MUSE P [place] 69 degrees MUSE R [place] -19 degrees MUSE T Wave [place] 96 degrees MUSE Specimen Anatomical Collection Method [...] was found Revised Report Marielena Alfaro APRN, C.N.P. ECG ORDERABLES Performing [...] 08/01/2022 08/02/2022 amLODIPine tablet 2.5 mg (NORVASC) 0817 (Given - Provider: Maria D Andrews RJluisN.) 2.5 mg, oral, Daily, First dose on Fri08/02/[address] tablet 81 mg 0817 (Gi austyn - Provider: Maria D Andrews RJluisN.) 81 mg, oral, Daily, First dose on Fri at 0900, Swallow whole. Do NOT crush, chew, or split tablet. buPROPion XL 24 hr tablet 300 mg (WELLBUTRIN XL) 0817 (Given - Provider: Maria D Andrews RJluisN.) 300 mg, oral, Daily, First dose on Fri at 0900, Swallow whole. Do NOT crush, chew, or split tablet. cholecalciferol (vitamin D3) tablet 25 mcg 816 (Given - Provider: Maria D Andrews RJluisN.) 25 mcg, oral, Daily, First dose on Fri at 0900, cholecalciferol (vitamin D3) orderable was interchanged for cholecalciferol (vitamin D3) tablet/capsule finasteride tablet 5 mg (PROSCAR) 0817 (Given - Provider: Maria D Andrews RJluisN.) 5 mg, oral, Daily, First dose on [...] 0818 (Given - Provider: Maria D Andrews RGuy) 2,000 mg, oral, Daily, First dose (after [...] 205 5 (Given - Provider: Priya Grewal R.N.) 0800 (Given - Provider: Maria D Andrews RGuy) 3 mL, intravenous, Every 12 hours schedu led, First dose on Lise 08/01/22 at 2100, Peripheral Intravenous Catheter and Rapid Infusion Catheter, when no infusion to maintain patency tamsulosin 24 hr capsule 0.4 mg (FLOMAX) 0817 (Given - Provider: Maria D Andrews RGuy) 0.4 mg, oral, Daily, First dose on Fri at 0900, Swallow whole. Do NOT crush, chew or open capsule. torsemide tablet 20 mg (DEMADEX) 1104 (Given - Provider: Maria D Andrews R.N.) 20 mg, oral, Daily, First dose (after [...] mg of calcium, oral, Every 2 hour TN N, indigestion, Not to exceed 12 tablets [...] injection documented in this encounter Care Teams International First Officer Relationship Specialty Start Date End Date Elsewhere, Pcp PCP - General Internal Medicine 01/14/22 documented as of this encounter
--- OUTSIDE RECORDS SUMMARY | 2022-08-29 08:56 | XMS_ITS | Encounter Summary ---
:1935 Author Organization [facility] Address [address] [place] [address] Care Team Providers Name Role Phone Elsewhere, Pcp Primary Care Provider Unavailable Reason for Referral Outpatient (Routine) - Closed Specialty Diagnoses / Procedures Referred By Contact Refer red To Contact Radiology Diagnoses Malignant Neoplasm Of Bladder (HCC) Hydronephrosis Gibran Ruvalcaba M.D. [facility] Procedures IR Nephrostomy Tube Exchange Left IR Nephrostomy Tube Check Left [address] [place] [address] Referral ID Status Reason Start Date Expiration Date Visits Requ ested Visits Authorized [id number] Closed 07/01/2022 07/01/2023 1 1 Encounter Details Date Type Department Care Team Description 07/01/2022 Clinical Communication Department of Urology Analisa Ruvalcaba in [facility] lonny Gardner M.D. 200 [facility] 200 [place] [address] [phone] Social History Tobacco Use Types Packs/Day Years [...] you attend mu-ism or Patient refused 2021 confucianist services? Do you belong to any clubs or No 05/17/2022 organizations such as mu-ism groups, unions, [employer] or athletic groups, or school groups? 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 documented in this encounter Plan of Treatment Upcoming Encounters Date Type Specialty Care Team Description 09/03/2022 Telemedicine Urology Albert Waller M.D. [address] [place] [address] (Wo rk) documented as of this [...] raining. TECHNIQUE: Prone positioning. Fluoroscop ic senior javascript engineer image demonstrates the likely malpositioning of the [...] Over a torque wire, a new 12 Greenlandic by 25 cm pigtail catheter was advanced [...] raining. TECHNIQUE: Prone positioning. Fluoroscop ic senior javascript engineer image demonstrates the likely malpositioning of the [...] Over a torque wire, a new 12 Greenlandic by 25 cm pigtail catheter was advanced [...] Hydronephrosis documented in this encounter Care Teams Bead Wrapper Relationship Specialty Start Date End Date Elsewhere, Pcp PCP - General Internal Medicine 01/14/22 documented as of this encounter
--- OUTSIDE RECORDS SUMMARY | 2022-08-29 08:56 | XMS_ITS | Encounter Summary ---
:1935 Author Organization [facility] Address [address] [place] [address] Care Team Providers Name Role Phone Elsewhere, Pcp Primary Care Provider Unavailable Reason for Visit Outpatient (Routine) - Closed Specialty Diagnoses / Procedures Referred By Contact Refer red To Contact Diagnoses Malignant Neoplasm Of Bladder (HCC) Claude Loaiza, [facility], [facility] Procedures Cystoscopy (specific provider) P.A.-C. 200 [place] [address] Referral ID Status Reason Start Date Expiration Date Visits Requ ested Visits Authorized [id number] Closed 06/14/2022 06/14/2023 1 1 Encounter Details Date Type Department Care Team Description 06/14/2022 Procedure visit Department of Urology Gibran Ruvalcabaant Neoplasm Of in Jj Batista M.D. Bladder (HCC) [place] 200 [facility] 200 [place] [address] [phone] Social History Tobacco Use Types Packs/Day Years [...] you attend christianity or Patient refused 2021 quaker services? Do you belong to any clubs or No 05/17/2022 organizations such as christianity groups, unions, fra[employer] or athletic groups, or school groups? 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 [address] [place] [address] (Wo rk) documented as of this encounter Procedures Procedure Name Priority Date/Time Associated Comments Diagnosis [place] INJ ANTEGRD Routine 06/14/2022 2:29 PM Malignant [...] MPAS, P.A.-C. Claude ZELAYA P.A.-C. UROLOGY ORDERABLES Cystoscopy (specific [...] MPAS, P.A.-C. Claude ZELAYA P.A.-C. 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
--- OUTSIDE RECORDS SUMMARY | 2022-08-29 08:56 | XMS_ITS | Encounter Summary ---
:1935 Author Organization [facility] Address [address] [place] [address] Care Team Providers Name Role Phone Elsewhere, Pcp Primary Care Provider Unavailable Encounter Details Date Type Department Care Team Description 06/19/2022 Clinical Communication Department of Urology Analisa Ruvalcaba in [facility] lonny Gardner M.D. 200 [facility] 200 [place] [phone] [phone] Social History Tobacco Use Types Packs/Day Years [...] you attend episcopalian or Patient refused 2021 caodaism services? 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 Would a nurse be able to return a call to them please? Does caller have Auth on file: Ok to respond via portal: No Best Number to be reached at: [phone] Best time of day to call: Pharmacy info if needed: documented in this encounter Plan of Treatment Upcoming Encounters Date Type Specialty Care Team Description 09/03/2022 Telemedicine Urology Albert Waller M.D. [address] [place] [address] (Wo rk) documented as of this encounter Visit Diagnoses Not on filedocumented in this encounter Care Teams Mid Level Clinician Relationship Specialty Start Date End Date Elsewhere, Pcp PCP - General Internal Medicine 01/14/22 documented as of this encounter
--- OUTSIDE RECORDS SUMMARY | 2022-08-29 08:56 | XMS_ITS | Encounter Summary ---
:1935 Author Organization [facility] Address [address] [place] [address] Care Team Providers Name Role Phone Elsewhere, Pcp Primary Care Provider Unavailable Reason for Visit Outpatient (Routine) - Closed Specialty Diagnoses / Procedures Referred By Contact Refer red To Contact Diagnoses Hydronephrosis Malignant Neoplasm Of Bladder (HCC) Armida Botello APRN, [facility] Procedures URO Cystoscopy (general) C.N.P., D.N.P. [address] [place] [phone] Referral ID Status Reason Start Date Expiration Date Visits Requ ested Visits Authorized [id number] Closed 05/17/2022 05/17/2023 1 1 Encounter Details Date Type Department Care Team Description 06/03/2022 Procedure visit Department of Armida Botello APRN, C.N.P., D.N.P. [address] [place] [phone] Stricture Urethral Postoperative Male (P rimary Dx); Urology in Lo Sewell APRN, C.N.P., D.N.P. [address] [place] [phone] Hydronephrosis; [place], [place] Malignant Neoplasm Of Bladde r (HCC) [address] [place] [address] Social History Tobacco Use Types Packs/Day Years [...] you attend zoroastrianism or Patient refused 2021 caodaism services? 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 - 06/03/2022 8:00 AM CDT Patient was seen for a cystoscopy procedure. Cystoscope CYF-VH #[id number] was used during today's cystoscopy procedure. Accessories used: cystoscope reusable (sterilized) stop cock Load number from processing via [employer]: [id number] documented in this encounter Procedure Notes Lo [...] through the urethra.Urethroscopy demonstrated dense #13- #14 Jamaican distal penile urethral stricture. Unable to transverse cystoscope related to notable discomfort. Given patient discomfort the procedure was evacuated. Cystoscope was removed. He is currently performing intermittent catheterization with 14 Jamaican catheter. IMPRESSION: #1 Distal penile urethral stricture [...] Waller M.D. [address] [place] [address] (Wo rk) documented as of this [...] 06/03/2022 8:51 AM CDT Lo Sewell APRN, C.N.PJluis, D.N.P. ? 06/04/2022 ??9:48 AM URO Cystoscopy (general) Date/Time: 06/03/2022 8:51 AM Performed by: Lo Sewell APRN, C .N.P., D.N.P. Authorized by: Armida Botello D.N.P. , R.N. Care team members present 1. Lo Sewell APRN, C.N.P., D.N. P. 2. Aby Jackson L.PJluisN. Additional procedures performed: cystosc opy ?? PROCEDURE DETAILS The patient was brought to the cystoscop y suite and placed in the lithotomy position. The patient was prep ped and draped in the standard fashion. ??A FLEXIBLE CYSTOSCOPE was ins erted through the urethra. Urethroscopy demonstrated dense #13-#14 Jamaican distal penile urethral stricture. Unable to transverse cystosco pe related to notable discomfort. Given patient discomfort the procedure w as evacuated. Cystoscope was removed. ??He is currently performing in termittent catheterization with 14 Jamaican catheter. IMPRESSION: #[address] [...] (HCC) documented in this encounter Care Teams Line Up Worker Relationship Specialty Start Date End Date Elsewhere, Pcp PCP - General Internal Medicine 01/14/22 documented as of this encounter
--- OUTSIDE RECORDS SUMMARY | 2022-08-29 08:56 | XMS_ITS | Encounter Summary ---
:1935 Author Organization [facility] Address [address] [place] [address] Care Team Providers Name Role Phone Elsewhere, Pcp Primary Care Provider Unavailable Reason for Referral MRI/CAT/PET Scan (Routine) - Closed Specialty Diagnoses / Procedures Referred By Contact Refer red To Contact Radiology Diagnoses [facility] Urogram without and with IV Contrast C.N.P., D.N.P. 200 [place] [address] Referral ID Status Reason Start Date Expiration Date Visits Requ ested Visits Authorized [id number] Closed 05/17/2022 05/17/2023 1 1 Reason for Visit MRI/CAT/PET Scan (Routine) - Closed Specialty Diagnoses / Procedures Referred By Contact Refer red To Contact Radiology Diagnoses [facility]onephrosis [facility] CT Urogram without and with IV Contrast C.N.P., D.N.P. [address] [place] [address] Referral ID Status Reason Start Date Expiration Date Visits Requ ested Visits Authorized [id number] Closed 05/17/2022 05/17/2023 1 1 Encounter Details Date Type Department Care Team Description 05/23/2022 Hospital Encounter Department of Rosmery, Armida Mcarthur nephrosis Radiology, José Dubois APRN, C.N.P., Building, in [facility] EdwigeN.P. [place] [address] [facility] [address] [place] [phone] Social History Tobacco Use Types Packs/Day Years [...] you attend scientology or Patient refused 2021 mosque services? 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 [address] [place] [address] (Wo rk) documented as of this [...] Orders documented in this encounter Care Teams Meat Supervisor Relationship Specialty Start Date End Date Elsewhere, Pcp PCP - General Internal Medicine 01/14/22 documented as of this encounter
--- OUTSIDE RECORDS SUMMARY | 2022-08-29 08:56 | XMS_ITS | Encounter Summary ---
:1935 Author Organization [facility] Address [address] [place] [address] Care Team Providers Name Role Phone Elsewhere, Pcp Primary Care Provider Unavailable Reason for Referral Outpatient (Routine) - Closed Specialty Diagnoses / Procedures Referred By Contact Refer red To Contact Urology Claude Loaiza M PAS, P.A.-C. [facility] [address] [place] [address] Referral ID Status Reason Start Date Expiration Date Visits Requ ested Visits Authorized [id number] Closed 06/14/2022 06/13/2025 1 1 Scheduling Instructions Phone visit to discuss results of CTU an d follow up RI/CAT/PET Scan (Routine) - Closed Specialty Diagnoses / Procedures Referred By Contact Refer red To Contact Radiology Diagnoses Malignant Neoplasm Of Bladder (HCC) Claude Loaiza MPAS, [facility] Procedures CT Urogram without and with IV Contrast PVic [address] [place] [address] Referral ID Status Reason Start Date Expiration Date Visits Requ ested Visits Authorized [id number] Closed 06/14/2022 06/14/2023 1 1 utpatient (Routine) - Closed Specialty Diagnoses / Procedures Referred By Contact Refer red To Contact Radiology Diagnoses Malignant Neoplasm Of Bladder (HCC) Claude Loaiza MPAS, [facility] Procedures IR Nephrostomy Tube Check Left PV[facility] [address] [place] [address] Referral ID Status Reason Start Date Expiration Date Visits Requ ested Visits Authorized [id number] Closed 06/14/2022 06/14/2023 1 1 Reason for Visit Outpatient (Routine) - Closed Specialty Diagnoses / Procedures Referred By Contact Refer red To Contact Diagnoses Malignant Neoplasm Of Bladder (HCC) Claude Loaiza MPAS, [facility] Procedures Cystoscopy (specific provider) P.Becky.-CJluis [address] [place] [address] Referral ID Status Reason Start Date Expiration Date Visits Requ ested Visits Authorized [id number] Closed 06/14/2022 06/14/2023 1 1 Encounter Details Date Type Department Care Team Description 06/14/2022 Procedure visit Department of Urology Gibran Ruvalcaba Neoplasm Of in Jj Batista M.D. Bladder (HCC) (Primary [place] 200 [facility] Dx) 200 [place] [phone] [phone] Social History Tobacco Use Types Packs/Day Years [...] you attend bahai or Patient refused 2021 islam services? 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 - 06/14/2022 1:30 PM CDT Patient was seen for a cystoscopy procedure. Cystoscope CYF-VH #[id number] was used during today's cystoscopy procedure. Accessories used: cystoscope reusable (sterilized) stop cock Load number from processing via [employer]: [id number] With Nephrostogram and urethral dilation, consent was obtained. documented in this encounter Procedure Notes Gibran Ruvalcaba M.D. - 06/14/2022 1:30 PM CDTAssociated Order(s): URO Nephrostogram Pre-Procedure Diagnose(s): Malignant Neoplasm Of Bladder (HCC) URO Nephrostogram Date/Time: 06/14/2022 2:50 PM Performed by: Gibran Ruvalcaba M.D. Authorized by: Claude Loaiza, [facility], P.A.-C. Performed a left nephrostogram. Instilled [...] Gibran Ruvalcaba M.D. Authorized by: Claude Loaiza, GARCIA, P.A.-C. Attempted cystoscopy. Place appropriate gel. There was a narrow stricture just right past the fossa.Note the patient is receiving CIC with a 14 Yemeni straight will continue this. I took the [...] Waller M.D. [address] [place] [address] (Wo rk) Scheduled Referrals Name Type Priority Associated Diagnoses Order S jermain Urology office Outpatient Referral Routine Expect ed: visit (clinic) 08/22/2022 (Approximate), Expires: 09/14/2023 documented as of this encounter Procedures Procedure Name Priority Date/Time Associated Comments Diagnosis URO CYSTOSCOPY Routine 06/14/2022 2:29 PM Malignant Neoplasm R esults for this (SPECIFIC PROVIDER) CDT Of Bladder (HCC) proc edure are in the results section. [place] INJ ANTEGRD Routine 06/14/2022 2:29 PM Malignant Neoplasm R esults for this NFROSGRM&/URTGRM CDT Of Bladder (HCC) procedu re are in EXIST the results section. documented in this encounter Results IR Nephrostomy Tube Check Left (08/20/2022 12:17 [...] nephrostomy tube was removed and a [address] aced. A glide head [...] nephrostomy tube was removed and a [address] aced. A glide head [...] Antegrade nephrostogram demonstrates a UPJ stenosis. NR Calude ZELAYA, PBe. IMG IR PROCEDURES CT Urogram without and [...] Pr imary Malignant Neoplasm Of Bladder (HCC) Malignant Neoplasm [...] dose documented in this encounter Care Teams Skein Straightener Relationship Specialty Start Date End Date Elsewhere, Pcp PCP - General Internal Medicine 01/14/22 documented as of this encounter
--- OUTSIDE RECORDS SUMMARY | 2022-08-29 08:56 | XMS_ITS | Encounter Summary ---
:1935 Author Organization [facility] Address [address] [place] [address] Care Team Providers Name Role Phone Elsewhere, Pcp Primary Care Provider Unavailable Encounter Details Date Type Department Care Team Description 06/14/2022 Orders Only [facility] [place] GARCIA PEmaC. 200 [facility] 200 [place] [address] [place], [place] [phone] (Wo rk) Social History Tobacco Use Types [...] you attend alevism or Patient refused 2021 quaker services? 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 [address] [place] [address] (Wo rk) documented as of this encounter Visit Diagnoses Not on filedocumented in this encounter Care Teams Systems Manager Relationship Specialty Start Date End Date Elsewhere, Pcp PCP - General Internal Medicine 01/14/22 documented as of this encounter
--- OUTSIDE RECORDS SUMMARY | 2022-08-29 08:56 | XMS_ITS | Encounter Summary ---
:1935 Author Organization [facility] Address [address] [place] [address] Care Team Providers Name Role Phone Elsewhere, Pcp Primary Care Provider Unavailable Reason for Referral Outpatient (Routine) - Closed Specialty Diagnoses / Procedures Referred By Contact Refer red To Contact Radiology Diagnoses Malignant Neoplasm Of Bladder (HCC) Nura David IV [facility] Procedures IR Nephrostomy Tube Exchange Left M.D. [address] [place] [address] Referral ID Status Reason Start Date Expiration Date Visits Requ ested Visits Authorized [id number] Closed 05/20/2022 05/20/2023 1 1 Outpatient (Routine) - Closed Specialty Diagnoses / Procedures Referred By Contact Refer red To Contact Radiology Diagnoses Malignant Neoplasm Of Bladder (HCC) Claude Loaiza MPAS, [facility] Procedures IR Nephrostomy Tube Check Left P.A.-C. [address] [place] [address] Referral ID Status Reason Start Date Expiration Date Visits Requ ested Visits Authorized [id number] Closed 06/14/2022 06/14/2023 1 1 Reason for Visit Outpatient (Routine) - Closed Specialty Diagnoses / Procedures Referred By Contact Refer red To Contact Radiology Diagnoses Malignant Neoplasm Of Bladder (HCC) Claude Loaiza MPAS, [facility] Procedures IR Nephrostomy Tube Check Left P.A.-C. [address] [place] [address] Referral ID Status Reason Start Date Expiration Date Visits Requ ested Visits Authorized [id number] Closed 06/14/2022 06/14/2023 1 1 Encounter Details Date Type Department Care Team Description 08/20/2022 Hospital Encounter Department of Mar Loaiza MPAS, Eduardo [address] [place] [phone] Malignant Neoplasm Radiology, Jamir Lorenzana M.D. [address] [place] [phone] Of Bladder (HCC) [facility], in [place], [place] [address] [place] [phone] Social History Tobacco Use Types Packs/Day Years [...] you attend advent or Patient refused 2021 methodist services? Do [...] or slept in a chcf (including now)? Education Answer Date Recorded What is the highest level of school you have completed or 12 th grade 05/17/2022 the highest degree you have received? 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 [address] [place] [address] (Wo ) documented as of this encounter Procedures Procedure Name Priority Date/Time Associated Comments Diagnosis IR NEPHROSTOMY TUBE RAD - Routine 08/20/2022 12:17 Malignant Res ults for this EXCHANGE LEFT (most inpatients PM CDT Neoplasm Of procedure are in and all Bladder (HCC) the results outpatients) section. IR NEPHROSTOMY TUBE RAD - Routine 08/20/2022 12:17 Malignant Res ults for this CHECK LEFT (most inpatients PM CDT Neoplasm Of procedure a re in and all Bladder (HCC) the results outpatients) section. documented in this encounter Results IR Nephrostomy Tube Exchange Left (08/20/2022 12:17 PM CDT) Anatomical Region [...] nephrostomy tube was removed and a [address] Naur[address] aced. A glide head [...] minutes. Estimated blood loss: none.. Procedure Note Guzman, Jamir, M.D. - 08/20/2022Formatti ng of this note [...] nephrostomy tube was removed and a [address] Nauruan [address] aced. A glide head [...] Antegrade nephrostogram demonstrates a UPJ stenosis. NR Authorizing Provider Result Mayda David IV, M.D. IMG IR PROCEDURES IR [...] nephrostomy tube was removed and a 6 Nauruan [address] was pl aced. A glide head [...] nephrostomy tube was removed and a 6 Nauruan sheath was pl aced. A glide head [...] NR Claude ZELAYA, P.A.-C. IMG IR PROCEDURES documented in this encounter Visit Diagnoses Diagnosis Malignant Neoplasm Of Bladder (HCC) documented in this encounter Administered Medications Inactive Administered Medications - up to 3 most recent administrations Medication Order MAR Action Action Date Dose Rate Site fentaNYL injection 25 mcg Given 08/20/2022 12:07 PM CDT 25 mcg (SUBLIMAZE) 25 mcg, intravenous, [...] is less than 8 breaths/minute., Starting on Fri08/20/22 at 1048, Intraprocedure (RAD) Given 08/20/2022 11:59 AM CDT 25 mcg flumazeniL injection 0.2 mg (ROMAZICON) 0.2 mg, intravenous, Once as needed, rev ersal, Starting on Fri08/20/22 at 1048, For 1 dose, Intraprocedure (RAD), Administer once if patient has a RASS score of -4, -5 and has a respiratory rate less than 8 breaths/minute. iohexoL 300 mg iodine/mL solution (OMNIP AQUE) Given 08/20/2022 12:12 PM CDT 80 mL Code/trauma/sedation medication, Starting on Fri08/20/22 at 1212 levoFLOXacin in D5W IVPB 500 mg New Bag 08/20/2022 10:52 AM CD T 500 mg 100 mL/hr (LEVAQUIN) 500 mg, intravenous, at 100 mL/hr, Administer over 60 Minutes, Once, On Fri08/20/22 at 1100, For 1 dose, Preprocedure (RAD), Administer prior to HAE, second dose given morning after procedure, Drug Monitoring Program: Pharmacist to adjust medication dosing based on indication and drug clearance factors., Indications: Prophylaxis, surgical lidocaine-sodium bicarbonate (buffered) Given 08/20/2022 12:13 P M CDT 3 mL 0.9%-8.4% injection infiltration, Code/trauma/sedation medication, Starting on Fri08/20/22 at 1213 midazolam (PF) injection 0.5 mg (VERSED) 0.5 mg, intravenous, Once as needed, sed ation, Starting on Fri08/20/22 at 1048, For 1 dose, Intraprocedure (RAD) midazolam (PF) injection 0.5 mg (VERSED) Given 08/20/2022 12:07 PM CDT 0.5 mg 0.5 mg, intravenous, Every 2 min PRN, sedation, Starting on Fri08/20/22 at 1048, Intraprocedure (RAD), If RASS greater than -3, give additional dose(s) of 0.5 mg IV every 2 minutes for a maximum of 5 mg. Do not give if respiratory rate is less than 8 breaths/minute. Given 08/20/2022 11:59 AM CDT 0.5 mg Given 08/20/2022 11:54 AM CDT 1 mg NaCl 0.9% infusion 20 mL/hr, intravenous, Once as needed, t o keep vein open, Starting on Fri08/20/22 at 1048, For 1 dose, Intraprocedure (RAD) naloxone injection 0.2 mg (NARCAN) 0.2 mg, intravenous, Once as needed, respiratory depre ssion, Starting on Fri08/20/22 at 1048, For 1 dose, Intraproced ure (RAD), Administer once if patient has a RASS score of -4, -5 and has a respiratory rate less t gross 8 breaths/minute. ondansetron (PF) injection 4 mg (ZOFRAN) 4 mg, intravenous, Once as needed, nausea, vomiting, S tarting on Fri08/20/22 at 1048, For 1 dose, Intraprocedure (RAD) sodium chloride 0.9 % injection 10 mL 10 mL, intravenous, As needed, line care, Starting on Fri08/20/22 at 1048, Preprocedure (RAD), Peripheral Intraveno us Catheter and Rapid Infusion Catheter, prior to blood sampling, post blood transfusion or pos t blood sampling sodium chloride 0.9 % injection 3 mL 3 mL, intravenous, As needed, line care, Starting on T 08/20/22 at 1048, Preprocedure (RAD), Prior to and following infusion an d between multiple consecutive infusions: sodium chloride 0.9 % injection sodium chloride 0.9 % injection 3 mL 3 mL, intravenous, Every 12 hours scheduled, First dos e on Fri08/20/22 at 2100, Preprocedure (RAD), Peripheral Intraveno us Catheter and Rapid Infusion Catheter, when no infusion to maintain patency documented in this encounter Active and Recently Administered Medications Times are shown in CDT. Scheduled Medication Order 08/18/2022 08/19/2022 08/20/2022 levoFLOXacin in D5W IVPB 500 mg (LEVAQUIN) (COMPLETED) 1052 (New Bag - Provider: Michael Acosta R.N.) 500 mg, intravenous, at 100 mL/hr, Admin ister over 60 Minutes, Once, On Fri08/20/22 at 1100, For 1 dose, Preprocedure (RAD), Administer prior to HAE, second dose given morning after procedure, Drug Jonna toring Program: Pharmacist to adjust med ication dosing based on indication and drug clearance factors., Indications: Prophylaxis, surgical sodium chloride 0.9 % injection 3 mL 3 mL, intravenous, Every 12 hours schedu led, First dose on Fri08/20/22 at 2100, Preprocedure (RAD), Peripheral Intravenous Catheter and Rapid Infusion Catheter, when no infusion to maintain patency PRN Medication Order 08/18/2022 08/19/2022 08/20/2022 fentaNYL injection 25 mcg (SUBLIMAZE) 1159 (Given - Provider: Ellis Dinh R.N.)1207 (Given - Provider: Ellis Dinh R.N.) 25 mcg, intravenous, Every 2 min [...] is less than 8 breaths/minute., Starting on Fri08/20/22 at 1048, Intraprocedure (RAD) flumazeniL injection 0.2 mg (ROMAZICON) 0.2 mg, intravenous, Once as needed, rev ersal, Starting on Fri08/20/22 at 1048, For 1 dose, Intraprocedure (RAD), Administer once if patient has a RASS score of -4, -5 and has a respiratory rate less than 8 breaths/minute. iohexoL 300 mg iodine/mL solution (OMNIPAQUE) (COMPLETED) 1212 (Given - Provider: Jamir Hinds M.D.) Code/trauma/sedation medication, Starting on Fri08/20/22 at 1212 lidocaine-sodium bicarbonate (buffered) 0.9%-8.4% injection (COM PLETED) 1213 (Given - Provider: Jamir Guzman, M.D.) infiltration, Code/trauma/sedation medication, Starting on T u08/20/22 at 1213 midazolam (PF) injection 0.5 mg (VERSED) 0.5 mg, intravenous, Once as needed, sed ation, Starting on Fri08/20/22 at 1048, For 1 dose, Intraprocedure (RAD) midazolam (PF) injection 0.5 mg (VERSED) 1154 (Given - Provider: Ellis Dinh R.N.)1159 (Given - Provider: Ellis Dinh R.N.)1207 (Given - Provider: Ellis Dinh R.N.) 0.5 mg, intravenous, Every 2 min PRN, se dation, Starting on Fri08/20/22 at 1048, Intraprocedure (RAD), If RASS greater than -3, give additional dose(s) of 0.5 mg IV every 2 minutes for a maximum of 5 mg . Do not give if respiratory rate is less than 8 breaths/minute. NaCl 0.9% infusion 20 mL/hr, intravenous, Once as needed, t o keep vein open, Starting on Fri08/20/22 at 1048, For 1 dose, Intraprocedure (RAD) naloxone injection 0.2 mg (NARCAN) 0.2 mg, intravenous, Once as needed, res piratory depression, Starting on Fri08/20/22 at 1048, For 1 dose, Intraprocedure (RAD), Administer once if patient has a RASS score of -4, -5 and has a respiratory rate less than 8 breaths/minute. ondansetron (PF) injection 4 mg (ZOFRAN) 4 mg, intravenous, Once as needed, nause a, vomiting, Starting on Fri08/20/22 at 1048, For 1 dose, Intraprocedure (RAD) sodium chloride 0.9 % injection 10 mL 10 mL, intravenous, As needed, line care , Starting on Fri08/20/22 at 1048, Preprocedure (RAD), Peripheral Intravenous Catheter and Rapid Infusion Catheter, prior to blood sampling, post blood transfusion or post blood sampling sodium chloride 0.9 % injection 3 mL 3 mL, intravenous, As needed, line care, Starting on Fri08/20/22 at 1048, Preprocedure (RAD), Prior to and following infusion and between multiple consecutive infusions: sodium chloride 0.9 % injection documented in this encounter Care Teams Refrigeration Mechanic Helper Relationship Specialty Start Date End Date Elsewhere, Pcp PCP - General Internal Medicine 01/14/22 documented as of this encounter
--- OUTSIDE RECORDS SUMMARY | 2022-08-29 08:56 | XMS_ITS | Encounter Summary ---
:1935 Author Organization [facility] Address [address] [place] [address] Care Team Providers Name Role Phone Elsewhere, Pcp Primary Care Provider Unavailable Reason for Visit Outpatient (Routine) - Closed Specialty Diagnoses / Procedures Referred By Contact Refer red To Contact Radiology Diagnoses Malignant Neoplasm Of Bladder (HCC) Hydronephrosis Gibran Ruvalcaba M.D. [facility] Procedures IR Nephrostomy Tube Exchange Left IR Nephrostomy Tube Check Left [address] [place] [address] Referral ID Status Reason Start Date Expiration Date Visits Requ ested Visits Authorized [id number] Closed 07/01/2022 07/01/2023 1 1 Encounter Details Date Type Department Care Team Description 07/02/2022 Hospital Encounter Department of Gibran Ruvalcaba M.D. [address] [place] [address] Malignant Neoplasm Of Bladder (HCC); Radiology in Beatriz Leblanc M.D. [address] [place] [address] Hydronephrosis Blade Batista Madison, M.D. [address] [place] [address] [address] [place] [address] Social History Tobacco Use Types [...] you attend mandaen or Patient refused 2021 samaritan services? Do you belong to any clubs or No 05/17/2022 organizations such as mandaen groups, unions, fraReturnHauler or athletic groups, or school groups? 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 aspirin [address] tablet Take 1 tablet by 0 2015 mouth daily. glipiZIDE (GLUCOTROL XL) Take 10 mg by 0 10 mg 24 hr tablet mouth daily with breakfast. ACETAMINOPHEN ORAL 1,300 mg 2 (two) 0 05/08/2022 times a day. buPROPion XL (WELLBUTRIN Take 300 mg by [...] 3 tablet mg total) by mouth daily. HYDROcodone-acetaminophen 0 06/27/2022 (NORCO) 5-325 mg per tablet hydroxyurea (HYDREA) 500 Take 3-4 capsules by mouth daily. 1 500 mg on Fri- 0 10/27/2017 mg capsule 2000 mg on Fri-Fri METHOCARBAMOL ORAL 0 06/27/2022 nitroglycerin (NITROSTAT) Place [...] Waller M.D. [address] [place] [address] (Wo rk) documented as of this [...] d raining. TECHNIQUE: Prone positioning. Fluoroscop ic commercial sales specialist image demonstrates the likely malpositioning of [...] Over a torque wire, a new 12 Burmese by 25 cm pigtail catheter was advanced [...] d raining. TECHNIQUE: Prone positioning. Fluoroscop ic commercial sales specialist image demonstrates the likely malpositioning of [...] Over a torque wire, a new 12 Burmese by 25 cm pigtail catheter was advanced [...] 811 (New Bag - Provider: Marla Castaneda RGuy) 500 mg (rounded from 773 mg = [...] injection documented in this encounter Care Teams Experimental Physicist Relationship Specialty Start Date End Date Elsewhere, Pcp PCP - General Internal Medicine 01/14/22 documented as of this encounter
--- OUTSIDE RECORDS SUMMARY | 2022-08-29 08:56 | XMS_ITS | Encounter Summary ---
:1935 Author Organization [facility] Address [address] [place] [address] Care Team Providers Name Role Phone Elsewhere, Pcp Primary Care Provider Unavailable Encounter Details Date Type Department Care Team Description 08/02/2022 Hospital Encounter Division of Marielena Alfaro, Cardiovascular Diseases HEATING AND COOLING TECHNICIAN, C. N.P. in [facility] [address] [place] [address] [phone] Social History Tobacco Use Types Packs/Day Years [...] you attend worship or Patient refused 2021 quaker services? 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 [address] [place] [address] (Wo rk) documented as of this encounter Procedures Procedure Name Priority Date/Time Associated Diagnosis Comme nts ECG AMBULATORY REAL Routine 08/15/2022 8:00 PM Bradycardia Sin us Results for this TIME CARDIAC CDT procedure are i n MONITORING - the results HOSPITAL HOOKUP section. documented in this encounter Results ECG AMBULATORY [...] Duration 0 sec duration INFOBIONIC MOME AF [place] 0% percent INFOBIONIC MOME [place] Runs 1114 [...] The patient reported no symptomatic e vents. Eyeglass Cutter: VENKATESH Perrin / VENKATESH Devine Procedure Note [...] The patient reported no symptomatic e vents. Eyeglass Cutter: VENKATESH Perrin / VENKATESH Devine Marielena Alfaro APRN, C.N.P. CV CARDIAC SERVICES PROC EDURES Performing Organization Address City/State/ZIP Code Phon e Number INFOBIONIC MOME INFOBIONIC MOME NA documented in this encounter Visit Diagnoses Not on filedocumented in this encounter Care Teams Technical Staff Assistant Relationship Specialty Start Date End Date Elsewhere, Pcp PCP - General Internal Medicine 01/14/22 documented as of this encounter
--- OUTSIDE RECORDS SUMMARY | 2022-08-29 08:57 | XMS_ITS | Encounter Summary ---
:1935 Author Organization [facility] Address [address] [place] [address] Care Team Providers Name Role Phone Elsewhere, Pcp Primary Care Provider Unavailable Reason for Visit Reason Comments Urinary Retention Outpatient (Routine) - Closed Specialty Diagnoses / Procedures Referred By Contact Refer red To Contact Diagnoses Hydronephrosis Malignant Neoplasm Of Bladder (HCC) Retention Urinary Armida Botello APRN, [facility] Procedures URO Urethral cath removal & voiding trial (UCO/VT) C.N.P., D.N.P. [address] [place] [phone] Referral ID Status Reason Start Date Expiration Date Visits Requ ested Visits Authorized [id number] Closed 05/17/2022 05/17/2023 1 1 Encounter Details Date Type Department Care Team Description 05/17/2022 Procedure visit Department of Urology Armida Botello APRN, C.N.P., D.N.P. [address] [place] [phone] Hydronephrosis; in [place], Lalita Dewitt R.N. 200 [place] [address] Malignant Neoplasm Of Bladder (HCC); [place] [facility] [address] [place] [phone] Social History Tobacco Use Types Packs/Day Years [...] you attend mu-ism or Patient refused 2021 jew services? Do you belong to any clubs or No 05/17/2022 organizations such as mu-ism groups, unions, [employer] or athletic groups, or school groups? 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 [address] [place] [address] (Wo rk) documented as of this encounter Visit Diagnoses Diagnosis Hydronephrosis Malignant Neoplasm Of Bladder (HCC) Retention Urinary documented in this encounter Care Teams Auto Glass Installer Relationship Specialty Start Date End Date Elsewhere, Pcp PCP - General Internal Medicine 01/14/22 documented as of this encounter
--- OUTSIDE RECORDS SUMMARY | 2022-08-29 08:57 | XMS_ITS | Encounter Summary ---
:1935 Author Organization [facility] Address [address] [place] [address] Care Team Providers Name Role Phone Elsewhere, Pcp Primary Care Provider Unavailable Reason for Referral Outpatient (Routine) - Closed Specialty Diagnoses / Procedures Referred By Contact Refer red To Contact Urology Manny Anderson M .D. Alamiri, Jamal M, M.B., [address] [facility] [place], [place] [address] [address] [facility] [place] [address] Phone: Fax: Referral ID Status Reason Start Date Expiration Date Visits Requ ested Visits Authorized [id number] Closed 04/16/2022 04/16/2023 1 1 Radiation Therapy (Routine) - Authorized Specialty Diagnoses / Procedures Referred By Contact Refer red To Contact Diagnoses Malignant Neoplasm Of Bladder (HCC) Manny Anderson M.D. [facility] Procedures Management Visit [address] [place] [phone] Referral ID Status Reason Start Date Expiration Date Visits V isits Requested Authorized [id number] Authorized 03/05/2022 03/05/2023 10 10 Reason for Visit Radiation Therapy (Routine) - Authorized Specialty Diagnoses / Procedures Referred By Contact Refer red To Contact Diagnoses Malignant Neoplasm Of Bladder (HCC) Manny Anderson M.D. [facility] Procedures Management Visit [address] [place], [place] [address] Referral ID Status Reason Start Date Expiration Date Visits V isits Requested Authorized [id number] Authorized 03/05/2022 03/05/2023 10 10 Encounter Details Date Type Department Care Team Description 04/16/2022 Hospital Encounter Department of Manny Anderson Neoplasm Radiation Oncology Ashtyn Dubois Of Bladder (HCC) in [place], [address] [place], [place] [address] [facility] [address] [place], [place] [phone] (Work) [phone] Social History Tobacco Use Types Packs/Day Years [...] you attend religion or Patient refused 2021 judaism services? 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 Kurtis Bach at [facility] and demonstrated a large medial lobe of the prostate, 3 cm, with papillary bladder mass, 5 cm, the left bladder wall obstructing the left UO. The patient reported a history of gross hematuria for months and difficulty emptying his bladder. Discussed that the patient ideally would need TURBT and bilateral retrogrades. Patient will need to see his front desk auxiliary for surgical clearance, he is a poor candidate for surgery. 02/08/2022 Other Urology consultation at [facility] with Dr. David Day who recommended [...] urethral catheter and nephrostomy tube. Referral to [facility] provider. 03/12/2022 - Radiation Therapy Radiation Therapy [...] order for Urology follow up on our [facility]. He will contact us with any [...] M.D. 04/16/2022 6:46 PM CDT [facility] [address] [place] [phone] documented in this encounter Plan of Treatment Upcoming Encounters Date Type Specialty Care Team Description 09/03/2022 Telemedicine Urology Albert Waller M.D. [address] [place] [address] (Wo rk) Scheduled Orders Name Type [...] (HCC) documented in this encounter Care Teams Electron Tube Assembler Relationship Specialty Start Date End Date Elsewhere, Pcp PCP - General Internal Medicine 01/14/22 documented as of this encounter
--- OUTSIDE RECORDS SUMMARY | 2022-08-29 08:57 | XMS_ITS | Encounter Summary ---
:1935 Author Organization [facility] Address [address] [place] [address] Care Team Providers Name Role Phone Elsewhere, Pcp Primary Care Provider Unavailable Encounter Details Date Type Department Care Team Description 04/19/2022 Hospital Encounter Department of Radiation [facility]in Anderson[facility] [address] [place] [phone] Social History Tobacco Use Types Packs/Day Years [...] you attend yazidi or Patient refused 2021 restorationism services? 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 [address] [place] [address] (Wo rk) documented as of this encounter Visit Diagnoses Not on filedocumented in this encounter Care Teams Tinware Lithograph Press Operator Relationship Specialty Start Date End Date Elsewhere, Pcp PCP - General Internal Medicine 01/14/22 documented as of this encounter
--- OUTSIDE RECORDS SUMMARY | 2022-08-29 08:57 | XMS_ITS | Encounter Summary ---
:1935 Author Organization [facility] Address [address] [place] [address] Care Team Providers Name Role Phone Elsewhere, Pcp Primary Care Provider Unavailable Encounter Details Date Type Department Care Team Description 04/12/2022 Hospital Encounter Department of Radiation Calin Anderson, [facility] [place] [facility] [place] [address] [place] [address] [phone] Social History Tobacco Use Types Packs/Day Years [...] you attend baptism or Patient refused 2021 moravian services? 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 [address] [place] [address] (Wo rk) documented as of this encounter Visit Diagnoses Not on filedocumented in this encounter Care Teams Stator Winder Relationship Specialty Start Date End Date Elsewhere, Pcp PCP - General Internal Medicine 01/14/22 documented as of this encounter
--- OUTSIDE RECORDS SUMMARY | 2022-08-29 08:57 | XMS_ITS | Encounter Summary ---
:1935 Author Organization [facility] Address [address] [place] [address] Care Team Providers Name Role Phone Elsewhere, Pcp Primary Care Provider Unavailable Reason for Visit Reason Comments Appointment Cancelled Encounter Details Date Type Department Care Team Description 05/21/2022 Clinical Communication Department of Adonay Klein Urology in Bassam Ayala M.D. Cancelled [place], [facility] [address] [place], [place] [address] [facility] [address] [place], [place] [phone] (Work) [phone] Social History Tobacco Use Types Packs/Day Years [...] you attend shinto or Patient refused 2021 yarsani services? Do [...] or slept in a correction (including now)? Education Answer Date Recorded What is the highest level of school you have completed or 12 th grade 05/17/2022 the highest degree you have received? 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 [address] [place], [place] [address] (Wo rk) documented as of this encounter Visit Diagnoses Not on filedocumented in this encounter Care Teams Zinc Chloride Operator Relationship Specialty Start Date End Date Elsewhere, Pcp PCP - General Internal Medicine 01/14/22 documented as of this encounter
--- OUTSIDE RECORDS SUMMARY | 2022-08-29 08:57 | XMS_ITS | Encounter Summary ---
:1935 Author Organization [facility] Address [address] [place] [address] Care Team Providers Name Role Phone Elsewhere, Pcp Primary Care Provider Unavailable Encounter Details Date Type Department Care Team Description 04/05/2022 Hospital Encounter Department of Radiation Calin Anderson, Oncology in [place] [facility] [place] [address] [place] [phone] [phone] Social History Tobacco Use Types Packs/Day Years [...] you attend samaritan or Patient refused 2021 jainism services? 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 [address] [place] [address] (Wo rk) documented as of this encounter Visit Diagnoses Not on filedocumented in this encounter Care Teams Airport Guide Relationship Specialty Start Date End Date Elsewhere, Pcp PCP - General Internal Medicine 01/14/22 documented as of this encounter
--- OUTSIDE RECORDS SUMMARY | 2022-08-29 08:57 | XMS_ITS | Encounter Summary ---
:1935 Author Organization [facility] Address [address] [place] [address] Care Team Providers Name Role Phone Elsewhere, Pcp Primary Care Provider Unavailable Reason for Referral Outpatient (Routine) - Closed Specialty Diagnoses / Procedures Referred By Contact Refer red To Contact Radiology Diagnoses Malignant Neoplasm Of Bladder (HCC) Nura David IV [facility] Procedures IR Nephrostomy Tube Exchange Left M.D. 200 [place] [address] Referral ID Status Reason Start Date Expiration Date Visits Requ ested Visits Authorized [id number] Closed 05/20/2022 05/20/2023 1 1 Encounter Details Date Type Department Care Team Description 05/20/2022 Orders Only Department of Urology Nura David Malignant Neoplasm Of in Becky Batista IV, M.D. Bladder (HCC) (Primary [place] 200 [facility] Dx) 200 [place] [phone] Social History Tobacco Use Types Packs/Day Years [...] 05/17/2022 organizations such as mosque groups, unions, fraCarnegie Mellon University or athletic groups, or school groups? 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 [address] [place] [address] (Wo rk) documented as of this [...] nephrostomy tube was removed and a [address] aced. A glide head [...] nephrostomy tube was removed and a [address] aced. A glide head [...] Nura David IV, M.D. IMG IR PROCEDURES documented in this encounter Visit Diagnoses Diagnosis Malignant Neoplasm Of Bladder (HCC) - Pr imary Malignant Neoplasm Of Bladder (HCC) documented in this encounter Care Teams Laundry Marker Supervisor Relationship Specialty Start Date End Date Elsewhere, Pcp PCP - General Internal Medicine 01/14/22 documented as of this encounter
--- OUTSIDE RECORDS SUMMARY | 2022-08-29 08:57 | XMS_ITS | Encounter Summary ---
:1935 Author Organization [facility] Address [address] [place] [address] Care Team Providers Name Role Phone Elsewhere, Pcp Primary Care Provider Unavailable Encounter Details Date Type Department Care Team Description 04/16/2022 Hospital Encounter Department of Radiation Calin Anderson, [facility] [place] [facility] [place] [address] [place] [address] [phone] Social History Tobacco Use Types Packs/Day Years [...] you attend anabaptist or Patient refused 2021 hinduism services? 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 [address] [place] [address] (Wo rk) documented as of this encounter Visit Diagnoses Not on filedocumented in this encounter Care Teams Supervisory Historian Relationship Specialty Start Date End Date Elsewhere, Pcp PCP - General Internal Medicine 01/14/22 documented as of this encounter
--- OUTSIDE RECORDS SUMMARY | 2022-08-29 08:57 | XMS_ITS | Encounter Summary ---
:1935 Author Organization [facility] Address [address] [place] [address] Care Team Providers Name Role Phone Elsewhere, Pcp Primary Care Provider Unavailable Reason for Referral MRI/CAT/PET Scan (Routine) - Closed Specialty Diagnoses / Procedures Referred By Contact Refer red To Contact Radiology Diagnoses Hydronephrosis Armida Botello APRN, [facility] Procedures CT Urogram without and with IV Contrast C.N.P., D.N.P. 200 [place] [address] Referral ID Status Reason Start Date Expiration Date Visits Requ ested Visits Authorized [id number] Closed 05/17/2022 05/17/2023 1 1 utpatient (Routine) - Closed Specialty Diagnoses / Procedures Referred By Contact Refer red To Contact Diagnoses Hydronephrosis Malignant Neoplasm Of Bladder (HCC) Armida Botello APRN, [facility] Procedures URO Cystoscopy (general) C.N.P., D.N.P. 200 [place] [address] Referral ID Status Reason Start Date Expiration Date Visits Requ ested Visits Authorized [id number] Closed 05/17/2022 05/17/2023 1 1 utpatient (Routine) - Closed Specialty Diagnoses / Procedures Referred By Contact Refer red To Contact Urology Armida Botello APRN, C.N.PJluis, [facility] D.N.P. [address] [place] [phone] Referral ID Status Reason Start Date Expiration Date Visits Requ ested Visits Authorized [id number] Closed 05/17/2022 05/17/2023 1 1 utpatient (Routine) - Closed Specialty Diagnoses / Procedures Referred By Contact Refer red To Contact Diagnoses Hydronephrosis Malignant Neoplasm Of Bladder (HCC) Retention Urinary Armida Botello APRN, [facility] Procedures URO Urethral cath removal & voiding trial (UCO/VT) YolisNRichelle, D.N.P. [address] [place] [phone] Referral ID Status Reason Start Date Expiration Date Visits Requ ested Visits Authorized [id number] Closed 05/17/2022 05/17/2023 1 1 Reason for Visit Outpatient (Routine) - Closed Specialty Diagnoses / Procedures Referred By Contact Refer red To Contact Urology Manny Anderson M .D. Alamiri, Jamal M, M.B., [address] [place] [address] B.., [place] [address] [address] [place] [address] [place] [address] Phone: Fax: Referral ID Status Reason Start Date Expiration Date Visits Requ ested Visits Authorized [id number] Closed 04/16/2022 04/16/2023 1 1 Encounter Details Date Type Department Care Team Description 05/17/2022 Office Visit Department of Urology Bassam Klein Neoplasm Of Bladder (HCC) (Primary Dx); in [place], [place] Hydronephrosis; [place] [address] [facility] Retention Urinary; [address] [place], [place] Diabetes Mellitus Type 2 Wit h Other Diabetic Kidney Complication Hyperglycemic (HCC) [place] [phone] [phone] Social History Tobacco Use Types Packs/Day Years [...] you attend nondenominational or Patient refused 2021 sabianism services? 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 - 05/17/2022 11:00 AM CDT SUBJECTIVE REQUESTING PROVIDER Manny Anderson M.D. CHIEF COMPLAINT / REASON FOR VISIT Follow-up Patient seen on Dr. Klein's calendar HISTORY OF PRESENT ILLNESS Mr. Chery is a 86 y.o. male who presents today in follow-up. He presents in a wheelchair today accompanied by his and [id number]. This is a patient of the chief [...] uncomfortable for the patient and both his ckogjwzk-[id number] and report he was able to urinate [...] Waller M.D. [address] [place] [address] (Wo rk) Scheduled Orders Name Type Priority [...] / Laterality Volume Narrative Lo Sewell APRN C.N.PJluis, Lanny.N.P. - 06/03/2022 8:51 AM CDT Lo Sewell APRN, C.N.PJluis, Lanny.N.P. ? 06/04/2022 ??9:48 AM URO Cystoscopy (general) Date/Time: 06/03/2022 8:51 AM Performed by: Lo Sewell APRN, C .N.P., Lanny.N.P. Authorized by: Armida Botello D.N.PJluis , R.N. Care team members present 1. Lo Sewell APRN, C.N.PJluis, Lanny.N. P. 2. Aby Jackson, KrissyPJluisN. Additional procedures performed: cystosc opy ?? PROCEDURE DETAILS The patient was brought to the cystoscop y suite and placed in the lithotomy position. The patient was prep ped and draped in the standard fashion. ??A FLEXIBLE CYSTOSCOPE was ins erted through the urethra. 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 Unable to transverse cystosco pe related to notable discomfort. Given patient discomfort the procedure w as evacuated. Cystoscope was removed. ??He is currently performing in termittent catheterization with 14 Slovenian catheter. 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
--- OUTSIDE RECORDS SUMMARY | 2022-08-29 08:57 | XMS_ITS | Encounter Summary ---
:1935 Author Organization [facility] Address [address] [place] [address] Care Team Providers Name Role Phone Elsewhere, Pcp Primary Care Provider Unavailable Encounter Details Date Type Department Care Team Description 04/19/2022 Documentation Department of Radiation Manny Anderson, Oncology in [place] [address] [address] [facility] [address] [place] [phone] [phone] (Wo rk) Social History Tobacco Use Types [...] you attend gnosticism or Patient refused 2021 protestant services? 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 - 04/19/2022 11:59 PM CDT DIAGNOSIS: 1. Malignant Neoplasm Of Bladder (HCC) Attending Physician: Manny Anderson M.D. ([id number]) Treatment Intent: Curative Concomitant Therapy: None Single Plan Treatment Course: 1xBladder Plan ID Fractions Dose / Fraction (cGy) Dose Treated (cGy) Dose Planned (cGy) First Treatment Last Treatment Elapsed Days [id number] 600 3600 3600 04/02/2022 04/19/2022 17 Course [...] Renetta Koch R.N., 05/03/2022 2:46 PM CDT [facility] [address] [place] [address] documented in this encounter Plan of Treatment Upcoming Encounters Date Type Specialty Care Team Description 09/03/2022 Telemedicine Urology Albert Waller M.D. [address] [place] [address] (Wo rk) documented as of this encounter Visit Diagnoses Diagnosis Malignant Neoplasm Of Bladder (HCC) - Pr imary documented in this encounter Care Teams Data Support Analyst Relationship Specialty Start Date End Date Elsewhere, Pcp PCP - General Internal Medicine 01/14/22 documented as of this encounter
--- OUTSIDE RECORDS SUMMARY | 2022-08-29 08:57 | XMS_ITS | Encounter Summary ---
:1935 Author Organization [facility] Address [address] [place] [address] Care Team Providers Name Role Phone Elsewhere, Pcp Primary Care Provider Unavailable Reason for Referral Radiation Therapy (Routine) - Authorized Specialty Diagnoses / Procedures Referred By Contact Refer red To Contact Diagnoses Malignant Neoplasm Of Bladder (HCC) Manny Anderson M.D. [facility] Procedures Management Visit [address] [place], [place] [address] Referral ID Status Reason Start Date Expiration Date Visits V isits Requested Authorized [id number] Authorized 03/05/2022 03/05/2023 10 10 Reason for Visit Radiation Therapy (Routine) - Authorized Specialty Diagnoses / Procedures Referred By Contact Refer red To Contact Diagnoses Malignant Neoplasm Of Bladder (HCC) Manny Anderson M.D. [facility] Procedures Management Visit [address] [place], [place] [address] Referral ID Status Reason Start Date Expiration Date Visits V isits Requested Authorized [id number] Authorized 03/05/2022 03/05/2023 10 10 Encounter Details Date Type Department Care Team Description 04/09/2022 Hospital Encounter Department of Isidro Anderson M.D. [address] [place] [phone] Malignant Neoplasm Radiation Oncology Heladio Del Real M.D. [address] [place] [address] Of Bladder (HCC) in [place], [place] [address] [place] [address] Social History Tobacco Use Types [...] you attend zoroastrian or Patient refused 2021 jewish services? 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 Avoid touching your eyes, nose and mouth. Clean and disinfect household surfaces daily and high- touch surfaces frequently throughout the day. documented in this encounter Plan of Treatment Upcoming Encounters Date Type Specialty Care Team Description 09/03/2022 Telemedicine Urology Albert Waller M.D. [address] [place] [address] (Wo ) Scheduled Orders Name Type Priority Associated Diagnoses Order S chedule Management Visit Radiation Oncology Routine Malignant Neoplasm Once for 1 Of Bladder (HCC) Occurrences starting 04/09/2022 unti l 04/09/2022 documented as of this encounter Visit Diagnoses Diagnosis Malignant Neoplasm Of Bladder (HCC) documented in this encounter Care Teams Director Underwriter Sales Relationship Specialty Start Date End Date Elsewhere, Pcp PCP - General Internal Medicine 01/14/22 documented as of this encounter
--- OUTSIDE RECORDS SUMMARY | 2022-08-29 08:57 | XMS_ITS | Encounter Summary ---
:1935 Author Organization [facility] Address [address] [place] [address] Care Team Providers Name Role Phone Elsewhere, Pcp Primary Care Provider Unavailable Encounter Details Date Type Department Care Team Description 04/02/2022 Hospital Encounter Department of Radiation Calin Anderson, [facility] [place] [address] [place] [address] [phone] Social History Tobacco Use Types Packs/Day Years [...] you attend adventism or Patient refused 2021 scientologist services? 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 [address] [place] [address] (Wo rk) documented as of this encounter Visit Diagnoses Not on filedocumented in this encounter Care Teams Ammonium Nitrate Neutralizer Relationship Specialty Start Date End Date Elsewhere, Pcp PCP - General Internal Medicine 01/14/22 documented as of this encounter
--- OUTSIDE RECORDS SUMMARY | 2022-08-29 08:57 | XMS_ITS | Encounter Summary ---
:1935 Author Organization [facility] Address [address] [place] [address] Care Team Providers Name Role Phone Elsewhere, Pcp Primary Care Provider Unavailable Reason for Visit Reason Comments Neph Tube Question Encounter Details Date Type Department Care Team Description 05/09/2022 Clinical Communication Department of Bassam Knight ph Tube [facility] [address] [place], [place] [address] [place] [address] [place], [place] [phone] (Work) [phone] Social History Tobacco Use Types Packs/Day Years [...] you attend baptist or Patient refused 2021 quaker services? 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 Chery's neph tube bag. She says it's kind of white in color and stringy looking. She's not sure if that's normal or something to be concerned about. She says he doesn't have any signs of any infection. She can be reached at [phone]. Thanks! documented in this encounter Plan of Treatment Upcoming Encounters Date Type Specialty Care Team Description 09/03/2022 Telemedicine Urology Albert Waller M.D. [address] [place] [address] (Wo rk) documented as of this encounter Visit Diagnoses Not on filedocumented in this encounter Care Teams Cooler Service Supervisor Relationship Specialty Start Date End Date Elsewhere, Pcp PCP - General Internal Medicine 01/14/22 documented as of this encounter
--- OUTSIDE RECORDS SUMMARY | 2022-08-29 08:57 | XMS_ITS | Encounter Summary ---
:1935 Author Organization [facility] Address [address] [place] [address] Care Team Providers Name Role Phone Elsewhere, Pcp Primary Care Provider Unavailable Encounter Details Date Type Department Care Team Description 05/17/2022 Hospital Encounter Department of Armida Botello nephrosis; Laboratory Medicine L, ENROLLMENT SERVICES DEAN, Tavia t Neoplasm Of Bladder (HCC) and Pathology, [facility]., [facility] [address] [place] [address] [place] [address] [place], [place] [phone] (Work) [phone] Social History Tobacco Use Types Packs/Day Years [...] you attend protestant or Patient refused 2021 sikh services? 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 [address] [place], [place] [address] (Wo rk) documented as of this encounter Visit Diagnoses Diagnosis Hydronephrosis Malignant Neoplasm Of Bladder (HCC) documented in this encounter Care Teams Compliance Spec Relationship Specialty Start Date End Date Elsewhere, Pcp PCP - General Internal Medicine 01/14/22 documented as of this encounter
--- OUTSIDE RECORDS SUMMARY | 2022-08-29 08:57 | XMS_ITS | Encounter Summary ---
:1935 Author Organization [facility] Address [address] [place] [address] Care Team Providers Name Role Phone Elsewhere, Pcp Primary Care Provider Unavailable Reason for Referral Radiation Therapy (Routine) - Authorized Specialty Diagnoses / Procedures Referred By Contact Refer red To Contact Diagnoses Malignant Neoplasm Of Bladder (HCC) Manny Anderson M.D. [facility] Procedures Management Visit [address] [place], [place] [address] Referral ID Status Reason Start Date Expiration Date Visits V isits Requested Authorized [id number] Authorized 03/05/2022 03/05/2023 10 10 Reason for Visit Radiation Therapy (Routine) - Authorized Specialty Diagnoses / Procedures Referred By Contact Refer red To Contact Diagnoses Malignant Neoplasm Of Bladder (HCC) Manny Anderson M.D. [facility] Procedures Management Visit [address] [place] [address] Referral ID Status Reason Start Date Expiration Date Visits V isits Requested Authorized [id number] Authorized 03/05/2022 03/05/2023 10 10 Encounter Details Date Type Department Care Team Description 04/02/2022 Hospital Encounter Department of Manny Anderson Neoplasm Radiation Oncology [place] Of Bladder (HCC) in [place], [address] [place], [place] [address] [facility] [address] [place], [place] [phone] (Work) [phone] Social History Tobacco Use Types Packs/Day Years [...] you attend voodoo or Patient refused 2021 amish services? Do you belong to any clubs or No 05/17/2022 organizations such as voodoo groups, unions, fraBeatSwitch or athletic groups, or school groups? How [...] Date Recorded Male 09/10/2018 8:41 AM CLINICAL PHLEBOTOMIST documented as of this encounter Last Filed [...] Bladder (HCC) SUPERVISED BY: Manny Anderson M.D. ([id number]) HISTORY OF PRESENT ILLNESS Mr. Henok Chery is an 86 y.o. 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 He is now receiving twice weekly radiation therapy. Treatment Course: 1xBladder Plan ID Fractions Dose / Fraction (cGy) Dose Treated (cGy) Dose Planned (cGy) First Treatment Last Treatment Elapsed Days [id number] 592 596 2102 04/02/2022 04/02/2022 0 Course Summary 04/02/2022 04/02/2022 [...] Manny Anderson M.D. 04/02/2022 3:55 PM CDT [facility] Radiation Therapy Center [address] [place] [address] documented in this encounter Plan of Treatment Upcoming Encounters Date Type Specialty Care Team Description 09/03/2022 Telemedicine Urology Albert Waller M.D. [address] [place] [address] (Wo rk) Scheduled Orders Name Type Priority Associated Diagnoses Order S chedule Management Visit Radiation Oncology Routine Malignant Neoplasm Once for 1 Of Bladder (HCC) Occurrences starting 04/02/2022 unti l 04/02/2022 documented as of this encounter Visit Diagnoses Diagnosis Malignant Neoplasm Of Bladder (HCC) documented in this encounter Care Teams Can Line Operator Relationship Specialty Start Date End Date Elsewhere, Pcp PCP - General Internal Medicine 01/14/22 documented as of this encounter
--- OUTSIDE RECORDS SUMMARY | 2022-08-29 08:57 | XMS_ITS | Encounter Summary ---
:1935 Author Organization [facility] Address [address] [place] [address] Care Team Providers Name Role Phone Elsewhere, Pcp Primary Care Provider Unavailable Reason for Referral Outpatient (Routine) - Closed Specialty Diagnoses / Procedures Referred By Contact Refer red To Contact Radiology Diagnoses Malignant Neoplasm Of Bladder (HCC) Nura David IV, [facility] Procedures IR Nephrostomy Tube Exchange Left M.D. [address] [place], [place] [address] Referral ID Status Reason Start Date Expiration Date Visits Requ ested Visits Authorized [id number] Closed 02/22/2022 02/22/2023 1 1 Reason for Visit Outpatient (Routine) - Closed Specialty Diagnoses / Procedures Referred By Contact Refer red To Contact Radiology Diagnoses Malignant Neoplasm Of Bladder (HCC) Nura David IV [facility] Procedures IR Nephrostomy Tube Exchange Left M.D. 200 [place] [address] Referral ID Status Reason Start Date Expiration Date Visits Requ ested Visits Authorized [id number] Closed 02/22/2022 02/22/2023 1 1 Encounter Details Date Type Department Care Team Description 05/20/2022 Hospital Encounter Department of Fr diana David IV, M.D. [address] [place] [phone] Malignant Neoplasm Radiology in Bryon Wu M.D., Ph.D. [address] [place] [address] Of Bladder (HCC) [place], [place] [address] [place] [phone] Social History Tobacco Use Types Packs/Day Years [...] you attend synagogue or Patient refused 2021 yazdanism services? 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 ACETAMINOPHEN ORAL 1,300 mg 2 (two) 0 05/08/2022 times a day. nitroglycerin (NITROSTAT) Place 0.4 mg under 0 [...] Albert Waller M.D. [address] [place] [address] (Wo rk) documented as of this [...] 05/20/2022 5:48 PM CDT Routine exchange 10 [place] Citizen left percutaneous nephrostomy tube. Drain to gravity [...] lidoca ine used for local anesthesia. Fluoroscopic ict programmer image demonstrates unchanged position of the l eft 10 [place] Citizen percutaneous nephrostomy tube. Injection of contrast demonstrated a locking loop wit hin the markedly dilated left renal pelvis with high-grade narrowing at the left UPJ. Drain removed in its entirety over a guidewire and a new 10 [place] Citizen locking loop catheter advanced with lock ing [...] lidoca ine used for local anesthesia. Fluoroscopic ict programmer image demonstrates unchanged position of the l eft 10 [place] Citizen percutaneous nephrostomy tube. Injection of contrast demonstrated a locking loop wit hin the markedly dilated left renal pelvis with high-grade narrowing at the left UPJ. Drain removed in its entirety over a guidewire and a new 10 [place] Citizen locking loop catheter advanced with lock ing [...] blood loss: minimal.. IMPRESSION: Routine exchange 10 [place] Citizen left percutan eous nephrostomy tube. Drain to gravity bag drainage. Routine exchange in 10-12 week s. NR Ashtyn Buck IV IR PROCEDURES documented in this encounter Visit [...] mL/hr, Administer over 60 Minutes, Once, On 05/20/22 at 1145, For 1 dose, Preprocedure (RAD), [...] breaths/minute. documented in this encounter Care Teams Speech And Hearing Clinic Director Relationship Specialty Start Date End Date Elsewhere, Pcp PCP - General Internal Medicine 01/14/22 documented as of this encounter
--- OUTSIDE RECORDS SUMMARY | 2022-08-29 08:57 | XMS_ITS | Encounter Summary ---
:1935 Author Organization [facility] Address [address] [place] [address] Care Team Providers Name Role Phone Elsewhere, Pcp Primary Care Provider Unavailable Encounter Details Date Type Department Care Team Description 05/17/2022 Hospital Encounter Department of Armida Botello nephrosis; Laboratory Medicine L, GEOLOGICAL TECHNICIAN, Tavia t Neoplasm Of Bladder (HCC) and Pathology, [facility] [address] [place] [address] [place] [address] [place], [place] [phone] [address] (Work) [phone] Social History Tobacco Use Types Packs/Day Years [...] you attend pentecostalism or Patient refused 2021 zoroastrian services? 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 [address] [place] [address] (Wo rk) documented as of this encounter Procedures Procedure Name Priority Date/Time Associated Comments Diagnosis CREATININE WITH Routine 05/17/2022 3:02 PM Hydronephrosi s Results for this EGFR, S/P CDT Malignant Neoplasm procedure are in Of Bladder (HCC) the results section. documented in this encounter Results (ABNORMAL) Creatinine with Estimated GFR (05/17/2022 3:02 PM CDT) P athologist Signature Creatinine 1.30 0.74 - 05/17/2022 DTL 1.35 mg/dL 4:03 PM CDT eGFR-Non 50 (L) >=60 05/17/2022 DTL Black/ mL/min/BSA 4:03 PM CDT [place] Comment: ----ADDITIONAL INFORMATION---- Estimated GFR calculated using [...] Address City/State/ZIP Code Phon e Number [facility] - [address] [place], [place] [address] [facility] [place] [address] [facility] [address] documented in this encounter Visit Diagnoses Diagnosis Hydronephrosis Malignant Neoplasm Of Bladder (HCC) documented in this encounter Care Teams Track Patrol Relationship Specialty Start Date End Date Elsewhere, Pcp PCP - General Internal Medicine 01/14/22 documented as of this encounter
--- OUTSIDE RECORDS SUMMARY | 2022-08-29 08:57 | XMS_ITS | Encounter Summary ---
:1935 Author Organization [facility] Address [address] [place] [address] Care Team Providers Name Role Phone Elsewhere, Pcp Primary Care Provider Unavailable Encounter Details Date Type Department Care Team Description 05/02/2022 Clinical Communication Department of Heladio Meadows Radiology, Didier Layton R.N. [facility], in [address] [place] [address] [place] [address] [place], [place] [phone] (Work) [phone] Social History Tobacco Use Types Packs/Day Years [...] you attend christian or Patient refused 2021 mu-ism services? 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 - 05/02/2022 9:23 AM CDT We received a notification from [facility] appointment coordinators indicating that Mr. Chery has decided to cancel his scheduled suprapubic catheter placement. I called the [facility] appointment coordinators to verify this information. The procedure is canceled for now. documented in this encounter Plan of Treatment Upcoming Encounters Date Type Specialty Care Team Description 09/03/2022 Telemedicine Urology Albert Waller M.D. [address] [place] [address] (Wo rk) documented as of this encounter Visit Diagnoses Not on filedocumented in this encounter Care Teams Call Center Associate Relationship Specialty Start Date End Date Elsewhere, Pcp PCP - General Internal Medicine 01/14/22 documented as of this encounter
--- OUTSIDE RECORDS SUMMARY | 2022-08-29 08:57 | XMS_ITS | Encounter Summary ---
:1935 Author Organization [facility] Address [address] [place] [address] Care Team Providers Name Role Phone Elsewhere, Pcp Primary Care Provider Unavailable Reason for Referral Outpatient (Routine) - Authorized Specialty Diagnoses / Procedures Referred By Contact Refer red To Contact Nura David IV, M.D. [facility] 200 [place], [place] [phone] Referral ID Status Reason Start Date Expiration Date Visits V isits Requested Authorized [id number] Authorized 04/29/2022 04/29/2023 [address] Bassam Klein calendar Encounter Details Date Type Department Care Team Description 04/29/2022 Orders Only Department of Urology in [place] David is A [place], [place] Ashtyn COBIAN 200 [facility] 200 [place] [address] [place], [place] [phone] (Wo rk) Social History Tobacco Use Types [...] you attend christianity or Patient refused 2021 jewish services? Do you belong to any clubs or No 05/17/2022 organizations such as christianity groups, unions, [employer] or athletic groups, or school groups? 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 [address] [place] [phone] (Wo rk) Scheduled Referrals Name Type Priority Associated Diagnoses Order S chedule NonF2F phone Outpatient Referral Routine Expected : visit 04/29/2022 (Approximate), Expires: 2022 documented as of this encounter Visit Diagnoses Not on filedocumented in this encounter Care Teams Res Habilitation Assistant Relationship Specialty Start Date End Date Elsewhere, Pcp PCP - General Internal Medicine 01/14/22 documented as of this encounter
--- OUTSIDE RECORDS SUMMARY | 2022-08-29 08:57 | XMS_ITS | Encounter Summary ---
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 [address] [place] [address] (Wo rk) documented as of this encounter Visit Diagnoses Not on filedocumented in this encounter Care Teams Life Skills Educator Relationship Specialty Start Date End Date Elsewhere, Pcp PCP - General Internal Medicine 01/14/22 documented as of this encounter
--- OUTSIDE RECORDS SUMMARY | 2022-08-29 08:58 | XMS_ITS | Encounter Summary ---
:1935 Author Organization [facility] Address [address] [place] [address] Care Team Providers Name Role Phone Elsewhere, Pcp Primary Care Provider Unavailable Encounter Details Date Type Department Care Team Description 03/21/2022 Hospital Encounter Department of Adrian David Urinary; Laboratory Medicine Mirlande Arias IV Neoplasm Of Bladder (HCC) and Pathology, Ashtyn [facility], in [address] [place] [address] [address] [place] [phone] [place], [place] (Work) [phone] Social History Tobacco Use [...] you attend evangelical or Patient refused 2021 hinduism services? 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
--- OUTSIDE RECORDS SUMMARY | 2022-08-29 08:58 | XMS_ITS | Encounter Summary ---
:1935 Author Organization [facility] Address [address] [place] [address] Care Team Providers Name Role Phone Elsewhere, Pcp Primary Care Provider Unavailable Encounter Details Date Type Department Care Team Description 03/26/2022 Clinical Communication Department of Radiology Harmony Starks in [facility] lonny A, RJluisN. [address] [place] [address] [address] [place] [phone] Social History Tobacco Use Types Packs/Day Years [...] you attend lutheran or Patient refused 2021 taoism services? 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 Sethi to schedule Mr. Chery for Suprapubic catheter placement. I have Mr. Chery scheduled to undergo Suprapubic catheter placement at [facility] with Dr. Poe on 04/02/2022. The patient is scheduled to report to [facility], [facility] Anthony Art MD the morning of the procedure. ??? Patient is not on blood thinners. ??? Patient is diabetic. ??? Villarreal catheter and left nephrostomy tube currently in place. ??? COVID 19 PCR testing to be completed on: 04/01/2022. ??? Urology nurse education scheduled on 04/01/2022. ??? DESIGN INTERN needed for procedure. This procedure is scheduled [...] rescheduled to undergo Suprapubic catheter placement at [facility] with Dr. Wu on 05/07/2022. The patient is scheduled to report to [facility], [facility] Anthony Art MD at 9:00 a.m. the morning of the procedure. ??? COVID 19 PCR testing to be completed on: 05/03/2022. ??? DESIGN INTERN needed for procedure. documented in this encounter Plan of Treatment Upcoming Encounters Date Type Specialty Care Team Description 09/03/2022 Telemedicine Urology Albert Waller M.D. [address] [place], [place] [address] (Wo rk) documented as of this encounter Visit Diagnoses Not on filedocumented in this encounter Care Teams Bull Chain Operator Relationship Specialty Start Date End Date Elsewhere, Pcp PCP - General Internal Medicine 01/14/22 documented as of this encounter
--- OUTSIDE RECORDS SUMMARY | 2022-08-29 08:58 | XMS_ITS | Encounter Summary ---
:1935 Author Organization [facility] Address [address] [place] [address] Care Team Providers Name Role Phone Elsewhere, Pcp Primary Care Provider Unavailable Encounter Details Date Type Department Care Team Description 03/27/2022 Clinical Communication Department of Urology Lisbeth Nguyen in [facility] [phone] [address] [facility] (Work) [place] [address] Social History Tobacco Use Types Packs/Day Years [...] you attend sikh or Patient refused 2021 hindu services? 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 [address] [place] [address] (Wo rk) documented as of this encounter Visit Diagnoses Not on filedocumented in this encounter Care Teams Camp Manager Relationship Specialty Start Date End Date Elsewhere, Pcp PCP - General Internal Medicine 01/14/22 documented as of this encounter
--- OUTSIDE RECORDS SUMMARY | 2022-08-29 08:58 | XMS_ITS | Encounter Summary ---
:1935 Author Organization [facility] Address [address] [place] [address] Care Team Providers Name Role Phone Elsewhere, Pcp Primary Care Provider Unavailable Reason for Referral Radiation Therapy (Routine) - Closed Specialty Diagnoses / Procedures Referred By Contact Refer red To Contact Diagnoses Malignant Neoplasm Of Bladder (HCC) Manny Anderson M.D. [facility] Procedures Initial Rad Onc Treatment Planning CT Simulation Initial Rad Onc Treatment Planning CT Simulation 200 [place] [address] Referral ID Status Reason Start Date Expiration Date Visits Requ ested Visits Authorized [id number] Closed 03/05/2022 03/05/2023 1 1 Outpatient (Routine) - Authorized Specialty Diagnoses / Procedures Referred By Contact Refer red To Contact Social Work Manny Anderson M .D. [facility] Region 200 [place] [address] Referral ID Status Reason Start Date Expiration Date Visits V isits Requested Authorized [id number] Authorized 03/05/2022 03/05/2023 6 6 Outpatient (Routine) - Authorized Specialty Diagnoses / Procedures Referred By Contact Refer red To Contact Radiation Oncology Manny Anderson M .D. [facility] Region [address] [place] [address] Referral ID Status Reason Start Date Expiration Date Visits V isits Requested Authorized [id number] Authorized 03/05/2022 03/05/2023 10 10 Radiation Therapy (Routine) - Authorized Specialty Diagnoses / Procedures Referred By Contact Refer red To Contact Diagnoses Malignant Neoplasm Of Bladder (HCC) Manny Anderson M.D. [facility] Procedures Management Visit [address] [place], [place] [address] Referral ID Status Reason Start Date Expiration Date Visits V isits Requested Authorized [id number] Authorized 03/05/2022 03/05/2023 10 10 Radiation Therapy (Routine) - Authorized Specialty Diagnoses / Procedures Referred By Contact Refer red To Contact Diagnoses Malignant Neoplasm Of Bladder (HCC) Manny Anderson M.D. [facility] Procedures Prior Auth Rad Tx [address] [place], [place] [address] Referral ID Status Reason Start Date Expiration Date Visits V isits Requested Authorized [id number] Authorized 03/05/2022 03/05/2023 1 1 Encounter Details Date Type Department Care Team Description 03/05/2022 Orders Only Department of Manny Anderson N eoplasm Of Radiation Oncology in Asht[place] Bladder (HCC) (Primary [place] [address] [facility]) [address] [place] [phone] Social History Tobacco Use Types Packs/Day Years [...] attend latter day or Patient refused 2021 sabianist services? Do you belong to any clubs or No 05/17/2022 organizations such as latter day groups, unions, [employer] or athletic groups, or school groups? 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 [address] [place] [address] (Wo rk) Scheduled Orders Name Type [...] Organization Address City/State/ZIP Code Phon e Number [facility] na documented in this encounter Visit Diagnoses Diagnosis Malignant Neoplasm Of Bladder (HCC) - Pr imary Malignant Neoplasm Of Bladder (HCC) documented in this encounter Care Teams Wait Staff Relationship Specialty Start Date End Date Elsewhere, Pcp PCP - General Internal Medicine 01/14/22 documented as of this encounter
--- OUTSIDE RECORDS SUMMARY | 2022-08-29 08:58 | XMS_ITS | Encounter Summary ---
:1935 Author Organization [facility] Address [address] [place] [address] Care Team Providers Name Role Phone Elsewhere, Pcp Primary Care Provider Unavailable Encounter Details Date Type Department Care Team Description 03/21/2022 Hospital Encounter Department of Adrain David Urinary; Laboratory Medicine Mirlande Arias IV Neoplasm Of Bladder (HCC) and PathologyAshtyn [address] [place] [address], in [facility] [address] [place] [phone] [place] [address] (Work) [place], [place] [phone] [address] (Fax) [phone] Social History Tobacco Use Types Packs/Day Years [...] you attend caodaism or Patient refused 2021 jainism services? 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 [address] [place], [place] [address] (Wo rk) documented as of this encounter Procedures Procedure Name Priority Date/Time Associated Comments Diagnosis MI OSMOLALITY ASSAY Routine 03/21/2022 12:08 Resu lts [...] (ABNORMAL) Dipstick, Urine (03/21/2022 12:08 PM CDT) [facility] gist Method Time Signature Hemoglobin, [...] [facility] - [address] [place], [place] [address] [facility] [place] [address] [facility] [address] Osmolality, Urine (03/21/2022 12:08 PM CDT) athologist Signature Osmolality, U 429 150 - 1150 03/21/2022 DT mOsm/kg 12:38 PM CDT Specimen Anatomical Collection Method Collection Time Receive d Time (Source) Location / / Volume Laterality Urine 03/21/2022 12:08 03/21/2022 PM CDT 12:08 PM CDT Nura David IV, M.D. LAB URINE ORDERABLES Performing Organization Address City/[facility] Phon e Number [facility] - [address] [place] [address] pH, Random, Urine (03/21/2022 12:08 PM CDT) athologist Signature pH, Random, U 6.7 4.5 - 8.0 03/21/2022 DTL 12:38 PM CDT Specimen Anatomical Collection Method Collection Time Receive d Time (Source) Location / / Volume Laterality Urine 03/21/2022 12:08 03/21/2022 PM CDT 12:08 PM CDT Nura David IV, M.D. LAB URINE ORDERABLES Performing Organization Address City/[facility] Phon e Number [facility] - [address] (ABNORMAL) Microscopic Manual (03/21/2022 12:08 PM CDT) Analysis Performed At Path logist Time Signature Microscopy Abnormal 03/21/2022 DTL [...] M.D. LAB URINE ORDERABLES Performing Organization Address City/[facility]/ZIP Code Phon e Number [facility] [address] [place] [address] (ABNORMAL) Urinalysis with Microscopic: Urine, Midstream (03/21/2022 12:08 PM CDT) [facility] Method Time Signature Source Urine, Urine, [...] DTL Hr Protein 2:20 PM CDT Predicted 2706-15622 mg/24 h 03/21/2022 DTL Range 2:20 PM CDT Specimen Anatomical Collection Method Collection Time Receive d Time (Source) Location / / Volume Laterality Urine (Urine, 03/21/2022 12:08 03/21/2022 Midstream) PM CDT 12:08 PM CDT Nura David IV, M.D. LAB URINE ORDERABLES Performing Organization Address City/[facility] [[email or web address]] Code Phon e Number 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
--- OUTSIDE RECORDS SUMMARY | 2022-08-29 08:58 | XMS_ITS | Encounter Summary ---
:1935 Author Organization [facility] Address [address] [place] [address] Care Team Providers Name Role Phone Elsewhere, Pcp Primary Care Provider Unavailable Encounter Details Date Type Department Care Team Description 03/08/2022 Clinical Communication Department of Harrison Lennon, Radiation Oncology in [place], M.S. [facility] [address] [place] [address] [address] [place] [address] [phone] Social History Tobacco Use Types Packs/Day Years [...] you attend anabaptism or Patient refused 2021 holiness services? 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 [address] [place] [address] (Wo rk) documented as of this encounter Visit Diagnoses Not on filedocumented in this encounter Care Teams Advisory Internship Relationship Specialty Start Date End Date Elsewhere, Pcp PCP - General Internal Medicine 01/14/22 documented as of this encounter
--- OUTSIDE RECORDS SUMMARY | 2022-08-29 08:58 | XMS_ITS | Encounter Summary ---
:1935 Author Organization [facility] Address [address] [place] [address] Care Team Providers Name Role Phone Elsewhere, Pcp Primary Care Provider Unavailable Reason for Visit Outpatient (Routine) - Canceled Specialty Diagnoses / Procedures Referred By Contact Refer red To Contact Radiology Diagnoses Retention Urinary Chronic Kimberly Sethi M.D., [facility] Procedures IR Genitourinary Procedure Ph.D. 200 [place] [address] Referral ID Status Reason Start Date Expiration Date Visits V isits Requested Authorized [id number] Canceled 03/25/2022 03/25/2023 1 1 Encounter Details Date Type Department Care Team Description 04/02/2022 Hospital Encounter Department of Kimberly Sethi M.D., Ph.D. Canceled (Patient: Radiology in Shoaib Poe M.D. [address] [place] [phone] Request) [place], [place] [address] [place] [phone] Social History Tobacco Use Types Packs/Day Years [...] you attend restorationist or Patient refused 2021 denominational services? 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 [address] [place] [address] (Wo rk) documented as of this encounter Visit Diagnoses Not on filedocumented in this encounter Care Teams Glass Scullion Relationship Specialty Start Date End Date Elsewhere, Pcp PCP - General Internal Medicine 01/14/22 documented as of this encounter
--- OUTSIDE RECORDS SUMMARY | 2022-08-29 08:58 | XMS_ITS | Encounter Summary ---
:1935 Author Organization [facility] Address [address] [place] [address] Care Team Providers Name Role Phone Elsewhere, Pcp Primary Care Provider Unavailable Reason for Referral Outpatient (Routine) - Closed Specialty Diagnoses / Procedures Referred By Contact Refer red To Contact Diagnoses Benign Prostatic Hyperplasia Hypertrophy With Obstruction Flakita Bradshaw M.D. Procedures URO Urodynamic study (with flow) [address] [place] [phone] Referral ID Status Reason Start Date Expiration Date Visits Requ ested Visits Authorized [id number] Closed 03/21/2022 03/21/2023 1 1 Reason for Visit Outpatient (Routine) - Closed Specialty Diagnoses / Procedures Referred By Contact Refer red To Contact Urology Diagnoses Retention Urinary Nura David IV [facility] Ashtyn 200 [place] [address] Referral ID Status Reason Start Date Expiration Date Visits Requ ested Visits Authorized [id number] Closed 02/27/2022 02/27/2023 1 1 Encounter Details Date Type Department Care Team Description 03/21/2022 Comprehensive Visit Department of Bassam Klein gn Prostatic Hyperplasia Hypertrophy With Obstruction (Primary Dx); Urology in S, M.D. Retention Urinary [place], 200 [place], [place] 200 [facility] [address] [place], [place] [phone] (Work) [phone] Social History Tobacco Use Types Packs/Day Years [...] you attend jain or Patient refused 2021 caodaism services? 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 - 03/21/2022 1:30 PM CDT I have personally reviewed the past medical history, pertinent review of systems, family history, surgical history and physical exam. I have discussed the case with my clinical team and I agree with the plan and action as outlined by my team. AT Flakita rBadshaw M.D. - 03/21/2022 1:30 PM CDT SUBJECTIVE REFERRAL SOURCE The patient is being seen in consultation at the request of Nura David IV, M.D. [address] [place] [address] CHIEF COMPLAINT Urinary retention Supervised by Dr. Klein HISTORY OF PRESENT ILLNESS Mr. Chery is a pleasant 86 y.o. male who presents today for evaluation of urinary retention. He is accompanied today by his and [id number]. For further details regarding his bladder cancer [...] urinary incontinence. He currently has a [address] He denied any significant [...] Date/Time Bacterial Culture, Aerobic + Susc, Urine [[id number]] Collected: 02/27/22 1120 Lab Status: Final result Specimen: Urine, Indwelling Catheter Updated: 02/28/22 08 Urine Culture No growth after 1 day of incubation. SARS Coronavirus 2, PCR Rapid, V [[id number]] Collected: 02/20/22 1939 Lab Status: Final result [...] at the following links: For Healthcare Providers: https://www.fda.gov/media/437135/download For Patients: https://www.Waggl.gov/media/388408/download SARS Coronavirus 2, Source, Rapid Swab, Nasopharynx [...] per Echocardiography Contrast Administration Protocol Reference Document [id number]. Patient met an inclusion criterion and did [...] meet Mr. Chery, his , and his [id number] in clinic today for further discussion of [...] M.D. [address] [place] [address] (Wo rk) documented as of this [...] Obstruction documented in this encounter Care Teams Livestock Agent Relationship Specialty Start Date End Date Elsewhere, Pcp PCP - General Internal Medicine 01/14/22 documented as of this encounter
--- OUTSIDE RECORDS SUMMARY | 2022-08-29 08:58 | XMS_ITS | Encounter Summary ---
:1935 Author Organization [facility] Address [address] [place] [address] Care Team Providers Name Role Phone Elsewhere, Pcp Primary Care Provider Unavailable Reason for Visit Outpatient (Routine) - Closed Specialty Diagnoses / Procedures Referred By Contact Refer red To Contact Diagnoses Benign Prostatic Hyperplasia Hypertrophy With Obstruction Flakita Bradshaw M.D. Procedures URO Urodynamic study (with flow) [address] [place] [phone] Referral ID Status Reason Start Date Expiration Date Visits Requ ested Visits Authorized [id number] Closed 03/21/2022 03/21/2023 1 1 Encounter Details Date Type Department Care Team Description 03/22/2022 Procedure visit Department of Flakita Bradshaw M.D. 200 [place] [address] Benign Prostatic Urology in Bassam Klein M.D. [address] [place] [phone] Hyperplasia [place], [place] Kush Dumont [address] [place] [phone] Hypertrophy With [address] [facility] [place] [phone] Social History Tobacco Use Types Packs/Day Years [...] you attend gnosticism or Patient refused 2021 orthodox services? Do you belong to any clubs or No 05/17/2022 organizations such as gnosticism groups, unions, [email or web address] or athletic groups, or school groups? 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 Flow study prior to procedure: No Amount of urine drained from bladder prior to study: 12 mls Catheter: 6 Turkmen Position: Sitting Fill rate: 25 ml/min EMG [...] 09/03/2022 Telemedicine Urology Albert Waller M.D. [address] [place] [phone] (Wo rk) documented as of this [...] Obstruction documented in this encounter Care Teams Support Team Member Relationship Specialty Start Date End Date Elsewhere, Pcp PCP - General Internal Medicine 01/14/22 documented as of this encounter
--- OUTSIDE RECORDS SUMMARY | 2022-08-29 08:58 | XMS_ITS | Encounter Summary ---
:1935 Author Organization [facility] Address [address] [place] [address] Care Team Providers Name Role Phone Elsewhere, Pcp Primary Care Provider Unavailable Encounter Details Date Type Department Care Team Description 03/26/2022 Orders Only Department of Urology in Kimberly Sethi M .D., [place], [place] Ph.D. [address] [place] [address] Social History Tobacco Use Types Packs/Day [...] you attend jain or Patient refused 2021 religion services? 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 [address] [place] [address] (Wo rk) documented as of this encounter Visit Diagnoses Not on filedocumented in this encounter Care Teams Skip Loader Relationship Specialty Start Date End Date Elsewhere, Pcp PCP - General Internal Medicine 01/14/22 documented as of this encounter
--- OUTSIDE RECORDS SUMMARY | 2022-08-29 08:58 | XMS_ITS | Encounter Summary ---
:[address] [facility] Address [address] [place] [address] Care Team Providers Name Role Phone Elsewhere, Pcp Primary Care Provider Unavailable Encounter Details Date Type Department Care Team Description 03/22/2022 Clinical Communication Department of Urology Flakita Bradshaw in Sherly Batista M.D. [address] 200 [place] [phone] Social History Tobacco Use Types Packs/Day Years [...] you attend buddhist or Patient refused 2021 baptist services? 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 COMMUNITY ADVOCATE documented as of this encounter Miscellaneous Notes [...] Albert Waller M.D. [address] [place] [address] (Wo ) documented as of this encounter Visit Diagnoses Not on filedocumented in this encounter Care Teams Church Worker Relationship Specialty Start Date End Date Elsewhere, Pcp PCP - General Internal Medicine 01/14/22 documented as of this encounter
--- OUTSIDE RECORDS SUMMARY | 2022-08-29 08:58 | XMS_ITS | Encounter Summary ---
:1935 Author Organization [facility] Address [address] [place] [address] Care Team Providers Name Role Phone Elsewhere, Pcp Primary Care Provider Unavailable Reason for Referral Radiation Therapy (Routine) - Closed Specialty Diagnoses / Procedures Referred By Contact Refer red To Contact Diagnoses Malignant Neoplasm Of Bladder (HCC) Manny Adnerson M.D. [facility] Region Procedures Initial Rad Onc Treatment Planning CT Simulation Initial Rad Onc Treatment Planning CT Simulation [address] [place], [place] [address] Referral ID Status Reason Start Date Expiration Date Visits Requ ested Visits Authorized [id number] Closed 03/05/2022 03/05/2023 1 1 Reason for Visit Radiation Therapy (Routine) - Closed Specialty Diagnoses / Procedures Referred By Contact Refer red To Contact Diagnoses Malignant Neoplasm Of Bladder (HCC) Manny Anderson M.D. [facility] Region Procedures Initial Rad Onc Treatment Planning CT Simulation Initial Rad Onc Treatment Planning CT Simulation [address] [place] [address] Referral ID Status Reason Start Date Expiration Date Visits Requ ested Visits Authorized [id number] Closed 03/05/2022 03/05/2023 1 1 Encounter Details Date Type Department Care Team Description 03/26/2022 Hospital Encounter Department of Manny Anderson Neoplasm Radiation Oncology L, M.D. Of Bladder (HCC) in [place], [facility] [address] [place], [place] 18[address] [facility] [address] [place], [place] [phone] (Work) [phone] Social History Tobacco Use Types Packs/Day Years [...] you attend denominational or Patient refused 2021 confucianist services? 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 CT images were transferred to the [employer] (TTN) treatment planning system, after a reference isocenter was determined and marked. Segmentation and treatment planning will take place priorto treatment delivery. Patient set up and imaging was appropriate and completed without incident. Sausage Smoker use:No documented in this encounter Plan of Treatment Upcoming Encounters Date Type Specialty Care Team Description 09/03/2022 Telemedicine Urology Albert Waller M.D. [address] [place] [address] (Wo rk) documented as of this [...] Time Received Time / Laterality Volume Narrative [facility] - 03/26/2022 3:27 PM CDT Manasa Willett, RTT ? 03/26/2022 ??3:29 PM Initial Rad Onc Treatment Planning CT Si mulation Date/Time: 03/26/2022 3:27 PM Performed by: Manny Anderson M.D. Authorized by: Manny Anderson M.D. Manny Anderson M.D. RADIATION ONCOLOGY ORDERABLE S Performing Organization Address City/State/ZIP Code Phon e Number [facility] na documented in this encounter Visit Diagnoses Diagnosis Malignant Neoplasm Of Bladder (HCC) documented in this encounter Care Teams Lock Operator Relationship Specialty Start Date End Date Elsewhere, Pcp PCP - General Internal Medicine 01/14/22 documented as of this encounter
--- OUTSIDE RECORDS SUMMARY | 2022-08-29 08:58 | XMS_ITS | Encounter Summary ---
:1935 Author Organization [facility] Address [address] [place] [address] Care Team Providers Name Role Phone Elsewhere, Pcp Primary Care Provider Unavailable Reason for Visit Reason Comments Appointment Pre-visit Testing Orders Encounter Details Date Type Department Care Team Description 03/26/2022 Clinical Communication Department of Adonay Sethi; Urology in [place] Harris, Pre-visit Test aidee Batista, Ph.D. Orders [place] [address] [place] [address] Social History Tobacco Use Types Packs/Day Years [...] you attend advent or Patient refused 2021 amish services? 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 Lucille states they cannot do that all . Lucille would like a call to discuss what is happening @ [phone]. Thank you. documented in this encounter Plan of Treatment Upcoming Encounters Date Type Specialty Care Team Description 09/03/2022 Telemedicine Urology Albert Waller M.D. [address] [place] [phone] (Wo ) documented as of this encounter Visit Diagnoses Not on filedocumented in this encounter Care Teams Rural Mail Carrier Relationship Specialty Start Date End Date Elsewhere, Pcp PCP - General Internal Medicine 01/14/22 documented as of this encounter
--- OUTSIDE RECORDS SUMMARY | 2022-08-29 08:58 | XMS_ITS | Encounter Summary ---
:1935 Author Organization [facility] Address [address] [place] [address] Care Team Providers Name Role Phone Elsewhere, Pcp Primary Care Provider Unavailable Reason for Visit Reason Comments Treatment Questions Encounter Details Date Type Department Care Team Description 03/12/2022 Clinical Communication Department of Kar Whipple Urology in , Ashtyn Perdomo [place], [place] [address] [place] [address] Social History Tobacco Use Types Packs/Day Years [...] you attend christian or Patient refused 2021 confucianism services? 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 - 03/12/2022 2:[address] Rosen is unfortunately completely booked as he is preparing for senior care. Another OPC provider may be available sooner [...] procedure soon. Please contact them back at [phone] to discuss the plan with them. Thanks! documented in this encounter Plan of Treatment Upcoming Encounters Date Type Specialty Care Team Description 09/03/2022 Telemedicine Urology Albert Waller M.D. [address] [place] [phone] (Wo rk) documented as of this encounter Visit Diagnoses Not on filedocumented in this encounter Care Teams Product Test Specialist Relationship Specialty Start Date End Date Elsewhere, Pcp PCP - General Internal Medicine 01/14/22 documented as of this encounter
--- OUTSIDE RECORDS SUMMARY | 2022-08-29 08:58 | XMS_ITS | Encounter Summary ---
:1935 Author Organization [facility] Address [address] [place] [address] Care Team Providers Name Role Phone Elsewhere, Pcp Primary Care Provider Unavailable Encounter Details Date Type Department Care Team Description 03/27/2022 Clinical Communication Department of Harrison Lennon, Radiation Oncology in [place], M.S. [facility] [address] [place] [address] 1821 [place] [phone] [phone] Social History Tobacco Use Types Packs/Day Years [...] you attend yazidi or Patient refused 2021 hoahaoism services? 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 I informed her that we will keep the appointments as outlined above but can change them if they desire. Harrison Lennon M.D., M.S. documented in this encounter Plan of Treatment Upcoming Encounters Date Type Specialty Care Team Description 09/03/2022 Telemedicine Urology Albert Waller M.D. [address] [place] [phone] (Wo rk) documented as of this encounter Visit Diagnoses Not on filedocumented in this encounter Care Teams Pediatric Orthodontist Relationship Specialty Start Date End Date Elsewhere, Pcp PCP - General Internal Medicine 01/14/22 documented as of this encounter
--- OUTSIDE RECORDS SUMMARY | 2022-08-29 08:58 | XMS_ITS | Encounter Summary ---
:1935 Author Organization [facility] Address [address] [place] [address] Care Team Providers Name Role Phone Elsewhere, Pcp Primary Care Provider Unavailable Encounter Details Date Type Department Care Team Description 03/24/2022 Orders Only Department of Urology Kimberly Sethi Rete ntion Urinary in [facility] lonny Chamorro, Ph.D. Chronic (Primary Dx) [address] [place] [address] Social History Tobacco Use Types Packs/Day Years [...] you attend catholic or Patient refused 2021 scientology services? 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 [address] [place] [address] (Wo rk) documented as of this encounter Visit Diagnoses Diagnosis Retention Urinary Chronic - Primary documented in this encounter Care Teams Guard Rail Installer Relationship Specialty Start Date End Date Elsewhere, Pcp PCP - General Internal Medicine 01/14/22 documented as of this encounter
--- OUTSIDE RECORDS SUMMARY | 2022-08-29 08:58 | XMS_ITS | Encounter Summary ---
:1935 Author Organization [facility] Address [address] [place] [address] Care Team Providers Name Role Phone Elsewhere, Pcp Primary Care Provider Unavailable Reason for Referral Outpatient (Routine) - Closed Specialty Diagnoses / Procedures Referred By Contact Refer red To Contact Radiation Oncology Iris Mishra P.A.-C., [facility] [address] [place] [phone] Referral ID Status Reason Start Date Expiration Date Visits Requ ested Visits Authorized [id number] Closed 03/25/2022 03/25/2023 1 1 Reason for Visit Outpatient (Routine) - Closed Specialty Diagnoses / Procedures Referred By Contact Refer red To Contact Radiation Oncology Iris Mishra P.A.-C., [facility] [address] [place] [phone] Referral ID Status Reason Start Date Expiration Date Visits Requ ested Visits Authorized [id number] Closed 03/25/2022 03/25/2023 1 1 Encounter Details Date Type Department Care Team Description 03/26/2022 Hospital Encounter Department of Manny Anderson Neoplasm Radiation Oncology [place] Of Bladder (HCC) in [place] [address] [facility] (Primary Dx) [place], [place] [address] [facility] [address] [place], [place] [phone] (Work) [phone] Social History Tobacco Use Types Packs/Day Years [...] you attend mormon or Patient refused 2021 moravian services? 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 PSYCHOLOGIST ENGINEERING documented as of this encounter Last Filed [...] PM CDT RADIATION ONCOLOGY FOLLOW-UP VISIT Supervising Mold Yarn Supervisor: Dr. Manny Anderson Home address: [address] [place] [phone] SUBJECTIVE History of present illness Mr. Henok [...] 01/24/2022 Other The patient presented to the [facility] ED with a chief complaint of [...] retrogrades. Patient will need to see his sheet turner for surgical clearance, he is a poor candidate for surgery. 02/08/2022 Other Urology consultation at [facility] with Dr. David Day who recommended proceeding [...] or concerns. Dr. Manny Anderson is the quality compliance consultant; please see attestation for further details. [...] Manny Anderson M.D. 03/26/2022 4:46 PM CDT [facility] [address] [place] [phone] documented in this encounter Plan of Treatment Upcoming Encounters Date Type Specialty Care Team Description 09/03/2022 Telemedicine Urology Albert Waller M.D. [address] [place] [address] (Wo rk) Scheduled Referrals Name Type Priority Associated Order Schedule Diagnoses Radiation Oncology Outpatient Referral Routine On ce for 1 office visit Occurrences sta rting (clinic) 03/26/2022 unti l 03/26/2022 documented as of this encounter Visit Diagnoses Diagnosis Malignant Neoplasm Of Bladder (HCC) - Pr imary documented in this encounter Care Teams Cheese Factory Worker Relationship Specialty Start Date End Date Elsewhere, Pcp PCP - General Internal Medicine 01/14/22 documented as of this encounter
--- OUTSIDE RECORDS SUMMARY | 2022-08-29 08:58 | XMS_ITS | Encounter Summary ---
:1935 Author Organization [facility] Address [address] [place] [address] Care Team Providers Name Role Phone Elsewhere, Pcp Primary Care Provider Unavailable Encounter Details Date Type Department Care Team Description 03/26/2022 Orders Only Department of Harmony Story N eoplasm Of Bladder (HCC) (Primary Dx); Radiology in A, R.N. Negative COVID-19 Test (Contact With And (Suspected) Exposure To COVID-19); [place], [place] [address] [facility] Encounter For Preprocedural Laboratory E xamination (COVID-19) [address] [place] [address] [phone] Social History Tobacco Use Types Packs/Day Years [...] you attend rastafarian or Patient refused 2021 mu-ism services? 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 PHARMACOEPIDEMIOLOGIST documented as of this encounter Plan of Treatment Upcoming Encounters Date Type Specialty Care Team Description 09/03/2022 Telemedicine Urology Albert Waller M.D. [address] [place] [address] (Wo rk) documented as of this encounter Visit Diagnoses Diagnosis Malignant Neoplasm Of Bladder (HCC) - Pr imary Negative COVID-19 Test (Contact With And (Suspected) Exposure To COVID-19) Encounter For Preprocedural Laboratory E xamination (COVID-19) documented in this encounter Care Teams Faculty Member Relationship Specialty Start Date End Date Elsewhere, Pcp PCP - General Internal Medicine 01/14/22 documented as of this encounter
--- OUTSIDE RECORDS SUMMARY | 2022-08-29 08:58 | XMS_ITS | Encounter Summary ---
:1935 Author Organization [facility] Address [address] [place] [address] Care Team Providers Name Role Phone Elsewhere, Pcp Primary Care Provider Unavailable Reason for Referral Outpatient (Routine) - Closed Specialty Diagnoses / Procedures Referred By Contact Refer red To Contact Radiation Oncology Diagnoses Malignant Neoplasm Of Bladder (HCC) Cori Reece M.D. [address] [address] Referral ID Status Reason Start Date Expiration Date Visits Requ ested Visits Authorized [id number] Closed 02/26/2022 02/26/2023 1 1 Reason for Visit Outpatient (Routine) - Closed Specialty Diagnoses / Procedures Referred By Contact Refer red To Contact Radiation Oncology Diagnoses Malignant Neoplasm Of Bladder (HCC) Cori Reece M.D. [address] [address] Referral ID Status Reason Start Date Expiration Date Visits Requ ested Visits Authorized [id number] Closed 02/26/2022 02/26/2023 1 1 Encounter Details Date Type Department Care Team Description 03/06/2022 Hospital Encounter Department of Manny Anderson Radiation Oncology Ashtyn Dubois Of Bladder (HCC) in [address] (Primary Dx) [place], [place] [address] [facility] [address] [place], [place] [phone] (Work) [phone] Social History Tobacco Use Types Packs/Day Years [...] you attend orthodoxy or Patient refused 2021 restoration services? Do you belong to any clubs or No 05/17/2022 organizations such as orthodoxy groups, unions, fraEferio or athletic groups, or school groups? 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 Manny Anderson Referring Provider: Cori Reece M.D. Primary Care Provider: Dr. Yamila English Home address: [address] [place] [phone] SUBJECTIVE History of present illness Mr. Henok [...] 01/24/2022 Other The patient presented to the [facility] ED with a chief complaint [...] was performed by Dr. Kurtis Bach at [facility] and demonstrated a large medial lobe of the prostate, 3 cm, with papillary bladder mass, 5 cm, the left bladder wall obstructing the left UO. The patient reported a history of gross hematuria for months and difficulty emptying his bladder. Discussed that the patient ideally would need TURBT and bilateral retrogrades. Patient will need to see his bevel polisher for surgical clearance, he is a poor candidate for surgery. 02/08/2022 Other Urology consultation at [facility] with Dr. David Day who recommended proceeding [...] urethral catheter and nephrostomy tube. Referral to [facility] provider. 03/12/2022 - Radiation Therapy Radiation Therapy Treatment Details (Noted on 03/05/2022) Site: Bladder Technique: No technique specified Goal: Curative Planned Treatment Start Date: 03/12/2022 In the clinic today, Mr. Henok Chery defers most questions and responses to his and [id number]-[id number]. He reports feeling fine but when prompted [...] as medically taking preference, but the patient's [id number] wished to hear from urology as to [...] or concerns. Dr. Manny Anderson is the data management consultant; please see attestation for further details. [...] here today with his Miesha and his [id number] Patricia. He has a Villarreal catheter in [...] Manny Anderson M.D. 03/06/2022 11:36 PM CDT [facility] [address] [place] [address] documented in this encounter Miscellaneous Notes Addendum Note - Vicki Hector, C.N.A. - 03/06/2022 9:00 AM CDT Encounter addended by: Vicki Hector C.N.A. on: 03/07/2022 7:09 AM Actions taken: Letter saved documented in this encounter Plan of Treatment Upcoming Encounters Date Type Specialty Care Team Description 09/03/2022 Telemedicine Urology Albert Waller M.D. [address] [place] [address] (Wo rk) Scheduled Referrals Name Type Priority Associated Order Schedule Diagnoses Radiation Oncology Outpatient Referral Routine Malignant Neopl asm Once for 1 - Palliative / Of Bladder (HCC) Occurrenc es metastatic consult starting 03/06/2022 (clinic) until 2 documented as of this encounter Visit Diagnoses Diagnosis Malignant Neoplasm Of Bladder (HCC) - Pr imary documented in this encounter Care Teams Building Superintendent Relationship Specialty Start Date End Date Elsewhere, Pcp PCP - General Internal Medicine 01/14/22 documented as of this encounter
--- OUTSIDE RECORDS SUMMARY | 2022-08-29 08:58 | XMS_ITS | Encounter Summary ---
:1935 Author Organization [facility] Address [address] [place] [address] Care Team Providers Name Role Phone Elsewhere, Pcp Primary Care Provider Unavailable Reason for Visit Reason Comments Procedure Encounter Details Date Type Department Care Team Description 03/27/2022 Clinical Communication Department of Manny Anderson [facility] [address] [facility] [address] [place] [phone] [phone] Social History Tobacco Use Types Packs/Day Years [...] you attend cheondoism or Patient refused 2021 mormon services? Do [...] Date Recorded Male 09/10/2018 8:41 AM RN INTAKE documented as of this encounter Miscellaneous Notes [...] Albert Waller M.D. [address] [place] [address] (Wo rk) documented as of this encounter Visit Diagnoses Diagnosis Malignant Neoplasm Of Bladder (HCC) - Pr imary documented in this encounter Care Teams Patient Safety Manager Relationship Specialty Start Date End Date Elsewhere, Pcp PCP - General Internal Medicine 01/14/22 documented as of this encounter
--- OUTSIDE RECORDS SUMMARY | 2022-08-29 08:58 | XMS_ITS | Encounter Summary ---
:1935 Author Organization [facility] Address [address] [place] [address] Care Team Providers Name Role Phone Elsewhere, Pcp Primary Care Provider Unavailable Encounter Details Date Type Department Care Team Description 03/24/2022 Clinical Communication Department of Urology Hector Sethi, in [facility] lonny Chamorro, Ph.D. [address] [place] [address] Social History Tobacco Use Types Packs/Day Years [...] you attend samaritan or Patient refused 2021 restoration services? 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 - 03/24/2022 8:33 AM CDT Images from the original note were not included. Flakita Bradshaw M.D. P Rst Uro Chief You had referred patient for [...] M.D. [address] [place] [address] (Wo rk) documented as of this encounter Visit Diagnoses Not on filedocumented in this encounter Care Teams Piping Manager Relationship Specialty Start Date End Date Elsewhere, Pcp PCP - General Internal Medicine 01/14/22 documented as of this encounter
--- OUTSIDE RECORDS SUMMARY | 2022-08-29 08:58 | XMS_ITS | Encounter Summary ---
:1935 Author Organization [facility] Address [address] [place] [address] Care Team Providers Name Role Phone Elsewhere, Pcp Primary Care Provider Unavailable Encounter Details Date Type Department Care Team Description 03/22/2022 Clinical Communication Department of Urology Flakita Bradshaw in Sherly Batista M.D. 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 [address] [place] [address] (Wo rk) documented as of this encounter Visit Diagnoses Not on filedocumented in this encounter Care Teams Interior Decorator Relationship Specialty Start Date End Date Elsewhere, Pcp PCP - General Internal Medicine 01/14/22 documented as of this encounter
--- OUTSIDE RECORDS SUMMARY | 2022-08-29 08:58 | XMS_ITS | Encounter Summary ---
:1935 Author Organization [facility] Address [address] [place] [address] Care Team Providers Name Role Phone Elsewhere, Pcp Primary Care Provider Unavailable Reason for Referral Outpatient (Routine) - Closed Specialty Diagnoses / Procedures Referred By Contact Refer red To Contact Radiation Oncology Iris Mishra P.A.-C., [facility] [address] [place] [phone] Referral ID Status Reason Start Date Expiration Date Visits Requ ested Visits Authorized [id number] Closed 03/25/2022 03/25/2023 1 1 Encounter Details Date Type Department Care Team Description 03/25/2022 Orders Only Department of Radiation Iris Mishra [facility] Neoplasm Of Oncology in [place], Eduardo, M.S. Bladder (HCC) (Primary [place] [address] [facility] [address] [place] [phone] Social History Tobacco Use Types Packs/Day Years [...] you attend evangelical or Patient refused 2021 jainism services? Do you belong to any clubs or No 05/17/2022 organizations such as evangelical groups, unions, fraHobobe or athletic groups, or school groups? 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 [address] [place] [address] (Wo rk) Scheduled Referrals Name Type Priority Associated Diagnoses Order S chedule Radiation Oncology Outpatient Referral Routine Ex pected: office visit 03/26/2022 (clinic) (Approximate), Expires: 03/25/2023 documented as of this encounter Visit Diagnoses Diagnosis Malignant Neoplasm Of Bladder (HCC) - Pr imary documented in this encounter Care Teams Water Systems Designer Relationship Specialty Start Date End Date Elsewhere, Pcp PCP - General Internal Medicine 01/14/22 documented as of this encounter
--- OUTSIDE RECORDS SUMMARY | 2022-08-29 08:58 | XMS_ITS | Encounter Summary ---
:1935 Author Organization [facility] Address [address] [place] [address] Care Team Providers Name Role Phone Elsewhere, Pcp Primary Care Provider Unavailable Encounter Details Date Type Department Care Team Description 03/25/2022 Orders Only Department of Urology Kimberly Sethi Rete ntion Urinary in [facility] lonny Chamorro, Ph.D. Chronic (Primary Dx) [address] [place] [phone] Social History Tobacco Use Types Packs/Day Years [...] you attend sabianism or Patient refused 2021 temple services? 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 ON AIR DIRECTOR documented as of this encounter Plan of Treatment Upcoming Encounters Date Type Specialty Care Team Description 09/03/2022 Telemedicine Urology Albert Waller M.D. [address] [place] [address] (Wo rk) documented as of this encounter Visit Diagnoses Diagnosis Retention Urinary Chronic - Primary documented in this encounter Care Teams Clinical Practitioner Relationship Specialty Start Date End Date Elsewhere, Pcp PCP - General Internal Medicine 01/14/22 documented as of this encounter
--- OUTSIDE RECORDS SUMMARY | 2022-08-29 08:59 | XMS_ITS | Encounter Summary ---
:1935 Author Organization [facility] Address [address] [place] [address] Care Team Providers Name Role Phone Elsewhere, Pcp Primary Care Provider Unavailable Reason for Referral Outpatient (Routine) - Closed Specialty Diagnoses / Procedures Referred By Contact Refer red To Contact Radiology Diagnoses Hydronephrosis David Day M.B., [facility] Procedures IR Nephrostomy Tube Placement Left B.Ch., B.A.O. [address] [place], [place] [phone] Referral ID Status Reason Start Date Expiration Date Visits Requ ested Visits Authorized [id number] Closed 02/12/2022 02/12/2023 1 1 Reason for Visit Outpatient (Routine) - Closed Specialty Diagnoses / Procedures Referred By Contact Refer red To Contact Radiology Diagnoses Hydronephrosis David Day M.B., [facility] Procedures IR Nephrostomy Tube Placement Left B.Ch., B.A.O. [address] [place], [place] [phone] Referral ID Status Reason Start Date Expiration Date Visits Requ ested Visits Authorized [id number] Closed 02/12/2022 02/12/2023 1 1 Encounter Details Date Type Department Care Team Description 02/18/2022 Hospital Encounter Department of [place] Day M.B., B.Ch., B.A.O. [address] [place] [phone] Hydronephrosis Radiology in Dannielle Gonsalves M.D. [address] [place] [phone] [place], [place] Saeid Stanton M.D. 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 Dannielle Gonsalves ([id number]) ASSISTANTS Dr. Stanton ([id number]) COMPLICATIONS None. DRAINS Left nephrostomy tube 10F [...] Albert Waller M.D. [address] [place] [address] (Wo ) documented as of [...] 3. Exchange in 12 weeks. EP David Sevilla B.Ch., B.A.O. IMG IR PROCEDURES Fungal Culture, Routine (02/18/2022 10:42 AM CDT) [facility] Method Time Signature Fungal No growth [...] Organization Address City/State/ZIP Code Phon e Number [facility] - [address] [place], [place] [address] [place] [address] [facility] 200 [facility] Bacterial Culture, Anaerobic + Susc (02/18/2022 10:42 AM CDT) [facility] [place] Method Time Signature Bacterial No growth 03/04/2022 DTL Culture, after 14 11:37 AM CDT Anaerobic + days of Susc incubation. Specimen Anatomical Collection Method Collection Time Receive d Time (Source) Location / / Volume Laterality Fluid (Kidney, 02/18/2022 10:42 2 Left) AM CDT 12:34 PM CDT Comment: Specimen Source Site: Fluid David Sevilla B.Ch., B.A.O. LAB MICROBIOLOGY - GENERAL ORDERABLES Performing Organization Address City/[facility]/ZIP Code Phon e Number [facility] - [address] [place], [place] [address] [place] [address] [facility] [address] [facility] Gram Stain (02/18/2022 10:42 AM CDT) [facility] Method Time Signature Gram Stain No organisms 02/18/2022 DTL seen. 2:40 PM CDT Specimen Anatomical Collection Method Collection Time Receive d Time (Source) Location / / Volume Laterality Fluid (Kidney, 02/18/2022 10:42 2 Left) AM CDT 12:34 PM CDT Comment: Specimen Source Site: Fluid David Sevilla, CrowCh., B.A.O. LAB MICROBIOLOGY - GENERAL ORDERABLES Performing Organization Address City/[facility]/ZIP Code Phon e Number [facility] - [address] [place], [place] [address] [place], [place] [id number] [place] [address] 200 [facility] Bacterial Culture, Aerobic + Susc (02/18/2022 10:42 AM CDT) [facility] [place] Method Time Signature Bacterial No growth 02/23/2022 DTL Culture, after 5 8:30 AM CDT Aerobic + Susc days of incubation. Specimen Anatomical Collection Method Collection Time Receive d Time (Source) Location / / Volume Laterality Fluid (Kidney, 02/18/2022 10:42 2 Left) AM CDT 12:34 PM CDT Comment: Specimen Source Site: Fluid David Heredia Barb Sevilla, Vera., B.A.O. LAB MICROBIOLOGY - GENERAL ORDERABLES Performing Organization Address City/State/ZIP Code Phon e Number [facility] - [address] [place], [place] [address] [facility] [place] [address] [facility] [address] documented in this encounter [...] (RAD) documented in this encounter Care Teams Hoop Rolls Operator Relationship Specialty Start Date End Date Elsewhere, Pcp PCP - General Internal Medicine 01/14/22 documented as of this encounter
--- OUTSIDE RECORDS SUMMARY | 2022-08-29 08:59 | XMS_ITS | Encounter Summary ---
:1935 Author Organization [facility] Address [address] [place] [address] Care Team Providers Name Role Phone Elsewhere, Pcp Primary Care Provider Unavailable Encounter Details Date Type Department Care Team Description 02/22/2022 Orders Only Department of Urology Chasidy Lakhani Neoplasm Of in [place], [facility] lonny Perdomo M.D. Bladder (HCC) (Primary [address] Dx) [place] [address] Social History Tobacco Use Types [...] or relatives? How often do you attend taoist or Patient refused 2021 rastafarian services? Do you belong to any clubs or No 05/17/2022 organizations such as taoist groups, unions, fraternal or athletic groups, or [...] at Date Recorded Male 09/10/2018 8:41 AM SAWMILL TALLY CLERK documented as of this encounter Plan of Treatment Upcoming Encounters Date Type Specialty Care Team Description 09/03/2022 Telemedicine Urology Albert Waller M.D. [address] [place] [address] (Wo rk) documented as of this encounter Visit Diagnoses Diagnosis Malignant Neoplasm Of Bladder (HCC) - Pr imary documented in this encounter Care Teams Community Health Navigator Relationship Specialty Start Date End Date Elsewhere, Pcp PCP - General Internal Medicine 01/14/22 documented as of this encounter
--- OUTSIDE RECORDS SUMMARY | 2022-08-29 08:59 | XMS_ITS | Encounter Summary ---
:1935 Author Organization [facility] Address [address] [place] [address] Care Team Providers Name Role Phone Elsewhere, Pcp Primary Care Provider Unavailable Reason for Visit Reason Comments Urinary Retention UCO/VT Outpatient (Routine) - Closed Specialty Diagnoses / Procedures Referred By Contact Refer red To Contact Diagnoses Retention Urinary Cori Reece M.D. [facility] Procedures URO Urethral cath removal & voiding trial (UCO/VT) [address] [place] [phone] Referral ID Status Reason Start Date Expiration Date Visits Requ ested Visits Authorized [id number] Closed 02/22/2022 02/22/2023 1 1 Encounter Details Date Type Department Care Team Description 02/27/2022 Procedure visit Department of Urology Bao Reece M.D. [address] [place] [phone] Retention Urinary in [facility] Manasa Justice, RJluisNJluis [address] [place] [phone] [place] [phone] Social History Tobacco Use Types Packs/Day Years [...] you attend episcopalian or Patient refused 2021 zoroastrianism services? Do you belong to any clubs or No 05/17/2022 organizations such as episcopalian groups, unions, fraMissingLINK or athletic groups, or school groups? 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 [address] [place] [address] (Wo rk) documented as of this [...] (ABNORMAL) Dipstick, Urine (02/27/2022 11:20 AM CDT) [facility] Method Time Signature Hemoglobin, Large (A) Negative [...] City/State/ZIP Code Phon e Number [facility] - [address] [place], [place] [address] [place] [address] [facility] [address] pH, Urine (02/27/2022 11:20 AM CDT) P athologist Signature pH, U 5.7 4.5 - 8.0 02/27/2022 12:07 DTL PM CDT Specimen Anatomical Collection Method Collection Time Receive d Time (Source) Location / / Volume Laterality Urine 02/27/2022 11:20 02/27/2022 AM CDT 11:29 AM CDT Conor Lakhani M.D. LAB URINE ORDERABLES Performing Organization Address City/State/ZIP Code Phon e Number [facility] - [address] [place], [place] [address] [place] [address] [facility] [address] Osmolality, Urine (02/27/2022 11:20 AM CDT) P athologist Signature Osmolality, U 288 [address] 02/27/2022 DTL mOsm/kg 12:07 PM CDT Specimen Anatomical Collection Method Collection Time Receive d Time (Source) Location / / Volume Laterality Urine 02/27/2022 11:20 02/27/2022 AM CDT 11:29 AM CDT Conor Lakhani M.D. LAB URINE ORDERABLES Performing Organization Address City/State/ZIP Code Phon e Number [facility] - [address] [place], [place] [address] [place] [address] [facility] [address] (ABNORMAL) Microscopic Automated (02/27/2022 11:20 AM CDT) [facility] Method Time Signature Microscopy Abnormal 02/27/2022 DTL [...] M.D. LAB URINE ORDERABLES Performing Organization Address [facility] Phon e Number [facility] - [address] [place] [address] Laboratories-[place] [address] [address] [facility] Bacterial Culture, Aerobic + Susc, Urine (02/27/2022 11:20 AM CDT) [facility] Method Time Signature Urine Culture No growth 02/28/2022 DT after 1 day 8:02 AM CDT of incubation. Specimen (Source) Anatomical Collection Method Collection Time Re ceived Time Location / / Volume Laterality Urine (Urine, 02/27/2022 11:20 02/27/2022 Indwelling AM CDT 12:10 PM CDT Catheter) Comment: Specimen Source Site: Urine Conor Lakhani M.D. LAB MICROBIOLOGY - GENERAL O RDERABLES Performing Organization Address City/[facility] Phon e Number [facility] - [address] [place], [place] [address] [place] [address]-[place] [address] Urinalysis with Microscopic: Urine, Catheter (02/27/2022 11:20 AM CDT) [facility] Method Time Signature Source Urine, Urine, 02/27/2022 [...] City/State/ZIP Code Phon e Number [facility] - [address] [place], [place] [address] [place] [address] [facility] [address] documented in this encounter Visit Diagnoses Diagnosis Retention Urinary documented in this encounter Care Teams Field Machinist Relationship Specialty Start Date End Date Elsewhere, Pcp PCP - General Internal Medicine 01/14/22 documented as of this encounter
--- OUTSIDE RECORDS SUMMARY | 2022-08-29 08:59 | XMS_ITS | Encounter Summary ---
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 Internal/external: URO surg, [place], [id number] ?? Goal or summary: Schedule in CV ?? Requested date: February ?? Additional comments: Please Review documented in this encounter Plan of Treatment Upcoming Encounters Date Type Specialty Care Team Description 09/03/2022 Telemedicine Urology Albert Waller M.D. [address] [place] [address] (Wo rk) documented as of this encounter Visit Diagnoses Not on filedocumented in this encounter Additional Health Concerns Infection Onset Date Last Indicated Resolved Time COVID19 Pending 02/15/2022 02/15/2022 02/15/2022 10:28 PM CDT COVID19 Pending 02/20/2022 02/20/2022 02/20/2022 8:04 PM CDT documented as of this encounter Care Teams Shaker Tender Relationship Specialty Start Date End Date Elsewhere, Pcp PCP - General Internal Medicine 01/14/22 documented as of this encounter
--- OUTSIDE RECORDS SUMMARY | 2022-08-29 08:59 | XMS_ITS | Encounter Summary ---
:1935 Author Organization [facility] Address [address] [place] [address] Care Team Providers Name Role Phone Elsewhere, Pcp Primary Care Provider Unavailable Reason for Referral Outpatient (Routine) - Closed Specialty Diagnoses / Procedures Referred By Contact Refer red To Contact Radiation Oncology Diagnoses Malignant Neoplasm Of Bladder (HCC) Cori Reece M.D. [facility] [address] [place] [phone] Referral ID Status Reason Start Date Expiration Date Visits Requ ested Visits Authorized [id number] Closed 02/26/2022 02/26/2023 1 1 Encounter Details Date Type Department Care Team Description 02/26/2022 Orders Only Department of Urology Cori Reece, Annamaria guzman Urinary (Primary Dx); in [place] Batista Malignant Neoplasm Of Bladder (HCC) [address] [place] [phone] Social History Tobacco Use Types Packs/Day Years [...] you attend temple or Patient refused 2021 restoration services? Do you belong to any clubs or No 05/17/2022 organizations such as temple groups, unions, [employer] or athletic groups, or school groups? How [...] at Date Recorded Male 09/10/2018 8:41 AM BISQUE GRADER documented as of this encounter Plan of Treatment Upcoming Encounters Date Type Specialty Care Team Description 09/03/2022 Telemedicine Urology Albert Waller M.D. 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
--- OUTSIDE RECORDS SUMMARY | 2022-08-29 08:59 | XMS_ITS | Encounter Summary ---
:1935 Author Organization [facility] Address [address] [place] [address] Care Team Providers Name Role Phone Elsewhere, Pcp Primary Care Provider Unavailable Reason for Referral Medication Prior Authorization - Denied Specialty Diagnoses / Procedures Referred By Contact Refer red To Contact Nura David IV, M.D. [address] [place] [address] Referral ID Status Reason Start Date Expiration Date Visits Requ ested Visits Authorized [id number] Denied 1 1 Outpatient (Routine) - Closed Specialty Diagnoses / Procedures Referred By Contact Refer red To Contact Diagnoses Retention Urinary Cori Reece M.D. [facility] Procedures URO Urethral cath removal & voiding trial (UCO/VT) [address] [place] [address] Referral ID Status Reason Start Date Expiration Date Visits Requ ested Visits Authorized [id number] Closed 02/22/2022 02/22/2023 1 1 utpatient (Routine) - Closed Specialty Diagnoses / Procedures Referred By Contact Refer red To Contact Urology Cori Reece M.D . [facility] [address] [place] [address] Referral ID Status Reason Start Date Expiration Date Visits Requ ested Visits Authorized [id number] Closed 02/22/2022 02/22/2023 1 1 Scheduling Instructions [facility] Reason for Visit MRI/CAT/PET Scan (Routine) - Closed Specialty Diagnoses / Procedures Referred By Contact Refer red To Contact Radiology Diagnoses Mass Bladder David Day M.B., [facility] Procedures CT Abdomen and/or Pelvis Biopsy CT Biopsy Other B.Ch., B.A.O. [address] [place] [phone] Referral ID Status Reason Start Date Expiration Date Visits Requ ested Visits Authorized [id number] Closed 02/12/2022 02/12/2023 1 1 Encounter Details Date Type Department Care Team Description 02/18/2022 - Hospital Encounter [facility] Richmond Day M.B., B.Ch., B.A.O. 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 [address] [place] [phone] Mass Bladder; [facility], Sixth Floor [address] [place] [id number] Social History Tobacco Use Types Packs/Day Years [...] you attend advent or Patient refused 2021 confucianism services? 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 Primary [...] hospital problems. * DISCHARGE DISPOSITION [facility] [6] ACTIVE ISSUES REQUIRING FOLLOW UP - [facility] outpatient clinic visit on Tuesday [...] related to the procedure, please contact the [facility] diesel truck crane operator ([phone]) and ask to be connected to the non-vascular interventional radiology fellow publications sales representative AttachmentsThe following attachments cannot be sent through Care Everywhere. Sulfamethoxazole (By mouth) (Grenadian)Trospium (By mouth) (Grenadian)documented in this encounter Medications at Time of [...] for TURBT Please page Chief Urology at [phone] from 7 AM - 5 PM or at [phone] after hours with any questions/concerns. Cori Reece M.D. documented in this encounter Consult Notes Braden Gan M.D. - 02/21/2022 4:57 PM CDTAssociated Order(s): IP CONSULT TO CARDIOLOGY CARDIOLOGY CONSULT NOTE DEMOGRAPHIC INFORMATION Patient Name: Henok Chery Birthdate: 1935 Age: 86 y.o. Sex: male Address: [address] [place] [phone] CHIEF COMPLAINT/PURPOSE OF VISIT - Pre-operative evaluation [...] staffed with Dr. Louis. Please page the [facility] consult service in case of questions or concerns. Braden Gan M.D. 02/21/22 Damaris Gooden RJluisN. - 02/21/2022 1:03 PM CDT Discharge Planning Assessment SUBJECTIVE Assessment Information Referral Source: wellness nurse rn Referral Reason: Discharge Planning Primary Language: Grenadian Business Performance Advisor Services Used: No Person(s) present during interview: Person(s) Present During Interview: patient and Spouse - Yvette Milton- Ralph History of Present Illness #1 Malignant Neoplasm Of Bladder (HCC) Social History Marital Status: Finance/Insurance Primary insurance: MEDICARE A AND B Secondary insurance: [facility] Does the patient have any financial concerns? no benefits: No Advance Directives Advance Directives: N/A Advance Directives Status: N/A OBJECTIVE Baseline Functional Status Baseline Activities of Daily Living Dressing: Independent Feeding: Independent Bathing: Needs assistance Grooming: Independent Toileting: Independent Behavior: Appropriate Communication: Talks, Understands speaking, Understands Grenadian Shopping: Needs assistance Transportation: Support from family Medication Management: Needs assistance Housekeeping: Needs assistance Meal Prep: Needs assistance Managing Finances: Needs assistance Assistive Devices: Walker - four wheeled, Scooter Services/Resources: Home health Agency Name: [facility] Home Healthcare Services Provided: halfway, PT Baseline Services/Resources Primary care clinic and provider: ELSEWHERE, PCP Services/Resources: Home health Additional Resources: NA Anticipated Needs Functional Status: None Assistive Devices: Walker - four wheeled, Oxygen, Scooter, Tub/shower chair/bench Services/Resources: Home health Agency Name: [facility] Home Healthcare Services Provided: halfway, PT Transportation Needs: Support from family Does the patient need discharge transport arranged?: No Anticipated Discharge Destination: [facility]Health [facility] ASSESSMENT / PLAN Plan Assessment: The wellness nurse rn met with Henok Chery to discuss his current hospitalization and home going needs. The patient was accompanied by , Miesha. The patient's was a reliable historian. The role of wellness nurse rn was reviewed. The patient's reviewed his prior level of care and support system. The patient receives support from his and children. The patient's described his living environment as a home with bedroom and bathroom on same floor with level entry. Housekeeping, grocery shopping, meal prep, and other household responsibilities have previously been completed by patient's . wellness nurse rn discussed the patient's potential needs at dismissal [...] live together in a one-story home in [place], [place]. Patient'swife states patient utilizes a walker for longer distances but is able to mobilize independently within the home. Patient's states patient was receiving home healthcare prior to this hospital admission for PT once per week and halfway once per week. Patient's states patient is [...] Homecare and home oxygen is provided by [employer]. The patient's reports understanding that he will [...] dismissal will be provided by family--. 3. wellness nurse rn recommended reaching out to family, friends, and neighbors for assistance. 4. wellness nurse rn provided information regarding the dismissal process. 5. wellness nurse rn placed or requested the following hospital-based consult orders and/or referrals:None. 6. wellness nurse rn will continue to assess for homegoing needs with the interdisciplinary team. 7. wellness nurse rn encouraged the patient to reach out with any questions/concerns. Patient to discharge with home health care. Home Medical Care - Admitted Since 02/18/2022 Service Provider Selected Services Address Phone Fax Patient Preferred [facility] Home Health - [facility] [address] [facility] [id number] -- Contact: Intake NURSING: - Complete documentation in the Discharge Navigator including Nursing Report Info and Facility/NextLevel of Care Info - Call report and arrange for the patient???s first visit. - Send required packet of dismissal information with patient, including After Visit Summary and advance directive. PRIMARY SERVICE: - Please provide a non-[place] home health order for resumption of previous [...] Selected Services Address Phone Fax Patient Preferred [facility] [address] [phone] -- Contact: Intake Respiratory [...] RN, ENAN, MAGDALENAS, CCS, CRC Clinical Documentation Journeyman Pressman Query created by: LAURA Iniguez, RN, CPN, [...] medicine question arises through his hospital course [phone]. Judy Schumacher MD MS Internal Medicine, PGY3 General Internal Medicine Consults [phone] Hospital Course - Nura David IV, M.D. [...] Waller M.D. [address] [place] [phone] (Wo rk) Pending Results Name Type Priority [...] / Volume Laterality Blood 02/22/2022 4:35 PM 2 4:37 CDT PM CDT Unknown Provider LAB POCT ORDERABLES-MANUAL Performing Organization Address City/State/ZIP Code Phon e Number POC [facility] [address] [place] [address] [place] [address] [place] [facility] [address] (ABNORMAL) Glucose, POCT [...] Provider LAB POCT ORDERABLES-MANUAL Performing Organization Address City/[facility] Phon e Number POC [facility] [address] [place] [address] [place] [address] [place] [facility] [address] [facility] Glucose, POCT (02/22/2022 7:17 AM CDT) Analysis [...] Provider LAB POCT ORDERABLES-MANUAL Performing Organization Address City/[facility]/ZIP Code Phon e Number POC [facility] [address] [place] [address] [place] [address] [facility] 200 [facility] (ABNORMAL) CBC without Differential (02/22/2022 3:59 AM [...] Address City/State/ZIP Code Phon e Number [facility] - [address] [place] [address] [facility] [place] [address] Laboratories-[address] (ABNORMAL) Basic Metabolic Panel (02/22/2022 3:59 AM [...] 02/22/2022 DTL Black/ mL/min/BSA 5:02 AM CDT [place] Comment: ----ADDITIONAL INFORMATION---- Estimated GFR calculated using [...] Address City/State/ZIP Code Phon e Number [facility] - [address] [place], [place] [address] [facility] [place] [address] Laboratories-[facility] [address] Glucose, POCT (02/21/2022 9:39 [...] / Volume Laterality Blood 02/21/2022 9:39 PM 05/05/202 2 9:44 CDT PM CDT Unknown Provider LAB POCT ORDERABLES-MANUAL Performing Organization Address [facility]/ZIP [facility] Phon e Number [facility] [address] [place] [address] [place], [place] [address] [place] [address] 200 [facility] (ABNORMAL) Hemoglobin (02/21/2022 6:21 PM CDT) P athologist Signature Hemoglobin 8.0 (L) 13.2 - 16.6 02/21/2022 DTL g/dL 6:38 PM CDT Specimen Anatomical Collection Method Collection Time Receive d Time (Source) Location / / Volume Laterality Blood (Blood, 02/21/2022 6:21 PM 02/22/20 6:32 Venous) CDT PM CDT Cori Reece M.D. LAB BLOOD ADD-ON Performing Organization Address [facility] Phon e Number [facility] - [address] [place], [place] [address] [facility] [place], [place] [address] [place] [address]-[facility] 200 [facility] (ABNORMAL) Glucose, POCT (02/21/2022 5:09 PM CDT) [...] Provider LAB POCT ORDERABLES-MANUAL Performing Organization Address [facility]/ZIP [facility] Phon e Number POC [facility] [address] [place] [address] [place] [address] [place] Urinary Bladder (02/21/2022 2:35 PM CDT) [...] PROCEDURES (ABNORMAL) Hemoglobin (02/21/2022 12:08 PM CDT) athologist Signature Hemoglobin 8.0 (L) 13.2 - 16.6 02/21/2022 DTL g/dL 12:54 PM CDT Specimen Anatomical Collection Method Collection Time Receive d Time (Source) Location / / Volume Laterality Blood (Blood, 02/21/2022 12:08 02/21/2022 Venous) PM CDT 12:45 PM CDT Cori Reece M.D. LAB BLOOD ADD-ON Performing Organization Address City/State/ZIP Code Phon e Number [facility] - [address] [place], [place] [address] [facility] [place] [address] [facility] [address] (ABNORMAL) Glucose, POCT (02/21/2022 11:38 AM CDT) [...] Address City/State/ZIP Code Phon e Number POC [facility] [address] [place] [address] [facility] [place] [address] [place] [facility] [address] (TTE) 2D ECHO DOPPLER COLOR AND CONTRAST (02/21/2022 10:59 AM CDT) [facility] Method Time Signature Ejection Fraction 25 MC [...] per Echocardiography Contrast Administration Protocol Reference Document [id number]. Patient met an inclusion criterion and did [...] per Echocardiography Contrast Administration Protocol Reference Document [id number]. Patient met an inclusion criterion and did [...] (02/21/2022 8:58 AM CDT) Analysis Performed At Patho logist Time Signature Glucose, POCT, 119 70 - [...] Address City/State/ZIP Code Phon e Number POC [facility] [address] [place] [address] [facility] [place] [address] [place] [facility] 200 [facility] (ABNORMAL) Basic Metabolic Panel (02/21/2022 3:46 AM [...] 02/21/2022 DTL Black/ mL/min/BSA 5:14 AM CDT [place] Comment: ----ADDITIONAL INFORMATION---- Estimated GFR calculated using [...] Address City/State/ZIP Code Phon e Number [facility] - [address] [place], [place] [address] [facility] [place] [address] [facility] 200 [facility] (ABNORMAL) CBC without Differential (02/21/2022 3:46 AM CDT) [facility] [employer] Method Time Signature Hemoglobin 7.1 (L) 13.2 [...] Laterality Blood (Blood, 02/21/2022 3:46 AM 02/22/20 22 4:40 Venous) CDT AM CDT Nura David IV, M.D. LAB BLOOD ADD-ON Performing Organization Address City/State/ZIP Code Phon e Number [facility] - [address] [place], [place] [address] [facility] [place] [address] [facility] 200 [facility] SARS Coronavirus 2, PCR Rapid, V (02/20/2022 7:39 PM CDT) [facility] [facility] Method Time Signature SARS CoV-2, Undetected Undetected 02/20/2022 [facility] PCR, Rapid, V 8:04 PM CDT Comment: ----ADDITIONAL INFORMATION---- This RT-PCR test was performed using the Simran SARS-CoV-2 and Influenza A/B Reagent assay from [employer], which has received Emergency Use Authori zation(EUA) by the U.S. Food and Drug Administration . Fact sheets for this Emergency Use Autho rization (EUA) assay can be found at the following link s: For Healthcare Providers: https://www.fda.gov/media/238250/downloa d For Patients: https://www.fda.gov/media/883206/downloa d SARS Coronavirus 2, Source, Rapid Swab, Nasopharynx 02/20/2022 7:39 PM CDT [facility] Comment: REVISED RESULTS Specimen Anatomical Collection Method Collection Time Receive d Time (Source) Location / / Volume Laterality Varies 02/20/2022 7:39 PM 2 7:39 CDT PM CDT Nura David IV, M.D. LAB MICROBIOLOGY - GENERA L ORDERABLES Performing Organization Address City/[facility] Phon e Number [facility] - [address] [place] [address] [facility] ST[place], [place] [address] [place] [address] 200 [facility] Glucose, POCT (02/20/2022 7:12 PM CDT) Analysis Performed At Patho logist Time Signature Glucose, POCT, 93 70 - 140 02/20/2022 [facility] B mg/dL 7:28 PM CDT Site Capillary 02/20/2022 [facility] 7:28 PM CDT Last Intake > 4 hours 02/20/2022 [facility] 7:28 PM CDT Specimen Anatomical Collection Method Collection Time Receive d Time (Source) Location / / Volume Laterality Blood 02/20/2022 7:12 PM 2 7:28 CDT PM CDT Unknown Provider LAB POCT ORDERABLES-MANUAL Performing Organization Address City/[facility]/ZIP [facility] Phon e Number POC [facility] [address] [place] [address] [place] [address] [facility] 200 [facility] (ABNORMAL) Glucose, POCT (02/20/2022 12:19 PM CDT) [...] Provider LAB POCT ORDERABLES-MANUAL Performing Organization Address City/[facility] Phon e Number POC [facility] [address] [place] [address] [facility] [place] [address] [place] [facility] 200 [facility] Fibrinogen (02/20/2022 12:13 PM CDT) P athologist Signature Fibrinogen, P 287 200 - 393 02/20/2022 DTL mg/dL 1:24 PM CDT Specimen Anatomical Collection Method Collection Time Receive d Time (Source) Location / / Volume Laterality Blood (Blood, 02/20/2022 12:13 02/20/2022 Venous) PM CDT 12:42 PM CDT Nura David IV, M.D. LAB BLOOD ADD-ON Performing Organization Address City/[facility] Phon e Number [facility] - [address] [place], [place] [address] [facility] [place] [address] [facility] 200 [facility] (ABNORMAL) Prothrombin Time (PT) (02/20/2022 12:13 PM [...] M.D. LAB BLOOD ADD-ON Performing Organization Address [facility] Phon e Number [facility] - [address] [place] [address] [facility] [place], [place] [address] [place] [address] (ABNORMAL) Hepatic Function Panel (02/20/2022 12:13 PM CDT) Patholo gist Method Time Signature Bilirubin, Total, S 1.1 [...] M.D. LAB BLOOD ADD-ON Performing Organization Address City/State/[facility] Code Phon e Number [facility] - [address] [place], [place] [address] [facility] [place] [address] [place] [address] (ABNORMAL) Hemoglobin (02/20/2022 12:13 PM CDT) P athologist Signature Hemoglobin 8.8 (L) 13.2 - 16.6 02/20/2022 DTL g/dL 12:56 PM CDT Specimen Anatomical Collection Method Collection Time Receive d Time (Source) Location / / Volume Laterality Blood (Blood, 02/20/2022 12:13 02/20/2022 Venous) PM CDT 12:43 PM CDT Nura David IV, M.D. LAB BLOOD ADD-ON Performing Organization Address City/[facility]/ZIP [facility] Phon e Number [facility] - [address] [place], [place] [address] [facility] [place] [address] [facility] [address] [facility] (ABNORMAL) Glucose, POCT (02/20/2022 9:23 [...] Provider LAB POCT ORDERABLES-MANUAL Performing Organization Address [facility] Phon e Number POC [facility] [address] [place] [address] [facility] [place] [address] [facility] 200 [facility] (ABNORMAL) Basic Metabolic Panel (02/20/2022 3:30 AM [...] 02/20/2022 DTL Black/ mL/min/BSA 4:50 AM CDT [place] Comment: ----ADDITIONAL INFORMATION---- Estimated GFR calculated using [...] Address City/State/ZIP Code Phon e Number [facility] - [address] [place] [address] [facility] [place] [address] [facility] 200 [facility] (ABNORMAL) CBC without Differential (02/20/2022 3:30 AM CDT) [facility] gist Method Time Signature Hemoglobin 8.1 [...] M.D. LAB BLOOD ADD-ON Performing Organization Address City/State/[facility] Phon e Number [facility] - [address] [place], [place] [address] [facility] [place] [address] [facility] [address] [facility] Transfuse Red Blood Cells : (02/19/2022 9:29 PM CDT) Nura David IV, M.D. BLOOD TRANSFUSION ORDERAB LES Transfuse Red Blood Cells : , 1 Units (02/19/2022 9:29 PM CDT) Nura David IV, M.D. BLOOD TRANSFUSION ORDERAB LES (ABNORMAL) Glucose, POCT (02/19/2022 9:09 PM CDT) Analysis Performed At [facility] Time Signature Glucose, POCT, 195 (H) 70 - 140 02/19/2022 [facility] B mg/dL 9:13 PM CDT Site Capillary 02/19/2022 [facility] 9:13 PM CDT Last Intake 2-3 hours 02/19/2022 [facility] 9:13 PM CDT Specimen Anatomical Collection Method Collection Time Receive d Time (Source) Location / / Volume Laterality Blood 02/19/2022 9:09 PM 9:13 CDT PM CDT Unknown Provider LAB POCT ORDERABLES-MANUAL Performing Organization Address City/[facility] Phon e Number POC [facility] [address] [place] [address] [facility] [place] [address] [place] [facility]OC [address] [facility] (ABNORMAL) Glucose, POCT (02/19/2022 5:10 PM CDT) Analysis Performed At [facility] logis Time Signature Glucose, POCT, 176 (H) 70 - 140 02/19/2022 [facility] B mg/dL 5:13 PM CDT Site Capillary 02/19/2022 [facility] 5:13 PM CDT Last Intake 2-3 hours 02/19/2022 [facility] 5:13 PM CDT Specimen Anatomical Collection Method Collection Time Receive d Time (Source) Location / / Volume Laterality Blood 02/19/2022 5:10 PM 5:13 CDT PM CDT Unknown Provider LAB POCT ORDERABLES-MANUAL Performing Organization Address City/State/ZIP Code Phon e Number POC [facility] [address] [place] [address] [facility] [place] [address] [place] [facility] 200 [facility] (ABNORMAL) Hemoglobin (02/19/2022 3:33 PM CDT) P athologist Signature Hemoglobin 7.4 (L) 13.2 - 16.6 02/19/2022 DTL g/dL 4:29 PM CDT Specimen Anatomical Collection Method Collection Time Receive d Time (Source) Location / / Volume Laterality Blood (Blood, 02/19/2022 3:33 PM 02/20/20 22 4:18 Venous) CDT PM CDT Nura Davdi IV, M.D. LAB BLOOD ADD-ON Performing Organization Address City/[facility] Code Phon e Number [facility] - [address] [place], [place] [address] [facility] [place] [address] [facility] 200 [facility] Type and Screen (with reflex Antibody ID) (02/19/2022 3:33 PM CDT) Patholo gist Method Time Signature ABORh A Pos Not 02/19/2022 STRM applicable 4:20 PM CDT Antibody Negative Negative 02/19/2022 STRM Screen 4:38 PM CDT Type & Screen 02/22/2022 02/19/2022 STRM Expiration 23:59 4:20 PM CDT Testing [place] DEFAULT 02/19/2022 STRM Location 3:47 PM CDT Specimen Anatomical Collection Method Collection Time Receive d Time (Source) Location / / Volume Laterality Blood (Blood, 02/19/2022 3:33 PM 02/20/20 22 3:47 Venous) CDT PM CDT Nura David IV, M.D. LAB BLOOD BANK TEST ORDER RAFFY Performing Organization Address City/State/ZIP Code Phon e Number [facility] - [address] [place], [place] [address] [facility] [place] [address] [address] [address] (ABNORMAL) Glucose, POCT [...] Organization Address City/State/ZIP Code Phon e Number [facility] [address] [place] [address] [facility] [place] [address] [place] [facility] [address] (ABNORMAL) Hemoglobin (02/19/2022 9:34 AM CDT) P athologist Signature Hemoglobin 7.8 (L) 13.2 - 16.6 02/19/2022 DTL g/dL 11:01 AM CDT Specimen Anatomical Collection Method Collection Time Receive d Time (Source) Location / / Volume Laterality Blood (Blood, 02/19/2022 9:34 AM 02/20/20 22 Venous) CDT 10:00 AM CDT Nura David IV, M.D. LAB BLOOD ADD-ON Performing Organization Address City/[facility]/ZIP Code Phon e Number [facility] - [address] [place], [place] [address] [facility] [place] [address] [facility] [address] (ABNORMAL) Glucose, POCT (02/19/2022 8:06 AM CDT) [...] Provider LAB POCT ORDERABLES-MANUAL Performing Organization Address City/State/[facility] Phon e Number POC [facility] [address] [place] [address] [facility] [place] [address] [place] [facility] [address] [facility] (ABNORMAL) CBC without Differential (02/19/2022 3:33 AM CDT) [facility] Method Time Signature Hemoglobin 7.9 (L) 13.2 [...] Laterality Blood (Blood, 02/19/2022 3:33 AM 02/20/20 22 3:59 Venous) CDT AM CDT Cori Reece M.D. LAB BLOOD ADD-ON Performing Organization Address City/State/ZIP Code Phon e Number [facility] - [address] [place], [place] [address] [facility] [place] [address] [facility] [address] (ABNORMAL) Basic Metabolic Panel [...] 02/19/2022 DTL Black/ mL/min/BSA 4:30 AM CDT [place] Comment: ----ADDITIONAL INFORMATION---- Estimated GFR calculated using [...] Address City/State/ZIP Code Phon e Number [facility] - [address] [place], [place] [address] [facility] [place] [address] [facility] [address] (ABNORMAL) Glucose, POCT (02/19/2022 1:44 AM CDT) [...] Address City/State/ZIP Code Phon e Number POC [facility] [address] [place] [address] [place] [address] [place] [facility] [address] [facility] (ABNORMAL) Glucose, POCT (02/18/2022 5:14 [...] LAB POCT ORDERABLES-MANUAL Performing Organization Address City/State/ZIP [facility] Phon e Number [facility] [address] [place] [address] [place] [address] [place] [facility] [address] [facility] ECG 12 Lead (02/18/2022 1:25 PM CDT) P athologist Signature Ventricular Rate 69 BPM MUSE ECG/Min [place] Interval 168 ms MUSE QRSD Interval 102 ms MUSE QT Interval 454 ms MUSE QTC Interval 486 ms MUSE P [place] 71 degrees MUSE R [place] -8 degrees MUSE T Wave [place] 97 degrees MUSE Specimen Anatomical Collection Method Collection Time Receive d Time (Source) Location / / Volume Laterality 02/18/2022 1:25 PM 2 1:29 CDT PM CDT Impressions MUSE - [...] Address City/State/ZIP Code Phon e Number POC [facility] [address] [place] [address] [facility] [place] [address] [place] [facility] [address] Abdomen and/or [...] LOCATION: Left bladder mass BIOPSY INSTRUMENT: intermediate rd NUMBER OF SAMPLES OBTAINED: 6 COMPLICATION: [...] TARGET LOCATION: Left bladder mass BIOPSY INSTRUMENT: 17/[address] NUMBER OF SAMPLES OBTAINED: 6 COMPLICATION: None BLOOD LOSS: Minimal PATIENT INSTRUCTIONS: Patient may be dis missed from the radiology department when dismissal criteria met. POST-PROCEDURE DIAGNOSIS: Left bladder m ass IMPRESSION: CT-guided left bladder mass biopsy. EP David Sevilla, B.Ch., B.A.O. IMG CT PROCEDURES (ABNORMAL) Cytology Fine Needle Aspiration (including core biopsies) (02/18/2022 8:00 AM CDT) Component Value Ref Test Analysis Performed At [facility] Range Method Time Signature (A) 02/20/2022 DTL 3:00 [...] David Sevilla, B.Ch., B.A.O. LAB SURG PATH ORDEmanuel FLORES Performing Organization Address City/State/ZIP Code Phon e Number [facility] - [address] [place], [place] [address] [facility] [place], [place] [id number] [place] [address] Glucose, POCT (02/18/2022 7:25 AM CDT) Analysis Performed At [facility] logist Time Signature Glucose, POCT, 112 70 - 140 02/18/2022 PCLX B mg/dL 12:58 PM CDT Site Capillary 02/18/2022 PCLX 12:58 PM CDT Specimen Anatomical Collection Method Collection Time Receive d Time (Source) Location / / Volume Laterality Blood 02/18/2022 7:25 AM 2 CDT 12:59 PM CDT Unknown Provider LAB POCT ORDERABLES-MANUAL Performing Organization Address City/State/ZIP Code Phon e Number POC [facility] [address] [place] [address] [place] [id number] [place] [address] documented in this [...] oral, User Specified (Once per day on Mon Tue Wed Lise), First dose (after last reorder) on Fri02/20/22 [...] As needed, line care, Starting on M 02/18/22 at 0918, Preprocedure (RAD), Prior to [...] (LUMASON) intravenous, As needed, contrast, Starting on Fri02/21/22 at 1037, See protocol. Reconstitute each 25 mg vial with 5 mL NS. traMADoL tablet 50 mg (ULTRAM) Given 02/22/2022 6:56 PM CDT 50 mg 50 mg, oral, Every 6 hours PRN, moderate pain or score 4-6 of 10, Starting on Fri02/18/22 at 1318 Given 02/22/2022 12:33 PM CDT [...] XL) 1416 (Given - Provider: Josephine Sánchez R.N.) 0849 (Given - Provider: Maria D Spencer R.N.) 0742 (Gi austyn - Provider: Shelley Baker R.N.) 300 mg, oral, Daily, First dose [...] Units 1417 (Given - Provider: Josephine Sánchez RJluisN.)2144 (Given - Provider: Josephine Sánchez R.N.) 0849 (Given - Provider: Maria D Spencer R.N.)1522 (Given - Provider: Analisa Garcia.N.)2128 (Given - Provider: Gibran RiberaNJluis) 0624 (Given - Provider: Riley Paiz R.N.)1314 (Given - Provider: Shelley Baker R.N.) 5,000 Units, subcutaneous, Every 8 hours scheduled, First dose on Fri02/20/22 at 1400 hydroxyurea capsule 1,500 mg (HYDREA) 0905 (Given - Pr ovider: [place] Barry R.N.) 0852 (Given - Provider: Maria D Spencer RJluisNJluis) 1,500 mg, oral, User Specified (Once per [...] (Not Given - Provider: Maria D Spencer RJluisNJluis - Reason: Order parameters not met - [...] Provider: Maria D Spencer R.N. - Comment: RM 205) 1636 (Not Given - Provider: Shelley Baker R.N. - Reason: Patient/family refused) 6 units, 380 - 399: 7 units, Greater th an 399: Call service writing Insulin orders pantoprazole DR tablet 40 mg (PROTONIX) 0647 (Given - Provider: Gibran JaraNJluis) 0736 (Given - Provider: [place] R.N.) [...] Barry R.N.)2038 (Given - Provider: Josephine Sánchez RGuy) 0849 (Given - Provider: Maria D Spencer RJluisNJluis)2127 (Not Given - Provider: Riley Paiz R.N. - Reason: Patient/family refused) 0742 (Given - Provider: Shelley Baker R.N.) 1 tablet, oral, 2 times daily, First dos e on Fri02/18/22 at 2100, Do not give if patient has diarrhea. sodium chloride 0.9 % injection 3 mL 0913 (Not Given - Provider: Maria D García R.N. - Reason: Other)2039 (Given - Provider: Josephine Sánchez R.N.) 0945 (Given - Provider: Gibran GarciaNJluis)2134 (Given - Provider: Riley Paiz R.N.) 0748 [...] not met)2134 (Given - Provider: Riley Paiz RGuy) 3 [...] 2323 (New Bag - Provider: Jonna Corral RGuy) 0535 (New Bag - Provider: Sheron Cuevas [...] Mortensen R.N.)0905 (Given - Provider: [place] Barry RJluisNJluis) 0930 (Given - Provider: Shelley Baker RJluisNJluis)1856 (Given - Provider: Shelley Baker, R.NJluis) 1,000 mg, oral, Every 6 hours PRN, mild pain or score 1-3 of 10, Starting on 02/18/22 at 1318, For mild pain, give acetaminophen [...] 1) 0913 (Given - Provider: [place] Barry RGuy) 10 mg, oral, Every 4 hours PRN, severe p ain or score 7-10 of 10, May use if patient can take oral meds and other analgesics are ineffective, Starting on Fri02/18/22 at 1318 oxyCODONE IR tablet 5 mg (ROXICODONE)(Linked Group 1) 0913 (See Alternative - Provider: [place] Barry R.NJluis) 5 mg, oral, Every 4 hours PRN, moderate pain or score 4-6 of 10, May use if patient can take oral meds and other analgesics are ineffective, Starting on Fri02/18/22 at 1318 polyethylene glycol powder packet 17 g (MIRALAX) 0904 (Given - Provider: Gibran LopezNJluis) 17 g, oral, Daily PRN, constipation, Sta [...] 51 (Given - Provider: Maria D Spencer R.N.) 10 mL, intravenous, As needed, line care , Starting on Fri02/18/22 at 1316, Peripheral Intravenous Catheter and Rapid Infusion Catheter, prior to blood sampling, post blood transfusion or post blood sampling sodium chloride 0.9 % injection 10 mL 10 39 (Given - Provider: VENKATESH Roman) 10 mL, intravenous, As needed, line care , Starting on Fri02/21/22 at 1037, Prior to and following infusion [...] (ULTRAM) 0207 (Given - Provider: Kwesi Mortensen RGuy)1037 (Given - Provider: Maria D García RJluisNJluis) 1233 (Given - Provider: Eulalia Suh RJluisNJluis)1856 (Given - Provider: Shelley Baker RJluisNJluis) 50 mg, oral, Every 6 hours PRN, moderate pain or score 4-6 of 10, Starting on 02/18/22 at 1318 trospium tablet 20 mg (SANCTURA) 0206 (Given - Provide r: Kwesi Mortensen R.N.)1416 (Given - Provider: Josephine Sánchez RJluisNJluis) 2128 (Given - Provider: Riley Paiz RJluisNJluis) [...] are ineffective, Starting on 02/18/22 at 1318 Or oxyCODONE IR tablet 10 [...] documented as of this encounter Care Teams Tube Turner Relationship Specialty Start Date End Date Elsewhere, Pcp PCP - General Internal Medicine 01/14/22 documented as of this encounter
--- OUTSIDE RECORDS SUMMARY | 2022-08-29 08:59 | XMS_ITS | Encounter Summary ---
:1935 Author Organization [facility] Address [address] [place] [address] Care Team Providers Name Role Phone Elsewhere, Pcp Primary Care Provider Unavailable Reason for Referral Outpatient (Routine) - Closed Specialty Diagnoses / Procedures Referred By Contact Refer red To Contact Radiology Diagnoses Malignant Neoplasm Of Bladder (HCC) Nura David IV [facility] Procedures IR Nephrostomy Tube Exchange Left M.D. [address] [place], [place] [phone] Referral ID Status Reason Start Date Expiration Date Visits Requ ested Visits Authorized [id number] Closed 02/22/2022 02/22/2023 1 1 Encounter Details Date Type Department Care Team Description 02/22/2022 Orders Only Department of Urology Nura David Malignant Neoplasm Of in Becky Batista IV, M.D. Bladder (HCC) (Primary [place] [address] [facility] Dx) [address] [place] [phone] Social History Tobacco Use Types Packs/Day Years [...] you attend mandaen or Patient refused 2021 yarsani services? Do you belong to any clubs or No 05/17/2022 organizations such as mandaen groups, unions, [employer] or athletic groups, or school groups? 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 [address] [place] [address] (Wo rk) documented as of this [...] 05/20/2022 5:48 PM CDT Routine exchange 10 Maldivian left percutaneous nephrostomy tube. Drain to gravity [...] lidoca ine used for local anesthesia. Fluoroscopic set up operator image demonstrates unchanged position of the l eft 10 Maldivian percutaneous nephrostomy tube. Injection of contrast demonstrated a locking loop wit hin the markedly dilated left renal pelvis with high-grade narrowing at the left UPJ. Drain removed in its entirety over a guidewire and a new 10 Maldivian locking loop catheter advanced with lock ing [...] lidoca ine used for local anesthesia. Fluoroscopic set up operator image demonstrates unchanged position of the l eft 10 Maldivian percutaneous nephrostomy tube. Injection of contrast demonstrated a locking loop wit hin the markedly dilated left renal pelvis with high-grade narrowing at the left UPJ. Drain removed in its entirety over a guidewire and a new 10 Maldivian locking loop catheter advanced with lock ing [...] blood loss: minimal.. IMPRESSION: Routine exchange 10 Maldivian left percutan eous nephrostomy tube. Drain to gravity bag drainage. Routine exchange in 10-12 week s. NR Nura David IV, M.D. IMJunie IR PROCEDURES documented in this encounter Visit Diagnoses Diagnosis Malignant Neoplasm Of Bladder (HCC) - Pr imary Malignant Neoplasm Of Bladder (HCC) documented in this encounter Care Teams Packaging Tech Relationship Specialty Start Date End Date Elsewhere, Pcp PCP - General Internal Medicine 01/14/22 documented as of this encounter
--- OUTSIDE RECORDS SUMMARY | 2022-08-29 08:59 | XMS_ITS | Encounter Summary ---
:1935 Author Organization [facility] Address [address] [place] [address] Care Team Providers Name Role Phone Elsewhere, Pcp Primary Care Provider Unavailable Reason for Referral Outpatient (Routine) - Closed Specialty Diagnoses / Procedures Referred By Contact Refer red To Contact Urology Diagnoses Retention Urinary Nura David IV [place] [facility]i [facility]am[facility] [address] [place] [phone] Referral ID Status Reason Start Date Expiration Date Visits Requ ested Visits Authorized [id number] Closed 02/27/2022 02/27/2023 1 1 Scheduling Instructions PLEASE SCHEDULE WITH JACQUELINE OR PROVIDER WHO CAN DO REZUM CONSULTATION Reason for Visit Reason Comments Post-op Outpatient (Routine) - Closed Specialty Diagnoses / Procedures Referred By Contact Refer red To Contact Urology Cori Reece M.D . [address] [phone] Referral ID Status Reason Start Date Expiration Date Visits Requ ested Visits Authorized [id number] Closed 02/22/2022 02/22/2023 1 1 Encounter Details Date Type Department Care Team Description 02/27/2022 Office Visit Department of Urology Lamont Lakhani Urinary in [place] M.D. (Primary Dx) [address] [phone] Social History Tobacco Use Types Packs/Day Years [...] you attend nondenominational or Patient refused 2021 moravian services? 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 - 02/27/2022 3:00 PM CDT Urology [facility] clinic note Subjective Mr. Chery is an [...] void bladder scan 579 cc. An 18 Montenegrin coude catheter was replaced. On my visit with the patient, he is accompanied by his and [id number]. He reports overall doing fine. The primary question is what to regarding bladder drainage. Also had a question about some seemingly purulent drainage noted on catheter removal. He denies nausea, vomiting, fevers, chills. Objective On exam, patient is awake, alert, oriented, not in distress. There is an 18 Montenegrin Villarreal catheter draining clear thin fruit punch [...] Waller M.D. [address] [place] [address] (Wo rk) Scheduled Referrals Name Type Priority Associated Diagnoses [facility] - General - Outpatient Referral Routine Retention Urin anita Expected: urinary retention 02/27/2022 consult (clinic) (Approximat e), Expires: 05/30/2023 documented as of this encounter Visit Diagnoses Diagnosis Retention Urinary - Primary documented in this encounter Care Teams Hemodialysis Charge Nurse Relationship Specialty Start Date End Date Elsewhere, Pcp PCP - General Internal Medicine 01/14/22 documented as of this encounter
--- OUTSIDE RECORDS SUMMARY | 2022-08-29 08:59 | XMS_ITS | Encounter Summary ---
:1935 Author Organization [facility] Address [address] [place] [address] Care Team Providers Name Role Phone Elsewhere, Pcp Primary Care Provider Unavailable Reason for Visit Reason Comments Rx Prior Authorization PA DENIED TROSPIUM CHLORIDE 20 MG TAB Encounter Details Date Type Department Care Team Description 03/05/2022 Clinical Communication Pharmacy Prior Vladimir George Rx Prior RO [phone] Authorization (MARTY DENIED TROSPIUM CHLORIDE 20 MG [...] you attend jainism or Patient refused 2021 bahai services? 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 [address] [place] [phone] (Wo rk) documented as of this encounter Visit Diagnoses Not on filedocumented in this encounter Care Teams Health Worker Relationship Specialty Start Date End Date Elsewhere, Pcp PCP - General Internal Medicine 01/14/22 documented as of this encounter
--- OUTSIDE RECORDS SUMMARY | 2022-08-29 08:59 | XMS_ITS | Encounter Summary ---
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 [address] [place] [address] (Wo rk) documented as of this encounter Visit Diagnoses Not on filedocumented in this encounter Care Teams Brake Holder Relationship Specialty Start Date End Date Elsewhere, Pcp PCP - General Internal Medicine 01/14/22 documented as of this encounter
--- OUTSIDE RECORDS SUMMARY | 2022-08-29 08:59 | XMS_ITS | Encounter Summary ---
:1935 Author Organization [facility] Address [address] [place] [address] Care Team Providers Name Role Phone Elsewhere, Pcp Primary Care Provider Unavailable Encounter Details Date Type Department Care Team Description 02/25/2022 Clinical Communication Department of Urology Provider, Unknown in [place], [place] [address] [place] [address] Social History Tobacco Use Types Packs/Day Years [...] attend roman catholic or Patient refused 2021 church services? 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 documented in this encounter Plan of Treatment Upcoming Encounters Date Type Specialty Care Team Description 09/03/2022 Telemedicine Urology Albert Waller M.D. [address] [place] [phone] (Wo rk) documented as of this encounter Visit Diagnoses Not on filedocumented in this encounter Care Teams Hat Liner Relationship Specialty Start Date End Date Elsewhere, Pcp PCP - General Internal Medicine 01/14/22 documented as of this encounter
--- OUTSIDE RECORDS SUMMARY | 2022-08-29 08:59 | XMS_ITS | Encounter Summary ---
:1935 Author Organization [facility] Address [address] [place] [address] Care Team Providers Name Role Phone Elsewhere, Pcp Primary Care Provider Unavailable Encounter Details Date Type Department Care Team Description 02/26/2022 Clinical Communication Department of Urology Lisbeth Nguyen in [facility] [phone] [address] [facility] ([place]) [place] [address] Social History Tobacco Use Types Packs/Day Years [...] you attend anglican or Patient refused 2021 restorationism services? 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 [address] [place] [phone] (Wo rk) documented as of this encounter Visit Diagnoses Not on filedocumented in this encounter Care Teams Tree Trimming Supervisor Relationship Specialty Start Date End Date Elsewhere, Pcp PCP - General Internal Medicine 01/14/22 documented as of this encounter
--- OUTSIDE RECORDS SUMMARY | 2022-08-29 09:00 | XMS_ITS | Encounter Summary ---
:1935 Author Organization [facility] Address [address] [place] [address] Care Team Providers Name Role Phone Elsewhere, Pcp Primary Care Provider Unavailable Encounter Details Date Type Department Care Team Description 02/07/2022 Hospital Encounter Department of Laboratory Calin Day, Mass Bladder Medicine in [place], Juan., B.Ch., [place] B.A.O. [address] [place] [phone] [phone] Social History Tobacco Use Types Packs/Day Years [...] you attend judaism or Patient refused 2021 jain services? 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 [address] [place] [phone] (Wo rk) documented as of this [...] Organization Address City/State/ZIP Code Phon e Number [facility] [place] [address] [place], [place] [address] [facility] [address] [place] [address] [facility] [address] [place] (ABNORMAL) Basic Metabolic Panel (02/07/2022 9:26 AM [...] CDT eGFR-Black/Afri 72 >=60 02/07/2022 NPRG can [place] mL/min/BSA 11:13 AM CDT Comment: ----ADDITIONAL INFORMATION---- [...] Venous) CDT 10:21 AM CDT David Sevilla, Rae.Ch., B.A.O. LAB BLOOD ADD-ON Performing Organization Address City/[facility] Phon e Number [address] LAB NPRG [address] Albumin (02/07/2022 9:26 AM CDT) P athologist Signature Albumin, P 3.9 3.5 - 5.0 02/07/2022 NPRG g/dL 11:13 AM CDT Specimen Anatomical Collection Method Collection Time Receive d Time (Source) Location / / Volume Laterality Blood (Blood, 02/07/2022 9:26 AM 02/08/20 Venous) CDT 10:21 AM CDT David Sevilla, CrowCh., B.A.O. LAB BLOOD ADD-ON Performing Organization Address City/[facility] Phon e Number [place] [address] [facility] [address] (ABNORMAL) CBC with Differential, Blood (02/07/2022 9:26 AM CDT) [facility] gist Method Time Signature Hemoglobin 9.6 (L) [...] Organization Address City/State/ZIP Code Phon e Number [facility]- [address] [place] [address] [place] [address] System in [place] [address] [facility] documented in this encounter Visit Diagnoses Diagnosis Mass Bladder documented in this encounter Care Teams Teacher Selection Specialist Relationship Specialty Start Date End Date Elsewhere, Pcp PCP - General Internal Medicine 01/14/22 documented as of this encounter
--- OUTSIDE RECORDS SUMMARY | 2022-08-29 09:00 | XMS_ITS | Encounter Summary ---
:1935 Author Organization [facility] Address [address] [place] [address] Care Team Providers Name Role Phone Elsewhere, Pcp Primary Care Provider Unavailable Encounter Details Date Type Department Care Team Description 02/13/2022 Clinical Communication Department of Urology aDvid Aguero, in [facility] Juan., B.Ch., [place] B.A.O. [address] [facility] [address] [place] [address] [phone] Social History Tobacco Use Types Packs/Day Years [...] you attend anglican or Patient refused 2021 methodist services? 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 [address] [place] [address] (Wo rk) documented as of this encounter Results SARS Coronavirus-2 RNA, V Asymptomatic (02/15/2022 9:22 AM CDT) [facility] Method Time Signature SARS-CoV-2 Swab, 02/15/2022 MKTO Specimen Nasopharynx 10:28 PM Source CDT SARS CoV-2 Undetected Undetected 02/15/2022 MARLENI RNA, TMA 10:28 PM CDT Comment: SARS-CoV-2 [...] pe rformed using the Aptima SARS-CoV-2 assay ([employer] on the [employer] tem under emergency use authorization (EUA) by the U.S. Food and Drug Administ ration. Fact sheets for this EUA assay can be fo und at the following links: For Healthcare Providers: https://www.[employer] a.gov/media/121631/download For Patients: https://www.fda.gov/media/ 007397/download Specimen Anatomical Collection Method Collection Time Receive d Time (Source) Location / / Volume Laterality Varies 02/15/2022 9:22 AM 3:08 (Nasopharynx) CDT PM CDT David Sevilla, B.Tj., B.A.O. LAB MICROBIOLOGY - GENERAL ORDERABLES Performing Organization Address City/State/ZIP Code Phon e Number [facility]- [address] [place] [address] [place] [address] System [address] documented in this encounter Visit Diagnoses Diagnosis Hydronephrosis - Primary Mass Bladder documented in this encounter Care Teams Personnel Psychologist Relationship Specialty Start Date End Date Elsewhere, Pcp PCP - General Internal Medicine 01/14/22 documented as of this encounter
--- OUTSIDE RECORDS SUMMARY | 2022-08-29 09:00 | XMS_ITS | Encounter Summary ---
:1935 Author Organization [facility] Address [address] [place] [address] Care Team Providers Name Role Phone Elsewhere, Pcp Primary Care Provider Unavailable Encounter Details Date Type Department Care Team Description 02/15/2022 Clinical Communication Department of Urology David Day, in [facility] Juan., B.Ch., [place] B.A.O. [address] [facility] [address] [place] [address] [phone] Social History Tobacco Use Types Packs/Day Years [...] you attend evangelical or Patient refused 2021 muslim services? 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 - 02/15/2022 2:01 PM CDT Spoke with the daughter over the phone. Patient has seen his local video game tester today and he clearedhim for general anesthesia. Informed the patient and his family that if he wants to have the procedure TURBT to be done here at [facility] he will still require to have clearance [...] for Friday. Desiree can be reached at [phone]. documented in this encounter Plan of Treatment Upcoming Encounters Date Type Specialty Care Team Description 09/03/2022 Telemedicine Urology Albert Waller M.D. [address] [place] [address] (Wo rk) documented as of this encounter Visit Diagnoses Diagnosis Hematuria - Primary documented in this encounter Additional Health Concerns Infection Onset Date Last Indicated Resolved Time COVID19 Pending 02/15/2022 02/15/2022 02/15/2022 10:28 PM CDT COVID19 Pending 02/20/2022 02/20/2022 02/20/2022 8:04 PM CDT documented as of this encounter Care Teams Operator Receptionist Relationship Specialty Start Date End Date Elsewhere, Pcp PCP - General Internal Medicine 01/14/22 documented as of this encounter
--- OUTSIDE RECORDS SUMMARY | 2022-08-29 09:00 | XMS_ITS | Encounter Summary ---
:1935 Author Organization [facility] Address [address] [place] [address] Care Team Providers Name Role Phone Unavailable Primary Care Provider Unavailable Reason for Referral Outpatient (Routine) - Closed Specialty Diagnoses / Procedures Referred By Contact Refer red To Contact Dermatology Aashish Pandey M.D . [address] [address] Referral ID Status Reason Start Date Expiration Date Visits Requ ested Visits Authorized [id number] Closed 10/04/2019 10/03/2020 1 1 Scheduling Instructions 915 am recheck lesion MAKER Reason for Visit Reason Comments Actinic Keratosis Recheck Outpatient (Routine) - Closed Specialty Diagnoses / Procedures Referred By Contact Refer red To Contact Dermatology [facility].D . [facility] [address] [address] Referral ID Status Reason Start Date Expiration Date Visits Requ ested Visits Authorized [id number] Closed 08/03/2019 08/02/2020 1 1 Encounter Details Date Type Department Care Team Description 10/04/2019 Office Visit Department of Aashish Pandey Nevi Multi ple (Primary Dx); Dermatology in [place] Keratosis Actinic; [address] Keratosis Seborrheic; [address] [place], [place] Cancer Skin Squamous [place] [address] [phone] Social History Tobacco Use Types Packs/Day Years [...] you attend hoahaoism or Patient refused 2021 taoism services? Do you belong to any clubs or No 05/17/2022 organizations such as hoahaoism groups, unions, fraFair Observer or athletic groups, or school groups? 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 Juarez at [facility]. He denies a personal or family history for melanoma. The patient has no other concerns today. MEDICAL HISTORY 1. 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 Hare??at [facility] on 10/27/17 2. Squamous cell carcinoma in [...] surgery on 07/27/[address] Juarez at [facility] 6. Negative for melanoma FAMILY HISTORY Negative for melanoma OBJECTIVE PHYSICAL EXAMINATION General: Awake, alert, in no acute distress, and with appropriate affect. 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 [...] Electronically Signed: cookie Kelly. 10/04/2019. 9:59 AM LARD MAKER. Aashish Dubon M.D., personally performed the services described in this documentation. All medical record entries made by the scribe were at my direction and in my presence. I have reviewed the chart and discharge instructions (if applicable) and agree that the record reflects my personal performance and is accurate and complete. Aashish Pandey M.D. . 10/04/2019. 10:17 AM LARD MAKER. MAKER documented in this encounter Plan of Treatment Upcoming Encounters Date Type Specialty Care Team Description 09/03/2022 Telemedicine Urology Albert Waller M.D. [address] [place] [address] (Wo rk) Scheduled Referrals Name Type Priority Associated Order Schedule Diagnoses Dermatology office Outpatient Referral Routine Ex pected: visit (clinic) 11/02/2019 (Approximate), Expires: 10/04/2022 documented as of this encounter Visit Diagnoses Diagnosis Nevi Multiple - Primary Keratosis Actinic Keratosis Seborrheic Cancer Skin Squamous Cell Personal Histo ry documented in this encounter
--- OUTSIDE RECORDS SUMMARY | 2022-08-29 09:00 | XMS_ITS | Encounter Summary ---
:1935 Author Organization [facility] Address [address] [place] [address] Care Team Providers Name Role Phone Unavailable Primary Care Provider Unavailable Encounter Details Date Type Department Care Team Description 06/05/2021 Orders Only [facility] PCP [facility] MNGordon Henderson, D.OJluis [address] [place] [address] (Wo rk) Social History Tobacco [...] you attend religion or Patient refused 2021 mormon services? Do [...] Date Recorded Male 09/10/2018 8:41 AM FISH HATCHERY MAN documented as of this encounter Plan of Treatment Upcoming Encounters Date Type Specialty Care Team Description 09/03/2022 Telemedicine Urology Albert Waller M.D. [address] [place] [phone] (Wo rk) documented as of this encounter Visit Diagnoses Not on filedocumented in this encounter
--- OUTSIDE RECORDS SUMMARY | 2022-08-29 09:00 | XMS_ITS | Encounter Summary ---
:1935 Author Organization [facility] Address [address] [place] [address] Care Team Providers Name Role Phone Unavailable Primary Care Provider Unavailable Reason for Referral Outpatient (Routine) - Closed Specialty Diagnoses / Procedures Referred By Contact Refer red To Contact Dermatology Aashish Pandey M.D . [facility] [address] [place] [phone] Referral ID Status Reason Start Date Expiration Date Visits Requ ested Visits Authorized Closed 05/01/2020 05/01/2021 1 1 Scheduling Instructions Return visit in 2-3 months. 30 minutes Reason for Visit Reason Comments Skin Check Encounter Details Date Type Department Care Team Description 05/01/2020 Office Visit Department of Aashish Pandey, Keratosis Actinic Dermatology in [place] (Primary Dx) [place], [place] [address] [phone] Social History Tobacco Use Types Packs/Day Years [...] you attend pentecostal or Patient refused 2021 presybeterian services? Do you belong to any clubs or No 05/17/2022 organizations such as pentecostal groups, unions, fraTooth Bank or athletic groups, or school groups? How [...] at Date Recorded Male 09/10/2018 8:41 AM CURVE CLEANER documented as of this encounter Progress Notes [...] status post Mohs surgery by Dr. Hare??at [facility] on 10/27/17 2. Squamous cell carcinoma [...] surgery on 07/27/[address] Juarez at [facility] 6. Negative for melanoma FAMILY HISTORY [...] He also has 1 AK involving the [id number] dorsal finger and 1 involving the right [...] M.D. [address] [place] [address] (Wo rk) Scheduled Referrals Name Type Priority Associated Order Schedule Diagnoses Dermatology office Outpatient Referral Routine Ex pected: visit (clinic) 08/01/2020 (Approximate), Expires: 05/01/2023 documented as of this encounter Visit Diagnoses Diagnosis Keratosis Actinic - Primary documented in this encounter
--- OUTSIDE RECORDS SUMMARY | 2022-08-29 09:00 | XMS_ITS | Encounter Summary ---
:1935 Author Organization [facility] Address [address] [place] [address] Care Team Providers Name Role Phone Elsewhere, Pcp Primary Care Provider Unavailable Encounter Details Date Type Department Care Team Description 02/07/2022 Hospital Encounter Department of Laboratory Calin Day, Mass Bladder Medicine in [place], Juan., B.Ch., [place] B.A.O. [address] [place] [address] [phone] Social History Tobacco Use Types Packs/Day Years [...] you attend baptist or Patient refused 2021 denominational services? 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 [address] [place], [place] [address] (Wo rk) documented as of this [...] (02/07/2022 9:26 AM CDT) Analysis Performed At [facility] Time Signature Urine Culture Mixed 02/08/2022 [facility] jonatan. (A) 11:51 AM CDT Specimen Anatomical Collection Method Collection Time Receive d Time (Source) Location / / Volume Laterality Urine (Urine, 02/07/2022 9:26 AM 02/08/20 3:07 Midstream) CDT PM CDT Comment: Specimen Source Site: Urine David Sevilla, B.Ch., B.A.O. LAB MICROBIOLOGY - GENERAL ORDERABLES Performing Organization Address City/State/ZIP Code Phon e Number [facility]- [address] [place] [address] [place] [address] [address] (ABNORMAL) Urinalysis with Microscopic: Urine, Midstream (02/07/2022 9:26 AM CDT) Analysis Performed At [facility] Signature Source Urine, Urine, 02/07/2022 NPCL Midstream [...] 8.0 02/07/2022 10:56 AM CDT NPCL Specific [place] 1.020 1.001 - 1.035 02/07/2022 10:56 AM [...] 9:26 Midstream) CDT AM CDT David Sevilla, B.Ch., B.A.O. LAB URINE ORDERABL ES Performing Organization Address City/State/ZIP Code Phon e Number [facility]- [address] [place], [place] [address] [place] [address] [facility] [address] [place] [address] documented in this encounter Visit Diagnoses Diagnosis Mass Bladder documented in this encounter Care Teams Passenger Tire Inspector Relationship Specialty Start Date End Date Elsewhere, Pcp PCP - General Internal Medicine 01/14/22 documented as of this encounter
--- OUTSIDE RECORDS SUMMARY | 2022-08-29 09:00 | XMS_ITS | Encounter Summary ---
:1935 Author Organization [facility] Address [address] [place] [address] Care Team Providers Name Role Phone Elsewhere, Pcp Primary Care Provider Unavailable Encounter Details Date Type Department Care Team Description 01/14/2022 Documentation Division of Nephrology and Alicia Jeffrey, Hypertension in [place], Ashtyn, Ph.D. [address] [place] [phone] (Wo rk) Social History Tobacco Use Types [...] you attend protestant or Patient refused 2021 mandaeism services? 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 BULKER documented as of this encounter Plan of Treatment Upcoming Encounters Date Type Specialty Care Team Description 09/03/2022 Telemedicine Urology Albert Waller M.D. [address] [place] [address] (Wo rk) documented as of this encounter Visit Diagnoses Not on filedocumented in this encounter Care Teams Coagulating Bath Mixer Relationship Specialty Start Date End Date Elsewhere, Pcp PCP - General Internal Medicine 01/14/22 documented as of this encounter
--- OUTSIDE RECORDS SUMMARY | 2022-08-29 09:00 | XMS_ITS | Encounter Summary ---
:1935 Author Organization [facility] Address [address] [place] [address] Care Team Providers Name Role Phone Elsewhere, Pcp Primary Care Provider Unavailable Encounter Details Date Type Department Care Team Description 02/15/2022 Hospital Encounter Department of David Day Hydron ephrosis; Laboratory Medicine in Ro[place] Heredia, B.Ch., Ma Bladder [place], [facility] a B.A.O. [address] [place] [address] [address] [place] [address] [phone] Social History Tobacco Use Types Packs/Day Years [...] you attend mormonism or Patient refused 2021 jainism services? 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 [address] [place] [address] (Wo rk) documented as of this encounter Procedures Procedure Name Priority Date/Time Associated Diagnosis Comme nts SARS CORONAVIRUS-2 Routine 02/15/2022 9:22 AM Hydronephr osis Results for this RNA, V CDT Mass Bladder procedure are i n the results section. documented in this encounter Results SARS Coronavirus-2 RNA, V Asymptomatic (02/15/2022 9:22 AM CDT) [facility] Method Time Signature SARS-CoV-2 Swab, 02/15/2022 [...] pe rformed using the Aptima SARS-CoV-2 assay ([employer] on the [employer] tem under emergency use authorization (EUA) by the U.S. Food and Drug Administ ration. Fact sheets for this EUA assay can be fo und at the following links: For Healthcare Providers: https://www.fd a.gov/media/342111/download For Patients: https://www.fda.gov/media/ 979251/download Specimen Anatomical Collection Method Collection Time Receive d Time (Source) Location / / Volume Laterality Varies 02/15/2022 9:22 AM 3:08 (Nasopharynx) CDT PM CDT David Sevilla, B.Ch., B.A.O. LAB MICROBIOLOGY - GENERAL ORDERABLES Performing Organization Address City/State/ZIP Code Phon e Number [facility]- [address] [place] [address] [place] [address] System [address] documented in this encounter Visit Diagnoses Diagnosis Hydronephrosis Mass Bladder documented in this encounter Additional Health Concerns Infection Onset Date Last Indicated Resolved Time COVID19 Pending 02/15/2022 02/15/2022 02/15/2022 10:28 PM CDT documented as of this encounter Care Teams Demolition Worker Relationship Specialty Start Date End Date Elsewhere, Pcp PCP - General Internal Medicine 01/14/22 documented as of this encounter
--- OUTSIDE RECORDS SUMMARY | 2022-08-29 09:00 | XMS_ITS | Encounter Summary ---
:1935 Author Organization [facility] Address [address] [place] [address] Care Team Providers Name Role Phone Elsewhere, Pcp Primary Care Provider Unavailable Reason for Referral Outpatient (Routine) - Closed Specialty Diagnoses / Procedures Referred By Contact Refer red To Contact Urology Diagnoses Malignant Neoplasm Of Bladder (HCC) Slava Edwards M.D. [facility] [address] [place] [address] Referral ID Status Reason Start Date Expiration Date Visits Requ ested Visits Authorized [id number] Closed 01/30/2022 01/30/2023 1 1 Encounter Details Date Type Department Care Team Description 01/30/2022 Community [facility] Slava Edwards ignant Neoplasm Of AND MIRTHA Pena M.D. Bladder (HCC) [address] [id number] [facility] (Primary Dx) [place] [address] [place], [place] [phone] Social History Tobacco Use Types Packs/Day Years [...] you attend protestant or Patient refused 2021 catholic services? Do you belong to any clubs or No 05/17/2022 organizations such as protestant groups, unions, fraEasyaula or athletic groups, or school groups? 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 [address] [place], [place] [phone] (Wo rk) Scheduled Referrals Name Type Priority Associated Diagnoses [facility] Referral Outpatient Referral Routine Malignant Neoplas m Of Expected: Bladder (HCC) 01/30/2022 (Approximate), Expires: 05/01/2023 documented as of this encounter Visit Diagnoses Diagnosis Malignant Neoplasm Of Bladder (HCC) - Pr imary documented in this encounter Care Teams Retail Assistant Relationship Specialty Start Date End Date Elsewhere, Pcp PCP - General Internal Medicine 01/14/22 documented as of this encounter
--- OUTSIDE RECORDS SUMMARY | 2022-08-29 09:00 | XMS_ITS | Encounter Summary ---
:1935 Author Organization [facility] Address [address] [place] [address] Care Team Providers Name Role Phone Unavailable Primary Care Provider Unavailable Encounter Details Date Type Department Care Team Description 07/31/2020 Clinical Communication Department of Aashish Pandey, Dermatology in [place], [place] [address] [place] [address] [phone] Social History Tobacco Use Types Packs/Day Years [...] you attend zoroastrian or Patient refused 2021 amish services? 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 [place]: [phone] [place]: [phone] [place]: [phone] [place]: [phone] [place]: [phone] [place]: [phone] Jenaro Headley [facility]: [phone] Andres Laurent [place], [place], or [place] clinics: [phone] [place]:[phone] [place]: [phone] Thank you for trusting your health care to [facility]. documented in this encounter Plan of Treatment Upcoming Encounters Date Type Specialty Care Team Description 09/03/2022 Telemedicine Urology Albert Waller M.D. [address] [place] [phone] (Wo rk) documented as of this encounter Visit Diagnoses Not on filedocumented in this encounter
--- OUTSIDE RECORDS SUMMARY | 2022-08-29 09:00 | XMS_ITS | Encounter Summary ---
:1935 Author Organization [facility] Address [address] [place] [address] Care Team Providers Name Role Phone Elsewhere, Pcp Primary Care Provider Unavailable Reason for Referral MRI/CAT/PET Scan (Routine) - Closed Specialty Diagnoses / Procedures Referred By Contact Refer red To Contact Radiology Diagnoses Malignant Neoplasm Of Bladder (HCC) David Day M.B., [facility] Procedures CT Urogram without and with IV Contrast B.Ch., B.A.O. [address] [place], [place] [address] Referral ID Status Reason Start Date Expiration Date Visits Requ ested Visits Authorized [id number] Closed 02/08/2022 02/08/2023 1 1 Reason for Visit MRI/CAT/PET Scan (Routine) - Closed Specialty Diagnoses / Procedures Referred By Contact Refer red To Contact Radiology Diagnoses Malignant Neoplasm Of Bladder (HCC) David Day M.B., [facility] Procedures CT Urogram without and with IV Contrast B.Ch., B.A.O. [address] [place], [place] [address] Referral ID Status Reason Start Date Expiration Date Visits Requ ested Visits Authorized [id number] Closed 02/08/2022 02/08/2023 1 1 Encounter Details Date Type Department Care Team Description 02/11/2022 Hospital Encounter Department of David Day Malign ant Neoplasm Radiology, Juan Bridges., B.Ch., Of [facility] in B.A.O. [place], [place] [address] [place] [address] [phone] Social History Tobacco Use Types Packs/Day Years [...] you attend presybeterian or Patient refused 2021 temple services? 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 [address] [place], [place] [phone] (Wo rk) documented as of this [...] size upper limits of normal. David Sevilla, B.Tj., B.A.O. IMG CT PROCEDURES documented in this [...] Orders documented in this encounter Care Teams Shelver Relationship Specialty Start Date End Date Elsewhere, Pcp PCP - General Internal Medicine 01/14/22 documented as of this encounter
--- OUTSIDE RECORDS SUMMARY | 2022-08-29 09:00 | XMS_ITS | Encounter Summary ---
:1935 Author Organization [facility] Address [address] [place] [address] Care Team Providers Name Role Phone Elsewhere, Pcp Primary Care Provider Unavailable Encounter Details Date Type Department Care Team Description 02/14/2022 Clinical Communication Department of Urology Lisbeth Nguyen in [facility] [place] [phone] [facility] [facility] ([place]) [place] [address] Social History Tobacco Use Types Packs/Day Years [...] you attend yarsani or Patient refused 2021 methodist services? Do [...] Date Recorded Male 09/10/2018 8:41 AM FISHER NET documented as of this encounter Plan of Treatment Upcoming Encounters Date Type Specialty Care Team Description 09/03/2022 Telemedicine Urology Albert Waller M.D. [address] [place] [address] (Wo rk) documented as of this encounter Visit Diagnoses Not on filedocumented in this encounter Care Teams Teacher Adventure Education Relationship Specialty Start Date End Date Elsewhere, Pcp PCP - General Internal Medicine 01/14/22 documented as of this encounter
--- OUTSIDE RECORDS SUMMARY | 2022-08-29 09:00 | XMS_ITS | Encounter Summary ---
:[address] [facility] Address [address] [place] [address] Care Team Providers Name Role Phone Elsewhere, Pcp Primary Care Provider Unavailable Encounter Details Date Type Department Care Team Description 02/08/2022 Ancillary Procedure Department of David Day Neoplasm Radiology in M, Juan., B.Ch., Of Bladder ( HCC) [place], [place] B.A.O. [address] [facility] [address] [place] [phone] Social History Tobacco Use Types Packs/Day Years [...] you attend confucianist or Patient refused 2021 confucianism services? 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 CIGAR ROLLER documented as of this encounter Plan of Treatment Upcoming Encounters Date Type Specialty Care Team Description 09/03/2022 Telemedicine Urology Albert Waller M.D. [address] [place] [phone] (Wo rk) documented as of this [...] (HCC) documented in this encounter Care Teams Stage Hand Relationship Specialty Start Date End Date Elsewhere, Pcp PCP - General Internal Medicine 01/14/22 documented as of this encounter
--- OUTSIDE RECORDS SUMMARY | 2022-08-29 09:00 | XMS_ITS | Encounter Summary ---
:1935 Author Organization [facility] Address [address] [place] [address] Care Team Providers Name Role Phone Elsewhere, Pcp Primary Care Provider Unavailable Reason for Visit Reason Comments Abnormal Lab Encounter Details Date Type Department Care Team Description 01/14/2022 Emergency [facility] Samanta Barfield, Pablo colón (Primary Dx) Emergency Department M.D. [address] [place] [address] [address] [place] [phone] Social History Tobacco Use Types Packs/Day Years [...] you attend sikh or Patient refused 2021 church services? 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 CHEF SAUCIER documented as of this encounter Last Filed [...] using a point of care test at [place]. Patient had an angiogram last Friday without [...] follow up with his primary provider in [place] where he can continue to have the [...] Waller M.D. [address] [place] [address] (Wo rk) documented as of this [...] MUSE QTC Interval 470 ms MUSE R Racine -8 degrees MUSE T Wave Racine 111 degrees MUSE Specimen Anatomical Collection Method [...] City/State/ZIP Code Phon e Number [facility] - [address] [place], [place] [address] [facility] [place] [address] Laboratories-[facility] 200 [facility] (ABNORMAL) CBC with Differential, Blood (01/14/2022 5:03 PM CDT) [facility] Method Time Signature Hemoglobin 10.4 (L) 13.2 [...] M.D. LAB BLOOD ADD-ON Performing Organization Address City/State/[facility] Code Phon e Number [facility] - 200 [place], [place] [address] [facility] [place] [address] Laboratories-[address] [place] [address] Lipase (01/14/2022 5:03 PM CDT) P athologist Signature Lipase, S 17 13 - 60 U/L 01/14/2022 6:03 DTL PM CDT Specimen Anatomical Collection Method Collection Time Receive d Time (Source) Location / / Volume Laterality Blood (Blood, 01/14/2022 5:03 PM 01/15/20 5:37 Venous) CDT PM CDT Samanta Barfield M.D. LAB BLOOD ADD-ON Performing Organization Address City/State/[facility] Code Phon e Number [facility] - 200 [place], [place] [address] [facility] [place] [address] [address] (ABNORMAL) Hepatic Function Panel (01/14/2022 5:03 [...] City/State/ZIP Code Phon e Number [facility] - 200 [place], [place] [address] [facility] [place] [address] [facility] 200 [facility] (ABNORMAL) Basic Metabolic Panel (01/14/2022 5:03 [...] CDT eGFR-Black/Afric 79 >=60 01/14/2022 DTL an Hungarian mL/min/BSA 6:09 PM CDT Comment: ----ADDITIONAL INFORMATION---- [...] City/State/ZIP Code Phon e Number [facility] - 200 [place], [place] [address] [facility] [place] [address] [facility] [address] ECG 12 Lead (01/14/2022 4:25 PM CDT) P athologist Signature Ventricular Rate 69 BPM MUSE ECG/Min AR Interval 238 ms MUSE QRSD Interval 102 ms MUSE QT Interval 428 ms MUSE QTC Interval 459 ms MUSE P Racine 65 degrees MUSE R Racine -3 degrees MUSE T Wave Racine 83 degrees MUSE Specimen Anatomical Collection Method [...] injection documented in this encounter Care Teams Picture Painter Relationship Specialty Start Date End Date Elsewhere, Pcp PCP - General Internal Medicine 01/14/22 documented as of this encounter
--- OUTSIDE RECORDS SUMMARY | 2022-08-29 09:00 | XMS_ITS | Encounter Summary ---
:1935 Author Organization [facility] Address [address] [place] [address] Care Team Providers Name Role Phone Elsewhere, Pcp Primary Care Provider Unavailable Reason for Referral MRI/CAT/PET Scan (Routine) - Closed Specialty Diagnoses / Procedures Referred By Contact Refer red To Contact Radiology Diagnoses Malignant Neoplasm Of Bladder (HCC) David Day M.B., [facility] Procedures CT Urogram without and with IV Contrast B.Ch., B.A.O. 200 [place] [address] Referral ID Status Reason Start Date Expiration Date Visits Requ ested Visits Authorized [id number] Closed 02/08/2022 02/08/2023 1 1 Reason for Visit Appointment Request (Routine) - Closed Specialty Diagnoses / Procedures Referred By Contact Refer red To Contact Urology Diagnoses Mass Bladder Referral ID Status Reason Start Date Expiration Date Visits Requ ested Visits Authorized [id number] Closed 01/30/2022 01/30/2023 1 1 Encounter Details Date Type Department Care Team Description 02/08/2022 Comprehensive Visit Department of David Day Neoplasm Urology in Roel Heredia, Of Bladder (HCC ) [place], [place] B.Ch., B.A.O. 200 [facility] 200 [place] [phone] Social History Tobacco Use Types Packs/Day Years [...] you attend hindu or Patient refused 2021 temple services? Do you belong to any clubs or No 05/17/2022 organizations such as hindu groups, unions, fraTreasure In The Sand Pizzeria or athletic groups, or school groups? 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 On December [...] Waller M.D. [address] [place] [address] (Wo rk) documented as of this encounter Results CT [...] David Sevilla, B.Tj., B.A.O. IMG CT PROCEDURES Interpretation of Outside [...] (HCC) documented in this encounter Care Teams Cyanide Case Hardener Relationship Specialty Start Date End Date Elsewhere, Pcp PCP - General Internal Medicine 01/14/22 documented as of this encounter
--- OUTSIDE RECORDS SUMMARY | 2022-08-29 09:00 | XMS_ITS | Encounter Summary ---
:1935 Author Organization [facility] Address [address] [place] [address] Care Team Providers Name Role Phone Unavailable Primary Care Provider Unavailable Reason for Visit Appointment Request (Routine) - Closed Specialty Diagnoses / Procedures Referred By Contact Refer red To Contact Nephrology and Slava Edwards Hypertension Asht[facility] [address] [place] [address] Referral ID Status Reason Start Date Expiration Date Visits Requ ested Visits Authorized [id number] Closed 08/03/2020 08/03/2021 1 1 Encounter Details Date Type Department Care Team Description 08/23/2020 External Outreach Division of Nida Castro on And Nephrology and Ross Chiu Jr., Chronic Kidn ey Hypertension in D.O. Disease Stage 1 To 4 [place], [place] [address] [facility] [address] [place] [phone] [phone] Social History Tobacco Use Types Packs/Day Years [...] you attend latter-day or Patient refused 2021 nondenominational services? Do [...] Date Recorded Male 09/10/2018 8:41 AM [employer] ADVIS[employer] documented as of this encounter Progress Notes Ross Castro Jr. D.O. - 08/23/2020 4:00 PM CST NO show Napoleon CKD [employer] documented in this encounter Plan of Treatment Upcoming Encounters Date Type Specialty Care Team Description 09/03/2022 Telemedicine Urology Albert Waller M.D. 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
--- OUTSIDE RECORDS SUMMARY | 2022-08-29 09:00 | XMS_ITS | Encounter Summary ---
:1935 Author Organization [facility] Address [address] [place] [address] Care Team Providers Name Role Phone Elsewhere, Pcp Primary Care Provider Unavailable Reason for Referral MRI/CAT/PET Scan (Routine) - Closed Specialty Diagnoses / Procedures Referred By Contact Refer red To Contact Radiology Diagnoses Mass Bladder Jeanna Aguero M.B., [facility] Procedures CT Abdomen and/or Pelvis Biopsy CT Biopsy Other B.Ch., B.A.O. 200 [place] [address] Referral ID Status Reason Start Date Expiration Date Visits Requ ested Visits Authorized [id number] Closed 02/12/2022 02/12/2023 1 1 utpatient (Routine) - Closed Specialty Diagnoses / Procedures Referred By Contact Refer red To Contact Radiology Diagnoses Hydronephrosis Jeanna Aguero M.B., [facility] Procedures IR Nephrostomy Tube Placement Left B.Ch., B.A.O. 200 [place] [address] Referral ID Status Reason Start Date Expiration Date Visits Requ ested Visits Authorized [id number] Closed 02/12/2022 02/12/2023 1 1 Encounter Details Date Type Department Care Team Description 02/12/2022 Clinical Communication Department of Urology Jeanna Aguero, in Ro[place] Batista, [place], [place] B.A.O. [address] [facility] [address] [place] [phone] Social History Tobacco Use Types Packs/Day Years [...] you attend cheondoism or Patient refused 2021 church services? 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 At this t [facility], we would recommend patient have a nephrostomy [...] appointments to be done locally by his binder operator this week. They are aware that if [...] if possible. Their best callback number is: [phone] Thank you! documented in this encounter Plan of Treatment Upcoming Encounters Date Type Specialty Care Team Description 09/03/2022 Telemedicine Urology Albert Waller M.D. [address] [place] [address] (Wo rk) documented as of this [...] 3. Exchange in 12 weeks. EP Jeanna Sevilla, B.Tj., B.A.O. IMG IR PROCEDURES CT Abdomen and/or [...] taken utilhemanthi ng an 18-gauge biopsy device. ?? TARGET [...] to the target. 6 samples were taken utilbeti ng an 18-gauge biopsy device. TARGET LOCATION: Left bladder mass BIOPSY INSTRUMENT: [address] NUMBER OF SAMPLES OBTAINED: 6 COMPLICATION: None BLOOD LOSS: Minimal PATIENT INSTRUCTIONS: Patient may be dis missed from the radiology department when dismissal criteria met. POST-PROCEDURE DIAGNOSIS: Left bladder m ass IMPRESSION: CT-guided left bladder mass biopsy. EP Jeanna Sevilla, B.Tj., B.A.O. IMG CT PROCEDURES documented in this encounter Visit Diagnoses Diagnosis Hydronephrosis - Primary Mass Bladder Hydronephrosis Malignant Neoplasm Of Bladder (HCC) - Pr imary Mass Bladder Retention Urinary documented in this encounter Care Teams Recovery Room Nurse Relationship Specialty Start Date End Date Elsewhere, Pcp PCP - General Internal Medicine 01/14/22 documented as of this encounter
--- OUTSIDE RECORDS SUMMARY | 2022-08-29 09:00 | XMS_ITS | Encounter Summary ---
:1935 Author Organization [facility] Address [address] [place] [address] Care Team Providers Name Role Phone Elsewhere, Pcp Primary Care Provider Unavailable Encounter Details Date Type Department Care Team Description 02/13/2022 Clinical Communication Department of Urology David Day, in [facility] Juan., B.Ch., [place] B.A.O. [address] [facility] [address] [place] [phone] [phone] Social History Tobacco Use Types Packs/Day Years [...] you attend religion or Patient refused 2021 temple services? 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 [address] [place] [phone] (Wo rk) documented as of this encounter Visit Diagnoses Diagnosis Hydronephrosis - Primary documented in this encounter Care Teams Artificial Breeding Distributor Relationship Specialty Start Date End Date Elsewhere, Pcp PCP - General Internal Medicine 01/14/22 documented as of this encounter
--- OUTSIDE RECORDS SUMMARY | 2022-08-29 09:00 | XMS_ITS | Encounter Summary ---
:1935 Author Organization [facility] Address [address] [place] [address] Care Team Providers Name Role Phone Elsewhere, Pcp Primary Care Provider Unavailable Encounter Details Date Type Department Care Team Description 01/30/2022 Clinical Communication Department of Urology David Day, in [facility] Juan., B.Ch., [place] B.A.O. 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 [address] [place] [phone] (Wo rk) documented as of this [...] Organization Address City/State/ZIP Code Phon e Number [address] [address] [facility] [place] [address] (ABNORMAL) Basic Metabolic Panel (02/07/2022 9:26 AM [...] CDT eGFR-Black/Afri 72 >=60 02/07/2022 [facility] can Haitian mL/min/BSA 11:13 AM CDT Comment: ----ADDITIONAL INFORMATION---- [...] AM 02/08/20 Venous) CDT 10:21 AM CDT Rae Kennedy.Tj., B.A.O. LAB BLOOD ADD-ON Performing Organization Address City/State/ZIP Code Phon e Number [facility] [address] [place], [place] [address] [place] [address] [place] [address] [facility] [address] Albumin (02/07/2022 9:26 AM CDT) P athologist Signature Albumin, P 3.9 3.5 - 5.0 02/07/2022 [facility] g/dL 11:13 AM CDT Specimen Anatomical Collection Method Collection Time Receive d Time (Source) Location / / Volume Laterality Blood (Blood, 02/07/2022 9:26 AM 02/08/20 22 Venous) CDT 10:21 AM CDT Rae KennedyMi, B.A.O. LAB BLOOD ADD-ON Performing Organization Address City/State/ZIP Code Phon e Number [facility]- [address] [place], [place] [address] [facility] [place] [address] (ABNORMAL) CBC with Differential, Blood (02/07/2022 9:26 AM CDT) [facility] Method Time Signature Hemoglobin 9.6 (L) 13.2 [...] Address City/State/ZIP Code Phon e Number [facility]- [address] [place] [address] [place] [address] System in [place] [facility] [facility] documented in this encounter Visit Diagnoses Diagnosis Mass Bladder - Primary documented in this encounter Care Teams Utilization Management Manager Relationship Specialty Start Date End Date Elsewhere, Pcp PCP - General Internal Medicine 01/14/22 documented as of this encounter
--- OUTSIDE RECORDS SUMMARY | 2022-08-29 09:01 | XMS_ITS | Encounter Summary ---
:1935 Author Organization [facility] Address [address] [place] [address] Care Team Providers Name Role Phone Unavailable Primary Care Provider Unavailable Reason for Referral Outpatient (Routine) - Closed Specialty Diagnoses / Procedures Referred By Contact Refer red To Contact Dermatology Aashish Pandey M.D . [facility] [address] [place] [phone] Referral ID Status Reason Start Date Expiration Date Visits Requ ested Visits Authorized [id number] Closed 02/16/2019 02/16/2020 1 1 Reason for Visit Reason Comments Follow-up AK's on face and arms Outpatient (Routine) - Closed Specialty Diagnoses / Procedures Referred By Contact Refer red To Contact Dermatology Aashish Pandey M.D . [address] [phone] Referral ID Status Reason Start Date Expiration Date Visits Requ ested Visits Authorized [id number] Closed 11/24/2018 11/24/2019 1 1 Encounter Details Date Type Department Care Team Description 02/16/2019 Office Visit Department of Aashish Pandey, Cancer [place] Squamous Cell Personal History (Primary Dx); Dermatology in [place] Keratosis [address] [phone] Social History Tobacco Use Types Packs/Day Years [...] you attend amish or Patient refused 2021 pentecostal services? Do you belong to any clubs or No 05/17/2022 organizations such as amish groups, unions, fraEgomotion or athletic groups, or school groups? 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 Hare. 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 The largest of his squamous cell carcinomas involving his left cheek was initially treated with CO2 laser in [place] and then Mohs surgery thereafter. PAST MEDICAL HISTORY 1. 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 Hare at [facility] on 10/27/17 2. [...] this could represent an actinic keratosis or seed cone picker's papule. I recommend treatment with liquid [...] a total of 23 lesion(s) with two 60-03-eksekv freeze-thaw cycles of liquid nitrogen cryoth erapy. [...] post Mohs surgery by Dr. Hare at [facility] on 10/27/17 No evidence for recurrence [...] Albert Waller M.D. [address] [place] [address] (Wo rk) Scheduled Referrals Name Type Priority Associated Order Schedule Diagnoses Dermatology office Outpatient Referral Routine Ex pected: visit (clinic) 02/16/2019 (Approximate), Expires: 02/16/2022 documented as of this encounter Visit Diagnoses Diagnosis Cancer Skin Squamous Cell Personal Histo ry - Primary Keratosis Actinic documented in this encounter
--- OUTSIDE RECORDS SUMMARY | 2022-08-29 09:01 | XMS_ITS | Encounter Summary ---
:1935 Author Organization [facility] Address [address] [place] [address] Care Team Providers Name Role Phone Unavailable Primary Care Provider Unavailable Reason for Visit Appointment Request (Routine) - Closed Specialty Diagnoses / Procedures Referred By Contact Refer red To Contact Procedures Aashish Pandey M.D. [facility] 1-[address] sites [address] [place] [phone] Referral ID Status Reason Start Date Expiration Date Visits Requ ested Visits Authorized [id number] Closed 07/12/2019 07/11/2020 1 Encounter Details Date Type Department Care Team Description 07/27/2019 Procedure visit Department of Khadar Juarez, Keratosi s Actinic (Primary Dx); Dermatology in M.D. Malignant Neoplasm Of Face Squamous Cell [place], [place] [address] [facility] [address] [place] [phone] Social History Tobacco Use Types Packs/Day Years [...] you attend methodist or Patient refused 2021 baptism services? 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 Juarez Slate Roofer Helper: Dr. 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 [address] [place] [address] (Wo rk) documented as of this encounter Visit Diagnoses Diagnosis Keratosis Actinic - Primary Malignant Neoplasm Of Face Squamous Cell documented in this encounter Administered Medications Inactive Administered Medications - up to 3 most recent administrations Medication Order MAR Action Action Date Dose Rate Site ckmludzohas-tiqihaglr-EGHWPWKziqj Given 07/27/2019 9:35 AM CDT 2 mL 0.25%-1%-1:200,000 injection 2-25 mL 2-25 mL, injection, As needed, may repeat if the patient complains of pain/discomfort at the site up to 50 mL for entire procedure, Starting on Tu07/27/19 at 0837 lidocaine-EPINEPHrine 1%-1:200,000 injection Given 07/27/2019 8: 30 AM CDT 6 mL 2-50 mL (XYLOCAINE W/EPI) 2-50 mL, injection, As needed, may repeat if the patient complains of pain/discomfort at the site up to 50 mL for entire procedure, Starting on Fri07/27/19 at 0837 documented in this encounter
--- OUTSIDE RECORDS SUMMARY | 2022-08-29 09:01 | XMS_ITS | Encounter Summary ---
:1935 Author Organization [facility] Address [address] [place] [address] Care Team Providers Name Role Phone Unavailable [...] you attend latter-day or Patient refused 2021 rastafari services? 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 [address] [place] [phone] (Wo rk) documented as of this [...]
--- OUTSIDE RECORDS SUMMARY | 2022-08-29 09:01 | XMS_ITS | Encounter Summary ---
:1935 Author Organization [facility] Address [address] [place] [address] Care Team Providers Name Role Phone Unavailable Primary Care Provider Unavailable Encounter Details Date Type Department Care Team Description 04/13/2019 Clinical Communication Department of Shanta Pena V., Dermatology in [address] [phone] Social History Tobacco Use Types Packs/Day Years [...] you attend anabaptist or Patient refused 2021 christian services? 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 [address] [place] [address] (Wo ) documented as of this encounter Visit Diagnoses Not on filedocumented in this encounter
--- OUTSIDE RECORDS SUMMARY | 2022-08-29 09:01 | XMS_ITS | Encounter Summary ---
:1935 Author Organization [facility] Address [address] [place] [address] Care Team Providers Name Role Phone Unavailable Primary Care Provider Unavailable Reason for Visit Reason Comments Skin Check Encounter Details Date Type Department Care Team Description 06/02/2018 Office Visit Department of Aashish Pandey, Keratosis Actinic (Primary Dx); Dermatology in [place] [facility]; [place], [place] [address] [facility] [[email or web address]] Keratosis Seborrheic; [address] [place] [address] Cancer Skin Squamous [place] [phone] Social History Tobacco Use Types Packs/Day [...] you attend moravian or Patient refused 2021 lutheran services? 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 Hare. 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 The squamous cell carcinoma involving his left cheek was treated initially with CO2 laser in [place] and then Mohs surgery thereafter. He also has a history of squamous cell carcinomas involving his right infraorbital area, left eyebrow, and right nasal dorsum, all treated with Mohs surgery at [facility] in October 2017. Today he has one [...] all treated with Mohs surgery at [facility] in October 2017 PHYSICAL EXAM General: Awake, [...] Care Team Description 09/03/2022 Telemedicine Urology Albert Wallre M.D. [address] [place] [phone] (Wo rk) documented as of this encounter Visit Diagnoses Diagnosis Keratosis Actinic - Primary Nevi Multiple Keratosis Seborrheic Cancer Skin Squamous Cell Personal Histo ry documented in this encounter
--- OUTSIDE RECORDS SUMMARY | 2022-08-29 09:01 | XMS_ITS | Encounter Summary ---
:1935 Author Organization [facility] Address [address] [place] [address] Care Team Providers Name Role Phone Unavailable Primary Care Provider Unavailable Encounter Details Date Type Department Care Team Description 06/07/2019 Orders Only Department of Aashish Pandey, Law [place] n (Primary Dermatology in [place] ) [address] [phone] Social History Tobacco Use Types Packs/Day Years [...] you attend orthodox or Patient refused 2021 moravian services? 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 [address] [place] [phone] (Wo rk) Scheduled Orders Name Type Priority Associated Diagnoses Order S chedule Dermatology misc minor Dermatology Routine Lesion Skin Expec kathleen: 06/29/2019 procedure (Approximate), Expires: 2021 documented as of this encounter Visit Diagnoses Diagnosis Lesion Skin - Primary documented in this encounter
--- OUTSIDE RECORDS SUMMARY | 2022-08-29 09:01 | XMS_ITS | Encounter Summary ---
:1935 Author Organization [facility] Address [address] [place] [address] Care Team Providers Name Role Phone Unavailable [...] you attend anabaptism or Patient refused 2021 roman catholic services? 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 [address] [place] [phone] (Wo rk) documented as of this [...]
--- OUTSIDE RECORDS SUMMARY | 2022-08-29 09:01 | XMS_ITS | Encounter Summary ---
:1935 Author Organization [facility] Address [address] [place] [address] Care Team Providers Name Role Phone Unavailable Primary Care Provider Unavailable Reason for Visit Reason Comments Biopsy Encounter Details Date Type Department Care Team Description 05/25/2019 Procedure visit Department of Aashish Pandey Tumor Skin Uncertain Behavior (Primary Dx); Dermatology in [place] M.D. Keratosis Actinic; [place], [place] [address] [facility] Keratosis Seborrheic Inflamed [address] [place] [phone] Social History Tobacco Use Types Packs/Day Years [...] you attend scientologist or Patient refused 2021 latter day services? 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 The largest of his squamous cell carcinomas involving his left cheek was initially treated with CO2 laser in [place] and then Mohs surgery thereafter. 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 Patient given pamphlet [id number]. Discussed the risks, benefits, alternatives, and the necessity of other members of the healthcare team participating in the procedure. All questions answered and consent given. #2 Left preauricular: Rule out basal cell carcinoma versus pickers material handlers's papule We recommend a shave biopsy of [...] the patient by letter. Patient given pamphlet [id number]. Discussed the risks, benefits, alternatives, and the [...] a total of 14 lesion(s) with two 14-77-eziylv freeze-thaw cycles of liquid nitrogen cryoth erapy. [...] a total of 1 lesion(s) with two 22-24-qnudsa freeze-thaw cycles of liquid nitrogen cryotherapy. The [...] transected. I have recommended Mohs surgery at [facility]. Patient is very adamant about not going down to [facility] and would like me to treat these lesions. I discussed with him that the optimal treatment is the Mohs surgery and he understands but does not want to go havethis done. Subsequently, he will return to [place] where we will do further shave biopsies [...] surgery at this time. An appointment for [facility] was placed today. documented in this encounter Plan of Treatment Upcoming Encounters Date Type Specialty Care Team Description 09/03/2022 Telemedicine Urology Albert Waller M.D. [address] [place] [phone] (Wo rk) documented as of this [...] is a 0.5 x 0.4 cm pale idb-puknlf-zljjt, slightly raised, firm lesion with irregular borders encompassing nearly the entire skin surface. ??The specimen is bisected and submitted entirely in cassette B1. Grossed by AV. Antonio Valdez 05/28/2019 electronically Macario Cisneros 5:01 PM CDT [...] Address City/State/ZIP Code Phon e Number [facility] - [address] documented in this encounter Visit Diagnoses [...]
--- OUTSIDE RECORDS SUMMARY | 2022-08-29 09:01 | XMS_ITS | Encounter Summary ---
:1935 Author Organization [facility] Address [address] [place] [address] Care Team Providers Name Role Phone Unavailable [...] you attend spiritism or Patient refused 2021 adventist services? 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 [address] [place] [phone] (Wo rk) documented as of this [...]
--- OUTSIDE RECORDS SUMMARY | 2022-08-29 09:01 | XMS_ITS | Encounter Summary ---
:1935 Author Organization [facility] Address [address] [place] [address] Care Team Providers Name Role Phone Unavailable Primary Care Provider Unavailable Reason for Referral Appointment Request (Routine) - Closed Specialty Diagnoses / Procedures Referred By Contact Refer red To Contact Procedures Aashish Pandey M.D. [facility] 1-[address] sites [address] [place] [phone] Referral ID Status Reason Start Date Expiration Date Visits Requ ested Visits Authorized [id number] Closed 07/12/2019 07/11/2020 1 Encounter Details Date Type Department Care Team Description 07/12/2019 Orders Only Department of Aashish Pandey, Malignant Neoplasm Of Dermatology in [place] Face Squamous Cell [address] (Primary Dx) [address] [place] [phone] Social History Tobacco Use Types Packs/Day Years [...] you attend druze or Patient refused 2021 orthodox services? Do you belong to any clubs or No 05/17/2022 organizations such as druze groups, unions, [employer] or athletic groups, or school groups? 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
--- OUTSIDE RECORDS SUMMARY | 2022-08-29 09:01 | XMS_ITS | Encounter Summary ---
:1935 Author Organization [facility] Address [address] [place] [address] Care Team Providers Name Role Phone Unavailable Primary Care Provider Unavailable Reason for Visit Reason Comments Skin Check Outpatient (Routine) - Closed Specialty Diagnoses / Procedures Referred By Contact Refer red To Contact Dermatology Aashish Pandey M.D . [facility] Region [address] [place] [address] Referral ID Status Reason Start Date Expiration Date Visits Requ ested Visits Authorized [id number] Closed 02/16/2019 02/16/2020 1 1 Encounter Details Date Type Department Care Team Description 04/19/2019 Office Visit Department of Aashish Pandey, Tumor Skin Uncertain Behavior (Primary Dx); Dermatology in [place] Keratosis [place], [place] [address] [place] [phone] Social History Tobacco Use Types Packs/Day Years [...] you attend sikh or Patient refused 2021 episcopalian services? 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 Hare. 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 The largest of his squamous cell carcinomas involving his left cheek was initially treated with CO2 laser in [place] and then Mohs surgery thereafter. MEDICAL HISTORY 1. 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 Hare??at [facility] on 10/27/17 2. Squamous cell carcinoma [...] a total of 27 lesion(s) with two 13-68-srreum freeze-thaw cycles of liquid nitrogen cryoth erapy. [...] surgery by Dr. Hare??at [facility] on 10/27/17 ?? No evidence for [...] Waller M.D. [address] [place] [address] (Wo rk) Scheduled Orders Name Type Priority Associated Diagnoses Order S chedule Dermatology misc minor Dermatology Routine Tumor Skin Uncerta in Expected: procedure Behavior 05/25/2019 (Approximate), Expires: 2021 documented as of this encounter Visit Diagnoses Diagnosis Tumor Skin Uncertain Behavior - Primary Keratosis Actinic documented in this encounter
--- OUTSIDE RECORDS SUMMARY | 2022-08-29 09:01 | XMS_ITS | Encounter Summary ---
:1935 Author Organization [facility] Address [address] [place] [address] Care Team Providers Name Role Phone Unavailable Primary Care Provider Unavailable Reason for Visit Reason Onset Date Comments Derm schedule 09/14/2018 Encounter Details Date Type Department Care Team Description 09/14/2018 Clinical Communication Department of Becky Trinidad [facility] Medicine, Kimper Ashtyn Newby [facility], in [address] [address] [place], [place] [phone] (Work) [phone] Social History Tobacco Use Types Packs/Day Years [...] you attend confucianism or Patient refused 2021 orthodoxy services? 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 - 09/15/2018 5:48 PM CST Discussed with Dr. Pandey and he would like to open a procedure appointment slot on Friday11/24/18 at 8am to see this patient. Will ask the Appointment Office to reach out to the patient to schedule this appointment. SERVICE AGENT Telephone Encounter - Brii Heller - 09/14/2018 9:25 AM CST Pt. Was seen by Katherin today 09/14. Says he needs to be seen in 2 to 3 months. But first available isn't until 01/05. Which is about 3 and a half months. Please let me know when to schedule this patient and I will call him to get it scheduled. SERVICE AGENT documented in this encounter Plan of Treatment Upcoming Encounters Date Type Specialty Care Team Description 09/03/2022 Telemedicine Urology Albert Waller M.D. [address] [place] [phone] (Wo rk) documented as of this encounter Visit Diagnoses Not on filedocumented in this encounter
--- OUTSIDE RECORDS SUMMARY | 2022-08-29 09:01 | XMS_ITS | Encounter Summary ---
:1935 Author Organization [facility] Address [address] [place] [address] Care Team Providers Name Role Phone Unavailable Primary Care Provider Unavailable Reason for Referral Outpatient (Routine) - Closed Specialty Diagnoses / Procedures Referred By Contact Refer red To Contact Dermatology Aashish Pandey M.D . [facility] Region [address] [place] [address] Referral ID Status Reason Start Date Expiration Date Visits Requ ested Visits Authorized [id number] Closed 09/14/2018 09/14/2019 1 1 NGUAL HR GENERALIST Reason for Visit Reason Comments Actinic Keratosis Encounter Details Date Type Department Care Team Description 09/14/2018 Office Visit Department of Aashish Pandey, Keratosis Actinic (Primary Dx); Dermatology in [place] Keratosis Seborrheic; [place], [place] 200 [facility] Cancer Skin Squamous Cell Personal Histo ry [address] [place] [phone] Social History Tobacco Use Types Packs/Day Years [...] you attend hinduism or Patient refused 2021 muslim services? Do you belong to any clubs or No 05/17/2022 organizations such as hinduism groups, unions, [employer] or athletic groups, or school groups? 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 Hare. 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 The patient does not use sunscreen. The largest of his squamous cell carcinomas involving his left cheek was initially treated with CO2 laser in [place] and then Mohs surgery thereafter. He has also had squamous cell carcinomas as noted above involving his face and more specifically the right infraorbital area, left eyebrow, and right nasal dorsum all treated with Mohs surgery [place] in October 2017. PAST MEDICAL HISTORY 1. 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 Squamous cell carcinoma [...] Aashish Pandey M.D. . 09/14/2018. 8:26 AM. NGUAL HR GENERALIST documented in this encounter Plan of Treatment Upcoming Encounters Date Type Specialty Care Team Description 09/03/2022 Telemedicine Urology Albert Waller M.D. [address] [place] [phone] (Wo rk) Scheduled Referrals Name Type Priority Associated Order Schedule Diagnoses Dermatology office Outpatient Referral Routine Ex pected: visit (clinic) 12/15/2018 (Approximate), Expires: 09/14/2021 documented as of this encounter Visit Diagnoses Diagnosis Keratosis Actinic - Primary Keratosis Seborrheic Cancer Skin Squamous Cell Personal Histo ry documented in this encounter
--- OUTSIDE RECORDS SUMMARY | 2022-08-29 09:01 | XMS_ITS | Encounter Summary ---
:1935 Author Organization [facility] Address [address] [place] [address] Care Team Providers Name Role Phone Unavailable Primary Care Provider Unavailable Reason for Visit Reason Onset Date Comments biopsy results 06/07/2019 Encounter Details Date Type Department Care Team Description 06/07/2019 Clinical Communication Department of Becky Trinidad biopsy results Medicine, [place] Newby M.D. [facility], in [address] [place] [phone] [place] [address] [place], [place] (Work) [phone] Social History Tobacco Use [...] you attend hindu or Patient refused 2021 quaker services? 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 Please call her at [phone] documented in this encounter Plan of Treatment Upcoming Encounters Date Type Specialty Care Team Description 09/03/2022 Telemedicine Urology Albert Waller M.D. [address] [place] [phone] (Wo rk) documented as of this encounter Visit Diagnoses Not on filedocumented in this encounter
--- OUTSIDE RECORDS SUMMARY | 2022-08-29 09:01 | XMS_ITS | Encounter Summary ---
:1935 Author Organization [facility] Address [address] [place] [address] Care Team Providers Name Role Phone Unavailable Primary Care Provider Unavailable Reason for Visit Reason Comments Biopsy Encounter Details Date Type Department Care Team Description 06/29/2019 Procedure visit Department of Aashish Pandey (Primary Dx); Dermatology in [place] M.D. Keratosis [place], [place] [address] [place] [phone] Social History Tobacco Use Types Packs/Day Years [...] attend oriental orthodox or Patient refused 2021 confucianism services? 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 The patient was very adamant about not going down to [facility] and would like me to treat [...] dorsum all treated with Mohs surgery at [facility] on10/27/17. The largest of his squamous cell carcinomas involving his left cheek was initially treated with CO2 laser in [place] and then Mohs surgery thereafter. 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 in on 12/10/17??under the care of Dr. Hare. MEDICAL HISTORY 1. 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 Hare??at [facility] on 10/27/17 2. Squamous cell carcinoma [...] which he refused to go down to [place] to have this done. Subsequently, we recommend [...] he is not willing to travel to [facility] at this time. PROCEDURAL PAUSE: Procedural [...] the patient by letter. Patient given pamphlet [id number]. Discussed the risks, benefits, alternatives, and the necessity of other members of the healthcare team participating in the procedure. All questions answered and consent given. #2 Left preauricular: Squamous cell carcinoma, superficially transected As noted above, we had recommended Mohs surgery for this squamous cell carcinoma. However, he refused to go to [place] to have the Mohs surgery done. Subsequently, [...] he is not willing to travel to [facility] at this time. PROCEDURAL PAUSE: Procedural [...] the patient by letter. Patient given pamphlet [id number]. Discussed the risks, benefits, alternatives, and the [...] require further treatment with Mohs surgery in [place]. He knowswhat to expect with the Mohs surgery and subsequently I have placed an order to have this done. I have asked him to follow up with me in the next few months and he states he already has an appointment.They requested that the [place] appointment office call them with regards to the Mohs surgery date and time and I told him I would put that on the request. I have asked them to call me if they have not heard back from our appointment office in [place] within a week or if the surgery date is more than 4-6 weeks from now. They are appreciative of the phone call. All questions answered. documented in this encounter Plan of Treatment Upcoming Encounters Date Type Specialty Care Team Description 09/03/2022 Telemedicine Urology Albert Waller M.D. [address] [place] [phone] (Wo rk) documented as of [...] City/State/ZIP Code Phon e Number [facility] - [address] documented in this encounter Visit Diagnoses [...]
--- OUTSIDE RECORDS SUMMARY | 2022-08-29 09:01 | XMS_ITS | Encounter Summary ---
:1935 Author Organization [facility] Address [address] [place] [address] Care Team Providers Name Role Phone Unavailable [...] attend jehovah's witness or Patient refused 2021 protestant services? 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 [address] [place] [phone] (Wo rk) documented as of this [...]
--- OUTSIDE RECORDS SUMMARY | 2022-08-29 09:01 | XMS_ITS | Encounter Summary ---
:1935 Author Organization [facility] Address [address] [place] [address] Care Team Providers Name Role Phone Unavailable Primary Care Provider Unavailable Encounter Details Date Type Department Care Team Description 08/02/2019 Clinical Communication Department of Shanta Pena V., Dermatology in [address] [phone] Social History Tobacco Use Types Packs/Day Years [...] attend jehovah's witness or Patient refused 2021 buddhist services? 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 [address] [place] [phone] (Wo rk) documented as of this encounter Visit Diagnoses Not on filedocumented in this encounter
--- OUTSIDE RECORDS SUMMARY | 2022-08-29 09:01 | XMS_ITS | Encounter Summary ---
:1935 Author Organization [facility] Address [address] [place] [address] Care Team Providers Name Role Phone Unavailable [...] you attend shinto or Patient refused 2021 jain services? 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 [address] [place] [phone] (Wo rk) documented as of this [...]
--- OUTSIDE RECORDS SUMMARY | 2022-08-29 09:01 | XMS_ITS | Encounter Summary ---
:1935 Author Organization [facility] Address [address] [place] [address] Care Team Providers Name Role Phone Unavailable [...] you attend jain or Patient refused 2021 episcopalian services? 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 [address] [place] [phone] (Wo rk) documented as of this [...]
--- OUTSIDE RECORDS SUMMARY | 2022-08-29 09:01 | XMS_ITS | Encounter Summary ---
:[address] [facility] Address [address] [place] [address] Care Team Providers Name Role Phone Unavailable [...] you attend christian or Patient refused 2021 scientology services? 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 [address] [place], [place] [phone] (Wo rk) documented as of this encounter Procedures Procedure Name Priority Date/Time Associated Comments Diagnosis DERMATOLOGY IMAGE Routine 12/10/2017 12:00 Result s for this EXAM PM GLASS FINISHER procedure are i n the results section. documented in this encounter Results DERMATOLOGY IMAGE EXAM (12/10/2017 12:00 PM GLASS FINISHER) Specimen (Source) Anatomical Collection Method Collection Time Re ceived Time Location / / Volume Laterality 12/10/2017 12:00 PM GLASS FINISHER Narrative [facility] - 12/10/2017 3:55 PM GLASS FINISHER This order has been created and auto-finalized [...]
--- OUTSIDE RECORDS SUMMARY | 2022-08-29 09:01 | XMS_ITS | Encounter Summary ---
:1935 Author Organization [facility] Address [address] [place] [address] Care Team Providers Name Role Phone Unavailable [...] you attend holiness or Patient refused 2021 oriental orthodox services? 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 [address] [place] [phone] (Wo rk) documented as of this [...]
--- OUTSIDE RECORDS SUMMARY | 2022-08-29 09:01 | XMS_ITS | Encounter Summary ---
:1935 Author Organization [facility] Address [address] [place] [address] Care Team Providers Name Role Phone Unavailable Primary Care Provider Unavailable Reason for Referral Outpatient (Routine) - Closed Specialty Diagnoses / Procedures Referred By Contact Refer red To Contact Dermatology Aashish Pandey M.D . [address] [phone] Referral ID Status Reason Start Date Expiration Date Visits Requ ested Visits Authorized [id number] Closed 11/24/2018 11/24/2019 1 1 Scheduling Instructions Recheck a Ks and squamous cell carcinoma FridayFebruary 16 8-830 a.m. M MAKER Reason for Visit Reason Comments Skin Check face and arms Outpatient (Routine) - Closed Specialty Diagnoses / Procedures Referred By Contact Refer red To Contact Dermatology Aashish Pandey M.D . [facility] Region [address] [place] [phone] Referral ID Status Reason Start Date Expiration Date Visits Requ ested Visits Authorized [id number] Closed 09/14/2018 09/14/2019 1 1 Encounter Details Date Type Department Care Team Description 11/24/2018 Office Visit Department of Aashish Pandey, Keratosis Actinic (Primary Dx); Dermatology in [place] Keratosis Seborrheic; [place], [place] [address] [place] [address] Cancer Skin Squamous [place] [address] [phone] Social History Tobacco Use Types Packs/Day [...] you attend hoahaoism or Patient refused 2021 faith services? 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 on 10/27/17. The largest of his squamous cell carcinomas involving his left cheek was initially treated with CO2 laser in [place] and then Mohs surgery thereafter. ?? Allergies Allergen Reactions ??? Penicillins Anaphylaxis PAST MEDICAL HISTORY 1. 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 Hare at [facility] on 10/27/17 2. Squamous cell carcinoma [...] a total of 33 lesion(s) with two 54-01-[id number] freeze-thaw cycles of liquid nitrogen cryoth erapy, [...] post Mohs surgery by Dr. Hare at [facility] on 10/27/17 No evidence for recurrence of [...] Aashish Pandey M.D. . 11/24/2018. 8:32 AM. M MAKER documented in this encounter Plan of Treatment Upcoming Encounters Date Type Specialty Care Team Description 09/03/2022 Telemedicine Urology Albert Waller M.D. [address] [place] [phone] (Wo rk) Scheduled Referrals Name Type Priority Associated Order Schedule Diagnoses Dermatology office Outpatient Referral Routine Ex pected: visit (clinic) 02/16/2019 (Approximate), Expires: 11/24/2021 documented as of this encounter Visit Diagnoses Diagnosis Keratosis Actinic - Primary Keratosis Seborrheic Cancer Skin Squamous Cell Personal Histo ry documented in this encounter
--- OUTSIDE RECORDS SUMMARY | 2022-08-29 09:01 | XMS_ITS | Encounter Summary ---
:1935 Author Organization [facility] Address [address] [place] [address] Care Team Providers Name Role Phone Unavailable Primary Care Provider Unavailable Encounter Details Date Type Department Care Team Description 12/10/2017 Hospital Encounter HX RST DERM SURG OP [facility] Ra yandel Hare M.D. [address] [place] [phone] (Wo rk) Social History Tobacco Use Types [...] you attend episcopalian or Patient refused 2021 taoist services? Do [...] RESOURCE INTERNSHIP documented as of this encounter Last Filed Vital Signs Vital Sign Reading Time Taken Comments Blood Pressure 122/70 12/10/2017 1:15 PM HUMAN RESOURCE INTERNSHIP Vital sign result from Clinical Notes. Pulse 66 12/10/2017 1:15 PM HUMAN RESOURCE INTERNSHIP Vital sign result from Clinical Notes. Temperature [...] by mouth daily. 1 500 mg on Mon-Thurs 0 10/27/2017 mg capsule 2000 mg on Fri-Fri omeprazole (PriLOSEC) 20 Take 1 capsule by 0 01/19 mg capsule mouth daily. documented as of this encounter Plan of Treatment Upcoming Encounters Date Type Specialty Care Team Description 09/03/2022 Telemedicine Urology Albert Waller M.D. [address] [place], [place] [phone] (Wo rk) documented as of this encounter Visit Diagnoses Not on filedocumented in this encounter
--- OUTSIDE RECORDS SUMMARY | 2022-08-29 09:01 | XMS_ITS | Encounter Summary ---
:1935 Author Organization [facility] Address [address] [place] [address] Care Team Providers Name Role Phone Unavailable Primary Care Provider Unavailable Reason for Referral Outpatient (Routine) - Closed Specialty Diagnoses / Procedures Referred By Contact Refer red To Contact Dermatology Aashish Pandey M.D . [facility] Region [address] [place] [phone] Referral ID Status Reason Start Date Expiration Date Visits Requ ested Visits Authorized [id number] Closed 08/03/2019 08/02/2020 1 1 Reason for Visit Reason Comments Follow-up Appointment Request (Routine) - Closed Specialty Diagnoses / Procedures Referred By Contact Refer red To Contact Dermatology Referral ID Status Reason Start Date Expiration Date Visits Requ ested Visits Authorized [id number] Closed 05/25/2019 05/24/2020 1 Encounter Details Date Type Department Care Team Description 08/03/2019 Office Visit Department of Aashish Pandey, Keratosis Actinic (Primary Dx); Dermatology in [place] Cancer Skin Squamous Cell Personal Histo [place], [place] [address] [place] [phone] Social History Tobacco Use Types Packs/Day Years [...] you attend jew or Patient refused 2021 temple services? Do you belong to any clubs or No 05/17/2022 organizations such as jew groups, unions, fraSalesfusion or athletic groups, or school groups? 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 Juarez at [facility]. 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 The largest of his squamous cell carcinomas involving his left cheek was initially treated with CO2 laser in [place] and then Mohs surgery thereafter. 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 Hare. MEDICAL HISTORY 1. 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 Hare??at [facility] on 10/27/17 2. Squamous cell [...] surgery on 07/27/[address] Juarez at [facility] OBJECTIVE PHYSICAL EXAMINATION General: Awake, alert, in [...] a total of 29 lesion(s) with two 07-46-vjbjbg freeze-thaw cycles of liquid nitrogen cryoth erapy. [...] surgery on 07/27/[address] Juarez at [facility] No clinical evidence of local recurrence today. [...] of thecontent. By signing my name below, IDavion, attest that this documentation has been prepared under thedirection and in the presence of Aashsih Pandey M.D. Electronically Signed: cookie Kelly. 08/03/2019. [...] Urology Albert Waller M.D. [address] [place] [phone] (Wo rk) Scheduled Referrals Name Type Priority Associated Order Schedule Diagnoses Dermatology office Outpatient Referral Routine Ex pected: visit (clinic) 08/03/2019 (Approximate), Expires: 08/03/2022 documented as of this encounter Visit Diagnoses Diagnosis Keratosis Actinic - Primary Cancer Skin Squamous Cell Personal Histo ry documented in this encounter
--- OUTSIDE RECORDS SUMMARY | 2022-08-29 09:02 | XMS_ITS | Encounter Summary ---
:1935 Author Organization [facility] Address [address] [place] [address] Care Team Providers Name Role Phone Unavailable [...] you attend denominational or Patient refused 2021 sabianist services? 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 [address] [place], [place] [phone] (Wo rk) documented as of this encounter Procedures Procedure Name Priority Date/Time Associated Comments Diagnosis DERMATOLOGY IMAGE Routine 10/27/2017 12:10 Result s for this EXAM PM BROOD HATCHERY MANAGER procedure are i n the results section. documented in this encounter Results DERMATOLOGY IMAGE EXAM (10/27/2017 12:10 PM BROOD HATCHERY MANAGER) Specimen (Source) Anatomical Location Collection Method / Collectio n Time Received Time / Laterality Volume Narrative IIMS - 10/27/2017 4:43 PM BROOD HATCHERY MANAGER This order has been created and auto-finalized [...]
--- OUTSIDE RECORDS SUMMARY | 2022-08-29 09:02 | XMS_ITS | Encounter Summary ---
:1935 Author Organization [facility] Address [address] [place] [address] Care Team Providers Name Role Phone Unavailable [...] you attend mormonism or Patient refused 2021 moravian services? 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 CAPTAIN CANNERY TENDER documented as of this encounter Plan of Treatment Upcoming Encounters Date Type Specialty Care Team Description 09/03/2022 Telemedicine Urology Albert Waller M.D. [address] [place], [place] [phone] (Wo rk) documented as of this encounter Procedures Procedure Name Priority Date/Time Associated Comments Diagnosis DERMATOLOGY IMAGE Routine 10/27/2017 12:20 Result s for this EXAM PM CAPTAIN CANNERY TENDER procedure are i n the results section. documented in this encounter Results DERMATOLOGY IMAGE EXAM (10/27/2017 12:20 PM CAPTAIN CANNERY TENDER) Specimen (Source) Anatomical Location Collection Method / Collectio n Time Received Time / Laterality Volume Narrative IIMS - 10/27/2017 4:43 PM CAPTAIN CANNERY TENDER This order has been created and [...]
--- OUTSIDE RECORDS SUMMARY | 2022-08-29 09:02 | XMS_ITS | Encounter Summary ---
:1935 Author Organization [facility] Address [address] [place] [address] Care Team Providers Name Role Phone Unavailable [...] you attend caodaism or Patient refused 2021 episcopal services? 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 [address] [place], [place] [phone] (Wo rk) documented as of this encounter Procedures Procedure Name Priority Date/Time Associated Comments Diagnosis DERMATOLOGY IMAGE Routine 10/27/2017 12:00 Result s for this EXAM PM PUSH CONNECTOR ASSEMBLER procedure are i n the results section. documented in this encounter Results DERMATOLOGY IMAGE EXAM (10/27/2017 12:00 PM PUSH CONNECTOR ASSEMBLER) Specimen (Source) Anatomical Location Collection Method / Collectio n Time Received Time / Laterality Volume Narrative IIMS - 10/27/2017 4:43 PM PUSH CONNECTOR ASSEMBLER This order has been created and auto-finalized [...]
--- OUTSIDE RECORDS SUMMARY | 2022-08-29 09:02 | XMS_ITS | Encounter Summary ---
:1935 Author Organization [facility] Address [address] [place] [address] Care Team Providers Name Role Phone Unavailable Primary Care Provider Unavailable Encounter Details Date Type Department Care Team Description 02/12/2016 Hospital Encounter HX RST DERM SURG OP [facility] Ra yandel Hare M.D. [address] [place] [phone] (Wo rk) Social History Tobacco Use Types [...] you attend pentecostalism or Patient refused 2021 moravian services? 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 MANUFACTURING TECH documented as of this encounter Last Filed [...] Albert Waller M.D. [address] [place] [phone] (Wo rk) documented as of this encounter Visit Diagnoses Not on filedocumented in this encounter
--- OUTSIDE RECORDS SUMMARY | 2022-08-29 09:02 | XMS_ITS | Encounter Summary ---
:1935 Author Organization [facility] Address [address] [place] [address] Care Team Providers Name Role Phone Unavailable [...] you attend temple or Patient refused 2021 pentecostal services? 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 MOLD UNLOADER documented as of this encounter Plan of Treatment Upcoming Encounters Date Type Specialty Care Team Description 09/03/2022 Telemedicine Urology Albert Waller M.D. [address] [place], [place] [phone] (Wo rk) documented as of this encounter Procedures Procedure Name Priority Date/Time Associated Comments Diagnosis DERMATOLOGY IMAGE Routine 10/27/2017 12:05 Result s for this EXAM PM MOLD UNLOADER procedure are i n the results section. documented in this encounter Results DERMATOLOGY IMAGE EXAM (10/27/2017 12:05 PM MOLD UNLOADER) Specimen (Source) Anatomical Location Collection Method / Collectio n Time Received Time / Laterality Volume Narrative IIMS - 10/27/2017 4:43 PM MOLD UNLOADER This order has been created and auto-finalized [...]
--- OUTSIDE RECORDS SUMMARY | 2022-08-29 09:02 | XMS_ITS | Encounter Summary ---
:1935 Author Organization [facility] Address [address] [place] [address] Care Team Providers Name Role Phone Unavailable [...] you attend pentecostal or Patient refused 2021 alevism services? 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 REGIONAL MANAGER documented as of this encounter Plan of Treatment Upcoming Encounters Date Type Specialty Care Team Description 09/03/2022 Telemedicine Urology Albert Waller M.D. [address] [place], [place] [phone] (Wo rk) documented as of this encounter Procedures Procedure Name Priority Date/Time Associated Comments Diagnosis DERMATOLOGY IMAGE Routine 10/27/2017 12:15 Result s for this EXAM PM REGIONAL MANAGER procedure are i n the results section. documented in this encounter Results DERMATOLOGY IMAGE EXAM (10/27/2017 12:15 PM REGIONAL MANAGER) Specimen (Source) Anatomical Location Collection Method / Collectio n Time Received Time / Laterality Volume Narrative IIMS - 10/27/2017 4:43 PM REGIONAL MANAGER This order has been created and [...]
--- OUTSIDE RECORDS SUMMARY | 2022-08-29 09:02 | XMS_ITS | Encounter Summary ---
:1935 Author Organization [facility] Address [address] [place] [address] Care Team Providers Name Role Phone Unavailable Primary Care Provider Unavailable Encounter Details Date Type Department Care Team Description 10/27/2017 Hospital Encounter HX RST DERM SURG OP [facility] Ra yandel Hare M.D. [address] [place] [phone] (Wo rk) Social History Tobacco Use Types [...] you attend mormon or Patient refused 2021 hoahaoism services? Do [...] Date Recorded Male 09/10/2018 8:41 AM TRACK GRINDER documented as of this encounter Last Filed Vital Signs Vital Sign Reading Time Taken Comments Blood Pressure 135/75 10/27/2017 8:00 AM TRACK GRINDER Vital sign result from Clinical Notes. Pulse 71 10/27/2017 8:00 AM TRACK GRINDER Vital sign result from Clinical Notes. Temperature [...] M.D. [address] [place], [place] [phone] (Wo rk) documented as of this encounter Visit Diagnoses Not on filedocumented in this encounter
--- OUTSIDE RECORDS SUMMARY | 2022-08-29 09:02 | XMS_ITS | Encounter Summary ---
:[address] [facility] Address [address] [place] [address] Care Team Providers Name Role Phone Unavailable Primary Care Provider Unavailable Encounter Details Date Type Department Care Team Description 05/24/2015 Hospital Encounter HX RST DERM SURG OP [facility] Ra yandel Hare M.D. [address] [place] [phone] (Wo rk) Social History Tobacco Use Types [...] at Date Recorded Male 09/10/2018 8:41 AM CRANE FOLLOWER documented as of this encounter Last Filed [...] Albert Waller M.D. [address] [place] [phone] (Wo rk) documented as of this encounter Visit Diagnoses Not on filedocumented in this encounter
--- OUTSIDE RECORDS SUMMARY | 2022-08-29 09:02 | XMS_ITS | Encounter Summary ---
:1935 Author Organization [facility] Address [address] [place] [address] Care Team Providers Name Role Phone Unavailable [...] you attend buddhist or Patient refused 2021 shinto services? Do [...] M.D. [address] [place], [place] [phone] (Wo rk) documented as of this encounter Procedures Procedure Name Priority Date/Time Associated Comments Diagnosis DERMATOLOGY IMAGE Routine 10/27/2017 12:25 Result s for this EXAM PM BOW REHAIRER procedure are i n the results section. documented in this encounter Results DERMATOLOGY IMAGE EXAM (10/27/2017 12:25 PM BOW REHAIRER) Specimen (Source) Anatomical Location Collection Method / Collectio n Time Received Time / Laterality Volume Narrative IIMS - 10/27/2017 4:45 PM BOW REHAIRER This order has been created and auto-finalized [...]
--- OUTSIDE RECORDS SUMMARY | 2022-08-29 09:06 | XMS_ITS | Encounter Summary ---
:1935 Author [facility] Address [address], [place] [address] Care Team Providers Name Role Phone Yamila English MD Primary Care Provider Reason for Referral Procedure/Equipment (Routine) - Incomplete Specialty Diagnoses / Procedures Referred By Contact Refer red To Contact Diagnoses Pain of right hip joint Right knee pain, unspecified chronicity Bryon Richardson MD Procedures XR Pelvis W Rt Lateral Hip [address] [place], [place] [address] Referral ID Status Reason Start Date Expiration Date Visits V isits Requested Authorized [id number] Incomplete 05/02/2019 07/31/2020 1 1 Procedure/Equipment (Routine) - Incomplete Specialty Diagnoses / Procedures Referred By Contact Refer red To Contact Diagnoses Pain of right hip joint Right knee pain, unspecified chronicity Bryon Richardson MD Procedures XR Knee Lt 1-2 Views Comparison [address] [place] [address] Referral ID Status Reason Start Date Expiration Date Visits V isits Requested Authorized [id number] Incomplete 05/02/2019 07/31/2020 1 1 Procedure/Equipment (Routine) - Incomplete Specialty Diagnoses / Procedures Referred By Contact Refer red To Contact Diagnoses Pain of right hip joint Right knee pain, unspecified chronicity Bryon Richardson MD Procedures XR Knee Rt 3 Views [address] [facility] [place], [place] [address] Referral ID Status Reason Start Date Expiration Date Visits V isits Requested Authorized [id number] Incomplete 05/02/2019 07/31/2020 1 1 Reason for Visit Reason Comments Knee Pain or Injury right Encounter Details Date Type Department Care Team Description 05/02/2019 Office Visit [facility] Bryon Richardson, Low [place] k pain radiating to right leg (Primary Dx); Urgent Care MD Pain of right hip joint; [address] [facility] Right knee pain, unspecified chronicity; [place], [place] [address] [place], [place] Posterior right knee pain; [phone] Hip injury, right, initial encounter [phone] (Wo rk) Social History Tobacco Use Types [...] documented in this encounter Patient Instructions Patient InstructionsLee, Bertin Chaves, MA - 05/02/2019 4:10 PM [...] for all medical requests and questions at [phone] MRI Scheduling: To schedule an MRI at [facility] please call [phone] Paperwork Requests: Questions regarding FMLA or disability paperwork please call [phone] Phone lines are answered 8AM to 5PM Friday - Friday Workers??? Compensation: Please contact our department for any Work Comp concerns at Email: [email or web address] Right osteo arthritis knee Make appointment for injection in may Right lumbar radiculopathy Call back for MRI documented in this encounter Progress Notes Bryon Richardson MD - 05/02/2019 12:00 PM CDT NAME: BLAKE SUTTON MR#: [id number] CSN: [id number] AUTHENTICATING CLINICIAN: Bryon Richardson MD CONFIRM #: [...] compartment degenerative changes with joint space narrowing, jvqv-fp-erdd articulation and osteophyte formation, similar. Mild joint [...] as he has been in the meantime. BILL:MEDQ C: R:05/02/19 18:12 CONFIRM#:[id number] documented in this [...] artment degenerative change with joint space narrowing, sodp-li-pgrt articulation and osteophyte formation, similar. Mild joint [...] artment degenerative change with joint space narrowing, zybm-un-sgak articulation and osteophyte formation, similar. Mild joint [...] artment degenerative change with joint space narrowing, oypx-uz-hwzp articulation and osteophyte formation, similar. Mild joint [...] artment degenerative change with joint space narrowing, qvwy-zo-pfxk articulation and osteophyte formation, similar. Mild joint [...] chronicity documented in this encounter Care Teams Machine Silk Screen Printer Relationship Specialty Start Date End Date Yamila English MD PCP - General 10/11/[address] [place], [place] [id number] documented as of this encounter
--- OUTSIDE RECORDS SUMMARY | 2022-08-29 09:06 | XMS_ITS | Encounter Summary ---
:1935 Author Organization [facility] Address [address], [place] [address] Care Team Providers Name Role Phone Yamila English MD Primary Care Provider Encounter Details Date Type Department Care Team Description 10/11/2013 Imaging [facility] Knee pain [address] [place], [place] [address] Social History Tobacco Use Types Packs/Day Years Used Date Smoking Tobacco: Never Assessed Sex Assigned at Date Recorded Not on file documented as of this encounter Plan of Treatment Not on filedocumented as of this encounter Procedures Procedure Name Priority Date/Time Associated Comments Diagnosis XR KNEE LT 1-2 VIEWS Routine 10/11/2013 12:05 PM Knee pain Results for this COMPARISON AUTOMATION AND CONTROLS SUPERVISOR procedure are i n the results section. XR KNEE RT 3 VIEWS Routine 10/11/2013 12:05 PM Knee pain Re sults for this AUTOMATION AND CONTROLS SUPERVISOR procedure are i n the results section. documented in this encounter Results XR Knee Lt 1-2 Views Comparison (10/11/2013 12:05 PM AUTOMATION AND CONTROLS SUPERVISOR) Anatomical Region Laterality Modality Lower Extremity, Knee Other Specimen (Source) Anatomical Location Collection Method / Collectio n Time Received Time / Laterality Volume Narrative 10/14/2013 8:05 PM AUTOMATION AND CONTROLS SUPERVISOR Three views of the right knee: INDICATION: [...] Knee Rt 3 Views (10/11/2013 12:05 PM AUTOMATION AND CONTROLS SUPERVISOR) Anatomical Region Laterality Modality Lower Extremity, Knee Other Specimen (Source) Anatomical Location Collection Method / Collectio n Time Received Time / Laterality Volume Narrative 10/14/2013 8:05 PM AUTOMATION AND CONTROLS SUPERVISOR Three views of the right knee: INDICATION: [...] leg documented in this encounter Care Teams Cashier Self Service Gasoline Relationship Specialty Start Date End Date Yamila English MD PCP - General 10/11/[address] [place] [address] documented as of this encounter
--- OUTSIDE RECORDS SUMMARY | 2022-08-29 09:06 | XMS_ITS | Encounter Summary ---
:1935 Author Organization [facility] Address [address] [place] [address] Care Team Providers Name Role Phone Yaneth English MD Primary Care Provider Reason for Visit Reason Comments INJURY, HIP Back Pain INJURY, KNEE Encounter Details Date Type Department Care Team Description 10/11/2013 Office Visit [facility] David Francisco, Emeka finn joint disease of knee (Primary Dx); Urgent Care MD Knee pain [address] [place] [address] [place] [address] [phone] (Wo rk) Social History Tobacco Use Types Packs/Day Years Used Date Smoking Tobacco: Never Assessed Sex Assigned at Date Recorded Not on file documented as of this encounter Last Filed Vital Signs Vital Sign Reading Time Taken Comments Blood Pressure 120/86 10/11/2013 11:23 AM EVENT STAFF Pulse - - Temperature 37.1 ??C (98.8 ??F) 10/11/2013 11:23 AM EVENT STAFF Respiratory Rate - - Oxygen Saturation - - Inhaled Oxygen Concentration - - Weight 93.9 kg (207 lb) 10/11/2013 11:23 AM EVENT STAFF Height 168.9 cm (5' 6.5) 10/11/2013 11:23 AM EVENT STAFF Body Mass Index 32.91 10/11/2013 11:23 AM EVENT STAFF documented in this encounter Patient Instructions Patient InstructionsLiberty Cedeño - 10/11/2013 1:[address] David Francisco MD Sports & Orthopaedic Medicine [facility] Home Care Coordinator: Colette Loges Please fax all paperwork correspondence to [phone] [facility] Nurse Line: [phone] Please contact [facility] Nurse line for all requests and questions. Please contact your Pharmacy for all medication refill requests T STAFF documented in this encounter Progress Notes David Francisco MD - 10/11/2013 9:46 PM CST Progress Notes signed by David Francisco MD at 10/14/132013 Author: David Francisco MD Service: (none) Author Type: Physician Filed: 10/14/132013 Note Time: 10/12/13828 Status: Signed Color Technician: David Francisco MD (Physician) NAME: BLAKE SUTTON MR#: [id number] CSN: [id number] AUTHENTICATING CLINICIAN: David Francisco MD CONFIRM #: [...] verbalized understanding. CWM:URIEL C: R:10/11/13 21:57 CONFIRM#:[id number] T STAFF documented in this encounter Plan of Treatment Not on filedocumented as of this encounter Visit Diagnoses Diagnosis Degenerative joint disease of knee - Idalia yaneth Osteoarthrosis, unspecified whether gene ralized or localized, lower leg Knee pain Pain in joint, lower leg documented in this encounter Care Teams Electrotyper Apprentice Relationship Specialty Start Date End Date Yaneth English MD PCP - General 10/11/[address] [place] [address] documented as of this encounter
--- OUTSIDE RECORDS SUMMARY | 2022-08-29 09:06 | XMS_ITS | Encounter Summary ---
:1935 Author Organization [facility] Address [address], [place] [address] Care Team Providers Name Role Phone Yamila English MD Primary Care Provider Reason for Visit Procedure/Equipment (Routine) - Incomplete Specialty Diagnoses / Procedures Referred By Contact Refer red To Contact Diagnoses Pain of right hip joint Right knee pain, unspecified chronicity Bryon Richardson MD Procedures XR Knee Rt 3 Views [address] [facility] [address] [place] [address] Referral ID Status Reason Start Date Expiration Date Visits V isits Requested Authorized [id number] Incomplete 05/02/2019 07/31/2020 1 1 Encounter Details Date Type Department Care Team Description 05/02/2019 Ancillary [facility] Bryon Richardson, Pain of right hip joint; Procedure [address] Right knee pain, unspecified chronicity Drive [address] [place] [address] [phone] Social History Tobacco Use Types Packs/Day Years [...] artment degenerative change with joint space narrowing, qbeg-ra-hann articulation and osteophyte formation, similar. Mild joint [...] artment degenerative change with joint space narrowing, znee-wm-fpyk articulation and osteophyte formation, similar. Mild joint [...] artment degenerative change with joint space narrowing, rdzz-ie-opgj articulation and osteophyte formation, similar. Mild joint [...] artment degenerative change with joint space narrowing, ltqk-xl-glab articulation and osteophyte formation, similar. Mild joint [...] chronicity documented in this encounter Care Teams Personal Care Attendant Relationship Specialty Start Date End Date Yamila English MD PCP - General 10/11/[address] [place] [id number] documented as of this encounter
--- OUTSIDE RECORDS SUMMARY | 2022-08-29 09:06 | XMS_ITS | Encounter Summary ---
:1935 Author Organization [facility] Address [address] [place] [address] Care Team Providers Name Role Phone Unavailable Primary Care Provider Unavailable Reason for Visit Reason Onset Date Comments Refill 02/13/2011 Encounter Details Date Type Department Care Team Description 02/13/2011 [facility]ill [facility] Bryon Villatoro MD Refill [facility] [address] [facility] [address] [place] [address] [place], [place] [id number] [phone] Social History Tobacco Use Types Packs/Day Years Used Date Smoking Tobacco: Never Assessed Sex Assigned at Date Recorded Not on file documented as of this encounter Plan of Treatment Not on filedocumented as of this encounter Visit Diagnoses Not on filedocumented in this encounter
--- OUTSIDE RECORDS SUMMARY | 2022-08-29 09:06 | XMS_ITS | Encounter Summary ---
:1935 Author Organization [facility] Address [address], [place] [address] Care Team Providers Name Role Phone Yamila English MD Primary Care Provider Reason for Visit Procedure/Equipment (Routine) - Incomplete Specialty Diagnoses / Procedures Referred By Contact Refer red To Contact Diagnoses Pain of right hip joint Right knee pain, unspecified chronicity Bryon Richardson MD Procedures XR Pelvis W Rt Lateral Hip [address] [facility] [address] [place] [address] Referral ID Status Reason Start Date Expiration Date Visits V isits Requested Authorized [id number] Incomplete 05/02/2019 07/31/2020 1 1 Encounter Details Date Type Department Care Team Description 05/02/2019 Ancillary [facility] Bryon Richardson, Pain of right hip joint; Procedure [address] Right knee pain, unspecified chronicity Drive [address] [facility] [place] [address] [phone] Social History Tobacco Use Types Packs/Day Years [...] chronicity documented in this encounter Care Teams Extrusion Press Adjuster Relationship Specialty Start Date End Date Yamila English MD PCP - General 10/11/[address] [place] [address] documented as of this encounter
--- OUTSIDE RECORDS SUMMARY | 2022-08-29 09:06 | XMS_ITS | Clinical Summary ---
:1935 Author Organization [facility] Address [place] [address] Care Team Providers Name Role Phone Slava Ewdards MD Primary Care Provider Allergies Active Allergy Reactions Severity Noted Date Comments Beta-Blockers (Beta-Adrenergic Blocking Bradycardia 0 12/27/2021 Agts) Penicillins *Unknown 12/27/2021 Medications Medication Sig Dispensed Refills Start Date End Date Status HYDROXYUREA ORAL Take 0 Act giles 1,500-2,000 mg by mouth once daily. 2000 mg Friday, Friday, Friday; 1500 mg Friday, Friday, Friday, aspirin chewable 81 Chew 81 mg by 0 Active mg chewable tablet mouth once daily with a meal. omeprazole 20 mg Take 20 mg by 0 Active tablet mouth once daily. glipiZIDE Take 10 mg by 0 Active (GLUCOTROL) 10 mg mouth once tablet daily before a meal. cholecalciferol, Take 2,000 mg 0 Active vitamin D3, by mouth once (VITAMIN D3 ORAL) every other day. buPROPion Take 300 mg 0 Active (WELLBUTRIN XL) 300 by mouth mg Extended-Release every tablet morning. nitroglycerin Place 1 25 Tablet 3 01/08/2022 Activ e (NITROSTAT) 0.4 mg Tablet (0.4 sublingual mg) under the tabletIndications: tongue every Hyperlipidemia LDL 5 minutes if goal <70 needed for Chest Pain. amLODIPine Take 1 Tablet 90 Tablet 0 03/08/2022 Acti ve (NORVASC) 2.5 mg (2.5 mg) by tabletIndications: mouth once Hypertension daily. torsemide (DEMADEX) Take 20 mg by 0 08/02/202208/02 Active 20 mg tablet mouth. 3 tamsulosin (FLOMAX) Take 0.4 mg 0 06/14/2022 Active 0.4 mg capsule by mouth. levothyroxine Take 150 mcg 0 08/20/2022 Ac tive (SYNTHROID) 150 mcg by mouth once tablet daily. finasteride Take 5 mg by 0 06/14/2022 Acti ve (PROSCAR) 5 mg mouth. tablet furosemide (LASIX) Take 1 Tablet 30 Tablet 3 03/08/2022 Discontinued 20 mg (20 mg) by 2 (*Patient states tabletIndications: mouth once no longer Acute systolic daily if takin g/Not on heart failure (HC) needed. 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 /Bradycardia Si nus//PCP: Slava Edwards MD) 08/23/2022 Travel from Last 3 Months Social History Tobacco Use Types Packs/Day Years Used Date Never Smoker Smokeless Tobacco: Never Used Alcohol Use Standard Drinks/Week Comments Yes 0 (1 standard drink = 0.6 oz pure alcoho l) rare Alcohol Habits Answer Date Recorded How often do you have a drink containing alcohol? Not asked How many drinks containing alcohol do you have on a typical Not asked day when you are drinking? How often do you have six or more drinks on one occasion? No t asked Comment: rare 08/23/2022 Sex Assigned at Date Recorded Not on file COVID-19 Exposure Response Date Recorded In the last 10 days, have you been in contact with No / Unsu re 08/23/2022 2:50 PM CDT someone who was confirmed or suspected to have Coronavirus/COVID-19? Obstetrics History Last Filed Vital Signs Vital Sign Reading Time Taken Comments Blood Pressure 122/50 08/23/2022 3:06 PM CDT Pulse 70 08/23/2022 3:06 PM CDT Temperature 36.6 ??C (97.9 ??F) 01/08/2022 3:30 PM CDT Respiratory Rate 14 03/08/2022 3:13 PM CDT Oxygen Saturation 87% 08/23/2022 3:06 PM CDT Inhaled Oxygen Concentration - - Weight 82.1 kg (180 lb 14.4 oz) 08/23/2022 3:06 PM CDT Height 175.3 cm (5' 9) 08/23/2022 3:06 PM CDT Body Mass Index 26.71 08/23/2022 3:06 PM CDT Plan of Treatment Health Maintenance Due Date Last Done Comments Pneumococcal series for age 65+ (1 - PCV) 1943 Tdap 1948 Depression screening for age 12+ 1949 Zoster (shingles) series for age 50+ (1 of 1956 2) Tetanus booster 1957 Medicare Wellness for age 65+ 2002 COVID-19 vaccine series (3 - Moderna risk 03/09/20212020, 01/10/2021 series) Influenza for age 65+ 06/20/2022 BMI (ht and wt on same day) for age 18+ 08/23/2023 08/23/20 22 Results Not on filefrom Last 3 Months Insurance Payer Benefit Plan / Subscriber ID Effective Dates Phone Addre ss Type Group MEDICARE PART B MEDICARE PART B [id number] 2002-Present ATTN: CLAIMS - HB USE ONLY HB ONLY [address] [place] [address] MEDICARE - PB MEDICARE PB [id number] 2002-Present ATT N: CLAIMS USE ONLY ONLY [address] [place] [address] [facility] [id number] 2015-Presen [address] [place] [address] Advance Directives Documents on File Type Date Recorded 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
--- OUTSIDE RECORDS SUMMARY | 2022-08-29 09:06 | XMS_ITS | Clinical Summary ---
:1935 Author Organization [facility] Address [address], [place] [address] Care Team Providers Name Role Phone Yamila [...] for each transition of care or referral. [employer] Allergies Active Allergy Reactions Severity Noted Date [...] Address T ype Group Dates MEDICARE MEDICARE [id number] 2012-Prese Med icare nt MISC INS [facility] [id number] 2012-SocialRep HEALTH [employer] [place] [address] Care Teams Caterer'S Aide Relationship Specialty Start Date End Date Yamila English MD PCP - General 10/11/[address] [place] [address]
[2022-08-29 14:18] LABS: Chloride* 98 mmol/L (96-114); Sodium* 136 mmol/L (135-149)
[2022-08-29 14:21] LABS: Blood Urea Nitrogen* 40 mg/dL (7-30); Carbon Dioxide* 31 mmol/L (20-32); Creatinine* 1.3 mg/dL (0.5-1.5); Estimated Glomerular Filt Rate 54 ml/min
[2022-08-29 14:22] LABS: Calcium* 8.3 mg/dL (8.4-10.6); Glucose* 268 mg/dL (60-115)
== END 2022-08-29 17:39 | disposition home or self-care (01) ==
PROVIDERS: PCP Family Medicine; Visit Provider Family Medicine
DX: I50.9 Heart failure, unspecified (principal)
CPT/HCPCS: 80048

== ENCOUNTER 2022-09-09 19:30 | Outpatient (CLI) | payer MEDICARE, OTHER, SELFPAY ==
--- OUTSIDE RECORDS SUMMARY | 2022-09-09 10:00 | XMS_ITS | Encounter Summary ---
:1935 Author Organization [facility] Address [address] [place] [address] Care Team Providers Name Role Phone Elsewhere, Pcp Primary Care Provider Unavailable Encounter Details Date Type Department Care Team Description 03/26/2022 Orders Only Department of Harmony Story N eoplasm Of Bladder (HCC) (Primary Dx); Radiology in A, R.N. Negative COVID-19 Test (Contact With And (Suspected) Exposure To COVID-19); [place], [place] [address] [facility] Encounter For Preprocedural Laboratory E xamination (COVID-19) [address] [place] [address] [phone] Social History Tobacco Use Types Packs/Day Years [...] you attend samaritan or Patient refused 2021 hindu services? 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 [address] [place] [id number] (Wo rk) 10/10/2022 Surgery Albert Waller Palliati ve RETROGRADE M.D. PYELOGRAM- possible [address] LAZO antegrade ureteroscopy, [place] Eason ureteral stent placement [id number] (Wo rk) Scheduled Procedures Name Priority Associated Diagnoses Date/Time RETROGRADE PYELOGRAM Malignant Neoplasm Of 10/10 10:25 AM ROLLOFF TRUCK DRIVER Bladder (HCC) ENDOPYELOTOMY RETROGRADE Malignant Neoplasm Of 1 12/11/2021 10:25 AM ROLLOFF TRUCK DRIVER Bladder (HCC) CYSTOSCOPY WITH Malignant Neoplasm Of 10/10/2022 10:25 AM ROLLOFF TRUCK DRIVER TRANSURETHRAL RESECTION Bladder (HCC) LESION BLADDER documented as of this encounter Visit Diagnoses Diagnosis Malignant Neoplasm Of Bladder (HCC) - Pr imary Negative COVID-19 Test (Contact With And (Suspected) Exposure To COVID-19) Encounter For Preprocedural Laboratory E xamination (COVID-19) Malignant Neoplasm Of Bladder (HCC) documented in this encounter Care Teams Tunnel Inspector Relationship Specialty Start Date End Date Elsewhere, Pcp PCP - General Internal Medicine 01/14/22 documented as of this encounter
--- OUTSIDE RECORDS SUMMARY | 2022-09-09 10:02 | XMS_ITS | Encounter Summary ---
:1935 Author Organization [facility] Address [address] [place] [address] Care Team Providers Name Role Phone Unavailable Primary Care Provider Unavailable Reason for Visit Reason Onset Date Comments biopsy results 06/07/2019 Encounter Details Date Type Department Care Team Description 06/07/2019 Clinical Communication Department of Becky Trinidad biopsy results Medicine, Franck Newby M.D. [facility] [place], in [address] [place] [phone] [place] [address] [place], [place] (Work) [phone] Social History Tobacco Use [...] you attend temple or Patient refused 2021 anglican services? 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 Please call her at [phone] documented in this encounter Plan of Treatment [...] PYELOGRAM Malignant Neoplasm Of 10/10 10:25 AM DOG POUND ATTENDANT Bladder (HCC) ENDOPYELOTOMY RETROGRADE Malignant Neoplasm Of 1 12/11/2021 10:25 AM DOG POUND ATTENDANT Bladder (HCC) CYSTOSCOPY WITH Malignant Neoplasm Of 10/10/2022 10:25 AM DOG POUND ATTENDANT TRANSURETHRAL RESECTION Bladder (HCC) LESION BLADDER documented as of this encounter Visit Diagnoses Not on filedocumented in this encounter
--- OUTSIDE RECORDS SUMMARY | 2022-09-09 10:02 | XMS_ITS | Encounter Summary ---
:1935 Author Organization [facility] Address [address] [place] [address] Care Team Providers Name Role Phone Unavailable Primary Care Provider Unavailable Reason for Visit Reason Comments Skin Check Outpatient (Routine) - Closed Specialty Diagnoses / Procedures Referred By Contact Refer red To Contact Dermatology Aashish Pandey M.D . [facility] [address] [place] [address] Referral ID Status Reason Start Date Expiration Date Visits Requ ested Visits Authorized [id number] Closed 02/16/2019 02/16/2020 1 1 Encounter Details Date Type Department Care Team Description 04/19/2019 Office Visit Department of Aashish Pandey, Tumor Skin Uncertain Behavior (Primary Dx); Dermatology in Franck Chamorro Keratosis [place], [place] [address] [place] [phone] Social History Tobacco Use Types Packs/Day Years [...] you attend religious or Patient refused 2021 advent services? 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 Hare. 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 on 10/27/17. The largest of his squamous cell carcinomas involving his left cheek was initially treated with CO2 laser in [place] and then Mohs surgery thereafter. MEDICAL HISTORY 1. 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 Hare??at [facility] on 10/27/17 2. [...] a total of 27 lesion(s) with two 96-42-dmjzml freeze-thaw cycles of liquid nitrogen cryoth erapy. [...] status post Mohs surgery by Dr. Hare??at [facility] on 10/27/17 ?? No evidence for recurrence [...] M.D. [address] [place] [phone] (Wo fermin) 10/10/2022 Surgery Albert Waller Palliati ve RETROGRADE M.D. PYELOGRAM- possible [address] LAZO antegrade ureteroscopy, [place] Eason ureteral stent placement [id number] (Octavio christensen) Scheduled Orders Name Type Priority Associated Diagnoses Order S chedule Dermatology misc minor Dermatology Routine Tumor Skin Uncerta in Expected: procedure Behavior 05/25/2019 (Approximate), Expires: 2021 Scheduled Procedures Name Priority Associated Diagnoses Date/Time RETROGRADE PYELOGRAM Malignant Neoplasm Of 10/10 10:25 AM SHREDDED FILLER CIGAR MAKER MACHINE Bladder (HCC) ENDOPYELOTOMY RETROGRADE Malignant Neoplasm Of 1 12/11/2021 10:25 AM SHREDDED FILLER CIGAR MAKER MACHINE Bladder (HCC) CYSTOSCOPY WITH Malignant Neoplasm Of 10/10/2022 10:25 AM SHREDDED FILLER CIGAR MAKER MACHINE TRANSURETHRAL RESECTION Bladder (HCC) LESION BLADDER documented as of this encounter Visit Diagnoses Diagnosis Tumor Skin Uncertain Behavior - Primary 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
--- OUTSIDE RECORDS SUMMARY | 2022-09-09 10:02 | XMS_ITS | Encounter Summary ---
:1935 Author Organization [facility] Address [address] [place] [address] Care Team Providers Name Role Phone Unavailable [...] you attend sikh or Patient refused 2021 oriental orthodox services? 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 [address] [place] [id number] (Wo rk) 10/10/2022 Surgery Albert Waller, Palliati ve RETROGRADE M.DJluis PYELOGRAM- possible [address] LAZO antegrade ureteroscopy, [place] Eason ureteral stent placement [id number] (Wo rk) Scheduled Procedures Name Priority Associated Diagnoses Date/Time RETROGRADE PYELOGRAM Malignant Neoplasm Of 10/10 10:25 AM TURPENTINE DISTILLER Bladder (HCC) ENDOPYELOTOMY RETROGRADE Malignant Neoplasm Of 1 12/11/2021 10:25 AM TURPENTINE DISTILLER Bladder (HCC) CYSTOSCOPY WITH Malignant Neoplasm Of 10/10/2022 10:25 AM TURPENTINE DISTILLER TRANSURETHRAL RESECTION Bladder (HCC) LESION BLADDER documented as of this encounter Procedures Procedure [...]
--- OUTSIDE RECORDS SUMMARY | 2022-09-09 10:02 | XMS_ITS | Encounter Summary ---
:1935 Author Organization [facility] Address [address] [place] [address] Care Team Providers Name Role Phone Unavailable Primary Care Provider Unavailable Reason for Visit Reason Comments Biopsy Encounter Details Date Type Department Care Team Description 05/25/2019 Procedure visit Department of Aashish Pandey Tumor Skin Uncertain Behavior (Primary Dx); Dermatology in [place] M.D. Keratosis Actinic; [place], [place] [address] [facility] Keratosis Seborrheic Inflamed [address] [place] [phone] Social History Tobacco Use Types Packs/Day Years [...] you attend mu-ism or Patient refused 2021 gnosticist services? 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 [...] infraorbital x2, left ear helix x1, left spiritism x1, left upper cheek x2, right nasal [...] the patient by letter. Patient given pamphlet [id number]. Discussed the risks, benefits, alternatives, and the necessity of other members of the healthcare team participating in the procedure. All questions answered and consent given. #2 Left preauricular: Rule out basal cell carcinoma versus citrus picker's papule We recommend a shave biopsy [...] the patient by letter. Patient given pamphlet [id number]. Discussed the risks, benefits, alternatives, and the [...] a total of 14 lesion(s) with two 65-72-wxxyih freeze-thaw cycles of liquid nitrogen cryoth erapy. [...] a total of 1 lesion(s) with two 00-75-ykqobs freeze-thaw cycles of liquid nitrogen cryotherapy. The [...] transected. I have recommended Mohs surgery at [facility]. Patient is very adamant about not going down to [facility] and would like me to treat these lesions. I discussed with him that the optimal treatment is the Mohs surgery and he understands but does not want to go havethis done. Subsequently, he will return to [place] where we will do further shave biopsies [...] surgery at this time. An appointment for [facility] was placed today. documented in this encounter Plan of Treatment Upcoming Encounters Date Type Specialty Care Team Description 10/10/2022 Hospital Encounter Albert Waller M.D. [address] [place] [phone] (Wo rk) 10/10/2022 Surgery Albert Waller, Palliati ve RETROGRADE M.DJluis PYELOGRAM- possible [address] LAZO antegrade ureteroscopy, JAIMEE Eason ureteral stent placement [id number] (Wo rk) Scheduled Procedures Name Priority Associated Diagnoses Date/Time RETROGRADE PYELOGRAM Malignant Neoplasm Of 10/10 10:25 AM DISCIPLINARY HEARING OFFICER Bladder (HCC) ENDOPYELOTOMY RETROGRADE Malignant Neoplasm Of 1 12/11/2021 10:25 AM DISCIPLINARY HEARING OFFICER Bladder (HCC) CYSTOSCOPY WITH Malignant Neoplasm Of 10/10/2022 10:25 AM DISCIPLINARY HEARING OFFICER TRANSURETHRAL RESECTION Bladder (HCC) LESION BLADDER documented [...] is a 0.5 x 0.4 cm pale [id number]-[id number]-cbltn, slightly raised, firm lesion with irregular borders encompassing nearly the entire skin surface. ??The specimen is bisected and submitted entirely in cassette B1. Grossed by AVJluis Valdez 05/28/2019 electronically Macario Cisneros 5:01 PM [...] Organization Address City/State/ZIP Code Phon e Number [facility] - [address] documented in this encounter Visit Diagnoses Diagnosis Tumor Skin Uncertain Behavior - Primary Keratosis Actinic Keratosis Seborrheic Inflamed Malignant Neoplasm Of Bladder (HCC) documented in [...]
[2022-09-09 13:51] LABS: Chloride* 101 mmol/L (96-114); Potassium* 4.9 mmol/L (3.6-5.1); Sodium* 139 mmol/L (135-149)
[2022-09-09 13:54] LABS: Blood Urea Nitrogen* 44 mg/dL (7-30); Carbon Dioxide* 30 mmol/L (20-32); Creatinine* 1.6 mg/dL (0.5-1.5); Estimated Glomerular Filt Rate 42 ml/min; Glucose* 171 mg/dL (60-115)
[2022-09-09 13:55] LABS: Calcium* 8.5 mg/dL (8.4-10.6)
[2022-09-09 14:04] LABS: NT Pro B Type NatriureticPept* 6180 PG/mL (0-450)
== END 2022-09-09 19:31 | disposition home or self-care (01) ==
PROVIDERS: PCP Family Medicine; Visit Provider Family Medicine
DX: E03.9 Hypothyroidism, unspecified (principal); N18.31 Chronic kidney disease, stage 3a; I25.5 Ischemic cardiomyopathy; I50.9 Heart failure, unspecified; D64.9 Anemia, unspecified; N13.30 Unspecified hydronephrosis; N17.9 Acute kidney failure, unspecified; I50.40 Unspecified combined systolic (congestive) and diastolic (congestive) heart failure
CPT/HCPCS: 80048; 83880; 84443

== ENCOUNTER 2022-09-20 13:38 | Outpatient (CLI) | payer MEDICARE, OTHER, SELFPAY ==
--- OUTSIDE RECORDS SUMMARY | 2022-09-20 14:14 | XMS_ITS | Encounter Summary ---
:1935 Author Organization [facility] Address [address] [place] [address] Care Team Providers Name Role Phone Elsewhere, Pcp Primary Care Provider Unavailable Encounter Details Date Type Department Care Team Description 08/02/2022 Hospital Encounter Division of Marielena Alfaro, Cardiovascular Diseases SENIOR CONTRACTS ADMINISTRATOR, C. N.P. in [facility] lon[facility] [address] [place] [phone] Social History Tobacco Use Types Packs/Day Years [...] you attend buddhist or Patient refused 2021 mu-ism services? 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 [address] [place] [phone] (Octavio christensen) 10/10/2022 Surgery Albert Waller Palliati ve RETROGRADE M.D. PYELOGRAM- possible [address] LAZO antegrade ureteroscopy, JAIMEE Eason ureteral stent placement [id number] (Octavio christensen) Scheduled Procedures Name Priority Associated Diagnoses Date/Time RETROGRADE PYELOGRAM Malignant Neoplasm Of 10/10 10:25 AM INTERNATIONAL SOURCING MANAGER Bladder (HCC) ENDOPYELOTOMY RETROGRADE Malignant Neoplasm Of 1 12/11/2021 10:25 AM INTERNATIONAL SOURCING MANAGER Bladder (HCC) CYSTOSCOPY WITH Malignant Neoplasm Of 10/10/2022 10:25 AM INTERNATIONAL SOURCING MANAGER TRANSURETHRAL RESECTION Bladder (HCC) LESION BLADDER documented [...] Duration 0 sec duration [employer] [facility] [place] 0% percent INFO[employer] [place] Runs 1114 [...] The patient reported no symptomatic e vents. Gate Cutter: VENKATESH Perrin / VENKATESH Devine Procedure [...] The patient reported no symptomatic e vents. Gate Cutter: VENKATESH Perrin / VENKATESH Devine Marielena Alfaro APRN C.N.P. CV CARDIAC SERVICES PROC EDURES Performing Organization Address City/State/ZIP Code Phon e Number [facility] [place] documented in this encounter Visit Diagnoses Not on filedocumented in this encounter Care Teams Actuarial Technician Relationship Specialty Start Date End Date Elsewhere, Pcp PCP - General Internal Medicine 01/14/22 documented as of this encounter
--- OUTSIDE RECORDS SUMMARY | 2022-09-20 14:14 | XMS_ITS | Encounter Summary ---
:1935 Author Organization [facility] Address [address] [place] [address] Care Team Providers Name Role Phone Elsewhere, Pcp Primary Care Provider Unavailable Reason for Referral Outpatient (Routine) - Authorized Specialty Diagnoses / Procedures Referred By Contact Refer red To Contact Radiology Diagnoses Malignant Neoplasm Of Bladder (HCC) Bassam Broderick M.D. [facility] Procedures IR Nephrostomy Tube Exchange Left [address] [place] [address] Referral ID Status Reason Start Date Expiration Date Visits V isits Requested Authorized [id number] Authorized 08/22/2022 08/22/2023 1 1 utpatient (Routine) - Closed Specialty Diagnoses / Procedures Referred By Contact Refer red To Contact Urology Bassam Broderick M.D . [facility] [place] [facility] [address] [place] [address] Referral ID Status Reason Start Date Expiration Date Visits Requ ested Visits Authorized [id number] Closed 08/22/2022 08/21/2025 1 1 utpatient (Routine) - Closed Specialty Diagnoses / Referred By Contact Referred To Contact Procedures Cardiovascular Diseases / Diagnoses Malignant Neoplasm Of Bladder (HCC) Bassam Broderick [facility] [place] [facility] Cardiovascular Disease M.D. [address] [place] [address] Referral ID Status Reason Start Date Expiration Date Visits Requ ested Visits Authorized [id number] Closed 08/22/2022 08/22/2023 1 1 Reason for Visit Outpatient (Routine) - Closed Specialty Diagnoses / Procedures Referred By Contact Refer red To Contact Urology Claude Loaiza M PAS, [facility] [place] [facility] [address] [place] [address] Referral ID Status Reason Start Date Expiration Date Visits Requ ested Visits Authorized [id number] Closed 06/14/2022 06/13/2025 1 1 Encounter Details Date Type Department Care Team Description 08/22/2022 Virtual Visit Department of Urology Gibran Ruvalcaba Neoplasm Of in [place] M.D. Bladder (HCC) (Primary [place] [address] [facility] Dx) [address] [place] [phone] Social History Tobacco Use Types Packs/Day Years [...] you attend protestant or Patient refused 2021 jehovah's witness services? 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 - 08/22/2022 1:00 PM CDT SUBJECTIVE CHIEF COMPLAINT/REASON FOR VISIT No chief complaint on file. HISTORY OF PRESENT ILLNESS Consult conducted via real-time audio/video technology by Bassam Broderick MD in [facility] to the patient in patient's home. Mr. Chery is an 87 year old male with high-grade urothelial carcinoma of the bladder who I spoketo on the phone today regarding management of his left UPJ obstruction. Overall the patient is doingvery well. He was recently seen in the ER for cardiac issues for which he is requesting follow-up with Cardiology here at [place]. His nephrostomy tube is extremely bothersome to [...] patient's request to establish care here at [facility] after being seen in the ER [...] [id number] (Wo rk) 10/10/2022 Surgery Albert Waller, Pallijosi ve RETROGRADE M.DJluis PYELOGRAM- possible [address] LAZO antegrade ureteroscopy, JAIMEE Eason ureteral stent placement [id number] (Wo rk) Scheduled Orders Name Type Priority Associated Order Schedule Diagnoses IR Nephrostomy Tube Imaging RAD - Routine (most Malignant Neop lasm Expected: Exchange Left inpatients and all Of Bladder (HCC) 12/2022 outpatients) (Approximate), Expires: 11/22/2023 Scheduled Procedures Name Priority Associated Diagnoses Date/Time RETROGRADE PYELOGRAM Malignant Neoplasm Of 10/10 10:25 AM MERCHANDISE FLOW MANAGER Bladder (HCC) ENDOPYELOTOMY RETROGRADE Malignant Neoplasm Of 1 12/11/2021 10:25 AM MERCHANDISE FLOW MANAGER Bladder (HCC) CYSTOSCOPY WITH Malignant Neoplasm Of 10/10/2022 10:25 AM MERCHANDISE FLOW MANAGER TRANSURETHRAL RESECTION Bladder (HCC) LESION BLADDER Scheduled Referrals Name Type Priority Associated Order Schedule Diagnoses Cardiovascular Disease Outpatient Referral Routine Malignant N eoplasm Expected: - Heart failure consult Of Bladder (HCC) 08/22/2022 (clinic) (Approximate), Expires: 11/22/2023 Urology office visit Outpatient Referral Routine Expected: (clinic) 08/22/2022 (Approximate), Expires: 11/22/2023 documented as of this encounter Visit Diagnoses Diagnosis Malignant Neoplasm Of Bladder (HCC) - Pr imary Malignant Neoplasm Of Bladder (HCC) documented in this encounter Care Teams Grocery Clerk Relationship Specialty Start Date End Date Elsewhere, Pcp PCP - General Internal Medicine 01/14/22 documented as of this encounter
--- OUTSIDE RECORDS SUMMARY | 2022-09-20 14:14 | XMS_ITS | Encounter Summary ---
:1935 Author Organization [facility] Address [address] [place] [address] Care Team Providers Name Role Phone Elsewhere, Pcp Primary Care Provider Unavailable Reason for Referral Outpatient (Routine) - Closed Specialty Diagnoses / Procedures Referred By Contact Refer red To Contact Radiology Diagnoses Malignant Neoplasm Of Bladder (HCC) Nura David IV [facility] Procedures IR Nephrostomy Tube Exchange Left M.D. [address] [place] [address] Referral ID Status Reason Start Date Expiration Date Visits Requ ested Visits Authorized [id number] Closed 05/20/2022 05/20/2023 1 1 Outpatient (Routine) - Closed Specialty Diagnoses / Procedures Referred By Contact Refer red To Contact Radiology Diagnoses Malignant Neoplasm Of Bladder (HCC) Claude Loaiza MPAS, [facility] Procedures IR Nephrostomy Tube Check Left P.A.-C. [address] [place] [address] Referral ID Status Reason Start Date Expiration Date Visits Requ ested Visits Authorized [id number] Closed 06/14/2022 06/14/2023 1 1 Reason for Visit Outpatient (Routine) - Closed Specialty Diagnoses / Procedures Referred By Contact Refer red To Contact Radiology Diagnoses Malignant Neoplasm Of Bladder (HCC) Claude Loaiza MPAS, [facility] Procedures IR Nephrostomy Tube Check Left P.A.-C. [address] [place] [address] Referral ID Status Reason Start Date Expiration Date Visits Requ ested Visits Authorized [id number] Closed 06/14/2022 06/14/2023 1 1 Encounter Details Date Type Department Care Team Description 08/20/2022 Hospital Encounter Department of Mar Loaiza MPAS, Eduardo [address] [place] [phone] Malignant Neoplasm Radiology, Jamir Lorenzana M.D. [address] [place] [phone] Of Bladder (HCC) [facility], in [place], [place] [address] [place] [phone] Social History Tobacco Use Types Packs/Day Years [...] you attend amish or Patient refused 2021 uatsdin services? 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 [address] [place] [phone] (Octavio christensen) 10/10/2022 Surgery Albert Waller Palliati ve RETROGRADE M.D. PYELOGRAM- possible [address] LAZO antegrade ureteroscopy, JAIMEE Eason ureteral stent placement [id number] (Octavio christensen) Scheduled Procedures Name Priority Associated Diagnoses Date/Time RETROGRADE PYELOGRAM Malignant Neoplasm Of 10/10 10:25 AM DINNER COOK Bladder (HCC) ENDOPYELOTOMY RETROGRADE Malignant Neoplasm Of 1 12/11/2021 10:25 AM DINNER COOK Bladder (HCC) CYSTOSCOPY WITH Malignant Neoplasm Of 10/10/2022 10:25 AM DINNER COOK TRANSURETHRAL RESECTION Bladder (HCC) LESION BLADDER documented [...] Authorizing Provider Result Mayda David IV, M.D. [facility] IR PROCEDURES IR Nephrostomy Tube Check Left [...] nephrostogram demonstrates a UPJ stenosis. NR Claude ZELAYA P.A.-C. IMG IR PROCEDURES documented in this [...] (SUBLIMAZE) 1159 (Given - Provider: Ellis Dinh RJluisNJluis)1207 (Given - Provider: Ellis Dinh R.N.) 25 [...] (COM PLETED) 1213 (Given - Provider: Jamir Hinds M.D.) infiltration, Code/trauma/sedation medication, Starting on T 08/20/22 at 1213 midazolam (PF) injection 0.5 mg (VERSED) 0.5 mg, intravenous, Once as needed, sed ation, Starting on Fri08/20/22 at 1048, For 1 dose, Intraprocedure (RAD) midazolam (PF) injection 0.5 mg (VERSED) 1154 (Given - Provider: Ellis Dinh RGuy)1159 (Given - Provider: Ellis Dinh R.N.)1207 (Given - Provider: Ellis Dinh RGuy) 0.5 mg, intravenous, Every 2 min PRN, [...] injection documented in this encounter Care Teams Industrial Therapist Relationship Specialty Start Date End Date Elsewhere, Pcp PCP - General Internal Medicine 01/14/22 documented as of this encounter
--- OUTSIDE RECORDS SUMMARY | 2022-09-20 14:14 | XMS_ITS | Encounter Summary ---
:1935 Author Organization [facility] Address [address] [place] [address] Care Team Providers Name Role Phone Elsewhere, Pcp Primary Care Provider Unavailable Reason for Visit Outpatient (Routine) - Closed Specialty Diagnoses / Referred By Contact Referred To Contact Procedures Cardiovascular Diseases / Diagnoses Malignant Ne[facility] Bl[facility]HCC) [facility] M.DJluis [address] [place] [address] Referral ID Status Reason Start Date Expiration Date Visits Requ ested Visits Authorized [id number] Closed 08/22/2022 08/22/2023 1 1 Encounter Details Date Type Department Care Team Description 09/06/2022 Comprehensive Visit Department of Melecio Muñoz M.D., Ph.D. 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 [address] [place] [phone] Malignant Neoplasm Of Bladder (HCC); Medicine in Cardiomyopathy Dilated (HCC); [place], [place] Hypothyroidism [address] [place] [phone] Social History Tobacco Use Types Packs/Day [...] you attend gnosticism or Patient refused 2021 yarsani services? Do [...] Date Recorded Male 09/10/2018 8:41 AM WATCH GUARD GATE documented as of this encounter Last Filed Vital Signs Vital Sign Reading Time Taken Comments Blood Pressure 112/52 09/06/2022 1:56 PM WATCH GUARD GATE Pulse 42 09/06/2022 1:56 PM WATCH GUARD GATE Temperature - - Respiratory Rate - - Oxygen Saturation - - Inhaled Oxygen Concentration - - Weight 75 kg (165 lb 3.8 oz) 09/06/2022 1:56 PM WATCH GUARD GATE Height 167.1 cm (5' 5.79) 09/06/2022 1:56 PM WATCH GUARD GATE Body Mass Index 26.84 09/06/2022 1:56 PM WATCH GUARD GATE documented in this encounter Consult Notes Jl Valverde M.D. - 09/06/2022 2:00 PM CST REFERRAL SOURCE Bassam D Meggan, M.D. SUBJECTIVE CHIEF COMPLAINT / REASON FOR VISIT Pre surgery/anesthesia cardiac clearance HISTORY OF PRESENT ILLNESS Mr. Chery is a very pleasant 87-year-old gentleman with bladder cancer and nonischemic cardiomyopathy that was referred for preop evaluation. Medical history includes - Non-ischemic cardiomyopathy, ejection fraction 20-25% - Polycythemia vera - Hypertension - Type 2 diabetes mellitus - Chronic kidney disease (baseline Cr 1.3-1.4) -High-grade T1 bladder cancer diagnosed with percutaneous biopsy, status post radiation - Left hydronephrosis presumably due to a UPJ obstruction -Left hydroureter, presumably related to relative obstruction at the level of the UVJ, possibly related to the bladder cancer. Mr. Chery was diagnosed in December with nonischemic cardiomyopathy. At [...] tolerated YISSEL inhibitors due to renal dysfunction. Patient is followed closely by his senior asic design engineer Dr. Zaman at [facility]. Was recently seen in on July for bradycardia and was found to be hypothyroid. Since he started on thyroid replacement patient's symptoms of drowsy and bradycardia has improved significantly. Patient denies any chest pain no PND no orthopnea. His syncope no syncope no palpitations. His weight has remained stable and he has not had any issues with fluid retention. Patient is [place] heart Association class 2 The following portions of the patient's history were reviewed and updated as appropriate: allergies,current medications, family history, medical history, social history, surgical history, psychiatric history, substance abuse history, problem list, labs, diagnostics tests.. I also reviewed pertinent clinical notes in the electronic health record. REVIEW OF SYSTEMS A comprehensive review of systems was completed; pertinent abnormalities are included in the Historyof Present Illness. Constitutional: Positive for fatigue. ENT: Positive for difficulty hearing. Respiratory: Positive for shortness of breath. Genitourinary: Positive for frequent urination. The following systems were negative: Skin, Eyes, Cardiovascular, Gastrointestinal, Hematologic, Musculoskeletal, Neurological, Psychiatric MEDICATIONS Current Medications: ACETAMINOPHEN ORAL, 1,300 mg 2 (two) times a day. amLODIPine (NORVASC) 2.5 mg tablet, Take 2.5 mg by mouth daily. aspirin [address] tablet, Take 1 tablet by mouth daily. buPROPion XL (WELLBUTRIN XL) 300 mg 24 hr tablet, Take 300 mg by mouth daily. cholecalciferol (VITAMIN D3) 50 mcg (2,000 Unit) tablet, Take 50 mcg by mouth daily. ciprofloxacin (CIPRO) 500 mg tablet, ciprofloxacin (CIPRO) 500 mg tablet, TAKE 1 TABLET BY MOUTH DAILY FOR ONE TIME finasteride (PROSCAR) 5 mg tablet, Take 1 tablet (5 mg total) by mouth daily. FUROSEMIDE ORAL, 20 mg 2 (two) times a day. glipiZIDE (GLUCOTROL XL) 10 mg 24 hr tablet, Take 10 mg by mouth daily with breakfast. HYDROcodone-acetaminophen (NORCO) 5-325 mg per tablet, hydroxyurea (HYDREA) 500 mg capsule, Take 3-4 capsules by mouth daily. 1500 mg on Fri- 2000 mgon Fri-Fri levothyroxine (SYNTHROID, LEVOTHROID) 125 mcg tablet, Take 1 tablet (125 mcg total) by mouth every morning before breakfast. METHOCARBAMOL ORAL, nitroglycerin (NITROSTAT) 0.4 mg SL tablet, Place 0.4 mg under the tongue every 5 (five) minutes asneeded for chest pain. omeprazole (PriLOSEC) 20 mg capsule, Take 1 capsule by mouth daily. sulfamethoxazole-trimethoprim (BACTRIM DS) 800-160 mg per tablet, Take 1 tablet by mouth 2 (two) times a day. tamsulosin (FLOMAX) 0.4 mg 24 hr capsule, Take 1 capsule (0.4 mg total) by mouth daily. torsemide (DEMADEX) 20 mg tablet, Take 1 tablet (20 mg total) by mouth daily. trospium (SANCTURA) 20 mg tablet, Take 1 tablet (20 mg total) by mouth 2 (two) times a day as needed (bladder spasms). Allergies Allergen Reactions Penicillins Anaphylaxis and Other (see comments) Beta-Blockers (Beta-Adrenergic Blocking Agts) Other (see comments) Bradycardia Past Medical History: Diagnosis Date Atherosclerotic Heart Disease Of [place] Coronary Artery Without Angina Pectoris Cardiomyopathy Dilated (HCC) Chronic Kidney Disease Congestive Heart Failure (HCC) Depression Diabetes Mellitus NOS Gout Hypertension Essential Primary Impairment Cognitive Mild Keratosis Actinic Loss Hearing Bilateral Malignant Neoplasm Of Bladder (HCC) Malignant Neoplasm Of Skin Squamous Cell Carcinoma Polycythemia Vera (HCC) Regurgitation Tricuspid No family history on file. OBJECTIVE VITALS Blood Pressure: 112/52 Height: 167.1 cm Weight: 75 kg BMI (Calculated): 26.8 kg/m?? PHYSICAL EXAMINATION General: In acute distress Psychiatric: Oriented to person, place, and time. Eyes: Anicteric Vessels: JVP is not increased no carotid bruit Heart: S1-S2 no S3 no S4 no murmurs Lungs: Auscultation percussion Abdomen: No hepatosplenomegaly. No abdominal tenderness, no masses. Nephrostomy tube and urine back Extremities: No edema Skin: No stasis dermatitis or ulceration of the lower extremities. DIAGNOSTIC REVIEW All labs and diagnostic studies were reviewed. Recent Results (from the past 72 hour(s)) CBC without Differential Collection Time: 09/06/22 11:55 AM Result Value Hemoglobin 9.5 (L) Hematocrit 32.6 (L) Erythrocytes 3.06 (L) MCV 106.5 (H) RBC Distrib Width 21.6 (H) Platelet Count 607 (H) Leukocytes 10.1 (H) Basic Metabolic Panel Collection Time: 09/06/22 11:55 AM Result Value Potassium, S 5.3 (H) Sodium, S 143 Chloride, S 101 Bicarbonate, S 32 (H) Anion Gap 10 BUN (Blood Urea Nitrogen), S 41 (H) Creatinine 1.48 (H) Estimated GFR (eGFR) 46 (L) Calcium, Total, S 9.1 Glucose, S 244 (H) ECG 12 Lead Result Date: 09/06/2022 Sinus rhythm Premature ventricular complexes Nonspecific T wave abnormality Prolonged QT When compared with ECG of 01-AUG-2022 19:54, QRS voltage has increased QT has lengthened Reviewed by VENKATESH Lopez Echocardiogram February 2022 1. Severely enlarged left ventricular chamber size, [...] cava size with reduced inspiratory collapse (<50%). ASSESSMENT / PLAN #1 Malignant Neoplasm Of Bladder (HCC) #2 Chronic Combined Systolic (Congestive) And Diastolic (Congestive) Heart Failure (HCC) #3 Cardiomyopathy Dilated (HCC) #4 Hypothyroidism Patient is euvolemic by exam. By history he his [place] Heart Association class 2. He does not haveany shortness of breath at rest, no PND, no orthopnea, no peripheral edema. He gets short of breath with moderate exertion. His EKG shows sinus rhythm rate 71 bpm PVC with slightly prolonged QT, previous EKG 6 months ago also showed prolonged QT. Echocardiogram done in February showed EF of 25%. He has not tolerated any guideline directed medical therapy (GDMT).He has not tolerated beta-blockers in the past due to hypotension, has not tolerated YISSEL inhibitors due to renal dysfunction. Patient is followed closely by his senior asic design engineer Dr. Zaman at [facility]. Patient understands that he is at increased risk for perioperative events due to his low ejection fraction. However patient is euvolemic and do not have any symptoms of heart failure at rest. He is likely optimized as much as possible, hence he is cleared for anesthesia and surgery with careful monitoring of his fluid status perioperatively. Patient's potassium is slightly elevated 5.3 advised patient to avoid potassium rich food he will have potassium checked with his primary physician next week when he sees his primary physician. Also recommend a repeat EKG prior to his surgery to check his QT duration Patient was recently found to have hypothyroidism and was started on thyroid replacement. Patient needs to follow up with his primary physician to have that checked prior to his surgery. Patient statesthat he has an appointment with his primary physician next week Patient has established cardiology care with Dr Zaman at [facility]. They do not wish to establish cardiology care here at [place]. Patient and family asked if in the future, he needs cardiac clearance for surgery whether he can get it from Dr. Zaman and I told them they can. Patient has not tolerated GDMT forHF previously, advise him to followup with Dr Zaman to try getting on GDMT. PATIENT EDUCATION Learning needs assessment was performed. No learning barriers were identified. Explained diagnosis and treatment plan. Patient expressed understanding and was able to teach back. The time spent reviewing patient's medical records and [id number] consultation is 35 minutes Jl Valverde M.D. 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
--- OUTSIDE RECORDS SUMMARY | 2022-09-20 14:14 | XMS_ITS | Encounter Summary ---
:1935 Author Organization [facility] Address [address] [place] [address] Care Team Providers Name Role Phone Elsewhere, Pcp Primary Care Provider Unavailable Reason for Visit Outpatient (Routine) - Closed Specialty Diagnoses / Procedures Referred By Contact Refer red To Contact Urology Bassam Broderick M.D . [place] [address] [place], [place] [phone] Referral ID Status Reason Start Date Expiration Date Visits Requ ested Visits Authorized [id number] Closed 08/22/2022 08/21/2025 1 1 Encounter Details Date Type Department Care Team Description 09/03/2022 Telemedicine Department of Urology Albert Waller Ma Neoplasm Of in Giovanna Batista M.D. Bladder (HCC) (Primary [place] [address] [place] Dx) [address] [place] [phone] Social History Tobacco Use Types Packs/Day Years [...] you attend orthodox or Patient refused 2021 sabianism services? Do you belong to any clubs or No 05/17/2022 organizations such as orthodox groups, unions, [employer] or athletic groups, or school groups? How [...] at Date Recorded Male 09/10/2018 8:41 AM CATERING COORDINATOR documented as of this encounter Progress Notes Albert Waller M.D. - 09/03/2022 9:00 AM CST Consult conducted via real-time audio/video technology by Ablert Waller M.D. in [facility] to the patient in the patient's home. Ultimately, this interview was conducted only with audio as the patient and his family were not ableto fully access the video function. SUBJECTIVE HISTORY OF PRESENT ILLNESS Mr. Chery is a pleasant 87 y.o. 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 The patient has a history of high-grade urothelial carcinoma of the bladder. He was recently evaluated by Dr. Broderick and Dr. Ruvalcaba by phone. He was recently seen in the ER for cardiac issues for which he is requesting follow-up with Cardiology here at [place]. His nephrostomy tube is extremely bothersometo him and he would like to pursue options to be tube free as possible. He denies fever, chills, weight loss, gross hematuria, flank pain, abdominal pain, shortness of breath, and chest pain. Brief Clinical History: -01/24/22: evaluated for back pain and SOB - found to have L bladder wall mass at L UVJ. At that time he was reportedly not a surgical candidate for TURBT given his cardiac comorbidities. -02/11/22: CTU - L UVJ mass with hydronephrosis, nodular liver (cirrhosis) -02/18/22 L Nephrostomy tube placement, percutaneous biopsy of bladder mass - HG T1 (mp present and uninvolved) -04/02/22: received XRT treatment of bladder lesion (finished 04/19/22) -05/17/22: Seen by Dr. Rice - UDS showed contractile bladder (recommended against bladder outlet procedure) -05/23/22: CTU - bladder mass decreased in size -06/14/22: cystoscopy attempted and aborted due to navicular stricture which was dilated; started on self dilation with CIC BID, L ant nephrostogram suggesting UP SHAHLA -08/20/22: L antegrade nephrostogram suggesting L UP SHAHLA, nephrostomy tube exchanged; CTU - no bladdermass, bladder wall thickening, possible crossing vessel at L UPJ The patient undergo CIC twice daily. He also voids volitionally throughout the day. He has assistance with CIC. Comorbidities 1. CKD, stage III 2. Congestive heart failure with a reported ejection fraction of 20-25% 3. Polycythemia vera 4. Hypertension 5. Myelodysplastic syndrome 6. Obesity 7. Gout 8. type 2 diabetes 9. Depression 10. Dilated cardiomyopathy 11. Tricuspid regurgitation 12. Hypothyroidism 13. Acute and chronic respiratory failure PAST MEDICAL/SURGICAL HISTORY MEDICAL Patient Active Problem List Diagnosis Date Noted Hypothyroidism 08/02/2022 Bradycardia Sinus 08/02/2022 Beat Premature Ventricular 08/02/2022 Congestive Heart Failure (HCC) 08/01/2022 Acute And Chronic Respiratory Failure With Hypoxia (HCC) 08/01/2022 Anemia 08/01/2022 Degeneration Disc Lumbar 08/01/2022 Delirium Due To Known Physiological Condition 08/01/2022 Depression Major One Episode Partial Remission (HCC) 08/01/2022 Gout 08/01/2022 Tachycardia 08/01/2022 Retention Urinary 02/22/2022 Malignant Neoplasm Of Bladder (HCC) 02/19/2022 Diabetes Mellitus NOS 02/15/2022 Cardiomyopathy Dilated (HCC) 12/07/2021 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 Hypertension 08/29/2011 Loss Hearing Right 08/29/2011 Polycythemia Vera (HCC) 08/29/2011 Past Medical History: Diagnosis Date Atherosclerotic Heart Disease Of [place] Coronary Artery Without Angina Pectoris Cardiomyopathy Dilated (HCC) Chronic Kidney Disease Congestive Heart Failure (HCC) Depression Diabetes Mellitus NOS Gout Hypertension Essential Primary Impairment 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 MEDICATIONS Current Outpatient Medications: ACETAMINOPHEN ORAL, 1,300 mg 2 (two) times a day., Disp: , Rfl: amLODIPine (NORVASC) 2.5 mg tablet, Take 2.5 mg by mouth daily., Disp: , Rfl: aspirin [address] tablet, Take 1 tablet by mouth daily., Disp: , Rfl: buPROPion XL (WELLBUTRIN XL) 300 mg 24 hr tablet, Take 300 mg by mouth daily., Disp: , Rfl: cholecalciferol (VITAMIN D3) 50 mcg (2,000 Unit) tablet, Take 50 mcg by mouth daily., Disp: , Rfl: ciprofloxacin (CIPRO) 500 mg tablet, , Disp: , Rfl: ciprofloxacin (CIPRO) 500 mg tablet, TAKE 1 TABLET BY MOUTH DAILY FOR ONE TIME, Disp: 1 tablet, Rfl: 0 finasteride (PROSCAR) 5 mg tablet, Take 1 tablet (5 mg total) by mouth daily., Disp: 90 tablet, Rfl: 3 FUROSEMIDE ORAL, 20 mg 2 (two) times a day., Disp: , Rfl: glipiZIDE (GLUCOTROL XL) 10 mg 24 hr tablet, Take 10 mg by mouth daily with breakfast., Disp: , Rfl: HYDROcodone-acetaminophen (NORCO) 5-325 mg per tablet, , Disp: , Rfl: hydroxyurea (HYDREA) 500 mg capsule, Take 3-4 capsules by mouth daily. 1500 mg on Fri- 2000 mgon , Disp: , Rfl: levothyroxine (SYNTHROID, LEVOTHROID) 125 mcg tablet, Take 1 tablet (125 mcg total) by mouth every morning before breakfast., Disp: 30 tablet, Rfl: 3 METHOCARBAMOL ORAL, , Disp: , Rfl: nitroglycerin (NITROSTAT) 0.4 mg SL tablet, Place 0.4 mg under the tongue every 5 (five) minutes asneeded for chest pain., Disp: , Rfl: omeprazole (PriLOSEC) 20 mg capsule, Take 1 capsule by mouth daily., Disp: , Rfl: sulfamethoxazole-trimethoprim (BACTRIM DS) 800-160 mg per tablet, Take 1 tablet by mouth 2 (two) times a day., Disp: , Rfl: tamsulosin (FLOMAX) 0.4 mg 24 hr capsule, Take 1 capsule (0.4 mg total) by mouth daily., Disp: 90 capsule, Rfl: 3 torsemide (DEMADEX) 20 mg tablet, Take 1 tablet (20 mg total) by mouth daily., Disp: 30 tablet, Rfl: 3 trospium (SANCTURA) 20 mg tablet, Take 1 tablet (20 mg total) by mouth 2 (two) times a day as needed (bladder spasms)., Disp: 30 tablet, Rfl: 0 ALLERGIES Allergies Allergen Reactions Penicillins Anaphylaxis and Other (see comments) Beta-Blockers (Beta-Adrenergic Blocking Agts) Other (see comments) Bradycardia SYSTEMS REVIEW Additionally, a complete 10 point review of systems was conducted and was negative except for what was mentioned above in the HPI and/or endorsed on the patient survey. OBJECTIVE PHYSICAL EXAMINATION There were no vitals taken for this visit. General: NAD Mental status: AAOx3 Psychiatric: appropriate disposition HEENT: NCAT, conjugate gaze Respiratory: non-labored breathing Musculoskeletal: moves upper extremities Skin: no visible rashes Neuro: symmetric facial movements LABS Lab Results Component Value Date NA 142 08/02/2022 CL 104 08/02/2022 BUN 42 (H) 08/02/2022 HGB 8.1 (L) 08/02/2022 HCT 28.1 (L) 08/02/2022 WBC 6.5 08/02/2022 Lab Results Component Value Date/Time CREATININE 1.61 (H) 08/02/2022 06:07 AM CREATININE 1.74 (H) 08/01/2022 06:50 PM CREATININE 1.30 05/17/2022 03:02 PM CREATININE 1.38 (H) 02/22/2022 03:59 AM CREATININE 1.42 (H) 02/21/2022 03:46 AM CREATININE 1.09 02/07/2022 09:26 AM CREATININE 1.01 01/14/2022 05:[address] Urogram without and with IV Contrast Result Date: 08/20/2022 Impression: 1. Left nephrostomy tube with likely reactive wall thickening of left renal collecting system, overall stable. Moderate pelviectasis left kidney with narrowing at left UPJ suggesting some degree of UPJ obstruction possibly from a crossing gonadal vessel. The distal left ureter is opacified, minimally dilated without filling defects or obstruction. 2. Moderately thick-walled and trabeculated bladder likely due to bladder outlet obstruction from marked enlarged prostate gland. No focal abnormal bladder wall enhancement seen. 3. Heterogeneous enhancement of liver with surface nodularity likely sequelae of passive hepatic congestion from underlying cardiomyopathy. No focal hepatic lesions seen. Splenomegaly likely secondary to portal hypertension. 4. New perihepatic free fluid and subcutaneous edema likely from fluid overload. Small right pleural effusion. 5. 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 IR Nephrostomy Tube Check Left, IR Nephrostomy Tube Exchange Left Result Date: 08/20/2022 Impression: Successful exchange of the left nephrostomy tube. Antegrade nephrostogram demonstrates aUPJ stenosis. NR ASSESSMENT / PLAN IMPRESSION/REPORT/PLAN 1. CKD, stage III 2. Congestive heart failure with a reported ejection fraction of 20-25% 3. Polycythemia vera 4. Hypertension 5. Myelodysplastic syndrome 6. Obesity 7. Gout 8. type 2 diabetes 9. Depression 10. Dilated cardiomyopathy 11. Tricuspid regurgitation 12. Hypothyroidism 13. Acute and chronic respiratory failure 14. High-grade T1 bladder cancer diagnosed with percutaneous biopsy, status post radiation 15. Left hydronephrosis presumably due to a UPJ obstruction 16. Left hydroureter, presumably related to relative obstruction at the level of the UVJ, possibly related to the bladder cancer. The patient and I discussed his current clinical scenario[, along with the patient's and other family members]. We discussed the pertinent laboratory and imaging findings. I explained some of the possible management strategies and considerations. We talked about possible retrograde stent placement, ureteroscopy. We also talked about the possible need for antegrade evaluation. I reviewed the recent nephrostogram which did not demonstrate a clear passage of contrast from the left distal ureter into the bladder, although towards the end of the study the bladder did seem to start to opacify. We talked about the possibility of laser and balloon endopyelotomy and the conversion to a ureteral stent.We did talk about the possibility of eventually considering removal of the stent. If we are not ableto remove the stent, we could potentially place a stent that can safely remain in-situ for up to a year. The patient and his family are strongly desirous of having the nephrostomy tube converted as it is a significant source of limitation to his quality of life. We also can consider trans urethral resection of the bladder as we are in the operating room. The patient reports that he recently met with Cardiology locally who reported that he has cardiac function adequate for general anesthesia. We would like him to meet with our cardiologists. We discussed the risks and benefits of retrograde, possible antegrade ureteroscopy, possible laser and balloon endopyelotomy, possible transurethral resection of bladder tumor, possible stent placementand nephrostomy tube removal. Specifically we discussed that the risks included, but were not limited to, bleeding, infection, injury to adjacent structures, failure of the surgery to provide the intended effect, need for subsequent operations, heart attack, stroke, venous thromboembolism. Given the patient's history and numerous comorbidities including significant cardiac concerns, he would have a higher risk than an average patient for perioperative complications. They expressed understanding. PLAN: - Cardiac REMY -tentative surgical date for October 10, 2022 All of the patient's questions were answered. He is in agreement with the plan. I personally spent a total of 25 minutes in [id number] time performing a review of the record and/or discussion with the patient/caregiver as described above. The majority of the time was spent in the counseling and coordination of care. RING COORDINATOR documented in this encounter Plan of Treatment Upcoming Encounters Date Type Specialty Care Team Description 10/10/2022 Hospital Encounter Albert Waller M.D. [address] [place] [id number] (Wo rk) 10/10/2022 Surgery Albert Waller, Rivera kumar RETROGRADE Ashtyn PYELOGRAM- possible [address] [place] antegrade ureteroscopy, [place] ureteral stent placement [id number] (Wo rk) Scheduled Procedures Name Priority Associated Diagnoses Date/Time RETROGRADE PYELOGRAM Malignant Neoplasm Of 10/10 10:25 AM CATERING COORDINATOR Bladder (HCC) ENDOPYELOTOMY RETROGRADE Malignant Neoplasm Of 1 12/11/2021 10:25 AM CATERING COORDINATOR Bladder (HCC) CYSTOSCOPY WITH Malignant Neoplasm Of 10/10/2022 10:25 AM CATERING COORDINATOR TRANSURETHRAL RESECTION Bladder (HCC) LESION BLADDER documented as of this encounter Visit Diagnoses Diagnosis Malignant Neoplasm Of Bladder (HCC) - Pr imary Malignant Neoplasm Of Bladder (HCC) documented in this encounter Care Teams Debubblizer Relationship Specialty Start Date End Date Elsewhere, Pcp PCP - General Internal Medicine 01/14/22 documented as of this encounter
--- OUTSIDE RECORDS SUMMARY | 2022-09-20 14:14 | XMS_ITS | Clinical Summary ---
:1935 Author Organization [facility] Address [address] [place] [address] Care Team Providers Name Role Phone Elsewhere, Pcp Primary Care Provider Unavailable Source Comments Patient records contain information from all sites at [facility]. For routine questions regarding patient records, call [phone] during business hours, M-F 8:00 AM - 5:00 PM Central Time. 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 Cardiomyopathy Dilated (HCC); Jl Valverde Hypothyroidshan peña M.D. 09/06/2022 Hospital Encounter Laboratory Medicine Nuno Waller ngestive Heart Albert Peña M.D. Failure (HCC) 09/03/2022 Telemedicine Urology Katherine Waller Neopl asm Albert Peña M.D. Of Bladder (HC C) (Primary Dx) 09/03/2022 Clinical Cardiovascular Tunnel Kiln Repairer, Triage Communication Jocelynn Kumar M.D. 09/03/2022 Clinical Urology Corbin Waller M.D. 08/22/2022 Virtual Visit Urology Gibran Ruvalcaba Malignant Neop karenm Ashtyn Gardner Of Bladder (HC C) (Primary Dx) 08/20/2022 Hospital Encounter Radiology Josse, Malignant Neoplasm Claude C, Of Bladder (HCC ) Eliecer ZELAYA. Jamir Hinds M.D. 08/20/2022 Hospital Encounter Radiology Josse, Malignant Neoplasm Claude C, Of Bladder (HCC ) Eduardo ZELAYA 08/02/2022 Hospital Encounter Cardiovascular Lenser, Disease Marielena Jewell APRN, C.N.P. 08/01/2022 Hospital Encounter Kajal Molina Congestiv e Heart Failure (HCC) (Primary Dx); Jade Chiu M.D., Ph.D. Tachycardia; 08/02/2022 [place], [place] Bradycardia Jeffrey Carlson M.D., M.P.H. Brigido Ramos M.B.B.S. 07/02/2022 Hospital Encounter Radiology Gibran Ruvalcaba Malignant Neoplasm Of Bladder (HCC); Ashtyn Gardner Hydronephrosis Beatriz eLblanc M.D. Julia Murguia M.D. 07/01/2022 Clinical Urology Gibran Ruvalcaba Communication Ashtyn Gardner from Last 3 Months Immunizations Name Administration [...] you attend [employer] or Patient refused 2021 anglican services? Do [...] slept in a group home (including now)? Education Answer Date Recorded What is the highest level of school you have completed or 12 th grade 05/17/2022 the highest degree you have received? Sex Assigned at Date Recorded Male 09/10/2018 8:41 AM TUBE ROOM SUPERVISOR Last Filed Vital Signs Vital Sign Reading Time Taken Comments Blood Pressure 112/52 09/06/2022 1:56 PM TUBE ROOM SUPERVISOR Pulse 42 09/06/2022 1:56 PM TUBE ROOM SUPERVISOR Temperature 36 ??C (96.8 ??F) 08/20/2022 12:38 PM CDT Respiratory Rate 16 08/20/2022 1:30 PM CDT Oxygen Saturation 91% 08/20/2022 1:30 PM CDT Inhaled Oxygen Concentration - - Weight 75 kg (165 lb 3.8 oz) 09/06/2022 1:56 PM TUBE ROOM SUPERVISOR Height 167.1 cm (5' 5.79) 09/06/2022 1:56 PM TUBE ROOM SUPERVISOR Body Mass Index 26.84 09/06/2022 1:56 PM TUBE ROOM SUPERVISOR Plan of Treatment Upcoming Encounters Date Type Specialty Care Team Description 10/10/2022 Hospital Encounter Albert Waller M.D. [address] [place] [phone] (Octavio christensen) 10/10/2022 Surgery Albert Waller Palliati ve RETROGRADE M.Edwige PYELOGRAM- possible [address] [place] antegrade ureteroscopy, JAIMEE Eason ureteral stent placement [id number] (Octavio christensen) Scheduled Procedures Name Priority Associated Diagnoses Date/Time RETROGRADE PYELOGRAM Malignant Neoplasm Of 10/10 10:25 AM TUBE ROOM SUPERVISOR Bladder (HCC) ENDOPYELOTOMY RETROGRADE Malignant Neoplasm Of 1 12/11/2021 10:25 AM TUBE ROOM SUPERVISOR Bladder (HCC) CYSTOSCOPY WITH Malignant Neoplasm Of 10/10/2022 10:25 AM TUBE ROOM SUPERVISOR TRANSURETHRAL RESECTION Bladder (HCC) LESION BLADDER Health Maintenance Due Date Last Done Comments Depression Monitoring (PHQ-9) 1935 Diabetic Office Visit with Foot 1935 Exam Dilated Eye Exam 1935 Urine Albumin 1935 Pneumococcal vaccine (65+ years) 1941 (1 - PCV) Zoster Vaccines (1 of 2) 03/30/2014 02/02/2014 DTaP,Tdap,and Td Vaccines (1 - 12/08/2019 12/07/2019 Tdap) COVID-19 Vaccine (3 - Moderna risk 03/09/2021 02/09/2021, 0 01/10/2021 series) Hemoglobin A1C 01/31/2023 08/02/2022 Thyroid Stimulating Hormone (TSH) 08/02/2023 08/02/2022 test for thyroid function Creatinine Level 09/06/2023 09/06/2022, 08/02/2022, 08/01/2022, Additional history exists Office Visit for Blood Pressure 09/06/2023 09/06/2022 Check / Re-check Potassium Level 09/06/2023 09/06/2022, 08/02/2022, 08/01/2022, Additional history exists Sodium Level 09/06/2023 09/06/2022, 08/02/2022, 08/01/2022, Additional history exists Influenza Vaccine Completed 08/29/2022, 07/26/2019, 07/20/2018, Additional history exists Fall Risk Screen (Annual) Completed 09/06/2022 Procedures Procedure Name Priority Date/Time Associated Comments Diagnosis ECG Routine 09/06/2022 Congestive Heart Results for 12:16 PM TUBE ROOM SUPERVISOR Failure (HCC) this procedure are in the results section. BASIC METABOLIC PANEL, Routine 09/06/2022 Congestive Heart R esults for S/P 11:55 AM TUBE ROOM SUPERVISOR Failure (HCC) this procedure are in the results section. CBC WITHOUT Routine 09/06/2022 Congestive Heart Results for DIFFERENTIAL, B 11:55 AM TUBE ROOM SUPERVISOR Failure (HCC) this proced ure are in the results section. IR NEPHROSTOMY [...] are in the outpatients) Hydronephrosis results section. from Last 3 Months Results ECG 12 Lead (09/06/2022 12:16 PM TUBE ROOM SUPERVISOR)Only the most recent of3 resultswithin the time period is included. P athologist Signature Ventricular Rate 71 BPM MUSE ECG/Min VA Interval 156 ms MUSE QRSD Interval 96 ms MUSE QT Interval 438 ms MUSE QTC Interval 476 ms MUSE P [place] 62 degrees MUSE R [place] -16 degrees MUSE T Wave [place] 63 degrees MUSE Specimen Anatomical Collection Method Collection Time Receive d Time (Source) Location / / Volume Laterality 09/06/2022 12:16 09/06/2022 PM TUBE ROOM SUPERVISOR 12:31 PM TUBE ROOM SUPERVISOR Impressions MUSE - 09/06/2022 12:31 PM TUBE ROOM SUPERVISOR Sinus rhythm Premature ventricular complexes Nonspecific T wave abnormality Prolonged QT When compared with ECG of 01-AUG-2022 19 :54, QRS voltage has increased QT has lengthened Reviewed by VENKATESH Lopez Narrative This result has an attachment that is no t available. Procedure Note Emanuel Bush Jr., M.D. - 09/06/2022For matting of this note might be different from the original. IMPRESSION: Sinus rhythm Premature ventricular complexes Nonspecific T wave abnormality Prolonged QT When compared with ECG of 01-AUG-2022 19 :54, QRS voltage has increased QT has lengthened Reviewed by VENKATESH Lopez Albert Waller M.D. ECG ORDERABLES Performing Organization Address City/[facility]/ZIP Code Phon e Number MUSE MUSE NA (ABNORMAL) CBC without Differential (09/06/2022 11:55 AM TUBE ROOM SUPERVISOR)Only the most recent of2 resultswithin the time period is included. Patholo gist Method Time Signature Hemoglobin 9.5 (L) 13.2 - 09/06/2022 DTL 16.6 g/dL 12:25 PM TUBE ROOM SUPERVISOR Hematocrit 32.6 (L) 38.3 - 09/06/2022 DTL 48.6 % 12:25 PM TUBE ROOM SUPERVISOR Erythrocytes 3.06 (L) 4.35 - 09/06/2022 DTL 5.65 12:25 PM TUBE ROOM SUPERVISOR x10(12)/L MCV 106.5 (H) 78.2 - 09/06/2022 DTL 97.9 fL 12:25 PM TUBE ROOM SUPERVISOR RBC Distrib Width 21.6 (H) 11.8 - 09/06/2022 DTL 14.5 % 12:25 PM TUBE ROOM SUPERVISOR Platelet Count 607 (H) 135 - 317 09/06/2022 DTL x10(9)/L 12:25 PM TUBE ROOM SUPERVISOR Leukocytes 10.1 (H) 3.4 - 9.6 09/06/2022 DTL x10(9)/L 12:25 PM TUBE ROOM SUPERVISOR Specimen Anatomical Collection Method Collection Time Receive d Time (Source) Location / / Volume Laterality Blood (Blood, 09/06/2022 11:55 09/06/2022 Venous) AM TUBE ROOM SUPERVISOR 12:18 PM TUBE ROOM SUPERVISOR Albert Waller M.D. LAB BLOOD ADD-ON Performing Organization Address City/State/ZIP Code Phon e Number [facility] - [address] [place], [place] [address] [place] [address] [facility] [address] (ABNORMAL) Basic Metabolic Panel (09/06/2022 11:55 AM TUBE ROOM SUPERVISOR)Only the most recent of2 resultswithin the time period is included. Analysis Performed At Patho logist Time Signature Potassium, S 5.3 (H) 3.6 - 5.2 09/06/2022 DTL mmol/L 1:03 PM TUBE ROOM SUPERVISOR Sodium, S 143 135 - 145 09/06/2022 DTL mmol/L 1:03 PM TUBE ROOM SUPERVISOR Chloride, S 101 98 - 107 09/06/2022 DTL mmol/L 1:03 PM TUBE ROOM SUPERVISOR Bicarbonate, S 32 (H) 22 - 29 09/06/2022 DTL mmol/L 1:03 PM TUBE ROOM SUPERVISOR Anion Gap 10 7 - 15 09/06/2022 DTL 1:03 PM TUBE ROOM SUPERVISOR BUN (Blood Urea 41 (H) 8 - 24 09/06/2022 DTL Nitrogen), S mg/dL 1:03 PM TUBE ROOM SUPERVISOR Creatinine 1.48 (H) 0.74 - 09/06/2022 DTL 1.35 mg/dL 1:03 PM TUBE ROOM SUPERVISOR Estimated GFR 46 (L) >=60 09/06/2022 DTL (eGFR) mL/min/BSA 1:03 PM TUBE ROOM SUPERVISOR Comment: Estimated GFR calculated using the 2020 CKD_EPI creatinine equation. Calcium, Total, S 9.1 8.8 - 10.2 mg/dL 09/06/2022 1:03 PM TUBE ROOM SUPERVISOR DTL Glucose, S 244 (H) 70 - 140 mg/dL 09/06/2022 1:03 PM TUBE ROOM SUPERVISOR D TL Specimen Anatomical Collection Method Collection Time Receive d Time (Source) Location / / Volume Laterality Blood (Blood, 09/06/2022 11:55 09/06/2022 Venous) AM TUBE ROOM SUPERVISOR 12:41 PM TUBE ROOM SUPERVISOR Albert Waller M.D. LAB BLOOD ADD-ON Performing Organization Address City/State/ZIP Code Phon e Number [facility] - [address] [place], [place] [address] [place] [address] [facility] [address] [place] Nephrostomy Tube Exchange Left (08/20/2022 12:17 [...] nephrostomy tube was removed and a [address] aced. A glide head [...] nephrostomy tube was removed and a [address] aced. A glide head [...] nephrostomy tube was removed and a [address] aced. A glide head [...] nephrostomy tube was removed and a [address] aced. 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 Claude Ludwigfelecia MPAS, PJluisAArely. IMG CT PROCEDURES ECG AMBULATORY REAL TIME [...] Duration 0 sec duration INFOBIONIC MOME AF Rainbow 0% percent INFOBIONIC MOME VT Runs 1114 [...] The patient reported no symptomatic e vents. Telephone Information Clerk: VENKATESH Perrin / VENKATESH Devine Procedure Note [...] The patient reported no symptomatic e vents. Telephone Information Clerk: VENKATESH Perrin / VENKATESH Devine Marielena Alfaro [...] Address City/State/ZIP Code Phon e Number POC [facility] [address] [place] [address] PCLX [facility] [place] [address] [place] [facility] [address] DX Chest AP or PA and Lateral [...] / Volume Laterality Blood 08/02/2022 6:07 AM 10/14/202 2 6:45 CDT AM CDT Marielena Alfaro APRN, C.N.P. LAB BLOOD NON ADD-ON Performing Organization Address City/[facility] Phon e Number [facility] - [address] (ABNORMAL) T4 (Thyroxine), Free, Serum (08/02/2022 6:07 AM CDT) athologist Signature T4 0.7 (L) 0.9 - 1.7 08/02/2022 DTL (Thyroxine), ng/dL 7:37 AM CDT Free, S Specimen Anatomical Collection Method Collection Time Receive d Time (Source) Location / / Volume Laterality Blood 08/02/2022 6:07 AM 6:45 CDT AM CDT Marielena Alfaro APRN, Aram.N.P. LAB BLOOD ADD-ON Performing Organization Address City/[facility] Phon e Number [facility] - [id number] [place] [address] Lipid Panel (08/02/2022 6:07 AM CDT) athologist Signature Triglycerides 41 mg/dL 08/02/2022 DT 7:17 AM CDT Comment: ----REFERENCE VALUE---- Normal: <150 mg/dL Borderline High: 150-199 mg/dL High: 200-499 mg/dL Very High: > or =500 mg/dL Cholesterol, Total 104 mg/dL 08/02/2022 7:17 AM CD T DT Comment: ----REFERENCE VALUE---- Desirable: < 200 mg/dL Borderline High: 200 - 239 mg/dL High: > or = 240 mg/dL Cholesterol, LDL, Calculated 53 mg/dL 08/02/2022 7:17 AM CDT DT Comment: ----REFERENCE VALUE---- Desirable: <100 mg/dL Above [...] =220 mg/dL Fasting (8 HR or more) [id number] 08/02/2022 6:45 A M CDT DTL Specimen Anatomical Collection Method Collection Time Receive d Time (Source) Location / / Volume Laterality Blood (Blood, 08/02/2022 6:07 AM 08/02/20 6:45 Venous) CDT AM CDT Marielena Alfaro APRN, C.N.P. LAB BLOOD ADD-ON Performing Organization Address City/State/[facility] Code Phon e Number [facility] - [address] [place] [address] (ABNORMAL) Thyroid Function [place] (08/02/2022 6:07 AM CDT) P athologist Signature TSH, Sensitive 21.0 (H) 0.3 - 4.2 08/02/2022 DT mIU/L 7:17 AM CDT Specimen Anatomical Collection Method Collection Time Receive d Time (Source) Location / / Volume Laterality Blood (Blood, 08/02/2022 6:07 AM 08/02/20 6:45 Venous) CDT AM CDT Marielena Alfaro APRN, C.N.P. LAB BLOOD ADD-ON Performing Organization Address City/State/ZIP Code Phon e Number [facility] - [address] Type and Screen (with reflex Antibody ID) (08/02/2022 6:07 AM CDT) Patholo gist Method Time Signature ABORh A Pos Not 08/02/2022 STRM applicable 6:44 AM CDT Antibody Negative Negative 08/02/2022 STRM Screen 6:58 AM CDT Type & Screen 08/05/2022 08/02/2022 STRM Expiration 23:59 6:44 AM CDT Testing [place] DEFAULT 08/02/2022 STRM Location 6:22 AM CDT Specimen Anatomical Collection Method Collection Time Receive d Time (Source) Location / / Volume Laterality Blood (Blood, 08/02/2022 6:07 AM 08/02/20 6:22 Venous) CDT AM CDT Marielena Alfaro APRN, C.N.P. LAB BLOOD BANK TEST ORDE RABLES Performing Organization Address City/State/ZIP Code Phon e Number [place] [address] [address] [place], [place] [address] [place], [place] [id number] [place] [address] [address] [facility] (ABNORMAL) T3 (Triiodothyronine), Free (08/02/2022 6:07 AM CDT) athologist Signature T3 2.2 (L) 2.8 - 4.4 08/02/2022 [facility] (Triiodothyron pg/mL 12:00 PM CDT ine), Free, S Specimen Anatomical Collection Method Collection Time Receive d Time (Source) Location / / Volume Laterality Blood (Blood, 08/02/2022 6:07 AM 08/02/20 Venous) CDT 11:03 AM CDT Marielena Alfaro APRN, C.N.P. LAB BLOOD ADD-ON Performing Organization Address City/State/ZIP Code Phon e Number [facility] [address] [place], [place] [address] [facility] [place] [address] [facility] [address] [place] (ABNORMAL) T4 (Thyroxine), [...] APRN.N.P. LAB BLOOD ADD-ON Performing Organization Address City/[facility] Phon e Number [facility] - 200 [place], [place] [address] [place] [address] (ABNORMAL) Hemoglobin A1c (08/02/2022 6:07 AM [...] Aram.N.P. LAB BLOOD ADD-ON Performing Organization Address City/[facility] Phon e Number [facility] - 200 [place], [place] [address] [place], [place] [address] [place] [address] (ABNORMAL) Comprehensive Metabolic Panel (08/02/2022 6:07 AM [...] Address City/State/ZIP Code Phon e Number [facility] - [address] [place], [place] [address] [place] [address] [facility] [address] (ABNORMAL) NT-Pro B-Type Natriuretic Peptide (BNP) [...] Address City/State/ZIP Code Phon e Number [facility] - [address] [place] [address] [place] [address] Laboratories[address] (ABNORMAL) CBC with Differential, Blood (08/01/2022 6:50 PM CDT) [facility] gist Method Time Signature Hemoglobin 8.3 (L) [...] Blood (Blood, 08/01/2022 6:50 PM 08/01/20 22 7:17 Venous) CDT PM CDT Marielena Alfaro APRN, C.N.P. LAB BLOOD ADD-ON Performing Organization Address City/State/ZIP Code Phon e Number [facility] - [address] [place] [address] [place] [address] [address] 200 [facility] XR chest 1V portable-Outside Chest Xray (07/31/2022 11:55 AM CDT) Specimen (Source) Anatomical Collection Method [...] Code Phon e Number IIMS IIMS NA from Last 3 Months Insurance Payer Benefit Plan / Subscriber ID Effective Phone Address T ype Group Dates MEDICARE MEDICARE A AND [id number] 2002-Prese [id number] [place] [address] [facility] [id number] 2002-Prese [phone] [address] [place]emnity [place] 12 [id number] [place] [phone] Advance Directives For more information, please contact: [phone] Latest Code Status on File Code Status Date Activated Date Inactivated Comments DNR/DNI 08/01/2022 7:14 PM 08/02/2022 4:03 PM Code Status History Code Status Date Activated Date Inactivated Comments Full Code 08/01/2022 6:20 PM 08/01/2022 7:14 PM Question Answer Comments Full Code: Discussed DNR/DNI 02/20/2022 1:42 PM 02/22/2022 10:39 PM DNR/DNI 02/20/2022 1:42 PM 02/20/2022 1:42 PM Care Teams Ophthalmic Tech Relationship Specialty Start Date End Date Elsewhere, Pcp PCP - General Internal Medicine 01/14/22
--- OUTSIDE RECORDS SUMMARY | 2022-09-20 14:14 | XMS_ITS | Encounter Summary ---
:1935 Author Organization [facility] Address [address] [place] [address] Care Team Providers Name Role Phone Elsewhere, Pcp Primary Care Provider Unavailable Reason for Referral MRI/CAT/PET Scan (Routine) - Closed Specialty Diagnoses / Procedures Referred By Contact Refer red To Contact Radiology Diagnoses Malignant Neoplasm Of Bladder (HCC) Claude Loaiza MPAS, [facility] Procedures CT Urogram without and with IV Contrast P.A.-C. [address] [place], [place] [address] Referral ID Status Reason Start Date Expiration Date Visits Requ ested Visits Authorized [id number] Closed 06/14/2022 06/14/2023 1 1 Reason for Visit MRI/CAT/PET Scan (Routine) - Closed Specialty Diagnoses / Procedures Referred By Contact Refer red To Contact Radiology Diagnoses Malignant Neoplasm Of Bladder (HCC) Claude Loaiza MPAS, [facility] Procedures CT Urogram without and with IV Contrast P.A.-C. [address] [place], [place] [address] Referral ID Status Reason Start Date Expiration Date Visits Requ ested Visits Authorized [id number] Closed 06/14/2022 06/14/2023 1 1 Encounter Details Date Type Department Care Team Description 08/20/2022 Hospital Encounter Department of Claude Loaiza Neoplasm Radiology, [facility], [facility], Of Bladder ( HCC) Building, in [facility] [place], [place] [address] [place] [phone] Social History Tobacco Use Types Packs/Day Years [...] attend roman catholic or Patient refused 2021 yazdanism services? Do [...] at Date Recorded Male 09/10/2018 8:41 AM YOUTH SERVICES SPECIALIST documented as of this encounter Medications [...] role of person notified in receiving area: [place] [address] [place] (Jaye) Spoke to Jaye from [place] [address] [place] about patient status on continuous oxygen and family members stated hehas been decreasing in his heart and oxygen levels as of recent. documented in this encounter Plan of Treatment Upcoming Encounters Date Type Specialty Care Team Description 10/10/2022 Hospital Encounter Albert Wlaler M.D. [address] [place] [phone] (Wo fermin) 10/10/2022 Surgery Albert Waller Palliati ve RETROGRADE M.D. PYELOGRAM- possible [address] [place] antegrade ureteroscopy, JAIMEE Eason ureteral stent placement [id number] (Wo rk) Scheduled Procedures Name Priority Associated Diagnoses Date/Time RETROGRADE PYELOGRAM Malignant Neoplasm Of 10/10 10:25 AM YOUTH SERVICES SPECIALIST Bladder (HCC) ENDOPYELOTOMY RETROGRADE Malignant Neoplasm Of 1 12/11/2021 10:25 AM YOUTH SERVICES SPECIALIST Bladder (HCC) CYSTOSCOPY WITH Malignant Neoplasm Of 10/10/2022 10:25 AM YOUTH SERVICES SPECIALIST TRANSURETHRAL RESECTION Bladder (HCC) LESION BLADDER documented [...] changes. Cardiomegaly. Procedure Note Bulmaro Ni M.B.B.S., Mariano. - 2 EXAM: CT UROGRAM WITHOUT AND [...] 190 mL 1-250 mL, intravenous, Once, On e 08/20/22 at 0845, For 1 dose, Imaging Protocol Orders documented in this encounter Care Teams Welding Tester Relationship Specialty Start Date End Date Elsewhere, Pcp PCP - General Internal Medicine 01/14/22 documented as of this encounter
--- OUTSIDE RECORDS SUMMARY | 2022-09-20 14:14 | XMS_ITS ---
:1935 Author Organization [facility] Address [address] [place] [address] Care Team Providers Name Role Phone Elsewhere, [...] Prescribed Total On Treated Fraction Dose Dose [id number] 04/19/2022 17 6 of 6 600 cGy 3,600 cGy Reference Point Last Treated On Elapsed Days Session Dose Total Dos e [id number] 04/19/2022 17 600 cGy 3,600 cGy Lifetime Dose Tracking Chemical Lifetime Dose Automatic Entry Manual Entry Radiation 213.28 mGy 213.28 mGy 0 mGy Fluoro Time 10.5 minutes 10.5 minutes 0 minutes DAP (uGy-m2) 3,896.46 uGy-m2 3,896.46 uGy-m2 0 uGy-m2
--- OUTSIDE RECORDS SUMMARY | 2022-09-20 14:14 | XMS_ITS | Encounter Summary ---
:1935 Author Organization [facility] Address [address] [place] [address] Care Team Providers Name Role Phone Elsewhere, Pcp Primary Care Provider Unavailable Encounter Details Date Type Department Care Team Description 09/06/2022 Hospital Encounter Department of Xenia Waller Heart Laboratory Medicine Mariano Hart Failure (HCC) and Pathology, [address] [place] [facility] in [place], [place] [address] [address] [facility] [phone] [place], [place] (Work) [phone] Social History Tobacco Use Types Packs/Day Years [...] you attend synagogue or Patient refused 2021 islam services? Do [...] at Date Recorded Male 09/10/2018 8:41 AM CASTINGS DRAFTER documented as of this encounter Medications at [...] TAKE 1 TABLET BY 1 tablet 0 2 03/202206/14/2023 mg tablet MOUTH DAILY FOR ONE TIME [...] 0 10/27/2017 mg capsule 2000 mg on Fri-Sun levothyroxine (SYNTHROID, Take 1 tablet (125 30 [...] PYELOGRAM Malignant Neoplasm Of 10/10 10:25 AM CASTINGS DRAFTER Bladder (HCC) ENDOPYELOTOMY RETROGRADE Malignant Neoplasm Of 1 12/11/2021 10:25 AM CASTINGS DRAFTER Bladder (HCC) CYSTOSCOPY WITH Malignant Neoplasm Of 10/10/2022 10:25 AM CASTINGS DRAFTER TRANSURETHRAL RESECTION Bladder (HCC) LESION BLADDER documented as of this encounter Procedures Procedure Name Priority Date/Time Associated Diagnosis Comme nts CBC WITHOUT Routine 09/06/2022 11:55 AM Congestive Heart Resu lts for this DIFFERENTIAL, B CASTINGS DRAFTER Failure (HCC) procedure a re in the results section. BASIC METABOLIC Routine 09/06/2022 11:55 AM Congestive Heart R esults for this PANEL, S/P CASTINGS DRAFTER Failure (HCC) procedure are in the results section. documented in this encounter Results (ABNORMAL) Basic Metabolic Panel (09/06/2022 11:55 AM CASTINGS DRAFTER) Analysis Performed At Patho logist Time Signature Potassium, S 5.3 (H) 3.6 - 5.2 09/06/2022 DTL mmol/L 1:03 PM CASTINGS DRAFTER Sodium, S 143 135 - 145 09/06/2022 DTL mmol/L 1:03 PM CASTINGS DRAFTER Chloride, S 101 98 - 107 09/06/2022 DTL mmol/L 1:03 PM CASTINGS DRAFTER Bicarbonate, S 32 (H) 22 - 29 09/06/2022 DTL mmol/L 1:03 PM CASTINGS DRAFTER Anion Gap 10 7 - 15 09/06/2022 DTL 1:03 PM CASTINGS DRAFTER BUN (Blood Urea 41 (H) 8 - 24 09/06/2022 DTL Nitrogen), S mg/dL 1:03 PM CASTINGS DRAFTER Creatinine 1.48 (H) 0.74 - 09/06/2022 DTL 1.35 mg/dL 1:03 PM CASTINGS DRAFTER Estimated GFR 46 (L) >=60 09/06/2022 DTL (eGFR) mL/min/BSA 1:03 PM CASTINGS DRAFTER Comment: Estimated GFR calculated using the 2020 CKD_EPI creatinine equation. Calcium, Total, S 9.1 8.8 - 10.2 mg/dL 09/06/2022 1:03 PM CASTINGS DRAFTER DTL Glucose, S 244 (H) 70 - 140 mg/dL 09/06/2022 1:03 PM CASTINGS DRAFTER D TL Specimen Anatomical Collection Method Collection Time Receive d Time (Source) Location / / Volume Laterality Blood (Blood, 09/06/2022 11:55 09/06/2022 Venous) AM CASTINGS DRAFTER 12:41 PM CASTINGS DRAFTER Albert Waller M.D. LAB BLOOD ADD-ON Performing Organization Address City/State/ZIP Code Phon e Number [facility] - [address] [place], [place] [address] [facility] [place] [address] [facility] [address] (ABNORMAL) CBC without Differential (09/06/2022 11:55 AM CASTINGS DRAFTER) [facility] gist Method Time Signature Hemoglobin 9.5 (L) 13.2 - 09/06/2022 DTL 16.6 g/dL 12:25 PM CASTINGS DRAFTER Hematocrit 32.6 (L) 38.3 - 09/06/2022 DTL 48.6 % 12:25 PM CASTINGS DRAFTER Erythrocytes 3.06 (L) 4.35 - 09/06/2022 DTL 5.65 12:25 PM CASTINGS DRAFTER x10(12)/L MCV 106.5 (H) 78.2 - 09/06/2022 DTL 97.9 fL 12:25 PM CASTINGS DRAFTER RBC Distrib Width 21.6 (H) 11.8 - 09/06/2022 DTL 14.5 % 12:25 PM CASTINGS DRAFTER Platelet Count 607 (H) 135 - 317 09/06/2022 DTL x10(9)/L 12:25 PM CASTINGS DRAFTER Leukocytes 10.1 (H) 3.4 - 9.6 09/06/2022 DTL x10(9)/L 12:25 PM CASTINGS DRAFTER Specimen Anatomical Collection Method Collection Time Receive d Time (Source) Location / / Volume Laterality Blood (Blood, 09/06/2022 11:55 09/06/2022 Venous) AM CASTINGS DRAFTER 12:18 PM CASTINGS DRAFTER Albert Waller M.D. LAB BLOOD ADD-ON Performing Organization Address City/State/ZIP Code Phon e Number [facility] - [address] [place], [place] [address] [facility] [place] [address] [facility] [address] documented in this encounter Visit Diagnoses Diagnosis Malignant Neoplasm Of Bladder (HCC) - Pr imary Congestive Heart Failure (HCC) Malignant Neoplasm Of Bladder (HCC) documented in this encounter Care Teams Senior Quality Technician Relationship Specialty Start Date End Date Elsewhere, Pcp PCP - General Internal Medicine 01/14/22 documented as of this encounter
--- OUTSIDE RECORDS SUMMARY | 2022-09-20 14:14 | XMS_ITS | Encounter Summary ---
:1935 Author Organization [facility] Address [address] [place] [address] Care Team Providers Name Role Phone Elsewhere, Pcp Primary Care Provider Unavailable Reason for Visit Reason Comments Triage Encounter Details Date Type Department Care Team Description 09/03/2022 Clinical Communication Department of Neon Light Installer, [facility] Cardiovascular Medicine Ashtyn Kumar in [facility] [address] [place] [address] Social History Tobacco Use Types Packs/Day [...] you attend methodist or Patient refused 2021 congregational services? 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 documented as of this encounter Plan [...] PYELOGRAM Malignant Neoplasm Of 10/10 10:25 AM NUTRITION ASSISTANT Bladder (HCC) ENDOPYELOTOMY RETROGRADE Malignant Neoplasm Of 1 12/11/2021 10:25 AM NUTRITION ASSISTANT Bladder (HCC) CYSTOSCOPY WITH Malignant Neoplasm Of 10/10/2022 10:25 AM NUTRITION ASSISTANT TRANSURETHRAL RESECTION Bladder (HCC) LESION BLADDER documented as of this encounter Visit Diagnoses Not on filedocumented in this encounter Care Teams Sample Weaver Relationship Specialty Start Date End Date Elsewhere, Pcp PCP - General Internal Medicine 01/14/22 documented as of this encounter
--- OUTSIDE RECORDS SUMMARY | 2022-09-20 14:14 | XMS_ITS | Encounter Summary ---
:1935 Author Organization [facility] Address [address] [place] [address] Care Team Providers Name Role Phone Elsewhere, Pcp Primary Care Provider Unavailable Reason for Referral Outpatient (Routine) - Closed Specialty Diagnoses / Procedures Referred By Contact Refer red To Contact Diagnoses Congestive Heart Failure (HCC) Albert Waller M.D. [facility] Region Procedures ECG 12 Lead ECG [address] [place] [address] Referral ID Status Reason Start Date Expiration Date Visits Requ ested Visits Authorized [id number] Closed 09/03/2022 09/03/2023 1 1 [facility] Outpatient (Routine) - Authorized Specialty Diagnoses / Procedures Referred By Contact Refer red To Contact Diagnoses Congestive Heart Failure (HCC) Albert Waller M.D. [facility] Procedures DX Chest AP or PA and Lateral 2 Views DX Chest AP or PA and Lateral [address] [place] [address] Referral ID Status Reason Start Date Expiration Date Visits V isits Requested Authorized [id number] Authorized 09/03/2022 09/03/2023 1 1 [facility] Encounter Details Date Type Department Care Team Description 09/03/2022 Clinical Communication Department of Urology Albert Waller in Giovanna Batista M.D. [place] [address] [place] [id number] [phone] Social History Tobacco Use Types Packs/Day Years [...] you attend yazdanism or Patient refused 2021 confucianist services? Do [...] Date Recorded Male 09/10/2018 8:41 AM DIRECTOR CENTER documented as of this encounter Miscellaneous Notes Telephone Encounter - Neyda Diaz R.N. - 09/03/2022 2:00 PM DIRECTOR CENTER SUBJECTIVE CHIEF COMPLAINT / REASON FOR CALL Procedure needed Information Discussed Patient called and educated that on behalf of Dr. Waller I am calling to help schedule them for surgery. Patient is in agreement with plan. Patient told that 10/10/22 has been booked for their procedure with Dr. Waller Patient was educated they will need the following: Cardiac Pre-operative clearance appointment will be triaged and scheduled if indicated. Hold Anticoagulants: Patient educated to hold Asprin, and NSAIDS (ex. ibuprofen, motrin, aleve) seven days prior to the procedure Urines: Patient will obtain a urine culture and Urinalysis 10-14 days prior to procedure. Urines will be done in [place] or [place]. Orders placed for UA/UC and UC from Left Nephrostomy tube. Blue surgical booklet sent to patient via mail as stated that it is a hardship for them to travel prior to surgery; will sign consent day of surgery unless otherwise recommended. Scheduling notified and will schedule the above appointments and let the patient know via portal andphone call. No further questions. PLAN Disposition/Recommendation: Surgery has been scheduled on 10/10/22 with pre- operatives outlined above. Information/Education: patient/caller able to teach back Caller agreeable to plan of care: yes The following references were used: Nursing clinical judgement and provider Dr. Waller. [facility] Telephone Encounter - Albert Waller M.D. - 09/03/2022 9:38 AM DIRECTOR CENTER Could you please add this patient on for palliative left retrograde, possible antegrade ureteroscopy, endopyelotomy with laser and balloon, ureteral stent placement and possible transurethral resectionof bladder tumor on October 10. He will need cardiac preoperative clearance prior to surgery. Please confirm. [facility] C[facility] documented in this encounter Plan of Treatment Upcoming Encounters Date Type Specialty Care Team Description 10/10/2022 Hospital Encounter Albert Waller M.D. [address] [place] [address] (Wo rk) 10/10/2022 Surgery Potretzke, Rivera Hart RETROGRADE M.D. PYELOGRAM- possible [address] antegrade ureteroscopy, [place], [place] ureteral stent placement [id number] (Wo rk) Scheduled Orders Name Type Priority Associated Order Schedule Diagnoses Bacterial Culture, Microbiology Routine Malignant Neoplasm Exp ected: Aerobic + Susc, Of Bladder ([facility]) 09/26/2022 Urine Other Specified (Approximate ), Disorders Of Expires: Kidney And Ureter 12/04/2023 Urinalysis with Lab Routine Malignant Neoplasm Expect ed: Microscopic: Urine, Of Bladder ([facility]) 05/2022 Midstream (Approximate), Expires: 12/04/2023 Bacterial Culture, Microbiology Routine Malignant Neoplasm Exp ected: Aerobic + Susc, Of Bladder ([facility]) 09/26/20 Urine (Approximate), Expires: 12/04/2023 DX Chest AP or PA Imaging RAD - Routine (most Congestive Heart Expected: and Lateral 2 Views inpatients and all Failure ([facility]) 1 11/03/2021 outpatients) (Approximate), Expires: 12/04/2023 Scheduled Procedures Name Priority Associated Diagnoses Date/Time RETROGRADE PYELOGRAM Malignant Neoplasm Of 10/10 10:25 AM DIRECTOR CENTER Bladder (HCC) ENDOPYELOTOMY RETROGRADE Malignant Neoplasm Of 1 12/11/2021 10:25 AM DIRECTOR CENTER Bladder (HCC) CYSTOSCOPY WITH Malignant Neoplasm Of 10/10/2022 10:25 AM DIRECTOR CENTER TRANSURETHRAL RESECTION Bladder (HCC) LESION BLADDER documented as of this encounter Results ECG 12 Lead (09/06/2022 12:16 PM DIRECTOR CENTER) P athologist Signature Ventricular Rate 71 BPM MUSE ECG/Min OH Interval 156 ms MUSE QRSD Interval 96 ms MUSE QT Interval 438 ms MUSE QTC Interval 476 ms MUSE P Sabinal 62 degrees MUSE R Sabinal -16 degrees MUSE T Wave Sabinal 63 degrees MUSE Specimen Anatomical Collection Method Collection Time Receive d Time (Source) Location / / Volume Laterality 09/06/2022 12:16 09/06/2022 PM DIRECTOR CENTER 12:31 PM DIRECTOR CENTER Impressions MUSE - 09/06/2022 12:31 PM DIRECTOR CENTER Sinus rhythm Premature ventricular complexes Nonspecific T [...] Waller M.D. ECG ORDERABLES Performing Organization Address City/State/ZIP Code Phon e Number MUSE MUSE NA (ABNORMAL) Basic Metabolic Panel (09/06/2022 11:55 AM DIRECTOR CENTER) Analysis Performed At Patho logist Time Signature Potassium, S 5.3 (H) 3.6 - 5.2 09/06/2022 DTL mmol/L 1:03 PM DIRECTOR CENTER Sodium, S 143 135 - 145 09/06/2022 DTL mmol/L 1:03 PM DIRECTOR CENTER Chloride, S 101 98 - 107 09/06/2022 DTL mmol/L 1:03 PM DIRECTOR CENTER Bicarbonate, S 32 (H) 22 - 29 09/06/2022 DTL mmol/L 1:03 PM DIRECTOR CENTER Anion Gap 10 7 - 15 09/06/2022 DTL 1:03 PM DIRECTOR CENTER BUN (Blood Urea 41 (H) 8 - 24 09/06/2022 DTL Nitrogen), S mg/dL 1:03 PM DIRECTOR CENTER Creatinine 1.48 (H) 0.74 - 09/06/2022 DTL 1.35 mg/dL 1:03 PM DIRECTOR CENTER Estimated GFR 46 (L) >=60 09/06/2022 DTL (eGFR) mL/min/BSA 1:03 PM DIRECTOR CENTER Comment: Estimated GFR calculated using the 2020 CKD_EPI creatinine equation. Calcium, Total, S 9.1 8.8 - 10.2 mg/dL 09/06/2022 1:03 PM DIRECTOR CENTER DTL Glucose, S 244 (H) 70 - 140 mg/dL 09/06/2022 1:03 PM DIRECTOR CENTER D TL Specimen Anatomical Collection Method Collection Time Receive d Time (Source) Location / / Volume Laterality Blood (Blood, 09/06/2022 11:55 09/06/2022 Venous) AM DIRECTOR CENTER 12:41 PM DIRECTOR CENTER Alebrt Waller M.D. LAB BLOOD ADD-ON Performing Organization Address [facility] Phon e Number [facility] - [address] [address] Laboratories[address] (ABNORMAL) CBC without Differential (09/06/2022 11:55 AM DIRECTOR CENTER) [facility] gist Method Time Signature Hemoglobin 9.5 (L) 13.2 - 09/06/2022 DTL 16.6 g/dL 12:25 PM DIRECTOR CENTER Hematocrit 32.6 (L) 38.3 - 09/06/2022 DTL 48.6 % 12:25 PM DIRECTOR CENTER Erythrocytes 3.06 (L) 4.35 - 09/06/2022 DTL 5.65 12:25 PM DIRECTOR CENTER x10(12)/L MCV 106.5 (H) 78.2 - 09/06/2022 DTL 97.9 fL 12:25 PM DIRECTOR CENTER RBC Distrib Width 21.6 (H) 11.8 - 09/06/2022 DTL 14.5 % 12:25 PM DIRECTOR CENTER Platelet Count 607 (H) 135 - 317 09/06/2022 DTL x10(9)/L 12:25 PM DIRECTOR CENTER Leukocytes 10.1 (H) 3.4 - 9.6 09/06/2022 DTL x10(9)/L 12:25 PM DIRECTOR CENTER Specimen Anatomical Collection Method Collection Time Receive d Time (Source) Location / / Volume Laterality Blood (Blood, 09/06/2022 11:55 09/06/2022 Venous) AM DIRECTOR CENTER 12:18 PM DIRECTOR CENTER Albert Waller M.D. 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
--- OUTSIDE RECORDS SUMMARY | 2022-09-20 14:15 | XMS_ITS | Encounter Summary ---
:1935 Author Organization [facility] Address [address] [place] [address] Care Team Providers Name Role Phone Elsewhere, Pcp Primary Care Provider Unavailable Reason for Referral Outpatient (Routine) - Closed Specialty Diagnoses / Procedures Referred By Contact Refer red To Contact Urology Claude Loaiza M PAS, P.A.-C. [facility] [address] [place] [address] Referral ID Status Reason Start Date Expiration Date Visits Requ ested Visits Authorized [id number] Closed 06/14/2022 06/13/2025 1 1 Scheduling Instructions Phone visit to discuss results of CTU an d follow up RI/CAT/PET Scan (Routine) - Closed Specialty Diagnoses / Procedures Referred By Contact Refer red To Contact Radiology Diagnoses Malignant Neoplasm Of Bladder (HCC) Claude Loaiza MPAS, [facility] Procedures CT Urogram without and with IV Contrast PVic [address] [place] [address] Referral ID Status Reason Start Date Expiration Date Visits Requ ested Visits Authorized [id number] Closed 06/14/2022 06/14/2023 1 1 utpatient (Routine) - Closed Specialty Diagnoses / Procedures Referred By Contact Refer red To Contact Radiology Diagnoses Malignant Neoplasm Of Bladder (HCC) Claude Loaiza MPAS, [facility] Procedures IR Nephrostomy Tube Check Left PVic [address] [place] [address] Referral ID Status Reason Start Date Expiration Date Visits Requ ested Visits Authorized [id number] Closed 06/14/2022 06/14/2023 1 1 Reason for Visit Outpatient (Routine) - Closed Specialty Diagnoses / Procedures Referred By Contact Refer red To Contact Diagnoses Malignant Neoplasm Of Bladder (HCC) Claude Loaiza MPAS, [facility] Procedures Cystoscopy (specific provider) P.Becky.-CJluis [address] [place] [address] Referral ID Status Reason Start Date Expiration Date Visits Requ ested Visits Authorized [id number] Closed 06/14/2022 06/14/2023 1 1 Encounter Details Date Type Department Care Team Description 06/14/2022 Procedure visit Department of Urology Gibran Ruvalcaba Neoplasm Of in Jj Batista M.D. Bladder (HCC) (Primary [place] [address] [facility] Dx) [address] [place] [phone] Social History Tobacco Use Types Packs/Day Years [...] you attend denominational or Patient refused 2021 samaritan services? 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 - 06/14/2022 1:30 PM CDT Patient was seen for a cystoscopy procedure. Cystoscope CYF-VH #[id number] was used during today's cystoscopy procedure. Accessories used: cystoscope reusable (sterilized) stop cock Load number from processing via [employer]: [id number] With Nephrostogram and urethral dilation, consent was [...] Gibran Ruvalcaba M.D. Authorized by: Claude Loaiza, GALES, P.A.-C. Attempted cystoscopy. Place appropriate gel. 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 I took the [...] Hospital Encounter Albert Waller M.D. [address] [place], [place] [address] (Wo fermin) 10/10/2022 Surgery Albert Waller, Rivera ve RETROGRADE M.DJluis PYELOGRAM- possible [address] antegrade ureteroscopy, [place], [place] ureteral stent placement [id number] (Wo rk) Scheduled Procedures Name Priority Associated Diagnoses Date/Time RETROGRADE PYELOGRAM Malignant Neoplasm Of 10/10 10:25 AM BULB SORTER Bladder (HCC) ENDOPYELOTOMY RETROGRADE Malignant Neoplasm Of 1 12/11/2021 10:25 AM BULB SORTER Bladder (HCC) CYSTOSCOPY WITH Malignant Neoplasm Of 10/10/2022 10:25 AM BULB SORTER TRANSURETHRAL RESECTION Bladder (HCC) LESION BLADDER Scheduled Referrals Name Type Priority Associated Diagnoses Order S [facility] Urology office Outpatient Referral Routine Expect ed: visit (clinic) 08/22/2022 (Approximate), Expires: 09/14/2023 documented as of this encounter Procedures Procedure Name Priority Date/Time Associated Comments Diagnosis URO CYSTOSCOPY Routine 06/14/2022 2:29 PM Malignant Neoplasm R esults for this (SPECIFIC PROVIDER) CDT Of Bladder (HCC) proc edure are in the results section. CT INJ ANTEGRD Routine 06/14/2022 2:29 PM Malignant [...] nephrostomy tube was removed and a [address] a[address]. A glide head [...] nephrostomy tube was removed and a [address] aced. A glide head [...] demonstrates a UPJ stenosis. NR Claude ZELAYA, PJluisA.-C. IMG IR PROCEDURES CT Urogram without and [...] dose documented in this encounter Care Teams Log Loader Relationship Specialty Start Date End Date Elsewhere, Pcp PCP - General Internal Medicine 01/14/22 documented as of this encounter
--- OUTSIDE RECORDS SUMMARY | 2022-09-20 14:15 | XMS_ITS | Encounter Summary ---
:1935 Author Organization [facility] Address [address] [place] [address] Care Team Providers Name Role Phone Elsewhere, Pcp Primary Care Provider Unavailable Reason for Referral Outpatient (Routine) - Authorized Specialty Diagnoses / Procedures Referred By Contact Refer red To Contact Diagnoses Congestive Heart Failure (HCC) Bradycardia Sinus Marielena Alfaro APRN, [facility] [address] [place] [address] [address] [place] [address] [place] [address] Phone: [phone] Fax: Referral ID Status Reason Start Expiration Visits Visits Date Date Requested Authorized [id number] Authorized Continuity of 08/02/2023 1 1 Care 2 Encounter Details Date Type Department Care Team Description 08/01/2022 - Hospital Encounter [facility] Kajal Molina M.D., Ph.D. [address] [place] [phone] Congestive Heart Failure (HCC) (Primary Dx); 08/02/2022 [facility] Phoenix Zapata M.D., M.P.H. [address] [place] [phone] Tachycardia; [facility], [facility], Roel LazaroB.S. [address] [place] [address] Bradycardia Sinus [facility], Sixth Floor [address] [place] [phone] Social History Tobacco Use Types Packs/Day Years [...] you attend yazdanism or Patient refused 2021 episcopalian services? 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 Urology For appointment details refer to your Patient Appointment Guide. HOSPITAL COURSE Admission Weight: 82.1 kg Dismissal Weight: 82.1 kg BMI: Body mass index is 26.72 kg/m??. Mr. Chery is a 87 y.o. male who presented as a direct admission from [facility] for further evaluation of sinus bradycardia. [...] several doses of intravenous Lasix yesterday in [facility] that his scrotal edema and lower [...] did have frequent PACs and PVCs. MOME groundwater monitoring technician was placed prior to discharge and to [...] updated. He was aggressively diuresed at the [facility] and appears euvolemic. Given right-sided heart [...] fluid restriction PRIMARY PROVIDER: No care steam conditioner operator to display Primary Care Providers: Elsewhere, Pcp [...] paperwork with you to your appointments. * [place], [place] Tuesday August 09, 2022: 12:[address] Edwards, primary care provider, hospital follow up visit, at the clinic. RECOMMENDATIONS: * BMP [facility], [place] You may have outpatient appointments at [facility] that changed during your hospitalization. Refer to your [facility] Patient Visit Guide (PVG) for the most current schedule of appointments and details instructions of tests / procedures. Call [phone] if you did not receive a PVG or need to CANCEL any [facility] appointment(s). AttachmentsThe following attachments cannot be sent through Care Everywhere. Levothyroxine (By mouth) (Mauritian)Torsemide (By mouth) (Mauritian)documented in this encounter Medications at Time of [...] DNR/DNI. Aftab Viera. CT CT Job ID: [id number] Marielena Alfaro APRN, C.N.PJluis - 08/01/2022 7:14 PM CDT CARDIOLOGY INPATIENT ADMISSION NOTE CHIEF COMPLAINT/REASON FOR VISIT Bradycardia Collaborating physician: Dr. Ramos Admitting service: RST CARD 3 HISTORY OF PRESENT ILLNESS Mr. Chery is a 87 y.o. male who presented as a direct admission from [facility] for further evaluation of bradycardia. Per patient's [...] several doses of intravenous Lasix yesterday in [facility] that his scrotal edema and lower [...] the [facility] in [place]. He has medical comorbidities including, but not [...] History: Diagnosis Date Atherosclerotic Heart Disease Of [place] Coronary Artery Without Angina Pectoris Cardiomyopathy Dilated [...] Normal lungs. Normal aorta. 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 Patient has noted previous bradycardia secondary to beta blockers. He presented to the [facility] with volume overload and was diuresed [...] with reassessment on a day-to-day basis. 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 no benefits: No Advance Directives Legal Decision Maker: Self Advance Directives: N/A Advance Directives Status: N/A OBJECTIVE Baseline Functional Status Baseline Activities of Daily Living Mobility: Independent Dressing: Independent Feeding: Independent Bathing: Independent Grooming: Independent Toileting: Independent Behavior: Appropriate, Pleasant, Calm, Cooperative Communication: Talks, Understands speaking, Understands Mauritian Shopping: Independent Transportation: Support from family Medication Management: Independent Housekeeping: Needs assistance Meal Prep: Needs assistance Managing Finances: Independent Assistive Devices: Eyeglasses, Dentures, Oxygen Home Oxygen Company: [employer] Services/Resources: Home health Agency Name: [facility] Provided: USP, PT Baseline Services/Resources Primary care clinic and provider: ELSEWHERE, PCP Services/Resources: Home health Anticipated Needs Functional Status: None Assistive Devices: Walker - front wheeled, Oxygen, Eyeglasses Services/Resources: Home health Agency Name: [facility] Provided: USP, PT Anticipated Modifications to the Patient's Home: None Transportation Needs: Support from family Does the patient need discharge transport arranged?: No Phone Number for Ride/Caregiver: [phone]/Miesha - and grandson Anticipated Discharge Destination: Home or Self Care ASSESSMENT / PLAN Assessment: The catalyst recovery operator met with Henok Chery to discuss his current hospitalization and home going needs. The patient was accompanied by , Miesha . The patient was a reliable historian. The role of catalyst recovery operator was reviewed. The patient and patient's reviewed his prior level of care and support system. The patient receives support from his . The patient and patient's described his living environment as a single level home with level entry. Housekeeping, grocery shopping, meal prep, and other household responsibilities have previously been completed by patient and patient's . catalyst recovery operator discussed the patient's potential needsat dismissal based [...] questions. provided name of HH provider of [facility] for Home Oxygen supplies. At this time, the care team anticipates the patient requires the following services to be reconnected: home healthcare and oxygen. The patient's identified the following as their current vendor(s): [facility] and [facility] [employer]. The team also shared the patient will potentiallyrequire the following service(s) to be set up: home healthcare and oxygen. After reviewing the patient's chart and meeting with the patient's , the catalyst recovery operator deemed the LACE+/readmission questions were appropriate. The [...] admission could not have been prevented. The catalyst recovery operator will share this information with the care team. The patient's reports understanding that he will dismiss from the hospital TODAY this afternoon. Pending hospital course and medical readiness, no barriers to dismissal have been identified at this time. Plan: The patient's agrees with the following plan. Patient's anticipated discharge disposition is: Home with Home Healthcare Reconnected: [facility] for Oxygen Transportation upon dismissal will be provided by family--Grandson . catalyst recovery operator recommended nothing at this time. catalyst recovery operator provided information regarding the dismissal process. catalyst recovery operator placed or requested the following hospital-based consult orders and/or referrals: None. catalyst recovery operator will continue to assess for homegoing needs with the interdisciplinary team. catalyst recovery operator encouraged the patient to reach out with any questions/concerns. Oxygen Reconnect: Durable Medical Equipment - Admitted Since 08/01/2022 Service Provider Selected Services Address Phone Fax Patient Preferred [facility] Durable Medical Equipment [address], [facility] [address] -- Contact: Staff Respiratory Equipment : Portable concentrator, 02 concepts, [place] adaptor Oxygen provider reports patient???s current orders [...] Services Address Phone Fax Patient Preferred [facility] [address] [place] [address] [phone] -- Contact: Staff NURSING: - Complete documentation in the Discharge Navigator including Nursing Report Info and Facility/NextLevel of Care Info - Call report and arrange for the patient???s first visit. - Send required packet of dismissal information with patient, including After Visit Summary and advance directive. PRIMARY SERVICE: - Please provide a non-[facility] home health order for resumption of previous [...] to home self care; [facility], an updated oxygen prescription and a [...] who presented as a direct admission from [facility] for further evaluation of sinus bradycardia. [...] several doses of intravenous Lasix yesterday in [facility] that his scrotal edema and lower [...] did have frequent PACs and PVCs. MOME groundwater monitoring technician was placed prior to discharge and to [...] updated. He was aggressively diuresed at the [facility] and appears euvolemic. Given right-sided heart [...] 10/10/2022 Hospital Encounter Albert Waller M.D. [address] [place] [phone] (Octavio christensen) 10/10/2022 Surgery Albert Waller Palliati ve RETROGRADE M.D. PYELOGRAM- possible [address] antegrade ureteroscopy, JAIMEE [place] ureteral stent placement [id number] (Octavio christensen) Scheduled Procedures Name Priority Associated Diagnoses Date/Time RETROGRADE PYELOGRAM Malignant Neoplasm Of 10/10 10:25 AM DRUG ABUSE SOCIAL WORKER Bladder (HCC) ENDOPYELOTOMY RETROGRADE Malignant Neoplasm Of 1 12/11/2021 10:25 AM DRUG ABUSE SOCIAL WORKER Bladder (HCC) CYSTOSCOPY WITH Malignant Neoplasm Of 10/10/2022 10:25 AM DRUG ABUSE SOCIAL WORKER TRANSURETHRAL RESECTION Bladder (HCC) LESION BLADDER Scheduled Referrals Name Type Priority Associated Diagnoses Order S [facility] Outpatient Referral Routine Congestive Heart Ord [...] Duration 0 sec duration INFOBIONIC MOME [employer] [place] 0% percent INFOBIONIC [place]OME [place] Runs 1114 [...] The patient reported no symptomatic e vents. Enrolled Nurse: VENKATESH Perrin / VENKATESH Devine Procedure Note [...] The patient reported no symptomatic e vents. Enrolled Nurse: VENKATESH Perrin / VENKATESH Devine Marielena Alfaro [...] Address City/State/ZIP Code Phon e Number POC [facility] [address] [place] [address] PCLX [facility] [place] [address] [place] POC [address] DX Chest [...] T3 2.2 (L) 2.8 - 4.4 08/02/2022 [facility] (Triiodothyron pg/mL 12:00 PM CDT ine), Free, S Specimen Anatomical Collection Method Collection Time Receive d Time (Source) Location / / Volume Laterality Blood (Blood, 08/02/2022 6:07 AM 08/02/20 Venous) CDT 11:03 AM CDT Marielena Alfaro APRN, C.N.P. LAB BLOOD ADD-ON Performing Organization Address City/[facility]/ZIP Code Phon e Number [facility] [address] [place], [place] [address] [place], [place] [id number] [place] [address] [place] (ABNORMAL) T4 (Thyroxine), Free (08/02/2022 [...] [facility]/ZIP Code Phon e Number [facility] - [address] [place], [place] [address] [facility] [place] [address] [facility] [address] Thyroperoxidase (TPO) Antibodies, Serum (08/02/2022 6:07 AM CDT) [facility] gist Method Time Signature Thyroperoxidase Ab, <0.3 <9.0 08/02/2022 DTL S IU/mL 9:20 AM CDT Specimen Anatomical Collection Method Collection Time Receive d Time (Source) Location / / Volume Laterality Blood 08/02/2022 6:07 AM 10/14/202 2 6:45 CDT AM CDT Marielena Alfaro APRN, C.N.P. LAB BLOOD NON ADD-ON Performing Organization Address City/[facility] Phon e Number [facility] - [address] (ABNORMAL) T4 (Thyroxine), Free, Serum (08/02/2022 6:07 AM CDT) athologist Signature T4 0.7 (L) 0.9 - 1.7 08/02/2022 DTL (Thyroxine), ng/dL 7:37 AM CDT Free, S Specimen Anatomical Collection Method Collection Time Receive d Time (Source) Location / / Volume Laterality Blood 08/02/2022 6:07 AM 6:45 CDT AM CDT Marielena Alfaro APRN, Aram.N.P. LAB BLOOD ADD-ON Performing Organization Address [facility] Phon e Number [facility] - [id number] [place] [address] Lipid Panel (08/02/2022 6:07 AM CDT) athologist [...] Non-HDL, Calculated 64 mg/dL 7:17 AM CDT DT Comment: ----REFERENCE VALUE---- Desirable: <130 mg/dL Above Desirable: 130-159 mg/dL Borderline High: 160-189 mg/dL High: 190-219 mg/dL Very High: > or =220 mg/dL Fasting (8 HR or more) [id number] 08/02/2022 6:45 A M CDT DT Specimen Anatomical Collection Method Collection Time Receive d Time (Source) Location / / Volume Laterality Blood (Blood, 08/02/2022 6:07 AM 08/02/20 6:45 Venous) CDT AM CDT Marielena Alfaro APRN, C.N.P. LAB BLOOD ADD-ON Performing Organization Address City/[facility] Code Phon e Number [facility] - [address] [place] [address] [place] [address] (ABNORMAL) Hemoglobin A1c (08/02/2022 6:07 AM CDT) P athologist Signature Hemoglobin A1c, 6.3 (H) 4.0 - 5.6 08/02/2022 DT B % 7:07 AM CDT Comment: Hemoglobin [...] [facility]/ZIP Code Phon e Number [facility] - [address] [place] [address] Laboratories-[address] (ABNORMAL) Thyroid Function [place] (08/02/2022 6:07 AM CDT) P athologist Signature TSH, Sensitive 21.0 (H) 0.3 - 4.2 08/02/2022 DTL mIU/L 7:17 AM CDT Specimen Anatomical Collection Method Collection Time Receive d Time (Source) Location / / Volume Laterality Blood (Blood, 08/02/2022 6:07 AM 08/02/20 6:45 Venous) CDT AM CDT Marielena Alfaro APRN, C.N.P. LAB BLOOD ADD-ON Performing Organization Address City/[facility] Code Phon e Number [facility] - [address] [place] [address] [facility]ly [facility]-[address] Type and Screen (with reflex Antibody ID) (08/02/2022 6:07 AM CDT) [facility] Method Time Signature ABORh A Pos Not 08/02/2022 STRM applicable 6:44 AM CDT Antibody Negative Negative 08/02/2022 STRM Screen 6:58 AM CDT Type & Screen 08/05/2022 08/02/2022 STRM Expiration 23:59 6:44 AM CDT Testing [place] DEFAULT 08/02/2022 STRM Location 6:22 AM CDT Specimen Anatomical Collection Method Collection Time Receive d Time (Source) Location / / Volume Laterality Blood (Blood, 08/02/2022 6:07 AM 08/02/20 6:22 Venous) CDT AM CDT Marielena Alfaro APRN, C.N.P. LAB BLOOD BANK TEST ORDE RABLES Performing Organization Address City/[facility] Phon e Number [facility] - 200 [place] [address] [facility] [place] [address] (ABNORMAL) CBC without Differential (08/02/2022 6:07 AM CDT) [facility] Method Time Signature Hemoglobin 8.1 [...] C.N.P. LAB BLOOD ADD-ON Performing Organization Address City/State/[facility] Code Phon e Number [facility] - [address] [place] [address] [facility] [place] [address] Laboratories-[facility] 200 [facility] (ABNORMAL) Comprehensive Metabolic Panel (08/02/2022 6:07 [...] Organization Address City/State/ZIP Code Phon e Number [facility] - [address] [place] [address] [facility] [place] [address] Laboratories-[facility] 200 [facility] ECG 12 Lead (08/01/2022 7:54 PM CDT) P athologist Signature Ventricular Rate 75 BPM MUSE ECG/Min [place] Interval 170 ms MUSE QRSD Interval 96 ms MUSE QT Interval 418 ms MUSE QTC Interval 466 ms MUSE P [place] 80 degrees MUSE R [place] -25 degrees MUSE T Wave [place] 100 degrees MUSE Specimen Anatomical Collection Method [...] Organization Address City/[facility] Phon e Number [facility] - [address] (ABNORMAL) NT-Pro B-Type Natriuretic Peptide (BNP) [...] C.N.P. LAB BLOOD ADD-ON Performing Organization Address City/State/[facility] Phon e Number [facility] - [address] (ABNORMAL) CBC with Differential, Blood (08/01/2022 6:50 PM CDT) [facility] gist Method Time Signature Hemoglobin 8.3 [...] Organization Address City/State/ZIP Code Phon e Number [facility] - [address] [place], [place] [address] [place] [address] Laboratories-[facility] [address] ECG 12 Lead (08/01/2022 6:38 PM CDT) P athologist Signature Ventricular Rate 72 BPM MUSE ECG/Min [place] Interval 182 ms MUSE QRSD Interval 98 ms MUSE QT Interval 406 ms MUSE QTC Interval 444 ms MUSE P [place] 69 degrees MUSE R [place] -19 degrees MUSE T Wave [place] 96 degrees MUSE Specimen Anatomical Collection Method [...] (HCC) Hypothyroidism Bradycardia Sinus Beat Premature Ventricular Malignant Neoplasm Of Bladder (HCC) documented in this encounter Admitting Diagnoses Diagnosis [...] 08/01/2022 08/02/2022 amLODIPine tablet 2.5 mg (NORVASC) 08 (Given - Provider: Maria D Andrews RJluisN.) 2.5 mg, oral, Daily, First dose on Fri08/02/[address] tablet 81 mg 816 (Gi austyn - Provider: Maria D Andrews R.N.) 81 mg, oral, Daily, First dose on Fri at 0900, Swallow whole. Do NOT crush, chew, or split tablet. buPROPion XL 24 hr tablet 300 mg (WELLBUTRIN XL) 816 (Given - Provider: Maria D Andrews R.N.) 300 mg, oral, Daily, First dose on Fri 1 at 0900, Swallow whole. Do NOT crush, chew, or split tablet. cholecalciferol (vitamin D3) tablet 25 mcg 816 (Given - Provider: Maria D Andrews RJluisNJluis) 25 mcg, oral, Daily, First dose on Fri at 0900, cholecalciferol (vitamin D3) orderable was interchanged for cholecalciferol (vitamin D3) tablet/capsule finasteride tablet 5 mg (PROSCAR) 0817 (Given - Provider: Maria D Andrews RJluisNJluis) 5 mg, oral, Daily, First dose on [...] Provider: Maria D Andrews RJluisN. - Reason: Patient/family refused) 0-7 Units, subcutaneous, [...] (Given - Provider: Maria D Andrews R.N.) 125 mcg, oral, Daily before breakfast, First dose on Fri [address] tablet 40 mg (PROTONIX) 0817 (Given - Provider: Maria D Andrews R.N.) 40 mg, oral, Daily before breakfast, Fir st dose on Fri08/02/22 at 0700, pantoprazole 40 mg oral daily was interchanged for omeprazole 20 or 40 mg oral daily Swallow whole. Do NOT crush, chew, or split tablet. sodium chloride 0.9 % injection 3 mL 205 5 (Given - Provider: Priya Grewal R.N.) 0800 (Given - Provider: Maria D Andrews R.N.) 3 mL, intravenous, Every 12 hours schedu led, First dose on Fri08/01/22 at 2100, Peripheral Intravenous Catheter and Rapid Infusion Catheter, when no infusion to maintain patency tamsulosin 24 hr capsule 0.4 mg (FLOMAX) 0817 (Given - Provider: Maria D Andrews R.N.) 0.4 mg, oral, Daily, First [...] mg of calcium, oral, Every 2 hour OH N, indigestion, Not to exceed 12 tablets [...] As needed, line care , Starting on Fri08/01/22 at 1817, Peripheral Intravenous Catheter and Rapid Infusion Catheter, prior to blood sampling, post blood transfusion or post blood sampling sodium chloride 0.9 % injection 3 mL 3 mL, intravenous, As needed, line care, Starting on Lise 08/01/22 at 1817, Prior to and following infusion and between multiple consecutive infusions: sodium chloride 0.9 % injection documented in this encounter Care Teams Analytics Associate Relationship Specialty Start Date End Date Elsewhere, Pcp PCP - General Internal Medicine 01/14/22 documented as of this encounter
--- OUTSIDE RECORDS SUMMARY | 2022-09-20 14:15 | XMS_ITS | Encounter Summary ---
:1935 Author Organization [facility] Address [address] [place] [address] Care Team Providers Name Role Phone Elsewhere, Pcp Primary Care Provider Unavailable Reason for Referral Outpatient (Routine) - Closed Specialty Diagnoses / Procedures Referred By Contact Refer red To Contact Diagnoses Malignant Neoplasm Of Bladder (HCC) Claude Loaiza MPAS, [facility] Procedures URO Nephrostogram P.A.-C. 200 [place], [place] [address] Referral ID Status Reason Start Date Expiration Date Visits Requ ested Visits Authorized [id number] Closed 06/14/2022 06/14/2023 1 1 utpatient (Routine) - Closed Specialty Diagnoses / Procedures Referred By Contact Refer red To Contact Diagnoses Malignant Neoplasm Of Bladder (HCC) Claude Loaiza MPAS, [facility] Procedures Cystoscopy (specific provider) P.A.-C. [address] [place], [place] [phone] Referral ID Status Reason Start Date Expiration Date Visits Requ ested Visits Authorized [id number] Closed 06/14/2022 06/14/2023 1 1 Reason for Visit Outpatient (Routine) - Closed Specialty Diagnoses / Procedures Referred By Contact Refer red To Contact Urology Armida Botello, EDWARD, C.N.P., [facility] D.N.P. 200 [place] [address] Referral ID Status Reason Start Date Expiration Date Visits Requ ested Visits Authorized [id number] Closed 05/17/2022 05/17/2023 1 1 Encounter Details Date Type Department Care Team Description 06/14/2022 Comprehensive Visit Department of Gibran Ruvalcaba Neoplasm Urology in Ashtyn Gardner Of Bladder ([facility]) [place], [place] 200 [facility] (Primary Dx) 200 [place] [phone] Social History Tobacco Use Types Packs/Day Years [...] you attend rastafarian or Patient refused 2021 yarsani services? 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 Patient was seen in [facility] clinic forfurther evaluation of this urinary retention [...] meet Mr. Chery, his , and his epleyfsl-lv-ozs in clinic today in conjunction with Dr. [...] for the patient today. This includes both zgsi-mh-opxy and lwqkobz-xm-nzwu time. documented in this encounter Plan of Treatment Upcoming Encounters Date Type Specialty Care Team Description 10/10/2022 Hospital Encounter Albert Waller M.D. [address] [place] [phone] (Octavio christensen) 10/10/2022 Surgery Albert Waller Palliati ve RETROGRADE M.D. PYELOGRAM- possible [address] [place] antegrade ureteroscopy, [place], [place] ureteral stent placement [id number] (Octavio christensen) Scheduled Procedures Name Priority Associated Diagnoses Date/Time RETROGRADE PYELOGRAM Malignant Neoplasm Of 10/10 10:25 AM MANAGER DIALYSIS Bladder (HCC) ENDOPYELOTOMY RETROGRADE Malignant Neoplasm Of 1 12/11/2021 10:25 AM MANAGER DIALYSIS Bladder (HCC) CYSTOSCOPY WITH Malignant Neoplasm Of 10/10/2022 10:25 AM MANAGER DIALYSIS TRANSURETHRAL RESECTION Bladder (HCC) LESION BLADDER documented as of this encounter Results URO [...] (HCC) documented in this encounter Care Teams Websphere Commerce Architect Relationship Specialty Start Date End Date Elsewhere, Pcp PCP - General Internal Medicine 01/14/22 documented as of this encounter
--- OUTSIDE RECORDS SUMMARY | 2022-09-20 14:15 | XMS_ITS | Encounter Summary ---
:1935 Author Organization [facility] Address 200 [place] [address] Care Team Providers Name Role Phone Elsewhere, Pcp Primary Care Provider Unavailable Reason for Referral Outpatient (Routine) - Closed Specialty Diagnoses / Procedures Referred By Contact Refer red To Contact Radiology Diagnoses Malignant Neoplasm Of Bladder (HCC) Nura David IV [facility] Procedures IR Nephrostomy Tube Exchange Left M.D. 200 [place] [address] Referral ID Status Reason Start Date Expiration Date Visits Requ ested Visits Authorized [id number] Closed 05/20/2022 05/20/2023 1 1 Encounter Details Date Type Department Care Team Description 05/20/2022 Orders Only Department of Urology Nura David Malignant Neoplasm Of in Becky Batista IV, M.D. Bladder (HCC) (Primary [place] 200 [facility] Dx) 200 [place] [phone] Social History Tobacco Use Types Packs/Day Years [...] 05/17/2022 organizations such as mu-ism groups, unions, fraCarsabi or athletic groups, or school groups? 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 [address] [place] [phone] (Octavio christensen) 10/10/2022 Surgery Albert Waller Palliati ve RETROGRADE M.D. PYELOGRAM- possible [address] [place] antegrade ureteroscopy, [place] ureteral stent placement [id number] (Octavio christensen) Scheduled Procedures Name Priority Associated Diagnoses Date/Time RETROGRADE PYELOGRAM Malignant Neoplasm Of 10/10 10:25 AM PREPARATION PLANT REPAIRER Bladder (HCC) ENDOPYELOTOMY RETROGRADE Malignant Neoplasm Of 1 12/11/2021 10:25 AM PREPARATION PLANT REPAIRER Bladder (HCC) CYSTOSCOPY WITH Malignant Neoplasm Of 10/10/2022 10:25 AM PREPARATION PLANT REPAIRER TRANSURETHRAL RESECTION Bladder (HCC) LESION BLADDER documented as of this encounter Results IR [...] nephrostomy tube was removed and a [address] aced. A glide head [...] nephrostomy tube was removed and a [address] aced. A glide head [...] (HCC) documented in this encounter Care Teams Service Assistant Relationship Specialty Start Date End Date Elsewhere, Pcp PCP - General Internal Medicine 01/14/22 documented as of this encounter
--- OUTSIDE RECORDS SUMMARY | 2022-09-20 14:15 | XMS_ITS | Encounter Summary ---
:[address] [facility] Address [address] [place] [address] Care Team Providers Name Role Phone Elsewhere, Pcp Primary Care Provider Unavailable Reason for Referral MRI/CAT/PET Scan (Routine) - Closed Specialty Diagnoses / Procedures Referred By Contact Refer red To Contact Radiology Diagnoses [facility] Urogram without and with IV Contrast C.N.P., D.N.P. 200 [place] [address] Referral ID Status Reason Start Date Expiration Date Visits Requ ested Visits Authorized [id number] Closed 05/17/2022 05/17/2023 1 1 Reason for Visit MRI/CAT/PET Scan (Routine) - Closed Specialty Diagnoses / Procedures Referred By Contact Refer red To Contact Radiology Diagnoses [facility]dronephrosis [facility] CT Urogram without and with IV Contrast C.N.P., D.N.P. 200 [place] [address] Referral ID Status Reason Start Date Expiration Date Visits Requ ested Visits Authorized [id number] Closed 05/17/2022 05/17/2023 1 1 Encounter Details Date Type Department Care Team Description 05/23/2022 Hospital Encounter Department of Rosmery, Armida [place] nephrosis Radiology, José Dubois APRN, C.N.P., Building, in [facility] EdwigeN.P. [place] [address] [facility] [address] [place] [phone] Social History Tobacco Use Types Packs/Day Years [...] at Date Recorded Male 09/10/2018 8:41 AM STRETCH BOX TENDER documented as of this encounter Last Filed [...] M.D. [address] [place], [place] [phone] (Wo fermin) 10/10/2022 Surgery Albert Waller Palliati ve RETROGRADE M.DJluis PYELOGRAM- possible [address] [place] antegrade ureteroscopy, [place], [place] ureteral stent placement [id number] (Wo rk) Scheduled Procedures Name Priority Associated Diagnoses Date/Time RETROGRADE PYELOGRAM Malignant Neoplasm Of 10/10 10:25 AM STRETCH BOX TENDER Bladder (HCC) ENDOPYELOTOMY RETROGRADE Malignant Neoplasm Of 1 12/11/2021 10:25 AM STRETCH BOX TENDER Bladder (HCC) CYSTOSCOPY WITH Malignant Neoplasm Of 10/10/2022 10:25 AM STRETCH BOX TENDER TRANSURETHRAL RESECTION Bladder (HCC) LESION BLADDER documented [...] Orders documented in this encounter Care Teams Assistant Football Coach Relationship Specialty Start Date End Date Elsewhere, Pcp PCP - General Internal Medicine 01/14/22 documented as of this encounter
--- OUTSIDE RECORDS SUMMARY | 2022-09-20 14:15 | XMS_ITS | Encounter Summary ---
:1935 Author Organization [facility] Address [address] [place] [address] Care Team Providers Name Role Phone Elsewhere, Pcp Primary Care Provider Unavailable Encounter Details Date Type Department Care Team Description 05/17/2022 Hospital Encounter Department of Armida Botello nephrosis; Laboratory Medicine L, RETINA SUBSPECIALIST, Tavia t Neoplasm Of Bladder (HCC) and Pathology, C.N.P., D.N.PFormerly [facility] in [address] [place] [address] [place] [address] [place], [place] [phone] (Work) [phone] Social History Tobacco Use Types Packs/Day Years [...] you attend episcopalian or Patient refused 2021 orthodox services? 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 [address] [place] [phone] (Wo rk) 10/10/2022 Surgery Albert Waller Palliati ve RETROGRADE Ashtyn PYELOGRAM- possible [address] [place] antegrade ureteroscopy, [place] ureteral stent placement [id number] (Wo rk) Scheduled Procedures Name Priority Associated Diagnoses Date/Time RETROGRADE PYELOGRAM Malignant Neoplasm Of 10/10 10:25 AM FIELD FOREMAN Bladder (HCC) ENDOPYELOTOMY RETROGRADE Malignant Neoplasm Of 1 12/11/2021 10:25 AM FIELD FOREMAN Bladder (HCC) CYSTOSCOPY WITH Malignant Neoplasm Of 10/10/2022 10:25 AM FIELD FOREMAN TRANSURETHRAL RESECTION Bladder (HCC) LESION BLADDER documented as of this encounter Visit Diagnoses Diagnosis Hydronephrosis 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
--- OUTSIDE RECORDS SUMMARY | 2022-09-20 14:15 | XMS_ITS | Encounter Summary ---
:1935 Author Organization [facility] Address [address] [place] [address] Care Team Providers Name Role Phone Elsewhere, Pcp Primary Care Provider Unavailable Encounter Details Date Type Department Care Team Description 06/19/2022 Clinical Communication Department of Urology Analisa Ruvalcaba in [facility] lonny Gardner M.D. 200 [facility] 200 [place] [phone] Social History Tobacco Use Types Packs/Day Years [...] you attend jainism or Patient refused 2021 oriental orthodox services? 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 Would a nurse be able to return a call to them please? Does caller have Auth on file: Ok to respond via portal: No Best Number to be reached at: [phone] Best time of day to call: Pharmacy [...] PYELOGRAM Malignant Neoplasm Of 10/10 10:25 AM PLODDER OPERATOR Bladder (HCC) ENDOPYELOTOMY RETROGRADE Malignant Neoplasm Of 1 12/11/2021 10:25 AM PLODDER OPERATOR Bladder (HCC) CYSTOSCOPY WITH Malignant Neoplasm Of 10/10/2022 10:25 AM PLODDER OPERATOR TRANSURETHRAL RESECTION Bladder (HCC) LESION BLADDER documented as of this encounter Visit Diagnoses Not on filedocumented in this encounter Care Teams Scraper Meat Relationship Specialty Start Date End Date Elsewhere, Pcp PCP - General Internal Medicine 01/14/22 documented as of this encounter
--- OUTSIDE RECORDS SUMMARY | 2022-09-20 14:15 | XMS_ITS | Encounter Summary ---
:1935 Author Organization [facility] Address 200 [place] [address] Care Team Providers Name Role Phone Elsewhere, Pcp Primary Care Provider Unavailable Reason for Visit Outpatient (Routine) - Closed Specialty Diagnoses / Procedures Referred By Contact Refer red To Contact Radiology Diagnoses Malignant Neoplasm Of Bladder (HCC) Hydronephrosis Gibran Ruvalcaba M.D. [facility] Procedures IR Nephrostomy Tube Exchange Left IR Nephrostomy Tube Check Left 200 [place] [address] Referral ID Status Reason Start Date Expiration Date Visits Requ ested Visits Authorized [id number] Closed 07/01/2022 07/01/2023 1 1 Encounter Details Date Type Department Care Team Description 07/02/2022 Hospital Encounter Department of Gibran Ruvalcaba M.D. 200 [place] [address] Malignant Neoplasm Of Bladder (HCC); Radiology in Beatriz Leblanc M.D. 200 [place] [address] Hydronephrosis Blade Batista [place], M.D. 200 [place] [address] [place] [id number] [place] [address] Social History Tobacco Use Types [...] many times do you More than three lacides es a week 05/17/2022 talk on the phone with family, friends, or neighbors? How often do you get together with friends Three times a wee k 05/17/2022 or relatives? How often do you attend scientologist or Patient refused 2021 baptism services? Do you belong to any clubs or No 05/17/2022 organizations such as scientologist groups, unions, fraAnzode or athletic groups, or school groups? How [...] Date Recorded Male 09/10/2018 8:41 AM CHIEF MERCHANDISING OFFICER documented as of this encounter Last Filed [...] Everywhere.Care of Your Nephrostomy or Nephroureteral Tube (Qatari)documented in this encounter Medications at Time of [...] as of this encounter Procedure Notes Julia Mruguia M.D. - 07/02/2022 8:52 AM CDT PATIENT [...] Albert Waller M.D. [address] [place] [phone] (Octavio christensen) 10/10/2022 Surgery Albert Waller Palliati ve RETROGRADE M.D. PYELOGRAM- possible [address] [place] antegrade ureteroscopy, [place] ureteral stent placement [id number] (Octavio christensen) Scheduled Procedures Name Priority Associated Diagnoses Date/Time RETROGRADE PYELOGRAM Malignant Neoplasm Of 10/10 10:25 AM CHIEF MERCHANDISING OFFICER Bladder (HCC) ENDOPYELOTOMY RETROGRADE Malignant Neoplasm Of 1 12/11/2021 10:25 AM CHIEF MERCHANDISING OFFICER Bladder (HCC) CYSTOSCOPY WITH Malignant Neoplasm Of 10/10/2022 10:25 AM CHIEF MERCHANDISING OFFICER TRANSURETHRAL RESECTION Bladder (HCC) LESION BLADDER [...] d raining. TECHNIQUE: Prone positioning. Fluoroscop ic entry level assistant manager image demonstrates the likely malpositioning of the [...] Over a torque wire, a new 12 Togolese by 25 cm pigtail catheter was advanced [...] d raining. TECHNIQUE: Prone positioning. Fluoroscop ic entry level assistant manager image demonstrates the likely malpositioning of the [...] Over a torque wire, a new 12 Togolese by 25 cm pigtail catheter was advanced [...] Diagnosis Malignant Neoplasm Of Bladder (HCC) Hydronephrosis Malignant Neoplasm Of Bladder (HCC) documented [...] NaCl (iso-osm) IVPB 500 mg (FLAGYL) (COMPLETED) 844 (New Bag - Provider: Negrita Persaud R.N.) [...] iohexoL 300 mg iodine/mL solution (OMNIPAQUE) (COMPLETED) 0843 (Given - Provider: Beatriz Leblanc M.D.) Code/trauma/sedation medication, Starting on Fri07/02/22 at 0843 lidocaine-sodium bicarbonate (buffered) 0.9%-8.4% injection (COM PLETED) 0843 (Given - Provider: Beatriz Leblanc M.D.) infiltration, Code/trauma/sedation medication, Starting on T 07/02/22 at 0843 midazolam (PF) injection 0.5 mg (VERSED) (COMPLETED) 08 (Given - Provider: Negrita Persaud R.N.) 0.5 mg, intravenous, Once as needed, sed ation, Starting on Fri07/02/22 at 0803, For 1 dose, Preprocedure (RAD) midazolam (PF) injection 0.5 mg (VERSED) 08 (Given - Provider: Negrita Persaud R.N.) 0.5 [...] injection documented in this encounter Care Teams Allergy Nurse Relationship Specialty Start Date End Date Elsewhere, Pcp PCP - General Internal Medicine 01/14/22 documented as of this encounter
--- OUTSIDE RECORDS SUMMARY | 2022-09-20 14:15 | XMS_ITS | Encounter Summary ---
:1935 Author Organization [facility] Address [address] [place] [address] Care Team Providers Name Role Phone Elsewhere, Pcp Primary Care Provider Unavailable Encounter Details Date Type Department Care Team Description 05/17/2022 Hospital Encounter Department of Armida Botello nephrosis; Laboratory Medicine L, OCCUPATIONAL THERAPY ASST, Tavia t Neoplasm Of Bladder (HCC) and Pathology, C.N.P., [facility] in [address] [place] [address] [place] [address] [place], [place] [phone] (Work) [phone] Social History Tobacco Use Types Packs/Day Years [...] you attend voodoo or Patient refused 2021 sabianist services? 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 [address] [place] [phone] (Wo rk) 10/10/2022 Surgery Albert Waller Palliati ve RETROGRADE Ashtyn PYELOGRAM- possible [address] [place] antegrade ureteroscopy, [place] ureteral stent placement [id number] (Wo rk) Scheduled Procedures Name Priority Associated Diagnoses Date/Time RETROGRADE PYELOGRAM Malignant Neoplasm Of 10/10 10:25 AM ROUTE SPECIALIST Bladder (HCC) ENDOPYELOTOMY RETROGRADE Malignant Neoplasm Of 1 12/11/2021 10:25 AM ROUTE SPECIALIST Bladder (HCC) CYSTOSCOPY WITH Malignant Neoplasm Of 10/10/2022 10:25 AM ROUTE SPECIALIST TRANSURETHRAL RESECTION Bladder (HCC) LESION BLADDER [...] City/State/ZIP Code Phon e Number [facility] - [address] [place], [place] [address] [facility] [place] [address] [facility] [address] documented in this encounter Visit Diagnoses Diagnosis Hydronephrosis 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
--- OUTSIDE RECORDS SUMMARY | 2022-09-20 14:15 | XMS_ITS | Encounter Summary ---
:1935 Author Organization [facility] Address [address] [place] [address] Care Team Providers Name Role Phone Elsewhere, Pcp Primary Care Provider Unavailable Encounter Details Date Type Department Care Team Description 06/14/2022 Orders Only [facility] [place] GARCIA PEmaC. 200 [facility] 200 [place] [address] [place], [place] [phone] (Wo rk) Social History Tobacco Use Types [...] you attend mormon or Patient refused 2021 jewish services? Do [...] Date Recorded Male 09/10/2018 8:41 AM COVER SEAMER documented as of this encounter Plan of Treatment Upcoming Encounters Date Type Specialty Care Team Description 10/10/2022 Hospital Encounter Albert Waller M.D. [address] [place] [phone] (Octavio rk) 10/10/2022 Surgery Albert Waller Palliati ve RETROGRADE M.D. PYELOGRAM- possible [address] [place] antegrade ureteroscopy, [place] ureteral stent placement [id number] (Wo rk) Scheduled Procedures Name Priority Associated Diagnoses Date/Time RETROGRADE PYELOGRAM Malignant Neoplasm Of 10/10 10:25 AM COVER SEAMER Bladder (HCC) ENDOPYELOTOMY RETROGRADE Malignant Neoplasm Of 1 12/11/2021 10:25 AM COVER SEAMER Bladder (HCC) CYSTOSCOPY WITH Malignant Neoplasm Of 10/10/2022 10:25 AM COVER SEAMER TRANSURETHRAL RESECTION Bladder (HCC) LESION BLADDER documented as of this encounter Visit Diagnoses Not on filedocumented in this encounter Care Teams Program Project Manager Relationship Specialty Start Date End Date Elsewhere, Pcp PCP - General Internal Medicine 01/14/22 documented as of this encounter
--- OUTSIDE RECORDS SUMMARY | 2022-09-20 14:15 | XMS_ITS | Encounter Summary ---
:1935 Author Organization [facility] Address [address] [place] [address] Care Team Providers Name Role Phone Elsewhere, Pcp Primary Care Provider Unavailable Reason for Referral Outpatient (Routine) - Closed Specialty Diagnoses / Procedures Referred By Contact Refer red To Contact Radiology Diagnoses Malignant Neoplasm Of Bladder (HCC) Nura David IV, [facility] Procedures IR Nephrostomy Tube Exchange Left M.D. 200 [place], [place] [phone] Referral ID Status Reason Start Date Expiration Date Visits Requ ested Visits Authorized [id number] Closed 02/22/2022 02/22/2023 1 1 Reason for Visit Outpatient (Routine) - Closed Specialty Diagnoses / Procedures Referred By Contact Refer red To Contact Radiology Diagnoses Malignant Neoplasm Of Bladder (HCC) Nura David IV [facility] Procedures IR Nephrostomy Tube Exchange Left M.D. 200 [place] [address] Referral ID Status Reason Start Date Expiration Date Visits Requ ested Visits Authorized [id number] Closed 02/22/2022 02/22/2023 1 1 Encounter Details Date Type Department Care Team Description 05/20/2022 Hospital Encounter Department of Fr diana David IV, M.D. 200 [place] [phone] Malignant Neoplasm Radiology in Bryon Wu M.D., Ph.D. [address] [place] [address] Of Bladder (HCC) [place], [place] [address] [place] [phone] Social History Tobacco Use Types Packs/Day Years [...] at Date Recorded Male 09/10/2018 8:41 AM EXTRUSION MACHINE OPERATOR documented as of this encounter [...] M.D. [address] [place] [phone] (Octavio christensen) 10/10/2022 Surgery Albert Waller Palliati ve RETROGRADE M.D. PYELOGRAM- possible [address] [place] antegrade ureteroscopy, [place] ureteral stent placement [id number] (Octavio christensen) Scheduled Procedures Name Priority Associated Diagnoses Date/Time RETROGRADE PYELOGRAM Malignant Neoplasm Of 10/10 10:25 AM EXTRUSION MACHINE OPERATOR Bladder (HCC) ENDOPYELOTOMY RETROGRADE Malignant Neoplasm Of 1 12/11/2021 10:25 AM EXTRUSION MACHINE OPERATOR Bladder (HCC) CYSTOSCOPY WITH Malignant Neoplasm Of 10/10/2022 10:25 AM EXTRUSION MACHINE OPERATOR TRANSURETHRAL RESECTION Bladder (HCC) LESION BLADDER [...] 05/20/2022 5:48 PM CDT Routine exchange 10 Guyanese left percutaneous nephrostomy tube. Drain to gravity [...] lidoca ine used for local anesthesia. Fluoroscopic judge image demonstrates unchanged position of the l eft 10 Guyanese percutaneous nephrostomy tube. Injection of contrast demonstrated a locking loop wit hin the markedly dilated left renal pelvis with high-grade narrowing at the left UPJ. Drain removed in its entirety over a guidewire and a new 10 Guyanese locking loop catheter advanced with lock ing [...] lidoca ine used for local anesthesia. Fluoroscopic judge image demonstrates unchanged position of the l eft 10 Guyanese percutaneous nephrostomy tube. Injection of contrast demonstrated a locking loop wit hin the markedly dilated left renal pelvis with high-grade narrowing at the left UPJ. Drain removed in its entirety over a guidewire and a new 10 Guyanese locking loop catheter advanced with lock ing [...] blood loss: minimal.. IMPRESSION: Routine exchange 10 Guyanese left percutan eous nephrostomy tube. Drain to gravity bag drainage. Routine exchange in 10-12 week s. NR Authorizing Provider Result Ashtyn Moreno IV IR PROCEDURES documented in this encounter [...] breaths/minute. documented in this encounter Care Teams Pilot Supervisor Relationship Specialty Start Date End Date Elsewhere, Pcp PCP - General Internal Medicine 01/14/22 documented as of this encounter
--- OUTSIDE RECORDS SUMMARY | 2022-09-20 14:15 | XMS_ITS | Encounter Summary ---
:1935 Author Organization [facility] Address [address] [place] [address] Care Team Providers Name Role Phone Elsewhere, Pcp Primary Care Provider Unavailable Reason for Referral Outpatient (Routine) - Closed Specialty Diagnoses / Procedures Referred By Contact Refer red To Contact Radiology Diagnoses Malignant Neoplasm Of Bladder (HCC) Hydronephrosis Gibran Ruvalcaba M.D. [facility] Procedures IR Nephrostomy Tube Exchange Left IR Nephrostomy Tube Check Left 200 [place] [address] Referral ID Status Reason Start Date Expiration Date Visits Requ ested Visits Authorized [id number] Closed 07/01/2022 07/01/2023 1 1 Encounter Details Date Type Department Care Team Description 07/01/2022 Clinical Communication Department of Urology Analisa Ruvalcaba in [facility] lonny Gardner M.D. 200 [facility] 200 [place] [phone] Social History Tobacco Use Types Packs/Day Years [...] you attend mu-ism or Patient refused 2021 islam services? Do you belong to any clubs or No 05/17/2022 organizations such as mu-ism groups, unions, frabubl or athletic groups, or school groups? How [...] at Date Recorded Male 09/10/2018 8:41 AM INTRAVENOUS THERAPY NURSE documented as of this encounter Miscellaneous [...] and is requesting a call back at [phone]. documented in this encounter Plan of Treatment Upcoming Encounters Date Type Specialty Care Team Description 10/10/2022 Hospital Encounter Albert Waller M.D. [address] [place] [phone] (Octavio christensen) 10/10/2022 Surgery Albert Waller Palliati ve RETROGRADE M.D. PYELOGRAM- possible [address] antegrade ureteroscopy, [place], [place] ureteral stent placement [id number] (Octavio christensen) Scheduled Procedures Name Priority Associated Diagnoses Date/Time RETROGRADE PYELOGRAM Malignant Neoplasm Of 10/10 10:25 AM INTRAVENOUS THERAPY NURSE Bladder (HCC) ENDOPYELOTOMY RETROGRADE Malignant Neoplasm Of 1 12/11/2021 10:25 AM INTRAVENOUS THERAPY NURSE Bladder (HCC) CYSTOSCOPY WITH Malignant Neoplasm Of 10/10/2022 10:25 AM INTRAVENOUS THERAPY NURSE TRANSURETHRAL RESECTION Bladder (HCC) LESION BLADDER documented [...] d raining. TECHNIQUE: Prone positioning. Fluoroscop ic ore puncher image demonstrates the likely malpositioning of the left nephrostomy tube. Contrast injectio n refluxes only to the skin. Nephrostomy tube was prepared and draped in sterile fashion. 1 percent lidocaine was used for local anesthesia. Nephrostomy tube was cut and removed over a Glidewire and a Xactly Corpenstein catheter was used to manipulate back into the kidney. Contrast injection filled a dila kathleen ureter. Over a torque wire, a new 12 [place]an by 25 cm pigtail catheter was advanced [...] d raining. TECHNIQUE: Prone positioning. Fluoroscop ic ore puncher image demonstrates the likely malpositioning of the [...] Over a torque wire, a new 12 [place] by 25 cm pigtail catheter was advanced [...] Hydronephrosis Malignant Neoplasm Of Bladder (HCC) Hydronephrosis Malignant Neoplasm Of Bladder (HCC) documented in this encounter Care Teams County Extension Agent Relationship Specialty Start Date End Date Elsewhere, Pcp PCP - General Internal Medicine 01/14/22 documented as of this encounter
--- OUTSIDE RECORDS SUMMARY | 2022-09-20 14:15 | XMS_ITS | Encounter Summary ---
:[address] [facility] Address [address] [place] [address] Care Team Providers Name Role Phone Elsewhere, Pcp Primary Care Provider Unavailable Reason for Visit Outpatient (Routine) - Closed Specialty Diagnoses / Procedures Referred By Contact Refer red To Contact Diagnoses Hydronephrosis Malignant Neoplasm Of Bladder (HCC) Armida Botello APRN, [facility] Procedures URO Cystoscopy (general) C.N.P., D.N.P. [address] [place] [phone] Referral ID Status Reason Start Date Expiration Date Visits Requ ested Visits Authorized [id number] Closed 05/17/2022 05/17/2023 1 1 Encounter Details Date Type Department Care Team Description 06/03/2022 Procedure visit Department of Armida Botello APRN, C.N.P., D.N.P. [address] [place] [phone] Stricture Urethral Postoperative Male (P rimary Dx); Urology in Lo Sewell APRN, C.N.P., D.N.P. [address] [place] [phone] Hydronephrosis; [place], [place] Malignant Neoplasm Of Bladde r (HCC) [address] [place] [phone] Social History Tobacco Use Types Packs/Day Years [...] you attend yazdanism or Patient refused 2021 scientology services? Do [...] at Date Recorded Male 09/10/2018 8:41 AM EXCHANGE ARCHITECT documented as of this encounter Progress Notes Aby Jackson, L.P.N. - 06/03/2022 8:00 AM CDT Patient was seen for a cystoscopy procedure. Cystoscope CYF-VH #[id number] was used during today's cystoscopy procedure. 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 Unable to transverse cystoscope related to notable discomfort. Given patient discomfort the procedure was evacuated. Cystoscope was removed. He is currently performing intermittent catheterization with 14 Singaporean catheter. IMPRESSION: #1 Distal penile urethral stricture [...] PYELOGRAM Malignant Neoplasm Of 10/10 10:25 AM EXCHANGE ARCHITECT Bladder (HCC) ENDOPYELOTOMY RETROGRADE Malignant Neoplasm Of 1 12/11/2021 10:25 AM EXCHANGE ARCHITECT Bladder (HCC) CYSTOSCOPY WITH Malignant Neoplasm Of 10/10/2022 10:25 AM EXCHANGE ARCHITECT TRANSURETHRAL RESECTION Bladder (HCC) LESION BLADDER documented [...] AM Performed by: Lo Sewell APRN, C .NRichelle, EdwigeNJluisP. Authorized by: Armida Botello D.N.P. , R.N. Care team members present 1. Lo Sewell APRN, C.N.P., Cass Dewey. 2. Aby Jackson, AlfredoN. Additional procedures performed: cystosc opy ?? PROCEDURE DETAILS The patient was brought to the cystoscop y suite and placed in the lithotomy position. The patient was prep ped and draped in the standard fashion. ??A FLEXIBLE CYSTOSCOPE was ins erted through the urethra. 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 Unable to transverse cystosco pe related to notable discomfort. Given patient discomfort the procedure w as evacuated. Cystoscope was removed. ??He is currently performing in termittent catheterization with 14 Singaporean catheter. 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
--- OUTSIDE RECORDS SUMMARY | 2022-09-20 14:15 | XMS_ITS | Encounter Summary ---
:1935 Author Organization [facility] Address [address] [place] [address] Care Team Providers Name Role Phone Elsewhere, Pcp Primary Care Provider Unavailable Reason for Visit Reason Comments Appointment Cancelled Encounter Details Date Type Department Care Team Description 05/21/2022 Clinical Communication Department of Adonay Klein Urology in Bassam Ayala M.D. Cancelled [place], [facility] [address] [place], [place] [address] [facility] [address] [place], [place] [phone] (Work) [phone] Social History Tobacco Use Types Packs/Day Years [...] you attend uatsdin or Patient refused 2021 roman catholic services? 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 [address] [place] [phone] (Octavio christensen) 10/10/2022 Surgery Albert Waller Palliati ve RETROGRADE M.D. PYELOGRAM- possible [address] antegrade ureteroscopy, [place] ureteral stent placement [id number] (Octavio christensen) Scheduled Procedures Name Priority Associated Diagnoses Date/Time RETROGRADE PYELOGRAM Malignant Neoplasm Of 10/10 10:25 AM TRANSFER CAR OPERATOR Bladder (HCC) ENDOPYELOTOMY RETROGRADE Malignant Neoplasm Of 1 12/11/2021 10:25 AM TRANSFER CAR OPERATOR Bladder (HCC) CYSTOSCOPY WITH Malignant Neoplasm Of 10/10/2022 10:25 AM TRANSFER CAR OPERATOR TRANSURETHRAL RESECTION Bladder (HCC) LESION BLADDER documented as of this encounter Visit Diagnoses Not on filedocumented in this encounter Care Teams Hydrometeorology Teacher Relationship Specialty Start Date End Date Elsewhere, Pcp PCP - General Internal Medicine 01/14/22 documented as of this encounter
--- OUTSIDE RECORDS SUMMARY | 2022-09-20 14:15 | XMS_ITS | Encounter Summary ---
:[address] [facility] Address 200 [place] [address] Care Team Providers Name Role Phone Elsewhere, Pcp Primary Care Provider Unavailable Reason for Visit Reason Comments Urinary Retention Outpatient (Routine) - Closed Specialty Diagnoses / Procedures Referred By Contact Refer red To Contact Diagnoses Hydronephrosis Malignant Neoplasm Of Bladder (HCC) Retention Urinary Armida Botello APRN, [facility] Procedures URO Urethral cath removal & voiding trial (UCO/VT) C.N.P., D.N.P. [address] [place] [phone] Referral ID Status Reason Start Date Expiration Date Visits Requ ested Visits Authorized [id number] Closed 05/17/2022 05/17/2023 1 1 Encounter Details Date Type Department Care Team Description 05/17/2022 Procedure visit Department of Urology Armida Botello APRN, C.N.P., D.N.P. [address] [place] [phone] Hydronephrosis; in [place], Lalita Dewitt R.N. 200 [place] [address] Malignant Neoplasm Of Bladder (HCC); [place] Retention Urinary [address] [place] [phone] Social History Tobacco Use Types Packs/Day Years [...] you attend holiness or Patient refused 2021 spiritism services? Do you belong to any clubs or No 05/17/2022 organizations such as holiness groups, unions, [employer] or athletic groups, or school groups? 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 [address] [place] [phone] (Wo rk) 10/10/2022 Surgery Albert Waller Palliati ve RETROGRADE M.D. PYELOGRAM- possible [address] antegrade ureteroscopy, [place] ureteral stent placement [id number] (Wo rk) Scheduled Procedures Name Priority Associated Diagnoses Date/Time RETROGRADE PYELOGRAM Malignant Neoplasm Of 10/10 10:25 AM PANEL MAKER Bladder (HCC) ENDOPYELOTOMY RETROGRADE Malignant Neoplasm Of 1 12/11/2021 10:25 AM PANEL MAKER Bladder (HCC) CYSTOSCOPY WITH Malignant Neoplasm Of 10/10/2022 10:25 AM PANEL MAKER TRANSURETHRAL RESECTION Bladder (HCC) LESION BLADDER documented as of this encounter Visit Diagnoses Diagnosis Hydronephrosis Malignant Neoplasm Of Bladder (HCC) Retention Urinary Malignant Neoplasm Of Bladder (HCC) documented in this encounter Care Teams Hospital Insurance Clerk Relationship Specialty Start Date End Date Elsewhere, Pcp PCP - General Internal Medicine 01/14/22 documented as of this encounter
--- OUTSIDE RECORDS SUMMARY | 2022-09-20 14:15 | XMS_ITS | Encounter Summary ---
:1935 Author Organization [facility] Address [address] [place] [address] Care Team Providers Name Role Phone Elsewhere, Pcp Primary Care Provider Unavailable Reason for Visit Outpatient (Routine) - Closed Specialty Diagnoses / Procedures Referred By Contact Refer red To Contact Diagnoses Malignant Neoplasm Of Bladder (HCC) Claude Loaiza, [facility], [facility] Procedures Cystoscopy (specific provider) P.A.-C. 200 [place] [phone] Referral ID Status Reason Start Date Expiration Date Visits Requ ested Visits Authorized [id number] Closed 06/14/2022 06/14/2023 1 1 Encounter Details Date Type Department Care Team Description 06/14/2022 Procedure visit Department of Urology Gibran Ruvalcabaant Neoplasm Of in Jj Batista M.D. Bladder (HCC) [place] 200 [facility] 200 [place] [phone] Social History Tobacco Use Types Packs/Day Years [...] you attend gnosticist or Patient refused 2021 anabaptism services? Do you belong to any clubs or No 05/17/2022 organizations such as gnosticist groups, unions, fraViClone or athletic groups, or school groups? How [...] Date Recorded Male 09/10/2018 8:41 AM CAN VACUUM TESTER documented as of this encounter Plan of Treatment Upcoming Encounters Date Type Specialty Care Team Description 10/10/2022 Hospital Encounter Albert Waller M.D. [address] [place] [phone] (Wo fermin) 10/10/2022 Surgery Albert Waller Palliati ve RETROGRADE M.D. PYELOGRAM- possible [address] [place] ureteral stent placement [id number] (Wo rk) Scheduled Procedures Name Priority Associated Diagnoses Date/Time RETROGRADE PYELOGRAM Malignant Neoplasm Of 10/10 10:25 AM CAN VACUUM TESTER Bladder (HCC) ENDOPYELOTOMY RETROGRADE Malignant Neoplasm Of 1 12/11/2021 10:25 AM CAN VACUUM TESTER Bladder (HCC) CYSTOSCOPY WITH Malignant Neoplasm Of 10/10/2022 10:25 AM CAN VACUUM TESTER TRANSURETHRAL RESECTION Bladder (HCC) LESION BLADDER documented as of this encounter Procedures Procedure Name Priority Date/Time Associated Comments Diagnosis OR INJ ANTEGRD Routine 06/14/2022 2:29 PM Malignant [...] MPAS, P.A.-C. Claude ZELAYA, P.A.-CJluis UROLOGY ORDERABLES Cystoscopy (specific provider) (06/14/2022 2:29 PM CDT) Specimen (Source) Anatomical Location Collection Method / Collectio n Time Received Time / Laterality Volume Narrative Gibran Ruvalcaba M.D. - 06/14/2022 2: 53 PM CDT Gibran Ruvalcaba M.D. ? 06/14/2022 ??2:55 PM Cystoscopy (specific provider) Date/Time: 06/14/2022 2:53 PM Performed by: Gibran Ruvalcaba M.D. Authorized by: Claude Loaiza MPAS, P.A.-CJluis Claude ZELAYA, P.A.-C. 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
--- OUTSIDE RECORDS SUMMARY | 2022-09-20 14:16 | XMS_ITS | Encounter Summary ---
:[address] [facility] Address [address] [place] [address] Care Team Providers Name Role Phone Elsewhere, Pcp Primary Care Provider Unavailable Encounter Details Date Type Department Care Team Description 03/27/2022 Clinical Communication Department of Urology Lisbeth Nguyen in [facility] [phone] [address] [facility] (Work) [place] [address] Social History Tobacco Use Types Packs/Day Years [...] attend latter day or Patient refused 2021 latter day services? 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
--- OUTSIDE RECORDS SUMMARY | 2022-09-20 14:16 | XMS_ITS | Encounter Summary ---
:1935 Author Organization [facility] Address [address] [place] [address] Care Team Providers Name Role Phone Elsewhere, Pcp Primary Care Provider Unavailable Reason for Visit Reason Comments Appointment Pre-visit Testing Orders Encounter Details Date Type Department Care Team Description 03/26/2022 Clinical Communication Department of Adonay Sethi; Urology in [place]htyn Harris, Pre-visit Test aidee Batista, Ph.D. Orders [place] [address] [place] [phone] Social History Tobacco Use Types Packs/Day Years [...] you attend religious or Patient refused 2021 religion services? 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 Lucille states they cannot do that all . Lucille would like a call to discuss what is happening @ [phone]. Thank you. documented in this encounter Plan of Treatment Upcoming Encounters Date Type Specialty Care Team Description 10/10/2022 Hospital Encounter Albert Waller M.D. [address] [place] [phone] (Octavio christensen) 10/10/2022 Surgery Albert Waller Palliati ve RETROGRADE M.DJluis PYELOGRAM- possible [address] antegrade ureteroscopy, [place] ureteral stent placement [id number] (Octavio christensen) Scheduled Procedures Name Priority Associated Diagnoses Date/Time RETROGRADE PYELOGRAM Malignant Neoplasm Of 10/10 10:25 AM FOOTWEAR SALES COORDINATOR Bladder (HCC) ENDOPYELOTOMY RETROGRADE Malignant Neoplasm Of 1 12/11/2021 10:25 AM FOOTWEAR SALES COORDINATOR Bladder (HCC) CYSTOSCOPY WITH Malignant Neoplasm Of 10/10/2022 10:25 AM FOOTWEAR SALES COORDINATOR TRANSURETHRAL RESECTION Bladder (HCC) LESION BLADDER documented as of this encounter Visit Diagnoses Not on filedocumented in this encounter Care Teams Adult Live In Caregiver Relationship Specialty Start Date End Date Elsewhere, Pcp PCP - General Internal Medicine 01/14/22 documented as of this encounter
--- OUTSIDE RECORDS SUMMARY | 2022-09-20 14:16 | XMS_ITS | Encounter Summary ---
:1935 Author Organization [facility] Address [address] [place] [address] Care Team Providers Name Role Phone Elsewhere, Pcp Primary Care Provider Unavailable Reason for Visit Outpatient (Routine) - Canceled Specialty Diagnoses / Procedures Referred By Contact Refer red To Contact Radiology Diagnoses Retention Urinary Chronic Kimberly Sethi M.D., [facility] Procedures IR Genitourinary Procedure Ph.D. 200 [place] [address] Referral ID Status Reason Start Date Expiration Date Visits V isits Requested Authorized [id number] Canceled 03/25/2022 03/25/2023 1 1 Encounter Details Date Type Department Care Team Description 04/02/2022 Hospital Encounter Department of Kimberly Sethi M.D., Ph.D. Canceled (Patient: Radiology in Shoaib Poe M.D. [address] [place] [phone] Request) [place], [place] [address] [place] [phone] Social History Tobacco Use Types Packs/Day Years [...] you attend mormon or Patient refused 2021 jainism services? Do [...] Date Recorded Male 09/10/2018 8:41 AM CLINICAL SUPPORT SPECIALIST documented as of this encounter Medications [...] PYELOGRAM Malignant Neoplasm Of 10/10 10:25 AM CLINICAL SUPPORT SPECIALIST Bladder (HCC) ENDOPYELOTOMY RETROGRADE Malignant Neoplasm Of 1 12/11/2021 10:25 AM CLINICAL SUPPORT SPECIALIST Bladder (HCC) CYSTOSCOPY WITH Malignant Neoplasm Of 10/10/2022 10:25 AM CLINICAL SUPPORT SPECIALIST TRANSURETHRAL RESECTION Bladder (HCC) LESION BLADDER documented as of this encounter Visit Diagnoses Not on filedocumented in this encounter Care Teams Otr Tanker Truck Driver Relationship Specialty Start Date End Date Elsewhere, Pcp PCP - General Internal Medicine 01/14/22 documented as of this encounter
--- OUTSIDE RECORDS SUMMARY | 2022-09-20 14:16 | XMS_ITS | Encounter Summary ---
:1935 Author Organization [facility] Address [address] [place] [address] Care Team Providers Name Role Phone Elsewhere, Pcp Primary Care Provider Unavailable Reason for Referral Radiation Therapy (Routine) - Authorized Specialty Diagnoses / Procedures Referred By Contact Refer red To Contact Diagnoses Malignant Neoplasm Of Bladder (HCC) Manny Anderson M.D. [facility] Procedures Management Visit [address] [place], [place] [phone] Referral ID Status Reason Start Date Expiration Date Visits V isits Requested Authorized [id number] Authorized 03/05/2022 03/05/2023 10 10 Reason for Visit Radiation Therapy (Routine) - Authorized Specialty Diagnoses / Procedures Referred By Contact Refer red To Contact Diagnoses Malignant Neoplasm Of Bladder (HCC) Manny Anderson M.D. [facility] Procedures Management Visit [address] [place] [address] Referral ID Status Reason Start Date Expiration Date Visits V isits Requested Authorized [id number] Authorized 03/05/2022 03/05/2023 10 10 Encounter Details Date Type Department Care Team Description 04/02/2022 Hospital Encounter Department of Manny Anderson Neoplasm Radiation Oncology Ashtyn Dubois Of Bladder (HCC) in [place], [address] [place], [place] [address] [facility] [address] [place], [place] [phone] (Work) [phone] Social History Tobacco Use Types Packs/Day Years [...] 05/17/2022 organizations such as latter-day groups, unions, fraXipLink or athletic groups, or school groups? How [...] Date Recorded Male 09/10/2018 8:41 AM MANUFACTURING LEAD documented as of this encounter Last Filed [...] Bladder (HCC) SUPERVISED BY: Manny Anderson M.D. ([id number]) HISTORY OF PRESENT ILLNESS Mr. Henok Chery is an 86 y.o. 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 He is now receiving twice weekly radiation therapy. Treatment Course: 1xBladder Plan ID Fractions Dose / Fraction (cGy) Dose Treated (cGy) Dose Planned (cGy) First Treatment Last Treatment Elapsed Days [id number] [phone] 04/02/2022 04/02/2022 0 Course Summary 04/02/2022 04/02/2022 [...] M.D. 04/02/2022 3:55 PM CDT [facility] [address] [place] [address] documented in this encounter Plan of Treatment Upcoming Encounters Date Type Specialty Care Team Description 10/10/2022 Hospital Encounter Albert Waller M.D. [address] [place] [phone] (Wo fermin) 10/10/2022 Surgery Albert Waller Palliati ve RETROGRADE M.D. PYELOGRAM- possible [address] antegrade ureteroscopy, [place] ureteral stent placement [id number] (Wo fermin) Scheduled Orders Name Type Priority Associated Diagnoses Order S chedule Management Visit Radiation Oncology Routine Malignant Neoplasm Once for 1 Of Bladder (HCC) Occurrences starting 04/02/2022 unti l 04/02/2022 Scheduled Procedures Name Priority Associated Diagnoses Date/Time RETROGRADE PYELOGRAM Malignant Neoplasm Of 10/10 10:25 AM MANUFACTURING LEAD Bladder (HCC) ENDOPYELOTOMY RETROGRADE Malignant Neoplasm Of 1 12/11/2021 10:25 AM MANUFACTURING LEAD Bladder (HCC) CYSTOSCOPY WITH Malignant Neoplasm Of 10/10/2022 10:25 AM MANUFACTURING LEAD TRANSURETHRAL RESECTION Bladder (HCC) LESION BLADDER documented as of this encounter Visit Diagnoses Diagnosis Malignant Neoplasm Of Bladder (HCC) Malignant Neoplasm Of Bladder (HCC) documented in this encounter Care Teams Net Developer With [employer] Relationship Specialty Start Date End Date Elsewhere, Pcp PCP - General Internal Medicine 01/14/22 documented as of this encounter
--- OUTSIDE RECORDS SUMMARY | 2022-09-20 14:16 | XMS_ITS | Encounter Summary ---
:1935 Author Organization [facility] Address [address] [place] [address] Care Team Providers Name Role Phone Elsewhere, Pcp Primary Care Provider Unavailable Reason for Visit Reason Comments Procedure Encounter Details Date Type Department Care Team Description 03/27/2022 Clinical Communication Department of Manny Anderson [facility] [address] [facility] [address] [place] [address] [phone] Social History Tobacco Use Types Packs/Day Years [...] you attend baptist or Patient refused 2021 tenriism services? Do [...] at Date Recorded Male 09/10/2018 8:41 AM LOGISTICIAN documented as of this encounter Miscellaneous Notes [...] Albert Waller M.D. [address] [place] [phone] (Wo rk) 10/10/2022 Surgery Albert Waller Palliati ve RETROGRADE [place] PYELOGRAM- possible [address] [place]ZO antegrade ureteroscopy, [place] ureteral stent placement [id number] (Wo rk) Scheduled Procedures Name Priority Associated Diagnoses Date/Time RETROGRADE PYELOGRAM Malignant Neoplasm Of 10/10 10:25 AM LOGISTICIAN Bladder (HCC) ENDOPYELOTOMY RETROGRADE Malignant Neoplasm Of 1 12/11/2021 10:25 AM LOGISTICIAN Bladder (HCC) CYSTOSCOPY WITH Malignant Neoplasm Of 10/10/2022 10:25 AM LOGISTICIAN TRANSURETHRAL RESECTION Bladder (HCC) LESION BLADDER documented as of this encounter Visit Diagnoses Diagnosis Malignant Neoplasm Of Bladder (HCC) - Pr imary Malignant Neoplasm Of Bladder (HCC) documented in this encounter Care Teams Consumer Insight Manager Relationship Specialty Start Date End Date Elsewhere, Pcp PCP - General Internal Medicine 01/14/22 documented as of this encounter
--- OUTSIDE RECORDS SUMMARY | 2022-09-20 14:16 | XMS_ITS | Encounter Summary ---
:1935 Author Organization [facility] Address [address] [place] [address] Care Team Providers Name Role Phone Elsewhere, Pcp Primary Care Provider Unavailable Encounter Details Date Type Department Care Team Description 04/19/2022 Documentation Department of Radiation Manny Anderson, Oncology in [place] [address] [facility] [address] [place] [address] [phone] (Wo rk) Social History Tobacco Use Types [...] you attend zoroastrian or Patient refused 2021 pentecostal services? 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 - 04/19/2022 11:59 PM CDT DIAGNOSIS: 1. Malignant Neoplasm Of Bladder (HCC) Attending Physician: Manny Anderson M.D. ([phone]) Treatment Intent: Curative Concomitant Therapy: None Single Plan Treatment Course: 1xBladder Plan ID Fractions Dose / Fraction (cGy) Dose Treated (cGy) Dose Planned (cGy) First Treatment Last Treatment Elapsed Days [id number] 600 3600 3600 04/02/2022 04/19/2022 17 Course [...] Renetta Koch R.N., 05/03/2022 2:46 PM CDT [facility] [address] [place] [address] documented in this encounter Plan of Treatment Upcoming Encounters Date Type Specialty Care Team Description 10/10/2022 Hospital Encounter Albert Waller M.D. [address] [place] [phone] (Wo rk) 10/10/2022 Surgery Albert Waller, Rivera kumar RETROGRADE M.D. PYELOGRAM- possible [address] [place]ZO antegrade ureteroscopy, [place], [place] ureteral stent placement [id number] (Wo rk) Scheduled Procedures Name Priority Associated Diagnoses Date/Time RETROGRADE PYELOGRAM Malignant Neoplasm Of 10/10 10:25 AM CHILDCARE TEACHER Bladder (HCC) ENDOPYELOTOMY RETROGRADE Malignant Neoplasm Of 1 12/11/2021 10:25 AM CHILDCARE TEACHER Bladder (HCC) CYSTOSCOPY WITH Malignant Neoplasm Of 10/10/2022 10:25 AM CHILDCARE TEACHER TRANSURETHRAL RESECTION Bladder (HCC) LESION BLADDER documented as of this encounter Visit Diagnoses Diagnosis Malignant Neoplasm Of Bladder (HCC) - Pr imary Malignant Neoplasm Of Bladder (HCC) documented in this encounter Care Teams Gi Technician Relationship Specialty Start Date End Date Elsewhere, Pcp PCP - General Internal Medicine 01/14/22 documented as of this encounter
--- OUTSIDE RECORDS SUMMARY | 2022-09-20 14:16 | XMS_ITS | Encounter Summary ---
:1935 Author Organization [facility] Address [address] [place] [address] Care Team Providers Name Role Phone Elsewhere, Pcp Primary Care Provider Unavailable Encounter Details Date Type Department Care Team Description 04/12/2022 Hospital Encounter Department of Radiation Calin Anderson, [facility] [place] [facility] [place] [address] [place] [address] [phone] Social History Tobacco Use Types Packs/Day Years [...] you attend samaritan or Patient refused 2021 church services? Do [...] Date Recorded Male 09/10/2018 8:41 AM MACHINE CLOTH EXAMINER documented as of this encounter Medications at [...] M.D. [address] [place], [place] [phone] (Wo rk) 10/10/2022 Surgery Albert Waller, Rivera kumar RETROGRADE M.D. PYELOGRAM- possible [address] [place]ZO antegrade ureteroscopy, [place], [place] ureteral stent placement [id number] (Wo rk) Scheduled Procedures Name Priority Associated Diagnoses Date/Time RETROGRADE PYELOGRAM Malignant Neoplasm Of 10/10 10:25 AM MACHINE CLOTH EXAMINER Bladder (HCC) ENDOPYELOTOMY RETROGRADE Malignant Neoplasm Of 1 12/11/2021 10:25 AM MACHINE CLOTH EXAMINER Bladder (HCC) CYSTOSCOPY WITH Malignant Neoplasm Of 10/10/2022 10:25 AM MACHINE CLOTH EXAMINER TRANSURETHRAL RESECTION Bladder (HCC) LESION BLADDER documented as of this encounter Visit Diagnoses Not on filedocumented in this encounter Care Teams Server Software Engineer Relationship Specialty Start Date End Date Elsewhere, Pcp PCP - General Internal Medicine 01/14/22 documented as of this encounter
--- OUTSIDE RECORDS SUMMARY | 2022-09-20 14:16 | XMS_ITS | Encounter Summary ---
:1935 Author Organization [facility] Address [address] [place] [address] Care Team Providers Name Role Phone Elsewhere, Pcp Primary Care Provider Unavailable Encounter Details Date Type Department Care Team Description 03/26/2022 Clinical Communication Department of Radiology Harmony Starks in [facility] lonny A, RJluisN. [address] [place] [address] [address] [place] [phone] Social History Tobacco Use Types Packs/Day Years [...] you attend quaker or Patient refused 2021 baptist services? Do [...] at Date Recorded Male 09/10/2018 8:41 AM CLEAN IN PLACES OPERATOR documented as of this encounter Miscellaneous Notes Telephone Encounter - Harmony Story Lara Pena - 03/26/2022 2:06 PM CDT I received a request from Dr. Sethi to schedule Mr. Chery for Suprapubic catheter placement. I have Mr. Chery scheduled to undergo Suprapubic catheter placement at [facility] with Dr. Poe on 04/02/2022. The patient is scheduled to report to [facility], [facility] Anthony Art MD the morning of the procedure. ??? Patient is not on blood thinners. ??? Patient is diabetic. ??? Villarreal catheter and left nephrostomy tube currently in place. ??? COVID 19 PCR testing to be completed on: 04/01/2022. ??? Urology nurse education scheduled on 04/01/2022. ??? SERGER needed for procedure. This procedure is scheduled [...] rescheduled to undergo Suprapubic catheter placement at [facility] with Dr. Wu on 05/07/2022. The patient is scheduled to report to [facility], [facility] Anthony Art MD at 9:00 a.m. the morning of the procedure. ??? COVID 19 PCR testing to be completed on: 05/03/2022. ??? SERGER needed for procedure. documented in this encounter Plan of Treatment Upcoming Encounters Date Type Specialty Care Team Description 10/10/2022 Hospital Encounter Albert Waller M.D. [address] [place] [phone] (Wo rk) 10/10/2022 Surgery Albert Waller Palliati ve RETROGRADE M.D. PYELOGRAM- possible [address] [place]ZO antegrade ureteroscopy, [place] ureteral stent placement [id number] (Wo rk) Scheduled Procedures Name Priority Associated Diagnoses Date/Time RETROGRADE PYELOGRAM Malignant Neoplasm Of 10/10 10:25 AM CLEAN IN PLACES OPERATOR Bladder (HCC) ENDOPYELOTOMY RETROGRADE Malignant Neoplasm Of 1 12/11/2021 10:25 AM CLEAN IN PLACES OPERATOR Bladder (HCC) CYSTOSCOPY WITH Malignant Neoplasm Of 10/10/2022 10:25 AM CLEAN IN PLACES OPERATOR TRANSURETHRAL RESECTION Bladder (HCC) LESION BLADDER documented as of this encounter Visit Diagnoses Not on filedocumented in this encounter Care Teams Boom Stick Worker Relationship Specialty Start Date End Date Elsewhere, Pcp PCP - General Internal Medicine 01/14/22 documented as of this encounter
--- OUTSIDE RECORDS SUMMARY | 2022-09-20 14:16 | XMS_ITS | Encounter Summary ---
:1935 Author Organization [facility] Address [address] [place] [address] Care Team Providers Name Role Phone Elsewhere, Pcp Primary Care Provider Unavailable Encounter Details Date Type Department Care Team Description 03/27/2022 Clinical Communication Department of Harrison Lennon, Radiation Oncology in [place], [facility] [address] [place] [address] [address] [place] [address] [phone] Social History Tobacco Use Types Packs/Day Years [...] you attend methodist or Patient refused 2021 yarsanism services? Do [...] at Date Recorded Male 09/10/2018 8:41 AM POWERHOUSE OPERATOR documented as of this encounter Miscellaneous [...] for a second opinion from outside of [facility]. I informed her that we will keep [...] PYELOGRAM Malignant Neoplasm Of 10/10 10:25 AM POWERHOUSE OPERATOR Bladder (HCC) ENDOPYELOTOMY RETROGRADE Malignant Neoplasm Of 1 12/11/2021 10:25 AM POWERHOUSE OPERATOR Bladder (HCC) CYSTOSCOPY WITH Malignant Neoplasm Of 10/10/2022 10:25 AM POWERHOUSE OPERATOR TRANSURETHRAL RESECTION Bladder (HCC) LESION BLADDER documented as of this encounter Visit Diagnoses Not on filedocumented in this encounter Care Teams Chain Pegger Relationship Specialty Start Date End Date Elsewhere, Pcp PCP - General Internal Medicine 01/14/22 documented as of this encounter
--- OUTSIDE RECORDS SUMMARY | 2022-09-20 14:16 | XMS_ITS | Encounter Summary ---
:1935 Author Organization [facility] Address [address] [place] [address] Care Team Providers Name Role Phone Elsewhere, Pcp Primary Care Provider Unavailable Encounter Details Date Type Department Care Team Description 03/26/2022 Orders Only Department of Harmony Story N eoplasm Of Bladder (HCC) (Primary Dx); Radiology in A, R.N. Negative COVID-19 Test (Contact With And (Suspected) Exposure To COVID-19); [place], [place] [address] [facility] Encounter For Preprocedural Laboratory E xamination (COVID-19) [address] [place] [phone] [phone] Social History Tobacco Use Types Packs/Day Years [...] you attend congregation or Patient refused 2021 oriental orthodox services? [...] at Date Recorded Male 09/10/2018 8:41 AM CLARIFYING PLANT OPERATOR documented as of this encounter Plan [...] PYELOGRAM Malignant Neoplasm Of 10/10 10:25 AM CLARIFYING PLANT OPERATOR Bladder (HCC) ENDOPYELOTOMY RETROGRADE Malignant Neoplasm Of 1 12/11/2021 10:25 AM CLARIFYING PLANT OPERATOR Bladder (HCC) CYSTOSCOPY WITH Malignant Neoplasm Of 10/10/2022 10:25 AM CLARIFYING PLANT OPERATOR TRANSURETHRAL RESECTION Bladder (HCC) LESION BLADDER documented as of this encounter Visit Diagnoses Diagnosis Malignant Neoplasm Of Bladder (HCC) - Pr imary Negative COVID-19 Test (Contact With And (Suspected) Exposure To COVID-19) Encounter For Preprocedural Laboratory E xamination (COVID-19) Malignant Neoplasm Of Bladder (HCC) documented in this encounter Care Teams Visitor Services Representative Relationship Specialty Start Date End Date Elsewhere, Pcp PCP - General Internal Medicine 01/14/22 documented as of this encounter
--- OUTSIDE RECORDS SUMMARY | 2022-09-20 14:16 | XMS_ITS | Encounter Summary ---
:1935 Author Organization [facility] Address [address] [place] [address] Care Team Providers Name Role Phone Elsewhere, Pcp Primary Care Provider Unavailable Reason for Referral Radiation Therapy (Routine) - Authorized Specialty Diagnoses / Procedures Referred By Contact Refer red To Contact Diagnoses Malignant Neoplasm Of Bladder (HCC) Manny Anderson M.D. [facility] Procedures Management Visit [address] [place], [place] [address] Referral ID Status Reason Start Date Expiration Date Visits V isits Requested Authorized [id number] Authorized 03/05/2022 03/05/2023 10 10 Reason for Visit Radiation Therapy (Routine) - Authorized Specialty Diagnoses / Procedures Referred By Contact Refer red To Contact Diagnoses Malignant Neoplasm Of Bladder (HCC) [facility]anny Anderson M.D. [facility] Procedures Management Visit [address] [place], [place] [address] Referral ID Status Reason Start Date Expiration Date Visits V isits Requested Authorized [id number] Authorized 03/05/2022 03/05/2023 10 10 Encounter Details Date Type Department Care Team Description 04/09/2022 Hospital Encounter Department of Isidro Anderson M.D. [address] [place] [phone] Malignant Neoplasm Radiation Oncology Heladio Del Real M.D. [address] [place] [address] Of Bladder (HCC) in [place], [place] [address] [place] [address] Social History Tobacco Use Types [...] you attend sabianist or Patient refused 2021 yazdanism services? Do [...] at Date Recorded Male 09/10/2018 8:41 AM GREASE MAKER HEAD documented as of this encounter Last Filed [...] (cGy) First Treatment Last Treatment Elapsed Days [id number] / 600 1800 3600 04/02/2022 04/09/2022 7 [...] the following COVID safety advice from the [facility]: Stay home if you can and [...] are not readily available, use a hand adult crossing guard with at least 60% alcohol. Avoid touching your eyes, nose and mouth. Clean and disinfect household surfaces daily and high- touch surfaces frequently throughout the day. documented in this encounter Plan of Treatment Upcoming Encounters Date Type Specialty Care Team Description 10/10/2022 Hospital Encounter Albert Waller M.D. [address] [place] [phone] (Octavio christensen) 10/10/2022 Surgery Albert Waller Palliati ve RETROGRADE M.D. PYELOGRAM- possible [address] antegrade ureteroscopy, [place], [place] ureteral stent placement [id number] (Octavio christensen) Scheduled Orders Name Type Priority Associated Diagnoses Order S chedule Management Visit Radiation Oncology Routine Malignant Neoplasm Once for 1 Of Bladder (HCC) Occurrences starting 04/09/2022 unti l 04/09/2022 Scheduled Procedures Name Priority Associated Diagnoses Date/Time RETROGRADE PYELOGRAM Malignant Neoplasm Of 10/10 10:25 AM GREASE MAKER HEAD Bladder (HCC) ENDOPYELOTOMY RETROGRADE Malignant Neoplasm Of 1 12/11/2021 10:25 AM GREASE MAKER HEAD Bladder (HCC) CYSTOSCOPY WITH Malignant Neoplasm Of 10/10/2022 10:25 AM GREASE MAKER HEAD TRANSURETHRAL RESECTION Bladder (HCC) LESION BLADDER documented as of this encounter Visit Diagnoses Diagnosis Malignant Neoplasm Of Bladder (HCC) Malignant Neoplasm Of Bladder (HCC) documented in this encounter Care Teams Geologist Relationship Specialty Start Date End Date Elsewhere, Pcp PCP - General Internal Medicine 01/14/22 documented as of this encounter
--- OUTSIDE RECORDS SUMMARY | 2022-09-20 14:16 | XMS_ITS | Encounter Summary ---
:1935 Author Organization [facility] Address [address] [place] [address] Care Team Providers Name Role Phone Elsewhere, Pcp Primary Care Provider Unavailable Encounter Details Date Type Department Care Team Description 05/02/2022 Clinical Communication Department of Heladio Meadows Radiology, Didier Layton R.N. [facility], in [address] [place] [address] [place] [address] [place], [place] [phone] (Work) [phone] Social History Tobacco Use Types Packs/Day Years [...] you attend adventism or Patient refused 2021 mormon services? Do [...] at Date Recorded Male 09/10/2018 8:41 AM FUEL VERIFICATION TECHNICIAN documented as of this encounter Miscellaneous Notes Telephone Encounter - Heladio Meadows R.N. - 05/02/2022 9:23 AM CDT We received a notification from [facility] appointment coordinators indicating that Mr. Chery has decided to cancel his scheduled suprapubic catheter placement. I called the [facility] appointment coordinators to verify this information. The procedure is canceled for now. documented in this encounter Plan of Treatment Upcoming Encounters Date Type Specialty Care Team Description 10/10/2022 Hospital Encounter Albert Waller M.D. [address] [place] [phone] (Wo rk) 10/10/2022 Surgery Albert Waller Palliati ve RETROGRADE M.D. PYELOGRAM- possible [address] [place] antegrade ureteroscopy, [place] ureteral stent placement [id number] (Wo rk) Scheduled Procedures Name Priority Associated Diagnoses Date/Time RETROGRADE PYELOGRAM Malignant Neoplasm Of 10/10 10:25 AM FUEL VERIFICATION TECHNICIAN Bladder (HCC) ENDOPYELOTOMY RETROGRADE Malignant Neoplasm Of 1 12/11/2021 10:25 AM FUEL VERIFICATION TECHNICIAN Bladder (HCC) CYSTOSCOPY WITH Malignant Neoplasm Of 10/10/2022 10:25 AM FUEL VERIFICATION TECHNICIAN TRANSURETHRAL RESECTION Bladder (HCC) LESION BLADDER documented as of this encounter Visit Diagnoses Not on filedocumented in this encounter Care Teams Top Case Assembler Relationship Specialty Start Date End Date Elsewhere, Pcp PCP - General Internal Medicine 01/14/22 documented as of this encounter
--- OUTSIDE RECORDS SUMMARY | 2022-09-20 14:16 | XMS_ITS | Encounter Summary ---
:1935 Author Organization [facility] Address [address] [place] [address] Care Team Providers Name Role Phone Elsewhere, Pcp Primary Care Provider Unavailable Encounter Details Date Type Department Care Team Description 04/02/2022 Hospital Encounter Department of Radiation Calin Anderson, [facility] [place] [facility] [place] [address] [place] [phone] [phone] Social History Tobacco Use Types Packs/Day Years [...] you attend mormon or Patient refused 2021 sabianism services? Do [...] at Date Recorded Male 09/10/2018 8:41 AM DRILLING FIELD SPECIALIST documented as of this encounter Medications [...] possible [address] antegrade ureteroscopy, [place], [place] ureteral stent placement [id number] (Wo rk) Scheduled Procedures Name Priority Associated Diagnoses Date/Time RETROGRADE PYELOGRAM Malignant Neoplasm Of 10/10 10:25 AM DRILLING FIELD SPECIALIST Bladder (HCC) ENDOPYELOTOMY RETROGRADE Malignant Neoplasm Of 1 12/11/2021 10:25 AM DRILLING FIELD SPECIALIST Bladder (HCC) CYSTOSCOPY WITH Malignant Neoplasm Of 10/10/2022 10:25 AM DRILLING FIELD SPECIALIST TRANSURETHRAL RESECTION Bladder (HCC) LESION BLADDER documented as of this encounter Visit Diagnoses Not on filedocumented in this encounter Care Teams Bag Presser Relationship Specialty Start Date End Date Elsewhere, Pcp PCP - General Internal Medicine 01/14/22 documented as of this encounter
--- OUTSIDE RECORDS SUMMARY | 2022-09-20 14:16 | XMS_ITS | Encounter Summary ---
:1935 Author Organization [facility] Address [address] [place] [address] Care Team Providers Name Role Phone Elsewhere, Pcp Primary Care Provider Unavailable Encounter Details Date Type Department Care Team Description 04/16/2022 Hospital Encounter Department of Radiation Calin Anderson, [facility] [place] [facility] [place] [address] [place] [phone] [phone] Social History Tobacco Use Types Packs/Day Years [...] you attend mosque or Patient refused 2021 pentecostal services? Do [...] at Date Recorded Male 09/10/2018 8:41 AM DRESS FINISHER documented as of this encounter Medications at [...] possible [address] antegrade ureteroscopy, [place], [place] ureteral stent placement [id number] (Wo rk) Scheduled Procedures Name Priority Associated Diagnoses Date/Time RETROGRADE PYELOGRAM Malignant Neoplasm Of 10/10 10:25 AM DRESS FINISHER Bladder (HCC) ENDOPYELOTOMY RETROGRADE Malignant Neoplasm Of 1 12/11/2021 10:25 AM DRESS FINISHER Bladder (HCC) CYSTOSCOPY WITH Malignant Neoplasm Of 10/10/2022 10:25 AM DRESS FINISHER TRANSURETHRAL RESECTION Bladder (HCC) LESION BLADDER documented as of this encounter Visit Diagnoses Not on filedocumented in this encounter Care Teams Surgical Scrub Tech Relationship Specialty Start Date End Date Elsewhere, Pcp PCP - General Internal Medicine 01/14/22 documented as of this encounter
--- OUTSIDE RECORDS SUMMARY | 2022-09-20 14:16 | XMS_ITS | Encounter Summary ---
:1935 [address] [facility] Address [address] [place] [address] Care Team Providers Name Role Phone Elsewhere, Pcp Primary Care Provider Unavailable Reason for Referral MRI/CAT/PET Scan (Routine) - Closed Specialty Diagnoses / Procedures Referred By Contact Refer red To Contact Radiology Diagnoses Hydronephrosis Armida Botello APRN, [facility] Procedures CT Urogram without and with IV Contrast C.N.P., D.N.P. [address] [place] [address] Referral ID Status Reason Start Date Expiration Date Visits Requ ested Visits Authorized [id number] Closed 05/17/2022 05/17/2023 1 1 utpatient (Routine) - Closed Specialty Diagnoses / Procedures Referred By Contact Refer red To Contact Diagnoses Hydronephrosis Malignant Neoplasm Of Bladder (HCC) Armida Botello APRN, [facility] Procedures URO Cystoscopy (general) C.N.P., D.N.P. 200 [place] [address] Referral ID Status Reason Start Date Expiration Date Visits Requ ested Visits Authorized [id number] Closed 05/17/2022 05/17/2023 1 1 utpatient (Routine) - Closed Specialty Diagnoses / Procedures Referred By Contact Refer red To Contact Urology Armida Botello APRN, C.N.PJluis, [facility] D.N.P. [address] [place] [phone] Referral ID Status Reason Start Date Expiration Date Visits Requ ested Visits Authorized [id number] Closed 05/17/2022 05/17/2023 1 1 utpatient (Routine) - Closed Specialty Diagnoses / Procedures Referred By Contact Refer red To Contact Diagnoses Hydronephrosis Malignant Neoplasm Of Bladder (HCC) Retention Urinary Armida Botello APRN, [facility] Procedures URO Urethral cath removal & voiding trial (UCO/VT) YolisNRichelle, D.N.P. [address] [place] [phone] Referral ID Status Reason Start Date Expiration Date Visits Requ ested Visits Authorized [id number] Closed 05/17/2022 05/17/2023 1 1 Reason for Visit Outpatient (Routine) - Closed Specialty Diagnoses / Procedures Referred By Contact Refer red To Contact Urology Manny Anderson M .D. Alamiri, Jamal M, M.B., [address] [place] [address] [place].., [place] [address] [address] [place] [address] [place] [address] Phone: Fax: Referral ID Status Reason Start Date Expiration Date Visits Requ ested Visits Authorized [id number] Closed 04/16/2022 04/16/2023 1 1 Encounter Details Date Type Department Care Team Description 05/17/2022 Office Visit Department of Urology Bassam Klein Neoplasm Of Bladder (HCC) (Primary Dx); in [place], [place] Hydronephrosis; [place] [address] [facility] Retention Urinary; [address] [place], [place] Diabetes Mellitus Type 2 Wit h Other Diabetic Kidney Complication Hyperglycemic (HCC) [place] [phone] Social History Tobacco Use Types Packs/Day Years [...] you attend hoahaoism or Patient refused 2021 mandaeism services? Do [...] Date Recorded Male 09/10/2018 8:41 AM HEAVY EQUIPMENT RENTAL ASSOCIATE documented as of this encounter Progress Notes Armida Botello D.N.P., R.N. - 05/17/2022 11:00 AM CDT SUBJECTIVE REQUESTING PROVIDER Manny Anderson M.D. CHIEF COMPLAINT / REASON FOR VISIT Follow-up Patient seen on Dr. Klein's calendar HISTORY OF PRESENT ILLNESS Mr. Chery is a 86 y.o. male who presents today in follow-up. He presents in a wheelchair today accompanied by his and [id number]. This is a patient of the chief [...] uncomfortable for the patient and both his qnrvkwma-[id number] and report he was able to urinate [...] (UCO/VT) Bladder (HCC) 08/17/2023 Retention Urinary Scheduled Procedures Name Priority Associated Diagnoses Date/Time RETROGRADE PYELOGRAM Malignant Neoplasm Of 10/10 10:25 AM HEAVY EQUIPMENT RENTAL ASSOCIATE Bladder (HCC) ENDOPYELOTOMY RETROGRADE Malignant Neoplasm Of 1 12/11/2021 10:25 AM HEAVY EQUIPMENT RENTAL ASSOCIATE Bladder (HCC) CYSTOSCOPY WITH Malignant Neoplasm Of 10/10/2022 10:25 AM HEAVY EQUIPMENT RENTAL ASSOCIATE TRANSURETHRAL RESECTION Bladder (HCC) LESION BLADDER Scheduled Referrals Name Type Priority Associated Diagnoses Order S [facility] Urology office Outpatient Referral Routine Expect ed: [...] 06/03/2022 8:51 AM Performed by: Lo Sewell APRN C .N.P., D.N.P. Authorized by: Armida Botello, Lanny.N.P. , R.N. Care team members present 1. Lo Sewell APRN, C.N.Zuleima., D.N. P. 2. Aby Jackson, L.P.N. Additional procedures performed: cystosc opy ?? PROCEDURE DETAILS The patient was brought to the cystoscop y suite and placed in the lithotomy position. The patient was prep ped and draped in the standard fashion. ??A FLEXIBLE CYSTOSCOPE was ins erted through the urethra. 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 Unable to transverse cystosco pe related to notable discomfort. Given patient discomfort the procedure w as evacuated. Cystoscope was removed. ??He is currently performing in termittent catheterization with 14 Greek catheter. 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
--- OUTSIDE RECORDS SUMMARY | 2022-09-20 14:16 | XMS_ITS | Encounter Summary ---
:1935 Author Organization [facility] Address [address] [place] [address] Care Team Providers Name Role Phone Elsewhere, Pcp Primary Care Provider Unavailable Encounter Details Date Type Department Care Team Description 04/19/2022 Hospital Encounter Department of Radiation Calin Anderson, [facility] [place] [id number] [place] [address] [phone] Social History Tobacco Use Types Packs/Day Years [...] you attend scientologist or Patient refused 2021 orthodox services? Do [...] at Date Recorded Male 09/10/2018 8:41 AM ACCOUNTANT SUPERVISOR documented as of this encounter Medications [...] possible [address] LAZO antegrade ureteroscopy, [place], [place] ureteral stent placement [id number] (Wo rk) Scheduled Procedures Name Priority Associated Diagnoses Date/Time RETROGRADE PYELOGRAM Malignant Neoplasm Of 10/10 10:25 AM ACCOUNTANT SUPERVISOR Bladder (HCC) ENDOPYELOTOMY RETROGRADE Malignant Neoplasm Of 1 12/11/2021 10:25 AM ACCOUNTANT SUPERVISOR Bladder (HCC) CYSTOSCOPY WITH Malignant Neoplasm Of 10/10/2022 10:25 AM ACCOUNTANT SUPERVISOR TRANSURETHRAL RESECTION Bladder (HCC) LESION BLADDER documented as of this encounter Visit Diagnoses Not on filedocumented in this encounter Care Teams Classer Relationship Specialty Start Date End Date Elsewhere, Pcp PCP - General Internal Medicine 01/14/22 documented as of this encounter
--- OUTSIDE RECORDS SUMMARY | 2022-09-20 14:16 | XMS_ITS | Encounter Summary ---
:1935 Author Organization [facility] Address [address] [place] [address] Care Team Providers Name Role Phone Elsewhere, Pcp Primary Care Provider Unavailable Reason for Referral Outpatient (Routine) - Closed Specialty Diagnoses / Procedures Referred By Contact Refer red To Contact Urology Manny Anderson M .D. Alamiri, Jamal M, M.B., [address] [facility] [place].., [place] [address] [address] [facility] [place] [address] Phone: Fax: Referral ID Status Reason Start Date Expiration Date Visits Requ ested Visits Authorized [id number] Closed 04/16/2022 04/16/2023 1 1 Radiation Therapy (Routine) - Authorized Specialty Diagnoses / Procedures Referred By Contact Refer red To Contact Diagnoses Malignant Neoplasm Of Bladder (HCC) Manny Anderson M.D. [facility] Procedures Management Visit [address] [place] [phone] Referral ID Status Reason Start Date Expiration Date Visits V isits Requested Authorized [id number] Authorized 03/05/2022 03/05/2023 10 10 Reason for Visit Radiation Therapy (Routine) - Authorized Specialty Diagnoses / Procedures Referred By Contact Refer red To Contact Diagnoses Malignant Neoplasm Of Bladder (HCC) Manny Anderson M.D. [facility] Procedures Management Visit [address] [place], [place] [phone] Referral ID Status Reason Start Date Expiration Date Visits V isits Requested Authorized [id number] Authorized 03/05/2022 03/05/2023 10 10 Encounter Details Date Type Department Care Team Description 04/16/2022 Hospital Encounter Department of Manny Anderson Neoplasm Radiation Oncology [place] Of Bladder (HCC) in [place], [address] [place], [place] [address] [facility] [address] [place], [place] [phone] (Work) [phone] Social History Tobacco Use Types Packs/Day Years [...] you attend sikhism or Patient refused 2021 alevism services? 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 Patient will need to see his it software developer for surgical clearance, he is a poor candidate for surgery. 02/08/2022 Other Urology consultation at [facility] with Dr. David Day who recommended proceeding [...] urethral catheter and nephrostomy tube. Referral to [facility] provider. 03/12/2022 - Radiation [...] order for Urology follow up on our [facility]. He will contact us with any [...] Anderson M.D. 04/16/2022 6:46 PM CDT [facility] [address] [place] [address] documented in this encounter Plan of Treatment Upcoming Encounters Date Type Specialty Care Team Description 10/10/2022 Hospital Encounter Albert Waller M.D. [address] [place] [phone] (Octavio christensen) 10/10/2022 Surgery Albert Waller Palliati ve RETROGRADE M.D. PYELOGRAM- possible [address] LAZO antegrade ureteroscopy, [place] ureteral stent placement [id number] (Octavio christensen) Scheduled Orders Name Type Priority Associated Diagnoses Order S chedule Management Visit Radiation Oncology Routine Malignant Neoplasm Once for 1 Of Bladder (HCC) Occurrences starting 04/16/2022 unti l 04/16/2022 Scheduled Procedures Name Priority Associated Diagnoses Date/Time RETROGRADE PYELOGRAM Malignant Neoplasm Of 10/10 10:25 AM CHIEF DESIGN DRAFTER Bladder (HCC) ENDOPYELOTOMY RETROGRADE Malignant Neoplasm Of 1 12/11/2021 10:25 AM CHIEF DESIGN DRAFTER Bladder (HCC) CYSTOSCOPY WITH Malignant Neoplasm Of 10/10/2022 10:25 AM CHIEF DESIGN DRAFTER TRANSURETHRAL RESECTION Bladder (HCC) LESION BLADDER Scheduled Referrals Name Type Priority Associated Diagnoses Order S chedule Return to provider Outpatient Referral Routine Ex pected: in another 04/16/2022 specialty (Approximate), Expires: 07/17/2023 documented as of this encounter Visit Diagnoses Diagnosis 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
--- OUTSIDE RECORDS SUMMARY | 2022-09-20 14:16 | XMS_ITS | Encounter Summary ---
:1935 Author Organization [facility] Address [address] [place] [address] Care Team Providers Name Role Phone Elsewhere, Pcp Primary Care Provider Unavailable Reason for Referral Outpatient (Routine) - Authorized Specialty Diagnoses / Procedures Referred By Contact Refer red To Contact Nura David IV, M.D. [facility] 200 [place], [place] [phone] Referral ID Status Reason Start Date Expiration Date Visits V isits Requested Authorized [id number] Authorized 04/29/2022 04/29/2023 [address] Bassam Klein calendar Encounter Details Date Type Department Care Team Description 04/29/2022 Orders Only Department of Urology in [place] is A [place], [place] COBI[place] 200 [facility] 200 [place] [address] [place], [place] [phone] (Wo rk) Social History Tobacco Use Types [...] you attend christian or Patient refused 2021 caodaism services? Do you belong to any clubs or No 05/17/2022 organizations such as christian groups, unions, fraFundbase or athletic groups, or school groups? 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 [address] [place] [phone] (Octavio christensen) 10/10/2022 Surgery Albert Waller Palliati ve RETROGRADE M.D. PYELOGRAM- possible [address] LAZO antegrade ureteroscopy, [place] ureteral stent placement [id number] (Octavio christensen) Scheduled Procedures Name Priority Associated Diagnoses Date/Time RETROGRADE PYELOGRAM Malignant Neoplasm Of 10/10 10:25 AM IRRIGATIONIST DESIGNER Bladder (HCC) ENDOPYELOTOMY RETROGRADE Malignant Neoplasm Of 1 12/11/2021 10:25 AM IRRIGATIONIST DESIGNER Bladder (HCC) CYSTOSCOPY WITH Malignant Neoplasm Of 10/10/2022 10:25 AM IRRIGATIONIST DESIGNER TRANSURETHRAL RESECTION Bladder (HCC) LESION BLADDER Scheduled Referrals Name Type Priority Associated Diagnoses Order S chedule NonF2F phone Outpatient Referral Routine Expected : visit 04/29/2022 (Approximate), Expires: 2022 documented as of this encounter Visit Diagnoses Not on filedocumented in this encounter Care Teams Grocery Clerk Marking Relationship Specialty Start Date End Date Elsewhere, Pcp PCP - General Internal Medicine 01/14/22 documented as of this encounter
--- OUTSIDE RECORDS SUMMARY | 2022-09-20 14:16 | XMS_ITS | Encounter Summary ---
:1935 Author Organization [facility] Address [address] [place] [address] Care Team Providers Name Role Phone Elsewhere, Pcp Primary Care Provider Unavailable Encounter Details Date Type Department Care Team Description 04/05/2022 Hospital Encounter Department of Radiation Calin Anderson, [facility] [place] [address] [place] [address] [phone] Social History Tobacco Use Types Packs/Day Years [...] you attend christianity or Patient refused 2021 hoahaoism services? 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 documented as of this encounter Medications at [...] possible [address] LAZO antegrade ureteroscopy, [place], [place] ureteral stent placement [id number] (Wo rk) Scheduled Procedures Name Priority Associated Diagnoses Date/Time RETROGRADE PYELOGRAM Malignant Neoplasm Of 10/10 10:25 AM VENDING MACHINE COIN COLLECTOR Bladder (HCC) ENDOPYELOTOMY RETROGRADE Malignant Neoplasm Of 1 12/11/2021 10:25 AM VENDING MACHINE COIN COLLECTOR Bladder (HCC) CYSTOSCOPY WITH Malignant Neoplasm Of 10/10/2022 10:25 AM VENDING MACHINE COIN COLLECTOR TRANSURETHRAL RESECTION Bladder (HCC) LESION BLADDER documented as of this encounter Visit Diagnoses Not on filedocumented in this encounter Care Teams Director Of Anesthesia Services Relationship Specialty Start Date End Date Elsewhere, Pcp PCP - General Internal Medicine 01/14/22 documented as of this encounter
--- OUTSIDE RECORDS SUMMARY | 2022-09-20 14:16 | XMS_ITS | Encounter Summary ---
:1935 Author Organization [facility] Address [address] [place] [address] Care Team Providers Name Role Phone Elsewhere, Pcp Primary Care Provider Unavailable Reason for Visit Reason Comments Neph Tube Question Encounter Details Date Type Department Care Team Description 05/09/2022 Clinical Communication Department of Bassam Knight ph Tube Question [facility] [address] [place], [place] [address] [place] [address] [place], [place] [phone] [phone] (Work) [phone] Social History Tobacco Use Types Packs/Day Years [...] you attend baptist or Patient refused 2021 sikh services? 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 Chery's neph tube bag. She says it's kind of white in color and stringy looking. She's not sure if that's normal or something to be concerned about. She says he doesn't have any signs of any infection. She can be reached at [phone]. Thanks! documented in this encounter Plan of Treatment Upcoming Encounters Date Type Specialty Care Team Description 10/10/2022 Hospital Encounter Albert Waller M.D. [address] [place] [phone] (Wo rk) 10/10/2022 Surgery Albert Waller, Rivera ve RETROGRADE M.DJluis PYELOGRAM- possible [address] LAZO antegrade ureteroscopy, [place] ureteral stent placement [id number] (Wo rk) Scheduled Procedures Name Priority Associated Diagnoses Date/Time RETROGRADE PYELOGRAM Malignant Neoplasm Of 10/10 10:25 AM MORTGAGE SALES MANAGER Bladder (HCC) ENDOPYELOTOMY RETROGRADE Malignant Neoplasm Of 1 12/11/2021 10:25 AM MORTGAGE SALES MANAGER Bladder (HCC) CYSTOSCOPY WITH Malignant Neoplasm Of 10/10/2022 10:25 AM MORTGAGE SALES MANAGER TRANSURETHRAL RESECTION Bladder (HCC) LESION BLADDER documented as of this encounter Visit Diagnoses Not on filedocumented in this encounter Care Teams Jig Builder Relationship Specialty Start Date End Date Elsewhere, Pcp PCP - General Internal Medicine 01/14/22 documented as of this encounter
--- OUTSIDE RECORDS SUMMARY | 2022-09-20 14:16 | XMS_ITS | Encounter Summary ---
:1935 Author Organization [facility] Address [address] [place] [address] Care Team Providers Name Role Phone Elsewhere, Pcp Primary Care Provider Unavailable Encounter Details Date Type Department Care Team Description 04/09/2022 Hospital Encounter Department of Radiation Calin Anderson, [facility] [place] [facility] [place] [address] [place] [address] [phone] Social History Tobacco Use Types Packs/Day Years [...] you attend yazidi or Patient refused 2021 jehovah's witness services? [...] at Date Recorded Male 09/10/2018 8:[address]STRUCTION INSPECTOR documented as of this encounter Medications [...] possible [address] LAZO antegrade ureteroscopy, [place], [place] ureteral stent placement [id number] (Wo rk) Scheduled Procedures Name Priority Associated Diagnoses Date/Time RETROGRADE PYELOGRAM Malignant Neoplasm Of 10/10 10:[address]STRUCTION INSPECTOR Bladder (HCC) ENDOPYELOTOMY RETROGRADE Malignant Neoplasm Of 1 12/11/2021 10:[address]STRUCTION INSPECTOR Bladder (HCC) CYSTOSCOPY WITH Malignant Neoplasm Of 10/10/2022 10:[address]STRUCTION INSPECTOR TRANSURETHRAL RESECTION Bladder (HCC) LESION BLADDER documented as of this encounter Visit Diagnoses Not on filedocumented in this encounter Care Teams Graphic Design Intern Relationship Specialty Start Date End Date Elsewhere, Pcp PCP - General Internal Medicine 01/14/22 documented as of this encounter
--- OUTSIDE RECORDS SUMMARY | 2022-09-20 14:17 | XMS_ITS | Encounter Summary ---
:1935 Author Organization [facility] Address [address] [place] [address] Care Team Providers Name Role Phone Elsewhere, Pcp Primary Care Provider Unavailable Encounter Details Date Type Department Care Team Description 02/26/2022 Clinical Communication Department of Urology Lisbeth Nguyen in [facility] [phone] [address] [facility] (Work) [place] [address] Social History Tobacco Use Types Packs/Day Years [...] you attend gnosticism or Patient refused 2021 gnosticism services? Do [...] at Date Recorded Male 09/10/2018 8:41 AM PSYCH NP documented as of this encounter Plan of [...] PYELOGRAM Malignant Neoplasm Of 10/10 10:25 AM PSYCH NP Bladder (HCC) ENDOPYELOTOMY RETROGRADE Malignant Neoplasm Of 1 12/11/2021 10:25 AM PSYCH NP Bladder (HCC) CYSTOSCOPY WITH Malignant Neoplasm Of 10/10/2022 10:25 AM PSYCH NP TRANSURETHRAL RESECTION Bladder (HCC) LESION BLADDER documented as of this encounter Visit Diagnoses Not on filedocumented in this encounter Care Teams Regulatory Affairs Portfolio Leader Relationship Specialty Start Date End Date Elsewhere, Pcp PCP - General Internal Medicine 01/14/22 documented as of this encounter
--- OUTSIDE RECORDS SUMMARY | 2022-09-20 14:17 | XMS_ITS | Encounter Summary ---
:1935 Author Organization [facility] Address [address] [place] [address] Care Team Providers Name Role Phone Elsewhere, Pcp Primary Care Provider Unavailable Reason for Visit Reason Comments Treatment Questions Encounter Details Date Type Department Care Team Description 03/12/2022 Clinical Communication Department of Kar Whipple Urology in , [place]dom[place], [place] [address] [place] [address] Social History Tobacco Use Types Packs/Day Years [...] Date Recorded Male 09/10/2018 8:41 AM CLIENT SUPPORT COORDINATOR documented as of this encounter Miscellaneous Notes Telephone Encounter - Ashley Duran M.D., M.B.A. - 03/12/2022 2:[address] Rosen is unfortunately completely booked as he is preparing for prison. Another OPC provider may be available sooner [...] procedure soon. Please contact them back at [phone] to discuss the plan with them. Thanks! documented in this encounter Plan of Treatment Upcoming Encounters Date Type Specialty Care Team Description 10/10/2022 Hospital Encounter Albert Waller M.D. [address] [place] [phone] (Wo rk) 10/10/2022 Surgery Albert Waller Palliati ve RETROGRADE M.D. PYELOGRAM- possible [address] LAZO [place] ureteral stent placement [id number] (Wo rk) Scheduled Procedures Name Priority Associated Diagnoses Date/Time RETROGRADE PYELOGRAM Malignant Neoplasm Of 10/10 10:25 AM CLIENT SUPPORT COORDINATOR Bladder (HCC) ENDOPYELOTOMY RETROGRADE Malignant Neoplasm Of 1 12/11/2021 10:25 AM CLIENT SUPPORT COORDINATOR Bladder (HCC) CYSTOSCOPY WITH Malignant Neoplasm Of 10/10/2022 10:25 AM CLIENT SUPPORT COORDINATOR TRANSURETHRAL RESECTION Bladder (HCC) LESION BLADDER documented as of this encounter Visit Diagnoses Not on filedocumented in this encounter Care Teams Cocoa Powder Mixer Operator Relationship Specialty Start Date End Date Elsewhere, Pcp PCP - General Internal Medicine 01/14/22 documented as of this encounter
--- OUTSIDE RECORDS SUMMARY | 2022-09-20 14:17 | XMS_ITS | Encounter Summary ---
:1935 Author Organization [facility] Address [address] [place] [address] Care Team Providers Name Role Phone Elsewhere, Pcp Primary Care Provider Unavailable Reason for Referral Radiation Therapy (Routine) - Closed Specialty Diagnoses / Procedures Referred By Contact Refer red To Contact Diagnoses Malignant Neoplasm Of Bladder (HCC) Manny Anderson M.D. [facility] Procedures Initial Rad Onc Treatment Planning CT Simulation Initial Rad Onc Treatment Planning CT Simulation [address] [place] [address] Referral ID Status Reason Start Date Expiration Date Visits Requ ested Visits Authorized [id number] Closed 03/05/2022 03/05/2023 1 1 Outpatient (Routine) - Authorized Specialty Diagnoses / Procedures Referred By Contact Refer red To Contact Social Work Manny Anderson M .D. [facility] [address] [place] [address] Referral ID Status Reason Start Date Expiration Date Visits V isits Requested Authorized [id number] Authorized 03/05/2022 03/05/2023 6 6 Outpatient (Routine) - Authorized Specialty Diagnoses / Procedures Referred By Contact Refer red To Contact Radiation Oncology Manny Anderson M .D. [facility] [address] [place] [address] Referral ID Status Reason Start Date Expiration Date Visits V isits Requested Authorized [id number] Authorized 03/05/2022 03/05/2023 10 10 Radiation Therapy (Routine) - Authorized Specialty Diagnoses / Procedures Referred By Contact Refer red To Contact Diagnoses Malignant Neoplasm Of Bladder (HCC) Manny Anderson M.D. [facility] Procedures Management Visit [address] [place], [place] [address] Referral ID Status Reason Start Date Expiration Date Visits V isits Requested Authorized [id number] Authorized 03/05/2022 03/05/2023 10 10 Radiation Therapy (Routine) - Authorized Specialty Diagnoses / Procedures Referred By Contact Refer red To Contact Diagnoses Malignant Neoplasm Of Bladder (HCC) Manny Anderson M.D. [facility] Procedures Prior Auth Rad Tx [address] [place], [place] [address] Referral ID Status Reason Start Date Expiration Date Visits V isits Requested Authorized [id number] Authorized 03/05/2022 03/05/2023 1 1 Encounter Details Date Type Department Care Team Description 03/05/2022 Orders Only Department of Manny Anderson N eoplasm Of Radiation Oncology in [place] Bladder (HCC) ([place] [address] [facility] Dx) [address] [place] [phone] Social History Tobacco Use Types Packs/Day Years [...] you attend orthodox or Patient refused 2021 rastafari services? Do you belong to any clubs or No 05/17/2022 organizations such as orthodox groups, unions, Acceptd or athletic groups, or school groups? 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 [address] [place] [id number] (Octavio christensen) 10/10/2022 Surgery Albert Waller, Palliati ve JERRY Chamorro PYELOGRAM- possible [address] antegrade ureteroscopy, [place] ureteral stent placement [id number] (Wo rk) Scheduled Orders Name Type Priority Associated Order Schedule Diagnoses Prior Auth Rad Tx Radiation Oncology Routine Malignant Neoplas m Ordered: 03/05/2022 Of Bladder (HCC) Management Visit Radiation Oncology Routine Malignant Neoplasm 10 Occurrences Of Bladder (HCC) starting until 3 Scheduled Procedures Name Priority Associated Diagnoses Date/Time RETROGRADE PYELOGRAM Malignant Neoplasm Of 10/10 10:25 AM SPORTS BETTING MANAGER Bladder (HCC) ENDOPYELOTOMY RETROGRADE Malignant Neoplasm Of 1 12/11/2021 10:25 AM SPORTS BETTING MANAGER Bladder (HCC) CYSTOSCOPY WITH Malignant Neoplasm Of 10/10/2022 10:25 AM SPORTS BETTING MANAGER TRANSURETHRAL RESECTION Bladder (HCC) LESION BLADDER [...] Code Phon e Number JUAN DIEGO LAZCANO na documented in this encounter Visit Diagnoses Diagnosis Malignant Neoplasm Of Bladder (HCC) - Pr imary 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
--- OUTSIDE RECORDS SUMMARY | 2022-09-20 14:17 | XMS_ITS | Encounter Summary ---
:1935 Author Organization [facility] Address [address] [place] [address] Care Team Providers Name Role Phone Elsewhere, Pcp Primary Care Provider Unavailable Encounter Details Date Type Department Care Team Description 03/21/2022 Hospital Encounter Department of Adrian David Urinary; Laboratory Medicine Mirlande Arias IV Neoplasm Of Bladder (HCC) and PathologyAshtyn [address] [place] [address], in [facility] [address] [place] [phone] [place] [address] (Work) [place], [place] [phone] [address] (Fax) [phone] Social History Tobacco Use Types Packs/Day Years [...] you attend baptism or Patient refused 2021 roman catholic services? [...] at Date Recorded Male 09/10/2018 8:41 AM FOUR SLIDE OPERATOR documented as of this encounter Medications [...] Albert Waller M.D. [address] [place] [id number] (Wo rk) 10/10/2022 Surgery Albert Waller Palliati ve RETROGRADE M.D. PYELOGRAM- possible [address] LAZO antegrade ureteroscopy, [place] ureteral stent placement [id number] (Octavio christensen) Scheduled Procedures Name Priority Associated Diagnoses Date/Time RETROGRADE PYELOGRAM Malignant Neoplasm Of 10/10 10:25 AM FOUR SLIDE OPERATOR Bladder (HCC) ENDOPYELOTOMY RETROGRADE Malignant Neoplasm Of 1 12/11/2021 10:25 AM FOUR SLIDE OPERATOR Bladder (HCC) CYSTOSCOPY WITH Malignant Neoplasm Of 10/10/2022 10:25 AM FOUR SLIDE OPERATOR TRANSURETHRAL RESECTION Bladder (HCC) LESION BLADDER documented as of this encounter Procedures Procedure Name Priority Date/Time Associated Comments Diagnosis CA OSMOLALITY ASSAY Routine 03/21/2022 12:08 Resu lts [...] (ABNORMAL) Dipstick, Urine (03/21/2022 12:08 PM CDT) [facility] Method Time Signature Hemoglobin, Large (A) [...] M.D. LAB URINE ORDERABLES Performing Organization Address City/[facility]/ZIP Code Phon e Number [facility] - [address] [place], [place] [address] [facility] [address] [facility] Osmolality, Urine (03/21/2022 12:08 PM CDT) P athologist Signature Osmolality, U 429 150 - 1150 03/21/2022 DTL mOsm/kg 12:38 PM CDT Specimen Anatomical Collection Method Collection Time Receive d Time (Source) Location / / Volume Laterality Urine 03/21/2022 12:08 03/21/2022 PM CDT 12:08 PM CDT Nura David IV, M.D. LAB URINE ORDERABLES Performing Organization Address City/[facility]/ZIP Code Phon e Number [facility] - [address] [place], [place] [address] [facility] [place] [address] [place] [address] [facility] pH, Random, Urine (03/21/2022 12:08 PM CDT) P athologist Signature pH, Random, U 6.7 4.5 - 8.0 03/21/2022 DTL 12:38 PM CDT Specimen Anatomical Collection Method Collection Time Receive d Time (Source) Location / / Volume Laterality Urine 03/21/2022 12:08 03/21/2022 PM CDT 12:08 PM CDT Nura David IV, M.D. LAB URINE ORDERABLES Performing Organization Address City/State/ZIP Code Phon e Number [facility] - [address] [place], [place] [address] [facility] [place] [address] [facility] [address] [facility] (ABNORMAL) Microscopic Manual (03/21/2022 12:08 PM CDT) Analysis Performed At [facility] Time Signature Microscopy Abnormal 03/21/2022 DTL 1:24 [...] 12:08 03/21/2022 PM CDT 12:08 PM CDT uNra David IV, M.D. LAB URINE ORDERABLES Performing Organization Address City/State/ZIP Code Phon e Number [facility] - [address] [place] [address] [facility] [place] [address] [facility] 200 [facility] (ABNORMAL) Urinalysis with Microscopic: Urine, Midstream (03/21/2022 12:08 PM CDT) Patholo gist Method Time Signature Source Urine, Urine, 03/21/2022 DTL Midstream 12:08 PM CDT Color, U Yellow 03/21/2022 DTL 12:08 PM CDT Clarity, U Clear 03/21/2022 DTL 12:08 PM CDT Protein, U 433 (H) <26 mg/dL 03/21/2022 DTL 2:20 PM CDT Protein/Osmol 10.09 (H) <0.42 03/21/2022 DTL ality ratio 2:20 PM CDT Predicted 24 8526 mg/24 h 03/21/2022 DTL Hr Protein 2:20 PM CDT Predicted 2706-23493 mg/24 h 03/21/2022 DTL Range 2:20 PM CDT Specimen Anatomical Collection Method Collection Time Receive d Time (Source) Location / / Volume Laterality Urine (Urine, 03/21/2022 12:08 03/21/2022 Midstream) PM CDT 12:08 PM CDT Nura David IV, M.D. 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
--- OUTSIDE RECORDS SUMMARY | 2022-09-20 14:17 | XMS_ITS | Encounter Summary ---
:1935 Author Organization [facility] Address [address] [place] [address] Care Team Providers Name Role Phone Elsewhere, Pcp Primary Care Provider Unavailable Reason for Referral Radiation Therapy (Routine) - Closed Specialty Diagnoses / Procedures Referred By Contact Refer red To Contact Diagnoses Malignant Neoplasm Of Bladder (HCC) Manny Anderson M.D. [facility] Procedures Initial Rad Onc Treatment Planning CT Simulation Initial Rad Onc Treatment Planning CT Simulation [address] [place], [place] [address] Referral ID Status Reason Start Date Expiration Date Visits Requ ested Visits Authorized [id number] Closed 03/05/2022 03/05/2023 1 1 Reason for Visit Radiation Therapy (Routine) - Closed Specialty Diagnoses / Procedures Referred By Contact Refer red To Contact Diagnoses Malignant Neoplasm Of Bladder (HCC) Manny Anderson M.D. [facility] Procedures Initial Rad Onc Treatment Planning CT Simulation Initial Rad Onc Treatment Planning CT Simulation [address] [place] [address] Referral ID Status Reason Start Date Expiration Date Visits Requ ested Visits Authorized [id number] Closed 03/05/2022 03/05/2023 1 1 Encounter Details Date Type Department Care Team Description 03/26/2022 Hospital Encounter Department of Manny Anderson Neoplasm Radiation Oncology L, M.D. Of Bladder (HCC) in [place], [facility] [address] [place], [place] [address] [facility] [address] [place], [place] [phone] [address] (Work) [phone] Social History Tobacco Use Types Packs/Day Years [...] Date Recorded Male 09/10/2018 8:41 AM FRONT END DEVELOPER documented as of this encounter Medications [...] planning. CT images were transferred to the [employer] treatment planning system, after a reference isocenter was determined and marked. Segmentation and treatment planning will take place priorto treatment delivery. Patient set up and imaging was appropriate and completed without incident. Code Enforcement Inspector use:No documented in this encounter Plan of [...] PYELOGRAM Malignant Neoplasm Of 10/10 10:25 AM FRONT END DEVELOPER Bladder (HCC) ENDOPYELOTOMY RETROGRADE Malignant Neoplasm Of 1 12/11/2021 10:25 AM FRONT END DEVELOPER Bladder (HCC) CYSTOSCOPY WITH Malignant Neoplasm Of 10/10/2022 10:25 AM FRONT END DEVELOPER TRANSURETHRAL RESECTION Bladder (HCC) LESION BLADDER documented [...] Time Received Time / Laterality Volume [facility]ative [facility] 03/26/2022 3:27 PM CDT Manasa Willett, RTT ? 03/26/2022 ??3:29 PM Initial Rad Onc Treatment Planning CT Si mulation Date/Time: 03/26/2022 3:27 PM Performed by: Manny Anderson M.D. Authorized by: Manny Anderson M.D. Manny Anderson M.D. 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
--- OUTSIDE RECORDS SUMMARY | 2022-09-20 14:17 | XMS_ITS | Encounter Summary ---
:1935 Author Organization [facility] Address [address] [place] [address] Care Team Providers Name Role Phone Elsewhere, Pcp Primary Care Provider Unavailable Encounter Details Date Type Department Care Team Description 03/25/2022 Orders Only Department of Urology Kimberly Sethi Rete ntion Urinary in [facility] lonny Chamorro, Ph.D. Chronic (Primary Dx) [address] [place] [phone] Social History Tobacco Use Types Packs/Day Years [...] you attend nondenominational or Patient refused 2021 scientology services? Do [...] at Date Recorded Male 09/10/2018 8:41 AM SAP DEVELOPER documented as of this encounter Plan [...] PYELOGRAM Malignant Neoplasm Of 10/10 10:25 AM SAP DEVELOPER Bladder (HCC) ENDOPYELOTOMY RETROGRADE Malignant Neoplasm Of 1 12/11/2021 10:25 AM SAP DEVELOPER Bladder (HCC) CYSTOSCOPY WITH Malignant Neoplasm Of 10/10/2022 10:25 AM SAP DEVELOPER TRANSURETHRAL RESECTION Bladder (HCC) LESION BLADDER documented as of this encounter Visit Diagnoses Diagnosis Retention Urinary Chronic - Primary Malignant Neoplasm Of Bladder (HCC) documented in this encounter Care Teams Entry Level Machine Operator Relationship Specialty Start Date End Date Elsewhere, Pcp PCP - General Internal Medicine 01/14/22 documented as of this encounter
--- OUTSIDE RECORDS SUMMARY | 2022-09-20 14:17 | XMS_ITS | Encounter Summary ---
:1935 Author Organization [facility] Address [address] [place] [address] Care Team Providers Name Role Phone Elsewhere, Pcp Primary Care Provider Unavailable Reason for Referral Outpatient (Routine) - Closed Specialty Diagnoses / Procedures Referred By Contact Refer red To Contact Urology Diagnoses Retention Urinary Nura David IV [place] Trupti Chamorro [address] [place] [address] Referral ID Status Reason Start Date Expiration Date Visits Requ ested Visits Authorized [id number] Closed 02/27/2022 02/27/2023 1 1 Scheduling Instructions PLEASE SCHEDULE WITH JACQUELINE OR PROVIDER WHO CAN DO REZUM CONSULTATION Reason for Visit Reason Comments Post-op Outpatient (Routine) - Closed Specialty Diagnoses / Procedures Referred By Contact Refer red To Contact Urology Cori Reece M.D . [address] [address] Referral ID Status Reason Start Date Expiration Date Visits Requ ested Visits Authorized [id number] Closed 02/22/2022 02/22/2023 1 1 Encounter Details Date Type Department Care Team Description 02/27/2022 Office Visit Department of Urology Lamont Lakhani Urinary in [place] M.D. (Primary Dx) [address] [phone] Social History Tobacco Use Types Packs/Day Years [...] you attend pentecostalism or Patient refused 2021 judaism services? Do [...] Date Recorded Male 09/10/2018 8:41 AM DAY CARE CENTER DIRECTOR documented as of this encounter Progress Notes Nura David IV, M.D. - 02/27/2022 3:00 PM CDT Urology [facility] clinic note Subjective Mr. Chery is [...] patient, he is accompanied by his and [id number]. He reports overall doing fine. The primary [...] Albert Waller M.D. [address] [place] [id number] (Wo rk) 10/10/2022 Surgery Albert Waller Palliati ve RETROGRADE M.D. PYELOGRAM- possible [address]ZO antegrade ureteroscopy, [place] ureteral stent placement [id number] (Wo rk) Scheduled Procedures Name Priority Associated Diagnoses Date/Time RETROGRADE PYELOGRAM Malignant Neoplasm Of 10/10 10:25 AM DAY CARE CENTER DIRECTOR Bladder (HCC) ENDOPYELOTOMY RETROGRADE Malignant Neoplasm Of 1 12/11/2021 10:25 AM DAY CARE CENTER DIRECTOR Bladder (HCC) CYSTOSCOPY WITH Malignant Neoplasm Of 10/10/2022 10:25 AM DAY CARE CENTER DIRECTOR TRANSURETHRAL RESECTION Bladder (HCC) LESION BLADDER Scheduled Referrals Name Type Priority Associated Diagnoses Order S [facility] Urology - General - Outpatient Referral Routine Retention Urin anita Expected: urinary retention 02/27/2022 consult (clinic) (Approximat e), Expires: 05/30/2023 documented as of this encounter Visit Diagnoses Diagnosis Retention Urinary - Primary Malignant Neoplasm Of Bladder (HCC) documented in this encounter Care Teams Health Care Attorney Relationship Specialty Start Date End Date Elsewhere, Pcp PCP - General Internal Medicine 01/14/22 documented as of this encounter
--- OUTSIDE RECORDS SUMMARY | 2022-09-20 14:17 | XMS_ITS | Encounter Summary ---
:1935 Author Organization [facility] Address [address] [place] [address] Care Team Providers Name Role Phone Elsewhere, Pcp Primary Care Provider Unavailable Encounter Details Date Type Department Care Team Description 03/22/2022 Clinical Communication Department of Urology Flakita Bradshaw in Sherly Batista M.D. [address] [place] [address] [phone] Social History Tobacco Use Types Packs/Day Years [...] you attend jewish or Patient refused 2021 orthodox services? Do [...] at Date Recorded Male 09/10/2018 8:41 AM GRADER OPERATOR documented as of this encounter Plan [...] PYELOGRAM Malignant Neoplasm Of 10/10 10:25 AM GRADER OPERATOR Bladder (HCC) ENDOPYELOTOMY RETROGRADE Malignant Neoplasm Of 1 12/11/2021 10:25 AM GRADER OPERATOR Bladder (HCC) CYSTOSCOPY WITH Malignant Neoplasm Of 10/10/2022 10:25 AM GRADER OPERATOR TRANSURETHRAL RESECTION Bladder (HCC) LESION BLADDER documented as of this encounter Visit Diagnoses Not on filedocumented in this encounter Care Teams Regional Marketing Director Relationship Specialty Start Date End Date Elsewhere, Pcp PCP - General Internal Medicine 01/14/22 documented as of this encounter
--- OUTSIDE RECORDS SUMMARY | 2022-09-20 14:17 | XMS_ITS | Encounter Summary ---
:1935 Author Organization [facility] Address [address] [place] [address] Care Team Providers Name Role Phone Elsewhere, Pcp Primary Care Provider Unavailable Encounter Details Date Type Department Care Team Description 03/08/2022 Clinical Communication Department of Harrison Lennon, Radiation Oncology in [place], M.S[facility] [address] [place] [address] [place] [address] [phone] Social History Tobacco Use Types Packs/Day Years [...] you attend jainism or Patient refused 2021 methodist services? Do [...] Date Recorded Male 09/10/2018 8:41 AM ASSISTANT CENTER DIRECTOR documented as of this encounter Miscellaneous [...] Albert Waller M.D. [address] [place] [id number] (Octavio christensen) 10/10/2022 Surgery Albert Waller Palliati ve RETROGRADE M.D. PYELOGRAM- possible [address] LAZO antegrade ureteroscopy, [place] ureteral stent placement [id number] (Octavio christensen) Scheduled Procedures Name Priority Associated Diagnoses Date/Time RETROGRADE PYELOGRAM Malignant Neoplasm Of 10/10 10:25 AM ASSISTANT CENTER DIRECTOR Bladder (HCC) ENDOPYELOTOMY RETROGRADE Malignant Neoplasm Of 1 12/11/2021 10:25 AM ASSISTANT CENTER DIRECTOR Bladder (HCC) CYSTOSCOPY WITH Malignant Neoplasm Of 10/10/2022 10:25 AM ASSISTANT CENTER DIRECTOR TRANSURETHRAL RESECTION Bladder (HCC) LESION BLADDER documented as of this encounter Visit Diagnoses Not on filedocumented in this encounter Care Teams Butter Production Supervisor Relationship Specialty Start Date End Date Elsewhere, Pcp PCP - General Internal Medicine 01/14/22 documented as of this encounter
--- OUTSIDE RECORDS SUMMARY | 2022-09-20 14:17 | XMS_ITS | Encounter Summary ---
:1935 Author Organization [facility] Address [address] [place] [address] Care Team Providers Name Role Phone Elsewhere, Pcp Primary Care Provider Unavailable Reason for Referral Outpatient (Routine) - Closed Specialty Diagnoses / Procedures Referred By Contact Refer red To Contact Radiation Oncology Iris Mishra P.A.-C., [facility] [address] [place] [phone] Referral ID Status Reason Start Date Expiration Date Visits Requ ested Visits Authorized [id number] Closed 03/25/2022 03/25/2023 1 1 Encounter Details Date Type Department Care Team Description 03/25/2022 Orders Only Department of Radiation Iris Mishra [facility] Neoplasm Of Oncology in [place], Eduardo, M.S. Bladder (HCC) (Primary [place] [address] [facility] Dx) [address] [place] [phone] Social History Tobacco Use Types Packs/Day Years [...] you attend presybeterian or Patient refused 2021 adventism services? Do you belong to any clubs or No 05/17/2022 organizations such as presybeterian groups, unions, fraAplicor or athletic groups, or school groups? How [...] at Date Recorded Male 09/10/2018 8:41 AM CANDY ROLLING MACHINE OPERATOR documented as of this encounter [...] PYELOGRAM Malignant Neoplasm Of 10/10 10:25 AM CANDY ROLLING MACHINE OPERATOR Bladder (HCC) ENDOPYELOTOMY RETROGRADE Malignant Neoplasm Of 1 12/11/2021 10:25 AM CANDY ROLLING MACHINE OPERATOR Bladder (HCC) CYSTOSCOPY WITH Malignant Neoplasm Of 10/10/2022 10:25 AM CANDY ROLLING MACHINE OPERATOR TRANSURETHRAL RESECTION Bladder (HCC) LESION BLADDER Scheduled Referrals Name Type Priority [facility] Diagnoses [facility] Outpatient Referral Routine Ex pected: office visit 03/26/2022 (clinic) (Approximate), Expires: 03/25/2023 documented as of this encounter Visit Diagnoses Diagnosis Malignant Neoplasm Of Bladder (HCC) - Pr imary Malignant Neoplasm Of Bladder (HCC) documented in this encounter Care Teams Produce Sorter Relationship Specialty Start Date End Date Elsewhere, Pcp PCP - General Internal Medicine 01/14/22 documented as of this encounter
--- OUTSIDE RECORDS SUMMARY | 2022-09-20 14:17 | XMS_ITS | Encounter Summary ---
:1935 Author Organization [facility] Address [address] [place] [address] Care Team Providers Name Role Phone Elsewhere, Pcp Primary Care Provider Unavailable Encounter Details Date Type Department Care Team Description 03/21/2022 Hospital Encounter Department of Adrian David Urinary; Laboratory Medicine Mirlande Arias IV Neoplasm Of Bladder (HCC) and Pathology, [facility], in [address] [place] [phone] 200 [facility] [phone] [place], [place] (Work) [phone] Social History Tobacco Use [...] you attend episcopalian or Patient refused 2021 sabianism services? Do [...] at Date Recorded Male 09/10/2018 8:41 AM CAMP COOK documented as of this encounter Medications at [...] ureteral stent placement [id number] (Wo fermin) Scheduled Procedures Name Priority Associated Diagnoses Date/Time RETROGRADE PYELOGRAM Malignant Neoplasm Of 10/10 10:25 AM CAMP COOK Bladder (HCC) ENDOPYELOTOMY RETROGRADE Malignant Neoplasm Of 1 12/11/2021 10:25 AM CAMP COOK Bladder (HCC) CYSTOSCOPY WITH Malignant Neoplasm Of 10/10/2022 10:25 AM CAMP COOK TRANSURETHRAL RESECTION Bladder (HCC) LESION BLADDER documented as of this encounter Visit Diagnoses Diagnosis Retention Urinary 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
--- OUTSIDE RECORDS SUMMARY | 2022-09-20 14:17 | XMS_ITS | Encounter Summary ---
:1935 Author Organization [facility] Address [address] [place] [address] Care Team Providers Name Role Phone Elsewhere, Pcp Primary Care Provider Unavailable Reason for Referral Outpatient (Routine) - Closed Specialty Diagnoses / Procedures Referred By Contact Refer red To Contact Diagnoses Benign Prostatic Hyperplasia Hypertrophy With Obstruction Flakita Bradshaw M.D. Procedures URO Urodynamic study (with flow) [address] [place] [phone] Referral ID Status Reason Start Date Expiration Date Visits Requ ested Visits Authorized [id number] Closed 03/21/2022 03/21/2023 1 1 Reason for Visit Outpatient (Routine) - Closed Specialty Diagnoses / Procedures Referred By Contact Refer red To Contact Urology Diagnoses Retention Urinary Nura David IV [facility] Ashtyn 200 [place] [address] Referral ID Status Reason Start Date Expiration Date Visits Requ ested Visits Authorized [id number] Closed 02/27/2022 02/27/2023 1 1 Encounter Details Date Type Department Care Team Description 03/21/2022 Comprehensive Visit Department of Bassam Klein gn Prostatic Hyperplasia Hypertrophy With Obstruction (Primary Dx); Urology in S, M.D. Retention Urinary [place], 200 [place], [place] 200 [facility] [address] [place], [place] [phone] (Work) [phone] Social History Tobacco Use Types Packs/Day Years [...] attend roman catholic or Patient refused 2021 nondenominational services? Do [...] Date Recorded Male 09/10/2018 8:41 AM FOOD SERVICE SALES REPRESENTATIVES documented as of this encounter Consult Notes [...] of Nura David IV, M.D. [address] [place] [address] CHIEF COMPLAINT Urinary retention Supervised by Dr. Klein HISTORY OF PRESENT ILLNESS Mr. Chery is a pleasant 86 y.o. male who presents today for evaluation of urinary retention. He is accompanied today by his and uxivwawc-dm-zdg. For further details regarding his bladder cancer [...] urinary incontinence. He currently has a [address] place. He denied any significant [...] Date/Time Bacterial Culture, Aerobic + Susc, Urine [[id number]] Collected: 02/27/22 1120 Lab Status: Final result Specimen: Urine, Indwelling Catheter Updated: 02/28/22 08 Urine Culture No growth after 1 day of incubation. SARS Coronavirus 2, PCR Rapid, V [[id number]] Collected: 02/20/22 1939 Lab Status: Final result [...] at the following links: For Healthcare Providers: https://www.fda.gov/media/300210/download For Patients: https://www.[employer].gov/media/723231/download SARS Coronavirus 2, Source, Rapid Swab, Nasopharynx [...] per Echocardiography Contrast Administration Protocol Reference Document [id number]. Patient met an inclusion criterion and did [...] meet Mr. Chery, his , and his frbibdqg-fw-oze in clinic today for further discussion of [...] Albert Waller M.D. [address] [place] [id number] (Wo fermin) 10/10/2022 Surgery Albert Waller Palliati ve RETROGRADE M.D. PYELOGRAM- possible [address] LAZO antegrade ureteroscopy, [place] ureteral stent placement [id number] (Octavio christensen) Scheduled Procedures Name Priority Associated Diagnoses Date/Time RETROGRADE PYELOGRAM Malignant Neoplasm Of 10/10 10:25 AM FOOD SERVICE SALES REPRESENTATIVES Bladder (HCC) ENDOPYELOTOMY RETROGRADE Malignant Neoplasm Of 1 12/11/2021 10:25 AM FOOD SERVICE SALES REPRESENTATIVES Bladder (HCC) CYSTOSCOPY WITH Malignant Neoplasm Of 10/10/2022 10:25 AM FOOD SERVICE SALES REPRESENTATIVES TRANSURETHRAL RESECTION Bladder (HCC) LESION BLADDER documented [...] Urinary Benign Prostatic Hyperplasia Hypertrophy With Obstruction Malignant Neoplasm Of Bladder (HCC) documented in this encounter Care Teams Integrated Marketing Specialist Relationship Specialty Start Date End Date Elsewhere, Pcp PCP - General Internal Medicine 01/14/22 documented as of this encounter
--- OUTSIDE RECORDS SUMMARY | 2022-09-20 14:17 | XMS_ITS | Encounter Summary ---
:1935 Author Organization [facility] Address [address] [place] [address] Care Team Providers Name Role Phone Elsewhere, Pcp Primary Care Provider Unavailable Reason for Referral Outpatient (Routine) - Closed Specialty Diagnoses / Procedures Referred By Contact Refer red To Contact Radiation Oncology [facility]ris [facility] P.A.-C., [facility] [address] [place] [phone] Referral ID Status Reason Start Date Expiration Date Visits Requ ested Visits Authorized [id number] Closed 03/25/2022 03/25/2023 1 1 Reason for Visit Outpatient (Routine) - Closed Specialty Diagnoses / Procedures Referred By Contact Refer red To Contact Radiation Oncology Iris Mishra P.A.-C., [facility] [address] [place] [phone] Referral ID Status Reason Start Date Expiration Date Visits Requ ested Visits Authorized [id number] Closed 03/25/2022 03/25/2023 1 1 Encounter Details Date Type Department Care Team Description 03/26/2022 Hospital Encounter Department of Manny Anderson Neoplasm Radiation Oncology Ashtyn Dubois Of Bladder (HCC) in [place] [address] [facility] (Primary Dx) [place], [place] [address] [facility] [address] [place], [place] [phone] (Work) [phone] Social History Tobacco Use Types Packs/Day Years [...] you attend taoism or Patient refused 2021 mandaen services? Do [...] at Date Recorded Male 09/10/2018 8:41 AM DESK INTERVIEWER documented as of this encounter Last Filed [...] PM CDT RADIATION ONCOLOGY FOLLOW-UP VISIT Supervising Sr. Operations Manager: Dr. Manny Anderson Home address: [address] [place] [phone] SUBJECTIVE History of present illness Mr. Henok [...] Other The patient presented to the [facility] ED with a chief complaint of [...] was performed by Dr. Kurtis Bach at [facility] and demonstrated a large medial lobe of the prostate, 3 cm, with papillary bladder mass, 5 cm, the left bladder wall obstructing the left UO. The patient reported a history of gross hematuria for months and difficulty emptying his bladder. Discussed that the patient ideally would need TURBT and bilateral retrogrades. Patient will need to see his reel slitter for surgical clearance, he is a poor candidate for surgery. 02/08/2022 Other Urology consultation at [facility] with Dr. David Day who recommended [...] or concerns. Dr. Manny Anderson is the center consultant; please see attestation for further details. [...] one of our medical oncology colleagues at [facility] and [facility] at the end of his treatment course. [...] Manny Anderson M.D. 03/26/2022 4:46 PM CDT [facility] [address] [place], [place] [phone] documented in this encounter Plan of Treatment Upcoming Encounters Date Type Specialty Care Team Description 10/10/2022 Hospital Encounter Albert Waller M.D. [address] [place] [phone] (Octavio christensen) 10/10/2022 Surgery Albert Waller Palliati ve RETROGRADE M.D. PYELOGRAM- possible [address] LAZO antegrade ureteroscopy, [place] ureteral stent placement [id number] (Octavio christensen) Scheduled Procedures Name Priority Associated Diagnoses Date/Time RETROGRADE PYELOGRAM Malignant Neoplasm Of 10/10 10:25 AM DESK INTERVIEWER Bladder (HCC) ENDOPYELOTOMY RETROGRADE Malignant Neoplasm Of 1 12/11/2021 10:25 AM DESK INTERVIEWER Bladder (HCC) CYSTOSCOPY WITH Malignant Neoplasm Of 10/10/2022 10:25 AM DESK INTERVIEWER TRANSURETHRAL RESECTION Bladder (HCC) LESION BLADDER Scheduled Referrals Name Type Priority Associated Order Schedule Diagnoses Radiation Oncology Outpatient Referral Routine On ce for 1 office visit Occurrences sta rting (clinic) 03/26/2022 unti l 03/26/2022 documented as of this encounter Visit Diagnoses Diagnosis Malignant Neoplasm Of Bladder (HCC) - Pr imary Malignant Neoplasm Of Bladder (HCC) documented in this encounter Care Teams General Ii Farmworker Relationship Specialty Start Date End Date Elsewhere, Pcp PCP - General Internal Medicine 01/14/22 documented as of this encounter
--- OUTSIDE RECORDS SUMMARY | 2022-09-20 14:17 | XMS_ITS | Encounter Summary ---
:1935 Author Organization [facility] Address [address] [place] [address] Care Team Providers Name Role Phone Elsewhere, Pcp Primary Care Provider Unavailable Encounter Details Date Type Department Care Team Description 03/26/2022 Orders Only Department of Urology in Kimberly Sethi M .D., [place], [place] Ph.D. [address] [place] [phone] Social History Tobacco Use Types Packs/Day [...] you attend temple or Patient refused 2021 quaker services? Do [...] at Date Recorded Male 09/10/2018 8:41 AM STATISTICAL METHODS TEACHER documented as of this encounter Plan [...] PYELOGRAM Malignant Neoplasm Of 10/10 10:25 AM STATISTICAL METHODS TEACHER Bladder (HCC) ENDOPYELOTOMY RETROGRADE Malignant Neoplasm Of 1 12/11/2021 10:25 AM STATISTICAL METHODS TEACHER Bladder (HCC) CYSTOSCOPY WITH Malignant Neoplasm Of 10/10/2022 10:25 AM STATISTICAL METHODS TEACHER TRANSURETHRAL RESECTION Bladder (HCC) LESION BLADDER documented as of this encounter Visit Diagnoses Not on filedocumented in this encounter Care Teams Tool And Die Supervisor Relationship Specialty Start Date End Date Elsewhere, Pcp PCP - General Internal Medicine 01/14/22 documented as of this encounter
--- OUTSIDE RECORDS SUMMARY | 2022-09-20 14:17 | XMS_ITS | Encounter Summary ---
:1935 Author Organization [facility] Address [address] [place] [address] Care Team Providers Name Role Phone Elsewhere, Pcp Primary Care Provider Unavailable Reason for Referral Outpatient (Routine) - Closed Specialty Diagnoses / Procedures Referred By Contact Refer red To Contact Radiation Oncology Diagnoses Malignant Neoplasm Of Bladder (HCC) Cori Reece M.D. [address] [phone] Referral ID Status Reason Start Date Expiration Date Visits Requ ested Visits Authorized [id number] Closed 02/26/2022 02/26/2023 1 1 Reason for Visit Outpatient (Routine) - Closed Specialty Diagnoses / Procedures Referred By Contact Refer red To Contact Radiation Oncology Diagnoses Malignant Neoplasm Of Bladder (HCC) Cori Reece M.D. [address] [phone] Referral ID Status Reason Start Date Expiration Date Visits Requ ested Visits Authorized [id number] Closed 02/26/2022 02/26/2023 1 1 Encounter Details Date Type Department Care Team Description 03/06/2022 Hospital Encounter Department of Manny Anderson Radiation Oncology Ashtyn Dubois Of Bladder (HCC) in [address] (Primary Dx) [place], [place] 1821 [facility] [address] [place], [place] [phone] (Work) [phone] Social History Tobacco Use Types Packs/Day Years [...] you attend hoahaoism or Patient refused 2021 church services? Do you belong to any clubs or No 05/17/2022 organizations such as hoahaoism groups, unions, fraOdeo or athletic groups, or school groups? How [...] at Date Recorded Male 09/10/2018 8:41 AM BAG PATCHER documented as of this encounter Last Filed [...] 9:00 AM CDT RADIATION ONCOLOGY CONSULTATION Supervising Scaling Machine Operator: Dr. Manny Anderson Referring Provider: Cori Reece M.D. Primary Care Provider: Dr. Yamila English Home address: [address] [place] [phone] SUBJECTIVE History of present illness Mr. Henok [...] 01/24/2022 Other The patient presented to the [facility] ED with a chief complaint of [...] was performed by Dr. Kurtis Bach at [facility] and demonstrated a large medial lobe of the prostate, 3 cm, with papillary bladder mass, 5 cm, the left bladder wall obstructing the left UO. The patient reported a history of gross hematuria for months and difficulty emptying his bladder. Discussed that the patient ideally would need TURBT and bilateral retrogrades. Patient will need to see his construction representative for surgical clearance, he is a poor candidate for surgery. 02/08/2022 Other Urology consultation at [facility] with Dr. David Day who recommended [...] urethral catheter and nephrostomy tube. Referral to [facility] provider. 03/12/2022 - Radiation Therapy Radiation Therapy Treatment Details (Noted on 03/05/2022) Site: Bladder Technique: No technique specified Goal: Curative Planned Treatment Start Date: 03/12/2022 In the clinic today, Mr. Henok Chery defers most questions and responses to his and hfqfvvln-es-nbx. He reports feeling fine but when prompted [...] as medically taking preference, but the patient's yqenujmm-tc-pcr wished to hear from urology as to [...] or concerns. Dr. Manny Anderson is the business sales consultant; please see attestation for further [...] Dr. Lennon' note. He has an indwelling Villarrael catheter and nephrostomy tube. The catheter is quite bothersome to him. He is highly motivated to have it removed. He continues to have hematuria. His ECOGperformance status is 2 -3. OBJECTIVE PHYSICAL EXAM General: Patient is awake, alert, and oriented to person, place, and time. No apparent distress. He is here today with his Miesha and his wtitcchu-bd-tiy Patricia. He has a Villarreal catheter in [...] Manny Anderson M.D. 03/06/2022 11:36 PM CDT [facility] [address] [place] [address] documented in this encounter Miscellaneous Notes Addendum Note - Vicki Hector C.N.A. - 03/06/2022 9:00 AM CDT Encounter addended by: Vicki Hector C.N.A. on: 03/07/2022 7:09 AM Actions taken: Letter saved documented in this encounter Plan of Treatment Upcoming Encounters Date Type Specialty Care Team Description 10/10/2022 Hospital Encounter Albert Waller M.D. [address] [place] [phone] (Octavio christensen) 10/10/2022 Surgery Albert Waller Palliati ve RETROGRADE M.D. PYELOGRAM- possible [address] LAZO antegrade ureteroscopy, [place] ureteral stent placement [id number] (Octavio christensen) Scheduled Procedures Name Priority Associated Diagnoses Date/Time RETROGRADE PYELOGRAM Malignant Neoplasm Of 10/10 10:25 AM BAG PATCHER Bladder (HCC) ENDOPYELOTOMY RETROGRADE Malignant Neoplasm Of 1 12/11/2021 10:25 AM BAG PATCHER Bladder (HCC) CYSTOSCOPY WITH Malignant Neoplasm Of 10/10/2022 10:25 AM BAG PATCHER TRANSURETHRAL RESECTION Bladder (HCC) LESION BLADDER Scheduled [...] (HCC) documented in this encounter Care Teams Radiotelephone Operator Relationship Specialty Start Date End Date Elsewhere, Pcp PCP - General Internal Medicine 01/14/22 documented as of this encounter
--- OUTSIDE RECORDS SUMMARY | 2022-09-20 14:17 | XMS_ITS | Encounter Summary ---
:1935 Author Organization [facility] Address [address] [place] [address] Care Team Providers Name Role Phone Elsewhere, Pcp Primary Care Provider Unavailable Encounter Details Date Type Department Care Team Description 03/24/2022 Clinical Communication Department of Urology Hector Sethi, in [facility] lonny Chamorro, Ph.D. [address] [place] [address] Social History Tobacco Use Types Packs/Day Years [...] you attend adventist or Patient refused 2021 christian services? 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 [address] [place] [phone] (Octavio christensen) 10/10/2022 Surgery Albert Waller Palliati ve RETROGRADE M.D. PYELOGRAM- possible [address] LAZO antegrade ureteroscopy, [place]EE [place] ureteral stent placement [id number] (Octavio christensen) Scheduled Procedures Name Priority Associated Diagnoses Date/Time RETROGRADE PYELOGRAM Malignant Neoplasm Of 10/10 10:25 AM SENIOR JAVA DEVELOPER Bladder (HCC) ENDOPYELOTOMY RETROGRADE Malignant Neoplasm Of 1 12/11/2021 10:25 AM SENIOR JAVA DEVELOPER Bladder (HCC) CYSTOSCOPY WITH Malignant Neoplasm Of 10/10/2022 10:25 AM SENIOR JAVA DEVELOPER TRANSURETHRAL RESECTION Bladder (HCC) LESION BLADDER documented as of this encounter Visit Diagnoses Not on filedocumented in this encounter Care Teams Operations Administrator Relationship Specialty Start Date End Date Elsewhere, Pcp PCP - General Internal Medicine 01/14/22 documented as of this encounter
--- OUTSIDE RECORDS SUMMARY | 2022-09-20 14:17 | XMS_ITS | Encounter Summary ---
:1935 Author Organization [facility] Address 200 [place] [address] Care Team Providers Name Role Phone Elsewhere, Pcp Primary Care Provider Unavailable Reason for Visit Reason Comments Urinary Retention UCO/VT Outpatient (Routine) - Closed Specialty Diagnoses / Procedures Referred By Contact Refer red To Contact Diagnoses Retention Urinary Cori Reece M.D. [facility] Procedures URO Urethral cath removal & voiding trial (UCO/VT) [address] [place] [phone] Referral ID Status Reason Start Date Expiration Date Visits Requ ested Visits Authorized [id number] Closed 02/22/2022 02/22/2023 1 1 Encounter Details Date Type Department Care Team Description 02/27/2022 Procedure visit Department of Urology Bao Reece M.D. [address] [place] [phone] Retention Urinary in [facility] Manasa Justice, RJluisNJluis [address] [place] [phone] [place] [phone] Social History Tobacco Use Types Packs/Day Years [...] you attend tenriism or Patient refused 2021 faith services? Do you belong to any clubs or No 05/17/2022 organizations such as tenriism groups, unions, fraMinteos or athletic groups, or school groups? 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 LAB URINE ORDERABLES Performing Organization Address City/[facility] Phon e Number [facility] - [address] [place] [address] [facility] pH, Urine (02/27/2022 11:20 AM CDT) [facility] Signature pH, U 5.7 4.5 - 8.0 02/27/2022 12:07 DTL PM CDT Specimen Anatomical Collection Method Collection Time Receive d Time (Source) Location / / Volume Laterality Urine 02/27/2022 11:20 02/27/2022 AM CDT 11:29 AM CDT Conor Lakhani M.D. LAB URINE ORDERABLES Performing Organization Address City/[facility] Phon e Number [facility] - [address] [place], [place] [address] [place] [address] Osmolality, Urine (02/27/2022 11:20 AM CDT) P athologist Signature Osmolality, U 288 150 - 1150 02/27/2022 DTL mOsm/kg 12:07 PM CDT Specimen Anatomical Collection Method Collection Time Receive d Time (Source) Location / / Volume Laterality Urine 02/27/2022 11:20 02/27/2022 AM CDT 11:29 AM CDT Conor Lakhani M.D. LAB URINE ORDERABLES Performing Organization Address [facility] Phon e Number [facility] - 200 [place], [place] [address] [facility] [place] [address] Laboratories[address] (ABNORMAL) Microscopic Automated (02/27/2022 11:20 AM CDT) [facility] [employer] Method Time Signature Microscopy Abnormal 02/27/2022 DTL [...] M.D. LAB URINE ORDERABLES Performing Organization Address City/[facility]/ZIP Code Phon e Number [facility] - 200 [place], [place] [address] [facility] [place] [address] [facility]-[address] Bacterial Culture, Aerobic + Susc, Urine (02/27/2022 11:20 AM CDT) [facility] Method Time Signature Urine Culture No growth 02/28/2022 DTL after 1 day 8:02 AM CDT of incubation. Specimen (Source) Anatomical Collection Method Collection Time Re ceived Time Location / / Volume Laterality Urine (Urine, 02/27/2022 11:20 02/27/2022 Indwelling AM CDT 12:10 PM CDT Catheter) Comment: Specimen Source Site: Urine Conor Lakhani M.D. LAB MICROBIOLOGY - GENERAL O RDERABLES Performing Organization Address City/[facility] Phon e Number [facility] - [address] [place], [place] [address] [place] [address] Laboratories-[address] Urinalysis with Microscopic: Urine, Catheter (02/27/2022 11:20 AM CDT) [facility] gist Method Time Signature Source Urine, Urine, [...] M.D. LAB URINE ORDERABLES Performing Organization Address City/[facility] Code Phon e Number [facility] - 200 [place], [place] [address] [facility] [place] [address] Laboratories[address] documented in this encounter Visit Diagnoses Diagnosis Retention Urinary Malignant Neoplasm Of Bladder (HCC) documented in this encounter Care Teams Inner Tube Tuber Machine Operator Relationship Specialty Start Date End Date Elsewhere, Pcp PCP - General Internal Medicine 01/14/22 documented as of this encounter
--- OUTSIDE RECORDS SUMMARY | 2022-09-20 14:17 | XMS_ITS | Encounter Summary ---
:1935 Author Organization [facility] Address [address] [place] [address] Care Team Providers Name Role Phone Elsewhere, Pcp Primary Care Provider Unavailable Encounter Details Date Type Department Care Team Description 03/22/2022 Clinical Communication Department of Urology Flakita Bradshaw in Sherly Batista M.D. [address] [place] [phone] Social History Tobacco Use Types Packs/Day Years [...] you attend congregation or Patient refused 2021 mandaen services? Do [...] at Date Recorded Male 09/10/2018 8:41 AM BOOM MAN documented as of this encounter Miscellaneous Notes [...] PYELOGRAM Malignant Neoplasm Of 10/10 10:25 AM BOOM MAN Bladder (HCC) ENDOPYELOTOMY RETROGRADE Malignant Neoplasm Of 1 12/11/2021 10:25 AM BOOM MAN Bladder (HCC) CYSTOSCOPY WITH Malignant Neoplasm Of 10/10/2022 10:25 AM BOOM MAN TRANSURETHRAL RESECTION Bladder (HCC) LESION BLADDER documented as of this encounter Visit Diagnoses Not on filedocumented in this encounter Care Teams Advisor To Command In Combat Relationship Specialty Start Date End Date Elsewhere, Pcp PCP - General Internal Medicine 01/14/22 documented as of this encounter
--- OUTSIDE RECORDS SUMMARY | 2022-09-20 14:17 | XMS_ITS | Encounter Summary ---
:1935 Author Organization [facility] Address [address] [place] [address] Care Team Providers Name Role Phone Elsewhere, Pcp Primary Care Provider Unavailable Encounter Details Date Type Department Care Team Description 03/24/2022 Orders Only Department of Urology Kimberly Sethi Rete ntion Urinary in [facility] lonny Chamorro, Ph.D. Chronic (Primary Dx) [address] [place] [address] Social History Tobacco Use Types Packs/Day Years [...] you attend anglican or Patient refused 2021 latter-day services? 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 [address] [place] [id number] (Wo rk) 10/10/2022 Surgery Albert Waller Palliati ve RETROGRADE M.D. PYELOGRAM- possible [address] LAZO antegrade ureteroscopy, JAIMEE Eason ureteral stent placement [id number] (Octavio christensen) Scheduled Procedures Name Priority Associated Diagnoses Date/Time RETROGRADE PYELOGRAM Malignant Neoplasm Of 10/10 10:25 AM TRUCK BODY BUILDER APPRENTICE Bladder (HCC) ENDOPYELOTOMY RETROGRADE Malignant Neoplasm Of 1 12/11/2021 10:25 AM TRUCK BODY BUILDER APPRENTICE Bladder (HCC) CYSTOSCOPY WITH Malignant Neoplasm Of 10/10/2022 10:25 AM TRUCK BODY BUILDER APPRENTICE TRANSURETHRAL RESECTION Bladder (HCC) LESION BLADDER documented as of this encounter Visit Diagnoses Diagnosis 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
--- OUTSIDE RECORDS SUMMARY | 2022-09-20 14:17 | XMS_ITS | Encounter Summary ---
:1935 Author Organization [facility] Address [address] [place] [address] Care Team Providers Name Role Phone Elsewhere, Pcp Primary Care Provider Unavailable Reason for Visit Outpatient (Routine) - Closed Specialty Diagnoses / Procedures Referred By Contact Refer red To Contact Diagnoses Benign Prostatic Hyperplasia Hypertrophy With Obstruction Flakita Bradshaw M.D. Procedures URO Urodynamic study (with flow) [address] [place] [phone] Referral ID Status Reason Start Date Expiration Date Visits Requ ested Visits Authorized [id number] Closed 03/21/2022 03/21/2023 1 1 Encounter Details Date Type Department Care Team Description 03/22/2022 Procedure visit Department of Flakita Bradshaw M.D. [address] [place] [phone] Benign Prostatic Urology in Bassam Klein M.D. [address] [place] [phone] Hyperplasia [place], [place] Kush Dumont [address] [place] [phone] Hypertrophy With [address] [facility] [place] [phone] Social History Tobacco Use Types Packs/Day Years [...] attend latter day or Patient refused 2021 confucianist services? Do you belong to any clubs or No 05/17/2022 organizations such as latter day groups, unions, fra[employer]en[employer] or athletic groups, or school groups? How [...] at Date Recorded Male 09/10/2018 8:41 AM SECURITY AGENT documented as of this encounter Progress Notes [...] 10/10/2022 Hospital Encounter Albert Waller M.D. [address] [place] [phone] (Octavio christensen) 10/10/2022 Surgery Albert Waller Palliati ve RETROGRADE M.D. 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
--- OUTSIDE RECORDS SUMMARY | 2022-09-20 14:17 | XMS_ITS | Encounter Summary ---
:1935 Author Organization [facility] Address [address] [place] [address] Care Team Providers Name Role Phone Elsewhere, Pcp Primary Care Provider Unavailable Reason for Visit Reason Comments Rx Prior Authorization PA DENIED TROSPIUM CHLORIDE 20 MG TAB Encounter Details Date Type Department Care Team Description 03/05/2022 Clinical Communication Pharmacy Prior Vladimir George Rx Prior RO [phone] Authorization (MARTY DENIED TROSPIUM CHLORIDE 20 MG [...] attend latter day or Patient refused 2021 mormon services? 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 GAMMA RAY OPERATOR documented as of this encounter Miscellaneous [...] PYELOGRAM Malignant Neoplasm Of 10/10 10:25 AM GAMMA RAY OPERATOR Bladder (HCC) ENDOPYELOTOMY RETROGRADE Malignant Neoplasm Of 1 12/11/2021 10:25 AM GAMMA RAY OPERATOR Bladder (HCC) CYSTOSCOPY WITH Malignant Neoplasm Of 10/10/2022 10:25 AM GAMMA RAY OPERATOR TRANSURETHRAL RESECTION Bladder (HCC) LESION BLADDER documented as of this encounter Visit Diagnoses Not on filedocumented in this encounter Care Teams Rope Walker Relationship Specialty Start Date End Date Elsewhere, Pcp PCP - General Internal Medicine 01/14/22 documented as of this encounter
--- OUTSIDE RECORDS SUMMARY | 2022-09-20 14:18 | XMS_ITS | Encounter Summary ---
:1935 Author Organization [facility] Address [address] [place] [address] Care Team Providers Name Role Phone Elsewhere, Pcp Primary Care Provider Unavailable Encounter Details Date Type Department Care Team Description 02/22/2022 Orders Only Department of Urology Chasidy Lakhani Neoplasm Of in [place], [facility] lonny Perdomo M.D. Bladder (HCC) (Primary [address] [place]x) [place] [address] Social History Tobacco Use Types [...] you attend jewish or Patient refused 2021 holiness services? Do [...] at Date Recorded Male 09/10/2018 8:41 AM NONPROFIT MANAGER documented as of this encounter Plan of Treatment Upcoming Encounters Date Type Specialty Care Team Description 10/10/2022 Hospital Encounter Albert Waller M.D. [address] [place] [phone] (Wo rk) 10/10/2022 Surgery Albert Waller Palliati ve RETROGRADE Ashtyn PYELOGRAM- possible [address] LAZO antegrade ureteroscopy, JAIMEE Eason ureteral stent placement [id number] (Wo rk) Scheduled Procedures Name Priority Associated Diagnoses Date/Time RETROGRADE PYELOGRAM Malignant Neoplasm Of 10/10 10:25 AM NONPROFIT MANAGER Bladder (HCC) ENDOPYELOTOMY RETROGRADE Malignant Neoplasm Of 1 12/11/2021 10:25 AM NONPROFIT MANAGER Bladder (HCC) CYSTOSCOPY WITH Malignant Neoplasm Of 10/10/2022 10:25 AM NONPROFIT MANAGER TRANSURETHRAL RESECTION Bladder (HCC) LESION BLADDER documented as of this encounter Visit Diagnoses Diagnosis Malignant Neoplasm Of Bladder (HCC) - Pr imary Malignant Neoplasm Of Bladder (HCC) documented in this encounter Care Teams Asbestos Removal Supervisor Relationship Specialty Start Date End Date Elsewhere, Pcp PCP - General Internal Medicine 01/14/22 documented as of this encounter
--- OUTSIDE RECORDS SUMMARY | 2022-09-20 14:18 | XMS_ITS | Encounter Summary ---
:1935 Author Organization [facility] Address [address] [place] [address] Care Team Providers Name Role Phone Elsewhere, Pcp Primary Care Provider Unavailable Encounter Details Date Type Department Care Team Description 02/13/2022 Clinical Communication Department of Urology David Aguero, in [facility] Juan., B.Ch., [place] B.A.O. [address] [facility] [address] [place] [phone] Social History Tobacco Use Types Packs/Day Years [...] you attend baptism or Patient refused 2021 zoroastrian services? Do [...] CRYPTOGRAPHY TEACHER documented as of this encounter Miscellaneous [...] going to schedule the COVID test in [place] documented in this encounter Plan of Treatment [...] PYELOGRAM Malignant Neoplasm Of 10/10 10:25 AM CRYPTOGRAPHY TEACHER Bladder (HCC) ENDOPYELOTOMY RETROGRADE Malignant Neoplasm Of 1 12/11/2021 10:25 AM CRYPTOGRAPHY TEACHER Bladder (HCC) CYSTOSCOPY WITH Malignant Neoplasm Of 10/10/2022 10:25 AM CRYPTOGRAPHY TEACHER TRANSURETHRAL RESECTION Bladder (HCC) LESION BLADDER documented as of this encounter Results SARS Coronavirus-2 RNA, V Asymptomatic (02/15/2022 9:22 AM CDT) [facility] Method Time Signature SARS-CoV-2 Swab, 02/15/2022 [...] pe rformed using the Aptima SARS-CoV-2 assay ([employer] on the EVERFANSs tem under emergency use authorization (EUA) by the U.S. Food and Drug Administ ration. Fact sheets for this EUA assay can be fo und at the following links: For Healthcare Providers: https://www.fd a.gov/media/030843/download For Patients: https://www.fda.gov/media/ 354086/download Specimen Anatomical Collection Method Collection Time Receive d Time (Source) Location / / Volume Laterality Varies 02/15/2022 9:22 AM 3:08 (Nasopharynx) CDT PM CDT David Sevilla, B.Tj., B.A.O. LAB MICROBIOLOGY - GENERAL ORDERABLES Performing Organization Address City/State/ZIP Code Phon e Number [facility]- [address] [place] [phone] [facility] [place] [address] [address] documented in this encounter Visit Diagnoses Diagnosis Hydronephrosis - Primary Mass Bladder Malignant Neoplasm Of Bladder (HCC) documented in this encounter Care Teams Blade Operator Relationship Specialty Start Date End Date Elsewhere, Pcp PCP - General Internal Medicine 01/14/22 documented as of this encounter
--- OUTSIDE RECORDS SUMMARY | 2022-09-20 14:18 | XMS_ITS | Encounter Summary ---
:1935 Author Organization [facility] Address [address] [place] [address] Care Team Providers Name Role Phone Elsewhere, Pcp Primary Care Provider Unavailable Reason for Referral Outpatient (Routine) - Closed Specialty Diagnoses / Procedures Referred By Contact Refer red To Contact Radiology Diagnoses Malignant Neoplasm Of Bladder (HCC) Nura David IV [facility] Procedures IR Nephrostomy Tube Exchange Left M.D. [address] [place], [place] [address] Referral ID Status Reason Start Date Expiration Date Visits Requ ested Visits Authorized [id number] Closed 02/22/2022 02/22/2023 1 1 Encounter Details Date Type Department Care Team Description 02/22/2022 Orders Only Department of Urology Nura David Malignant Neoplasm Of in Becky Batista IV, M.D. Bladder (HCC) (Primary [place] 200 [facility] Dx) [address] [place] [phone] Social History Tobacco Use Types Packs/Day Years [...] 05/17/2022 organizations such as jewish groups, unions, fra51edu or athletic groups, or school groups? 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 Drain to gravity [...] lidoca ine used for local anesthesia. Fluoroscopic kinder teacher image demonstrates unchanged position of the l eft 10 [place] percutaneous nephrostomy tube. Injection of contrast demonstrated a locking loop wit hin the markedly dilated left renal pelvis with high-grade narrowing at the left UPJ. Drain removed in its entirety over a guidewire and a new 10 [place] locking loop catheter advanced with lock ing [...] lidoca ine used for local anesthesia. Fluoroscopic kinder teacher image demonstrates unchanged position of the l eft 10 [place] percutaneous nephrostomy tube. Injection of contrast demonstrated a locking loop wit hin the markedly dilated left renal pelvis with high-grade narrowing at the left UPJ. Drain removed in its entirety over a guidewire and a new 10 [place] locking loop catheter advanced with lock ing [...] blood loss: minimal.. IMPRESSION: Routine exchange 10 [place] left percutan eous nephrostomy tube. Drain to gravity bag drainage. Routine exchange in 10-12 week s. NR Nura David IV, M.D. 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
--- OUTSIDE RECORDS SUMMARY | 2022-09-20 14:18 | XMS_ITS | Encounter Summary ---
:[address] [facility] Address [address] [place] [address] Care Team Providers Name Role Phone Elsewhere, Pcp Primary Care Provider Unavailable Encounter Details Date Type Department Care Team Description 02/26/2022 Orders Only Pharmacy Prior Auth [address] [phone] Social History Tobacco Use Types Packs/Day Years [...] you attend evangelical or Patient refused 2021 uatsdin services? 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 [address] [place] [phone] (Wo rk) 10/10/2022 Surgery Albert Waller, Rivera kumar RETROGRADE MJluisDJluis PYELOGRAM- possible [address] LAZO antegrade ureteroscopy, JAIMEE Eason ureteral stent placement [id number] (Wo rk) Scheduled Procedures Name Priority Associated Diagnoses Date/Time RETROGRADE PYELOGRAM Malignant Neoplasm Of 10/10 10:25 AM BOILER TUBE REAMER Bladder (HCC) ENDOPYELOTOMY RETROGRADE Malignant Neoplasm Of 1 12/11/2021 10:25 AM BOILER TUBE REAMER Bladder (HCC) CYSTOSCOPY WITH Malignant Neoplasm Of 10/10/2022 10:25 AM BOILER TUBE REAMER TRANSURETHRAL RESECTION Bladder (HCC) LESION BLADDER documented as of this encounter Visit Diagnoses Not on filedocumented in this encounter Care Teams Boilermaker Helper Relationship Specialty Start Date End Date Elsewhere, Pcp PCP - General Internal Medicine 01/14/22 documented as of this encounter
--- OUTSIDE RECORDS SUMMARY | 2022-09-20 14:18 | XMS_ITS | Encounter Summary ---
:1935 Author Organization [facility] Address [address] [place] [address] Care Team Providers Name Role Phone Elsewhere, Pcp Primary Care Provider Unavailable Reason for Referral Medication Prior Authorization - Denied Specialty Diagnoses / Procedures Referred By Contact Refer red To Contact Nura David IV, M.D. [address] [place] [phone] Referral ID Status Reason Start Date Expiration Date Visits Requ ested Visits Authorized [id number] Denied 1 1 Outpatient (Routine) - Closed Specialty Diagnoses / Procedures Referred By Contact Refer red To Contact Diagnoses Retention Urinary Cori Reece M.D. [facility] Procedures URO Urethral cath removal & voiding trial (UCO/VT) [address] [place] [phone] Referral ID Status Reason Start Date Expiration Date Visits Requ ested Visits Authorized [id number] Closed 02/22/2022 02/22/2023 1 1 utpatient (Routine) - Closed Specialty Diagnoses / Procedures Referred By Contact Refer red To Contact Urology Cori Reece M.D . [facility] [address] [place] [address] Referral ID Status Reason Start Date Expiration Date Visits Requ ested Visits Authorized [id number] Closed 02/22/2022 02/22/2023 1 1 Scheduling Instructions [facility] Reason for Visit MRI/CAT/PET Scan (Routine) - Closed Specialty Diagnoses / Procedures Referred By Contact Refer red To Contact Radiology Diagnoses Mass Bladder David Day M.B., [facility] Procedures CT Abdomen and/or Pelvis Biopsy CT Biopsy Other B.Ch., B.A.O. [address] [place] [phone] Referral ID Status Reason Start Date Expiration Date Visits Requ ested Visits Authorized [id number] Closed 02/12/2022 02/12/2023 1 1 Encounter Details Date Type Department Care Team Description 02/18/2022 - Hospital Encounter [facility] Richmond Day M.B., B.Ch., B.A.O. 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 [address] [place] [phone] Mass Bladder; [facility], Sixth Floor [address] [place] [phone] Social History Tobacco Use Types Packs/Day Years [...] you attend jewish or Patient refused 2021 temple services? 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 Primary [...] hospital problems. * DISCHARGE DISPOSITION Home-Health Care [facility] [6] ACTIVE ISSUES REQUIRING FOLLOW UP - [facility] outpatient clinic visit on Tuesday 02/27 [...] related to the procedure, please contact the [facility] radial drill operator ([phone]) and ask to be connected to the non-vascular interventional radiology fellow steward/stewardess second class AttachmentsThe following attachments cannot be sent through Care Everywhere. Sulfamethoxazole (By mouth) (Citizen Of [place])Trospium (By mouth) (Citizen Of [place])documented in this encounter Medications at Time of [...] of bladder mass with Interventional Radiology today. Celia-procedural course thus far unremarkable. He denies nausea, [...] for TURBT Please page Chief Urology at [phone] from 7 AM - 5 PM or at [phone] after hours with any questions/concerns. Cori Reece M.D. documented in this encounter Consult Notes Braden Gan M.D. - 02/21/2022 4:57 PM CDTAssociated Order(s): IP CONSULT TO CARDIOLOGY CARDIOLOGY CONSULT NOTE DEMOGRAPHIC INFORMATION Patient Name: Henok Chery Birthdate: 1935 Age: 86 y.o. Sex: male Address: [address] [place] [phone] CHIEF COMPLAINT/PURPOSE OF VISIT - Pre-operative evaluation [...] staffed with Dr. Louis. Please page the [facility] consult service in case of questions or concerns. Braden Gan M.D. 02/21/22 Damaris Gooden RJluisN. 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 no benefits: No Advance Directives Advance Directives: N/A Advance Directives Status: N/A OBJECTIVE Baseline Functional Status Baseline Activities of Daily Living Dressing: Independent Feeding: Independent Bathing: Needs assistance Grooming: Independent Toileting: Independent Behavior: Appropriate Communication: Talks, Understands speaking, Understands Citizen Of [place] Shopping: Needs assistance Transportation: Support from family Medication Management: Needs assistance Housekeeping: Needs assistance Meal Prep: Needs assistance Managing Finances: Needs assistance Assistive Devices: Walker - four wheeled, Scooter Services/Resources: Home health Agency Name: [facility] Provided: [facility]CI, PT Baseline Services/Resources Primary care clinic and provider: ELSEWHERE, PCP Services/Resources: Home health Additional Resources: NA Anticipated Needs Functional Status: None Assistive Devices: Walker - four wheeled, Oxygen, Scooter, Tub/shower chair/bench Services/Resources: Home health Agency Name: [facility] Provided: [facility]CI, PT Transportation Needs: Support from family Does the patient need discharge transport arranged?: No Anticipated Discharge Destination: Home-Health Care [facility] ASSESSMENT / PLAN Plan Assessment: The metal pattern maker met with Henok Chery to discuss his current hospitalization and home going needs. The patient was accompanied by , Miesha. The patient's was a reliable historian. The role of metal pattern maker was reviewed. The patient's reviewed his prior level of care and support system. The patient receives support from his and children. The patient's described his living environment as a home with bedroom and bathroom on same floor with level entry. Housekeeping, grocery shopping, meal prep, and other household responsibilities have previously been completed by patient's . metal pattern maker discussed the patient's potential needs at dismissal [...] live together in a one-story home in [place], [place]. Patient'swife states patient utilizes a walker [...] Homecare and home oxygen is provided by [employer]. The patient's reports understanding that he will [...] dismissal will be provided by family--. 3. metal pattern maker recommended reaching out to family, friends, and neighbors for assistance. 4. metal pattern maker provided information regarding the dismissal process. 5. metal pattern maker placed or requested the following hospital-based consult orders and/or referrals:None. 6. metal pattern maker will continue to assess for homegoing needs with the interdisciplinary team. 7. metal pattern maker encouraged the patient to reach out with any questions/concerns. Patient to discharge with home health care. Home Medical Care - Admitted Since 02/18/2022 Service Provider Selected Services Address Phone Fax Patient Preferred [facility] - [facility] [address] [facility] [address] -- Contact: Intake NURSING: - Complete documentation in the Discharge Navigator including Nursing Report Info and Facility/NextLevel of Care Info - Call report and arrange for the patient???s first visit. - Send required packet of dismissal information with patient, including After Visit Summary and advance directive. PRIMARY SERVICE: - Please provide a non-[place] home health order for resumption of previous [...] Selected Services Address Phone Fax Patient Preferred [facility] Durable Medical Equipment [address] [phone] -- Contact: Intake Respiratory Equipment : [...] 02/21/2022 documented in this encounter Nursing Notes Shelely Baker R.N. - 02/22/2022 6:34 PM CDT [...] RN, ENAN, MAGDALENAS, CCS, CRC Clinical Documentation Angular Developer Query created by: LAURA Iniguez, RN, CPN, [...] medicine question arises through his hospital course [phone]. Judy Schumacher MD MS Internal Medicine, PGY3 General Internal Medicine Consults [phone] Hospital Course - Nura David IV, M.D. [...] M.D. [address] [place] [phone] (Octavio rk) 10/10/2022 Surgery Albert Waller Palliati ve RETROGRADE M.D. 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 SUPERVISOR Bladder (HCC) ENDOPYELOTOMY RETROGRADE Malignant Neoplasm Of 1 12/11/2021 10:25 AM WIRE ROPE FABRICATION SUPERVISOR Bladder (HCC) CYSTOSCOPY WITH Malignant Neoplasm Of 10/10/2022 10:25 AM WIRE ROPE FABRICATION SUPERVISOR TRANSURETHRAL RESECTION Bladder (HCC) LESION BLADDER Scheduled [...] Provider LAB POCT ORDERABLES-MANUAL Performing Organization Address City/[facility] Code Phon e Number POC [facility] [address] [place] [address] [place] [address] [place] [facility] [address] (ABNORMAL) Glucose, POCT (02/22/2022 11:26 AM CDT) Analysis Performed At [facility] Time Signature Glucose, POCT, 190 (H) 70 [...] Provider LAB POCT ORDERABLES-MANUAL Performing Organization Address City/[facility] Phon e Number POC [facility] SERVICES [address] [place] [address] [place] [address] [place] [facility] [address] Glucose, POCT (02/22/2022 [...] Provider LAB POCT ORDERABLES-MANUAL Performing Organization Address City/State/[facility] Code Phon e Number [facility] [address] [place] [address] [facility] [place] [address] [place] [facility] [address] [facility] (ABNORMAL) CBC without Differential (02/22/2022 3:59 AM CDT) [facility] gist Method Time Signature Hemoglobin 7.6 (L) [...] 22 4:30 Venous) CDT AM CDT Cori Recee M.D. LAB BLOOD ADD-ON Performing Organization Address City/State/ZIP Code Phon e Number [facility] - [address] [place], [place] [address] [place] [address] Laboratories-[facility] [address] (ABNORMAL) Basic Metabolic Panel (02/22/2022 3:59 [...] 02/22/2022 DTL Black/ mL/min/BSA 5:02 AM CDT Ghanaian Comment: ----ADDITIONAL INFORMATION---- Estimated GFR calculated using [...] Address City/State/ZIP Code Phon e Number [facility] - [address] [place], [place] [address] [place] [address] [facility] 200 [facility] Glucose, POCT (02/21/2022 9:39 PM CDT) Analysis [...] Provider LAB POCT ORDERABLES-MANUAL Performing Organization Address City/[facility]/ZIP [facility] Phon e Number [facility] [address] [place] [address] [place] [address] [facility] 200 [facility] (ABNORMAL) Hemoglobin (02/21/2022 6:21 PM CDT) P athologist Signature Hemoglobin 8.0 (L) 13.2 - 16.6 02/21/2022 DTL g/dL 6:38 PM CDT Specimen Anatomical Collection Method Collection Time Receive d Time (Source) Location / / Volume Laterality Blood (Blood, 02/21/2022 6:21 PM 02/22/20 22 6:32 Venous) CDT PM CDT Cori Reece M.D. LAB BLOOD ADD-ON Performing Organization Address City/State/ZIP Code Phon e Number [facility] - [address] [place], [place] [address] [place] [address] [facility] 200 [facility] (ABNORMAL) Glucose, POCT (02/21/2022 5:09 PM CDT) [...] Address City/State/ZIP Code Phon e Number POC [facility] [address] [place] [address] [facility] [place] [address] [place] [facility] [address] US Urinary Bladder (02/21/2022 2:35 PM [...] Address City/State/ZIP Code Phon e Number [facility] - [address] [place], [place] [address] [place] [address] [facility] [address] [facility] (ABNORMAL) Glucose, POCT (02/21/2022 11:38 AM CDT) [...] Provider LAB POCT ORDERABLES-MANUAL Performing Organization Address City/[facility]/ZIP Code Phon e Number POC [facility] [address] [place] [address] [facility] [place] [address] [place] [facility] 200 [facility] (TTE) 2D ECHO DOPPLER COLOR AND CONTRAST [...] to exclude thrombus in this location. No ??celia cardial effusion. Attempts were made to optimize the echocardiographic images and two or more left ventricular segments were not visualized adequately to evaluate cardiac structure. The patient's current allergies and medications have been screened. Imaging enhancement agent administered per Echocardiography Contrast Administration Protocol Reference Document [id number]. Patient met an inclusion criterion and did [...] per Echocardiography Contrast Administration Protocol Reference Document [id number]. Patient met an inclusion criterion and did [...] (02/21/2022 8:58 AM CDT) Analysis Performed At [facility] Time Signature Glucose, POCT, 119 70 [...] Address City/State/ZIP Code Phon e Number POC [facility] [address] [place] [address] [facility] [place] [address] [place] [facility] [address] (ABNORMAL) Basic Metabolic Panel (02/21/2022 3:46 AM CDT) Analysis Performed At [facility] Time Signature Potassium, S 4.8 3.6 - [...] 02/21/2022 DTL Black/ mL/min/BSA 5:14 AM CDT Ghanaian Comment: ----ADDITIONAL INFORMATION---- Estimated GFR calculated using [...] Address City/State/ZIP Code Phon e Number [facility] - [address] [place], [place] [address] [place] [address] [facility] 200 [facility] (ABNORMAL) CBC without Differential (02/21/2022 3:46 AM CDT) [facility] gist Method Time Signature Hemoglobin 7.1 (L) 13.2 [...] M.D. LAB BLOOD ADD-ON Performing Organization Address City/[facility] Phon e Number [facility] - [address] [place], [place] [address] [place] [address] Laboratories-[address] SARS Coronavirus 2, PCR Rapid, V (02/20/2022 7:39 PM CDT) Patholo gist Method Time Signature SARS CoV-2, Undetected Undetected 02/20/2022 STMA PCR, Rapid, V 8:04 PM CDT Comment: ----ADDITIONAL INFORMATION---- This RT-PCR test was performed using the Simran SARS-CoV-2 and Influenza A/B Reagent assay from [employer], which has received Emergency Use Authori zation(EUA) by the U.S. Food and Drug Administration . Fact sheets for this Emergency Use Autho rization (EUA) assay can be found at the following link s: For Healthcare Providers: https://www.fda.gov/media/202551/downloa d For Patients: https://www.fda.gov/media/251796/downloa d SARS Coronavirus 2, Source, Rapid Swab, Nasopharynx 02/20/2022 7:39 PM CDT [facility] Comment: REVISED RESULTS Specimen Anatomical Collection Method Collection Time Receive d Time (Source) Location / / Volume Laterality Varies 02/20/2022 7:39 PM 7:39 CDT PM CDT Nura David IV, M.D. LAB MICROBIOLOGY - GENERA L ORDERABLES Performing Organization Address City/[facility] Phon e Number [facility] - [address] [place], [place] [address] [place] [address] Laboratories-[address] Glucose, POCT (02/20/2022 7:12 PM CDT) [...] Address City/State/ZIP Code Phon e Number POC [facility] [address] [place] [address] [facility] [place] [address] [place] [facility] [address] (ABNORMAL) Glucose, POCT (02/20/2022 12:19 PM CDT) [...] Provider LAB POCT ORDERABLES-MANUAL Performing Organization Address City/[facility]/ZIP Code Phon e Number [facility] [address] [place] [address] [place] [address] [place] [facility] [address] Fibrinogen (02/20/2022 12:13 PM CDT) P athologist Signature Fibrinogen, P 287 200 - 393 02/20/2022 DTL mg/dL 1:24 PM CDT Specimen Anatomical Collection Method Collection Time Receive d Time (Source) Location / / Volume Laterality Blood (Blood, 02/20/2022 12:13 02/20/2022 Venous) PM CDT 12:42 PM CDT Nura David IV, M.D. LAB BLOOD ADD-ON Performing Organization Address City/State/ZIP Code Phon e Number [facility] - [address] [place], [place] [address] [place] [address] [facility] [place] [address] (ABNORMAL) Prothrombin Time (PT) [...] M.D. LAB BLOOD ADD-ON Performing Organization Address City/State/[facility] Code Phon e Number [facility] - [address] [place], [place] [address] [place] [address] [facility] 200 [facility] (ABNORMAL) Hepatic Function Panel (02/20/2022 12:13 PM CDT) [facility] Method Time Signature Bilirubin, Total, S [...] M.D. LAB BLOOD ADD-ON Performing Organization Address City/[facility]/ZIP Code Phon e Number [facility] - [address] (ABNORMAL) Hemoglobin (02/20/2022 12:13 PM CDT) P athologist Signature Hemoglobin 8.8 (L) 13.2 - 16.6 02/20/2022 DTL g/dL 12:56 PM CDT Specimen Anatomical Collection Method Collection Time Receive d Time (Source) Location / / Volume Laterality Blood (Blood, 02/20/2022 12:13 02/20/2022 Venous) PM CDT 12:43 PM CDT Nura David IV, M.D. LAB BLOOD ADD-ON Performing Organization Address [facility] Phon e Number [facility] - [address] (ABNORMAL) Glucose, POCT (02/20/2022 9:23 AM CDT) [...] Provider LAB POCT ORDERABLES-MANUAL Performing Organization Address City/[facility] Phon e Number POC [facility] [address] [place] [address] [place] [address] (ABNORMAL) Basic Metabolic Panel (02/20/2022 3:30 [...] 02/20/2022 DTL Black/ mL/min/BSA 4:50 AM CDT Ghanaian Comment: ----ADDITIONAL INFORMATION---- Estimated GFR calculated using [...] Address City/State/ZIP Code Phon e Number [facility] - [address] [place], [place] [address] [place] [address] [facility] [address] (ABNORMAL) CBC without Differential (02/20/2022 3:30 AM CDT) [facility] gist Method Time Signature Hemoglobin 8.1 [...] Address City/State/ZIP Code Phon e Number [facility] - [address] [place] [address] [place] [address] [facility] 200 [facility] Transfuse Red Blood Cells : (02/19/2022 9:29 [...] Address City/State/ZIP Code Phon e Number POC [facility] [address] [place] [address] [place] [address] [place] [facility] [address] (ABNORMAL) Glucose, POCT [...] Provider LAB POCT ORDERABLES-MANUAL Performing Organization Address City/[facility]/ZIP [facility] Phon e Number [facility] [address] [place] [address] [place] [address] [place] [facility] [address] (ABNORMAL) Hemoglobin (02/19/2022 [...] City/State/ZIP Code Phon e Number [facility] - [address] [place], [place] [address] [place] [address] [facility] [address] Type and Screen (with [...] TEST ORDER RAFFY Performing Organization Address City/State/ZIP [facility] Phon e Number [facility] - [address] [place], [place] [address] [place] [address] [facility] [address] (ABNORMAL) Glucose, POCT (02/19/2022 [...] Provider LAB POCT ORDERABLES-MANUAL Performing Organization Address City/[facility]/ZIP [facility] Phon e Number POC [facility] [address] [place] [address] [place] [address] [facility] [address] (ABNORMAL) Hemoglobin (02/19/2022 9:34 [...] Address City/State/ZIP Code Phon e Number [facility] - [address] [place], [place] [address] [place] [address] [facility] [address] [facility] (ABNORMAL) Glucose, POCT (02/19/2022 8:06 AM CDT) [...] Provider LAB POCT ORDERABLES-MANUAL Performing Organization Address City/[facility]/ZIP Code Phon e Number POC [facility] [address] [place] [address] [place] [address] [place] [facility] 200 [facility] (ABNORMAL) CBC without Differential (02/19/2022 3:33 AM [...] Address City/State/ZIP Code Phon e Number [facility] - [address] [place], [place] [address] [place] [address] [facility] [address] (ABNORMAL) Basic Metabolic Panel [...] 02/19/2022 DTL Black/ mL/min/BSA 4:30 AM CDT Ghanaian Comment: ----ADDITIONAL INFORMATION---- Estimated GFR calculated using [...] M.D. LAB BLOOD ADD-ON Performing Organization Address City/[facility] Phon e Number [facility] - [address] [place], [place] [address] [place] [address] [facility] [address] [facility] (ABNORMAL) Glucose, POCT (02/19/2022 1:44 AM CDT) [...] Provider LAB POCT ORDERABLES-MANUAL Performing Organization Address [facility] Phon e Number POC [facility] [address] [place] [address] [facility] [place] [address] [place] [facility] [address] (ABNORMAL) Glucose, POCT (02/18/2022 5:14 PM CDT) [...] Provider LAB POCT ORDERABLES-MANUAL Performing Organization Address City/[facility]/ZIP Code Phon e Number POC [facility] SERVICES [address] [place] [address] PCLX [facility] [place] [address] [place] P[place] 200 [facility] ECG 12 Lead (02/18/2022 1:25 PM CDT) P athologist Signature Ventricular Rate 69 BPM MUSE ECG/Min NC Interval 168 ms MUSE QRSD Interval 102 ms MUSE QT Interval 454 ms MUSE QTC Interval 486 ms MUSE P Morton 71 degrees MUSE R Morton -8 degrees MUSE T Wave Morton 97 degrees MUSE Specimen Anatomical Collection Method [...] Reece M.D. ECG ORDERABLES Performing Organization Address City/[facility]/ZIP Code Phon e Number MUSE MUSE NA [...] Address City/State/ZIP Code Phon e Number POC [facility] LAB SERVICES [address] [place] [address] PCLX [facility] [place] [address] [place] P[place] [address] Abdomen and/or [...] Component Value Ref Test Analysis Performed At [facility] gist Range Method Time Signature (A) 02/20/2022 DTL [...] that is no t available. David Sevilla, BChano., B.A.O. LAB SURG PATH SHERRI FLORES Performing Organization Address City/State/ZIP Code Phon e Number [facility] - [address] [place], [place] [address] [place] [address] Laboratories-[facility] [address] Glucose, POCT (02/18/2022 7:25 [...] Address City/State/ZIP Code Phon e Number POC [facility] SERVICES [address] [place] [address] PCLX [facility] [place] [address] [place] P[place] [address] documented in this encounter Visit Diagnoses Diagnosis Malignant Neoplasm Of Bladder (HCC) - Pr imary Mass Bladder Malignant Neoplasm Of Bladder (HCC) Retention Urinary Retention Urinary Malignant Neoplasm Of Bladder (HCC) [...] Continuous, Starting on Fri02/21/22 at 0000 New 02/20/2022 11:23 PM CDT 75 mL/hr 75 [...] XL) 1416 (Given - Provider: Josephine Sánchez RJluisN.) 0881 (Given - Provider: Maira D Spencer RJluisN.) 0742 (Gi austyn - Provider: Shelley Baker RJluisN.) 300 mg, oral, Daily, First dose on Fri at 0900, Swallow whole. Do NOT crush, chew, or split tablet. diazePAM tablet 2 mg (VALIUM) (COMPLETED) 0408 (Given - Provider: Kwesi Mortensen RGuy) 2 mg, oral, Once, On Fri02/20/22 at [...] Spencer R.N.)2128 (Given - Provider: Riley Paiz RJluisNJluis) 0624 (Given - Provider: Riley Paiz RJluisNJluis)1314 (Given - Provider: Shelley Baker R.N.) 5,000 Units, subcutaneous, Every 8 hours scheduled, First dose on Fri02/20/22 at 1400 hydroxyurea capsule 1,500 mg (HYDREA) 0905 (Given - Pr ovider: Austen Barry R.N.) 0852 (Given - Provider: Maria D Spencer RGuy) 1,500 mg, oral, User Specified (Once per [...] (PROTONIX) 0647 (Given - Provider: Kwesi Mortensen RJluisN.) 0736 (Given - Provider: [place] RJluisN.) 0624 (Given - Provider: Riley Paiz RJluisNJluis) 40 mg, oral, Daily before breakfast, Fir st dose on Fri02/20/22 at 0700, pantoprazole 40 mg oral daily was interchanged for omeprazole 20 or 40 mg oral daily Swallow whole. Do NOT crush, chew, or split tablet. sennosides-docusate sodium 8.6-50 mg per tablet 1 tabl et (SENOKOT-S) 0905 (Given - Provider: Gibran LopezN.)2038 (Given - Provider: Josephine Sánchez R.N.) 0849 (Given - Provider: Maria D Spencer RJluisNJluis)2127 (Not Given - Provider: Riley Paiz R.NJluis - Reason: Patient/family refused) 0742 (Given - [...] Not Given - Provider: Maria D García R.NJluis - Reason: Other)2039 (Given - Provider: Gibran HelmsNJluis) 0900 (Not Given - Provider: Maria D washington R.NJlius - Reason: Order parameters not met)2134 (Given - Provider: Riley Paiz R.N.) 3 mL, intravenous, Every 12 hours schedu led, First dose on Fri02/18/22 at 2100, Preprocedure (RAD), Peripheral Intravenous Catheter and Rapid Infusion Catheter, when no infusion to maintain patency sodium chloride 0.9 % injection 3 mL (CANCELED) 0912 ( Not Given - Provider: Maria D García RJluisNJluis - Reason: Other)2038 (Given - Provider: Josephine Sánchez R.N.) 1034 (Not Given - Provider: Maria D washington RJluisNJluis - Reason: Order parameters not met)8 (Given - Provider: Riley Paiz R.N.) 3 [...] 0206 (Given - Provide r: Kwesi Mortensen RGuy)1416 (Given - Provider: Josephine Sánchez R.N.) 2128 (Given - Provider: Riley Paiz RJluisNJluis) 1856 (Given - Provider: Shelley Moreno lt R.NJluis) 20 mg, oral, 2 times daily PRN, [...] are ineffective, Starting on Fri02/18/22 at 1318 documented in this encounter Additional Health Concerns Infection Onset Date Last Indicated Resolved Time COVID19 Pending 02/20/2022 02/20/2022 02/20/2022 8:04 PM CDT documented as of this encounter Care Teams Staff Home Therapy Rn Relationship Specialty Start Date End Date Elsewhere, Pcp PCP - General Internal Medicine 01/14/22 documented as of this encounter
--- OUTSIDE RECORDS SUMMARY | 2022-09-20 14:18 | XMS_ITS | Encounter Summary ---
:1935 Author Organization [facility] Address [address] [place] [address] Care Team Providers Name Role Phone Elsewhere, Pcp Primary Care Provider Unavailable Encounter Details Date Type Department Care Team Description 02/25/2022 Clinical Communication Department of Urology Provider, Unknown in [place], [place] [address] [place] [address] Social History Tobacco Use Types Packs/Day Years [...] you attend episcopalian or Patient refused 2021 oriental orthodox services? [...] Date Recorded Male 09/10/2018 8:41 AM SUPERVISOR FELTING documented as of this encounter Miscellaneous Notes [...] PYELOGRAM Malignant Neoplasm Of 10/10 10:25 AM SUPERVISOR FELTING Bladder (HCC) ENDOPYELOTOMY RETROGRADE Malignant Neoplasm Of 1 12/11/2021 10:25 AM SUPERVISOR FELTING Bladder (HCC) CYSTOSCOPY WITH Malignant Neoplasm Of 10/10/2022 10:25 AM SUPERVISOR FELTING TRANSURETHRAL RESECTION Bladder (HCC) LESION BLADDER documented as of this encounter Visit Diagnoses Not on filedocumented in this encounter Care Teams Sanforizing Machine Operator Relationship Specialty Start Date End Date Elsewhere, Pcp PCP - General Internal Medicine 01/14/22 documented as of this encounter
--- OUTSIDE RECORDS SUMMARY | 2022-09-20 14:18 | XMS_ITS | Encounter Summary ---
:1935 Author Organization [facility] Address [address] [place] [address] Care Team Providers Name Role Phone Elsewhere, Pcp Primary Care Provider Unavailable Reason for Visit Reason Comments Triage Encounter Details Date Type Department Care Team Description 02/15/2022 Clinical Communication Department of Pipelines Laborer, [facility] Cardiovascular Medicine Ashtyn Kumar in [facility] potato chip cooker machine [address] [place] [address] Social History Tobacco Use Types Packs/Day [...] you attend congregation or Patient refused 2021 restorationism services? Do [...] at Date Recorded Male 09/10/2018 8:41 AM UNIT TRUST MANAGER documented as of this encounter Miscellaneous Notes Telephone Encounter - Citlalli Marin - 02/15/2022 2:22 PM CDT Triage/Record Review ?? Internal/external: URO surg, [place], [id number] ?? Goal or summary: Schedule in CV ?? Requested date: February ?? Additional comments: Please Review documented in this encounter Plan of Treatment Upcoming Encounters Date Type Specialty Care Team Description 10/10/2022 Hospital Encounter Albert Waller M.D. [address] [place] [phone] (Wo rk) 10/10/2022 Surgery Albert Waller Palliati ve RETROGRADE M.D. PYELOGRAM- possible [address] LAZO antegrade ureteroscopy, JAIMEE Eason ureteral stent placement [id number] (Wo rk) Scheduled Procedures Name Priority Associated Diagnoses Date/Time RETROGRADE PYELOGRAM Malignant Neoplasm Of 10/10 10:25 AM UNIT TRUST MANAGER Bladder (HCC) ENDOPYELOTOMY RETROGRADE Malignant Neoplasm Of 1 12/11/2021 10:25 AM UNIT TRUST MANAGER Bladder (HCC) CYSTOSCOPY WITH Malignant Neoplasm Of 10/10/2022 10:25 AM UNIT TRUST MANAGER TRANSURETHRAL RESECTION Bladder (HCC) LESION BLADDER documented as of this encounter Visit Diagnoses Not on filedocumented in this encounter Additional Health Concerns Infection Onset Date Last Indicated Resolved Time COVID19 Pending 02/15/2022 02/15/2022 02/15/2022 10:28 PM CDT COVID19 Pending 02/20/2022 02/20/2022 02/20/2022 8:04 PM CDT documented as of this encounter Care Teams Machine Technician Relationship Specialty Start Date End Date Elsewhere, Pcp PCP - General Internal Medicine 01/14/22 documented as of this encounter
--- OUTSIDE RECORDS SUMMARY | 2022-09-20 14:18 | XMS_ITS | Encounter Summary ---
:1935 Author Organization [facility] Address [address] [place] [address] Care Team Providers Name Role Phone Elsewhere, Pcp Primary Care Provider Unavailable Encounter Details Date Type Department Care Team Description 02/14/2022 Clinical Communication Department of Urology Lisbeth Nguyen in [facility] [phone] [address] [facility] ([place]) [place] [address] Social History Tobacco Use Types Packs/Day Years [...] you attend quaker or Patient refused 2021 cheondoism services? Do [...] at Date Recorded Male 09/10/2018 8:41 AM PRESS ASSISTANT AND FEEDER documented as of this encounter Plan of [...] PYELOGRAM Malignant Neoplasm Of 10/10 10:25 AM PRESS ASSISTANT AND FEEDER Bladder (HCC) ENDOPYELOTOMY RETROGRADE Malignant Neoplasm Of 1 12/11/2021 10:25 AM PRESS ASSISTANT AND FEEDER Bladder (HCC) CYSTOSCOPY WITH Malignant Neoplasm Of 10/10/2022 10:25 AM PRESS ASSISTANT AND FEEDER TRANSURETHRAL RESECTION Bladder (HCC) LESION BLADDER documented as of this encounter Visit Diagnoses Not on filedocumented in this encounter Care Teams Auto Body Man Relationship Specialty Start Date End Date Elsewhere, Pcp PCP - General Internal Medicine 01/14/22 documented as of this encounter
--- OUTSIDE RECORDS SUMMARY | 2022-09-20 14:18 | XMS_ITS | Encounter Summary ---
:1935 Author Organization [facility] Address [address] [place] [address] Care Team Providers Name Role Phone Elsewhere, Pcp Primary Care Provider Unavailable Reason for Referral Outpatient (Routine) - Closed Specialty Diagnoses / Procedures Referred By Contact Refer red To Contact Radiology Diagnoses Hydronephrosis David Day M.B., [facility] Procedures IR Nephrostomy Tube Placement Left B.Ch., B.A.O. [address] [place], [place] [phone] Referral ID Status Reason Start Date Expiration Date Visits Requ ested Visits Authorized [id number] Closed 02/12/2022 02/12/2023 1 1 Reason for Visit Outpatient (Routine) - Closed Specialty Diagnoses / Procedures Referred By Contact Refer red To Contact Radiology Diagnoses Hydronephrosis David Day M.B., [facility] Procedures IR Nephrostomy Tube Placement Left B.Ch., B.A.O. [address] [place], [place] [address] Referral ID Status Reason Start Date Expiration Date Visits Requ ested Visits Authorized [id number] Closed 02/12/2022 02/12/2023 1 1 Encounter Details Date Type Department Care Team Description 02/18/2022 Hospital Encounter Department of [place] Day M.B., B.Ch., B.A.O. [address] [place] [phone] Hydronephrosis Radiology in Dannielle Gonsalves M.D. [address] [place] [phone] [place], [place] Saeid Stanton M.D. [address] [place] [phone] [address] [place] [address] Social History Tobacco Use Types [...] you attend voodoo or Patient refused 2021 baptist services? Do [...] at Date Recorded Male 09/10/2018 8:41 AM INFANT CAREGIVER documented as of this encounter Last Filed [...] As expected PRIMARY PROCEDURALIST Dr. Dannielle Gonsalves ([id number]) ASSISTANTS Dr. Stanton ([id number]) COMPLICATIONS None. DRAINS Left nephrostomy tube 10F [...] PYELOGRAM Malignant Neoplasm Of 10/10 10:25 AM INFANT CAREGIVER Bladder (HCC) ENDOPYELOTOMY RETROGRADE Malignant Neoplasm Of 1 12/11/2021 10:25 AM INFANT CAREGIVER Bladder (HCC) CYSTOSCOPY WITH Malignant Neoplasm Of 10/10/2022 10:25 AM INFANT CAREGIVER TRANSURETHRAL RESECTION Bladder (HCC) LESION BLADDER documented [...] Fungal Culture, Routine (02/18/2022 10:42 AM CDT) [facility] [employer] Method Time Signature Fungal No growth 03/14/2022 DTL Culture, after 24 1:01 PM CDT Routine days of incubation. Specimen Anatomical Collection Method Collection Time Receive d Time (Source) Location / / Volume Laterality Fluid (Kidney, 02/18/2022 10:42 2 Left) AM CDT 12:34 PM CDT Comment: Specimen Source Site: Fluid David Sevilla, Rae.Ch., B.A.O. LAB MICROBIOLOGY - GENERAL ORDERABLES Performing Organization Address City/[facility] Phon e Number [facility] - [address] [place], [place] [address] [facility] [place], [place] [address] [place] [address] Bacterial Culture, Anaerobic + Susc (02/18/2022 10:42 AM CDT) [facility] [employer] Method Time Signature Bacterial No growth 03/04/2022 DTL Culture, after 14 11:37 AM CDT Anaerobic + days of Susc incubation. Specimen Anatomical Collection Method Collection Time Receive d Time (Source) Location / / Volume Laterality Fluid (Kidney, 02/18/2022 10:42 2 Left) AM CDT 12:34 PM CDT Comment: Specimen Source Site: Fluid David Sevilla, Rae.Ch., B.A.O. LAB MICROBIOLOGY - GENERAL ORDERABLES Performing Organization Address City/[facility]/ZIP Code Phon e Number [facility] - [address] [place], [place] [address] [place] [address] Gram Stain (02/18/2022 10:42 AM CDT) [facility] Method Time Signature Gram Stain No organisms 02/18/2022 DTL seen. 2:40 PM CDT Specimen Anatomical Collection Method Collection Time Receive d Time (Source) Location / / Volume Laterality Fluid (Kidney, 02/18/2022 10:42 2 Left) AM CDT 12:34 PM CDT Comment: Specimen Source Site: Fluid David Sevilla B.Ch., B.A.O. LAB MICROBIOLOGY - GENERAL ORDERABLES Performing Organization Address City/[facility]/ZIP Code Phon e Number [facility] - [address] Bacterial Culture, Aerobic + Susc (02/18/2022 10:42 AM CDT) [facility] gist Method Time Signature Bacterial No growth 02/23/2022 DTL Culture, after 5 8:30 AM CDT Aerobic + Susc days of incubation. Specimen Anatomical Collection Method Collection Time Receive d Time (Source) Location / / Volume Laterality Fluid (Kidney, 02/18/2022 10:42 2 Left) AM CDT 12:34 PM CDT Comment: Specimen Source Site: Fluid David Sevilla, Delia, B.A.O. LAB MICROBIOLOGY - GENERAL ORDERABLES Performing Organization Address [facility] Phon e Number [facility] - [address] [place] [address] [place] [address] documented in this encounter Visit Diagnoses Diagnosis [...] (RAD) documented in this encounter Care Teams Tribal Council Member Relationship Specialty Start Date End Date Elsewhere, Pcp PCP - General Internal Medicine 01/14/22 documented as of this encounter
--- OUTSIDE RECORDS SUMMARY | 2022-09-20 14:18 | XMS_ITS | Encounter Summary ---
:1935 Author Organization [facility] Address [address] [place] [address] Care Team Providers Name Role Phone Elsewhere, Pcp Primary Care Provider Unavailable Reason for Referral Outpatient (Routine) - Closed Specialty Diagnoses / Procedures Referred By Contact Refer red To Contact Radiation Oncology Diagnoses Malignant Neoplasm Of Bladder (HCC) Cori Reece M.D. [facility] [address] [place] [phone] Referral ID Status Reason Start Date Expiration Date Visits Requ ested Visits Authorized [id number] Closed 02/26/2022 02/26/2023 1 1 Encounter Details Date Type Department Care Team Description 02/26/2022 Orders Only Department of Urology Cori Reece, Annamaria guzman Urinary (Primary Dx); in Ashtyn Batista Malignant Neoplasm Of Bladder (HCC) [address] [place] [phone] Social History Tobacco Use Types Packs/Day Years [...] you attend yazdanism or Patient refused 2021 pentecostal services? Do you belong to any clubs or No 05/17/2022 organizations such as yazdanism groups, unions, fraEdamam or athletic groups, or school groups? 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
--- OUTSIDE RECORDS SUMMARY | 2022-09-20 14:18 | XMS_ITS | Encounter Summary ---
:1935 Author Organization [facility] Address [address] [place] [address] Care Team Providers Name Role Phone Elsewhere, Pcp Primary Care Provider Unavailable Encounter Details Date Type Department Care Team Description 02/15/2022 Hospital Encounter Department of David Day Hydron ephrosis; Laboratory Medicine in Roel Heredia, B.Ch., Ma Bladder [place], [facility] a B.A.O. [address] [place] [address] [address] [place] [phone] [phone] Social History Tobacco Use Types Packs/Day Years [...] you attend gnosticist or Patient refused 2021 pentecostalism services? Do [...] at Date Recorded Male 09/10/2018 8:41 AM CHECKERER HAND documented as of this encounter Medications [...] PYELOGRAM Malignant Neoplasm Of 10/10 10:25 AM CHECKERER HAND Bladder (HCC) ENDOPYELOTOMY RETROGRADE Malignant Neoplasm Of 1 12/11/2021 10:25 AM CHECKERER HAND Bladder (HCC) CYSTOSCOPY WITH Malignant Neoplasm Of 10/10/2022 10:25 AM CHECKERER HAND TRANSURETHRAL RESECTION Bladder (HCC) LESION BLADDER documented as of this encounter Procedures Procedure Name Priority Date/Time Associated Diagnosis Comme nts SARS CORONAVIRUS-2 Routine 02/15/2022 9:22 AM Hydronephr osis Results for this RNA, V CDT Mass Bladder procedure are i n the results section. documented in this encounter Results SARS Coronavirus-2 RNA, V Asymptomatic (02/15/2022 9:22 AM CDT) [facility] Method Time Signature SARS-CoV-2 Swab, 02/15/2022 [...] pe rformed using the Aptima SARS-CoV-2 assay ([employer] on the Orthomimeticss tem under emergency use authorization (EUA) by the U.S. Food and Drug Administ ration. Fact sheets for this EUA assay can be fo und at the following links: For Healthcare Providers: https://www.fd a.gov/media/346229/download For Patients: https://www.fda.gov/media/ 368916/download Specimen Anatomical Collection Method Collection Time Receive d Time (Source) Location / / Volume Laterality Varies 02/15/2022 9:22 AM 3:08 (Nasopharynx) CDT PM CDT David Sevilla, BChano., B.A.O. LAB MICROBIOLOGY - GENERAL ORDERABLES Performing Organization Address City/State/ZIP Code Phon e Number [facility]- [address] [place] [address] [place] [address] System in [place] [address] [place] [address] documented in this encounter Visit Diagnoses Diagnosis Hydronephrosis Mass Bladder Malignant Neoplasm Of Bladder (HCC) documented in this encounter Additional Health Concerns Infection Onset Date Last Indicated Resolved Time COVID19 Pending 02/15/2022 02/15/2022 02/15/2022 10:28 PM CDT documented as of this encounter Care Teams Recovery Agent Relationship Specialty Start Date End Date Elsewhere, Pcp PCP - General Internal Medicine 01/14/22 documented as of this encounter
--- OUTSIDE RECORDS SUMMARY | 2022-09-20 14:18 | XMS_ITS | Encounter Summary ---
:1935 Author Organization [facility] Address [address] [place] [address] Care Team Providers Name Role Phone Elsewhere, Pcp Primary Care Provider Unavailable Encounter Details Date Type Department Care Team Description 02/15/2022 Clinical Communication Department of Urology David Day, in [facility] Juan., B.Ch., [place] B.A.O. [address] [facility] [address] [place] [phone] Social History Tobacco Use Types Packs/Day Years [...] you attend quaker or Patient refused 2021 yarsanism services? Do [...] Date Recorded Male 09/10/2018 8:41 AM APPLICATION TESTER documented as of this encounter Miscellaneous Notes Telephone Encounter - David Day M.B., Delia, B.A.O. - 02/15/2022 2:01 PM CDT Spoke with the daughter over the phone. Patient has seen his local welder production line gas today and he clearedhim for general anesthesia. Informed the patient and his family that if he wants to have the procedure TURBT to be done here at [facility] he will still require to have clearance [...] for Friday. Desiree can be reached at [phone]. documented in this encounter Plan of Treatment Upcoming Encounters Date Type Specialty Care Team Description 10/10/2022 Hospital Encounter Albert Waller M.D. [address] [place] [phone] (Wo rk) 10/10/2022 Surgery Albert Waller Palliati ve RETROGRADE M.D. PYELOGRAM- possible [address] LAZO antegrade ureteroscopy, JAIMEE Eason ureteral stent placement [id number] (Wo rk) Scheduled Procedures Name Priority Associated Diagnoses Date/Time RETROGRADE PYELOGRAM Malignant Neoplasm Of 10/10 10:25 AM APPLICATION TESTER Bladder (HCC) ENDOPYELOTOMY RETROGRADE Malignant Neoplasm Of 1 12/11/2021 10:25 AM APPLICATION TESTER Bladder (HCC) CYSTOSCOPY WITH Malignant Neoplasm Of 10/10/2022 10:25 AM APPLICATION TESTER TRANSURETHRAL RESECTION Bladder (HCC) LESION BLADDER documented as of this encounter Visit Diagnoses Diagnosis Hematuria - Primary Malignant Neoplasm Of Bladder (HCC) documented in this encounter Additional Health Concerns Infection Onset Date Last Indicated Resolved Time COVID19 Pending 02/15/2022 02/15/2022 02/15/2022 10:28 PM CDT COVID19 Pending 02/20/2022 02/20/2022 02/20/2022 8:04 PM CDT documented as of this encounter Care Teams Heat Set Operator Relationship Specialty Start Date End Date Elsewhere, Pcp PCP - General Internal Medicine 01/14/22 documented as of this encounter
--- OUTSIDE RECORDS SUMMARY | 2022-09-20 14:19 | XMS_ITS | Encounter Summary ---
:1935 Author Organization [facility] Address [address] [place] [address] Care Team Providers Name Role Phone Unavailable Primary Care Provider Unavailable Reason for Referral Outpatient (Routine) - Closed Specialty Diagnoses / Procedures Referred By Contact Refer red To Contact Dermatology Aashish Pandey M.D . [address] [address] Referral ID Status Reason Start Date Expiration Date Visits Requ ested Visits Authorized [id number] Closed 10/04/2019 10/03/2020 1 1 Scheduling Instructions 915 am recheck lesion R CARRIER Reason for Visit Reason Comments Actinic Keratosis Recheck Outpatient (Routine) - Closed Specialty Diagnoses / Procedures Referred By Contact Refer red To Contact Dermatology [facility] . [facility] [address] [address] Referral ID Status Reason Start Date Expiration Date Visits Requ ested Visits Authorized [id number] Closed 08/03/2019 08/02/2020 1 1 Encounter Details Date Type Department Care Team Description 10/04/2019 Office Visit Department of Aashish Pandey Nevi Multi ple (Primary Dx); Dermatology in [place] Keratosis Actinic; [address] Keratosis Seborrheic; [address] [place], [place] Cancer Skin Squamous [place] [phone] Social History Tobacco Use Types Packs/Day Years [...] you attend sikhism or Patient refused 2021 scientology services? Do you belong to any clubs or No 05/17/2022 organizations such as sikhism groups, unions, fraDevelopIntelligence or athletic groups, or school groups? How [...] at Date Recorded Male 09/10/2018 8:41 AM PAPER CARRIER documented as of this encounter Progress Notes [...] surgery on 07/27/[address] Juarez at [facility]. He denies a personal or family history for melanoma. The patient has no other concerns today. MEDICAL HISTORY 1. 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 Hare??at [facility] on 10/27/17 2. Squamous cell carcinoma [...] surgery on 07/27/[address] Juarez at [facility] 6. Negative for melanoma FAMILY HISTORY Negative for melanoma OBJECTIVE PHYSICAL EXAMINATION General: Awake, alert, in no acute distress, and with appropriate affect. Skin: Examination of the face and upper extremities reveals actinic keratoses, including the right methodist x2, right cheek x2, right ear antihelix [...] a total of 20 lesion(s) with two 50-53-pyerte freeze-thaw cycles of liquid nitrogen cryoth erapy. [...] Electronically Signed: cookie Kelly. 10/04/2019. 9:59 AM PAPER CARRIER. Aashish Dubon M.D., personally performed the services described in this documentation. All medical record entries made by the scribe were at my direction and in my presence. I have reviewed the chart and discharge instructions (if applicable) and agree that the record reflects my personal performance and is accurate and complete. Aashish Pandey M.D. . 10/04/2019. 10:17 AM PAPER CARRIER. R CARRIER documented in this encounter Plan of Treatment [...] PYELOGRAM Malignant Neoplasm Of 10/10 10:25 AM PAPER CARRIER Bladder (HCC) ENDOPYELOTOMY RETROGRADE Malignant Neoplasm Of 1 12/11/2021 10:25 AM PAPER CARRIER Bladder (HCC) CYSTOSCOPY WITH Malignant Neoplasm Of 10/10/2022 10:25 AM PAPER CARRIER TRANSURETHRAL RESECTION Bladder (HCC) LESION BLADDER Scheduled Referrals Name Type Priority Associated Order Schedule Diagnoses Dermatology office Outpatient Referral Routine Ex pected: visit (clinic) 11/02/2019 (Approximate), Expires: 10/04/2022 documented as of this encounter Visit Diagnoses Diagnosis 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
--- OUTSIDE RECORDS SUMMARY | 2022-09-20 14:19 | XMS_ITS | Encounter Summary ---
:1935 Author Organization [facility] Address [address] [place] [address] Care Team Providers Name Role Phone Elsewhere, Pcp Primary Care Provider Unavailable Encounter Details Date Type Department Care Team Description 02/08/2022 Ancillary Procedure Department of David Day Neoplasm Radiology in M, Juan., B.Ch., Of Bladder ( HCC) [place], [place] B.A.O. [address] [facility] [address] [place] [phone] Social History Tobacco Use Types Packs/Day Years [...] you attend protestant or Patient refused 2021 moravian services? Do [...] Date Recorded Male 09/10/2018 8:41 AM CERTIFIED DIALYSIS TECHNICIAN documented as of this encounter Plan [...] PYELOGRAM Malignant Neoplasm Of 10/10 10:25 AM CERTIFIED DIALYSIS TECHNICIAN Bladder (HCC) ENDOPYELOTOMY RETROGRADE Malignant Neoplasm Of 1 12/11/2021 10:25 AM CERTIFIED DIALYSIS TECHNICIAN Bladder (HCC) CYSTOSCOPY WITH Malignant Neoplasm Of 10/10/2022 10:25 AM CERTIFIED DIALYSIS TECHNICIAN TRANSURETHRAL RESECTION Bladder (HCC) LESION BLADDER [...] (HCC) documented in this encounter Care Teams Industrial Aerial Installer Relationship Specialty Start Date End Date Elsewhere, Pcp PCP - General Internal Medicine 01/14/22 documented as of this encounter
--- OUTSIDE RECORDS SUMMARY | 2022-09-20 14:19 | XMS_ITS | Encounter Summary ---
:1935 Author Organization [facility] Address [address] [place] [address] Care Team Providers Name Role Phone Elsewhere, Pcp Primary Care Provider Unavailable Reason for Visit Reason Comments Abnormal Lab Encounter Details Date Type Department Care Team Description 01/14/2022 Emergency [facility] Samanta Barfield, Pablo colón (Primary Dx) Emergency Department M.D. [address] [place] [address] [address] [place] [phone] Social History Tobacco Use Types Packs/Day Years [...] you attend hoahaoism or Patient refused 2021 oriental orthodox services? [...] at Date Recorded Male 09/10/2018 8:41 AM MERCHANDISING INTERNSHIP documented as of this encounter Last [...] using a point of care test at [place]. Patient had an angiogram last Friday without [...] follow up with his primary provider in [place] where he can continue to have the [...] PYELOGRAM Malignant Neoplasm Of 10/10 10:25 AM MERCHANDISING INTERNSHIP Bladder (HCC) ENDOPYELOTOMY RETROGRADE Malignant Neoplasm Of 1 12/11/2021 10:25 AM MERCHANDISING INTERNSHIP Bladder (HCC) CYSTOSCOPY WITH Malignant Neoplasm Of 10/10/2022 10:25 AM MERCHANDISING INTERNSHIP TRANSURETHRAL RESECTION Bladder (HCC) LESION BLADDER documented [...] MUSE QTC Interval 470 ms MUSE R Liberty -8 degrees MUSE T Wave Liberty 111 degrees MUSE Specimen Anatomical Collection Method [...] Organization Address City/State/ZIP Code Phon e Number MATHEW CARMONA NA Lactate (01/14/2022 5:03 PM CDT) P [...] City/State/ZIP Code Phon e Number [facility] - [address] [place], [place] [address] [facility] [place] [address] [facility] [address] [facility] (ABNORMAL) CBC with Differential, Blood (01/14/2022 [...] M.D. LAB BLOOD ADD-ON Performing Organization Address City/State/[facility] Phon e Number [facility] - [address] [place], [place] [address] [place] [address] ST[place], [place] [address] [place] [address] Lipase (01/14/2022 5:03 PM CDT) P athologist Signature Lipase, S 17 13 - 60 U/L 01/14/2022 6:03 DTL PM CDT Specimen Anatomical Collection Method Collection Time Receive d Time (Source) Location / / Volume Laterality Blood (Blood, 01/14/2022 5:03 PM 01/15/20 22 5:37 Venous) CDT PM CDT Samanta Barfield M.D. LAB BLOOD ADD-ON Performing Organization Address City/State/[facility] Phon e Number [facility] - [address] [place], [place] [address] [facility] [address] (ABNORMAL) Hepatic Function Panel (01/14/2022 5:03 [...] City/State/ZIP Code Phon e Number [facility] - [address] [place] [address] [place] [address] [facility] [address] [facility] (ABNORMAL) Basic Metabolic Panel (01/14/2022 5:03 [...] CDT eGFR-Black/Afric 79 >=60 01/14/2022 DTL an Peruvian mL/min/BSA 6:09 PM CDT Comment: ----ADDITIONAL INFORMATION---- [...] City/State/ZIP Code Phon e Number [facility] - [address] [place] [address] [place] [address] [facility] 200 [facility] [place] ECG 12 Lead (01/14/2022 4:25 PM CDT) P athologist Signature Ventricular Rate 69 BPM MUSE ECG/Min CO Interval 238 ms MUSE QRSD Interval 102 ms MUSE QT Interval 428 ms MUSE QTC Interval 459 ms MUSE P Liberty 65 degrees MUSE R Liberty -3 degrees MUSE T Wave Liberty 83 degrees MUSE Specimen Anatomical Collection Method [...] injection documented in this encounter Care Teams Speech Communication Professor Relationship Specialty Start Date End Date Elsewhere, Pcp PCP - General Internal Medicine 01/14/22 documented as of this encounter
--- OUTSIDE RECORDS SUMMARY | 2022-09-20 14:19 | XMS_ITS | Encounter Summary ---
:1935 Author Organization [facility] Address [address] [place] [address] Care Team Providers Name Role Phone Elsewhere, Pcp Primary Care Provider Unavailable Reason for Referral Outpatient (Routine) - Closed Specialty Diagnoses / Procedures Referred By Contact Refer red To Contact Urology Diagnoses Malignant Neoplasm Of Bladder (HCC) Slava Edwards M.D. [facility] [address] [place] [address] Referral ID Status Reason Start Date Expiration Date Visits Requ ested Visits Authorized [id number] Closed 01/30/2022 01/30/2023 1 1 Encounter Details Date Type Department Care Team Description 01/30/2022 Community [facility] Slava Edwards ignant Neoplasm Of AND MIRTHA Pena M.D. Bladder (HCC) [address] [id number] [facility] (Primary Dx) [place] [address] [place], [place] [phone] [address] Social History Tobacco Use Types Packs/Day Years [...] you attend buddhist or Patient refused 2021 catholic services? Do you belong to any clubs or No 05/17/2022 organizations such as buddhist groups, unions, fraBenchling or athletic groups, or school groups? How [...] at Date Recorded Male 09/10/2018 8:41 AM TELEPATHIST documented as of this encounter Plan of Treatment Upcoming Encounters Date Type Specialty Care Team Description 10/10/2022 Hospital Encounter Albert Waller M.D. [address] [place] [phone] (Wo fermin) 10/10/2022 Surgery Albert Waller Palliati ve RETROGRADE M.D. PYELOGRAM- possible [address] LAZO antegrade ureteroscopy, JAIMEE Eason ureteral stent placement [id number] (Octavio christensen) Scheduled Procedures Name Priority Associated Diagnoses Date/Time RETROGRADE PYELOGRAM Malignant Neoplasm Of 10/10 10:25 AM TELEPATHIST Bladder (HCC) ENDOPYELOTOMY RETROGRADE Malignant Neoplasm Of 1 12/11/2021 10:25 AM TELEPATHIST Bladder (HCC) CYSTOSCOPY WITH Malignant Neoplasm Of 10/10/2022 10:25 AM TELEPATHIST TRANSURETHRAL RESECTION Bladder (HCC) LESION BLADDER Scheduled Referrals Name Type Priority Associated Diagnoses Order S [facility] Urology Referral Outpatient Referral Routine Malignant Neoplas m Of Expected: Bladder (HCC) 01/30/2022 (Approximate), Expires: 05/01/2023 documented as of this encounter Visit Diagnoses Diagnosis Malignant Neoplasm Of Bladder (HCC) - Pr imary Malignant Neoplasm Of Bladder (HCC) documented in this encounter Care Teams Bank Examiner Relationship Specialty Start Date End Date Elsewhere, Pcp PCP - General Internal Medicine 01/14/22 documented as of this encounter
--- OUTSIDE RECORDS SUMMARY | 2022-09-20 14:19 | XMS_ITS | Encounter Summary ---
:1935 Author Organization [facility] Address [address] [place] [address] Care Team Providers Name Role Phone Elsewhere, Pcp Primary Care Provider Unavailable Encounter Details Date Type Department Care Team Description 02/07/2022 Hospital Encounter Department of Laboratory Calin Day, Mass Bladder Medicine in [place], Juan., B.Ch., [place] B.A.O. [address] [place] [phone] Social History Tobacco Use Types Packs/Day Years [...] attend jehovah's witness or Patient refused 2021 caodaism services? Do [...] at Date Recorded Male 09/10/2018 8:41 AM EMS EDUCATOR documented as of this encounter Medications at [...] Albert Waller M.D. [address] [place] [phone] (Octavio christensen) 10/10/2022 Surgery Albert Waller Palliati ve RETROGRADE M.D. PYELOGRAM- possible [address] LAZO antegrade ureteroscopy, JAIMEE Eason ureteral stent placement [id number] (Octavio christensen) Scheduled Procedures Name Priority Associated Diagnoses Date/Time RETROGRADE PYELOGRAM Malignant Neoplasm Of 10/10 10:25 AM EMS EDUCATOR Bladder (HCC) ENDOPYELOTOMY RETROGRADE Malignant Neoplasm Of 1 12/11/2021 10:25 AM EMS EDUCATOR Bladder (HCC) CYSTOSCOPY WITH Malignant Neoplasm Of 10/10/2022 10:25 AM EMS EDUCATOR TRANSURETHRAL RESECTION Bladder (HCC) LESION BLADDER documented [...] logist Time Signature Urine Culture Mixed 02/08/2022 [facility] jonatan. (A) 11:51 AM CDT Specimen Anatomical Collection Method Collection Time Receive d Time (Source) Location / / Volume Laterality Urine (Urine, 02/07/2022 9:26 AM 02/08/20 3:07 Midstream) CDT PM CDT Comment: Specimen Source Site: Urine David Sevilla, B.Ch., B.A.O. LAB MICROBIOLOGY - GENERAL ORDERABLES Performing Organization Address City/State/ZIP Code Phon e Number [facility]- [address] [place] [address] [place] [address] [address] (ABNORMAL) Urinalysis with Microscopic: Urine, Midstream [...] 8.0 02/07/2022 10:56 AM CDT NPCL Specific [place] 1.020 1.001 - 1.035 02/07/2022 10:56 AM [...] Number [facility]- [address] [place], [place] [address] [facility] NPCL [facility] [place] [address] [facility] [address] [place] [address] [place] [address] documented in this encounter Visit Diagnoses Diagnosis Mass Bladder Malignant Neoplasm Of Bladder (HCC) documented in this encounter Care Teams [place] Relationship Specialty Start Date End Date Elsewhere, Pcp PCP - General Internal Medicine 01/14/22 documented as of this encounter
--- OUTSIDE RECORDS SUMMARY | 2022-09-20 14:19 | XMS_ITS | Encounter Summary ---
:1935 Author Organization [facility] Address [address] [place] [address] Care Team Providers Name Role Phone Elsewhere, Pcp Primary Care Provider Unavailable Reason for Referral MRI/CAT/PET Scan (Routine) - Closed Specialty Diagnoses / Procedures Referred By Contact Refer red To Contact Radiology Diagnoses Mass Bladder Jeanna Aguero M.B., [facility] Procedures CT Abdomen and/or Pelvis Biopsy CT Biopsy Other B.Ch., B.A.O. [address] [place] [address] Referral ID Status Reason Start Date Expiration Date Visits Requ ested Visits Authorized [id number] Closed 02/12/2022 02/12/2023 1 1 utpatient (Routine) - Closed Specialty Diagnoses / Procedures Referred By Contact Refer red To Contact Radiology Diagnoses Hydronephrosis Jeanna Aguero M.B., [facility] Procedures IR Nephrostomy Tube Placement Left B.Ch., B.A.O. [address] [place] [address] Referral ID Status Reason Start Date Expiration Date Visits Requ ested Visits Authorized [id number] Closed 02/12/2022 02/12/2023 1 1 Encounter Details Date Type Department Care Team Description 02/12/2022 Clinical Communication Department of Urology Jeanna Aguero, in Roel Batista, Delia, [place] B.A.O. [address] [facility] [address] [place] [phone] [phone] Social History Tobacco Use Types Packs/Day Years [...] you attend yazidism or Patient refused 2021 sikhism services? 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 [facility] [...] appointments to be done locally by his veterans' coordinator this week. They are aware that if [...] if possible. Their best callback number is: [phone] Thank you! documented in this encounter Plan [...] PYELOGRAM Malignant Neoplasm Of 10/10 10:25 AM REPLANTING MACHINE CREWMAN Bladder (HCC) ENDOPYELOTOMY RETROGRADE Malignant Neoplasm Of 1 12/11/2021 10:25 AM REPLANTING MACHINE CREWMAN Bladder (HCC) CYSTOSCOPY WITH Malignant Neoplasm Of 10/10/2022 10:25 AM REPLANTING MACHINE CREWMAN TRANSURETHRAL RESECTION Bladder (HCC) LESION BLADDER documented [...] Exchange in 12 weeks. EP Jeanna Sevilla, Delia, B.A.O. IMG IR PROCEDURES CT Abdomen and/or [...] left bladder mass biopsy. EP Jeanna Sevilla, BChano., B.A.O. IMG CT PROCEDURES documented in this encounter Visit Diagnoses Diagnosis Hydronephrosis - Primary Mass Bladder Hydronephrosis Malignant Neoplasm Of Bladder (HCC) - Pr imary Mass Bladder Retention Urinary Malignant Neoplasm Of Bladder (HCC) documented in this encounter Care Teams Lapel Padder Relationship Specialty Start Date End Date Elsewhere, Pcp PCP - General Internal Medicine 01/14/22 documented as of this encounter
--- OUTSIDE RECORDS SUMMARY | 2022-09-20 14:19 | XMS_ITS | Encounter Summary ---
:1935 Author Organization [facility] Address [address] [place] [address] Care Team Providers Name Role Phone Elsewhere, Pcp Primary Care Provider Unavailable Encounter Details Date Type Department Care Team Description 02/13/2022 Clinical Communication Department of Urology David Day, in [facility] Juan., B.Ch., [place] B.A.O. [address] [facility] [address] [place] [address] [phone] Social History Tobacco Use Types Packs/Day Years [...] you attend religious or Patient refused 2021 evangelical services? Do [...] at Date Recorded Male 09/10/2018 8:41 AM APPRENTICE TECHNICIAN documented as of this encounter Plan of Treatment Upcoming Encounters Date Type Specialty Care Team Description 10/10/2022 Hospital Encounter Albert Waller M.D. [address] [place] [phone] (Wo rk) 10/10/2022 Surgery Albert Waller Palliati ve RETROGRADE M.D. PYELOGRAM- possible [address] LAZO antegrade ureteroscopy, JAIMEE Eason ureteral stent placement [id number] (Wo rk) Scheduled Procedures Name Priority Associated Diagnoses Date/Time RETROGRADE PYELOGRAM Malignant Neoplasm Of 10/10 10:25 AM APPRENTICE TECHNICIAN Bladder (HCC) ENDOPYELOTOMY RETROGRADE Malignant Neoplasm Of 1 12/11/2021 10:25 AM APPRENTICE TECHNICIAN Bladder (HCC) CYSTOSCOPY WITH Malignant Neoplasm Of 10/10/2022 10:25 AM APPRENTICE TECHNICIAN TRANSURETHRAL RESECTION Bladder (HCC) LESION BLADDER documented as of this encounter Visit Diagnoses Diagnosis Hydronephrosis - Primary Malignant Neoplasm Of Bladder (HCC) documented in this encounter Care Teams Prototype Fabricator Relationship Specialty Start Date End Date Elsewhere, Pcp PCP - General Internal Medicine 01/14/22 documented as of this encounter
--- OUTSIDE RECORDS SUMMARY | 2022-09-20 14:19 | XMS_ITS | Encounter Summary ---
:1935 Author Organization [facility] Address [address] [place] [address] Care Team Providers Name Role Phone Elsewhere, Pcp Primary Care Provider Unavailable Encounter Details Date Type Department Care Team Description 02/07/2022 Hospital Encounter Department of Laboratory Calin Day, Mass Bladder Medicine in [place], Juan., B.Ch., [place] B.A.O. [address] [place] [phone] Social History Tobacco Use Types Packs/Day Years [...] you attend episcopalian or Patient refused 2021 hindu services? Do [...] at Date Recorded Male 09/10/2018 8:41 AM CAR LOT ATTENDANT documented as of this encounter Medications at [...] Albert Waller M.D. [address] [place] [phone] (Octavio christensen) 10/10/2022 Surgery Albert Waller Palliati ve RETROGRADE M.D. PYELOGRAM- possible [address] LAZO antegrade ureteroscopy, JAIMEE Eason ureteral stent placement [id number] (Octavio christensen) Scheduled Procedures Name Priority Associated Diagnoses Date/Time RETROGRADE PYELOGRAM Malignant Neoplasm Of 10/10 10:25 AM CAR LOT ATTENDANT Bladder (HCC) ENDOPYELOTOMY RETROGRADE Malignant Neoplasm Of 1 12/11/2021 10:25 AM CAR LOT ATTENDANT Bladder (HCC) CYSTOSCOPY WITH Malignant Neoplasm Of 10/10/2022 10:25 AM CAR LOT ATTENDANT TRANSURETHRAL RESECTION Bladder (HCC) LESION BLADDER [...] Organization Address City/State/ZIP Code Phon e Number [facility]- [address] [place], [place] [address] [place] [address] [facility] [place] [address] [place] [address] [place] (ABNORMAL) Basic Metabolic Panel (02/07/2022 9:26 AM [...] CDT eGFR-Black/Afri 72 >=60 02/07/2022 NPRG can Indonesian mL/min/BSA 11:13 AM CDT Comment: ----ADDITIONAL INFORMATION---- [...] Organization Address City/State/ZIP Code Phon e Number [facility]- [address] [place], [place] [address] [place] [address] [place] [address] [facility] [address] Albumin (02/07/2022 [...] Organization Address City/State/ZIP Code Phon e Number [facility]- [address] [place], [place] [address] [place] [address] [facility] [place] [address] [facility] [address] (ABNORMAL) CBC with Differential, Blood (02/07/2022 9:26 AM CDT) [facility] Method Time Signature Hemoglobin 9.6 (L) 13.2 [...] Organization Address City/State/ZIP Code Phon e Number [facility]- [address] [place] [address] [place] [address] System in [address] documented in this encounter Visit Diagnoses Diagnosis Mass Bladder Malignant Neoplasm Of Bladder (HCC) documented in this encounter Care Teams Model Maker Firearms Relationship Specialty Start Date End Date Elsewhere, Pcp PCP - General Internal Medicine 01/14/22 documented as of this encounter
--- OUTSIDE RECORDS SUMMARY | 2022-09-20 14:19 | XMS_ITS | Encounter Summary ---
:1935 Author Organization [facility] Address [address] [place] [address] Care Team Providers Name Role Phone Elsewhere, Pcp Primary Care Provider Unavailable Encounter Details Date Type Department Care Team Description 01/30/2022 Clinical Communication Department of Urology David Day, in [facility] Juan., B.Ch., [place] B.A.O. [address] [facility] [address] [place] [phone] [phone] Social History Tobacco Use Types Packs/Day Years [...] you attend buddhism or Patient refused 2021 restorationism services? Do [...] at Date Recorded Male 09/10/2018 8:41 AM EDI DEVELOPER documented as of this encounter Plan [...] PYELOGRAM Malignant Neoplasm Of 10/10 10:25 AM EDI DEVELOPER Bladder (HCC) ENDOPYELOTOMY RETROGRADE Malignant Neoplasm Of 1 12/11/2021 10:25 AM EDI DEVELOPER Bladder (HCC) CYSTOSCOPY WITH Malignant Neoplasm Of 10/10/2022 10:25 AM EDI DEVELOPER TRANSURETHRAL RESECTION Bladder (HCC) LESION BLADDER documented as of this encounter Results (ABNORMAL) [...] Code Phon e Number [facility]- [address] [place], [place] [address] [address] [place] [address] [place] [address] [address] [facility] (ABNORMAL) Basic Metabolic Panel (02/07/2022 9:26 AM [...] CDT eGFR-Black/Afri 72 >=60 02/07/2022 NPRG can Malaysian mL/min/BSA 11:13 AM CDT Comment: ----ADDITIONAL INFORMATION---- [...] Code Phon e Number [facility]- [address] [place] [address] [address] [place] [address] Albumin (02/07/2022 9:26 AM CDT) P [...] Code Phon e Number [facility]- [address] [place] [address] 1 [facility] [place] [phone] (ABNORMAL) CBC with Differential, Blood (02/07/2022 [...] Code Phon e Number [facility]- [address] [place], [place] [phone] [place] [address] documented in this encounter Visit Diagnoses Diagnosis Mass Bladder - Primary Malignant Neoplasm Of Bladder (HCC) documented in this encounter Care Teams Risk Control Consultant Relationship Specialty Start Date End Date Elsewhere, Pcp PCP - General Internal Medicine 01/14/22 documented as of this encounter
--- OUTSIDE RECORDS SUMMARY | 2022-09-20 14:19 | XMS_ITS | Encounter Summary ---
:1935 Author Organization [facility] Address [address] [place] [address] Care Team Providers Name Role Phone Elsewhere, Pcp Primary Care Provider Unavailable Reason for Referral MRI/CAT/PET Scan (Routine) - Closed Specialty Diagnoses / Procedures Referred By Contact Refer red To Contact Radiology Diagnoses Malignant Neoplasm Of Bladder (HCC) David Day M.B., [facility] Procedures CT Urogram without and with IV Contrast B.Ch., B.A.O. [address] [place], [place] [address] Referral ID Status Reason Start Date Expiration Date Visits Requ ested Visits Authorized [id number] Closed 02/08/2022 02/08/2023 1 1 Reason for Visit MRI/CAT/PET Scan (Routine) - Closed Specialty Diagnoses / Procedures Referred By Contact Refer red To Contact Radiology Diagnoses Malignant Neoplasm Of Bladder (HCC) David Day M.B., [facility] Procedures CT Urogram without and with IV Contrast B.Ch., B.A.O. 200 [place], [place] [address] Referral ID Status Reason Start Date Expiration Date Visits Requ ested Visits Authorized [id number] Closed 02/08/2022 02/08/2023 1 1 Encounter Details Date Type Department Care Team Description 02/11/2022 Hospital Encounter Department of David Day Malign ant Neoplasm Radiology, Juan Bridges., B.Ch., Of [facility] in B.A.O. [place], [place] [address] [place] [address] [phone] Social History Tobacco Use Types Packs/Day Years [...] you attend jewish or Patient refused 2021 hoahaoism services? Do [...] Date Recorded Male 09/10/2018 8:41 AM QUALITY PROCESS LEAD documented as of this encounter Medications at [...] Albert Waller M.D. [address] [place] [phone] (Wo rk) 10/10/2022 Surgery Albert Waller Palliati ve RETROGRADE M.D. PYELOGRAM- possible [address] LAZO antegrade ureteroscopy, JAIMEE Eason ureteral stent placement [id number] (Wo rk) Scheduled Procedures Name Priority Associated Diagnoses Date/Time RETROGRADE PYELOGRAM Malignant Neoplasm Of 10/10 10:25 AM QUALITY PROCESS LEAD Bladder (HCC) ENDOPYELOTOMY RETROGRADE Malignant Neoplasm Of 1 12/11/2021 10:25 AM QUALITY PROCESS LEAD Bladder (HCC) CYSTOSCOPY WITH Malignant Neoplasm Of 10/10/2022 10:25 AM QUALITY PROCESS LEAD TRANSURETHRAL RESECTION Bladder (HCC) LESION BLADDER [...] Orders documented in this encounter Care Teams Printing Plate Maker Relationship Specialty Start Date End Date Elsewhere, Pcp PCP - General Internal Medicine 01/14/22 documented as of this encounter
--- OUTSIDE RECORDS SUMMARY | 2022-09-20 14:19 | XMS_ITS | Encounter Summary ---
:1935 Author Organization [facility] Address [address] [place] [address] Care Team Providers Name Role Phone Elsewhere, Pcp Primary Care Provider Unavailable Reason for Referral MRI/CAT/PET Scan (Routine) - Closed Specialty Diagnoses / Procedures Referred By Contact Refer red To Contact Radiology Diagnoses Malignant Neoplasm Of Bladder (HCC) David Day M.B., [facility] Procedures CT Urogram without and with IV Contrast B.Ch., B.A.O. 200 [place] [address] Referral ID Status Reason Start Date Expiration Date Visits Requ ested Visits Authorized [id number] Closed 02/08/2022 02/08/2023 1 1 Reason for Visit Appointment Request (Routine) - Closed Specialty Diagnoses / Procedures Referred By Contact Refer red To Contact Urology Diagnoses Mass Bladder Referral ID Status Reason Start Date Expiration Date Visits Requ ested Visits Authorized [id number] Closed 01/30/2022 01/30/2023 1 1 Encounter Details Date Type Department Care Team Description 02/08/2022 Comprehensive Visit Department of David Dya Neoplasm Urology in [place], Of Bladder (HCC ) [place], [place] B.Ch., B.A.O. 200 [facility] 200 [place] [phone] [phone] Social History Tobacco Use Types Packs/Day Years [...] you attend restorationist or Patient refused 2021 mormon services? Do you belong to any clubs or No 05/17/2022 organizations such as restorationist groups, unions, fraAl-[employer] or athletic groups, or school groups? How [...] Date Recorded Male 09/10/2018 8:41 AM QUALITY ASSURANCE ANALYST documented as of this encounter Consult [...] is currently being followed by his local ripening room operator and taking Lasix for diuresis. On December [...] Albert Waller M.D. [address] [place] [phone] (Wo fermin) 10/10/2022 Surgery Albert Waller Palliati ve RETROGRADE [place] PYELOGRAM- possible [address] LAZO antegrade ureteroscopy, JAIMEE Eason ureteral stent placement [id number] (Octavio christensen) Scheduled Procedures Name Priority Associated Diagnoses Date/Time RETROGRADE PYELOGRAM Malignant Neoplasm Of 10/10 10:25 AM QUALITY ASSURANCE ANALYST Bladder (HCC) ENDOPYELOTOMY RETROGRADE Malignant Neoplasm Of 1 12/11/2021 10:25 AM QUALITY ASSURANCE ANALYST Bladder (HCC) CYSTOSCOPY WITH Malignant Neoplasm Of 10/10/2022 10:25 AM QUALITY ASSURANCE ANALYST TRANSURETHRAL RESECTION Bladder (HCC) LESION BLADDER documented as of this encounter Results CT [...] findings may reflect mild congestive failure. David Sevilla BChano., B.A.O. IMG CT PROCEDURES documented in this encounter Visit Diagnoses Diagnosis Malignant Neoplasm Of Bladder (HCC) Malignant Neoplasm Of Bladder (HCC) Malignant Neoplasm Of Bladder (HCC) Malignant Neoplasm Of Bladder (HCC) documented in this encounter Care Teams Operations Program Manager Relationship Specialty Start Date End Date Elsewhere, Pcp PCP - General Internal Medicine 01/14/22 documented as of this encounter
--- OUTSIDE RECORDS SUMMARY | 2022-09-20 14:19 | XMS_ITS | Encounter Summary ---
:1935 Author Organization [facility] Address [address] [place] [address] Care Team Providers Name Role Phone Unavailable Primary Care Provider Unavailable Encounter Details Date Type Department Care Team Description 07/31/2020 Clinical Communication Department of Aashish Pandey, Dermatology in [place], [place] [address] [place] [phone] [phone] Social History Tobacco Use Types Packs/Day Years [...] you attend jew or Patient refused 2021 yazdanism services? 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 [place]: [phone] [place]: [phone] [place]: [phone] [place]: [phone] [place]: [phone] [place]: [phone] [facility]: [phone] [place], [place], or [place] clinics: [phone] [place]:[phone] [place]: [phone] Thank you for trusting your health care to [facility]. documented in this encounter Plan of Treatment Upcoming Encounters Date Type Specialty Care Team Description 10/10/2022 Hospital Encounter Albert Waller M.D. [address] [place] [phone] (Wo rk) 10/10/2022 Surgery Albert Waller Palliati ve RETROGRADE M.D. PYELOGRAM- possible [address] LAZO antegrade ureteroscopy, JAIMEE Eason ureteral stent placement [id number] (Wo rk) Scheduled Procedures Name Priority Associated Diagnoses Date/Time RETROGRADE PYELOGRAM Malignant Neoplasm Of 10/10 10:25 AM LITIGATION SPECIALIST Bladder (HCC) ENDOPYELOTOMY RETROGRADE Malignant Neoplasm Of 1 12/11/2021 10:25 AM LITIGATION SPECIALIST Bladder (HCC) CYSTOSCOPY WITH Malignant Neoplasm Of 10/10/2022 10:25 AM LITIGATION SPECIALIST TRANSURETHRAL RESECTION Bladder (HCC) LESION BLADDER documented as of this encounter Visit Diagnoses Not on filedocumented in this encounter
--- OUTSIDE RECORDS SUMMARY | 2022-09-20 14:19 | XMS_ITS | Encounter Summary ---
:1935 Author Organization [facility] Address [address] [place] [address] Care Team Providers Name Role Phone Unavailable Primary Care Provider Unavailable Reason for Visit Appointment Request (Routine) - Closed Specialty Diagnoses / Procedures Referred By Contact Refer red To Contact Nephrology and Slava Edwards Hypertension [place] [address] [place] [address] Referral ID Status Reason Start Date Expiration Date Visits Requ ested Visits Authorized [id number] Closed 08/03/2020 08/03/2021 1 1 Encounter Details Date Type Department Care Team Description 08/23/2020 External Outreach Division of Nida Castro on And Nephrology and Ross Chiu Jr., Chronic Kidn ey Hypertension in D.O. Disease Stage 1 To 4 [place], [place] [address] [facility] [address] [place] [address] [phone] Social History Tobacco Use Types Packs/Day Years [...] you attend denominational or Patient refused 2021 mormon services? Do [...] at Date Recorded Male 09/10/2018 8:41 AM LAST PICKER documented as of this encounter Progress Notes Ross Castro Jr., D.O. - 08/23/2020 4:00 PM CST NO show [place] CKD PICKER documented in this encounter Plan of Treatment Upcoming Encounters Date Type Specialty Care Team Description 10/10/2022 Hospital Encounter Albert Waller M.D. [address] [place] [phone] (Octavio christensen) 10/10/2022 Surgery Albert Waller Palliati ve RETROGRADE M.D. PYELOGRAM- possible [address] LAZO antegrade ureteroscopy, JAIMEE Eason ureteral stent placement [id number] (Wo fermin) Scheduled Procedures Name Priority Associated Diagnoses Date/Time RETROGRADE PYELOGRAM Malignant Neoplasm Of 10/10 10:25 AM LAST PICKER Bladder (HCC) ENDOPYELOTOMY RETROGRADE Malignant Neoplasm Of 1 12/11/2021 10:25 AM LAST PICKER Bladder (HCC) CYSTOSCOPY WITH Malignant Neoplasm Of 10/10/2022 10:25 AM LAST PICKER TRANSURETHRAL RESECTION Bladder (HCC) LESION BLADDER documented as of this encounter Visit Diagnoses Diagnosis Hypertension And Chronic Kidney Disease Stage 1 To 4 Malignant Neoplasm Of Bladder (HCC) documented in this encounter
--- OUTSIDE RECORDS SUMMARY | 2022-09-20 14:19 | XMS_ITS | Encounter Summary ---
:1935 Author Organization [facility] Address [address] [place] [address] Care Team Providers Name Role Phone Unavailable [...] you attend worship or Patient refused 2021 voodoo services? 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
--- OUTSIDE RECORDS SUMMARY | 2022-09-20 14:19 | XMS_ITS | Encounter Summary ---
:1935 Author Organization [facility] Address [address] [place] [address] Care Team Providers Name Role Phone Unavailable Primary Care Provider Unavailable Reason for Referral Outpatient (Routine) - Closed Specialty Diagnoses / Procedures Referred By Contact Refer red To Contact Dermatology Aashish Pandey M.D . [facility] Region [address] [place] [address] Referral ID Status Reason Start Date Expiration Date Visits Requ ested Visits Authorized [id number] Closed 08/03/2019 08/02/2020 1 1 Reason for Visit Reason Comments Follow-up Appointment Request (Routine) - Closed Specialty Diagnoses / Procedures Referred By Contact Refer red To Contact Dermatology Referral ID Status Reason Start Date Expiration Date Visits Requ ested Visits Authorized [id number] Closed 05/25/2019 05/24/2020 1 Encounter Details Date Type Department Care Team Description 08/03/2019 Office Visit Department of Aashish Pandey, Keratosis Actinic (Primary Dx); Dermatology in [place] Cancer Skin Squamous Cell Personal Histo [place], [place] [address] [place] [phone] Social History Tobacco Use Types Packs/Day Years [...] you attend buddhist or Patient refused 2021 sabianism services? Do you belong to any clubs or No 05/17/2022 organizations such as buddhist groups, unions, fraArithmatica or athletic groups, or school groups? 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 Juarez at [facility]. 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 The largest of his squamous cell carcinomas involving his left cheek was initially treated with CO2 laser in [place] and then Mohs surgery thereafter. He also [...] surgery by Dr. Hare??at [facility] on 10/27/17 2. Squamous cell carcinoma in [...] by Dr. Juarez at [facility] OBJECTIVE PHYSICAL EXAMINATION General: Awake, alert, in [...] a total of 29 lesion(s) with two [id number] freeze-thaw cycles of liquid nitrogen cryoth erapy. [...] by Dr. Juarez at [facility] No clinical evidence of local recurrence today. [...] Albert Waller M.D. [address] [place] [phone] (Wo rk) 10/10/2022 Surgery Albert Waller Palliati ve RETROGRADE M.D. PYELOGRAM- possible [address] LAZO antegrade ureteroscopy, [place], [place] ureteral stent placement [id number] (Wo rk) Scheduled Procedures Name Priority Associated Diagnoses Date/Time RETROGRADE PYELOGRAM Malignant Neoplasm Of 10/10 10:25 AM DEBT AND BUDGET COUNSELOR Bladder (HCC) ENDOPYELOTOMY RETROGRADE Malignant Neoplasm Of 1 12/11/2021 10:25 AM DEBT AND BUDGET COUNSELOR Bladder (HCC) CYSTOSCOPY WITH Malignant Neoplasm Of 10/10/2022 10:25 AM DEBT AND BUDGET COUNSELOR TRANSURETHRAL RESECTION Bladder (HCC) LESION BLADDER Scheduled Referrals Name Type Priority Associated Order Schedule Diagnoses Dermatology office Outpatient Referral Routine Ex pected: visit (clinic) 08/03/2019 (Approximate), Expires: 08/03/2022 documented as of this encounter Visit Diagnoses Diagnosis Keratosis Actinic - Primary Cancer Skin Squamous Cell Personal Histo ry Malignant Neoplasm Of Bladder (HCC) documented in this encounter
--- OUTSIDE RECORDS SUMMARY | 2022-09-20 14:19 | XMS_ITS | Encounter Summary ---
:1935 Author Organization [facility] Address [address] [place] [address] Care Team Providers Name Role Phone Unavailable [...] you attend catholic or Patient refused 2021 anabaptist services? 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
--- OUTSIDE RECORDS SUMMARY | 2022-09-20 14:19 | XMS_ITS | Encounter Summary ---
:1935 Author Organization [facility] Address [address] [place] [address] Care Team Providers Name Role Phone Unavailable Primary Care Provider Unavailable Reason for Referral Outpatient (Routine) - Closed Specialty Diagnoses / Procedures Referred By Contact Refer red To Contact Dermatology Aashish Pandey M.D . [facility] Region [address] [place] [phone] Referral ID Status Reason Start Date Expiration Date Visits Requ ested Visits Authorized Closed 05/01/2020 05/01/2021 1 1 Scheduling Instructions Return visit in 2-3 months. 30 minutes Reason for Visit Reason Comments Skin Check Encounter Details Date Type Department Care Team Description 05/01/2020 Office Visit Department of Aashish Pandey, Keratosis Actinic Dermatology in [place] (Primary Dx) [place], [place] [address] [phone] Social History Tobacco Use Types Packs/Day Years [...] you attend islam or Patient refused 2021 rastafari services? Do you belong to any clubs or No 05/17/2022 organizations such as islam groups, unions, fraCheers or athletic groups, or school groups? How [...] at Date Recorded Male 09/10/2018 8:41 AM INTRANET SUPPORT documented as of this encounter Progress Notes [...] surgery on 07/27/[address] Juarez at [facility] 6. Negative for melanoma FAMILY HISTORY [...] He also has 1 AK involving the [id number] dorsal finger and 1 involving the right [...] Albert Waller M.D. [address] [place] [phone] (Wo fermin) 10/10/2022 Surgery Albert Waller Palliati ve RETROGRADE M.D. PYELOGRAM- possible [address] LAZO antegrade ureteroscopy, JAIMEE Eason ureteral stent placement [id number] (Wo fermin) Scheduled Procedures Name Priority Associated Diagnoses Date/Time RETROGRADE PYELOGRAM Malignant Neoplasm Of 10/10 10:25 AM INTRANET SUPPORT Bladder (HCC) ENDOPYELOTOMY RETROGRADE Malignant Neoplasm Of 1 12/11/2021 10:25 AM INTRANET SUPPORT Bladder (HCC) CYSTOSCOPY WITH Malignant Neoplasm Of 10/10/2022 10:25 AM INTRANET SUPPORT TRANSURETHRAL RESECTION Bladder (HCC) LESION BLADDER Scheduled Referrals Name Type Priority Associated Order Schedule Diagnoses Dermatology office Outpatient Referral Routine Ex pected: visit (clinic) 08/01/2020 (Approximate), Expires: 05/01/2023 documented as of this encounter Visit Diagnoses Diagnosis Keratosis Actinic - Primary Malignant Neoplasm Of Bladder (HCC) documented in this encounter
--- OUTSIDE RECORDS SUMMARY | 2022-09-20 14:19 | XMS_ITS | Encounter Summary ---
:1935 Author Organization [facility] Address [address] [place] [address] Care Team Providers Name Role Phone Elsewhere, Pcp Primary Care Provider Unavailable Encounter Details Date Type Department Care Team Description 01/14/2022 Documentation Division of Nephrology and Alicia Jeffrey, Hypertension in [place], [place], Ph.D. [address] [place] [phone] (Wo rk) Social History Tobacco Use Types [...] you attend bahai or Patient refused 2021 rastafari services? Do [...] Date Recorded Male 09/10/2018 8:41 AM RN CCU documented as of this encounter Plan of Treatment Upcoming Encounters Date Type Specialty Care Team Description 10/10/2022 Hospital Encounter Albert Walelr M.D. [address] [place] [phone] (Wo rk) 10/10/2022 Surgery Albert Waller Palliati ve RETROGRADE M.D. PYELOGRAM- possible [address] LAZO antegrade ureteroscopy, JAIMEE Eason ureteral stent placement [id number] (Wo rk) Scheduled Procedures Name Priority Associated Diagnoses Date/Time RETROGRADE PYELOGRAM Malignant Neoplasm Of 10/10 10:25 AM RN CCU Bladder (HCC) ENDOPYELOTOMY RETROGRADE Malignant Neoplasm Of 1 12/11/2021 10:25 AM RN CCU Bladder (HCC) CYSTOSCOPY WITH Malignant Neoplasm Of 10/10/2022 10:25 AM RN CCU TRANSURETHRAL RESECTION Bladder (HCC) LESION BLADDER documented as of this encounter Visit Diagnoses Not on filedocumented in this encounter Care Teams Childcare Director Relationship Specialty Start Date End Date Elsewhere, Pcp PCP - General Internal Medicine 01/14/22 documented as of this encounter
--- OUTSIDE RECORDS SUMMARY | 2022-09-20 14:19 | XMS_ITS | Encounter Summary ---
:1935 Author Organization [facility] Address [address] [place] [address] Care Team Providers Name Role Phone Unavailable Primary Care Provider Unavailable Encounter Details Date Type Department Care Team Description 08/02/2019 Clinical Communication Department of Shanta Pena V., Dermatology in [address] [phone] Social History Tobacco Use Types Packs/Day Years [...] you attend hindu or Patient refused 2021 jainism services? 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 [address] [place] [phone] (Octavio christensen) 10/10/2022 Surgery Albert Waller Palliati ve RETROGRADE M.D. PYELOGRAM- possible [address] LAZO antegrade [place] ureteral stent placement [id number] (Octavio christensen) Scheduled Procedures Name Priority Associated Diagnoses Date/Time RETROGRADE PYELOGRAM Malignant Neoplasm Of 10/10 10:25 AM MEDICAL EDUCATION COORDINATOR Bladder (HCC) ENDOPYELOTOMY RETROGRADE Malignant Neoplasm Of 1 12/11/2021 10:25 AM MEDICAL EDUCATION COORDINATOR Bladder (HCC) CYSTOSCOPY WITH Malignant Neoplasm Of 10/10/2022 10:25 AM MEDICAL EDUCATION COORDINATOR TRANSURETHRAL RESECTION Bladder (HCC) LESION BLADDER documented as of this encounter Visit Diagnoses Not on filedocumented in this encounter
--- OUTSIDE RECORDS SUMMARY | 2022-09-20 14:19 | XMS_ITS | Encounter Summary ---
:1935 Author Organization [facility] Address [address] [place] [address] Care Team Providers Name Role Phone Unavailable Primary Care Provider Unavailable Encounter Details Date Type Department Care Team Description 06/05/2021 Orders Only [facility] PCP [facility] MNoGrdon Henderson, D.OJluis [address] [place] [address] (Wo rk) Social History Tobacco [...] you attend voodoo or Patient refused 2021 mu-ism services? Do [...] NIB INSPECTOR documented as of this encounter Plan [...] PYELOGRAM Malignant Neoplasm Of 10/10 10:25 AM NIB INSPECTOR Bladder (HCC) ENDOPYELOTOMY RETROGRADE Malignant Neoplasm Of 1 12/11/2021 10:25 AM NIB INSPECTOR Bladder (HCC) CYSTOSCOPY WITH Malignant Neoplasm Of 10/10/2022 10:25 AM NIB INSPECTOR TRANSURETHRAL RESECTION Bladder (HCC) LESION BLADDER documented as of this encounter Visit Diagnoses Not on filedocumented in this encounter
--- OUTSIDE RECORDS SUMMARY | 2022-09-20 14:20 | XMS_ITS | Encounter Summary ---
:1935 Author Organization [facility] Address [address] [place] [address] Care Team Providers Name Role Phone Unavailable Primary Care Provider Unavailable Reason for Visit Reason Comments Biopsy Encounter Details Date Type Department Care Team Description 06/29/2019 Procedure visit Department of Aashish Pandey (Primary Dx); Dermatology in [place] M.D. Keratosis [place], [place] [address] [place] [phone] Social History Tobacco Use Types Packs/Day Years [...] you attend restoration or Patient refused 2021 yazidism services? 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 The patient was very adamant about not going down to [facility] and would like me to treat [...] dorsum all treated with Mohs surgery at [facility] on10/27/17. The largest of his squamous cell carcinomas involving his left cheek was initially treated with CO2 laser in [place] and then Mohs surgery thereafter. 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 Hare. MEDICAL HISTORY 1. 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 Hare??at [facility] on 10/27/17 2. Squamous cell carcinoma [...] which he refused to go down to [place] to have this done. Subsequently, we recommend [...] he is not willing to travel to [facility] at this time. PROCEDURAL PAUSE: Procedural [...] the patient by letter. Patient given pamphlet [id number]. Discussed the risks, benefits, alternatives, and the necessity of other members of the healthcare team participating in the procedure. All questions answered and consent given. #2 Left preauricular: Squamous cell carcinoma, superficially transected As noted above, we had recommended Mohs surgery for this squamous cell carcinoma. However, he refused to go to [place] to have the Mohs surgery done. Subsequently, [...] he is not willing to travel to [facility] at this time. PROCEDURAL PAUSE: Procedural [...] the patient by letter. Patient given pamphlet [id number]. Discussed the risks, benefits, alternatives, and the [...] require further treatment with Mohs surgery in [place]. He knowswhat to expect with the Mohs surgery and subsequently I have placed an order to have this done. I have asked him to follow up with me in the next few months and he states he already has an appointment.They requested that the [place] appointment office call them with regards to the Mohs surgery date and time and I told him I would put that on the request. I have asked them to call me if they have not heard back from our appointment office in [place] within a week or if the surgery date is more than 4-6 weeks from now. They are appreciative of the phone call. All questions answered. documented in this encounter Plan of Treatment Upcoming Encounters Date Type Specialty Care Team Description 10/10/2022 Hospital Encounter Albert Waller M.D. [address] [place] [id number] (Octavio christensen) 10/10/2022 Surgery Albetr Waller Palliati ve RETROGRADE M.D. PYELOGRAM- possible [address] LAZO antegrade ureteroscopy, JAIMEE E[place] ureteral stent placement [id number] (Octavio christensen) Scheduled Procedures Name Priority Associated Diagnoses Date/Time RETROGRADE PYELOGRAM Malignant Neoplasm Of 10/10 10:25 AM SUPPLY CATALOGUER Bladder (HCC) ENDOPYELOTOMY RETROGRADE Malignant Neoplasm Of 1 12/11/2021 10:25 AM SUPPLY CATALOGUER Bladder (HCC) CYSTOSCOPY WITH Malignant Neoplasm Of 10/10/2022 10:25 AM SUPPLY CATALOGUER TRANSURETHRAL RESECTION Bladder (HCC) LESION BLADDER documented [...] in cassette B1. Grossed by AV. Antonio Kalie S. 07/07/2019 electronically Ashtyn Corral 1:53 PM CDT [...] City/State/ZIP Code Phon e Number [facility] - [address] [place], [place] [address] [facility] documented in this encounter Visit Diagnoses Diagnosis Lesion Skin - Primary Keratosis Actinic Malignant Neoplasm Of [...]
--- OUTSIDE RECORDS SUMMARY | 2022-09-20 14:20 | XMS_ITS | Encounter Summary ---
:1935 Author Organization [facility] Address [address] [place] [address] Care Team Providers Name Role Phone Unavailable [...] you attend jew or Patient refused 2021 scientology services? 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
--- OUTSIDE RECORDS SUMMARY | 2022-09-20 14:20 | XMS_ITS | Encounter Summary ---
:1935 Author Organization [facility] Address [address] [place] [address] Care Team Providers Name Role Phone Unavailable Primary Care Provider Unavailable Reason for Visit Reason Comments Skin Check Outpatient (Routine) - Closed Specialty Diagnoses / Procedures Referred By Contact Refer red To Contact Dermatology Aashish Pandey M.D . [facility] [address] [place] [phone] Referral ID Status Reason Start Date Expiration Date Visits Requ ested Visits Authorized [id number] Closed 02/16/2019 02/16/2020 1 1 Encounter Details Date Type Department Care Team Description 04/19/2019 Office Visit Department of Aashish Pandey, Tumor Skin Uncertain Behavior (Primary Dx); Dermatology in [place]amorro Keratosis [place], [place] [address] [place] [phone] Social History Tobacco Use Types Packs/Day Years [...] you attend gnosticist or Patient refused 2021 caodaism services? 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 Hare. 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 The largest of his squamous cell carcinomas involving his left cheek was initially treated with CO2 laser in [place] and then Mohs surgery thereafter. MEDICAL HISTORY 1. 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 Hare??at [facility] on 10/27/17 2. Squamous cell carcinoma [...] a total of 27 lesion(s) with two 38-78-tefegv freeze-thaw cycles of liquid nitrogen cryoth erapy. [...] status post Mohs surgery by Dr. Hare??at [facility] on 10/27/17 ?? No evidence for [...] PYELOGRAM Malignant Neoplasm Of 10/10 10:25 AM LANDING WORKER Bladder (HCC) ENDOPYELOTOMY RETROGRADE Malignant Neoplasm Of 1 12/11/2021 10:25 AM LANDING WORKER Bladder (HCC) CYSTOSCOPY WITH Malignant Neoplasm Of 10/10/2022 10:25 AM LANDING WORKER TRANSURETHRAL RESECTION Bladder (HCC) LESION BLADDER documented as of this encounter Visit Diagnoses Diagnosis Tumor Skin Uncertain Behavior - Primary 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
--- OUTSIDE RECORDS SUMMARY | 2022-09-20 14:20 | XMS_ITS | Encounter Summary ---
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 [address] [place] [id number] (Octavio rk) 10/10/2022 Surgery Albert Waller, Palliati ve RETROGRADE M.DJluis PYELOGRAM- possible [address] LAZO antegrade ureteroscopy, JAIMEE Eason ureteral stent placement [id number] (Wo rk) Scheduled Procedures Name Priority Associated Diagnoses Date/Time RETROGRADE PYELOGRAM Malignant Neoplasm Of 10/10 10:25 AM PROGRAM FACILITATOR Bladder (HCC) ENDOPYELOTOMY RETROGRADE Malignant Neoplasm Of 1 12/11/2021 10:25 AM PROGRAM FACILITATOR Bladder (HCC) CYSTOSCOPY WITH Malignant Neoplasm Of 10/10/2022 10:25 AM PROGRAM FACILITATOR TRANSURETHRAL RESECTION Bladder (HCC) LESION BLADDER documented [...]
--- OUTSIDE RECORDS SUMMARY | 2022-09-20 14:20 | XMS_ITS | Encounter Summary ---
:1935 Author Organization [facility] Address [address] [place] [address] Care Team Providers Name Role Phone Unavailable Primary Care Provider Unavailable Reason for Visit Reason Onset Date Comments biopsy results 06/07/2019 Encounter Details Date Type Department Care Team Description 06/07/2019 Clinical Communication Department of Becky Trinidad biopsy results Medicine, [place] Newby M.D. [facility], in [address] [place] [phone] [place] [address] [place], [place] (Work) [phone] Social History Tobacco Use [...] you attend buddhism or Patient refused 2021 roman catholic services? [...] at Date Recorded Male 09/10/2018 8:41 AM BAR TENDER documented as of this encounter Miscellaneous Notes Telephone Encounter - Blanca Dickens - 06/07/2019 3:10 PM CDT Pt called and would like a call back regarding biopsy results. Please call her at [phone] documented in this encounter Plan of Treatment [...] PYELOGRAM Malignant Neoplasm Of 10/10 10:25 AM BAR TENDER Bladder (HCC) ENDOPYELOTOMY RETROGRADE Malignant Neoplasm Of 1 12/11/2021 10:25 AM BAR TENDER Bladder (HCC) CYSTOSCOPY WITH Malignant Neoplasm Of 10/10/2022 10:25 AM BAR TENDER TRANSURETHRAL RESECTION Bladder (HCC) LESION BLADDER documented as of this encounter Visit Diagnoses Not on filedocumented in this encounter
--- OUTSIDE RECORDS SUMMARY | 2022-09-20 14:20 | XMS_ITS | Encounter Summary ---
:1935 Author Organization [facility] Address [address] [place] [address] Care Team Providers Name Role Phone Unavailable [...] you attend sabianist or Patient refused 2021 evangelical services? 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
--- OUTSIDE RECORDS SUMMARY | 2022-09-20 14:20 | XMS_ITS | Encounter Summary ---
:1935 Author Organization [facility] Address [address] [place] [address] Care Team Providers Name Role Phone Unavailable [...] you attend episcopal or Patient refused 2021 temple services? Do [...] Date Recorded Male 09/10/2018 8:41 AM RN SCHOOL documented as of this encounter Plan of [...] Malignant Neoplasm Of 10/10 10:25 AM RN SCHOOL Bladder (HCC) ENDOPYELOTOMY RETROGRADE Malignant Neoplasm Of 1 12/11/2021 10:25 AM RN SCHOOL Bladder (HCC) CYSTOSCOPY WITH Malignant Neoplasm Of 10/10/2022 10:25 AM RN SCHOOL TRANSURETHRAL RESECTION Bladder (HCC) LESION BLADDER documented [...]
--- OUTSIDE RECORDS SUMMARY | 2022-09-20 14:20 | XMS_ITS | Encounter Summary ---
:1935 Author Organization [facility] Address [address] [place] [address] Care Team Providers Name Role Phone Unavailable Primary Care Provider Unavailable Encounter Details Date Type Department Care Team Description 06/07/2019 Orders Only Department of Aashish Pandey, Law [place] (Primary Dermatology in [place]am[place] ) [address] [phone] Social History Tobacco Use Types Packs/Day Years [...] you attend caodaism or Patient refused 2021 anabaptist services? Do [...] Date Recorded Male 09/10/2018 8:41 AM LINE LEAD documented as of this encounter Plan [...] Expec kathleen: 06/29/2019 procedure (Approximate), Expires: 2021 Scheduled Procedures Name Priority Associated Diagnoses Date/Time RETROGRADE PYELOGRAM Malignant Neoplasm Of 10/10 10:25 AM LINE LEAD Bladder (HCC) ENDOPYELOTOMY RETROGRADE Malignant Neoplasm Of 1 12/11/2021 10:25 AM LINE LEAD Bladder (HCC) CYSTOSCOPY WITH Malignant Neoplasm Of 10/10/2022 10:25 AM LINE LEAD TRANSURETHRAL RESECTION Bladder (HCC) LESION BLADDER documented as of this encounter Visit Diagnoses Diagnosis Lesion Skin - Primary Malignant Neoplasm Of Bladder (HCC) documented in this encounter
--- OUTSIDE RECORDS SUMMARY | 2022-09-20 14:20 | XMS_ITS | Encounter Summary ---
:1935 Author Organization [facility] Address [address] [place] [address] Care Team Providers Name Role Phone Unavailable Primary Care Provider Unavailable Reason for Referral Appointment Request (Routine) - Closed Specialty Diagnoses / Procedures Referred By Contact Refer red To Contact Procedures Aashish Pandey M.D. [facility] 1-4 sites [address] [place] [phone] Referral ID Status Reason Start Date Expiration Date Visits Requ ested Visits Authorized [id number] Closed 07/12/2019 07/11/2020 1 Encounter Details Date Type Department Care Team Description 07/12/2019 Orders Only Department of Aashish Pandey, Malignant Neoplasm Of Dermatology in [place] Face Squamous Cell [address] (Primary Dx) [address] [place] [phone] Social History Tobacco Use Types Packs/Day Years [...] you attend adventist or Patient refused 2021 restorationism services? Do you belong to any clubs or No 05/17/2022 organizations such as adventist groups, unions, [employer] or athletic groups, or school groups? How [...] at Date Recorded Male 09/10/2018 8:41 AM LACE AND TEXTILES RESTORER documented as of this encounter Plan of Treatment Upcoming Encounters Date Type Specialty Care Team Description 10/10/2022 Hospital Encounter Albert Waller M.D. [address] [place] [phone] (Octavio christensen) 10/10/2022 Surgery Albert Waller Palliati ve RETROGRADE M.D. PYELOGRAM- possible [address] LAZO antegrade ureteroscopy, JAIMEE Eason ureteral stent placement [id number] (Octavio christensen) Scheduled Orders Name Type Priority Associated Diagnoses Order S jermain [facility] 1-4 sites Dermatology Routine Malignant Neoplasm Of Expected: 07/12/2019 Face Squamous Cell (Approxim ate), Expires: 2021 Scheduled Procedures Name Priority Associated Diagnoses Date/Time RETROGRADE PYELOGRAM Malignant Neoplasm Of 10/10 10:25 AM LACE AND TEXTILES RESTORER Bladder (HCC) ENDOPYELOTOMY RETROGRADE Malignant Neoplasm Of 1 12/11/2021 10:25 AM LACE AND TEXTILES RESTORER Bladder (HCC) CYSTOSCOPY WITH Malignant Neoplasm Of 10/10/2022 10:25 AM LACE AND TEXTILES RESTORER TRANSURETHRAL RESECTION Bladder (HCC) LESION BLADDER documented as of this encounter Visit Diagnoses Diagnosis Malignant 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
--- OUTSIDE RECORDS SUMMARY | 2022-09-20 14:20 | XMS_ITS | Encounter Summary ---
:1935 Author Organization [facility] Address [address] [place] [address] Care Team Providers Name Role Phone Unavailable Primary Care Provider Unavailable Reason for Visit Appointment Request (Routine) - Closed Specialty Diagnoses / Procedures Referred By Contact Refer red To Contact Procedures Aashish Pandey M.D. [facility] 1-4 sites [address] [place] [phone] Referral ID Status Reason Start Date Expiration Date Visits Requ ested Visits Authorized [id number] Closed 07/12/2019 07/11/2020 1 Encounter Details Date Type Department Care Team Description 07/27/2019 Procedure visit Department of Khadar Juarez, Keratosi s Actinic (Primary Dx); Dermatology in M.D. Malignant Neoplasm Of Face Squamous Cell [place], [place] [address] [facility] [address] [place] [phone] Social History Tobacco Use Types Packs/Day Years [...] you attend synagogue or Patient refused 2021 presybeterian services? 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 Juarez Regional Vice President Surgical Sales: Dr. 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 PYELOGRAM- possible [address] LAZO antegrade ureteroscopy, JAIMEE Eason ureteral stent placement [id number] (Wo rk) Scheduled Procedures Name Priority Associated Diagnoses Date/Time RETROGRADE PYELOGRAM Malignant Neoplasm Of 10/10 10:25 AM MINE MOTOR ENGINEER Bladder (HCC) ENDOPYELOTOMY RETROGRADE Malignant Neoplasm Of 1 12/11/2021 10:25 AM MINE MOTOR ENGINEER Bladder (HCC) CYSTOSCOPY WITH Malignant Neoplasm Of 10/10/2022 10:25 AM MINE MOTOR ENGINEER TRANSURETHRAL RESECTION Bladder (HCC) LESION BLADDER documented as of this encounter Visit Diagnoses Diagnosis Keratosis Actinic - Primary Malignant Neoplasm Of Face Squamous Cell Malignant Neoplasm Of Bladder (HCC) documented in this encounter Administered Medications Inactive Administered Medications - up to 3 most recent administrations Medication Order MAR Action Action Date Dose Rate Site [id number] Given 07/27/2019 9:35 AM CDT 2 mL [...]
--- OUTSIDE RECORDS SUMMARY | 2022-09-20 14:20 | XMS_ITS | Encounter Summary ---
:1935 Author Organization [facility] Address [address] [place] [address] Care Team Providers Name Role Phone Unavailable Primary Care Provider Unavailable Reason for Visit Reason Comments Biopsy Encounter Details Date Type Department Care Team Description 05/25/2019 Procedure visit Department of Aashish Pandey Tumor Skin Uncertain Behavior (Primary Dx); Dermatology in [place] New[place] M.D. Keratosis Actinic; [place], [place] [address] [facility] Keratosis Seborrheic Inflamed [address] [place] [phone] Social History Tobacco Use Types Packs/Day Years [...] you attend latter-day or Patient refused 2021 alevism services? Do [...] Date Recorded Male 09/10/2018 8:41 AM GENERAL PRACTITIONER documented as of this encounter Progress Notes [...] treated with Mohs surgery at [facility] on 10/27/17. The largest of his squamous cell carcinomas involving his left cheek was initially treated with CO2 laser in [place] and then Mohs surgery thereafter. 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 Hare??at [facility] on 10/27/17 2. Squamous cell carcinoma [...] infraorbital x2, left ear helix x1, left yazdanism x1, left upper cheek x2, right nasal [...] the patient by letter. Patient given pamphlet [id number]. Discussed the risks, benefits, alternatives, and the necessity of other members of the healthcare team participating in the procedure. All questions answered and consent given. #2 Left preauricular: Rule out basal cell carcinoma versus belt picker's papule We recommend a shave biopsy [...] the patient by letter. Patient given pamphlet [id number]. Discussed the risks, benefits, alternatives, and the [...] a total of 14 lesion(s) with two 06-79-znpbbx freeze-thaw cycles of liquid nitrogen cryoth erapy. [...] a total of 1 lesion(s) with two 99-08-ienovk freeze-thaw cycles of liquid nitrogen cryotherapy. The [...] have recommended Mohs surgery at [facility]. Patient is very adamant about not going down to [facility] and would like me to treat these lesions. I discussed with him that the optimal treatment is the Mohs surgery and he understands but does not want to go havethis done. Subsequently, he will return to [place] where we will do further shave biopsies [...] surgery at this time. An appointment for [facility] was placed today. documented in this encounter Plan of Treatment Upcoming Encounters Date Type Specialty Care Team Description 10/10/2022 Hospital Encounter Albert Waller M.D. [address] [place] [phone] (Wo rk) 10/10/2022 Surgery Albert Waller, Palliati ve RETROGRADE M.DJluis PYELOGRAM- possible [address] LAZO antegrade ureteroscopy, JAIMEE Eason ureteral stent placement [id number] (Wo rk) Scheduled Procedures Name Priority Associated Diagnoses Date/Time RETROGRADE PYELOGRAM Malignant Neoplasm Of 10/10 10:25 AM GENERAL PRACTITIONER Bladder (HCC) ENDOPYELOTOMY RETROGRADE Malignant Neoplasm Of 1 12/11/2021 10:25 AM GENERAL PRACTITIONER Bladder (HCC) CYSTOSCOPY WITH Malignant Neoplasm Of 10/10/2022 10:25 AM GENERAL PRACTITIONER TRANSURETHRAL RESECTION Bladder (HCC) LESION BLADDER documented [...] is a 0.5 x 0.4 cm pale hkr-onsmkr-ealyl, slightly raised, firm lesion with irregular borders [...] City/State/ZIP Code Phon e Number [facility] - [address] documented in this encounter Visit Diagnoses [...]
--- OUTSIDE RECORDS SUMMARY | 2022-09-20 14:20 | XMS_ITS | Encounter Summary ---
:1935 Author Organization [facility] Address [address] [place] [address] Care Team Providers Name Role Phone Unavailable [...] you attend taoism or Patient refused 2021 hoahaoism services? Do [...] at Date Recorded Male 09/10/2018 8:41 AM PROFESSOR OF FAMILY MEDICINE documented as of this encounter Plan of [...] PYELOGRAM Malignant Neoplasm Of 10/10 10:25 AM PROFESSOR OF FAMILY MEDICINE Bladder (HCC) ENDOPYELOTOMY RETROGRADE Malignant Neoplasm Of 1 12/11/2021 10:25 AM PROFESSOR OF FAMILY MEDICINE Bladder (HCC) CYSTOSCOPY WITH Malignant Neoplasm Of 10/10/2022 10:25 AM PROFESSOR OF FAMILY MEDICINE TRANSURETHRAL RESECTION Bladder (HCC) LESION BLADDER documented [...]
--- OUTSIDE RECORDS SUMMARY | 2022-09-20 14:21 | XMS_ITS | Encounter Summary ---
:1935 Author Organization [facility] Address [address] [place] [address] Care Team Providers Name Role Phone Unavailable [...] you attend methodist or Patient refused 2021 alevism services? Do [...] at Date Recorded Male 09/10/2018 8:41 AM HONING MACHINE TRY OUT SETTER documented as of this encounter Plan of Treatment Upcoming Encounters Date Type Specialty Care Team Description 10/10/2022 Hospital Encounter Albert Waller M.D. [address] [place] [phone] (Wo rk) 10/10/2022 Surgery Albert Waller, Rivera kumar RETROGRADE M.Edwige PYELOGRAM- possible [address] LAZO antegrade ureteroscopy, [place] ureteral stent placement [id number] (Wo rk) Scheduled Procedures Name Priority Associated Diagnoses Date/Time RETROGRADE PYELOGRAM Malignant Neoplasm Of 10/10 10:25 AM HONING MACHINE TRY OUT SETTER Bladder (HCC) ENDOPYELOTOMY RETROGRADE Malignant Neoplasm Of 1 12/11/2021 10:25 AM HONING MACHINE TRY OUT SETTER Bladder (HCC) CYSTOSCOPY WITH Malignant Neoplasm Of 10/10/2022 10:25 AM HONING MACHINE TRY OUT SETTER TRANSURETHRAL RESECTION Bladder (HCC) LESION BLADDER documented as of this encounter Procedures Procedure Name Priority Date/Time Associated Comments Diagnosis DERMATOLOGY IMAGE Routine 10/27/2017 12:25 Result s for this EXAM PM HONING MACHINE TRY OUT SETTER procedure are i n the results section. documented in this encounter Results DERMATOLOGY IMAGE EXAM (10/27/2017 12:25 PM HONING MACHINE TRY OUT SETTER) Specimen (Source) Anatomical Location Collection Method / Collectio n Time Received Time / Laterality Volume Narrative IIMS - 10/27/2017 4:45 PM HONING MACHINE TRY OUT SETTER This order has been created and auto-finalized [...]
--- OUTSIDE RECORDS SUMMARY | 2022-09-20 14:21 | XMS_ITS | Encounter Summary ---
:1935 Author Organization [facility] Address [address] [place] [address] Care Team Providers Name Role Phone Unavailable Primary Care Provider Unavailable Reason for Visit Reason Comments Skin Check Encounter Details Date Type Department Care Team Description 06/02/2018 Office Visit Department of Aashish Pandey, Keratosis Actinic (Primary Dx); Dermatology in [place] [facility]; [place], [place] [address] [facility] Keratosis Seborrheic; [address] [place] [address] Cancer Skin Squamous Cell [place] [phone] Social History Tobacco Use Types Packs/Day [...] you attend worship or Patient refused 2021 sikhism services? Do [...] at Date Recorded Male 09/10/2018 8:41 AM FREELANCE RECRUITER documented as of this encounter Progress Notes [...] and actinic damage involving his face at [facility] in November 2017 under the care of Dr. Hare. 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 The squamous cell carcinoma involving his left cheek was treated initially with CO2 laser in [place] and then Mohs surgery thereafter. 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 Today he has [...] dorsum all treated with Mohs surgery at [facility] in October 2017 PHYSICAL EXAM General: [...] Encounter Albert Waller M.D. [address] [place], [place] [phone] (Wo rk) 10/10/2022 Surgery Albert Waller Palliati ve RETROGRADE M.D. PYELOGRAM- possible [address] LAZO antegrade ureteroscopy, [place], [place] ureteral stent placement [id number] (Wo rk) Scheduled Procedures Name Priority Associated Diagnoses Date/Time RETROGRADE PYELOGRAM Malignant Neoplasm Of 10/10 10:25 AM FREELANCE RECRUITER Bladder (HCC) ENDOPYELOTOMY RETROGRADE Malignant Neoplasm Of 1 12/11/2021 10:25 AM FREELANCE RECRUITER Bladder (HCC) CYSTOSCOPY WITH Malignant Neoplasm Of 10/10/2022 10:25 AM FREELANCE RECRUITER TRANSURETHRAL RESECTION Bladder (HCC) LESION BLADDER documented as of this encounter Visit Diagnoses Diagnosis Keratosis Actinic - Primary Nevi Multiple Keratosis Seborrheic Cancer Skin Squamous Cell Personal Histo ry Malignant Neoplasm Of Bladder (HCC) documented in this encounter
--- OUTSIDE RECORDS SUMMARY | 2022-09-20 14:21 | XMS_ITS | Encounter Summary ---
:1935 Author Organization [facility] Address [address] [place] [address] Care Team Providers Name Role Phone Unavailable [...] attend oriental orthodox or Patient refused 2021 yarsani services? Do [...] at Date Recorded Male 09/10/2018 8:41 AM J2EE CONSULTANT documented as of this encounter Plan [...] PYELOGRAM Malignant Neoplasm Of 10/10 10:25 AM J2EE CONSULTANT Bladder (HCC) ENDOPYELOTOMY RETROGRADE Malignant Neoplasm Of 1 12/11/2021 10:25 AM J2EE CONSULTANT Bladder (HCC) CYSTOSCOPY WITH Malignant Neoplasm Of 10/10/2022 10:25 AM J2EE CONSULTANT TRANSURETHRAL RESECTION Bladder (HCC) LESION BLADDER documented as of this encounter Procedures Procedure Name Priority Date/Time Associated Comments Diagnosis DERMATOLOGY IMAGE Routine 12/10/2017 12:00 Result s for this EXAM PM J2EE CONSULTANT procedure are i n the results section. documented in this encounter Results DERMATOLOGY IMAGE EXAM (12/10/2017 12:00 PM J2EE CONSULTANT) Specimen (Source) Anatomical Collection Method Collection Time Re ceived Time Location / / Volume Laterality 12/10/2017 12:00 PM J2EE CONSULTANT Narrative IIMS - 12/10/2017 3:55 PM J2EE CONSULTANT This order has been created and auto-finalized [...]
--- OUTSIDE RECORDS SUMMARY | 2022-09-20 14:21 | XMS_ITS | Encounter Summary ---
:1935 Author Organization [facility] Address [address] [place] [address] Care Team Providers Name Role Phone Unavailable Primary Care Provider Unavailable Encounter Details Date Type Department Care Team Description 04/13/2019 Clinical Communication Department of Shanta Pena V., Dermatology in [address] [phone] Social History Tobacco Use Types Packs/Day Years [...] you attend mandaeism or Patient refused 2021 christianity services? 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 [address] [place] [id number] (Octavio christensen) 10/10/2022 Surgery Albert Waller Palliati ve RETROGRADE M.D. PYELOGRAM- possible [address] LAZO antegrade ureteroscopy, [place] ureteral stent placement [id number] (Octavio christensen) Scheduled Procedures Name Priority Associated Diagnoses Date/Time RETROGRADE PYELOGRAM Malignant Neoplasm Of 10/10 10:25 AM PROJECT MANAGER INDUSTRIAL Bladder (HCC) ENDOPYELOTOMY RETROGRADE Malignant Neoplasm Of 1 12/11/2021 10:25 AM PROJECT MANAGER INDUSTRIAL Bladder (HCC) CYSTOSCOPY WITH Malignant Neoplasm Of 10/10/2022 10:25 AM PROJECT MANAGER INDUSTRIAL TRANSURETHRAL RESECTION Bladder (HCC) LESION BLADDER documented as of this encounter Visit Diagnoses Not on filedocumented in this encounter
--- OUTSIDE RECORDS SUMMARY | 2022-09-20 14:21 | XMS_ITS | Encounter Summary ---
:1935 Author Organization [facility] Address [address] [place] [address] Care Team Providers Name Role Phone Unavailable Primary Care Provider Unavailable Encounter Details Date Type Department Care Team Description 05/24/2015 Hospital Encounter HX RST DERM SURG OP [facility] Ra yandel Hare M.D. [address] [place] [phone] (Wo rk) Social History Tobacco Use Types [...] you attend episcopalian or Patient refused 2021 buddhist services? Do [...] at Date Recorded Male 09/10/2018 8:41 AM WEB SERVICES DEVELOPER documented as of this encounter Last [...] Albert Waller M.D. [address] [place] [phone] (Octavio christensen) 10/10/2022 Surgery Albert Waller Palliati ve RETROGRADE M.D. PYELOGRAM- possible [address] LAZO antegrade ureteroscopy, [place] ureteral stent placement [id number] (Octavio christensen) Scheduled Procedures Name Priority Associated Diagnoses Date/Time RETROGRADE PYELOGRAM Malignant Neoplasm Of 10/10 10:25 AM WEB SERVICES DEVELOPER Bladder (HCC) ENDOPYELOTOMY RETROGRADE Malignant Neoplasm Of 1 12/11/2021 10:25 AM WEB SERVICES DEVELOPER Bladder (HCC) CYSTOSCOPY WITH Malignant Neoplasm Of 10/10/2022 10:25 AM WEB SERVICES DEVELOPER TRANSURETHRAL RESECTION Bladder (HCC) LESION BLADDER documented as of this encounter Visit Diagnoses Not on filedocumented in this encounter
--- OUTSIDE RECORDS SUMMARY | 2022-09-20 14:21 | XMS_ITS | Encounter Summary ---
:1935 Author Organization [facility] Address [address] [place] [address] Care Team Providers Name Role Phone Unavailable [...] you attend jew or Patient refused 2021 episcopalian services? Do [...] Recorded Male 09/10/2018 8:41 AM HELP DESK ASSOCIATE documented as of this encounter Plan of Treatment Upcoming Encounters Date Type Specialty Care Team Description 10/10/2022 Hospital Encounter Albert Waller M.D. [address] [place] [phone] (Wo rk) 10/10/2022 Surgery Albert Waller, Rivera kumar RETROGRADE M.Edwige PYELOGRAM- possible [address] LAZO antegrade ureteroscopy, [place] ureteral stent placement [id number] (Wo rk) Scheduled Procedures Name Priority Associated Diagnoses Date/Time RETROGRADE PYELOGRAM Malignant Neoplasm Of 10/10 10:25 AM HELP DESK ASSOCIATE Bladder (HCC) ENDOPYELOTOMY RETROGRADE Malignant Neoplasm Of 1 12/11/2021 10:25 AM HELP DESK ASSOCIATE Bladder (HCC) CYSTOSCOPY WITH Malignant Neoplasm Of 10/10/2022 10:25 AM HELP DESK ASSOCIATE TRANSURETHRAL RESECTION Bladder (HCC) LESION BLADDER documented as of this encounter Procedures Procedure Name Priority Date/Time Associated Comments Diagnosis DERMATOLOGY IMAGE Routine 10/27/2017 12:20 Result s for this EXAM PM HELP DESK ASSOCIATE procedure are i n the results section. documented in this encounter Results DERMATOLOGY IMAGE EXAM (10/27/2017 12:20 PM HELP DESK ASSOCIATE) Specimen (Source) Anatomical Location Collection Method / Collectio n Time Received Time / Laterality Volume Narrative IIMS - 10/27/2017 4:43 PM HELP DESK ASSOCIATE This order has been created [...]
--- OUTSIDE RECORDS SUMMARY | 2022-09-20 14:21 | XMS_ITS | Encounter Summary ---
:1935 Author Organization [facility] Address [address] [place] [address] Care Team Providers Name Role Phone Unavailable [...] you attend yazdanism or Patient refused 2021 episcopal services? Do [...] at Date Recorded Male 09/10/2018 8:41 AM SURFACER OPERATOR documented as of this encounter Plan [...] PYELOGRAM Malignant Neoplasm Of 10/10 10:25 AM SURFACER OPERATOR Bladder (HCC) ENDOPYELOTOMY RETROGRADE Malignant Neoplasm Of 1 12/11/2021 10:25 AM SURFACER OPERATOR Bladder (HCC) CYSTOSCOPY WITH Malignant Neoplasm Of 10/10/2022 10:25 AM SURFACER OPERATOR TRANSURETHRAL RESECTION Bladder (HCC) LESION BLADDER documented as of this encounter Procedures Procedure Name Priority Date/Time Associated Comments Diagnosis DERMATOLOGY IMAGE Routine 10/27/2017 12:00 Result s for this EXAM PM SURFACER OPERATOR procedure are i n the results section. documented in this encounter Results DERMATOLOGY IMAGE EXAM (10/27/2017 12:00 PM SURFACER OPERATOR) Specimen (Source) Anatomical Location Collection Method / Collectio n Time Received Time / Laterality Volume Narrative IIMS - 10/27/2017 4:43 PM SURFACER OPERATOR This order has been created and [...]
--- OUTSIDE RECORDS SUMMARY | 2022-09-20 14:21 | XMS_ITS | Encounter Summary ---
:1935 Author Organization [facility] Address [address] [place] [address] Care Team Providers Name Role Phone Unavailable [...] you attend hindu or Patient refused 2021 sabianism services? Do [...] at Date Recorded Male 09/10/2018 8:41 AM COAT EXAMINER documented as of this encounter Plan of [...] PYELOGRAM Malignant Neoplasm Of 10/10 10:25 AM COAT EXAMINER Bladder (HCC) ENDOPYELOTOMY RETROGRADE Malignant Neoplasm Of 1 12/11/2021 10:25 AM COAT EXAMINER Bladder (HCC) CYSTOSCOPY WITH Malignant Neoplasm Of 10/10/2022 10:25 AM COAT EXAMINER TRANSURETHRAL RESECTION Bladder (HCC) LESION BLADDER documented as of this encounter Procedures Procedure Name Priority Date/Time Associated Comments Diagnosis DERMATOLOGY IMAGE Routine 10/27/2017 12:15 Result s for this EXAM PM COAT EXAMINER procedure are i n the results section. documented in this encounter Results DERMATOLOGY IMAGE EXAM (10/27/2017 12:15 PM COAT EXAMINER) Specimen (Source) Anatomical Location Collection Method / Collectio n Time Received Time / Laterality Volume Narrative IIMS - 10/27/2017 4:43 PM COAT EXAMINER This order has been created and auto-finalized [...]
--- OUTSIDE RECORDS SUMMARY | 2022-09-20 14:21 | XMS_ITS | Encounter Summary ---
:1935 Author Organization [facility] Address [address] [place] [address] Care Team Providers Name Role Phone Unavailable Primary Care Provider Unavailable Reason for Referral Outpatient (Routine) - Closed Specialty Diagnoses / Procedures Referred By Contact Refer red To Contact Dermatology Aashish Pandey M.D . 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 [address] [phone] Referral ID Status Reason Start Date Expiration Date Visits Requ ested Visits Authorized [id number] Closed 11/24/2018 11/24/2019 1 1 Encounter Details Date Type Department Care Team Description 02/16/2019 Office Visit Department of Aashish Pandey, Cancer [place] Squamous Cell Personal History (Primary Dx); Dermatology in [place] Keratosis [address] [phone] Social History Tobacco Use Types Packs/Day Years [...] you attend religion or Patient refused 2021 mu-ism services? Do you belong to any clubs or No 05/17/2022 organizations such as religion groups, unions, [employer] or athletic groups, or school groups? How [...] at Date Recorded Male 09/10/2018 8:41 AM BANKING PARALEGAL documented as of this encounter Progress Notes [...] actinic damage involving his face at [facility] in on 12/10/17 under the care of Dr. Hare. 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 The largest of his squamous cell carcinomas involving his left cheek was initially treated with CO2 laser in [place] and then Mohs surgery thereafter. PAST MEDICAL HISTORY 1. 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 Hare at [facility] on 10/27/17 2. Squamous cell carcinoma [...] this could represent an actinic keratosis or profile trimmer's papule. I recommend treatment with liquid nitrogen [...] a total of 23 lesion(s) with two 30-72-rcusgf freeze-thaw cycles of liquid nitrogen cryoth erapy. [...] post Mohs surgery by Dr. Hare at [facility] on 10/27/17 No evidence for recurrence [...] Albert Waller M.D. [address] [place] [phone] (Wo rk) 10/10/2022 Surgery Albetr Waller, Rivera kumar RETROGRADE MJluisDJluis PYELOGRAM- possible [address] LAZO antegrade ureteroscopy, [place], [place] ureteral stent placement [id number] (Wo rk) Scheduled Procedures Name Priority Associated Diagnoses Date/Time RETROGRADE PYELOGRAM Malignant Neoplasm Of 10/10 10:25 AM BANKING PARALEGAL Bladder (HCC) ENDOPYELOTOMY RETROGRADE Malignant Neoplasm Of 1 12/11/2021 10:25 AM BANKING PARALEGAL Bladder (HCC) CYSTOSCOPY WITH Malignant Neoplasm Of 10/10/2022 10:25 AM BANKING PARALEGAL TRANSURETHRAL RESECTION Bladder (HCC) LESION BLADDER Scheduled Referrals Name Type Priority Associated Order Schedule Diagnoses Dermatology office Outpatient Referral Routine Ex pected: visit (clinic) 02/16/2019 (Approximate), Expires: 02/16/2022 documented as of this encounter Visit Diagnoses Diagnosis Cancer Skin Squamous Cell Personal Histo ry - Primary 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
--- OUTSIDE RECORDS SUMMARY | 2022-09-20 14:21 | XMS_ITS | Encounter Summary ---
:1935 Author Organization [facility] Address [address] [place] [address] Care Team Providers Name Role Phone Unavailable [...] you attend zoroastrianism or Patient refused 2021 advent services? Do [...] at Date Recorded Male 09/10/2018 8:41 AM SILL WORKER documented as of this encounter Plan [...] PYELOGRAM Malignant Neoplasm Of 10/10 10:25 AM SILL WORKER Bladder (HCC) ENDOPYELOTOMY RETROGRADE Malignant Neoplasm Of 1 12/11/2021 10:25 AM SILL WORKER Bladder (HCC) CYSTOSCOPY WITH Malignant Neoplasm Of 10/10/2022 10:25 AM SILL WORKER TRANSURETHRAL RESECTION Bladder (HCC) LESION BLADDER documented as of this encounter Procedures Procedure Name Priority Date/Time Associated Comments Diagnosis DERMATOLOGY IMAGE Routine 10/27/2017 12:10 Result s for this EXAM PM SILL WORKER procedure are i n the results section. documented in this encounter Results DERMATOLOGY IMAGE EXAM (10/27/2017 12:10 PM SILL WORKER) Specimen (Source) Anatomical Location Collection Method / Collectio n Time Received Time / Laterality Volume Narrative IIMS - 10/27/2017 4:43 PM SILL WORKER This order has been created and [...]
--- OUTSIDE RECORDS SUMMARY | 2022-09-20 14:21 | XMS_ITS | Encounter Summary ---
:1935 Author Organization [facility] Address [address] [place] [address] Care Team Providers Name Role Phone Unavailable Primary Care Provider Unavailable Reason for Visit Reason Onset Date Comments Derm schedule 09/14/2018 Encounter Details Date Type Department Care Team Description 09/14/2018 Clinical Communication Department of Becky Trinidad [facility] Medicine, [place] [facility], in [address] [address] [place], [place] [phone] (Work) [phone] Social History Tobacco Use Types Packs/Day Years [...] you attend moravian or Patient refused 2021 latter-day services? Do [...] Date Recorded Male 09/10/2018 8:41 AM ROLL CHANGER documented as of this encounter Miscellaneous Notes Telephone Encounter - Brii Heller - 10/01/2018 12:37 PM CST LVM for PT to call back and schedule this order CHANGER Telephone Encounter - Soheila Brown - 09/16/2018 11:33 AM CST Appointment was scheduled CHANGER Telephone Encounter - Danika Bahena R.N. - 09/15/2018 5:48 PM CST Discussed with Dr. Pandey and he would like to open a procedure appointment slot on Friday11/24/18 at 8am to see this patient. Will ask the Appointment Office to reach out to the patient to schedule this appointment. CHANGER Telephone Encounter - Brii Heller - 09/14/2018 9:25 AM CST Pt. Was seen by Katherin today 09/14. Says he needs to be seen in 2 to 3 months. But first available isn't until 01/05. Which is about 3 and a half months. Please let me know when to schedule this patient and I will call him to get it scheduled. CHANGER documented in this encounter Plan of Treatment Upcoming Encounters Date Type Specialty Care Team Description 10/10/2022 Hospital Encounter Albert Waller M.D. [address] [place] [phone] (Wo rk) 10/10/2022 Surgery Albert Waller Palliati ve RETROGRADE M.D. PYELOGRAM- possible [address] LAZO antegrade ureteroscopy, [place], [place] ureteral stent placement [id number] (Wo rk) Scheduled Procedures Name Priority Associated Diagnoses Date/Time RETROGRADE PYELOGRAM Malignant Neoplasm Of 10/10 10:25 AM ROLL CHANGER Bladder (HCC) ENDOPYELOTOMY RETROGRADE Malignant Neoplasm Of 1 12/11/2021 10:25 AM ROLL CHANGER Bladder (HCC) CYSTOSCOPY WITH Malignant Neoplasm Of 10/10/2022 10:25 AM ROLL CHANGER TRANSURETHRAL RESECTION Bladder (HCC) LESION BLADDER documented as of this encounter Visit Diagnoses Not on filedocumented in this encounter
--- OUTSIDE RECORDS SUMMARY | 2022-09-20 14:21 | XMS_ITS | Encounter Summary ---
:1935 Author Organization [facility] Address [address] [place] [address] Care Team Providers Name Role Phone Unavailable Primary Care Provider Unavailable Reason for Referral Outpatient (Routine) - Closed Specialty Diagnoses / Procedures Referred By Contact Refer red To Contact Dermatology Aashish Pandey M.D . [address] [phone] Referral ID Status Reason Start Date Expiration Date Visits Requ ested Visits Authorized [id number] Closed 11/24/2018 11/24/2019 1 1 Scheduling Instructions Recheck a Ks and squamous cell carcinoma FridayFebruary 16 8-830 a.m. KEN HANDLER Reason for Visit Reason Comments Skin Check face and arms Outpatient (Routine) - Closed Specialty Diagnoses / Procedures Referred By Contact Refer red To Contact Dermatology Aashish Pandey M.D . [facility] Region [address] [place] [phone] Referral ID Status Reason Start Date Expiration Date Visits Requ ested Visits Authorized [id number] Closed 09/14/2018 09/14/2019 1 1 Encounter Details Date Type Department Care Team Description 11/24/2018 Office Visit Department of Aashish Pandey, Keratosis Actinic (Primary Dx); Dermatology in [place] Keratosis Seborrheic; [place], [place] [address] [place] [address] Cancer Skin Squamous [place] [id number] [phone] Social History Tobacco Use Types Packs/Day [...] you attend adventist or Patient refused 2021 sabianism services? Do [...] at Date Recorded Male 09/10/2018 8:41 AM CHICKEN HANDLER documented as of this encounter Progress Notes [...] damage involving his face at [facility] in on 12/10/17 under the care [...] dorsum all treated with Mohs surgery at [facility] on 10/27/17. The largest of his squamous cell carcinomas involving his left cheek was initially treated with CO2 laser in [place] and then Mohs surgery thereafter. ?? Allergies Allergen Reactions ??? Penicillins Anaphylaxis PAST MEDICAL HISTORY 1. 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 Hare at [facility] on 10/27/17 2. Squamous cell carcinoma [...] a total of 33 lesion(s) with two 32-16-ztiyfo freeze-thaw cycles of liquid nitrogen cryoth erapy, [...] post Mohs surgery by Dr. Hare at [facility] on 10/27/17 No evidence for [...] Aashish Pandey M.D. . 11/24/2018. 8:32 AM. KEN HANDLER documented in this encounter Plan of Treatment Upcoming Encounters Date Type Specialty Care Team Description 10/10/2022 Hospital Encounter Albert Waller M.D. [address] [place] [phone] (Wo rk) 10/10/2022 Surgery Albert Waller Palliati ve RETROGRADE M.D. PYELOGRAM- possible [address] LAZO antegrade ureteroscopy, [place] ureteral stent placement [id number] (Wo rk) Scheduled Procedures Name Priority Associated Diagnoses Date/Time RETROGRADE PYELOGRAM Malignant Neoplasm Of 10/10 10:25 AM CHICKEN HANDLER Bladder (HCC) ENDOPYELOTOMY RETROGRADE Malignant Neoplasm Of 1 12/11/2021 10:25 AM CHICKEN HANDLER Bladder (HCC) CYSTOSCOPY WITH Malignant Neoplasm Of 10/10/2022 10:25 AM CHICKEN HANDLER TRANSURETHRAL RESECTION Bladder (HCC) LESION BLADDER Scheduled [...]
--- OUTSIDE RECORDS SUMMARY | 2022-09-20 14:21 | XMS_ITS | Encounter Summary ---
:1935 Author Organization [facility] Address [address] [place] [address] Care Team Providers Name Role Phone Unavailable Primary Care Provider Unavailable Reason for Referral Outpatient (Routine) - Closed Specialty Diagnoses / Procedures Referred By Contact Refer red To Contact Dermatology Aashish Pandey M.D . [facility] Region [address] [place] [address] Referral ID Status Reason Start Date Expiration Date Visits Requ ested Visits Authorized [id number] Closed 09/14/2018 09/14/2019 1 1 MAN Reason for Visit Reason Comments Actinic Keratosis Encounter Details Date Type Department Care Team Description 09/14/2018 Office Visit Department of Aashish Pandey, Keratosis Actinic (Primary Dx); Dermatology in [place] Keratosis Seborrheic; [place], [place] [address] [facility] Cancer Skin Squamous Cell Personal Histo ry [address] [place] [phone] Social History Tobacco Use Types Packs/Day Years [...] you attend spiritism or Patient refused 2021 sikh services? Do you belong to any clubs or No 05/17/2022 organizations such as spiritism groups, unions, fraEcovision or athletic groups, or school groups? How [...] at Date Recorded Male 09/10/2018 8:41 AM RACKMAN documented as of this encounter Progress Notes [...] damage involving his face at [facility] in November 2017 under the care of Dr. Hare. 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 The patient does not use sunscreen. The largest of his squamous cell carcinomas involving his left cheek was initially treated with CO2 laser in [place] and then Mohs surgery thereafter. He has also had squamous cell carcinomas as noted above involving his face and more specifically the right infraorbital area, left eyebrow, and right nasal dorsum all treated with Mohs surgery [place] in October 2017. PAST MEDICAL HISTORY 1. 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 Squamous cell [...] Aashish Pandey M.D. . 09/14/2018. 8:26 AM. MAN documented in this encounter Plan of Treatment Upcoming Encounters Date Type Specialty Care Team Description 10/10/2022 Hospital Encounter Albert Waller M.D. [address] [place] [phone] (Wo rk) 10/10/2022 Surgery Albert Waller Palliati ve RETROGRADE M.D. PYELOGRAM- possible [address]ZO antegrade ureteroscopy, [place] Eason ureteral stent placement [id number] (Wo rk) Scheduled Procedures Name Priority Associated Diagnoses Date/Time RETROGRADE PYELOGRAM Malignant Neoplasm Of 10/10 10:25 AM RACKMAN Bladder (HCC) ENDOPYELOTOMY RETROGRADE Malignant Neoplasm Of 1 12/11/2021 10:25 AM RACKMAN Bladder (HCC) CYSTOSCOPY WITH Malignant Neoplasm Of 10/10/2022 10:25 AM RACKMAN TRANSURETHRAL RESECTION Bladder (HCC) LESION BLADDER Scheduled [...]
--- OUTSIDE RECORDS SUMMARY | 2022-09-20 14:21 | XMS_ITS | Encounter Summary ---
:1935 Author Organization [facility] Address [address] [place] [address] Care Team Providers Name Role Phone Unavailable Primary Care Provider Unavailable Encounter Details Date Type Department Care Team Description 12/10/2017 Hospital Encounter HX RST DERM SURG OP [facility] Ra yandel Hare M.D. [address] [place] [phone] (Wo rk) Social History Tobacco Use Types [...] you attend yarsanism or Patient refused 2021 christian services? Do [...] at Date Recorded Male 09/10/2018 8:41 AM CLAIM ANALYST documented as of this encounter Last Filed Vital Signs Vital Sign Reading Time Taken Comments Blood Pressure 122/70 12/10/2017 1:15 PM CLAIM ANALYST Vital sign result from Clinical Notes. Pulse 66 12/10/2017 1:15 PM CLAIM ANALYST Vital sign result from Clinical Notes. Temperature [...] PYELOGRAM Malignant Neoplasm Of 10/10 10:25 AM CLAIM ANALYST Bladder (HCC) ENDOPYELOTOMY RETROGRADE Malignant Neoplasm Of 1 12/11/2021 10:25 AM CLAIM ANALYST Bladder (HCC) CYSTOSCOPY WITH Malignant Neoplasm Of 10/10/2022 10:25 AM CLAIM ANALYST TRANSURETHRAL RESECTION Bladder (HCC) LESION BLADDER documented as of this encounter Visit Diagnoses Not on filedocumented in this encounter
--- OUTSIDE RECORDS SUMMARY | 2022-09-20 14:21 | XMS_ITS | Encounter Summary ---
:1935 Author Organization [facility] Address [address] [place] [address] Care Team Providers Name Role Phone Unavailable Primary Care Provider Unavailable Encounter Details Date Type Department Care Team Description 10/27/2017 Hospital Encounter HX RST DERM SURG OP [facility] Ra yandel Hare M.D. [address] [place] [phone] (Wo rk) Social History Tobacco Use Types [...] attend latter day or Patient refused 2021 religion services? Do [...] Date Recorded Male 09/10/2018 8:41 AM TIE HACKER documented as of this encounter Last Filed Vital Signs Vital Sign Reading Time Taken Comments Blood Pressure 135/75 10/27/2017 8:00 AM TIE HACKER Vital sign result from Clinical Notes. Pulse 71 10/27/2017 8:00 AM TIE HACKER Vital sign result from Clinical Notes. Temperature [...] PYELOGRAM Malignant Neoplasm Of 10/10 10:25 AM TIE HACKER Bladder (HCC) ENDOPYELOTOMY RETROGRADE Malignant Neoplasm Of 1 12/11/2021 10:25 AM TIE HACKER Bladder (HCC) CYSTOSCOPY WITH Malignant Neoplasm Of 10/10/2022 10:25 AM TIE HACKER TRANSURETHRAL RESECTION Bladder (HCC) LESION BLADDER documented as of this encounter Visit Diagnoses Not on filedocumented in this encounter
--- OUTSIDE RECORDS SUMMARY | 2022-09-20 14:21 | XMS_ITS | Encounter Summary ---
:1935 Author Organization [facility] Address [address] [place] [address] Care Team Providers Name Role Phone Unavailable Primary Care Provider Unavailable Encounter Details Date Type Department Care Team Description 02/12/2016 Hospital Encounter HX RST DERM SURG OP [facility] Ra yandel Hare M.D. [address] [place] [phone] (Wo rk) Social History Tobacco Use Types [...] you attend samaritan or Patient refused 2021 sikhism services? Do [...] at Date Recorded Male 09/10/2018 8:41 AM LIME BOILER documented as of this encounter Last Filed [...] Albert Waller M.D. [address] [place] [phone] (Octavio christensen) 10/10/2022 Surgery Albert Waller Palliati ve RETROGRADE M.D. PYELOGRAM- possible [address] LAZO antegrade ureteroscopy, JAIMEE Eason ureteral stent placement [id number] (Octavio christensen) Scheduled Procedures Name Priority Associated Diagnoses Date/Time RETROGRADE PYELOGRAM Malignant Neoplasm Of 10/10 10:25 AM LIME BOILER Bladder (HCC) ENDOPYELOTOMY RETROGRADE Malignant Neoplasm Of 1 12/11/2021 10:25 AM LIME BOILER Bladder (HCC) CYSTOSCOPY WITH Malignant Neoplasm Of 10/10/2022 10:25 AM LIME BOILER TRANSURETHRAL RESECTION Bladder (HCC) LESION BLADDER documented as of this encounter Visit Diagnoses Not on filedocumented in this encounter
--- OUTSIDE RECORDS SUMMARY | 2022-09-20 14:21 | XMS_ITS | Encounter Summary ---
:1935 Author Organization [facility] Address [address] [place] [address] Care Team Providers Name Role Phone Unavailable [...] you attend methodist or Patient refused 2021 caodaism services? Do [...] at Date Recorded Male 09/10/2018 8:41 AM RENAL MEDICINE SPECIALIST documented as of this encounter Plan [...] PYELOGRAM Malignant Neoplasm Of 10/10 10:25 AM RENAL MEDICINE SPECIALIST Bladder (HCC) ENDOPYELOTOMY RETROGRADE Malignant Neoplasm Of 1 12/11/2021 10:25 AM RENAL MEDICINE SPECIALIST Bladder (HCC) CYSTOSCOPY WITH Malignant Neoplasm Of 10/10/2022 10:25 AM RENAL MEDICINE SPECIALIST TRANSURETHRAL RESECTION Bladder (HCC) LESION BLADDER documented as of this encounter Procedures Procedure Name Priority Date/Time Associated Comments Diagnosis DERMATOLOGY IMAGE Routine 10/27/2017 12:05 Result s for this EXAM PM RENAL MEDICINE SPECIALIST procedure are i n the results section. documented in this encounter Results DERMATOLOGY IMAGE EXAM (10/27/2017 12:05 PM RENAL MEDICINE SPECIALIST) Specimen (Source) Anatomical Location Collection Method / Collectio n Time Received Time / Laterality Volume Narrative IIMS - 10/27/2017 4:43 PM RENAL MEDICINE SPECIALIST This order has been created and [...]
--- OUTSIDE RECORDS SUMMARY | 2022-09-20 14:23 | XMS_ITS | Encounter Summary ---
:1935 Author Organization [facility] Address [address], [place] [address] Care Team Providers Name Role Phone Yamila English MD Primary Care Provider Reason for Referral Procedure/Equipment (Routine) - Incomplete Specialty Diagnoses / Procedures Referred By Contact Refer red To Contact Diagnoses Pain of right hip joint Right knee pain, unspecified chronicity Bryon Richardson MD Procedures XR Pelvis W Rt Lateral Hip [address] [place], [place] [address] Referral ID Status Reason Start Date Expiration Date Visits V isits Requested Authorized [id number] Incomplete 05/02/2019 07/31/2020 1 1 Procedure/Equipment (Routine) - Incomplete Specialty Diagnoses / Procedures Referred By Contact Refer red To Contact Diagnoses Pain of right hip joint Right knee pain, unspecified chronicity Bryon Richardson MD Procedures XR Knee Lt 1-2 Views Comparison [address] [place] [address] Referral ID Status Reason Start Date Expiration Date Visits V isits Requested Authorized [id number] Incomplete 05/02/2019 07/31/2020 1 1 Procedure/Equipment (Routine) - Incomplete Specialty Diagnoses / Procedures Referred By Contact Refer red To Contact Diagnoses Pain of right hip joint Right knee pain, unspecified chronicity Bryon Richardson MD Procedures XR Knee Rt 3 Views [address] [facility] [facility] [place], [place] [address] Referral ID Status Reason Start Date Expiration Date Visits V isits Requested Authorized [id number] Incomplete 05/02/2019 07/31/2020 1 1 Reason for Visit Reason Comments Knee Pain or Injury right Encounter Details Date Type Department Care Team Description 05/02/2019 Office Visit [facility] Bryon Richardson, [place] k pain radiating to right leg (Primary Dx); Urgent Care MD Pain of right hip joint; [address] Right knee pain, unspecified chronicity; [place], [place] [address] [place], [place] Posterior right knee pain; [phone] [address] Hip injury, right, initial encounter [phone] (Wo rk) Social History Tobacco Use Types [...] for all medical requests and questions at [phone] MRI Scheduling: To schedule an MRI at [facility] please call [phone] Paperwork Requests: Questions regarding FMLA or disability paperwork please call [phone] Phone lines are answered 8AM to 5PM Friday - Friday Workers??? Compensation: Please contact our department for any Work Comp concerns at Email: [email or web address] Right osteo arthritis knee Make appointment for injection in may Right lumbar radiculopathy Call back for MRI documented in this encounter Progress Notes Bryon Richardson MD - 05/02/2019 12:00 PM CDT NAME: BLAKE SUTTON MR#: [id number] CSN: [id number] AUTHENTICATING CLINICIAN: Bryon Richardson MD CONFIRM #: [...] compartment degenerative changes with joint space narrowing, xzfd-dg-ptte articulation and osteophyte formation, similar. Mild joint [...] artment degenerative change with joint space narrowing, bbxu-bv-uirx articulation and osteophyte formation, similar. Mild joint [...] artment degenerative change with joint space narrowing, hjrc-rp-ezto articulation and osteophyte formation, similar. Mild joint [...] artment degenerative change with joint space narrowing, dggr-ca-hgix articulation and osteophyte formation, similar. Mild joint [...] artment degenerative change with joint space narrowing, tvwb-ec-wuka articulation and osteophyte formation, similar. Mild joint [...] chronicity documented in this encounter Care Teams Video Game Maker Relationship Specialty Start Date End Date Yamila English MD PCP - General 10/11/[address] [place], [place] [id number] documented as of this encounter
--- OUTSIDE RECORDS SUMMARY | 2022-09-20 14:23 | XMS_ITS | Clinical Summary ---
:1935 Author Organization [facility] Address [address], [place] [address] Care Team Providers Name Role Phone Yamila [...] for each transition of care or referral. [place] Allergies Active Allergy Reactions Severity Noted Date [...] Address T ype Group Dates MEDICARE MEDICARE [id number] 2012-Prese Med icare nt [employer] [facility] [place] COMM[employer]CIAL [id number] 2012-[employer] [place] [address] Care Teams Tutoring Manager Relationship Specialty Start Date End Date Yamila English MD PCP - General 10/11/[address] [place] [address]
--- OUTSIDE RECORDS SUMMARY | 2022-09-20 14:23 | XMS_ITS | Encounter Summary ---
:1935 Author Organization [facility] Address [address] [place] [address] Care Team Providers Name Role Phone Unavailable Primary Care Provider Unavailable Reason for Visit Reason Onset Date Comments Refill 02/13/2011 Encounter Details Date Type Department Care Team Description 02/13/2011 Refill [facility] Bryon Villatoro MD Refill [facility] [address] [facility] [address] [place] [address] [place], [place] [phone] Social History Tobacco Use Types Packs/Day Years Used Date Smoking Tobacco: Never Assessed Sex Assigned at Date Recorded Not on file documented as of this encounter Plan of Treatment Not on filedocumented as of this encounter Visit Diagnoses Not on filedocumented in this encounter
--- OUTSIDE RECORDS SUMMARY | 2022-09-20 14:23 | XMS_ITS | Clinical Summary ---
:1935 Author Organization [facility] [place] [address] Care Team Providers Name Role Phone Slava [...] if goal <70 needed for Chest Pain. torsemide (DEMADEX) Take 20 mg by 0 08/02/202208/02 Active 20 mg tablet mouth. 3 tamsulosin (FLOMAX) Take 0.4 mg 0 06/14/2022 Active 0.4 mg capsule by mouth. levothyroxine Take 150 mcg 0 08/20/2022 Ac tive (SYNTHROID) 150 mcg by mouth once tablet daily. finasteride Take 5 mg by 0 06/14/2022 Acti ve (PROSCAR) 5 mg mouth. tablet amLODIPine Take 1 tablet 90 Tablet 3 09/03/2022 Acti ve (NORVASC) 2.5 mg by mouth once tabletIndications: daily Hypertension furosemide (LASIX) Take 1 Tablet 30 Tablet 3 03/08/2022 Discontinued 20 mg (20 mg) by 2 (*Patient states tabletIndications: mouth once no longer Acute systolic daily if takin g/Not on heart failure (HC) needed. s ending facility list) amLODIPine Take 1 Tablet 90 Tablet 0 03/08/2022 Disc ontinued (NORVASC) 2.5 mg (2.5 mg) by 2 tabletIndications: mouth once Hypertension daily. 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 01/08/2022 Dilated cardiomyopathy 12/07/2021 Overview: LVEF 20-25% per TTE 12/07/2021 - etiology unclear Moderate tricuspid regurgitation 12/07/2021 Encounters Date Type Specialty Care Team Description 09/20/2022 Travel 09/16/2022 Telephone Patti Zaman MD Cardiov ascular Diagnostic Testing 09/01/2022 Refill Luis Miguel Lanier MD Refill [...] in contact with No / Unsu re 09/20/2022 2:09 PM TSA SCREENER someone who was confirmed or suspected to [...] Group MEDICARE PART B MEDICARE PART B [id number] 2002-Present ATTN: CLAIMS - HB USE ONLY HB ONLY [address] [place] [address] MEDICARE - PB MEDICARE PB [id number] 2002-Present ATT N: CLAIMS USE ONLY ONLY [address] [place] [address] [facility] [id number] 2015-Presen [address] [place] [address] Advance Directives Documents on File Type Date Recorded Patient Shipmaster Explanati on Healthcare Directive 08/02/2021 08/02/2021 Latest Code Status on File Code Status Date Activated Date Inactivated Comments Full Code 01/08/2022 11:08 AM 01/08/2022 6:14 PM Code Status Discussion: Reviewed Preferences Care Teams Facility Designer Relationship Specialty Start Date End Date Slava Edwards MD PCP - General Family Practice 12/12/[address] [place] [address]
--- OUTSIDE RECORDS SUMMARY | 2022-09-20 14:23 | XMS_ITS | Encounter Summary ---
:1935 Author Organization [facility] Address [address], [place] [address] Care Team Providers Name Role Phone Yamila English MD Primary Care Provider Reason for Visit Procedure/Equipment (Routine) - Incomplete Specialty Diagnoses / Procedures Referred By Contact Refer red To Contact Diagnoses Pain of right hip joint Right knee pain, unspecified chronicity Bryon Richardson MD Procedures XR Pelvis W Rt Lateral Hip [address] [place] [address] Referral ID Status Reason Start Date Expiration Date Visits V isits Requested Authorized [id number] Incomplete 05/02/2019 07/31/2020 1 1 Encounter Details Date Type Department Care Team Description 05/02/2019 Ancillary [facility] Bryon Richardson, Pain of right hip joint; Procedure [address] Right knee pain, unspecified chronicity Drive [address] [place] [place] [address] [phone] Social History Tobacco Use Types Packs/Day Years [...] chronicity documented in this encounter Care Teams Environmental Construction Engineer Relationship Specialty Start Date End Date Yamila English MD PCP - General 10/11/[address] [place] [address] documented as of this encounter
--- OUTSIDE RECORDS SUMMARY | 2022-09-20 14:23 | XMS_ITS | Encounter Summary ---
:1935 Author Organization [facility] Address [address], [place] [address] Care Team Providers Name Role Phone Yamila English MD Primary Care Provider Encounter Details Date Type Department Care Team Description 10/11/2013 Imaging [facility] Knee pain [address] [place], [place] [address] Social History Tobacco Use Types Packs/Day Years Used Date Smoking Tobacco: Never Assessed Sex Assigned at Date Recorded Not on file documented as of this encounter Plan of Treatment Not on filedocumented as of this encounter Procedures Procedure Name Priority Date/Time Associated Comments Diagnosis XR KNEE LT 1-2 VIEWS Routine 10/11/2013 12:05 PM Knee pain Results for this COMPARISON NETWORK SERVICES PROJECT MANAGER procedure are i n the results section. XR KNEE RT 3 VIEWS Routine 10/11/2013 12:05 PM Knee pain Re sults for this NETWORK SERVICES PROJECT MANAGER procedure are i n the results section. documented in this encounter Results XR Knee Lt 1-2 Views Comparison (10/11/2013 12:05 PM NETWORK SERVICES PROJECT MANAGER) Anatomical Region Laterality Modality Lower Extremity, Knee Other Specimen (Source) Anatomical Location Collection Method / Collectio n Time Received Time / Laterality Volume Narrative 10/14/2013 8:05 PM NETWORK SERVICES PROJECT MANAGER Three views of the right knee: [...] Knee Rt 3 Views (10/11/2013 12:05 PM NETWORK SERVICES PROJECT MANAGER) Anatomical Region Laterality Modality Lower Extremity, Knee Other Specimen (Source) Anatomical Location Collection Method / Collectio n Time Received Time / Laterality Volume Narrative 10/14/2013 8:05 PM NETWORK SERVICES PROJECT MANAGER Three views of the right knee: [...] leg documented in this encounter Care Teams Powder Press Operator Relationship Specialty Start Date End Date Yamila English MD PCP - General 10/11/[address] [place] [address] documented as of this encounter
--- OUTSIDE RECORDS SUMMARY | 2022-09-20 14:23 | XMS_ITS | Encounter Summary ---
:1935 Author Organization [facility] Address [address], [place] [address] Care Team Providers Name Role Phone Yamila English MD Primary Care Provider Reason for Visit Procedure/Equipment (Routine) - Incomplete Specialty Diagnoses / Procedures Referred By Contact Refer red To Contact Diagnoses Pain of right hip joint Right knee pain, unspecified chronicity Bryon Richardson MD Procedures XR Knee Rt 3 Views [address] [place] [address] Referral ID Status Reason Start Date Expiration Date Visits V isits Requested Authorized [id number] Incomplete 05/02/2019 07/31/2020 1 1 Encounter Details Date Type Department Care Team Description 05/02/2019 Ancillary [facility] Bryon Richardson, Pain of right hip joint; Procedure [address] Right knee pain, unspecified chronicity Drive [address] [place] [address] [phone] Social History Tobacco Use Types Packs/Day Years [...] artment degenerative change with joint space narrowing, ovrb-ef-rysw articulation and osteophyte formation, similar. Mild joint [...] artment degenerative change with joint space narrowing, thpg-xq-afzr articulation and osteophyte formation, similar. Mild joint [...] artment degenerative change with joint space narrowing, vuit-ie-cdoy articulation and osteophyte formation, similar. Mild joint [...] artment degenerative change with joint space narrowing, oajs-jp-keac articulation and osteophyte formation, similar. Mild joint [...] chronicity documented in this encounter Care Teams Test Lead Application Testing Relationship Specialty Start Date End Date Yamila English MD PCP - General 10/11/[address] [place] [id number] documented as of this encounter
--- OUTSIDE RECORDS SUMMARY | 2022-09-20 14:23 | XMS_ITS | Encounter Summary ---
:[address] [facility] Address [address] [place] [address] Care Team Providers Name Role Phone Yaneth English MD Primary Care Provider Reason for Visit Reason Comments INJURY, HIP Back Pain INJURY, KNEE Encounter Details Date Type Department Care Team Description 10/11/2013 Office Visit [facility] David Francisco, Emeka finn joint disease of knee (Primary Dx); Urgent Care MD Knee pain [address] [place] [address] [place] [address] [phone] (Wo rk) Social History Tobacco Use Types Packs/Day Years Used Date Smoking Tobacco: Never Assessed Sex Assigned at Date Recorded Not on file documented as of this encounter Last Filed Vital Signs Vital Sign Reading Time Taken Comments Blood Pressure 120/86 10/11/2013 11:23 AM EXPORT FREIGHT SPECIALIST Pulse - - Temperature 37.1 ??C (98.8 ??F) 10/11/2013 11:23 AM EXPORT FREIGHT SPECIALIST Respiratory Rate - - Oxygen Saturation - - Inhaled Oxygen Concentration - - Weight 93.9 kg (207 lb) 10/11/2013 11:23 AM EXPORT FREIGHT SPECIALIST Height 168.9 cm (5' 6.5) 10/11/2013 11:23 AM EXPORT FREIGHT SPECIALIST Body Mass Index 32.91 10/11/2013 11:23 AM EXPORT FREIGHT SPECIALIST documented in this encounter Patient Instructions Patient InstructionsLiberty Cedeño - 10/11/2013 1:[address] David Francisco MD Sports & Orthopaedic Medicine [facility] Varsity Baseball Coach: Colette Loges Please fax all paperwork correspondence to [phone] [facility] Nurse Line: [phone] Please contact [facility] Nurse line for all requests and questions. Please contact your Pharmacy for all medication refill requests RT FREIGHT SPECIALIST documented in this encounter Progress Notes David Francisco MD - 10/11/2013 9:46 PM CST Progress Notes signed by David Francisco MD at 10/14/132013 Author: David Francisco MD Service: (none) Author Type: Physician Filed: 10/14/132013 Note Time: 10/12/13828 Status: Signed Sweat Box Attendant: David Francisco MD (Physician) NAME: BLAKE SUTTON MR#: [id number] CSN: [id number] AUTHENTICATING CLINICIAN: David Francisco MD CONFIRM #: [...] verbalized understanding. CWM:URIEL C: R:10/11/13 21:57 CONFIRM#:[id number] RT FREIGHT SPECIALIST documented in this encounter Plan of Treatment Not on filedocumented as of this encounter Visit Diagnoses Diagnosis Degenerative joint disease of knee - Idalia yaneth Osteoarthrosis, unspecified whether gene ralized or localized, lower leg Knee pain Pain in joint, lower leg documented in this encounter Care Teams Account Representative Relationship Specialty Start Date End Date Yaneth English MD PCP - General 10/11/[address] [place] [id number] documented as of this encounter
== END 2022-09-20 13:39 | disposition home or self-care (01) ==
LOC: RAD 13:38
PROVIDERS: PCP Family Medicine; Visit Provider Student in an Organized Health Care Education/Training Program
DX: I42.0 Dilated cardiomyopathy (principal); I51.7 Cardiomegaly
CPT/HCPCS: 93306

== ENCOUNTER 2022-09-27 10:10 | Outpatient (CLI) | payer MEDICARE, OTHER, SELFPAY ==
--- OUTSIDE RECORDS SUMMARY | 2022-09-27 09:24 | XMS_ITS | Encounter Summary ---
:1935 Author Organization [facility] Address [address] [place] [address] Care Team Providers Name Role Phone Elsewhere, Pcp Primary Care Provider Unavailable Encounter Details Date Type Department Care Team Description 09/06/2022 Hospital Encounter Department of Xenia Waller Heart Laboratory Medicine Mariano Hart Failure (HCC) and Pathology, [address] VIOLET Correia [facility] in [place], [place] [address] [address] [facility] [phone] [place], [place] (Work) [phone] Social History Tobacco Use Types Packs/Day Years [...] you attend tenriism or Patient refused 2021 methodist services? Do [...] at Date Recorded Male 09/10/2018 8:41 AM COMPENSATION AND HRIS ANALYST documented as of this encounter Medications [...] Encounters Date Type Specialty Care Team Description 09/30/2022 Nurse Only Urology Albert Waller M.D. [address] [place] [phone] 09/30/2022 Appointment Laboratory Medicine Albert Waller M.D. [address] [place] [phone] 10/10/2022 Hospital Encounter Albert Waller M.D. [address] [place] [id number] 10/10/2022 Surgery [facility] Albert Heredia M.D. RETROGRADE [address] [place]ZO PYELOGRAM- possible [place] Eason antegrade [id number] ureteroscopy, ureteral stent (Work) placement Scheduled Procedures Name Priority Associated Diagnoses Date/Time RETROGRADE PYELOGRAM Malignant Neoplasm Of 12/22 /2022 10:25 AM COMPENSATION AND HRIS ANALYST Bladder (HCC) ENDOPYELOTOMY RETROGRADE Malignant Neoplasm Of 1 12/11/2021 10:25 AM COMPENSATION AND HRIS ANALYST Bladder (HCC) CYSTOSCOPY WITH Malignant Neoplasm Of 10/10/2022 10:25 AM COMPENSATION AND HRIS ANALYST TRANSURETHRAL RESECTION Bladder (HCC) LESION BLADDER documented as of this encounter Procedures Procedure Name Priority Date/Time Associated Diagnosis Comme nts CBC WITHOUT Routine 09/06/2022 11:55 AM Congestive Heart Resu lts for this DIFFERENTIAL, B COMPENSATION AND HRIS ANALYST Failure (HCC) procedure a re in the results section. BASIC METABOLIC Routine 09/06/2022 11:55 AM Congestive Heart R esults for this PANEL, S/P COMPENSATION AND HRIS ANALYST Failure (HCC) procedure are in the results section. documented in this encounter Results (ABNORMAL) Basic Metabolic Panel (09/06/2022 11:55 AM COMPENSATION AND HRIS ANALYST) Analysis Performed At Patho logist Time Signature Potassium, S 5.3 (H) 3.6 - 5.2 09/06/2022 DTL mmol/L 1:03 PM COMPENSATION AND HRIS ANALYST Sodium, S 143 135 - 145 09/06/2022 DTL mmol/L 1:03 PM COMPENSATION AND HRIS ANALYST Chloride, S 101 98 - 107 09/06/2022 DTL mmol/L 1:03 PM COMPENSATION AND HRIS ANALYST Bicarbonate, S 32 (H) 22 - 29 09/06/2022 DTL mmol/L 1:03 PM COMPENSATION AND HRIS ANALYST Anion Gap 10 7 - 15 09/06/2022 DTL 1:03 PM COMPENSATION AND HRIS ANALYST BUN (Blood Urea 41 (H) 8 - 24 09/06/2022 DTL Nitrogen), S mg/dL 1:03 PM COMPENSATION AND HRIS ANALYST Creatinine 1.48 (H) 0.74 - 09/06/2022 DTL 1.35 mg/dL 1:03 PM COMPENSATION AND HRIS ANALYST Estimated GFR 46 (L) >=60 09/06/2022 DTL (eGFR) mL/min/BSA 1:03 PM COMPENSATION AND HRIS ANALYST Comment: Estimated GFR calculated using the 2020 CKD_EPI creatinine equation. Calcium, Total, S 9.1 8.8 - 10.2 mg/dL 09/06/2022 1:03 PM COMPENSATION AND HRIS ANALYST DTL Glucose, S 244 (H) 70 - 140 mg/dL 09/06/2022 1:03 PM COMPENSATION AND HRIS ANALYST D TL Specimen Anatomical Collection Method Collection Time Receive d Time (Source) Location / / Volume Laterality Blood (Blood, 09/06/2022 11:55 09/06/2022 Venous) AM COMPENSATION AND HRIS ANALYST 12:41 PM COMPENSATION AND HRIS ANALYST Albert Waller M.D. LAB BLOOD ADD-ON Performing Organization Address City/[facility] Phon e Number [facility] - [address] [address] [facility] (ABNORMAL) CBC without Differential (09/06/2022 11:55 AM COMPENSATION AND HRIS ANALYST) [facility] gist Method Time Signature Hemoglobin 9.5 (L) 13.2 - 09/06/2022 DTL 16.6 g/dL 12:25 PM COMPENSATION AND HRIS ANALYST Hematocrit 32.6 (L) 38.3 - 09/06/2022 DTL 48.6 % 12:25 PM COMPENSATION AND HRIS ANALYST Erythrocytes 3.06 (L) 4.35 - 09/06/2022 DTL 5.65 12:25 PM COMPENSATION AND HRIS ANALYST x10(12)/L MCV 106.5 (H) 78.2 - 09/06/2022 DTL 97.9 fL 12:25 PM COMPENSATION AND HRIS ANALYST RBC Distrib Width 21.6 (H) 11.8 - 09/06/2022 DTL 14.5 % 12:25 PM COMPENSATION AND HRIS ANALYST Platelet Count 607 (H) 135 - 317 09/06/2022 DTL x10(9)/L 12:25 PM COMPENSATION AND HRIS ANALYST Leukocytes 10.1 (H) 3.4 - 9.6 09/06/2022 DTL x10(9)/L 12:25 PM COMPENSATION AND HRIS ANALYST Specimen Anatomical Collection Method Collection Time Receive d Time (Source) Location / / Volume Laterality Blood (Blood, 09/06/2022 11:55 09/06/2022 Venous) AM COMPENSATION AND HRIS ANALYST 12:18 PM COMPENSATION AND HRIS ANALYST Albert Waller M.D. LAB BLOOD ADD-ON Performing Organization Address City/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
[2022-09-27 12:54] LABS: Chloride* 105 mmol/L (96-114); Sodium* 140 mmol/L (135-149)
[2022-09-27 12:55] LABS: Potassium* 4.9 mmol/L (3.6-5.1)
[2022-09-27 12:57] LABS: Blood Urea Nitrogen* 44 mg/dL (7-30); Carbon Dioxide* 29 mmol/L (20-32); Creatinine* 1.3 mg/dL (0.5-1.5); Estimated Glomerular Filt Rate 54 ml/min
[2022-09-27 12:58] LABS: Calcium* 8.7 mg/dL (8.4-10.6); Glucose* 144 mg/dL (60-115)
[2022-09-27 13:04] LABS: NT Pro B Type NatriureticPept* 4770 PG/mL (0-450)
== END 2022-09-27 10:11 | disposition home or self-care (01) ==
PROVIDERS: PCP Family Medicine; Visit Provider Family Medicine
DX: I50.40 Unspecified combined systolic (congestive) and diastolic (congestive) heart failure (principal); E03.9 Hypothyroidism, unspecified; E11.9 Type 2 diabetes mellitus without complications; I10 Essential (primary) hypertension; D64.9 Anemia, unspecified
CPT/HCPCS: 80048; 83880; 84443

== ENCOUNTER 2022-10-25 08:18 | Outpatient (CLI) | payer MEDICARE, SELFPAY ==
[2022-10-25 13:22] LABS: Chloride* 101 mmol/L (96-114); Sodium* 137 mmol/L (135-149)
[2022-10-25 13:23] LABS: Potassium* 4.9 mmol/L (3.6-5.1)
[2022-10-25 13:25] LABS: Creatinine* 1.4 mg/dL (0.5-1.5); Estimated Glomerular Filt Rate 49 ml/min
[2022-10-25 13:26] LABS: Blood Urea Nitrogen* 41 mg/dL (7-30); Calcium* 8.6 mg/dL (8.4-10.6); Carbon Dioxide* 28 mmol/L (20-32); Glucose* 115 mg/dL (60-115)
[2022-10-25 13:41] LABS: NT Pro B Type NatriureticPept* 6270 pg/mL
== END 2022-10-25 08:19 | disposition home or self-care (01) ==
LOC: LKVREF 08:41
PROVIDERS: PCP Family Medicine; Visit Provider Family Medicine
DX: D45 Polycythemia vera (principal); D64.9 Anemia, unspecified; I42.9 Cardiomyopathy, unspecified; I50.40 Unspecified combined systolic (congestive) and diastolic (congestive) heart failure; I50.9 Heart failure, unspecified; N39.0 Urinary tract infection, site not specified; N18.31 Chronic kidney disease, stage 3a
CPT/HCPCS: 80048; 83880; 84443; 87086; 87186

== ENCOUNTER 2022-11-04 12:01 | Outpatient (RCR) | payer MEDICARE, OTHER, SELFPAY ==
[2022-11-04 12:35] LABS: Basophils Percent Auto 0.6 % (0.0-3.0); Eosinophils Percent Auto 2.2 % (0.0-7.0); Hematocrit 32.1 % (37.0-53.0); Hemoglobin* 9.3 gm/dL (13.5-17.5); Immature Granulocytes Pct Auto 0.5 %; Lymphocytes Percent Auto 3.2 % (20-44); Mean Corpuscular HGB Conc 29 gm/dL (32-36); Mean Corpuscular Hemoglobin 30 pg (26-34); Mean Corpuscular Volume 103 fL (80-100); Monocytes Percent Auto 2.3 % (0.0-11.0); Neutrophils Percent Auto 91.2 % (42.0-72.0); Platelet Count* 625 K/uL (140-440); RDW Coefficient of Variation % 18.9 % (11.5-15.5); Red Blood Count 3.13 m/uL (4.30-5.90); White Blood Count* 11.41 K/uL (4.50-11.00)
[2022-11-04 13:01] LABS: Slide Review Reflex Yes
[2022-11-04 13:02] LABS: Slide Review Acceptable Review (Acceptable)
--- NOTE | 2022-12-05 12:03 | ONC.NURNOTE ---
Miesha called for results Reviewed by this nurse plts improved, and Hg stabilized provider to review today continues on 1000 mg hydrea daily, with next lab due in 1 month for hydrea monitoring
--- NOTE | 2023-01-31 15:09 | ONC.NURNOTE ---
CBC reviewed by Dr. Little on 01/30/23, called results to Miesha, pt's spouse. Per Sidney, next step would be bone marrow biopsy if/when pt is ready to pursue that next step. Per Miesha, they do not want a bone marrow biopsy at this time.
== END 2023-05-03 23:59 | disposition home or self-care (01) ==
LOC: CCIC 12:01
PROVIDERS: Clinical Nurse Specialist; PCP Family Medicine; Visit Provider Internal Medicine Medical Oncology
DX: D45 Polycythemia vera (principal); I50.40 Unspecified combined systolic (congestive) and diastolic (congestive) heart failure
CPT/HCPCS: 36415; 85025; 99212; 99214

== ENCOUNTER 2022-11-22 10:38 | Outpatient (CLI) | payer MEDICARE, OTHER, SELFPAY ==
[2022-11-22 12:37] LABS: Chloride* 102 mmol/L (96-114)
[2022-11-22 12:38] LABS: Potassium* 5.1 mmol/L (3.6-5.1); Sodium* 136 mmol/L (135-149)
[2022-11-22 12:40] LABS: Creatinine* 1.2 mg/dL (0.5-1.5); Estimated Glomerular Filt Rate 59 ml/min
[2022-11-22 12:41] LABS: Blood Urea Nitrogen* 32 mg/dL (7-30); Calcium* 8.5 mg/dL (8.4-10.6); Carbon Dioxide* 29 mmol/L (20-32); Glucose* 258 mg/dL (60-115)
[2022-11-22 15:44] LABS: NT Pro B Type NatriureticPept* 4640 pg/mL
[2022-11-22 19:33] LABS: Basophils Percent Auto 0.6 % (0.0-3.0); Eosinophils Percent Auto 2.3 % (0.0-7.0); Hematocrit 33.6 % (37.0-53.0); Hemoglobin* 9.4 gm/dL (13.5-17.5); Lymphocytes Percent Auto 2.4 % (20-44); Mean Corpuscular HGB Conc 28 gm/dL (32-36); Mean Corpuscular Hemoglobin 29 pg (26-34); Mean Corpuscular Volume 103 fL (80-100); Monocytes Percent Auto 2.7 % (0.0-11.0); Platelet Count* 992 K/uL (140-440); Red Blood Count 3.25 m/uL (4.30-5.90); White Blood Count* 19.78 K/uL (4.50-11.00)
[2022-11-22 19:49] LABS: Slide Review Reflex Yes
[2022-11-22 20:45] LABS: Slide Review Acceptable Review (Acceptable)
== END 2022-11-22 10:39 | disposition home or self-care (01) ==
PROVIDERS: PCP Family Medicine; Visit Provider Family Medicine
DX: Z01.818 Encounter for other preprocedural examination (principal); E03.9 Hypothyroidism, unspecified; I42.9 Cardiomyopathy, unspecified; I50.9 Heart failure, unspecified; N18.31 Chronic kidney disease, stage 3a; C67.9 Malignant neoplasm of bladder, unspecified; I25.5 Ischemic cardiomyopathy; Z85.51 Personal history of malignant neoplasm of bladder; N39.0 Urinary tract infection, site not specified
CPT/HCPCS: 80048; 83880; 84443; 85025; 87086; 87186

== ENCOUNTER 2022-12-02 08:56 | Outpatient (CLI) | payer MEDICARE, SELFPAY ==
[2022-12-02 14:38] LABS: Basophils Percent Auto 0.8 % (0.0-3.0); Eosinophils Percent Auto 2.4 % (0.0-7.0); Hemoglobin* 9.7 gm/dL (13.5-17.5); Immature Granulocytes Pct Auto 0.4 %; Lymphocytes Percent Auto 2.5 % (20-44); Mean Corpuscular HGB Conc 29 gm/dL (32-36); Mean Corpuscular Hemoglobin 28 pg (26-34); Mean Corpuscular Volume 99 fL (80-100); Monocytes Percent Auto 2.2 % (0.0-11.0); Neutrophils Percent Auto 91.7 % (42.0-72.0); Platelet Count* 557 K/uL (140-440); RDW Coefficient of Variation % 19.4 % (11.5-15.5); Red Blood Count 3.43 m/uL (4.30-5.90); White Blood Count* 13.39 K/uL (4.50-11.00)
[2022-12-02 14:43] LABS: Slide Review Reflex No
[2022-12-02 14:59] LABS: Iron* 38 ug/dL (49-181)
[2022-12-02 15:08] LABS: Percent Iron Saturation 8 % (20-50); Total Iron Binding Capacity 474 ug/dL (261-462)
[2022-12-02 15:36] LABS: Ferritin* 6.3 ng/mL (17.9-464.0)
== END 2022-12-02 08:57 | disposition home or self-care (01) ==
LOC: LKVREF 08:57
PROVIDERS: PCP Family Medicine; Visit Provider Internal Medicine Hematology & Oncology
DX: Z01.818 Encounter for other preprocedural examination (principal); D45 Polycythemia vera; I50.40 Unspecified combined systolic (congestive) and diastolic (congestive) heart failure; R31.9 Hematuria, unspecified
CPT/HCPCS: 82728; 83540; 83550; 85025

== ENCOUNTER 2022-12-17 12:17 | Outpatient (CLI) | payer MEDICARE, SELFPAY ==
[2022-12-17 21:04] LABS: Chloride* 101 mmol/L (96-114); Potassium* 5.1 mmol/L (3.6-5.1); Sodium* 137 mmol/L (135-149)
[2022-12-17 21:06] LABS: Estimated Glomerular Filt Rate 74 ml/min
[2022-12-17 21:07] LABS: Blood Urea Nitrogen* 28 mg/dL (7-30); Calcium* 8.6 mg/dL (8.4-10.6); Carbon Dioxide* 31 mmol/L (20-32); Glucose* 254 mg/dL (60-115)
== END 2022-12-17 12:18 | disposition home or self-care (01) ==
PROVIDERS: PCP Family Medicine; Visit Provider Emergency Medicine
DX: N18.31 Chronic kidney disease, stage 3a (principal); D72.829 Elevated white blood cell count, unspecified; R31.9 Hematuria, unspecified; E11.9 Type 2 diabetes mellitus without complications; E03.9 Hypothyroidism, unspecified; I10 Essential (primary) hypertension
CPT/HCPCS: 80048; 87086

== ENCOUNTER 2022-12-27 11:06 | Outpatient (CLI) | payer MEDICARE, SELFPAY ==
[2022-12-27 12:43] LABS: Chloride* 103 mmol/L (96-114)
[2022-12-27 12:44] LABS: Potassium* 4.6 mmol/L (3.6-5.1); Sodium* 137 mmol/L (135-149)
[2022-12-27 12:46] LABS: Estimated Glomerular Filt Rate 74 ml/min
[2022-12-27 12:47] LABS: Blood Urea Nitrogen* 23 mg/dL (7-30); Calcium* 8.4 mg/dL (8.4-10.6); Carbon Dioxide* 31 mmol/L (20-32); Glucose* 244 mg/dL (60-115)
== END 2022-12-27 11:07 | disposition home or self-care (01) ==
PROVIDERS: PCP Family Medicine; Visit Provider Family Medicine
DX: N18.31 Chronic kidney disease, stage 3a (principal)
CPT/HCPCS: 80048

== ENCOUNTER 2023-01-02 10:14 | Outpatient (CLI) | payer MEDICARE, SELFPAY ==
--- NOTE | 2023-01-06 15:41 | PC.NURSE ---
Addendum entered by Melanie Liu RN 01/08/23 09:57: Dr. meeks called and talked with Dr. Edwards regarding concerns of recent blood work. At this time Dr. Edwards will be adding a few more test and will get a hold of Dr. meeks if any more questions/concerns for tax assessor. Original Note: Patients , Miesha, called with concerns about patients elevated WBCs. Dr Meeks is aware and will be talking with Dr. Edwards tomorrow to discuss patients situation. They will then follow up with Miesha after this occurs. All questions answered at this time.
== END 2023-01-02 10:15 | disposition home or self-care (01) ==
PROVIDERS: PCP Family Medicine; Visit Provider Family Medicine
DX: D64.9 Anemia, unspecified (principal); D72.829 Elevated white blood cell count, unspecified; E03.9 Hypothyroidism, unspecified; E11.9 Type 2 diabetes mellitus without complications; N13.30 Unspecified hydronephrosis
CPT/HCPCS: 82728; 84443

== ENCOUNTER 2023-01-09 16:05 | Outpatient (CLI) | payer MEDICARE, SELFPAY | END 2023-01-09 16:06 | disposition home or self-care (01) | LOC: NFLDREF 01-11 06:33 | PROVIDERS: PCP Family Medicine; Referring Provider Family Medicine; Visit Provider Family Medicine | DX: D72.829 Elevated white blood cell count, unspecified (principal); D64.9 Anemia, unspecified; E03.9 Hypothyroidism, unspecified | CPT/HCPCS: 84145; 86140 ==

== ENCOUNTER 2023-01-20 07:03 | Outpatient (CLI) | payer MEDICARE, OTHER, SELFPAY ==
--- NOTE | 2023-01-20 07:15 | CRLHL7_ITS ---
For Patients: As a result of the Century Cures Act, medical imaging exams and procedure reports are released immediately into your electronic medical record. You may view this report before your referring provider. If you have questions, please contact your health care provider. INDICATION: ELEVATED WBC, RUQ PAIN COMPARISON: none TECHNIQUE: Real time gr scale imaging and color Doppler analysis was performed of the right upper quadrant. FINDINGS: The patient`s liver is of normal size and has uniform echogenicity. There is a normal appearance of the hepatic IVC and proximal abdominal aorta. There is no evidence of ascites. The gallbladder is of normal size and there is no evidence of intraluminal stones or sludge. The gallbladder wall measures 1.8 mm in thickness. The common bile duct is of normal size and measures 4 mm in diameter at the level of the nhi hepatis. The pancreas is not well-visualized. There is no evidence of a stone or hydronephrosis within the right kidney. The right kidney measures 13.0 cm in length. Right renal cyst is present measuring 3.4 x 2.3 x 2.9 cm. IMPRESSION: Normal ultrasound of the gallbladder. No gallstones or biliary obstruction. Liver appears normal. Incidental right renal cysts. Incomplete visualization of the pancreas. Dictated by Luis Miguel Beaver MD @ 01/20/2023 11:10:17 AM (Electronically Signed)
== END 2023-01-20 07:04 | disposition home or self-care (01) ==
PROVIDERS: PCP Family Medicine; Visit Provider Family Medicine
DX: D72.829 Elevated white blood cell count, unspecified (principal); R10.11 Right upper quadrant pain
CPT/HCPCS: 76705

== ENCOUNTER 2023-01-30 08:51 | Outpatient (CLI) | payer MEDICARE, SELFPAY | END 2023-01-30 08:52 | disposition home or self-care (01) | LOC: NFLDREF 01-31 00:22 | PROVIDERS: PCP Family Medicine; Referring Provider Family Medicine; Visit Provider Internal Medicine Hematology & Oncology | DX: I50.40 Unspecified combined systolic (congestive) and diastolic (congestive) heart failure (principal); N28.9 Disorder of kidney and ureter, unspecified | CPT/HCPCS: 80048 ==

== ENCOUNTER 2023-02-16 19:12 | Emergency (ER) | payer MEDICARE, OTHER, SELFPAY ==
[2023-02-16] VITALS (18 sets, daily range): BP systolic 110–124; BP diastolic 46–58; PULSE 64–73; RESP 22; TEMP 38.3; O2SAT 77–98
--- NOTE | 2023-02-16 20:17 | CRLHL7_ITS ---
For Patients: As a result of the Century Cures Act, medical imaging exams and procedure reports are released immediately into your electronic medical record. You may view this report before your referring provider. If you have questions, please contact your health care provider. INDICATION: acute on chronic dyspnea TECHNIQUE: Chest 1 view COMPARISON: 12/17/2022 FINDINGS: Bilateral areas of scarring again noted. Similar mediastinal contours. No acute infiltrate or edema. No effusion or pneumothorax. IMPRESSION: No acute findings. Dictated by Luis Miguel Beaver MD @ 02/16/2023 9:05:39 PM (Electronically Signed)
--- NOTE | 2023-02-16 20:22 | ED.GENADULT ---
HPI - General Adult General Chief complaint: Fever Stated complaint: Fever Time Seen by Provider: 02/16/23 19:28 History of Present Illness HPI narrative: 87-year-old man presenting to the emergency department with daughters with concern of fever and fatigue. Recently had been complaining of urinary frequency; believe that was yesterday. I note now on review of record has had a history of balanitis. He does also have a left nephrostomy tube. Daughter started on some antibiotics yesterday with concern of urinary tract infection due to the described pain. These antibiotics had been prescribed in anticipation of travel in the past. This morning then measured a temperature of 101.9?. He has not had increasing cough though oxygenation has been dipping into the low 70s at home with exertion. Does have oxygen support that he wears as needed. Baseline would be low 90s. No chest pain. No abdominal pain although as I am talking with him is been complaining of some left-sided pain. There was concern also of some redness on his face right restorationism area. His right eye is also been more goopy lately which they been washing out. Chronically everted right lower lid. Yesterday did not want to eat. Related Data Home Medications Medication Instructions Recorded Confirmed acetaminophen 325 mg tablet 650 mg PO Q6H PRN 05/08/22 02/16/23 aspirin 81 mg tablet,delayed 81 mg PO QDAY 05/08/22 02/16/23 release (Adult Aspirin Regimen) cholecalciferol (vitamin D3) 50 2,000 unit PO .Every 48 Hours 05/08/22 02/16/23 mcg (2,000 unit) tablet nitroglycerin 0.4 mg sublingual 0.4 mg sublingual Q5M 05/08/22 02/16/23 tablet hydroxyurea 500 mg capsule (Hydrea) 1,000 mg PO QDAY 12/17/22 02/16/23 metoprolol succinate 25 mg 12.5 mg PO QDAY 12/17/22 02/16/23 tablet,extended release 24 hr sacubitril 24 mg-valsartan 26 mg 1 tab PO BID 12/17/22 02/16/23 tablet (Entresto) torsemide 20 mg tablet 10 mg PO DAILY 12/27/22 02/16/23 Previous Rx's Medication Instructions Recorded bupropion HCl 300 mg 24 hr tablet, 300 mg PO DAILY #90 tabs 11/20/22 extended release glipizide 10 mg tablet, extended 10 mg PO DAILY #90 tabs 09/08/22 release 24 hr finasteride 5 mg tablet 5 mg PO QDAY #90 tabs 10/01/22 tamsulosin 0.4 mg capsule 0.4 mg PO QHS #90 caps 10/01/22 silver sulfadiazine 1 % topical 1 applic topical BID #25 grams 12/27/22 cream (Silvadene) blood-glucose meter #1 ea 01/01/23 blood sugar diagnostic (Blood #50 ea 01/02/23 Glucose Test strips) lancets #100 ea 01/04/23 lancets (Accu-Chek Softclix #200 ea 01/06/23 Lancets) levothyroxine 175 mcg tablet 175 mcg PO QDAY #90 tabs 01/10/23 (Synthroid) omeprazole 20 mg tablet,delayed 20 mg PO QDAY #90 tabs 01/10/23 release clotrimazole-betamethasone 1 1 applic topical BID 2 weeks #45 02/06/23 %-0.05 % topical cream grams ferrous gluconate 324 mg (37.5 mg 324 mg PO BID #180 tabs 02/06/23 iron) tablet Allergies Allergy/AdvReac Type Severity Reaction Status Date / Time penicillin V Allergy Severe swollen Verified 02/06/23 10:55 tongue Beta-Blockers AdvReac Intermediate bradycardia Uncoded 02/16/23 19:38 (Beta-Adrenergic Blocking Agts) Review of Systems Status of ROS: Reports: 6 or more systems reviewed and unremarkable except as noted in History and below [facility] Medical History Anemia ?D64.9 - Anemia, unspecified (ICD-10) Back pain ?M54.9 - Dorsalgia, unspecified (ICD-10) Bladder cancer ?C67.9 - Malignant neoplasm of bladder, unspecified (ICD-10) BPH (benign prostatic hyperplasia) ?N40.0 - Benign prostatic hyperplasia without lower urinary tract symptoms (ICD-10) Cellulitis ?L03.90 - Cellulitis, unspecified (ICD-10) CHF (congestive heart failure) ?I50.9 - Heart failure, unspecified (ICD-10) Chronic GERD ?K21.9 - Gastro-esophageal reflux disease without esophagitis (ICD-10) Chronic hyperkalemia ?E87.5 - Hyperkalemia (ICD-10) Cognitive deficit with impaired psychomotor function ?R41.89 - Other symptoms and signs involving cognitive functions and awareness (ICD-10) ?R41.843 - Psychomotor deficit (ICD-10) Depression (08/29/11) ?F32.A - Depression, unspecified (ICD-10) Diabetes ?E11.9 - Type 2 diabetes mellitus without complications (ICD-10) Gout ?M10.9 - Gout, unspecified (ICD-10) Hearing loss (08/29/11) ?H91.90 - Unspecified hearing loss, unspecified ear (ICD-10) HFrEF (heart failure with reduced ejection fraction) ?I50.20 - Unspecified systolic (congestive) heart failure (ICD-10) Hydronephrosis of left kidney ?N13.30 - Unspecified hydronephrosis (ICD-10) Hypertension ?I10 - Essential (primary) hypertension (ICD-10) Hyponatremia ?E87.1 - Hypo-osmolality and hyponatremia (ICD-10) Hypothyroidism ?E03.9 - Hypothyroidism, unspecified (ICD-10) Ischemic cardiomyopathy ?I25.5 - Ischemic cardiomyopathy (ICD-10) Left hand paresthesia ?R20.2 - Paresthesia of skin (ICD-10) Leukocytosis ?D72.829 - Elevated white blood cell count, unspecified (ICD-10) Leukocytosis (leucocytosis) ?D72.829 - Elevated white blood cell count, unspecified (ICD-10) Lightheadedness ?R42 - Dizziness and giddiness (ICD-10) Major depressive disorder in partial remission ?F32.4 - Major depressive disorder, single episode, in partial remission (ICD-10) Malignant neoplasm of bladder (02/19/22) ?C67.9 - Malignant neoplasm of bladder, unspecified (ICD-10) Mass of urinary bladder ?N32.89 - Other specified disorders of bladder (ICD-10) Myelodysplasia (myelodysplastic syndrome) ?D46.9 - Myelodysplastic syndrome, unspecified (ICD-10) Non-ischemic cardiomyopathy ?I42.8 - Other cardiomyopathies (ICD-10) Polycythemia vera ?D45 - Polycythemia vera (ICD-10) 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) ?C44.02 - Squamous cell carcinoma of skin of lip (ICD-10) 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) ?C44.320 - Squamous cell carcinoma of skin of unspecified parts of face (ICD-10) Stage 3a chronic kidney disease ?N18.31 - Chronic kidney disease, stage 3a (ICD-10) Sundowning ?F05 - Delirium due to known physiological condition (ICD-10) Type 2 diabetes mellitus ?E11.9 - Type 2 diabetes mellitus without complications (ICD-10) Unsteady gait ?R26.81 - Unsteadiness on feet (ICD-10) UTI (urinary tract infection) ?N39.0 - Urinary tract infection, site not specified (ICD-10) Wide-complex tachycardia ?I47.2 - Ventricular tachycardia (ICD-10) Surgical History History of carpal tunnel surgery of left wrist (07/04/21) ?Z98.890 - Other specified postprocedural states (ICD-10) Social History Highest level of school completed/degree received: 12th grade, no diploma Smoking Status: Never smoker Do you use any of these nicotine containing products: None Second hand tobacco smoke exposure: No How often do you have a drink containing alcohol: monthly or less How many standard drinks containing alcohol do you have on a typical day: 1 or 2 How often do you have six or more drinks on one occasion: Never AUDIT-C Alcohol total score: 1 Non-prescribed substance use: denies use Caffeine: Yes (1 pop) Little interest or pleasure in doing things: not at all Feeling down, depressed, or hopeless: not at all service: No Exam Narrative: Exam Narrative: Is quiet. No distress. Hard of hearing. Hearing aids in place. Nasal cannula in place. He is breathing easily. Skin is warm and dry. Appears exfoliative patches the right restorationism area has some patchy erythema that is not indurated nor with any calor. I think it is more consistent with a chronic situation. Lungs with generally diminished breath sounds. trace crepitus diffuse. Not tachypneic. Heart with regular rate and rhythm . Distant. Abdomen is soft appears to be nontender. There is clear medium yellow urine at the left collection bag. Extremities well perfused with trace pretibial pitting edema. Oropharynx is dry. Extensive dental repair. Right eyes with eversion of the right lid lower lid. About conjunctival injection. No surrounding erythema. Genitourinary exam with rather tight foreskin but no significant inflammatory changes or induration. Const: Vital Signs, click to edit/add: Vital Signs - 24 hr 02/16/23 20:13 02/16/23 20:15 02/16/23 20:30 Pulse Rate 69 70 69 Blood Pressure Pulse Oximetry 96 96 97 02/16/23 20:35 02/16/23 20:45 02/16/23 21:07 Pulse Rate 66 64 70 Blood Pressure Pulse Oximetry 96 96 93 02/16/23 21:15 02/16/23 21:30 02/16/23 21:33 Pulse Rate 69 68 67 Blood Pressure 113/56 L Pulse Oximetry 96 96 97 02/16/23 21:45 02/16/23 22:00 02/16/23 22:02 Pulse Rate 66 68 66 Blood Pressure 116/51 L Pulse Oximetry 97 96 98 02/16/23 22:15 02/16/23 22:30 02/16/23 22:33 Pulse Rate 67 64 66 Blood Pressure 124/58 L Pulse Oximetry 97 98 98 Documenting provider has reviewed patient's vital signs: yes Course Vital Signs Vital signs: Initial Vital Signs Respiratory Effort Normal, SOB at Exertion 02/16/23 19:13 Respiratory Depth Normal 02/16/23 19:13 Respiratory Pattern Normal 02/16/23 19:13 Pulse Oximetry 77 L 02/16/23 19:13 Oxygen Delivery Method Nasal Cannula 02/16/23 19:13 Oxygen Flow Rate 2 02/16/23 19:13 Sepsis Recent Fever Within 48 Hours Yes 02/16/23 19:13 Sepsis Action Taken by Nursing No Action Required 02/16/23 19:13 Vital Signs Pulse Oximetry 77 L 02/16/23 19:13 Oxygen Delivery Method Nasal Cannula 02/16/23 19:13 Oxygen Flow Rate 2 02/16/23 19:13 Temperature 100.9 F H 02/16/23 19:29 Pulse Rate 66 02/16/23 22:33 Respiratory Rate 22 02/16/23 19:29 Blood Pressure 124/58 L 02/16/23 22:33 Pulse Oximetry 98 02/16/23 22:33 Oxygen Delivery Method Room Air 02/16/23 19:29 Oxygen Flow Rate 2 02/16/23 19:13 Medical Decision Making MDM Narrative Medical decision making narrative: Certainly with fever investigating further. Generalized lab draws. Source could be urine or pneumonia. Does not appear to have extensive abdominal pain. Eval for neutropenia as well in the setting of myelodysplasia, will collect blood cultures. Light fluid hydration for now. Markedly elevated white count as expected on return of labs. Chest x-ray I read looks similar to prior without acute infiltrate. Atelectatic changes/scarring evident. Markedly elevated BNP. CRP is elevated 6.2. Urinalysis does suggest infection. Perhaps has been affected by couple days of Bactrim. Does not look as infected as has in the past. Unclear source otherwise. Triple swab is negative. Review of records shows Staph epidermidis on urine cultures most recently. Fluoroquinolone resistance. Sensitive to doxycycline/tetracycline Did discuss cares with our hospitalist though I do not think will be needing admission. Think is near baseline otherwise. Discussed with family who feel that he is strong enough to return home and this is certainly Mr. Chery's preference. Overall stable/well during time in emergency department. See patient discharge plan Lab Data Lab results reviewed: Yes I reviewed the patient's lab results Labs: Lab Results 02/16/23 02/16/23 02/16/23 Range/Units 19:50 20:30 20:40 WBC 31.15 H* (4.50-11.00) K/uL RBC 3.37 L (4.30-5.90) m/uL Hgb 10.2 L (13.5-17.5) gm/dL Hct 33.9 L (37.0-53.0) % MCV 101 H (80-100) fL MCH 30 (26-34) pg MCHC 30 L (32-36) gm/dL RDW Coeff of Christel 24.0 H (11.5-15.5) % Plt Count 309 (140-440) K/uL Neut % (Auto) 89.4 H (42.0-72.0) % Lymph % (Auto) 1.7 L (20-44) % [place] % (Auto) 3.2 (0.0-11.0) % Eos % (Auto) 0.5 (0.0-7.0) % Baso % (Auto) 0.7 (0.0-3.0) % Neut # (Auto) 27.80 H (1.7-7.0) K/uL Lymph # (Auto) 0.50 L (0.90-2.90) K/uL [place] # (Auto) 1.00 H (0.00-0.90) K/UL Eos # (Auto) 0.20 (0.00-0.50) K/uL Baso # (Auto) 0.20 (0.00-0.30) K/uL Diff Slide Review Acceptable Review (Acceptable) Sodium 133 L (135-149) mmol/L Potassium 4.4 (3.6-5.1) mmol/L Chloride 102 (96-114) mmol/L Carbon Dioxide 27 (20-32) mmol/L BUN 25 (7-30) mg/dL Creatinine 1.2 (0.5-1.5) mg/dL Estimated GFR 59 ml/min Glucose 97 (60-115) mg/dL Lactate 0.8 (0.5-1.9) mmol/L Calcium 7.9 L (8.4-10.6) mg/dL Magnesium 1.9 (1.5-2.6) mg/dL Total Bilirubin 0.6 (0.1-1.5) mg/dL Direct Bilirubin 0.2 (0.0-0.5) mg/dL AST 24 (12-35) U/L ALT 17 (4-50) U/L Alkaline Phosphatase 139 (40-150) U/L C-Reactive Protein 6.2 H (0.5-1.0) mg/dL NT-Pro-B Natriuret Pep 86864 pg/mL Total Protein 6.0 (6.0-8.3) g/dL Albumin 3.4 (3.3-5.0) g/dL Procalcitonin 1.17 H (<0.50) ng/mL Urine Color Dark yellow (Yellow) Urine Appearance Slightly Cloudy A (Clear) Urine pH 6.0 (5.0-8.5) Ur Specific [place] 1.020 (1.000-1.030) Urine Protein 2+ A (Negative) Urine Glucose (UA) Negative (Negative) Urine Ketones Negative (Negative) Urine Blood 1+ A (Negative) Urine Nitrite Negative (Negative) Urine Bilirubin Negative (Negative) Urine Urobilinogen 0.2 (0.2-1.0) Ur Leukocyte Esterase 1+ A (Negative) Urine RBC 0-2 (0-2) Urine WBC 10-25 A (0-5) Ur Squamous Epith Cells None (None-Few) Urine Bacteria Few A (None) SARS-CoV-2 (PCR) Negative SARS-CoV-2 (Negative) Influenza Type A (PCR) Negative PCR FLU A (Negative) Influenza Type B (PCR) Negative PCR FLU B (Negative) RSV (PCR) Negative PCR RSV (Negative) ECG Data Attestation: I personally reviewed and interpreted this ECG as follows: (Sinus rate of 67 low amplitude) Discharge Plan Discharge Clinical Impression: Urinary tract infection, Fever, Conjunctivitis Patient Disposition: Home w/ Parent or Adult Condition: Stable Additional Instructions: Stay well-hydrated. As I said I am not sure we have seen that Bactrim is failing but per your preference and per sensitivities in prior urine cultures, we can change to doxycycline. Take the doxycycline for 8 days. Urine and blood cultures are pending. <del>It</del> <del>appears</del> <del>that</del> <del>we're</del> <del>out</del> <del>of</del> <del>the</del> <del>eyedrops</del> <del>in</del> <del>the</del> <del>InstyMeds.</del> <del>I</del> <del>think</del> <del>I</del> <del>would</del> <del>still</del> <del>consider</del> <del>using</del> <del>the</del> <del>generic</del> <del>eye</del> <del>ointment</del> <del>that</del> <del>I</del> <del>described</del> <del>to</del> <del>you</del> <del>as</del> <del>needed</del> <del>to</del> <del>keep</del> <del>your</del> <del>eye</del> <del>moist.</del> <del>I</del> <del>have</del> <del>sent</del> <del>in</del> <del>some</del> <del>antibiotic</del> <del>ointment</del> <del>if</del> <del>you</del> <del>start</del> <del>to</del> <del>see</del> <del>increased</del> <del>drainage,</del> <del>redness</del> <del>settling</del> <del>in</del> <del>about</del> <del>the</del> <del>eye.</del> It is okay to use your oxygen at home as prescribed. We provided some erythromycin eye ointment fromour eye tray. This should provide a nice lubricating treatment to your right eye. I still think there is benefit in just using the generic eye ointment OTC as I do not see clearly a secondary bacterial infection here, but I understand your concerns. Prescriptions: No Action nitroglycerin 0.4 mg tablet, sublingual 0.4 mg sublingual Q5M cholecalciferol (vitamin D3) 50 mcg (2,000 unit) tablet 2,000 unit PO .Every 48 Hours Rx Instructions: EVERY OTHER DAY aspirin [Adult Aspirin Regimen] 81 mg tablet,delayed release (DR/EC) 81 mg PO QDAY acetaminophen 325 mg tablet 650 mg PO Q6H PRN torsemide 20 mg tablet 10 mg PO DAILY tamsulosin 0.4 mg capsule 0.4 mg PO QHS Qty: 90 1RF finasteride 5 mg tablet 5 mg PO QDAY Qty: 90 1RF levothyroxine [Synthroid] 175 mcg tablet 175 mcg PO QDAY Qty: 90 1RF omeprazole 20 mg tablet,delayed release (DR/EC) 20 mg PO QDAY Qty: 90 3RF ferrous gluconate 324 mg (37.5 mg iron) tablet 324 mg PO BID Qty: 180 3RF clotrimazole-betamethasone 1-0.05 % cream 1 applic topical BID 14 Days Qty: 45 0RF metoprolol succinate 25 mg tablet extended release 24 hr 12.5 mg PO QDAY Entresto 24-26 mg tablet 1 tab PO BID hydroxyurea [Hydrea] 500 mg capsule 1,000 mg PO QDAY (DME) Blood Glucose Test Strip See Rx Instructions .Route Qty: 50 3RF Rx Instructions: Once daily silver sulfadiazine [Silvadene] 1 % cream 1 applic topical BID Qty: 25 1RF Rx Instructions: apply a 1.5 mm thickness glipizide 10 mg tablet extended release 24hr 10 mg PO DAILY Qty: 90 3RF bupropion HCl 300 mg tablet extended release 24 hr 300 mg PO DAILY Qty: 90 3RF (DME) blood-glucose meter Kit See Rx Instructions .Route Qty: 1 1RF Rx Instructions: Once daily (DME) lancets Misc See Rx Instructions .Route Qty: 100 12RF Rx Instructions: daily (DME) lancets [Accu-Chek Softclix Lancets] Misc See Rx Instructions .Route Qty: 200 3RF Rx Instructions: Once daily Follow Up/Referrals: Slava Edwards MD [Primary Care Provider] - Stand Alone Forms: My[facility] Info Instructions
[2023-02-16 20:31] LABS: Lactate* 0.8 mmol/L (0.5-1.9)
[2023-02-16 20:34] LABS: Basophils Percent Auto 0.7 % (0.0-3.0); Eosinophils Percent Auto 0.5 % (0.0-7.0); Hematocrit 33.9 % (37.0-53.0); Hemoglobin* 10.2 gm/dL (13.5-17.5); Immature Granulocytes Pct Auto 4.5 %; Lymphocytes Percent Auto 1.7 % (20-44); Mean Corpuscular HGB Conc 30 gm/dL (32-36); Mean Corpuscular Hemoglobin 30 pg (26-34); Mean Corpuscular Volume 101 fL (80-100); Monocytes Percent Auto 3.2 % (0.0-11.0); Neutrophils Percent Auto 89.4 % (42.0-72.0); Red Blood Count 3.37 m/uL (4.30-5.90)
[2023-02-16 20:45] LABS: Albumin* 3.4 g/dL (3.3-5.0); Chloride* 102 mmol/L (96-114); Sodium* 133 mmol/L (135-149)
[2023-02-16 20:46] LABS: Potassium* 4.4 mmol/L (3.6-5.1)
[2023-02-16 20:48] LABS: Alkaline Phosphatase* 139 U/L (40-150); Aspartate Amino Transferase* 24 U/L (12-35); Bilirubin Direct* 0.2 mg/dL (0.0-0.5); Bilirubin Total* 0.6 mg/dL (0.1-1.5); Blood Urea Nitrogen* 25 mg/dL (7-30); Carbon Dioxide* 27 mmol/L (20-32); Creatinine* 1.2 mg/dL (0.5-1.5); Estimated Glomerular Filt Rate 59 ml/min
[2023-02-16 20:49] LABS: Alanine Aminotransferase* 17 U/L (4-50); Calcium* 7.9 mg/dL (8.4-10.6); Glucose* 97 mg/dL (60-115); Magnesium* 1.9 mg/dL (1.5-2.6)
[2023-02-16 20:51] LABS: C Reactive Protein* 6.2 mg/dL (0.5-1.0); Platelet Count* 309 K/uL (140-440); White Blood Count* 31.15 K/uL (4.50-11.00)
[2023-02-16 20:52] LABS: Slide Review Acceptable Review (Acceptable); Slide Review Reflex Yes
[2023-02-16] MEDS: 0.9 % SODIUM CHLORIDE 500 ML 500 ML IV (20:55)
[2023-02-16 21:05] LABS: NT Pro B Type NatriureticPept* 14000 pg/mL; Procalcitonin* 1.17 ng/mL (<0.50)
--- NOTE | 2023-02-16 21:12 | ED.NURSE ---
Patient straight cath'ed for urine as he reported he could not pee. reports that he is straight cath'ed once in the night to drain bladder. This was done in ED and urine specimen was sent to lab.
[2023-02-16 21:15] LABS: Appearance Urine Slightly Cloudy (Clear); Bilirubin Urine Negative (Negative); Blood Urine 1+ (Negative); Color Urine Dark yellow (Yellow); Glucose Urine Negative (Negative); Ketones Urine Negative (Negative); Leukocyte Esterase Urine 1+ (Negative); Nitrite Urine Negative (Negative); Protein Urine 2+ (Negative); Urobilinogen Urine 0.2 (0.2-1.0)
[2023-02-16 21:23] LABS: Bacteria Urine Few; RBC Urine 0-2 (0-2)
[2023-02-16 22:44] LABS: PCR FLU A Negative PCR FLU A (Negative); PCR FLU B Negative PCR FLU B (Negative); PCR RSV Negative PCR RSV (Negative)
[2023-02-16 22:48] LABS: SARS PCR* Negative SARS-CoV-2 (Negative)
== END 2023-02-16 23:04 | disposition home or self-care (01) ==
PROVIDERS: Emergency Provider Family Medicine; PCP Family Medicine
DX: N39.0 Urinary tract infection, site not specified (principal); R50.9 Fever, unspecified; H10.9 Unspecified conjunctivitis
CPT/HCPCS: 36415; 71045; 80048; 80076; 81001; 83605; 83735; 83880; 84145; 85025; 86140; 87040; 87086; 87631; 93005; 94761; 96360; 99284; 99285; J7120

== ENCOUNTER 2023-03-30 10:10 | Outpatient (CLI) | payer MEDICARE, SELFPAY | END 2023-03-30 10:11 | disposition home or self-care (01) | LOC: NFLDREF 03-31 08:44 | PROVIDERS: PCP Family Medicine; Referring Provider Family Medicine; Visit Provider Family Medicine | DX: D50.9 Iron deficiency anemia, unspecified (principal); R53.83 Other fatigue | CPT/HCPCS: 87086 ==

== ENCOUNTER 2023-04-07 11:30 | Outpatient (CLI) | payer MEDICARE, SELFPAY | END 2023-04-07 11:31 | disposition home or self-care (01) | LOC: NFLDREF 04-08 18:01 | PROVIDERS: PCP Family Medicine; Referring Provider Family Medicine; Visit Provider Family Medicine | DX: D50.9 Iron deficiency anemia, unspecified (principal); R53.83 Other fatigue | CPT/HCPCS: 80048; 84443 ==

== ENCOUNTER 2023-04-10 11:16 | Outpatient (CLI) | payer MEDICARE, SELFPAY ==
--- NOTE | 2023-04-14 14:06 | ONC.NURNOTE ---
Lab results reviewed by Dr Little and called to Miesha to continue on same dose of hydrea 2 per day hg noted-_ Miesha reports that the decline is a result of recent bleeding from bladder Henok has appts coming up with urology and cardiology and Miesha requests that return to Dr Little be pushed out a few months- this was ok with Dr Little as long as we see his labs monthly
== END 2023-04-10 11:17 | disposition home or self-care (01) ==
LOC: LKVREF 11:18
PROVIDERS: PCP Family Medicine; Visit Provider Family Medicine
DX: D64.9 Anemia, unspecified (principal); I50.20 Unspecified systolic (congestive) heart failure; I10 Essential (primary) hypertension; E66.9 Obesity, unspecified
CPT/HCPCS: 83880

== ENCOUNTER 2023-05-06 08:34 | Outpatient (CLI) | payer MEDICARE, OTHER, SELFPAY | END 2023-05-06 08:35 | disposition home or self-care (01) | LOC: NFLDREF 05-07 10:20 | PROVIDERS: PCP Family Medicine; Referring Provider Family Medicine; Visit Provider Family Medicine | DX: D50.9 Iron deficiency anemia, unspecified (principal); D64.9 Anemia, unspecified; N39.0 Urinary tract infection, site not specified | CPT/HCPCS: 80048; 87086 ==

== ENCOUNTER 2023-06-03 07:58 | Outpatient (CLI) | payer MEDICARE, OTHER, SELFPAY | END 2023-06-03 07:59 | disposition home or self-care (01) | LOC: LKVREF 15:30 | PROVIDERS: PCP Family Medicine; Referring Provider Family Medicine; Visit Provider Family Medicine | DX: N39.0 Urinary tract infection, site not specified; D46.9 Myelodysplastic syndrome, unspecified; E03.9 Hypothyroidism, unspecified; N18.31 Chronic kidney disease, stage 3a; D72.829 Elevated white blood cell count, unspecified | CPT/HCPCS: 80048; 84443; 85025; 87086 ==

== ENCOUNTER 2023-07-08 09:40 | Outpatient (CLI) | payer MEDICARE, OTHER, SELFPAY | END 2023-07-08 09:41 | disposition home or self-care (01) | LOC: NFLDREF 07-09 07:41 | PROVIDERS: PCP Family Medicine; Referring Provider Family Medicine; Visit Provider Family Medicine | DX: D72.829 Elevated white blood cell count, unspecified (principal); N18.31 Chronic kidney disease, stage 3a; E03.9 Hypothyroidism, unspecified; N39.0 Urinary tract infection, site not specified; E87.5 Hyperkalemia; D64.9 Anemia, unspecified; E11.9 Type 2 diabetes mellitus without complications | CPT/HCPCS: 80048; 87086; 87186 ==

== ENCOUNTER 2023-08-04 12:40 | Outpatient (CLI) | payer MEDICARE, OTHER, SELFPAY | END 2023-08-04 12:41 | disposition home or self-care (01) | LOC: LKVREF 12:42 | PROVIDERS: PCP Family Medicine; Visit Provider Physician Assistant Medical | DX: E87.5 Hyperkalemia (principal); E11.9 Type 2 diabetes mellitus without complications; E03.9 Hypothyroidism, unspecified; N18.31 Chronic kidney disease, stage 3a; I10 Essential (primary) hypertension; D64.9 Anemia, unspecified; R31.9 Hematuria, unspecified | CPT/HCPCS: 80048; 84443; 87086; 87186 ==

== ENCOUNTER 2023-08-11 09:28 | Outpatient (RCR) | payer MEDICARE, OTHER, SELFPAY ==
--- NOTE | 2023-05-13 15:43 | ONC.NURNOTE ---
lab results discussed with Miesha noted Hg decline Henok is being treated for a UTI, he has had some blood in his urine Henok has dropped one of his daily iron tablets from 1 BID to 1 daily due to GI upset plan to recheck CBC next Friday05/20/23 in [place] orders to be placed in [facility]
--- NOTE | 2023-07-10 15:36 | ONC.NURNOTE ---
Lab results reviewed as stable with Miesha continues on hydrea 2 tabs/day sees Dr Edwards monthly RTC next month- has a prolia injection the same day- but then Miesha is asking if can further decrease frequency of visits due to hardship to get Henok into the clinie
--- NOTE | 2023-08-25 17:04 | ONC.NURNOTE ---
Addendum entered by Melody Heck RN 08/25/23 17:09: Called to [facility] [phone] Original Note: Hydroxyurea refill: 2 caps daily (1000mg) disp #180 with 1 refill authorized by Rachael Gavin APRN/AMADOU Whiting had appt with Dr Little in the past month- no dose change of hydrea
--- NOTE | 2023-10-08 10:59 | ONC.NURNOTE ---
Dose change called to [facility] Labs reviewed by Dr Rosas Thomason dose to increase to 1000 mg 5d/wk and 1500 mg 2d/wk patient scheduled for lab redraw with Dr Edwards mid October new RX requested-
--- NOTE | 2023-12-25 14:01 | ONC.NURNOTE ---
Labs noted by Dr Little yesterday- Sonya Little called results to Miesha noted progressive drop in Hg- informed Dr Little that Henok does not want to pursue any further interventions to evaluate for occult blood loss Henok sees PCP in 2 weeks with additional lab work
== END 2024-01-18 23:59 | disposition home or self-care (01) ==
LOC: CCIC 09:28
PROVIDERS: PCP Family Medicine; Visit Provider Internal Medicine Hematology & Oncology
DX: D45 Polycythemia vera (principal); C67.9 Malignant neoplasm of bladder, unspecified
CPT/HCPCS: 99212; 99214

== ENCOUNTER 2023-08-15 09:08 | Outpatient (CLI) | payer MEDICARE, OTHER, SELFPAY | END 2023-08-15 09:09 | disposition home or self-care (01) | LOC: NFLDREF 08-18 12:50 | PROVIDERS: PCP Family Medicine; Referring Provider Family Medicine; Visit Provider Family Medicine | DX: N39.0 Urinary tract infection, site not specified (principal) | CPT/HCPCS: 87086 ==

== ENCOUNTER 2023-09-01 08:41 | Outpatient (CLI) | payer MEDICARE, OTHER, SELFPAY | END 2023-09-01 08:42 | disposition home or self-care (01) | LOC: NFLDREF 09-02 22:07 | PROVIDERS: PCP Family Medicine; Referring Provider Family Medicine; Visit Provider Family Medicine | DX: R06.02 Shortness of breath (principal); E87.5 Hyperkalemia; N39.0 Urinary tract infection, site not specified; I50.20 Unspecified systolic (congestive) heart failure; D46.9 Myelodysplastic syndrome, unspecified; D72.829 Elevated white blood cell count, unspecified; I42.8 Other cardiomyopathies | CPT/HCPCS: 80048; 83880; 87086 ==

== ENCOUNTER 2023-10-03 08:55 | Outpatient (CLI) | payer MEDICARE, OTHER, SELFPAY | END 2023-10-03 08:56 | disposition home or self-care (01) | LOC: NFLDREF 15:01 | PROVIDERS: PCP Family Medicine; Referring Provider Family Medicine; Visit Provider Family Medicine | DX: D46.9 Myelodysplastic syndrome, unspecified (principal); D72.829 Elevated white blood cell count, unspecified; E11.9 Type 2 diabetes mellitus without complications; E55.9 Vitamin D deficiency, unspecified; I11.9 Hypertensive heart disease without heart failure; I43 Cardiomyopathy in diseases classified elsewhere; N18.31 Chronic kidney disease, stage 3a; N39.0 Urinary tract infection, site not specified | CPT/HCPCS: 80053; 82043; 82306; 82570; 84443; 87086; 87186 ==

== ENCOUNTER 2023-11-06 13:59 | Outpatient (REF) | payer MEDICARE, OTHER, SELFPAY ==
--- OUTSIDE RECORDS SUMMARY | 2023-11-06 14:10 | XMS_ITS | Encounter Summary ---
Author Name Unknown Organization [facility] Address [address] [place] [address] Care Team Providers Care Stock Raiser Name Role Phone Slava Edwards MD Primary Care Provider [phone] Kelley Carrillo RN Unavailable Unavaila ble Agustin Snider MD Unavailable [phone] Idania Pearce RN Unavailable Unavaila ble Reason for Referral * CV Testing (Routine) - Pending Review Specialty Diagnoses / Procedures Referred By Contac t Referred To Contact Diagnoses 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) Procedures Echocardiogram Complete ZZHC TTE W/DOPPLER, COMPLETE [facility] ECHO COMPLETE W DOPPLER W CONTRAST ZZHC ECHO COMPLETE W DOPPLER W/O CONTRAST ZZHC IV PUSH SINGLE, INITIAL SUBSTANCE ZZHC US GUIDE FOR PERICARDIOCENTESIS ZZHC ECHO MYOCARD BX ZZC INJECTION, PERFLUTREN LIPID MICROSPHERES, PER ML ZZHC STATISTIC IV PUSH SINGLE INITIAL SUBSTANCE IA ECHO MYOCARD BX IA INJECTION, PERFLUTREN LIPID MICROSPHERES, PER ML IA TTE W/DOPPLER, COMPLETE IA IV PUSH SINGLE, INITIAL SUBSTANCE IA TTE W/DOPPLER, COMPLETE IA TTE W/DOPPLER, COMPLETE HC US GUIDE FOR PERICARDIOCENTESIS HC ECHO MYOCARD BX HC IV PUSH SINGLE, INITIAL SUBSTANCE HC STATISTIC IV PUSH SINGLE INITIAL SUBSTANCE HC ECHO COMPLETE W DOPPLER W CONTRAST HC ECHO COMPLETE W DOPPLER W/O CONTRAST Greta Heller PA-C [address] [facility] [id number] Referral ID Status Reason Start Date Expiration Date V isits Requested Visits Authorized [id number] Pending Review 11/04/2023 11/03/2024 1 1 PRINTER * Consultation (Routine: Next available opening) - Pending Review Specialty Diagnoses / Procedures Referred By Contac t Referred To Contact Cardiovascular Disease Diagnoses 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) Greta Heller PA-C [address] [address] Referral ID Status Reason Start Date Expiration Date V isits Requested Visits Authorized [id number] Pending Review 11/04/2023 11/03/2024 1 1 Question Answer Follow-up with: Other Co Teacher - Knapper Scheduling Instructions: [facility] will call you to coordinate your care as prescribed by your provider. If you have concerns about scheduling, please call [phone]. Comments [facility] will call you to coordinate your care as prescribed by your provider. If you have concerns about scheduling, please call [phone]. PRINTER Reason for Visit * Reason Comments CORE HFrEF * Consultation (Routine: Next available opening) - Pending Review Specialty Diagnoses / Procedures Referred By Contac t Referred To Contact Cardiovascular Disease Diagnoses 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) Greta Heller PA-C [address] [id number] Referral ID Status Reason Start Date Expiration Date V isits Requested Visits Authorized [id number] Pending Review 08/04/2023 08/03/2024 1 1 Encounter Details Date Type Department Care Team (Latest Contact Info) Description 11/04/2023 1:10 PM BOX PRINTER Office Visit [facility] [address] [address] Greta Heller PA-C [address] [place] [address] 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); Nonischemic cardiomyopathy (H); Chronic systolic (congestive) heart failure (H) Social History Tobacco Use Types Packs/Day Years Used Date Smoking Tobacco: Never Tobacco Cessation:Counseling Given: Not Answered Alcohol Use Standard Drinks/Week Comments Yes 0 (1 standard drink = 0.6 oz pur e alcohol) occ wine cooler PHQ-2 Answer Date Recorded PHQ-2 Score 0 11/04/2023 Adolescent Education Answer Date Record ed Getting School Help Needed Not on file 07/22 Sex and Gender Information Value Date Recorded Sex Assigned at Not on file Gender Identity Not on file Sexual Orientation Not on file documented as of this encounter Last Filed Vital Signs Vital Sign Reading Time Taken Comments Blood Pressure 112/58 11/04/2023 1:19 PM BOX PRINTER Pulse 64 11/04/2023 1:19 PM BOX PRINTER Temperature - - Respiratory Rate - - Oxygen Saturation 84% 11/04/2023 1:19 PM BOX PRINTER Inhaled Oxygen Concentration - - Weight - - Height 168.9 cm (5' 6.5) 11/04/2023 1:19 PM BOX PRINTER Body Mass Index - - documented in this encounter Patient Instructions * Patient Instructions* Greta Heller PA-C - 11/04/2023 1:10 PM BOX PRINTER Call CORE nurse for any questions or concerns Mon-Fri 8am-4pm: #[phone] For concerns after hours: #[phone] Medication changes: none Plan from today: Follow up with Dr. Snider in 6 months with an echocardiogram prior. PRINTER documented in this encounter Progress Notes * Greta Heller PA-C - 11/04/2023 1:10 PM CST Cardiology Clinic Progress Note Henok Chery Date of : 1935 Age: [age] year old Primary Co Teacher: Dr. Snider Reason for visit: CORE follow-up Assessment and Plan: Henok Chery is a very pleasant 88 year old male who is here today for CORE follow-up. Chronic systolic heart failure - LVEF: 30 to 35% on echo 12/10/2022; improved to 45% on echo 03/2023 - NYHA class III, stage C - Etiology: arrhythmogenic (given scar pattern on cMRI) versus PVC-mediated (17% burden) - Fluid status: euvolemic; suspected dry weight: 140# on home scale. 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 Denies symptoms concerning for angina or heart failure. He is currently tolerating a GDMT regimen of Entresto 49/51 mg and Toprol XL 12.5 mg once daily. He is not a great candidate for SGLT2i given chronic UTIs now requiring maintenance antibiotic therapy, nor is he a candidate for spironolactone given his issues with intermittent hyperkalemia. As such, I will not make any medication changes today. He is euvolemic and asymptomatic. Recommend repeating an echocardiogram in [address] Snider follow up. If patient continues to remain stable, perhaps follow up [id number] or [id number] would be reasonable given patient's desire to avoid appointments/lab draws. Greta Heller PA-C [facility] Pager: [phone] History of Presenting Illness: Henok Chery is a very pleasant 88 year old male with a history of hypothyroidism, bladder cancer status post nephrostomy tube placement and XRT, polycythemia vera, diabetes mellitus type 2, hypertension, mild to moderate CAD with the exception of moderate to severe disease in nondominant RCA,frequent PVCs, and chronic systolic heart failure with nonischemic cardiomyopathy (etiology undetermined). Mr. Chery has previously been followed by Dr. Zaman at [facility]. 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 Cor angio demonstrated mild to moderate CAD with moderate to severe diseasein a nondominant RCA. Cardiac MRI demonstrated mid basal septal fibrosis. Concurrently, he was diagnosed with bladder cancer and is now status post nephrostomy tube placement and XRT. In the fall of 2021, he was noted to have frequent PVCs and was seen at [facility] where he was noted to have episodes of symptomatic bradycardia. At that time, he was diagnosed with hypothyroidism. Started on levothyroxine with improvement in bradycardia. Patient was scheduled to see EP through [facility] in late November 2022 but presented to [facility] ED with malaise, weakness, nausea, and vomiting 12/09/2022. There, he was noted to have ongoing frequent polymorphic PVCs. EP was consulted and recommended o ptimization of GDMT. If EF remains low despite this, usage of amiodarone for PVC suppression was recommended. Not felt to be a good candidate for catheter ablation given polymorphic PVCs. Echocardiogram completed 12/10/2022 notable for LVEF 30-35%, moderate to severe global hypokinesia of the LV, mild MR, and mild to moderate TR. Patient was started on Entresto 24/26 mg twice daily at low-dose Toprol-XL 12.5 mg daily. PROCUREMENT CLERK torsemide 20 mg daily was resumed and later decreased to 10 mg daily during follow-up given hypotension, lightheadedness, and ongoing weight loss after discharge. Initiation of Jardiance has been discussed on several occasions, patient/family very hesitant. Echocardiogram 03/28/2023 revealed improvement in LVEF to 45%. Mild global hypokinesia of the LV remains. RV was normal in size, structure, and function. Mild aortic stenosis as well as mildly dilated ascending aorta were also noted. From a cardiac standpoint, patient has been stable for several months, denying symptoms concerning for angina or decompensated heart failure. He presents to clinic today for routine CORE follow up. Patient and his family prefer he only have lab work done at his PCP office once per month. Labs from 09/2023 revealed stable renal function andelectrolytes, with potassium remaining mildly elevated at 5.6. He will be getting repeat labs this . From a cardiac standpoint, patient continues to do well. Denies chest pain, palpitations, lightheadedness, dizziness, near syncope or syncope. He has chronic but stable KAY. No orthopnea or PND. His main issue over the past several months has been with recurrent UTIs. He has now been placed on maint enance antibiotic therapy which has helped tremendously. Takes all medications daily as prescribed. Blood pressure 112/58 and HR 64 in clinic today. Weight has been trending down due to decreased caloric intake, especially when struggling with a urinary tract infection. Dry weight 140#, has not needed PRN torsemide. does most of the cooking and watches her sodium intake closely. Patient with some foot pedaling exercises but otherwise is fairly sedentary. Consumes alcohol 3 times per week (1 beverage). Denies tobacco use. Social History Social History Socioeconomic History Marital status: Spouse name: Not on file Number of children: Not on file Years of education: Not on file Highest education level: Not on file Occupational History Not on file Tobacco Use Smoking status: Never Smokeless tobacco: Not on file Substance and Sexual Activity Alcohol use: Yes Comment: occ wine cooler Drug use: Not Currently Sexual activity: Not on file Other Topics Concern Parent/sibling w/ CABG, ME or angioplasty before 65F 55M? Not Asked Service Not Asked Blood Transfusions Not Asked Caffeine Concern Not Asked Occupational Exposure Not Asked Hobby Hazards Not Asked Sleep Concern Not Asked Stress Concern Not Asked Weight Concern Not Asked Special Diet Yes Comment: low carb Back Care Not Asked Exercise Yes Bike Helmet Not Asked Seat Belt Not Asked Self-Exams Not Asked Social History Narrative Not on file Social Determinants of Health Financial Resource Strain: Not on file Food Insecurity: Not on file Transportation Needs: Not on file Physical Activity: Not on file Stress: Not on file Social Connections: Not on file Interpersonal Safety: Not on file Housing Stability: Not on file Review of Systems: Please see HPI Physical Exam: Vitals: BP 112/58 (BP Location: Right arm, Patient Position: Sitting, Cuff Size: Adult Regular) Pulse 64 Ht 1.689 m (5' 6.5) SpO2 (!) 84% BMI 25.68 kg/m?? Wt Readings from Last 4 Encounters: 08/04/23 73.3 kg (161 lb 8 oz) 04/01/23 73 kg (161 lb) 02/20/23 76 kg (167 lb 8 oz) 01/09/23 74.4 kg (164 lb) GEN: well nourished, in no acute distress. HEENT: Pupils equal, round. Sclerae nonicteric. NECK: Supple, no masses appreciated. No JVD C/V: Regular rate and rhythm, soft systolic murmur at RUSB RESP: Respirations are unlabored. Clear to auscultation bilaterally without wheezing, rales, or rhonchi. GI: Abdomen soft, nontender. EXTREM: no LE edema. NEURO: Alert and oriented, cooperative. SKIN: Warm and dry. Data: LIPID RESULTS: Lab Results Component Value Date TRIG 130 02/27/2023 LIVER ENZYME RESULTS: Lab Results Component Value Date AST 14 01/28/2016 ALT 22 01/28/2016 CBC RESULTS: Lab Results Component Value Date WBC 18.3 (H) 12/25/2022 WBC 38.1 (H) 01/28/2016 RBC 3.18 (L) 12/25/2022 RBC 4.00 (L) 01/28/2016 HGB 11.6 (L) 08/04/2023 HGB 14.0 01/28/2016 HCT 31.3 (L) 12/25/2022 HCT 42.8 01/28/2016 MCV 98 12/25/2022 MCV 107 (H) 01/28/2016 MCH 28.0 12/25/2022 MCH 35.0 (H) 01/28/2016 MCHC 28.4 (L) 12/25/2022 MCHC 32.7 01/28/2016 RDW 20.2 (H) 12/25/2022 RDW 18.2 (H) 01/28/2016 PLT 372 12/25/2022 PLT 747 (H) 01/28/2016 BMP RESULTS: Lab Results Component Value Date NA 139 08/04/2023 NA 143 02/13/2016 POTASSIUM 5.9 (H) 08/04/2023 POTASSIUM 4.4 02/13/2016 CHLORIDE 103 09/01/2023 CHLORIDE 109 02/13/2016 CO2 29 08/04/2023 CO2 26 02/13/2016 ANIONGAP 7 08/04/2023 ANIONGAP 8 02/13/2016 GLC 294 (H) 08/04/2023 GLC 93 12/10/2022 GLC 171 (H) 02/13/2016 BUN 27.5 (H) 08/04/2023 BUN 25 02/13/2016 CR 1.18 (H) 08/04/2023 CR 1.03 02/13/2016 GFRESTIMATED 60 (L) 08/04/2023 GFRESTIMATED 70 02/13/2016 GFRESTBLACK 84 02/13/2016 KVNG 8.3 (L) 08/04/2023 KVNG 8.4 (L) 02/13/2016 A1C RESULTS: Lab Results Component Value Date A1C 6.7 (H) 12/09/2022 A1C 8.4 (H) 01/29/2016 INR RESULTS: No results found for: INR Medications Current Outpatient Medications Medication Sig Dispense Refill buPROPion (WELLBUTRIN XL) 300 MG 24 hr tablet Take 300 mg by mouth every morning Managed by PCP ferrous gluconate (FERGON) 324 (38 Fe) MG tablet 1 tablet every morning finasteride (PROSCAR) 5 MG tablet Take 5 mg by mouth daily Managed by PCP glipiZIDE (GLUCOTROL) 10 MG tablet Take 10 mg by mouth daily Managed by PCP hydroxyurea (HYDREA) 500 MG capsule 2 tabs/1000 mg QAM. Managed by PCP/Hematology lactobacillus rhamnosus, GG, (CULTURELL) capsule Take 1 capsule by mouth daily OTC per levothyroxine (SYNTHROID/LEVOTHROID) 200 MCG tablet Take 200 mcg by mouth every morning Managed by PCP metoprolol succinate ER (TOPROL XL) 25 MG 24 hr tablet Take 0.5 tablets (12.5 mg) by mouth daily 45tablet 3 omeprazole (PRILOSEC OTC) 20 MG EC tablet Take 20 mg by mouth daily sacubitril-valsartan (ENTRESTO) 49-51 MG per tablet Take 1 tablet by mouth 2 times daily 180 tablet3 tamsulosin (FLOMAX) 0.4 MG capsule Take 0.4 mg by mouth 2 times daily Managed by PCP torsemide (DEMADEX) 20 MG tablet 10-20 mg (1/2 to 1 tablet) once daily (Patient taking differently:10-20 mg (1/2 to 1 tablet) once daily, or PRN) 90 tablet 3 vitamin D3 (CHOLECALCIFEROL) 50 mcg (2000 units) tablet Take 1 tablet by mouth every other day Past Medical History Past Medical History: Diagnosis Date Depression Diabetes (H) type 2 Gout History of polycythemia vera 2000 Hypertension MRSA infection 05/17/2011 on his nose Squamous cell cancer of lip SVT (supraventricular tachycardia) wide complex tachycardia Past Surgical History: Procedure Laterality Date BIOPSY IR NEPHROSTOMY TUBE CHANGE LEFT 11/25/2022 IR NEPHROSTOMY TUBE CHANGE LEFT 02/25/2023 IR NEPHROSTOMY TUBE CHANGE LEFT 04/07/2023 IR NEPHROSTOMY TUBE CHANGE LEFT 07/09/2023 IR NEPHROSTOMY TUBE CHANGE LEFT 10/08/2023 Family History Problem Relation Age of Onset Coronary Artery Disease No family hx of Hypertension No family hx of Allergies Beta adrenergic blockers and Penicillins 40 minutes spent on the date of the encounter doing chart review, history and exam, documentation and further activities as noted above Greta Heller PA-C [facility] Pager: [phone] PRINTER documented in this encounter Plan of Treatment Upcoming Encounters Date Type Department Care Team (Late st Contact Info) Description 04/30/2024 12:30 PM CDT Appointment [facility] [address] [facility] [address] [place] [address] Greta Heller PA-C [address] [id number] 04/30/2024 1:30 PM CDT Lab [facility] [address] [address] [place] [phone] 05/05/2024 9:00 AM CDT Office Visit [facility] [address] [address] [place] [phone] Greta Heller PA-C [address] [address] Agustin Snider MD [address] [id number] Scheduled Orders Name Type Priority Associated Diagnoses Order Schedule Echocardiogram Complete Echocardiography Routine 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) Expected: 05/04/2024 (Approximate), Expires: 11/04/2024 N terminal pro BNP outpatient Lab Routine 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) Expected: 11/06/2023 (Approximate), Expires: 11/04/2024 Scheduled Referrals Name Type Priority Associated Diagnoses Orde r Schedule Follow-Up with Cardiology Referral Routine: Next available opening 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) Expected: 05/04/2024 (Approximate), Expires: 11/04/2024 documented as of this encounter Visit Diagnoses Diagnosis 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) Nonischemic cardiomyopathy (H) Other primary cardiomyopathies Chronic systolic (congestive) heart failure (H) documented in this encounter Care Teams Stock Raiser Relationship Specialty Start Date End Date Slava Edwards MD PCP - General Family Medicine 12/10/22 Kelley Carrillo, RN Registered Nurse Cardiology 02/11/23 Agustin Snider MD [address] [id number] Assigned Heart and Vascular Provider 04/05/23 Idania Pearce, RN Registered Nurse Cardiology 10/30/23 documented as of this encounter
--- OUTSIDE RECORDS SUMMARY | 2023-11-06 14:10 | XMS_ITS | Encounter Summary ---
Author Name Unknown Organization [facility] Address [address] [place] [address] Care Team Providers Care Toy Trains And Accessories Salesperson Name Role Phone Slava Edwards MD Primary Care Provider [phone] Kelley Carrillo RN Unavailable Unavaila ble Agustin Snider MD Unavailable [phone] Idania Pearce RN Unavailable Unavaila ble Encounter Details Date Type Department Care Team (Latest Contact Info) Description 11/04/2023 Travel Social History Tobacco Use Types Packs/Day Years Used Date Smoking Tobacco: Never Alcohol Use Standard Drinks/Week Comments Yes 0 [...] Info) Description 04/30/2024 12:30 PM CDT Appointment [facility] Specialty Care [address] [facility] [address] [place] [address] Greta Heller PA-C [address] [address] 04/30/2024 1:30 PM CDT Lab [facility] [address] [place] [phone] 05/05/2024 9:00 AM CDT Office Visit [facility] [address] [place] [phone] Greta Heller PA-C [address] [id number] Agustin Snider MD [address] [id number] documented as of this encounter Visit Diagnoses Not on filedocumented in this encounter Care Teams Toy [employer] And Accessories Salesperson Relationship Specialty Start Date End Date Slava Edwards MD PCP - General Family Medicine 12/10/22 Kelley Carrillo, CLARA Registered Nurse Cardiology 02/11/23 Agustin Snider MD [address] [id number] Assigned Heart and Vascular Provider 04/05/23 Idania Pearce, RN Registered Nurse Cardiology 10/30/23 documented as of this encounter
--- OUTSIDE RECORDS SUMMARY | 2023-11-06 14:10 | XMS_ITS | Clinical Summary ---
Author Name Unknown Organization [facility] Address [address] [place] [id number] Care Team Providers Care Clinical Engineering Manager Name Role Phone Slava Edwards MD Primary Care Provider [phone] Kelley Carrillo RN Unavailable Unavaila ble Agustin Snider MD Unavailable [phone] Idania Pearce RN Unavailable Unavaila ble Allergies Active Allergy Reactions Criticality Noted Date Comments Beta Adrenergic Blockers Other (See Comments) 12/27/2021 Other reaction(s): Bradycardia Bradycardia Penicillins 01/28/2016 Medications Medication Sig Dispensed Refills Start Date End Date Status hydroxyurea (HYDREA) 500 MG capsule 2 tabs/1000 mg QAM 5 days of the week. 3 tabs/1500 the other 2 days of the week. Managed by PCP/Hematolog y 0 Active tamsulosin (FLOMAX) 0.4 MG capsule Take 0.4 mg by mouth 2 times daily Managed by PCP 0 2 Active finasteride (PROSCAR) 5 MG tablet Take 5 mg by mouth daily Managed by PCP 0 2 Active omeprazole (PRILOSEC OTC) 20 MG EC tablet Take 20 mg by mouth daily 0 Active glipiZIDE (GLUCOTROL) 10 MG tablet Take 10 mg by mouth daily Managed by PCP 0 Active buPROPion (WELLBUTRIN XL) 300 MG 24 hr tablet Take 300 mg by mouth every morning Managed by PCP 0 Active vitamin D3 (CHOLECALCIFEROL) 50 mcg (2000 units) tablet Take 1 tablet by mouth every other day 0 Active metoprolol succinate ER (TOPROL XL) 25 MG 24 hr tabletIndications: 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) Take 0.5 tablets (12.5 mg) by mouth daily 45 tablet 3 3 Active ferrous gluconate (FERGON) 324 (38 Fe) MG tablet 1 tablet every morning 0 3 Active sacubitril-valsart an (ENTRESTO) 49-51 MG per tabletIndications: Nonischemic cardiomyopathy (H),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) Take 1 tablet by mouth 2 times daily 180 tablet 3 3 Active levothyroxine (SYNTHROID/LEVOTHR OID) 200 MCG tablet Take 200 mcg by mouth every morning Managed by PCP 0 Active torsemide (DEMADEX) 20 MG tabletIndications: 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),Nonischemic cardiomyopathy (H),Chronic systolic (congestive) heart failure (H) 10-20 mg (1/2 to 1 tablet) once daily as needed for fluid retention 90 tablet 3 4 Active torsemide (DEMADEX) 20 MG tabletIndications: Nonischemic cardiomyopathy (H),Chronic systolic (congestive) heart failure (H),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) 10-20 mg (1/2 to 1 tablet) once daily 90 tablet 3 3 11/04/19 24 Discontinued lactobacillus rhamnosus, GG, (CULTURELL) capsule Take 1 capsule by mouth daily OTC per 0 11/04/19 24 Discontinued(Sto pped by Patient (No AVS)) Active Problems Problem Noted Date Diagnosed Date Nonischemic cardiomyopathy 04/01/2023 Chronic HFrEF (heart failure with reduced ejection fraction) 04/01/2023 Diabetes mellitus, 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 Bradycardia 12/09/2022 Tachycardia 01/28/2016 Encounters Date Type Department Care Team Description 11/04/2023 1:10 PM [facility] Office Visit [address] [address] Greta Heller PA-C 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); Nonischemic cardiomyopathy (H); Chronic systolic (congestive) heart failure (H) 11/04/2023 Travel 10/08/2023 8:04 AM [facility] - 10/08/2023 9:48 AM [facility] Hospital Encounter [facility] [address] [place] [address] Austen Christianson MD Nygard, Adam, MD Unilateral hydronephrosis Discharge Disposition: Home or Self Care 10/07/2023 Telephone [facility] Interventional Radiology [address] [place] [address] Melvin Goodwin RN 09/15/2023 Orders Only [facility] Interventional Radiology [address] [facility] [place] [id number] Elvia Cortez RN Unilateral hydronephrosis (Primary Dx) 09/01/2023 External Order Results [facility] [address] [place] [address] Outside, Provider 08/27/2023 Telephone [facility] [address] [facility] [address] [place] [address] Idania Pearce RN CORE (BMP 09/01/2023) 08/11/2023 Telephone [facility] [address] [place] [address] Kelley Carrillo RN CORE (Repeat labs needed 08/08/23) from Last 3 Months Family History Medical History Relation Comments Coronary Artery Disease No family hx of Hypertension No family hx of Social History Tobacco Use Types Packs/Day Years [...] on file Sexual Orientation Not on file Last Filed Vital Signs Vital Sign Reading Time Taken Comments Blood Pressure 112/58 11/04/2023 1:19 PM [facility] Pulse 64 11/04/2023 1:19 PM [facility] Temperature 36.4 ??C (97.6 ??F) 10/08/2023 8 :20 AM [facility] Respiratory Rate 14 10/08/2023 9:18 AM [facility]ER Oxygen Saturation 84% 11/04/2023 1:1 9 PM [facility] Inhaled Oxygen Concentration - - Weight 73.3 kg (161 lb 8 oz) 08/04/2023 1:22 PM CDT 150# HOMEW WT Height 168.9 cm (5' 6.5) 11/04/2023 1: 19 PM [facility] Body Mass Index 25.68 08/04/2023 1:22 PM CDT Plan of Treatment Upcoming Encounters Date Type Department Care Team (Late st Contact Info) Description 04/30/2024 12:30 PM CDT Appointment [facility] [address] [place] [address] [address] [place] [address] Greta Heller PA-C [address] [address] 04/30/2024 1:30 PM CDT Lab [facility] [id number] [place] [address] [address] [place] [address] 05/05/2024 9:00 AM CDT Office Visit [address] [place] [address] Greta Heller PA-C [address] [address] Agustin Snider MD [address] [address] Health Maintenance Due Date Last Done Comments ANNUAL REVIEW OF HM ORDERS 1937 DIABETIC FOOT EXAM 1937 EYE EXAM 1937 HF ACTION PLAN 1937 MICROALBUMIN 1937 RSV VACCINE ( & 60+) (1 - 1-dose 60+ series) 1997 FALL RISK ASSESSMENT 2002 MEDICARE ANNUAL WELLNESS VISIT 2002 ZOSTER IMMUNIZATION (1 of 2) 03/30/2014 02/02/2014 DTAP/TDAP/TD IMMUNIZATION (1 - Tdap) 12/08/2019 12/07/2019, 12/07/2019 COVID-19 Vaccine (3 - Moderna risk series) 03/09/2021 02/09/2021, 01/10/2021 A1C 05/30/2023 02/27/2023, 11/21, 01/29/2016 INFLUENZA VACCINE (#1) 2023 , 07/26/2019, 07/26/2019, Additional history exists ALT 02/17/2024 02/16/2023, 01/28/2016 LIPID 02/28/2024 02/27/2023, 02/27/2023 BMP 03/01/2024 09/01/2023, 07/20, 08/04/2023, Additional history exists CBC 09/01/2024 09/01/2023, 07/20, 12/25/2022, Additional history exists ADVANCE CARE PLANNING 12/17/2027 12/17/2022 Pneumococcal Vaccine: 65+ Years Completed 03/29/2015, 03/20/2008 TSH W/FREE T4 REFLEX Completed 08/04/2023, 02/27/2023, 12/09/2022, Additional history exists PHQ-2 (once per calendar year) Completed 11/04/2023, 01/09/2023 HPV IMMUNIZATION Aged Out No longer e ligible based on patient's age to complete this topic IPV IMMUNIZATION Aged Out No longer e ligible based on patient's age to complete this topic MENINGITIS IMMUNIZATION Aged Out No l onger eligible based on patient's age to complete this topic RSV MONOCLONAL ANTIBODY Aged Out No l onger eligible based on patient's age to complete this topic Medical Devices Implanted Type Area Thread Twister Device Identifier Shelf Expiration Date Model / Serial / Lot Neph Tube- 3 Implanted:Qty: 1 on 10/08/2023 by Juanito Guzman MD Catheter Left: Ureter COOK / / [id number] Explanted Type Area Thread Twister Device Identifier Shelf Expiration Date Model / Serial / Lot Nephrostomy Tube-02/25/2023 Implanted:Qty: 1 on 02/25/2023 by Shelley Saab DO Explanted:Qty: 1 on 04/07/2023 by Kaveh Aguayo MD Catheter Left: Kidney 10/31/2025 / / [id number] Procedures Procedure Name Priority Date/Time Associated Diagnosis Comments IR NEPHROSTOMY TUBE CHANGE LEFT Routine 10/08/2023 9:26 AM [facility] Unilateral hydronephrosis CBC WITH PLATELETS & DIFFERENTIAL Routine 09/01/2023 8:49 AM [facility] BASIC METABOLIC PANEL Routine 09/01/2023 8:49 AM [facility]ER N TERMINAL PRO BNP OUTPATIENT Routine 09/01/2023 8:49 AM [facility]ER ROUTINE UA WITH MICROSCOPIC Routine 09/01/2023 8:49 AM P[facility]ER from Last 3 Months Results * IR Nephrostomy Tube Change Left (10/08/2023 9:26 AM P[facility]ER) Anatomical Region Laterality Modality Abdomen/Pelvis Radio Fluoroscop y, Radio Fluoroscopy Impressions 10/08/2023 9:34 AM [facility] IMPRESSION: 1. Uneventful left nephrostomy catheter exchange. Plan: The patient should return in 3 months for routine catheter change JUANITO GUZMAN MD Narrative 10/08/2023 9:34 AM [facility]: LEFT NEPHROSTOMY TUBE CHANGE LOCATION: [facility] CLINICAL HISTORY: The patient has a history of bladder cancer requiring chronic left nephrostomy catheter and presents for routine percutaneous nephrostomy tube change. PROCEDURES PERFORMED: 1. Antegrade nephrostogram through existing tube. 2. Over the wire catheter exchange. 3. Completion nephrostogram. MODERATE SEDATION: None ADDITIONAL MEDICATIONS: None CONTRAST: See EMR FLUOROSCOPIC TIME: 0.8 minutes CUMULATIVE AIR KERMA/DOSE: 21 mGy STERILE BARRIER TECHNIQUE: Maximal Sterile Barrier Technique Utilized: Cap AND mask AND sterile gown AND sterile gloves AND sterile full body drape AND hand hygiene AND skin preparation 2% chlorhexidine for cutaneous antisepsis (or acceptable alternative antiseptics). ?? Sterile Ultrasound Technique Utilized ?Sterile gel AND sterile probe covers. UNIVERSAL PROTOCOL: Standard universal protocol per facility guidelines was followed. See EMR for documentation. TECHNIQUE: The patient was placed in the right lateral decubitus position on the angiography table and prepped and draped in the usual sterile fashion. The existing nephrostomy tube was instilled with contrast, and a nephrostogram was obtained. The pigtail retention suture was released, and the catheter was then removed over a wire, and exchanged for a new nephrostomy tube. The pigtail loop was engaged. Completion nephrostogram was performed. The catheter was secured to the skin, and placed to gravity drainage. The patient tolerated the procedure well and there were no immediate complications. FINDINGS: The existing 12 Cuban nephrostomy tube is in the renal collecting system. The catheter is patent and there is no hydronephrosis. The new 12 Cuban nephrostomy tube is in good position. Procedure Note Juanito Guzman MD - 10/08/2023 [facility] EXAM: LEFT NEPHROSTOMY TUBE CHANGE LOCATION: [facility] CLINICAL HISTORY: The patient has a history of bladder cancer requiring chronic left nephrostomy catheter and presents for routine percutaneous nephrostomy tube change. PROCEDURES PERFORMED: 1. Antegrade nephrostogram through existing tube. 2. Over the wire catheter exchange. 3. Completion nephrostogram. MODERATE SEDATION: None ADDITIONAL MEDICATIONS: None CONTRAST: See EMR FLUOROSCOPIC TIME: 0.8 minutes CUMULATIVE AIR KERMA/DOSE: 21 mGy STERILE BARRIER TECHNIQUE: Maximal Sterile Barrier Technique Utilized: Cap AND mask AND sterile gown AND sterile gloves AND sterile full body drape AND hand hygiene AND skin preparation 2% chlorhexidine for cutaneous antisepsis (or acceptable alternative antiseptics). Sterile Ultrasound Technique Utilized ?Sterile gel AND sterile probe covers. UNIVERSAL PROTOCOL: Standard universal protocol per facility guidelines was followed. See EMR for documentation. TECHNIQUE: The patient was placed in the right lateral decubitus position on the angiography table and prepped and draped in the usual sterile fashion. The existing nephrostomy tube was instilled with contrast, and a nephrostogram was obtained. The pigtail retention suture was released, and the catheter was then removed over a wire, and exchanged for a new nephrostomy tube. The pigtail loop was engaged. Completion nephrostogram was performed. The catheter was secured to the skin, and placed to gravity drainage. The patient tolerated the procedure well and there were no immediate complications. FINDINGS: The existing 12 Cuban nephrostomy tube is in the renal collecting system. The catheter is patent and there is no hydronephrosis. The new 12 Cuban nephrostomy tube is in good position. IMPRESSION: 1. Uneventful left nephrostomy catheter exchange. Plan: The patient should return in 3 months for routine catheter change JUANITO GUZMAN MD Austen Christianson MD IMG IR ORDERAB LES * (ABNORMAL) CBC with Platelets & Differential (09/01/2023 8:49 AM [facility]ER) WBC Count (External) 42.27(HH) 4.50 - 11.00 K/uL NON-INTERFACE D (ONBASE SCANS) RBC Count (External) 3.80(L) 4.30 - 5.90 m/uL NON-INTERFACE D (ONBASE SCANS) Hemoglobin (External) 12.2(L) 13.5 - 17.5 gm/dL NON-INTERFACE D (ONBASE SCANS) Hematocrit (External) 41.3 37.0 - 53.0 % NON-INTERFACE D (ONBASE SCANS) MCV (External) 109(H) 80 - 100 fL NON-INTERFACE D (ONBASE SCANS) MCH (External) 32 26 - 34 pg NON-INTERFACE D (ONBASE SCANS) MCHC (External) 30(L) 32 - 36 gm/dL NON-INTERFACE D (ONBASE SCANS) Platelet Count (External) 290 140 - 440 K/uL NON-INTERFACE D (ONBASE SCANS) % Neutrophils (External) 91.0(H) 42.0 - 72.0 % NON-INTERFACE D (ONBASE SCANS) % Lymphocytes (External) 3.5(L) 20 - 44 % NON-INTERFACE D (ONBASE SCANS) % Monocytes (External) 2.8 0.0 - 11.0 % NON-INTERFACE D (ONBASE SCANS) % Eosinophils (External) 1.2 0.0 - 7.0 % NON-INTERFACE D (ONBASE SCANS) % Basophils (External) 1.5 0.0 - 3.0 % NON-INTERFACE D (ONBASE SCANS) Absolute Neutrophils (External) 38.50(H) 1.7 - 7.0 K/uL NON-INTERFACE D (ONBASE SCANS) Absolute Lymphocytes (External) 1.50 0.90 - 2.90 K/uL NON-INTERFACE D (ONBASE SCANS) Absolute Monocytes (External) 1.20(H) 0.00 - 0.90 K/UL NON-INTERFACE D (ONBASE SCANS) Absolute Eosinophils (External) 0.50 0.00 - 0.50 K/uL NON-INTERFACE D (ONBASE SCANS) Absolute Basophils (External) 0.60(H) 0.00 - 0.30 K/uL NON-INTERFACE D (ONBASE SCANS) Scan Lab Results (External) See Scanned Report NON-INTERFACE D (ONBASE SCANS) Comment:Slide Review Blood BLOOD SPECIMEN / Unknown 09/01/2023 8:49 AM [facility]ER Narrative [facility] - 09/01/2023 8:49 AM [facility] Verified by Marissa Felix on 09/02/2023. Verified by Marissa Felix on 09/02/2023. Slava Edwards MD LAB - BLOOD ORDERABL ES [facility] NON-INTERFACED (ONBASE SCANS) * (ABNORMAL) UA with Microscopic (09/01/2023 8:49 AM [facility]) Color Urine (External) YEL Yellow NON-INTERFAC ED (ONBASE SCANS) Appearance Urine (External) Cloudy(A) Clear NON-INTERFAC ED (ONBASE SCANS) Glucose Urine (External) NEG Negative NON-INTERFAC ED (ONBASE SCANS) Bilirubin Urine (External) NEG Negative NON-INTERFAC ED (ONBASE SCANS) Ketones Urine (External) NEG Negative NON-INTERFAC ED (ONBASE SCANS) Specific [place] Urine (External) 1.020 1.000 - 1.030 NON-INTERFAC ED (ONBASE SCANS) Blood Urine (External) 1+(A) Negative NON-INTERFAC ED (ONBASE SCANS) pH Urine (External) 6.0 5.0 - 8.5 NON-INTERFAC ED (ONBASE SCANS) Protein Albumin Ur (External) 3+(A) Negative NON-INTERFAC ED (ONBASE SCANS) Urobilinogen (External) 0.2 0.2 - 1.0 NON-INTERFAC ED (ONBASE SCANS) Nitrites Urine (External) NEG Negative NON-INTERFAC ED (ONBASE SCANS) Leukocyte Esterase Urine (External) 1+(A) Negative NON-INTERFAC ED (ONBASE SCANS) RBC Urine (External) 5-10(A) 0 - 2 NON-INTERFAC ED (ONBASE SCANS) WBC Urine (External) 5-10(A) 0 - 5 NON-INTERFAC ED (ONBASE SCANS) WBC Clumps Urine (External) Few(A) None NON-INTERFAC ED (ONBASE SCANS) Squamous Epithelial Urine (External) None None-Few NON-INTERFAC ED (ONBASE SCANS) Bacteria Urine (External) Moderate( A) None NON-INTERFAC ED (ONBASE SCANS) Urine 09/01/2023 8:49 AM [facility] Narrative [facility] - 09/02/2023 8:51 AM [facility] Verified by Marissa Felix on 09/02/2023. Slava Edwards MD LAB - URINE ORDERABL ES Performing Organization Address [facility] Co de Phone Number [facility] NON-INTERFACED (ONBASE SCANS) * (ABNORMAL) N terminal pro BNP outpatient (09/01/2023 8:49 AM [facility]) N-Terminal Pro BNP (External) 4,620(H) <125 pg/mL NON-INTERFACE D (ONBASE SCANS) Blood BLOOD SPECIMEN / Unknown 09/01/2023 8:49 AM [facility] Narrative [facility] - 09/02/2023 9:00 AM [facility] Verified by Marissa Felix on 09/02/2023. Slava Edwards MD LAB - BLOOD ORDERABL ES [facility] NON-INTERFACED (ONBASE SCANS) * (ABNORMAL) Basic metabolic panel (09/01/2023 8:49 AM [facility]) Sodium (External) 139 135 - 149 mmol/L NON-INTERFACED (ONBASE SCANS) Potassium (External) 4.9 3.6 - 5.1 mmol/L NON-INTERFACED (ONBASE SCANS) Chloride (External) 103 96 - 114 mmol/L NON-INTERFACED (ONBASE SCANS) CO2 (External) 30 20 - 32 mmol/L NON-INTERFACED (ONBASE SCANS) Anion Gap (External) 6(L) 7 - 15 mEq/L NON-INTERFACED (ONBASE SCANS) Urea Nitrogen (External) 28 7 - 30 mg/dL NON-INTERFACED (ONBASE SCANS) Creatinine (External) 1.1 0.5 - 1.5 mg/dL NON-INTERFACED (ONBASE SCANS) GFR Estimated (External) 65 ml/min NON-INTERFACED (ONBASE SCANS) Calcium (External) 8.3(L) 8.4 - 10.6 mg/dL NON-INTERFACED (ONBASE SCANS) Glucose (External) 152(H) 60 - 115 mg/dL NON-INTERFACED (ONBASE SCANS) Blood BLOOD SPECIMEN / Unknown 09/01/2023 8:49 AM [facility] Narrative [facility] - 09/02/2023 9:00 AM [facility] Verified by Marissa Felix on 09/02/2023. Slava Edwards MD LAB - BLOOD ORDERABL ES [facility] NON-INTERFACED (ONBASE SCANS) from Last 3 Months Advance Directives For more information, please contact: [phone] Latest Code Status on File Code Status Date Activated Date Inactivated Comments No CPR- Do NOT Intubate 12/09/2022 3:46 PM 12/10/2022 6:35 PM NO basic or advanced life-sustaining interventions are performed Okay with reversal of CODE STATUS for planned procedures Question Answer Comments Code status determined by: Discussion with patient/ legal decision maker Code Status History Code Status Date Activated Date Inactivated Comments Full Code 01/29/2016 3:25 PM 11/25/2022 8:45 AM Full Code 01/28/2016 4:37 PM 01/29/2016 3:25 PM Care Teams Clinical Engineering Manager Relationship Specialty Start Date End Date Slava Edwards MD PCP - General Family Medicine 12/10/22 Kelley Carrillo, RN Registered Nurse Cardiology 02/11/23 Agustin Snider MD [address] [address] Assigned Heart and Vascular Provider 04/05/23 Idania Pearce, RN Registered Nurse Cardiology 10/30/23
--- OUTSIDE RECORDS SUMMARY | 2023-11-06 14:10 | XMS_ITS | Referral Summary ---
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); Nonischemic cardiomyopathy (H); Chronic systolic (congestive) heart failure (H) 10/08/2023 8:04 AM HAY BALER - 10/08/2023 9:48 AM HAY BALER Hospital Encounter [facility] [address] [place] [phone] Austen Christianson MD Nygard, Adam, MD Unilateral hydronephrosis Discharge Disposition: Home or Self Care 10/07/2023 Telephone [facility] Interventional Radiology [address] [place] [address] Melvin Goodwin, RN 09/15/2023 Orders Only [facility] Interventional Radiology [address] [place] [phone] Elvia Cortez RN Unilateral hydronephrosis (Primary Dx) 09/01/2023 External Order Results [facility] [address] [place] [address] Outside, Provider 08/27/2023 Telephone [facility] [address] [place] [address] Idania Pearce RN CORE (BMP 09/01/2023) 08/11/2023 Telephone [facility] [address] [place] [address] Kelley Carrillo RN CORE (Repeat labs needed 08/08/23) from Last 3 Months Allergies Active Allergy Reactions Criticality Noted Date [...] 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 Bradycardia 12/09/2022 Tachycardia 01/28/2016 Social History Tobacco Use Types Packs/Day Years [...] Comments Blood Pressure 112/58 11/04/2023 1:19 PM HAY BALER Pulse 64 11/04/2023 1:19 PM HAY BALER Temperature 36.4 ??C (97.6 ??F) 10/08/2023 8 :20 AM HAY BALER Respiratory Rate 14 10/08/2023 9:18 AM HAY BALER Oxygen Saturation 84% 11/04/2023 1:1 9 PM HAY BALER Inhaled Oxygen Concentration - - Weight 73.3 kg (161 lb 8 oz) 08/04/2023 1:22 PM CDT 150# HOMEW WT Height 168.9 cm (5' 6.5) 11/04/2023 1: 19 PM HAY BALER Body Mass Index 25.68 08/04/2023 1:22 PM CDT Plan of Treatment Upcoming Encounters Date Type Department Care Team (Late st Contact Info) Description 04/30/2024 12:30 PM CDT Appointment [facility] [address] [place] [address] [address] [place] [address] Greta Heller PA-C [address] [address] 04/30/2024 1:30 PM CDT Lab [facility] [address] [place] [address] 05/05/2024 9:00 AM CDT Office Visit [address] [place] [address] Greta Heller PA-C [address] [address] Agustin Snider MD [address] [address] Medical Devices Implanted Type Area Steam Locomotive Firer/Fireman Device Identifier Shelf Expiration Date Model / Serial / Lot Neph Tube- 3 Implanted:Qty: 1 on 10/08/2023 by Juanito Guzman MD Catheter Left: Ureter COOK / / [id number] Explanted Type Area Steam Locomotive Firer/Fireman Device Identifier Shelf Expiration Date Model / Serial / Lot Nephrostomy Tube-02/25/2023 Implanted:Qty: 1 on 02/25/2023 by Shelley Saab DO Explanted:Qty: 1 on 04/07/2023 by Kaveh Aguayo MD Catheter Left: Kidney 10/31/2025 / / [id number] Procedures Procedure Name Priority Date/Time Associated Diagnosis Comments IR NEPHROSTOMY TUBE CHANGE LEFT Routine 10/08/2023 9:26 AM HAY BALER Unilateral hydronephrosis CBC WITH PLATELETS & DIFFERENTIAL Routine 09/01/2023 8:49 AM HAY BALER BASIC METABOLIC PANEL Routine 09/01/2023 8:49 AM HAY BALER N TERMINAL PRO BNP OUTPATIENT Routine 09/01/2023 8:49 AM HAY BALER ROUTINE UA WITH MICROSCOPIC Routine 09/01/2023 8:49 AM HAY BALER from Last 3 Months Results * IR Nephrostomy Tube Change Left (10/08/2023 9:26 AM HAY BALER) Anatomical Region Laterality Modality Abdomen/Pelvis Radio Fluoroscop y, Radio Fluoroscopy Impressions 10/08/2023 9:34 AM HAY BALER IMPRESSION: 1. Uneventful left nephrostomy catheter exchange. Plan: The patient should return in 3 months for routine catheter change JUANITO GUZMAN MD [facility] 10/08/2023 9:34 AM [facility] LEFT NEPHROSTOMY TUBE CHANGE LOCATION: [facility] CLINICAL HISTORY: The patient has a [...] no immediate complications. FINDINGS: The existing 12 [place] nephrostomy tube is in the renal collecting system. The catheter is patent and there is no hydronephrosis. The new 12 [place] nephrostomy tube is in good position. Procedure Note Juanito Guzman MD - 10/08/2023 [facility] EXAM: LEFT NEPHROSTOMY TUBE CHANGE LOCATION: [facility] CLINICAL HISTORY: The patient has a [...] no immediate complications. FINDINGS: The existing 12 [place] nephrostomy tube is in the renal collecting system. The catheter is patent and there is no hydronephrosis. The new 12 [place] nephrostomy tube is in good position. IMPRESSION: 1. Uneventful left nephrostomy catheter exchange. Plan: The patient should return in 3 months for routine catheter change JUANITO GUZMAN MD Austen Christianson MD IMG IR ORDERAB LES * (ABNORMAL) CBC with Platelets & Differential (09/01/2023 8:49 AM HAY BALER) WBC Count (External) 42.27(HH) 4.50 - 11.00 [...] BLOOD SPECIMEN / Unknown 09/01/2023 8:49 AM HAY BALER Narrative [place] [facility] - 09/01/2023 8:49 AM HAY BALER Verified by Marissa Felix on 09/02/2023. Verified by Marissa Felix on 09/02/2023. Slava Edwards MD LAB - BLOOD ORDERABL ES [place] NON-INTERFACED (ONBASE SCANS) * (ABNORMAL) UA with Microscopic (09/01/2023 8:49 AM HAY BALER) Color Urine (External) YEL Yellow NON-INTERFAC ED (ONBASE SCANS) Appearance Urine (External) Cloudy(A) Clear NON-INTERFAC ED (ONBASE SCANS) Glucose Urine (External) NEG Negative NON-INTERFAC ED (ONBASE SCANS) Bilirubin Urine (External) NEG Negative NON-INTERFAC ED (ONBASE SCANS) Ketones Urine (External) NEG Negative NON-INTERFAC ED (ONBASE SCANS) Specific [place] Urine (External) 1.020 1.000 - 1.030 NON-INTERFAC [...] ED (ONBASE SCANS) Urine 09/01/2023 8:49 AM HAY BALER Narrative [place] [facility] - 09/02/2023 8:51 AM HAY BALER Verified by Marissa Felix on 09/02/2023. Slava Edwards MD LAB - URINE ORDERABL ES Performing Organization Address [facility]/ZIP Co de Phone Number [place] [facility] NON-INTERFACED (ONBASE SCANS) * (ABNORMAL) N terminal pro BNP outpatient (09/01/2023 8:49 AM HAY BALER) N-Terminal Pro BNP (External) 4,620(H) <125 pg/mL NON-INTERFACE D (ONBASE SCANS) Blood BLOOD SPECIMEN / Unknown 09/01/2023 8:49 AM HAY BALER Narrative [place] [facility] - 09/02/2023 9:00 AM HAY BALER Verified by Marissa Felix on 09/02/2023. Slava Edwards MD LAB - BLOOD ORDERABL ES [place] [facility] NON-INTERFACED (ONBASE SCANS) * (ABNORMAL) Basic metabolic panel (09/01/2023 8:49 AM HAY BALER) Sodium (External) 139 135 - 149 mmol/L [...] BLOOD SPECIMEN / Unknown 09/01/2023 8:49 AM HAY BALER Narrative [place] [facility] - 09/02/2023 9:00 AM HAY BALER Verified by Marissa Felix on 09/02/2023. Slava Edwards MD LAB - BLOOD ORDERABL ES [place] NON-INTERFACED (ONBASE SCANS) from Last 3 Months Advance Directives For more information, please contact: [phone] Latest Code Status on File Code Status [...] 4:37 PM 01/29/2016 3:25 PM Care Teams Legal Librarian Relationship Specialty Start Date End Date Slava Edwards MD PCP - General Family Medicine 12/10/22 Kelley Carrillo, CLARA Registered Nurse Cardiology 02/11/23 Agustin Snider MD [address] [address] Assigned Heart and Vascular Provider 04/05/23 Idania Pearce, RN Registered Nurse Cardiology 10/30/23
--- OUTSIDE RECORDS SUMMARY | 2023-11-06 14:11 | XMS_ITS | Encounter Summary ---
Author Name Unknown Organization [facility] Address [address] [place] [address]. [place] [address] Care Team Providers Care Barrel Loader Name Role Phone Slava Edwards MD Primary Care Provider [phone] Kelley Carrillo RN Unavailable Unavaila ble Agustin Snider MD Unavailable [phone] Idania Pearce RN Unavailable Unavaila ble Encounter Details Date Type Department Care Team (Late st Contact Info) Description 09/01/2023 External Order Results [facility] [address] [place] [address] Outside, Provider Social History Tobacco Use Types Packs/Day Years Used Date Smoking Tobacco: Never Alcohol Use Standard Drinks/Week Comments Yes 0 (1 standard drink = 0.6 oz pur e alcohol) occ wine cooler PHQ-2 Answer Date Recorded PHQ-2 Score 0 01/09/2023 Adolescent Education Answer Date Record ed Getting School Help Needed Not on file 07/22 Sex and Gender Information Value Date Recorded Sex Assigned at Not on file Gender Identity Not on file Sexual Orientation Not on file documented as of this encounter Plan of Treatment Upcoming Encounters Date Type Department Care Team (Late st Contact Info) Description 04/30/2024 12:30 PM CDT Appointment [facility] [address] [place] [address] Greta Heller PA-C [address] [address] 04/30/2024 1:30 PM CDT Lab [facility] [address] [place] [phone] 05/05/2024 9:00 AM CDT Office Visit [facility] [address] [place] [phone] Greta Heller PA-C [address] [address] Agustin Snider MD [address] [address] documented as of this encounter Procedures Procedure Name Priority Date/Time Associated Diagnosis Comments CBC WITH PLATELETS & DIFFERENTIAL Routine 09/01/2023 8:49 AM ROPE WALKER ROUTINE UA WITH MICROSCOPIC Routine 09/01/2023 8:49 AM ROPE WALKER N TERMINAL PRO BNP OUTPATIENT Routine 09/01/2023 8:49 AM ROPE WALKER BASIC METABOLIC PANEL Routine 09/01/2023 8:49 AM ROPE WALKER documented in this encounter Results * (ABNORMAL) Basic metabolic panel (09/01/2023 8:49 AM ROPE WALKER) Sodium (External) 139 135 - 149 mmol/L [...] BLOOD SPECIMEN / Unknown 09/01/2023 8:49 AM ROPE WALKER Narrative [facility] - 09/02/2023 9:00 AM ROPE WALKER Verified by Marissa Felix on 09/02/2023. Slava Edwards MD LAB - BLOOD ORDERABL ES Performing Organization Address [facility] [address] [facility] de Phone Number [facility] NON-INTERFAC[facility] (ONBASE SCANS) * (ABNORMAL) N terminal pro BNP outpatient (09/01/2023 8:49 AM ROPE WALKER) N-Terminal Pro BNP (External) 4,620(H) <125 pg/mL NON-INTERFACE D (ONBASE SCANS) Blood BLOOD SPECIMEN / Unknown 09/01/2023 8:49 AM ROPE WALKER Narrative [facility] [facility] - 09/02/2023 9:00 AM ROPE WALKER Verified by Marissa Felix on 09/02/2023. Slava Edwards MD LAB - BLOOD ORDERABL ES Performing Organization Address [facility] [address] [facility]/ZIP Co de Phone Number [facility] NON-INTERFACED (ONBASE SCANS) * (ABNORMAL) CBC with Platelets & Differential (09/01/2023 8:49 AM ROPE WALKER) WBC Count (External) 42.27(HH) 4.50 - 11.00 [...] BLOOD SPECIMEN / Unknown 09/01/2023 8:49 AM ROPE WALKER Narrative [place] [facility] - 09/01/2023 8:49 AM ROPE WALKER Verified by Marissa Felix on 09/02/2023. Verified by Marissa Felix on 09/02/2023. Slava Edwards MD LAB - BLOOD ORDERABL ES [place] NON-INTERFACED (ONBASE SCANS) * (ABNORMAL) UA with Microscopic (09/01/2023 8:49 AM ROPE WALKER) Color Urine (External) YEL Yellow NON-INTERFAC ED (ONBASE SCANS) Appearance Urine (External) Cloudy(A) Clear NON-INTERFAC ED (ONBASE SCANS) Glucose Urine (External) NEG Negative NON-INTERFAC ED (ONBASE SCANS) Bilirubin Urine (External) NEG Negative NON-INTERFAC ED (ONBASE SCANS) Ketones Urine (External) NEG Negative NON-INTERFAC ED (ONBASE SCANS) Specific [place] Urine (External) 1.020 1.000 - 1.030 NON-INTERFAC [...] ED (ONBASE SCANS) Urine 09/01/2023 8:49 AM ROPE WALKER Narrative [place] [facility] - 09/02/2023 8:51 AM ROPE WALKER Verified by Marissa Felix on 09/02/2023. Slava Edwarsd MD LAB - URINE ORDERABL ES [place] [facility] NON-INTERFACED (ONBASE SCANS) documented in this encounter Visit Diagnoses Not on filedocumented in this encounter Care Teams Barrel Loader Relationship Specialty Start Date End Date Slava Edwards MD PCP - General Family Medicine 12/10/22 Kelley Carrillo, RN Registered Nurse Cardiology 02/11/23 Agustin Snider MD [address] [address] Assigned Heart and Vascular Provider 04/05/23 Idania Pearce, RN Registered Nurse Cardiology 10/30/23 documented as of this encounter
--- OUTSIDE RECORDS SUMMARY | 2023-11-06 14:11 | XMS_ITS | Encounter Summary ---
Author Name Unknown Organization [facility] [facility] Address [address] [place] [address] Care Team Providers Care Nitric Acid Plant Operator Name Role Phone Slava Edwards MD Primary Care Provider [phone] Kelley Carrillo RN Unavailable Unavaila Agustin Villasenor MD Unavailable [phone] Reason for Visit * Reason Onset Date Comments CORE 08/27/2023 BMP 09/01/2023 Encounter Details Date Type Department Care Team (Late st Contact Info) Description 08/27/[address] [place] [address] Idania Pearce, CLARA CORE (BMP 09/01/2023) Social History Tobacco Use Types Packs/Day Years [...] on file documented as of this encounter Miscellaneous Notes * Telephone Encounter - Idania Pearce RN - 09/02/2023 2:33 PM OPTICS MANUFACTURING TECHNICIAN Potassium now WNL at 4.9. NT proBNP improved when compared to prior as well. Follow up as previously indicated. Greta Heller PA-C on 09/02/2023 at 2:20 PM No changes. LAURA Zayas, RN 2:35 PM 09/02/23 CS MANUFACTURING TECHNICIAN * Telephone Encounter - Idania Pearce, RN - 09/02/2023 1:25 PM OPTICS MANUFACTURING TECHNICIAN Received labs from [facility] clinics (BMP, CBC and NT pro BNP) Results in Epic in lab tab. K 4.9 NT pro BNP 4620 down from 7145 on 08/04/23 Chart Reviewed: -- 08/04/23: [facility] w/ [facility]. Hyperkalemia -potassium 5.9 today -unclear culprit, likely hypovolemia. Weight down 5# from presumed dry weight -recheck K Friday -- 07/2023: - Faxed order for BMP to [facility] for 08/08 - watch for results Requested they fax results to us - Labs to be drawn at [facility] on 08/08/23. Not yet resulted, check back on 08/11/23 for results. -- 08/11/23: Called Henok and Miesha answered (CTC on file) who reports Henok had same day labs ([facility]) w/ Dr. Edwards who told them they didn't need to repeat labs on Fri08/08/23 as repeat labs drawn after seeing Greta on 08/04/23 and was hold his K level was 5.5. reports they have another lab appt scheduled w/ Dr. Edwards on 09/01/23 and would prefer if Greta wants repeated labs, that they be repeated at same time. Next OV w/ PCP is 09/05/23. REVIEWED with Dr Snider (Greta out) to see if BMP should be rechecked: Medically we would recommend an earlier re-check of the potassium level, as severe hyperkalemia can put him at risk for significant (even fatal) rhythm issues. That said, we certainly can understand the desire to avoid excessive blood draws. If they understand the possible risk of waiting until 09/01, but prefer that compared to another blood draw, that is reasonable. Otherwise, if they are OK checking labs earlier, I would check a BMP and NT-pro-BNP in the the next day or two. --08/18/23: Called pt's Miesha and reviewed Dr. Snider's response above. Offered that we faxrepeat labs again to [facility] so they do not have to drive so far, but she is still adamantthat they wait to repeat until 09/01/23 @ 0845. She understands risks of waiting 1 month to repeat K level. - Pt has lab appt 09/01 @ 0845 at PCP [facility] (fax: [phone]) Fax order for BMP per Dr. Snider to be drawn same day. Will review with Greta as Dr Snider is out. Future Appointments Date Time Provider Department Center 11/04/2023 1:10 PM Greta Heller PA-C [facility] CL[facility] LAURA Zayas, RN 1:25 PM 09/02/23 CS MANUFACTURING TECHNICIAN * Telephone Encounter - Kelley Carrillo RN - 09/01/2023 9:08 AM OPTICS MANUFACTURING TECHNICIAN [facility] Called PCP Dr. Edwards's office ([phone]) to confirm they received fax and requested results be faxed back to attn: Dr. Snider. biosolids management technician confirmed pt did come this AM for lab and BMP, NT pro BNP was drawn this AM (they also hadorder from the PCP to draw both). They don't get results same day as they get sent to hospital, butthey will be faxed to Dr. Snider tomorrow. CLARA Cheung [facility] [place], [place] [facility] Windrower Operator 09/01/23, 9:10 AM CS MANUFACTURING TECHNICIAN * Telephone Encounter - Idania Pearce, CLARA - 08/27/2023 9:10 AM OPTICS MANUFACTURING TECHNICIAN Images from the original note were not included. Order Faxed to [facility] for BMP and NT pro BNP per Dr Snider Faxed to [phone] [facility] Hi all, Sorry for the delayed response. Medically we would recommend an earlier re-check of the potassium level, as severe hyperkalemia can put him at risk for significant (even fatal) rhythm issues. That said, we certainly can understand the desire to avoid excessive blood draws. If they understand the possible risk of waiting until 09/01, but prefer that compared to another blood draw, that is reasonable. Otherwise, if they are OK checking labs earlier, I would check a BMP and NT-pro-BNP in the the next day or two. Thanks, Anshul Called pt's Miesha and reviewed Dr. Snider's response above. Offered that we fax repeat labsagain to [facility] so they do not have to drive so far, but she is still adamant that they wait to repeat until 09/01/23 @ 0845. She understands risks of waiting 1 month to repeat K level. Staff reminder message sent to CORE RN board to fax orders next week once closer to 09/01's PCP appt. Future Appointments Date Time Provider Department Center 11/04/2023 1:10 PM Greta Heller PA-C [facility] PSA CLIN CLARA Cheung [place], [place] [facility] Windrower Operator 08/18/23, 4:25 PM Future Appointments Date Time Provider Department Center 11/04/2023 1:10 PM Greta Heller PA-C [facility] LAURA Zayas, RN 9:11 AM 08/27/23 CS MANUFACTURING TECHNICIAN * Telephone Encounter - Idania Pearce RN - 08/27/2023 9:06 AM OPTICS MANUFACTURING TECHNICIAN ----- Message from Kelley Carrillo RN sent at 08/18/2023 4:33 PM CDT ----- Regarding: fax repeat BMP level to PCP [place] Pt has lab appt 09/01 @ 0845 at PCP [facility] (fax: [phone]) Fax order for BMP per Dr. Snider to be drawn same day. CS MANUFACTURING TECHNICIAN documented in this encounter Plan of Treatment Upcoming Encounters Date Type Department Care Team (Late st Contact Info) Description 04/30/2024 12:30 PM CDT Appointment [facility] [address] [place] [address] [address] [place] [address] Greta Heller PA-C [address] [address] 04/30/2024 1:30 PM CDT Lab [facility] [address] [place] [address] 05/05/2024 9:00 AM CDT Office Visit [address] [place] [address] Greta Heller PA-C [address] [place] [address] Agustin Snider MD [address] [address] documented as of this encounter Visit Diagnoses Not on filedocumented in this encounter Care Teams Nitric Acid Plant Operator Relationship Specialty Start Date End Date Slava Edwards MD PCP - General Family Medicine 12/10/22 Kelley Carrillo, RN Registered Nurse Cardiology 02/11/23 Agustin Snider MD [address] [address] Assigned Heart and Vascular Provider 04/05/23 documented as of this encounter
--- OUTSIDE RECORDS SUMMARY | 2023-11-06 14:11 | XMS_ITS | Encounter Summary ---
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 No / Unsure 07/09/2023 8:31 AM CDT documented as of this encounter Plan of Treatment Upcoming Encounters Date Type Department Care Team (Late st Contact Info) Description 04/30/2024 12:30 PM CDT Appointment [facility] [address] [facility] [address] [place] [address] Greta Heller PA-C [address] [address] 04/30/2024 1:30 PM CDT Lab [facility] [address] [facility] [address] [place] [phone] 05/05/2024 9:00 AM CDT Office Visit [facility] [address] [facility] [address] [place] [phone] Greta Heller PA-C [address] [address] Agustin Snider MD [address] [place] [address] documented as of this encounter Procedures Procedure Name Priority Date/Time Associated Diagnosis Comments N TERMINAL PRO BNP OUTPATIENT Routine 08/04/2023 12:05 PM CDT 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) HEMOGLOBIN Routine 08/04/2023 12:05 PM CDT 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) BASIC METABOLIC PANEL Routine 08/04/2023 12:05 PM CDT 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) documented in this encounter Results * (ABNORMAL) Hemoglobin (08/04/2023 12:05 PM CDT) Hemoglobin 11.6(L) 13.3 - 17.7 g/dL 08/04/2023 12:21 PM CDT [facility] Blood STRUCTURE OF LEFT UPPER LIMB / Unknown Venipuncture / Unknown 08/04/2023 12:05 PM CDT 08/04/2023 12:10 PM CDT Greta Pina FERGUSON-C LAB - BLOOD ORDERABL ES Performing Organization Address [facility] de Phone Number [facility] [address] Lab (1st floor, no room number) [place] [address], [facility] [phone] * (ABNORMAL) N terminal pro BNP outpatient (08/04/2023 12:05 PM CDT) N Terminal Pro BNP Outpatient 7,145(H) 0 - 1,800 pg/mL 08/04/2023 12:52 PM CDT [facility] Comment: Reference range shown and results flagged as abnormal are for the outpatient, non acute settings. Establishing a baseline value for each individual patient is useful for follow-up. Suggested inpatient cut points for confirming diagnosis of CHF in an acute setting are: >450 pg/mL (age 18 to less than 50) >900 pg/mL (age 50 to less than 75) >1800 pg/mL (75 yrs and older) An inpatient or emergency department NT-proPBNP <300 pg/mL effectively rules out acute CHF, with 99% negative predictive value. Blood STRUCTURE OF LEFT UPPER LIMB / Unknown Venipuncture / Unknown 08/04/2023 12:05 PM CDT 08/04/2023 12:10 PM CDT Greta Heller PA-C LAB - BLOOD ORDERABL ES Performing Organization Address [facility] Co de Phone Number [facility] [address] Lab (1st floor, no room number) [place] [address], [place] [phone] * (ABNORMAL) Basic metabolic panel (08/04/2023 12:05 PM CDT) Sodium 139 135 - 145 mmol/L 08/04/2023 12:46 PM CDT [facility] Comment:Reference intervals for this test were updated on 07/15/2023 to more accurately reflect our healthy population. There may be differences in the flagging of prior results with similar values performed with this method. Interpretation of those prior results can be made in the context of the updated reference intervals. Potassium 5.9(H) 3.4 - 5.3 mmol/L 08/04/2023 12:46 PM CDT [facility] Chloride 103 98 - 107 mmol/L 08/04/2023 12:46 PM CDT [facility] Carbon Dioxide (CO2) 29 22 - 29 mmol/L 08/04/2023 12:46 PM CDT [facility] Anion Gap 7 7 - 15 mmol/L 08/04/2023 12:46 PM CDT [facility] Urea Nitrogen 27.5(H) 8.0 - 23.0 mg/dL 08/04/2023 12:46 PM CDT [facility] Creatinine 1.18(H) 0.67 - 1.17 mg/dL 08/04/2023 12:46 PM CDT [facility] GFR Estimate 60(L) >60 mL/min/1. 73m2 08/04/2023 12:46 PM CDT [facility] Calcium 8.3(L) 8.8 - 10.2 mg/dL 08/04/2023 12:46 PM CDT [facility] Glucose 294(H) 70 - 99 mg/dL 08/04/2023 12:46 PM CDT [facility] Blood STRUCTURE OF LEFT UPPER LIMB / Unknown Venipuncture / Unknown 08/04/2023 12:05 PM CDT 08/04/2023 12:10 PM CDT Greta Heller PA-C LAB - BLOOD ORDERABL ES [facility] [address] Lab (1st floor, no room number) [place] [address], [facility] [phone] documented in this encounter Visit Diagnoses Diagnosis 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) documented in this encounter Care Teams Pl Sql Programmer Relationship Specialty Start Date End Date Slava Edwards MD PCP - General Family Medicine 12/10/22 Kelley Carrillo, RN Registered Nurse Cardiology 02/11/23 Agustin Snider MD [address] [address] Assigned Heart and Vascular Provider 04/05/23 documented as of this encounter
--- OUTSIDE RECORDS SUMMARY | 2023-11-06 14:11 | XMS_ITS | Encounter Summary ---
Author Name Unknown Organization [facility] Address [address] [place] [address] Care Team Providers Care Municipal Engineer Name Role Phone Slava Edwards MD Primary Care Provider [phone] Kelley Carrillo RN Unavailable Unavaila Agustin Villasenor MD Unavailable [phone] Reason for Visit * Reason Comments CORE BMP 08/08/23 Encounter Details Date Type Department Care Team (Latest Contact Info) Description 08/04/2023 Documentation Only [facility] [address] [address] Idania Pearce, CLARA CORE (BMP 08/08/23) Social History Tobacco Use Types Packs/Day Years [...] AM CDT documented as of this encounter Progress Notes * Idania Pearce, RN - 08/04/2023 1:57 PM CDT Images from the original note were not included. Faxed order for BMP to [facility] at [phone] LAURA Zayas, RN 1:58 PM 08/04/23 documented in this encounter Plan of Treatment Upcoming Encounters Date Type Department Care Team (Late st Contact Info) Description 04/30/2024 12:30 PM CDT Appointment [facility] [address] [place] [address] [address] [place] [address] Greta Heller PA-C [address] [address] 04/30/2024 1:30 PM CDT Lab [facility] [address] [facility] [address] [place] [address] 05/05/2024 9:00 AM CDT Office Visit [address] [place] [address] Greta Heller PA-C [address] [place] [address] Agustin Snider MD [address] [address] documented as of this encounter Visit Diagnoses Not on filedocumented in this encounter Care Teams Municipal Engineer Relationship Specialty Start Date End Date Slava Edwards MD PCP - General Family Medicine 12/10/22 Kelley Carrillo, RN Registered Nurse Cardiology 02/11/23 Agustin Snider MD [address] [address] Assigned Heart and Vascular Provider 04/05/23 documented as of this encounter
--- OUTSIDE RECORDS SUMMARY | 2023-11-06 14:11 | XMS_ITS | Encounter Summary ---
Author Name Unknown Organization [facility] Address [address] [place] [address] Care Team Providers Care Sales Recruitment Specialist Name Role Phone Slava Edwards MD Primary Care Provider [phone] Kelley Carrillo RN Unavailable Unavaila Agustin Villasenor MD Unavailable [phone] Reason for Referral * Therapeutic Imaging/IR (Routine) - Pending Review Specialty Diagnoses / Procedures Referred By Contac t Referred To Contact Radiology. Diagnoses Calculus, renal Procedures IR Nephrostomy Tube Change Left IR Referral Herman Rios MD [facility] [address] [place] [address] Referral ID Status Reason Start Date Expiration Date V isits Requested Visits Authorized [id number] Pending Review 06/20/2023 06/19/2024 1 1 Encounter Details Date Type Department Care Team (Latest Contact Info) Description 07/09/2023 8:32 AM CDT - 07/09/2023 10:50 AM CDT Hospital Encounter [facility] [address] [place] [address] Shelley Gutierrez, [facility] [address] [facility] [address] [place], [place] [id number] Calculus, renal Discharge Disposition: Home or Self Care Social History Tobacco Use Types Packs/Day Years Used Date Smoking Tobacco: Never Alcohol Use Standard Drinks/Week Comments Yes 0 (1 standard drink = 0.6 oz pur e alcohol) occ shot or wine cooler PHQ-2 Answer Date Recorded PHQ-2 Score 0 01/09/2023 Sex and Gender Information Value Date Recorded Sex Assigned at Not on file Gender Identity Not on file Sexual Orientation Not on file COVID-19 Exposure Response Date Recorded In the last 10 days, have yo u been in contact with someone who was confirmed or suspected to have Coronavirus/COVID-19? No / Unsure 07/09/2023 8:31 AM CDT documented as of this encounter Last Filed Vital Signs Vital Sign Reading Time Taken Comments Blood Pressure 128/64 07/09/2023 10:34 AM CDT Pulse 67 07/09/2023 10:34 AM CDT Temperature 36.7 ??C (98 ??F) 07/09/2023 9:01 AM CDT Respiratory Rate 16 07/09/2023 10:34 AM CDT Oxygen Saturation 90% 07/09/2023 10:34 AM CDT Inhaled Oxygen Concentration - - Weight - - Height - - Body Mass Index - - documented in this encounter Discharge Instructions * Discharge Instructions* Celi Suh RN - 07/09/2023 9:09 AM CDT Invasive Radiology Procedures Discharge Instructions ___Nephrostomy Tube Exchange The doctor who did your procedure today was Dr. Gutierrez Diet and medicines Go back to your normal diet. You may start taking your normal medicines again (including Coumadin, or warfarin), as shown on your medicine sheet. If you take aspirin, Plavix or other anti-platelet drugs: Start taking it tomorrow. If take Coumadin (warfarin): Ask your doctor when to have your INR checked For minor pain, you may take Tylenol (acetaminophen) or Advil (ibuprofen). Activity and puncture site You may go back to normal activity in 24 hours. Wait 48 hours before lifting,straining, exercise orother strenuous activity. For the next day or two, check your puncture site often while you are awake. Change the Band-Aid or bandage tomorrow. You may shower tomorrow morning. No bathing or swimming until yourpuncture site has fully healed. If you received IV medicine to sedate you: ___versed___fentanyl You may feel drowsy, forgetful or unsteady. For the next [address] hours, [address] not [address], drink alcohol or make any important decisions. ??Know when to call for help Call your doctor if you have: ??A fever greater over 101??F (38.3??C), taken under the tongue. ??A lot of bleeding or swelling at your puncture site. ??Pain that is getting worse. ??Shortness of breath. Call 911 or go the emergency room if you have: ??Severe chest pain or trouble breathing. ??A tube that falls out. ??Increased blood in your sputum (phlegm). ??Bleeding that you cannot control. Important phone numbers: ??[facility] ..................................................................... ??[facility] ........................................................... [phone] ??[facility] ................................................................ [phone] ??[facility].............. [phone] documented in this encounter Medications at Time of Discharge Medication Sig Dispensed Refills Start Date End Date buPROPion (WELLBUTRIN XL) 300 MG 24 hr tablet Take 300 mg by mouth every morning Managed by PCP 0 ferrous gluconate (FERGON) 324 (38 Fe) MG tablet 1 tablet every morning 0 01/02/2023 finasteride (PROSCAR) 5 MG tablet Take 5 mg by mouth daily Managed by PCP 0 06/14/2022 glipiZIDE (GLUCOTROL) 10 MG tablet Take 10 mg by mouth daily Managed by PCP 0 hydroxyurea (HYDREA) 500 MG capsule 2 tabs/1000 mg QAM 5 days of the week. 3 tabs/1500 the other 2 days of the week. Managed by PCP/Hematology 0 metoprolol succinate ER (TOPROL XL) 25 MG 24 hr tabletIndications: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) Take 0.5 tablets (12.5 mg) by mouth daily 45 tablet 3 12/25/2022 omeprazole (PRILOSEC OTC) 20 MG EC tablet Take 20 mg by mouth daily 0 sacubitril-valsartan (ENTRESTO) 49-51 MG per tabletIndications:Nonisch emic cardiomyopathy (H),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) Take 1 tablet by mouth 2 times daily 180 tablet 3 02/20/2023 tamsulosin (FLOMAX) 0.4 MG capsule Take 0.4 mg by mouth 2 times daily Managed by PCP 0 06/14/2022 vitamin D3 (CHOLECALCIFEROL) 50 mcg (2000 units) tablet Take 1 tablet by mouth every other day 0 aspirin (ASA) 81 MG EC tablet Take 81 mg by mouth daily 0 08/04/2023 doxycycline monohydrate (ADOXA) 100 MG tablet Take 1 tablet by mouth 2 times daily 0 02/05/2022 08/04/2023 levothyroxine (SYNTHROID/LEVOTHROID) 175 MCG tablet Take 175 mcg by mouth daily Managed by PCP 0 11/23/2022 08/04/2023 torsemide (DEMADEX) 20 MG tabletIndications:Nonisch emic cardiomyopathy (H),Chronic systolic (congestive) heart failure (H),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) 10-20 mg (1/2 to 1 tablet) once daily 90 tablet 3 12/25/2022 11/04/2023 documented as of this encounter Miscellaneous Notes * IR Note - Celi Suh RN - 07/09/2023 11:22 AM CDT Discharge instructions given, iv removed. Patient wheeled to vehicle by staff. documented in this encounter Plan of Treatment Upcoming Encounters Date Type Department Care Team (Late st Contact Info) Description 04/30/2024 12:30 PM CDT Appointment [facility] [address] [place] [address] [address] [place] [address] Greta Heller PA-C [address] [address] 04/30/2024 1:30 PM CDT Lab [facility] [address] [facility] [address] [place] [address] 05/05/2024 9:00 AM CDT Office Visit [address] [place] [address] Greta Heller PA-C [address] [address] Agustin Snider MD [address] [address] documented as of this encounter Procedures Procedure Name Priority Date/Time Associated Diagnosis Comments IR NEPHROSTOMY TUBE CHANGE LEFT Routine: Next available opening 07/09/2023 10:25 AM CDT Calculus, renal documented in this encounter Results * IR Nephrostomy Tube Change Left (07/09/2023 10:25 AM CDT) Anatomical Region Laterality Modality Abdomen/Pelvis Radio Fluoroscop y, Radio Fluoroscopy Impressions 07/09/2023 10:55 AM CDT IMPRESSION: Successful exchange of left 12 [place] nephrostomy tube, as detailed above Plan: ??The patient is to follow up in three months for routine nephrostomy catheter maintenance. SHELLEY GUTIERREZ DO Narrative 07/09/2023 10:55 AM CDT PROCEDURE(S): 1. Left antegrade nephrostogram 2. Left percutaneous nephrostomy tube exchange DATE OF PROCEDURE: 07/09/2023. MEDICATIONS: 1% lidocaine and 900 mg clindamycin IV. CONTRAST: 10 mL into the renal collecting system FLUOROSCOPY TIME: 0.2 minutes. AIR KERMA: ??2 mGy. COMPLICATIONS: None. CLINICAL HISTORY/INDICATION: Left hydronephrosis with nephrostomy tube in place. PROCEDURES AND FINDINGS: Following a discussion of the risks, benefits, indications and alternatives to treatment, appropriate informed consent was obtained. The patient was brought to the interventional radiology suite and placed prone on the table. The patient's left flank, including the indwelling nephrostomy tube, was prepped and draped in usual sterile fashion. A time out was performed per universal protocol policy to ensure correct patient, site and procedure to be performed. 1% Lidocaine was used for local anesthetic. A preliminary rn invasive radiograph was performed and demonstrates a locking loop catheter in the left flank. Contrast was injected through the indwelling left nephrostomy tube. Routine antegrade nephrostogram demonstrates the pigtail is centered in the renal pelvis. The catheter retention suture was cut and a 0.035 guidewire was advanced into and coiled within the renal pelvis. The indwelling nephrostomy tube was then exchanged over the wire for a new 12 [place] nephrostomy tube, and its tip was coiled in the renal pelvis area. Injection of contrast confirms its location within the renal pelvis. The contrast was aspirated, the tube was flushed, and sutured to the skin using 2-0 silk. A sterile dressing was applied. The tube was placed to gravity bag drainage. Throughout the procedure, the patient was monitored by a radiology nurse for cardiac rhythm and oxygen saturation which remained stable. The patient tolerated the procedure well and left interventional radiology in stable condition. Procedure Note Shelley Gutierrez DO - 07/09/2023 PROCEDURE(S): 1. Left antegrade nephrostogram 2. Left percutaneous nephrostomy tube exchange DATE OF PROCEDURE: 07/09/2023. MEDICATIONS: 1% lidocaine and 900 mg clindamycin IV. CONTRAST: 10 mL into the renal collecting system FLUOROSCOPY TIME: 0.2 minutes. AIR KERMA: 2 mGy. COMPLICATIONS: None. CLINICAL HISTORY/INDICATION: Left hydronephrosis with nephrostomy tube in place. PROCEDURES AND FINDINGS: Following a discussion of the risks, benefits, indications and alternatives to treatment, appropriate informed consent was obtained. The patient was brought to the interventional radiology suite and placed prone on the table. The patient's left flank, including the indwelling nephrostomy tube, was prepped and draped in usual sterile fashion. A time out was performed per universal protocol policy to ensure correct patient, site and procedure to be performed. 1% Lidocaine was used for local anesthetic. A preliminary rn invasive radiograph was performed and demonstrates a locking loop catheter in the left flank. Contrast was injected through the indwelling left nephrostomy tube. Routine antegrade nephrostogram demonstrates the pigtail is centered in the renal pelvis. The catheter retention suture was cut and a 0.035 guidewire was advanced into and coiled within the renal pelvis. The indwelling nephrostomy tube was then exchanged over the wire for a new 12 [place] nephrostomy tube, and its tip was coiled in the renal pelvis area. Injection of contrast confirms its location within the renal pelvis. The contrast was aspirated, the tube was flushed, and sutured to the skin using 2-0 silk. A sterile dressing was applied. The tube was placed to gravity bag drainage. Throughout the procedure, the patient was monitored by a radiology nurse for cardiac rhythm and oxygen saturation which remained stable. The patient tolerated the procedure well and left interventional radiology in stable condition. IMPRESSION: Successful exchange of left 12 [place] nephrostomy tube, as detailed above Plan: The patient is to follow up in three months for routine nephrostomy catheter maintenance. SHELLEY GUTIERREZ DO Herman Rios MD [facility] documented in this encounter Visit Diagnoses Diagnosis Calculus, renal Calculus of kidney documented in this encounter Administered Medications Inactive Administered Medications - up to 3 most recent administrations Medication Order MAR Action Action Date Dose Rate Site acetaminophen (TYLENOL) tablet 650 mg 650 mg, Oral, ONCE PRN, mild pain, Starting on Fri07/09/23 at 0907, Maximum acetaminophen dose from all sources = 75 mg/kg/day not to exceed 4 grams/day. clindamycin (CLEOCIN) 900 mg in 50 mL D5W intermittent infusion Routine, 900 mg, Intravenous, PRE-OP/PRE-PROCEDURE, Starting on Fri07/09/23 at 0842, For 1 dose, Give dose within 1 hour PRIOR to procedure., Indications: Perioperative Pharmacoprophylaxis, IR Pre-procedure $New Bag 07/09/2023 10:14 AM CDT 900 mg 100 mL/hr clindamycin (CLEOCIN) 900 MG/50ML in 50 mL D5W intermittent infusion Starting on Fri07/09/23 at 0949, For 1 dose, Marguerite Carbone: cabinet override lidocaine (PF) (XYLOCAINE) 1 % injection Starting on Fri07/09/23 at 0944, For 1 dose, Marguerite Carbone: cabinet override lidocaine 1 % 1-30 mL 1-30 mL, Intradermal, ONCE PRN, local anesthetic. When verbally ordered by prescriber during the procedure., Starting on Fri07/09/23 at 0843, For 1 dose, Dose to be divided into smaller volumes appropriate for the procedure. Provider to administer intradermally. Dose to be divided into smaller volumes appropriate for the procedure., IR Intra-procedure $Given by Other Clinician 07/09/2023 10:18 AM CDT 4 mLs sodium chloride (PF) 0.9% PF flush 3 mL 3 mL, Intracatheter, EVERY 8 HOURS, First dose on Fri07/09/23 at 0900, to lock peripheral IV dormant line, IR Pre-procedure sodium chloride (PF) 0.9% PF flush 3 mL 3 mL, Intracatheter, EVERY 1 MIN PRN, line flush, other, to ensure patency or to lock dormant line, Starting on Fri07/09/23 at 0842, IR Pre-procedure sodium chloride 0.9 % bag TABLE SOLN 1 Bag, TABLE SOLN, CONTINUOUS PRN, other, Catheter prep table solution use as directed by provider., Starting on Fri07/09/23 at 0843, For 5 doses, Maximum total dose 5000 mL Nurse will document number of bags used at the end of the procedure. NOT A PRESSURE BAG, IR Intra-procedure documented in this encounter Active and Recently Administered Medications Times are shown in CDT. Scheduled Medication Order 07/07/2023 07/08/2023 07/09/2023 clindamycin (CLEOCIN) 900 mg in 50 mL D5W intermittent infusion (COMPLETED) Routine, 900 mg, Intravenous, PRE-OP/PRE-PROCEDURE, Starting on Fri07/09/23 at 0842, For 1 dose, Give dose within 1 hour PRIOR to procedure., Indications: Perioperative Pharmacoprophylaxis, IR Pre-procedure 1014 ($New Bag - Pro vider: Orquidea Swift, RN) sodium chloride (PF) 0.9% PF flush 3 mL 3 mL, Intracatheter, EVERY 8 HOURS, First dose on Fri07/09/23 at 0900, to lock peripheral IV dormant line, IR Pre-procedure 0900 (Canceled Entry - Provider: Orders Generic Provider - Comment: Automatically canceled at discontinue of medication order) PRN Medication Order 07/07/2023 07/08/2023 07/09/2023 acetaminophen (TYLENOL) tablet 650 mg 650 mg, Oral, ONCE PRN, mild pain, Starting on Fri07/09/23 at 0907, Maximum acetaminophen dose from all sources = 75 mg/kg/day not to exceed 4 grams/day. lidocaine 1 % 1-30 mL (COMPLETED) 1-30 mL, Intradermal, ONCE PRN, local anesthetic. When verbally ordered by prescriber during the procedure., Starting on Fri07/09/23 at 0843, For 1 dose, Dose to be divided into smaller volumes appropriate for the procedure. Provider to administer intradermally. Dose to be divided into smaller volumes appropriate for the procedure., IR Intra-procedure 1018 ($Given by Othe r Clinician - Provider: Orquidea Swift, CLARA) sodium chloride (PF) 0.9% PF flush 3 mL 3 mL, Intracatheter, EVERY 1 MIN PRN, line flush, other, to ensure patency or to lock dormant line, Starting on Fri07/09/23 at 0842, IR Pre-procedure sodium chloride 0.9 % bag TABLE SOLN 1 Bag, TABLE SOLN, CONTINUOUS PRN, other, Catheter prep table solution use as directed by provider., Starting on Fri07/09/23 at 0843, For 5 doses, Maximum total dose 5000 mL Nurse will document number of bags used at the end of the procedure. NOT A PRESSURE BAG, IR Intra-procedure documented in this encounter Care Teams Sales Recruitment Specialist Relationship Specialty Start Date End Date Slava Edwards MD PCP - General Family Medicine 12/10/22 Kelley Carrillo, CLARA Registered Nurse Cardiology 02/11/23 Agustin Snider MD [address] [address] Assigned Heart and Vascular Provider 04/05/23 documented as of this encounter
--- OUTSIDE RECORDS SUMMARY | 2023-11-06 14:11 | XMS_ITS | Encounter Summary ---
Author Name Unknown Organization [facility] Address [address] [place] [address] Care Team Providers Care Internal Medicine Doctor Name Role Phone Slava Edwards MD Primary Care Provider [phone] Kelley Carrillo RN Unavailable Unavaila Agustin Villasenor MD Unavailable [phone] Encounter Details Date Type Department Care Team (Late st Contact Info) Description 08/01/2023 Orders Only [facility] [place] [address] [place] [address] [address] [place] [address] Kelley Carrillo RN 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) (Primary Dx) Social History Tobacco Use Types Packs/Day Years [...] as of this encounter Progress Notes * Kelley Carrillo, CLARA - 08/01/2023 4:01 PM CDT [facility] BMP, NT pro BNP, Hgb orders placed for upcoming OV w/ [facility] [employer]. Message sent to scheduling requesting they contact pt to arrange lab appt prior to OV. Future Appointments Date Time Provider Department Center 08/04/2023 1:10 PM Greta Heller PA-C [facility] Kelley Carrillo, BULLION WEIGHER [place], [place] [facility] Airplane Flight Attendant 08/01/23, 4:03 PM documented in this encounter Plan of Treatment Upcoming Encounters Date Type Department Care Team (Late st Contact Info) Description 04/30/2024 12:30 PM CDT Appointment [facility] [address] [place] [address] [address] [place] [address] Greta Heller PA-C [address] [address] 04/30/2024 1:30 PM CDT Lab [facility] [place] [address] [place] [address] [address] [place] [address] 05/05/2024 9:00 AM CDT Office Visit [address] [place] [address] Greta Heller PA-C [address] [address] Agustin Snider MD [address] [address] documented as of this encounter Results * (ABNORMAL) Hemoglobin (08/04/2023 12:05 PM CDT) Hemoglobin 11.6(L) 13.3 - 17.7 g/dL 08/04/2023 12:21 PM CDT LABORATORY Blood STRUCTURE OF LEFT UPPER LIMB / Unknown Venipuncture / Unknown 08/04/2023 12:05 PM CDT 08/04/2023 12:10 PM CDT Greta Pina FERGUSON-C LAB - BLOOD ORDERABL ES [facility] [address] Lab (1st floor, no room number) [place] [address], [facility] [phone] * (ABNORMAL) N terminal pro BNP outpatient [...] Pina FERGUSON-C LAB - BLOOD ORDERABL ES [facility] [address] Lab (1st floor, no room number) [place] [address], [facility] [phone] * (ABNORMAL) Basic metabolic panel (08/04/2023 12:05 [...] - 5.3 mmol/L 08/04/2023 12:46 PM CDT LABORATORY Chloride 103 98 - 107 mmol/L 08/04/2023 12:46 PM CDT [facility] Carbon Dioxide (CO2) 29 22 - 29 mmol/L 08/04/2023 12:46 PM CDT [facility] Anion Gap 7 7 - 15 mmol/L 08/04/2023 12:46 PM CDT [facility] Urea Nitrogen 27.5(H) 8.0 - 23.0 mg/dL 08/04/2023 12:46 PM CDT LABORATORY Creatinine 1.18(H) 0.67 - 1.17 mg/dL 08/04/2023 12:46 PM CDT LABORATORY GFR Estimate 60(L) >60 mL/min/1. 73m2 08/04/2023 12:46 PM CDT [facility] Calcium 8.3(L) 8.8 - 10.2 mg/dL 08/04/2023 12:46 PM CDT LABORATORY Glucose 294(H) 70 - 99 mg/dL 08/04/2023 12:46 PM CDT LABORATORY Blood STRUCTURE OF LEFT UPPER LIMB / Unknown Venipuncture / Unknown 08/04/2023 12:05 PM CDT 08/04/2023 12:10 PM CDT Greta Heller PA-C LAB - BLOOD ORDERABL ES [facility] LABORATORY [facility] Lab [address] [facility] Lab (1st floor, no room number) [place] [address], [facility] [phone] documented in this encounter Visit Diagnoses Diagnosis 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)- Primary documented in this encounter Care Teams Internal Medicine Doctor Relationship Specialty Start Date End Date Slava Edwards MD PCP - General Family Medicine 12/10/22 Kelley Carrillo, RN Registered Nurse Cardiology 02/11/23 Agustin Snider MD [address] [address] Assigned Heart and Vascular Provider 04/05/23 documented as of this encounter
--- OUTSIDE RECORDS SUMMARY | 2023-11-06 14:11 | XMS_ITS | Encounter Summary ---
Author Name Unknown Organization [facility] Address [address] [place] [address] Care Team Providers Care Fishing Floats Assembler Name Role Phone Slava Edwards MD Primary Care Provider [phone] Kelley Carrillo RN Unavailable Unavaila Agustin Villasenor MD Unavailable [phone] Encounter Details Date Type Department Care Team (Latest Contact Info) Description 07/09/2023 Travel Social History Tobacco Use Types Packs/Day [...] Info) Description 04/30/2024 12:30 PM CDT Appointment [facility] [address] [facility] [address] [place] [address] Greta Heller PA-C [address] [address] 04/30/2024 1:30 PM CDT Lab [address] [place] [phone] 05/05/2024 9:00 AM CDT Office Visit [address] [place] [address] Greta Heller PA-C [address] [address] Agustin Snider MD [address] [address] documented as of this encounter Visit Diagnoses Not on filedocumented in this encounter Care Teams Fishing Floats Assembler Relationship Specialty Start Date End Date Slava Edwards MD PCP - General Family Medicine 12/10/22 Kelley Carrillo, CLARA Registered Nurse Cardiology 02/11/23 Agustin Snider MD [address] [id number] Assigned Heart and Vascular Provider 04/05/23 documented as of this encounter
--- OUTSIDE RECORDS SUMMARY | 2023-11-06 14:11 | XMS_ITS | Encounter Summary ---
Author Name Unknown Organization [facility] Address [address] [place] [address] Care Team Providers Care Behavioral Health Consultant Name Role Phone Slava Edwards MD Primary Care Provider [phone] Kelley Carrillo RN Unavailable Unavaila Agustin Villasenor MD Unavailable [phone] Reason for Referral * Therapeutic Imaging/IR (Routine) - Pending Review Specialty Diagnoses / Procedures Referred By Contac t Referred To Contact Radiology. Diagnoses Unilateral hydronephrosis Procedures IR Nephrostomy Tube Change Left IR Nephrostomy Tube Change Right Austen Christianson MD [facility] RAD[facility]S [address] [facility] [address] [place] [address] Referral ID Status Reason Start Date Expiration Date V isits Requested Visits Authorized [id number] Pending Review 09/15/2023 09/14/2024 1 1 ICAL SALES CONSULTANT Encounter Details Date Type Department Care Team (Latest Contact Info) Description 09/15/2023 Orders Only [facility] Interventional Radiology [address] [facility]. [address] [phone] Elvia Cortez RN Unilateral hydronephrosis (Primary Dx) Social History Tobacco Use Types [...] Info) Description 04/30/2024 12:30 PM CDT Appointment [facility] [address] [facility] [address] [place] [address] Greta Heller PA-C [address] [address] 04/30/2024 1:30 PM CDT Lab [facility] [address] [facility] [address] [place] [address] 05/05/2024 9:00 AM CDT Office Visit [facility] [address] [facility] [address] [place] [address] Greta Heller PA-C [address] [address] Agustin Snider MD [address] [address] documented as of this encounter Results * IR Nephrostomy Tube Change Left (10/08/2023 9:26 AM CLINICAL SALES CONSULTANT) Anatomical Region Laterality Modality Abdomen/Pelvis Radio Fluoroscop y, Radio Fluoroscopy Impressions 10/08/2023 9:34 AM CLINICAL SALES CONSULTANT IMPRESSION: 1. Uneventful left nephrostomy catheter exchange. Plan: The patient should return in 3 months for routine catheter change JUANITO GUZMAN MD Narrative 10/08/2023 9:34 AM CLINICAL SALES CONSULTANT [facility] EXAM: LEFT NEPHROSTOMY TUBE CHANGE LOCATION: [facility] CLINICAL HISTORY: The patient has a [...] no immediate complications. FINDINGS: The existing 12 Belgian nephrostomy tube is in the renal collecting system. The catheter is patent and there is no hydronephrosis. The new 12 Belgian nephrostomy tube is in good position. Procedure Note Juanito Guzman MD - 10/08/2023 [facility] EXAM: LEFT NEPHROSTOMY TUBE CHANGE LOCATION: [facility] CLINICAL HISTORY: The patient has a [...] no immediate complications. FINDINGS: The existing 12 Belgian nephrostomy tube is in the renal collecting system. The catheter is patent and there is no hydronephrosis. The new 12 Belgian nephrostomy tube is in good position. IMPRESSION: 1. Uneventful left nephrostomy catheter exchange. Plan: The patient should return in 3 months for routine catheter change JUANITO GUZMAN MD Austen Christianson MD IMG IR ORDERAB LES documented in this encounter Visit Diagnoses Diagnosis Unilateral hydronephrosis- Primary Hydronephrosis documented in this encounter Care Teams Behavioral Health Consultant Relationship Specialty Start Date End Date Slava Edwards MD PCP - General Family Medicine 12/10/22 Kelley Carrillo, CLARA Registered Nurse Cardiology 02/11/23 Agustin Snider MD [address] [address] Assigned Heart and Vascular Provider 04/05/23 documented as of this encounter
--- OUTSIDE RECORDS SUMMARY | 2023-11-06 14:11 | XMS_ITS | Encounter Summary ---
Author Name Unknown Organization [facility] Address [address] [place] [address] Care Team Providers Care Attending Anesthesiologist Name Role Phone Slava Edwards MD Primary Care Provider [phone] Kelley Carrillo RN Unavailable Unavaila ble Agustin Snider MD Unavailable [phone] Idania Pearce RN Unavailable Unavaila ble Encounter Details Date Type Department Care Team (Late st Contact Info) Description 08/04/2023 External Order Results [facility] [address] [place] [address] Outside, Provider Social History Tobacco Use Types [...] Encounters Date Type Department Care Team (Late Contact Info) Description 04/30/2024 12:30 PM CDT Appointment [facility] [address] [facility] [address] [place] [phone] Greta Heller PA-C [address] [address] 04/30/2024 1:30 PM CDT Lab [facility] [address] [facility] [address] [place] [address] 05/05/2024 9:00 AM CDT Office Visit [facility] [address] [facility] [address] [place] [address] Greta Heller PA-C [address] [address] Agustin Snider MD [address] [id number] documented as of this encounter Procedures Procedure Name Priority Date/Time Associated Diagnosis Comments CBC WITH PLATELETS & DIFFERENTIAL Routine 08/04/2023 10:58 AM CDT TSH Routine 08/04/2023 10:58 AM CDT ROUTINE UA WITH MICROSCOPIC Routine 08/04/2023 10:58 AM CDT BASIC METABOLIC PANEL Routine 08/04/2023 10:58 AM CDT documented in this encounter Results * (ABNORMAL) CBC with Platelets & Differential (08/04/2023 10:58 AM CDT) WBC Count (External) 42.39(HH) 4.50 - 11.00 K/uL NON-INTERFACE D (ONBASE SCANS) RBC Count (External) 3.72(L) 4.30 - 5.90 m/uL NON-INTERFACE D (ONBASE SCANS) Hemoglobin (External) 11.8(L) 13.5 - 17.5 gm/dL NON-INTERFACE D (ONBASE SCANS) Hematocrit (External) 40.4 37.0 - 53.0 % NON-INTERFACE D (ONBASE SCANS) MCV (External) 109(H) 80 - 100 fL NON-INTERFACE D (ONBASE SCANS) MCH (External) 32 26 - 34 pg NON-INTERFACE D (ONBASE SCANS) MCHC (External) 29(L) 32 - 36 g/dL NON-INTERFACE D (ONBASE SCANS) % Neutrophils (External) 89.0(H) 42.0 - 72.0 % NON-INTERFACE D (ONBASE SCANS) % Lymphocytes (External) 1.0(L) 20.0 - 44.0 % NON-INTERFACE D (ONBASE SCANS) % Monocytes (External) 1.0 0 - 11 % NON-INTERFACE D (ONBASE SCANS) % Eosinophils (External) 3.0 0.0 - 7.0 % NON-INTERFACE D (ONBASE SCANS) % Basophils (External) 1.0 0.0 - 3.0 % NON-INTERFACE D (ONBASE SCANS) %Metamyelocyte (External) 1.70 % NON-INTERFACE D (ONBASE SCANS) Blood BLOOD SPECIMEN / Unknown 08/04/2023 10:58 AM CDT Narrative GUYELEONORAEmanuel PFT - 08/12/2023 11:33 AM CDT Verified by Marissa Felix on 08/12/2023. Provider Outside LAB - BLOOD ORDERABL ES GUYLAUREN Markus NON-INTERFACED (ONBASE SCANS) * (ABNORMAL) Basic metabolic panel (08/04/2023 10:58 AM CDT) Urea Nitrogen (External) 31(H) 7 - 30 mg/dL NON-INTERFACED (ONBASE SCANS) Creatinine (External) 1.1 0.5 - 1.5 mg/dL NON-INTERFACED (ONBASE SCANS) GFR Estimated (External) 65 ml/min/1.7 3m2 NON-INTERFACED (ONBASE SCANS) Glucose (External) 228(H) 60 - 115 mg/dL NON-INTERFACED (ONBASE SCANS) Calcium (External) 8.4 8.4 - 10.6 mg/dL NON-INTERFACED (ONBASE SCANS) Blood BLOOD SPECIMEN / Unknown 08/04/2023 10:58 AM CDT Narrative BREEZE PFT - 08/12/2023 11:33 AM CDT Verified by Marissa Felix on 08/12/2023. Provider Outside LAB - BLOOD ORDERABL ES Performing Organization Address [facility]/ZIP Co de Phone Number BREEZE PFT NON-INTERFACED (ONBASE SCANS) * (ABNORMAL) TSH (08/04/2023 10:58 AM CDT) TSH (External) 4.840(H) 0.270 - 4.20 uIU/mL NON-INTERFACE D (ONBASE SCANS) Blood BLOOD SPECIMEN / Unknown 08/04/2023 10:58 AM CDT Narrative BREEZE PFT - 08/12/2023 11:33 AM CDT Verified by Marissa Felix on 08/12/2023. Provider Outside LAB - BLOOD ORDERABL Performing Organization Address [facility] Co de Phone Number BREEZE PFT NON-INTERFACED (ONBASE SCANS) * (ABNORMAL) UA with Microscopic (08/04/2023 10:58 AM CDT) Color Urine (External) Yellow Yellow NON-INTERFACE D (ONBASE SCANS) Urobilinogen (External) 0.2 0.2 - 1.0 NON-INTERFACE D (ONBASE SCANS) Leukocyte Esterase Urine (External) 3+(A) Negative NON-INTERFACE D (ONBASE SCANS) RBC Urine (External) 5-10(A) 0 - 2 NON-INTERFACE D (ONBASE SCANS) WBC Urine (External) 50-100(A) 0 - 5 NON-INTERFACE D (ONBASE SCANS) WBC Clumps Urine (External) Few(A) None NON-INTERFACE D (ONBASE SCANS) Squamous Epithelial Urine (External) None None-Few NON-INTERFACE D (ONBASE SCANS) Bacteria Urine (External) Moderate(A ) None NON-INTERFACE D (ONBASE SCANS) Urine 08/04/2023 10:5 8 AM CDT Narrative GUYEZEmanuel PFT - 08/12/2023 11:33 AM CDT Verified by Marissa Felix on 08/12/2023. Provider Outside LAB - URINE ORDERABL ES BRELAUREN PFT NON-INTERFACED (ONBASE SCANS) documented in this encounter Visit Diagnoses Not on filedocumented in this encounter Care Teams Attending Anesthesiologist Relationship Specialty Start Date End Date Slava Edwards MD PCP - General Family Medicine 12/10/22 Kelley Carrillo, RN Registered Nurse Cardiology 02/11/23 Agustin Snider MD [address] [address] Assigned Heart and Vascular Provider 04/05/23 Idania Pearce, RN Registered Nurse Cardiology 10/30/23 documented as of this encounter
--- OUTSIDE RECORDS SUMMARY | 2023-11-06 14:11 | XMS_ITS | Encounter Summary ---
Author Name Unknown Organization [facility] Address [address] [place] [address]. [place] [address] Care Team Providers Care Peer Tutor Name Role Phone Slava Edwards MD Primary Care Provider [phone] Kelley Carrillo RN Unavailable Unavaila Agustin Villasenor MD Unavailable [phone] Reason for Referral * Consultation (Routine: Next available opening) - Pending Review Specialty Diagnoses / Procedures Referred By Contac t Referred To Contact Cardiovascular Disease Diagnoses 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) Greta Heller PA-C [address] [place] [address] Referral ID Status Reason Start Date Expiration Date V isits Requested Visits Authorized [id number] Pending Review 08/04/2023 08/03/2024 1 1 Question Answer Follow-up with: Self Reason for follow-up: CORE Scheduling Instructions: [facility] will call you to coordinate your care as prescribed by your provider. If you have concerns about scheduling, please call [phone]. Comments [facility] will call you to coordinate your care as prescribed by your provider. If you have concerns about scheduling, please call [phone]. Reason for Visit * Reason Comments CORE HFrEF Results BMP, HGB and NT pro BNP today * Consultation (Routine: Next available opening) - Pending Review Specialty Diagnoses / Procedures Referred By Contac t Referred To Contact Cardiovascular Disease Diagnoses 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) Agustin Snider MD [address] [address] Referral ID Status Reason Start Date Expiration Date V isits Requested Visits Authorized [id number] Pending Review 04/01/2023 03/31/2024 1 1 Encounter Details Date Type Department Care Team (Late st Contact Info) Description 08/04/2023 1:10 PM CDT Office Visit [facility] [address] [place] [id number] Agustin Snider MD [address] [address] Greta Heller PA-C [address] [address] Chronic HFrEF (heart failure with reduced ejection [...] Sign Reading Time Taken Comments Blood Pressure 116/52 08/04/2023 1:22 PM CDT Pulse 68 08/04/2023 1:22 PM CDT Temperature - - Respiratory Rate - - Oxygen Saturation - - Inhaled Oxygen Concentration - - Weight 73.3 kg (161 lb 8 oz) 08/04/2023 1:22 PM CDT 150# HOMEW WT Height 168.9 cm (5' 6.5) 08/04/2023 1: 22 PM CDT Body Mass Index 25.68 08/04/2023 1:22 PM CDT documented in this encounter Patient Instructions * Patient Instructions* Greta Heller PA-C - 08/04/2023 1:10 PM CDT Call CORE nurse for any questions or concerns Fri-Fri 8am-4pm: #[phone] For concerns after hours: #[phone] Medication changes: none Plan from today: Repeat labs on Friday at PCP office, we will fax order. CORE follow up in 3-4 months, sooner if needed Lab results: see attached: Component Latest Ref Rng 03/28/2023 10:02 AM 04/07/2023 9:33 AM 08/04/2023 12:05 PM Sodium 135 - 145 mmol/L 136 139 Potassium 3.4 - 5.3 mmol/L 5.1 5.9 (H) Chloride 98 - 107 mmol/L 104 103 Carbon Dioxide (CO2) 22 - 29 mmol/L 25 29 Anion Gap 7 - 15 mmol/L 7 7 Urea Nitrogen 8.0 - 23.0 mg/dL 20.1 27.5 (H) Creatinine 0.67 - 1.17 mg/dL 1.00 1.18 (H) Calcium 8.8 - 10.2 mg/dL 8.4 (L) 8.3 (L) Glucose 70 - 99 mg/dL 261 (H) 294 (H) GFR Estimate >60 mL/min/1.73m2 74 60 (L) N-Terminal Pro Bnp 0 - 1,800 pg/mL 2,595 (H) 7,145 (H) Hemoglobin 13.3 - 17.7 g/dL 10.7 (L) 11.6 (L) Legend: (L) Low (H) High documented in this encounter Progress Notes * Greta Heller PA-C - 08/04/2023 1:10 PM CDT Cardiology Clinic Progress Note Henok Chery Date of : 1935 Age: [age] year old Primary Bar Useful Or Busser: Dr. Snider Reason for visit: CORE follow up Assessment and Plan: Henok Chery is a very pleasant 88 year old male who is here today for CORE follow up. Chronic systolic heart failure - LVEF: 30 to 35% on echo 12/10/2022; moderate to severe global hypokinesia of the LV - NYHA class III, stage C - Etiology: arrhythmogenic (given scar pattern on cMRI) versus PVC-mediated (17% burden) - Fluid status: Hypervolemic; suspected dry weight: 155# on home scale. -150#on home scale today - Diuretic regimen: Torsemide 10 mg once daily with an additional 10 mg PRN weight gain - Ischemic evaluation: Last coronary angio 12/2021 through [facility] - Guideline directed medical therapy: - Beta beata: Toprol 12.5 mg once daily - ACEI/ARB/ARNI: Entresto 49/51 mg twice daily - Aldactone antagonist: None; pt struggles with hyperkalemia - SGLT2 inhibitor: not a great candidate given recurrent UTIs -Counseled patient on sodium restriction Hyperkalemia -potassium 5.9 today -unclear culprit, likely hypovolemia. 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 Chery has been doing well from a cardiac perspective. Denies any symptoms for angina or decompensated heart failure. Labs completed today reveal creatinine at baseline, BUN up to 27.5, and potassium high at 5.9. Over the past few months, patient has struggled intermittently with hyperkalemia (K 5.3-5.8), unclear culprit. He has not been hydrating well over the past week or so. He has alsobeen struggling with a UTI. Just brought in another urine sample to his PCP office to be checked today. Weight is down to 150#, down 5# from presumed dry weight. I asked him to focus on hydrating with water this week and plan for repeat BMP on Friday to recheck potassium. Continue low sodium diet, consuming no more than 2000 mg in one day. CORE follow up in 3 months with labs prior. Greta Heller PA-C [facility] Pager: [phone] History of Presenting Illness: Henok Chery is [...] previously been followed by Dr. Zaman at [facility]. He was diagnosed with severe biventricular cardiomyopathy [...] have frequent PVCs and was seen at [facility] where he was noted to have episodes of symptomatic bradycardia. At that time, he was diagnosed with hypothyroidism. Started on levothyroxine with improvement in bradycardia. Patient was scheduled to see EP through [facility] in late November 2022 but presented to [facility] ED with malaise, weakness, nausea, and vomiting [...] daily at low-dose Toprol-XL 12.5 mg daily. EVAPORATOR torsemide 20 mg daily was resumed and [...] mildly dilated ascending aorta were also noted. Patient is here today for CORE follow up. Labs completed today reveal low hemoglobin at 11.6, although improved when compared to prior. NT proBNP elevated at 7145. BMP reveals hyperkalemia with potassium 5.9. Creatinine 1.18, BUN 28. Has been feeling well from a cardiac perspective. Denies shortness of breath, orthopnea and PND. Denies chest pain, palpitations, lightheadedness, dizziness, near syncope and syncope. Taking all medications daily as prescribed. Denies use of NSAIDS. Does not consume foods high in potassium. Not good with hydration/drinking water. Weight down to 150# on home scale. Did have recent UTI. Just brought in repeat urine same to PCP today for recheck. Blood pressure 166/52 and HR 68 in clinic today. does most of the cooking and watches [...] Sexual Activity Alcohol use: Yes Comment: occ shot or wine cooler Drug use: Not Currently Sexual activity: Not on file Other Topics Concern Parent/sibling w/ CABG, AL or angioplasty before 65F 55M? Not Asked [...] Please see HPI Physical Exam: Vitals: BP 116/52 (BP Location: Right arm, Patient Position: Sitting, Cuff Size: Adult Regular) Pulse 68 Ht 1.689 m (5' 6.5) Wt 73.3 kg (161 lb 8 oz) BMI 25.68 kg/m?? Wt Readings from Last 4 Encounters: 04/01/23 73 kg (161 lb) 02/20/23 76 kg (167 lb 8 oz) 01/09/23 74.4 kg (164 lb) 12/25/22 75.3 kg (166 lb) GEN: well nourished, in no acute distress. HEENT: Pupils equal, round. Sclerae nonicteric. NECK: Supple, no masses appreciated. No JVD. C/V: Regular rate and rhythm, no murmur, rub or gallop. RESP: Respirations are unlabored. Clear to auscultation [...] (L) 12/25/2022 RBC 4.00 (L) 01/28/2016 HGB 10.7 (L) 04/07/2023 HGB 14.0 01/28/2016 HCT 31.3 (L) 12/25/2022 HCT 42.8 01/28/2016 MCV 98 12/25/2022 MCV 107 (H) 01/28/2016 MCH 28.0 12/25/2022 MCH 35.0 (H) 01/28/2016 MCHC 28.4 (L) 12/25/2022 MCHC 32.7 01/28/2016 RDW 20.2 (H) 12/25/2022 RDW 18.2 (H) 01/28/2016 PLT 372 12/25/2022 PLT 747 (H) 01/28/2016 BMP RESULTS: Lab Results Component Value Date NA 136 03/28/2023 NA 143 02/13/2016 POTASSIUM 5.1 03/28/2023 POTASSIUM 4.4 02/13/2016 CHLORIDE 104 03/28/2023 CHLORIDE 103 02/27/2023 CHLORIDE 109 02/13/2016 CO2 25 03/28/2023 CO2 26 02/13/2016 ANIONGAP 7 03/28/2023 ANIONGAP 8 02/13/2016 GLC 261 (H) 03/28/2023 GLC 93 12/10/2022 GLC 171 (H) 02/13/2016 BUN 20.1 03/28/2023 BUN 25 02/13/2016 CR 1.00 03/28/2023 CR 1.03 02/13/2016 GFRESTIMATED 74 03/28/2023 GFRESTIMATED 70 02/13/2016 GFRESTBLACK 84 02/13/2016 KVNG 8.4 (L) 03/28/2023 KVNG 8.4 (L) 02/13/2016 A1C RESULTS: Lab Results Component Value Date A1C 6.7 (H) 12/09/2022 A1C 8.4 (H) 01/29/2016 INR RESULTS: No results found for: INR Medications Current Outpatient Medications Medication Sig Dispense Refill aspirin (ASA) 81 MG EC tablet Take 81 mg by mouth daily buPROPion (WELLBUTRIN XL) 300 MG 24 hr tablet Take 300 mg by mouth every morning Managed by PCP doxycycline monohydrate (ADOXA) 100 MG tablet Take 1 tablet by mouth 2 times daily ferrous gluconate (FERGON) 324 (38 Fe) MG tablet Take 1 tablet by mouth 2 times daily finasteride (PROSCAR) 5 MG tablet Take 5 mg by mouth daily Managed by PCP glipiZIDE (GLUCOTROL) 10 MG tablet Take 10 mg by mouth daily Managed by PCP hydroxyurea (HYDREA) 500 MG capsule 2 tabs/1000 mg QAM. Managed by PCP/Hematology levothyroxine (SYNTHROID/LEVOTHROID) 175 MCG tablet Take 175 mcg by mouth daily Managed by PCP metoprolol succinate ER (TOPROL XL) 25 MG 24 hr tablet Take 0.5 tablets (12.5 mg) by mouth daily 45tablet 3 omeprazole (PRILOSEC OTC) 20 MG EC tablet Take 20 mg by mouth daily sacubitril-valsartan (ENTRESTO) 49-51 MG per tablet Take 1 tablet by mouth 2 times daily 180 tablet3 tamsulosin (FLOMAX) 0.4 MG capsule Take 0.4 mg by mouth every morning Managed by PCP torsemide (DEMADEX) 20 MG [...] cell cancer of lip SVT (supraventricular tachycardia) (H) wide complex tachycardia Past Surgical History: Procedure Laterality Date BIOPSY IR NEPHROSTOMY TUBE CHANGE LEFT 11/25/2022 IR NEPHROSTOMY TUBE CHANGE LEFT 02/25/2023 IR NEPHROSTOMY TUBE CHANGE LEFT 04/07/2023 IR NEPHROSTOMY TUBE CHANGE LEFT 07/09/2023 Family History Problem Relation Age of Onset Coronary Artery Disease No family hx of Hypertension No family hx of Allergies Beta adrenergic blockers and Penicillins 40 minutes spent on the date of the encounter doing chart review, history and exam, documentation and further activities as noted above Greta Heller PA-C [facility] Care Pager: [phone] documented in this encounter Plan of Treatment Upcoming Encounters Date Type Department Care Team (Late st Contact Info) Description 04/30/2024 12:30 PM CDT Appointment [facility] [address] [place] [address] Greta Heller PA-C [address] [place] [address] 04/30/2024 1:30 PM CDT Lab [facility] [address] [place] [phone] 05/05/2024 9:00 AM CDT Office Visit [facility] [address] [place] [address] Greta Heller PA-C [address] [place] [address] Agustin Snider MD [address] [place] [address] Scheduled Orders Name Type Priority Associated Diagnoses Orde r Schedule Basic metabolic panel Lab Routine 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) Expected: 11/04/2023 (Approximate), Expires: 08/04/2024 N terminal pro BNP outpatient Lab Routine 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) Expected: 11/04/2023 (Approximate), Expires: 08/04/2024 Hemoglobin Lab Routine 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) Expected: 11/04/2023 (Approximate), Expires: 08/04/2024 Scheduled Referrals Name Type Priority Associated Diagnoses Orde r Schedule Follow-Up with Cardiology CORE (Self) Referral Routine: Next available opening 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) Expected: 11/04/2023 (Approximate), Expires: 08/04/2024 documented as of this encounter Visit Diagnoses Diagnosis 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) documented in this encounter Care Teams Peer Tutor Relationship Specialty Start Date End Date Slava Edwards MD PCP - General Family Medicine 12/10/22 Kelley Carrillo, RN Registered Nurse Cardiology 02/11/23 Agustin Snider MD [address] [address] Assigned Heart and Vascular Provider 04/05/23 documented as of this encounter
--- OUTSIDE RECORDS SUMMARY | 2023-11-06 14:11 | XMS_ITS | Encounter Summary ---
Author Name Unknown Organization [facility] Address [address] [place] [id number] Care Team Providers Care Deep Submergence Vehicle Operator Name Role Phone Slava Edwards MD Primary Care Provider [phone] Kelley Carrillo RN Unavailable Unavaila Agustin Villasenor MD Unavailable [phone] Reason for Visit * Reason Onset Date Comments CORE 08/11/2023 Repeat labs need ed 08/08/23 Encounter Details Date Type Department Care Team (Late st Contact Info) Description 08/11/2023 [facility] [address] [place] [address] Kelley Carrillo, RN CORE (Repeat labs needed 08/08/23) Social History Tobacco Use Types Packs/Day [...] encounter Miscellaneous Notes * Telephone Encounter - Kelley Carrillo RN - 08/18/2023 4:13 PM CDT [facility] Hi all, Sorry for [...] Offered that we fax repeat labsagain to [facility] so they do not have to drive [...] 11/04/2023 1:10 PM Greta Heller PA-C [facility] Kelley Carrillo CHIP CRUSHER OPERATOR [facility] [place], [place] [facility] Senior Data Warehouse Architect 08/18/23, 4:25 PM * Telephone Encounter - Kelley Carrillo RN - 08/11/2023 9:07 AM CDT Images from the original note were not included. [facility] Called Henok and Miesha answered (CTC on file) who reports Henok had same day labs ([facility]) w/ Dr. Edwards who told them they [...] time. Next OV w/ PCP is 09/05/23. Called [facility] (ph [phone]) to request 08/04's lab results be faxed. She will fax now. Addendum (@ [phone]): received fax from [place] w/ K results from 08/04/23. Faxed to [facility] requesting results be entered and scanned into pt's chart. Chart Reviewed: -- 08/04/23: SALAZAR nava/ VICTOR [facility] [employer]. Hyperkalemia -potassium 5.9 today -unclear culprit, likely hypovolemia. Weight down 5# from presumed dry weight -recheck K Friday Future Appointments Date Time Provider Department Center 11/04/2023 1:10 PM Greta Heller, MARTY-Aram [facility] [place], [place] [facility] Senior Data Warehouse Architect 08/11/23, 9:08 AM * Telephone Encounter - Kelley Carrillo RN - 08/11/2023 9:06 AM CDT ----- Message from Becka Cruz RN sent at 08/08/2023 11:46 AM CDT ----- Regarding: FW: BMP 08/08 Labs to be drawn at [facility] on 08/08/23. Not yet resulted, check back on 08/11/23 for results. Thanks! Becka Cruz RN, BSN [place], [place] [facility] Senior Data Warehouse Architect August 08, 2023 11:46 AM ----- Message ----- From: Idania Pearce RN Sent: 08/08/2023 12:00 AM CDT To: [facility] Core Nurse Subject: BMP 08/08 Faxed order for BMP to [facility] for 08/08 - watch for results Requested they fax results to us documented in this encounter Plan of Treatment Upcoming Encounters Date Type Department Care Team (Late st Contact Info) Description 04/30/2024 12:30 PM CDT Appointment [facility] [address] [place] [address] Greta Heller PA-C [address] [address] 04/30/2024 1:30 PM CDT Lab [facility] [address] [place] [phone] 05/05/2024 9:00 AM CDT Office Visit [facility] [address] [facility] [address] [place] [address] Greta Heller PA-C [address] [address] Agustin Snider MD [address] [address] documented as of this encounter Visit Diagnoses Not on filedocumented in this encounter Care Teams Deep Submergence Vehicle Operator Relationship Specialty Start Date End Date Slava Edwards MD PCP - General Family Medicine 12/10/22 Kelley Carrillo, RN Registered Nurse Cardiology 02/11/23 Agustin Snider MD [address] [address] Assigned Heart and Vascular Provider 04/05/23 documented as of this encounter
--- OUTSIDE RECORDS SUMMARY | 2023-11-06 14:11 | XMS_ITS | Encounter Summary ---
Author Name Unknown Organization [place] Address [address] [place] [address] Care Team Providers Care Forest Manager Name Role Phone Slava Edwards MD Primary Care Provider Kelley Carrillo RN Unavailable Unavaila Agustin Villasenor MD Unavailable Encounter Details Date Type Department Care Team (Late st Contact Info) Description 10/08/2023 8:04 AM ATHLETIC EVENTS SCORER - 10/08/2023 9:48 AM [facility] Hospital Encounter [facility] Imaging [address] [place] [address] Austen Christianson MD [facility] [address] [place] [address] Juanito Guzman MD [facility] [address] [place] [address] Unilateral hydronephrosis Discharge Disposition: Home or Self Care Social [...] Sign Reading Time Taken Comments Blood Pressure 120/83 10/08/2023 8:20 AM ATHLETIC EVENTS SCORER Pulse 65 10/08/2023 8:20 AM ATHLETIC EVENTS SCORER Temperature 36.4 ??C (97.6 ??F) 10/08/2023 8:20 AM CS T Respiratory Rate 14 10/08/2023 9:18 AM ATHLETIC EVENTS SCORER Oxygen Saturation 89% 10/08/2023 8:20 AM ATHLETIC EVENTS SCORER Inhaled Oxygen Concentration - - Weight - - Height - - Body Mass Index - - documented in this encounter Discharge Instructions * Discharge Instructions* Olivia Bell RN - 10/08/2023 9:32 AM ATHLETIC EVENTS SCORER Invasive Radiology Procedures Discharge Instructions ___Paracentesis ___Biliary Tube ___Stent/Tube Exchange _X__Nephrostomy Tube ___Thoracentesis ___Fistulagram ___Chest Tube Placement ___Biopsy The doctor who did your procedure today was Dr. Guzman Diet and medicines Go back to your [...] swimming until yourpuncture site has fully healed. ??Know when to call for help Call [...] that you cannot control. Important phone numbers: ??[facility] ..................................................................... ??[facility] ........................................................... [phone] ??[facility] ................................................................ [phone] ??[facility].............. [phone] ETIC EVENTS SCORER documented in this encounter Medications at Time [...] of the week. 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 A/O and able to ambulate. Dressing CDI. PIV removed. Belongings returned to patient. Dischargeinstructions reviewed with patient and spouse who verbalized understanding. Pt left hospital in wheelchair with nursing staff. ETIC EVENTS SCORER documented in this encounter Procedure Notes * Juanito Guzman MD - 10/08/2023 9:25 AM CST Interventional Radiology Post-Procedure Note ? Brief Procedure Note: Patient name: Henok Chery Pt Date of procedure: 10/08/2023 Procedure(s): Image guided left percutaneous nephrostomy tube exchange Sedation method: Moderate sedation was employed. The patient was monitored by an interventional radiology nurse at all times throughout the procedure under my direct guidance. 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 Specimen(s) removed: None Additional studies ordered: None Drains: 12 Fr locking pigtail nephrostomy catheter Estimated Blood Loss: Minimal Complications: None Vascular closure method: N/A Findings/Notes/Comments: Successful exchange of left 12 fr percutaneous nephrostomy. ? Please see dictation in PACS or under the Imaging tab in EPIC for detailed procedure note. Juanito Guzman M.D. Vascular and Interventional Radiology Pager: After Hours / Scheduling: 10/08/2023 9:25 AM ETIC EVENTS SCORER documented in this encounter Plan of Treatment Upcoming Encounters Date Type Department Care Team (Late st Contact Info) Description 04/30/2024 12:30 PM CDT Appointment [facility] Specialty Care [address] [place] [address] [address] [place] [address] Greta Heller PA-C [address] [address] 04/30/2024 1:30 PM CDT Lab [facility] [address] [place] [address] [address] [place] [phone] 05/05/2024 9:00 AM CDT Office Visit [address] [place] [phone] Greta Heller PA-C [address] [address] Agustin Snider MD [address] [address] documented as of this encounter Procedures Procedure Name Priority Date/Time Associated Diagnosis Comments IR NEPHROSTOMY TUBE CHANGE LEFT Routine 10/08/2023 9:26 AM ATHLETIC EVENTS SCORER Unilateral hydronephrosis documented in this encounter Results * IR Nephrostomy Tube Change Left (10/08/2023 9:26 AM ATHLETIC EVENTS SCORER) Anatomical Region Laterality Modality Abdomen/Pelvis Radio Fluoroscop y, Radio Fluoroscopy Impressions 10/08/2023 9:34 AM ATHLETIC EVENTS SCORER IMPRESSION: 1. Uneventful left nephrostomy catheter exchange. Plan: The patient should return in 3 months for routine catheter change JUANITO GUZMAN MD Narrative 10/08/2023 9:34 AM ATHLETIC EVENTS SCORER [facility] EXAM: LEFT NEPHROSTOMY TUBE CHANGE LOCATION: [facility] CLINICAL HISTORY: The patient has a [...] no immediate complications. FINDINGS: The existing 12 Mongolian nephrostomy tube is in the renal collecting system. The catheter is patent and there is no hydronephrosis. The new 12 Mongolian nephrostomy tube is in good position. Procedure Note Juanito Guzman MD - 10/08/2023 [facility] EXAM: LEFT NEPHROSTOMY TUBE CHANGE LOCATION: [facility] CLINICAL HISTORY: The patient has a [...] no immediate complications. FINDINGS: The existing 12 Mongolian nephrostomy tube is in the renal collecting system. The catheter is patent and there is no hydronephrosis. The new 12 Mongolian nephrostomy tube is in good position. IMPRESSION: 1. Uneventful left nephrostomy catheter exchange. Plan: The patient should return in 3 months for routine catheter change JUANITO GUZMAN MD Austen Christianson MD IMG IR ORDERAB LES documented in this encounter Visit Diagnoses Diagnosis Unilateral hydronephrosis Hydronephrosis documented in this encounter Administered Medications Inactive Administered Medications - up to 3 most recent administrations Medication Order MAR Action Action Date Dose Rate Site clindamycin (CLEOCIN) 900 mg in 50 mL D5W intermittent infusion Routine, 900 mg, Intravenous, PRE-OP/PRE-PROCEDURE, Starting on Fri10/08/23 at 0814, For 1 dose, Give dose within 1 hour PRIOR to procedure., Indications: Perioperative Pharmacoprophylaxis, IR Pre-procedure iopamidol (ISOVUE-300) solution 61% 10 mL 10 mL, Oral, ONCE, On Fri10/08/23 at 0930, For 1 dose, Supplied and administered by Radiology. $Given 10/08/2023 9:24 AM ATHLETIC EVENTS SCORER 10 mLs lidocaine (LMX4) cream Topical, EVERY 1 HOUR PRN, pain, with VAD insertion, Starting on Fri10/08/23 at 0814, Apply at least 30 minutes prior to VAD insertion in divided doses as needed for size of site for insertion. MAX Dose: 2.5 g (?? of 5 g tube) Do NOT give if patient has a history of allergy to any local anesthetic or any yazmin product. Do NOT use both lidocaine intradermal/subcutaneous injection and the lidocaine cream on the same site., IR Pre-procedure lidocaine 1 % 0.1-1 mL 0.1-1 mL, Other, EVERY 1 HOUR PRN, mild pain with VAD insertion, Starting on Fri10/08/23 at 0814, MAX dose 1 mL subcutaneous OR intradermal along the side of the vein in divided doses as needed for VAD insertion. Do NOT give if patient has a history of allergy to any local anesthetic or any yazmin product. Do NOT use both lidocaine intradermal/subcutaneous injection and the lidocaine cream on the same site., IR Pre-procedure $Given 10/08/2023 9:21 AM ATHLETIC EVENTS SCORER 0.5 mLs lidocaine 1 % 1-30 mL 1-30 mL, Intradermal, ONCE PRN, local anesthetic. When verbally ordered by prescriber during the procedure., Starting on Fri10/08/23 at 0814, For 1 dose, Dose to be divided into smaller volumes appropriate for the procedure. Provider to administer intradermally. Dose to be divided into smaller volumes appropriate for the procedure., IR Intra-procedure sodium chloride (PF) 0.9% PF flush 3 mL 3 mL, Intracatheter, EVERY 8 HOURS, First dose on Fri10/08/23 at 0830, to lock peripheral IV dormant line, IR Pre-procedure sodium chloride (PF) 0.9% PF flush 3 mL 3 mL, Intracatheter, EVERY 1 MIN PRN, line flush, other, to ensure patency or to lock dormant line, Starting on Fri10/08/23 at 0814, IR Pre-procedure sodium chloride 0.9 % bag TABLE SOLN 1 Bag, TABLE SOLN, CONTINUOUS PRN, other, Catheter prep table solution use as directed by provider., Starting on Fri10/08/23 at 0814, For 5 doses, Maximum total dose 5000 mL Nurse will document number of bags used at the end of the procedure. NOT A PRESSURE BAG, IR Intra-procedure documented in this encounter Active and Recently Administered Medications Times are shown in ATHLETIC EVENTS SCORER. Scheduled Medication Order 10/06/2023 10/07/2023 10/08/2023 clindamycin (CLEOCIN) 900 mg in 50 mL D5W intermittent infusion Routine, 900 mg, Intravenous, PRE-OP/PRE-PROCEDURE, Starting on Fri10/08/23 at 0814, For 1 dose, Give dose within 1 hour PRIOR to procedure., Indications: Perioperative Pharmacoprophylaxis, IR Pre-procedure iopamidol (ISOVUE-300) solution 61% 10 mL (COMPLETED) 10 mL, Oral, ONCE, On Fri10/08/23 at 0930, For 1 dose, Supplied and administered by Radiology. 0924 ($Given - Provi nidhi: Chuck Paris RN) sodium chloride (PF) 0.9% PF flush 3 mL 3 mL, Intracatheter, EVERY 8 HOURS, First dose on Fri10/08/23 at 0830, to lock peripheral IV dormant line, IR Pre-procedure 0830 (Canceled Entry - Provider: Orders Generic Provider - Comment: Automatically canceled at discontinue of medication order) PRN Medication Order 10/06/2023 10/07/2023 10/08/2023 lidocaine (LMX4) cream Topical, EVERY 1 HOUR PRN, pain, with VAD insertion, Starting on Fri10/08/23 at 0814, Apply at least 30 minutes prior to VAD insertion in divided doses as needed for size of site for insertion. MAX Dose: 2.5 g (?? of 5 g tube) Do NOT give if patient has a history of allergy to any local anesthetic or any yazmin product. Do NOT use both lidocaine intradermal/subcutaneous injection and the lidocaine cream on the same site., IR Pre-procedure lidocaine 1 % 0.1-1 mL 0.1-1 mL, Other, EVERY 1 HOUR PRN, mild pain with VAD insertion, Starting on Fri10/08/23 at 0814, MAX dose 1 mL subcutaneous OR intradermal along the side of the vein in divided doses as needed for VAD insertion. Do NOT give if patient has a history of allergy to any local anesthetic or any yazmin product. Do NOT use both lidocaine intradermal/subcutaneous injection and the lidocaine cream on the same site., IR Pre-procedure 0921 ($Given - Provi nidhi: Chuck Paris RN) lidocaine 1 % 1-30 mL 1-30 mL, Intradermal, ONCE PRN, local anesthetic. When verbally ordered by prescriber during the procedure., Starting on Fri10/08/23 at 0814, For 1 dose, Dose to be divided into smaller volumes appropriate for the procedure. Provider to administer intradermally. Dose to be divided into smaller volumes appropriate for the procedure., IR Intra-procedure sodium chloride (PF) 0.9% PF flush 3 mL 3 mL, Intracatheter, EVERY 1 MIN PRN, line flush, other, to ensure patency or to lock dormant line, Starting on Fri10/08/23 at 0814, IR Pre-procedure sodium chloride 0.9 % bag TABLE SOLN 1 Bag, TABLE SOLN, CONTINUOUS PRN, other, Catheter prep table solution use as directed by provider., Starting on Fri10/08/23 at 0814, For 5 doses, Maximum total dose 5000 mL Nurse will document number of bags used at the end of the procedure. NOT A PRESSURE BAG, IR Intra-procedure documented in this encounter Care Teams Forest Manager Relationship Specialty Start Date End Date Slava Edwards MD PCP - General Family Medicine 12/10/22 Kelley Carrillo, CLARA Registered Nurse Cardiology 02/11/23 Agustin Snider MD [address] [address] Assigned Heart and Vascular Provider 04/05/23 documented as of this encounter
--- OUTSIDE RECORDS SUMMARY | 2023-11-06 14:11 | XMS_ITS | Encounter Summary ---
Author Name Unknown Organization [place] Address [address] [place] [address] Care Team Providers Care Manager Track Name Role Phone Slava Edwards MD Primary Care Provider [phone] Kelley Carrillo RN Unavailable Unavaila Agustin Villasenor MD Unavailable [phone] Encounter Details Date Type Department Care Team (Latest Contact Info) Description 08/04/2023 Travel Social History Tobacco Use Types Packs/Day [...] Info) Description 04/30/2024 12:30 PM CDT Appointment [facility] Specialty Care [address] [place] [address] [address] [place] [address] Greta Heller PA-C [address] [place] [address] 04/30/2024 1:30 PM CDT Lab [facility] [address] [facility] [address] [place] [phone] 05/05/2024 9:00 AM CDT Office Visit [facility] [address] [facility] [address] [place] [address] Greta Heller PA-C [address] [place] [address] Agustin Snider MD [address] [address] documented as of this encounter Visit Diagnoses Not on filedocumented in this encounter Care Teams Manager Track Relationship Specialty Start Date End Date Slava Edwards MD PCP - General Family Medicine 12/10/22 Kelley Carrillo, RN Registered Nurse Cardiology 02/11/23 Agustin Snider MD [address] [address] Assigned Heart and Vascular Provider 04/05/23 documented as of this encounter
--- OUTSIDE RECORDS SUMMARY | 2023-11-06 14:11 | XMS_ITS | Encounter Summary ---
Author Name Unknown Organization [place] Address [address] [place] [address]. [place] [address] Care Team Providers Care Creative Developer Name Role Phone Slava Edwards MD Primary Care Provider [phone] Kelley Carrillo RN Unavailable Unavaila Agustin Villasenor MD Unavailable [phone] Encounter Details Date Type Department Care Team (Late st Contact Info) Description 10/07/2023 Telephone [facility] Interventional Radiology [address] [place] [address] Melvin Goodwin, RN Social History Tobacco Use Types Packs/Day Years [...] Info) Description 04/30/2024 12:30 PM CDT Appointment [facility] Specialty Care [address] [facility] [address] [place] [address] Greta Heller PA-C [address] [address] 04/30/2024 1:30 PM CDT Lab [facility] [address] [facility] [address] [place] [address] 05/05/2024 9:00 AM CDT Office Visit [address] [place] [address] Greta Heller PA-C [address] [address] Agustin Snider MD [address] [address] documented as of this encounter Visit Diagnoses Not on filedocumented in this encounter Care Teams Creative Developer Relationship Specialty Start Date End Date Slava Edwards MD PCP - General Family Medicine 12/10/22 Kelley Carrillo, CLARA Registered Nurse Cardiology 02/11/23 Agustin Snider MD [address] [address] Assigned Heart and Vascular Provider 04/05/23 documented as of this encounter
--- OUTSIDE RECORDS SUMMARY | 2023-11-06 14:12 | XMS_ITS | Encounter Summary ---
Author Name Unknown Organization [place] Address [address] [place] [address]. [place] [address] Care Team Providers Care Proposal Director Name Role Phone Slava Edwards MD Primary Care Provider [phone] Dyan Brandt PA-C Unavailable [phone] Kelley Carrillo RN Unavailable Unavaila ble Agustin Snider MD Unavailable [phone] Idania Pearce RN Unavailable Unavaila ble Reason for Visit * Reason Onset Date Comments Call Back 03/25/2023 Pt's IR NEPHROST GOKUL TUBE is hurting a lot. Pt needs to speak with a nurse and/or come in to have adjusted sonny. Please call [phone]. Thanks! Encounter Details Date Type Department Care Team (Late st Contact Info) Description 03/25/[address] [facility] Interventional Radiology [facility] [address] [place] [address] Herman Rios MD [facility] [address] [place] [address] [address] [place] [address] Call Back (Pt's IR NEPHROSTOMY TUBE is hurting a lot. Pt needs to speak with a nurse and/or come in to have adjusted sonny. Please call [phone]. Thanks! ) Social History Tobacco Use Types Packs/Day Years Used Date Smoking Tobacco: Never Alcohol Use Standard Drinks/Week Comments Yes 0 (1 standard drink = 0.6 oz pur e alcohol) occ. PHQ-2 Answer Date Recorded PHQ-2 Score 0 01/09/2023 Sex and Gender Information Value Date Recorded Sex Assigned at Not on file Gender Identity Not on file Sexual Orientation Not on file COVID-19 Exposure Response Date Recorded In the last 10 days, have yo u been in contact with someone who was confirmed or suspected to have Coronavirus/COVID-19? No / Unsure 03/28/2023 9:33 AM CDT documented as of this encounter Miscellaneous Notes * Telephone Encounter - Sherice Rueda - 03/25/2023 10:28 AM CDT [facility] Phone Message May a detailed message be left on voicemail: yes Reason for Call: Other: Pt's IR NEPHROSTOMY TUBE is hurting a lot. Pt needs to speak with a nurse and/or come in to have adjusted sonny. Please call [phone]. Thanks! Action Taken: Message routed to: [facility] IR Travel Screening: Not Applicable documented in this encounter Plan of Treatment Upcoming Encounters Date Type Department Care Team (Late st Contact Info) Description 04/30/2024 12:30 PM CDT Appointment [facility] Specialty Care [address] [place] [address] [address] [place] [phone] Greta Heller PA-C [address] [address] 04/30/2024 1:30 PM CDT Lab [facility] [address] [place] [address] [address] [place] [phone] 05/05/2024 9:00 AM CDT Office Visit [address] [place] [phone] Greta Heller PA-C [address] [address] Agustin Snider MD [address] [address] documented as of this encounter Visit Diagnoses Not on filedocumented in this encounter Care Teams Proposal Director Relationship Specialty Start Date End Date Slava Edwards MD PCP - General Family Medicine 12/10/22 Dyan Brandt PA-C [address] [address] Assigned Heart and Vascular Provider 12/28/22 04/04/23 Kelley Carrillo, RN Registered Nurse Cardiology 02/11/23 Agustin Snider MD [address] [address] Assigned Heart and Vascular Provider 04/05/23 Idania Pearce, CLARA Registered Nurse Cardiology 10/30/23 documented as of this encounter
--- OUTSIDE RECORDS SUMMARY | 2023-11-06 14:12 | XMS_ITS | Encounter Summary ---
Author Name Unknown Organization [place] Address [address] [place] [address] Care Team Providers Care Monitoring Analyst Name Role Phone Slava Edwards MD Primary Care Provider [phone] Kelley Carrillo RN Unavailable Unavaila Agustin Villasenor MD Unavailable [phone] Encounter Details Date Type Department Care Team (Latest Contact Info) Description 04/07/2023 Travel Social History Tobacco Use Types Packs/Day [...] suspected to have Coronavirus/COVID-19? No / Unsure 04/07/2023 8:18 AM CDT documented as of this encounter Plan of Treatment Upcoming Encounters Date Type Department Care Team (Late st Contact Info) Description 04/30/2024 12:30 PM CDT Appointment [facility] Care [address] [facility] [address] [place] [address] Greta Heller PA-C [address] [address] 04/30/2024 1:30 PM CDT Lab [address] [place] [address] 05/05/2024 9:00 AM CDT Office Visit [address] [place] [phone] Greta Heller PA-C [address] [address] Agustin Snider MD [address] [address] documented as of this encounter Visit Diagnoses Not on filedocumented in this encounter Care Teams Monitoring Analyst Relationship Specialty Start Date End Date Slava Edwards MD PCP - General Family Medicine 12/10/22 Kelley Carrillo, CLARA Registered Nurse Cardiology 02/11/23 Agustin Snider MD [address] [id number] Assigned Heart and Vascular Provider 04/05/23 documented as of this encounter
--- OUTSIDE RECORDS SUMMARY | 2023-11-06 14:12 | XMS_ITS | Encounter Summary ---
Author Name Unknown Organization [place] Address [address] [place] [address] Care Team Providers Care Sustainability Coach Name Role Phone Slava Edwards MD Primary Care Provider [phone] Dyan Brandt PA-C Unavailable [phone] Kelley Carrillo RN Unavailable Unavaila ble Encounter Details Date Type Department Care Team (Latest Contact Info) Description 04/01/2023 Travel Social History Tobacco Use Types Packs/Day [...] suspected to have Coronavirus/COVID-19? No / Unsure 04/01/2023 9:44 AM CDT documented as of this encounter Plan of Treatment Upcoming Encounters Date Type Department Care Team (Late st Contact Info) Description 04/30/2024 12:30 PM CDT Appointment [facility] Care [address] [facility] [address] [place] [address] Greta Heller PA-C [address] [address] 04/30/2024 1:30 PM CDT Lab [facility] [address] [place] [address] [address] [place] [address] 05/05/2024 9:00 AM CDT Office Visit [address] [place] [address] Greta Heller PA-C [address] [address] Agustin Snider MD [address] [address] documented as of this encounter Visit Diagnoses Not on filedocumented in this encounter Care Teams Sustainability Coach Relationship Specialty Start Date End Date Slava Edwards MD PCP - General Family Medicine 12/10/22 Dyan Brandt PA-C [address] [address] Assigned Heart and Vascular Provider 12/28/22 04/04/23 Kelley Carrillo RN Registered Nurse Cardiology 02/11/23 documented as of this encounter
--- OUTSIDE RECORDS SUMMARY | 2023-11-06 14:12 | XMS_ITS | Encounter Summary ---
Author Name Unknown Organization [facility] Address [address] [place] [id number] Care Team Providers Care Speed Reading Teacher Name Role Phone Slava Edwards MD Primary Care Provider [phone] Kelley Carrillo RN Unavailable Unavaila Agustin Villasenor MD Unavailable [phone] Reason for Referral * Therapeutic Imaging/IR (Routine) - Pending Review Specialty Diagnoses / Procedures Referred By Contac t Referred To Contact Radiology. Diagnoses Ureteral obstruction, left Procedures IR Nephrostomy Tube Change Left Shelley Saab DO [facility] [address] [place] [id number] Referral ID Status Reason Start Date Expiration Date V isits Requested Visits Authorized [id number] Pending Review 04/06/2023 04/05/2024 1 1 Encounter Details Date Type Department Care Team (Latest Contact Info) Description 04/07/2023 8:18 AM CDT - 04/07/2023 10:32 AM CDT Hospital Encounter [facility] [address] [place] [address] Juan Aguayo MD [address] [place] [id number] Shelley SaabelleDO [facility] [address] [address] Ureteral obstruction, left Discharge Disposition: Home or Self Care Social [...] Sign Reading Time Taken Comments Blood Pressure 121/60 04/07/2023 9:30 AM CDT Pulse 78 04/07/2023 9:30 AM CDT Temperature 36.6 ??C (97.8 ??F) 04/07/2023 8:45 AM CD T Respiratory Rate 10 04/07/2023 9:30 AM CDT Oxygen Saturation 97% 04/07/2023 9:30 AM CDT Inhaled Oxygen Concentration - - Weight - - Height - - Body Mass Index - - documented in this encounter Discharge Instructions * Discharge Instructions* Beatriz Khan RN - 04/07/2023 10:02 AM CDT Images from the original note were not included. Discharge Instructions for Percutaneous Nephrostomy You had a procedure called percutaneous nephrostomy. This means that urine was drained from your kidney to prevent pain, infection, and kidney damage. You had the procedure because your kidney or thetube leading from the kidney to the bladder (ureter) was blocked by a kidney stone or tumor, or perhaps due to another problem. The blockage caused a backup of urine in your kidney. A thin, flexible tube (catheter) will stay in place until the problem that caused the buildup of urine has been treated. This may be as soon as a day or as long as weeks to months. The catheter bag is taped to your leg so that you can walk around. Activity Don???t lift anything heavier than 10 pounds until your healthcare provider says it???s OK. Don't do any strenuous activities, such as mowing the lawn, vacuuming, playing sports, or anything that will cause your tubing to be pulled or moved. Slowly increase your activity level with short, frequent walks 3 to 4 times a day. Don???t drive while you are still taking pain medicine. Wait until your healthcare provider says it???s OK to drive. Home care Eat your normal diet. Drink 8 to 12 (8-ounce) cups of liquid each day unless you were told to limit liquids because of another condition. About 30 to 60 milliliters of urine should drain into the bag each hour. Wear loose, comfortable clothes that won???t pull or kink the catheter tube. Check your dressing often to make sure the tubing is secure. Don???t let the drainage bag hang freely, or it will pull on the catheter. Keep it secured to your leg or hold it temporarily. Empty the drainage bag often to keep the weight of the bag from pulling on the catheter. Empty the bag when it is 1/2 to 2/3 full. Always empty the bag before you go to bed. Wash your hands before and after emptying the bag. Measure and record the amount and color of the urine in the bag. Gently clean the skin around the catheter with mild soap and warm water. Check the skin for any signs of infection. Pat dry with a clean towel. Change your dressing if it becomes loose or dirty. Ask your healthcare provider how your skin should be cleaned and which skin barriers and attachment devices to use. Ask someone to help you care foryour nephrostomy tube and follow the cleaning instructions. Throw away the used dressing in a plastic bag. If you were asked to stop any medicines before the surgery, ask the healthcare provider when you may start taking them again. This is especially important in the case of blood thinners (anticoagulants or antiplatelet medicines). Follow-up care Follow up with your healthcare provider, or as advised. If you need to have your nephrostomy tube in place for a time, you will need to schedule an appointment to have the tube changed every 2 to 3 months. Otherwise, you will need to schedule an appointment to have the tube removed. Your healthcareprovider will tell you when this needs to happen. When to call your healthcare provider Call your healthcare provider right away if you have any of these: A catheter that is not draining The catheter comes out. Don't try to put it back in. The catheter partly comes out. There may be a black lissette on the tube to lissette the place where the tube enters the skin. Check to see that the black lissette is next to the skin. If the black lissette isn't next to the skin, the tube has moved. A healthcare provider needs to put it back in. Don't try to put it back in. Pain, redness, or discharge around the catheter Fever of 100.4??F ( 38??C) or higher, or as directed by your healthcare provider A noticeable increase or decrease in the amount of urine that drains Cloudy or smelly urine Urine that changes to a pink or red color More pain Severe pain in your side Nausea and vomiting New or worsening symptoms [employer] last reviewed this educational content on 01/19/2020 ?? [id number] [employer]. All rights reserved. This information is not intended as a substitute for professional medical care. Always follow your healthcare professional's instructions. Flush tube with 10 ml normal saline flushes when needed if drainage is slowing or bloody. documented in this encounter Medications at Time [...] as of this encounter Progress Notes * Beatriz Khan RN - 04/07/2023 10:00 AM CDT Nephrostomy tube exchange performed without complication. Pt tolerated procedure well. Post procedure recovery without complication. Discharge instructions reviewed with the pt and his family. Pt discharged home documented in this encounter Procedure Notes * Kaveh Aguayo MD - 04/07/2023 9:49 AM CDTAssociated Order(s): Left PCN change [facility] Procedure: Left PCN change Date/Time: 04/07/2023 9:47 AM Performed by: Kaveh Aguayo MD Authorized by: Kaveh Aguayo MD [employer] Site Marked: Yes Prior Images Obtained and Reviewed: Yes Required items: Required blood products, implants, devices and special equipment available Patient identity confirmed: Verbally with patient Patient was reevaluated immediately before administering moderate or deep sedation or anesthesia Confirmation Checklist: Patient's identity using two indicators, relevant allergies, procedure was appropriate and matched the consent or emergent situation and correct equipment/implants were available Time out: Immediately prior to the procedure a time out was called [place] Protocol: the Joint Commission [place] Protocol was followed Preparation: Patient was prepped and draped in usual sterile fashion ESBL (mL): 5 ANESTHESIA Anesthesia: Local infiltration Local Anesthetic: Lidocaine 1% without epinephrine Anesthetic Total (mL): 10 SEDATION Patient Sedated: No See dictated procedure note for full details. PROCEDURE Describe Procedure: Successful left PCN exchange. Will start start flushes as needed when the urine is bloody. This is most likely tumor related bleeding. Patient Tolerance: Patient tolerated the procedure well with no immediate complications Length of time physician/provider present for 1:1 monitoring during sedation: 0 documented in this encounter Plan of Treatment Upcoming Encounters Date Type Department Care Team (Late st Contact Info) Description 04/30/2024 12:30 PM CDT Appointment [facility] [id number] [address] [place] [address] Greta Heller PA-C [address] [address] 04/30/2024 1:30 PM CDT Lab [facility] [address] [place] [address] 05/05/2024 9:00 AM CDT Office Visit [address] [place] [phone] Greta Heller PA-C [address] [address] Agustin Snider MD [address] [address] documented as of this encounter Procedures Procedure Name Priority Date/Time Associated Diagnosis Comments IMAGING PROCEDURE NOTE Routine 04/07/2023 9:47 AM CDT IR NEPHROSTOMY TUBE CHANGE LEFT Routine 04/07/2023 9:41 AM CDT Ureteral obstruction, left HEMOGLOBIN STAT 04/07/2023 9:33 AM CDT documented in this encounter Results * Left PCN change (04/07/2023 9:47 AM CDT) Narrative Kaveh Aguayo MD - 04/07/2023 9:47 AM CDT Kaveh Aguayo MD ? 04/07/2023 ??9:49 AM [facility] Procedure: Left PCN change Date/Time: 04/07/2023 9:47 AM Performed by: Kaveh Aguayo MD Authorized by: Kaveh Aguayo MD ?? [employer] Site Marked: Yes Prior Images Obtained and Reviewed: ??Yes Required items: Required blood products, implants, devices and special equipment available ?? Patient identity confirmed: ??Verbally with patient Patient was reevaluated immediately before administering moderate or deep sedation or anesthesia Confirmation Checklist: ??Patient's identity using two indicators, relevant allergies, procedure was appropriate and matched the consent or emergent situation and correct equipment/implants were available Time out: Immediately prior to the procedure a time out was called ?? [place] Protocol: the Joint Commission [place] Protocol was followed ?? Preparation: Patient was prepped and draped in usual sterile fashion ?? ESBL (mL): ??5 ANESTHESIA Anesthesia: Local infiltration Local Anesthetic: ??Lidocaine 1% without epinephrine Anesthetic Total (mL): ??10 SEDATION Patient Sedated: No ?? See dictated procedure note for full details. PROCEDURE Describe Procedure: Successful left PCN exchange. ??Will start start flushes as needed when the urine is bloody. ??This is most likely tumor related bleeding. Patient Tolerance: ??Patient tolerated the procedure well with no immediate complications Length of time physician/provider present for 1:1 monitoring during sedation: 0 Kaveh Aguayo MD PROCEDURE/MINOR SURG ICAL ORDERABLES * IR Nephrostomy Tube Change Left (04/07/2023 9:41 AM CDT) Anatomical Region Laterality Modality Abdomen/Pelvis Radio Fluoroscop y, Radio Fluoroscopy Impressions 04/07/2023 10:11 AM CDT IMPRESSION: Successful exchange of left 12 Cymro nephrostomy tube, as detailed above existing tube was in the collecting system, however, there was mild retraction. New tube resides within the central pelvis. Filling defects in the collecting system compatible with clot. Plan: ??The patient is to follow up in three months for routine nephrostomy catheter maintenance. 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 Flush adapter attached. Patient to flush nephrostomy tube if concern for clot obstructing the tube. KAVEH AGUAYO MD Narrative 04/07/2023 10:11 AM CDT PROCEDURE(S): 1. Left antegrade nephrostogram 2. Left percutaneous nephrostomy tube exchange DATE OF PROCEDURE: 04/07/2023. MEDICATIONS: 1% lidocaine and 1 g Ancef IV. CONTRAST: 10 mL Visipaque 300 into the renal collecting system FLUOROSCOPY TIME: 0.6 minutes. AIR KERMA: ??11 mGy. COMPLICATIONS: None. CLINICAL HISTORY/INDICATION: Left hydronephrosis with nephrostomy tube in place. Patient presents due to increased bloody discharge from the nephrostomy tube. PROCEDURES AND FINDINGS: Following a discussion of [...] was used for local anesthetic. A preliminary lute packer or applier radiograph was performed and demonstrates a locking [...] over the wire for a new 12 Cymro nephrostomy tube, and its tip was coiled [...] interventional radiology in stable condition. Procedure Note Kaveh Aguayo MD - 04/07/2023 PROCEDURE(S): 1. Left antegrade nephrostogram 2. Left percutaneous nephrostomy tube exchange DATE OF PROCEDURE: 04/07/2023. MEDICATIONS: 1% lidocaine and 1 g Ancef IV. CONTRAST: 10 mL Visipaque 300 into the renal collecting system FLUOROSCOPY TIME: 0.6 minutes. AIR KERMA: 11 mGy. COMPLICATIONS: None. CLINICAL HISTORY/INDICATION: Left hydronephrosis with nephrostomy tube in place. Patient presents due to increased bloody discharge from the nephrostomy tube. PROCEDURES AND FINDINGS: Following a discussion of [...] was used for local anesthetic. A preliminary lute packer or applier radiograph was performed and demonstrates a locking [...] over the wire for a new 12 Cymro nephrostomy tube, and its tip was coiled [...] condition. IMPRESSION: Successful exchange of left 12 Cymro nephrostomy tube, as detailed above existing tube was in the collecting system, however, there was mild retraction. New tube resides within the central pelvis. Filling defects in the collecting system compatible with clot. Plan: The patient is to follow up in three months for routine nephrostomy catheter maintenance. 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 Flush adapter attached. Patient to flush nephrostomy tube if concern for clot obstructing the tube. KAVEH AGUAYO MD Shelley Saab DO G IR ORD ERABLES * (ABNORMAL) Hemoglobin (04/07/2023 9:33 AM CDT) Hemoglobin 10.7(L) 13.3 - 17.7 g/dL 04/07/2023 9:43 AM CDT LABORATORY Blood VENOUS LINE / Unknown Venipuncture / Unknown 04/07/2023 9:33 AM CDT 04/07/2023 9:39 AM CDT Kaveh Aguayo MD LAB - BLOOD ORDERABL ES LABORATORY [facility] [address] Lab (1st floor, no room number) [place] [address], [facility] [phone] documented in this encounter Visit Diagnoses Diagnosis Ureteral obstruction, left Other ureteric obstruction documented in this encounter Administered Medications Inactive Administered Medications - up to 3 most recent administrations Medication Order MAR Action Action Date Dose Rate Site acetaminophen (TYLENOL) tablet 650 mg 650 mg, Oral, ONCE PRN, mild pain, Starting on Fri04/07/23 at 0949, Maximum acetaminophen dose from all sources = 75 mg/kg/day not to exceed 4 grams/day. ceFAZolin (ANCEF) 2 g in 100 mL D5W intermittent infusion STAT, 2 g, Intravenous, EVERY 8 HOURS, First dose on Fri04/07/23 at 0930, Indications: pre procedure $New Bag 04/07/2023 9:23 AM CDT 2 g 200 mL/hr ceFAZolin (ANCEF) 2 g/100 mL in 100 mL D5W intermittent infusion Starting on Fri04/07/23 at 0917, For 1 dose, Beatriz Suh: cabinet override lidocaine (PF) (XYLOCAINE) 1 % injection Starting on Fri04/07/23 at 0901, For 1 dose, Beatriz Suh: cabinet override lidocaine 1 % 1-30 mL 1-30 mL, Intradermal, ONCE PRN, local anesthetic. When verbally ordered by prescriber during the procedure., Starting on Fri04/07/23 at 0909, For 1 dose, Dose to be divided into smaller volumes appropriate for the procedure. Provider to administer intradermally. Dose to be divided into smaller volumes appropriate for the procedure., IR Intra-procedure $Given 04/07/2023 9:31 AM CDT 4 mLs sodium chloride (PF) 0.9% PF flush 3 mL 3 mL, Intracatheter, EVERY 8 HOURS, First dose on Fri04/07/23 at 0930, to lock peripheral IV dormant line, IR Pre-procedure sodium chloride (PF) 0.9% PF flush 3 mL 3 mL, Intracatheter, EVERY 1 MIN PRN, line flush, other, to ensure patency or to lock dormant line, Starting on Fri04/07/23 at 0908, IR Pre-procedure sodium chloride 0.9 % bag TABLE SOLN 1 Bag, TABLE SOLN, CONTINUOUS PRN, other, Catheter prep table solution use as directed by provider., Starting on Fri04/07/23 at 0909, For 5 doses, Maximum total dose 5000 mL Nurse will document number of bags used at the end of the procedure. NOT A PRESSURE BAG, IR Intra-procedure sodium chloride 0.9% 1000 mL TABLE SOLN 1 Bag, TABLE SOLN, CONTINUOUS PRN, Catheter prep table solution use as directed by provider., Starting on Fri04/07/23 at 0909, For 5 doses, Maximum total dose 5 bags = 5000 mL. Nurse will document total number of bags used at the end of the procedure. NOT A PRESSURE BAG, IR Intra-procedure documented in this encounter Active and Recently Administered Medications Times are shown in CDT. Scheduled Medication Order 04/05/2023 04/06/2023 04/07/2023 ceFAZolin (ANCEF) 2 g in 100 mL D5W intermittent infusion STAT, 2 g, Intravenous, EVERY 8 HOURS, First dose on Fri04/07/23 at 0930, Indications: pre procedure 09 ($New Bag - Pro vider: Beatriz Khan RN) sodium chloride (PF) 0.9% PF flush 3 mL 3 mL, Intracatheter, EVERY 8 HOURS, First dose on Fri04/07/23 at 0930, to lock peripheral IV dormant line, IR Pre-procedure 09 (Canceled Entry - Provider: Orders Generic Provider - Comment: Automatically canceled at discontinue of medication order) PRN Medication Order 04/05/2023 04/06/2023 04/07/2023 acetaminophen (TYLENOL) tablet 650 mg 650 mg, Oral, ONCE PRN, mild pain, Starting on Fri04/07/23 at 0949, Maximum acetaminophen dose from all sources = 75 mg/kg/day not to exceed 4 grams/day. lidocaine 1 % 1-30 mL (COMPLETED) 1-30 mL, Intradermal, ONCE PRN, local anesthetic. When verbally ordered by prescriber during the procedure., Starting on Fri04/07/23 at 0909, For 1 dose, Dose to be divided into smaller volumes appropriate for the procedure. Provider to administer intradermally. Dose to be divided into smaller volumes appropriate for the procedure., IR Intra-procedure 09 ($Given - Provi nidhi: Beatriz Khan RN) sodium chloride (PF) 0.9% PF flush 3 mL 3 mL, Intracatheter, EVERY 1 MIN PRN, line flush, other, to ensure patency or to lock dormant line, Starting on Fri04/07/23 at 0908, IR Pre-procedure sodium chloride 0.9 % bag TABLE SOLN 1 Bag, TABLE SOLN, CONTINUOUS PRN, other, Catheter prep table solution use as directed by provider., Starting on Fri04/07/23 at 0909, For 5 doses, Maximum total dose 5000 mL Nurse will document number of bags used at the end of the procedure. NOT A PRESSURE BAG, IR Intra-procedure sodium chloride 0.9% 1000 mL TABLE SOLN 1 Bag, TABLE SOLN, CONTINUOUS PRN, Catheter prep table solution use as directed by provider., Starting on Fri04/07/23 at 0909, For 5 doses, Maximum total dose 5 bags = 5000 mL. Nurse will document total number of bags used at the end of the procedure. NOT A PRESSURE BAG, IR Intra-procedure documented in this encounter Care Teams Speed Reading Teacher Relationship Specialty Start Date End Date Slava Edwards MD PCP - General Family Medicine 12/10/22 Kelley Carrillo, CLARA Registered Nurse Cardiology 02/11/23 Agustin Snider MD [address] [address] Assigned Heart and Vascular Provider 04/05/23 documented as of this encounter
--- OUTSIDE RECORDS SUMMARY | 2023-11-06 14:12 | XMS_ITS | Encounter Summary ---
Author Name Unknown Organization [place] Address [address] [place] [address] Care Team Providers Care Vrt Mechanic Name Role Phone Slava Edwards MD Primary Care Provider [phone] Dyan Brandt PA-C Unavailable [phone] Kelley Carrillo RN Unavailable Unavaila ble Reason for Visit * Reason Onset Date Comments Orders 02/27/2023 Labs Encounter Details Date Type Department Care Team (Late st Contact Info) Description 02/27/2023 Telephone [facility] [address] [place] [address] [address] [place] [address] Greta Heller PA-C [address] [place], [place] [id number] Orders (Labs ) Social History Tobacco Use Types Packs/Day [...] suspected to have Coronavirus/COVID-19? No / Unsure 02/25/2023 8:18 AM CDT documented as of this encounter Miscellaneous Notes * Telephone Encounter - Idania Pearce RN - 03/03/2023 3:01 PM CDT Called [place] and spoke to , Miesha. We did discuss BMP results. Hen[place] is taking Torsemide 10 mg once daily. I only given him the full tablet whenb his weight goespast 155 lbs. Last given on Friday, 03/01. I did ask her to call [facility] when his eight goes past 155 lbs to review. She expressed understanding Weight today was 155 lbs. SCr 1.14 on 02/27 treaded up to 1.5. BUN 21.7 on 02/27 treaded up to 45 Future Appointments Date Time Provider Department Center 03/28/2023 9:45 AM [email or web address] [facility] 03/28/2023 10:45 AM RU LAB [facility] [place] [facility] 04/01/2023 10:00 AM Agustin Snider MD [facility] LAURA Zayas, RN 3:08 PM 03/03/23 * Telephone Encounter - Idania Pearce RN - 03/03/2023 11:38 AM CDT BMP drawn 02/27/23 in [facility]. Update to LAURA Haji, RN 11:53 AM 03/03/23 * Telephone Encounter - Becka Cruz RN - 02/28/2023 9:27 AM CDT [facility] From OV 02/20/23 Greta Heller PA-C writes: INCREASE Entresto to 49/51 mg twice daily. To finish your current prescription, take two 24/26 mg tablets twice daily. When you pick your new prescription, it will be 1 tablet (49/51) mg twice daily. ?? Take 1 full tablet of torsemide (20 mg) daily until your weight returns to 155 pounds. ?? Plan from today: ?? Labs as scheduled 02/27/2023. Pt had labs done at PCP on 02/27/23. I called PCP today to confirm BMP was collected as results werenot yet available via right fax or Care Everywhere. I spoke to clinic product representative Salome who tells me a BMP was drawn 02/27/23 and she will fax it to our clinic today. Becka Cruz RN, BSN [place], [place] [facility] User Interface Developer February 28, 2023 9:31 AM Future Appointments Date Time Provider Department Center 03/28/2023 9:45 AM [email or web address] [facility] 03/28/2023 10:45 AM RU LAB [facility] [place] [facility] 04/01/2023 10:00 AM Agustin Snider MD [facility] * Telephone Encounter - Becka Cruz RN - 02/27/2023 9:35 AM CDT [facility] Called Henok's spouse Miesha and reviewed that I just sent order for BMP per Greta Heller PA-C post Entresto increase now to [facility]. Additionally, she reports that they have an OV with PCP Slava Edwards next week and concerned he is not able to see recent notes. I called [facility] and spoke to Dr. Edwards's RN Mary. I reviewed that I sent BMP order today. I asked if Dr. Edwards [facility]. She states they do not use [employer] so he has limited access to records. She requests we send most recent OV note from Jocelyn GARZON on 02/20/23. OV note sent now to [facility]. Becka Cruz RN, BSN [place], [place] [facility] User Interface Developer February 27, 2023 9:44 AM Future Appointments Date Time Provider Department Center 03/28/2023 9:45 AM [email or web address] [facility] 03/28/2023 10:45 AM RU LAB [facility] [facility] 04/01/2023 10:00 AM Agustin Snider MD [facility] * Telephone Encounter - Valeria Munguia - 02/27/2023 9:13 AM CDT [facility] Call Center Phone Message May a detailed message be left on voicemail: no Reason for Call: Other: Patient Miesha called and would like the lab orders faxed over to [facility]. Fax number is [phone]. Please send it sonny patient is at the clinic. Action Taken: Other: Cardiology Travel Screening: Not Applicable Thank you! Special[facility] documented in this encounter Plan of Treatment Upcoming Encounters Date Type Department Care Team (Late st Contact Info) Description 04/30/2024 12:30 PM CDT Appointment [facility] [address] [place] [address] [address] [place] [address] Greta Heller PA-C [address] [address] 04/30/2024 1:30 PM CDT Lab [facility] [address] [facility] [address] [place] [address] 05/05/2024 9:00 AM CDT Office Visit [address] [place] [address] Greta Heller PA-C [address] [address] Agustin Snider MD [address] [address] documented as of this encounter Visit Diagnoses Not on filedocumented in this encounter Care Teams Vrt Mechanic Relationship Specialty Start Date End Date Slava Edwards MD PCP - General Family Medicine 12/10/22 Dyan Brandt PA-C [address] [place] [address] Assigned Heart and Vascular Provider 12/28/22 04/04/23 Kelley Carrillo, RN Registered Nurse Cardiology 02/11/23 documented as of this encounter
--- OUTSIDE RECORDS SUMMARY | 2023-11-06 14:12 | XMS_ITS | Encounter Summary ---
Author Name Unknown Organization [place] Address [address] [place] [address] Care Team Providers Care Vehicle Trimmer Name Role Phone Slava Edwards MD Primary Care Provider [phone] Dyan Brandt PA-C Unavailable [phone] Kelley Carrillo RN Unavailable Unavaila Agustin Villasenor MD Unavailable [phone] Reason for Visit * Reason Onset Date Comments Clinic Care Coordination - Follow-up 04/01/2023 Encounter Details Date Type Department Care Team (Late st Contact Info) Description 04/01/2023 [facility] Heart [address] [place] [address] Natalie Bae, RN Clinic Care Coordination - Follow-up Social History Tobacco Use Types Packs/Day Years [...] encounter Miscellaneous Notes * Telephone Encounter - Natalei Bae RN - 04/10/2023 2:05 PM CDT Images from the original note were not included. Will update Dr. Snider. Addendum 04/11/23 - Received respond from Dr. Snider: Agustin Snider MD Hair, Ashley W, RN Caller: Unspecified (1 week ago) Thanks for the update. ??I was not aware of the history of balanitis. ??I agree, then, lets continue his current regimen. Called and spoke with pt's Miesha, consent to communicate on file. Reviewed that we will continue pt's current medications at this time and not add an SGLT2 inhibitor. Miesha verbalized understanding and agreement with plan. * Telephone Encounter - Kelley Carrillo RN - 04/10/2023 1:54 PM CDT Received VM on CORE RN line from CLARA Nathan who is calling from PCP's (Dr. Edwards) office in [facility] (ph: [phone]). Dr. Edwards would NOT recommend starting a SGLT2i as NOT a good candidate d/t age, kidney dz (stable), DM (well controlled), hx of balanitis. Kelley Carrillo RN BSN [facility] [place], [place] [facility] Clinic Cafeteria Helper 04/10/23, 1:54 PM * Telephone Encounter - Natalie Bae RN - 04/01/2023 3:39 PM CDT Images from the original note were not included. Called to [facility] and left message for pt's PCP Dr. Edwards. Left call back number for Team 1. Agustin Snider MD P [facility] Heart Team [address] ami, Patient's PCP Dr. Edwards must be outside of our system. ??Would you be able to reach out to his office and see if he is OK with starting an SGLT2 inhibitor (either Jardiance or Farxiga) and simultaneously cutting back on his glipizide? ??Patient has an upcoming appointment reportedly next week, and they said they are OK discussing with Dr. Edwards then if that works best. Bernadette, Anshul documented in this encounter Plan of Treatment Upcoming Encounters Date Type Department Care Team (Late st Contact Info) Description 04/30/2024 12:30 PM CDT Appointment [facility] Specialty Care [address] [place] [address] [address] [place] [phone] Greta Heller PA-C [address] [address] 04/30/2024 1:30 PM CDT Lab [facility] [address] [facility] [address] [place] [address] 05/05/2024 9:00 AM CDT Office Visit [address] [place] [address] Greta Heller PA-C [address] [address] Agustin Snider MD [address] [address] documented as of this encounter Visit Diagnoses Not on filedocumented in this encounter Care Teams Vehicle Trimmer Relationship Specialty Start Date End Date Slava Edwards MD PCP - General Family Medicine 12/10/22 Dyan Brandt PA-C [address] [id number] Assigned Heart and Vascular Provider 12/28/22 04/04/23 Kelley Carrillo, CLARA Registered Nurse Cardiology 02/11/23 Agustin Snider MD [address] [address] Assigned Heart and Vascular Provider 04/05/23 documented as of this encounter
--- OUTSIDE RECORDS SUMMARY | 2023-11-06 14:12 | XMS_ITS | Encounter Summary ---
Author Name Unknown Organization [place] Address [address] [place] [address]. [place] [address] Care Team Providers Care Certified Nurse Name Role Phone Slava Edwards MD Primary Care Provider [phone] Kelley Carrillo RN Unavailable Unavaila ble Agustin Snider MD Unavailable [phone] Idania Pearce RN Unavailable Unavaila ble Encounter Details Date Type Department Care Team (Late st Contact Info) Description 07/01/2023 MyC Medical Advice [facility] Interventional Radiology [address] [place] [address] Shanta Rubin, CLARA Social History Tobacco Use Types Packs/Day Years [...] Info) Description 04/30/2024 12:30 PM CDT Appointment [facility] [address] [facility] [address] [facility] [address] [address] [place] [address] Greta Heller PA-C [address] [address] 04/30/2024 1:30 PM CDT Lab [facility] [address] [facility] [place] [address] 05/05/2024 9:00 AM CDT Office Visit [address] [place] [address] Greta Heller PA-C [address] [address] Agustin Snider MD [address] [id number] documented as of this encounter Visit Diagnoses Not on filedocumented in this encounter Care Teams Certified Nurse Relationship Specialty Start Date End Date Slava Edwards MD PCP - General Family Medicine 12/10/22 Kelley Carrillo, CLARA Registered Nurse Cardiology 02/11/23 Agustin Snider MD [address] [address] Assigned Heart and Vascular Provider 04/05/23 Idania Pearce, RN Registered Nurse Cardiology 10/30/23 documented as of this encounter
--- OUTSIDE RECORDS SUMMARY | 2023-11-06 14:12 | XMS_ITS | Encounter Summary ---
Author Name Unknown Organization [place] Address [address] [place] [address] Care Team Providers Care Channeling Machine Runner Name Role Phone Slava Edwards MD Primary Care Provider [phone] Dyan Brandt PA-C Unavailable [phone] Kelley Carrillo RN Unavailable Unavaila ble Agustin Snider MD Unavailable [phone] Idania Pearce RN Unavailable Unavaila ble Encounter Details Date Type Department Care Team (Late Contact Info) Description 02/27/2023 External Order Results [facility] [address] [place] [address] Outside, Provider Social History Tobacco Use Types [...] Info) Description 04/30/2024 12:30 PM CDT Appointment [facility] Specialty Care [address] [place] [address] Greta Heller PA-C [address] [address] 04/30/2024 1:30 PM CDT Lab [facility] [address] [place] [address] 05/05/2024 9:00 AM CDT Office Visit [facility] [address] [place] [address] Greta Heller PA-C [address] [address] Agustin Snider MD [address] [address] documented as of this encounter Procedures Procedure Name Priority Date/Time Associated Diagnosis Comments LIPID PROFILE Routine 02/27/2023 9:09 AM CDT BASIC METABOLIC PANEL Routine 02/27/2023 9:09 AM CDT documented in this encounter Results * Lipid Profile (02/27/2023 9:09 AM CDT) Triglycerides (External) 130 40 - 149 mg/dL NON-INTERFACE D (ONBASE SCANS) Cholesterol (External) 120 90 - 199 mg/dL NON-INTERFACE D (ONBASE SCANS) LDL Cholesterol Calculated (External) 65 <100 mg/dL NON-INTERFACE D (ONBASE SCANS) HDL Cholesterol (External) 29 4 - 40 mg/dL NON-INTERFACE D (ONBASE SCANS) Blood BLOOD SPECIMEN / Unknown 02/27/2023 9:09 AM CDT Raffi GUTHRIE PFT - 03/02/2023 6:06 AM CDT Verified by Negro Mota on 03/02/2023. Slava Edwards MD LAB - BLOOD ORDERABL ES Performing Organization Address [facility] Co de Phone Number [place] PFT NON-INTERFACED (ONBASE SCANS) * (ABNORMAL) Basic metabolic panel (02/27/2023 9:09 AM CDT) Sodium (External) 140 135 - 149 mmol/L NON-INTERFACED (ONBASE SCANS) Potassium (External) 5.0 3.6 - 5.1 mmol/L NON-INTERFACED (ONBASE SCANS) Chloride (External) 103 96 - 114 mmol/L NON-INTERFACED (ONBASE SCANS) CO2 (External) 28 20 - 32 mmol/L NON-INTERFACED (ONBASE SCANS) Urea Nitrogen (External) 45(H) 7 - 30 mg/dl NON-INTERFACED (ONBASE SCANS) Creatinine (External) 1.5 0.5 - 1.5 mg/dL NON-INTERFACED (ONBASE SCANS) GFR Estimated (External) 45 mL/min NON-INTERFACED (ONBASE SCANS) Calcium (External) 8.5 8.4 - 10.6 mg/dL NON-INTERFACED (ONBASE SCANS) Glucose (External) 190(H) 60 - 115 mg/dL NON-INTERFACED (ONBASE SCANS) Blood BLOOD SPECIMEN / Unknown 02/27/2023 9:09 AM CDT Narrative [place] PFT - 03/02/2023 6:06 AM CDT Verified by Negro Mota on 03/02/2023. Slava Edwards MD LAB - BLOOD ORDERABL ES Performing Organization Address City/[facility]/ZIP Co de Phone Number [place] PFT NON-INTERFACED (ONBASE SCANS) documented in this encounter Visit Diagnoses Not on filedocumented in this encounter Care Teams Channeling Machine Runner Relationship Specialty Start Date End Date Slava Edwards MD PCP - General Family Medicine 12/10/22 Dyan Brandt PA-C [address] [place] [address] Assigned Heart and Vascular Provider 12/28/22 04/04/23 Kelley Carrillo, RN Registered Nurse Cardiology 02/11/23 Agustin Snider MD [address] [address] Assigned Heart and Vascular Provider 04/05/23 Idania Pearce, RN Registered Nurse Cardiology 10/30/23 documented as of this encounter
--- OUTSIDE RECORDS SUMMARY | 2023-11-06 14:12 | XMS_ITS | Encounter Summary ---
Author Name Unknown Organization [place] Address [address] [place] [address] Care Team Providers Care Party Demonstrator Name Role Phone Slava Edwards MD Primary Care Provider [phone] Kelley Carrillo RN Unavailable Unavaila Agustin Villasenor MD Unavailable [phone] Encounter Details Date Type Department Care Team (Late st Contact Info) Description 04/08/2023 Telephone [facility] [address] [place] [address] Brianna Galindo, RN Social History Tobacco Use Types Packs/Day [...] encounter Miscellaneous Notes * Telephone Encounter - Brianna Galindo RN - 04/08/2023 11:29 AM CDT POST CALL Spoke with: Miesha Steele () Call attempt: 1 Any pain: No Any fever: No Any redness/swelling/ abnormal drainage around puncture site: No Were you instructed well enough to take care of yourself at home: Yes Are you satisfied with the care you received: Yes Any additional concerns or questions: Yes, Miesha explains urine output in PNT bag remains very bloody, additional issues with clogging of catheter with clots when performing urethral catheterization. voiced left a message with primary urology team earlier requesting call back. Solar Energy System Installer additionally sent message to provider expressing Miesha's concerns for patient and to call back patient's home number as soon as possible. IR nurse triage line number provided: No. Referred to Primary care provider with patient's concerns. Post call completed. April 08, 2023 11:29 AM Brianna Galindo, RN documented in this encounter Plan of Treatment Upcoming Encounters Date Type Department Care Team (Late st Contact Info) Description 04/30/2024 12:30 PM CDT Appointment [facility] [address] [place] [address] [address] [place] [address] Greta Heller PA-C [address] [address] 04/30/2024 1:30 PM CDT Lab [facility] [address] [place] [address] [address] [place] [address] 05/05/2024 9:00 AM CDT Office Visit [address] [place] [address] Greta Heller PA-C [address] [address] Agustin Snider MD [address] [address] documented as of this encounter Visit Diagnoses Not on filedocumented in this encounter Care Teams Party Demonstrator Relationship Specialty Start Date End Date Slava Edwards MD PCP - General Family Medicine 12/10/22 Kelley Carrillo, RN Registered Nurse Cardiology 02/11/23 Agustin Snider MD [address] [address] Assigned Heart and Vascular Provider 04/05/23 documented as of this encounter
--- OUTSIDE RECORDS SUMMARY | 2023-11-06 14:12 | XMS_ITS | Encounter Summary ---
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) Procedures Echocardiogram Limited Echocardiogram Complete ZZHC TTE W/DOPPLER, COMPLETE ZZHC ECHO COMPLETE W DOPPLER W CONTRAST ZZHC ECHO COMPLETE W DOPPLER W/O CONTRAST ZZHC IV PUSH SINGLE, INITIAL SUBSTANCE ZZHC US GUIDE FOR PERICARDIOCENTESIS ZZHC ECHO MYOCARD BX ZZC INJECTION, PERFLUTREN LIPID MICROSPHERES, PER ML ZZHC STATISTIC IV PUSH SINGLE INITIAL SUBSTANCE NH ECHO MYOCARD BX NH INJECTION, PERFLUTREN LIPID MICROSPHERES, PER ML NH TTE W/DOPPLER, COMPLETE NH IV PUSH SINGLE, INITIAL SUBSTANCE NH TTE W/DOPPLER, COMPLETE NH TTE W/DOPPLER, COMPLETE HC US GUIDE FOR PERICARDIOCENTESIS HC ECHO MYOCARD BX HC IV PUSH SINGLE, INITIAL SUBSTANCE HC STATISTIC IV PUSH SINGLE INITIAL SUBSTANCE HC ECHO COMPLETE W DOPPLER W CONTRAST HC ECHO COMPLETE W DOPPLER W/O CONTRAST ZZHC ECHO HEART XTHORACIC,LIMITED ZZHC ECHO TRANSTHORACIC, LIMITED W CONTRAST ZZHC ECHO TRANSTHORACIC, LIMITED W/O CONTRAST ZZHC DOPPLER ECHO COLOR FLOW VELOCITY MAP NH ECHO HEART XTHORACIC,LIMITED NH DOPPLER ECHO COLOR FLOW VELOCITY MAP NH ECHO HEART XTHORACIC,LIMITED NH ECHO HEART XTHORACIC,LIMITED HC ECHO TRANSTHORACIC, LIMITED HC DOPPLER ECHO COLOR FLOW VELOCITY MAP HC ECHO TRANSTHORACIC, LIMITED W CONTRAST HC ECHO TRANSTHORACIC, LIMITED W/O CONTRAST Dyan Brandt PA-C [address] [place] [address] Rh Cv [facility]iac S[facility] [id number] [place] [address] Referral ID Status Reason Start Date Expiration Date Visits Re quested Visits Authorized [id number] Closed 12/25/2022 12/25/2023 1 1 Encounter Details Date Type Department Care Team (Latest Contact Info) Description 03/28/2023 9:33 AM CDT - 03/28/2023 11:59 PM CDT Hospital Encounter [facility] [address] [place] [phone] Dyan Brandt PA-C [address] [place], [place] [id number] Nonischemic cardiomyopathy (H); Chronic systolic (congestive) heart failure (H); 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) Discharge Disposition: Home or Self Care Social [...] AM CDT documented as of this encounter Medications at [...] 12/25/2022 11/04/2023 documented as of this encounter Plan of Treatment Upcoming Encounters Date Type Department Care Team (Late st Contact Info) Description 04/30/2024 12:30 PM CDT Appointment [facility] [address] [place] [address] Greta Heller PA-C [address] [address] 04/30/2024 1:30 PM CDT Lab [facility] [address] [place] [phone] 05/05/2024 9:00 AM CDT Office Visit [facility] [id number] [place] [address] [address] [place] [phone] Greta Heller PA-C [address] [place] [address] Agustin Snider MD [address] [place] [address] documented as of this encounter Procedures Procedure Name Priority Date/Time Associated Diagnosis Comments ECHO LIMITED Routine 03/28/2023 10:00 AM CDT Nonischemic cardiomyopathy (H) Chronic systolic (congestive) heart failure (H) 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 Reason For Study: Nonischemic cardiomyopathy (H), Chronic systolic (congestive) he Ordering Physician: DYAN BRANDT Referring Physician: DYAN BRANDT Performed By: Herman Alas RDCS BSA: 1.9 m2 Height: 66 in Weight: 167 lb HR: 64 BP: 130/70 mmHg Procedure Limited Echo Adult. Interpretation Summary The visual ejection fraction is estimated at 45%. Diastolic Doppler findings (E/E' ratio and/or other parameters) suggest left ventricular filling pressures are increased. There is mild global hypokinesia of the left ventricle. The right ventricle is normal in structure, function and size. Mild valvular aortic stenosis. The ascending aorta is Mildly dilated. Compared to prior study, changes are noted. Left Ventricle The left ventricle is normal in size. There is normal left ventricular wall thickness. The visual ejection fraction is estimated at 45%. Diastolic Doppler findings (E/E' ratio and/or other parameters) suggest left ventricular filling pressures are increased. There is mild global hypokinesia of the left ventricle. Right Ventricle The right ventricle is normal in structure, function and size. Mitral Valve There is mild mitral annular calcification. There is trace mitral regurgitation. Aortic Valve The calculated aortic valve are is 2.0 cm^2. The mean AoV pressure gradient is 9.7 mmHg. Mild valvular aortic stenosis. Vessels The ascending aorta is Mildly dilated. Pericardium There is no pericardial effusion. Rhythm Sinus rhythm was noted. MMode/2D Measurements & Calculations asc Aorta Diam: 4.1 cm LVOT diam: 2.0 cm LVOT area: 3.1 cm2 Time Measurements Aortic HR: 62.0 BPM Doppler Measurements & Calculations MV E max jareth: 80.5 cm/sec MV A max jareth: 112.0 cm/sec MV E/A: 0.72 MV max P.7 mmHg MV mean P.5 mmHg MV V2 VTI: 37.0 cm MVA(VTI): 2.6 cm2 MV dec time: 0.23 sec Ao V2 max: 213.3 cm/sec Ao max P.0 mmHg Ao V2 mean: 147.3 cm/sec Ao mean P.7 mmHg Ao V2 VTI: 48.3 cm ANSHU(I,D): 2.0 cm2 ANSHU(V,D): 1.9 cm2 LV V1 max P.7 mmHg LV V1 max: 129.3 cm/sec LV V1 VTI: 31.6 cm CO(LVOT): 6.0 l/min CI(LVOT): 3.2 l/min/m2 SV(LVOT): 96.4 ml SI(LVOT): 52.1 ml/m2 TR max jaerth: 291.8 cm/sec TR max P.1 mmHg AV Jareth Ratio (DI): 0.61 ANSHU Index (cm2/m2): 1.1 E/E' av.0 Lateral E/e': 19.7 Medial E/e': 18.3 Report approved by: Rodrigue Dwyer 03/28/2023 03:34 PM Procedure Note Mike Richardson MD - 03/28/2023 [id number]^LÁZARO^DYAN^Emanuel [facility] Echocardiography Laboratory [address] [place] [address] Name: BLAKE SUTTON : 1935 Study Date: 03/28/2023 09:51 AM Age: 87 yrs Gender: Male Patient Location: [facility] Reason For Study: Nonischemic cardiomyopathy (H), Chronic systolic (congestive) he Ordering Physician: DYAN BRANDT Referring Physician: DYAN BRANDT Performed By: Herman Alas RDCS BSA: 1.9 m2 Height: 66 in Weight: 167 lb HR: 64 BP: 130/70 mmHg Procedure Limited Echo Adult. Interpretation Summary The visual ejection fraction is estimated at 45%. Diastolic Doppler findings (E/E' ratio and/or other parameters) suggestleft ventricular filling pressures are increased. There is mild global hypokinesia of the left ventricle. The right ventricle is normal in structure, function and size. Mild valvular aortic stenosis. The ascending aorta is Mildly dilated. Compared to prior study, changes are noted. Left Ventricle The left ventricle is normal in size. There is normal left ventricularwall thickness. The visual ejection fraction is estimated at 45%. DiastolicDoppler findings (E/E' ratio and/or other parameters) suggest left ventricularfilling pressures are increased. There is mild global hypokinesia of the left ventricle. Right Ventricle The right ventricle is normal in structure, function and size. Mitral Valve There is mild mitral annular calcification. There is trace mitral regurgitation. Aortic Valve The calculated aortic valve are is 2.0 cm^2. The mean AoV pressuregradient is 9.7 mmHg. Mild valvular aortic stenosis. Vessels The ascending aorta is Mildly dilated. Pericardium There is no pericardial effusion. Rhythm Sinus rhythm was noted. MMode/2D Measurements & Calculations asc Aorta Diam: 4.1 cm LVOT diam: 2.0 cm LVOT area: 3.1 cm2 Time Measurements Aortic HR: 62.0 BPM Doppler Measurements & Calculations MV E max jareth: 80.5 cm/sec MV A max jareth: 112.0 cm/sec MV E/A: 0.72 MV max P.7 mmHg MV mean P.5 mmHg MV V2 VTI: 37.0 cm MVA(VTI): 2.6 cm2 MV dec time: 0.23 sec Ao V2 max: 213.3 cm/sec Ao max P.0 mmHg Ao V2 mean: 147.3 cm/sec Ao mean P.7 mmHg Ao V2 VTI: 48.3 cm ANSHU(I,D): 2.0 cm2 ANSHU(V,D): 1.9 cm2 LV V1 max P.7 mmHg LV V1 max: 129.3 cm/sec LV V1 VTI: 31.6 cm CO(LVOT): 6.0 l/min CI(LVOT): 3.2 l/min/m2 SV(LVOT): 96.4 ml SI(LVOT): 52.1 ml/m2 TR max jareth: 291.8 cm/sec TR max P.1 mmHg AV Jareth Ratio (DI): 0.61 ANSHU Index (cm2/m2): 1.1 E/E' av.0 Lateral E/e': 19.7 Medial E/e': 18.3 Report approved by: Rodrigue Dwyer 03/28/2023 03:34 PM Dyan Brandt PA-C CV ECHO ORDERABLES documented in this encounter Visit Diagnoses Diagnosis Nonischemic cardiomyopathy (H) Other primary cardiomyopathies Chronic systolic (congestive) heart failure (H) 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
--- OUTSIDE RECORDS SUMMARY | 2023-11-06 14:12 | XMS_ITS | Encounter Summary ---
Author Name Unknown Organization [place] Address [address] [place] [address] Care Team Providers Care Mask Former Name Role Phone Slava Edwards MD Primary Care Provider [phone] Dyan Brandt PA-C Unavailable [phone] Kelley Carrillo RN Unavailable Unavaila ble Encounter Details Date Type Department Care Team (Late st Contact Info) Description 03/28/2023 10:45 AM CDT [facility] [address] [place] [address] Nonischemic cardiomyopathy (H); Chronic systolic (congestive) heart [...] Info) Description 04/30/2024 12:30 PM CDT Appointment [facility] [address] [facility] [address] [facility] [address] [place] [address] Greta Heller PA-C [address] [address] 04/30/2024 1:30 PM CDT Lab [facility] [address] [place] [address] 05/05/2024 9:00 AM CDT Office Visit [facility] [address] [place] [address] [address] [place] [address] Greta Heller PA-C [address] [address] Agustin Snider MD [address] [place] [address] documented as of this encounter Procedures Procedure Name Priority Date/Time Associated Diagnosis Comments N TERMINAL PRO BNP OUTPATIENT Routine 03/28/2023 10:02 AM CDT Nonischemic cardiomyopathy (H) Chronic systolic (congestive) heart failure (H) 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) BASIC METABOLIC PANEL Routine 03/28/2023 10:02 AM CDT Nonischemic cardiomyopathy (H) Chronic systolic (congestive) heart failure (H) 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) documented in this encounter Results * (ABNORMAL) N terminal pro BNP outpatient (03/28/2023 10:02 AM CDT) [facility] N Terminal Pro BNP Outpatient 2,595(H) 0 - 1,800 pg/mL 03/28/2023 10:48 AM CDT LABORATORY Comment: Reference range shown and results [...] 99% negative predictive value. Blood STRUCTURE OF RIGHT UPPER LIMB / Unknown Venipuncture / Unknown 03/28/2023 10:02 AM CDT 03/28/2023 10:06 AM CDT Dyan Brandt PA-C LAB - BLOOD ORDERABL ES LABORATORY [facility] [address] [facility] Lab (1st floor, no room number) [place] [address], [facility] [phone] * (ABNORMAL) Basic metabolic panel (03/28/2023 10:02 AM CDT) Sodium 136 136 - 145 mmol/L 03/28/2023 10:36 AM CDT LABORATORY Potassium 5.1 3.4 - 5.3 mmol/L 03/28/2023 10:36 AM CDT LABORATORY Chloride 104 98 - 107 mmol/L 03/28/2023 10:36 AM CDT LABORATORY Carbon Dioxide (CO2) 25 22 - 29 mmol/L 03/28/2023 10:36 AM CDT LABORATORY Anion Gap 7 7 - 15 mmol/L 03/28/2023 10:36 AM CDT LABORATORY Urea Nitrogen 20.1 8.0 - 23.0 mg/dL 03/28/2023 10:36 AM CDT LABORATORY Creatinine 1.00 0.67 - 1.17 mg/dL 03/28/2023 10:36 AM CDT LABORATORY Calcium 8.4(L) 8.8 - 10.2 mg/dL 03/28/2023 10:36 AM CDT LABORATORY Glucose 261(H) 70 - 99 mg/dL 03/28/2023 10:36 AM CDT LABORATORY GFR Estimate 74 >60 mL/min/1.7 3m2 03/28/2023 10:36 AM CDT LABORATORY Comment:eGFR calculated 2020 CKD-EPI equation. 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
--- OUTSIDE RECORDS SUMMARY | 2023-11-06 14:12 | XMS_ITS | Encounter Summary ---
Author Name Unknown Organization [place] Address [address] [place] [address] Care Team Providers Care Geometry Professor Name Role Phone Slava Edwards MD Primary Care Provider [phone] Dyan Brandt PA-C Unavailable [phone] Kelley Carrillo RN Unavailable Unavaila ble Encounter Details Date Type Department Care Team (Latest Contact Info) Description 03/28/2023 Travel Social History Tobacco Use Types Packs/Day [...] Info) Description 04/30/2024 12:30 PM CDT Appointment [facility] [address] [facility] [address] [place] [address] Greta Heller PA-C [address] [facility] [address] [place] [id number] 04/30/2024 1:30 PM CDT Lab [facility] [address] [facility] [address] [place] [phone] 05/05/2024 9:00 AM CDT Office Visit [address] [place] [address] Greta Heller PA-C [address] [place] [address] Agustin Snider MD [address] [place] [id number] documented as of this encounter Visit Diagnoses Not on filedocumented in this encounter Care Teams Geometry Professor Relationship Specialty Start Date End Date Slava Edwards MD PCP - General Family Medicine 12/10/22 Dyan Brandt PA-C [address] [place] [address] Assigned Heart and Vascular Provider 12/28/22 04/04/23 Kelley Carrillo, CLARA Registered Nurse Cardiology 02/11/23 documented as of this encounter
--- OUTSIDE RECORDS SUMMARY | 2023-11-06 14:12 | XMS_ITS | Encounter Summary ---
Author Name Unknown Organization [facility] Address [address] [place] [address] Care Team Providers Care Reservoir Engineering Manager Name Role Phone Slava Edwards MD Primary Care Provider [phone] Dyan Brandt PA-C Unavailable [phone] Kelley Carrillo RN Unavailable Unavaila ble Reason for Referral * Consultation (Routine: Next available opening) - Pending Review Specialty Diagnoses / Procedures Referred By Contac t Referred To Contact Cardiovascular Disease Diagnoses 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) Agustin Snider MD [address] [place] [address] Referral ID Status Reason Start Date Expiration Date V isits Requested Visits Authorized [id number] Pending Review 04/01/2023 03/31/2024 1 1 Question Answer Follow-up with: [facility] Scheduling Instructions: [facility] will call you to coordinate your care as prescribed by your provider. If you have concerns about scheduling, please call [phone]. Comments [facility] will call you to coordinate your care as prescribed by your provider. If you have concerns about scheduling, please call [phone]. Reason for Visit * Reason Comments New Patient * Consultation (Routine) - Pending Review Specialty Diagnoses / Procedures Referred By Contac t Referred To Contact Cardiovascular Disease Diagnoses Nonischemic cardiomyopathy (H) Chronic systolic (congestive) heart failure (H) 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) Dyan Brandt PA-C [address] [place] [address] Referral ID Status Reason Start Date Expiration Date V isits Requested Visits Authorized [id number] Pending Review 12/25/2022 12/25/2023 1 1 Encounter Details Date Type Department Care Team (Latest Contact Info) Description 04/01/2023 10:00 AM CDT Office Visit [address] [place] [phone] Dyan Brandt PA-C [address] [place], [place] [id number] Agustin Snider MD [address] [place], [place] [address] Coronary artery disease involving [place] coronary artery of [place] heart without angina pectoris (Primary Dx); 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); Nonischemic cardiomyopathy (H); Mixed hyperlipidemia Social History Tobacco Use Types Packs/Day Years [...] Sign Reading Time Taken Comments Blood Pressure 99/38 04/01/2023 9:53 AM CDT Pulse 71 04/01/2023 9:53 AM CDT Temperature - - Respiratory Rate - - Oxygen Saturation 88% 04/01/2023 9:53 AM CDT Inhaled Oxygen Concentration - - Weight 73 kg (161 lb) 04/01/2023 9:53 AM CDT Height 168.9 cm (5' 6.5) 04/01/2023 9:53 AM CDT Body Mass Index 25.6 04/01/2023 9:53 AM CDT documented in this encounter Progress Notes * Agustin Snider MD - 04/01/2023 10:00 AM CDT CARDIOLOGY CLINIC CONSULTATION REASON FOR CONSULT: Nonischemic cardiomyopathy, HFrEF PRIMARY CARE PHYSICIAN: Slava Edwards History of Present Illness Henok Chery is an extremely pleasant 87 year old male here as a new patient to establish care. He has been seen in the [facility] clinic by Dyan Brandt PA-C and Greta Heller PA-C. He has an extensive medical history which is well described in their excellent notes, but briefly: Henok has HF with partially recovered EF (LVEF nain ~ 24% on 01/2022 CMR, up to ~ 40% on 03/2023 TTE), NICM, frequent multifocal PVC's (17% burden on 07/2022 Ziopatch; not good candidate for ablation), mild-moderate non-obstructive CAD, CKD, DM2, HTN, HLD, polycythemia vera, and bladder cancer s/p nephrostomy tube and XRT. Since his last visit to [facility] clinic on 02/20/2023, he reports (and his family confirms) that he is overall doing well. No chest pains, excessive dyspnea, or LE swelling. His family weighs him daily, and he has been consistently ~ 150 lbs on their scale. He has had some LH recently, so they actually held his diuretics the past week, and only after a salty meal last night did he actually develop a bit of edema (and thus he took a 1/2 tablet of torsemide (10 mg)). Today, I reviewed his most recent BMP, lipid panel, and CBC. I also reviewed the reports of his most recent TTE, his 01/2022 CMR, and his 07/2022 Ziopatch. Assessment & Plan 1. HF with partially recovered EF (LVEF nain ~ 24% on 01/2022 CMR, up to ~ 40% on 03/2023 TTE), euvolemic, NYHA II-III 2. NICM 3. Frequent multifocal PVC's (17% burden on 07/2022 Ziopatch; not good candidate for ablation) 4. Mild-moderate non-obstructive CAD, currently CCS 0 angina 5. CKD 2 6. NIDDM2 7. HTN 8. HLD 9. Polycythemia vera 10. Anemia 11. Bladder cancer s/p nephrostomy tube and XRT It was a pleasure to speak with Henok and his family in clinic today. I am glad to hear that he is feeling well, and it is great to see that his LVEF continues to gradually improve with GDMT. Understandably, given his frailty and the numerous medications he requires for his other conditions, his family is nervous about any further additions or dose-increases to his regimen. Given his low BP and light-headedness, I would not recommend increasing his Entresto or Toprol, and would not want to start spironolactone. I also think that PRN dosing would be best for now for his torsemide, as they are doing an excellent job with daily weights. The one addition I would suggest would be the addition of an SGLT2 inhibitor. His family is understandably concerned about the risk of hypoglycemia. While this is a concern, I think that a good approach may be to start an SGLT2 inhibitor and simultaneously decrease the dose of his glipizide. While I cannot guarantee that this will not cause an issue, this approach is generally well tolerated and there is now substantial evidence supporting SGLT2 inhibitors in patients such as Henok. I will reach out to his PCP, Dr. Edwards, and discuss this with him, and if he feels comfortable, we will then have the pharmacy liaison look into pricing for them, as this is another very reasonable concern. For now, we will continue his current medications unchanged. -Will message Dr. Edwards re: SGLT2 inhibitor as above -Continue Toprol XL 12.5 mg daily -Continue Entresto 49-51 mg daily -Torsemide 10-20 mg PRN for weight gain > 3 lbs. -Continue aspirin 81 mg daily -Could consider iron studies at future visit Follow-up: 3 months with [facility], or sooner PRN On the date of the patient's visit, I spent a total of 75 minutes reviewing the patient's chart; interviewing, examining, and counseling the patient; coordinating with other providers as necessary, entering orders, and documenting in the medical chart. Agustin Snider MD Interventional Cardiology April 01, 2023 Medications Current Outpatient Medications Medication ??? aspirin (ASA) 81 MG EC tablet ??? buPROPion (WELLBUTRIN XL) 300 MG 24 hr tablet ??? doxycycline monohydrate (ADOXA) 100 MG tablet ??? ferrous gluconate (FERGON) 324 (38 Fe) MG tablet ??? finasteride (PROSCAR) 5 MG tablet ??? glipiZIDE (GLUCOTROL) 10 MG tablet ??? hydroxyurea (HYDREA) 500 MG capsule ??? levothyroxine (SYNTHROID/LEVOTHROID) 175 MCG tablet ??? metoprolol succinate ER (TOPROL XL) 25 MG 24 hr tablet ??? omeprazole (PRILOSEC OTC) 20 MG EC tablet ??? sacubitril-valsartan (ENTRESTO) 49-51 MG per tablet ??? tamsulosin (FLOMAX) 0.4 MG capsule ??? torsemide (DEMADEX) 20 MG tablet ??? vitamin D3 (CHOLECALCIFEROL) 50 mcg (2000 units) tablet No current facility-administered medications for this visit. Allergies Allergies Allergen Reactions ??? Beta Adrenergic Blockers Other (See Comments) Other reaction(s): Bradycardia Bradycardia ??? Penicillins Physical Exam BP: (!) 99/38 Pulse: 71 SpO2: (!) 88 % Vital Signs with Ranges Pulse: [71] 71 BP: (99)/(38) 99/38 SpO2: [88 %] 88 % 161 lbs 0 oz Constitutional: NAD Respiratory: Normal respiratory effort, CTAB Cardiovascular: RRR, no obvious m/r/g. JVP < 7 cm H2O. There is no LE edema. Normal carotid upstrokes, no carotid bruits. documented in this encounter Plan of Treatment Upcoming Encounters Date Type Department Care Team (Late st Contact Info) Description 04/30/2024 12:30 PM CDT Appointment [facility] [id number] [place] [address] [address] [place] [address] Greta Heller PA-C [address] [address] 04/30/2024 1:30 PM CDT Lab [facility] [address] [place] [address] 05/05/2024 9:00 AM CDT Office Visit [facility] [address] [facility] [address] [place] [address] Greta Heller PA-C [address] [place] [address] Agustin Snider MD [address] [id number] Scheduled Referrals Name Type Priority Associated Diagnoses Orde r Schedule Follow-Up with Cardiology [facility] Referral Routine: Next available opening 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) Expected: 07/02/2023 (Approximate), Expires: 04/01/2024 documented as of this encounter Visit Diagnoses Diagnosis Coronary artery disease involving [place] coronary artery of [place] heart without angina pectoris- Primary 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) Nonischemic cardiomyopathy (H) Other primary cardiomyopathies Mixed hyperlipidemia documented in this encounter Care Teams Reservoir Engineering Manager Relationship Specialty Start Date End Date Slava Edwards MD PCP - General Family Medicine 12/10/22 Dyan Brandt PA-C [address] [place] [address] Assigned Heart and Vascular Provider 12/28/22 04/04/23 Kelley Carrillo, RN Registered Nurse Cardiology 02/11/23 documented as of this encounter
--- OUTSIDE RECORDS SUMMARY | 2023-11-06 14:12 | XMS_ITS | Encounter Summary ---
Author Name Unknown Organization [facility] Address [address] [place] [address] Care Team Providers Care Field Merchandiser Name Role Phone Slava Edwards MD Primary Care Provider [phone] Kelley Carrillo RN Unavailable Unavaila Agustin Villasenor MD Unavailable [phone] Reason for Visit * Reason Onset Date Comments [facility] 04/09/2023 Aspirin Encounter Details Date Type Department Care Team (Late st Contact Info) Description 04/09/2023 [facility] [address] [place] [address] Becka Cruz RN [facility] (Aspirin) Social History Tobacco Use Types Packs/Day Years [...] Encounter - Kelley Carrillo RN - 04/10/2023 1:42 PM CDT [facility] Received VM on [facility] RN line from CLARA Nathan who is calling from PCP's (Dr. Edwards) office in [facility] (ph: [phone]). Dr. Edwards would NOT recommend starting a SGLT2i as NOT a good candidate d/t age, kidney dz (stable), DM (well controlled), hx of balanitis. Kelley Carrillo RN BSN [place], [place] [facility] Clinic Pipe Supervisor 04/10/23, 1:52 PM * Telephone Encounter - Becka Cruz RN - 04/09/2023 9:37 AM CDT [facility] Called Miesha and reviewed Dr. Snider's reply Okay with me to hold baby aspirin as long as needed for the bleeding to resolve. Thanks. She expresses understanding, noting that she held this morning's aspirin dose for Henok. They are currently on their way to the ER. She asked that since Henok's most recent EF is 45%, is he safe to be sedated if needed? I reviewed that his appropriateness for sedation will need to be determined by inpatient providers as we cannotadvise on this from an outpatient setting. She expresses understanding with no further questions. Becka Cruz RN, BSN [place], [place] [facility] Clinic Pipe Supervisor April 09, 2023 9:40 AM * Telephone Encounter - Becka Cruz RN - 04/09/2023 8:31 AM CDT [facility] Received VM this morning from patient's stating that patient Is having a bleeding issue w/ his kidney/ bladder bag. They were advised to go to ER by another provider but told to check with cardiology to see if OK to hold aspirin x 3 days. They are requesting call back as soon as able. Chart Review: 04/01/[address] Snider: -Will message Dr. Edwards re: SGLT2 inhibitor as above -Continue Toprol XL 12.5 mg daily -Continue Entresto 49-51 mg daily -Torsemide 10-20 mg PRN for weight gain > 3 lbs. -Continue aspirin 81 mg daily -Could consider iron studies at future visit Will route to Greta and Dr. Snider for response. Becka Cruz, RN, BSN [place], [place] [facility] Pipe Supervisor April 09, 2023 8:37 AM Future Appointments Date Time Provider Department Center 07/07/2023 10:00 AM Greta Heller PA-C [facility] documented in this encounter Plan of Treatment Upcoming Encounters Date Type Department Care Team (Late st Contact Info) Description 04/30/2024 12:30 PM CDT Appointment [facility] [id number] [place] [address] [address] [place] [address] Greta Heller PA-C [address] [address] 04/30/2024 1:30 PM CDT Lab [facility] [address] [facility] [address] [place] [address] 05/05/2024 9:00 AM CDT Office Visit [address] [place] [address] Greta Heller PA-C [address] [address] Agustin Snider MD [address] [address] documented as of this encounter Visit Diagnoses Not on filedocumented in this encounter Care Teams Field Merchandiser Relationship Specialty Start Date End Date Slava Edwards MD PCP - General Family Medicine 12/10/22 Kelley Carrillo, CLARA Registered Nurse Cardiology 02/11/23 Agustin Snider MD [address] [address] Assigned Heart and Vascular Provider 04/05/23 documented as of this encounter
--- OUTSIDE RECORDS SUMMARY | 2023-11-06 14:13 | XMS_ITS | Encounter Summary ---
Author Name Unknown Organization [facility] Address [address] [place] [address] Care Team Providers Care Design Sales Consultant Name Role Phone Slava Edwards MD Primary Care Provider [phone] Dyan Brandt PA-C Unavailable [phone] Encounter Details Date Type Department Care Team (Latest Contact Info) Description 01/09/2023 Travel Social History Tobacco Use Types Packs/Day [...] suspected to have Coronavirus/COVID-19? No / Unsure 01/09/2023 1:18 PM CDT documented as of this encounter Plan of Treatment Upcoming Encounters Date Type Department Care Team (Late st Contact Info) Description 04/30/2024 12:30 PM CDT Appointment [facility] [address] [facility] [address] [place] [address] Greta Heller PA-C [address] [address] 04/30/2024 1:30 PM CDT Lab [facility] [address] [place] [address] 05/05/2024 9:00 AM CDT Office Visit [facility] [address] [facility] [address] [place] [phone] Greta Heller PA-C [address] [address] Agustin Snider MD [address] [address] documented as of this encounter Visit Diagnoses Not on filedocumented in this encounter Care Teams Design Sales Consultant Relationship Specialty Start Date End Date Slava Edwards MD PCP - General Family Medicine 12/10/22 Dyan Brandt PA-C [address] [place] [address] Assigned Heart and Vascular Provider 12/28/22 04/04/23 documented as of this encounter
--- OUTSIDE RECORDS SUMMARY | 2023-11-06 14:13 | XMS_ITS | Encounter Summary ---
Author Name Unknown Organization [facility] Address [address] [place] [address] Care Team Providers Care Consulting Sales Manager Name Role Phone Slava Edwards MD Primary Care Provider [phone] Dyan Brandt PA-C Unavailable [phone] Reason for Visit * Reason Comments [facility] [employer] pt assistan ce Encounter Details Date Type Department Care Team (Latest Contact Info) Description 01/09/2023 Care Coord[address] [place] [address] Becka Cruz, RN [facility] ([employer] pt assistance) Social History Tobacco Use Types Packs/Day Years [...] PM CDT documented as of this encounter Progress Notes * Becka Brown, RN - 01/09/2023 3:07 PM CDT [facility] Met with Henok and Miesha following Greta Heller PA-C OV today 01/09/23 to discuss Entresto Pt Assistance. They are unsure at this time if they qualify as they are not sure on income. They plan to go home and check and call [facility] RN line back with income result. I sent them home with pt portion of [employer] Application to be completed if income meets requirements. Provider portion will be completed pending income notification. Becka Cruz RN, BSN [place], [place] [facility] Clinic Vacuum Technician January 09, 2023 3:14 PM Future Appointments Date Time Provider Department Center 02/20/2023 12:15 PM RU LAB [facility] 02/20/2023 1:10 PM Greta Heller PA-C [facility] 03/28/2023 9:45 AM [email or web address] [facility] 03/28/2023 10:45 AM RU LAB [facility] 04/01/2023 10:00 AM Agustin Snider MD [facility] * Idania Pearce RN - 01/09/2023 3:07 PM CDT Spoke to Miesha to see if the know their income and if they want to apply for Entresto. Miesha states they will not qualify as they made too much last year, we will be able to next year. Future Appointments Date Time Provider Department Center 02/20/2023 12:15 PM [facility] 02/20/2023 1:10 PM Greta Heller PA-C [facility] 03/28/2023 9:45 AM [email or web address] [facility] 03/28/2023 10:45 AM RU LAB [facility] 04/01/2023 10:00 AM Agustin Snider MD [facility] LAURA Zayas, RN 11:54 AM 01/15/23 documented in this encounter Plan of Treatment Upcoming Encounters Date Type Department Care Team (Late st Contact Info) Description 04/30/2024 12:30 PM CDT Appointment [facility] [address] [facility] [address] [place] [address] Greta Heller PA-C [address] [address] 04/30/2024 1:30 PM CDT Lab [facility] [address] [facility] [address] [place] [address] 05/05/2024 9:00 AM CDT Office Visit [facility] [address] [facility] [address] [place] [address] Greta Heller PA-C [address] [address] Agustin Snider MD [address] [place] [address] documented as of this encounter Visit Diagnoses Not on filedocumented in this encounter Care Teams Consulting Sales Manager Relationship Specialty Start Date End Date Slava Edwards MD PCP - General Family Medicine 12/10/22 Dyan Brandt PA-C [address] [place] [address] Assigned Heart and Vascular Provider 12/28/22 04/04/23 documented as of this encounter
--- OUTSIDE RECORDS SUMMARY | 2023-11-06 14:13 | XMS_ITS | Encounter Summary ---
Author Name Unknown Organization [facility] Address [address] [place] [address] Care Team Providers Care Pmo Consultant Name Role Phone Slvaa Edwards MD Primary Care Provider [phone] Dyan Brandt PA-C Unavailable [phone] Kelley Carrillo RN Unavailable Unavaila ble Encounter Details Date Type Department Care Team (Latest Contact Info) Description 02/25/2023 8:19 AM CDT - 02/25/2023 10:11 AM CDT Hospital Encounter [facility] [address] [place] [address] Herman Rios MD [facility] [address] [place] [address] Shelley Gutierrez DO [facility] [address] [facility] [address] [place] [address] Unilateral hydronephrosis Discharge Disposition: Home or Self [...] Sign Reading Time Taken Comments Blood Pressure 113/56 02/25/2023 8:33 AM CDT Pulse 40 02/25/2023 8:33 AM CDT Temperature 36.4 ??C (97.6 ??F) 02/25/2023 8:33 AM CD T Respiratory Rate 28 02/25/2023 9:48 AM CDT Oxygen Saturation 96% 02/25/2023 9:48 AM CDT Inhaled Oxygen Concentration - - Weight - - Height - - Body Mass Index - - documented in this encounter Discharge Instructions * Discharge Instructions* Bessie iVllela RN - 02/25/2023 10:04 AM CDT Images from the original note [...] Nausea and vomiting New or worsening symptoms Miguel Ángel last reviewed this educational content on 01/19/2020 ?? [id number] The [employer], [employer]. All rights reserved. This information is not intended as a substitute for professional medical care. Always follow your healthcare professional's instructions. documented in this encounter Medications at Time [...] as of this encounter Progress Notes * Bessie Villela RN - 02/25/2023 10:08 AM CDT Patient discharged home accompanied by and professional healthcare representative. Discharge instructions given, no questions (continued care). Bessie Villela RN * Bessie Villela RN - 02/25/2023 9:48 AM CDT Neph tube exchange - Left side - no sedation planned. Lido at site, antibiotic given intraprocedure. documented in this encounter Plan of Treatment Upcoming Encounters Date Type Department Care Team (Late st Contact Info) Description 04/30/2024 12:30 PM CDT Appointment [facility] Specialty Care [address] [place] [address] [place] [address] Greta Heller PA-C [address] [address] 04/30/2024 1:30 PM CDT Lab [facility] Heart [facility] [address] [place] [facility] [address] [place] [address] 05/05/2024 9:00 AM CDT Office Visit [facility] [address] [facility] [address] [place] [address] Greta Heller PA-C [address] [address] Agustin Snider MD [address] [address] documented as of this encounter Procedures Procedure Name Priority Date/Time Associated Diagnosis Comments IR NEPHROSTOMY TUBE CHANGE LEFT Routine: Next available opening 02/25/2023 10:00 AM CDT Unilateral hydronephrosis documented in this encounter Results * IR Nephrostomy Tube Change Left (02/25/2023 10:00 AM CDT) Anatomical Region Laterality Modality Abdomen/Pelvis Radio Fluoroscop y, Radio Fluoroscopy Impressions 02/25/2023 12:45 PM CDT IMPRESSION: Successful exchange of left 12 Turkmen nephrostomy tube, as detailed above Plan: ??The patient is to follow up in three months for routine nephrostomy catheter maintenance. SHELLEY GUTIERREZ DO Narrative 02/25/2023 12:45 PM CDT PROCEDURE(S): 1. Left antegrade nephrostogram 2. Left percutaneous nephrostomy tube exchange DATE OF PROCEDURE: 02/25/2023. MEDICATIONS: 1% lidocaine and 900 mg clindamycin IV. CONTRAST: 10 mL Visipaque 300 into the renal collecting system FLUOROSCOPY TIME: 0.2 minutes. AIR KERMA: ??8 mGy. COMPLICATIONS: None. CLINICAL HISTORY/INDICATION: Left hydronephrosis [...] was used for local anesthetic. A preliminary patriot missile air defense artillery radiograph was performed and demonstrates a locking loop catheter in the left flank. Contrast was injected through the indwelling {<left right>] nephrostomy tube. Routine antegrade nephrostogram demonstrates the pigtail is centered in the renal pelvis. The catheter retention suture was cut and a 0.035 guidewire was advanced into and coiled within the renal pelvis. The indwelling nephrostomy tube was then exchanged over the wire for a new 12 Turkmen nephrostomy tube, and its tip was coiled [...] radiology in stable condition. Procedure Note Shelley Gutierrez, DO - 02/25/2023 PROCEDURE(S): 1. Left antegrade nephrostogram 2. Left percutaneous nephrostomy tube exchange DATE OF PROCEDURE: 02/25/2023. MEDICATIONS: 1% lidocaine and 900 mg clindamycin IV. CONTRAST: 10 mL Visipaque 300 into the renal collecting system FLUOROSCOPY TIME: 0.2 minutes. AIR KERMA: 8 mGy. COMPLICATIONS: None. CLINICAL HISTORY/INDICATION: Left hydronephrosis [...] was used for local anesthetic. A preliminary patriot missile air defense artillery radiograph was performed and demonstrates a locking loop catheter in the left flank. Contrast was injected through the indwelling {<left right>] nephrostomy tube. Routine antegrade nephrostogram demonstrates the pigtail is centered in the renal pelvis. The catheter retention suture was cut and a 0.035 guidewire was advanced into and coiled within the renal pelvis. The indwelling nephrostomy tube was then exchanged over the wire for a new 12 Turkmen nephrostomy tube, and its tip was coiled [...] condition. IMPRESSION: Successful exchange of left 12 Turkmen nephrostomy tube, as detailed above Plan: The patient is to follow up in three months for routine nephrostomy catheter maintenance. SHELLEY GUTIERREZ DO Herman Rios MD IMG IR ORDERABLES documented in this encounter Visit Diagnoses Diagnosis Unilateral hydronephrosis Hydronephrosis documented in this encounter Administered Medications Inactive Administered Medications - up to 3 most recent administrations Medication Order MAR Action Action Date Dose Rate Site clindamycin (CLEOCIN) 900 mg in 50 mL D5W intermittent infusion Routine, 900 mg, Intravenous, ONCE, On Fri02/25/23 at 1000, For 1 dose, Indications: Perioperative Pharmacoprophylaxis $New Bag 02/25/2023 9:44 AM CDT 900 mg 100 mL/hr clindamycin (CLEOCIN) 900 MG/50ML in 50 mL D5W intermittent infusion Starting on Fri02/25/23 at 0940, For 1 dose, Mak Cody: cabinet override lidocaine (PF) (XYLOCAINE) 1 % injection Starting on Fri02/25/23 at 0937, For 1 dose, Bessie Villela: cabinet override lidocaine 1 % 1-30 mL 1-30 mL, Intradermal, ONCE PRN, local anesthetic. When verbally ordered by prescriber during the procedure., Starting on Fri02/25/23 at 0820, For 1 dose, Dose to be divided into smaller volumes appropriate for the procedure. Provider to administer intradermally. Dose to be divided into smaller volumes appropriate for the procedure., IR Intra-procedure $Given by Other 02/25/2023 9:51 AM CDT 4 mLs sodium chloride (PF) 0.9% PF flush 3 mL 3 mL, Intracatheter, EVERY 8 HOURS, First dose on Fri02/25/23 at 0830, to lock peripheral IV dormant line, IR Pre-procedure $Given 02/25/2023 9:33 AM CDT 5 mLs sodium chloride (PF) 0.9% PF flush 3 mL 3 mL, Intracatheter, EVERY 1 MIN PRN, line flush, other, to ensure patency or to lock dormant line, Starting on Fri02/25/23 at 0820, IR Pre-procedure sodium chloride 0.9 % bag TABLE SOLN 1 Bag, TABLE SOLN, CONTINUOUS PRN, other, Catheter prep table solution use as directed by provider., Starting on Fri02/25/23 at 0820, For 5 doses, Maximum total dose 5000 mL Nurse will document number of bags used at the end of the procedure. NOT A PRESSURE BAG, IR Intra-procedure documented in this encounter Active and Recently Administered Medications Times are shown in CDT. Scheduled Medication Order 02/23/2023 02/24/2023 02/25/2023 clindamycin (CLEOCIN) 900 mg in 50 mL D5W intermittent infusion (COMPLETED) Routine, 900 mg, Intravenous, ONCE, On Fri02/25/23 at 1000, For 1 dose, Indications: Perioperative Pharmacoprophylaxis 0944 ($New Bag - Pro vider: Bessie Villela RN)1000 (Stopped - Provider: Bessie Villela RN) sodium chloride (PF) 0.9% PF flush 3 mL 3 mL, Intracatheter, EVERY 8 HOURS, First dose on Fri02/25/23 at 0830, to lock peripheral IV dormant line, IR Pre-procedure 0933 ($Given - Provi nidhi: Bessie Villela RN) PRN Medication Order 02/23/2023 02/24/2023 02/25/2023 lidocaine 1 % 1-30 mL (COMPLETED) 1-30 mL, Intradermal, ONCE PRN, local anesthetic. When verbally ordered by prescriber during the procedure., Starting on Fri02/25/23 at 0820, For 1 dose, Dose to be divided into smaller volumes appropriate for the procedure. Provider to administer intradermally. Dose to be divided into smaller volumes appropriate for the procedure., IR Intra-procedure 0951 ($Given by Othe r - Provider: Bessie Villela RN - Comment: left flank area) sodium chloride (PF) 0.9% PF flush 3 mL 3 mL, Intracatheter, EVERY 1 MIN PRN, line flush, other, to ensure patency or to lock dormant line, Starting on Fri02/25/23 at 0820, IR Pre-procedure sodium chloride 0.9 % bag TABLE SOLN 1 Bag, TABLE SOLN, CONTINUOUS PRN, other, Catheter prep table solution use as directed by provider., Starting on Fri02/25/23 at 0820, For 5 doses, Maximum total dose 5000 mL Nurse will document number of bags used at the end of the procedure. NOT A PRESSURE BAG, IR Intra-procedure documented in this encounter Care Teams Pmo Consultant Relationship Specialty Start Date End Date Slava Edwards MD PCP - General Family Medicine 12/10/22 Dyan Brandt PA-C [address] [place] [address] Assigned Heart and Vascular Provider 12/28/22 04/04/23 Kelley Carrillo, CLARA Registered Nurse Cardiology 02/11/23 documented as of this encounter
--- OUTSIDE RECORDS SUMMARY | 2023-11-06 14:13 | XMS_ITS | Encounter Summary ---
Author Name Unknown Organization [facility] Address [address] [place] [address] Care Team Providers Care Trumpet Teacher Name Role Phone Slava Edwards MD Primary Care Provider [phone] Dyan Brandt PA-C Unavailable [phone] Kelley Carrillo RN Unavailable Unavaila ble Encounter Details Date Type Department Care Team (Late st Contact Info) Description 02/20/2023 12:15 PM CDT [facility] Heart [address] [place] [address] Nonischemic cardiomyopathy (H); Chronic systolic [...] suspected to have Coronavirus/COVID-19? No / Unsure 02/20/2023 11:45 AM CDT documented as of this encounter Plan of Treatment Upcoming Encounters Date Type Department Care Team (Late st Contact Info) Description 04/30/2024 12:30 PM CDT Appointment [facility] Specialty Care [address] [facility] [address] [place] [address] Greta Heller PA-C [address] [place] [address] 04/30/2024 1:30 PM CDT Lab [facility] [address] [facility] [address] [place] [address] 05/05/2024 9:00 AM CDT Office Visit [facility] [address] [place] [address] [address] [place] [phone] Greta Heller PA-C [address] [address] Agustin Snider MD [address] [place] [address] documented as of this encounter Procedures Procedure Name Priority Date/Time Associated Diagnosis Comments N TERMINAL PRO BNP OUTPATIENT Routine 02/20/2023 11:50 AM CDT Nonischemic cardiomyopathy (H) Chronic systolic (congestive) heart failure (H) 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) BASIC METABOLIC PANEL Routine 02/20/2023 11:50 AM CDT Nonischemic cardiomyopathy (H) Chronic systolic (congestive) heart failure (H) 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) documented in this encounter Results * (ABNORMAL) N terminal pro BNP outpatient (02/20/2023 11:50 AM CDT) [facility] N Terminal Pro BNP Outpatient 9,402(H) 0 - 1,800 pg/mL 02/20/2023 12:42 PM CDT LABORATORY Comment: Reference range shown and [...] UPPER LIMB / Unknown Venipuncture / Unknown 02/20/2023 11:50 AM CDT 02/20/2023 11:50 AM CDT Greta Heller PA-C LAB - BLOOD ORDERABL ES LABORATORY [facility] Acute Care Lab [address] Lab (1st floor, no room number) [place] [address], [facility] [phone] * (ABNORMAL) Basic metabolic panel (02/20/2023 11:50 AM CDT) Sodium 136 136 - 145 mmol/L 02/20/2023 12:40 PM CDT LABORATORY Potassium 4.5 3.4 - 5.3 mmol/L 02/20/2023 12:40 PM CDT LABORATORY Chloride 103 98 - 107 mmol/L 02/20/2023 12:40 PM CDT LABORATORY Carbon Dioxide (CO2) 25 22 - 29 mmol/L 02/20/2023 12:40 PM CDT LABORATORY Anion Gap 8 7 - 15 mmol/L 02/20/2023 12:40 PM CDT LABORATORY Urea Nitrogen 21.7 8.0 - 23.0 mg/dL 02/20/2023 12:40 PM CDT LABORATORY Creatinine 1.14 0.67 - 1.17 mg/dL 02/20/2023 12:40 PM CDT LABORATORY Calcium 8.5(L) 8.8 - 10.2 mg/dL 02/20/2023 12:40 PM CDT LABORATORY Glucose 249(H) 70 - 99 mg/dL 02/20/2023 12:40 PM CDT LABORATORY GFR Estimate 63 >60 mL/min/1.7 3m2 02/20/2023 12:40 PM CDT LABORATORY Comment:eGFR calculated 2020 CKD-EPI equation. Blood STRUCTURE OF RIGHT UPPER LIMB / Unknown Venipuncture / Unknown 02/20/2023 11:50 AM CDT 02/20/2023 11:50 AM CDT Greta Heller PA-C LAB - BLOOD ORDERABL ES LABORATORY [facility] Acute Care Lab [address] Lab (1st floor, no room number) [place] [address], [facility] [phone] documented in this encounter Visit Diagnoses Diagnosis Nonischemic cardiomyopathy (H) Other primary cardiomyopathies Chronic systolic (congestive) heart failure (H) 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) documented in this encounter Care Teams Trumpet Teacher Relationship Specialty Start Date End Date Slava Edwards MD PCP - General Family Medicine 12/10/22 Dyan Brandt PA-C [address] [place] [address] Assigned Heart and Vascular Provider 12/28/22 04/04/23 Kelley Carrillo, RN Registered Nurse Cardiology 02/11/23 documented as of this encounter
--- OUTSIDE RECORDS SUMMARY | 2023-11-06 14:13 | XMS_ITS | Encounter Summary ---
Author Name Unknown Organization [facility] Address [address] [place] [address] Care Team Providers Care Delivery And Installation Subcontractor Name Role Phone Slava Edwards MD Primary Care Provider [phone] Dyan Brandt PA-C Unavailable [phone] Kelley Carrillo RN Unavailable Unavaila ble Encounter Details Date Type Department Care Team (Latest Contact Info) Description 02/20/2023 Travel Social History Tobacco Use Types Packs/Day [...] Info) Description 04/30/2024 12:30 PM CDT Appointment [facility] Care [address] [facility] [address] [place] [address] Greta Heller PA-C [address] [facility] [address] [place] [id number] 04/30/2024 1:30 PM CDT Lab [facility] [address] [facility] [address] [place] [address] 05/05/2024 9:00 AM CDT Office Visit [address] [place] [address] Greta Heller PA-C [address] [place] [address] Agustin Snider MD [address] [place] [id number] documented as of this encounter Visit Diagnoses Not on filedocumented in this encounter Care Teams Delivery And Installation Subcontractor Relationship Specialty Start Date End Date Slava Edwards MD PCP - General Family Medicine 12/10/22 Dyan Brandt PA-C [address] [place] [address] Assigned Heart and Vascular Provider 12/28/22 04/04/23 Kelley Carrillo, CLARA Registered Nurse Cardiology 02/11/23 documented as of this encounter
--- OUTSIDE RECORDS SUMMARY | 2023-11-06 14:13 | XMS_ITS | Encounter Summary ---
Author Name Unknown Organization [facility] Address [address] [place] [address] Care Team Providers Care Group Leader Semiconductor Processing Name Role Phone Slava Edwards MD Primary Care Provider [phone] Dyan Brandt PA-C Unavailable [phone] Encounter Details Date Type Department Care Team (Late st Contact Info) Description 01/09/2023 1:30 PM CDT Lab [facility] [place] [address] [place] [address] [address] [place] [address] Chronic systolic (congestive) heart failure (H) Social [...] Info) Description 04/30/2024 12:30 PM CDT Appointment [facility] Specialty Care [address] [facility] [address] [place] [address] Greta Heller PA-C [address] [place] [address] 04/30/2024 1:30 PM CDT Lab [facility] [address] [facility] [address] [place] [address] 05/05/2024 9:00 AM CDT Office Visit [facility] [address] [facility] [address] [place] [address] Greta Heller PA-C [address] [place], [place] [address] Agustin Snider MD [address] [place] [id number] documented as of this encounter Procedures Procedure Name Priority Date/Time Associated Diagnosis Comments N TERMINAL PRO BNP OUTPATIENT Routine 01/09/2023 1:28 PM CDT Chronic systolic (congestive) heart failure (H) BASIC METABOLIC PANEL Routine 01/09/2023 1:28 PM CDT Chronic systolic (congestive) heart failure (H) documented in this encounter Results * (ABNORMAL) N terminal pro BNP outpatient (01/09/2023 1:28 PM CDT) [facility] N Terminal Pro BNP Outpatient 7,960(H) 0 - 1,800 pg/mL 01/09/2023 2:01 PM CDT RH LABORATORY Comment: Reference range [...] UPPER LIMB / Unknown Venipuncture / Unknown 01/09/2023 1:28 PM CDT 01/09/2023 1:28 PM CDT Dyan Brandt PA-C LAB - BLOOD ORDERABL ES LABORATORY [facility] Acute Care Lab [address] Lab (1st floor, no room number) [place] [address], [facility] [phone] * (ABNORMAL) Basic metabolic panel (01/09/2023 1:28 PM CDT) Sodium 140 136 - 145 mmol/L 01/09/2023 1:56 PM CDT LABORATORY Potassium 4.7 3.4 - 5.3 mmol/L 01/09/2023 1:56 PM CDT LABORATORY Chloride 103 98 - 107 mmol/L 01/09/2023 1:56 PM CDT LABORATORY Carbon Dioxide (CO2) 29 22 - 29 mmol/L 01/09/2023 1:56 PM CDT LABORATORY Anion Gap 8 7 - 15 mmol/L 01/09/2023 1:56 PM CDT LABORATORY Urea Nitrogen 21.4 8.0 - 23.0 mg/dL 01/09/2023 1:56 PM CDT LABORATORY Creatinine 1.11 0.67 - 1.17 mg/dL 01/09/2023 1:56 PM CDT LABORATORY Calcium 8.8 8.8 - 10.2 mg/dL 01/09/2023 1:56 PM CDT LABORATORY Glucose 214(H) 70 - 99 mg/dL 01/09/2023 1:56 PM CDT LABORATORY GFR Estimate 65 >60 mL/min/1.7 3m2 01/09/2023 1:56 PM CDT LABORATORY Comment:eGFR calculated us2020 CKD-EPI equation. Blood STRUCTURE OF LEFT UPPER LIMB / Unknown Venipuncture / Unknown 01/09/2023 1:28 PM CDT 01/09/2023 1:28 PM CDT Dyan Brandt PA-C LAB - BLOOD ORDERABL ES [facility] Acute Care Lab [address] Lab (1st floor, no room number) [place] [address], [facility] [phone] documented in this encounter Visit Diagnoses Diagnosis Chronic systolic (congestive) heart failure (H) documented in this encounter Care Teams Group Leader Semiconductor Processing Relationship Specialty Start Date End Date Slava Edwards MD PCP - General Family Medicine 12/10/22 Dyan Brandt PA-C [address] [place] [address] Assigned Heart and Vascular Provider 12/28/22 04/04/23 documented as of this encounter
--- OUTSIDE RECORDS SUMMARY | 2023-11-06 14:13 | XMS_ITS | Encounter Summary ---
Author Name Unknown Organization [facility] Address [address] [place] [address] Care Team Providers Care Marine Service Manager Name Role Phone Slava Edwards MD Primary Care Provider [phone] Dyan Brandt PA-C Unavailable [phone] Kelley Carrillo RN Unavailable Unavaila ble Encounter Details Date Type Department Care Team (Latest Contact Info) Description 02/25/2023 Travel Social History Tobacco Use Types Packs/Day [...] Info) Description 04/30/2024 12:30 PM CDT Appointment [facility] Care [address] [facility] [address] [place] [address] Greta Heller PA-C [address] [facility] [address] [place] [address] 04/30/2024 1:30 PM CDT Lab [facility] [address] [facility] [address] [place] [phone] 05/05/2024 9:00 AM CDT Office Visit [address] [place] [address] Greta Heller PA-C [address] [place] [address] Agustin Snider MD [address] [place] [id number] documented as of this encounter Visit Diagnoses Not on filedocumented in this encounter Care Teams Marine Service Manager Relationship Specialty Start Date End Date Slava Edwards MD PCP - General Family Medicine 12/10/22 Dyan Brandt PA-C [address] [place] [address] Assigned Heart and Vascular Provider 12/28/22 04/04/23 Kelley Carrillo, CLARA Registered Nurse Cardiology 02/11/23 documented as of this encounter
--- OUTSIDE RECORDS SUMMARY | 2023-11-06 14:13 | XMS_ITS | Encounter Summary ---
Author Name Unknown Organization [place] Address [address] [place] [address] Care Team Providers Care Psychologist Personnel Name Role Phone Slava Edwards MD Primary Care Provider [phone] Dyan Brandt PA-C Unavailable [phone] Encounter Details Date Type Department Care Team (Late st Contact Info) Description 12/26/[address] [place] [address] Becka Cruz RN Social History Tobacco Use Types Packs/Day Years Used Date Smoking Tobacco: Never Alcohol Use Standard Drinks/Week Comments Yes 0 (1 standard drink = 0.6 oz pur e alcohol) occ. Sex and Gender Information Value Date Recorded Sex Assigned at Not on file Gender Identity Not on file Sexual Orientation Not on file COVID-19 Exposure Response Date Recorded In the last 10 days, have yo u been in contact with someone who was confirmed or suspected to have Coronavirus/COVID-19? No / Unsure 12/25/2022 12:22 PM HOUSE DESIGNER documented as of this encounter Miscellaneous Notes * Telephone Encounter - Becka Brown RN - 12/26/2022 3:42 PM CST [facility] OV yesterday 12/25/22 Dyan Brandt PA-C writes: We will get you scheduled in our CORE Clinic in the next couple weeks with repeat labs. Pt is currently scheduled for OV on 01/09/23 with Greta Heller PA-C but no labs scheduled prior. Hold placed for 1:30PM lab on 01/09/23. Called Henok and spouse Miesha and reviewed Dyan Brandt PA-C message. Received verbal confirmation from Henok that it is okay to review results with Miesha. Also confirmed 1:30PM lab appointment prior to 01/09/23 OV. Results reviewed. NT pro BNP inpatient was 3015, now 2337. Creat is generally stable. I did lower torsemide to 10 mg daily as he had consistent weight loss since getting home and being on Entresto. We will follow these labs in a couple weeks. ?? CBC with diff faxed to PCP, drawn per patient request as seeing PCP Friday and wanted to avoid another blood draw. Dyan Brandt PA-C 12/25/2022 4:22 PM They express understanding with no further questions at this time. Message sent to scheduling to add pt to lab schedule. Order for BMP and NT pro BNP placed. Future Appointments Date Time Provider Department Center 01/09/2023 2:30 PM Greta Heller PA-C [facility] PSA [facility]IN 03/28/2023 9:45 AM [email or web address] [facility] CC 03/28/2023 10:45 AM RU LAB [facility]CLB [facility] 04/01/2023 10:00 AM Agustin Snider MD [facility] Becka Crzu RN, BSN [facility] [place] [place] [facility] Knitting Supervisor December 26, 2022 3:53 PM E DESIGNER * Telephone Encounter - Becka Brown RN - 12/26/2022 3:42 PM CST ----- Message from Mary Ann Montalvo RN sent at 12/26/2022 10:37 AM HOUSE DESIGNER ----- CORE patient. ----- Message ----- From: Dyan Brandt PA-C Sent: 12/25/2022 4:23 PM HOUSE DESIGNER To: Mary Ann Montalvo CLARA Results reviewed. NT pro BNP inpatient was 3015, now 2337. Creat is generally stable. I did lower torsemide to 10 mg daily as he had consistent weight loss since getting home and being on Entresto. We will follow these labs in a couple weeks. CBC with diff faxed to PCP, drawn per patient request as seeing PCP Friday and wanted to avoid another blood draw. Dyan Brandt PA-C 12/25/2022 4:22 PM E DESIGNER documented in this encounter Plan of Treatment Upcoming Encounters Date Type Department Care Team (Late st Contact Info) Description 04/30/2024 12:30 PM CDT Appointment [facility] [id number] [place] [address] [address] [place] [address] Greta Heller PA-C [address] [address] 04/30/2024 1:30 PM CDT Lab [facility] [address] [facility] [address] [place] [address] 05/05/2024 9:00 AM CDT Office Visit [address] [place] [address] Greta Heller PA-C [address] [address] Agustin Snider MD [address] [address] documented as of this encounter Results * (ABNORMAL) N terminal pro BNP outpatient (01/09/2023 1:28 PM CDT) N Terminal Pro BNP Outpatient 7,960(H) 0 [...] PA-C LAB - BLOOD ORDERABL ES LABORATORY [facility] [address] Lab (1st floor, no room number) [place] [address] [phone] * (ABNORMAL) Basic metabolic panel (01/09/2023 1:28 PM CDT) Sodium 140 136 - 145 mmol/L 01/09/2023 1:56 PM CDT LABORATORY Potassium 4.7 3.4 - 5.3 mmol/L 01/09/2023 1:56 PM CDT LABORATORY Chloride 103 98 - 107 mmol/L 01/09/2023 1:56 PM CDT LABORATORY Carbon Dioxide (CO2) 29 22 - 29 mmol/L 01/09/2023 1:56 PM CDT RH LABORATORY Anion Gap 8 7 - 15 mmol/L 01/09/2023 1:56 PM CDT RH LABORATORY Urea Nitrogen 21.4 8.0 - 23.0 mg/dL 01/09/2023 1:56 PM CDT RH LABORATORY Creatinine 1.11 0.67 - 1.17 mg/dL 01/09/2023 1:56 PM CDT LABORATORY Calcium 8.8 8.8 - 10.2 mg/dL 01/09/2023 1:56 PM CDT LABORATORY Glucose 214(H) 70 - 99 mg/dL 01/09/2023 1:56 PM CDT RH LABORATORY GFR Estimate 65 >60 mL/min/1.7 3m2 01/09/2023 1:56 PM CDT RH LABORATORY Comment:eGFR calculated us2020 CKD-EPI equation. Blood STRUCTURE OF LEFT UPPER LIMB / Unknown Venipuncture / Unknown 01/09/2023 1:28 PM CDT 01/09/2023 1:28 PM CDT Dyan Brandt PA-C LAB - BLOOD ORDERABL ES RH LABORATORY [facility] [address] [facility] Lab (1st floor, no room number) [place] [address], [facility] [phone] documented in this encounter Visit Diagnoses Diagnosis Chronic systolic (congestive) heart failure (H)- Primary documented in this encounter Care Teams Psychologist Personnel Relationship Specialty Start Date End Date Slava Edwards MD PCP - General Family Medicine 12/10/22 Dyan Brandt PA-C [address] [place] [address] Assigned Heart and Vascular Provider 12/28/22 04/04/23 documented as of this encounter
--- OUTSIDE RECORDS SUMMARY | 2023-11-06 14:13 | XMS_ITS | Encounter Summary ---
Author Name Unknown Organization [place] Address [address] [place] [address]. [place] [address] Care Team Providers Care Humidifier Maintenance Worker Name Role Phone Slava Edwards MD Primary Care Provider [phone] Encounter Details Date Type Department Care Team (Latest Contact Info) Description 12/25/2022 Travel Social History Tobacco Use Types Packs/Day [...] Coronavirus/COVID-19? No / Unsure 12/25/2022 12:22 PM GLUE COOK documented as of this encounter Plan of Treatment Upcoming Encounters Date Type Department Care Team (Late st Contact Info) Description 04/30/2024 12:30 PM CDT Appointment [facility] Specialty Care [address] [facility] [address] [place] [address] Greta Heller PA-C [address] [address] 04/30/2024 1:30 PM CDT Lab [facility] [place] [address] [facility] [address] [place] [address] 05/05/2024 9:00 AM CDT Office Visit [facility] [address] [facility] [address] [place] [address] Greta Heller PA-C [address] [address] Agustin Snider MD [address] [address] documented as of this encounter Visit Diagnoses Not on filedocumented in this encounter Care Teams Humidifier Maintenance Worker Relationship Specialty Start Date End Date Slava Edwards MD PCP - General Family Medicine 12/10/22 documented as of this encounter
--- OUTSIDE RECORDS SUMMARY | 2023-11-06 14:13 | XMS_ITS | Encounter Summary ---
Author Name Unknown Organization [place] Address [address] [place] [address] Care Team Providers Care Thumb Sewer Name Role Phone Slava Edwards MD Primary Care Provider [phone] Dyan Brandt PA-C Unavailable [phone] Kelley Carrillo RN Unavailable Unavaila ble Reason for Visit * Reason Comments CORE HFrEF Results BMP & NT pro BNP * Consultation (Routine: Next available opening) - Pending Review Specialty Diagnoses / Procedures Referred By Juanjo t Referred To Contact Cardiovascular Disease Diagnoses Nonischemic cardiomyopathy (H) Chronic systolic (congestive) heart failure (H) 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) Greta Heller PA-C [address] [address] Referral ID Status Reason Start Date Expiration Date V isits Requested Visits Authorized [id number] Pending Review 01/09/2023 01/09/2024 1 1 Encounter Details Date Type Department Care Team (Latest Contact Info) Description 02/20/2023 1:10 PM CDT Office Visit [facility] [id number] [place] [address] [address] [place] [address] Greta Heller PA-C [address] [id number] Nonischemic cardiomyopathy (H); Chronic systolic (congestive) heart [...] Sign Reading Time Taken Comments Blood Pressure 114/58 02/20/2023 1:04 PM CDT Pulse 88 02/20/2023 1:04 PM CDT Temperature - - Respiratory Rate - - Oxygen Saturation 89% 02/20/2023 1:04 PM CDT Inhaled Oxygen Concentration - - Weight 76 kg (167 lb 8 oz) 02/20/2023 1:04 PM CD T 160# HOME WT Height 168.9 cm (5' 6.5) 02/20/2023 1:04 PM CDT Body Mass Index 26.63 02/20/2023 1:04 PM CDT documented in this encounter Patient Instructions * Patient Instructions* Greta Heller PA-C - 02/20/2023 1:10 PM CDT Call CORE nurse for any questions or concerns Mon-Fri 8am-4pm: #[phone] For concerns after hours: #[phone] Medication changes: INCREASE Entresto to 49/51 mg twice daily. To finish your current prescription, take two 24/26 mg tablets twice daily. When you pick your new prescription, it will be 1 tablet (49/51) mg twice daily. Take 1 full tablet of torsemide (20 mg) daily until your weight returns to 155 pounds. Plan from today: Labs as scheduled 02/27/2023. Echocardiogram scheduled 03/28/2023. Follow-up with Dr. Snider 04/01/2023. Lab results: see attached: Component Latest Ref Rng 01/09/2023 1:28 PM 02/20/2023 11:50 AM Sodium 136 - 145 mmol/L 140 136 Potassium 3.4 - 5.3 mmol/L 4.7 4.5 Chloride 98 - 107 mmol/L 103 103 Carbon Dioxide (CO2) 22 - 29 mmol/L 29 25 Anion Gap 7 - 15 mmol/L 8 8 Urea Nitrogen 8.0 - 23.0 mg/dL 21.4 21.7 Creatinine 0.67 - 1.17 mg/dL 1.11 1.14 Calcium 8.8 - 10.2 mg/dL 8.8 8.5 (L) Glucose 70 - 99 mg/dL 214 (H) 249 (H) GFR Estimate >60 mL/min/1.73m2 65 63 N-Terminal Pro Bnp 0 - 1,800 pg/mL 7,960 (H) 9,402 (H) Legend: (H) High (L) Low documented in this encounter Progress Notes * Greta Heller PA-C - 02/20/2023 1:10 PM CDT Cardiology Clinic Progress Note Henok Chery Date of : 1935 Age: [age] year old 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 Snider Reason for visit: CORE follow-up Assessment and Plan: Henok Chery is a very pleasant 87 year old male who is here today for CORE follow up. Chronic systolic heart failure - LVEF: 30 to 35% on echo 12/10/2022; moderate to severe global hypokinesia of the LV - NYHA class??III, stage??C - Etiology: arrhythmogenic (given scar pattern on cMRI) versus PVC-mediated (17% burden) - Fluid status: Hypervolemic; suspected dry weight: 155# on home scale. -160#on home scale today - Diuretic regimen:??Torsemide 10 mg once daily; if patient experiences weight gain of 2 to 3 pounds in one day, then he takes an extra 10 mg of torsemide - Ischemic evaluation: Last coronary angio 12/2021 through [facility] - Guideline directed medical therapy: - Beta beata:??Toprol 12.5 mg once daily - ACEI/ARB/ARNI: Increase Entresto to 49/51 mg twice daily - Aldactone antagonist:??Not yet - SGLT2 inhibitor: Discussed; patient and family are not interested as they are worried about hypoglycemia. -Counseled patient on fluid and sodium restriction Frequent PVCs -Zio patch 07/2022 [...] RCA noted on cor angio 12/2021 Hypertension -Entresto, Toprol, torsemide -BP in clinic today 114/58. Home SBP 110-140. 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 NT proBNP continues to rise and is 9402 today. Recommend increasing torsemide to 20 mg daily until weight returns to baseline (155#). At thattime, reduce torsemide back to 10 mg once daily. Additionally, as patient is no longer hypotensive (BP 114/58 in clinic today; home SBP 110-140), favor increasing Entresto to 49/51 mg BID. Patient and are not interested in any future CORE [place] follow-up appointments prior to Dr. Snider apt 03/2023 stating they cannot be running to the doctor every couple weeks. Discussed the importance of frequent follow-ups over the next few months as we are titrating GDMT with the goal of improving Mr. Chery's LVEF prior to upcoming echocardiogram. Explained that with frequent medication changes, we like to monitor lab work and patient symptoms. Ultimately, they have decided not to follow-up prior to their Dr. Snider appointment 04/01/2023. They did agree to follow-up labs in 1 to 2weeks given increase in Entresto. Emphasized the importance of contacting the CORE RN in the interim for any changes in symptoms. Follow-up is scheduled with Dr. Snider 04/01/2023 with echocardiogram prior (03/28/2023). Greta Heller PA-C [facility] Pager: [phone] History of Presenting Illness: Henok Chery is a very pleasant 87 year old male with a history of hypothyroidism, bladder cancer status post nephrostomy tube placement and XRT, polycythemia vera, diabetes mellitus type 2, hypertension, mild to moderate CAD with the exception of moderate to severe disease in nondominant RCA,frequent PVCs, and chronic systolic heart failure with nonischemic cardiomyopathy (etiology undetermined). ?? Mr. Chery has previously been followed by Dr. Zaman at [facility]. He was diagnosed with severe biventricular [...] frequent PVCs and was seen at [facility] where he was noted to have episodes of symptomatic bradycardia. At that time, he was diagnosed with hypothyroidism. Started on levothyroxine with improvement in bradycardia. Patient was scheduled to see EP through [facility] in late November [address] [facility] ED with malaise, weakness, nausea, and vomiting [...] daily at low-dose Toprol-XL 12.5 mg daily. 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 At the time of his CORE enrollment visit, discussion was had regarding initiation of Jardiance. Patient and very hesitant due to risk of hypoglycemia and preferred to hold off. Given persistent hypotension, no medication changes were made at that visit. Patient is here today for CORE follow up. Overall, Mr. Chery has been feeling well from a cardiac standpoint since his last appointment. Denies shortness of breath, orthopnea, PND. Denies chest pain, palpitations, lightheadedness, dizziness, near-syncope and syncope. He is taking all medications daily as prescribed. He unfortunately developed a UTI which resulted in ED presentation last Friday. He was started on doxycycline with improvement in his symptoms. Labs today reveal normal kidney function and electrolytes. Glucose is markedly elevated at 249. NT proBNP elevated at 9402. Blood pressure 114/58 and HR 88 in clinic today. Blood pressure at home 112-140/60-70 . Weights at home mostly stable at 155#. Home weight today elevated at 160#. He took a full dose of torsemide (20 mg) today. does most of the cooking and watches her sodium intake closely. Patient with some foot pedaling exercises but otherwise is fairly sedentary. Consumes alcohol 3 times per week (1 beverage). Denies tobacco use. Social History Social History Socioeconomic History ??? Marital status: Spouse name: Not on file ??? Number of children: Not on file ??? Years of education: Not on file ??? Highest education level: Not on file Occupational History ??? Not on file Tobacco Use ??? Smoking status: Never ??? Smokeless tobacco: Not on file Vaping Use ??? Vaping status: Not on file Substance and Sexual Activity ??? Alcohol use: Yes Comment: occ. ??? Drug use: Not on file ??? Sexual activity: Not on file Other Topics Concern ??? Parent/sibling w/ CABG, CA or angioplasty before 65F 55M? Not Asked ??? Service Not Asked ??? Blood Transfusions Not Asked ??? Caffeine Concern Not Asked ??? Occupational Exposure Not Asked ??? Hobby Hazards Not Asked ??? Sleep Concern Not Asked ??? Stress Concern Not Asked ??? Weight Concern Not Asked ??? Special Diet Yes Comment: low carb ??? Back Care Not Asked ??? Exercise Yes ??? Bike Helmet Not Asked ??? Seat Belt Not Asked ??? Self-Exams Not Asked Social History Narrative ??? Not on file Social Determinants of Health Financial Resource Strain: Not on file Food Insecurity: Not on file Transportation Needs: Not on file Physical Activity: Not on file Stress: Not on file Social Connections: Not on file Intimate Partner Violence: Not on file Housing Stability: Not on file Review of Systems: Please see HPI Physical Exam: Vitals: BP 114/58 (BP Location: Right arm, Patient Position: Sitting, Cuff Size: Adult Regular) Pulse 88 Ht 1.689 m (5' 6.5) Wt 76 kg (167 lb 8 oz) SpO2 (!) 89% BMI 26.63 kg/m?? Wt Readings from Last 4 Encounters: 01/09/23 74.4 kg (164 lb) 12/25/22 75.3 kg (166 lb) 12/10/22 71.5 kg (157 lb 11.2 oz) 11/25/22 73 kg (161 lb) GEN: well nourished, in no acute distress. HEENT: Pupils equal, round. Sclerae nonicteric. NECK: Supple, no masses appreciated. noJVD with patient at 90 degrees. C/V: Regular rate and rhythm, no murmur, rub or gallop. RESP: Respirations are unlabored. Clear to auscultation bilaterally without wheezing, rales, or rhonchi. GI: Abdomen soft, nontender. EXTREM: 1+ bilateral LE edema. NEURO: Alert and oriented, cooperative. SKIN: Warm and dry. Data: LIPID RESULTS: No results found for: CHOL, HDL, LDL, TRIG, CHOLHDLRATIO LIVER ENZYME RESULTS: Lab Results Component Value Date AST 14 01/28/2016 ALT 22 01/28/2016 CBC RESULTS: Lab Results Component Value Date WBC 18.3 (H) 12/25/2022 WBC 38.1 (H) 01/28/2016 RBC 3.18 (L) 12/25/2022 RBC 4.00 (L) 01/28/2016 HGB 8.9 (L) 12/25/2022 HGB 14.0 01/28/2016 HCT 31.3 (L) 12/25/2022 HCT 42.8 01/28/2016 MCV 98 12/25/2022 MCV 107 (H) 01/28/2016 MCH 28.0 12/25/2022 MCH 35.0 (H) 01/28/2016 MCHC 28.4 (L) 12/25/2022 MCHC 32.7 01/28/2016 RDW 20.2 (H) 12/25/2022 RDW 18.2 (H) 01/28/2016 PLT 372 12/25/2022 PLT 747 (H) 01/28/2016 BMP RESULTS: Lab Results Component Value Date NA 140 01/09/2023 NA 143 02/13/2016 POTASSIUM 4.7 01/09/2023 POTASSIUM 4.4 02/13/2016 CHLORIDE 103 01/09/2023 CHLORIDE 109 02/13/2016 CO2 29 01/09/2023 CO2 26 02/13/2016 ANIONGAP 8 01/09/2023 ANIONGAP 8 02/13/2016 GLC 214 (H) 01/09/2023 GLC 93 12/10/2022 GLC 171 (H) 02/13/2016 BUN 21.4 01/09/2023 BUN 25 02/13/2016 CR 1.11 01/09/2023 CR 1.03 02/13/2016 GFRESTIMATED 65 01/09/2023 GFRESTIMATED 70 02/13/2016 GFRESTBLACK 84 02/13/2016 KVNG 8.8 01/09/2023 KVNG 8.4 (L) 02/13/2016 A1C RESULTS: Lab Results Component Value Date A1C 6.7 (H) 12/09/2022 A1C 8.4 (H) 01/29/2016 INR RESULTS: No results found for: INR Medications Current Outpatient Medications Medication Sig Dispense Refill ??? aspirin (ASA) 81 MG EC tablet Take 81 mg by mouth daily ??? azithromycin (ZITHROMAX) 250 MG tablet Take 1 tablet (250 mg) by mouth daily (Patient not taking: Reported on 12/25/2022) 3 tablet 0 ??? buPROPion (WELLBUTRIN XL) 300 MG 24 hr tablet Take 300 mg by mouth every morning ??? cefuroxime (CEFTIN) 500 MG tablet Take 1 tablet (500 mg) by mouth 2 times daily (Patient not taking: Reported on 12/25/2022) 14 tablet 0 ??? doxycycline monohydrate (ADOXA) 100 MG tablet Take 1 tablet by mouth 2 times daily ??? ferrous gluconate (FERGON) 324 (38 Fe) MG tablet Take 1 tablet by mouth 2 times daily ??? finasteride (PROSCAR) 5 MG tablet Take 5 mg by mouth daily ??? glipiZIDE (GLUCOTROL) 10 MG tablet Take 10 mg by mouth daily ??? hydroxyurea (HYDREA) 500 MG capsule Take 1,000 mg by mouth daily ??? levothyroxine (SYNTHROID/LEVOTHROID) 175 MCG tablet Take 175 mcg by mouth daily ??? metoprolol succinate ER (TOPROL XL) 25 MG 24 hr tablet Take 0.5 tablets (12.5 mg) by mouth daily 45 tablet 3 ??? omeprazole (PRILOSEC OTC) 20 MG EC tablet Take 20 mg by mouth daily ??? sacubitril-valsartan (ENTRESTO) 24-26 MG per tablet Take 1 tablet by mouth 2 times daily 180 tablet 3 ??? tamsulosin (FLOMAX) 0.4 MG capsule Take 0.4 mg by mouth daily ??? torsemide (DEMADEX) 20 MG tablet 10-20 mg (1/2 to 1 tablet) once daily 90 tablet 3 ??? vitamin D3 (CHOLECALCIFEROL) 50 mcg (2000 units) tablet Take 1 tablet by mouth every other day Past Medical History Past Medical History: Diagnosis Date ??? Depression ??? Diabetes (H) type 2 ??? Gout ??? History of polycythemia vera 2000 ??? Hypertension ??? MRSA infection 05/17/2011 on his nose ??? Squamous cell cancer of lip ??? SVT (supraventricular tachycardia) (H) wide complex tachycardia Past Surgical History: Procedure Laterality Date ??? BIOPSY ??? IR NEPHROSTOMY TUBE CHANGE LEFT 11/25/2022 Family History Problem Relation Age of Onset ??? Coronary Artery Disease No family hx of ??? Hypertension No family hx of Allergies Beta adrenergic blockers and Penicillins 40 minutes spent on the date of the encounter doing chart review, history and exam, documentation and further activities as noted above Greta Heller PA-C [facility] Pager: [phone] documented in this encounter Plan of Treatment Upcoming Encounters Date Type Department Care Team (Late st Contact Info) Description 04/30/2024 12:30 PM CDT Appointment [facility] [address] [place] [address] [address] [place] [address] Greta Heller PA-C [address] [place] [address] 04/30/2024 1:30 PM CDT Lab [facility] [id number] [place] [address] [address] [place] [address] 05/05/2024 9:00 AM CDT Office Visit [facility] [address] [place] [address] [address] [place] [address] Greta Heller PA-C [address] [place] [address] Agustin Snider MD [address] [place] [address] Scheduled Orders Name Type Priority Associated Diagnoses Orde r Schedule Basic metabolic panel Lab Routine Chronic systolic (congestive) heart failure (H) 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) Expected: 02/27/2023 (Approximate), Expires: 02/21/2024 documented as of this encounter Visit Diagnoses Diagnosis Nonischemic cardiomyopathy (H) Other primary cardiomyopathies Chronic systolic (congestive) heart failure (H) 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) documented in this encounter Care Teams Thumb Sewer Relationship Specialty Start Date End Date Slava Edwards MD PCP - General Family Medicine 12/10/22 Dyan Brandt PA-C [address] [place] [address] Assigned Heart and Vascular Provider 12/28/22 04/04/23 Kelley Carrillo, RN Registered Nurse Cardiology 02/11/23 documented as of this encounter
--- OUTSIDE RECORDS SUMMARY | 2023-11-06 14:13 | XMS_ITS | Encounter Summary ---
Author Name Unknown Organization [facility] Address [address] [place] [id number] Care Team Providers Care Record Changer Assembler Name Role Phone Slava Edwards MD Primary Care Provider [phone] Dyan Brandt PA-C Unavailable [phone] Reason for Referral * Consultation (Routine: Next available opening) - Pending Review Specialty Diagnoses / Procedures Referred By Contdaphnie t Referred To Contact Cardiovascular Disease Diagnoses Nonischemic cardiomyopathy (H) Chronic systolic (congestive) heart failure (H) 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) Greta Heller PA-C [address] [place] [address] Referral ID Status Reason Start Date Expiration Date V isits Requested Visits Authorized [id number] Pending Review 01/09/2023 01/09/2024 1 1 Question Answer Follow-up with: Self Reason for follow-up: CORE Scheduling Instructions: [employer] [facility] will call you to coordinate your care as prescribed by your provider. If you have concerns about scheduling, please call [phone]. Comments [facility] will call you to coordinate your care as prescribed by your provider. If you have concerns about scheduling, please call [phone]. Reason for Visit * Reason Comments CORE Enrollment * Consultation (Routine: Next available opening) - Pending Review Specialty Diagnoses / Procedures Referred By Juanjo t Referred To Contact Cardiovascular Disease Diagnoses Nonischemic cardiomyopathy (H) Chronic systolic (congestive) heart failure (H) 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) Dyan Brandt PA-C [address] [place] [address] Referral ID Status Reason Start Date Expiration Date V isits Requested Visits Authorized [id number] Pending Review 12/25/2022 12/25/2023 1 1 Encounter Details Date Type Department Care Team (Latest Contact Info) Description 01/09/2023 2:30 PM CDT Office Visit [address] [place] [phone] Dyan Brandt PA-C [address] [place], [place] [phone] Greta Heller PA-C [address] [place], [place] [id number] Nonischemic cardiomyopathy (H); Chronic systolic (congestive) heart [...] PM CDT documented as of this encounter Last Filed Vital Signs Vital Sign Reading Time Taken Comments Blood Pressure 94/52 01/09/2023 2:05 PM CDT Pulse 63 01/09/2023 2:05 PM CDT Temperature - - Respiratory Rate - - Oxygen Saturation 90% 01/09/2023 2:05 PM CDT Inhaled Oxygen Concentration - - Weight 74.4 kg (164 lb) 01/09/2023 2:05 PM CDT Height 168.9 cm (5' 6.5) 01/09/2023 2:05 PM CDT Body Mass Index 26.07 01/09/2023 2:05 PM CDT documented in this encounter Patient Instructions * Patient Instructions* Greta Heller PA-C - 01/09/2023 2:30 PM CDT Today you had a visit in the CORE clinic. CORE stands for Cardiomyopathy Optimization Rehabilitation Education. The CORE clinic will teach and help you to manage your heart failure and keep you out of the hospital. Call the CORE nurse for any questions or concerns at [phone] Plan: 1. Medication changes: None 2. Follow up: with me in 6-8 weeks with labs prior -Scheduling phone number: [phone] 3. Continue low sodium diet (less than 2000 mg daily). If you eat less salt, you will retain less fluid. 4. Continue to weigh yourself daily. Call the CORE nurse if you develop signs concerning for fluid retention, including weight gain of over 3 pounds in 1 night or over 5 pounds in 1 week, increasing shortness of breath, or increasing swelling in the legs or abdomen. It was great seeing you today! Greta Heller PA-C Physician Intake Nurse [facility] documented in this encounter Progress Notes * Greta Heller PA-C - 01/09/2023 2:30 PM CDT Cardiology Clinic Progress Note Henok Chery Date of : 1935 Age: [age] year old Primary Lean Sensei: Will be Dr. Snider Reason for visit: CORE enrollment Assessment and Plan: Henok Chery is a very pleasant 87 year old male who is here today for CORE enrollment. 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 - Diuretic regimen: Torsemide 10 mg once daily; if patient experiences weight gain of 2 to 3 poundsin one day, then he takes an extra 10 mg of torsemide - Ischemic evaluation: Last coronary angio 12/2021 through [facility] - Guideline directed medical therapy: - Beta beata: Toprol 12.5 mg once daily - ACEI/ARB/ARNI: Entresto 24/26 mg twice daily - Aldactone antagonist: Unable to start secondary to ongoing symptomatic hypotension - SGLT2 inhibitor: Discussed; patient and family hesitant at present. They will continue to consider this option -Counseled patient on fluid and sodium restriction [...] angio 12/2021 Hypertension -BP well controlled on Entresto 24/26 mg twice daily, Toprol 12.5 mg once daily, torsemide 10 mg once daily -In fact, struggling with symptomatic hypotension at present Diabetes mellitus type 2 -Hemoglobin A1c 6.7% 11/2022 -On oral agents Hyperlipidemia -LDL 53 07/2022 -Not on statin therapy Chronic kidney disease -Baseline Cr appears to be 1.1-1.2 most recently -Does have history of JAMILAH on ACEI -Creatinine 1.11 today Polycythemia vera -on hydroxyurea Bladder cancer -s/p nephrostomy tube placement and XRT -Ongoing need for self-catheterization Hypothyroidism -On levothyroxine Changes today: None Follow up plan: Discussion had regarding potential initiation of Jardiance. Patient and very hesitant to do this as they had a prior discussion with their PCP who felt that patient would be at risk for hypoglycemia on this medication even with discontinuation of glipizide. They will continue to consider this as an option but prefer to hold off for now. Giving ongoing symptomatic hypotension, unable to titrate medications further. Despite elevated NT proBNP at 7960, patient appears euvolemic on exam and is overall feeling well. He has been stable since hospital discharge. No changes to medications today. Okay to follow-up in 6 to 8 weeks with labsprior. Follow-up is also scheduled with Dr. Snider 04/01/2023 with echocardiogram prior (03/28/2023). Greta Heller PA-C [facility] - [facility] Pager: [phone] History of Presenting Illness: Henok Cheyr is a very pleasant 87 year old [...] previously been followed by Dr. Zaman at [facility]. He was diagnosed with severe biventricular [...] frequent PVCs and was seen at [facility] where he was noted to have episodes of symptomatic bradycardia. At that time, he was diagnosed with hypothyroidism. Started on levothyroxine with improvement in bradycardia. Patient was scheduled to see EP through [facility] in late November 2022 but presented to [facility] ED with malaise, weakness, nausea, [...] daily at low-dose Toprol-XL 12.5 mg daily. [employer] torsemide 20 mg daily was resumed and later decreased to 10 mg daily during follow-up given hypotension, lightheadedness, and ongoing weight loss after discharge. Patient is here today for CORE enrollment. Patient reports feeling overall very well since discharge from the hospital. Denies chest pain, shortness of breath, orthopnea, PND, near-syncope and syncope. Does endorse some lightheadedness and dizziness that this morning actually caused him to vomit. His is with him in clinic today and reports that he is dealing with an elevated white blood cell count right now and feels that may have contributed to his episode of emesis this morning. He is working closely with his PCP and concession manager to manage this. Labs today show normal kidney function and electrolytes. NT proBNP elevated at 7960. Blood pressurein clinic today is 94/52. Heart rate 63. SBP at home 120-130 before AM meds are given. He weighs himself daily and is consistently 155#. If he gains 2 pounds or more in a day, he takes an extra 10 mgof torsemide. He has had to do this only one time in the past 2.5 weeks. does most of the cooking and watches [...] Never ??? Smokeless tobacco: Not on file Substance and Sexual Activity ??? Alcohol use: Yes Comment: occ. ??? Drug use: Not on file ??? Sexual activity: Not on file Other Topics Concern ??? Parent/sibling w/ CABG, [place] or angioplasty before 65F 55M? Not Asked [...] Systems: Please see HPI Physical Exam: Vitals: There were no vitals taken for this visit. Wt Readings from Last 4 Encounters: 12/25/22 75.3 kg (166 lb) 12/10/22 71.5 kg (157 lb 11.2 oz) 11/25/22 73 kg (161 lb) 02/13/16 88.2 kg (194 lb 6.4 oz) GEN: well nourished, in no acute distress. HEENT: Pupils equal, round. Sclerae nonicteric. NECK: Supple, no masses appreciated. No JVD with patient at 90 degrees C/V: Irregular rhythm; controlled rate. RESP: Respirations are unlabored. Clear to auscultation bilaterally without wheezing, rales, or rhonchi. GI: Abdomen soft, nontender. EXTREM: Trace bilateral LE edema. NEURO: Alert and oriented, [...] RESULTS: Lab Results Component Value Date NA 138 12/25/2022 NA 143 02/13/2016 POTASSIUM 4.5 12/25/2022 POTASSIUM 4.4 02/13/2016 CHLORIDE 103 12/25/2022 CHLORIDE 109 02/13/2016 CO2 28 12/25/2022 CO2 26 02/13/2016 ANIONGAP 7 12/25/2022 ANIONGAP 8 02/13/2016 GLC 257 (H) 12/25/2022 GLC 93 12/10/2022 GLC 171 (H) 02/13/2016 BUN 24.0 (H) 12/25/2022 BUN 25 02/13/2016 CR 1.21 (H) 12/25/2022 CR 1.03 02/13/2016 GFRESTIMATED 59 (L) 12/25/2022 GFRESTIMATED 70 02/13/2016 GFRESTBLACK 84 02/13/2016 KVNG 8.5 (L) 12/25/2022 KVNG 8.4 (L) 02/13/2016 A1C RESULTS: Lab [...] Reported on 12/25/2022) 14 tablet 0 ??? finasteride (PROSCAR) 5 MG tablet Take [...] of Allergies Beta adrenergic blockers and Penicillins 50 minutes spent on the date of the encounter doing chart review, history and exam, documentation and further activities as noted above Greta Heller PA-C [facility] Pager: [phone] documented in this encounter Plan of Treatment Upcoming Encounters Date Type Department Care Team (Late st Contact Info) Description 04/30/2024 12:30 PM CDT Appointment [facility] [id number] [place] [phone] Greta Heller PA-C [address] [place] [address] 04/30/2024 1:30 PM CDT Lab [facility] [address] [facility] [address] [place] [phone] 05/05/2024 9:00 AM CDT Office Visit [facility] [address] [facility] [address] [place] [phone] Greta Heller PA-C [address] [place], [place] [address] Agustin Snider MD [address] [address] Scheduled Referrals Name Type Priority Associated Diagnoses Orde r Schedule Follow-Up with Cardiology [facility] Referral Routine: Next available opening Nonischemic cardiomyopathy (H) Chronic systolic (congestive) heart failure (H) 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) Expected: 02/20/2023 (Approximate), Expires: 01/10/2024 documented as of this encounter Results * (ABNORMAL) N terminal pro BNP outpatient (02/20/2023 11:50 AM CDT) N Terminal Pro BNP Outpatient 9,402(H) 0 - 1,800 pg/mL 02/20/2023 12:42 PM CDT [facility] Comment: Reference range [...] PA-C LAB - BLOOD ORDERABL ES LABORATORY [facility] [address] Lab (1st floor, no room number) [place] [address], [facility] [phone] * (ABNORMAL) Basic metabolic panel (02/20/2023 11:50 AM CDT) [facility] Sodium 136 136 - 145 mmol/L 02/20/2023 [...] 02/20/2023 12:40 PM CDT LABORATORY Comment:eGFR calculated usin 2020 CKD-EPI equation. Blood STRUCTURE OF RIGHT UPPER LIMB / Unknown Venipuncture / Unknown 02/20/2023 11:50 AM CDT 02/20/2023 11:50 AM CDT Greta Heller PA-C LAB - BLOOD ORDERABL ES LABORATORY [facility] [address] [facility] Lab (1st floor, no room number) [place] [address], [facility] [phone] documented in this encounter Visit Diagnoses Diagnosis Nonischemic cardiomyopathy (H) Other primary cardiomyopathies Chronic systolic (congestive) heart failure (H) 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) documented in this encounter Care Teams Record Changer Assembler Relationship Specialty Start Date End Date Slava Edwards MD PCP - General Family Medicine 12/10/22 Dyan Brandt PA-C [address] [place] [address] Assigned Heart and Vascular Provider 12/28/22 04/04/23 documented as of this encounter
--- OUTSIDE RECORDS SUMMARY | 2023-11-06 14:13 | XMS_ITS | Encounter Summary ---
Author Name Unknown Organization [facility] Address [address] [place] [address] Care Team Providers Care Loom Checker Name Role Phone Slava Edwards MD Primary Care Provider [phone] Reason for Referral * Consultation (Routine: Next available opening) - Pending Review Specialty Diagnoses / Procedures Referred By Contac t Referred To Contact Cardiovascular Disease Diagnoses Nonischemic cardiomyopathy (H) Chronic systolic (congestive) heart failure (H) 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) Dyan Brandt PA-C [address] [place] [address] Referral ID Status Reason Start Date Expiration Date V isits Requested Visits Authorized [id number] Pending Review 12/25/2022 12/25/2023 1 1 Question Answer Follow-up with: [facility] Scheduling Instructions: [facility] will call you to coordinate your care as prescribed by your provider. If you have concerns about scheduling, please call [phone]. Comments [facility] will call you to coordinate your care as prescribed by your provider. If you have concerns about scheduling, please call [phone]. [facility] * Consultation (Routine) - Pending Review Specialty Diagnoses / Procedures Referred By Contac t Referred To Contact Cardiovascular Disease Diagnoses Nonischemic cardiomyopathy (H) Chronic systolic (congestive) heart failure (H) 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) Dyan Brandt PA-C [address] [place] [address] Referral ID Status Reason Start Date Expiration Date V isits Requested Visits Authorized [id number] Pending Review 12/25/2022 12/25/2023 1 1 Question Answer Follow-up with: Other Spice Mixer Reason for follow-up: General Cardiology Scheduling Instructions: [facility] will call you to coordinate your care as prescribed by your provider. If you have concerns about scheduling, please call [phone]. Comments [facility] will call you to coordinate your care as prescribed by your provider. If you have concerns about scheduling, please call [phone]. [facility] Reason for Visit * Reason Comments Follow Up Hospital follow up Encounter Details Date Type Department Care Team (Latest Contact Info) Description 12/25/2022 12:30 PM [facility] ATTORNEY Office Visit [facility] [address] [place] [phone] Dyan Brandt PA-C [address] [place], [place] [id number] Nonischemic cardiomyopathy (H) (Primary Dx); Pneumonia due to infectious organism, unspecified laterality, unspecified part of lung; Chronic systolic (congestive) heart failure (H); Chronic [...] Coronavirus/COVID-19? No / Unsure 12/25/2022 12:22 PM [facility] ATTORNEY documented as of this encounter Last Filed Vital Signs Vital Sign Reading Time Taken Comments Blood Pressure 98/46 12/25/2022 12:38 PM [facility] ATT[facility] Pulse 77 12/25/2022 12:38 PM [facility] Temperature - - Respiratory Rate - - Oxygen Saturation 96% 12/25/2022 12:38 PM [facility] ATTOR[facility] Inhaled Oxygen Concentration - - Weight 75.3 kg (166 lb) 12/25/2022 12:38 PM [facility] ATTOR[facility] Height 168.9 cm (5' 6.5) 12/25/2022 12:38 PM CS T Body Mass Index 26.39 12/25/2022 12:38 PM [facility] ATTORNEY documented in this encounter Patient Instructions * Patient Instructions* Dyan Brandt PA-C - 12/25/2022 12:30 PM [facility] ATT[facility]NEY With the occasional lightheadedness and the ongoing weight loss, we will check some blood work today. Additionally, we will lower the dose of torsemide to 10 mg (1/2 tablet) once daily. You may see a little weight gain with this, but if you are noticing more than a couple lbs or if you notice recurrent edema, please call the heart clinic. We will get you scheduled in our [facility] in the next couple weeks with repeat labs. In 3 months, we will plan to repeat the echocardiogram of your heart and have you see a new space and missile operations spacelift [place] in [place]. I refilled your cardiac meds. [facility] documented in this encounter Progress Notes * Dyan Brandt PA-C - 12/25/2022 12:30 PM CST Images from the original note were not included. CARDIOLOGY CLINIC PROGRESS NOTE DOS: 12/25/2022 Henok Chery : 1935, 87 year old History: Mr. Chery is a pleasant, 87-year-old gentleman with a history of hypertension, polycythemia vera, SVT with aberrancy/wide complex tachycardia, severe nonischemic cardiomyopathy EF 25% for which he underwent a comprehensive evaluation at the [facility] in early 2021, mild to moderate CAD, frequent PVCs, bladder cancer with nephrostomy tube and need for self-catheterization, hypothyroidism, diabetes type 2, CKD. He did see Dr. Patti Zaman from [facility] in [place], but hewould like to transfer his cardiac care here to [facility]. He is accompanied by his , who is very sharp and does most of the talking. Initially, in 2016 in the ED, the SVT self-terminated, and post conversion EKG did not show signs of preexcitation. He was started on a small dose of beta blockers, and subsequent workup was essentially negative, including an echocardiogram (normal cardiac function and a mild LVH), a stress test (negative for ischemia) and a nuclear stress test (no ischemia but areas of fixed defect in the apicaland inferior patterson, suggestive of image attenuation). PVC burden was 17% on an outpatient pari mutual ticket checker in the fall 2021 Admitted to [facility] on 12/09/2022 with generalized weakness, nausea and vomiting. Treatedfor PNA. He had frequent PVCs on tele for which general cardiology and EP were consulted. He was started on Entresto and low dose metoprolol. [employer] Norvasc was discontinued. He discharged on [employer] torsemide 20 mg. Last weight was 157 lbs. Component Latest Ref Rng & Units 12/13/2022 Sodium 136 - 145 mmol/L 136 Potassium 3.4 - 5.3 mmol/L 4.6 Chloride 98 - 107 mmol/L 99 Carbon Dioxide (CO2) 22 - 29 mmol/L 28 Anion Gap 7 - 15 mmol/L 9 Urea Nitrogen 8.0 - 23.0 mg/dL 30.0 (H) Creatinine 0.67 - 1.17 mg/dL 1.18 (H) Calcium 8.8 - 10.2 mg/dL 8.5 (L) Glucose 70 - 99 mg/dL 312 (H) GFR Estimate >60 mL/min/1.73m2 60 (L) Currently on ASA 81 mg, Toprol XL 12.5 mg, Entresto 24-26 mg BID, torsemide 20 mg. No chest pain. No SOB. Some dizziness/LH, but checks vitals and BP and HR and O2 are ok. Weight today is 166 lbs here, 153 lbs at home. His home weights have come down from 160 lbs to 153 lbs today since discharge. BPs are running 100s-120s at home. His WBC was still elevated after discharge and PCP adjusted abx. His LE edema and penile edema are resolved. ROS: Skin: Eyes: ENT: Respiratory: Negative Cardiovascular: lightheadedness;Positive for Gastroenterology: Genitourinary: Musculoskeletal: Neurologic: Psychiatric: Heme/Lymph/Imm: Endocrine: PAST MEDICAL HISTORY: Past Medical History: Diagnosis Date ??? Depression ??? Diabetes (H) type 2 ??? Gout ??? History of polycythemia vera 2000 ??? Hypertension ??? MRSA infection 05/17/2011 on his nose ??? Squamous cell cancer of lip ??? SVT (supraventricular tachycardia) (H) wide complex tachycardia PAST SURGICAL HISTORY: Past Surgical History: Procedure Laterality Date ??? BIOPSY ??? IR NEPHROSTOMY TUBE CHANGE LEFT 11/25/2022 SOCIAL HISTORY: Social History Socioeconomic History ??? Marital status: Tobacco Use ??? Smoking status: Never Substance and Sexual Activity ??? Alcohol use: Yes Comment: occ. Other Topics Concern ??? Special Diet Yes Comment: low carb ??? Exercise Yes FAMILY HISTORY: Family History Problem Relation Age of Onset ??? Coronary Artery Disease No family hx of ??? Hypertension No family hx of MEDS: aspirin (ASA) 81 MG EC tablet, Take 81 mg by mouth daily buPROPion (WELLBUTRIN XL) 300 MG 24 hr tablet, Take 300 mg by mouth every morning finasteride (PROSCAR) 5 MG tablet, Take 5 mg by mouth daily glipiZIDE (GLUCOTROL) 10 MG tablet, Take 10 mg by mouth daily hydroxyurea (HYDREA) 500 MG capsule, Take 1,000 mg by mouth daily levothyroxine (SYNTHROID/LEVOTHROID) 175 MCG tablet, Take 175 mcg by mouth daily omeprazole (PRILOSEC OTC) 20 MG EC tablet, Take 20 mg by mouth daily tamsulosin (FLOMAX) 0.4 MG capsule, Take 0.4 mg by mouth daily vitamin D3 (CHOLECALCIFEROL) 50 mcg (2000 units) tablet, Take 1 tablet by mouth every other day azithromycin (ZITHROMAX) 250 MG tablet, Take 1 tablet (250 mg) by mouth daily (Patient not taking: Reported on 12/25/2022) cefuroxime (CEFTIN) 500 MG tablet, Take 1 tablet (500 mg) by mouth 2 times daily (Patient not taking: Reported on 12/25/2022) No current facility-administered medications on file prior to visit. ALLERGIES: Allergies Allergen Reactions ??? Beta Adrenergic Blockers Other (See Comments) Other reaction(s): Bradycardia Bradycardia ??? Penicillins PHYSICAL EXAM: Vitals: BP 98/46 (BP Location: Right arm) Pulse 77 Resp (!) 96 Ht 1.689 m (5' 6.5) Wt 75.3kg (166 lb) BMI 26.39 kg/m?? Constitutional: cooperative, alert and oriented, well developed, well nourished, in no acute distress chronically ill Skin: Head: normocephalic Eyes: pupils equal and round;conjunctivae and lids unremarkable;sclera white ENT: no pallor or cyanosis Neck: JVP normal Respiratory: clear to auscultation Cardiac: irregular rhythm distant heart sounds GI: abdomen soft;BS normoactive Vascular: Extremities and Musculoskeletal: Neurological: no gross motor deficits;affect appropriate LABS/DATA: I reviewed the following: Cardiac cath 01/08/22 at [facility]: Diagnostic Findings * Left Anterior Descending ?? 20% stenosis in the Proximal LAD. ?? 40% stenosis in the Mid LAD. ?? 30% stenosis in the 1st Diagonal. * Circumflex ?? 30% stenosis in the 1st Marginal. ?? 30% stenosis in the 2nd Marginal. ?? 30% stenosis in the CIRC AV. ?? 50% stenosis in the CIRC AV. * Right Coronary Artery ?? 40% stenosis in the Proximal RCA. ?? 70% stenosis in the Mid RCA. Hemodynamics State: Baseline Pressures (mmHg) Site Systolic Diastolic End Diastolic A Wave V Wave Mean RA ?17 23 17 RV 55 9 16 ? PA 53 29 ?40 PCW ?33 34 30 AO 125 67 ?90 Oximetry AO: 97 % PA: 62.4 % Cardiac Output Estimated Francie Output: 5.02 l/min Estimated Francie Index: 2.53 l/min/m2 Resistances PVR: 159.44 PVR Index: 316.14 SVR: ??1163.89 SVR Index: ??2307.8 PVR/SVR: 0.14 Blood Flow Pulmonary (QP): 5.02 l/min Systemic (QS): 5.02 l/min CMRI 02/14/22 at [facility]: FINAL IMPRESSION ?? 1. ?? Severe left ventricular systolic dysfunction, LVEF 24%. ?A. ?? Prominent increase in LV volumes and diffuse hypokinesis. ?B. ?? Mild increase in mass - eccentric LVH. 2. ?? Severe right ventricular systolic dysfunction, RVEF 28%. ?A. ?? Prominent increase in RV volumes (similar to the increase present in LV volumes). 3. ?? Mid myocardial basilar miles- and inferoseptal fibrosis. ?A. ?? Increased cardiac risk. 4. ?? Severe biatrial enlargement. 5. ?? Mild to moderate increase in ECV 34% - not consistent with amyloidosis as a cause of LV dysfunction. 6. ?? Normal pericardium. 7. ?? Normal lungs. 8. ?? Normal aorta. Echo 09/20/22 at [facility]: Final Impressions: ??1. Moderately increased LV size, severely reduced with an estimated EF of 20%. ??2. Right ventricular cavity size is mildly enlarged, global systolic RV function is normal. ??3. Moderately enlarged left atrium. ??4. The inferior vena cava is consistent with elevated right atrial pressure. ??5. Moderately increased estimated pulmonary pressure (46 mmHg plus RAP). ??6. No significant valve disease detected. Comparison Compared to prior exam of 12/07/2021, there has been no significant change. Echo 12/10/22: Interpretation Summary The left ventricle is normal in size. The visual ejection fraction is 30-35%. Left ventricular diastolic function is indeterminate. There is mod-severe global hypokinesia of the left ventricle. The patient exhibited frequent PVCs. ASSESSMENT/PLAN: 1. Severe nonischemic cardiomyopathy with an LVEF 20-25% in 2021 and 30-35% on recent echo 11/2022. 2. Mild to moderate nonobstructive coronary artery disease (with the exception of moderate to severe disease in a nondominant right coronary artery) on coronary angiography in 12/2021. Interestingly, a cardiovascular MRI subsequently demonstrated mid myocardial basal septal fibrosis. 3. Frequent PVCs. Cecil of 17% noted on Zio from 07/2022. Per Dr. Ahuja, at least 3 separate morphologies, they appear to be of LV origin. This high PVC burden probably contributes to cardiomyopathy/LV dysfunction. No sxs. On Toprol XL 12.5 mg. Not a good candidate for catheter ablation. 4. Bladder cancer status post nephrostomy tube placement and XRT. 5. Diabetes. ?? PLAN - Continue current Entresto 24-26 mg BID - Continue Toprol XL 12.5 mg - Due to soft BPs, unable to add MRA - Has discussed SGLT2 inhibitor with PCP, holding off for now - Due to being on Entresto now, ongoing weight loss since he has been home, some LH, will lower torsemide to 10 mg daily - BMP, NT pro BNP today. Will also get CBC today and fax result to PCP per patient request - Establish in [facility] in a couple weeks with BMP, NT pro BNP prior - In 3 months, repeat an echo and have him establish with a [place] space and missile operations spacelift. He is transferring care from [facility] to [facility] and prefers [place] over [place], and Miomyopathy. If LV function remains low, consider amiodarone for PVC suppression Follow up: CORE enrollment 3 months with echo Prescription coverage check: Patient has Medicare D through [employer] ?? [place] is Tier 4 non-preferred. ?? Jardiance --Upon receipt of RX, Discharge Pharmacy can provide 14 days free. --Patient will pay 100% of the first $505 in drugs costs (first fill will be as much as $512l) --Subsequent fills will be a $101/mo. --When total drug costs exceed $4,660, dillard will increase to a 25% coinsurance, equivalent to $159/mo. ?? Entresto --Upon receipt of RX, Discharge Pharmacy can provide 1 mo free. --Patient will pay 100% of the first $505 in drugs costs (first fill will be as much as $525) --Subsequent fills will be $114/mo. --When total drug costs exceed $4,660, dillard will increase to a 25% coinsurance, equivalent to $179/mo. ?? I would recommend patient consider a Medicare D plan for 2023 that has flat copays as opposed to coinsurances (percentages) in the interest of cost savings. Plans can be reviewed at medicare.gov August 03-September 25. ?? Soniya [employer] Station Attendant/Liaison, Discharge Pharmacy [phone] (voice or text) [email or web address] Dyan Brandt PA-C [facility] documented in this encounter Plan of Treatment Upcoming Encounters Date Type Department Care Team (Late st Contact Info) Description 04/30/2024 12:[address] [facility] [address] [place] [address] [address] [place] [address] Greta Heller PA-C [address] [address] 04/30/2024 1:30 PM CDT Lab [address] [place] [address] 05/05/2024 9:00 AM CDT Office Visit [address] [place] [address] Greta Heller PA-C [address] [address] Agustin Snider MD [address] [id number] Scheduled Referrals Name Type Priority Associated Diagnoses Orde r Schedule Follow-Up with Cardiology Referral Routine: Next available opening Nonischemic cardiomyopathy (H) Chronic systolic (congestive) heart failure (H) 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) Expected: 03/27/2023 (Approximate), Expires: 12/26/2023 C.O.R[facility] Enrollment - [facility] Referral Routine: Next available opening Nonischemic cardiomyopathy (H) Chronic systolic (congestive) heart failure (H) 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) Expected: 01/08/2023 (Approximate), Expires: 12/26/2023 documented as of this encounter Results * (ABNORMAL) N terminal pro BNP outpatient (03/28/2023 10:02 AM CDT) N Terminal Pro BNP Outpatient 2,595(H) 0 - 1,800 pg/mL 03/28/2023 10:48 AM CDT [facility] Comment: Reference range shown [...] PA-C LAB - BLOOD ORDERABL ES LABORATORY [facility] Acute Care Lab [address] Lab (1st floor, no room number) [place] [address], [facility] [phone] * (ABNORMAL) Basic metabolic panel (03/28/2023 10:02 [...] 03/28/2023 10:36 AM CDT LABORATORY Comment:eGFR calculated usin g 2020 CKD-EPI equation. Blood STRUCTURE OF RIGHT UPPER LIMB / Unknown Venipuncture / Unknown 03/28/2023 10:02 AM CDT 03/28/2023 10:06 AM CDT Dyan Brandt PA-C LAB - BLOOD ORDERABL ES LABORATORY [facility] Acute Care Lab [address] Lab (1st floor, no room number) [place] [address], [facility] [phone] * (ABNORMAL) N terminal pro BNP outpatient (12/25/2022 1:47 PM DEPUT[facility] ATTORNEY) N Terminal Pro BNP Outpatient 2,337(H) 0 - 1,800 pg/mL 12/25/2022 2:25 PM [facility] ATTOR[facility] LABORATORY Comment: Reference range shown and results [...] UPPER LIMB / Unknown Venipuncture / Unknown 12/25/2022 1:47 PM [facility] ATTORNEY 12/25/2022 1:47 PM [facility] ATTORNEY Dyan Brandt PA-C LAB - BLOOD ORDERABL ES LABORATORY [facility] Acute Care Lab [address] Lab (1st floor, no room number) [place] [address], [facility] [phone] * (ABNORMAL) Basic metabolic panel (12/25/2022 1:47 PM DE[facility] ATTORNEY) Sodium 138 136 - 145 mmol/L 12/25/2022 2:20 PM [facility] LABORATORY Potassium 4.5 3.4 - 5.3 mmol/L 12/25/2022 2:20 PM [facility] LABORATORY Chloride 103 98 - 107 mmol/L 12/25/2022 2:20 PM [facility] LABORATORY Carbon Dioxide (CO2) 28 22 - 29 mmol/L 12/25/2022 2:20 PM [facility] LABORATORY Anion Gap 7 7 - 15 mmol/L 12/25/2022 2:20 PM [facility] LABORATORY Urea Nitrogen 24.0(H) 8.0 - 23.0 mg/dL 12/25/2022 2:20 PM [facility] LABORATORY Creatinine 1.21(H) 0.67 - 1.17 mg/dL 12/25/2022 2:20 PM [facility] LABORATORY Calcium 8.5(L) 8.8 - 10.2 mg/dL 12/25/2022 2:20 PM [facility] LABORATORY Glucose 257(H) 70 - 99 mg/dL 12/25/2022 2:20 PM [facility] LABORATORY GFR Estimate 59(L) >60 mL/min/1.7 3m2 12/25/2022 2:20 PM [facility] LABORATORY Comment:eGFR calculated us2020 CKD-EPI equation. Blood STRUCTURE OF LEFT UPPER LIMB / Unknown Venipuncture / Unknown 12/25/2022 1:47 PM [facility] ATTORNEY 12/25/2022 1:47 PM [facility] ATTORNEY Dyan Brandt PA-C LAB - BLOOD ORDERABL ES [facility] Acute Care Lab [address] Lab (1st floor, no room number) [place] [address], [facility] [phone] documented in this encounter Visit Diagnoses Diagnosis Nonischemic cardiomyopathy (H)- Primary Other primary cardiomyopathies Pneumonia due to infectious organism, unspecified laterality, unspecified part of lung Chronic systolic (congestive) heart failure (H) 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) documented in this encounter Care Teams Loom Checker Relationship Specialty Start Date End Date Slava Edwards MD PCP - General Family Medicine 12/10/22 documented as of this encounter
--- OUTSIDE RECORDS SUMMARY | 2023-11-06 14:13 | XMS_ITS | Encounter Summary ---
Author Name Unknown Organization [facility] Address [address] [place] [address] Care Team Providers Care Die Maker Apprentice Name Role Phone Slava Edwards MD Primary Care Provider [phone] Reason for Visit * Reason Onset Date Comments C[facility] 12/26/2022 Labs Encounter Details Date Type Department Care Team (Late st Contact Info) Description 12/26/[address] [place] [address] Idania Pearce, CLARA CORE (Labs/) Social History Tobacco Use Types Packs/Day Years [...] Coronavirus/COVID-19? No / Unsure 12/25/2022 12:22 PM STENCIL MAKER documented as of this encounter Miscellaneous Notes * Telephone Encounter - Idania Pearce RN - 12/26/2022 3:51 PM STENCIL MAKER Called Henok to see how he is doing with torsemide 10 mg once daily. No answer, voice mail box fail. Closing encounter as another CORE RN spoke to Henok regarding labs. Future Appointments Date Time Provider Department Center 01/09/2023 2:30 PM Greta Heller PA-C [facility] PSA CLIN 03/28/2023 9:45 AM [email or web address] [facility] RSCC 03/28/2023 10:45 AM RU LAB [facility] 04/01/2023 10:00 AM Agustin Snider MD [facility] PSA CLIN LAURA Zayas, RN 3:57 PM 12/26/22 CIL MAKER * Telephone Encounter - Idania Pearce RN - 12/26/2022 3:51 PM STENCIL MAKER ----- Message from Mary Ann Montalvo RN sent at 12/26/2022 10:37 AM STENCIL MAKER ----- CORE patient. ----- Message ----- From: Dyan Brandt PA-C Sent: 12/25/2022 4:23 PM STENCIL MAKER To: Mary Ann Montalvo RN Results reviewed. NT pro BNP inpatient was [...] draw. Dyan Brandt PA-C 12/25/2022 4:22 PM CIL MAKER documented in this encounter Plan of Treatment Upcoming Encounters Date Type Department Care Team (Late st Contact Info) Description 04/30/2024 12:30 PM CDT Appointment [facility] [place] Specialty Care [address] [address] [place] [address] Greta Heller PA-C [address] [id number] 04/30/2024 1:30 PM CDT Lab [facility] [address] [place] [address] 05/05/2024 9:00 AM CDT Office Visit [facility] [address] [address] [place] [address] Greta Heller PA-C [address] [address] Agustin Snider MD [address] [address] documented as of this encounter Visit Diagnoses Not on filedocumented in this encounter Care Teams Die Maker Apprentice Relationship Specialty Start Date End Date Slava Edwards MD PCP - General Family Medicine 12/10/22 documented as of this encounter
--- OUTSIDE RECORDS SUMMARY | 2023-11-06 14:13 | XMS_ITS | Encounter Summary ---
Author Name Unknown Organization [place] Address [address] [place] [address] Care Team Providers Care Corporate Quality Assurance Manager Name Role Phone Slava Edwards MD Primary Care Provider [phone] Encounter Details Date Type Department Care Team (Late st Contact Info) Description 12/25/2022 1:45 PM BEHAVIORAL HEALTH CONSULTANT Lab [facility] [place] [address] [place] [phone] Nonischemic cardiomyopathy (H); Chronic systolic (congestive) heart failure (H); Pneumonia due to infectious organism, unspecified laterality, unspecified part of lung Social History Tobacco Use Types Packs/Day Years [...] Coronavirus/COVID-19? No / Unsure 12/25/2022 12:22 PM BEHAVIORAL HEALTH CONSULTANT documented as of this encounter Plan of Treatment Upcoming Encounters Date Type Department Care Team (Late st Contact Info) Description 04/30/2024 12:30 PM CDT Appointment [facility] [address] [place] [phone] Greta Heller PA-C [address] [address] 04/30/2024 1:30 PM CDT Lab [facility] [address] [place] [address] 05/05/2024 9:00 AM CDT Office Visit [facility] [address] [place] [address] Greta Heller PA-C [address] [place] [address] Agustin Snider MD [address] [address] documented as of this encounter Procedures Procedure Name Priority Date/Time Associated Diagnosis Comments CBC WITH PLATELETS AND DIFFERENTIAL Routine 12/25/2022 1:47 PM BEHAVIORAL HEALTH CONSULTANT Pneumonia due to infectious organism, unspecified laterality, unspecified part of lung CBC WITH PLATELETS & DIFFERENTIAL Routine 12/25/2022 1:47 PM BEHAVIORAL HEALTH CONSULTANT Pneumonia due to infectious organism, unspecified laterality, unspecified part of lung N TERMINAL PRO BNP OUTPATIENT Routine 12/25/2022 1:47 PM BEHAVIORAL HEALTH CONSULTANT Nonischemic cardiomyopathy (H) Chronic systolic (congestive) heart failure (H) DIFFERENTIAL Routine 12/25/2022 1:47 PM BEHAVIORAL HEALTH CONSULTANT Pneumonia due to infectious organism, unspecified laterality, unspecified part of lung BASIC METABOLIC PANEL Routine 12/25/2022 1:47 PM BEHAVIORAL HEALTH CONSULTANT Nonischemic cardiomyopathy (H) documented in this encounter Results * (ABNORMAL) Manual Differential (12/25/2022 1:47 PM BEHAVIORAL HEALTH CONSULTANT) % Neutrophils 98 % 12/25/2022 3:10 PM BEHAVIORAL HEALTH CONSULTANT [facility] % Lymphocytes 1 % 12/25/2022 3:10 PM BEHAVIORAL HEALTH CONSULTANT [facility] % Monocytes 0 % 12/25/2022 3:10 PM BEHAVIORAL HEALTH CONSULTANT [facility] % Eosinophils 0 % 12/25/2022 3:10 PM BEHAVIORAL HEALTH CONSULTANT [facility] % Basophils 1 % 12/25/2022 3:10 PM BEHAVIORAL HEALTH CONSULTANT [facility] NRBCs per 100 WBC 1(H) <=0 % 12/25/2022 3:10 PM BEHAVIORAL HEALTH CONSULTANT [facility] Absolute Neutrophils 17.9(H) 1.6 - 8.3 10e3/uL 12/25/2022 3:10 PM BEHAVIORAL HEALTH CONSULTANT [facility] Absolute Lymphocytes 0.2(L) 0.8 - 5.3 10e3/uL 12/25/2022 3:10 PM BEHAVIORAL HEALTH CONSULTANT [facility] Absolute Monocytes 0.0 0.0 - 1.3 10e3/uL 12/25/2022 3:10 PM BEHAVIORAL HEALTH CONSULTANT [facility] Absolute Eosinophils 0.0 0.0 - 0.7 10e3/uL 12/25/2022 3:10 PM BEHAVIORAL HEALTH CONSULTANT [facility] Absolute Basophils 0.2 0.0 - 0.2 10e3/uL 12/25/2022 3:10 PM BEHAVIORAL HEALTH CONSULTANT [facility] Absolute NRBCs 0.2(H) <=0.0 10e3/uL 023 3:10 PM BEHAVIORAL HEALTH CONSULTANT [facility] RBC Morphology Confirmed RBC Indices 12/25/2022 3:10 PM BEHAVIORAL HEALTH CONSULTANT [facility] Platelet Assessment Automated Count Confirmed. Platelet morphology is normal. Automated Count Confirmed. Platelet morphology is normal. 12/25/2022 3:10 PM BEHAVIORAL HEALTH CONSULTANT [facility] Blood STRUCTURE OF LEFT UPPER LIMB / Unknown Venipuncture / Unknown 12/25/2022 1:47 PM BEHAVIORAL HEALTH CONSULTANT 12/25/2022 1:47 PM BEHAVIORAL HEALTH CONSULTANT Dyan Brandt PA-C LAB - BLOOD ORDERABL ES [facility] Lab [address] [facility] Lab (1st floor, no room number) [place] [address], [facility] [phone] * (ABNORMAL) CBC with platelets and differential (12/25/2022 1:47 PM BEHAVIORAL HEALTH CONSULTANT) [facility] WBC Count 18.3(H) 4.0 - 11.0 10e3/uL 12/25/2022 3:10 PM BEHAVIORAL HEALTH CONSULTANT [facility] RBC Count 3.18(L) 4.40 - 5.90 10e6/uL 12/25/2022 3:10 PM BEHAVIORAL HEALTH CONSULTANT [facility] Hemoglobin 8.9(L) 13.3 - 17.7 g/dL 12/25/2022 3:10 PM BEHAVIORAL HEALTH CONSULTANT [facility] Hematocrit 31.3(L) 40.0 - 53.0 % 12/25/2022 3:10 PM BEHAVIORAL HEALTH CONSULTANT [facility] MCV 98 78 - 100 fL 12/25/2022 3:10 PM BEHAVIORAL HEALTH CONSULTANT [facility] MCH 28.0 26.5 - 33.0 pg 12/25/2022 3:10 PM BEHAVIORAL HEALTH CONSULTANT [facility] MCHC 28.4(L) 31.5 - 36.5 g/dL 12/25/2022 3:10 PM BEHAVIORAL HEALTH CONSULTANT [facility] RDW 20.2(H) 10.0 - 15.0 % 12/25/2022 3:10 PM BEHAVIORAL HEALTH CONSULTANT [facility] Platelet Count 372 150 - 450 10e3/uL 12/25/2022 3:10 PM BEHAVIORAL HEALTH CONSULTANT [facility] Blood STRUCTURE OF LEFT UPPER LIMB / Unknown Venipuncture / Unknown 12/25/2022 1:47 PM BEHAVIORAL HEALTH CONSULTANT 12/25/2022 1:47 PM BEHAVIORAL HEALTH CONSULTANT Dyan Brandt PA-C LAB - BLOOD ORDERABL ES [facility] Lab [address] [facility] Lab (1st floor, no room number) [place] [address], [facility] [phone] * (ABNORMAL) N terminal pro BNP outpatient (12/25/2022 1:47 PM BEHAVIORAL HEALTH CONSULTANT) N Terminal Pro BNP Outpatient 2,337(H) 0 - 1,800 pg/mL 12/25/2022 2:25 PM BEHAVIORAL HEALTH CONSULTANT [facility] Comment: Reference range shown and [...] Unknown Venipuncture / Unknown 12/25/2022 1:47 PM BEHAVIORAL HEALTH CONSULTANT 12/25/2022 1:47 PM BEHAVIORAL HEALTH CONSULTANT Dyan Brandt PA-C LAB - BLOOD ORDERABL ES LABORATORY [facility] [address] Lab (1st floor, no room number) [place] [address], [facility] [phone] * (ABNORMAL) Basic metabolic panel (12/25/2022 1:47 PM BEHAVIORAL HEALTH CONSULTANT) Sodium 138 136 - 145 mmol/L 12/25/2022 2:20 PM [facility] Potassium 4.5 3.4 - 5.3 mmol/L 12/25/2022 2:20 PM [facility] Chloride 103 98 - 107 mmol/L 12/25/2022 2:20 PM [facility] Carbon Dioxide (CO2) 28 22 - 29 mmol/L 12/25/2022 2:20 PM [facility] Anion Gap 7 7 - 15 mmol/L 12/25/2022 2:20 PM [facility] Urea Nitrogen 24.0(H) 8.0 - 23.0 mg/dL 12/25/2022 2:20 PM [facility] Creatinine 1.21(H) 0.67 - 1.17 mg/dL 12/25/2022 2:20 PM [facility] Calcium 8.5(L) 8.8 - 10.2 mg/dL 12/25/2022 2:20 PM [facility] Glucose 257(H) 70 - 99 mg/dL 12/25/2022 2:20 PM [facility] GFR Estimate 59(L) >60 mL/min/1.7 3m2 12/25/2022 2:20 PM [facility] Comment:eGFR calculated usin 2020 CKD-EPI equation. Blood STRUCTURE OF LEFT UPPER LIMB / Unknown Venipuncture / Unknown 12/25/2022 1:47 PM BEHAVIORAL HEALTH CONSULTANT 12/25/2022 1:47 PM BEHAVIORAL HEALTH CONSULTANT Dyan Brandt PA-C LAB - BLOOD ORDERABL ES [facility] Acute Care Lab [address] Lab (1st floor, no room number) [place] [address], [facility] [phone] documented in this encounter Visit Diagnoses Diagnosis Nonischemic cardiomyopathy (H) Other primary cardiomyopathies Chronic systolic (congestive) heart failure (H) Pneumonia due to infectious organism, unspecified laterality, unspecified part of lung documented in this encounter Care Teams Corporate Quality Assurance Manager Relationship Specialty Start Date End Date Slava Edwards MD PCP - General Family Medicine 12/10/22 documented as of this encounter
--- OUTSIDE RECORDS SUMMARY | 2023-11-06 14:13 | XMS_ITS | Encounter Summary ---
Author Name Unknown Organization [place] Address [address] [place] [address] Care Team Providers Care Reliability Manager Name Role Phone Slava Edwards MD Primary Care Provider [phone] Dyan Brandt PA-C Unavailable [phone] Kelley Carrillo RN Unavailable Unavaila ble Encounter Details Date Type Department Care Team (Late st Contact Info) Description 02/18/2023 Telephone [facility] Interventional Radiology [address] [place] [address] Brianna Knott, CLARA Social History Tobacco Use Types Packs/Day [...] Info) Description 04/30/2024 12:30 PM CDT Appointment [facility] Specialty Care [address] [place] [phone] Greta Heller PA-C [address] [address] 04/30/2024 1:30 PM CDT Lab [facility] [address] [place] [phone] 05/05/2024 9:00 AM CDT Office Visit [facility] [address] [place] [phone] Greta Heller PA-C [address] [id number] Agustin Snider MD [address] [address] documented as of this encounter Visit Diagnoses Not on filedocumented in this encounter Care Teams Reliability Manager Relationship Specialty Start Date End Date Slava Edwards MD PCP - General Family Medicine 12/10/22 Dyan Brandt PA-C [address] [id number] Assigned Heart and Vascular Provider 12/28/22 04/04/23 Kelley Carrillo, RN Registered Nurse Cardiology 02/11/23 documented as of this encounter
--- OUTSIDE RECORDS SUMMARY | 2023-11-06 14:14 | XMS_ITS | Encounter Summary ---
Author Name Unknown Organization [place] Address [address] [place] [address] Care Team Providers Care Gerentological Physiotherapist Name Role Phone Slava Edwards MD Primary Care Provider [phone] Encounter Details Date Type Department Care Team (Late st Contact Info) Description 12/13/2022 12:00 PM BUSINESS ANALYSIS SPECIALIST Lab [facility] Heart [facility] [address] [place] [phone] Stage 3 chronic kidney disease, unspecified whether stage 3a or 3b CKD (H) Social History Tobacco Use Types Packs/Day [...] suspected to have Coronavirus/COVID-19? No / Unsure 12/13/2022 11:49 AM BUSINESS ANALYSIS SPECIALIST documented as of this encounter Plan of Treatment Upcoming Encounters Date Type Department Care Team (Late st Contact Info) Description 04/30/2024 12:30 PM CDT Appointment [facility] Care [address] [place] [phone] Greta Heller PA-C [address] [address] 04/30/2024 1:30 PM CDT Lab [facility] [address] [address] [place] [address] 05/05/2024 9:00 AM CDT Office Visit [facility] [address] [place] [phone] Greta Heller PA-C [address] [address] Agustin Snider MD [address] [address] documented as of this encounter Procedures Procedure Name Priority Date/Time Associated Diagnosis Comments BASIC METABOLIC PANEL Routine 12/13/2022 11:56 AM BUSINESS ANALYSIS SPECIALIST Stage 3 chronic kidney disease, unspecified whether stage 3a or 3b CKD (H) documented in this encounter Results * (ABNORMAL) Basic metabolic panel (12/13/2022 11:56 AM BUSINESS ANALYSIS SPECIALIST) Sodium 136 136 - 145 mmol/L 12/13/2022 12:29 PM [facility] Potassium 4.6 3.4 - 5.3 mmol/L 12/13/2022 12:29 PM [facility] Chloride 99 98 - 107 mmol/L 12/13/2022 12:29 PM [facility] Carbon Dioxide (CO2) 28 22 - 29 mmol/L 12/13/2022 12:29 PM [facility] Anion Gap 9 7 - 15 mmol/L 12/13/2022 12:29 PM [facility] Urea Nitrogen 30.0(H) 8.0 - 23.0 mg/dL 12/13/2022 12:29 PM [facility] Creatinine 1.18(H) 0.67 - 1.17 mg/dL 12/13/2022 12:29 PM [facility] Calcium 8.5(L) 8.8 - 10.2 mg/dL 12/13/2022 12:29 PM BUSINESS ANALYSIS SPECIALIST LABORATORY Glucose 312(H) 70 - 99 mg/dL 12/13/2022 12:29 PM BUSINESS ANALYSIS SPECIALIST LABORATORY GFR Estimate 60(L) >60 mL/min/1.7 3m2 12/13/2022 12:29 PM BUSINESS ANALYSIS SPECIALIST LABORATORY Comment:eGFR calculated usin 2020 CKD-EPI equation. Blood STRUCTURE OF RIGHT UPPER LIMB / Unknown Venipuncture / Unknown 12/13/2022 11:56 AM BUSINESS ANALYSIS SPECIALIST 12/13/2022 11:57 AM BUSINESS ANALYSIS SPECIALIST Orquidea Porter NP LAB - BLOOD ORDERABL ES LABORATORY [facility] Acute Care Lab [address] Lab (1st floor, no room number) [place] [id number] [phone] documented in this encounter Visit Diagnoses Diagnosis Stage 3 chronic kidney disease, unspecified whether stage 3a or 3b CKD (H) documented in this encounter Care Teams Gerentological Physiotherapist Relationship Specialty Start Date End Date Slava Edwards MD PCP - General Family Medicine 12/10/22 documented as of this encounter
--- OUTSIDE RECORDS SUMMARY | 2023-11-06 14:14 | XMS_ITS | Encounter Summary ---
Author Name Unknown Organization [place] Address [facility] [place] [address] Care Team Providers Care Quitline Counselor Name Role Phone Slava Edwards MD Primary Care Provider [phone] Encounter Details Date Type Department Care Team (Late st Contact Info) Description 12/13/2022 Telephone [facility] [address] [place] [phone] Orquidea Porter, GAEL [address] [place], [place] [phone] Social History Tobacco Use Types Packs/Day Years [...] Coronavirus/COVID-19? No / Unsure 12/13/2022 11:49 AM SASH REPAIRER documented as of this encounter Miscellaneous Notes * Telephone Encounter - Serena Baker RN - 12/17/2022 2:04 PM SASH REPAIRER Attempted to call patient regarding getting labs prior to seeing MARTY Shankar on 3/08/23 spoke with patient's who states they just had lab work done with PCP and asked that we get those labsinstead. Faxed request for records to PCP office at [phone]. Jus ELIZABETH REPAIRER * Telephone Encounter - Serena Baker RN - 12/13/2022 5:07 PM SASH REPAIRER ----- Message from Orquidea Porter NP sent at 12/13/2022 4:03 PM SASH REPAIRER ----- We should have him repeat his BMP on 12/25/22 prior to his visit with Dyan Brandt PA-C. REPAIRER documented in this encounter Plan of Treatment Upcoming Encounters Date Type Department Care Team (Late st Contact Info) Description 04/30/2024 12:30 PM CDT Appointment [facility] Specialty Care [address] [place] [address] [address] [place] [address] Greta Heller PA-C [address] [address] 04/30/2024 1:30 PM CDT Lab [address] [place] [address] 05/05/2024 9:00 AM CDT Office Visit [address] [place] [address] Greta Heller PA-C [address] [address] Agustin Snider MD [address] [address] documented as of this encounter Visit Diagnoses Not on filedocumented in this encounter Care Teams Quitline Counselor Relationship Specialty Start Date End Date Slava Edwards MD PCP - General Family Medicine 12/10/22 documented as of this encounter
--- OUTSIDE RECORDS SUMMARY | 2023-11-06 14:14 | XMS_ITS | Encounter Summary ---
Author Name Unknown Organization [place] Address [address] [place] [address] Care Team Providers Care Station Engineer Main Line Name Role Phone Slava Edwards MD Primary Care Provider [phone] Reason for Visit * Reason Comments Advance Care Planning Encounter Details Date Type Department Care Team (Latest Contact Info) Description 12/17/2022 Documentation Only [facility] [address] [facility] [address] [place] [address] Natalie Cotto, RN Advance Care Planning Social History Tobacco Use Types Packs/Day Years [...] Coronavirus/COVID-19? No / Unsure 12/13/2022 11:49 AM DIRECTOR MATERNAL CHILD documented as of this encounter Plan of Treatment Upcoming Encounters Date Type Department Care Team (Late st Contact Info) Description 04/30/2024 12:30 PM CDT Appointment [facility] Care [address] [facility] [address] [place] [phone] Greta Heller PA-C [address] [facility] [place] [address] 04/30/2024 1:30 PM CDT Lab [address] [place] [phone] 05/05/2024 9:00 AM CDT Office Visit [address] [place] [phone] Greta Heller PA-C [address] [place] [address] Agustin Snider MD [address] [address] documented as of this encounter Visit Diagnoses Not on filedocumented in this encounter Care Teams Station Engineer Main Line Relationship Specialty Start Date End Date Slava Edwards MD PCP - General Family Medicine 12/10/22 documented as of this encounter
--- OUTSIDE RECORDS SUMMARY | 2023-11-06 14:14 | XMS_ITS | Encounter Summary ---
Author Name Unknown Organization [place] Address [address] [place] [address] Care Team Providers Care Vice President Of Finance Name Role Phone Slava Edwards MD Primary Care Provider [phone] Reason for Visit * Reason Onset Date Comments Clinic Care Coordination - Post Hospital 023 Post discharge phone call Encounter Details Date Type Department Care Team (Late st Contact Info) Description 12/12/2022 Telephone [facility] Heart [address] [place] [address] Michelle Bo, RN Clinic Care Coordination - Post Hospital (Post discharge phone call) Social History Tobacco Use Types Packs/Day Years [...] suspected to have Coronavirus/COVID-19? No / Unsure 11/25/2022 8:44 AM ECHOCARDIOGRAPHER documented as of this encounter Miscellaneous Notes * Telephone Encounter - Loli Banegas RN - 12/12/2022 4:48 PM CST Spoke to patient's , reviewed Dr Palomino's recommendation to stop amlodipine. She verbalized understanding, states he already took it today but will stop it effective tomorrow. CARDIOGRAPHER * Telephone Encounter - Jacobo Palomino MD - 12/12/2022 4:35 PM ECHOCARDIOGRAPHER He should stop the norvasc as we discussed during his hospital stay. Thanks. CARDIOGRAPHER * Telephone Encounter - Michelle Bo RN - 12/12/2022 3:33 PM CST Patient was admitted to [facility] on 12/09/22 with generalized weakness, nausea and vomiting. 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 Echo showed EF of 30-35%. Left ventricular diastolic function is indeterminate. There is mod-severeglobal hypokinesia of the left ventricle. The patient exhibited frequent PVC's. Dr. Ahuja consulted and recommendations: maximizing medical therapy over the next months If LVEF does not improve, would recommend PVC suppression with Amiodarone. IV Lasix diuresed x one dose. ?? Pt was started on ABX x 2, Metoprolol and Entresto. TITLE INSPECTOR Norvasc was discontinued at time of discharge. Called patient to discuss any post hospital d/c questions, review discharge medication, and confirmf/u appts, phone answered by his whom states pt is very [place], so automatic typewriter inspector spoke with her. Medication changes were reviewed. states initially discharging MD discontinued Norvasc (which has beendiscontinued on discharge summary and pt chart) but then she verbally told pt's to continue itat time of discharge (continued on AVS). Will route this note to Dr. Palomino for further clarification. states she has continued giving pt his Norvasc as instructed. BP was 115/60 this am with HR 30-40's via pulse ox, but pt has frequent PVC's as above. Patient denied any SOB, chest pain, edema, or light headedness. RN confirmed with that patient has labs scheduled on 12/13/22 at 1200 and an OV on 12/25/22 at 1225 with BELTRAN Dyan Brandt at our [place] Office. Instructed that patient should weigh himself every AM, after waking and using the restroom, but before breakfast and medications. Call clinic for a weight gain of 2 lbs overnight or 5 lbs in a week. Low Na+ diet encouraged. Instructed to bring daily wt/BP diary and medications with to f/u OV. Dr. Palomino's Team RN phone number provided. advised to call clinic with any cardiac related questions or concerns prior to his appt, and she verbalized understanding and agreed with plan. Edwige Bo RN. CARDIOGRAPHER documented in this encounter Plan of Treatment Upcoming Encounters Date Type Department Care Team (Late st Contact Info) Description 04/30/2024 12:30 PM CDT Appointment [facility] Specialty Care [address] [place] [address] [address] [place] [address] Greta Heller PA-C [address] [address] 04/30/2024 1:30 PM CDT Lab [facility] [address] [place] [address] [address] [place] [phone] 05/05/2024 9:00 AM CDT Office Visit [address] [place] [address] Greta Heller PA-C [address] [address] Agustin Snider MD [address] [address] documented as of this encounter Visit Diagnoses Not on filedocumented in this encounter Care Teams Vice President Of Finance Relationship Specialty Start Date End Date Slava Edwards MD PCP - General Family Medicine 12/10/22 documented as of this encounter
--- OUTSIDE RECORDS SUMMARY | 2023-11-06 14:14 | XMS_ITS | Encounter Summary ---
Author Name Unknown Organization [place] Address [address] [address]. [place] [address] Care Team Providers Care Patient Financial Specialist Name Role Phone Patricia Naranjo MD Primary Care Provider [phone] Encounter Details Date Type Department Care Team (Latest Contact Info) Description 11/25/2022 Travel Social History Tobacco Use Types Packs/Day [...] Coronavirus/COVID-19? No / Unsure 11/25/2022 8:44 AM POST PARTUM NURSE documented as of this encounter Plan of Treatment Upcoming Encounters Date Type Department Care Team (Late st Contact Info) Description 04/30/2024 12:30 PM CDT Appointment [facility] Specialty Care [address] [facility] [address] [place] [address] Greta Heller PA-C [address] [address] 04/30/2024 1:30 PM CDT Lab [facility] [place] [address] [place] [address] 05/05/2024 9:00 AM CDT Office Visit [facility] [address] [place] [address] Greta Heller PA-C [address] [address] Agustin Snider MD [address] [address] documented as of this encounter Visit Diagnoses Not on filedocumented in this encounter Care Teams Patient Financial Specialist Relationship Specialty Start Date End Date Patricia Naranjo MD [facility] [address] [place] [address] PCP - General 02/13/16 12/09/22 documented as of this encounter
--- OUTSIDE RECORDS SUMMARY | 2023-11-06 14:14 | XMS_ITS | Encounter Summary ---
Author Name Unknown Organization [facility] Address [address] [place] [address] Care Team Providers Care Vein Access Technician Name Role Phone Patricia Naranjo MD Primary Care Provider [phone] Reason for Referral * Therapeutic Imaging/IR (Routine: Next available opening) - Closed Specialty Diagnoses / Procedures Referred By Juanjo wise Referred To Contact Diagnoses Hydronephrosis Procedures IR Nephrostomy Tube Change Left IR Referral Herman Rios MD [facility] [address] [place] [id number] Referral ID Status Reason Start Date Expiration Date Visits Re quested Visits Authorized [id number] Closed 11/07/2022 11/07/2023 1 1 UM CALCINER Encounter Details Date Type Department Care Team (Late st Contact Info) Description 11/25/2022 8:45 AM GYPSUM CALCINER - 11/25/2022 10:27 AM GYPSUM CALCINER Hospital Encounter [facility] [address] [place] [phone] Graeme Christianson MD [facility] [address] [place] [address] Hydronephrosis Discharge Disposition: Home or Self Care Social [...] Coronavirus/COVID-19? No / Unsure 11/25/2022 8:44 AM GYPSUM CALCINER documented as of this encounter Last Filed Vital Signs Vital Sign Reading Time Taken Comments Blood Pressure 79/50 11/25/2022 10:05 AM GYPSUM CALCINER PT PRONE Pulse 118 11/25/2022 10:05 AM GYPSUM CALCINER Temperature 36.9 ??C (98.4 ??F) 11/25/2022 9:12 AM CS T Respiratory Rate 16 11/25/2022 10:05 AM GYPSUM CALCINER Oxygen Saturation 91% 11/25/2022 10:05 AM GYPSUM CALCINER Inhaled Oxygen Concentration - - Weight 73 kg (161 lb) 11/25/2022 9:09 AM GYPSUM CALCINER Height 167.6 cm (5' 6) 11/25/2022 9:09 AM GYPSUM CALCINER Body Mass Index 25.99 11/25/2022 9:09 AM GYPSUM CALCINER documented in this encounter Discharge Instructions * Discharge Instructions* Mak Cody RN - 11/25/2022 10:15 AM GYPSUM CALCINER Images from the original note were not [...] Nausea and vomiting New or worsening symptoms [employer] last reviewed this educational content on 01/19/2020 ?? [id number] [employer] ([employer]). All rights reserved. This information is not intended as a substitute for professional medical care. Always follow your healthcare professional's instructions. UM CALCINER documented in this encounter Medications at Time of Discharge Medication Sig Dispensed Refills Start Date End Date finasteride (PROSCAR) 5 MG tablet Take 5 mg by mouth daily Managed by PCP 0 06/14/2022 hydroxyurea (HYDREA) 500 MG capsule 2 tabs/1000 mg QAM 5 days of the week. 3 tabs/1500 the other 2 days of the week. Managed by PCP/Hematology 0 tamsulosin (FLOMAX) 0.4 MG capsule Take 0.4 mg by mouth 2 times daily Managed by PCP 0 06/14/2022 ASPIRIN PO Take 81 mg by mouth daily 0 12/09/2022 doxycycline monohydrate (ADOXA) 100 MG tablet Take 1 tablet by mouth 2 times daily 0 02/05/2022 08/04/2023 hydroxyurea (HYDREA) 500 MG capsule Take 500 mg by mouth 2 times daily Alternates with 500 mg TID 0 12/09/2022 levothyroxine (SYNTHROID/LEVOTHROID) 175 MCG tablet Take 175 mcg by mouth daily Managed by PCP 0 11/23/2022 08/04/2023 metoprolol (LOPRESSOR) 25 MG tablet Take 12.5 mg by mouth 2 times daily 0 12/09/2022 OMEPRAZOLE PO Take 20 mg by mouth every morning 0 12/09/2022 POTASSIUM CITRATE PO Take 99 mEq by mouth daily 0 12/09/2022 torsemide (DEMADEX) 20 MG tablet Take 20 mg by mouth daily 0 08/02/2022 12/25/2022 documented as of this encounter Progress Notes * Orquidea Swift RN - 11/25/2022 10:24 AM CST Post Procedure Summary: Prior to the start of the procedure and with procedural staff participation, I verbally confirmed the patient???s identity using two indicators, relevant allergies, that the procedure was appropriateand matched the consent or emergent situation, and that the correct equipment/implants were available. Immediately prior to starting the procedure I conducted the Time Out with the procedural staff and re-confirmed the patient???s name, procedure, and site/side. (The Joint Commission universal protocol was followed.) Yes Sedatives: N/A Vital signs, airway and pulse oximetry were monitored and remained stable throughout the procedure and sedation was maintained until the procedure was complete. The patient was monitored by staff until sedation discharge criteria were met. Patient tolerance: Patient tolerated the procedure well with no immediate complications. Time of sedation in minutes: N/A UM CALCINER documented in this encounter Miscellaneous Notes * IR Note - Graeme Christianson MD - 11/25/2022 10:27 AM CST RADIOLOGY POST PROCEDURE NOTE Patient name: Henok Chery : 1935 Pre-procedure diagnosis: Left 12 Fr routine PCN exchange Post-procedure diagnosis: Same Procedure Date/Time: November 25, 2022 10:32 AM Procedure: 12 Fr left PCN exchange. NO SEDATION REQUIRED Estimated blood loss: 2 ml Specimen(s) collected with description: Existing 12 Fr tube. The patient tolerated the procedure well with no immediate complications. Significant findings: Please see above. See imaging dictation for procedural details. Provider name: Graeme Christianson MD Shale Miner(s):None UM CALCINER documented in this encounter Plan of Treatment Upcoming Encounters Date Type Department Care Team (Late st Contact Info) Description 04/30/2024 12:30 PM CDT Appointment [facility] [address] [place] [address] Greta Heller PA-C [address] [place] [address] 04/30/2024 1:30 PM CDT Lab [facility] [address] [place] [phone] 05/05/2024 9:00 AM CDT Office Visit [facility] [address] [place] [address] [address] [place] [address] Greta Heller PA-C [address] [place] [address] Agustin Snider MD [address] [place] [address] documented as of this encounter Procedures Procedure Name Priority Date/Time Associated Diagnosis Comments IR NEPHROSTOMY TUBE CHANGE LEFT Routine: Next available opening 11/25/2022 10:11 AM GYPSUM CALCINER Hydronephrosis documented in this encounter Results * IR Nephrostomy Tube Change Left (11/25/2022 10:11 AM GYPSUM CALCINER) Anatomical Region Laterality Modality Abdomen/Pelvis Radio Fluoroscop y, Radio Fluoroscopy Impressions 11/25/2022 3:58 PM GYPSUM CALCINER IMPRESSION: Routine 12 [facility] Helenian left percutaneous nephrostomy tube exchange. Will plan for routine exchanges every three months, without sedation unless otherwise specified. GRAEME CHRISTIANSON MD Narrative 11/25/2022 3:58 PM GYPSUM CALCINER IR NEPHROSTOMY TUBE CHANGE LEFT 11/25/2022 10:11 AM HISTORY: 87-year-old patient with history of left percutaneous nephrostomy tube, with a tube in place through the tract over the previous 12 months with intermittent routine exchanges, performed at [facility]. Request made for routine exchange, new to our system at [facility]. TECHNIQUE: Patient was brought to the interventional radiology department and informed consent obtained. Patient was placed in a prone position. The existing 12 [address] Helenian nephrostomy tube was prepped and draped in standard sterile fashion, as was the surrounding skin. 1% lidocaine was used for local anesthesia for a total of 10 mL. Spot fluoroscopy images were obtained before and after contrast administration confirming appropriate position. The tube was cut and a stiff angled Glidewire was advanced into the renal collecting system. A new 12 [address] Helenian nephrostomy tube was placed. Tube was confirmed to be in appropriate position with contrast administration. Silk suture was used to hold tube in place, and tube was placed to gravity drainage. Patient tolerated the procedure well. Sedation: None. ??Suspect patient will be able to proceed with routine exchanges without IV sedation. Fluoroscopic time: 0.5 minutes Air (Kerma): 5 mGy Local anesthetic: 10 mL of 1% lidocaine. Contrast: 10 mL of Isovue-300 administered into the left renal collecting system without complication. MEDICATIONS: 900 mg IV Cleocin. FINDINGS: Two spot fluoroscopic images confirm appropriate placement of existing nephrostomy tube as well as new tube. Procedure Note Graeme Christianson MD - 11/25/2022 IR NEPHROSTOMY TUBE CHANGE LEFT 11/25/2022 10:11 AM HISTORY: 87-year-old patient with history of left percutaneous nephrostomy tube, with a tube in place through the tract over the previous 12 months with intermittent routine exchanges, performed at [facility]. Request made for routine exchange, new to our system at [facility]. TECHNIQUE: Patient was brought to the interventional radiology department and informed consent obtained. Patient was placed in a prone position. The existing 12 [address] Helenian nephrostomy tube was prepped and draped in standard sterile fashion, as was the surrounding skin. 1% lidocaine was used for local anesthesia for a total of 10 mL. Spot fluoroscopy images were obtained before and after contrast administration confirming appropriate position. The tube was cut and a stiff angled Glidewire was advanced into the renal collecting system. A new 12 [address] Helenian nephrostomy tube was placed. Tube was confirmed to be in appropriate position with contrast administration. Silk suture was used to hold tube in place, and tube was placed to gravity drainage. Patient tolerated the procedure well. Sedation: None. Suspect patient will be able to proceed with routine exchanges without IV sedation. Fluoroscopic time: 0.5 minutes Air (Kerma): 5 mGy Local anesthetic: 10 mL of 1% lidocaine. Contrast: 10 mL of Isovue-300 administered into the left renal collecting system without complication. MEDICATIONS: 900 mg IV Cleocin. FINDINGS: Two spot fluoroscopic images confirm appropriate placement of existing nephrostomy tube as well as new tube. IMPRESSION: Routine 12 [address] Helenian left percutaneous nephrostomy tube exchange. Will plan for routine exchanges every three months, without sedation unless otherwise specified. GRAEME CHRISTIANSON MD Herman Rios MD IMG IR ORDERABLES documented in this encounter Visit Diagnoses Diagnosis Hydronephrosis documented in this encounter Administered Medications Inactive Administered Medications - up to 3 most recent administrations Medication Order MAR Action Action Date Dose Rate Site clindamycin (CLEOCIN) 900 MG/50ML infusion Starting on Fri11/25/22 at 0940, For 1 dose, Mak Cody: cabinet override clindamycin (CLEOCIN) infusion 900 mg Routine, 900 mg, Intravenous, PRE-OP/PRE-PROCEDURE, Starting on Fri11/25/22 at 0850, For 1 dose, Give dose within 1 hour PRIOR to procedure., Indications: Perioperative Pharmacoprophylaxis, IR Pre-procedure $New Bag 11/25/2022 9:43 AM GYPSUM CALCINER 900 mg 100 mL/hr lidocaine (LMX4) cream Topical, EVERY 1 HOUR PRN, pain, with VAD insertion, Starting on Fri11/25/22 at 0850, Apply at least 30 minutes prior to [...] on the same site., IR Pre-procedure lidocaine (PF) (XYLOCAINE) 1 % injection Starting on Fri11/25/22 at 0933, For 1 dose, Blanca Hernández: cabinet override lidocaine 1 % 0.1-1 mL 0.1-1 mL, Other, EVERY 1 HOUR PRN, mild pain with VAD insertion, Starting on Fri11/25/22 at 0850, MAX dose 1 mL subcutaneous OR intradermal along the side of the vein in divided doses as needed for VAD insertion. Do NOT give if patient has a history of allergy to any local anesthetic or any yazmin product. Do NOT use both lidocaine intradermal/subcutaneous injection and the lidocaine cream on the same site., IR Pre-procedure lidocaine 1 % 1-30 mL 1-30 mL, Intradermal, ONCE PRN, local anesthetic. When verbally ordered by prescriber during the procedure., Starting on Fri11/25/22 at 0850, For 1 dose, Dose to be divided into smaller volumes appropriate for the procedure. Provider to administer intradermally. Dose to be divided into smaller volumes appropriate for the procedure., IR Intra-procedure $Given 11/25/2022 10:02 AM GYPSUM CALCINER 10 mLs sodium chloride (PF) 0.9% PF flush 3 mL 3 mL, Intracatheter, EVERY 8 HOURS, First dose on Fri11/25/22 at 0900, to lock peripheral IV dormant line, IR Pre-procedure sodium chloride (PF) 0.9% PF flush 3 mL 3 mL, Intracatheter, EVERY 1 MIN PRN, line flush, other, to ensure patency or to lock dormant line, Starting on Fri11/25/22 at 0850, IR Pre-procedure sodium chloride 0.9 % bag TABLE SOLN 1 Bag, TABLE SOLN, CONTINUOUS PRN, other, Catheter prep table solution use as directed by provider., Starting on Fri11/25/22 at 0850, For 5 doses, Maximum total dose 5000 mL Nurse will document number of bags used at the end of the procedure. NOT A PRESSURE BAG, IR Intra-procedure documented in this encounter Active and Recently Administered Medications Times are shown in GYPSUM CALCINER. Scheduled Medication Order 11/23/2022 11/24/2022 11/25/2022 clindamycin (CLEOCIN) infusion 900 mg (COMPLETED) Routine, 900 mg, Intravenous, PRE-OP/PRE-PROCEDURE, Starting on Fri11/25/22 at 0850, For 1 dose, Give dose within 1 hour PRIOR to procedure., Indications: Perioperative Pharmacoprophylaxis, IR Pre-procedure 0943 ($New Bag - Pro vider: Blanca Hernández) sodium chloride (PF) 0.9% PF flush 3 mL 3 mL, Intracatheter, EVERY 8 HOURS, First dose on Fri11/25/22 at 0900, to lock peripheral IV dormant line, IR Pre-procedure 0900 (Canceled Entry - Provider: Orders Generic Provider - Comment: Automatically canceled at discontinue of medication order) PRN Medication Order 11/23/2022 11/24/2022 11/25/2022 lidocaine (LMX4) cream Topical, EVERY 1 HOUR PRN, pain, with VAD insertion, Starting on Fri11/25/22 at 0850, Apply at least 30 minutes prior to [...] mild pain with VAD insertion, Starting on Fri11/25/22 at 0850, MAX dose 1 mL subcutaneous OR intradermal along the side of the vein in divided doses as needed for VAD insertion. Do NOT give if patient has a history of allergy to any local anesthetic or any yazmin product. Do NOT use both lidocaine intradermal/subcutaneous injection and the lidocaine cream on the same site., IR Pre-procedure lidocaine 1 % 1-30 mL (COMPLETED) 1-30 mL, Intradermal, ONCE PRN, local anesthetic. When verbally ordered by prescriber during the procedure., Starting on Fri11/25/22 at 0850, For 1 dose, Dose to be divided into smaller volumes appropriate for the procedure. Provider to administer intradermally. Dose to be divided into smaller volumes appropriate for the procedure., IR Intra-procedure 1002 ($Given - Provi nidhi: Blanca Hernández) sodium chloride (PF) 0.9% PF flush 3 mL 3 mL, Intracatheter, EVERY 1 MIN PRN, line flush, other, to ensure patency or to lock dormant line, Starting on Fri11/25/22 at 0850, IR Pre-procedure sodium chloride 0.9 % bag TABLE SOLN 1 Bag, TABLE SOLN, CONTINUOUS PRN, other, Catheter prep table solution use as directed by provider., Starting on Fri11/25/22 at 0850, For 5 doses, Maximum total dose 5000 mL Nurse will document number of bags used at the end of the procedure. NOT A PRESSURE BAG, IR Intra-procedure documented in this encounter Care Teams Vein Access Technician Relationship Specialty Start Date End [place] [address] PCP - General 02/13/16 12/09/22 documented as of this encounter
--- OUTSIDE RECORDS SUMMARY | 2023-11-06 14:14 | XMS_ITS | Encounter Summary ---
Author Name Unknown Organization [facility] Address [address] [place] [address]. [place] [address] Care Team Providers Care Tv Production Assistant Name Role Phone Patricia Naranjo MD Primary Care Provider [phone] Encounter Details Date Type Department Care Team (Late st Contact Info) Description 11/12/2022 Telephone [facility] [address] [place] [phone] Janis Toth, RN Social History Tobacco Use Types Packs/Day [...] PM CDT Appointment [facility] [address] [place] [address] Greta Heller PA-C [address] [address] 04/30/2024 1:30 PM CDT Lab [facility] [place] [address] [facility] [address] [place] [address] 05/05/2024 9:00 AM CDT Office Visit [facility] [address] [place] [address] Greta Heller PA-C [address] [address] Agustin Snider MD [address] [address] documented as of this encounter Visit Diagnoses Not on filedocumented in this encounter Care Teams Tv Production Assistant Relationship Specialty Start Date End Date Patricia Naranjo MD [facility] [address] [place] [address] PCP - General 02/13/16 12/09/22 documented as of this encounter
--- OUTSIDE RECORDS SUMMARY | 2023-11-06 14:14 | XMS_ITS | Encounter Summary ---
Author Name Unknown Organization [facility] Address [address] [place] [address]. [place] [address] Care Team Providers Care Synthetic Gem Press Operator Name Role Phone Slava Edwards MD Primary Care Provider [phone] Encounter Details Date Type Department Care Team (Latest Contact Info) Description 12/13/2022 Travel Social History Tobacco Use Types Packs/Day [...] Coronavirus/COVID-19? No / Unsure 12/13/2022 11:49 AM PYROMETER TEMPERATURE REGULATOR documented as of this encounter Plan of Treatment Upcoming Encounters Date Type Department Care Team (Late st Contact Info) Description 04/30/2024 12:30 PM CDT Appointment [facility] [address] [place] [address] Greta Heller PA-C [address] [address] 04/30/2024 1:30 PM CDT Lab [facility] [place] [address] [place] [address] 05/05/2024 9:00 AM CDT Office Visit [facility] [address] [place] [address] Greta Heller PA-C [address] [address] Agustin Snider MD [address] [address] documented as of this encounter Visit Diagnoses Not on filedocumented in this encounter Care Teams Synthetic Gem Press Operator Relationship Specialty Start Date End Date Slava Edwards MD PCP - General Family Medicine 12/10/22 documented as of this encounter
--- OUTSIDE RECORDS SUMMARY | 2023-11-06 14:14 | XMS_ITS | Encounter Summary ---
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 1.09 GFRESTIMATED -- -- 67 KVNG -- -- 8.9 Recent Labs Lab 12/09/22 1203 NTBNPI 3,015* This note was completed in part using [employer] voice recognition software. Although reviewed after completion, some word and grammatical errors may occur. COILER Associated attestation - Jacobo Palomino MD - 12/10/2022 12:33 PM WIRE COILER Physician Attestation I saw and evaluated Blake Sutton as part of a shared ANODE BUILDER/PA visit. I personally reviewed the vital signs, medications, labs, and imaging. I personally performed the substantive portion of the medical decision making for this visit - please see the BELTRAN's documentation for full details. 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 Interestingly,a cardiovascular MRI subsequently demonstrated mid myocardial basal septal fibrosis. 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 Bladder cancer status post nephrostomy tube placement and XRT. Diabetes. Reported intolerances to beta-beata (hypotension) and YISSEL inhibitor therapy (renal failure). PLAN - Appreciate EP assistance. - Started on entresto yesterday, will start low dose Toprol today. - Resume torsemide tomorrow with BMP later this week. - Discharge per hospitalist team given elevated WBC count. - Please call with questions. Jacobo Palomino MD Date of Service (when I saw the patient): 12/10/22 * Aishwarya Mendez RN - 12/10/2022 12:25 AM CST RECEIVING UNIT ED HANDOFF REVIEW ED Nurse Handoff Report was reviewed by: AISHWARYA MENDEZ, RN on December 10, 2022 at 12:25 AM COILER documented in this encounter H&P Notes * Leo Zendejas MD - 12/09/2022 2:47 PM CST [facility] History and Physical - Hospitalist Service Date of Admission: 12/09/2022 Assessment & Plan Blake Sutton is a 87 year old male admitted on 12/09/2022. 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 *TTE 09/20/2022 in Care Everywhere with LVEF 20%, moderately increased LV and RV size -Inpatient -Consult cardiology -Repeat TTE -lasix -continue amlodipine 2.5mg -I&O -Daily weight -Patient and did indicate that they would like DNR/DNI CODE STATUS. 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 Indication: Bradycardias (48 hours) Code Status: DNR/DNI, discussed on admission. Okay with reversal for procedure Clinically Significant Risk Factors Present on Admission # Acute Respiratory Failure: Documented O2 saturation < 91%. Continue supplemental oxygen as needed # Overweight: Estimated body mass index is 25.99 kg/m?? as calculated from the following: Height as of 11/25/22: 1.676 m (5' 6). Weight as of 11/25/22: 73 kg (161 lb). Disposition Plan Expected Discharge Date: 12/11/2022 Leo Zendejas MD Hospitalist Service [facility] Securely message with [employer] (more info) Text page via [facility] Paging/Directory Chief Complaint Low heart rate and ashen color History is obtained from the patient, electronic health record, emergency department physician, patient's daughter and patient's spouse History of Present Illness Blake Sutton is a 87 year old male who has history of nonischemic cardiomyopathy, high PVC burden, nonobstructive CAD, polycythemia vera, bladder cancer with nephrostomy tube and need for self-catheterization, hypertension, hypothyroidism, DMT2, history of wide-complex tachycardia, CKD, beta-beata intolerance, and likely mild to moderate neurocognitive disorder. He presents to the hospital on 12/09/2022 with several days of bradycardia. His reports that ontheir oximeter at home his heart rate frequently reads between 30 and 115. When his heart rate is reading 30 he is often quite ashen and states he does not feel well. This a.m. his heart rate was persistently in the 30s, he was very ashen in color, and he had 2 episodes of nausea and vomiting. Wifereports that is never been this persistent. They do report that his symptoms have become more frequent over the last 6 months. He was previously at [facility] and was noted to have a high PVC burden and bradycardia. At that time reportedly, it was felt to be due to hypothyroidism. He is planned to meet with an field hauler on 12/17/2022 for clinic visit. Of note, patient did present to the hospital via EMS. On EMS arrival ED providers were told that the patient had been having chest pain and the patient had been started on a nitro drip. This was discontinued. Blake reports that he does well at home. She performs most of his cares or assists with them. Patient notes that he would be in a nursing facility if he did not have his . reports that patient has a history of sundowning in the hospital. Past Medical History Past Medical History: Diagnosis Date ??? Depression ??? Diabetes (H) type 2 ??? Gout ??? History of polycythemia vera 2000 ??? Hypertension ??? MRSA infection 05/17/2011 on his nose ??? Squamous cell cancer of lip ??? SVT (supraventricular tachycardia) (H) wide complex tachycardia Past Surgical History Past Surgical History: Procedure Laterality Date ??? BIOPSY ??? IR NEPHROSTOMY TUBE CHANGE LEFT 11/25/2022 Prior to Admission Medications Prior to Admission Medications Prescriptions Last Dose Informant Patient Reported? Taking? amLODIPine (NORVASC) 2.5 MG tablet Yes No Sig: Take 1 tablet by mouth daily at 2 pm aspirin (ASA) 81 MG chewable tablet Yes No Sig: Take 81 mg by mouth buPROPion (WELLBUTRIN XL) 300 MG 24 hr tablet Yes No Sig: Take 300 mg by mouth every morning cephALEXin (KEFLEX) 500 MG capsule Yes No finasteride (PROSCAR) 5 MG tablet Yes Yes Sig: Take 5 mg by mouth glipiZIDE (GLUCOTROL) 10 MG tablet Yes No Sig: Take 10 mg by mouth hydroxyurea (HYDREA) 500 MG capsule Yes No Sig: Take 500 mg by mouth 3 times daily Alternates with 500 mg 2 times daily hydroxyurea (HYDREA) 500 MG capsule Yes No Sig: Take 500 mg by mouth 2 times daily Alternates with 500 mg TID levothyroxine (SYNTHROID/LEVOTHROID) 175 MCG tablet Yes No metoprolol (LOPRESSOR) 25 MG tablet Yes No Sig: Take 12.5 mg by mouth 2 times daily omeprazole (PRILOSEC OTC) 20 MG EC tablet Yes No Sig: Take 20 mg by mouth tamsulosin (FLOMAX) 0.4 MG capsule Yes Yes Sig: Take 0.4 mg by mouth torsemide (DEMADEX) 20 MG tablet Yes Yes Sig: Take 20 mg by mouth Facility-Administered Medications: None Physical Exam Vital Signs: Temp: 97.7 ??F (36.5 ??C) Temp src: Oral BP: 124/54 Pulse: 72 Resp: 13 SpO2: (!) 89 % O2 Device: None (Room air) Oxygen Delivery: 1 LPM Weight: 0 lbs 0 oz Constitutional: Awake, alert, cooperative, no apparent distress Respiratory: Clear to auscultation bilaterally, no crackles or wheezing Cardiovascular: Irregular, normal S1 and S2, and no murmur noted. Radial palpation pulses mostly regular but with variable intensity of pulse. GI: Normal bowel sounds, soft, non-distended, non-tender Skin/Integumen: No rashes, no cyanosis, no edema Other: Patient is quite taciturn. Does not appear to have a great memory of events preceding hospitalization and of previous days. presents with most of the history. Medical Decision Making 75 MINUTES SPENT BY ME on the date of service doing chart review, history, exam, documentation & further activities per the note. Data I have personally reviewed the following data over the past 24 hrs: 19.1 (H) \ 8.8 (L) / 448 141 103 32.2 (H) / 170 (H) 4.5 30 (H) 1.09 \ Trop: 34 (H) BNP: 3,015 (H) TSH: 1.91 T4: N/A A1C: N/A Procal: 0.22 (H) CRP: N/A Lactic Acid: N/A Imaging results reviewed over the past 24 hrs: Recent Results (from the past 24 hour(s)) XR Chest 2 Views Narrative CHEST TWO VIEWS 12/09/2022 12:56 PM HISTORY: Chest pain COMPARISON: Chest x-ray on 01/28/2016 Impression IMPRESSION: PA and lateral views of the chest were obtained. Mildly enlarged cardiac silhouette. Atherosclerotic vascular calcification of the aortic knob. Bilateral basilar pulmonary opacities, could be atelectatic or infectious. No significant pleural effusion or pneumothorax. SHYANNE BECKFORD MD COILER documented in this encounter Consult Notes * Josephine Friedman RN - 12/10/2022 4:35 PM CST [facility] Received CORE Clinic Consult from Mireille Porter NP. Per record review patient admitted w/bradycardia, SOB, N/V. Patient found to have high PVC burden while inpatient and per OP record fall 2021 it was at 17%. Patient is scheduled for EP consult at [facility] 12/17/22. ECHO done 12/10 showed EF 30-35%. Cardiology recommended optimization of medical tx for cardiomyopathy and consideration of amiodarone for suppression of PVC's. He was not assessed to be a good candidate for catheter ablation. CORE RN unavailable for inpatient HF education. Cardiology follow up arranged as follows. CORE enrollment will be considered at this follow up. Future Appointments Date Time Provider Department Center 12/13/2022 12:00 PM RU LAB [facility] 12/25/2022 12:30 PM Dyan Brandt, [facility] Please call with any further questions. Josephine Friedman ANODE BUILDER [facility] Gis Database Administrator [phone] COILER * Rajni Parekh RN - 12/10/2022 4:09 PM CSTAssociated Order(s): CARE MANAGEMENT / SOCIAL WORK IP CONSULT Images from the original note were not included. Care Management Initial Consult General Information Assessment completed with: VM-chart review, PCP clinic Type of CM/SW Visit: Initial Assessment Primary Care Provider verified and updated as needed: Yes (updated to : Dr. Edwards) Readmission within the last 30 days: Reason for Consult: discharge planning Advance Care Planning: no ACP documents on file in [facility] Communication Assessment Patient's communication style: spoken language (Turkish or Bilingual) Hearing Difficulty or Deaf: yes Wear Glasses or Blind: no Cognitive Cognitive/Neuro/Behavioral: WDL Living Environment: People in home: spouse Miesha Sutton Spouse [phone] Current living Arrangements: house (address: [address] [place] [id number]) Able to return to prior arrangements: yes Family/Social Support: Care provided by: self, spouse/significant other Provides care for: no one, unable/limited ability to care for self Marital Status: Miesha Description of Support System: Supportive, Involved Current Resources: Patient receiving home care services: No Community Resources: None Equipment currently used at home: colostomy/ostomy supplies, walker, rolling Supplies currently used at home: (self-cath supplies) Employment/Financial: Employment Status: 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 Smoking Tobacco Use: Never ??? Smokeless Tobacco Use: Unknown ??? Passive Exposure: Not on file Alcohol Use: Not on file Financial Resource Strain: Not on file Food Insecurity: Not on file Transportation Needs: Not on file Physical Activity: Not on file Stress: Not on file Social Connections: Not on file Intimate Partner Violence: Not on file Depression: Not on file Housing Stability: Not on file Mental Health Status: Mental Health Status: No Current Concerns Chemical Dependency Status: Chemical Dependency Status: No Current Concerns Values/Beliefs: Spiritual, Cultural Beliefs, Hindu Practices, Values that affect care: no Additional Information: Unable to meet with pt completed chart review and contacted PCP clinic. They provide updated PCP (Dr. Slava Edwards [phone] [facility]), assisted in scheduling hospital followup (added to AVS), and provided fax number to which CM-RN forwarded discharge orders and summary. PCP Appointment: Follow up with primary care provider, Dr. Edwards, within 7 days for hospital follow- up. ??The following labs/tests are recommended: CBC and BMP in 3 days. + Primary Clinic followup was scheduled: FridayDecember 17 at 11:[address] Minor (since Dr. Edwards is out of the office ) Cardiology Appointment: Bedside RN will review with pt/family. Rajni Parekh RN, BSN, PHN [facility] Inpatient Care Management - [facility] exhaust equipment operator: [phone] daily 7:30-4:00 COILER * Jen Soniya N - 12/10/2022 2:56 PM CSTAssociated Order(s): PHARMACY LIAISON FOR MEDICATION COVERAGE CONSULT Summary: SGLT2i & Entresto coverage check Patient has Medicare D through [employer] is Tier 4 non-preferred. Jardiance --Upon receipt of RX, Discharge Pharmacy can provide 14 days free. --Patient will pay 100% of the first $505 in drugs costs (first fill will be as much as $512l) --Subsequent fills will be a $101/mo. --When total drug costs exceed $4,660, dillard will increase to a 25% coinsurance, equivalent to $159/mo. Entresto --Upon receipt of RX, Discharge Pharmacy can provide 1 mo free. --Patient will pay 100% of the first $505 in drugs costs (first fill will be as much as $525) --Subsequent fills will be $114/mo. --When total drug costs exceed $4,660, dillard will increase to a 25% coinsurance, equivalent to $179/mo. I would recommend patient consider a Medicare D plan for 2023 that has flat copays as opposed to coinsurances (percentages) in the interest of cost savings. Plans can be reviewed at medicare.gov August 03-September 25. Soniya Li Electrical Apprentice/Liaison, Discharge Pharmacy [phone] (voice or text) [email or web address] COILER * Ileana Ahuja MD - 12/10/2022 9:21 AM CSTAssociated Order(s): ELECTROPHYSIOLOGY IP CONSULT CARDIAC ELECTROPHYSIOLOGY CONSULTATION December 10, 2022 REQUESTING PROVIDER: Dr. Crow Palomino REASON FOR CONSULTATION: Frequent PVCs, cardiomyopathy HISTORY OF PRESENT ILLNESS: 87-year-old male with nonischemic cardiomyopathy, EF 25%, polycythemia vera, bladder cancer with nephrostomy tube and need for self-catheterization, HTN, hypothyroidism, diabetes mellitus type 2, CKDwho was admitted with malaise, weakness, nausea vomiting. His measured his heart rate at home with a pulse oximeter and she reports it was in the 30s. During hospitalization he has been having frequent PVCs. PVC burden was 17% on an outpatient surveillance monitor in the fall 2021. Unsurprisingly, he has been having frequent PVCs during this hospitalization as well. Because of the presence of severe LV dysfunction, Dr. Palomino has asked EP to render an opinion about PVC management.Apparently, the patient had been scheduled for outpatient EP consultation at [facility]. The patient is alert but did not have much to say during my visit with him today. He does not feel fluttering, heart skipping or other sensation that can be attributed to PVCs. No syncope. Of note, his and daughter were in the room, they seem very involved in his care. Social history: Lives with his , non-smoker, drinks occasional alcohol. DIAGNOSTIC STUDIES: Labs: Sodium 141, potassium 4.5, creatinine 1.09, BUN 32, proBNP 3015 hemoglobin A1c 6.7 troponin 35-34, TSH 1.91 12-lead ECG: Sinus rhythm with frequent PVCs, at least 2 different morphologies present, nonspecific T abnormality cMRI (01/2022): Performed at [facility]. LVEF 24% with diffuse hypokinesis, severe RV dysfunction. Eccentric LVH, severe biatrial enlargement, mild basal fibrosis IMPRESSION: 1. Frequent polymorphic PVCs. At least 3 separate morphologies on telemetry. They appear to be of LV origin. This high PVC burden probably contributes to cardiomyopathy/LV dysfunction. 2. Severe nonischemic cardiomyopathy. Previous intolerance of carvedilol. 3. 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 The reported heart rate in the 30s before admission was not real. This was explained to his and daughter. RECOMMENDATIONS: 1. Optimize medical therapy for cardiomyopathy. Okay to use low-dose metoprolol. 2. If LV function remains low after optimization of medical therapy, consider amiodarone for PVC suppression. He is not a good candidate for catheter ablation. I appreciate the opportunity to be part of this patient's care. Please feel free to call me with any questions. Moderate complexity medical decision-making. Ileana Ahuja MD, LOCATED WITHIN [facility] PHYSICAL EXAM: Vitals: BP 134/61 Pulse 71 Temp 97.3 ??F (36.3 ??C) (Oral) Resp 15 Wt 71.5 kg (157 lb 11.2 oz) SpO2 95% BMI 25.45 kg/m?? Intake/Output Summary (Last 24 hours) at 12/10/2022 0921 Last data filed at 12/10/2022 0200 Gross per 24 hour Intake 150 ml Output 1525 ml Net -1375 ml Vitals: 12/10/22 0639 Weight: 71.5 kg (157 lb 11.2 oz) Constitutional: Elderly gentleman who appears hard of hearing. Alert. Pt appears comfortable, has no CP or respiratory distress. Head: Normocephalic and atraumatic. Skin: Normal color and texture. No rashes, lesions or eruptions. Eyes: no jaundice, EOMI. ENT: Supple, normal JVP, no apparent thyroid enlargement. Lymph: No lymphadenopathy Chest/Lungs: Clear bilaterally, no rales or wheezing. Cardiac: Irregular rhythm, normal S1 and S2. No murmur, rub or gallop. GI: Normal bowel sounds. Abdomen is soft, non-tender & not distended. Extremities: Radial pulses 2+ bilaterally. No lower extremity edema is present. Neurological: CN 2-12 grossly intact. Strength in UE is normal & symmetric. Back: No CVA tenderness. REVIEW OF SYSTEMS: A complete review of system was performed and was negative with the exception of what was describedin the HPI section. CURRENT MEDICATIONS: ??? amLODIPine 2.5 mg Oral Daily ??? aspirin 81 mg Oral Daily ??? azithromycin 250 mg Oral Daily ??? buPROPion 300 mg Oral QAM ??? cefTRIAXone 2 g Intravenous Q24H ??? finasteride 5 mg Oral Daily ??? hydroxyurea 1,000 mg Oral Daily ??? insulin aspart 1-7 Units Subcutaneous TID AC ??? insulin aspart 1-5 Units Subcutaneous At Bedtime ??? levothyroxine 175 mcg Oral QAM AC ??? levothyroxine 175 mcg Oral QAM AC ??? pantoprazole 40 mg Oral Daily ??? sacubitril-valsartan 1 tablet Oral BID ??? sodium chloride (PF) 3 mL Intracatheter Q8H ??? tamsulosin 0.4 mg Oral Daily ALLERGIES Allergies Allergen Reactions ??? Beta Adrenergic Blockers Other (See Comments) Other reaction(s): Bradycardia Bradycardia ??? Penicillins PAST MEDICAL HISTORY: Past Medical History: Diagnosis [...] ??? IR NEPHROSTOMY TUBE CHANGE LEFT 11/25/2022 FAMILY HISTORY: Family History Problem Relation Age of Onset ??? Coronary Artery Disease No family hx of ??? Hypertension No family hx of SOCIAL HISTORY: Social History Socioeconomic History ??? Marital status: Tobacco Use ??? Smoking status: Never Substance and Sexual Activity ??? Alcohol use: Yes Comment: occ. Other Topics Concern ??? Special Diet Yes Comment: low carb ??? Exercise Yes Recent Lab Results: Recent Labs Lab 12/10/22 0118 12/09/22 1824 12/09/22 1203 WBC -- -- 19.1* HGB -- -- 8.8* MCV -- -- 96 PLT -- -- 448 NA -- -- 141 POTASSIUM -- -- 4.5 CHLORIDE -- -- 103 CO2 -- -- 30* BUN -- -- 32.2* CR -- -- 1.09 ANIONGAP -- -- 8 KVNG -- -- 8.9 GLC 93 164* 170* Clinically Significant Risk Factors Present on Admission # DMII: A1C = 6.7 % (Ref range: <5.7 %) within past 3 months # Overweight: Estimated body mass index is 25.45 kg/m?? as calculated from the following: Height as of 11/25/22: 1.676 m (5' 6). Weight as of this encounter: 71.5 kg (157 lb 11.2 oz). COILER * Jacobo Palomino MD - 12/09/2022 4:55 PM CSTAssociated Order(s): CARDIOLOGY IP CONSULT Cardiology Consultation Blake Sutton Date of : 1935 Age: [age] year old Date of Admission: 12/09/2022 Reason for consult: Severe nonischemic cardiomyopathy, frequent PVCs Assessment and Plan: 87-year-old gentleman with a past medical history significant for a severe nonischemic cardiomyopathy for which he underwent a comprehensive evaluation at the [facility] in early 2021, frequent PVCs who was admitted to [facility] on 12/09/2022 with generalized weakness, nausea and vomiting. His other comorbidities include polycythemia vera as well as bladder cancer with nephrostomy tube and need for self-catheterization. Cardiology were consulted for further evaluation in the context of his severe nonischemic cardiomyopathy and frequent PVCs. IMPRESSION: 1. Severe nonischemic cardiomyopathy with an LVEF of less than 30% on his most recent echocardiogram from 09/2022. 2. 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 Interestingly, a cardiovascular MRI subsequently demonstrated mid myocardial basal septal fibrosis. 3. 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 4. Bladder cancer status post nephrostomy tube placement and XRT. 5. Diabetes. 6. Reported intolerances to beta-beata (hypotension) and YISSEL inhibitor therapy (renal failure). PLAN -There certainly appears to be an element of congestive heart failure related to his current presentation, which is not surprising in the context of his severe cardiomyopathy. As far as the underlying etiology of his cardiomyopathy, this may be arrhythmogenic in nature given his scar pattern on cardiovascular MRI imaging and frequent PVCs. -From a management standpoint, I think an attempt at guideline directed medical therapy is appropriate. To that effect, I have started him on Entresto twice daily which we will start tomorrow. Given his previous history of renal failure on YISSEL inhibitors, we will need to monitor renal function closely. -From his description, he did not tolerate carvedilol in the past. Nevertheless, I think it would be reasonable to attempt low-dose beta-beata therapy with metoprolol after consultation with our electrophysiology team. -Other medications such as Aldactone and Jardiance should also be introduced as tolerated. -Regarding his PVCs, these may be related to his cardiomyopathy and not necessarily causative. Nevertheless, there does appear to be a symptomatic component and we will obtain electrophysiology consultation in this regard tomorrow. Given the duration of his cardiomyopathy he also meets criteria fora discussion regarding ICD implantation. This was a high complexity visit that required over 80 minutes of review of previous cardiac investigations and office visits, as well as a discussion with the patient and family regarding his current presentation and options for further evaluation. Chief Complaint: Irregular Heart Beat (Pt brought in by EMS on NTG drip. Pt called because he did not feel well. EMSfound pt in bigeminy with CP unrelieved with NTG.) History of Present Illness: This patient is a 87 year old male who has previously been followed by Dr. Zaman at the [facility]. He has a history of a newly diagnosed severe biventricular cardiomyopathy in early 2021 for which he underwent an extensive work-up that included coronary angiography and cardiovascular MRI imaging. Coronary angiography demonstrated mild to moderate left-sided disease with moderate to severe disease in a nondominant right coronary artery. A cardiovascular MRI demonstrated mid basal septal fibrosis. Concurrently he was also diagnosed with bladder cancer and is status post nephrostomy tube placement and XRT. In the fall of 2021 he was also noted to have frequent PVCs and was actually seen at the [facility] where he was found to have evidence of symptomatic bradycardia although he was also hypothyroid at the time. He was started on levothyroxine with plans for follow-up with cardiology. From a medical therapy standpoint, he has a reported intolerance to beta- blockers which caused hypotension (carvedilol) as well as a history of renal insufficiency on YISSEL inhibitor therapy. It does not appear that Aldactone has been attempted. Recently Jardiance was prescribed but there was concernregarding potential hypoglycemia in the context of concurrent glipizide therapy. Due to his frequent PVCs, electrophysiology consultation was scheduled for next week. Unfortunatelyhe [facility] with generalized weakness, nausea and vomiting. He was also noted to have slow heart rates on the oximeter that his family has at home. Currently he feels better and denies any chest discomfort or shortness of breath. Physical Exam: Vitals were reviewed Blood pressure 124/54, pulse 72, temperature 97.7 ??F (36.5 ??C), temperature source Oral, resp. rate 13, SpO2 (!) 89 %. Temperatures: Current - Temp: 97.7 ??F (36.5 ??C); Max - Temp Av.9 ??F (36.6 ??C) Min: 97.7 ??F (36.5 ??C) Max: 98 ??F (36.7 ??C) Respiration range: Resp Av.5 Min: 13 Max: 16 Pulse range: Pulse Av Min: 72 Max: 72 Blood pressure range: Systolic (24hrs), Av , Min:120 , Max:124 ; Diastolic (24hrs), Av, Min:54, Max:74 Pulse oximetry range: SpO2 Av.5 % Min: 86 % Max: 94 % Intake/Output Summary (Last 24 hours) at 12/09/2022 165 Last data filed at 12/09/2022 1545 Gross per 24 hour Intake -- Output 425 ml Net -425 ml Constitutional: awake, alert, cooperative, no apparent distress, and appears stated age Eyes: Lids and lashes normal, pupils equal, round and reactive to light, extra ocular muscles intact, sclera clear, conjunctiva normal Neck: supple, symmetrical, trachea midline, no JVD Back: symmetric Lungs: No increased work of breathing, good air exchange, clear to auscultation bilaterally, no crackles or wheezing Cardiovascular: Normal apical impulse, frequent premature beats, normal S1 and S2, no S3 or S4, and no murmur noted. Abdomen: non-tender Musculoskeletal: motor strength is 5 out of 5 all extremities bilaterally Neurologic: Grossly nonfocal Skin: no bruising or bleeding Additional findings: Mild bilateral lower extremity edema Past Medical History: I have reviewed this patient's past medical history Past Medical History: Diagnosis Date ??? Depression ??? Diabetes (H) type 2 ??? Gout ??? History of polycythemia vera 2000 ??? Hypertension ??? MRSA infection 05/17/2011 on his nose ??? Squamous cell cancer of lip ??? SVT (supraventricular tachycardia) (H) wide complex tachycardia Past Surgical History: I have reviewed this patient's past surgical history Past Surgical History: Procedure Laterality Date ??? BIOPSY ??? IR NEPHROSTOMY TUBE CHANGE LEFT 11/25/2022 Social History: I have reviewed this patient's social history Social History Tobacco Use ??? Smoking status: Never ??? Smokeless tobacco: Not on file Substance Use Topics ??? Alcohol use: Yes Comment: occ. Family History: I have reviewed this patient's family history Family History Problem Relation Age of Onset ??? Coronary Artery Disease No family hx of ??? Hypertension No family hx of Allergies: Allergies Allergen Reactions ??? Beta Adrenergic Blockers Other (See Comments) Other reaction(s): Bradycardia Bradycardia ??? Penicillins Medications: I have reviewed this patient's current medications (Not in a hospital admission) Current Facility-Administered Medications Ordered in [facility] Medication Dose Route Frequency Last Rate Last Admin ??? acetaminophen (TYLENOL) tablet 650 mg 650 mg Oral Q6H PRN Or ??? acetaminophen (TYLENOL) Suppository 650 mg 650 mg Rectal Q6H PRN ??? azithromycin (ZITHROMAX) 500 mg vial to attach to NS 250 mL bag 500 mg Intravenous Once 500 mg at 12/09/22 1632 ??? [START ON 12/10/2022] azithromycin (ZITHROMAX) tablet 250 mg 250 mg Oral Daily ??? bisacodyl (DULCOLAX) suppository 10 mg 10 mg Rectal Daily PRN ??? [START ON 12/10/2022] cefTRIAXone (ROCEPHIN) 2 g vial to attach to NS 100 ml bag for ADULTS or NS 50 ml bag for PEDS 2 g Intravenous Q24H ??? glucose gel 15-30 g 15-30 g Oral Q15 Min PRN Or ??? dextrose 50 % injection 25-50 mL 25-50 mL Intravenous Q15 Min PRN Or ??? glucagon injection 1 mg 1 mg Subcutaneous Q15 Min PRN ??? HYDROmorphone (DILAUDID) injection 0.2 mg 0.2 mg Intravenous Q2H PRN ??? insulin aspart (NovoLOG) injection (RAPID ACTING) 1-7 Units Subcutaneous TID AC ??? insulin aspart (NovoLOG) injection (RAPID ACTING) 1-5 Units Subcutaneous At Bedtime ??? lidocaine (LMX4) cream Topical Q1H PRN ??? lidocaine 1 % 0.1-1 mL 0.1-1 mL Other Q1H PRN ??? melatonin tablet 1 mg 1 mg Oral At Bedtime PRN ??? ondansetron (ZOFRAN ODT) ODT tab 4 mg 4 mg Oral Q6H PRN Or ??? ondansetron (ZOFRAN) injection 4 mg 4 mg Intravenous Q6H PRN ??? oxyCODONE (ROXICODONE) tablet 5 mg 5 mg Oral Q4H PRN ??? oxyCODONE IR (ROXICODONE) half-tab 2.5 mg 2.5 mg Oral Q4H PRN ??? polyethylene glycol (MIRALAX) Packet 17 g 17 g Oral Daily PRN ??? prochlorperazine (COMPAZINE) injection 5 mg 5 mg Intravenous Q6H PRN Or ??? prochlorperazine (COMPAZINE) tablet 5 mg 5 mg Oral Q6H PRN Or ??? prochlorperazine (COMPAZINE) suppository 12.5 mg 12.5 mg Rectal Q12H PRN ??? [START ON 12/10/2022] sacubitril-valsartan (ENTRESTO) 24-26 MG per tablet 1 tablet 1 tablet OralBID ??? senna-docusate (SENOKOT-S/PERICOLACE) 8.6-50 MG per tablet 1 tablet 1 tablet Oral BID PRN Or ??? senna-docusate (SENOKOT-S/PERICOLACE) 8.6-50 MG per tablet 2 tablet 2 tablet Oral BID PRN ??? sodium chloride (PF) 0.9% PF flush 3 mL 3 mL Intracatheter Q8H 3 mL at 12/09/22 1544 ??? sodium chloride (PF) 0.9% PF flush 3 mL 3 mL Intracatheter q1 min prn Current Outpatient Medications Ordered in Epic Medication ??? amLODIPine (NORVASC) 2.5 MG tablet ??? aspirin (ASA) 81 MG EC tablet ??? buPROPion (WELLBUTRIN XL) 300 MG 24 hr tablet ??? cephALEXin (KEFLEX) 500 MG capsule ??? finasteride (PROSCAR) 5 MG tablet ??? glipiZIDE (GLUCOTROL) 10 MG tablet ??? hydroxyurea (HYDREA) 500 MG capsule ??? levothyroxine (SYNTHROID/LEVOTHROID) 175 MCG tablet ??? omeprazole (PRILOSEC OTC) 20 MG EC tablet ??? tamsulosin (FLOMAX) 0.4 MG capsule ??? torsemide (DEMADEX) 20 MG tablet ??? vitamin D3 (CHOLECALCIFEROL) 50 mcg (2000 units) tablet Review of Systems: The 10 point Review of Systems is negative other than noted in the HPI Data: All laboratory data reviewed Results for orders placed or performed during the hospital encounter of 12/09/22 (from the past 24 hour(s)) EKG 12 lead Result Value Ref Range Systolic Blood Pressure mmHg Diastolic Blood Pressure mmHg Ventricular Rate 75 BPM Atrial Rate 75 BPM MO Interval 156 ms QRS Duration 94 ms QT 404 ms QTc 451 ms P Harrells 32 degrees R AXIS -2 degrees T Harrells 93 degrees Interpretation ECG Sinus rhythm with frequent Premature ventricular complexes in a pattern of bigeminy ST & T wave abnormality, consider lateral ischemia Abnormal ECG When compared with ECG of 28-JAN-2016 11:50, Premature ventricular complexes are now Present Non-specific change in ST segment in Anterior leads T wave inversion now evident in Anterolateral leads Confirmed by GENERATED REPORT, COMPUTER ([id number]), story editor Kat Stubbs ([id number]) on 12/09/2022 1:59:28PM CBC with platelets differential Narrative The following orders were created for panel order CBC with platelets differential. Procedure Abnormality Status --------- ------ CBC with platelets and d...[[id number]] Abnormal Final result Please view results for these tests on the individual orders. Basic metabolic panel Result Value Ref Range Sodium 141 136 - 145 mmol/L Potassium 4.5 3.4 - 5.3 mmol/L Chloride 103 98 - 107 mmol/L Carbon Dioxide (CO2) 30 (H) 22 - 29 mmol/L Anion Gap 8 7 - 15 mmol/L Urea Nitrogen 32.2 (H) 8.0 - 23.0 mg/dL Creatinine 1.09 0.67 - 1.17 mg/dL Calcium 8.9 8.8 - 10.2 mg/dL Glucose 170 (H) 70 - 99 mg/dL GFR Estimate 67 >60 mL/min/1.73m2 Troponin T, High Sensitivity Result Value Ref Range Troponin T, High Sensitivity 35 (H) <=22 ng/L Nt probnp inpatient (BNP) Result Value Ref Range N terminal Pro BNP Inpatient 3,015 (H) 0 - 1,800 pg/mL CBC with platelets and differential Result Value Ref Range WBC Count 19.1 (H) 4.0 - 11.0 10e3/uL RBC Count 3.10 (L) 4.40 - 5.90 10e6/uL Hemoglobin 8.8 (L) 13.3 - 17.7 g/dL Hematocrit 29.8 (L) 40.0 - 53.0 % MCV 96 78 - 100 fL MCH 28.4 26.5 - 33.0 pg MCHC 29.5 (L) 31.5 - 36.5 g/dL RDW 20.1 (H) 10.0 - 15.0 % Platelet Count 448 150 - 450 10e3/uL % Neutrophils 89 % % Lymphocytes 2 % % Monocytes 3 % % Eosinophils 2 % % Basophils 1 % % Immature Granulocytes 3 % NRBCs per 100 WBC 0 <1 /100 Absolute Neutrophils 17.1 (H) 1.6 - 8.3 10e3/uL Absolute Lymphocytes 0.4 (L) 0.8 - 5.3 10e3/uL Absolute Monocytes 0.5 0.0 - 1.3 10e3/uL Absolute Eosinophils 0.4 0.0 - 0.7 10e3/uL Absolute Basophils 0.1 0.0 - 0.2 10e3/uL Absolute Immature Granulocytes 0.6 (H) <=0.4 10e3/uL Absolute NRBCs 0.0 10e3/uL Magnesium Result Value Ref Range Magnesium 2.2 1.7 - 2.3 mg/dL TSH with free T4 reflex Result Value Ref Range TSH 1.91 0.30 - 4.20 uIU/mL Procalcitonin Result Value Ref Range Procalcitonin 0.22 (H) <0.05 ng/mL Hemoglobin A1c Result Value Ref Range Hemoglobin A1C 6.7 (H) <5.7 % XR Chest 2 Views Narrative CHEST TWO VIEWS 12/09/2022 12:56 PM HISTORY: Chest pain COMPARISON: Chest x-ray on 01/28/2016 Impression IMPRESSION: PA and lateral views of the chest were obtained. Mildly enlarged cardiac silhouette. Atherosclerotic vascular calcification of the aortic knob. Bilateral basilar pulmonary opacities, could be atelectatic or infectious. No significant pleural effusion or pneumothorax. SHYANNE BECKFORD MD Troponin T, High Sensitivity Result Value Ref Range Troponin T, High Sensitivity 34 (H) <=22 ng/L EKG results: Sinus rhythm with PVCs. COILER documented in this encounter ED Notes * Marci Solis RN - 12/09/2022 10:31 PM CST Family remaining at bedside to be with pt as they say he sundowns very bad at night. COILER * Alicia Silva RN - 12/09/2022 3:00 PM CST [facility] ED Nurse Handoff Report ED Chief complaint: Irregular Heart Beat (Pt brought in by EMS on NTG drip. Pt called because he did not feel well. EMS found pt in bigeminy with CP unrelieved with NTG.) ED Diagnosis: Final diagnoses: None Code Status: Full Code Allergies: Allergies Allergen Reactions ??? Beta Adrenergic Blockers Other (See Comments) Other reaction(s): Bradycardia Bradycardia ??? Penicillins Patient Story: 87 year old male who presents with irregular heart beat. The patient reports chest pain this morning. Per EMS, the patient's felt a pulse of 30 and became concerned and called forEMS. En route, EMS started a nitroglycerin drip. Patient also recounts vomiting today. He denies any fever, cough, diaphoresis, or shortness of breath. Patient is later joined by daughter and , who adds that there was never complaint of chest painor shortness of breath this morning. Instead, the patient's pulse was oscillating between the 40s and one hundred teens, and then the patient became very dizzy, after which she could never find the patient's pulse to be above 40, causing worry and prompting her to call for EMS. PT HAS ELEVated tropand poss pneumonia on XR. Focused Assessment: Results for orders placed or performed during the hospital encounter of 12/09/22 XR Chest 2 Views Status: None Narrative CHEST TWO VIEWS 12/09/2022 12:56 PM HISTORY: Chest pain COMPARISON: Chest x-ray on 01/28/2016 Impression IMPRESSION: PA and lateral views of the chest were obtained. Mildly enlarged cardiac silhouette. Atherosclerotic vascular calcification of the aortic knob. Bilateral basilar pulmonary opacities, could be atelectatic or infectious. No significant pleural effusion or pneumothorax. SHYANNE BECKFORD MD Basic metabolic panel Status: Abnormal Result Value Ref Range Sodium 141 136 - 145 mmol/L Potassium 4.5 3.4 - 5.3 mmol/L Chloride 103 98 - 107 mmol/L Carbon Dioxide (CO2) 30 (H) 22 - 29 mmol/L Anion Gap 8 7 - 15 mmol/L Urea Nitrogen 32.2 (H) 8.0 - 23.0 mg/dL Creatinine 1.09 0.67 - 1.17 mg/dL Calcium 8.9 8.8 - 10.2 mg/dL Glucose 170 (H) 70 - 99 mg/dL GFR Estimate 67 >60 mL/min/1.73m2 Troponin T, High Sensitivity Status: Abnormal Result Value Ref Range Troponin T, High Sensitivity 35 (H) <=22 ng/L Nt probnp inpatient (BNP) Status: Abnormal Result Value Ref Range N terminal Pro BNP Inpatient 3,015 (H) 0 - 1,800 pg/mL CBC with platelets and differential Status: Abnormal Result Value Ref Range WBC Count 19.1 (H) 4.0 - 11.0 10e3/uL RBC Count 3.10 (L) 4.40 - 5.90 10e6/uL Hemoglobin 8.8 (L) 13.3 - 17.7 g/dL Hematocrit 29.8 (L) 40.0 - 53.0 % MCV 96 78 - 100 fL MCH 28.4 26.5 - 33.0 pg MCHC 29.5 (L) 31.5 - 36.5 g/dL RDW 20.1 (H) 10.0 - 15.0 % Platelet Count 448 150 - 450 10e3/uL % Neutrophils 89 % % Lymphocytes 2 % % Monocytes 3 % % Eosinophils 2 % % Basophils 1 % % Immature Granulocytes 3 % NRBCs per 100 WBC 0 <1 /100 Absolute Neutrophils 17.1 (H) 1.6 - 8.3 10e3/uL Absolute Lymphocytes 0.4 (L) 0.8 - 5.3 10e3/uL Absolute Monocytes 0.5 0.0 - 1.3 10e3/uL Absolute Eosinophils 0.4 0.0 - 0.7 10e3/uL Absolute Basophils 0.1 0.0 - 0.2 10e3/uL Absolute Immature Granulocytes 0.6 (H) <=0.4 10e3/uL Absolute NRBCs 0.0 10e3/uL Magnesium Status: Normal Result Value Ref Range Magnesium 2.2 1.7 - 2.3 mg/dL TSH with free T4 reflex Status: Normal Result Value Ref Range TSH 1.91 0.30 - 4.20 uIU/mL Procalcitonin Status: Abnormal Result Value Ref Range Procalcitonin 0.22 (H) <0.05 ng/mL EKG 12 lead Status: None Result Value Ref Range Systolic Blood Pressure mmHg Diastolic Blood Pressure mmHg Ventricular Rate 75 BPM Atrial Rate 75 BPM MO Interval 156 ms QRS Duration 94 ms QT 404 ms QTc 451 ms P Harrells 32 degrees R AXIS -2 degrees T Harrells 93 degrees Interpretation ECG Sinus rhythm with frequent Premature ventricular complexes in a pattern of bigeminy ST & T wave abnormality, consider lateral ischemia Abnormal ECG When compared with ECG of 28-JAN-2016 11:50, Premature ventricular complexes are now Present Non-specific change in ST segment in Anterior leads T wave inversion now evident in Anterolateral leads Confirmed by GENERATED REPORT, COMPUTER ([id number]), story editor Kat Stubbs ([id number]) on 12/09/2022 1:59:28PM CBC with platelets differential Status: Abnormal Narrative The following orders were created for panel order CBC with platelets differential. Procedure Abnormality Status --------- ------ CBC with platelets and d...[[id number]] Abnormal Final result Please view results for these tests on the individual orders. Treatments and/or interventions provided: MIKE SNYDER Patient's response to treatments and/or interventions: To be done/followed up on inpatient unit: MONITOR Does this patient have any cognitive concerns?: NO Activity level - Baseline/Home: Independent Activity Level - Current: Stand with Assist Patient's Preferred language: Turkish Psych Assistant Needed?: No Isolation: None Infection: Not Applicable Patient tested for COVID 19 prior to admission: NO Bariatric?: No Vital Signs: Vitals: 12/09/22 1145 BP: 120/74 Pulse: 72 Resp: 16 Temp: 98 ??F (36.7 ??C) TempSrc: Oral SpO2: (!) 86% Cardiac Rhythm: Was the PSS-3 completed: Yes What interventions are required if any? Family Comments: FAMILY AT BEDSIDE OBS brochure/video discussed/provided to patient/family: [place] of person given brochure if not patient: Relationship to patient: For the majority of the shift this patient's behavior was Green. Behavioral interventions performed were . ED NURSE PHONE NUMBER: [phone] COILER * Morgan Webster RN - 12/09/2022 11:39 AM CST Bed: ED13 Expected date: 12/09/22 Expected time: 11:25 AM Means of arrival: Ambulance Comments: 213 87m weak, chest pain ETA 1135 COILER * Preeti Lima MD - 12/09/2022 11:39 AM CST History Chief Complaint: Irregular Heart Beat The history is provided by the patient, the EMS personnel and the spouse. Blake Sutton is an 87 year old male with a history of bladder cancer and hydronephrosis with left sided percutaneous nephrostomy, nonischemic cardiomyopathy (EF 20% September 2022), and PVCs presenting with irregular heart beat. Per EMS and initial report from the patient, he is here for chest pain for which paramedics initiated a nitroglycerin infusion. However, the patient's arrives later and clarifies he never complained of chest pain but she called paramedics because he was lightheaded and had an episode of vomiting. This is in the context of bradycardia at home her pulse oximeter that would not come up above the 30s-40s bpm. She remarks his pulse has been erratic for the last 3 days between 30s and 110s. Blake denies fever, cough, diaphoresis, or shortness of breath. Notably, Blake has an appointment scheduled with electrophysiology at [place] this month, but she wants to transfer care to [place] as [place] is too far of a commute. He has previously been hospitalized at [place] but she does not want to return there because they told us there was nothing they coulddo for him. Finally it should be noted he is on Keflex for some redness around 2 scabs on his left ankle. Independent Historian: as above. Review of External Notes: Reviewed Nurse Triage note from three days ago when patient called for a wound on his left leg. Reviewed left nephrostomy tube change from 10/22/22 note. Also reviewed visit with cardiology in September 2022 and Kumar admission from July 2022. ROS: Review of Systems Constitutional: Negative for diaphoresis and fever. Respiratory: Negative for cough and shortness of breath. Cardiovascular: Positive for palpitations (erratic heart rate per ). Negative for chest pain. Gastrointestinal: Positive for vomiting. Neurological: Positive for light-headedness. All other systems reviewed and are negative. Allergies: Beta blockers Penicillins Medications: Hydrea Lopressor Omeprazole Potassium citrate Snythroid Proscar Flomax Demadex Cipro Past Medical History: Bladder cancer Diabetes Gout Polycythemia vera Hypertension MRSA infection SCC SVT Hypothyroidism Premature ventricular beat Sinus bradycardia CHF Acute and chronic respiratory failure depression Delirium Degeneration lumbar disc Urinary retention Hearing loss Tricuspid regurgitation Past Surgical History: Biopsy Nephrostomy tube change, left Mohs surgery Social History: Presents to the ED alone via EMS. Lives at home with his , who cares for him. Later joined by and daughter. Physical Exam Patient Vitals for the past 24 hrs: BP Temp Temp src Pulse Resp SpO2 Weight 12/09/22 1700 -- -- -- -- -- 96 % -- 12/09/22 1600 132/58 -- -- 71 20 95 % -- 12/09/22 1540 -- -- -- -- -- (!) 89 % -- 12/09/22 1539 -- -- -- -- -- 93 % -- 12/09/22 1538 -- 97.7 ??F (36.5 ??C) Oral -- -- -- -- 12/09/22 1400 124/54 -- -- 72 13 94 % -- 12/09/22 1145 120/74 98 ??F (36.7 ??C) Oral 72 16 (!) 86 % -- Physical Exam General: Well-developed and well-nourished. Well appearing elderly man. Hard of hearing. Head: Atraumatic. Eyes: Conjunctivae, lids, and sclerae are normal. ENT: Wearing a facemask. Hearing aids. Neck: Supple. Normal range of motion. CV: Regular rate and rhythm. Normal heart sounds with no murmurs, rubs, or gallops detected. Resp: No respiratory distress. Clear to auscultation bilaterally without decreased breath sounds, wheezing, rales, or rhonchi. GI: Soft. Non-distended. Non-tender. MS: Normal ROM. Trace bilateral lower extremity edema. Left-sided percutaneous nephrostomy drainingclear yellow urine. Skin: Warm. Non-diaphoretic. No pallor. 2 small scabs on the lateral aspect of the left distal lower leg/ankle without surrounding erythema or warmth. Neuro: Awake and alert. Normal strength. Psych: Normal mood and affect. Normal speech. Vitals reviewed. Emergency Department Course EKG Indication: Palpitations Time: 1148 Rate 75 bpm. MO interval 156. QRS duration 94. QT/QTc 404/451. Sinus rhythm with frequent premature ventricular complexes in a pattern of bigeminy. ST and T wave abnormality, consider lateral ischemia. No acute ST changes. PVCs new as compared to prior, dated 01/28/16. Imaging: XR Chest 2 Views Final Result IMPRESSION: PA and lateral views of the chest were obtained. Mildly enlarged cardiac silhouette. Atherosclerotic vascular calcification of the aortic knob. Bilateral basilar pulmonary opacities, could be atelectatic or infectious. No significant pleural effusion or pneumothorax. SHYANNE BECKFORD MD Report per radiology Laboratory: Labs Ordered and Resulted from Time of ED Arrival to Time of ED Departure BASIC METABOLIC PANEL - Abnormal Result Value Sodium 141 Potassium 4.5 Chloride 103 Carbon Dioxide (CO2) 30 (*) Anion Gap 8 Urea Nitrogen 32.2 (*) Creatinine 1.09 Calcium 8.9 Glucose 170 (*) GFR Estimate 67 TROPONIN T, HIGH SENSITIVITY - Abnormal Troponin T, High Sensitivity 35 (*) NT PROBNP INPATIENT - Abnormal N terminal Pro BNP Inpatient 3,015 (*) CBC WITH PLATELETS AND DIFFERENTIAL - Abnormal WBC Count 19.1 (*) RBC Count 3.10 (*) Hemoglobin 8.8 (*) Hematocrit 29.8 (*) MCV 96 MCH 28.4 MCHC 29.5 (*) RDW 20.1 (*) Platelet Count 448 % Neutrophils 89 % Lymphocytes 2 % Monocytes 3 % Eosinophils 2 % Basophils 1 % Immature Granulocytes 3 NRBCs per 100 WBC 0 Absolute Neutrophils 17.1 (*) Absolute Lymphocytes 0.4 (*) Absolute Monocytes 0.5 Absolute Eosinophils 0.4 Absolute Basophils 0.1 Absolute Immature Granulocytes 0.6 (*) Absolute NRBCs 0.0 PROCALCITONIN - Abnormal Procalcitonin 0.22 (*) TROPONIN T, HIGH SENSITIVITY - Abnormal Troponin T, High Sensitivity 34 (*) MAGNESIUM - Normal Magnesium 2.2 TSH WITH FREE T4 REFLEX - Normal TSH 1.91 Emergency Department Course & Assessments: Interventions: furosemide (LASIX) injection 60 mg (60 mg Intravenous Given 12/09/22 1449) cefTRIAXone (ROCEPHIN) 2 g vial to attach to NS 100 ml bag for ADULTS or NS 50 ml bag for PEDS (2 gIntravenous New Bag 12/09/22 1536) 1632 Azithromycin 500 mg IV Independent Interpretation (X-rays, CTs, rhythm strip): 1316 Chest XR. Consultations/Discussion of Management or Tests: [address] Zendejas, Hospitalist, who agreed to accept the patient. Social Determinants of Health affecting care: - Supportive family - Getting care at several different health systems Assessments: 1150 I obtained history and examined the patient as noted above. 1436 I rechecked the patient and explained findings. Patient recounts he had been taking Keflex forthe wounds on his legs. Prepared for admission. Disposition: The patient was admitted to the hospital under the care of Dr. Zendejas. Impression & Plan Medical Decision Making: Blake is an 87 year old man presenting via EMS because he got dizzy and had vomiting at home today and his felt his pulse would not come up from the 30s or 40s. It sounds like he frequently has bradycardia that resolves. Blake himself is a very poor historian and denies any significant symptoms. Certainly his care is complicated by going to multiple health systems ([place], [place], [place], and now [place]). However, it appears he has severe nonischemic cardiomyopathy and frequent PVC burden (17%). He appears well here without bradycardia. I strongly suspect his bradycardia at home was simply due to frequent PVCs and compensatory pauses. EKG here shows ventricular bigeminy. There are no ischemic changes. Troponin is minimally elevated at 35 and repeat is unchanged. He has trace bilateral lower extremity edema and BNP is elevated at 3,015. I suspect his CHF is playing a role in his presentation and he was given 60 mg IV Lasix. However, CXR shows bilateral pulmonary opacities which could be atelectasis or infection. Because he has leukocytosis to 19.1 and procalcitonin of 0.22, I will treat as infection with Rocephin and azithromycin. He has mild hypoxia which is likely multifactorial - he has chronic nighttime hypoxia on nighttime O2 and now with possible pneumonia and CHF exacerbation. This improved with nasal cannula O2. The remainder of his work up is unremarkable without kidney injury or electrolyte derangement. Anemia to 8.8 is unchanged from baseline in August 2022. TSH is normal. This man requires hospitalization for attention to his cardiac disease. It appears it has been recommended he see EP for possible pacemaker and this may need to be pursued. I discussed findings and plan with the patient and his and answered all their questions. They verbalized understanding and are amenable. I discussed the patient's case with Dr. Zendejas, hospitalist, who accepts admission and has no further orders. Diagnosis: ICD-10-CM 1. Frequent PVCs I49.3 2. Elevated brain natriuretic peptide (BNP) level R79.89 3. Opacities of both lungs present on chest x-ray R91.8 4. Leukocytosis, unspecified type D72.829 5. Chronic anemia D64.9 6. Elevated procalcitonin R79.89 7. Elevated troponin R77.8 8. Hypoxia R09.02 Scribe Disclosure: I, Jarret Morales, am serving as a scribe at 11:47 AM on 12/09/2022 to document services personally performed by Preeti Lima MD based on my observations and the provider's statements to me. 12/09/2022 Preeti Lima MD Dixson, Kylie S, MD 12/10/22 0943 COILER documented in this encounter Miscellaneous Notes * Plan of Care - Danika Porter RN - 12/10/2022 4:35 PM CST VSS, not in pain at time of discharge. Pt states all belongings and paperwork are accounted for. Medications have been filled at in house pharmacy and are with pt at time of discharge. Discharge education complete including medications, follow up appointments, when to call MD, and all instructions.Pt verbalized understanding. All questions answered. Family here to drive pt home. COILER * Utilization Review - Manny Corral MD - 12/10/2022 1:55 PM CST Admission Status; Secondary Review Determination Under the authority of the Utilization Management Committee, the utilization review process indicated a secondary review on the above patient. The review outcome is based on review of the medical records, discussions with staff, and applying clinical experience noted on the date of the review. (x) Inpatient Status Appropriate - This patient's medical care is consistent with medical management for inpatient care and reasonable inpatient medical practice. RATIONALE FOR DETERMINATION The patient is an 87-year-old male admitted on 12/09/2022. Patient was brought to the ED because of increasing shortness of breath and associated nausea and vomiting. He was noted to have a heart ratein the 30s which ended up being likely due to bigeminal PVCs causing severe bradycardia. Patient had an echocardiogram done which showed ejection fraction in the 30s. Patient does have a history of pulmonary hypertension. Also, the patient is noted to have by lateral bibasilar opacities on chest x-ray and is started on ceftriaxone and azithromycin likely for the possibility of community-acquired pneumonia. Patient received a cardiology consultation due to bradycardia and CHF with recommendations for medication changes. Patient also has significant anemia with a hemoglobin of 8.8 and also of concern is an elevated white blood cell count of 19.1 worrisome for pneumonia. Patient is currently requiring 2 L of O2 to maintain O2 sats in the low 90s. Procalcitonin is in the 3000 range. MCG criteria this was filled with concerns of possible pneumonia exacerbating borderline oxygenation issues requiring O2 and questionable altered mental status along with cardiac arrhythmia. Based onabove, agree with continuation of inpatient status. The severity of illness, intensity of service provided, expected LOS and risk for adverse outcome make the care complex, high risk and appropriate for hospital admission. The information on this document is developed by the utilization review team in order for the business office to ensure compliance. This only denotes the appropriateness of proper admission status and does not reflect the quality of care rendered. The definitions of Inpatient Status and Observation Status used in making the determination above are those provided in the CMS Coverage Manual, Chapter 1 and Chapter 6, section 70.4. Sincerely, Jeff Corral MD Physician Advisor Utilization Review/ Case Management [facility]. COILER * Plan of Care - Aishwarya Mendez RN - 12/10/2022 5:04 AM CST Adm from ED. A&Ox4 - forgetful (time) and varied during night. Hx of sundowning, family at bedside. Patient frequently moving in bed and taking tele off. Sleeves on arms to alleviate picking skinand IV. Tele: SR w PVCs. SBP 140s. NC 2L >90%. No CP or SOB. Chronic wound found on L axilles. Nephrostomy WDL and clean, dry, and intact. Assist of 1 JONEL walker. LS wet and dim. Plan: cards c/s, EP c/s, echo COILER * Pharmacy-Admission Medication History - Salvador Mary, [facility] - 12/09/2022 3:56 PM CST Pharmacy Medication History Admission medication history interview status for the 12/09/2022 admission is complete. See [facility] admission navigator for prior to admission medications Location of Interview: Patient room Medication history sources: Patient's family/friend (), Surescripts and Care Everywhere Significant changes made to the medication list: Added: vitamin D Discontinued: - potassium - metoprolol ( states patient has never been on this but it shows up on his medlist) Changed: - hydroxyurea 500 mg three times daily alternate with 500 mg twice daily--> 1000 mg every morning - aspirin chewable tablet--> enteric coated In the past week, patient estimated taking medication this percent of the time: greater than 90% Medication Affordability: Not including over the counter (OTC) medications, was there a time in the past 12 months when you did not take your medications as prescribed because of cost?: No (Per , patient has have to swtich medications a couple of times due to cost of medications to be able to afford.) Additional medication history information: none Medication reconciliation completed by provider prior to medication history? No Time spent in this activity: 30 minutes Prior to Admission medications Medication Sig Last Dose Taking? Auth Provider [facility] End Date amLODIPine (NORVASC) 2.5 MG tablet Take 1 tablet by mouth daily 12/09/2022 at am Yes Reported, Patient Yes aspirin (ASA) 81 MG EC tablet Take 81 mg by mouth daily 12/09/2022 at am Yes Reported, Patient buPROPion (WELLBUTRIN XL) 300 MG 24 hr tablet Take 300 mg by mouth every morning 12/09/2022 at am Yes Reported, Patient Yes cephALEXin (KEFLEX) 500 MG capsule Take 500 mg by mouth 3 times daily For 10 days (started 12/06/22 evening) 12/08/2022 at pm Yes Reported, Patient finasteride (PROSCAR) 5 MG tablet Take 5 mg by mouth daily 12/08/2022 at am Yes Reported, Patient glipiZIDE (GLUCOTROL) 10 MG tablet Take 10 mg by mouth 2 times daily (before meals) 12/09/2022 at amYes Reported, Patient Yes hydroxyurea (HYDREA) 500 MG capsule Take 1,000 mg by mouth daily 12/09/2022 at am Yes Unknown, Entered By History Yes levothyroxine (SYNTHROID/LEVOTHROID) 175 MCG tablet Take 175 mcg by mouth daily 12/08/2022 at am YesReported, Patient Yes omeprazole (PRILOSEC OTC) 20 MG EC tablet Take 20 mg by mouth daily 12/09/2022 at am Yes Reported, Patient tamsulosin (FLOMAX) 0.4 MG capsule Take 0.4 mg by mouth daily 12/08/2022 at am Yes Reported, Patient torsemide (DEMADEX) 20 MG tablet Take 20 mg by mouth daily 12/08/2022 at am Yes Reported, Patient Yes 08/02/23 vitamin D3 (CHOLECALCIFEROL) 50 mcg (2000 units) tablet Take 1 tablet by mouth every other day 12/08/2022 at am Yes Unknown, Entered By History The information provided in this note is only as accurate as the sources available at the time of update(s) COILER documented in this encounter Plan of Treatment Upcoming Encounters Date Type Department Care Team (Late st Contact Info) Description 04/30/2024 12:30 PM CDT Appointment [facility] [address] [address] [place] [phone] Greta Heller PA-C [address] [id number] 04/30/2024 1:30 PM CDT Lab [facility] [address] [address] [place] [phone] 05/05/2024 9:00 AM CDT Office Visit [facility] [address] [place] [phone] Greta Heller PA-C [address] [address] Agustin Snider MD [address] [id number] documented as of this encounter Procedures Procedure Name Priority Date/Time Associated Diagnosis Comments CBC WITH PLATELETS Timed 12/10/2022 11 :14 AM WIRE COILER ECHO COMPLETE WITH CONTRAST Routine 12/10/2022 8:44 AM WIRE COILER GLUCOSE BY METER Routine 12/10/2022 1:18 AM WIRE COILER GLUCOSE BY METER STAT 12/09/2022 6:24 PM WIRE COILER URINE MACROSCOPIC WITH REFLEX TO MICRO STAT 12/09/2022 5:32 PM WIRE COILER TROPONIN T, HIGH SENSITIVITY STAT 12/09/2022 2:37 PM WIRE COILER XR CHEST 2 VIEWS STAT 12/09/2022 12:5 6 PM WIRE COILER CBC WITH PLATELETS AND DIFFERENTIAL STAT 12/09/2022 12:03 PM WIRE COILER TROPONIN T, HIGH SENSITIVITY STAT 12/09/2022 12:03 PM WIRE COILER PROCALCITONIN Add-On 12/09/2022 12:03 PM WIRE COILER CBC WITH PLATELETS & DIFFERENTIAL STAT 12/09/2022 12:03 PM WIRE COILER TSH WITH FREE T4 REFLEX STAT 12/09/2022 12:03 PM WIRE COILER NT PROBNP INPATIENT STAT 12/09/2022 1 2:03 PM WIRE COILER MAGNESIUM STAT 12/09/2022 12:03 PM WIRE COILER HEMOGLOBIN A1C Add-On 12/09/2022 12:03 PM WIRE COILER BASIC METABOLIC PANEL STAT 12/09/2022 12:03 PM WIRE COILER EKG 12-LEAD, TRACING ONLY STAT 12/09/2022 11:48 AM WIRE COILER documented in this encounter Results * (ABNORMAL) Basic metabolic panel (12/13/2022 11:56 AM WIRE COILER) Sodium 136 136 - 145 mmol/L 12/13/2022 12:29 PM WIRE COILER LABORATORY Potassium 4.6 3.4 - 5.3 mmol/L 12/13/2022 12:29 PM WIRE COILER LABORATORY Chloride 99 98 - 107 mmol/L 12/13/2022 12:29 PM WIRE COILER LABORATORY Carbon Dioxide (CO2) 28 22 - 29 mmol/L 12/13/2022 12:29 PM WIRE COILER LABOR[facility] Anion Gap 9 7 - 15 mmol/L 12/13/2022 12:29 PM WIRE COILER LABORATORY Urea Nitrogen 30.0(H) 8.0 - 23.0 mg/dL 12/13/2022 12:29 PM WIRE COILER LABORAT[facility] Creatinine 1.18(H) 0.67 - 1.17 mg/dL 12/13/2022 12:29 PM WIRE COILER LABORAT[facility] Calcium 8.5(L) 8.8 - 10.2 mg/dL 12/13/2022 12:29 PM WIRE COILER LABORATORY Glucose 312(H) 70 - 99 mg/dL 12/13/2022 12:29 PM WIRE COILER LABORAT[facility] GFR Estimate 60(L) >60 mL/min/1.7 3m2 12/13/2022 12:29 PM WIRE COILER RH LABORATORY Comment:eGFR calculated 2020 CKD-EPI equation. Blood STRUCTURE OF RIGHT UPPER LIMB / Unknown Venipuncture / Unknown 12/13/2022 11:56 AM WIRE COILER 12/13/2022 11:57 AM WIRE COILER Orquidea Porter NP LAB - BLOOD ORDERABL ES LABORATORY [facility] Lab [address] Lab (1st floor, no room number) [place] [address], [place] [phone] * (ABNORMAL) CBC with platelets (12/10/2022 11:14 AM WIRE COILER) WBC Count 18.8(H) 4.0 - 11.0 10e3/uL 12/10/2022 11:30 AM [facility] RBC Count 3.11(L) 4.40 - 5.90 10e6/uL 12/10/2022 11:30 AM [facility] Hemoglobin 8.8(L) 13.3 - 17.7 g/dL 12/10/2022 11:30 AM [facility] Hematocrit 30.0(L) 40.0 - 53.0 % 12/10/2022 11:30 AM [facility] MCV 97 78 - 100 fL 12/10/2022 11:30 AM [facility] MCH 28.3 26.5 - 33.0 pg 12/10/2022 11:30 AM [facility] MCHC 29.3(L) 31.5 - 36.5 g/dL 12/10/2022 11:30 AM [facility] RDW 20.2(H) 10.0 - 15.0 % 12/10/2022 11:30 AM [facility] Platelet Count 482(H) 150 - 450 10e3/uL 12/10/2022 11:30 AM [facility] Blood STRUCTURE OF RIGHT UPPER LIMB / Unknown Venipuncture / Unknown 12/10/2022 11:14 AM WIRE COILER 12/10/2022 11:25 AM WIRE COILER Lyly Moreira MD LAB - BLOOD ORDER RAFFY LABORATORY [facility] [address] 1[address] floor, [address] [place] [address], [place] [phone] * ECHO COMPLETE WITH CONTRAST (12/10/2022 8:44 AM WIRE COILER) LVEF 30-35% CARDIOLOGY RESULTS Anatomical Region Laterality Modality Echocardiography 12/10/2022 8:13 AM WIRE COILER Narrative 12/10/2022 12:17 PM [facility] [id number]^CONNIE^LEO^LINDA [facility] Echocardiography Laboratory [address] [place] [address] Name: BLAKE SUTTON : 1935 Study Date: 12/10/2022 08:13 AM Age: 87 yrs Gender: Male Patient Location: [facility] Reason For Study: Palpitations Ordering Physician: LEO ZENDEJAS Referring Physician: LEO ZENDEJAS Performed By: Vivek Ho BSA: 1.8 m2 Height: 66 in Weight: 157 lb HR: 38 BP: 134/61 mmHg Procedure Complete Portable Echo Adult. Optison ([facility] #[id number]) given intravenously. Interpretation Summary The left ventricle is normal in size. The visual ejection fraction is 30-35%. Left ventricular diastolic function is indeterminate. There is mod-severe global hypokinesia of the left ventricle. The patient exhibited frequent PVCs. Left Ventricle The left ventricle is normal in size. There is normal left ventricular wall thickness. The visual ejection fraction is 30-35%. Left ventricular diastolic function is indeterminate. There is mod-severe global hypokinesia of the left ventricle. Right Ventricle The right ventricle is normal in size and function. Atria The left atrium is mild to moderately dilated. Right atrial size is normal. The right atrium is mild to moderately dilated. There is no color Doppler evidence of an atrial shunt. Mitral Valve The mitral valve leaflets are mildly thickened. There is mild to moderate mitral annular calcification. There is mild (1+) mitral regurgitation. Tricuspid Valve There is mild to moderate (1-2+) tricuspid regurgitation. The right ventricular systolic pressure is approximated at 42.5 mmHg plus the right atrial pressure. Aortic Valve The aortic valve is not well visualized. No aortic regurgitation is present. Pulmonic Valve There is trace pulmonic valvular regurgitation. Vessels Borderline aortic root dilatation. The ascending aorta is Borderline dilated. Pericardium There is no pericardial effusion. Rhythm Sinus rhythm was noted. The patient exhibited frequent PVCs. MMode/2D Measurements & Calculations IVSd: 1.1 cm LVIDd: 4.6 cm LVIDs: 3.7 cm LVPWd: 1.0 cm FS: 19.8 % LV mass(C)d: 169.7 grams LV mass(C)dI: 94.0 grams/m2 Ao root diam: 3.8 cm LA dimension: 3.3 cm asc Aorta Diam: 3.6 cm LA/Ao: 0.87 LVOT diam: 2.1 cm LVOT area: 3.5 cm2 LA Volume (BP): 79.6 ml LA Volume Index (BP): 44.2 ml/m2 RWT: 0.45 Doppler Measurements & Calculations Ao V2 max: 224.8 cm/sec Ao max P.0 mmHg Ao V2 mean: 154.2 cm/sec Ao mean P.5 mmHg Ao V2 VTI: 57.0 cm ANSHU(I,D): 0.75 cm2 ANSHU(V,D): 0.98 cm2 LV V1 max P.6 mmHg LV V1 max: 62.6 cm/sec LV V1 VTI: 12.1 cm SV(LVOT): 42.5 ml SI(LVOT): 23.6 ml/m2 PA acc time: 0.12 sec TR max jareth: 325.5 cm/sec TR max P.5 mmHg AV Jareth Ratio (DI): 0.28 ANSHU Index (cm2/m2): 0.41 Report approved by: Rodrigue Puentes 12/10/2022 12:17 PM Procedure Note Robert Badillo MD - 12/10/2022 [id number]^CONNIE^LEO^LINDA [facility] Echocardiography Laboratory [address] [place] [address] Name: BLAKE SUTTON : 1935 Study Date: 12/10/2022 08:13 AM Age: 87 yrs Gender: Male Patient Location: [facility] Reason For Study: Palpitations Ordering Physician: LEO ZENDEJAS Referring Physician: LEO ZENDEJAS Performed By: Vivek Ho BSA: 1.8 m2 Height: 66 in Weight: 157 lb HR: 38 BP: 134/61 mmHg Procedure Complete Portable Echo Adult. Denilson ([facility] #[id number]) givenintravenously. Interpretation Summary The left ventricle is normal in size. The visual ejection fraction is 30-35%. Left ventricular diastolic function is indeterminate. There is mod-severe global hypokinesia of the left ventricle. The patient exhibited frequent PVCs. Left Ventricle The left ventricle is normal in size. There is normal left ventricularwall thickness. The visual ejection fraction is 30-35%. Left ventriculardiastolic function is indeterminate. There is mod-severe global hypokinesia of theleft ventricle. Right Ventricle The right ventricle is normal in size and function. Atria The left atrium is mild to moderately dilated. Right atrial size isnormal. The right atrium is mild to moderately dilated. There is no colorDoppler evidence of an atrial shunt. Mitral Valve The mitral valve leaflets are mildly thickened. There is mild tomoderate mitral annular calcification. There is mild (1+) mitral regurgitation. Tricuspid Valve There is mild to moderate (1-2+) tricuspid regurgitation. The right ventricular systolic pressure is approximated at 42.5 mmHg plus theright atrial pressure. Aortic Valve The aortic valve is not well visualized. No aortic regurgitation ispresent. Pulmonic Valve There is trace pulmonic valvular regurgitation. Vessels Borderline aortic root dilatation. The ascending aorta is Borderlinedilated. Pericardium There is no pericardial effusion. Rhythm Sinus rhythm was noted. The patient exhibited frequent PVCs. MMode/2D Measurements & Calculations IVSd: 1.1 cm LVIDd: 4.6 cm LVIDs: 3.7 cm LVPWd: 1.0 cm FS: 19.8 % LV mass(C)d: 169.7 grams LV mass(C)dI: 94.0 grams/m2 Ao root diam: 3.8 cm LA dimension: 3.3 cm asc Aorta Diam: 3.6 cm LA/Ao: 0.87 LVOT diam: 2.1 cm LVOT area: 3.5 cm2 LA Volume (BP): 79.6 ml LA Volume Index (BP): 44.2 ml/m2 RWT: 0.45 Doppler Measurements & Calculations Ao V2 max: 224.8 cm/sec Ao max P.0 mmHg Ao V2 mean: 154.2 cm/sec Ao mean P.5 mmHg Ao V2 VTI: 57.0 cm ANSHU(I,D): 0.75 cm2 ANSHU(V,D): 0.98 cm2 LV V1 max P.6 mmHg LV V1 max: 62.6 cm/sec LV V1 VTI: 12.1 cm SV(LVOT): 42.5 ml SI(LVOT): 23.6 ml/m2 PA acc time: 0.12 sec TR max jareth: 325.5 cm/sec TR max P.5 mmHg AV Jareth Ratio (DI): 0.28 ANSHU Index (cm2/m2): 0.41 Report approved by: Rodrigue Puentes 12/10/2022 12:17 PM Leo Zendejas MD CV ECHO ORDERABL ES * Glucose by meter (12/10/2022 1:18 AM WIRE COILER) GLUCOSE BY METER POCT 93 70 - 99 mg/dL 12/10/2022 1:25 AM WIRE COILER LABORATORY POC Blood, Capillary BLOOD SPECIMEN / Unknown 12/10/2022 1:18 AM WIRE COILER 12/10/2022 1:25 AM WIRE COILER Leo Zendejas MD LAB - BEAKER POC T LABORATORY POC [facility] Lab [address] 1[address] floor, [address] [place] [address], [place] [phone] * (ABNORMAL) Glucose by meter (12/09/2022 6:24 PM WIRE COILER) GLUCOSE BY METER POCT 164(H) 70 - 99 mg/dL 12/09/2022 6:31 PM WIRE COILER LABORATORY POC Blood, Capillary BLOOD SPECIMEN / Unknown 12/09/2022 6:24 PM WIRE COILER 12/09/2022 6:31 PM WIRE COILER Leo Zendejas MD LAB - BEAKER POC T LABORATORY POC [facility] Lab [address] 1[address] floor, [address] [place] [address], [place] [phone] * (ABNORMAL) *UA reflex to Microscopic (ED Lab POCT Only 3-11) (12/09/2022 5:32 PM WIRE COILER) Color Urine Light Yellow Colorless, Straw, Light Yellow, Yellow 12/09/2022 5:48 PM WIRE COILER LABORATORY Appearance Urine Clear Clear 12/09/19 23 5:48 PM WIRE COILER LABORATORY Glucose Urine Negative Negative mg/dL 12/09/2022 5:48 PM WIRE COILER LABORATORY Bilirubin Urine Negative Negative 3 5:48 PM WIRE COILER LABORATORY Ketones Urine Negative Negative mg/dL 12/09/2022 5:48 PM WIRE COILER LABORATORY Specific [place] Urine 1.011 1.003 - 1.035 12/09/2022 5:48 PM WIRE COILER LABORATORY Blood Urine Negative Negative 12/09/2022 5:48 PM WIRE COILER LABORATORY pH Urine 6.5 5.0 - 7.0 12/09/2022 5:48 PM WIRE COILER LABORATORY Protein Albumin Urine Negative Negative mg/dL 12/09/2022 5:48 PM WIRE COILER LABORATORY Urobilinogen Urine Normal Normal, 2.0 mg/dL 12/09/2022 5:48 PM WIRE COILER LABORATORY Nitrite Urine Negative Negative 12/09/2022 5:48 PM WIRE COILER LABORATORY Leukocyte Esterase Urine Large(A) Negative 12/09/2022 5:48 PM WIRE COILER LABORATORY RBC Urine 5(H) <=2 /HPF 12/09/2022 5:48 PM WIRE COILER LABORATORY WBC Urine 59(H) <=5 /HPF 12/09/2022 5:48 PM WIRE COILER LABORATORY Squamous Epithelials Urine 3(H) <=1 /HPF 12/09/2022 5:48 PM WIRE COILER LABORATORY Mucus Urine Present(A) None Seen /LPF 12/09/2022 5:48 PM WIRE COILER LABORATORY Hyaline Casts Urine 2 <=2 /LPF 12/09/2022 5:48 PM WIRE COILER LABORATORY Urine MID-STREAM URINE SPECIMEN / Unknown Non-blood Collection / Unknown 12/09/2022 5:32 PM WIRE COILER 12/09/2022 5:38 PM WIRE COILER Jacobo Palomino MD LAB - URINE ORDERAB LES LABORATORY [facility] Lab [address] 1[address] floor, [address] [place] [address], [facility] [phone] * (ABNORMAL) Troponin T, High Sensitivity (12/09/2022 2:37 PM WIRE COILER) Troponin T, High Sensitivity 34(H) <=22 ng/L 12/09/2022 3:31 PM WIRE COILER LABORATORY Comment: Either a High Sensitivity Troponin T baseline (0 hours) value = 100 ng/mL, or an increase in High Sensitivity Troponin T = 7 ng/mL at 2 hours compared to 0 hours (2-0 hours), suggests myocardial injury, and urgent clinical attention is required. ?? If the 2-0 hours increase is<7 ng/mL, a High Sensitivity Troponin T result above gender-specific reference ranges warrants further evaluation. Recommendations for further evaluation include correlation with clinical decision-making tool (e.g., HEART), a 3rd High Sensitivity Troponin T test 2 hours after the 2nd (a 20% change from baseline would represent concern), admission for observation, close PCC/cardiology follow-up, or urgent outpatient provocative testing. Blood STRUCTURE OF LEFT UPPER LIMB / Unknown Venipuncture / Unknown 12/09/2022 2:37 PM WIRE COILER 12/09/2022 2:43 PM WIRE COILER Preeti Lima MD LAB - BLOOD ORDERABL ES LABORATORY [facility] Lab [address] 1[address] floor, [address] [place] [address], [facility] [phone] * XR Chest 2 Views (12/09/2022 12:56 PM WIRE COILER) Anatomical Region Laterality Modality Chest Digital Radiogra phy Impressions 12/09/2022 1:38 PM WIRE COILER IMPRESSION: PA and lateral views of the chest were obtained. Mildly enlarged cardiac silhouette. Atherosclerotic vascular calcification of the aortic knob. Bilateral basilar pulmonary opacities, could be atelectatic or infectious. No significant pleural effusion or pneumothorax. SHYANNE BECKFORD MD Narrative 12/09/2022 1:38 PM WIRE COILER CHEST TWO VIEWS ?12/09/2022 12:56 PM HISTORY: Chest pain COMPARISON: Chest x-ray on 01/28/2016 Procedure Note Shyanne Beckford MD - 12/09/2022 CHEST TWO VIEWS 12/09/2022 12:56 PM HISTORY: Chest pain COMPARISON: Chest x-ray on 01/28/2016 IMPRESSION: PA and lateral views of the chest were obtained. Mildly enlarged cardiac silhouette. Atherosclerotic vascular calcification of the aortic knob. Bilateral basilar pulmonary opacities, could be atelectatic or infectious. No significant pleural effusion or pneumothorax. SHYANNE BECKFORD MD Preeti Lima MD IMG DIAGNOSTIC IMAGI NG ORDERABLES * (ABNORMAL) Hemoglobin A1c (12/09/2022 12:03 PM WIRE COILER) Hemoglobin A1C 6.7(H) <5.7 % 12/09/2022 4:29 PM WIRE COILER LABORATORY Comment: Normal <5.7% Prediabetes 5.7-6.4% ?? Diabetes 6.5% or higher Note: Adopted from ADA consensus guidelines. Blood BLOOD SPECIMEN / Unknown Venipuncture / Unknown 12/09/2022 12:03 PM WIRE COILER 12/09/2022 12:09 PM WIRE COILER Leo Zendejas MD LAB - BLOOD [facility]ERRI FLOR[facility] Organization Address City/State/ZIP Co de Phone Number LABORATORY [facility] [facility] [address] 1[address] floor, [address] [place] [address], [facility] [phone] * (ABNORMAL) Procalcitonin (12/09/2022 12:03 PM WIRE COILER) Procalcitonin 0.22(H) <0.05 ng/mL 12/09/2022 2:05 PM [facility] Comment: Interpretation and Recommendations <0.05 ng/mL Normal Very low risk of bacterial infection. Strongly discourage antibiotics. 0.05-0.24 ng/mL Low risk of systemic infection. Local bacterial infection possible. Assess other clinical features of infection. Discourage antibiotics. 0.25-0.49 ng/mL Possible early systemic infection or localized infection Encourage antibiotics only in correct clinical context. Consider obtaining blood cultures or other relevant cultures. Recheck PCT in 6-12 hours to ensure baseline low level. If repeat PCT is rising, consider early systemic infection and consider starting antibiotics. 0.50-1.99 ng/mL Moderate risk of systemic infection. Recommend antibiotics. Evaluate culture results and clinical features to target antibacterial therapy. Obtain blood cultures and other relevant cultures if not done. If empiric antibiotics were started, recheck PCT in: ? 2 days to guide antibiotic de-escalation. ? Discontinue or de-escalate antibiotics when PCT concentration is <80% of peak or abs PCT <0.5. If empiric antibiotics were NOT started, recheck PCT in: ? 6-24 hours to re-evaluate need for antibiotics. ?? 2.00-9.99 ng/mL High risk for progression to severe sepsis. Strongly recommend initiating or continuing antibiotics. Evaluate culture results and clinical features to target antibacterial therapy. Obtain blood cultures and other relevant cultures if not done. Repeat PCT in 2 days to guide antibiotic de-escalation. Consider de-escalating antibiotics when PCT concentration is <80% of peak or abs PCT < 0.5. Greater than or equal to 10 ng/mL Very high likelihood of severe sepsis or septic shock. Strongly recommend initiating or continuing antibiotics. Evaluate culture results and clinical features to target antibacterial therapy. Obtain blood cultures and other relevant cultures if not done. Repeat PCT in 2 days to guide antibiotic de-escalation. Consider de-escalating antibiotics when PCT concentration is <80% of peak or abs PCT < 1.0. Blood BLOOD SPECIMEN / Unknown Venipuncture / Unknown 12/09/2022 12:03 PM WIRE COILER 12/09/2022 12:09 PM WIRE COILER Preeti Lima MD LAB - BLOOD ORDERABL ES LABORATORY [facility] [address] 1[address], [address] [place] [address], [facility] [phone] * TSH with free T4 reflex (12/09/2022 12:03 PM WIRE COILER) TSH 1.91 0.30 - 4.20 uIU/mL 12/09/2022 2:05 PM [facility] Blood BLOOD SPECIMEN / Unknown Venipuncture / Unknown 12/09/2022 12:03 PM WIRE COILER 12/09/2022 12:09 PM WIRE COILER Preeti Lima MD LAB - BLOOD ORDERABL ES LABORATORY [facility] [address], [address] [place] [address], [facility] [phone] * Magnesium (12/09/2022 12:03 PM WIRE COILER) Pathologist [facility] Magnesium 2.2 1.7 - 2.3 mg/dL 12/09/2022 12:59 PM [facility] Blood BLOOD SPECIMEN / Unknown Venipuncture / Unknown 12/09/2022 12:03 PM WIRE COILER 12/09/2022 12:09 PM WIRE COILER Preeti Lima MD LAB - BLOOD ORDERABL ES LABORATORY [facility] [address], [address] [place] [address], [facility] [phone] * (ABNORMAL) CBC with platelets and differential (12/09/2022 12:03 PM WIRE COILER) Pathologist [facility] WBC Count 19.1(H) 4.0 - 11.0 10e3/uL 12/09/2022 12:12 PM [facility] RBC Count 3.10(L) 4.40 - 5.90 10e6/uL 12/09/2022 12:12 PM [facility] Hemoglobin 8.8(L) 13.3 - 17.7 g/dL 12/09/2022 12:12 PM [facility] Hematocrit 29.8(L) 40.0 - 53.0 % 12/09/2022 12:12 PM [facility] MCV 96 78 - 100 fL 12/09/2022 12:12 PM [facility] MCH 28.4 26.5 - 33.0 pg 12/09/2022 12:12 PM [facility] MCHC 29.5(L) 31.5 - 36.5 g/dL 12/09/2022 12:12 PM [facility] RDW 20.1(H) 10.0 - 15.0 % 12/09/2022 12:12 PM [facility] Platelet Count 448 150 - 450 10e3/uL 12/09/2022 12:12 PM [facility] % Neutrophils 89 % 12/09/2022 12:12 PM [facility] % Lymphocytes 2 % 12/09/2022 12:12 PM [facility] % Monocytes 3 % 12/09/2022 12:12 PM [facility] % Eosinophils 2 % 12/09/2022 12:12 PM [facility] % Basophils 1 % 12/09/2022 12:12 PM [facility] % Immature Granulocytes 3 % 12/09/2022 12:12 PM [facility] NRBCs per 100 WBC 0 <1 /100 023 12:12 PM [facility] Absolute Neutrophils 17.1(H) 1.6 - 8.3 10e3/uL 12/09/2022 12:12 PM [facility] Absolute Lymphocytes 0.4(L) 0.8 - 5.3 10e3/uL 12/09/2022 12:12 PM [facility] Absolute Monocytes 0.5 0.0 - 1.3 10e3/uL 12/09/2022 12:12 PM [facility] Absolute Eosinophils 0.4 0.0 - 0.7 10e3/uL 12/09/2022 12:12 PM [facility] Absolute Basophils 0.1 0.0 - 0.2 10e3/uL 12/09/2022 12:12 PM [facility] Absolute Immature Granulocytes 0.6(H) <=0.4 10e3/uL 12/09/2022 12:12 PM [facility] Absolute NRBCs 0.0 10e3/uL 12/09/2022 12:12 PM [facility] Blood BLOOD SPECIMEN / Unknown Venipuncture / Unknown 12/09/2022 12:03 PM WIRE COILER 12/09/2022 12:09 PM WIRE COILER Preeti Lima MD LAB - BLOOD ORDERABL ES LABORATORY [facility] [address], [address] [place] [address], [facility] [phone] * (ABNORMAL) Nt probnp inpatient (BNP) (12/09/2022 12:03 PM WIRE COILER) N terminal Pro BNP Inpatient 3,015(H) 0 - 1,800 pg/mL 12/09/2022 12:59 PM [facility] Comment: Reference range shown and results flagged as abnormal are suggested inpatient cut points for confirming diagnosis if CHF in an acute setting. Establishing a baseline value for each individual patient is useful for follow-up. An inpatient or emergency department NT-proPBNP <300 pg/mL effectively rules out acute CHF, with 99% negative predictive value. The outpatient non-acute reference range for ruling out CHF is: 0-125 pg/mL (age 18 to less than 75) 0-450 pg/mL (age 75 yrs and older) Blood BLOOD SPECIMEN / Unknown Venipuncture / Unknown 12/09/2022 12:03 PM WIRE COILER 12/09/2022 12:09 PM WIRE COILER Preeti Lima MD LAB - BLOOD ORDERABL ES LABORATORY [facility] [address], [address] [place] [address], [facility] [phone] * (ABNORMAL) Troponin T, High Sensitivity (12/09/2022 12:03 PM [facility]) [facility] Troponin T, High Sensitivity 35(H) <=22 ng/L 12/09/2022 12:59 PM [facility] Comment: Either a High Sensitivity Troponin T baseline (0 hours) value = 100 ng/mL, or an increase in High Sensitivity Troponin T = 7 ng/mL at 2 hours compared to 0 hours (2-0 hours), suggests myocardial injury, and urgent clinical attention is required. ?? If the 2-0 hours increase is<7 ng/mL, a High Sensitivity Troponin T result above gender-specific reference ranges warrants further evaluation. Recommendations for further evaluation include correlation with clinical decision-making tool (e.g., HEART), a 3rd High Sensitivity Troponin T test 2 hours after the 2nd (a 20% change from baseline would represent concern), admission for observation, close PCC/cardiology follow-up, or urgent outpatient provocative testing. Blood BLOOD SPECIMEN / Unknown Venipuncture / Unknown 12/09/2022 12:03 PM WIRE COILER 12/09/2022 12:09 PM WIRE COILER Preeti Lima MD LAB - BLOOD ORDERABL ES LABORATORY [facility] [address], [address] [place] [address], [facility] [phone] * (ABNORMAL) Basic metabolic panel (12/09/2022 12:03 PM WIRE COILER) [facility] Signature Sodium 141 136 - 145 mmol/L 12/09/2022 12:59 PM [facility] Potassium 4.5 3.4 - 5.3 mmol/L 12/09/2022 12:59 PM [facility] Chloride 103 98 - 107 mmol/L 12/09/2022 12:59 PM [facility] Carbon Dioxide (CO2) 30(H) 22 - 29 mmol/L 12/09/2022 12:59 PM [facility] Anion Gap 8 7 - 15 mmol/L 12/09/2022 12:59 PM [facility] Urea Nitrogen 32.2(H) 8.0 - 23.0 mg/dL 12/09/2022 12:59 PM [facility] Creatinine 1.09 0.67 - 1.17 mg/dL 12/09/2022 12:59 PM [facility] Calcium 8.9 8.8 - 10.2 mg/dL 12/09/2022 12:59 PM [facility] Glucose 170(H) 70 - 99 mg/dL 12/09/2022 12:59 PM [facility] GFR Estimate 67 >60 mL/min/1.7 3m2 12/09/2022 12:59 PM [facility] Comment:eGFR calculated usin g 2020 CKD-EPI equation. Blood BLOOD SPECIMEN / Unknown Venipuncture / Unknown 12/09/2022 12:03 PM WIRE COILER 12/09/2022 12:09 PM WIRE COILER Preeti Lima MD LAB - BLOOD ORDERABL ES LABORATORY [facility] [address], [address] [place] [address], [facility] [phone] * EKG 12 lead (12/09/2022 11:48 AM WIRE COILER) Systolic Blood Pressure mmHg RADIOLOGY RESULTS Diastolic Blood Pressure mmHg RADIOLOGY RESULTS Ventricular Rate 75 BPM RAD IOLOGY RESULTS Atrial Rate 75 BPM RADIOLOG Y RESULTS MO Interval 156 ms RADIOLOG Y RESULTS QRS Duration 94 ms RADIOLO GY RESULTS QT 404 ms RADIOLOGY RESULTS QTc 451 ms RADIOLOGY RESULTS P Harrells 32 degrees RADIOLOGY RESULTS R AXIS -2 degrees RADIOLOGY RESULTS T Harrells 93 degrees RADIOLOGY RESULTS Interpretation ECG Sinus rhythm with frequent Premature ventricular complexes in a pattern of bigeminy ST & T wave abnormality, consider lateral ischemia Abnormal ECG When compared with ECG of 28-JAN-2016 11:50, Premature ventricular complexes are now Present Non-specific change in ST segment in Anterior leads T wave inversion now evident in Anterolateral leads Confirmed by GENERATED REPORT, COMPUTER ([id number]), story editor Kat Stubbs ([id number]) on 12/09/2022 1:59:28 PM RADIOLOGY RESULTS 12/09/2022 11:4 8 AM WIRE COILER 12/09/2022 1:59 PM WIRE COILER Preeti Lima MD ECG ORDERABLES RADIOLOGY RESULTS documented in this encounter Visit Diagnoses Diagnosis Bradycardia- Primary Other specified cardiac dysrhythmias Frequent PVCs Other premature beats Elevated brain natriuretic peptide (BNP) level Other nonspecific findings on examination of blood Opacities of both lungs present on chest x-ray Leukocytosis, unspecified type Chronic anemia Anemia, unspecified Elevated procalcitonin Elevated troponin Other abnormal blood chemistry Hypoxia Hypoxemia Stage 3 chronic kidney disease, unspecified whether stage 3a or 3b CKD (H) 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) documented in this encounter Admitting Diagnoses Diagnosis Bradycardia Other specified cardiac dysrhythmias documented in this encounter Administered Medications Inactive Administered Medications - up to 3 most recent administrations Medication Order MAR Action Action Date Dose Rate Site acetaminophen (TYLENOL) Suppository 650 mg 650 mg, Rectal, EVERY 6 HOURS PRN, mild pain, other, and adjunct with moderate or severe pain or per patient request, Starting on 12/09/22 at 1543, Alternate with ibuprofen if ordered. Maximum acetaminophen dose from all sources = 75 mg/kg/day not to exceed 4 grams/day. acetaminophen (TYLENOL) tablet 650 mg 650 mg, Oral, EVERY 6 HOURS PRN, mild pain, other, and adjunct with moderate or severe pain or per patient request, Starting on Fri12/09/22 at 1543, Alternate with ibuprofen if ordered. Maximum acetaminophen dose from all sources = 75 mg/kg/day not to exceed 4 grams/day. amLODIPine (NORVASC) tablet 2.5 mg 2.5 mg, Oral, DAILY, First dose on Fri12/10/22 at 0800 $Given 12/10/2022 9:38 AM WIRE COILER 2.5 mg aspirin EC tablet 81 mg 81 mg, Oral, DAILY, First dose on Fri12/10/22 at 0800, DO NOT CRUSH. $Given 12/10/2022 9:35 AM WIRE COILER 81 mg azithromycin (ZITHROMAX) 500 mg vial to attach to NS 250 mL bag STAT, 500 mg, Intravenous, ONCE, On Fri12/09/22 at 1440, For 1 dose, Indications: Community Acquired Pneumonia $New Bag 12/09/2022 4:32 PM WIRE COILER 500 mg azithromycin (ZITHROMAX) tablet 250 mg Routine, 250 mg, Oral, DAILY, First dose on Fri12/10/22 at 0800, For 4 days, Indications: Community Acquired Pneumonia $Given 12/10/2022 9:36 AM WIRE COILER 250 mg buPROPion (WELLBUTRIN XL) 24 hr tablet 300 mg 300 mg, Oral, EVERY MORNING, First dose on Fri12/10/22 at 0800, DO NOT CRUSH. $Given 12/10/2022 9:36 AM WIRE COILER 300 mg cefTRIAXone (ROCEPHIN) 2 g vial to attach to NS 100 ml bag for ADULTS or NS 50 ml bag for PEDS STAT, 2 g, Intravenous, ONCE, On Fri12/09/22 at 1440, For 1 dose, Indications: Community Acquired Pneumonia $New Bag 12/09/2022 3:36 PM WIRE COILER 2 g cefTRIAXone (ROCEPHIN) 2 g vial to attach to NS 100 ml bag for ADULTS or NS 50 ml bag for PEDS STAT, 2 g, Intravenous, EVERY 24 HOURS, First dose on Fri12/10/22 at 0900, Indications: Community Acquired Pneumonia $New Bag 12/10/2022 9:38 AM WIRE COILER 2 g dextrose 50 % injection 25-50 mL 25-50 mL, Intravenous, EVERY 15 MIN PRN, low blood sugar, Administer over 1-5 Minutes, Starting on Fri12/09/22 at 1602, Use if have IV access, BG less than 70 mg/dL and meet dose criteria below: Dose if conscious and alert (or disorientated) and NPO = 25 mL Dose if unconscious / not alert = 50 mL Give first dose for initial blood glucose less than 70 mg/dL. If blood glucose at 15 minute recheck is less than or equal to 100 mg/dL continue to administer carbohydrate treatment every 15 minutes, as needed, based on blood glucose and assessment parameters until blood glucose level is above 100 mg/dL. Vesicant. finasteride (PROSCAR) tablet 5 mg 5 mg, Oral, DAILY, First dose on Fri12/09/22 at 1925, *Do not handle tablets if you are * $Given 12/10/2022 9:37 AM WIRE COILER 5 mg $Given 12/09/2022 8:14 PM WIRE COILER 5 mg furosemide (LASIX) injection 60 mg 60 mg, Intravenous, ONCE, Administer over 1-3 Minutes, On Fri12/09/22 at 1400, For 1 dose $Given 12/09/2022 2:49 PM WIRE COILER 60 mg glucagon injection 1 mg 1 mg, Subcutaneous, EVERY 15 MIN PRN, low blood sugar, May repeat x 1 only, Starting on Fri12/09/22 at 1602, May give SQ or IM. ONLY use glucagon IF patient has NO IV access AND is UNABLE to swallow AND blood glucose is LESS than or EQUAL to 50 mg/dL. glucose gel 15-30 g 15-30 g, Oral, EVERY 15 MIN PRN, low blood sugar, Starting on Fri12/09/22 at 1602, Give first dose for initial blood glucose less than 70 mg/dL per the dosing instructions below. If blood glucose at 15 minute rechecks is still less than or equal to 100 mg/dL, continue to administer doses per blood glucose parameters every 15 minutes, as needed, until blood glucose level is above 100 mg/dL. Dosing Instructions: ~If patient is conscious and able to swallow and NO enteral tube For initial BG 51-69mg/dL OR 15 minute recheck BG 51- 100 mg/dL - give 15 g For BG less than or equal to 50 mg/dL - give 30 g ~ If Enteral tube For initial BG 51-69mg/dL OR 15 minute recheck BG 51- 100 mg/dL - give apple juice 120 mL (4 oz or 15 g of CHO) via enteral tube For BG less than or equal to 50 mg/dL - Give apple juice 240 mL (8 oz or 30 g of CHO) via enteral tube ~Oral gel is preferable for conscious and able to swallow patient. ~IF gel unavailable or patient refuses may provide apple juice per Enteral tube dosing instructions. Document juice on I and O flowsheet. hydroxyurea (HYDREA) capsule 1,000 mg 1,000 mg, Oral, DAILY, First dose on Fri12/10/22 at 0800, Indications: Polycythemia Vera, Do not crush May require hepatic and/or renal dose or frequency adjustments. See reference link for guidelines. $Given 12/10/2022 9:35 AM WIRE COILER 1,000 mg insulin aspart (NovoLOG) injection (RAPID ACTING) 1-7 Units, Subcutaneous, 3 TIMES DAILY BEFORE MEALS, First dose on Fri12/09/22 at 1700, Correction Scale - MEDIUM INSULIN RESISTANCE DOSING Do Not give Correction Insulin if Pre-Meal BG less than 140. For Pre-Meal BG 140 - 189 give 1 unit. For Pre-Meal BG 190 - 239 give 2 units. For Pre-Meal BG 240 - 289 give 3 units. For Pre-Meal BG 290 - 339 give 4 units. For Pre-Meal BG 340- 399 give 5 units. For Pre-Meal BG 400-449 give 6 units For Pre-Meal BG greater than or equal to 450 give 7 units. To be given with prandial insulin, and based on pre-meal blood glucose. Notify provider if glucose greater than or equal to 350 mg/dL after administration of correction dose. If given at mealtime, administer within 30 minutes of start of meal. insulin aspart (NovoLOG) injection (RAPID ACTING) 1-5 Units, Subcutaneous, AT BEDTIME, First dose on Fri12/09/22 at 2200, MEDIUM INSULIN RESISTANCE DOSING Do Not give Bedtime Correction Insulin if BG less than 200. For BG 200 - 249 give 1 units. For BG 250 - 299 give 2 units. For BG 300 - 349 give 3 units. For BG 350 -399 give 4 units. For BG greater than or equal to 400 give 5 units. Notify provider if glucose greater than or equal to 350 mg/dL after administration of correction dose. If given at mealtime, administer within 30 minutes of start of meal. levothyroxine (SYNTHROID/LEVOTHROID) tablet 175 mcg 175 mcg, Oral, ONCE, On Fri12/09/22 at 1920, For 1 dose, Separate oral administration of iron- or calcium-containing products and levothyroxine by at least 4 hours. $Given 12/09/2022 8:23 PM WIRE COILER 175 mcg levothyroxine (SYNTHROID/LEVOTHROID) tablet 175 mcg 175 mcg, Oral, EVERY MORNING BEFORE BREAKFAST, First dose (after last modification) on Fri12/10/22 at 0730, Separate oral administration of iron- or calcium-containing products and levothyroxine by at least 4 hours. $Given 12/10/2022 9:35 AM WIRE COILER 175 mcg metoprolol succinate ER (TOPROL-XL) 24 hr half-tab 12.5 mg 12.5 mg, Oral, DAILY, First dose on Fri12/10/22 at 1200, DO NOT CRUSH. Tablet may be split in half along score line. $Given 12/10/2022 12:34 PM WIRE COILER 12.5 mg naloxone (NARCAN) injection 0.2 mg 0.2 mg, Intravenous, EVERY 2 MIN PRN, opioid reversal, Starting on Fri12/10/22 at 0831, Administer intravenous route when available and notify provider when administered. For unintended sedation or respiratory depression if all of the below criteria are met: ~ respiratory rate LESS than or EQUAL to 8. ~SaO2 less than 92% and or/end-tidal CO2 is greater than 50. ~ the patient is receiving an opioid, has unintended sedations assessed as RASS (-3), and is currently not on mechanical ventilation. RASS scale moderate (-3) is movement or eye opening to voice but no eye contact. Patient Monitoring Once the patient has demonstrated a response to the naloxone, continue to monitor respiratory rate, depth, oxygen saturation and end-tidal CO2 (if available) every 15 minutes x 2, then every 30 minutes x 2, then every 1 hour x 1 after each naloxone dose. Consider transfer to ICU if patient respiratory parameters have not improved after 4 naloxone doses. naloxone (NARCAN) injection 0.2 mg 0.2 mg, Intramuscular, EVERY 2 MIN PRN, opioid reversal, Starting on Fri12/10/22 at 0831, Administer intramuscular if an intravenous route is not available and notify provider when administered. For unintended sedation or respiratory depression if all of the below criteria are met: ~ respiratory rate LESS than or EQUAL to 8. ~SaO2 less than 92% and or/end-tidal CO2 is greater than 50. ~ the patient is receiving an opioid, has unintended sedations assessed as RASS (-3), and is currently not on mechanical ventilation. RASS scale moderate (-3) is movement or eye opening to voice but no eye contact. Patient Monitoring Once the patient has demonstrated a response to the naloxone, continue to monitor respiratory rate, depth, oxygen saturation and end-tidal CO2 (if available) every 15 minutes x 2, then every 30 minutes x 2, then every 1 hour x 1 after each naloxone dose. Consider transfer to ICU if patient respiratory parameters have not improved after 4 naloxone doses. naloxone (NARCAN) injection 0.4 mg 0.4 mg, Intravenous, EVERY 2 MIN PRN, opioid reversal, Starting on Fri12/10/22 at 0831, Administer intravenous route when available and notify provider when administered. For unintended sedation or respiratory depression if all of the below criteria are met: ~ respiratory rate LESS than or EQUAL to 8. ~ SaO2 less than 92% and or/end-tidal CO2 is greater than 50. ~ the patient is receiving an opioid, has unintended sedation assessed as RASS (-4) or (-5) and patient is currently not on mechanical ventilation. RASS scale (-4) is deep sedation with no response to voice but movement or eye opening to physical stimulation. RASS scale (-5) is unarousable. Patient Monitoring Once the patient has demonstrated a response to the naloxone, continue to monitor respiratory rate, depth, oxygen saturation and end-tidal CO2 (if available) every 15 minutes x 2, then every 30 minutes x 2, then every 1 hour x 1 after each naloxone dose. Consider transfer to ICU if patient respiratory parameters have not improved after 4 naloxone doses. naloxone (NARCAN) injection 0.4 mg 0.4 mg, Intramuscular, EVERY 2 MIN PRN, opioid reversal, Starting on Fri12/10/22 at 0831, Administer intramuscular if an intravenous route is not available and notify provider when administered. For unintended sedation or respiratory depression if all of the below criteria are met: ~ respiratory rate LESS than or EQUAL to 8. ~ SaO2 less than 92% and or/end-tidal CO2 is greater than 50. ~ the patient is receiving an opioid, has unintended sedation assessed as RASS (-4) or (-5) and patient is currently not on mechanical ventilation. RASS scale (-4) is deep sedation with no response to voice but movement or eye opening to physical stimulation. RASS scale (-5) is unarousable. Patient Monitoring Once the patient has demonstrated a response to the naloxone, continue to monitor respiratory rate, depth, oxygen saturation and end-tidal CO2 (if available) every 15 minutes x 2, then every 30 minutes x 2, then every 1 hour x 1 after each naloxone dose. Consider transfer to ICU if patient respiratory parameters have not improved after 4 naloxone doses. ondansetron (ZOFRAN ODT) ODT tab 4 mg 4 mg, Oral, EVERY 6 HOURS PRN, nausea, vomiting, Starting on Fri12/09/22 at 1543, This is Step 1 of nausea and vomiting management. If nausea not resolved in 15 minutes, go to Step 2 prochlorperazine (COMPAZINE). With dry hands, peel back foil backing and gently remove tablet. Do not push oral disintegrating tablet through foil backing. Administer immediately on tongue and oral disintegrating tablet dissolves in seconds, then swallow with saliva. Liquid not required. ondansetron (ZOFRAN) injection 4 mg 4 mg, Intravenous, EVERY 6 HOURS PRN, nausea, vomiting, Administer over 2-5 Minutes, Starting on Fri12/09/22 at 1543, Give IF patient unable to tolerate oral medication. This is Step 1 of nausea and vomiting management. If nausea not resolved in 15 minutes, go to Step 2 prochlorperazine (COMPAZINE). Irritant. pantoprazole (PROTONIX) EC tablet 40 mg 40 mg, Oral, DAILY, First dose on Fri12/10/22 at 0800, Therapeutic interchange for omeprazole. $Given 12/10/2022 9:36 AM WIRE COILER 40 mg perflutren diluted 1mL to 2mL with saline (OPTISON) diluted injection 9 mL 9 mL, Intravenous, ONCE, On Fri12/10/22 at 0900, For 1 dose $Given 12/10/2022 8:44 AM WIRE COILER 9 mLs prochlorperazine (COMPAZINE) injection 5 mg 5 mg, Intravenous, EVERY 6 HOURS PRN, nausea, vomiting, Administer over 1-2 Minutes, Starting on Fri12/09/22 at 1543, IF patient unable to tolerate oral medication. This is Step 2 of nausea and vomiting management. Give if nausea not resolved 15 minutes after giving ondansetron (ZOFRAN). prochlorperazine (COMPAZINE) suppository 12.5 mg 12.5 mg, Rectal, EVERY 12 HOURS PRN, nausea, vomiting, Starting on Fri12/09/22 at 1543, This is Step 2 of nausea and vomiting management. Give if nausea not resolved 15 minutes after giving ondansetron (ZOFRAN). prochlorperazine (COMPAZINE) tablet 5 mg 5 mg, Oral, EVERY 6 HOURS PRN, vomiting, Starting on Fri12/09/22 at 1543, This is Step 2 of nausea and vomiting management. Give if nausea not resolved 15 minutes after giving ondansetron (ZOFRAN). Reason YISSEL/ARB/ARNI order not selected Reason not prescribed: recent rise in serum creatinine, Discharge-NON Med sacubitril-valsartan (ENTRESTO) 24-26 MG per tablet 1 tablet 1 tablet, Oral, 2 TIMES DAILY, First dose on Fri12/10/22 at 0800 $Given 12/10/2022 9:38 AM [facility]ER 1 tablet senna-docusate (SENOKOT-S/PERICOLACE) 8.6-50 MG per tablet 1 tablet 1 tablet, Oral, 2 TIMES DAILY PRN, constipation, Starting on Fri12/09/22 at 1543, If no bowel movement in 24 hours, increase to 2 tablets by mouth. IF more than 1 constipation PRN medication is ordered, administer step-haley as indicated, moving to the next step ONLY if prior step ineffective. Step 1: senna-docusate (SENOKOT-S; PERICOLACE) OR bisacodyl (DULCOLAX) EC tablet Step 2: magnesium hydroxide (MILK OF MAGNESIA) OR polyethylene glycol (MIRALAX/GLYCOLAX) Step 3: bisacodyl (DULCOLAX) suppository Step 4: sodium phosphate (FLEET ENEMA) Hold for loose stools. senna-docusate (SENOKOT-S/PERICOLACE) 8.6-50 MG per tablet 2 tablet 2 tablet, Oral, 2 TIMES DAILY PRN, constipation, Starting on Fri12/09/22 at 1543, IF more than 1 constipation PRN medication is ordered, administer step-haley as indicated, moving to the next step ONLY if prior step ineffective. Step 1: senna-docusate (SENOKOT-S; PERICOLACE) OR bisacodyl (DULCOLAX) EC tablet Step 2: magnesium hydroxide (MILK OF MAGNESIA) OR polyethylene glycol (MIRALAX/GLYCOLAX) Step 3: bisacodyl (DULCOLAX) suppository Step 4: sodium phosphate (FLEET ENEMA) Hold for loose stools. sodium chloride (PF) 0.9% PF flush 10 mL 10 mL, Intravenous, ONCE, On Fri12/10/22 at 0900, For 1 dose $Given 12/10/2022 8:45 AM W[employer] CO[employer]ER 20 mLs sodium chloride (PF) 0.9% PF flush 3 mL 3 mL, Intracatheter, EVERY 8 HOURS, First dose on Fri12/09/22 at 1545, to lock peripheral IV dormant line $Given 12/10/2022 9:40 AM WIRE CO[employer]ER 3 mLs $Given 12/09/2022 3:44 PM [employer] 3 mLs tamsulosin (FLOMAX) capsule 0.4 mg 0.4 mg, Oral, DAILY, First dose (after last modification) on Fri12/09/22 at 2024, Administer 30 minutes after the same meal each day. Capsules should be swallowed whole; do not crush chew or open. $Given 12/10/2022 9:35 AM W[employer] CO[employer] 0.4 mg $Given 12/09/2022 8:24 PM [employer] 0.4 mg documented in this encounter Active and Recently Administered Medications Times are shown in [facility]. Scheduled Medication Order 12/08/2022 12/09/2022 12/10/2022 amLODIPine (NORVASC) tablet 2.5 mg (CANCELED) 2.5 mg, Oral, DAILY, First dose on Fri12/10/22 at 0800 0938 ($Given - Provi nidhi: Danika Porter RN) aspirin EC tablet 81 mg 81 mg, Oral, DAILY, First dose on Fri12/10/22 at 0800, DO NOT CRUSH. 0935 ($Given - Provi nidhi: Danika Porter RN) azithromycin (ZITHROMAX) 500 mg vial to attach to NS 250 mL bag (COMPLETED) STAT, 500 mg, Intravenous, ONCE, On Fri12/09/22 at 1440, For 1 dose, Indications: Community Acquired Pneumonia 1632 ($New Bag - Provider: Marci Solis RN)1732 (Stopped - Provider: Marci Solis RN) azithromycin (ZITHROMAX) tablet 250 mg Routine, 250 mg, Oral, DAILY, First dose on Fri12/10/22 at 0800, For 4 days, Indications: Community Acquired Pneumonia 0936 ($Given - Provi nidhi: Danika Porter RN) buPROPion (WELLBUTRIN XL) 24 hr tablet 300 mg 300 mg, Oral, EVERY MORNING, First dose on Fri12/10/22 at 0800, DO NOT CRUSH. 0936 ($Given - Provi nidhi: Danika Porter RN) cefTRIAXone (ROCEPHIN) 2 g vial to attach to NS 100 ml bag for ADULTS or NS 50 ml bag for PEDS (COMPLETED) STAT, 2 g, Intravenous, ONCE, On Fri12/09/22 at 1440, For 1 dose, Indications: Community Acquired Pneumonia 1536 ($New Bag - Provider: Marci Solis RN)1610 (Stopped - Provider: Marci Solis RN) cefTRIAXone (ROCEPHIN) 2 g vial to attach to NS 100 ml bag for ADULTS or NS 50 ml bag for PEDS STAT, 2 g, Intravenous, EVERY 24 HOURS, First dose on Fri12/10/22 at 0900, Indications: Community Acquired Pneumonia 0938 ($New Bag - Provider: Danika Porter RN) finasteride (PROSCAR) tablet 5 mg 5 mg, Oral, DAILY, First dose on Fri12/09/22 at 1925, *Do not handle tablets if you are * 2013 ($Given - Provider: Marci Solis RN) 0937 ($Given - Provider: Danika Porter RN) furosemide (LASIX) injection 60 mg (COMPLETED) 60 mg, Intravenous, ONCE, Administer over 1-3 Minutes, On Fri12/09/22 at 1400, For 1 dose 1449 ($Given - Provider: Mak Vang RN) hydroxyurea (HYDREA) capsule 1,000 mg 1,000 mg, Oral, DAILY, First dose on Fri12/10/22 at 0800, Indications: Polycythemia Vera, Do not crush May require hepatic and/or renal dose or frequency adjustments. See reference link for guidelines. 0935 ($Given - Provi nidhi: Danika Porter RN) insulin aspart (NovoLOG) injection (RAPID ACTING) 1-7 Units, Subcutaneous, 3 TIMES DAILY BEFORE MEALS, First dose on Fri12/09/22 at 1700, Correction Scale - MEDIUM INSULIN RESISTANCE DOSING Do Not give Correction Insulin if Pre-Meal BG less than 140. For Pre-Meal BG 140 - 189 give 1 unit. For Pre-Meal BG 190 - 239 give 2 units. For Pre-Meal BG 240 - 289 give 3 units. For Pre-Meal BG 290 - 339 give 4 units. For Pre-Meal BG 340- 399 give 5 units. For Pre-Meal BG 400-449 give 6 units For Pre-Meal BG greater than or equal to 450 give 7 units. To be given with prandial insulin, and based on pre-meal blood glucose. Notify provider if glucose greater than or equal to 350 mg/dL after administration of correction dose. If given at mealtime, administer within 30 minutes of start of meal. 1911 (Not Given - Provider: Marci Solis RN - Reason: Patient/family refused - Comment: pt and family refusing insulin) 0940 (Not Given - Provider: Danika Porter RN - Reason: Patient/family refused)1236 (Not Given - Provider: Eleonora Hidalgo - Reason: Patient/family refused)1700 (Canceled Entry - Provider: Orders Generic Provider - Comment: Automatically canceled at discontinue of medication order) insulin aspart (NovoLOG) injection (RAPID ACTING) 1-5 Units, Subcutaneous, AT BEDTIME, First dose on Fri12/09/22 at 2200, MEDIUM INSULIN RESISTANCE DOSING Do Not give Bedtime Correction Insulin if BG less than 200. For BG 200 - 249 give 1 units. For BG 250 - 299 give 2 units. For BG 300 - 349 give 3 units. For BG 350 -399 give 4 units. For BG greater than or equal to 400 give 5 units. Notify provider if glucose greater than or equal to 350 mg/dL after administration of correction dose. If given at mealtime, administer within 30 minutes of start of meal. 2141 (Not Given - Provider: Marci Solis RN - Reason: Patient/family refused) levothyroxine (SYNTHROID/LEVOTHROID) tablet 175 mcg (CANCELED) 175 mcg, Oral, ONCE, On Fri12/09/22 at 1920, For 1 dose, Separate oral administration of iron- or calcium-containing products and levothyroxine by at least 4 hours. 2022 ($Given - Provider: Marci Solis RN - Comment: talked with pharmacist, ok to take tonight as long as 12 hours before Am DOSE) levothyroxine (SYNTHROID/LEVOTHROID) tablet 175 mcg 175 mcg, Oral, EVERY MORNING BEFORE BREAKFAST, First dose (after last modification) on Fri12/10/22 at 0730, Separate oral administration of iron- or calcium-containing products and levothyroxine by at least 4 hours. 0935 ($Given - Provi nidhi: Danika Porter RN) metoprolol succinate ER (TOPROL-XL) 24 hr half-tab 12.5 mg 12.5 mg, Oral, DAILY, First dose on Fri12/10/22 at 1200, DO NOT CRUSH. Tablet may be split in half along score line. 1234 ($Given - Provi nidhi: Eleonora Hidalgo) pantoprazole (PROTONIX) EC tablet 40 mg 40 mg, Oral, DAILY, First dose on Fri12/10/22 at 0800, Therapeutic interchange for omeprazole. 0936 ($Given - Provi nidhi: Danika Porter RN) perflutren diluted 1mL to 2mL with saline (OPTISON) diluted injection 9 mL (COMPLETED) 9 mL, Intravenous, ONCE, On Fri12/10/22 at 0900, For 1 dose 0844 ($Given - Provi nidhi: Vivek Ho) sacubitril-valsartan (ENTRESTO) 24-26 MG per tablet 1 tablet 1 tablet, Oral, 2 TIMES DAILY, First dose on Fri12/10/22 at 0800 0938 ($Given - Provi nidhi: Danika Porter RN) sodium chloride (PF) 0.9% PF flush 10 mL (COMPLETED) 10 mL, Intravenous, ONCE, On Fri12/10/22 at 0900, For 1 dose 0845 ($Given - Provi nidhi: Vivek Ho) sodium chloride (PF) 0.9% PF flush 3 mL 3 mL, Intracatheter, EVERY 8 HOURS, First dose on Fri12/09/22 at 1545, to lock peripheral IV dormant line 1544 ($Given - Provider: Marci Solis RN) 0032 (Not Given - Provider: Glo Persaud RN - Reason: Patient sleeping)0940 ($Given - Provider: Danika Porter, RN)1545 (Canceled Entry - Provider: Orders Generic Provider - Comment: Automatically canceled at discontinue of medication order) tamsulosin (FLOMAX) capsule 0.4 mg 0.4 mg, Oral, DAILY, First dose (after last modification) on Fri12/09/22 at 2025, Administer 30 minutes after the same meal each day. Capsules should be swallowed whole; do not crush chew or open. 2023 ($Given - Provider: Marci Solis RN) 0935 ($Given - Provider: Danika Porter, RN) PRN Medication Order 12/08/2022 12/09/2022 12/10/2022 acetaminophen (TYLENOL) Suppository 650 mg(Linked Group 1) 650 mg, Rectal, EVERY 6 HOURS PRN, mild pain, other, and adjunct with moderate or severe pain or per patient request, Starting on Fri12/09/22 at 1543, Alternate with ibuprofen if ordered. Maximum acetaminophen dose from all sources = 75 mg/kg/day not to exceed 4 grams/day. acetaminophen (TYLENOL) tablet 650 mg(Linked Group 1) 650 mg, Oral, EVERY 6 HOURS PRN, mild pain, other, and adjunct with moderate or severe pain or per patient request, Starting on Fri12/09/22 at 1543, Alternate with ibuprofen if ordered. Maximum acetaminophen dose from all sources = 75 mg/kg/day not to exceed 4 grams/day. bisacodyl (DULCOLAX) suppository 10 mg 10 mg, Rectal, DAILY PRN, constipation, Starting on Fri12/09/22 at 1543, IF more than 1 constipation PRN medication is ordered, administer step-haley as indicated, moving to the next step ONLY if prior step ineffective. Step 1: senna-docusate (SENOKOT-S; PERICOLACE) OR bisacodyl (DULCOLAX) EC tablet Step 2: magnesium hydroxide (MILK OF MAGNESIA) OR polyethylene glycol (MIRALAX/GLYCOLAX) Step 3: bisacodyl (DULCOLAX) suppository Step 4: sodium phosphate (FLEET ENEMA) Hold for loose stools. dextrose 50 % injection 25-50 mL(Linked Group 2) 25-50 mL, Intravenous, EVERY 15 MIN PRN, low blood sugar, Administer over 1-5 Minutes, Starting on Fri12/09/22 at 1602, Use if have IV access, BG less than 70 mg/dL and meet dose criteria below: Dose if conscious and alert (or disorientated) and NPO = 25 mL Dose if unconscious / not alert = 50 mL Give first dose for initial blood glucose less than 70 mg/dL. If blood glucose at 15 minute recheck is less than or equal to 100 mg/dL continue to administer carbohydrate treatment every 15 minutes, as needed, based on blood glucose and assessment parameters until blood glucose level is above 100 mg/dL. Vesicant. glucagon injection 1 mg(Linked Group 2) 1 mg, Subcutaneous, EVERY 15 MIN PRN, low blood sugar, May repeat x 1 only, Starting on Fri12/09/22 at 1602, May give SQ or IM. ONLY use glucagon IF patient has NO IV access AND is UNABLE to swallow AND blood glucose is LESS than or EQUAL to 50 mg/dL. glucose gel 15-30 g(Linked Group 2) 15-30 g, Oral, EVERY 15 MIN PRN, low blood sugar, Starting on Fri12/09/22 at 1602, Give first dose for initial blood glucose less than 70 mg/dL per the dosing instructions below. If blood glucose at 15 minute rechecks is still less than or equal to 100 mg/dL, continue to administer doses per blood glucose parameters every 15 minutes, as needed, until blood glucose level is above 100 mg/dL. Dosing Instructions: ~If patient is conscious and able to swallow and NO enteral tube For initial BG 51-69mg/dL OR 15 minute recheck BG 51- 100 mg/dL - give 15 g For BG less than or equal to 50 mg/dL - give 30 g ~ If Enteral tube For initial BG 51-69mg/dL OR 15 minute recheck BG 51- 100 mg/dL - give apple juice 120 mL (4 oz or 15 g of CHO) via enteral tube For BG less than or equal to 50 mg/dL - Give apple juice 240 mL (8 oz or 30 g of CHO) via enteral tube ~Oral gel is preferable for conscious and able to swallow patient. ~IF gel unavailable or patient refuses may provide apple juice per Enteral tube dosing instructions. Document juice on I and O flowsheet. HYDROmorphone (DILAUDID) injection 0.2 mg 0.2 mg, Intravenous, EVERY 2 HOURS PRN, moderate pain (4-6), IF patient cannot take oral opioid OR IF pain not managed with non-pharmacological, non-opioid, or oral opioid interventions if ordered, Starting on Fri12/09/22 at 1543, May use concomitant with non-opioid analgesics. lidocaine (LMX4) cream Topical, EVERY 1 HOUR PRN, pain, with VAD insertion, Starting on Fri12/09/22 at 1543, Apply at least 30 minutes prior to VAD insertion in divided doses as needed for size of site for insertion. MAX Dose: 2.5 g (?? of 5 g tube) Do NOT give if patient has a history of allergy to any local anesthetic or any yazmin product. Do NOT use both lidocaine intradermal/subcutaneous injection and the lidocaine cream on the same site. lidocaine 1 % 0.1-1 mL 0.1-1 mL, Other, EVERY 1 HOUR PRN, mild pain with VAD insertion, Starting on Fri12/09/22 at 1543, MAX dose 1 mL subcutaneous OR intradermal along the side of the vein in divided doses as needed for VAD insertion. Do NOT give if patient has a history of allergy to any local anesthetic or any yazmin product. Do NOT use both lidocaine intradermal/subcutaneous injection and the lidocaine cream on the same site. melatonin tablet 1 mg 1 mg, Oral, AT BEDTIME PRN, sleep, Starting on Fri12/09/22 at 1543, Do not give unless at least 6 hours of uninterrupted sleep is expected. naloxone (NARCAN) injection 0.2 mg(Linked Group 3) 0.2 mg, Intravenous, EVERY 2 MIN PRN, opioid reversal, Starting on Fri12/10/22 at 0831, Administer intravenous route when available and notify provider when administered. For unintended sedation or respiratory depression if all of the below criteria are met: ~ respiratory rate LESS than or EQUAL to 8. ~SaO2 less than 92% and or/end-tidal CO2 is greater than 50. ~ the patient is receiving an opioid, has unintended sedations assessed as RASS (-3), and is currently not on mechanical ventilation. RASS scale moderate (-3) is movement or eye opening to voice but no eye contact. Patient Monitoring Once the patient has demonstrated a response to the naloxone, continue to monitor respiratory rate, depth, oxygen saturation and end-tidal CO2 (if available) every 15 minutes x 2, then every 30 minutes x 2, then every 1 hour x 1 after each naloxone dose. Consider transfer to ICU if patient respiratory parameters have not improved after 4 naloxone doses. naloxone (NARCAN) injection 0.2 mg(Linked Group 3) 0.2 mg, Intramuscular, EVERY 2 MIN PRN, opioid reversal, Starting on Fri12/10/22 at 0831, Administer intramuscular if an intravenous route is not available and notify provider when administered. For unintended sedation or respiratory depression if all of the below criteria are met: ~ respiratory rate LESS than or EQUAL to 8. ~SaO2 less than 92% and or/end-tidal CO2 is greater than 50. ~ the patient is receiving an opioid, has unintended sedations assessed as RASS (-3), and is currently not on mechanical ventilation. RASS scale moderate (-3) is movement or eye opening to voice but no eye contact. Patient Monitoring Once the patient has demonstrated a response to the naloxone, continue to monitor respiratory rate, depth, oxygen saturation and end-tidal CO2 (if available) every 15 minutes x 2, then every 30 minutes x 2, then every 1 hour x 1 after each naloxone dose. Consider transfer to ICU if patient respiratory parameters have not improved after 4 naloxone doses. naloxone (NARCAN) injection 0.4 mg(Linked Group 3) 0.4 mg, Intravenous, EVERY 2 MIN PRN, opioid reversal, Starting on Fri12/10/22 at 0831, Administer intravenous route when available and notify provider when administered. For unintended sedation or respiratory depression if all of the below criteria are met: ~ respiratory rate LESS than or EQUAL to 8. ~ SaO2 less than 92% and or/end-tidal CO2 is greater than 50. ~ the patient is receiving an opioid, has unintended sedation assessed as RASS (-4) or (-5) and patient is currently not on mechanical ventilation. RASS scale (-4) is deep sedation with no response to voice but movement or eye opening to physical stimulation. RASS scale (-5) is unarousable. Patient Monitoring Once the patient has demonstrated a response to the naloxone, continue to monitor respiratory rate, depth, oxygen saturation and end-tidal CO2 (if available) every 15 minutes x 2, then every 30 minutes x 2, then every 1 hour x 1 after each naloxone dose. Consider transfer to ICU if patient respiratory parameters have not improved after 4 naloxone doses. naloxone (NARCAN) injection 0.4 mg(Linked Group 3) 0.4 mg, Intramuscular, EVERY 2 MIN PRN, opioid reversal, Starting on Fri12/10/22 at 0831, Administer intramuscular if an intravenous route is not available and notify provider when administered. For unintended sedation or respiratory depression if all of the below criteria are met: ~ respiratory rate LESS than or EQUAL to 8. ~ SaO2 less than 92% and or/end-tidal CO2 is greater than 50. ~ the patient is receiving an opioid, has unintended sedation assessed as RASS (-4) or (-5) and patient is currently not on mechanical ventilation. RASS scale (-4) is deep sedation with no response to voice but movement or eye opening to physical stimulation. RASS scale (-5) is unarousable. Patient Monitoring Once the patient has demonstrated a response to the naloxone, continue to monitor respiratory rate, depth, oxygen saturation and end-tidal CO2 (if available) every 15 minutes x 2, then every 30 minutes x 2, then every 1 hour x 1 after each naloxone dose. Consider transfer to ICU if patient respiratory parameters have not improved after 4 naloxone doses. ondansetron (ZOFRAN ODT) ODT tab 4 mg(Linked Group 4) 4 mg, Oral, EVERY 6 HOURS PRN, nausea, vomiting, Starting on Fri12/09/22 at 1543, This is Step 1 of nausea and vomiting management. If nausea not resolved in 15 minutes, go to Step 2 prochlorperazine (COMPAZINE). With dry hands, peel back foil backing and gently remove tablet. Do not push oral disintegrating tablet through foil backing. Administer immediately on tongue and oral disintegrating tablet dissolves in seconds, then swallow with saliva. Liquid not required. ondansetron (ZOFRAN) injection 4 mg(Linked Group 4) 4 mg, Intravenous, EVERY 6 HOURS PRN, nausea, vomiting, Administer over 2-5 Minutes, Starting on Fri12/09/22 at 1543, Give IF patient unable to tolerate oral medication. This is Step 1 of nausea and vomiting management. If nausea not resolved in 15 minutes, go to Step 2 prochlorperazine (COMPAZINE). Irritant. oxyCODONE (ROXICODONE) tablet 5 mg 5 mg, Oral, EVERY 4 HOURS PRN, severe pain (7-10), IF pain not managed with non-pharmacological and non-opioid interventions, Starting on Fri12/09/22 at 1543, May use concomitant with non-opioid analgesics. oxyCODONE IR (ROXICODONE) half-tab 2.5 mg 2.5 mg, Oral, EVERY 4 HOURS PRN, moderate pain (4-6), IF pain not managed with non-pharmacological and non-opioid interventions, Starting on Fri12/09/22 at 1543, May use concomitant with non-opioid analgesics. polyethylene glycol (MIRALAX) Packet 17 g 17 g, Oral, DAILY PRN, constipation, Starting on Fri12/09/22 at 1543, IF more than 1 constipation PRN medication is ordered, administer step-haley as indicated, moving to the next step ONLY if prior step ineffective. Step 1: senna-docusate (SENOKOT-S; PERICOLACE) OR bisacodyl (DULCOLAX) EC tablet Step 2: magnesium hydroxide (MILK OF MAGNESIA) OR polyethylene glycol (MIRALAX/GLYCOLAX) Step 3: bisacodyl (DULCOLAX) suppository Step 4: sodium phosphate (FLEET ENEMA) 1 Packet = 17 grams. Mix each gram with at least 1/2 ounce (15 mL) of water - 8 ounces for 17 g dose, 4 ounces for 8.5 g dose, 2 ounces for 4 g dose. Follow with the same volume of water. Hold for loose stools unless being administered as part of a bowel prep regimen or bowel clean out. prochlorperazine (COMPAZINE) injection 5 mg(Linked Group 5) 5 mg, Intravenous, EVERY 6 HOURS PRN, nausea, vomiting, Administer over 1-2 Minutes, Starting on Fri12/09/22 at 1543, IF patient unable to tolerate oral medication. This is Step 2 of nausea and vomiting management. Give if nausea not resolved 15 minutes after giving ondansetron (ZOFRAN). prochlorperazine (COMPAZINE) suppository 12.5 mg(Linked Group 5) 12.5 mg, Rectal, EVERY 12 HOURS PRN, nausea, vomiting, Starting on Fri12/09/22 at 1543, This is Step 2 of nausea and vomiting management. Give if nausea not resolved 15 minutes after giving ondansetron (ZOFRAN). prochlorperazine (COMPAZINE) tablet 5 mg(Linked Group 5) 5 mg, Oral, EVERY 6 HOURS PRN, vomiting, Starting on Fri12/09/22 at 1543, This is Step 2 of nausea and vomiting management. Give if nausea not resolved 15 minutes after giving ondansetron (ZOFRAN). Reason YISSEL/ARB/ARNI order not selected Reason not prescribed: recent rise in serum creatinine, Discharge-NON Med senna-docusate (SENOKOT-S/PERICOLACE) 8.6-50 MG per tablet 1 tablet(Linked Group 6) 1 tablet, Oral, 2 TIMES DAILY PRN, constipation, Starting on Fri12/09/22 at 1543, If no bowel movement in 24 hours, increase to 2 tablets by mouth. IF more than 1 constipation PRN medication is ordered, administer step-haley as indicated, moving to the next step ONLY if prior step ineffective. Step 1: senna-docusate (SENOKOT-S; PERICOLACE) OR bisacodyl (DULCOLAX) EC tablet Step 2: magnesium hydroxide (MILK OF MAGNESIA) OR polyethylene glycol (MIRALAX/GLYCOLAX) Step 3: bisacodyl (DULCOLAX) suppository Step 4: sodium phosphate (FLEET ENEMA) Hold for loose stools. senna-docusate (SENOKOT-S/PERICOLACE) 8.6-50 MG per tablet 2 tablet(Linked Group 6) 2 tablet, Oral, 2 TIMES DAILY PRN, constipation, Starting on Fri12/09/22 at 1543, IF more than 1 constipation PRN medication is ordered, administer step-haley as indicated, moving to the next step ONLY if prior step ineffective. Step 1: senna-docusate (SENOKOT-S; PERICOLACE) OR bisacodyl (DULCOLAX) EC tablet Step 2: magnesium hydroxide (MILK OF MAGNESIA) OR polyethylene glycol (MIRALAX/GLYCOLAX) Step 3: bisacodyl (DULCOLAX) suppository Step 4: sodium phosphate (FLEET ENEMA) Hold for loose stools. sodium chloride (PF) 0.9% PF flush 3 mL 3 mL, Intracatheter, EVERY 1 MIN PRN, line flush, other, to ensure patency or to lock dormant line, Starting on Fri12/09/22 at 1543 Linked Groups Order Group 1: acetaminophen (TYLENOL) tablet 650 mgJump to med 650 mg, Oral, EVERY 6 HOURS PRN, mild pain, other, and adjunct with moderate or severe pain or per patient request, Starting on Fri12/09/22 at 1543, Alternate with ibuprofen if ordered. Maximum acetaminophen dose from all sources = 75 mg/kg/day not to exceed 4 grams/day. Or acetaminophen (TYLENOL) Suppository 650 mgJump to med 650 mg, Rectal, EVERY 6 HOURS PRN, mild pain, other, and adjunct with moderate or severe pain or per patient request, Starting on Fri12/09/22 at 1543, Alternate with ibuprofen if ordered. Maximum acetaminophen dose from all sources = 75 mg/kg/day not to exceed 4 grams/day. Group 2: glucose gel 15-30 gJump to med 15-30 g, Oral, EVERY 15 MIN PRN, low blood sugar, Starting on Fri12/09/22 at 1602, Give first dose for initial blood glucose less than 70 mg/dL per the dosing instructions below. If blood glucose at 15 minute rechecks is still less than or equal to 100 mg/dL, continue to administer doses per blood glucose parameters every 15 minutes, as needed, until blood glucose level is above 100 mg/dL. Dosing Instructions: ~If patient is conscious and able to swallow and NO enteral tube For initial BG 51-69mg/dL OR 15 minute recheck BG 51- 100 mg/dL - give 15 g For BG less than or equal to 50 mg/dL - give 30 g ~ If Enteral tube For initial BG 51- 69mg/dL OR 15 minute recheck BG 51- 100 mg/dL - give apple juice 120 mL (4 oz or 15 g of CHO) via enteral tube For BG less than or equal to 50 mg/dL - Give apple juice 240 mL (8 oz or 30 g of CHO) via enteral tube ~Oral gel is preferable for conscious and able to swallow patient. ~IF gel unavailable or patient refuses may provide apple juice per Enteral tube dosing instructions. Document juice on I and O flowsheet. Or dextrose 50 % injection 25-50 mLJump to med 25-50 mL, Intravenous, EVERY 15 MIN PRN, low blood sugar, Administer over 1-5 Minutes, Starting on Fri12/09/22 at 1602, Use if have IV access, BG less than 70 mg/dL and meet dose criteria below: Dose if conscious and alert (or disorientated) and NPO = 25 mL Dose if unconscious / not alert = 50 mL Give first dose for initial blood glucose less than 70 mg/dL. If blood glucose at 15 minute recheck is less than or equal to 100 mg/dL continue to administer carbohydrate treatment every 15 minutes, as needed, based on blood glucose and assessment parameters until blood glucose level is above 100 mg/dL. Vesicant. Or glucagon injection 1 mgJump to med 1 mg, Subcutaneous, EVERY 15 MIN PRN, low blood sugar, May repeat x 1 only, Starting on Fri12/09/22 at 1602, May give SQ or IM. ONLY use glucagon IF patient has NO IV access AND is UNABLE to swallow AND blood glucose is LESS than or EQUAL to 50 mg/dL. Group 3: naloxone (NARCAN) injection 0.2 mgJump to med 0.2 mg, Intravenous, EVERY 2 MIN PRN, opioid reversal, Starting on Fri12/10/22 at 0831, Administer intravenous route when available and notify provider when administered. For unintended sedation or respiratory depression if all of the below criteria are met: ~ respiratory rate LESS than or EQUAL to 8. ~SaO2 less than 92% and or/end-tidal CO2 is greater than 50. ~ the patient is receiving an opioid, has unintended sedations assessed as RASS (-3), and is currently not on mechanical ventilation. RASS scale moderate (-3) is movement or eye opening to voice but no eye contact. Patient Monitoring Once the patient has demonstrated a response to the naloxone, continue to monitor respiratory rate, depth, oxygen saturation and end-tidal CO2 (if available) every 15 minutes x 2, then every 30 minutes x 2, then every 1 hour x 1 after each naloxone dose. Consider transfer to ICU if patient respiratory parameters have not improved after 4 naloxone doses. Or naloxone (NARCAN) injection 0.4 mgJump to med 0.4 mg, Intravenous, EVERY 2 MIN PRN, opioid reversal, Starting on Fri12/10/22 at 0831, Administer intravenous route when available and notify provider when administered. For unintended sedation or respiratory depression if all of the below criteria are met: ~ respiratory rate LESS than or EQUAL to 8. ~ SaO2 less than 92% and or/end-tidal CO2 is greater than 50. ~ the patient is receiving an opioid, has unintended sedation assessed as RASS (-4) or (-5) and patient is currently not on mechanical ventilation. RASS scale (-4) is deep sedation with no response to voice but movement or eye opening to physical stimulation. RASS scale (-5) is unarousable. Patient Monitoring Once the patient has demonstrated a response to the naloxone, continue to monitor respiratory rate, depth, oxygen saturation and end-tidal CO2 (if available) every 15 minutes x 2, then every 30 minutes x 2, then every 1 hour x 1 after each naloxone dose. Consider transfer to ICU if patient respiratory parameters have not improved after 4 naloxone doses. Or naloxone (NARCAN) injection 0.2 mgJump to med 0.2 mg, Intramuscular, EVERY 2 MIN PRN, opioid reversal, Starting on Fri12/10/22 at 0831, Administer intramuscular if an intravenous route is not available and notify provider when administered. For unintended sedation or respiratory depression if all of the below criteria are met: ~ respiratory rate LESS than or EQUAL to 8. ~SaO2 less than 92% and or/end-tidal CO2 is greater than 50. ~ the patient is receiving an opioid, has unintended sedations assessed as RASS (-3), and is currently not on mechanical ventilation. RASS scale moderate (-3) is movement or eye opening to voice but no eye contact. Patient Monitoring Once the patient has demonstrated a response to the naloxone, continue to monitor respiratory rate, depth, oxygen saturation and end-tidal CO2 (if available) every 15 minutes x 2, then every 30 minutes x 2, then every 1 hour x 1 after each naloxone dose. Consider transfer to ICU if patient respiratory parameters have not improved after 4 naloxone doses. Or naloxone (NARCAN) injection 0.4 mgJump to med 0.4 mg, Intramuscular, EVERY 2 MIN PRN, opioid reversal, Starting on Fri12/10/22 at 0831, Administer intramuscular if an intravenous route is not available and notify provider when administered. For unintended sedation or respiratory depression if all of the below criteria are met: ~ respiratory rate LESS than or EQUAL to 8. ~ SaO2 less than 92% and or/end-tidal CO2 is greater than 50. ~ the patient is receiving an opioid, has unintended sedation assessed as RASS (-4) or (-5) and patient is currently not on mechanical ventilation. RASS scale (-4) is deep sedation with no response to voice but movement or eye opening to physical stimulation. RASS scale (-5) is unarousable. Patient Monitoring Once the patient has demonstrated a response to the naloxone, continue to monitor respiratory rate, depth, oxygen saturation and end-tidal CO2 (if available) every 15 minutes x 2, then every 30 minutes x 2, then every 1 hour x 1 after each naloxone dose. Consider transfer to ICU if patient respiratory parameters have not improved after 4 naloxone doses. Group 4: ondansetron (ZOFRAN ODT) ODT tab 4 mgJump to med 4 mg, Oral, EVERY 6 HOURS PRN, nausea, vomiting, Starting on Fri12/09/22 at 1543, This is Step 1 of nausea and vomiting management. If nausea not resolved in 15 minutes, go to Step 2 prochlorperazine (COMPAZINE). With dry hands, peel back foil backing and gently remove tablet. Do not push oral disintegrating tablet through foil backing. Administer immediately on tongue and oral disintegrating tablet dissolves in seconds, then swallow with saliva. Liquid not required. Or ondansetron (ZOFRAN) injection 4 mgJump to med 4 mg, Intravenous, EVERY 6 HOURS PRN, nausea, vomiting, Administer over 2-5 Minutes, Starting on Fri12/09/22 at 1543, Give IF patient unable to tolerate oral medication. This is Step 1 of nausea and vomiting management. If nausea not resolved in 15 minutes, go to Step 2 prochlorperazine (COMPAZINE). Irritant. Group 5: prochlorperazine (COMPAZINE) injection 5 mgJump to med 5 mg, Intravenous, EVERY 6 HOURS PRN, nausea, vomiting, Administer over 1-2 Minutes, Starting on Fri12/09/22 at 1543, IF patient unable to tolerate oral medication. This is Step 2 of nausea and vomiting management. Give if nausea not resolved 15 minutes after giving ondansetron (ZOFRAN). Or prochlorperazine (COMPAZINE) tablet 5 mgJump to med 5 mg, Oral, EVERY 6 HOURS PRN, vomiting, Starting on Fri12/09/22 at 1543, This is Step 2 of nausea and vomiting management. Give if nausea not resolved 15 minutes after giving ondansetron (ZOFRAN). Or prochlorperazine (COMPAZINE) suppository 12.5 mgJump to med 12.5 mg, Rectal, EVERY 12 HOURS PRN, nausea, vomiting, Starting on Fri12/09/22 at 1543, This is Step 2 of nausea and vomiting management. Give if nausea not resolved 15 minutes after giving ondansetron (ZOFRAN). Group 6: senna-docusate (SENOKOT-S/PERICOLACE) 8.6-50 MG per tablet 1 tabletJump to med 1 tablet, Oral, 2 TIMES DAILY PRN, constipation, Starting on Fri12/09/22 at 1543, If no bowel movement in 24 hours, increase to 2 tablets by mouth. IF more than 1 constipation PRN medication is ordered, administer step-haley as indicated, moving to the next step ONLY if prior step ineffective. Step 1: senna-docusate (SENOKOT-S; PERICOLACE) OR bisacodyl (DULCOLAX) EC tablet Step 2: magnesium hydroxide (MILK OF MAGNESIA) OR polyethylene glycol (MIRALAX/GLYCOLAX) Step 3: bisacodyl (DULCOLAX) suppository Step 4: sodium phosphate (FLEET ENEMA) Hold for loose stools. Or senna-docusate (SENOKOT-S/PERICOLACE) 8.6-50 MG per tablet 2 tabletJump to med 2 tablet, Oral, 2 TIMES DAILY PRN, constipation, Starting on Fri12/09/22 at 1543, IF more than 1 constipation PRN medication is ordered, administer step-haley as indicated, moving to the next step ONLY if prior step ineffective. Step 1: senna-docusate (SENOKOT-S; PERICOLACE) OR bisacodyl (DULCOLAX) EC tablet Step 2: magnesium hydroxide (MILK OF MAGNESIA) OR polyethylene glycol (MIRALAX/GLYCOLAX) Step 3: bisacodyl (DULCOLAX) suppository Step 4: sodium phosphate (FLEET ENEMA) Hold for loose stools. documented in this encounter Care Teams Tire Wrapper Relationship Specialty Start Date End Date Patricia Naranjo MD [address] [address] PCP - General 02/13/16 12/09/22 Slava Edwards MD [address] [address] PCP - General Family Medicine 12/10/22 documented as of this encounter
--- OUTSIDE RECORDS SUMMARY | 2023-11-06 14:14 | XMS_ITS ---
Author Name Unknown Organization [facility] Address [address] [place] [id number] Care Team Providers Care Dialysis Technician Name Role Phone Slava Edwards MD Primary Care Provider Kelley Carrillo RN Unavailable Unavaila Agustin Villasenor MD Unavailable [phone] Idania Pearce RN Unavailable Unavaila ble Transitional Care Management Status:Closed (Closed) Start date:12/11/2022 Enrollment date:12/11/2022 End date:12/26/2022 Close reason:Goals met Continued Care and Services Coordination
--- OUTSIDE RECORDS SUMMARY | 2023-11-06 14:15 | XMS_ITS ---
Author Name Unknown Organization [facility] Address [address] [place] [address] Care Team Providers Care Precision Millwright Name Role Phone Unavailable Unavailable Unavailable Surgery Details Not on file Complications Check Surgery Details section. Procedure Estimated Blood Loss Check Surgery Details section. Procedure Findings Check Surgery Details section. Procedure Specimens Taken Check Surgery Details section.
--- OUTSIDE RECORDS SUMMARY | 2023-11-06 14:15 | XMS_ITS | Referral Summary ---
Author Name Unknown Organization [facility] Address [address] [place] [address] Care Team Providers Care Camp Assistant Name Role Phone Elsewhere, Pcp Primary Care Provider Unavailabl e Source Comments Patient records contain information from all sites at [facility]. For routine questions regarding patient records, call [phone] during business hours, M-F 8:00 AM - 5:00 PM Central Time. Record requests for emergency care only can be directed to [phone] at any time.[facility] Allergies Active Allergy Reactions Criticality Noted Date Comments Beta-Blockers (Beta-Adrenergic Blocking Agts) Other (see comments) 12/27/2021 Bradycardia Penicillins Anaphylaxis,Other (s ee comments) High 05/24/2015 Medications Medication Sig Dispensed Refills Start Date End Date Status aspirin [address] tablet Take 1 tablet by mouth daily. 0 02/12/2016 Active hydroxyurea (HYDREA) 500 mg capsule Take 3-4 capsules by mouth daily. 1500 mg on Mon- 2000 mg on Fri-Sun 0 10/27/2017 Active omeprazole (PriLOSEC) 20 mg capsule Take 1 capsule by mouth daily. 0 02/12/2016 Active glipiZIDE (GLUCOTROL XL) 10 mg 24 hr tablet Take 10 mg by mouth daily with breakfast. 0 Active cholecalciferol (VITAMIN D3) 50 mcg (2,000 Unit) tablet Take 50 mcg by mouth daily. 0 Active amLODIPine (NORVASC) 2.5 mg tablet Take 2.5 mg by mouth daily. 0 Active nitroglycerin (NITROSTAT) 0.[address] 0.4 mg under the tongue every 5 (five) minutes as needed for chest pain. 0 Active buPROPion XL (WELLBUTRIN XL) 300 mg 24 hr tablet Take 300 mg by mouth daily. 0 Active trospium (SANCTURA) 20 mg tablet Take 1 tablet (20 mg total) by mouth 2 (two) times a day as needed (bladder spasms). 30 tablet 0 02/22/2022 Active tamsulosin (FLOMAX) 0.4 mg 24 hr capsule Take 1 capsule (0.4 mg total) by mouth daily. 90 capsule 3 06/14/2022 Active finasteride (PROSCAR) 5 mg tablet Take 1 tablet (5 mg total) by mouth daily. 90 tablet 3 06/14/2022 Active levothyroxine (SYNTHROID, LEVOTHROID) 125 mcg tablet Take 1 tablet (125 mcg total) by mouth every morning before breakfast. 30 tablet 3 08/02/2022 Active torsemide (DEMADEX) 20 mg tablet Take 1 tablet (20 mg total) by mouth daily. 30 tablet 3 08/02/2022 Active sulfamethoxazole-tri methoprim (BACTRIM DS) 800-160 mg per tablet Take 1 tablet by mouth 2 (two) times a day. 0 06/21/2022 Active ciprofloxacin (CIPRO) 500 mg tablet 0 06/14/2022 Active HYDROcodone-acetamin ophen (NORCO) 5-325 mg per tablet 0 06/27/2022 Active METHOCARBAMOL ORAL 0 06/27/2022 Active FUROSEMIDE ORAL 20 mg 2 (two) times a day. 0 07/15/2022 Active ACETAMINOPHEN ORAL 1,300 mg 2 (two) times a day. 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/19/2022 Cancer Staging:Clinical stage from 02/18/2022:Stage I(cT1, cN0, cM0) - Unsigned Diabetes Mellitus NOS 02/15/2022 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 Overview: LVEF 20-25% per TTE 12/07/2021 - etiology unclear 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 Hypertension 08/29/2011 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 No 05/17/2022 Within the last year, have y ou been humiliated or emotionally abused in other ways by your partner or ex-partner? No Within the last year, have y ou been kicked, hit, slapped, or otherwise physically hurt by your partner or ex-partner? No 05/17/2022 Within the last year, have y ou been raped or forced to have any kind of sexual activity by your partner or ex-partner? No 05/17/2022 Social Connection and Isolat ion Panel [NHANES] Answer Date Recorded In a typical week, how many times do you talk on the phone with family, friends, or neighbors? More than three times a week 05/17/2022 How often do you get togethe r with friends or relatives? Three times a week 05/17/2022 How often do you attend [facility] or moravian services? Patient declined 05/17/2022 Do you belong to any clubs o r organizations such as restoration groups, unions, fraternal or athletic groups, or school groups? No 05/17/2022 How often do you attend meet ings of the clubs or organizations you belong to? Patient declined 05/17/2022 Are you , , di vorced, , never , or living with a partner? 05/17/2022 AUDIT-C Answer Date Recorded Q1: How often do you have a drink containing alc ohol? Monthly or less 05/17/2022 Q2: How many drinks containi ng alcohol do you have on a typical day when you are drinking? Patient declined 05/17/2022 Q3: How often do you have si x or more drinks on one occasion? Patient declined 05/17/2022 Overall Financial Resource Strain (CARDIA) Answe r Date Recorded How hard is it for you to pa y for the very basics like food, housing, medical care, and heating? Patient declined 05/17/2022 [facility] of Occupat ional [facility] - Occupational Stress Questionnaire Answer Date Recorded Do you feel stress - tense, restless, nervous, or anxious, or unable to sleep at night because your mind is troubled all the time - these days? Only a little 05/17/2022 Exercise Vital Sign Answer Date Recorde d On average, how many days pe r week do you engage in moderate to strenuous exercise (like a brisk walk)? 0 days 05/17/2022 On average, how many minutes do you engage in exercise at this level? 0 min 05/17/2022 Hunger Vital Sign Answer Date Recorded Within the past 12 months, y ou worried that your food would run out before you got the money to buy more. Never true 05/17/20 22 Within the past 12 months, t he food you bought just didn't last and you didn't have money to get more. Never true 05/17/2022 PRAPARE - Transportation Answer Date Re corded In the past 12 months, has l ack of transportation kept you from medical appointments or from getting medications? No 05/17/2022 In the past 12 months, has l ack of transportation kept you from meetings, work, or from getting things needed for daily living? Patient declined 05/17/2022 Housing Stability Vital Sign Answer Jeremi e Recorded In the last 12 months, was t here a time when you were not able to pay the mortgage or rent on time? Patient refused 05/17/20 In the last 12 months, how many places have you lived? 1 05/17/2022 In the last 12 months, was t here a time when you did not have a steady place to sleep or slept in a custodial (including now)? No 05/17/2022 Nutrition Answer Date Recorded Nutrition: EVOO Fat Source Yes 05/17 On average, how many serving s of fruits and vegetables do you eat per day (serving size is equal to 1 cup or approximately the size of a tennis ball)? 2-3 05/17/2022 Dental Answer Date Recorded Dental: Regular Dentist Yes 05/17/20 Employment Answer Date Recorded Employment status Retired 05/17/2022 Education Answer Date Recorded What is the highest level of school you have completed or the highest degree you have received? 12th grade 05/17/2022 Sex and Gender Information Value Date Recorded Sex Assigned at Male 09/10/2018 8:41 AM NONDESTRUCTIVE TESTER Gender Identity Male 09/10/2018 8:41 AM NONDESTRUCTIVE TESTER Sexual Orientation Choose not to disclose 2017 8:41 AM NONDESTRUCTIVE TESTER Last Filed Vital Signs Vital Sign Reading Time Taken Comments Blood Pressure 112/52 09/06/2022 1:56 PM NONDESTRUCTIVE TESTER Pulse 42 09/06/2022 1:56 PM NONDESTRUCTIVE TESTER Temperature 36 ??C (96.8 ??F) 08/20/2022 12:38 PM CDT Respiratory Rate 16 08/20/2022 1:30 PM CDT Oxygen Saturation 91% 08/20/2022 1:30 PM CDT Inhaled Oxygen Concentration - - Weight 75 kg (165 lb 3.8 oz) 09/06/2022 1:56 PM NONDESTRUCTIVE TESTER Height 167.1 cm (5' 5.79) 09/06/2022 1:56 PM CS T Body Mass Index 26.84 09/06/2022 1:56 PM NONDESTRUCTIVE TESTER Plan of Treatment Not on file Advance Directives For more information, please contact: [phone] Latest Code Status on File Code Status Date Activated Date Inactivated Comments DNR/DNI 08/01/2022 7:14 PM 08/02/2022 4:03 PM Code Status History Code Status Date Activated Date Inactivated Comments Full Code 08/01/2022 6:20 PM 08/01/2022 7:14 PM Question Answer Comments Full Code: Discussed DNR/DNI 02/20/2022 1:42 PM 02/22/2022 10:39 PM DNR/DNI 02/20/2022 1:42 PM 02/20/2022 1:42 PM Care Teams Camp Assistant Relationship Specialty Start Date End Date Elsewhere, Pcp PCP - General Internal Medicine 01/14/22
--- OUTSIDE RECORDS SUMMARY | 2023-11-06 14:15 | XMS_ITS | Clinical Summary ---
Author Name Unknown Organization [facility] Address [address] [place] [address] Care Team Providers Care Furnace Liner Name Role Phone Elsewhere, Pcp Primary Care Provider Unavailabl e Source Comments Patient records contain information from all sites at [facility]. For routine questions regarding patient records, call [phone] during business hours, M-F 8:00 AM - 5:00 PM Central Time. Record requests for emergency care only can be directed to [phone] at any time.[facility] Allergies Active Allergy Reactions Criticality Noted [...] week 05/17/2022 How often do you attend [facility] or adventism services? Patient declined 05/17/2022 Do you belong to any clubs o r organizations such as episcopal groups, unions, fraternal [...] medical care, and heating? Patient declined 05/17/2022 [facility] of Occupat ional [facility] - Occupational Stress Questionnaire Answer Date Recorded [...] or slept in a halfway (including now)? No 05/17/2022 Nutrition Answer Date [...] Sex Assigned at Male 09/10/2018 8:41 AM BAND SAWMILL OPERATOR Gender Identity Male 09/10/2018 8:41 AM BAND SAWMILL OPERATOR Sexual Orientation Choose not to disclose 2017 8:41 AM BAND SAWMILL OPERATOR Last Filed Vital Signs Vital Sign Reading Time Taken Comments Blood Pressure 112/52 09/06/2022 1:56 PM BAND SAWMILL OPERATOR Pulse 42 09/06/2022 1:56 PM BAND SAWMILL OPERATOR Temperature 36 ??C (96.8 ??F) 08/20/2022 12:38 PM CDT Respiratory Rate 16 08/20/2022 1:30 PM CDT Oxygen Saturation 91% 08/20/2022 1:30 PM CDT Inhaled Oxygen Concentration - - Weight 75 kg (165 lb 3.8 oz) 09/06/2022 1:56 PM BAND SAWMILL OPERATOR Height 167.1 cm (5' 5.79) 09/06/2022 1:56 PM CS T Body Mass Index 26.84 09/06/2022 1:56 PM BAND SAWMILL OPERATOR Plan of Treatment Health Maintenance Due Date Last Done Comments Depression Monitoring (PHQ-9) 1935 Diabetic Office Visit with F oot Exam 1935 Dilated Eye Exam 1935 Urine Albumin 1935 Zoster Vaccines (1 of 2) 03/30/2014 02/02/2014 DTaP,Tdap,and Td Vaccines (1 - Tdap) 12/08/2019 12/07/2019 COVID-19 Vaccine (3 - Modern a risk series) 03/09/2021 02/09/2021, 01/10/2021 Influenza Vaccine (#1) 2023 , 07/26/2019, 07/20/2018, Additional history exists Hemoglobin A1C 08/30/2023 02/27/2023, 08/02/2022 Fall Risk Screen (Annual) 10/20/2023 Creatinine Level (Kidney Fun ction Test) 08/04/2024 08/04/2023, 04/09/2023, 03/28/2023, Additional history exists Potassium Level 08/04/2024 08/04/2023, 03/21, 03/28/2023, Additional history exists Sodium Level 08/04/2024 08/04/2023, 03/21, 03/28/2023, Additional history exists Pneumococcal vaccine (65+ years) Completed 03/29/20 15, 03/20/2008 Advance Directives For more information, please contact: [phone] Latest Code Status on File Code Status Date Activated Date Inactivated Comments DNR/DNI 08/01/2022 7:14 PM 08/02/2022 4:03 PM Code Status History Code Status Date Activated Date Inactivated Comments Full Code 08/01/2022 6:20 PM 08/01/2022 7:14 PM Question Answer Comments Full Code: Discussed DNR/DNI 02/20/2022 1:42 PM 02/22/2022 10:39 PM DNR/DNI 02/20/2022 1:42 PM 02/20/2022 1:42 PM Care Teams Furnace Liner Relationship Specialty Start Date End Date Elsewhere, Pcp PCP - General Internal Medicine 01/14/22
--- OUTSIDE RECORDS SUMMARY | 2023-11-06 14:15 | XMS_ITS | Encounter Summary ---
Author Name Unknown Organization [facility] Address [address] [place] [address] Care Team Providers Care Cashier Tube Room Name Role Phone Elsewhere, Pcp Primary Care Provider Unavailabl e Encounter Details Date Type Department Care Team (Latest Contact Info) Description 07/31/2022 Intake [facility] Social History Tobacco Use Types Packs/Day Years [...] week 05/17/2022 How often do you attend chur ch or taoism services? Patient declined 05/17/2022 Do you belong to any clubs o r organizations such as adventism groups, unions, fraternal [...] medical care, and heating? Patient declined 05/17/2022 [facility] - Occupational Stress Questionnaire Answer Date Recorded [...] or slept in a retirement (including now)? No 05/17/2022 Nutrition Answer Date [...] Sex Assigned at Male 09/10/2018 8:41 AM NUTRITION CONSULTANT Gender Identity Male 09/10/2018 8:41 AM NUTRITION CONSULTANT Sexual Orientation Choose not to disclose 2017 8:41 AM NUTRITION CONSULTANT documented as of this encounter Last Filed Vital Signs Vital Sign Reading Time Taken Comments Blood Pressure 130/63 08/01/2022 5:54 PM CDT Pulse - - Temperature 36.8 ??C (98.2 ??F) 08/01/2022 5:54 PM CD T Respiratory Rate 20 08/01/2022 5:54 PM CDT Oxygen Saturation 94% 08/01/2022 5:54 PM CDT Inhaled Oxygen Concentration - - Weight - - Height - - Body Mass Index - - documented in this encounter Plan of Treatment Not on file documented as of this encounter Visit Diagnoses Not on filedocumented in this encounter Care Teams Cashier Tube Room Relationship Specialty Start Date End Date Elsewhere, Pcp PCP - General Internal Medicine 01/14/22 documented as of this encounter
--- OUTSIDE RECORDS SUMMARY | 2023-11-06 14:15 | XMS_ITS | Clinical Summary ---
Author Name Unknown Organization [facility] Address [place], [place] [address] Care Team Providers Care Music Agent Name Role Phone Slava Edwards MD Primary Care Provider [phone] Allergies Active Allergy Reactions Criticality Noted Date Comments Beta-Blockers (Beta-Adrenerg ic Blocking Agts) Bradycardia 12/27/2021 Penicillins *Unknown 12/27/2021 Medications Medication Sig Dispensed Refills Start Date End Date Status HYDROXYUREA ORAL Take 1,500-2,000 mg by mouth once daily. 2000 mg Friday, Friday, Friday; 1500 mg Friday, Friday, Friday, 0 Active omeprazole 20 mg tablet Take 20 mg by mouth once daily. 0 Active glipiZIDE (GLUCOTROL) 10 mg tablet Take 10 mg by mouth once daily before a meal. 0 Active cholecalciferol, vitamin D3, (VITAMIN D3 ORAL) Take 2,000 mg by mouth once every other day. 0 Active buPROPion (WELLBUTRIN XL) 300 mg Extended-Release tablet Take 300 mg by mouth every morning. 0 Active nitroglycerin (NITROSTAT) 0.4 mg sublingual tabletIndications:Hy perlipidemia LDL goal <70 Place 1 Tablet (0.4 mg) under the tongue every 5 minutes if needed for Chest Pain. 25 Tablet 3 01/08/2022 Active tamsulosin (FLOMAX) 0.4 mg capsule Take 0.4 mg by mouth. 0 06/14/2022 Active levothyroxine (SYNTHROID) 150 mcg tablet Take 150 mcg by mouth once daily. 0 08/20/2022 Active finasteride (PROSCAR) 5 mg tablet Take 5 mg by mouth. 0 06/14/2022 Active amLODIPine (NORVASC) 2.5 mg tabletIndications:Hy pertension Take 1 tablet by mouth once daily 90 Tablet 3 09/03/2022 Active dapagliflozin (Farxiga) 10 mg tabletIndications:Ch ronic systolic heart failure (HC) Take 1 Tablet (10 mg) by mouth once daily. 30 Tablet 11 10/07/2022 Active Active Problems Problem Noted Date Diagnosed Date Hematuria 04/09/2023 Hypertension 01/08/2022 Diabetes mellitus type 2 in [...] drink = 0.6 oz pur e alcohol) rare Social Connections Answer Date Recorded Frequency of Communication with Friends and Fami ly Not on file 12/21/2021 Sex and Gender Information Value Date Recorded Sex Assigned at Not on file Gender Identity Not on file Sexual Orientation Not on file Obstetrics History Last Filed Vital Signs Vital Sign Reading Time Taken Comments Blood Pressure 121/80 04/09/2023 12:47 PM CDT Pulse 70 04/09/2023 12:47 PM CDT Temperature 36.3 ??C (97.4 ??F) 04/09/2023 10:21 AM C DT Respiratory Rate 16 04/09/2023 10:21 AM CDT Oxygen Saturation 90% 04/09/2023 12:50 PM CDT Inhaled Oxygen Concentration - - Weight 72.1 kg (159 lb) 04/09/2023 10:21 AM CDT Height 168.9 cm (5' 6.5) 04/09/2023 10:21 AM CD T Body Mass Index 25.28 04/09/2023 10:21 AM CDT Plan of Treatment Health Maintenance Due Date Last Done Comments Pneumococcal series for age 65+ (1 of 2 - PCV) 1943 Tdap 1948 Depression screening for age 12+ 1949 Zoster (shingles) series for age 50+ (1 of 2) 1956 Tetanus booster 1957 Medicare Wellness for age 65+ 2002 COVID-19 vaccine series (3 - Moderna risk series) 03/09/2021 02/09/2021, 01/10/2021 Influenza for age 65+ 06/20/2023 BMI (ht and wt on same day) for age 18+ 08/23/2023 1 10/23/2021 Advance Directives Documents on File Type Date Recorded Patient Human Resources Intern Expl anation Healthcare Directive 08/02/2021 021 Latest Code Status on File Code Status Date Activated Date Inactivated Comments Full Code 01/08/2022 11:08 AM 01/08/2022 6:14 PM Question Answer Comments Code Status Discussion: Reviewed Preferences Care Teams Music Agent Relationship Specialty Start Date End Date Slava Edwards MD [address] [place] [id number] PCP - General Family Practice 12/12/21
--- OUTSIDE RECORDS SUMMARY | 2023-11-06 14:15 | XMS_ITS | Clinical Summary ---
Author Name Unknown Organization [facility] Address [address] [place] [id number] Care Team Providers Care [employer] Flatbed Truck Driver Name Role Phone Yamila English MD Primary Care Provider [phone] Source Comments You are receiving this document as you are listed as the primary care provider,follow-up provider, or the patient has been referred to you for consultation.This is in compliance with the Medicare and[facility] EHR Incentive Program,which states Providers who transition their patient to another setting of careor provider of care or refers their patient to another provider of care shouldprovide summary care record for each transition of care or referral. formerly [facility] Allergies Active Allergy Reactions Criticality Noted Date Comments Penicillins 05/02/2019 Medications Medication Sig Dispensed Refills Start Date End Date Status ammonium lactate (AMLACTIN) 12 % cream 0 02/16/2019 Act giles GLIPIZIDE XL 5 MG 24 hour release tablet Take 5 mg by mouth daily. 2 03/23/2019 Active hydroxyurea (HYDREA) 500 MG capsule 0 03/01/2019 Active lisinopril-hydrochloro thiazide (PRINZIDE;ZESTORETIC) 10-12.5 MG tablet Take 1 Tablet by mouth daily. 2 03/28/2019 Active Active Problems No known active problems Social History Tobacco Use Types Packs/Day Years Used Date Smoking Tobacco: Never Smokeless Tobacco: Never Sex and Gender Information Value Date Recorded Sex Assigned at Not on file Gender Identity Not on file Sexual Orientation Not on file Last Filed Vital Signs Vital Sign Reading Time Taken Comments Blood Pressure 130/79 05/02/2019 4:34 PM CDT Pulse - - Temperature 36.4 ??C (97.5 ??F) 05/02/2019 4:34 PM CD T Respiratory Rate - - Oxygen Saturation - - Inhaled Oxygen Concentration - - Weight 87.5 kg (193 lb) 05/02/2019 4:34 PM CDT Height 177.8 cm (5' 10) 05/02/2019 4:34 PM CDT Body Mass Index 27.69 05/02/2019 4:34 PM CDT Plan of Treatment Health Maintenance Due Date Last Done Comments Medicare Annual Wellness Visit 1935 COVID-19 Vaccine (#1) 1935 Pneumococcal 65+ Yrs (1 - PCV) 2002 Zoster/Shingles (2 of 3) 03/30/2014 02/02/2014 DTaP/Tdap/Td (1 - Tdap) 12/08/2019 12/07/2019 Influenza (#1) 2023 07/26/2019, 1010/2017, 07/15/2017, Additional history exists HepA Aged Out 08/24/2014, 02/02/2014 No lo nger eligible based on patient's age to complete this topic HepB Aged Out No longer eligi ble based on patient's age to complete this topic Hib Aged Out No longer eligi ble based on patient's age to complete this topic IPV (Polio) Aged Out No longer eligi ble based on patient's age to complete this topic MCV4 Aged Out No longer eligi ble based on patient's age to complete this topic Care Teams [employer] Flatbed Truck Driver Relationship Specialty Start Date End Date Yamila English MD [address] [place] [id number] PCP - General 10/11/13
--- OUTSIDE RECORDS SUMMARY | 2023-11-06 14:15 | XMS_ITS ---
Author Name Unknown Organization [facility] Address [address] [place] [address] Care Team Providers Care Home Specialist Name Role Phone Elsewhere, Pcp Primary Care Provider Unavailabl e Active Problems Problem Noted Date Diagnosed Date [...] No past plan information found. Radiation Treatments * Plan Last Treated On Elapsed Days Fractions Treated Prescribed Fraction Dose Prescribed Total Dose [id number] 04/19/2022 17 6 of 6 600 cGy 3,600 cGy Reference Point Last Treated On Elapsed Days Session Dose Total Dose [id number] 04/19/2022 17 600 cGy 3,600 cGy Lifetime Dose Tracking * Chemical Lifetime Dose Automatic Entry Manual Entr y Radiation 213.28 mGy 213.28 mGy 0 mGy Fluoro Time 10.5 minutes 10.5 minutes 0 minutes DAP (uGy-m2) 3,896.46 uGy-m2 3,896.46 uGy-m2 0 uGy-m2
[2023-11-06 18:00] LABS: NT Pro B Type NatriureticPept* 1410 pg/mL
== END 2023-11-06 14:00 | disposition home or self-care (01) ==
LOC: NPINS 13:59
PROVIDERS: PCP Family Medicine; Visit Provider Internal Medicine Advanced Heart Failure and Transplant Cardiology
DX: I50.9 Heart failure, unspecified (principal)
CPT/HCPCS: 80048; 83615; 83880; 87086

== ENCOUNTER 2023-12-11 09:20 | Outpatient (CLI) | payer MEDICARE, OTHER, SELFPAY | END 2023-12-11 09:21 | disposition home or self-care (01) | LOC: NFLDREF 12-23 19:52 | PROVIDERS: PCP Family Medicine; Referring Provider Family Medicine; Visit Provider Family Medicine | DX: D46.9 Myelodysplastic syndrome, unspecified (principal); I50.22 Chronic systolic (congestive) heart failure; E11.9 Type 2 diabetes mellitus without complications; I42.8 Other cardiomyopathies; Z93.6 Other artificial openings of urinary tract status; R82.90 Unspecified abnormal findings in urine | CPT/HCPCS: 80048; 83880; 84443; 87086; 87186 ==

== ENCOUNTER 2023-12-24 10:31 | Outpatient (CLI) | payer MEDICARE, OTHER, SELFPAY | END 2023-12-24 10:32 | disposition home or self-care (01) | LOC: NFLDREF 01-07 08:58 | PROVIDERS: PCP Family Medicine; Referring Provider Family Medicine; Visit Provider Family Medicine | DX: N39.0 Urinary tract infection, site not specified (principal) | CPT/HCPCS: 87086 ==

== ENCOUNTER 2024-01-08 10:28 | Outpatient (CLI) | payer MEDICARE, OTHER, SELFPAY | END 2024-01-08 10:29 | disposition home or self-care (01) | LOC: NFLDREF 01-09 07:30 | PROVIDERS: PCP Family Medicine; Referring Provider Family Medicine; Visit Provider Family Medicine | DX: D46.9 Myelodysplastic syndrome, unspecified (principal); N18.31 Chronic kidney disease, stage 3a; N39.0 Urinary tract infection, site not specified | CPT/HCPCS: 80048; 82607; 83880; 87086 ==